=== PATIENT | male | born 1955 | race American Indian/Alaskan Native ===

== ENCOUNTER 2017-11-25 09:20 | Outpatient (CLI) | payer OTHER ==
[2017-11-25 10:16] LABS: Blood Urea Nitrogen 15 mg/dL (9-20)
--- NOTE | 2017-11-25 11:39 | Cat Scan Report ---
CT HEAD WITH AND WITHOUT CONTRAST: HISTORY: Headache, possible mass. COMPARISON: None at this facility. Serial contiguous axial images were obtained through the cranium, both before and after the administration of intravenous contrast material. Left frontotemporal craniotomy changes are identified. There is a moderate sized area of cortical encephalomalacia in the posterior left frontal lobe which appears to represent a previous surgical site. There is no evidence for abnormal enhancement following IV contrast. No mass is identified. The remaining brain parenchyma demonstrates normal attenuation. No evidence for hemorrhage or extra-axial fluid collections. No chronic infarct. Ventricular size is within normal limits. The mastoid air cells and visualized portions of the sinuses are normal. IMPRESSION: Postsurgical changes in the left posterolateral frontal lobe as described. No acute process or mass is identified.
== END 2017-11-25 09:21 | disposition home or self-care (01) ==
LOC: CT 09:20
PROVIDERS: ATTEND Nurse Practitioner
DX: Z98.890 Other specified postprocedural states (principal)
CPT/HCPCS: 36415; 70470; 82565; 84520; Q9967

== ENCOUNTER 2019-07-17 10:20 | Inpatient (IN) | payer MEDICAID ==
[2019-07-17] MEDS ORDERED: LORazepam 2 MG/ML VIAL ONE ×2 (10:38→14:45)
[2019-07-17] MEDS ORDERED: SODIUM CHLORIDE 0.9% 1000 ML 1,000 ML IV ONE (10:40)
[2019-07-17] MEDS ORDERED: LORazepam 2 MG/ML VIAL IV ONE ×3 (10:41→13:04)
--- NOTE | 2019-07-17 11:09 | XRay Report ---
CHEST 1 VIEW 10:39 AM INDICATION / CLINICAL INFORMATION: Altered mental status and weakness.. COMPARISON: 06/19/19. FINDINGS: SUPPORT DEVICES: None. HEART / MEDIASTINUM: The heart size and pulmonary vasculature are normal. The aorta is normal in beto minnie. LUNGS / PLEURA: No significant pulmonary or pleural abnormality. No pneumothorax. ADDITIONAL FINDINGS: No significant additional findings. IMPRESSION: No acute abnormality or significant change. Signer Name: Papi Messer MD Signed: 07/17/2019 11:04 AM Workstation Name: [id number]
[2019-07-17 11:23] LABS: Basophils # (Auto) 0.1 K/mm3 (0.0-0.1); Basophils % (Auto) 1.1 % (0.0-1.8); Eosinophils # (Auto) 0.1 K/mm3 (0.0-0.4); Eosinophils % (Auto) 1.3 % (0.0-4.3); Hematocrit 40.1 % (35.5-45.6); Hemoglobin 14.1 gm/dl (11.8-15.2); Lymphocytes # (Auto) 1.4 K/mm3 (1.2-5.4); Lymphocytes % (Auto) 19.3 % (13.4-35.0); Mean Corpuscular HGB Conc 35 % (32-34); Mean Corpuscular Volume 96 fl (84-94); Monocytes # (Auto) 0.4 K/mm3 (0.0-0.8); Monocytes % (Auto) 6.3 % (0.0-7.3); Platelet Count 212 K/mm3 (140-440); Red Blood Count 4.17 M/mm3 (3.65-5.03); Red Cell Distribution Width 13.5 % (13.2-15.2)
[2019-07-17 11:25] LABS: ABG Base Excess -0.4 mmol/L (-2.0-3.0); ABG HCO3 24.2 mmol/L (20.0-26.0); ABG Methemoglobin 0.5 % (0.0-1.5); ABG Oxygen Saturation 97.3 % (95.0-99.0); ABG PCO2 39.7 mm Hg; ABG PH 7.404 pH Units (7.350-7.450); ABG PO2 91.1 mm Hg (80.0-90.0)
[2019-07-17 11:46] LABS: Alanine Aminotransferase 31 units/L (7-56); Albumin 3.2 g/dL (3.9-5); BUN/Creatinine Ratio 15; Blood Urea Nitrogen 18 mg/dL (9-20); Hemolysis Index 48
[2019-07-17] MEDS ORDERED: chlordiazePOXIDE 25 MG CAP PO PRN ×2 (11:52)
[2019-07-17] MEDS ORDERED: HALOPERIDOL LACTATE 5 MG/1 ML INJ IV PRN (11:52)
[2019-07-17] MEDS ORDERED: LORazepam 2 MG/ML VIAL IV PRN ×3 (11:52)
--- NOTE | 2019-07-17 12:36 | Cat Scan Report ---
NONENHANCED CT SCAN OF THE HEAD: INDICATION / CLINICAL INFORMATION: 63 years Male; ams. TECHNIQUE: Routine CT head without contrast. All CT scans at this location are performed using CT dos e reduction for ALARA by means of automated exposure control. COMPARISON: CT scan of the head from 06/19/2019 and 11/25/2017. FINDINGS: BRAIN / INTRACRANIAL CONTENTS: CT findings remain unchanged. Bony remodeling is seen in the left parietal bone. Encephalomalacia is seen in the lateral left front al lobe, lateral anterior parietal lobe. These findings remain unchanged. No acute hemorrhage, mass effect, midline shift, hydrocephalus, or acute, large territorial infarct. Confluent periventricular low attenuation areas are seen in the lateral ventricles probably due to m ild vascular disease. CRANIOCERVICAL JUNCTION: No significant abnormality. ORBITS: Bony remodeling is seen along the medial wall of right orbit. Old healed fracture of the righ t orbital floor seen. Ocular globes and retrobulbar are spaces are normal. SINUSES / MASTOIDS: No significant abnormality of the visualized paranasal sinuses or mastoid air gagandeep ls. ADDITIONAL FINDINGS: None. IMPRESSION: CT findings remain unchanged No acute parenchymal lesion Encephalomalacia in the left lateral frontal and parietal lobes Signer Name: Jean Paul Lu MD Signed: 07/17/2019 12:32 PM Workstation Name: [id number]
[2019-07-17 12:46] LABS: INR 0.92 (0.87-1.13); Partial Thromboplastin Time 26.2 Sec. (24.2-36.6)
[2019-07-17 12:54] LABS: Bilirubin,Urine NEG (Negative); Blood,Urine SM (Negative); Color,Urine Straw (Yellow); Urobilinogen,Urine < 2.0 mg/dL (<2.0); WBC,Urine < 1.0 /HPF (0.0-6.0)
[2019-07-17 12:56] LABS: Amphetamine Screen,Urine PRESUMPTIVE NEGATIVE; Benzodiazepines Screen,Urine PRESUMPTIVE NEGATIVE; Cannabinoid Screen,Urine PRESUMPTIVE NEGATIVE; Methadone Screen,Urine PRESUMPTIVE NEGATIVE; Opiate Screen,Urine PRESUMPTIVE NEGATIVE
--- NOTE | 2019-07-17 13:04 | Emergency Department Report ---
ED General Adult HPI - General Chief complaint: Hyperglycemia Stated complaint: HYPERGLYCEMIA Time Seen by Provider: 07/17/19 10:37 Source: EMS Mode of arrival: Stretcher Limitations: No Limitations - History of Present Illness Initial comments: The patient presents to the emergency department via EMS with a chief complaint initially of right upper extremity numbness that started 3 days ago. Upon the patient's arrival to emergency department he began to have seizure-like activity. Patient does not have a history of seizures. Upon the patient being treated for the seizure he became responsive and informed us that he drinks alcohol daily and his last drink was yesterday. Patient also had elevated glucose on initial presentation. Patient denies chest pain, shortness breath, headache. -: Gradual Location: upper extremity Radiation: non-radiation Quality: other (numbness) Consistency: constant Improves with: none Worsens with: none Associated Symptoms: denies other symptoms Treatments Prior to Arrival: none - Related Data Previous Rx's Medication Instructions Recorded Last Taken Type FLUoxetine [PROzac] 20 mg PO QDAY #14 capsule 06/23/19 Unknown Rx Insulin NPH, Human [NovoLIN N] 20 unit SUB-Q BIDDIAB 30 Days #10 06/23/19 Unknown Rx ml traZODone [Desyrel] 50 mg PO QHS #10 tablet 06/23/19 Unknown Rx Folic Acid 1 mg PO DAILY #30 tablet 06/25/19 Unknown Rx Nicotine [Habitrol] 14 mg TD DAILY #30 patch 06/25/19 Unknown Rx Thiamine [Vitamin B-1] 100 mg PO QDAY #30 tablet 06/25/19 Unknown Rx Allergies Allergy/AdvReac Type Severity Reaction Status Date / Time No Known Allergies Allergy Verified 06/19/19 17:53 ED Review of Systems ROS: Stated complaint: HYPERGLYCEMIA Other details as noted in HPI Comment: All other systems reviewed and negative Constitutional: denies: chills, fever Eyes: denies: eye pain, eye discharge, vision change ENT: denies: ear pain, throat pain Respiratory: denies: cough, shortness of breath, wheezing Cardiovascular: denies: chest pain, palpitations Endocrine: no symptoms reported Gastrointestinal: denies: abdominal pain, nausea, diarrhea Genitourinary: denies: urgency, dysuria Musculoskeletal: denies: back pain, joint swelling, arthralgia Skin: denies: rash, lesions Neurological: denies: headache, weakness, paresthesias Psychiatric: denies: anxiety, depression Hematological/Lymphatic: denies: easy bleeding, easy bruising ED Past Medical Hx - Past Medical History Hx Hypertension: Yes Hx Diabetes: Yes Hx Psychiatric Treatment: Yes (Paranoid Schizophrenia) - Social History Smoking Status: Current Every Day Smoker Substance Use Type: Alcohol, Cocaine - Medications Home Medications: Home Medications Medication Instructions Recorded Confirmed Last Taken Type FLUoxetine [PROzac] 20 mg PO QDAY #14 capsule 06/23/19 Unknown Rx Insulin NPH, Human [NovoLIN N] 20 unit SUB-Q BIDDIAB 30 Days #10 06/23/19 Unknown Rx ml traZODone [Desyrel] 50 mg PO QHS #10 tablet 06/23/19 Unknown Rx Folic Acid 1 mg PO DAILY #30 tablet 06/25/19 Unknown Rx Nicotine [Habitrol] 14 mg TD DAILY #30 patch 06/25/19 Unknown Rx Thiamine [Vitamin B-1] 100 mg PO QDAY #30 tablet 06/25/19 Unknown Rx ED Physical Exam - General Limitations: No Limitations General appearance: alert, in no apparent distress - Head Head exam: Present: atraumatic, normocephalic - Eye Eye exam: Present: normal appearance, PERRL, EOMI - ENT ENT exam: Present: mucous membranes moist - Neck Neck exam: Present: normal inspection - Respiratory Respiratory exam: Present: normal lung sounds bilaterally. Absent: respiratory distress - Cardiovascular Cardiovascular Exam: Present: regular rate, normal rhythm. Absent: systolic murmur, diastolic murmur, rubs, gallop - GI/Abdominal GI/Abdominal exam: Present: soft, normal bowel sounds. Absent: distended, tenderness - Rectal Rectal exam: Present: deferred - Extremities Exam Extremities exam: Present: normal inspection - Back Exam Back exam: Present: normal inspection - Neurological Exam Neurological exam: Present: alert, oriented X3, CN II-XII intact. Absent: motor sensory deficit - Psychiatric Psychiatric exam: Present: normal affect, normal mood - Skin Skin exam: Present: warm, dry, intact, normal color. Absent: rash ED Course Vital Signs 07/17/19 07/17/19 07/17/19 10:32 10:42 10:45 Temperature 98 F Pulse Rate 97 H 96 H 97 H Respiratory 11 L 11 L 11 L Rate Blood Pressure 190/112 190/112 O2 Sat by Pulse 97 98 Oximetry 07/17/19 07/17/19 07/17/19 11:00 11:14 11:34 Temperature Pulse Rate 93 H 94 H Respiratory 15 11 L Rate Blood Pressure 204/130 O2 Sat by Pulse 96 94 Oximetry 07/17/19 07/17/19 07/17/19 11:45 12:00 12:15 Temperature Pulse Rate 96 H 95 H 94 H Respiratory 13 13 12 Rate Blood Pressure 195/124 204/129 190/106 O2 Sat by Pulse 100 Oximetry ED Medical Decision Making - Lab Data Result diagrams: 07/17/19 10:59 07/17/19 10:59 Lab Results 07/17/19 07/17/19 07/17/19 Range/Units 10:59 10:59 11:00 WBC 7.1 (4.5-11.0) K/mm3 RBC 4.17 (3.65-5.03) M/mm3 Hgb 14.1 (11.8-15.2) gm/dl Hct 40.1 (35.5-45.6) % MCV 96 H (84-94) fl MCH 34 H (28-32) pg MCHC 35 H (32-34) % RDW 13.5 (13.2-15.2) % Plt Count 212 (140-440) K/mm3 Lymph % (Auto) 19.3 (13.4-35.0) % [place] % (Auto) 6.3 (0.0-7.3) % Eos % (Auto) 1.3 (0.0-4.3) % Baso % (Auto) 1.1 (0.0-1.8) % Lymph # 1.4 (1.2-5.4) K/mm3 [place] # 0.4 (0.0-0.8) K/mm3 Eos # 0.1 (0.0-0.4) K/mm3 Baso # 0.1 (0.0-0.1) K/mm3 Seg Neutrophils % 72.0 H (40.0-70.0) % Seg Neutrophils # 5.1 (1.8-7.7) K/mm3 PT (12.2-14.9) Sec. INR (0.87-1.13) APTT (24.2-36.6) Sec. ABG pH 7.404 (7.350-7.450) pH Units ABG pCO2 39.7 mm Hg ABG pO2 91.1 H (80.0-90.0) mm Hg ABG HCO3 24.2 (20.0-26.0) mmol/L ABG O2 Saturation 97.3 (95.0-99.0) % ABG O2 Content 17.5 (0.0-44) ABG Base Excess -0.4 (-2.0-3.0) mmol/L ABG Hemoglobin 13.2 L (14.0-18.0) gm/dl ABG Carboxyhemoglobin 3.4 (0.0-5.0) % ABG Methemoglobin 0.5 (0.0-1.5) % Oxyhemoglobin 93.5 L (95.0-99.0) % FiO2 32 % Sodium 136 L (137-145) mmol/L Potassium 4.1 (3.6-5.0) mmol/L Chloride 97.9 L (98-107) mmol/L Carbon Dioxide 21 L (22-30) mmol/L Anion Gap 21 mmol/L BUN 18 (9-20) mg/dL Creatinine 1.2 (0.8-1.5) mg/dL Estimated GFR > 60 ml/min BUN/Creatinine Ratio 15 % Glucose 465 H (75-100) mg/dL POC Glucose (70-105) Lactic Acid (0.7-2.0) mmol/L Calcium 9.0 (8.4-10.2) mg/dL Phosphorus 2.90 (2.5-4.5) mg/dL Magnesium 1.90 (1.7-2.3) mg/dL Total Bilirubin 0.50 (0.1-1.2) mg/dL AST 51 H (5-40) units/L ALT 31 (7-56) units/L Alkaline Phosphatase 183 H (35-129) units/L Troponin T 0.012 (0.00-0.029) ng/mL NT-Pro-B Natriuret Pep 1105 H (0-900) pg/mL Total Protein 6.3 (6.3-8.2) g/dL Albumin 3.2 L (3.9-5) g/dL Albumin/Globulin Ratio 1.0 % Urine Color (Yellow) Urine Turbidity (Clear) Urine pH (5.0-7.0) Ur Specific [place] (1.003-1.030) Urine Protein (Negative) mg/dL Urine Glucose (UA) (Negative) mg/dL Urine Ketones (Negative) mg/dL Urine Blood (Negative) Urine Nitrite (Negative) Urine Bilirubin (Negative) Urine Urobilinogen (<2.0) mg/dL Ur Leukocyte Esterase (Negative) Urine WBC (Auto) (0.0-6.0) /HPF Urine RBC (Auto) (0.0-6.0) /HPF U Epithel Cells (Auto) (0-13.0) /HPF Urine Opiates Screen Urine Methadone Screen Ur Barbiturates Screen Ur Phencyclidine Scrn Ur Amphetamines Screen U Benzodiazepines Scrn U Marijuana (THC) Screen Drugs of Abuse Note Plasma/Serum Alcohol (0-0.07) % 07/17/19 07/17/19 07/17/19 Range/Units 11:16 11:53 11:53 WBC (4.5-11.0) K/mm3 RBC (3.65-5.03) M/mm3 Hgb (11.8-15.2) gm/dl Hct (35.5-45.6) % MCV (84-94) fl MCH (28-32) pg MCHC (32-34) % RDW (13.2-15.2) % Plt Count (140-440) K/mm3 Lymph % (Auto) (13.4-35.0) % [place] % (Auto) (0.0-7.3) % Eos % (Auto) (0.0-4.3) % Baso % (Auto) (0.0-1.8) % Lymph # (1.2-5.4) K/mm3 [place] # (0.0-0.8) K/mm3 Eos # (0.0-0.4) K/mm3 Baso # (0.0-0.1) K/mm3 Seg Neutrophils % (40.0-70.0) % Seg Neutrophils # (1.8-7.7) K/mm3 PT 12.5 (12.2-14.9) Sec. INR 0.92 (0.87-1.13) APTT 26.2 (24.2-36.6) Sec. ABG pH (7.350-7.450) pH Units ABG pCO2 mm Hg ABG pO2 (80.0-90.0) mm Hg ABG HCO3 (20.0-26.0) mmol/L ABG O2 Saturation (95.0-99.0) % ABG O2 Content (0.0-44) ABG Base Excess (-2.0-3.0) mmol/L ABG Hemoglobin (14.0-18.0) gm/dl ABG Carboxyhemoglobin (0.0-5.0) % ABG Methemoglobin (0.0-1.5) % Oxyhemoglobin (95.0-99.0) % FiO2 % Sodium (137-145) mmol/L Potassium (3.6-5.0) mmol/L Chloride (98-107) mmol/L Carbon Dioxide (22-30) mmol/L Anion Gap mmol/L BUN (9-20) mg/dL Creatinine (0.8-1.5) mg/dL Estimated GFR ml/min BUN/Creatinine Ratio % Glucose (75-100) mg/dL POC Glucose 434 H (70-105) Lactic Acid (0.7-2.0) mmol/L Calcium (8.4-10.2) mg/dL Phosphorus (2.5-4.5) mg/dL Magnesium (1.7-2.3) mg/dL Total Bilirubin (0.1-1.2) mg/dL AST (5-40) units/L ALT (7-56) units/L Alkaline Phosphatase (35-129) units/L Troponin T < 0.010 (0.00-0.029) ng/mL NT-Pro-B Natriuret Pep (0-900) pg/mL Total Protein (6.3-8.2) g/dL Albumin (3.9-5) g/dL Albumin/Globulin Ratio % Urine Color (Yellow) Urine Turbidity (Clear) Urine pH (5.0-7.0) Ur Specific [place] (1.003-1.030) Urine Protein (Negative) mg/dL Urine Glucose (UA) (Negative) mg/dL Urine Ketones (Negative) mg/dL Urine Blood (Negative) Urine Nitrite (Negative) Urine Bilirubin (Negative) Urine Urobilinogen (<2.0) mg/dL Ur Leukocyte Esterase (Negative) Urine WBC (Auto) (0.0-6.0) /HPF Urine RBC (Auto) (0.0-6.0) /HPF U Epithel Cells (Auto) (0-13.0) /HPF Urine Opiates Screen Urine Methadone Screen Ur Barbiturates Screen Ur Phencyclidine Scrn Ur Amphetamines Screen U Benzodiazepines Scrn U Marijuana (THC) Screen Drugs of Abuse Note Plasma/Serum Alcohol (0-0.07) % 07/17/19 07/17/19 07/17/19 Range/Units 11:53 11:53 12:14 WBC (4.5-11.0) K/mm3 RBC (3.65-5.03) M/mm3 Hgb (11.8-15.2) gm/dl Hct (35.5-45.6) % MCV (84-94) fl MCH (28-32) pg MCHC (32-34) % RDW (13.2-15.2) % Plt Count (140-440) K/mm3 Lymph % (Auto) (13.4-35.0) % [place] % (Auto) (0.0-7.3) % Eos % (Auto) (0.0-4.3) % Baso % (Auto) (0.0-1.8) % Lymph # (1.2-5.4) K/mm3 [place] # (0.0-0.8) K/mm3 Eos # (0.0-0.4) K/mm3 Baso # (0.0-0.1) K/mm3 Seg Neutrophils % (40.0-70.0) % Seg Neutrophils # (1.8-7.7) K/mm3 PT (12.2-14.9) Sec. INR (0.87-1.13) APTT (24.2-36.6) Sec. ABG pH (7.350-7.450) pH Units ABG pCO2 mm Hg ABG pO2 (80.0-90.0) mm Hg ABG HCO3 (20.0-26.0) mmol/L ABG O2 Saturation (95.0-99.0) % ABG O2 Content (0.0-44) ABG Base Excess (-2.0-3.0) mmol/L ABG Hemoglobin (14.0-18.0) gm/dl ABG Carboxyhemoglobin (0.0-5.0) % ABG Methemoglobin (0.0-1.5) % Oxyhemoglobin (95.0-99.0) % FiO2 % Sodium (137-145) mmol/L Potassium (3.6-5.0) mmol/L Chloride (98-107) mmol/L Carbon Dioxide (22-30) mmol/L Anion Gap mmol/L BUN (9-20) mg/dL Creatinine (0.8-1.5) mg/dL Estimated GFR ml/min BUN/Creatinine Ratio % Glucose (75-100) mg/dL POC Glucose (70-105) Lactic Acid 1.70 (0.7-2.0) mmol/L Calcium (8.4-10.2) mg/dL Phosphorus (2.5-4.5) mg/dL Magnesium (1.7-2.3) mg/dL Total Bilirubin (0.1-1.2) mg/dL AST (5-40) units/L ALT (7-56) units/L Alkaline Phosphatase (35-129) units/L Troponin T (0.00-0.029) ng/mL NT-Pro-B Natriuret Pep (0-900) pg/mL Total Protein (6.3-8.2) g/dL Albumin (3.9-5) g/dL Albumin/Globulin Ratio % Urine Color Straw (Yellow) Urine Turbidity Clear (Clear) Urine pH 7.0 (5.0-7.0) Ur Specific [place] 1.017 (1.003-1.030) Urine Protein 100 mg/dl (Negative) mg/dL Urine Glucose (UA) >=500 (Negative) mg/dL Urine Ketones Tr (Negative) mg/dL Urine Blood Sm (Negative) Urine Nitrite Neg (Negative) Urine Bilirubin Neg (Negative) Urine Urobilinogen < 2.0 (<2.0) mg/dL Ur Leukocyte Esterase Neg (Negative) Urine WBC (Auto) < 1.0 (0.0-6.0) /HPF Urine RBC (Auto) 1.0 (0.0-6.0) /HPF U Epithel Cells (Auto) < 1.0 (0-13.0) /HPF Urine Opiates Screen Urine Methadone Screen Ur Barbiturates Screen Ur Phencyclidine Scrn Ur Amphetamines Screen U Benzodiazepines Scrn U Marijuana (THC) Screen Drugs of Abuse Note Plasma/Serum Alcohol < 0.01 (0-0.07) % 07/17/19 Range/Units 12:14 WBC (4.5-11.0) K/mm3 RBC (3.65-5.03) M/mm3 Hgb (11.8-15.2) gm/dl Hct (35.5-45.6) % MCV (84-94) fl MCH (28-32) pg MCHC (32-34) % RDW (13.2-15.2) % Plt Count (140-440) K/mm3 Lymph % (Auto) (13.4-35.0) % [place] % (Auto) (0.0-7.3) % Eos % (Auto) (0.0-4.3) % Baso % (Auto) (0.0-1.8) % Lymph # (1.2-5.4) K/mm3 [place] # (0.0-0.8) K/mm3 Eos # (0.0-0.4) K/mm3 Baso # (0.0-0.1) K/mm3 Seg Neutrophils % (40.0-70.0) % Seg Neutrophils # (1.8-7.7) K/mm3 PT (12.2-14.9) Sec. INR (0.87-1.13) APTT (24.2-36.6) Sec. ABG pH (7.350-7.450) pH Units ABG pCO2 mm Hg ABG pO2 (80.0-90.0) mm Hg ABG HCO3 (20.0-26.0) mmol/L ABG O2 Saturation (95.0-99.0) % ABG O2 Content (0.0-44) ABG Base Excess (-2.0-3.0) mmol/L ABG Hemoglobin (14.0-18.0) gm/dl ABG Carboxyhemoglobin (0.0-5.0) % ABG Methemoglobin (0.0-1.5) % Oxyhemoglobin (95.0-99.0) % FiO2 % Sodium (137-145) mmol/L Potassium (3.6-5.0) mmol/L Chloride (98-107) mmol/L Carbon Dioxide (22-30) mmol/L Anion Gap mmol/L BUN (9-20) mg/dL Creatinine (0.8-1.5) mg/dL Estimated GFR ml/min BUN/Creatinine Ratio % Glucose (75-100) mg/dL POC Glucose (70-105) Lactic Acid (0.7-2.0) mmol/L Calcium (8.4-10.2) mg/dL Phosphorus (2.5-4.5) mg/dL Magnesium (1.7-2.3) mg/dL Total Bilirubin (0.1-1.2) mg/dL AST (5-40) units/L ALT (7-56) units/L Alkaline Phosphatase (35-129) units/L Troponin T (0.00-0.029) ng/mL NT-Pro-B Natriuret Pep (0-900) pg/mL Total Protein (6.3-8.2) g/dL Albumin (3.9-5) g/dL Albumin/Globulin Ratio % Urine Color (Yellow) Urine Turbidity (Clear) Urine pH (5.0-7.0) Ur Specific [place] (1.003-1.030) Urine Protein (Negative) mg/dL Urine Glucose (UA) (Negative) mg/dL Urine Ketones (Negative) mg/dL Urine Blood (Negative) Urine Nitrite (Negative) Urine Bilirubin (Negative) Urine Urobilinogen (<2.0) mg/dL Ur Leukocyte Esterase (Negative) Urine WBC (Auto) (0.0-6.0) /HPF Urine RBC (Auto) (0.0-6.0) /HPF U Epithel Cells (Auto) (0-13.0) /HPF Urine Opiates Screen Presumptive negative Urine Methadone Screen Presumptive negative Ur Barbiturates Screen Presumptive negative Ur Phencyclidine Scrn Presumptive negative Ur Amphetamines Screen Presumptive negative U Benzodiazepines Scrn Presumptive negative U Marijuana (THC) Screen Presumptive negative Drugs of Abuse Note Disclamer Plasma/Serum Alcohol (0-0.07) % - Radiology Data Radiology results: report reviewed - Medical Decision Making Patient had a witnessed seizure x2 in the emergency department will loss control of bladder Patient given 2 doses of Ativan IV for the seizure activity. Patient placed on CIWA protocol as it was discovered that he drinks daily with the last drink being yesterday Critical care attestation.: If time is entered above; I have spent that time in minutes in the direct care of this critically ill patient, excluding procedure time. ED Disposition Clinical Impression: Numbness, Observed seizure-like activity Disposition: OP ADMIT IP TO THIS HOSP Is pt being admited?: Yes Does the pt Need Aspirin: Yes Condition: Fair
[2019-07-17 13:12] LABS: Cocaine Screen,Urine PRESUMPTIVE POSITIVE
[2019-07-17] MEDS ORDERED: ASPIRIN 81 MG TAB CHEW PO ONE (13:30)
--- NOTE | 2019-07-17 13:38 | History and Physical Report ---
History of Present Illness Chief complaint: I feel weak on my, right side History of present illness: 63 YO Male with ETOH Dependence, Cocaine Dependence, HTN, DM, Nicotine Dependence.Paranoid Schhizophrenia presents to ED for evaluation. Patient states that he was in his usual state of health approximately 3 days ago. Patient states that around that time he experienced a sudden onset of weakness in his right upper extremity, slurred speech and right-sided weakness. Patient states that he thought he was having a seizure. Patient also reports persistent symptoms over the same timeframe. EMS notified and upon arrival the patient was found to be in distress and subsequently transported to [facility] for further osman luation and care. Patient seen and evaluated in the emergency department. Lab and imaging studies reviewed. Patient found to have neurologic deficit over the past 3 days. But the patient is deemed outside the therapeutic window for TPA. Patient also found to have blood pressure of 204/130, as well as symptoms consistent with alcohol withdrawal seizures, Cocaine dependence. Patient denies fever, chills, chest pain, palpitations, nausea, and vomiting, diarrhea, trauma, skin rash, or recent ill contacts. Prior admission on 06/19/2019 reviewed. All listed medication reconciled at time of admission. UPon reevaluation after a reported fall in the ED, the patient is more confused/lethargic and unable to provide detailed history. Pt found to have Encephalopathy. Patient admitted to [facility] and initiated on CVA protocol as well as alcohol withdrawal protocol. Advanced care planning conducted in ED. Past History Past Medical History: diabetes, hypertension Past Surgical History: No surgical history, Other (Reviewed) Social history: , smoking, alcohol abuse Family history: diabetes, hypertension Medications and Allergies Allergies Allergy/AdvReac Type Severity Reaction Status Date / Time No Known Allergies Allergy Verified 06/19/19 17:53 Home Medications Medication Instructions Recorded Confirmed Last Taken Type FLUoxetine [PROzac] 20 mg PO QDAY #14 capsule 06/23/19 Unknown Rx Insulin NPH, Human [NovoLIN N] 20 unit SUB-Q BIDDIAB 30 Days #10 06/23/19 Unknown Rx ml traZODone [Desyrel] 50 mg PO QHS #10 tablet 06/23/19 Unknown Rx Folic Acid 1 mg PO DAILY #30 tablet 06/25/19 Unknown Rx Nicotine [Habitrol] 14 mg TD DAILY #30 patch 06/25/19 Unknown Rx Thiamine [Vitamin B-1] 100 mg PO QDAY #30 tablet 06/25/19 Unknown Rx Active Meds: Active Medications Chlordiazepoxide HCl (Librium) 50 mg PO Q1H PRN PRN Reason: CIWA-Ar 8-15 Chlordiazepoxide HCl (Librium) 100 mg PO Q1H PRN PRN Reason: CI-Ar 16-25 Haloperidol Lactate (Haldol) 5 mg IV Q1H PRN PRN Reason: Unrespon. to mult. doses BZD's Lorazepam (Ativan) 2 mg IV Q1H PRN PRN Reason: CI-Ar 8-15 Lorazepam (Ativan) 4 mg IV Q1H PRN PRN Reason: CI-Ar 16-25 Lorazepam (Ativan) 4 mg IV Q15MIN PRN PRN Reason: CIWA-Ar >25 Review of Systems Constitutional: no weight loss, no weight gain, no fever, no chills Ears, nose, mouth and throat: no ear pain, no ear discharge, no tinnitis, no decreased hearing, no nose pain, no nasal congestion Cardiovascular: no chest pain, no orthopnea, no palpitations, no rapid/irregular heart beat, no syncope Respiratory: no cough, no cough with sputum Gastrointestinal: nausea, no constipation, no hematemesis, no coffee ground emesis Genitourinary Male: no hematuria, no flank pain, no urinary frequency, no nocturia Rectal: no pain, no incontinence, no bleeding Musculoskeletal: no neck stiffness, no neck pain, no shooting arm pain, no arm numbness/tingling, no low back pain, no leg numbness/tingling Integumentary: no rash, no pruritis, no sores Neurological: weakness, seizures, change in speech, gait dysfunction, motor dist urbance, no numbness, no tingling, no headaches Psychiatric: no anxiety, no memory loss, no change in sleep habits, no sleep disturbances, no insomnia (Frustrated), no hypersomnia Endocrine: no cold intolerance, no heat intolerance, no polyphagia, no excessive thirst, no polydipsia Hematologic/Lymphatic: no easy bruising, no easy bleeding, no lymphadenopathy, no lymphedema, no other (Admission orders) Allergic/Immunologic: no urticaria, no persistent infections, no anaphylaxis, no gluten intolerance Exam - Constitutional Vitals: Temp Pulse Resp BP Pulse Ox 98 F 94 H 12 190/106 100 07/17/19 10:32 07/17/19 12:15 07/17/19 12:15 07/17/19 12:15 07/17/19 12:15 General appearance: Present: mild distress - EENT Eyes: Present: PERRL ENT: hearing intact, clear oral mucosa - Neck Neck: Present: supple, normal ROM - Respiratory Respiratory effort: normal Respiratory: bilateral: CTA - Cardiovascular Heart Sounds: Present: S1 & S2. Absent: rub, click - Extremities Extremities: pulses symmetrical, No edema Peripheral Pulses: within normal limits - Abdominal General gastrointestinal: Present: soft, non-tender, non-distended, normal bowel sounds Male genitourinary: Present: normal - Integumentary Integumentary: Present: clear, warm, dry - Musculoskeletal Musculoskeletal: gait normal, strength equal bilaterally - Psychiatric Psychiatric: appropriate mood/affect, intact judgment & insight - Neurologic Neurologic: CNII-XII intact, moves all extremities Results - Labs CBC & Chem 7: 07/17/19 10:59 07/17/19 10:59 Labs: Abnormal lab results 07/17/19 07/17/19 07/17/19 Range/Units 10:59 10:59 11:00 MCV 96 H (84-94) fl MCH 34 H (28-32) pg MCHC 35 H (32-34) % Seg Neutrophils % 72.0 H (40.0-70.0) % ABG pO2 91.1 H (80.0-90.0) mm Hg ABG Hemoglobin 13.2 L (14.0-18.0) gm/dl Oxyhemoglobin 93.5 L (95.0-99.0) % Sodium 136 L (137-145) mmol/L Chloride 97.9 L (98-107) mmol/L Carbon Dioxide 21 L (22-30) mmol/L Glucose 465 H (75-100) mg/dL POC Glucose (70-105) AST 51 H (5-40) units/L Alkaline Phosphatase 183 H (35-129) units/L NT-Pro-B Natriuret Pep 1105 H (0-900) pg/mL Albumin 3.2 L (3.9-5) g/dL 07/17/19 07/17/19 Range/Units 11:16 13:08 MCV (84-94) fl MCH (28-32) pg MCHC (32-34) % Seg Neutrophils % (40.0-70.0) % ABG pO2 (80.0-90.0) mm Hg ABG Hemoglobin (14.0-18.0) gm/dl Oxyhemoglobin (95.0-99.0) % Sodium (137-145) mmol/L Chloride (98-107) mmol/L Carbon Dioxide (22-30) mmol/L Glucose (75-100) mg/dL POC Glucose 434 H 427 H (70-105) AST (5-40) units/L Alkaline Phosphatase (35-129) units/L NT-Pro-B Natriuret Pep (0-900) pg/mL Albumin (3.9-5) g/dL Assessment and Plan - Patient Problems (1) CVA (cerebral vascular accident) Current Visit: Yes Status: Acute Qualifiers: Precerebral and cerebral artery: middle cerebral artery Laterality of affected vessel: left Plan to address problem: CVA protocol: Admit to IMCU, CT head, neuro check, aspiration precaution, seizure precaution, echocardiogram, carotid Doppler, antiplatelet therapy, physical therapy, Occupational Therapy, speech therapy, lipid therapy, statin therapy. (2) Nicotine dependence Current Visit: Yes Status: Acute Qualifiers: Nicotine product type: cigarettes Substance use status: in withdrawal Qualified Code(s): F17.213 - Nicotine dependence, cigarettes, with withdrawal Plan to address problem: Supportive care, smoking cessation counseling, +15 minutes. (3) Alcohol withdrawal seizure Current Visit: Yes Status: Acute Qualifiers: Complication of substance-induced condition: with perceptual disturbance Qualified Code(s): F10.232 - Alcohol dependence with withdrawal with perceptual disturbance Plan to address problem: CIWA protocol, thiamine, folic acid, multivitamin, neuro check, seizure precautions, supportive care., Blood alcohol level. (4) Cardiomyopathy Current Visit: Yes Status: Acute Plan to address problem: Echo, supportive care, thyroid panel, magnesium level, BNP, submental oxygen, pulse oximetry, chest x-ray. (5) Diabetes Current Visit: Yes Status: Acute Plan to address problem: Sliding scale insulin, Accu-Chek, consistent carbohydrate diet when alert and awake only, hypoglycemia protocol. (6) Cocaine abuse Current Visit: No Status: Acute Plan to address problem: Supportive care, outpatient drug abuse counseling, +15 minutes. (7) Hypertension Current Visit: No Status: Acute Qualifiers: Hypertension type: essential hypertension Qualified Code(s): I10 - Essential (primary) hypertension Plan to address problem: Permissive hypertension overnight, monitor blood pressure every shift, supportive care. Goal systolic blood pressure between 165 and 185 overnight., IV hydralazine every 6 hours as needed for systolic greater than 185. (8) DVT prophylaxis Current Visit: Yes Status: Acute Plan to address problem: SCD to bilateral lower extremities while in bed, prophylactic heparin. (9) Advance care planning Current Visit: Yes Status: Acute Plan to address problem: Patient is full code, disease education conducted in the emergency department, patient knowledges understanding and agreement with current care plan, +30 minutes.
[2019-07-17] MEDS ORDERED: DEXTROSE 50% IN WATER (25GM) 50 ML SYRINGE IV PRN (13:40)
[2019-07-17] MEDS ORDERED: ACETAMINOPHEN 325 MG TAB PO PRN (13:42)
[2019-07-17] MEDS ORDERED: MAGNESIUM HYDROXIDE (MOM) ORAL LIQD UDC PO PRN (13:42)
[2019-07-17] MEDS ORDERED: METOCLOPRAMIDE 10 MG TAB PO PRN (13:42)
[2019-07-17] MEDS ORDERED: PROMETHAZINE 25 MG RECT SUPP PR PRN (13:42)
[2019-07-17] MEDS ORDERED: ONDANSETRON 4 MG/2 ML INJ IV PRN (13:42)
[2019-07-17] MEDS: INSULIN LISPRO 100 UNIT/ML SUB-Q SCH ×2 (14:00→18:03)
[2019-07-17] MEDS ORDERED: THIAMINE 100 MG, FOLIC ACID 1 MG, MULTIPLE VITAMIN INJ, ADULT 10 ML in SODIUM CHLORIDE ... IV ONE (15:00)
[2019-07-17 16:55] LABS: Free T4 (Free Thyroxine) 1.16 ng/dL (0.76-1.46)
[2019-07-17] MEDS: NICOTINE 14 MG/24 HR PATCH TD SCH (17:00)
[2019-07-17] MEDS: levETIRAcetam 500 MG in DEXTROSE 5% IN WATER 100 ML IV SCH (18:02)
[2019-07-18] MEDS ORDERED: SODIUM CHLORIDE 0.9% 1000 ML 1,000 ML IV ONE (02:10)
[2019-07-18] MEDS: INSULIN LISPRO 100 UNIT/ML SUB-Q SCH ×4 (02:35→18:04)
[2019-07-18] MEDS: traZODone 50 MG TAB PO SCH ×2 (02:36→22:04)
[2019-07-18 06:01] LABS: Chol/HDL Ratio 3.41 %
--- NOTE | 2019-07-18 08:45 | Progress Note ---
Subjective Date of service: 07/18/19 Interval history: consult note went over the CT of the head and there is rather large ischemic stroke left MCA erritory extensive with edema of the deep white matter and some re=flow cortical hyperperfision notes suspect stroke is 3-4 days or older b/c of the rather distinct subacute findings will go over the chart for confirmation and leave another note thanks Objective - Vital Sign Vital Signs - 12hr 07/17/19 07/17/19 07/17/19 20:50 21:00 21:10 Temperature Pulse Rate 89 88 88 Pulse Rate [ From Monitor] Respiratory 26 H 11 L 11 L Rate Blood Pressure 158/89 151/92 151/92 O2 Sat by Pulse 100 100 100 Oximetry 07/17/19 07/17/19 07/17/19 21:20 21:30 21:40 Temperature Pulse Rate 87 87 87 Pulse Rate [ From Monitor] Respiratory 11 L 10 L 11 L Rate Blood Pressure 156/89 146/94 146/94 O2 Sat by Pulse 100 100 100 Oximetry 07/17/19 07/17/19 07/17/19 21:50 22:00 22:10 Temperature Pulse Rate 87 88 89 Pulse Rate [ From Monitor] Respiratory 11 L 11 L 9 L Rate Blood Pressure 151/91 152/87 152/87 O2 Sat by Pulse 100 100 100 Oximetry 07/17/19 07/17/19 07/17/19 22:16 22:20 22:30 Temperature Pulse Rate 87 87 86 Pulse Rate [ From Monitor] Respiratory 12 11 L 11 L Rate Blood Pressure 156/94 156/94 149/92 O2 Sat by Pulse 100 100 100 Oximetry 07/17/19 07/17/19 07/17/19 22:40 22:50 23:00 Temperature Pulse Rate 87 86 87 Pulse Rate [ From Monitor] Respiratory 11 L 11 L 10 L Rate Blood Pressure 149/92 147/91 150/90 O2 Sat by Pulse 100 100 Oximetry 07/17/19 07/17/19 07/17/19 23:10 23:20 23:30 Temperature Pulse Rate 86 86 87 Pulse Rate [ From Monitor] Respiratory 11 L 11 L 11 L Rate Blood Pressure 150/90 144/87 138/87 O2 Sat by Pulse 100 100 100 Oximetry 07/17/19 07/17/19 07/18/19 23:40 23:50 00:00 Temperature 97.3 F L Pulse Rate 86 85 87 Pulse Rate [ 84 From Monitor] Respiratory 11 L 10 L 12 Rate Blood Pressure 138/87 151/90 140/88 O2 Sat by Pulse 100 100 100 Oximetry 07/18/19 07/18/19 07/18/19 00:06 00:10 00:20 Temperature 97.3 F L Pulse Rate 88 87 Pulse Rate [ From Monitor] Respiratory 11 L 11 L Rate Blood Pressure 140/88 136/84 O2 Sat by Pulse 100 100 Oximetry 07/18/19 07/18/19 07/18/19 00:30 00:40 00:50 Temperature Pulse Rate 88 89 88 Pulse Rate [ From Monitor] Respiratory 10 L 11 L 10 L Rate Blood Pressure 157/93 157/93 157/93 O2 Sat by Pulse 100 100 100 Oximetry 07/18/19 07/18/19 07/18/19 01:00 01:10 01:20 Temperature Pulse Rate 87 88 87 Pulse Rate [ From Monitor] Respiratory 10 L 11 L 10 L Rate Blood Pressure 153/89 153/89 147/88 O2 Sat by Pulse 100 100 100 Oximetry 07/18/19 07/18/19 07/18/19 01:30 01:40 01:50 Temperature Pulse Rate 87 86 89 Pulse Rate [ From Monitor] Respiratory 10 L 11 L 11 L Rate Blood Pressure 145/85 153/89 154/85 O2 Sat by Pulse 100 100 100 Oximetry 07/18/19 07/18/19 07/18/19 02:00 02:10 02:20 Temperature Pulse Rate 86 90 90 Pulse Rate [ From Monitor] Respiratory 14 12 11 L Rate Blood Pressure 158/92 158/92 164/96 O2 Sat by Pulse 100 100 100 Oximetry 07/18/19 07/18/19 07/18/19 02:30 02:40 02:50 Temperature Pulse Rate 97 H 90 91 H Pulse Rate [ From Monitor] Respiratory 13 16 11 L Rate Blood Pressure 175/103 175/103 167/96 O2 Sat by Pulse 100 100 100 Oximetry 07/18/19 07/18/19 07/18/19 03:00 03:10 03:20 Temperature Pulse Rate 91 H 94 H 92 H Pulse Rate [ From Monitor] Respiratory 12 10 L 15 Rate Blood Pressure 153/98 153/98 160/94 O2 Sat by Pulse 100 100 100 Oximetry 07/18/19 07/18/19 07/18/19 03:30 03:40 03:50 Temperature Pulse Rate 93 H 92 H 89 Pulse Rate [ From Monitor] Respiratory 19 14 16 Rate Blood Pressure 159/104 159/104 156/99 O2 Sat by Pulse 100 100 100 Oximetry 07/18/19 07/18/19 07/18/19 04:00 04:10 04:20 Temperature 97.4 F L Pulse Rate 91 H 90 92 H Pulse Rate [ 91 H From Monitor] Respiratory 12 25 H 13 Rate Blood Pressure 153/90 153/90 148/92 O2 Sat by Pulse 100 100 100 Oximetry 07/18/19 07/18/19 07/18/19 04:30 04:40 04:50 Temperature Pulse Rate 89 92 H 93 H Pulse Rate [ From Monitor] Respiratory 15 11 L 12 Rate Blood Pressure 162/84 162/84 169/86 O2 Sat by Pulse 100 100 100 Oximetry 07/18/19 07/18/19 07/18/19 05:00 05:10 05:20 Temperature Pulse Rate 92 H 93 H 90 Pulse Rate [ From Monitor] Respiratory 13 12 14 Rate Blood Pressure 162/95 162/95 159/96 O2 Sat by Pulse 100 100 100 Oximetry 07/18/19 07/18/19 07/18/19 05:30 05:40 05:50 Temperature Pulse Rate 91 H 91 H 91 H Pulse Rate [ From Monitor] Respiratory 16 31 H 38 H Rate Blood Pressure 157/99 157/99 156/94 O2 Sat by Pulse 100 100 100 Oximetry 07/18/19 07/18/19 07/18/19 06:00 06:10 06:20 Temperature Pulse Rate 90 89 90 Pulse Rate [ From Monitor] Respiratory 37 H 11 L 12 Rate Blood Pressure 145/90 145/90 148/92 O2 Sat by Pulse 100 100 100 Oximetry 07/18/19 07/18/19 07/18/19 06:30 06:40 06:50 Temperature Pulse Rate 91 H 90 97 H Pulse Rate [ From Monitor] Respiratory 9 L 14 11 L Rate Blood Pressure 162/99 162/99 162/100 O2 Sat by Pulse 100 100 Oximetry 07/18/19 07/18/19 07/18/19 07:00 07:10 07:20 Temperature Pulse Rate 94 H 92 H 92 H Pulse Rate [ From Monitor] Respiratory 10 L 10 L 8 L Rate Blood Pressure 164/101 164/101 168/97 O2 Sat by Pulse 100 100 100 Oximetry 07/18/19 07/18/19 07:54 08:00 Temperature 97.4 F L Pulse Rate Pulse Rate [ From Monitor] Respiratory Rate Blood Pressure O2 Sat by Pulse 100 Oximetry - Laboratory Findings CBC and BMP: 07/17/19 10:59 07/17/19 10:59 Abnormal Lab Findings: Abnormal Labs 07/17/19 07/17/19 07/17/19 10:59 10:59 11:00 MCV 96 H MCH 34 H MCHC 35 H Seg Neutrophils % 72.0 H ABG pO2 91.1 H ABG Hemoglobin 13.2 L Oxyhemoglobin 93.5 L Sodium 136 L Chloride 97.9 L Carbon Dioxide 21 L Glucose 465 H POC Glucose AST 51 H Alkaline Phosphatase 183 H NT-Pro-B Natriuret Pep 1105 H Albumin 3.2 L 07/17/19 07/17/19 07/17/19 11:16 13:08 14:20 MCV MCH MCHC Seg Neutrophils % ABG pO2 ABG Hemoglobin Oxyhemoglobin Sodium Chloride Carbon Dioxide Glucose POC Glucose 434 H 427 H 337 H AST Alkaline Phosphatase NT-Pro-B Natriuret Pep Albumin 07/17/19 07/18/19 07/18/19 18:09 00:02 05:40 MCV MCH MCHC Seg Neutrophils % ABG pO2 ABG Hemoglobin Oxyhemoglobin Sodium Chloride Carbon Dioxide Glucose POC Glucose 310 H 122 H 146 H AST Alkaline Phosphatase NT-Pro-B Natriuret Pep Albumin
[2019-07-18] MEDS: FLUoxetine 20 MG CAP PO SCH (10:19)
[2019-07-18] MEDS: NICOTINE 14 MG/24 HR PATCH TD SCH (10:19)
[2019-07-18] MEDS: ASPIRIN 325 MG TAB PO SCH (10:19)
[2019-07-18] MEDS: levETIRAcetam 500 MG in DEXTROSE 5% IN WATER 100 ML IV SCH ×2 (10:19→18:04)
[2019-07-18] MEDS: THIAMINE 100 MG TAB PO SCH (10:19)
[2019-07-18] MEDS: FOLIC ACID 1 MG TAB PO SCH (10:19)
[2019-07-18] MEDS: hydrALAZINE 20 MG/1 ML INJ IV PRN ×2 (11:05→19:24)
--- NOTE | 2019-07-18 14:53 | Progress Note ---
Assessment and Plan Assessment and plan: 63 YO Male with ETOH Dependence, Cocaine Dependence, HTN, DM, Nicotine Dependence.Paranoid Schhizophrenia presents to ED for evaluation. Patient states that he was in his usual state of health approximately 3 days ago. Patient states that around that time he experienced a sudden onset of weakness in his right upper extremity, slurred speech and right-sided weakness. Patient states that he thought he was having a seizure. Patient also reports persistent symptoms over the same timeframe. EMS notified and upon arrival the patient was found to be in distress and subsequently transported to [facility] for further evaluation and care. Patient seen and evaluated in the emergency department. Lab and imaging studies reviewed. Patient found to have neurologic deficit over the past 3 days. But the patient is deemed outside the therapeutic window for TPA. Patient also found to have blood pressure of 204/130, as well as symptoms consistent with alcohol withdrawal seizures, Cocaine dependence. Patient denies fever, chills, chest pain, palpitations, nausea, and vomiting, diarrhea, trauma, skin rash, or recent ill contacts. Prior admission on 06/19/2019 reviewed. All listed medication reconciled at time of admission. UPon reevaluation after a reported fall in the ED, the patient is more confused /lethargic and unable to provide detailed history. Pt found to have Encephalopathy. Patient admitted to IMCU and initiated on CVA protocol as well as alcohol withdrawal protocol. Advanced care planning conducted in ED. restriants off. (1) CVA (cerebral vascular accident) Current Visit: Yes Status: Acute Qualifiers: Precerebral and cerebral artery: middle cerebral artery Laterality of affected vessel: left Plan to address problem: CVA protocol: CT head, neuro check, aspiration precaution, seizure precaution, echocardiogram, carotid Doppler, antiplatelet therapy, physical therapy, Occupational Therapy, speech therapy, lipid therapy, statin therapy. MRI shows chronic infarct in the past. (2) Nicotine dependence Current Visit: Yes Status: Acute Qualifiers: Nicotine product type: cigarettes Substance use status: in withdrawal Qualified Code(s): F17.213 - Nicotine dependence, cigarettes, with withdrawal Plan to address problem: Supportive care, smoking cessation counseling, +15 minutes. (3) Alcohol withdrawal seizure Current Visit: Yes Status: Acute Qualifiers: Complication of substance-induced condition: with perceptual disturbance Qualified Code(s): F10.232 - Alcohol dependence with withdrawal with perceptual disturbance Plan to address problem: CIWA protocol, thiamine, folic acid, multivitamin, neuro check, seizure precautions, supportive care., Blood alcohol level. Unable to truly determine last alcohol use. We will continue on Keppra EEG is pending (4) Cardiomyopathy Current Visit: Yes Status: Acute Plan to address problem: Echo, supportive care, thyroid panel, magnesium level, BNP, submental oxygen, pulse oximetry, chest x-ray. (5) Diabetes Current Visit: Yes Status: Acute Plan to address problem: Sliding scale insulin, Accu-Chek, consistent carbohydrate diet when alert and awake only, hypoglycemia protocol. (6) Cocaine abuse Current Visit: No Status: Acute Plan to address problem: Supportive care, outpatient drug abuse counseling, +15 minutes. (7) Hypertension urgency Current Visit: No Status: Acute Qualifiers: Hypertension type: essential hypertension Qualified Code(s): I10 - Essential (primary) hypertension Plan to address problem: Permissive hypertension overnight was done the first night will now begin appropriate control, monitor blood pressure every shift, supportive care. Goal systolic blood pressure between 165 and 185 overnight., IV hydralazine every 6 hours as needed for systolic greater than 185. Has been weaned off Cardizem drip Start on clonidine patch due to recurrent seizures IV hydralazine as needed Diovan when able to take p.o. (8) DVT prophylaxis Current Visit: Yes Status: Acute Plan to address problem: SCD to bilateral lower extremities while in bed, prophylactic heparin. (9) Advance care planning Current Visit: Yes Status: Acute Plan to address problem: Patient is full code, disease education conducted in the emergency department, patient knowledges understanding and agreement with current care plan, +30 minutes. History Interval history: Patient seen and examined was unrestrained this morning successfully removed no acute distress no further seizures noted. Hospitalist Physical - Physical exam Narrative exam: VITAL SIGNS: Reviewed. GENERAL: The patient appears normally developed, Vital signs as documented. HEAD: No signs of head trauma. EYES: Pupils are equal. Extraocular motions intact. EARS: Hearing grossly intact. MOUTH: Oropharynx is normal. NECK: No adenopathy, no JVD. CHEST: Chest with clear breath sounds bilaterally. No wheezes, rales, or rhonchi. CARDIAC: Regular rate and rhythm. S1 and S2, without murmurs, gallops, or rubs. VASCULAR: No Edema. Peripheral pulses normal and equal in all extremities. ABDOMEN: Soft, non tender, distended. No rebound or guarding, and no masses palpated. Bowel Sounds normal. MUSCULOSKELETAL: Good range of motion of all major joints. Extremities without clubbing, cyanosis or edema. NEUROLOGIC EXAM: Alert and oriented x 3 No focal sensory or strength deficits. Speech normal. Follows commands. PSYCHIATRIC: Mood normal. SKIN: detial exam as documented in skin assessment - Constitutional Vitals: Temp Pulse Resp BP Pulse Ox 97.4 F L 92 H 8 L 168/97 100 07/18/19 08:00 07/18/19 07:20 07/18/19 07:20 07/18/19 07:20 07/18/19 07:54 General appearance: Present: mild distress Results - Labs CBC & Chem 7: 07/17/19 10:59 07/17/19 10:59 Labs: Laboratory Last Values WBC 7.1 K/mm3 (4.5-11.0) 07/17/19 10:59 RBC 4.17 M/mm3 (3.65-5.03) 07/17/19 10:59 Hgb 14.1 gm/dl (11.8-15.2) 07/17/19 10:59 Hct 40.1 % (35.5-45.6) 07/17/19 10:59 MCV 96 fl (84-94) H 07/17/19 10:59 MCH 34 pg (28-32) H 07/17/19 10:59 MCHC 35 % (32-34) H 07/17/19 10:59 RDW 13.5 % (13.2-15.2) 07/17/19 10:59 Plt Count 212 K/mm3 (140-440) 07/17/19 10:59 Lymph % (Auto) 19.3 % (13.4-35.0) 07/17/19 10:59 [place] % (Auto) 6.3 % (0.0-7.3) 07/17/19 10:59 Eos % (Auto) 1.3 % (0.0-4.3) 07/17/19 10:59 Baso % (Auto) 1.1 % (0.0-1.8) 07/17/19 10:59 Lymph # 1.4 K/mm3 (1.2-5.4) 07/17/19 10:59 [place] # 0.4 K/mm3 (0.0-0.8) 07/17/19 10:59 Eos # 0.1 K/mm3 (0.0-0.4) 07/17/19 10:59 Baso # 0.1 K/mm3 (0.0-0.1) 07/17/19 10:59 Seg Neutrophils % 72.0 % (40.0-70.0) H 07/17/19 10:59 Seg Neutrophils # 5.1 K/mm3 (1.8-7.7) 07/17/19 10:59 PT 12.5 Sec. (12.2-14.9) 07/17/19 11:53 INR 0.92 (0.87-1.13) 07/17/19 11:53 APTT 26.2 Sec. (24.2-36.6) 07/17/19 11:53 ABG pH 7.404 pH Units (7.350-7.450) 07/17/19 11:00 ABG pCO2 39.7 mm Hg 07/17/19 11:00 ABG pO2 91.1 mm Hg (80.0-90.0) H 07/17/19 11:00 ABG HCO3 24.2 mmol/L (20.0-26.0) 07/17/19 11:00 ABG O2 Saturation 97.3 % (95.0-99.0) 07/17/19 11:00 ABG O2 Content 17.5 (0.0-44) 07/17/19 11:00 ABG Base Excess -0.4 mmol/L (-2.0-3.0) 07/17/19 11:00 ABG Hemoglobin 13.2 gm/dl (14.0-18.0) L 07/17/19 11:00 ABG Carboxyhemoglobin 3.4 % (0.0-5.0) 07/17/19 11:00 ABG Methemoglobin 0.5 % (0.0-1.5) 07/17/19 11:00 Oxyhemoglobin 93.5 % (95.0-99.0) L 07/17/19 11:00 FiO2 32 % 07/17/19 11:00 Sodium 136 mmol/L (137-145) L 07/17/19 10:59 Potassium 4.1 mmol/L (3.6-5.0) 07/17/19 10:59 Chloride 97.9 mmol/L (98-107) L 07/17/19 10:59 Carbon Dioxide 21 mmol/L (22-30) L 07/17/19 10:59 Anion Gap 21 mmol/L 07/17/19 10:59 BUN 18 mg/dL (9-20) 07/17/19 10:59 Creatinine 1.2 mg/dL (0.8-1.5) 07/17/19 10:59 Estimated GFR > 60 ml/min 07/17/19 10:59 BUN/Creatinine Ratio 15 % 07/17/19 10:59 Glucose 465 mg/dL (75-100) H 07/17/19 10:59 POC Glucose 146 (70-105) H 07/18/19 05:40 Lactic Acid 1.70 mmol/L (0.7-2.0) 07/17/19 11:53 Calcium 9.0 mg/dL (8.4-10.2) 07/17/19 10:59 Phosphorus 2.90 mg/dL (2.5-4.5) 07/17/19 10:59 Magnesium 1.90 mg/dL (1.7-2.3) 07/17/19 16:08 Total Bilirubin 0.50 mg/dL (0.1-1.2) 07/17/19 10:59 AST 51 units/L (5-40) H 07/17/19 10:59 ALT 31 units/L (7-56) 07/17/19 10:59 Alkaline Phosphatase 183 units/L (35-129) H 07/17/19 10:59 Troponin T < 0.010 ng/mL (0.00-0.029) 07/17/19 11:53 NT-Pro-B Natriuret Pep 1105 pg/mL (0-900) H 07/17/19 10:59 Total Protein 6.3 g/dL (6.3-8.2) 07/17/19 10:59 Albumin 3.2 g/dL (3.9-5) L 07/17/19 10:59 Albumin/Globulin Ratio 1.0 % 07/17/19 10:59 Triglycerides 123 mg/dL (2-149) 07/18/19 05:32 Cholesterol 174 mg/dL (50-199) 07/18/19 05:32 LDL Cholesterol Direct 110 mg/dL (50-130) 07/18/19 05:32 HDL Cholesterol 51 mg/dL (40-59) 07/18/19 05:32 Cholesterol/HDL Ratio 3.41 % 07/18/19 05:32 TSH 0.327 mlU/mL (0.270-4.200) 07/17/19 16:08 Free T4 1.16 ng/dL (0.76-1.46) 07/17/19 16:08 Urine Color Straw (Yellow) 07/17/19 12:14 Urine Turbidity Clear (Clear) 07/17/19 12:14 Urine pH 7.0 (5.0-7.0) 07/17/19 12:14 Ur Specific [place] 1.017 (1.003-1.030) 07/17/19 12:14 Urine Protein 100 mg/dl mg/dL (Negative) 07/17/19 12:14 Urine Glucose (UA) >=500 mg/dL (Negative) 07/17/19 12:14 Urine Ketones Tr mg/dL (Negative) 07/17/19 12:14 Urine Blood Sm (Negative) 07/17/19 12:14 Urine Nitrite Neg (Negative) 07/17/19 12:14 Urine Bilirubin Neg (Negative) 07/17/19 12:14 Urine Urobilinogen < 2.0 mg/dL (<2.0) 07/17/19 12:14 Ur Leukocyte Esterase Neg (Negative) 07/17/19 12:14 Urine WBC (Auto) < 1.0 /HPF (0.0-6.0) 07/17/19 12:14 Urine RBC (Auto) 1.0 /HPF (0.0-6.0) 07/17/19 12:14 U Epithel Cells (Auto) < 1.0 /HPF (0-13.0) 07/17/19 12:14 Urine Opiates Screen Presumptive negative 07/17/19 12:14 Urine Methadone Screen Presumptive negative 07/17/19 12:14 Ur Barbiturates Screen Presumptive negative 07/17/19 12:14 Ur Phencyclidine Scrn Presumptive negative 07/17/19 12:14 Ur Amphetamines Screen Presumptive negative 07/17/19 12:14 U Benzodiazepines Scrn Presumptive negative 07/17/19 12:14 Urine Cocaine Screen Presumptive positive 07/17/19 12:14 U Marijuana (THC) Screen Presumptive negative 07/17/19 12:14 Drugs of Abuse Note Disclamer 07/17/19 12:14 Plasma/Serum Alcohol < 0.01 % (0-0.07) 07/17/19 11:53 Active Medications - Current Medications Current Medications: Generic Name Dose Route Start Last Admin Trade Name Freq PRN Reason Stop Dose Admin Acetaminophen 650 mg 07/17/19 13:42 Tylenol PO Q4H PRN Pain, Mild (1-3) Aspirin 325 mg 07/18/19 10:00 07/18/19 10:19 Aspirin PO 325 mg QDAY JODIE Administration Atorvastatin Calcium 40 mg 07/17/19 22:00 07/18/19 02:35 Lipitor PO Not Given QHS JODIE Bisacodyl 10 mg 07/17/19 13:42 Dulcolax MD QDAY PRN Constipation Chlordiazepoxide HCl 50 mg 07/17/19 11:52 Librium PO Q1H PRN CIWA-Ar 8-15 Chlordiazepoxide HCl 100 mg 07/17/19 11:52 Librium PO Q1H PRN CIWA-Ar 16-25 Dextrose 50 ml 07/17/19 13:40 D50w (25gm) Syringe IV Q30MIN PRN Hypoglycemia Protocol Fluoxetine HCl 20 mg 07/18/19 10:00 07/18/19 10:19 Prozac PO 20 mg QDAY JODIE Administration Folic Acid 1 mg 07/18/19 10:00 07/18/19 10:19 Folvite PO 1 mg DAILY JODIE Administration Haloperidol Lactate 5 mg 07/17/19 11:52 Haldol IV Q1H PRN Unrespon. to mult. doses BZD's Hydralazine HCl 10 mg 07/17/19 21:52 07/18/19 11:05 Apresoline IV 10 mg Q4H PRN Administration Hypertension Levetiracetam 500 mg/ Dextrose 105 mls @ 400 mls/hr 07/17/19 18:00 07/18/19 10:19 IV 400 mls/hr Q12H JODIE Administration Insulin Human Lispro 0 unit 07/17/19 14:00 07/18/19 13:07 Humalog SUB-Q Not Given Q6HR JODIE Protocol Lorazepam 2 mg 07/17/19 11:52 Ativan IV Q1H PRN CIWA-Ar 8-15 Lorazepam 4 mg 07/17/19 11:52 Ativan IV Q1H PRN CIWA-Ar 16-25 Lorazepam 4 mg 07/17/19 11:52 Ativan IV Q15MIN PRN CIWA-Ar >25 Magnesium Hydroxide 30 ml 07/17/19 13:42 Milk Of Magnesia PO Q4H PRN Constipation Metoclopramide HCl 10 mg 07/17/19 13:42 Reglan PO Q6H PRN Nausea And Vomiting Nicotine 14 mg 07/17/19 15:00 07/18/19 10:19 Habitrol TD 14 mg DAILY JODIE Administration Ondansetron HCl 4 mg 07/17/19 13:42 Zofran IV Q8H PRN Nausea And Vomiting Promethazine HCl 25 mg 07/17/19 13:42 Phenergan MD Q6H PRN Nausea And Vomiting Sodium Chloride 10 ml 07/17/19 13:42 Sodium Chloride Flush Syringe 10 Ml IV PRN PRN LINE FLUSH Thiamine HCl 100 mg 07/18/19 10:00 07/18/19 10:19 Vitamin B-1 PO 100 mg QDAY JODIE Administration Trazodone HCl 50 mg 07/17/19 22:00 07/18/19 02:36 Desyrel PO Not Given QHS [facility]
--- NOTE | 2019-07-18 16:26 | Magnetic Resonance Report ---
MRI BRAIN WITHOUT CONTRAST INDICATION / CLINICAL INFORMATION: MAIN: cva, right side weakness. TECHNIQUE: Multisequence, multiplanar images were obtained. COMPARISON: CT head 07/17/2019 FINDINGS: CEREBRAL and CEREBELLAR HEMISPHERES: Chronic infarct in the left frontoparietal region measures up to 4.5 x 2.5 cm in axial plane. Mild to moderate chronic microangiopathy is identified in the white mat ter. No evidence of mass or mass effect. No midline shift. No acute hemorrhage. No diffusion restr iction to suggest acute infarct. No extra-axial fluid collection. VENTRICLES: Normal in size and configuration for age. VISUALIZED ORBITS: No significant abnormality. VISUALIZED PARANASAL SINUSES: No significant abnormality. ADDITIONAL FINDINGS: None. IMPRESSION: Chronic infarct in the left MCA distribution as described. No acute intracranial process is identifie d. 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 Signer Name: Sloan Rodríguez Jr, MD Signed: 07/18/2019 4:22 PM Workstation Name: [id number]
[2019-07-18] MEDS ORDERED: hydrALAZINE 20 MG/1 ML INJ IV PRN (18:41)
[2019-07-18] MEDS: levETIRAcetam 1,000 MG in DEXTROSE 5% IN WATER 100 ML IV SCH (22:04)
[2019-07-18] MEDS: VALSARTAN 160MG TAB PO SCH (22:04)
[2019-07-18] MEDS: cloNIDine TTS 0.1 MG/24 HR PATCH TD SCH (22:04)
[2019-07-19] MEDS: INSULIN LISPRO 100 UNIT/ML SUB-Q SCH ×5 (01:13→23:44)
[2019-07-19] MEDS: FLUoxetine 20 MG CAP PO SCH (10:09)
[2019-07-19] MEDS: ASPIRIN 325 MG TAB PO SCH (10:09)
[2019-07-19] MEDS: THIAMINE 100 MG TAB PO SCH (10:10)
[2019-07-19] MEDS: VALSARTAN 160MG TAB PO SCH (10:10)
[2019-07-19] MEDS: levETIRAcetam 1,000 MG in DEXTROSE 5% IN WATER 100 ML IV SCH ×2 (10:10→22:54)
[2019-07-19] MEDS: NICOTINE 14 MG/24 HR PATCH TD SCH (10:10)
[2019-07-19] MEDS: FOLIC ACID 1 MG TAB PO SCH (10:10)
--- NOTE | 2019-07-19 15:56 | Progress Note ---
Assessment and Plan Assessment and plan: Patient is a 63 yo AA man with a history of ETOH Dependence, Cocaine Dependence, HTN, DM type 2, Nicotine Dependence and Paranoid Schhizophrenia who presented to [facility] ED with initial right upper extremity numbness that started 3 days ago. Upon the patient's arrival to emergency department he began to have seizure-like activity. He was confused. He was found to have blood pressure of 204/130, as well as symptoms consistent with alcohol withdrawal seizures, Cocaine positive in Urine drug screen. During my exam, I noticed his right hand is swollen, when I examined he mentions being bite by a dog. * CT head without contrast IMPRESSION: CT findings remain unchanged No acute parenchymal lesion Encephalomalacia in the left lateral frontal and parietal lobes * pCXR IMPRESSION: No acute abnormality or significant change. 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 No acute intracranial process is identified. 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 Right hand numbness, due to Dog bite with Right hand cellulitis: consulted ID and Ortho, notified both, start IV antibodits, consulted Wound care also, get XRAY Toxic encephalopathy, poa: drug counselor on stopping Cocaine, his niece Lisa at bedside also re-interated cessation from drug and alcohol Ruled out Acute CVA Seizure episodes thought to be ETOH WD sz: treat with CIWA protocol, thiamine and folic acid Tobacco dependency: drug counselor on stopping Alcohol withdrawal seizure: treat with IV ativan prn Cocaine abuse: drug counselor on stopping Cardiomyopathy, TTE Conclusions: trace MR, trace TR, mild LV hypertrophy, estimated EF 45-50%, mild global hypokinesis of Left ventricle Type 2 DM: Sliding scale insulin, Accu-Chek, consistent carbohydrate diet when alert and awake only, hypoglycemia protocol. Hypertension urgency: IV hydralazine every 6 hours as needed for systolic greater than 185. Has been weaned off Cardizem drip DVT prophylaxis: SCD to bilateral lower extremities while in bed, prophylactic sq heparin. History Interval history: Patient was seen and examined. Follow-up on current diagnosis of Seizure. Overnight uneventful as no events directly reported to me. Patient denies any chest pain, shortness breath, nausea/vomiting or severe headaches. Imaging, nursing note, chart, labs and old chart reviewed. Discussed with patient. Hospitalist Physical - Physical exam Narrative exam: Gen: unkempt, WDWN, NAD, Awake, Alert, Orientated x 2 HEENT: NCAT, EOMI, PERRL, OP Clear Neck: supple, no adenopathy, no thyromegaly, no JVD CVS/Heart: RRR, normal S1S2, pulses present bilaterally Chest/Lungs: CTA B, Symmetrical chest expansion, good air entry bilaterally GI/Abdomen: soft, NTND, good bowel sounds, no guarding or rebound /Bladder: no suprapubic tenderness, no CVA or paraspinal tenderness Extermity/Skin: swollen right hand with purulent drainage from cut at the base of the right pinky palm MCP MSK: FROM x 4 Neuro: CN 2-12 grossly intact, no new focal deficits Psych: calm - Constitutional Vitals: Temp Pulse Resp BP Pulse Ox 98.6 F 92 H 16 138/79 99 07/19/19 11:56 07/19/19 11:56 07/19/19 11:56 07/19/19 11:56 07/19/19 11:56 General appearance: Present: no acute distress. Absent: mild distress Results - Labs CBC & Chem 7: 07/17/19 10:59 07/17/19 10:59 Labs: Laboratory Last Values WBC 7.1 K/mm3 (4.5-11.0) 07/17/19 10:59 RBC 4.17 M/mm3 (3.65-5.03) 07/17/19 10:59 Hgb 14.1 gm/dl (11.8-15.2) 07/17/19 10:59 Hct 40.1 % (35.5-45.6) 07/17/19 10:59 MCV 96 fl (84-94) H 07/17/19 10:59 MCH 34 pg (28-32) H 07/17/19 10:59 MCHC 35 % (32-34) H 07/17/19 10:59 RDW 13.5 % (13.2-15.2) 07/17/19 10:59 Plt Count 212 K/mm3 (140-440) 07/17/19 10:59 Lymph % (Auto) 19.3 % (13.4-35.0) 07/17/19 10:59 [place] % (Auto) 6.3 % (0.0-7.3) 07/17/19 10:59 Eos % (Auto) 1.3 % (0.0-4.3) 07/17/19 10:59 Baso % (Auto) 1.1 % (0.0-1.8) 07/17/19 10:59 Lymph # 1.4 K/mm3 (1.2-5.4) 07/17/19 10:59 [place] # 0.4 K/mm3 (0.0-0.8) 07/17/19 10:59 Eos # 0.1 K/mm3 (0.0-0.4) 07/17/19 10:59 Baso # 0.1 K/mm3 (0.0-0.1) 07/17/19 10:59 Seg Neutrophils % 72.0 % (40.0-70.0) H 07/17/19 10:59 Seg Neutrophils # 5.1 K/mm3 (1.8-7.7) 07/17/19 10:59 PT 12.5 Sec. (12.2-14.9) 07/17/19 11:53 INR 0.92 (0.87-1.13) 07/17/19 11:53 APTT 26.2 Sec. (24.2-36.6) 07/17/19 11:53 ABG pH 7.404 pH Units (7.350-7.450) 07/17/19 11:00 ABG pCO2 39.7 mm Hg 07/17/19 11:00 ABG pO2 91.1 mm Hg (80.0-90.0) H 07/17/19 11:00 ABG HCO3 24.2 mmol/L (20.0-26.0) 07/17/19 11:00 ABG O2 Saturation 97.3 % (95.0-99.0) 07/17/19 11:00 ABG O2 Content 17.5 (0.0-44) 07/17/19 11:00 ABG Base Excess -0.4 mmol/L (-2.0-3.0) 07/17/19 11:00 ABG Hemoglobin 13.2 gm/dl (14.0-18.0) L 07/17/19 11:00 ABG Carboxyhemoglobin 3.4 % (0.0-5.0) 07/17/19 11:00 ABG Methemoglobin 0.5 % (0.0-1.5) 07/17/19 11:00 Oxyhemoglobin 93.5 % (95.0-99.0) L 07/17/19 11:00 FiO2 32 % 07/17/19 11:00 Sodium 136 mmol/L (137-145) L 07/17/19 10:59 Potassium 4.1 mmol/L (3.6-5.0) 07/17/19 10:59 Chloride 97.9 mmol/L (98-107) L 07/17/19 10:59 Carbon Dioxide 21 mmol/L (22-30) L 07/17/19 10:59 Anion Gap 21 mmol/L 07/17/19 10:59 BUN 18 mg/dL (9-20) 07/17/19 10:59 Creatinine 1.2 mg/dL (0.8-1.5) 07/17/19 10:59 Estimated GFR > 60 ml/min 07/17/19 10:59 BUN/Creatinine Ratio 15 % 07/17/19 10:59 Glucose 465 mg/dL (75-100) H 07/17/19 10:59 POC Glucose 475 (70-105) H 07/19/19 11:34 Lactic Acid 1.70 mmol/L (0.7-2.0) 07/17/19 11:53 Calcium 9.0 mg/dL (8.4-10.2) 07/17/19 10:59 Phosphorus 2.90 mg/dL (2.5-4.5) 07/17/19 10:59 Magnesium 1.90 mg/dL (1.7-2.3) 07/17/19 16:08 Total Bilirubin 0.50 mg/dL (0.1-1.2) 07/17/19 10:59 AST 51 units/L (5-40) H 07/17/19 10:59 ALT 31 units/L (7-56) 07/17/19 10:59 Alkaline Phosphatase 183 units/L (35-129) H 07/17/19 10:59 Troponin T < 0.010 ng/mL (0.00-0.029) 07/17/19 11:53 NT-Pro-B Natriuret Pep 1105 pg/mL (0-900) H 07/17/19 10:59 Total Protein 6.3 g/dL (6.3-8.2) 07/17/19 10:59 Albumin 3.2 g/dL (3.9-5) L 07/17/19 10:59 Albumin/Globulin Ratio 1.0 % 07/17/19 10:59 Triglycerides 123 mg/dL (2-149) 07/18/19 05:32 Cholesterol 174 mg/dL (50-199) 07/18/19 05:32 LDL Cholesterol Direct 110 mg/dL (50-130) 07/18/19 05:32 HDL Cholesterol 51 mg/dL (40-59) 07/18/19 05:32 Cholesterol/HDL Ratio 3.41 % 07/18/19 05:32 TSH 0.327 mlU/mL (0.270-4.200) 07/17/19 16:08 Free T4 1.16 ng/dL (0.76-1.46) 07/17/19 16:08 Urine Color Straw (Yellow) 07/17/19 12:14 Urine Turbidity Clear (Clear) 07/17/19 12:14 Urine pH 7.0 (5.0-7.0) 07/17/19 12:14 Ur Specific [place] 1.017 (1.003-1.030) 07/17/19 12:14 Urine Protein 100 mg/dl mg/dL (Negative) 07/17/19 12:14 Urine Glucose (UA) >=500 mg/dL (Negative) 07/17/19 12:14 Urine Ketones Tr mg/dL (Negative) 07/17/19 12:14 Urine Blood Sm (Negative) 07/17/19 12:14 Urine Nitrite Neg (Negative) 07/17/19 12:14 Urine Bilirubin Neg (Negative) 07/17/19 12:14 Urine Urobilinogen < 2.0 mg/dL (<2.0) 07/17/19 12:14 Ur Leukocyte Esterase Neg (Negative) 07/17/19 12:14 Urine WBC (Auto) < 1.0 /HPF (0.0-6.0) 07/17/19 12:14 Urine RBC (Auto) 1.0 /HPF (0.0-6.0) 07/17/19 12:14 U Epithel Cells (Auto) < 1.0 /HPF (0-13.0) 07/17/19 12:14 Urine Opiates Screen Presumptive negative 07/17/19 12:14 Urine Methadone Screen Presumptive negative 07/17/19 12:14 Ur Barbiturates Screen Presumptive negative 07/17/19 12:14 Ur Phencyclidine Scrn Presumptive negative 07/17/19 12:14 Ur Amphetamines Screen Presumptive negative 07/17/19 12:14 U Benzodiazepines Scrn Presumptive negative 07/17/19 12:14 Urine Cocaine Screen Presumptive positive 07/17/19 12:14 U Marijuana (THC) Screen Presumptive negative 07/17/19 12:14 Drugs of Abuse Note Disclamer 07/17/19 12:14 Plasma/Serum Alcohol < 0.01 % (0-0.07) 07/17/19 11:53 Active Medications - Current Medications Current Medications: Generic Name Dose Route Start Last Admin Trade Name Freq PRN Reason Stop Dose Admin Acetaminophen 650 mg 07/17/19 13:42 Tylenol PO Q4H PRN Pain, Mild (1-3) Aspirin 325 mg 07/18/19 10:00 07/19/19 10:09 Aspirin PO 325 mg QDAY JODIE Administration Atorvastatin Calcium 40 mg 07/17/19 22:00 07/18/19 22:10 Lipitor PO 40 mg QHS JODIE Administration Bisacodyl 10 mg 07/17/19 13:42 Dulcolax ID QDAY PRN Constipation Chlordiazepoxide HCl 50 mg 07/17/19 11:52 Librium PO Q1H PRN CIWA-Ar 8-15 Chlordiazepoxide HCl 100 mg 07/17/19 11:52 Librium PO Q1H PRN CIWA-Ar 16-25 Clonidine HCl 0.1 mg 07/18/19 18:43 07/18/19 22:04 Catapres-Tts Patch TD 0.1 mg Mo JODIE Administration Dextrose 50 ml 07/17/19 13:40 D50w (25gm) Syringe IV Q30MIN PRN Hypoglycemia Protocol Fluoxetine HCl 20 mg 07/18/19 10:00 07/19/19 10:09 Prozac PO 20 mg QDAY JODIE Administration Folic Acid 1 mg 07/18/19 10:00 07/19/19 10:10 Folvite PO 1 mg DAILY JODIE Administration Haloperidol Lactate 5 mg 07/17/19 11:52 Haldol IV Q1H PRN Unrespon. to mult. doses BZD's Hydralazine HCl 10 mg 07/17/19 21:52 07/18/19 19:24 Apresoline IV 10 mg Q4H PRN Administration Hypertension Hydralazine HCl 10 mg 07/18/19 18:41 Apresoline IV Q4HR PRN HTN SPB>160 OR DPB>105 Levetiracetam 1,000 mg/ 110 mls @ 400 mls/hr 07/18/19 22:00 07/19/19 10:10 Dextrose IV 400 mls/hr Q12HR JODIE Administration Insulin Human Lispro 0 unit 07/17/19 14:00 07/19/19 11:49 Humalog SUB-Q 10 unit Q6HR JODIE Administration Protocol Lorazepam 2 mg 07/17/19 11:52 Ativan IV Q1H PRN CIWA-Ar 8-15 Lorazepam 4 mg 07/17/19 11:52 Ativan IV Q1H PRN CIWA-Ar 16-25 Lorazepam 4 mg 07/17/19 11:52 Ativan IV Q15MIN PRN CIWA-Ar >25 Magnesium Hydroxide 30 ml 07/17/19 13:42 Milk Of Magnesia PO Q4H PRN Constipation Metoclopramide HCl 10 mg 07/17/19 13:42 Reglan PO Q6H PRN Nausea And Vomiting Nicotine 14 mg 07/17/19 15:00 07/19/19 10:10 Habitrol TD 14 mg DAILY JODIE Administration Ondansetron HCl 4 mg 07/17/19 13:42 Zofran IV Q8H PRN Nausea And Vomiting Promethazine HCl 25 mg 07/17/19 13:42 Phenergan ID Q6H PRN Nausea And Vomiting Sodium Chloride 10 ml 07/17/19 13:42 07/18/19 22:12 Sodium Chloride Flush Syringe 10 Ml IV 10 ml PRN PRN Administration LINE FLUSH Thiamine HCl 100 mg 07/18/19 10:00 07/19/19 10:10 Vitamin B-1 PO 100 mg QDAY JODIE Administration Trazodone HCl 50 mg 07/17/19 22:00 07/18/19 22:04 Desyrel PO 50 mg QHS JODIE Administration Valsartan 160 mg 07/18/19 19:00 07/19/19 10:10 Diovan PO 160 mg DAILY JODIE Administration
--- NOTE | 2019-07-19 16:38 | Consultation ---
History of Present Illness - Reason for Consult Consult date: 07/19/19 Dog bite Requesting physician: JENNY SELBY - History of Present Illness The patient is a 63-year-old male with alcohol dependence, substance abuse, diabetes, hypertension, schizophrenia, tobacco abuse, h/o incarceration was brought in by EMS on 07/17/2019 with right upper extremity numbness for 2 to 3 days prior to admission. While in the ER, patient started having seizures. 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 Infectious diseases was consulted today due to right hand swelling which the patient attributes to being bitten by a dog about 1 week prior to admission. Patient complains of pain in his right hand. The dog belongs to his cousin. Patient does not have his cousin's phone number or address. Patient thinks his phone got stolen at his house. Dog's vaccination status is unknown. Review of Systems: General: no fevers,chills or rigors HEENT: no new visual disturbance Respiratory: No cough, sputum, hemoptysis or shortness of breath Cardiovascular: No chest pain, syncope Gastrointestinal: No nausea, vomiting or diarrhea Genitourinary: No dysuria or hematuria Musculoskeletal: No new or worsening neck pain or back pain Neurologic: No headaches, seizures Hematologic: No easy bruising or bleeding Endocrine: No night sweats or acute weight loss Skin: negative for rash, jaundice Psychiatric: No suicidal or homicidal ideation Past History Past Medical History: diabetes, hypertension Past Surgical History: No surgical history, Other (Reviewed) Social history: , smoking, alcohol abuse Family history: diabetes, hypertension Medications and Allergies Allergies Allergy/AdvReac Type Severity Reaction Status Date / Time No Known Allergies Allergy Verified 06/19/19 17:53 Home Medications Medication Instructions Recorded Confirmed Last Taken Type FLUoxetine [PROzac] 20 mg PO QDAY #14 capsule 06/23/19 07/19/19 Unknown Rx Insulin NPH, Human [NovoLIN N] 20 unit SUB-Q BIDDIAB 30 Days #10 06/23/19 07/19/19 Unknown Rx ml traZODone [Desyrel] 50 mg PO QHS #10 tablet 06/23/19 07/19/19 Unknown Rx Folic Acid 1 mg PO DAILY #30 tablet 06/25/19 07/19/19 Unknown Rx Nicotine [Habitrol] 14 mg TD DAILY #30 patch 06/25/19 07/19/19 Unknown Rx Thiamine [Vitamin B-1] 100 mg PO QDAY #30 tablet 06/25/19 07/19/19 Unknown Rx Active Meds: Active Medications Acetaminophen (Tylenol) 650 mg PO Q4H PRN PRN Reason: Pain, Mild (1-3) Aspirin (Aspirin) 325 mg PO QDAY [facility] Last Admin: 07/19/19 10:09 Dose: 325 mg Documented by: Atorvastatin Calcium (Lipitor) 40 mg PO QHS [facility] Last Admin: 07/18/19 22:10 Dose: 40 mg Documented by: Bisacodyl (Dulcolax) 10 mg [place] QDAY PRN PRN Reason: Constipation Chlordiazepoxide HCl (Librium) 50 mg PO Q1H PRN PRN Reason: CIWA-Ar 8-15 Chlordiazepoxide HCl (Librium) 100 mg PO Q1H PRN PRN Reason: CIWA-Ar 16-25 Clonidine HCl (Catapres-Tts Patch) 0.1 mg TD Mo [facility] Last Admin: 07/18/19 22:04 Dose: 0.1 mg Documented by: Dextrose (D50w (25gm) Syringe) 50 ml IV Q30MIN PRN; Protocol PRN Reason: Hypoglycemia Fluoxetine HCl (Prozac) 20 mg PO QDAY [facility] Last Admin: 07/19/19 10:09 Dose: 20 mg Documented by: Folic Acid (Folvite) 1 mg PO DAILY [facility] Last Admin: 07/19/19 10:10 Dose: 1 mg Documented by: Haloperidol Lactate (Haldol) 5 mg IV Q1H PRN PRN Reason: Unrespon. to mult. doses BZD's Heparin Sodium (Porcine) (Heparin) 5,000 unit SUB-Q Q12HR [facility] Hydralazine HCl (Apresoline) 10 mg IV Q4H PRN PRN Reason: Hypertension Last Admin: 07/18/19 19:24 Dose: 10 mg Documented by: Hydralazine HCl (Apresoline) 10 mg IV Q4HR PRN PRN Reason: HTN SPB>160 OR DPB>105 Levetiracetam 1,000 mg/ (Dextrose) 110 mls @ 400 mls/hr IV Q12HR [facility] Last Admin: 07/19/19 10:10 Dose: 400 mls/hr Documented by: Ampicillin Sodium/Sulbactam Sodium (Unasyn/Ns 3 Gm/100 Ml) 3 gm in 100 mls @ 200 mls/hr IV Q6HR [facility]; Protocol Vancomycin HCl 1,750 mg/ (Sodium Chloride) 535 mls @ 333 mls/hr IV ONCE ONE; Protocol Stop: 07/19/19 18:06 Insulin Human Lispro (Humalog) 0 unit SUB-Q Q6HR JODIE; Protocol Last Admin: 07/19/19 11:49 Dose: 10 unit Documented by: Lorazepam (Ativan) 2 mg IV Q1H PRN PRN Reason: CIWA-Ar 8-15 Lorazepam (Ativan) 4 mg IV Q1H PRN PRN Reason: CIWA-Ar 16-25 Lorazepam (Ativan) 4 mg IV Q15MIN PRN PRN Reason: CIWA-Ar >25 Magnesium Hydroxide (Milk Of Magnesia) 30 ml PO Q4H PRN PRN Reason: Constipation Metoclopramide HCl (Reglan) 10 mg PO Q6H PRN PRN Reason: Nausea And Vomiting Nicotine (Habitrol) 14 mg TD DAILY [facility] Last Admin: 07/19/19 10:10 Dose: 14 mg Documented by: Ondansetron HCl (Zofran) 4 mg IV Q8H PRN PRN Reason: Nausea And Vomiting Promethazine HCl (Phenergan) 25 mg NJ Q6H PRN PRN Reason: Nausea And Vomiting Sodium Chloride (Sodium Chloride Flush Syringe 10 Ml) 10 ml IV PRN PRN PRN Reason: LINE FLUSH Last Admin: 07/18/19 22:12 Dose: 10 ml Documented by: Thiamine HCl (Vitamin B-1) 100 mg PO QDAY [facility] Last Admin: 07/19/19 10:10 Dose: 100 mg Documented by: Trazodone HCl (Desyrel) 50 mg PO QHS [facility] Last Admin: 07/18/19 22:04 Dose: 50 mg Documented by: Valsartan (Diovan) 160 mg PO DAILY [facility] Last Admin: 07/19/19 10:10 Dose: 160 mg Documented by: Physical Examination - Physical Exam Narrative exam: Physical Exam: Constitutional: Alert, cooperative. No acute distress Head, Ears, Nose: Normocephalic, atraumatic. External ears, nose normal Eyes: Conjunctivae/corneas clear. No icterus. No ptosis. Neck: Supple, no meningeal signs Oral: no thrush Cardiovascular: S1, S2 normal. Respiratory: Good air entry, clear to auscultation bilaterally GI: Soft, non-tender; bowel sounds normal. No peritoneal signs Musculoskeletal: No pedal edema, no cyanosis. R hand webbing of 4th and 5th finger with wound with purulence, R hand swelling and tenderness Skin: No rash or abscess Hem/Lymphatic: No palpable cervical or supraclavicular nodes. No lymphangitis Psych: Mood ok. Affect flat Neurological: Awake, alert, oriented. No gross abnormality - Constitutional Vitals: Vital Signs Temp Pulse Resp BP Pulse Ox 98.6 F 92 H 16 138/79 99 07/19/19 11:56 07/19/19 11:56 07/19/19 11:56 07/19/19 11:56 07/19/19 11:56 Temperature -Last 24 Hours Temperature 98.6 F Temperature 97.3 F Temperature 97.6 F Results - Labs CBC & Chem 7: 07/17/19 10:59 07/17/19 10:59 Labs: Abnormal lab results 07/18/19 07/19/19 07/19/19 Range/Units 21:15 01:14 06:12 POC Glucose 421 H 405 H 174 H (70-105) 07/19/19 07/19/19 Range/Units 07:35 11:34 POC Glucose 249 H 475 H (70-105) - Imaging and Cardiology Chest x-ray: report reviewed, image reviewed (no pneumonia seen) Assessment and Plan Cultures: 07/17/2019 blood culture: No growth A/P: 63-year-old male with alcohol dependence, substance abuse, diabetes, hypertension, schizophrenia, tobacco abuse, h/o incarceration was brought in by EMS on 07/17/2019 with seizures: #R hand cellulitis, dog bite, possible abscess: The dog belongs to his cousin. Patient does not have his cousin's phone number but name is Valentina Boo lives on [address] in [place]. Patient thinks his phone got stolen at his house. Dog's vaccination status is unknown. I spoke to the [facility]. This was not deemed an unprovoked attack. They did not recommend postexposure prophylaxis with HRIG at this time. Since this happened at least a week ago, recommendation from them is to observe the dog. They advised me to contact animal control in [place], who was notified who will be in touch with me. #Seizure disorder #Polysubstance abuse: Utox positive for cocaine on admission. #Uncontrolled DM Recs: Wound culture ordered STAT MRI of the right hand ordered IV Unasyn and Vancomycin ordered Patient may need a hand surgeon eval Follow up [place] animal control updates, if unable to locate the dog, will need PEP with HRIG and rabies vaccinations d/w Dr. Selby. Ashley Montanez MD, FACP [facility] C: [phone] O: [phone] F: [phone]
--- NOTE | 2019-07-19 16:43 | XRay Report ---
RIGHT HAND 4 VIEWS INDICATION: MAIN: right hand infection; DOG BITE TO HAND X 1 WEEK; SWOLLEN AND LIMP; BEST IMAGES POSSIBLE, PAT. U NABLE TO KEEP ARM STEADY; TAPED DOWN BEST POSSIBLE IN POSITIONS. COMPARISON: No relevant prior imaging study available. FINDINGS: There is no acute skeletal abnormality. Osteoarthrosis changes are noted. There is mild soft tissue s welling somewhat diffusely about the hand. IMPRESSION: 1. Diffuse soft tissue swelling. No underlying acute skeletal abnormality. Signer Name: Felix Santos MD Signed: 07/19/2019 4:38 PM Workstation Name: [id number]
[2019-07-19] MEDS ORDERED: VANCOMYCIN PHARMACY TO DOSE IV SCH (17:00)
[2019-07-19] MEDS ORDERED: VANCOMYCIN 1,750 MG in SODIUM CHLORIDE 0.9% 500 ML 500 ML IV ONE (17:00)
--- NOTE | 2019-07-19 17:29 | Consultation ---
History of Present Illness - [facility] Consult date: 07/19/19 Consult reason: joint pain History of present illness: 63-year-old male who comes in complaining of right hand pain and swelling for the past week or so patient states he was bitten by his cousin dog since that ti me patient has noted pain and swelling he was admitted for alcoholic withdrawals there is also a history of cocaine dependency Past History Past Medical History: diabetes, hypertension Past Surgical History: No surgical history, Other (Reviewed) Social history: , smoking, alcohol abuse Family history: diabetes, hypertension Medications and Allergies Allergies Allergy/AdvReac Type Severity Reaction Status Date / Time No Known Allergies Allergy Verified 06/19/19 17:53 Home Medications Medication Instructions Recorded Confirmed Last Taken Type FLUoxetine [PROzac] 20 mg PO QDAY #14 capsule 06/23/19 07/19/19 Unknown Rx Insulin NPH, Human [NovoLIN N] 20 unit SUB-Q BIDDIAB 30 Days #10 06/23/19 07/19/19 Unknown Rx ml traZODone [Desyrel] 50 mg PO QHS #10 tablet 06/23/19 07/19/19 Unknown Rx Folic Acid 1 mg PO DAILY #30 tablet 06/25/19 07/19/19 Unknown Rx Nicotine [Habitrol] 14 mg TD DAILY #30 patch 06/25/19 07/19/19 Unknown Rx Thiamine [Vitamin B-1] 100 mg PO QDAY #30 tablet 06/25/19 07/19/19 Unknown Rx Active Meds: Active Medications Acetaminophen (Tylenol) 650 mg PO Q4H PRN PRN Reason: Pain, Mild (1-3) Aspirin (Aspirin) 325 mg PO QDAY [facility] Last Admin: 07/19/19 10:09 Dose: 325 mg Documented by: Atorvastatin Calcium (Lipitor) 40 mg PO QHS [facility] Last Admin: 07/18/19 22:10 Dose: 40 mg Documented by: Bisacodyl (Dulcolax) 10 mg [place] QDAY PRN PRN Reason: Constipation Chlordiazepoxide HCl (Librium) 50 mg PO Q1H PRN PRN Reason: CIWA-Ar 8-15 Chlordiazepoxide HCl (Librium) 100 mg PO Q1H PRN PRN Reason: CIWA-Ar 16-25 Clonidine HCl (Catapres-Tts Patch) 0.1 mg TD Mo [facility] Last Admin: 07/18/19 22:04 Dose: 0.1 mg Documented by: Dextrose (D50w (25gm) Syringe) 50 ml IV Q30MIN PRN; Protocol PRN Reason: Hypoglycemia Fluoxetine HCl (Prozac) 20 mg PO QDAY [facility] Last Admin: 07/19/19 10:09 Dose: 20 mg Documented by: Folic Acid (Folvite) 1 mg PO DAILY [facility] Last Admin: 07/19/19 10:10 Dose: 1 mg Documented by: Haloperidol Lactate (Haldol) 5 mg IV Q1H PRN PRN Reason: Unrespon. to mult. doses BZD's Heparin Sodium (Porcine) (Heparin) 5,000 unit SUB-Q Q12HR [facility] Hydralazine HCl (Apresoline) 10 mg IV Q4H PRN PRN Reason: Hypertension Last Admin: 07/18/19 19:24 Dose: 10 mg Documented by: Hydralazine HCl (Apresoline) 10 mg IV Q4HR PRN PRN Reason: HTN SPB>160 OR DPB>105 Levetiracetam 1,000 mg/ (Dextrose) 110 mls @ 400 mls/hr IV Q12HR [facility] Last Admin: 07/19/19 10:10 Dose: 400 mls/hr Documented by: Ampicillin Sodium/Sulbactam Sodium (Unasyn/Ns 3 Gm/100 Ml) 3 gm in 100 mls @ 200 mls/hr IV Q6HR [facility]; Protocol Vancomycin HCl 1,750 mg/ (Sodium Chloride) 535 mls @ 333 mls/hr IV ONCE ONE; Protocol Stop: 07/19/19 18:36 Last Admin: 07/19/19 17:00 Dose: 333 mls/hr Documented by: Vancomycin HCl 1,250 mg/ (Sodium Chloride) 275 mls @ 166.667 mls/hr IV Q12H [facility] Insulin Human Lispro (Humalog) 0 unit SUB-Q Q6HR [facility]; Protocol Last Admin: 07/19/19 11:49 Dose: 10 unit Documented by: Lorazepam (Ativan) 2 mg IV Q1H PRN PRN Reason: CIWA-Ar 8-15 Lorazepam (Ativan) 4 mg IV Q1H PRN PRN Reason: CIWA-Ar 16-25 Lorazepam (Ativan) 4 mg IV Q15MIN PRN PRN Reason: CIWA-Ar >25 Magnesium Hydroxide (Milk Of Magnesia) 30 ml PO Q4H PRN PRN Reason: Constipation Metoclopramide HCl (Reglan) 10 mg PO Q6H PRN PRN Reason: Nausea And Vomiting Nicotine (Habitrol) 14 mg TD DAILY [facility] Last Admin: 07/19/19 10:10 Dose: 14 mg Documented by: Ondansetron HCl (Zofran) 4 mg IV Q8H PRN PRN Reason: Nausea And Vomiting Promethazine HCl (Phenergan) 25 mg HI Q6H PRN PRN Reason: Nausea And Vomiting Sodium Chloride (Sodium Chloride Flush Syringe 10 Ml) 10 ml IV PRN PRN PRN Reason: LINE FLUSH Last Admin: 07/18/19 22:12 Dose: 10 ml Documented by: Thiamine HCl (Vitamin B-1) 100 mg PO QDAY [facility] Last Admin: 07/19/19 10:10 Dose: 100 mg Documented by: Trazodone HCl (Desyrel) 50 mg PO QHS [facility] Last Admin: 07/18/19 22:04 Dose: 50 mg Documented by: Valsartan (Diovan) 160 mg PO DAILY [facility] Last Admin: 07/19/19 10:10 Dose: 160 mg Documented by: Physical Examination - Physical exam Narrative exam: On physical examination significant musculoskeletal findings relates to the right upper extremity here patient is noted to have an open wound at the palmar surface of the fifth metacarpal phalangeal joint no tendon or bone is exposed still slight foul odor present there is no redness or erythema at this point in time patient has good active and passive range of motion at the fifth digit Assessment and Plan Dog bite injury right hand Recommend IV antibiotics as well as dressing changes and wound clinic referral patient may benefit from whirlpool therapy
[2019-07-19] MEDS: AMPICILLIN/SULBACTA 3GM/100ML 3 GM/100 ML BAG IV SCH ×2 (18:20→23:29)
[2019-07-19] MEDS: traZODone 50 MG TAB PO SCH (22:54)
[2019-07-20] MEDS: AMPICILLIN/SULBACTA 3GM/100ML 3 GM/100 ML BAG IV SCH ×3 (06:28→19:31)
[2019-07-20] MEDS: INSULIN LISPRO 100 UNIT/ML SUB-Q SCH ×3 (06:45→17:37)
[2019-07-20 07:29] LABS: Hematocrit 33.3 % (35.5-45.6); Hemoglobin 11.5 gm/dl (11.8-15.2); Mean Corpuscular HGB Conc 35 % (32-34); Mean Corpuscular Volume 96 fl (84-94); Platelet Count 227 K/mm3 (140-440); Red Blood Count 3.47 M/mm3 (3.65-5.03); Red Cell Distribution Width 13.3 % (13.2-15.2)
[2019-07-20 07:54] LABS: BUN/Creatinine Ratio 13; Blood Urea Nitrogen 13 mg/dL (9-20); Calcium 7.9 mg/dL (8.4-10.2); Hemolysis Index 19
[2019-07-20] MEDS: ASPIRIN 325 MG TAB PO SCH (11:08)
[2019-07-20] MEDS: FOLIC ACID 1 MG TAB PO SCH (11:08)
[2019-07-20] MEDS: THIAMINE 100 MG TAB PO SCH (11:08)
[2019-07-20] MEDS: VANCOMYCIN 1,250 MG in SODIUM CHLORIDE 0.9% 250ML 250 ML IV SCH (11:08)
[2019-07-20] MEDS: NICOTINE 14 MG/24 HR PATCH TD SCH (11:09)
[2019-07-20] MEDS: FLUoxetine 20 MG CAP PO SCH (11:09)
--- NOTE | 2019-07-20 11:23 | Magnetic Resonance Report ---
MRI right hand with and without contrast HISTORY: R hand with abscess, osteomyelitis, dog bite. TECHNIQUE: 18 mL of MultiHance was given intravenously. COMPARISON: Right hand radiograph from yesterday FINDINGS: There is generalized dorsal soft tissue swelling centered over the ring finger MTP joint a nd extending over the little finger MTP joint and to a lesser extent into the interspace between the fourth and fifth metacarpals. There is also generalized enhancement within this region but no appreci able or drainable abscess identified. No fracture or malalignment. There are degenerative changes thr oughout the hands and the little finger is in flexion at the PIP joint with no discrete tendon tear i dentified. Flexor and extensor tendons are intact. The exam is not optimized for evaluation of the wr ist ligamentous structures. IMPRESSION: Soft tissue injuries as outlined above which may suggest moderate cellulitis given the c linical scenario. No organized drainable abscess identified, although there is considerable soft tiss ue swelling dorsally over the fourth and fifth MTP joints at present. Signer Name: Margarito Birch MD Signed: 07/20/2019 11:18 AM Workstation Name: [id number]
[2019-07-20] MEDS: VALSARTAN 160MG TAB PO SCH (13:27)
--- NOTE | 2019-07-20 14:16 | Consultation ---
History of Present Illness Consult date: 07/20/19 Reason for Consult: Seizure Chief complaint: Seizure History of present illness: Patient is a 63-year-old man with a history of alcohol abuse, hypertension, diabetes, schizophrenia, cocaine abuse. He presented 3 days ago with symptoms of weakness and numbness of the right hand. In the emergency room, patient was noted to have 2 seizures, associated with loss of bowel control. Patient was then given some medication for seizures, after which they resolved. Patient states he has never had a seizure prior to that. He states that around 8 years ago, he had trauma to the left side of the head, which caused brain injury in that region. He drinks alcohol daily, and his last drink was approximately 3 to 4 days ago. He states that around 4 to 5 days ago, a dog bit his right hand, after which he began to notice swelling in that area and mild local weakness. He states that the weakness is somewhat improved, however has not completely resolved. Past History Past Medical History: diabetes, hypertension, other (Traumatic brain injury, history of alcohol abuse, hypertension, diabetes, schizophrenia, cocaine abuse) Past Surgical History: No surgical history, Other (Reviewed) Social history: , smoking, alcohol abuse, other (Cocaine abuse) Family history: diabetes, hypertension Medications and Allergies Allergies Allergy/AdvReac Type Severity Reaction Status Date / Time No Known Allergies Allergy Verified 06/19/19 17:53 Home Medications Medication Instructions Recorded Confirmed Last Taken Type FLUoxetine [PROzac] 20 mg PO QDAY #14 capsule 06/23/19 07/19/19 Unknown Rx Insulin NPH, Human [NovoLIN N] 20 unit SUB-Q BIDDIAB 30 Days #10 06/23/19 07/19/19 Unknown Rx ml traZODone [Desyrel] 50 mg PO QHS #10 tablet 06/23/19 07/19/19 Unknown Rx Folic Acid 1 mg PO DAILY #30 tablet 06/25/19 07/19/19 Unknown Rx Nicotine [Habitrol] 14 mg TD DAILY #30 patch 06/25/19 07/19/19 Unknown Rx Thiamine [Vitamin B-1] 100 mg PO QDAY #30 tablet 06/25/19 07/19/19 Unknown Rx Active Meds: Active Medications Acetaminophen (Tylenol) 650 mg PO Q4H PRN PRN Reason: Pain, Mild (1-3) Aspirin (Aspirin) 325 mg PO QDAY JODIE Last Admin: 07/20/19 11:08 Dose: 325 mg Documented by: Atorvastatin Calcium (Lipitor) 40 mg PO QHS ON LICENSE OF [facility] Last Admin: 07/19/19 22:54 Dose: 40 mg Documented by: Bisacodyl (Dulcolax) 10 mg [place] QDAY PRN PRN Reason: Constipation Chlordiazepoxide HCl (Librium) 50 mg PO Q1H PRN PRN Reason: CIWA-Ar 8-15 Chlordiazepoxide HCl (Librium) 100 mg PO Q1H PRN PRN Reason: CIWA-Ar 16-25 Clonidine HCl (Catapres-Tts Patch) 0.1 mg TD Mo ON LICENSE OF [facility] Last Admin: 07/18/19 22:04 Dose: 0.1 mg Documented by: Dextrose (D50w (25gm) Syringe) 50 ml IV Q30MIN PRN; Protocol PRN Reason: Hypoglycemia Fluoxetine HCl (Prozac) 20 mg PO QDAY ON LICENSE OF [facility] Last Admin: 07/20/19 11:09 Dose: 20 mg Documented by: Folic Acid (Folvite) 1 mg PO DAILY ON LICENSE OF [facility] Last Admin: 07/20/19 11:08 Dose: 1 mg Documented by: Haloperidol Lactate (Haldol) 5 mg IV Q1H PRN PRN Reason: Unrespon. to mult. doses BZD's Heparin Sodium (Porcine) (Heparin) 5,000 unit SUB-Q Q12HR ON LICENSE OF [facility] Hydralazine HCl (Apresoline) 10 mg IV Q4H PRN PRN Reason: Hypertension Last Admin: 07/18/19 19:24 Dose: 10 mg Documented by: Hydralazine HCl (Apresoline) 10 mg IV Q4HR PRN PRN Reason: HTN SPB>160 OR DPB>105 Levetiracetam 1,000 mg/ (Dextrose) 110 mls @ 400 mls/hr IV Q12HR ON LICENSE OF [facility] Stop: 07/20/19 23:59 Last Infusion: 07/19/19 23:21 Dose: Infused Documented by: Ampicillin Sodium/Sulbactam Sodium (Unasyn/Ns 3 Gm/100 Ml) 3 gm in 100 mls @ 200 mls/hr IV Q6HR ON LICENSE OF [facility]; Protocol Last Admin: 07/20/19 06:28 Dose: 100 mls/hr Documented by: Vancomycin HCl 1,250 mg/ (Sodium Chloride) 275 mls @ 166.667 mls/hr IV Q12H ON LICENSE OF [facility] Last Admin: 07/20/19 11:08 Dose: 166.667 mls/hr Documented by: Insulin Human Lispro (Humalog) 0 unit SUB-Q Q6HR ON LICENSE OF [facility]; Protocol Last Admin: 07/20/19 13:27 Dose: 4 unit Documented by: Levetiracetam (Keppra) 1,000 mg PO BID ON LICENSE OF [facility] Lorazepam (Ativan) 2 mg IV Q1H PRN PRN Reason: CIWA-Ar 8-15 Lorazepam (Ativan) 4 mg IV Q1H PRN PRN Reason: CIWA-Ar 16-25 Lorazepam (Ativan) 4 mg IV Q15MIN PRN PRN Reason: CIWA-Ar >25 Magnesium Hydroxide (Milk Of Magnesia) 30 ml PO Q4H PRN PRN Reason: Constipation Metoclopramide HCl (Reglan) 10 mg PO Q6H PRN PRN Reason: Nausea And Vomiting Nicotine (Habitrol) 14 mg TD DAILY ON LICENSE OF [facility] Last Admin: 07/20/19 11:09 Dose: 14 mg Documented by: Ondansetron HCl (Zofran) 4 mg IV Q8H PRN PRN Reason: Nausea And Vomiting Promethazine HCl (Phenergan) 25 mg [place] Q6H PRN PRN Reason: Nausea And Vomiting Sodium Chloride (Sodium Chloride Flush Syringe 10 Ml) 10 ml IV PRN PRN PRN Reason: LINE FLUSH Last Admin: 07/20/19 11:09 Dose: 10 ml Documented by: Thiamine HCl (Vitamin B-1) 100 mg PO QDAY ON LICENSE OF [facility] Last Admin: 07/20/19 11:08 Dose: 100 mg Documented by: Trazodone HCl (Desyrel) 50 mg PO QHS ON LICENSE OF [facility] Last Admin: 07/19/19 22:54 Dose: 50 mg Documented by: Valsartan (Diovan) 160 mg PO DAILY ON LICENSE OF [facility] Last Admin: 07/20/19 13:27 Dose: 160 mg Documented by: Review of Systems All systems: negative Neurological: weakness, seizures Physical Examination - Vital Signs Vital Signs: Vital Signs Temp Pulse Resp BP Pulse Ox 98 F 97 H 11 L 190/112 97 07/17/19 10:32 07/17/19 10:32 07/17/19 10:32 07/17/19 10:32 07/17/19 10:32 - Physical Exam Narrative exam: Patient is alert, awake, oriented x4, follows complex commands. No dysarthria or aphasia noted. PERRL, EOMI, VFF, tongue midline, bilaterally intact to LT, no facial weakness noted. 5/5 strength in left upper extremity/left lower extremity/right lower extremity, 5/5 in proximal right upper extremity, 3/5 in distal right upper extremity. Bilaterally intact light touch. Bilaterally intact to FTN and HTS. 2+ reflexes throughout. - Constitutional General appearance: comfortable - EENT EENT: Present: ATNC, PERRL, mucous membranes moist, hearing intact, vision intact - Respiratory Respiratory: Present: lungs clear, normal breath sounds - Cardiovascular Cardiovascular: Present: regular rate, normal S1, normal S2 Extremities: Present: no clubbing, cyanosis, other (Noted to have injury to right hand with dressing) - Gastrointestinal Gastrointestinal: Present: normoactive bowel sounds, soft - Musculoskeletal Musculoskeletal: Present: other (Soft tissue swelling and pain noted in right hand region.) - Psychiatric Psychiatric: Present: mood/affect appropriate Results - Laboratory Findings CBC and BMP: 07/20/19 06:48 07/20/19 06:48 Abnormal Lab Findings: Abnormal Labs 07/17/19 07/17/19 07/17/19 10:59 10:59 11:00 RBC Hgb Hct MCV 96 H MCH 34 H MCHC 35 H Seg Neutrophils % 72.0 H ABG pO2 91.1 H ABG Hemoglobin 13.2 L Oxyhemoglobin 93.5 L Sodium 136 L Potassium Chloride 97.9 L Carbon Dioxide 21 L Glucose 465 H POC Glucose Calcium AST 51 H Alkaline Phosphatase 183 H NT-Pro-B Natriuret Pep 1105 H Albumin 3.2 L 07/17/19 07/17/19 07/17/19 11:16 13:08 14:20 RBC Hgb Hct MCV MCH MCHC Seg Neutrophils % ABG pO2 ABG Hemoglobin Oxyhemoglobin Sodium Potassium Chloride Carbon Dioxide Glucose POC Glucose 434 H 427 H 337 H Calcium AST Alkaline Phosphatase NT-Pro-B Natriuret Pep Albumin 07/17/19 07/18/19 07/18/19 18:09 00:02 05:40 RBC Hgb Hct MCV MCH MCHC Seg Neutrophils % ABG pO2 ABG Hemoglobin Oxyhemoglobin Sodium Potassium Chloride Carbon Dioxide Glucose POC Glucose 310 H 122 H 146 H Calcium AST Alkaline Phosphatase NT-Pro-B Natriuret Pep Albumin 07/18/19 07/19/19 07/19/19 21:15 01:14 06:12 RBC Hgb Hct MCV MCH MCHC Seg Neutrophils % ABG pO2 ABG Hemoglobin Oxyhemoglobin Sodium Potassium Chloride Carbon Dioxide Glucose POC Glucose 421 H 405 H 174 H Calcium AST Alkaline Phosphatase NT-Pro-B Natriuret Pep Albumin 07/19/19 07/19/19 07/19/19 07:35 11:34 17:08 RBC Hgb Hct MCV MCH MCHC Seg Neutrophils % ABG pO2 ABG Hemoglobin Oxyhemoglobin Sodium Potassium Chloride Carbon Dioxide Glucose POC Glucose 249 H 475 H 281 H Calcium AST Alkaline Phosphatase NT-Pro-B Natriuret Pep Albumin 07/19/19 07/20/19 07/20/19 21:42 06:48 06:48 RBC 3.47 L Hgb 11.5 L Hct 33.3 L D MCV 96 H MCH 33 H MCHC 35 H Seg Neutrophils % ABG pO2 ABG Hemoglobin Oxyhemoglobin Sodium Potassium 3.3 L Chloride Carbon Dioxide 21 L Glucose 323 H POC Glucose 212 H Calcium 7.9 L AST Alkaline Phosphatase NT-Pro-B Natriuret Pep Albumin 07/20/19 07/20/19 06:49 11:33 RBC Hgb Hct MCV MCH MCHC Seg Neutrophils % ABG pO2 ABG Hemoglobin Oxyhemoglobin Sodium Potassium Chloride Carbon Dioxide Glucose POC Glucose 322 H 326 H Calcium AST Alkaline Phosphatase NT-Pro-B Natriuret Pep Albumin Assessment and Plan Patient is a 63-year-old man with a history of alcohol abuse, hypertension, diabetes, schizophrenia, cocaine abuse, who presents with seizures. 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 Patient is also noted to have distal weakness in the right hand, which is likely due to localized swelling after dog bite which occurred approximately 1 to 2 days prior to admission. Plan: 1. Seizures: MRI brain: Encephalomalacia noted in left frontoparietal region. No acute abnormality. CT head: Left frontoparietal encephalomalacia noted. No acute abnormality. -Check EEG Seizures likely due to underlying traumatic brain injury from head injury that occurred approximately 8 years ago, and also with recent alcohol abuse and c ocaine abuse. Start patient on Keppra 750 mg twice daily. Discussed risks and benefits of this medication and patient agreed to taking this. No driving until cleared by DMV/DPS. Patient understood and accepted this. Further discussed seizure precautions. If patient is noted to have a seizure, please give Ativan 1 mg IV stat. If seizure does not resolve within 2 minutes, can repeat x1. Please call primary team and neurology if patient is noted to have a seizure. 2. Right hand weakness: Likely due to localized soft tissue swelling. Swelling is likely due to recent dog bite on the right hand. No evidence of acute infarct on MRI. Further management of soft tissue swelling per primary and surgery teams. Patient states that weakness is improving. However, if weakness persists, w kirt recommend for outpatient EMG/NCS. -Would recommend work-up for possible rabies per primary team. -We will continue to follow patient. Thank you for allowing me to take part in the care of this patient. William Bradford MD Neurology
--- NOTE | 2019-07-20 14:46 | Progress Note ---
Assessment and Plan Assessment and plan: Patient is a 63 yo AA man with a history of ETOH Dependence, Cocaine Dependence, HTN, DM type 2, Nicotine Dependence and Paranoid Schhizophrenia who presented to [facility] ED with initial right upper extremity numbness that started 3 days ago. Upon the patient's arrival to emergency department he began to have seizure-like activity. He was confused. He was found to have blood pressure of 204/130, as well as symptoms consistent with alcohol withdrawal seizures, Cocaine positive in Urine drug screen. During my exam, I noticed his right hand is swollen, when I examined he mentions being bite by a dog. * CT head without contrast IMPRESSION: CT findings remain unchanged No acute parenchymal lesion Encephalomalacia in the left lateral frontal and parietal lobes * pCXR IMPRESSION: No acute abnormality or significant change. 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 No acute intracranial process is identified. 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 Right hand numbness, due to Dog bite with Right hand cellulitis: consulted ID and Ortho, notified both, start IV antibodits, consulted Wound care also, get XRAY Toxic encephalopathy, poa: sales counselor on stopping Cocaine, his niece Lisa at bedside also re-interated cessation from drug and alcohol Ruled out Acute CVA Seizure episodes thought to be ETOH WD sz: treat with CIWA protocol, thiamine and folic acid Tobacco dependency: sales counselor on stopping Alcohol withdrawal seizure: treat with IV ativan prn Cocaine abuse: sales counselor on stopping Cardiomyopathy, TTE Conclusions: trace MR, trace TR, mild LV hypertrophy, estimated EF 45-50%, mild global hypokinesis of Left ventricle Type 2 DM: Sliding scale insulin, Accu-Chek, consistent carbohydrate diet when alert and awake only, hypoglycemia protocol. Hypertension urgency: IV hydralazine every 6 hours as needed for systolic greater than 185. Has been weaned off Cardizem drip DVT prophylaxis: SCD to bilateral lower extremities while in bed, prophylactic sq heparin. 07/20/2019: yesterday patient had syncopal seizures which spontaneously resolved, continue Keppra EEG today. MRI hand shows cellulitis, appreciate Ortho and ID recommendation, will follow and continue abx. History Interval history: Patient was seen and examined. Follow-up on current diagnosis of Seizure. Overnight uneventful as no events directly reported to me. Patient denies any chest pain, shortness breath, nausea/vomiting or severe headaches. Imaging, nursing note, chart, labs and old chart reviewed. Discussed with patient. Hospitalist Physical - Physical exam Narrative exam: Gen: unkempt, WDWN, NAD, Awake, Alert, Orientated x 2 HEENT: NCAT, EOMI, PERRL, OP Clear Neck: supple, no adenopathy, no thyromegaly, no JVD CVS/Heart: RRR, normal S1S2, pulses present bilaterally Chest/Lungs: CTA B, Symmetrical chest expansion, good air entry bilaterally GI/Abdomen: soft, NTND, good bowel sounds, no guarding or rebound /Bladder: no suprapubic tenderness, no CVA or paraspinal tenderness Extermity/Skin: swollen right hand with purulent drainage from cut at the base of the right pinky palm MCP MSK: FROM x 4 Neuro: CN 2-12 grossly intact, no new focal deficits Psych: calm - Constitutional Vitals: Temp Pulse Resp BP Pulse Ox 98.3 F 78 18 123/75 99 07/20/19 11:27 07/20/19 13:27 07/20/19 11:27 07/20/19 13:27 07/20/19 11:27 General appearance: Present: no acute distress. Absent: mild distress Results - Labs CBC & Chem 7: 07/20/19 06:48 07/20/19 06:48 Labs: Laboratory Last Values WBC 5.6 K/mm3 (4.5-11.0) 07/20/19 06:48 RBC 3.47 M/mm3 (3.65-5.03) L 07/20/19 06:48 Hgb 11.5 gm/dl (11.8-15.2) L 07/20/19 06:48 Hct 33.3 % (35.5-45.6) L D 07/20/19 06:48 MCV 96 fl (84-94) H 07/20/19 06:48 MCH 33 pg (28-32) H 07/20/19 06:48 MCHC 35 % (32-34) H 07/20/19 06:48 RDW 13.3 % (13.2-15.2) 07/20/19 06:48 Plt Count 227 K/mm3 (140-440) 07/20/19 06:48 Lymph % (Auto) 19.3 % (13.4-35.0) 07/17/19 10:59 Barber % (Auto) 6.3 % (0.0-7.3) 07/17/19 10:59 Eos % (Auto) 1.3 % (0.0-4.3) 07/17/19 10:59 Baso % (Auto) 1.1 % (0.0-1.8) 07/17/19 10:59 Lymph # 1.4 K/mm3 (1.2-5.4) 07/17/19 10:59 Barber # 0.4 K/mm3 (0.0-0.8) 07/17/19 10:59 Eos # 0.1 K/mm3 (0.0-0.4) 07/17/19 10:59 Baso # 0.1 K/mm3 (0.0-0.1) 07/17/19 10:59 Seg Neutrophils % 72.0 % (40.0-70.0) H 07/17/19 10:59 Seg Neutrophils # 5.1 K/mm3 (1.8-7.7) 07/17/19 10:59 PT 12.5 Sec. (12.2-14.9) 07/17/19 11:53 INR 0.92 (0.87-1.13) 07/17/19 11:53 APTT 26.2 Sec. (24.2-36.6) 07/17/19 11:53 ABG pH 7.404 pH Units (7.350-7.450) 07/17/19 11:00 ABG pCO2 39.7 mm Hg 07/17/19 11:00 ABG pO2 91.1 mm Hg (80.0-90.0) H 07/17/19 11:00 ABG HCO3 24.2 mmol/L (20.0-26.0) 07/17/19 11:00 ABG O2 Saturation 97.3 % (95.0-99.0) 07/17/19 11:00 ABG O2 Content 17.5 (0.0-44) 07/17/19 11:00 ABG Base Excess -0.4 mmol/L (-2.0-3.0) 07/17/19 11:00 ABG Hemoglobin 13.2 gm/dl (14.0-18.0) L 07/17/19 11:00 ABG Carboxyhemoglobin 3.4 % (0.0-5.0) 07/17/19 11:00 ABG Methemoglobin 0.5 % (0.0-1.5) 07/17/19 11:00 Oxyhemoglobin 93.5 % (95.0-99.0) L 07/17/19 11:00 FiO2 32 % 07/17/19 11:00 Sodium 137 mmol/L (137-145) 07/20/19 06:48 Potassium 3.3 mmol/L (3.6-5.0) L 07/20/19 06:48 Chloride 102.8 mmol/L (98-107) 07/20/19 06:48 Carbon Dioxide 21 mmol/L (22-30) L 07/20/19 06:48 Anion Gap 17 mmol/L 07/20/19 06:48 BUN 13 mg/dL (9-20) 07/20/19 06:48 Creatinine 1.0 mg/dL (0.8-1.5) 07/20/19 06:48 Estimated GFR > 60 ml/min 07/20/19 06:48 BUN/Creatinine Ratio 13 % 07/20/19 06:48 Glucose 323 mg/dL (75-100) H 07/20/19 06:48 POC Glucose 326 (70-105) H 07/20/19 11:33 Lactic Acid 1.70 mmol/L (0.7-2.0) 07/17/19 11:53 Calcium 7.9 mg/dL (8.4-10.2) L 07/20/19 06:48 Phosphorus 2.90 mg/dL (2.5-4.5) 07/17/19 10:59 Magnesium 1.90 mg/dL (1.7-2.3) 07/17/19 16:08 Total Bilirubin 0.50 mg/dL (0.1-1.2) 07/17/19 10:59 AST 51 units/L (5-40) H 07/17/19 10:59 ALT 31 units/L (7-56) 07/17/19 10:59 Alkaline Phosphatase 183 units/L (35-129) H 07/17/19 10:59 Troponin T < 0.010 ng/mL (0.00-0.029) 07/17/19 11:53 NT-Pro-B Natriuret Pep 1105 pg/mL (0-900) H 07/17/19 10:59 Total Protein 6.3 g/dL (6.3-8.2) 07/17/19 10:59 Albumin 3.2 g/dL (3.9-5) L 07/17/19 10:59 Albumin/Globulin Ratio 1.0 % 07/17/19 10:59 Triglycerides 123 mg/dL (2-149) 07/18/19 05:32 Cholesterol 174 mg/dL (50-199) 07/18/19 05:32 LDL Cholesterol Direct 110 mg/dL (50-130) 07/18/19 05:32 HDL Cholesterol 51 mg/dL (40-59) 07/18/19 05:32 Cholesterol/HDL Ratio 3.41 % 07/18/19 05:32 TSH 0.327 mlU/mL (0.270-4.200) 07/17/19 16:08 Free T4 1.16 ng/dL (0.76-1.46) 07/17/19 16:08 Urine Color Straw (Yellow) 07/17/19 12:14 Urine Turbidity Clear (Clear) 07/17/19 12:14 Urine pH 7.0 (5.0-7.0) 07/17/19 12:14 Ur Specific [place] 1.017 (1.003-1.030) 07/17/19 12:14 Urine Protein 100 mg/dl mg/dL (Negative) 07/17/19 12:14 Urine Glucose (UA) >=500 mg/dL (Negative) 07/17/19 12:14 Urine Ketones Tr mg/dL (Negative) 07/17/19 12:14 Urine Blood Sm (Negative) 07/17/19 12:14 Urine Nitrite Neg (Negative) 07/17/19 12:14 Urine Bilirubin Neg (Negative) 07/17/19 12:14 Urine Urobilinogen < 2.0 mg/dL (<2.0) 07/17/19 12:14 Ur Leukocyte Esterase Neg (Negative) 07/17/19 12:14 Urine WBC (Auto) < 1.0 /HPF (0.0-6.0) 07/17/19 12:14 Urine RBC (Auto) 1.0 /HPF (0.0-6.0) 07/17/19 12:14 U Epithel Cells (Auto) < 1.0 /HPF (0-13.0) 07/17/19 12:14 Urine Opiates Screen Presumptive negative 07/17/19 12:14 Urine Methadone Screen Presumptive negative 07/17/19 12:14 Ur Barbiturates Screen Presumptive negative 07/17/19 12:14 Ur Phencyclidine Scrn Presumptive negative 07/17/19 12:14 Ur Amphetamines Screen Presumptive negative 07/17/19 12:14 U Benzodiazepines Scrn Presumptive negative 07/17/19 12:14 Urine Cocaine Screen Presumptive positive 07/17/19 12:14 U Marijuana (THC) Screen Presumptive negative 07/17/19 12:14 Drugs of Abuse Note Disclamer 07/17/19 12:14 Plasma/Serum Alcohol < 0.01 % (0-0.07) 07/17/19 11:53 Active Medications - Current Medications Current Medications: Generic Name Dose Route Start Last Admin Trade Name Freq PRN Reason Stop Dose Admin Acetaminophen 650 mg 07/17/19 13:42 Tylenol PO Q4H PRN Pain, Mild (1-3) Aspirin 325 mg 07/18/19 10:00 07/20/19 11:08 Aspirin PO 325 mg QDAY JODIE Administration Atorvastatin Calcium 40 mg 07/17/19 22:00 07/19/19 22:54 Lipitor PO 40 mg QHS JODIE Administration Bisacodyl 10 mg 07/17/19 13:42 Dulcolax [place] QDAY PRN Constipation Chlordiazepoxide HCl 50 mg 07/17/19 11:52 Librium PO Q1H PRN CIWA-Ar 8-15 Chlordiazepoxide HCl 100 mg 07/17/19 11:52 Librium PO Q1H PRN CIWA-Ar 16-25 Clonidine HCl 0.1 mg 07/18/19 18:43 07/18/19 22:04 Catapres-Tts Patch TD 0.1 mg Mo JODIE Administration Dextrose 50 ml 07/17/19 13:40 D50w (25gm) Syringe IV Q30MIN PRN Hypoglycemia Protocol Fluoxetine HCl 20 mg 07/18/19 10:00 07/20/19 11:09 Prozac PO 20 mg QDAY JODIE Administration Folic Acid 1 mg 07/18/19 10:00 07/20/19 11:08 Folvite PO 1 mg DAILY JODIE Administration Haloperidol Lactate 5 mg 07/17/19 11:52 Haldol IV Q1H PRN Unrespon. to mult. doses BZD's Heparin Sodium (Porcine) 5,000 unit 07/20/19 22:00 Heparin SUB-Q Q12HR JODIE Hydralazine HCl 10 mg 07/17/19 21:52 07/18/19 19:24 Apresoline IV 10 mg Q4H PRN Administration Hypertension Hydralazine HCl 10 mg 07/18/19 18:41 Apresoline IV Q4HR PRN HTN SPB>160 OR DPB>105 Ampicillin Sodium/Sulbactam Sodium 3 gm in 100 mls @ 200 mls/hr 07/19/19 18:00 07/20/19 06:28 Unasyn/Ns 3 Gm/100 Ml IV 100 mls/hr Q6HR JODIE Administration Protocol Vancomycin HCl 1,250 mg/ 275 mls @ 166.667 mls/hr 07/20/19 08:00 07/20/19 11:08 Sodium Chloride IV 166.667 mls/hr Q12H JODIE Administration Insulin Human Lispro 0 unit 07/17/19 14:00 07/20/19 13:27 Humalog SUB-Q 4 unit Q6HR JODIE Administration Protocol Levetiracetam 750 mg 07/20/19 22:00 Keppra PO BID JODIE Lorazepam 2 mg 07/17/19 11:52 Ativan IV Q1H PRN CIWA-Ar 8-15 Lorazepam 4 mg 07/17/19 11:52 Ativan IV Q1H PRN CIWA-Ar 16-25 Lorazepam 4 mg 07/17/19 11:52 Ativan IV Q15MIN PRN CIWA-Ar >25 Magnesium Hydroxide 30 ml 07/17/19 13:42 Milk Of Magnesia PO Q4H PRN Constipation Metoclopramide HCl 10 mg 07/17/19 13:42 Reglan PO Q6H PRN Nausea And Vomiting Nicotine 14 mg 07/17/19 15:00 07/20/19 11:09 Habitrol TD 14 mg DAILY JODIE Administration Ondansetron HCl 4 mg 07/17/19 13:42 Zofran IV Q8H PRN Nausea And Vomiting Promethazine HCl 25 mg 07/17/19 13:42 Phenergan [place] Q6H PRN Nausea And Vomiting Sodium Chloride 10 ml 07/17/19 13:42 07/20/19 11:09 Sodium Chloride Flush Syringe 10 Ml IV 10 ml PRN PRN Administration LINE FLUSH Thiamine HCl 100 mg 07/18/19 10:00 07/20/19 11:08 Vitamin B-1 PO 100 mg QDAY JODIE Administration Trazodone HCl 50 mg 07/17/19 22:00 07/19/19 22:54 Desyrel PO 50 mg QHS JODIE Administration Valsartan 160 mg 07/18/19 19:00 07/20/19 13:27 Diovan PO 160 mg DAILY JODIE Administration
--- NOTE | 2019-07-20 15:02 | Progress Note ---
Assessment and Plan Cultures: 07/17/2019 blood culture: No growth A/P: 63-year-old male with alcohol dependence, substance abuse, diabetes, hypertension, schizophrenia, tobacco abuse, h/o incarceration was brought in by EMS on 07/17/2019 with seizures: #R hand cellulitis, dog bite, possible abscess: The dog belongs to his cousin. Patient does not have his cousin's phone number but name is Valentina Boo lives on [address] in [place]. Patient thinks his phone got stolen at his house. Dog's vaccination status is unknown. Per my discussion with [place] animal control (07/20/2019) they will not be able to track down the dog, so best would be to proceed with PEP with HRIG and rabies vaccinations. #Seizure disorder #Polysubstance abuse: Utox positive for cocaine on admission. #Uncontrolled DM Recs: f/u wound culture Continue IV Unasyn and Vancomycin Per my discussion with [place] animal control they will not be able to track down the dog, so best would be to proceed with PEP with HRIG and rabies vaccinations. Discussed with RN d/w Dr. Selby. Ashley Montanez MD, FACP [facility] ([facility] C: [phone] O: [phone] F: [phone] Subjective Date of service: 07/20/19 Interval history: Denies any fever. Had MRI done, no abscess or osteomyelitis. Objective - Exam Narrative Exam: Physical Exam: Constitutional: Alert, cooperative. No acute distress Head, Ears, Nose: Normocephalic, atraumatic. External ears, nose normal Eyes: Conjunctivae/corneas clear. No icterus. No ptosis. Neck: Supple, no meningeal signs Oral: no thrush Cardiovascular: S1, S2 normal. Respiratory: Good air entry, clear to auscultation bilaterally GI: Soft, non-tender; bowel sounds normal. No peritoneal signs Musculoskeletal: No pedal edema, no cyanosis. R hand webbing of 4th and 5th finger with wound with purulence, R hand swelling and tenderness Skin: No rash or abscess Hem/Lymphatic: No palpable cervical or supraclavicular nodes. No lymphangitis Psych: Mood ok. Affect flat Neurological: Awake, alert, oriented. No gross abnormality - Constitutional Vitals: Vital Signs Temp Pulse Resp BP Pulse Ox 98.3 F 78 18 123/75 99 07/20/19 11:27 07/20/19 13:27 07/20/19 11:27 07/20/19 13:27 07/20/19 11:27 Temperature -Last 24 Hours Temperature 98.3 F Temperature 98.9 F Temperature 98.9 F Temperature 98.8 F Temperature 98.7 F - Labs CBC & Chem 7: 07/20/19 06:48 07/20/19 06:48 Labs: Abnormal lab results 07/19/19 07/19/19 07/20/19 Range/Units 17:08 21:42 06:48 RBC 3.47 L (3.65-5.03) M/mm3 Hgb 11.5 L (11.8-15.2) gm/dl Hct 33.3 L D (35.5-45.6) % MCV 96 H (84-94) fl MCH 33 H (28-32) pg MCHC 35 H (32-34) % Potassium (3.6-5.0) mmol/L Carbon Dioxide (22-30) mmol/L Glucose (75-100) mg/dL POC Glucose 281 H 212 H (70-105) Calcium (8.4-10.2) mg/dL 07/20/19 07/20/19 07/20/19 Range/Units 06:48 06:49 11:33 RBC (3.65-5.03) M/mm3 Hgb (11.8-15.2) gm/dl Hct (35.5-45.6) % MCV (84-94) fl MCH (28-32) pg MCHC (32-34) % Potassium 3.3 L (3.6-5.0) mmol/L Carbon Dioxide 21 L (22-30) mmol/L Glucose 323 H (75-100) mg/dL POC Glucose 322 H 326 H (70-105) Calcium 7.9 L (8.4-10.2) mg/dL
--- NOTE | 2019-07-20 15:06 | Electroencephalogram Report ---
Electroencephalogram EEG Date of exam: 07/20/19 History: Patient is a 63-year-old man with a history of alcohol abuse, hypertension, diabetes, schizophrenia, cocaine abuse, who presents with seizures. Description: DESCRIPTION OF THE PROCEDURE: Electrodes were applied using Paste technique in positions dictated by International 10-20 system of placement. In addition to EEG data EKG and eye movements were recorded. DESCRIPTION OF ACTIVITIY: At the onset of this recording, the patient is lying supine. In the background we note a 8-9 Hz alpha posterior dominant rhythm that has an amplitude ranging 15-30uV. Additional low voltage beta activity occurs symmetrically at the anterior head regions bilaterally. There are no asymmetries in amplitude or frequency between hemispheres. During drowsiness and sleep, there is attenuation of alpha rhythm and low voltage theta activity occurs bilaterally. Intermittent photic stimulation was not performed. Hyperventilation was not performed. EKG lead showed a normal sinus rhythm. Significant motion and lead artifact noted. EEG Impression: 1) Normal awake and sleep activity. 2) No epileptiform activity or seizures were noted CLINICAL INTERPRETATION: This routine video EEG, performed during wakefulness and drowsiness is normal. [Note that a normal routine EEG does not rule out of the diagnosis of epilepsy. Should there be continued suspicion of seizures, a repeat study of longer duration can be considered.]
[2019-07-20] MEDS ORDERED: RABIES IMMUNE GLOBULIN P/F 300 UNIT/ML INJ 5 ML IM ONE (16:35)
[2019-07-20] MEDS ORDERED: RABIES VACCINE, HUMAN DIPLOID/PF 2.5 UNIT/ML VIAL IM ONE (16:36)
[2019-07-20] MEDS: levETIRAcetam 1,000 MG in DEXTROSE 5% IN WATER 100 ML IV SCH (16:47)
[2019-07-20] MEDS: levETIRAcetam 500 MG/5 ML ORAL LIQD PO SCH (21:32)
[2019-07-20] MEDS: HEPARIN 5,000 UNIT/1 ML VIAL SUB-Q SCH (21:32)
[2019-07-20] MEDS: traZODone 50 MG TAB PO SCH (21:33)
[2019-07-20] MEDS ORDERED: levETIRAcetam 500 MG TAB PO SCH (22:00)
[2019-07-21] MEDS: VANCOMYCIN 1,250 MG in SODIUM CHLORIDE 0.9% 250ML 250 ML IV SCH ×4 (00:02→21:59)
[2019-07-21] MEDS: AMPICILLIN/SULBACTA 3GM/100ML 3 GM/100 ML BAG IV SCH ×4 (00:03→17:36)
[2019-07-21] MEDS: INSULIN LISPRO 100 UNIT/ML SUB-Q SCH ×4 (00:15→17:37)
[2019-07-21 05:58] LABS: Hematocrit 36.7 % (35.5-45.6); Hemoglobin 12.5 gm/dl (11.8-15.2); Mean Corpuscular HGB Conc 34 % (32-34); Mean Corpuscular Volume 97 fl (84-94); Platelet Count 204 K/mm3 (140-440); Red Blood Count 3.77 M/mm3 (3.65-5.03); Red Cell Distribution Width 13.5 % (13.2-15.2)
[2019-07-21 06:14] LABS: BUN/Creatinine Ratio 15; Blood Urea Nitrogen 16 mg/dL (9-20); Hemolysis Index 23
[2019-07-21] MEDS: levETIRAcetam 500 MG/5 ML ORAL LIQD PO SCH ×2 (09:49→21:59)
[2019-07-21] MEDS: VALSARTAN 160MG TAB PO SCH (09:50)
[2019-07-21] MEDS: FOLIC ACID 1 MG TAB PO SCH (09:50)
[2019-07-21] MEDS: THIAMINE 100 MG TAB PO SCH (09:50)
[2019-07-21] MEDS: NICOTINE 14 MG/24 HR PATCH TD SCH (09:50)
[2019-07-21] MEDS: ASPIRIN 325 MG TAB PO SCH (09:50)
[2019-07-21] MEDS: FLUoxetine 20 MG CAP PO SCH (09:50)
[2019-07-21] MEDS: HEPARIN 5,000 UNIT/1 ML VIAL SUB-Q SCH ×2 (09:53→21:59)
[2019-07-21] MEDS ORDERED: levETIRAcetam 500 MG TAB PO SCH (10:00)
--- NOTE | 2019-07-21 12:21 | Progress Note ---
Assessment and Plan Patient is a 63-year-old man with a history of alcohol abuse, hypertension, diabetes, schizophrenia, cocaine abuse, who presents with seizures. 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 Patient is also noted to have distal weakness in the right hand, which is likely due to localized swelling after dog bite which occurred approximately 1 to 2 days prior to admission. Plan: 1. Seizures: MRI brain: Encephalomalacia noted in left frontoparietal region. No acute abnormality. CT head: Left frontoparietal encephalomalacia noted. No acute abnormality. -EEG: No seizures or epileptiform activity. Seizures likely due to underlying traumatic brain injury from head injury that occurred approximately 8 years ago, and also with recent alcohol abuse and cocaine abuse. Continue patient on Keppra 750 mg twice daily. Discussed risks and benefits of this medication and patient agreed to taking this. No driving until cleared by DMV/DPS. Patient understood and accepted this. Further discussed seizure precautions. If patient is noted to have a seizure, please give Ativan 1 mg IV stat. If seizure does not resolve within 2 minutes, can repeat x1. Please call primary team and neurology if patient is noted to have a seizure. -Recommend for patient to follow-up with neurology in 3 to 4 weeks after discharge. 2. Right hand weakness: Likely due to localized soft tissue swelling. Swelling is likely due to recent dog bite on the right hand. No evidence of acute infarct on MRI. Further management of soft tissue swelling per primary and surgery teams. Patient states that weakness is improving. However, if weakness persists, would recommend for outpatient EMG/NCS. -Would recommend work-up for possible rabies per primary team. -We will sign off. Please call with any questions. Thank you for allowing me to take part in the care of this patient. William Bradford MD Neurology Subjective Date of service: 07/21/19 Principal diagnosis: Seizure Interval history: No acute events overnight. Objective - Exam Narrative Exam: Patient is alert, awake, oriented x4, follows complex commands. No dysarthria or aphasia noted. PERRL, EOMI, VFF, tongue midline, bilaterally intact to LT, no facial weakness noted. 5/5 strength in left upper extremity/left lower extremi ty/right lower extremity, 5/5 in proximal right upper extremity, 3/5 in distal right upper extremity. Bilaterally intact light touch. Bilaterally intact to FTN and HTS. 2+ reflexes throughout. - Vital Sign Vital Signs - 12hr 07/21/19 07/21/19 07/21/19 04:49 09:31 09:50 Temperature 98.4 F Pulse Rate 78 80 Respiratory 18 Rate Blood Pressure 153/91 123/83 O2 Sat by Pulse 100 98 Oximetry - General Apperance Constitutional: comfortable - EENT EENT: ATNC, PERRL, mucous membranes moist, hearing intact, vision intact - Respiratory Respiratory: lungs clear, normal breath sounds - Cardiovascular Cardiovascular: regular rate, normal S1, normal S2 Extremities: no clubbing, cyanosis, other (Swelling in region of right hand) - Gastrointestinal Gastrointestinal: normoactive bowel sounds, soft, non-tender - Musculoskeletal Musculoskeletal: pain in joint (Right hand) - Psychiatric Psychiatric: mood/affect appropriate - Laboratory Findings CBC and BMP: 07/21/19 05:15 07/21/19 05:15 Abnormal Lab Findings: Abnormal Labs 07/17/19 07/17/19 07/17/19 10:59 10:59 11:00 RBC Hgb Hct MCV 96 H MCH 34 H MCHC 35 H Seg Neutrophils % 72.0 H ABG pO2 91.1 H ABG Hemoglobin 13.2 L Oxyhemoglobin 93.5 L Sodium 136 L Potassium Chloride 97.9 L Carbon Dioxide 21 L Glucose 465 H POC Glucose Calcium AST 51 H Alkaline Phosphatase 183 H NT-Pro-B Natriuret Pep 1105 H Albumin 3.2 L 07/17/19 07/17/19 07/17/19 11:16 13:08 14:20 RBC Hgb Hct MCV MCH MCHC Seg Neutrophils % ABG pO2 ABG Hemoglobin Oxyhemoglobin Sodium Potassium Chloride Carbon Dioxide Glucose POC Glucose 434 H 427 H 337 H Calcium AST Alkaline Phosphatase NT-Pro-B Natriuret Pep Albumin 07/17/19 07/18/19 07/18/19 18:09 00:02 05:40 RBC Hgb Hct MCV MCH MCHC Seg Neutrophils % ABG pO2 ABG Hemoglobin Oxyhemoglobin Sodium Potassium Chloride Carbon Dioxide Glucose POC Glucose 310 H 122 H 146 H Calcium AST Alkaline Phosphatase NT-Pro-B Natriuret Pep Albumin 07/18/19 07/19/19 07/19/19 21:15 01:14 06:12 RBC Hgb Hct MCV MCH MCHC Seg Neutrophils % ABG pO2 ABG Hemoglobin Oxyhemoglobin Sodium Potassium Chloride Carbon Dioxide Glucose POC Glucose 421 H 405 H 174 H Calcium AST Alkaline Phosphatase NT-Pro-B Natriuret Pep Albumin 07/19/19 07/19/19 07/19/19 07:35 11:34 17:08 RBC Hgb Hct MCV MCH MCHC Seg Neutrophils % ABG pO2 ABG Hemoglobin Oxyhemoglobin Sodium Potassium Chloride Carbon Dioxide Glucose POC Glucose 249 H 475 H 281 H Calcium AST Alkaline Phosphatase NT-Pro-B Natriuret Pep Albumin 07/19/19 07/20/19 07/20/19 21:42 06:48 06:48 RBC 3.47 L Hgb 11.5 L Hct 33.3 L D MCV 96 H MCH 33 H MCHC 35 H Seg Neutrophils % ABG pO2 ABG Hemoglobin Oxyhemoglobin Sodium Potassium 3.3 L Chloride Carbon Dioxide 21 L Glucose 323 H POC Glucose 212 H Calcium 7.9 L AST Alkaline Phosphatase NT-Pro-B Natriuret Pep Albumin 07/20/19 07/20/19 07/20/19 06:49 11:33 17:03 RBC Hgb Hct MCV MCH MCHC Seg Neutrophils % ABG pO2 ABG Hemoglobin Oxyhemoglobin Sodium Potassium Chloride Carbon Dioxide Glucose POC Glucose 322 H 326 H 364 H Calcium AST Alkaline Phosphatase NT-Pro-B Natriuret Pep Albumin 07/20/19 07/21/19 07/21/19 21:26 05:15 05:15 RBC Hgb Hct MCV 97 H MCH 33 H MCHC Seg Neutrophils % ABG pO2 ABG Hemoglobin Oxyhemoglobin Sodium 135 L Potassium Chloride Carbon Dioxide Glucose 399 H POC Glucose 205 H Calcium 8.0 L AST Alkaline Phosphatase NT-Pro-B Natriuret Pep Albumin 07/21/19 07/21/19 06:10 12:07 RBC Hgb Hct MCV MCH MCHC Seg Neutrophils % ABG pO2 ABG Hemoglobin Oxyhemoglobin Sodium Potassium Chloride Carbon Dioxide Glucose POC Glucose 471 H 451 H Calcium AST Alkaline Phosphatase NT-Pro-B Natriuret Pep Albumin
[2019-07-21] MEDS ORDERED: INSULIN LISPRO 100 UNIT/ML SUB-Q ONE (12:31)
--- NOTE | 2019-07-21 13:34 | Progress Note ---
Assessment and Plan Assessment and plan: Patient is a 63 yo AA man with a history of ETOH Dependence, Cocaine Dependence, HTN, DM type 2, Nicotine Dependence and Paranoid Schhizophrenia who presented to [facility] ED with initial right upper extremity numbness that started 3 days ago. Upon the patient's arrival to emergency department he began to have seizure-like activity. He was confused. He was found to have blood pressure of 204/130, as well as symptoms consistent with alcohol withdrawal seizures, Cocaine positive in Urine drug screen. During my exam, I noticed his right hand is swollen, when I examined he mentions being bite by a dog. * CT head without contrast IMPRESSION: CT findings remain unchanged No acute parenchymal lesion Encephalomalacia in the left lateral frontal and parietal lobes * pCXR IMPRESSION: No acute abnormality or significant change. 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 No acute intracranial process is identified. 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 Right hand numbness, due to Dog bite with Right hand cellulitis: consulted ID and Ortho, notified both, start IV antibodies, consulted Wound care also, get XRAY Toxic encephalopathy, poa: branch credit counselor on stopping Cocaine, his niece Lisa at bedside also re-interated cessation from drug and alcohol Ruled out Acute CVA Seizure episodes thought to be ETOH WD sz: treat with CIWA protocol, thiamine and folic acid Tobacco dependency: branch credit counselor on stopping Alcohol withdrawal seizure: treat with IV ativan prn Cocaine abuse: branch credit counselor on stopping Cardiomyopathy, TTE Conclusions: trace MR, trace TR, mild LV hypertrophy, estimated EF 45-50%, mild global hypokinesis of Left ventricle Type 2 DM: Sliding scale insulin, Accu-Chek, consistent carbohydrate diet when alert and awake only, hypoglycemia protocol. Hypertension urgency: IV hydralazine every 6 hours as needed for systolic greater than 185. Has been weaned off Cardizem drip DVT prophylaxis: SCD to bilateral lower extremities while in bed, prophylactic sq heparin. 07/20/2019: yesterday patient had syncopal seizures which spontaneously resolved, continue Keppra EEG today. MRI hand shows cellulitis, appreciate Ortho and ID recommendation, will follow and continue abx. 07/21/2019: No more seizure on iv keppra, switch oral keppra, treat for Rabies per ID History Interval history: Patient was seen and examined. Follow-up on current diagnosis of Seizure. Overnight uneventful as no events directly reported to me. Patient denies any chest pain, shortness breath, nausea/vomiting or severe headaches. Imaging, nursing note, chart, labs and old chart reviewed. Discussed with patient. Hospitalist Physical - Physical exam Narrative exam: Gen: unkempt, WDWN, NAD, Awake, Alert, Orientated x 2 HEENT: NCAT, EOMI, PERRL, OP Clear Neck: supple, no adenopathy, no thyromegaly, no JVD CVS/Heart: RRR, normal S1S2, pulses present bilaterally Chest/Lungs: CTA B, Symmetrical chest expansion, good air entry bilaterally GI/Abdomen: soft, NTND, good bowel sounds, no guarding or rebound /Bladder: no suprapubic tenderness, no CVA or paraspinal tenderness Extermity/Skin: swollen right hand with purulent drainage from cut at the base of the right pinky palm MCP MSK: FROM x 4 Neuro: CN 2-12 grossly intact, no new focal deficits Psych: calm - Constitutional Vitals: Temp Pulse Resp BP Pulse Ox 98.5 F 82 20 131/70 98 07/21/19 11:56 07/21/19 11:56 07/21/19 11:56 07/21/19 11:56 07/21/19 11:56 General appearance: Present: no acute distress. Absent: mild distress Results - Labs CBC & Chem 7: 07/21/19 05:15 07/21/19 05:15 Labs: Laboratory Last Values WBC 5.3 K/mm3 (4.5-11.0) 07/21/19 05:15 RBC 3.77 M/mm3 (3.65-5.03) 07/21/19 05:15 Hgb 12.5 gm/dl (11.8-15.2) 07/21/19 05:15 Hct 36.7 % (35.5-45.6) 07/21/19 05:15 MCV 97 fl (84-94) H 07/21/19 05:15 MCH 33 pg (28-32) H 07/21/19 05:15 MCHC 34 % (32-34) 07/21/19 05:15 RDW 13.5 % (13.2-15.2) 07/21/19 05:15 Plt Count 204 K/mm3 (140-440) 07/21/19 05:15 Lymph % (Auto) 19.3 % (13.4-35.0) 07/17/19 10:59 [place] % (Auto) 6.3 % (0.0-7.3) 07/17/19 10:59 Eos % (Auto) 1.3 % (0.0-4.3) 07/17/19 10:59 Baso % (Auto) 1.1 % (0.0-1.8) 07/17/19 10:59 Lymph # 1.4 K/mm3 (1.2-5.4) 07/17/19 10:59 [place] # 0.4 K/mm3 (0.0-0.8) 07/17/19 10:59 Eos # 0.1 K/mm3 (0.0-0.4) 07/17/19 10:59 Baso # 0.1 K/mm3 (0.0-0.1) 07/17/19 10:59 Seg Neutrophils % 72.0 % (40.0-70.0) H 07/17/19 10:59 Seg Neutrophils # 5.1 K/mm3 (1.8-7.7) 07/17/19 10:59 PT 12.5 Sec. (12.2-14.9) 07/17/19 11:53 INR 0.92 (0.87-1.13) 07/17/19 11:53 APTT 26.2 Sec. (24.2-36.6) 07/17/19 11:53 ABG pH 7.404 pH Units (7.350-7.450) 07/17/19 11:00 ABG pCO2 39.7 mm Hg 07/17/19 11:00 ABG pO2 91.1 mm Hg (80.0-90.0) H 07/17/19 11:00 ABG HCO3 24.2 mmol/L (20.0-26.0) 07/17/19 11:00 ABG O2 Saturation 97.3 % (95.0-99.0) 07/17/19 11:00 ABG O2 Content 17.5 (0.0-44) 07/17/19 11:00 ABG Base Excess -0.4 mmol/L (-2.0-3.0) 07/17/19 11:00 ABG Hemoglobin 13.2 gm/dl (14.0-18.0) L 07/17/19 11:00 ABG Carboxyhemoglobin 3.4 % (0.0-5.0) 07/17/19 11:00 ABG Methemoglobin 0.5 % (0.0-1.5) 07/17/19 11:00 Oxyhemoglobin 93.5 % (95.0-99.0) L 07/17/19 11:00 FiO2 32 % 07/17/19 11:00 Sodium 135 mmol/L (137-145) L 07/21/19 05:15 Potassium 4.0 mmol/L (3.6-5.0) D 07/21/19 05:15 Chloride 99.9 mmol/L (98-107) 07/21/19 05:15 Carbon Dioxide 23 mmol/L (22-30) 07/21/19 05:15 Anion Gap 16 mmol/L 07/21/19 05:15 BUN 16 mg/dL (9-20) 07/21/19 05:15 Creatinine 1.1 mg/dL (0.8-1.5) 07/21/19 05:15 Estimated GFR > 60 ml/min 07/21/19 05:15 BUN/Creatinine Ratio 15 % 07/21/19 05:15 Glucose 399 mg/dL (75-100) H 07/21/19 05:15 POC Glucose 451 (70-105) H 07/21/19 12:07 Lactic Acid 1.70 mmol/L (0.7-2.0) 07/17/19 11:53 Calcium 8.0 mg/dL (8.4-10.2) L 07/21/19 05:15 Phosphorus 2.90 mg/dL (2.5-4.5) 07/17/19 10:59 Magnesium 1.90 mg/dL (1.7-2.3) 07/17/19 16:08 Total Bilirubin 0.50 mg/dL (0.1-1.2) 07/17/19 10:59 AST 51 units/L (5-40) H 07/17/19 10:59 ALT 31 units/L (7-56) 07/17/19 10:59 Alkaline Phosphatase 183 units/L (35-129) H 07/17/19 10:59 Troponin T < 0.010 ng/mL (0.00-0.029) 07/17/19 11:53 NT-Pro-B Natriuret Pep 1105 pg/mL (0-900) H 07/17/19 10:59 Total Protein 6.3 g/dL (6.3-8.2) 07/17/19 10:59 Albumin 3.2 g/dL (3.9-5) L 07/17/19 10:59 Albumin/Globulin Ratio 1.0 % 07/17/19 10:59 Triglycerides 123 mg/dL (2-149) 07/18/19 05:32 Cholesterol 174 mg/dL (50-199) 07/18/19 05:32 LDL Cholesterol Direct 110 mg/dL (50-130) 07/18/19 05:32 HDL Cholesterol 51 mg/dL (40-59) 07/18/19 05:32 Cholesterol/HDL Ratio 3.41 % 07/18/19 05:32 TSH 0.327 mlU/mL (0.270-4.200) 07/17/19 16:08 Free T4 1.16 ng/dL (0.76-1.46) 07/17/19 16:08 Urine Color Straw (Yellow) 07/17/19 12:14 Urine Turbidity Clear (Clear) 07/17/19 12:14 Urine pH 7.0 (5.0-7.0) 07/17/19 12:14 Ur Specific [place] 1.017 (1.003-1.030) 07/17/19 12:14 Urine Protein 100 mg/dl mg/dL (Negative) 07/17/19 12:14 Urine Glucose (UA) >=500 mg/dL (Negative) 07/17/19 12:14 Urine Ketones Tr mg/dL (Negative) 07/17/19 12:14 Urine Blood Sm (Negative) 07/17/19 12:14 Urine Nitrite Neg (Negative) 07/17/19 12:14 Urine Bilirubin Neg (Negative) 07/17/19 12:14 Urine Urobilinogen < 2.0 mg/dL (<2.0) 07/17/19 12:14 Ur Leukocyte Esterase Neg (Negative) 07/17/19 12:14 Urine WBC (Auto) < 1.0 /HPF (0.0-6.0) 07/17/19 12:14 Urine RBC (Auto) 1.0 /HPF (0.0-6.0) 07/17/19 12:14 U Epithel Cells (Auto) < 1.0 /HPF (0-13.0) 07/17/19 12:14 Urine Opiates Screen Presumptive negative 07/17/19 12:14 Urine Methadone Screen Presumptive negative 07/17/19 12:14 Ur Barbiturates Screen Presumptive negative 07/17/19 12:14 Ur Phencyclidine Scrn Presumptive negative 07/17/19 12:14 Ur Amphetamines Screen Presumptive negative 07/17/19 12:14 U Benzodiazepines Scrn Presumptive negative 07/17/19 12:14 Urine Cocaine Screen Presumptive positive 07/17/19 12:14 U Marijuana (THC) Screen Presumptive negative 07/17/19 12:14 Drugs of Abuse Note Disclamer 07/17/19 12:14 Plasma/Serum Alcohol < 0.01 % (0-0.07) 07/17/19 11:53 Ayala/IV: Voiding Method Condom Catheter IV Catheter Type [Left Forearm INT / Saline Lock ] IV Catheter Type [Left INT / Saline Lock Antecubital] Active Medications - Current Medications Current Medications: Generic Name Dose Route Start Last Admin Trade Name Freq PRN Reason Stop Dose Admin Acetaminophen 650 mg 07/17/19 13:42 Tylenol PO Q4H PRN Pain, Mild (1-3) Aspirin 325 mg 07/18/19 10:00 07/21/19 09:50 Aspirin PO 325 mg QDAY JODIE Administration Atorvastatin Calcium 40 mg 07/17/19 22:00 07/20/19 21:34 Lipitor PO 40 mg QHS JODIE Administration Bisacodyl 10 mg 07/17/19 13:42 Dulcolax AL QDAY PRN Constipation Chlordiazepoxide HCl 50 mg 07/17/19 11:52 Librium PO Q1H PRN CIWA-Ar 8-15 Chlordiazepoxide HCl 100 mg 07/17/19 11:52 Librium PO Q1H PRN CIWA-Ar 16-25 Clonidine HCl 0.1 mg 07/18/19 18:43 07/18/19 22:04 Catapres-Tts Patch TD 0.1 mg Mo JODIE Administration Dextrose 50 ml 07/17/19 13:40 D50w (25gm) Syringe IV Q30MIN PRN Hypoglycemia Protocol Fluoxetine HCl 20 mg 07/18/19 10:00 07/21/19 09:50 Prozac PO 20 mg QDAY JODIE Administration Folic Acid 1 mg 07/18/19 10:00 07/21/19 09:50 Folvite PO 1 mg DAILY JODIE Administration Haloperidol Lactate 5 mg 07/17/19 11:52 Haldol IV Q1H PRN Unrespon. to mult. doses BZD's Heparin Sodium (Porcine) 5,000 unit 07/20/19 22:00 07/21/19 09:53 Heparin SUB-Q 5,000 unit Q12HR JODIE Administration Hydralazine HCl 10 mg 07/18/19 18:41 Apresoline IV Q4HR PRN HTN SPB>160 OR DPB>105 Ampicillin Sodium/Sulbactam Sodium 3 gm in 100 mls @ 200 mls/hr 07/19/19 18:00 07/21/19 13:10 Unasyn/Ns 3 Gm/100 Ml IV 100 mls/hr Q6HR JODIE Administration Protocol Vancomycin HCl 1,250 mg/ 275 mls @ 166.667 mls/hr 07/20/19 08:00 07/21/19 09:49 Sodium Chloride IV 166.667 mls/hr Q12H JODIE Administration Insulin Human Lispro 0 unit 07/17/19 14:00 07/21/19 13:10 Humalog SUB-Q 10 unit Q6HR JODIE Administration Protocol Insulin Human NPH 20 unit 07/21/19 17:00 Humulin N SUB-Q BIDDIAB JODIE Levetiracetam 750 mg 07/20/19 22:00 07/21/19 09:49 Keppra PO 750 mg BID JODIE Administration Lorazepam 2 mg 07/17/19 11:52 Ativan IV Q1H PRN CIWA-Ar 8-15 Lorazepam 4 mg 07/17/19 11:52 Ativan IV Q1H PRN CIWA-Ar 16-25 Lorazepam 4 mg 07/17/19 11:52 Ativan IV Q15MIN PRN CIWA-Ar >25 Magnesium Hydroxide 30 ml 07/17/19 13:42 Milk Of Magnesia PO Q4H PRN Constipation Metoclopramide HCl 10 mg 07/17/19 13:42 Reglan PO Q6H PRN Nausea And Vomiting Nicotine 14 mg 07/17/19 15:00 07/21/19 09:50 Habitrol TD 14 mg DAILY JODIE Administration Ondansetron HCl 4 mg 07/17/19 13:42 Zofran IV Q8H PRN Nausea And Vomiting Promethazine HCl 25 mg 07/17/19 13:42 Phenergan AL Q6H PRN Nausea And Vomiting Sodium Chloride 10 ml 07/17/19 13:42 07/21/19 09:50 Sodium Chloride Flush Syringe 10 Ml IV 10 ml PRN PRN Administration LINE FLUSH Thiamine HCl 100 mg 07/18/19 10:00 07/21/19 09:50 Vitamin B-1 PO 100 mg QDAY JODIE Administration Trazodone HCl 50 mg 07/17/19 22:00 07/20/19 21:33 Desyrel PO 50 mg QHS JODIE Administration Valsartan 160 mg 07/18/19 19:00 07/21/19 09:50 Diovan PO 160 mg DAILY JODIE Administration
--- NOTE | 2019-07-21 15:30 | Progress Note ---
Assessment and Plan Cultures: 07/17/2019 blood culture: No growth R hand wound culture: Staph aureus A/P: 63-year-old male with alcohol dependence, substance abuse, diabetes, hypertension, schizophrenia, tobacco abuse, h/o incarceration was brought in by EMS on 07/17/2019 with seizures: #R hand cellulitis, dog bite, possible abscess: The dog belongs to his cousin. Patient does not have his cousin's phone number but name is Valentina Boo lives on [address] in [place]. Patient thinks his phone got stolen at his house. Dog's vaccination status is unknown. Per my discussion with [place] animal control (07/20/2019) they will not be able to track down the dog, so best would be to proceed with PEP with HRIG and rabies vaccinations. Update from animal control (07/21/2019), they were able to track down the dog, dog is well and the bite happened on 07/09/2019, so rabies is not a concern anymore. #Seizure disorder #Polysubstance abuse: Utox positive for cocaine on admission. Not a candidate for IV abx on discharge. #Uncontrolled DM Recs: f/u final wound culture continue wound care Continue IV Unasyn and Vancomycin Additional rabies vaccinations are not needed d/w Dr. Selby. Ashley Montanez MD, FACP [facility] ([facility] C: [phone] O: [phone] F: [phone] Subjective Date of service: 07/21/19 Principal diagnosis: Seizure Interval history: Denies any fever. Swelling in R arm. Pain + but controlled. Objective - Exam Narrative Exam: Physical Exam: Constitutional: Alert, cooperative. No acute distress Head, Ears, Nose: Normocephalic, atraumatic. External ears, nose normal Eyes: Conjunctivae/corneas clear. No icterus. No ptosis. Neck: Supple, no meningeal signs Oral: no thrush Cardiovascular: S1, S2 normal. Respiratory: Good air entry, clear to auscultation bilaterally GI: Soft, non-tender; bowel sounds normal. No peritoneal signs Musculoskeletal: No pedal edema, no cyanosis. R hand webbing of 4th and 5th finger with wound with purulence, R hand swelling and tenderness Skin: No rash or abscess Hem/Lymphatic: No palpable cervical or supraclavicular nodes. No lymphangitis Psych: Mood ok. Affect flat Neurological: Awake, alert, oriented. No gross abnormality - Constitutional Vitals: Vital Signs Temp Pulse Resp BP Pulse Ox 98.5 F 79 20 95/48 98 07/21/19 11:56 07/21/19 15:09 07/21/19 11:56 07/21/19 15:09 07/21/19 11:56 Temperature -Last 24 Hours Temperature 98.5 F Temperature 98.4 F Temperature 98.2 F Temperature 98.4 F - Labs CBC & Chem 7: 07/21/19 05:15 07/21/19 05:15 Labs: Abnormal lab results 07/20/19 07/20/19 07/21/19 Range/Units 17:03 21:26 05:15 MCV 97 H (84-94) fl MCH 33 H (28-32) pg Sodium (137-145) mmol/L Glucose (75-100) mg/dL POC Glucose 364 H 205 H (70-105) Calcium (8.4-10.2) mg/dL 07/21/19 07/21/19 07/21/19 Range/Units 05:15 06:10 12:07 MCV (84-94) fl MCH (28-32) pg Sodium 135 L (137-145) mmol/L Glucose 399 H (75-100) mg/dL POC Glucose 471 H 451 H (70-105) Calcium 8.0 L (8.4-10.2) mg/dL
[2019-07-21] MEDS: INSULIN NPH, HUMAN 100 UNIT/1 ML SUB-Q SCH (17:37)
[2019-07-21] MEDS: traZODone 50 MG TAB PO SCH (21:59)
[2019-07-22] MEDS: INSULIN LISPRO 100 UNIT/ML SUB-Q SCH ×5 (00:12→23:52)
[2019-07-22] MEDS: AMPICILLIN/SULBACTA 3GM/100ML 3 GM/100 ML BAG IV SCH ×3 (00:46→18:22)
[2019-07-22] MEDS: INSULIN NPH, HUMAN 100 UNIT/1 ML SUB-Q SCH ×2 (08:12→17:47)
--- NOTE | 2019-07-22 09:02 | Progress Note ---
Assessment and Plan Assessment and plan: Patient is a 63 yo AA man with a history of ETOH Dependence, Cocaine Dependence, HTN, DM type 2, Nicotine Dependence and Paranoid Schhizophrenia who presented to [facility] ED with initial right upper extremity numbness that started 3 days ago. Upon the patient's arrival to emergency department he began to have seizure-like activity. He was confused. He was found to have blood pressure of 204/130, as well as symptoms consistent with alcohol withdrawal seizures, Cocaine positive in Urine drug screen. During my exam, I noticed his right hand is swollen, when I examined he mentions being bite by a dog. * CT head without contrast IMPRESSION: CT findings remain unchanged No acute parenchymal lesion Encephalomalacia in the left lateral frontal and parietal lobes * pCXR IMPRESSION: No acute abnormality or significant change. 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 No acute intracranial process is identified. 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 Right hand numbness, due to Dog bite with Right hand cellulitis: consulted ID and Ortho, notified both, start IV antibodies, consulted Wound care also, get XRAY Toxic encephalopathy, poa: group home counselor on stopping Cocaine, his niece Lisa at bedside also re-interated cessation from drug and alcohol Ruled out Acute CVA Seizure episodes thought to be ETOH WD sz: treat with CIWA protocol, thiamine and folic acid Tobacco dependency: group home counselor on stopping Alcohol withdrawal seizure: treat with IV ativan prn Cocaine abuse: group home counselor on stopping Cardiomyopathy, TTE Conclusions: trace MR, trace TR, mild LV hypertrophy, estimated EF 45-50%, mild global hypokinesis of Left ventricle Type 2 DM: Sliding scale insulin, Accu-Chek, consistent carbohydrate diet when alert and awake only, hypoglycemia protocol. Hypertension urgency: IV hydralazine every 6 hours as needed for systolic greater than 185. Has been weaned off Cardizem drip DVT prophylaxis: SCD to bilateral lower extremities while in bed, prophylactic sq heparin. 07/20/2019: yesterday patient had syncopal seizures which spontaneously resolved, continue Keppra EEG today. MRI hand shows cellulitis, appreciate Ortho and ID recommendation, will follow and continue abx. 07/21/2019: No more seizure on iv keppra, switch oral keppra, treated for Rabies per ID 07/22/2019: Doing well, no more seizures, close to being discharge, wound culture growing staph aureus, await to see if this is MRSA, added contact isolation. The right hand is much better, swelling down 80%, almost FROM now, History Interval history: Patient was seen and examined. Follow-up on current diagnosis of Seizure. Overnight uneventful as no events directly reported to me. Patient denies any chest pain, shortness breath, nausea/vomiting or severe headaches. Imaging, nurs ing note, chart, labs and old chart reviewed. Discussed with patient. Hospitalist Physical - Physical exam Narrative exam: Gen: unkempt, WDWN, NAD, Awake, Alert, Orientated x 2 HEENT: NCAT, EOMI, PERRL, OP Clear Neck: supple, no adenopathy, no thyromegaly, no JVD CVS/Heart: RRR, normal S1S2, pulses present bilaterally Chest/Lungs: CTA B, Symmetrical chest expansion, good air entry bilaterally GI/Abdomen: soft, NTND, good bowel sounds, no guarding or rebound /Bladder: no suprapubic tenderness, no CVA or paraspinal tenderness Extermity/Skin: swollen right hand with purulent drainage from cut at the base of the right pinky palm MCP MSK: FROM x 4 Neuro: CN 2-12 grossly intact, no new focal deficits Psych: calm - Constitutional Vitals: Temp Pulse Resp BP Pulse Ox 98.1 F 81 18 127/80 97 07/22/19 05:33 07/22/19 05:33 07/22/19 05:33 07/22/19 05:33 07/22/19 05:33 General appearance: Present: no acute distress. Absent: mild distress Results - Labs CBC & Chem 7: 07/21/19 05:15 07/21/19 05:15 Labs: Laboratory Last Values WBC 5.3 K/mm3 (4.5-11.0) 07/21/19 05:15 RBC 3.77 M/mm3 (3.65-5.03) 07/21/19 05:15 Hgb 12.5 gm/dl (11.8-15.2) 07/21/19 05:15 Hct 36.7 % (35.5-45.6) 07/21/19 05:15 MCV 97 fl (84-94) H 07/21/19 05:15 MCH 33 pg (28-32) H 07/21/19 05:15 MCHC 34 % (32-34) 07/21/19 05:15 RDW 13.5 % (13.2-15.2) 07/21/19 05:15 Plt Count 204 K/mm3 (140-440) 07/21/19 05:15 Lymph % (Auto) 19.3 % (13.4-35.0) 07/17/19 10:59 Quay % (Auto) 6.3 % (0.0-7.3) 07/17/19 10:59 Eos % (Auto) 1.3 % (0.0-4.3) 07/17/19 10:59 Baso % (Auto) 1.1 % (0.0-1.8) 07/17/19 10:59 Lymph # 1.4 K/mm3 (1.2-5.4) 07/17/19 10:59 Quay # 0.4 K/mm3 (0.0-0.8) 07/17/19 10:59 Eos # 0.1 K/mm3 (0.0-0.4) 07/17/19 10:59 Baso # 0.1 K/mm3 (0.0-0.1) 07/17/19 10:59 Seg Neutrophils % 72.0 % (40.0-70.0) H 07/17/19 10:59 Seg Neutrophils # 5.1 K/mm3 (1.8-7.7) 07/17/19 10:59 PT 12.5 Sec. (12.2-14.9) 07/17/19 11:53 INR 0.92 (0.87-1.13) 07/17/19 11:53 APTT 26.2 Sec. (24.2-36.6) 07/17/19 11:53 ABG pH 7.404 pH Units (7.350-7.450) 07/17/19 11:00 ABG pCO2 39.7 mm Hg 07/17/19 11:00 ABG pO2 91.1 mm Hg (80.0-90.0) H 07/17/19 11:00 ABG HCO3 24.2 mmol/L (20.0-26.0) 07/17/19 11:00 ABG O2 Saturation 97.3 % (95.0-99.0) 07/17/19 11:00 ABG O2 Content 17.5 (0.0-44) 07/17/19 11:00 ABG Base Excess -0.4 mmol/L (-2.0-3.0) 07/17/19 11:00 ABG Hemoglobin 13.2 gm/dl (14.0-18.0) L 07/17/19 11:00 ABG Carboxyhemoglobin 3.4 % (0.0-5.0) 07/17/19 11:00 ABG Methemoglobin 0.5 % (0.0-1.5) 07/17/19 11:00 Oxyhemoglobin 93.5 % (95.0-99.0) L 07/17/19 11:00 FiO2 32 % 07/17/19 11:00 Sodium 135 mmol/L (137-145) L 07/21/19 05:15 Potassium 4.0 mmol/L (3.6-5.0) D 07/21/19 05:15 Chloride 99.9 mmol/L (98-107) 07/21/19 05:15 Carbon Dioxide 23 mmol/L (22-30) 07/21/19 05:15 Anion Gap 16 mmol/L 07/21/19 05:15 BUN 16 mg/dL (9-20) 07/21/19 05:15 Creatinine 1.1 mg/dL (0.8-1.5) 07/21/19 05:15 Estimated GFR > 60 ml/min 07/21/19 05:15 BUN/Creatinine Ratio 15 % 07/21/19 05:15 Glucose 399 mg/dL (75-100) H 07/21/19 05:15 POC Glucose 84 (70-105) 07/22/19 06:33 Lactic Acid 1.70 mmol/L (0.7-2.0) 07/17/19 11:53 Calcium 8.0 mg/dL (8.4-10.2) L 07/21/19 05:15 Phosphorus 2.90 mg/dL (2.5-4.5) 07/17/19 10:59 Magnesium 1.90 mg/dL (1.7-2.3) 07/17/19 16:08 Total Bilirubin 0.50 mg/dL (0.1-1.2) 07/17/19 10:59 AST 51 units/L (5-40) H 07/17/19 10:59 ALT 31 units/L (7-56) 07/17/19 10:59 Alkaline Phosphatase 183 units/L (35-129) H 07/17/19 10:59 Troponin T < 0.010 ng/mL (0.00-0.029) 07/17/19 11:53 NT-Pro-B Natriuret Pep 1105 pg/mL (0-900) H 07/17/19 10:59 Total Protein 6.3 g/dL (6.3-8.2) 07/17/19 10:59 Albumin 3.2 g/dL (3.9-5) L 07/17/19 10:59 Albumin/Globulin Ratio 1.0 % 07/17/19 10:59 Triglycerides 123 mg/dL (2-149) 07/18/19 05:32 Cholesterol 174 mg/dL (50-199) 07/18/19 05:32 LDL Cholesterol Direct 110 mg/dL (50-130) 07/18/19 05:32 HDL Cholesterol 51 mg/dL (40-59) 07/18/19 05:32 Cholesterol/HDL Ratio 3.41 % 07/18/19 05:32 TSH 0.327 mlU/mL (0.270-4.200) 07/17/19 16:08 Free T4 1.16 ng/dL (0.76-1.46) 07/17/19 16:08 Urine Color Straw (Yellow) 07/17/19 12:14 Urine Turbidity Clear (Clear) 07/17/19 12:14 Urine pH 7.0 (5.0-7.0) 07/17/19 12:14 Ur Specific [place] 1.017 (1.003-1.030) 07/17/19 12:14 Urine Protein 100 mg/dl mg/dL (Negative) 07/17/19 12:14 Urine Glucose (UA) >=500 mg/dL (Negative) 07/17/19 12:14 Urine Ketones Tr mg/dL (Negative) 07/17/19 12:14 Urine Blood Sm (Negative) 07/17/19 12:14 Urine Nitrite Neg (Negative) 07/17/19 12:14 Urine Bilirubin Neg (Negative) 07/17/19 12:14 Urine Urobilinogen < 2.0 mg/dL (<2.0) 07/17/19 12:14 Ur Leukocyte Esterase Neg (Negative) 07/17/19 12:14 Urine WBC (Auto) < 1.0 /HPF (0.0-6.0) 07/17/19 12:14 Urine RBC (Auto) 1.0 /HPF (0.0-6.0) 07/17/19 12:14 U Epithel Cells (Auto) < 1.0 /HPF (0-13.0) 07/17/19 12:14 Urine Opiates Screen Presumptive negative 07/17/19 12:14 Urine Methadone Screen Presumptive negative 07/17/19 12:14 Ur Barbiturates Screen Presumptive negative 07/17/19 12:14 Ur Phencyclidine Scrn Presumptive negative 07/17/19 12:14 Ur Amphetamines Screen Presumptive negative 07/17/19 12:14 U Benzodiazepines Scrn Presumptive negative 07/17/19 12:14 Urine Cocaine Screen Presumptive positive 07/17/19 12:14 U Marijuana (THC) Screen Presumptive negative 07/17/19 12:14 Drugs of Abuse Note Disclamer 07/17/19 12:14 Plasma/Serum Alcohol < 0.01 % (0-0.07) 07/17/19 11:53 Ayala/IV: Voiding Method Urinal IV Catheter Type [Left Forearm INT / Saline Lock ] IV Catheter Type [Left INT / Saline Lock Antecubital] Active Medications - Current Medications Current Medications: Generic Name Dose Route Start Last Admin Trade Name Freq PRN Reason Stop Dose Admin Acetaminophen 650 mg 07/17/19 13:42 Tylenol PO Q4H PRN Pain, Mild (1-3) Aspirin 325 mg 07/18/19 10:00 07/21/19 09:50 Aspirin PO 325 mg QDAY JODIE Administration Atorvastatin Calcium 40 mg 07/17/19 22:00 07/21/19 21:59 Lipitor PO 40 mg QHS JODIE Administration Bisacodyl 10 mg 07/17/19 13:42 Dulcolax AR QDAY PRN Constipation Chlordiazepoxide HCl 50 mg 07/17/19 11:52 Librium PO Q1H PRN CIWA-Ar 8-15 Chlordiazepoxide HCl 100 mg 07/17/19 11:52 Librium PO Q1H PRN CIWA-Ar 16-25 Clonidine HCl 0.1 mg 07/18/19 18:43 07/18/19 22:04 Catapres-Tts Patch TD 0.1 mg Mo JODIE Administration Dextrose 50 ml 07/17/19 13:40 D50w (25gm) Syringe IV Q30MIN PRN Hypoglycemia Protocol Fluoxetine HCl 20 mg 07/18/19 10:00 07/21/19 09:50 Prozac PO 20 mg QDAY JODIE Administration Folic Acid 1 mg 07/18/19 10:00 07/21/19 09:50 Folvite PO 1 mg DAILY JODIE Administration Haloperidol Lactate 5 mg 07/17/19 11:52 Haldol IV Q1H PRN Unrespon. to mult. doses BZD's Heparin Sodium (Porcine) 5,000 unit 07/20/19 22:00 07/21/19 21:59 Heparin SUB-Q 5,000 unit Q12HR JODIE Administration Hydralazine HCl 10 mg 07/18/19 18:41 Apresoline IV Q4HR PRN HTN SPB>160 OR DPB>105 Ampicillin Sodium/Sulbactam Sodium 3 gm in 100 mls @ 200 mls/hr 07/19/19 18:00 07/22/19 05:34 Unasyn/Ns 3 Gm/100 Ml IV 100 mls/hr Q6HR JODIE Administration Protocol Vancomycin HCl 1,250 mg/ 275 mls @ 166.667 mls/hr 07/20/19 08:00 07/21/19 2 1:59 Sodium Chloride IV 166.667 mls/hr Q12H JODIE Administration Insulin Human Lispro 0 unit 07/17/19 14:00 07/22/19 06:26 Humalog SUB-Q Not Given Q6HR JODIE Protocol Insulin Human NPH 20 unit 07/21/19 17:00 07/22/19 08:12 Humulin N SUB-Q Not Given BIDDIAB JODIE Levetiracetam 750 mg 07/20/19 22:00 07/21/19 21:59 Keppra PO 750 mg BID JODIE Administration Lorazepam 2 mg 07/17/19 11:52 Ativan IV Q1H PRN CIWA-Ar 8-15 Lorazepam 4 mg 07/17/19 11:52 Ativan IV Q1H PRN CIWA-Ar 16-25 Lorazepam 4 mg 07/17/19 11:52 Ativan IV Q15MIN PRN CIWA-Ar >25 Magnesium Hydroxide 30 ml 07/17/19 13:42 Milk Of Magnesia PO Q4H PRN Constipation Metoclopramide HCl 10 mg 07/17/19 13:42 Reglan PO Q6H PRN Nausea And Vomiting Nicotine 14 mg 07/17/19 15:00 07/21/19 09:50 Habitrol TD 14 mg DAILY JODIE Administration Ondansetron HCl 4 mg 07/17/19 13:42 Zofran IV Q8H PRN Nausea And Vomiting Promethazine HCl 25 mg 07/17/19 13:42 Phenergan AR Q6H PRN Nausea And Vomiting Sodium Chloride 10 ml 07/17/19 13:42 07/21/19 22:06 Sodium Chloride Flush Syringe 10 Ml IV 10 ml PRN PRN Administration LINE FLUSH Thiamine HCl 100 mg 07/18/19 10:00 07/21/19 09:50 Vitamin B-1 PO 100 mg QDAY JODIE Administration Trazodone HCl 50 mg 07/17/19 22:00 07/21/19 21:59 Desyrel PO 50 mg QHS JODIE Administration Valsartan 160 mg 07/18/19 19:00 07/21/19 09:50 Diovan PO 160 mg DAILY JODIE Administration
[2019-07-22] MEDS: VANCOMYCIN 1,250 MG in SODIUM CHLORIDE 0.9% 250ML 250 ML IV SCH ×2 (10:35→21:17)
[2019-07-22] MEDS: ASPIRIN 325 MG TAB PO SCH (10:36)
[2019-07-22] MEDS: HEPARIN 5,000 UNIT/1 ML VIAL SUB-Q SCH ×2 (10:36→21:16)
[2019-07-22] MEDS: NICOTINE 14 MG/24 HR PATCH TD SCH (10:36)
[2019-07-22] MEDS: levETIRAcetam 500 MG/5 ML ORAL LIQD PO SCH ×2 (10:36→21:17)
[2019-07-22] MEDS: FOLIC ACID 1 MG TAB PO SCH (10:36)
[2019-07-22] MEDS: FLUoxetine 20 MG CAP PO SCH (10:37)
--- NOTE | 2019-07-22 15:31 | Progress Note ---
Assessment and Plan Cultures: 07/17/2019 blood culture: No growth R hand wound culture: Staph aureus A/P: 63-year-old male with alcohol dependence, substance abuse, diabetes, hypertension, schizophrenia, tobacco abuse, h/o incarceration was brought in by EMS on 07/17/2019 with seizures: #R hand cellulitis, dog bite, possible abscess: The dog belongs to his cousin. Patient does not have his cousin's phone number but name is Valentina Boo lives on [address] [facility] in [place]. Patient thinks his phone got stolen at his house. Dog's vaccination status is unknown. Per my discussion with [place] animal control (07/20/2019) they will not be able to track down the dog, so best would be to proceed with PEP with HRIG and rabies vaccinations. Update from animal control (07/21/2019), they were able to track down the dog, dog is well and the bite happened on 07/09/2019, so rabies is not a concern anymore. #Seizure disorder #Polysubstance abuse: Utox positive for cocaine on admission. Not a candidate for IV abx on discharge. #Uncontrolled DM Recs: continue IV Vancomycin Unasyn discontinued Follow up Staph aureus susceptibilities. Alternatively, if CM can help arrange PO Linezolid 600 mg BID x 10 days, patient can be discharged. CM orders placed Additional rabies vaccinations are not needed Ashley Montanez MD, FACP [facility] C: [phone] O: [phone] F: [phone] Subjective Date of service: 07/22/19 Principal diagnosis: Seizure Interval history: Denies any fever. Wound in right hand is much improved. No fever. Objective - Exam Narrative Exam: Physical Exam: Constitutional: Alert, cooperative. No acute distress Head, Ears, Nose: Normocephalic, atraumatic. External ears, nose normal Eyes: Conjunctivae/corneas clear. No icterus. No ptosis. Neck: Supple, no meningeal signs Oral: no thrush Cardiovascular: S1, S2 normal. Respiratory: Good air entry, clear to auscultation bilaterally GI: Soft, non-tender; bowel sounds normal. No peritoneal signs Musculoskeletal: No pedal edema, no cyanosis. R hand webbing of 4th and 5th finger with wound improving Skin: No rash or abscess Hem/Lymphatic: No palpable cervical or supraclavicular nodes. No lymphangitis Psych: Mood ok. Affect flat Neurological: Awake, alert, oriented. No gross abnormality - Constitutional Vitals: Vital Signs Temp Pulse Resp BP Pulse Ox 98.1 F 81 18 127/80 97 07/22/19 05:33 07/22/19 05:33 07/22/19 05:33 07/22/19 05:33 07/22/19 05:33 Temperature -Last 24 Hours Temperature 98.1 F Temperature 98.2 F Temperature 98.4 F - Labs CBC & Chem 7: 07/21/19 05:15 07/21/19 05:15 Labs: Abnormal lab results 07/21/19 07/21/19 07/22/19 Range/Units 16:46 22:03 12:05 POC Glucose 251 H 147 H 210 H (70-105)
[2019-07-22] MEDS: VALSARTAN 160MG TAB PO SCH (16:38)
[2019-07-22] MEDS: THIAMINE 100 MG TAB PO SCH (16:38)
[2019-07-22] MEDS: traZODone 50 MG TAB PO SCH (21:17)
[2019-07-23] MEDS: INSULIN LISPRO 100 UNIT/ML SUB-Q SCH ×4 (06:05→22:17)
[2019-07-23] MEDS: VANCOMYCIN 1,250 MG in SODIUM CHLORIDE 0.9% 250ML 250 ML IV SCH ×2 (08:57→20:13)
[2019-07-23] MEDS: INSULIN NPH, HUMAN 100 UNIT/1 ML SUB-Q SCH ×2 (08:58→17:37)
[2019-07-23] MEDS: levETIRAcetam 500 MG/5 ML ORAL LIQD PO SCH ×2 (09:04→22:08)
[2019-07-23] MEDS: NICOTINE 14 MG/24 HR PATCH TD SCH (09:04)
[2019-07-23] MEDS: FLUoxetine 20 MG CAP PO SCH (09:05)
[2019-07-23] MEDS: HEPARIN 5,000 UNIT/1 ML VIAL SUB-Q SCH ×2 (09:05→22:12)
[2019-07-23] MEDS: THIAMINE 100 MG TAB PO SCH (09:05)
[2019-07-23] MEDS: ASPIRIN 325 MG TAB PO SCH (09:05)
[2019-07-23] MEDS: VALSARTAN 160MG TAB PO SCH (09:06)
[2019-07-23] MEDS: FOLIC ACID 1 MG TAB PO SCH (09:17)
--- NOTE | 2019-07-23 10:06 | Progress Note ---
Assessment and Plan Assessment and plan: Patient is a 63 yo AA man with a history of ETOH Dependence, Cocaine Dependence, HTN, DM type 2, Nicotine Dependence and Paranoid Schhizophrenia who presented to [facility] ED with initial right upper extremity numbness that started 3 days ago. Upon the patient's arrival to emergency department he began to have seizure-like activity. He was confused. He was found to have blood pressure of 204/130, as well as symptoms consistent with alcohol withdrawal seizures, Cocaine positive in Urine drug screen. During my exam, I noticed his right hand is swollen, when I examined he mentions being bite by a dog. * CT head without contrast IMPRESSION: CT findings remain unchanged No acute parenchymal lesion Encephalomalacia in the left lateral frontal and parietal lobes * pCXR IMPRESSION: No acute abnormality or significant change. 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 No acute intracranial process is identified. 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 Right hand numbness, due to Dog bite with Right hand cellulitis: consulted ID and Ortho, notified both, start IV antibodies, consulted Wound care also, get XRAY Toxic encephalopathy, poa: personnel counselor on stopping Cocaine, his niece Lisa at bedside also re-interated cessation from drug and alcohol Ruled out Acute CVA Seizure episodes thought to be ETOH WD sz: treat with CIWA protocol, thiamine and folic acid Tobacco dependency: personnel counselor on stopping Alcohol withdrawal seizure: treat with IV ativan prn Cocaine abuse: personnel counselor on stopping Cardiomyopathy, TTE Conclusions: trace MR, trace TR, mild LV hypertrophy, estimated EF 45-50%, mild global hypokinesis of Left ventricle Type 2 DM: Sliding scale insulin, Accu-Chek, consistent carbohydrate diet when alert and awake only, hypoglycemia protocol. Hypertension urgency: IV hydralazine every 6 hours as needed for systolic greater than 185. Has been weaned off Cardizem drip DVT prophylaxis: SCD to bilateral lower extremities while in bed, prophylactic sq heparin. 07/20/2019: yesterday patient had syncopal seizures which spontaneously resolved, continue Keppra EEG today. MRI hand shows cellulitis, appreciate Ortho and ID recommendation, will follow and continue abx. 07/21/2019: No more seizure on iv keppra, switch oral keppra, treated for Rabies per ID 07/22/2019: Doing well, no more seizures, close to being discharge, wound culture growing staph aureus, await to see if this is MRSA, added contact isolation. The right hand is much better, swelling down 80%, almost FROM now, 07/23/2019 No more seizures. Wound culture MSSA History Interval history: No more seizures No fever Hospitalist Physical - Physical exam Narrative exam: Gen: NAD, Awake, Alert, Orientated x 2 HEENT: NCAT, EOMI, PERRL, OP Clear Neck: supple, no adenopathy, no thyromegaly, no JVD CVS/Heart: RRR, normal S1S2, pulses present bilaterally Chest/Lungs: CTA B, Symmetrical chest expansion, good air entry bilaterally GI/Abdomen: soft, NTND, good bowel sounds, no guarding or rebound /Bladder: no suprapubic tenderness, no CVA or paraspinal tenderness Extermity/Skin: swollen right hand with purulent drainage from cut at the base of the right pinky palm MCP MSK: FROM x 4 Neuro: CN 2-12 grossly intact, no new focal deficits Psych: calm - Constitutional Vitals: Temp Pulse Resp BP Pulse Ox 98.7 F 77 16 117/79 99 07/23/19 05:40 07/23/19 05:40 07/23/19 05:40 07/23/19 09:06 07/23/19 05:40 General appearance: Present: no acute distress Results - Labs CBC & Chem 7: 07/21/19 05:15 07/21/19 05:15 Labs: Laboratory Last Values WBC 5.3 K/mm3 (4.5-11.0) 07/21/19 05:15 RBC 3.77 M/mm3 (3.65-5.03) 07/21/19 05:15 Hgb 12.5 gm/dl (11.8-15.2) 07/21/19 05:15 Hct 36.7 % (35.5-45.6) 07/21/19 05:15 MCV 97 fl (84-94) H 07/21/19 05:15 MCH 33 pg (28-32) H 07/21/19 05:15 MCHC 34 % (32-34) 07/21/19 05:15 RDW 13.5 % (13.2-15.2) 07/21/19 05:15 Plt Count 204 K/mm3 (140-440) 07/21/19 05:15 Lymph % (Auto) 19.3 % (13.4-35.0) 07/17/19 10:59 [place] % (Auto) 6.3 % (0.0-7.3) 07/17/19 10:59 Eos % (Auto) 1.3 % (0.0-4.3) 07/17/19 10:59 Baso % (Auto) 1.1 % (0.0-1.8) 07/17/19 10:59 Lymph # 1.4 K/mm3 (1.2-5.4) 07/17/19 10:59 [place] # 0.4 K/mm3 (0.0-0.8) 07/17/19 10:59 Eos # 0.1 K/mm3 (0.0-0.4) 07/17/19 10:59 Baso # 0.1 K/mm3 (0.0-0.1) 07/17/19 10:59 Seg Neutrophils % 72.0 % (40.0-70.0) H 07/17/19 10:59 Seg Neutrophils # 5.1 K/mm3 (1.8-7.7) 07/17/19 10:59 PT 12.5 Sec. (12.2-14.9) 07/17/19 11:53 INR 0.92 (0.87-1.13) 07/17/19 11:53 APTT 26.2 Sec. (24.2-36.6) 07/17/19 11:53 ABG pH 7.404 pH Units (7.350-7.450) 07/17/19 11:00 ABG pCO2 39.7 mm Hg 07/17/19 11:00 ABG pO2 91.1 mm Hg (80.0-90.0) H 07/17/19 11:00 ABG HCO3 24.2 mmol/L (20.0-26.0) 07/17/19 11:00 ABG O2 Saturation 97.3 % (95.0-99.0) 07/17/19 11:00 ABG O2 Content 17.5 (0.0-44) 07/17/19 11:00 ABG Base Excess -0.4 mmol/L (-2.0-3.0) 07/17/19 11:00 ABG Hemoglobin 13.2 gm/dl (14.0-18.0) L 07/17/19 11:00 ABG Carboxyhemoglobin 3.4 % (0.0-5.0) 07/17/19 11:00 ABG Methemoglobin 0.5 % (0.0-1.5) 07/17/19 11:00 Oxyhemoglobin 93.5 % (95.0-99.0) L 07/17/19 11:00 FiO2 32 % 07/17/19 11:00 Sodium 135 mmol/L (137-145) L 07/21/19 05:15 Potassium 4.0 mmol/L (3.6-5.0) D 07/21/19 05:15 Chloride 99.9 mmol/L (98-107) 07/21/19 05:15 Carbon Dioxide 23 mmol/L (22-30) 07/21/19 05:15 Anion Gap 16 mmol/L 07/21/19 05:15 BUN 16 mg/dL (9-20) 07/21/19 05:15 Creatinine 1.1 mg/dL (0.8-1.5) 07/21/19 05:15 Estimated GFR > 60 ml/min 07/21/19 05:15 BUN/Creatinine Ratio 15 % 07/21/19 05:15 Glucose 399 mg/dL (75-100) H 07/21/19 05:15 POC Glucose 173 (70-105) H 07/23/19 08:08 Lactic Acid 1.70 mmol/L (0.7-2.0) 07/17/19 11:53 Calcium 8.0 mg/dL (8.4-10.2) L 07/21/19 05:15 Phosphorus 2.90 mg/dL (2.5-4.5) 07/17/19 10:59 Magnesium 1.90 mg/dL (1.7-2.3) 07/17/19 16:08 Total Bilirubin 0.50 mg/dL (0.1-1.2) 07/17/19 10:59 AST 51 units/L (5-40) H 07/17/19 10:59 ALT 31 units/L (7-56) 07/17/19 10:59 Alkaline Phosphatase 183 units/L (35-129) H 07/17/19 10:59 Troponin T < 0.010 ng/mL (0.00-0.029) 07/17/19 11:53 NT-Pro-B Natriuret Pep 1105 pg/mL (0-900) H 07/17/19 10:59 Total Protein 6.3 g/dL (6.3-8.2) 07/17/19 10:59 Albumin 3.2 g/dL (3.9-5) L 07/17/19 10:59 Albumin/Globulin Ratio 1.0 % 07/17/19 10:59 Triglycerides 123 mg/dL (2-149) 07/18/19 05:32 Cholesterol 174 mg/dL (50-199) 07/18/19 05:32 LDL Cholesterol Direct 110 mg/dL (50-130) 07/18/19 05:32 HDL Cholesterol 51 mg/dL (40-59) 07/18/19 05:32 Cholesterol/HDL Ratio 3.41 % 07/18/19 05:32 TSH 0.327 mlU/mL (0.270-4.200) 07/17/19 16:08 Free T4 1.16 ng/dL (0.76-1.46) 07/17/19 16:08 Urine Color Straw (Yellow) 07/17/19 12:14 Urine Turbidity Clear (Clear) 07/17/19 12:14 Urine pH 7.0 (5.0-7.0) 07/17/19 12:14 Ur Specific [place] 1.017 (1.003-1.030) 07/17/19 12:14 Urine Protein 100 mg/dl mg/dL (Negative) 07/17/19 12:14 Urine Glucose (UA) >=500 mg/dL (Negative) 07/17/19 12:14 Urine Ketones Tr mg/dL (Negative) 07/17/19 12:14 Urine Blood Sm (Negative) 07/17/19 12:14 Urine Nitrite Neg (Negative) 07/17/19 12:14 Urine Bilirubin Neg (Negative) 07/17/19 12:14 Urine Urobilinogen < 2.0 mg/dL (<2.0) 07/17/19 12:14 Ur Leukocyte Esterase Neg (Negative) 07/17/19 12:14 Urine WBC (Auto) < 1.0 /HPF (0.0-6.0) 07/17/19 12:14 Urine RBC (Auto) 1.0 /HPF (0.0-6.0) 07/17/19 12:14 U Epithel Cells (Auto) < 1.0 /HPF (0-13.0) 07/17/19 12:14 Vancomycin Trough 15.0 ug/mL (5.0-20.0) 07/22/19 07:56 Urine Opiates Screen Presumptive negative 07/17/19 12:14 Urine Methadone Screen Presumptive negative 07/17/19 12:14 Ur Barbiturates Screen Presumptive negative 07/17/19 12:14 Ur Phencyclidine Scrn Presumptive negative 07/17/19 12:14 Ur Amphetamines Screen Presumptive negative 07/17/19 12:14 U Benzodiazepines Scrn Presumptive negative 07/17/19 12:14 Urine Cocaine Screen Presumptive positive 07/17/19 12:14 U Marijuana (THC) Screen Presumptive negative 07/17/19 12:14 Drugs of Abuse Note Disclamer 07/17/19 12:14 Plasma/Serum Alcohol < 0.01 % (0-0.07) 07/17/19 11:53 Ayala/IV: Voiding Method Toilet IV Catheter Type [Left Forearm INT / Saline Lock ] IV Catheter Type [Left INT / Saline Lock Antecubital] Active Medications - Current Medications Current Medications: Generic Name Dose Route Start Last Admin Trade Name Freq PRN Reason Stop Dose Admin Acetaminophen 650 mg 07/17/19 13:42 Tylenol PO Q4H PRN Pain, Mild (1-3) Aspirin 325 mg 07/18/19 10:00 07/23/19 09:05 Aspirin PO 325 mg QDAY JODIE Administration Atorvastatin Calcium 40 mg 07/17/19 22:00 07/22/19 21:17 Lipitor PO 40 mg QHS JODIE Administration Bisacodyl 10 mg 07/17/19 13:42 Dulcolax PA QDAY PRN Constipation Chlordiazepoxide HCl 50 mg 07/17/19 11:52 Librium PO Q1H PRN CIWA-Ar 8-15 Chlordiazepoxide HCl 100 mg 07/17/19 11:52 Librium PO Q1H PRN CIWA-Ar 16-25 Clonidine HCl 0.1 mg 07/18/19 18:43 07/18/19 22:04 Catapres-Tts Patch TD 0.1 mg Mo JODIE Administration Dextrose 50 ml 07/17/19 13:40 D50w (25gm) Syringe IV Q30MIN PRN Hypoglycemia Protocol Fluoxetine HCl 20 mg 07/18/19 10:00 07/23/19 09:05 Prozac PO 20 mg QDAY JODIE Administration Folic Acid 1 mg 07/18/19 10:00 07/23/19 09:17 Folvite PO 1 mg DAILY JODIE Administration Haloperidol Lactate 5 mg 07/17/19 11:52 Haldol IV Q1H PRN Unrespon. to mult. doses BZD's Heparin Sodium (Porcine) 5,000 unit 07/20/19 22:00 07/23/19 09:05 Heparin SUB-Q 5,000 unit Q12HR JODIE Administration Hydralazine HCl 10 mg 07/18/19 18:41 Apresoline IV Q4HR PRN HTN SPB>160 OR DPB>105 Vancomycin HCl 1,250 mg/ 275 mls @ 166.667 mls/hr 07/20/19 08:00 07/23/19 08:57 Sodium Chloride IV 166.667 mls/hr Q12H JODIE Administration Insulin Human Lispro 0 unit 07/17/19 14:00 07/23/19 06:05 Humalog SUB-Q Not Given Q6HR JODIE Protocol Insulin Human NPH 20 unit 07/21/19 17:00 07/23/19 08:58 Humulin N SUB-Q 20 unit BIDDIAB JODIE Administration Levetiracetam 750 mg 07/20/19 22:00 07/23/19 09:04 Keppra PO 750 mg BID JODIE Administration Lorazepam 2 mg 07/17/19 11:52 Ativan IV Q1H PRN CIWA-Ar 8-15 Lorazepam 4 mg 07/17/19 11:52 Ativan IV Q1H PRN CIWA-Ar 16-25 Lorazepam 4 mg 07/17/19 11:52 Ativan IV Q15MIN PRN CIWA-Ar >25 Magnesium Hydroxide 30 ml 07/17/19 13:42 Milk Of Magnesia PO Q4H PRN Constipation Metoclopramide HCl 10 mg 07/17/19 13:42 Reglan PO Q6H PRN Nausea And Vomiting Nicotine 14 mg 07/17/19 15:00 07/23/19 09:04 Habitrol TD 14 mg DAILY JODIE Administration Ondansetron HCl 4 mg 07/17/19 13:42 Zofran IV Q8H PRN Nausea And Vomiting Promethazine HCl 25 mg 07/17/19 13:42 Phenergan PA Q6H PRN Nausea And Vomiting Sodium Chloride 10 ml 07/17/19 13:42 07/23/19 09:06 Sodium Chloride Flush Syringe 10 Ml IV 10 ml PRN PRN Administration LINE FLUSH Thiamine HCl 100 mg 07/18/19 10:00 07/23/19 09:05 Vitamin B-1 PO 100 mg QDAY JODIE Administration Trazodone HCl 50 mg 07/17/19 22:00 07/22/19 21:17 Desyrel PO 50 mg QHS JODIE Administration Valsartan 160 mg 07/18/19 19:00 07/23/19 09:06 Diovan PO 160 mg DAILY JODIE Administration
[2019-07-23] MEDS ORDERED: KETOROLAC 30 MG/1 ML INJ IV PRN (20:58)
[2019-07-23] MEDS: traZODone 50 MG TAB PO SCH (22:08)
[2019-07-24] MEDS: INSULIN LISPRO 100 UNIT/ML SUB-Q SCH ×4 (07:46→22:00)
[2019-07-24] MEDS: VANCOMYCIN 1,250 MG in SODIUM CHLORIDE 0.9% 250ML 250 ML IV SCH ×2 (08:34→20:19)
[2019-07-24] MEDS: INSULIN NPH, HUMAN 100 UNIT/1 ML SUB-Q SCH ×2 (09:06→17:40)
--- NOTE | 2019-07-24 10:33 | Progress Note ---
Assessment and Plan Assessment and plan: Patient is a 63 yo AA man with a history of ETOH Dependence, Cocaine Dependence, HTN, DM type 2, Nicotine Dependence and Paranoid Schhizophrenia who presented to [facility] ED with initial right upper extremity numbness that started 3 days ago. Upon the patient's arrival to emergency department he began to have seizure-like activity. He was confused. He was found to have blood pressure of 204/130, as well as symptoms consistent with alcohol withdrawal seizures, Cocaine positive in Urine drug screen. During my exam, I noticed his right hand is swollen, when I examined he mentions being bite by a dog. * CT head without contrast IMPRESSION: CT findings remain unchanged No acute parenchymal lesion Encephalomalacia in the left lateral frontal and parietal lobes * pCXR IMPRESSION: No acute abnormality or significant change. 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 No acute intracranial process is identified. 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 Right hand numbness, due to Dog bite with Right hand cellulitis: consulted ID and Ortho, notified both, start IV antibodies, consulted Wound care also, get XRAY Toxic encephalopathy, poa: bereavement counselor on stopping Cocaine, his niece Lisa at bedside also re-interated cessation from drug and alcohol Ruled out Acute CVA Seizure episodes thought to be ETOH WD sz: treat with CIWA protocol, thiamine and folic acid Tobacco dependency: bereavement counselor on stopping Alcohol withdrawal seizure: treat with IV ativan prn Cocaine abuse: bereavement counselor on stopping Cardiomyopathy, TTE Conclusions: trace MR, trace TR, mild LV hypertrophy, estimated EF 45-50%, mild global hypokinesis of Left ventricle Type 2 DM: Sliding scale insulin, Accu-Chek, consistent carbohydrate diet when alert and awake only, hypoglycemia protocol. Hypertension urgency: IV hydralazine every 6 hours as needed for systolic greater than 185. Has been weaned off Cardizem drip DVT prophylaxis: SCD to bilateral lower extremities while in bed, prophylactic sq heparin. 07/20/2019: yesterday patient had syncopal seizures which spontaneously resolved, continue Keppra EEG today. MRI hand shows cellulitis, appreciate Ortho and ID recommendation, will follow and continue abx. 07/21/2019: No more seizure on iv keppra, switch oral keppra, treated for Rabies per ID 07/22/2019: Doing well, no more seizures, close to being discharge, wound culture growing staph aureus, await to see if this is MRSA, added contact isolation. The right hand is much better, swelling down 80%, almost FROM now, 07/23/2019 No more seizures. Wound culture MSSA 07/24/2019 No more seizures. On Vancomycin History Interval history: No more seizures No fever Hospitalist Physical - Physical exam Narrative exam: Gen: NAD, Awake, Alert, Orientated x 2 HEENT: NCAT, EOMI, PERRL, OP Clear Neck: supple, no adenopathy, no thyromegaly, no JVD CVS/Heart: RRR, normal S1S2, pulses present bilaterally Chest/Lungs: CTA B, Symmetrical chest expansion, good air entry bilaterally GI/Abdomen: soft, NTND, good bowel sounds, no guarding or rebound /Bladder: no suprapubic tenderness, no CVA or paraspinal tenderness Extermity/Skin: swollen right hand with purulent drainage from cut at the base of the right pinky palm MCP MSK: FROM x 4 Neuro: CN 2-12 grossly intact, no new focal deficits Psych: calm - Constitutional Vitals: Temp Pulse Resp BP Pulse Ox 98.4 F 75 20 139/86 96 07/24/19 05:05 07/24/19 05:05 07/24/19 05:05 07/24/19 05:05 07/24/19 05:05 General appearance: Present: no acute distress Results - Labs CBC & Chem 7: 07/21/19 05:15 07/21/19 05:15 Labs: Laboratory Last Values WBC 5.3 K/mm3 (4.5-11.0) 07/21/19 05:15 RBC 3.77 M/mm3 (3.65-5.03) 07/21/19 05:15 Hgb 12.5 gm/dl (11.8-15.2) 07/21/19 05:15 Hct 36.7 % (35.5-45.6) 07/21/19 05:15 MCV 97 fl (84-94) H 07/21/19 05:15 MCH 33 pg (28-32) H 07/21/19 05:15 MCHC 34 % (32-34) 07/21/19 05:15 RDW 13.5 % (13.2-15.2) 07/21/19 05:15 Plt Count 204 K/mm3 (140-440) 07/21/19 05:15 Lymph % (Auto) 19.3 % (13.4-35.0) 07/17/19 10:59 [place] % (Auto) 6.3 % (0.0-7.3) 07/17/19 10:59 Eos % (Auto) 1.3 % (0.0-4.3) 07/17/19 10:59 Baso % (Auto) 1.1 % (0.0-1.8) 07/17/19 10:59 Lymph # 1.4 K/mm3 (1.2-5.4) 07/17/19 10:59 [place] # 0.4 K/mm3 (0.0-0.8) 07/17/19 10:59 Eos # 0.1 K/mm3 (0.0-0.4) 07/17/19 10:59 Baso # 0.1 K/mm3 (0.0-0.1) 07/17/19 10:59 Seg Neutrophils % 72.0 % (40.0-70.0) H 07/17/19 10:59 Seg Neutrophils # 5.1 K/mm3 (1.8-7.7) 07/17/19 10:59 PT 12.5 Sec. (12.2-14.9) 07/17/19 11:53 INR 0.92 (0.87-1.13) 07/17/19 11:53 APTT 26.2 Sec. (24.2-36.6) 07/17/19 11:53 ABG pH 7.404 pH Units (7.350-7.450) 07/17/19 11:00 ABG pCO2 39.7 mm Hg 07/17/19 11:00 ABG pO2 91.1 mm Hg (80.0-90.0) H 07/17/19 11:00 ABG HCO3 24.2 mmol/L (20.0-26.0) 07/17/19 11:00 ABG O2 Saturation 97.3 % (95.0-99.0) 07/17/19 11:00 ABG O2 Content 17.5 (0.0-44) 07/17/19 11:00 ABG Base Excess -0.4 mmol/L (-2.0-3.0) 07/17/19 11:00 ABG Hemoglobin 13.2 gm/dl (14.0-18.0) L 07/17/19 11:00 ABG Carboxyhemoglobin 3.4 % (0.0-5.0) 07/17/19 11:00 ABG Methemoglobin 0.5 % (0.0-1.5) 07/17/19 11:00 Oxyhemoglobin 93.5 % (95.0-99.0) L 07/17/19 11:00 FiO2 32 % 07/17/19 11:00 Sodium 135 mmol/L (137-145) L 07/21/19 05:15 Potassium 4.0 mmol/L (3.6-5.0) D 07/21/19 05:15 Chloride 99.9 mmol/L (98-107) 07/21/19 05:15 Carbon Dioxide 23 mmol/L (22-30) 07/21/19 05:15 Anion Gap 16 mmol/L 07/21/19 05:15 BUN 16 mg/dL (9-20) 07/21/19 05:15 Creatinine 1.1 mg/dL (0.8-1.5) 07/21/19 05:15 Estimated GFR > 60 ml/min 07/21/19 05:15 BUN/Creatinine Ratio 15 % 07/21/19 05:15 Glucose 399 mg/dL (75-100) H 07/21/19 05:15 POC Glucose 65 (70-105) L 07/24/19 07:57 Lactic Acid 1.70 mmol/L (0.7-2.0) 07/17/19 11:53 Calcium 8.0 mg/dL (8.4-10.2) L 07/21/19 05:15 Phosphorus 2.90 mg/dL (2.5-4.5) 07/17/19 10:59 Magnesium 1.90 mg/dL (1.7-2.3) 07/17/19 16:08 Total Bilirubin 0.50 mg/dL (0.1-1.2) 07/17/19 10:59 AST 51 units/L (5-40) H 07/17/19 10:59 ALT 31 units/L (7-56) 07/17/19 10:59 Alkaline Phosphatase 183 units/L (35-129) H 07/17/19 10:59 Troponin T < 0.010 ng/mL (0.00-0.029) 07/17/19 11:53 NT-Pro-B Natriuret Pep 1105 pg/mL (0-900) H 07/17/19 10:59 Total Protein 6.3 g/dL (6.3-8.2) 07/17/19 10:59 Albumin 3.2 g/dL (3.9-5) L 07/17/19 10:59 Albumin/Globulin Ratio 1.0 % 07/17/19 10:59 Triglycerides 123 mg/dL (2-149) 07/18/19 05:32 Cholesterol 174 mg/dL (50-199) 07/18/19 05:32 LDL Cholesterol Direct 110 mg/dL (50-130) 07/18/19 05:32 HDL Cholesterol 51 mg/dL (40-59) 07/18/19 05:32 Cholesterol/HDL Ratio 3.41 % 07/18/19 05:32 TSH 0.327 mlU/mL (0.270-4.200) 07/17/19 16:08 Free T4 1.16 ng/dL (0.76-1.46) 07/17/19 16:08 Urine Color Straw (Yellow) 07/17/19 12:14 Urine Turbidity Clear (Clear) 07/17/19 12:14 Urine pH 7.0 (5.0-7.0) 07/17/19 12:14 Ur Specific [place] 1.017 (1.003-1.030) 07/17/19 12:14 Urine Protein 100 mg/dl mg/dL (Negative) 07/17/19 12:14 Urine Glucose (UA) >=500 mg/dL (Negative) 07/17/19 12:14 Urine Ketones Tr mg/dL (Negative) 07/17/19 12:14 Urine Blood Sm (Negative) 07/17/19 12:14 Urine Nitrite Neg (Negative) 07/17/19 12:14 Urine Bilirubin Neg (Negative) 07/17/19 12:14 Urine Urobilinogen < 2.0 mg/dL (<2.0) 07/17/19 12:14 Ur Leukocyte Esterase Neg (Negative) 07/17/19 12:14 Urine WBC (Auto) < 1.0 /HPF (0.0-6.0) 07/17/19 12:14 Urine RBC (Auto) 1.0 /HPF (0.0-6.0) 07/17/19 12:14 U Epithel Cells (Auto) < 1.0 /HPF (0-13.0) 07/17/19 12:14 Vancomycin Trough 15.0 ug/mL (5.0-20.0) 07/22/19 07:56 Urine Opiates Screen Presumptive negative 07/17/19 12:14 Urine Methadone Screen Presumptive negative 07/17/19 12:14 Ur Barbiturates Screen Presumptive negative 07/17/19 12:14 Ur Phencyclidine Scrn Presumptive negative 07/17/19 12:14 Ur Amphetamines Screen Presumptive negative 07/17/19 12:14 U Benzodiazepines Scrn Presumptive negative 07/17/19 12:14 Urine Cocaine Screen Presumptive positive 07/17/19 12:14 U Marijuana (THC) Screen Presumptive negative 07/17/19 12:14 Drugs of Abuse Note Disclamer 07/17/19 12:14 Plasma/Serum Alcohol < 0.01 % (0-0.07) 07/17/19 11:53 Ayala/IV: Voiding Method Toilet IV Catheter Type [Left Forearm INT / Saline Lock ] IV Catheter Type [Left INT / Saline Lock Antecubital] Active Medications - Current Medications Current Medications: Generic Name Dose Route Start Last Admin Trade Name Freq PRN Reason Stop Dose Admin Acetaminophen 650 mg 07/17/19 13:42 Tylenol PO Q4H PRN Pain, Mild (1-3) Aspirin 325 mg 07/18/19 10:00 07/23/19 09:05 Aspirin PO 325 mg QDAY JODIE Administration Atorvastatin Calcium 40 mg 07/17/19 22:00 07/23/19 22:08 Lipitor PO 40 mg QHS JODIE Administration Bisacodyl 10 mg 07/17/19 13:42 Dulcolax ME QDAY PRN Constipation Chlordiazepoxide HCl 50 mg 07/17/19 11:52 Librium PO Q1H PRN CIWA-Ar 8-15 Chlordiazepoxide HCl 100 mg 07/17/19 11:52 Librium PO Q1H PRN CIWA-Ar 16-25 Clonidine HCl 0.1 mg 07/18/19 18:43 07/18/19 22:04 Catapres-Tts Patch TD 0.1 mg Mo JODIE Administration Dextrose 50 ml 07/17/19 13:40 D50w (25gm) Syringe IV Q30MIN PRN Hypoglycemia Protocol Fluoxetine HCl 20 mg 07/18/19 10:00 07/23/19 09:05 Prozac PO 20 mg QDAY JODIE Administration Folic Acid 1 mg 07/18/19 10:00 07/23/19 09:17 Folvite PO 1 mg DAILY JODIE Administration Haloperidol Lactate 5 mg 07/17/19 11:52 Haldol IV Q1H PRN Unrespon. to mult. doses BZD's Heparin Sodium (Porcine) 5,000 unit 07/20/19 22:00 07/23/19 22:12 Heparin SUB-Q Not Given Q12HR JODIE Hydralazine HCl 10 mg 07/18/19 18:41 Apresoline IV Q4HR PRN HTN SPB>160 OR DPB>105 Vancomycin HCl 1,250 mg/ 275 mls @ 166.667 mls/hr 07/20/19 08:00 07/24/19 08:34 Sodium Chloride IV 166.667 mls/hr Q12H JODIE Administration Insulin Human Lispro 0 unit 07/23/19 22:00 07/24/19 07:46 Humalog SUB-Q Not Given ACHS [facility] Protocol Insulin Human NPH 20 unit 07/21/19 17:00 07/24/19 09:06 Humulin N SUB-Q 20 unit BIDDIAB JODIE Administration Ketorolac Tromethamine 15 mg 07/23/19 20:58 Toradol IV 07/28/19 20:57 Q6H PRN Pain, Moderate (4-6) Levetiracetam 750 mg 07/20/19 22:00 07/23/19 22:08 Keppra PO 750 mg BID JODIE Administration Lorazepam 2 mg 07/17/19 11:52 Ativan IV Q1H PRN CIWA-Ar 8-15 Lorazepam 4 mg 07/17/19 11:52 Ativan IV Q1H PRN CIWA-Ar 16-25 Lorazepam 4 mg 07/17/19 11:52 Ativan IV Q15MIN PRN CIWA-Ar >25 Magnesium Hydroxide 30 ml 07/17/19 13:42 Milk Of Magnesia PO Q4H PRN Constipation Metoclopramide HCl 10 mg 07/17/19 13:42 Reglan PO Q6H PRN Nausea And Vomiting Nicotine 14 mg 07/17/19 15:00 07/23/19 09:04 Habitrol TD 14 mg DAILY JODIE Administration Ondansetron HCl 4 mg 07/17/19 13:42 Zofran IV Q8H PRN Nausea And Vomiting Promethazine HCl 25 mg 07/17/19 13:42 Phenergan ME Q6H PRN Nausea And Vomiting Sodium Chloride 10 ml 07/17/19 13:42 07/23/19 09:06 Sodium Chloride Flush Syringe 10 Ml IV 10 ml PRN PRN Administration LINE FLUSH Thiamine HCl 100 mg 07/18/19 10:00 07/23/19 09:05 Vitamin B-1 PO 100 mg QDAY JODIE Administration Trazodone HCl 50 mg 07/17/19 22:00 07/23/19 22:08 Desyrel PO 50 mg QHS JODIE Administration Valsartan 160 mg 07/18/19 19:00 07/23/19 09:06 Diovan PO 160 mg DAILY JODIE Administration
[2019-07-24] MEDS: VALSARTAN 160MG TAB PO SCH (11:40)
[2019-07-24] MEDS: FOLIC ACID 1 MG TAB PO SCH (11:41)
[2019-07-24] MEDS: ASPIRIN 325 MG TAB PO SCH (11:41)
[2019-07-24] MEDS: THIAMINE 100 MG TAB PO SCH (11:42)
[2019-07-24] MEDS: levETIRAcetam 500 MG/5 ML ORAL LIQD PO SCH ×2 (11:42→22:32)
[2019-07-24] MEDS: NICOTINE 14 MG/24 HR PATCH TD SCH (11:43)
[2019-07-24] MEDS: FLUoxetine 20 MG CAP PO SCH (11:43)
[2019-07-24] MEDS: HEPARIN 5,000 UNIT/1 ML VIAL SUB-Q SCH ×3 (11:44→22:35)
[2019-07-24] MEDS: traZODone 50 MG TAB PO SCH (22:33)
[2019-07-25] MEDS: INSULIN LISPRO 100 UNIT/ML SUB-Q SCH ×4 (09:00→22:11)
[2019-07-25] MEDS: INSULIN NPH, HUMAN 100 UNIT/1 ML SUB-Q SCH ×2 (09:01→17:20)
[2019-07-25] MEDS: VANCOMYCIN 1,250 MG in SODIUM CHLORIDE 0.9% 250ML 250 ML IV SCH (09:02)
[2019-07-25] MEDS: levETIRAcetam 500 MG/5 ML ORAL LIQD PO SCH ×2 (12:45→21:15)
[2019-07-25] MEDS: NICOTINE 14 MG/24 HR PATCH TD SCH (12:45)
[2019-07-25] MEDS: FOLIC ACID 1 MG TAB PO SCH (12:46)
[2019-07-25] MEDS: THIAMINE 100 MG TAB PO SCH (12:46)
[2019-07-25] MEDS: ASPIRIN 325 MG TAB PO SCH (12:46)
[2019-07-25] MEDS: HEPARIN 5,000 UNIT/1 ML VIAL SUB-Q SCH ×2 (12:47→21:16)
[2019-07-25] MEDS: FLUoxetine 20 MG CAP PO SCH (12:48)
[2019-07-25] MEDS: VALSARTAN 160MG TAB PO SCH (12:49)
--- NOTE | 2019-07-25 16:08 | Progress Note ---
Assessment and Plan Cultures: 07/17/2019 blood culture: No growth R hand wound culture: Staph aureus A/P: 63-year-old male with alcohol dependence, substance abuse, diabetes, hypertension, schizophrenia, tobacco abuse, h/o incarceration was brought in by EMS on 07/17/2019 with seizures: #R hand cellulitis, dog bite, possible abscess: The dog belongs to his cousin. Patient does not have his cousin's phone number but name is Valentina Boo lives on [address] in [place]. Patient thinks his phone got stolen at his house. Dog's vaccination status is unknown. Per my discussion with [place] animal control (07/20/2019) they will not be able to track down the dog, so best would be to proceed with PEP with HRIG and rabies vaccinations. Update from animal control (07/21/2019), they were able to track down the dog, dog is well and the bite happened on 07/09/2019, so rabies is not a concern anymore. #Seizure disorder #Polysubstance abuse: Utox positive for cocaine on admission. Not a candidate for IV abx on discharge. #Uncontrolled DM Recs: Stop vancomycin Started cefazolin 2 g every 8 hours Okay for discharge on Keflex 500 mg every 6 hours to complete 10 days of therapy until 07/30/2019 Infectious disease will sign off, please call with questions Marquise Sheth MD [facility] M: [phone] O: [phone] F: [phone] Subjective Date of service: 07/25/19 Principal diagnosis: Seizure Interval history: Afebrile normal white count. Wound culture with MSSA. No new complaints. Objective - Exam Narrative Exam: Constitutional: Alert, cooperative. No acute distress Head, Ears, Nose: Normocephalic, atraumatic. Eyes: Conjunctivae/corneas clear. No icterus. No ptosis. Neck: Supple, no meningeal signs Oral: no thrush Cardiovascular: S1, S2 normal. Respiratory: Good air entry, clear to auscultation bilaterally GI: Soft, non-tender; bowel sounds normal. No peritoneal signs Musculoskeletal: No pedal edema, no cyanosis. R hand webbing of 4th and 5th finger with wound improving Skin: No rash or abscess Hem/Lymphatic: No palpable cervical or supraclavicular nodes. No lymphangitis Psych: Mood ok. Affect flat Neurological: Awake, alert, oriented. No gross abnormality - Constitutional Vitals: Vital Signs Temp Pulse Resp BP Pulse Ox 98.6 F 74 18 113/73 99 07/25/19 11:55 07/25/19 12:49 07/25/19 11:55 07/25/19 12:49 07/25/19 11:55 Temperature -Last 24 Hours Temperature 98.6 F Temperature 98.7 F Temperature 98.9 F Temperature 98.4 F - Labs CBC & Chem 7: 07/21/19 05:15 07/21/19 05:15 Labs: Abnormal lab results 07/24/19 07/24/19 07/24/19 Range/Units 16:21 21:35 23:23 POC Glucose 106 H 66 L 161 H (70-105) 07/25/19 07/25/19 Range/Units 07:59 12:03 POC Glucose 167 H 232 H (70-105)
--- NOTE | 2019-07-25 18:37 | Progress Note ---
Assessment and Plan Assessment and plan: Patient is a 63 yo AA man with a history of ETOH Dependence, Cocaine Dependence, HTN, DM type 2, Nicotine Dependence and Paranoid Schhizophrenia who presented to [facility] ED with initial right upper extremity numbness that started 3 days ago. Upon the patient's arrival to emergency department he began to have seizure-like activity. He was confused. He was found to have blood pressure of 204/130, as well as symptoms consistent with alcohol withdrawal seizures, Cocaine positive in Urine drug screen. During my exam, I noticed his right hand is swollen, when I examined he mentions being bite by a dog. * CT head without contrast IMPRESSION: CT findings remain unchanged No acute parenchymal lesion Encephalomalacia in the left lateral frontal and parietal lobes * pCXR IMPRESSION: No acute abnormality or significant change. 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 No acute intracranial process is identified. 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 Right hand numbness, due to Dog bite with Right hand cellulitis: consulted ID and Ortho, notified both, start IV antibodies, consulted Wound care also, get XRAY Toxic encephalopathy, poa: travel counselor on stopping Cocaine, his niece Lisa at bedside also re-interated cessation from drug and alcohol Ruled out Acute CVA Seizure episodes thought to be ETOH WD sz: treat with CIWA protocol, thiamine and folic acid Tobacco dependency: travel counselor on stopping Alcohol withdrawal seizure: treat with IV ativan prn Cocaine abuse: travel counselor on stopping Cardiomyopathy, TTE Conclusions: trace MR, trace TR, mild LV hypertrophy, estimated EF 45-50%, mild global hypokinesis of Left ventricle Type 2 DM: Sliding scale insulin, Accu-Chek, consistent carbohydrate diet when alert and awake only, hypoglycemia protocol. Hypertension urgency: IV hydralazine every 6 hours as needed for systolic greater than 185. Has been weaned off Cardizem drip DVT prophylaxis: SCD to bilateral lower extremities while in bed, prophylactic sq heparin. 07/20/2019: yesterday patient had syncopal seizures which spontaneously resolved, continue Keppra EEG today. MRI hand shows cellulitis, appreciate Ortho and ID recommendation, will follow and continue abx. 07/21/2019: No more seizure on iv keppra, switch oral keppra, treated for Rabies per ID 07/22/2019: Doing well, no more seizures, close to being discharge, wound culture growing staph aureus, await to see if this is MRSA, added contact isolation. The right hand is much better, swelling down 80%, almost FROM now, 07/23/2019 No more seizures. Wound culture MSSA 07/24/2019 No more seizures. On Vancomycin 07/24 Doing well. No more seizures. ID o determine final ABX on dc, likely Zyvox to be arranged by assistant case manager. History Interval history: No more seizures No fever Hospitalist Physical - Physical exam Narrative exam: Gen: NAD, Awake, Alert, Orientated x 2 HEENT: NCAT, EOMI, PERRL, OP Clear Neck: supple, no adenopathy, no thyromegaly, no JVD CVS/Heart: RRR, normal S1S2, pulses present bilaterally Chest/Lungs: CTA B, Symmetrical chest expansion, good air entry bilaterally GI/Abdomen: soft, NTND, good bowel sounds, no guarding or rebound /Bladder: no suprapubic tenderness, no CVA or paraspinal tenderness Extermity/Skin: swollen right hand with purulent drainage from cut at the base of the right pinky palm MCP MSK: FROM x 4 Neuro: CN 2-12 grossly intact, no new focal deficits Psych: calm - Constitutional Vitals: Temp Pulse Resp BP Pulse Ox 98.1 F 75 18 120/80 94 07/25/19 16:59 07/25/19 16:59 07/25/19 16:59 07/25/19 16:59 07/25/19 16:59 General appearance: Present: no acute distress Results - Labs CBC & Chem 7: 07/21/19 05:15 07/21/19 05:15 Labs: Laboratory Last Values WBC 5.3 K/mm3 (4.5-11.0) 07/21/19 05:15 RBC 3.77 M/mm3 (3.65-5.03) 07/21/19 05:15 Hgb 12.5 gm/dl (11.8-15.2) 07/21/19 05:15 Hct 36.7 % (35.5-45.6) 07/21/19 05:15 MCV 97 fl (84-94) H 07/21/19 05:15 MCH 33 pg (28-32) H 07/21/19 05:15 MCHC 34 % (32-34) 07/21/19 05:15 RDW 13.5 % (13.2-15.2) 07/21/19 05:15 Plt Count 204 K/mm3 (140-440) 07/21/19 05:15 Lymph % (Auto) 19.3 % (13.4-35.0) 07/17/19 10:59 [place] % (Auto) 6.3 % (0.0-7.3) 07/17/19 10:59 Eos % (Auto) 1.3 % (0.0-4.3) 07/17/19 10:59 Baso % (Auto) 1.1 % (0.0-1.8) 07/17/19 10:59 Lymph # 1.4 K/mm3 (1.2-5.4) 07/17/19 10:59 [place] # 0.4 K/mm3 (0.0-0.8) 07/17/19 10:59 Eos # 0.1 K/mm3 (0.0-0.4) 07/17/19 10:59 Baso # 0.1 K/mm3 (0.0-0.1) 07/17/19 10:59 Seg Neutrophils % 72.0 % (40.0-70.0) H 07/17/19 10:59 Seg Neutrophils # 5.1 K/mm3 (1.8-7.7) 07/17/19 10:59 PT 12.5 Sec. (12.2-14.9) 07/17/19 11:53 INR 0.92 (0.87-1.13) 07/17/19 11:53 APTT 26.2 Sec. (24.2-36.6) 07/17/19 11:53 ABG pH 7.404 pH Units (7.350-7.450) 07/17/19 11:00 ABG pCO2 39.7 mm Hg 07/17/19 11:00 ABG pO2 91.1 mm Hg (80.0-90.0) H 07/17/19 11:00 ABG HCO3 24.2 mmol/L (20.0-26.0) 07/17/19 11:00 ABG O2 Saturation 97.3 % (95.0-99.0) 07/17/19 11:00 ABG O2 Content 17.5 (0.0-44) 07/17/19 11:00 ABG Base Excess -0.4 mmol/L (-2.0-3.0) 07/17/19 11:00 ABG Hemoglobin 13.2 gm/dl (14.0-18.0) L 07/17/19 11:00 ABG Carboxyhemoglobin 3.4 % (0.0-5.0) 07/17/19 11:00 ABG Methemoglobin 0.5 % (0.0-1.5) 07/17/19 11:00 Oxyhemoglobin 93.5 % (95.0-99.0) L 07/17/19 11:00 FiO2 32 % 07/17/19 11:00 Sodium 135 mmol/L (137-145) L 07/21/19 05:15 Potassium 4.0 mmol/L (3.6-5.0) D 07/21/19 05:15 Chloride 99.9 mmol/L (98-107) 07/21/19 05:15 Carbon Dioxide 23 mmol/L (22-30) 07/21/19 05:15 Anion Gap 16 mmol/L 07/21/19 05:15 BUN 16 mg/dL (9-20) 07/21/19 05:15 Creatinine 1.1 mg/dL (0.8-1.5) 07/21/19 05:15 Estimated GFR > 60 ml/min 07/21/19 05:15 BUN/Creatinine Ratio 15 % 07/21/19 05:15 Glucose 399 mg/dL (75-100) H 07/21/19 05:15 POC Glucose 177 (70-105) H 07/25/19 16:39 Lactic Acid 1.70 mmol/L (0.7-2.0) 07/17/19 11:53 Calcium 8.0 mg/dL (8.4-10.2) L 07/21/19 05:15 Phosphorus 2.90 mg/dL (2.5-4.5) 07/17/19 10:59 Magnesium 1.90 mg/dL (1.7-2.3) 07/17/19 16:08 Total Bilirubin 0.50 mg/dL (0.1-1.2) 07/17/19 10:59 AST 51 units/L (5-40) H 07/17/19 10:59 ALT 31 units/L (7-56) 07/17/19 10:59 Alkaline Phosphatase 183 units/L (35-129) H 07/17/19 10:59 Troponin T < 0.010 ng/mL (0.00-0.029) 07/17/19 11:53 NT-Pro-B Natriuret Pep 1105 pg/mL (0-900) H 07/17/19 10:59 Total Protein 6.3 g/dL (6.3-8.2) 07/17/19 10:59 Albumin 3.2 g/dL (3.9-5) L 07/17/19 10:59 Albumin/Globulin Ratio 1.0 % 07/17/19 10:59 Triglycerides 123 mg/dL (2-149) 07/18/19 05:32 Cholesterol 174 mg/dL (50-199) 07/18/19 05:32 LDL Cholesterol Direct 110 mg/dL (50-130) 07/18/19 05:32 HDL Cholesterol 51 mg/dL (40-59) 07/18/19 05:32 Cholesterol/HDL Ratio 3.41 % 07/18/19 05:32 TSH 0.327 mlU/mL (0.270-4.200) 07/17/19 16:08 Free T4 1.16 ng/dL (0.76-1.46) 07/17/19 16:08 Urine Color Straw (Yellow) 07/17/19 12:14 Urine Turbidity Clear (Clear) 07/17/19 12:14 Urine pH 7.0 (5.0-7.0) 07/17/19 12:14 Ur Specific [place] 1.017 (1.003-1.030) 07/17/19 12:14 Urine Protein 100 mg/dl mg/dL (Negative) 07/17/19 12:14 Urine Glucose (UA) >=500 mg/dL (Negative) 07/17/19 12:14 Urine Ketones Tr mg/dL (Negative) 07/17/19 12:14 Urine Blood Sm (Negative) 07/17/19 12:14 Urine Nitrite Neg (Negative) 07/17/19 12:14 Urine Bilirubin Neg (Negative) 07/17/19 12:14 Urine Urobilinogen < 2.0 mg/dL (<2.0) 07/17/19 12:14 Ur Leukocyte Esterase Neg (Negative) 07/17/19 12:14 Urine WBC (Auto) < 1.0 /HPF (0.0-6.0) 07/17/19 12:14 Urine RBC (Auto) 1.0 /HPF (0.0-6.0) 07/17/19 12:14 U Epithel Cells (Auto) < 1.0 /HPF (0-13.0) 07/17/19 12:14 Vancomycin Trough 15.0 ug/mL (5.0-20.0) 07/22/19 07:56 Urine Opiates Screen Presumptive negative 07/17/19 12:14 Urine Methadone Screen Presumptive negative 07/17/19 12:14 Ur Barbiturates Screen Presumptive negative 07/17/19 12:14 Ur Phencyclidine Scrn Presumptive negative 07/17/19 12:14 Ur Amphetamines Screen Presumptive negative 07/17/19 12:14 U Benzodiazepines Scrn Presumptive negative 07/17/19 12:14 Urine Cocaine Screen Presumptive positive 07/17/19 12:14 U Marijuana (THC) Screen Presumptive negative 07/17/19 12:14 Drugs of Abuse Note Disclamer 07/17/19 12:14 Plasma/Serum Alcohol < 0.01 % (0-0.07) 07/17/19 11:53 Ayala/IV: Voiding Method Toilet IV Catheter Type [Left Forearm INT / Saline Lock ] IV Catheter Type [Left INT / Saline Lock Antecubital] Active Medications - Current Medications Current Medications: Generic Name Dose Route Start Last Admin Trade Name Freq PRN Reason Stop Dose Admin Acetaminophen 650 mg 07/17/19 13:42 Tylenol PO Q4H PRN Pain, Mild (1-3) Aspirin 325 mg 07/18/19 10:00 07/25/19 12:46 Aspirin PO 325 mg QDAY JODIE Administration Atorvastatin Calcium 40 mg 07/17/19 22:00 07/24/19 22:33 Lipitor PO 40 mg QHS JODIE Administration Bisacodyl 10 mg 07/17/19 13:42 Dulcolax ND QDAY PRN Constipation Chlordiazepoxide HCl 50 mg 07/17/19 11:52 Librium PO Q1H PRN CIWA-Ar 8-15 Chlordiazepoxide HCl 100 mg 07/17/19 11:52 Librium PO Q1H PRN CIWA-Ar 16-25 Clonidine HCl 0.1 mg 07/18/19 18:43 07/18/19 22:04 Catapres-Tts Patch TD 0.1 mg Mo JODIE Administration Dextrose 50 ml 07/17/19 13:40 D50w (25gm) Syringe IV Q30MIN PRN Hypoglycemia Protocol Fluoxetine HCl 20 mg 07/18/19 10:00 07/25/19 12:48 Prozac PO 20 mg QDAY JODIE Administration Folic Acid 1 mg 07/18/19 10:00 07/25/19 12:46 Folvite PO 1 mg DAILY JODIE Administration Haloperidol Lactate 5 mg 07/17/19 11:52 Haldol IV Q1H PRN Unrespon. to mult. doses BZD's Heparin Sodium (Porcine) 5,000 unit 07/20/19 22:00 07/25/19 12:47 Heparin SUB-Q Not Given Q12HR [facility] Hydralazine HCl 10 mg 07/18/19 18:41 Apresoline IV Q4HR PRN HTN SPB>160 OR DPB>105 Cefazolin Sodium 2 gm/ Sodium 100 mls @ 200 mls/hr 07/25/19 18:00 Chloride IV Q8H [facility] Protocol Insulin Human Lispro 0 unit 07/23/19 22:00 07/25/19 17:22 Humalog SUB-Q 3 unit ACHS JODIE Administration Protocol Insulin Human NPH 20 unit 07/21/19 17:00 07/25/19 17:20 Humulin N SUB-Q 20 unit BIDDIAB JODIE Administration Ketorolac Tromethamine 15 mg 07/23/19 20:58 Toradol IV 07/28/19 20:57 Q6H PRN Pain, Moderate (4-6) Levetiracetam 750 mg 07/20/19 22:00 07/25/19 12:45 Keppra PO 750 mg BID JODIE Administration Lorazepam 2 mg 07/17/19 11:52 Ativan IV Q1H PRN CIWA-Ar 8-15 Lorazepam 4 mg 07/17/19 11:52 Ativan IV Q1H PRN CIWA-Ar 16-25 Lorazepam 4 mg 07/17/19 11:52 Ativan IV Q15MIN PRN CIWA-Ar >25 Magnesium Hydroxide 30 ml 07/17/19 13:42 Milk Of Magnesia PO Q4H PRN Constipation Metoclopramide HCl 10 mg 07/17/19 13:42 Reglan PO Q6H PRN Nausea And Vomiting Nicotine 14 mg 07/17/19 15:00 07/25/19 12:45 Habitrol TD 14 mg DAILY JODIE Administration Ondansetron HCl 4 mg 07/17/19 13:42 Zofran IV Q8H PRN Nausea And Vomiting Promethazine HCl 25 mg 07/17/19 13:42 Phenergan ND Q6H PRN Nausea And Vomiting Sodium Chloride 10 ml 07/17/19 13:42 07/23/19 09:06 Sodium Chloride Flush Syringe 10 Ml IV 10 ml PRN PRN Administration LINE FLUSH Thiamine HCl 100 mg 07/18/19 10:00 07/25/19 12:46 Vitamin B-1 PO 100 mg QDAY JODIE Administration Trazodone HCl 50 mg 07/17/19 22:00 07/24/19 22:33 Desyrel PO 50 mg QHS JODIE Administration Valsartan 160 mg 07/18/19 19:00 07/25/19 12:49 Diovan PO Not Given DAILY [facility] Nutrition/Malnutrition Assess - Dietary Evaluation Nutrition/Malnutrition Findings: Nutrition Notes Start: 07/25/19 16:23 Freq: Status: Active Protocol: Document 07/25/19 16:23 OH (Rec: 07/25/19 16:30 OH [id number]) Nutrition Notes Need for Assessment generated from: LOS Initial or Follow up Assessment Current Diagnosis Diabetes Other Pertinent Diagnosis CELLULITIS, ETOH ABUSE, COCAINE ABUSE, SEIZURES Current Diet Consistent CHO Labs/Tests ALB 3.2 Pertinent Medications REVIEWED Height 6 ft Weight 99.6 kg [place] Body Weight (kg) 80.90 BMI 29.7 Intake Prior to Admission Fair Weight Status Overweight Subjective/Other Information Pt. w/hx of mental issues. Pt. has cellulitis secondary to dog bite. Percent of energy/protein needs met: 50/50 Burn Absent Trauma Present Current % PO Fair (50-74%) Minimum of two criteria No physical signs of malnutrition Protein-Calorie Malnutrition Severe #2 Nutrition Diagnosis Inadequate oral intake Etiology substance abuse As Evidenced by Signs and Symptoms poor nutritional status #1 Nutrition Diagnosis Limited adherence to nutrition -related recommendations Etiology uncontrolled dm As Evidenced by Signs and Symptoms non compliance w/diabetes recommendations Is patient on ventilator? No Is Patient Ambulatory and/or Out of Bed Yes REE-([place]-ambulatory/OOB) [ [phone] NUTR.[id number]] Additional Notes PRO: 1-1.2 g/kg/ FLUID: 1 ml/kcal Nutrition Intervention Change Diet Order: Cont consistent CHO Add Supplement/Snack (indicate name/kcal glucerna q day /protein ) Goal #1 po intake to exceed 75% Goal #2 ONS tolerance Goal #3 Improved BG control Anticipated Discharge Needs: DM EDUCATION Follow-Up By: 07/26/19 Additional Comments PO INTAKE/ONS TOLERANCE
[2019-07-25] MEDS: cloNIDine TTS 0.1 MG/24 HR PATCH TD SCH (19:17)
[2019-07-25] MEDS: traZODone 50 MG TAB PO SCH (21:16)
[2019-07-26 06:11] VITALS: BP 139/86
[2019-07-26] MEDS: INSULIN NPH, HUMAN 100 UNIT/1 ML SUB-Q SCH (08:46)
[2019-07-26] MEDS: INSULIN LISPRO 100 UNIT/ML SUB-Q SCH ×2 (08:50→13:26)
[2019-07-26] MEDS: FOLIC ACID 1 MG TAB PO SCH (09:44)
[2019-07-26] MEDS: VALSARTAN 160MG TAB PO SCH (09:44)
[2019-07-26] MEDS: FLUoxetine 20 MG CAP PO SCH (09:44)
[2019-07-26] MEDS: HEPARIN 5,000 UNIT/1 ML VIAL SUB-Q SCH (09:44)
[2019-07-26] MEDS: ASPIRIN 325 MG TAB PO SCH (09:44)
[2019-07-26] MEDS: levETIRAcetam 500 MG/5 ML ORAL LIQD PO SCH (09:44)
[2019-07-26] MEDS: NICOTINE 14 MG/24 HR PATCH TD SCH (09:44)
[2019-07-26] MEDS: THIAMINE 100 MG TAB PO SCH (09:51)
--- NOTE | 2019-07-26 10:25 | Discharge Summary ---
Providers - Providers Date of Admission: 07/18/19 18:45 Date of discharge: 07/26/19 Attending physician: CATIE ACEVEDO 07/17/19 13:42 Occupational Therapy Evaluate and Treat [CONS] Routine Comment: Reason For Exam: Neuro deficits Physical Therapy Evaluation and Treat [CONS] Routine Comment: Reason For Exam: Neuro deficits Speech Therapy Evaluation and Treat [CONS] Routine Reason For Exam: swallow eval 07/18/19 08:07 Consult to Physician [CONS] Routine Comment: Consulting Provider: RADHA WOOTEN Physician Instructions: Reason For Exam: cva 07/19/19 15:40 Consult to Physician [CONS] Routine Comment: Consulting Provider: BRIGETTE BAUMAN Physician Instructions: I notified Reason For Exam: Dog bite to right hand 07/19/19 15:42 Consult to Physician [CONS] Routine Comment: Consulting Provider: JOSE REGAN Physician Instructions: Reason For Exam: Hand infection, does he need transfer, please eval Consult to Wound/ET Nurse [CONS] Routine Reason For Exam: wound eval 07/19/19 17:29 Physical Therapy For [place] Treatment [CONS] Routine Reason For Exam: Open wound right fifth finger 07/20/19 07:41 Consult to Physician [CONS] Routine Comment: Consulting Provider: ABBY LEBRON Physician Instructions: Reason For Exam: syncope 07/22/19 15:31 Consult to Case Management [CONS] Routine Services Needed at Discharge: Other Notified:: cm Comment:: Linezolid Additional Physician Instructions: Please help arrange PO Linezolid 600 mg BID x 10 days. May discharge patient after that. Thanks. [facility] Hospital[facility] Condition: Fair Hospital course: Patient is a 63 yo AA man with a history of ETOH Dependence, Cocaine Dependence, HTN, DM type 2, Nicotine Dependence and Paranoid Schhizophrenia who presented to [facility] ED with initial right upper extremity numbness that started 3 days ago. Upon the patient's arrival to emergency department he began to have seizure-like activity. He was confused. He was found to have blood pressure of 204/130, as well as symptoms consistent with alcohol withdrawal seizures, Cocaine positive in Urine drug screen. Patient also gave h/o dogbite to the right hand. He was treated with alcohol withdrawal protocol, placed on cardene drip, iv abx. ID wa s consulted. Wound Cx grew MSSA. His symptom improved clinically. He was then placed on Keflex 500 mg every 6 hours to complete 10 days of therapy until 07/30/2019. radiological data: CT head without contrast IMPRESSION: CT findings remain unchanged No acute parenchymal lesion Encephalomalacia in the left lateral frontal and parietal lobes pCXR IMPRESSION: No acute abnormality or significant change. MRI brain without contrast IMPRESSION: Chronic infarct in the left MCA distribution as described. No acute intracranial process is identified. 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 Discharge diagnosis: Right hand cellulitis due to dogbite: consulted ID and Ortho, treated with iv abx and discharged on Keflex 500 mg every 6 hours to complete 10 days of therapy until 07/30/2019 Toxic encephalopathy, poa: from cocaine/ETOH -family life counselor on stopping Cocaine, his niece iLsa at bedside also re-interated cessation from drug and alcohol - Ruled out Acute CVA Seizure episodes thought to be ETOH WD sz: - treated with CIWA protocol, thiamine and folic acid Tobacco dependency: counseled on stopping Alcohol withdrawal with seizure: treated with IV ativan prn Cocaine abuse: counseled on stopping Cardiomyopathy, TTE Conclusions: trace MR, trace TR, mild LV hypertrophy, estimated EF 45-50%, mild global hypokinesis of Left ventricle Type 2 DM: managed with Sliding scale insulin, Accu-Chek, consistent carbohydrate diet, hypoglycemia protocol. Hypertension urgency: IV hydralazine every 6 hours as needed for systolic greater than 185. s/p Cardizem drip DVT prophylaxis: SCD to bilateral lower extremities while in bed, prophylactic sq heparin. Disposition: TO HOME OR SELFCARE Time spent for discharge: 34 minutes Core Measure Documentation - Palliative Care Palliative Care/ Comfort Measures: Not Applicable - Core Measures Any of the following diagnoses?: none Exam - Physical Exam Narrative exam: Gen: NAD, Awake, Alert, Orientated x 2 HEENT: NCAT, EOMI, PERRL, OP Clear Neck: supple, no adenopathy, no thyromegaly, no JVD CVS/Heart: RRR, normal S1S2, pulses present bilaterally Chest/Lungs: CTA B, Symmetrical chest expansion, good air entry bilaterally GI/Abdomen: soft, NTND, good bowel sounds, no guarding or rebound /Bladder: no suprapubic tenderness, no CVA or paraspinal tenderness Extermity/Skin: dressing on right hand MSK: FROM x 4 Neuro: CN 2-12 grossly intact, no new focal deficits Psych: calm - Constitutional Vitals: Temp Pulse Resp BP Pulse Ox 97.7 F 80 16 139/86 97 07/26/19 05:09 07/26/19 05:09 07/26/19 05:09 07/26/19 05:09 07/26/19 05:09 Plan Activity: advance as tolerated Weight Bearing Status: Weight Bear as Tolerated Diet: low fat, low salt Special Instructions: smoking cessation [facility] [Primary Care Provider] - 3-5 Days CHANI ORBERTS MD [Staff Physician] - 7 Days Prescriptions: cloNIDine-TTS PATCH [Catapres-Tts 0.1MG Patch] 0.1 mg TD Mo #10 patch Valsartan [Diovan] 160 mg PO DAILY #30 tablet Aspirin EC [Halfprin EC] 81 mg PO QDAY #30 tablet. cephALEXin [Keflex] 500 mg PO Q6HR #20 capsule levETIRAcetam [Keppra TAB] 750 mg PO BID #60 tablet
== END 2019-07-26 14:30 | disposition home or self-care (01) | DRG 917 ==
LOC: ED 10:20 → 4A 13:42 → IMCU 14:57 → 3A 07-18 17:07 → OBSVTOIN 07-18 18:45
PROVIDERS: ADMIT Internal Medicine; ATTEND Internal Medicine
PROC: 3E0234Z Introduction of Serum, Toxoid and Vaccine into Muscle, Percutaneous Approach (ICD-10-PCS; principal; 2019-07-20)
DX: T40.5X1A Poisoning by cocaine, accidental (unintentional), initial encounter (principal); G92 Toxic encephalopathy; G40.909 Epilepsy, unspecified, not intractable, without status epilepticus; L03.113 Cellulitis of right upper limb; I42.9 Cardiomyopathy, unspecified; F10.239 Alcohol dependence with withdrawal, unspecified; F20.0 Paranoid schizophrenia; F14.10 Cocaine abuse, uncomplicated; I16.0 Hypertensive urgency; I10 Essential (primary) hypertension; E11.9 Type 2 diabetes mellitus without complications; F17.213 Nicotine dependence, cigarettes, with withdrawal; W54.0XXA Bitten by dog, initial encounter; Z71.6 Tobacco abuse counseling; Y93.89 Activity, other specified; Y92.89 Other specified places as the place of occurrence of the external cause; Y99.8 Other external cause status; Z71.51 Drug abuse counseling and surveillance of drug abuser; Z82.49 Family history of ischemic heart disease and other diseases of the circulatory system; Z83.3 Family history of diabetes mellitus; Z79.899 Other long term (current) drug therapy; Z23 Encounter for immunization
CPT/HCPCS: 36415; 70450; 70551; 71045; 80048; 80053; 80061; 80202; 80307; 80320; 81001; 82140; 82803; 82962; 83735; 83880; 84100; 84439; 84443; 84484; 85025; 85027; 85610; 85730; 87040; 87076; 87116; 87186; 90375; 90675; 93005; 93010; 93306; 94760; 95819; G0378; A9270-GY; A9577; G0480; J0295; J0360; J0690; J1644; J1815; J1953; J2060; J3370; J3411; J7030; J7040; J7050

== ENCOUNTER 2020-07-18 07:08 | Inpatient (IN) | payer MEDICAID ==
--- NOTE | 2020-07-18 08:03 | Emergency Department Report ---
ED General Adult HPI - General Chief complaint: Fall Stated complaint: MEI Time Seen by Provider: 07/18/20 07:48 Source: EMS Mode of arrival: Stretcher Limitations: Altered Mental Status - History of Present Illness Initial comments: This is a 64-year-old male who apparently fell this morning. He is somewhat aphasic, encephalopathic or otherwise dysarthric and not able to give a detailed history. He denies previous stroke. 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 He is able to tell me his name. He states he was discharged from the hospital last Thursday which does not appear to be accurate. He states he fell at home because he tripped. Apparently he has wound care of his left leg underway. He states he hurt his left leg when he fell but nothing else. It does appear his chief complaint is "swelling". He does appear to have anasarca. End of June 2020: INFECTIOUS DISEASE ASSESSMENT: Assessment and Plan Cultures: SARS CoV2 PCR: Negative 06/21/2020 blood culture: Staph aureus 06/22/2020 blood culture: MSSA 06/26/2020 blood culture: No growth 06/28/2020 surgical culture: Klebsiella oxytoca: Cefazolin resistant A/P: 64-year-old male with diabetes, seizure disorder, hypertension, depression, alcohol dependence, substance abuse was admitted to the hospital with altered mental status: #Sepsis: secondary to bacteremia. Resolved. #Abscess: Likely source of bacteremia, blood cultures with staph aureus. s/p excision and drainage of right leg abscess #Staph aureus bacteremia: source likely R leg wound with drainage/abscess. Urine tox screen positive for cocaine. #Bilateral pneumonia: Follow-up COVID-19 PCR. ?septic emboli. #RACQUEL: renally dose abx. #Substance abuse: Urinary tox screen positive for cocaine. #Leg wound: seen by wound care, set up with outpatient appointment. #Acute encephalopathy: probably from sepsis and substance abuse. Recs: Ancef 2g q8h Case management consulted for cefazolin 2g q8h until 07/24/2020 Ordered midline. Started Levaquin For K oxytoca. Complete 7 days NEPHROLOGY PROGRESS: Assessment and Plan - Patient Problems (1) Chronic kidney disease, stage 3a Current Visit: Yes Status: Acute Plan to address problem: s/p RACQUEL d/t prerenal azotemia in the setting of sepsis/hyperglycema, renal func tion is now stabilizing to pt's baseline. Pt has underlying CKD 3 2/2 presumed diabetic nephropathy. Na/K improved with glucose control. cont supportive care for CKD, avoid nephrotoxins, NSAIDS, IV contrast. urine Protein/Cr ratio > 2.6g/g likely secondary to underlying diabetic nephropathy. stable for discharge from renal stand point with outpatient CKD f/u in 2 weeks (2) Cellulitis of right lower extremity Current Visit: Yes Status: Acute Plan to address problem: cont IV ABXs as per ID recommendations. (3) Hyperkalemia Current Visit: No Status: Acute Plan to address problem: treat with Kayexalate 30g, cont 2g K renal diet (4) Hyponatremia Current Visit: Yes Status: Acute Plan to address problem: Na normalized with improved glucose control (5) Type 2 diabetes mellitus with diabetic nephropathy Current Visit: No Status: Acute Plan to address problem: DM management as per primary attending (6) Heroin abuse Current Visit: Yes Status: Acute (7) Pneumonia, unspecified organism Current Visit: Yes Status: Acute Plan to address problem: on IV ABXs with cefepime/vanco - Related Data Previous Rx's Medication Instructions Recorded Last Taken Type FLUoxetine [PROzac] 20 mg PO QDAY #14 capsule 06/23/19 Unknown Rx traZODone [Desyrel] 50 mg PO QHS #10 tablet 06/23/19 Unknown Rx Folic Acid 1 mg PO DAILY #30 tablet 06/25/19 Unknown Rx Nicotine [Habitrol] 14 mg TD DAILY #30 patch 06/25/19 Unknown Rx Thiamine [Vitamin B-1] 100 mg PO QDAY #30 tablet 06/25/19 Unknown Rx Aspirin EC [Halfprin EC] 81 mg PO QDAY #30 tablet. 07/26/19 Unknown Rx levETIRAcetam [Keppra TAB] 750 mg PO BID #60 tablet 07/26/19 Unknown Rx Furosemide [Lasix TAB] 40 mg PO QDAY #30 tablet 04/28/20 Unknown Rx Famotidine [Pepcid] 20 mg PO BID #60 tablet 07/05/20 Unknown Rx Insulin NPH, Human [NovoLIN N] 5 unit SUB-Q BIDDIAB 30 Days #10 ml 07/05/20 Unknown Rx amLODIPine 10 mg PO QDAY #30 tablet 07/05/20 Unknown Rx carvediloL [Coreg] 12.5 mg PO BID #60 tablet 07/05/20 Unknown Rx hydrALAZINE [Apresoline TAB] 50 mg PO Q8HR #30 tablet 07/06/20 Unknown Rx Allergies Allergy/AdvReac Type Severity Reaction Status Date / Time No Known Allergies Allergy Verified 06/19/19 17:53 ED Review of Systems ROS: Stated complaint: MEI Other details as noted in HPI ED Past Medical Hx - Past Medical History Hx Hypertension: Yes (EF 35-40%) Hx Congestive Heart Failure: Yes Hx Diabetes: Yes Hx Deep Vein Thrombosis: (unknown) Hx Liver Disease: No Hx Renal Disease: No Hx Seizures: Yes Hx Psychiatric Treatment: Yes (Paranoid Schizophrenia) Hx Asthma: No Hx COPD: No - Surgical History Hx Pacemaker: No Hx Internal Defibrillator: No - Social History Smoking Status: Unknown if ever smoked - Medications Home Medications: Home Medications Medication Instructions Recorded Confirmed Last Taken Type FLUoxetine [PROzac] 20 mg PO QDAY #14 capsule 06/23/19 06/21/20 Unknown Rx traZODone [Desyrel] 50 mg PO QHS #10 tablet 06/23/19 06/21/20 Unknown Rx Folic Acid 1 mg PO DAILY #30 tablet 06/25/19 06/21/20 Unknown Rx Nicotine [Habitrol] 14 mg TD DAILY #30 patch 06/25/19 06/21/20 Unknown Rx Thiamine [Vitamin B-1] 100 mg PO QDAY #30 tablet 06/25/19 06/21/20 Unknown Rx Aspirin EC [Halfprin EC] 81 mg PO QDAY #30 tablet. 07/26/19 06/21/20 Unknown Rx levETIRAcetam [Keppra TAB] 750 mg PO BID #60 tablet 07/26/19 06/21/20 Unknown Rx Furosemide [Lasix TAB] 40 mg PO QDAY #30 tablet 04/28/20 06/21/20 Unknown Rx Famotidine [Pepcid] 20 mg PO BID #60 tablet 07/05/20 Unknown Rx Insulin NPH, Human [NovoLIN N] 5 unit SUB-Q BIDDIAB 30 Days #10 ml 07/05/20 06/21/20 Unknown Rx amLODIPine 10 mg PO QDAY #30 tablet 07/05/20 Unknown Rx carvediloL [Coreg] 12.5 mg PO BID #60 tablet 07/05/20 Unknown Rx hydrALAZINE [Apresoline TAB] 50 mg PO Q8HR #30 tablet 07/06/20 Unknown Rx ED Physical Exam - General Limitations: Altered Mental Status ED Course Vital Signs 07/18/20 07/18/20 07/18/20 07:17 07:27 07:30 Temperature Pulse Rate 53 L 53 L 54 L Respiratory 13 14 13 Rate Blood Pressure 109/77 Blood Pressure 109/77 [Right] O2 Sat by Pulse 100 100 Oximetry 07/18/20 08:40 Temperature 89.1 F L Pulse Rate Respiratory Rate Blood Pressure Blood Pressure [Right] O2 Sat by Pulse Oximetry - Reevaluation(s) Reevaluation #1: Rewarming, empiric antibiotics, gentle hydration. Patient does have anasarca and proBNP of nearly 4800. He has acute on chronic renal failure. Consult to Dr. Hodge regarding this and fluid management. Discussed with Dr. Camargo. Also PUI, admit to stepdown 07/18/20 09:56 ED Medical Decision Making - Lab Data Result diagrams: 07/18/20 08:56 07/18/20 08:56 Laboratory Results - last 24 hr 07/18/20 08:56 WBC 3.5 L RBC 2.51 L Hgb 8.0 L Hct 24.5 L MCV 98 H MCH 32 MCHC 33 RDW 18.3 H Plt Count 58 L Lymph % (Auto) 33.7 [place] % (Auto) 11.1 H Eos % (Auto) 0.8 Baso % (Auto) 0.2 Lymph # (Auto) 1.2 [place] # (Auto) 0.4 Eos # (Auto) 0.0 Baso # (Auto) 0.0 Seg Neutrophils % 54.2 Seg Neutrophils # 1.9 Laboratory Results - last 24 hr 07/18/20 07/18/20 07/18/20 08:56 08:56 08:56 WBC 3.5 L RBC 2.51 L Hgb 8.0 L Hct 24.5 L MCV 98 H MCH 32 MCHC 33 RDW 18.3 H Plt Count 58 L Lymph % (Auto) 33.7 [place] % (Auto) 11.1 H Eos % (Auto) 0.8 Baso % (Auto) 0.2 Lymph # (Auto) 1.2 [place] # (Auto) 0.4 Eos # (Auto) 0.0 Baso # (Auto) 0.0 Seg Neutrophils % 54.2 Seg Neutrophils # 1.9 PT 14.8 INR 1.18 H APTT 36.4 Sodium 146 H Potassium 5.2 H Chloride 117.3 H Carbon Dioxide 21 L Anion Gap 13 BUN 52 H Creatinine 3.1 H Estimated GFR 25 BUN/Creatinine Ratio 17 Glucose 118 H Lactic Acid Calcium 8.1 L Phosphorus 4.40 Magnesium 2.10 Total Creatine Kinase 108 Troponin T 0.057 H NT-Pro-B Natriuret Pep Blood Type 07/18/20 07/18/20 07/18/20 08:56 08:56 08:56 WBC RBC Hgb Hct MCV MCH MCHC RDW Plt Count Lymph % (Auto) [place] % (Auto) Eos % (Auto) Baso % (Auto) Lymph # (Auto) [place] # (Auto) Eos # (Auto) Baso # (Auto) Seg Neutrophils % Seg Neutrophils # PT INR APTT Sodium Potassium Chloride Carbon Dioxide Anion Gap BUN Creatinine Estimated GFR BUN/Creatinine Ratio Glucose Lactic Acid 0.80 Calcium Phosphorus Magnesium Total Creatine Kinase Troponin T NT-Pro-B Natriuret Pep 4777 H Blood Type A POSITIVE - EKG Data -: EKG Interpreted by Co EKG shows normal: sinus rhythm, axis, intervals, QRS complexes, ST-T waves Rate: bradycardia - EKG Data Interpretation: nonspecific ST-T wave melchro, other - Radiology Data Radiology results: report reviewed, image reviewed IMPRESSION: 1. Stable bibasilar pleuroparenchymal opacities. Signer Name: Felix Santos MD Signed: 07/18/2020 9:11 AM Workstation Name: Your Image by [id number] tib/fib SOFT TISSUE DEFECT NO BONY ABN. Critical Care Time: Yes (Low voltage) Critical care time in (mins) excluding proc time.: 90 Critical care attestation.: If time is entered above; I have spent that time in minutes in the direct care of this critically ill patient, excluding procedure time. ED Disposition Clinical Impression: Acute metabolic encephalopathy, Thrombocytopenia, Anasarca, Person under investigation for COVID-19, Hyperkalemia Sepsis Qualifiers: Sepsis type: sepsis due to unspecified organism Sepsis acute organ dysfunction status: with acute organ dysfunction Severe sepsis acute organ dysfunction type: acute renal failure Acute renal failure type: unspecified Severe sepsis shock status: without septic shock Qualified Code(s): A41.9 - Sepsis, unspecified organism; R65.20 - Severe sepsis without septic shock; N17.9 - Acute kidney failure, unspecified Acute on chronic renal failure Qualifiers: Acute renal failure type: unspecified Chronic kidney disease stage: stage 3 (moderate) Chronic kidney disease stage 3 subtype: stage 3a (GFR 45-59) Qualified Code(s): N17.9 - Acute kidney failure, unspecified; N18.31 - Chronic kidney disease, stage 3a Hypothermia Qualifiers: Encounter type: initial encounter Qualified Code(s): T68.XXXA - Hypothermia, initial encounter Cardiomyopathy Qualifiers: Cardiomyopathy type: unspecified Qualified Code(s): I42.9 - Cardiomyopathy, unspecified Anemia Qualifiers: Anemia type: unspecified type Qualified Code(s): D64.9 - Anemia, unspecified Disposition: DC-09 OP ADMIT IP TO THIS HOSP Is pt being admited?: Yes Does the pt Need Aspirin: No (Contraindicated secondary to thrombocytopenia) Condition: Stable Referrals: PRIMARY CARE, [Referring] - 3-5 Days
[2020-07-18 09:15] LABS: Basophils % (Auto) 0.2 % (0.0-1.8); Eosinophils % (Auto) 0.8 % (0.0-4.3); Hematocrit 24.5 % (35.5-45.6); Lymphocytes # (Auto) 1.2 K/mm3 (1.2-5.4); Lymphocytes % (Auto) 33.7 % (13.4-35.0); Mean Corpuscular HGB Conc 33 % (32-34); Mean Corpuscular Volume 98 fl (84-94); Monocytes # (Auto) 0.4 K/mm3 (0.0-0.8); Monocytes % (Auto) 11.1 % (0.0-7.3); Red Blood Count 2.51 M/mm3 (3.65-5.03); Red Cell Distribution Width 18.3 % (13.2-15.2)
--- NOTE | 2020-07-18 09:15 | XRay Report ---
RIGHT TIBIA AND FIBULA, AP AND LATERAL VIEWS INDICATION: Weakness, fall. COMPARISON: No relevant prior imaging study available. FINDINGS: There is a soft tissue defect along the posterior aspect of the calf consistent with penetrating trau ma/laceration injury. No acute, displaced fracture or dislocation is seen. Moderate degenerative changes are noted at the r ight knee and right ankle. IMPRESSION: 1. Soft tissue defect posterior calf. No fracture identified. CHEST 1 VIEW INDICATION: Weakness, fall. COMPARISON: 07/01/2020 FINDINGS: Support devices: Left PICC is unchanged. Heart: Normal. Lungs/Pleura: Bibasilar pleuroparenchymal opacities are again noted. No pneumothorax. IMPRESSION: 1. Stable bibasilar pleuroparenchymal opacities. Signer Name: Felix Santos MD Signed: 07/18/2020 9:11 AM Workstation Name: [id number]
[2020-07-18 09:16] LABS: Platelet Count 58 K/mm3 (140-440)
[2020-07-18] MEDS ORDERED: CEFEPIME/NS 1 GM/100 ML 1 GM/100 ML BAG IV ONE (09:27)
[2020-07-18 09:29] LABS: INR 1.18 (0.87-1.13)
[2020-07-18] MEDS ORDERED: SODIUM CHLORIDE 0.9% 1000 ML 1,000 ML IV ONE (09:29)
[2020-07-18 09:30] LABS: Partial Thromboplastin Time 36.4 Sec. (24.2-36.6)
[2020-07-18 09:37] LABS: Calcium 8.1 mg/dL (8.4-10.2)
[2020-07-18 09:49] LABS: Free T4 (Free Thyroxine) 0.84 ng/dL (0.76-1.46)
--- NOTE | 2020-07-18 09:57 | History and Physical Report ---
History of Present Illness Date of examination: 07/18/20 Date of admission: 07/18 Chief complaint: Altered level of consciousness History of present illness: 64-year-old male with significant past medical history of diabetes mellitus, chronic kidney disease, history of CVA with residual weakness,apparently fell this morning. He is somewhat aphasic, encephalopathic or otherwise dysarthric and not able to give a detailed history. He denies previous stroke. 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 He is able to tell me his name. He states he was discharged from the hospital last Thursday which does not appear to be accurate. He states he fell at home because he tripped. Apparently he has wound care of his left leg underway. He states he hurt his left leg when he fell but nothing else. Patient was recently admitted for MSSA bacteremia and was discharged 2 weeks ago on long-term antibiotic Unasyn Patient is confused, altered no other additional history is available Initial work-up is consistent with pancytopenia[anemia, mild leukopenia, thrombocytopenia Chest x-ray chronic stable infiltrates. X-ray tibia-fibula no acute fracture soft tissue injury noted Patient was hypothermic and septic Received a dose of cefepime and vancomycin in the ER Past History Past Medical History: diabetes, hypertension, renal failure, stroke, other (Depression, recent MSSA bacteremia) Past Surgical History: No surgical history Social history: alcohol abuse, other (Substance abuse) Family history: no significant family history Medications and Allergies Allergies Allergy/AdvReac Type Severity Reaction Status Date / Time No Known Allergies Allergy Verified 06/19/19 17:53 Home Medications Medication Instructions Recorded Confirmed Last Taken Type RX: FLUoxetine [PROzac] 20 mg PO QDAY #14 capsule 06/23/19 06/21/20 Unknown Rx RX: traZODone [Desyrel] 50 mg PO QHS #10 tablet 06/23/19 06/21/20 Unknown Rx RX: Folic Acid 1 mg PO DAILY #30 tablet 06/25/19 06/21/20 Unknown Rx RX: Nicotine [Habitrol] 14 mg TD DAILY #30 patch 06/25/19 06/21/20 Unknown Rx RX: Thiamine [Vitamin B-1] 100 mg PO QDAY #30 tablet 06/25/19 06/21/20 Unknown Rx RX: Aspirin EC [Halfprin EC] 81 mg PO QDAY #30 tablet. 07/26/19 06/21/20 Unknown Rx RX: levETIRAcetam [Keppra TAB] 750 mg PO BID #60 tablet 07/26/19 06/21/20 Unk nown Rx RX: Furosemide [Lasix TAB] 40 mg PO QDAY #30 tablet 04/28/20 06/21/20 Unknown Rx RX: Famotidine [Pepcid] 20 mg PO BID #60 tablet 07/05/20 Unknown Rx RX: Insulin NPH, Human [NovoLIN N] 5 unit SUB-Q BIDDIAB 30 Days #10 ml 07/05/20 06/21/20 Unknown Rx RX: amLODIPine 10 mg PO QDAY #30 tablet 07/05/20 Unknown Rx RX: carvediloL [Coreg] 12.5 mg PO BID #60 tablet 07/05/20 Unknown Rx RX: hydrALAZINE [Apresoline TAB] 50 mg PO Q8HR #30 tablet 07/06/20 Unknown Rx Active Meds: Active Medications Sodium Chloride (Nacl 0.9% 1000 Ml) 1,000 mls @ 125 mls/hr IV ONCE ONE Stop: 07/18/20 17:28 Review of Systems ROS unobtainable: due to mental status Exam - Constitutional Vitals: Temp Pulse Resp BP Pulse Ox 89.1 F L 54 L 13 109/77 100 07/18/20 08:40 07/18/20 07:30 07/18/20 07:30 07/18/20 07:30 07/18/20 07:30 General appearance: Present: mild distress, well-nourished, obese - EENT Eyes: Present: PERRL, EOM intact - Neck Neck: Present: supple, normal ROM - Respiratory Respiratory effort: normal Respiratory: bilateral: diminished, negative: rales, rhonchi, wheezing - Cardiovascular Rhythm: regular Heart Sounds: Present: S1 & S2 - Extremities Extremities: no ischemia, No edema - Abdominal General gastrointestinal: Present: soft, non-tender, non-distended, normal bowel sounds - Integumentary Integumentary: Present: clear, warm - Musculoskeletal Musculoskeletal: generalized weakness - Psychiatric Psychiatric: other - Neurologic Neurologic: moves all extremities (Confused) HEART Score - HEART Score Troponin: Troponin T 0.057 ng/mL (0.00-0.029) H 07/18/20 08:56 Results - Labs CBC & Chem 7: 07/19/20 06:00 07/19/20 06:00 Labs: Abnormal lab results 07/18/20 07/18/20 07/18/20 Range/Units 08:56 08:56 08:56 WBC 3.5 L (4.5-11.0) K/mm3 RBC 2.51 L (3.65-5.03) M/mm3 Hgb 8.0 L (11.8-15.2) gm/dl Hct 24.5 L (35.5-45.6) % MCV 98 H (84-94) fl RDW 18.3 H (13.2-15.2) % Plt Count 58 L (140-440) K/mm3 [place] % (Auto) 11.1 H (0.0-7.3) % INR 1.18 H (0.87-1.13) Sodium 146 H (137-145) mmol/L Potassium 5.2 H (3.6-5.0) mmol/L Chloride 117.3 H (98-107) mmol/L Carbon Dioxide 21 L (22-30) mmol/L BUN 52 H (9-20) mg/dL Creatinine 3.1 H (0.8-1.3) mg/dL Glucose 118 H (75-100) mg/dL Calcium 8.1 L (8.4-10.2) mg/dL Troponin T 0.057 H (0.00-0.029) ng/mL NT-Pro-B Natriuret Pep (0-900) pg/mL TSH (0.270-4.200) mlU/mL 07/18/20 07/18/20 Range/Units 08:56 08:56 WBC (4.5-11.0) K/mm3 RBC (3.65-5.03) M/mm3 Hgb (11.8-15.2) gm/dl Hct (35.5-45.6) % MCV (84-94) fl RDW (13.2-15.2) % Plt Count (140-440) K/mm3 [place] % (Auto) (0.0-7.3) % INR (0.87-1.13) Sodium (137-145) mmol/L Potassium (3.6-5.0) mmol/L Chloride (98-107) mmol/L Carbon Dioxide (22-30) mmol/L BUN (9-20) mg/dL Creatinine (0.8-1.3) mg/dL Glucose (75-100) mg/dL Calcium (8.4-10.2) mg/dL Troponin T (0.00-0.029) ng/mL NT-Pro-B Natriuret Pep 4777 H (0-900) pg/mL TSH 5.520 H (0.270-4.200) mlU/mL Assessment and Plan --Acute toxic metabolic encephalopathy; Multifactorial, treat the underlying cause Supportive care --Sepsis/SIRS/hypothermia; Warm blankets, treat the underlying sepsis IV antibiotics, follow cultures ID consult if needed --h/o MSSA bacteremia on treatment We will continue Unasyn 2 g every 8 hourly ID recommended total 6 weeks 07/24/2020 --PUI/high suspicion for COVID-19; Isolation precautions, dailey PCR test Inflammatory markers, oxygen titrate O2 sats to more than 90% Home oxygen evaluation discharge --Type 2 diabetes mellitus; Accu-Chek sliding scale coverage ADA diet Long-acting insulin, check HbA1c --Acute on chronic kidney disease3; Gentle hydration, monitor renal function Avoid nephrotoxins, nephrology consulted --Congestive heart failure; Continue antifailure medications Input output monitoring, diuretics Cardiology consult if needed --History of seizure disorder; Seizure precautions, continue Keppra --History of CVA; with residual weakness Fall precautions, PT OT as needed --DVT prophylaxis; Heparin renal dose --Full CODE STATUS --Physical therapy occupational therapy Critical care time 55 minutes Closely monitor the patient and adjust the management as needed The high probability of a clinically significant, sudden or life threatening deterioration of the [multi] system(s) required my full and direct attention, intervention and personal management. The aggregate critical care time was [55] minutes. This time is in addition to time spent performing reported procedures but includes the following: [x] Data Review and interpretation [x] Patient assessment and monitoring of vital signs [x] Documentation [x] Medication orders and management
[2020-07-18] MEDS ORDERED: VANCOMYCIN PHARMACY TO DOSE IV SCH (10:00)
[2020-07-18] MEDS ORDERED: VANCOMYCIN 2,000 MG in SODIUM CHLORIDE 0.9% 500 ML 500 ML IV ONE (10:30)
[2020-07-18 10:59] LABS: Chol/HDL Ratio 2.34 %
--- NOTE | 2020-07-18 11:04 | Consultation ---
History of Present Illness - Reason for Consult acute renal failure, chronic renal failure - History of Present Illness Pleasant 64-year-old -[place] male with a past medical history significant for hypertension, diabetes, cardiomyopathy, hepatitis C, who has a right lower extremity chronic wound, presented to the emergency room department secondary to progressively worsening weakness and fatigue. He is significantly started on examination this morning. Nursing staff was unable to place Ayala secondary to the amount of swelling noted in his penile region. Nephrology is being consulted for acute on chronic kidney injury. Patient was seen on previous hospitalizations by our group secondary to similar presentation of acute on chronic kidney injury the setting of sepsis secondary to previous pneumonia as well as the aforementioned right lower extremity wound. On his last set of labs from his previous hospitalization it was shown that he had staph aureus bacteremia. He was treated with IV antibiotics as appropriate during his previous hospitalization. He has a PICC line in place which may have been from his previous hospitalization. To note during his previous hospitalization he did have an incision and drainage of a right lower extremity abscess. Past History Past Medical History: diabetes, hypertension, hyperlipidemia Past Surgical History: Other (Left leg surgery) Social history: IV drug use Medications and Allergies Allergies Allergy/AdvReac Type Severity Reaction Status Date / Time No Known Allergies Allergy Verified 06/19/19 17:53 Home Medications Medication Instructions Recorded Confirmed Last Taken Type FLUoxetine [PROzac] 20 mg PO QDAY #14 capsule 06/23/19 06/21/20 Unknown Rx traZODone [Desyrel] 50 mg PO QHS #10 tablet 06/23/19 06/21/20 Unknown Rx Folic Acid 1 mg PO DAILY #30 tablet 06/25/19 06/21/20 Unknown Rx Nicotine [Habitrol] 14 mg TD DAILY #30 patch 06/25/19 06/21/20 Unknown Rx Thiamine [Vitamin B-1] 100 mg PO QDAY #30 tablet 06/25/19 06/21/20 Unknown Rx Aspirin EC [Halfprin EC] 81 mg PO QDAY #30 tablet. 07/26/19 06/21/20 Unknown Rx levETIRAcetam [Keppra TAB] 750 mg PO BID #60 tablet 07/26/19 06/21/20 Unknown Rx Furosemide [Lasix TAB] 40 mg PO QDAY #30 tablet 04/28/20 06/21/20 Unknown Rx Famotidine [Pepcid] 20 mg PO BID #60 tablet 07/05/20 Unknown Rx Insulin NPH, Human [NovoLIN N] 5 unit SUB-Q BIDDIAB 30 Days #10 ml 07/05/20 06/21/20 Unknown Rx amLODIPine 10 mg PO QDAY #30 tablet 07/05/20 Unknown Rx carvediloL [Coreg] 12.5 mg PO BID #60 tablet 07/05/20 Unknown Rx hydrALAZINE [Apresoline TAB] 50 mg PO Q8HR #30 tablet 07/06/20 Unknown Rx Active Meds: Active Medications Sodium Chloride (Nacl 0.9% 1000 Ml) 1,000 mls @ 125 mls/hr IV ONCE ONE Stop: 07/18/20 17:28 Last Admin: 07/18/20 10:17 Dose: 125 mls/hr Documented by: Vancomycin HCl 2,000 mg/ (Sodium Chloride) 540 mls @ 250 mls/hr IV ONCE ONE Stop: 07/18/20 12:39 Review of Systems ROS unobtainable: due to mental status Exam - Vital Signs Vital signs: Vital Signs Pulse Resp 53 L 13 07/18/20 07:17 07/18/20 07:17 - General Appearance General appearance: obese, chronically ill EENT: ATNC, PERRL Neck: Present: neck supple Respiratory: Decreased Breath Sounds Heart: regular Gastrointestinal: Present: normal Integumentary: ulcer Neurologic: confused, disoriented Musculoskeletal: Present: other (3+ pitting edema) Results - Lab Results 07/18/20 08:56 07/18/20 08:56 Most recent lab results Calcium 8.1 mg/dL (8.4-10.2) L 07/18/20 08:56 Phosphorus 4.40 mg/dL (2.5-4.5) 07/18/20 08:56 Magnesium 2.10 mg/dL (1.7-2.3) 07/18/20 08:56 Assessment and Plan - Patient Problems (1) Acute on chronic renal failure Current Visit: Yes Status: Acute Qualifiers: Acute renal failure type: unspecified Chronic kidney disease stage: stage 3 (moderate) Chronic kidney disease stage 3 subtype: stage 3a (GFR 45-59) Qualified Code(s): N17.9 - Acute kidney failure, unspecified; N18.31 - Chronic kidney disease, stage 3a Plan to address problem: Patient has likely underlying chronic kidney disease stage IIIb in the setting of hypertension and diabetes. His previous UPC noted on past hospitalization was greater than 2 g. He is significantly lethargic and this may also be secondary to his progressively worsening renal injury. His acute injury at this time is noted in the setting of significant anasarca and volume overload. Is also question of possible underlying sepsis given his right lower extremity wound. He does have a previous history of staph bacteremia noted on his most recent hospitalization. He has been started on IV antibiotics which we need to ensure is dosed appropriate for his renal function. I would avoid standing IV fluids in this patient given his already significant level of anasarca and edema. He needs to have a Ayala catheter placed and if it is difficult for staff to do I would recommend getting a urology consult for Ayala catheter placement. We need to be able to monitor his intake and output and be able to appropriately diurese this patient who is significantly edematous at this time. (2) Anasarca Current Visit: Yes Status: Acute Plan to address problem: Unclear etiology of significant anasarca and edema noted on physical examination. His previous UPC to indicate greater than 2 g of protein with his history of diabetes likely indicating presence of diabetic nephropathy. Would recommend aggressive diuretic therapy at this time to help remove fluid. Will start patient on IV Lasix 60 mg IV twice daily. We will need to have Ayala catheter placed to ensure adequate fluid removal and urine output. (3) Anemia Current Visit: Yes Status: Chronic Qualifiers: Anemia type: unspecified type Qualified Code(s): D64.9 - Anemia, unspecified Plan to address problem: Transfuse to maintain hemoglobin above 7. (4) Hyperkalemia Current Visit: Yes Status: Acute Plan to address problem: With adequate diuresis we should be able to facilitate increase potassium s ecretion. (5) Sepsis Current Visit: Yes Status: Acute Qualifiers: Sepsis type: sepsis due to unspecified organism Sepsis acute organ dysfunction status: with acute organ dysfunction Severe sepsis acute organ dysfunction type: acute renal failure Acute renal failure type: unspecified Severe sepsis shock status: without septic shock Qualified Code(s): A41.9 - Sepsis, unspecified organism; R65.20 - Severe sepsis without septic shock; N17.9 - Acute kidney failure, unspecified Plan to address problem: Blood cultures are pending at this time. Patient has been placed on broad- spectrum antibiotics. Please ensure that antibiotics are dosed appropriate for his decreased renal function. I would avoid standing IV fluids and if needed fo r hemodynamic support would only do pressors. He is being transferred to the IM at present time (6) Hypertensive chronic kidney disease with stage 1 through stage 4 chronic kidney disease, or unspecified chronic kidney disease Current Visit: No Status: Acute Plan to address problem: We will hold off on all blood pressure medication at this time giving his current hemodynamic status. (7) Type 2 diabetes mellitus with diabetic nephropathy Current Visit: No Status: Acute Plan to address problem: Diabetes managed per primary attending.
[2020-07-18 11:12] LABS: C-Reactive Protein 2.1 mg/dL (0.00-1.30)
--- NOTE | 2020-07-18 15:04 | Vascular Lab Report ---
DUPLEX DOPPLER LOWER EXTREMITY VEINS, BILATERAL INDICATION / CLINICAL INFORMATION: Elevated D-dimers/evaluate for DVT. TECHNIQUE: Duplex doppler imaging was performed through the veins of both lower extremities using venous steven rolando and other maneuvers. COMPARISON: None available. FINDINGS: RIGHT COMMON FEMORAL VEIN: Negative. RIGHT FEMORAL VEIN: Negative. RIGHT POPLITEAL VEIN: Negative. RIGHT CALF VEINS: Negative. LEFT COMMON FEMORAL VEIN: Negative. LEFT FEMORAL VEIN: Negative. LEFT POPLITEAL VEIN: Negative. LEFT CALF VEINS: Negative. ADDITIONAL FINDINGS: None. IMPRESSION: 1. No sonographic evidence for DVT in either lower extremity. Signer Name: Felix Santos MD Signed: 07/18/2020 2:59 PM Workstation Name: [id number]
[2020-07-18] MEDS: hydrALAZINE 25 MG TAB PO SCH ×2 (17:06→23:38)
[2020-07-18] MEDS: FUROSEMIDE 20 MG/2 ML INJ IV SCH (17:08)
[2020-07-18] MEDS: INSULIN NPH, HUMAN 100 UNIT/1 ML SUB-Q SCH (17:09)
[2020-07-18] MEDS: FAMOTIDINE 20 MG TAB PO SCH (23:36)
[2020-07-18] MEDS: traZODone 50 MG TAB PO SCH (23:36)
[2020-07-18] MEDS: levETIRAcetam 500 MG/5 ML ORAL LIQD PO SCH (23:36)
[2020-07-18] MEDS: carvediloL 12.5 MG TAB PO SCH (23:37)
[2020-07-19] MEDS ORDERED: VANCOMYCIN PHARMACY TO DOSE IV SCH (05:00)
[2020-07-19] MEDS: FUROSEMIDE 20 MG/2 ML INJ IV SCH (05:03)
[2020-07-19] MEDS: hydrALAZINE 25 MG TAB PO SCH ×3 (05:04→21:57)
[2020-07-19 06:34] LABS: Basophils % (Auto) 0.6 % (0.0-1.8); Eosinophils % (Auto) 0.9 % (0.0-4.3); Hematocrit 23.1 % (35.5-45.6); Hemoglobin 7.5 gm/dl (11.8-15.2); Lymphocytes % (Auto) 25.1 % (13.4-35.0); Mean Corpuscular HGB Conc 32 % (32-34); Mean Corpuscular Volume 99 fl (84-94); Monocytes # (Auto) 0.4 K/mm3 (0.0-0.8); Monocytes % (Auto) 9.4 % (0.0-7.3); Red Blood Count 2.34 M/mm3 (3.65-5.03); Red Cell Distribution Width 18.6 % (13.2-15.2)
[2020-07-19 06:35] LABS: Platelet Count 52 K/mm3 (140-440)
[2020-07-19 06:56] LABS: Albumin 2.2 g/dL (3.9-5); BUN/Creatinine Ratio 15; Bilirubin,Direct 0.2 mg/dL (0-0.2); Blood Urea Nitrogen 52 mg/dL (9-20); Calcium 7.7 mg/dL (8.4-10.2); Hemolysis Index 0
[2020-07-19 07:03] LABS: Alanine Aminotransferase < 5 units/L (7-56)
--- NOTE | 2020-07-19 09:24 | Progress Note ---
Assessment and Plan Assessment and plan: --Acute toxic metabolic encephalopathy; Multifactorial, treat the underlying cause Supportive care --Sepsis/SIRS/hypothermia; Warm blankets, treat the underlying sepsis IV antibiotics, follow cultures ID consult if needed --h/o MSSA bacteremia on treatment We will continue Unasyn 2 g every 8 hourly ID recommended total 6 weeks 07/24/2020 --h/o right calf abscess: s/p surgical procedure/wide excision 06/2020 On long-term antibiotics --PUI/high suspicion for COVID-19; Isolation precautions, dailey PCR test Inflammatory markers, oxygen titrate O2 sats to more than 90% Home oxygen evaluation discharge --Type 2 diabetes mellitus; Accu-Chek sliding scale coverage ADA diet Long-acting insulin, check HbA1c --Acute plan chronic kidney disease3; Gentle hydration, monitor renal function Avoid nephrotoxins, nephrology consulted --Congestive heart failure; Continue antifailure medications Input output monitoring, diuretics Cardiology consult if needed --History of seizure disorder; Seizure precautions, continue Keppra --History of CVA; with residual weakness Fall precautions, PT OT as needed --DVT prophylaxis; Heparin renal dose --Full CODE STATUS --Physical therapy occupational therapy Closely monitor the patient and adjust the management as needed Plan of care reviewed with the patient and his nurse History Interval history: I have seen and examined the patient in IMCU this morning Patient's chart and medications reviewed Patient feels slightly better No new overnight events reported by the nursing Vital signs noted Hospitalist Physical - Constitutional Vitals: Temp Pulse Resp BP Pulse Ox 98.0 F 52 L 13 153/50 99 07/19/20 03:54 07/19/20 06:01 07/19/20 06:01 07/19/20 06:01 07/19/20 06:01 General appearance: Present: no acute distress, well-nourished, obese - EENT Eyes: Present: PERRL, EOM intact - Neck Neck: Present: supple, normal ROM - Respiratory Respiratory effort: normal Respiratory: bilateral: diminished, negative: rales, rhonchi, wheezing - Cardiovascular Rhythm: regular Heart Sounds: Present: S1 & S2 - Extremities Extremities: no ischemia, No edema - Abdominal General gastrointestinal: soft, non-tender, non-distended, normal bowel sounds - Integumentary Integumentary: Present: clear, warm - Psychiatric Psychiatric: appropriate mood/affect, cooperative - Neurologic Neurologic: moves all extremities HEART Score - HEART Score Troponin: Troponin T 0.057 ng/mL (0.00-0.029) H 07/18/20 08:56 Results - Labs CBC & Chem 7: 07/19/20 06:00 07/19/20 06:00 Labs: Laboratory Last Values WBC 3.9 K/mm3 (4.5-11.0) L 07/19/20 06:00 RBC 2.34 M/mm3 (3.65-5.03) L 07/19/20 06:00 Hgb 7.5 gm/dl (11.8-15.2) L 07/19/20 06:00 Hct 23.1 % (35.5-45.6) L 07/19/20 06:00 MCV 99 fl (84-94) H 07/19/20 06:00 MCH 32 pg (28-32) 07/19/20 06:00 MCHC 32 % (32-34) 07/19/20 06:00 RDW 18.6 % (13.2-15.2) H 07/19/20 06:00 Plt Count 52 K/mm3 (140-440) L 07/19/20 06:00 Lymph % (Auto) 25.1 % (13.4-35.0) 07/19/20 06:00 Iron % (Auto) 9.4 % (0.0-7.3) H 07/19/20 06:00 Eos % (Auto) 0.9 % (0.0-4.3) 07/19/20 06:00 Baso % (Auto) 0.6 % (0.0-1.8) 07/19/20 06:00 Lymph # (Auto) 1.0 K/mm3 (1.2-5.4) L 07/19/20 06:00 Iron # (Auto) 0.4 K/mm3 (0.0-0.8) 07/19/20 06:00 Eos # (Auto) 0.0 K/mm3 (0.0-0.4) 07/19/20 06:00 Baso # (Auto) 0.0 K/mm3 (0.0-0.1) 07/19/20 06:00 Seg Neutrophils % 64.0 % (40.0-70.0) 07/19/20 06:00 Seg Neutrophils # 2.5 K/mm3 (1.8-7.7) 07/19/20 06:00 PT 14.8 Sec. (12.2-14.9) 07/18/20 08:56 INR 1.18 (0.87-1.13) H 07/18/20 08:56 APTT 36.4 Sec. (24.2-36.6) 07/18/20 08:56 D-Dimer 1036.46 ng/mlDDU (0-234) H 07/18/20 08:56 Sodium 144 mmol/L (137-145) 07/19/20 06:00 Potassium 5.3 mmol/L (3.6-5.0) H 07/19/20 06:00 Chloride 115.8 mmol/L (98-107) H 07/19/20 06:00 Carbon Dioxide 22 mmol/L (22-30) 07/19/20 06:00 Anion Gap 12 mmol/L 07/19/20 06:00 BUN 52 mg/dL (9-20) H 07/19/20 06:00 Creatinine 3.4 mg/dL (0.8-1.3) H 07/19/20 06:00 Estimated GFR 22 ml/min 07/19/20 06:00 BUN/Creatinine Ratio 15 % 07/19/20 06:00 Glucose 114 mg/dL (75-100) H 07/19/20 06:00 POC Glucose 99 mg/dL (70-105) 07/19/20 07:32 Lactic Acid 0.80 mmol/L (0.7-2.0) 07/18/20 08:56 Calcium 7.7 mg/dL (8.4-10.2) L 07/19/20 06:00 Phosphorus 4.40 mg/dL (2.5-4.5) 07/18/20 08:56 Magnesium 2.10 mg/dL (1.7-2.3) 07/19/20 06:00 Ferritin 198.6 ng/mL (30.0-300.0) 07/18/20 10:36 Total Bilirubin 0.40 mg/dL (0.1-1.2) 07/19/20 06:00 Direct Bilirubin 0.2 mg/dL (0-0.2) 07/19/20 06:00 Indirect Bilirubin 0.2 mg/dL 07/19/20 06:00 AST 77 units/L (5-40) H 07/19/20 06:00 ALT < 5 units/L (7-56) L 07/19/20 06:00 Alkaline Phosphatase 678 units/L (35-129) H 07/19/20 06:00 Ammonia 41.0 umol/L (25-60) 07/18/20 08:56 Lactate Dehydrogenase 212 units/L (91-180) H 07/18/20 10:36 Total Creatine Kinase 108 units/L (55-170) 07/18/20 08:56 Troponin T 0.057 ng/mL (0.00-0.029) H 07/18/20 08:56 C-Reactive Protein 2.10 mg/dL (0.00-1.30) H 07/18/20 10:36 NT-Pro-B Natriuret Pep 4777 pg/mL (0-900) H 07/18/20 08:56 Total Protein 6.6 g/dL (6.3-8.2) 07/19/20 06:00 Albumin 2.2 g/dL (3.9-5) L 07/19/20 06:00 Albumin/Globulin Ratio 0.5 % 07/19/20 06:00 Triglycerides 65 mg/dL (2-149) 07/18/20 08:56 Cholesterol 157 mg/dL (50-199) 07/18/20 08:56 LDL Cholesterol Direct 95 mg/dL (50-130) 07/18/20 08:56 HDL Cholesterol 67 mg/dL (40-59) H 07/18/20 08:56 Cholesterol/HDL Ratio 2.34 % 07/18/20 08:56 Procalcitonin 0.10 ng/mL (<0.15) 07/18/20 10:36 TSH 5.520 mlU/mL (0.270-4.200) H 07/18/20 08:56 Free T4 0.84 ng/dL (0.76-1.46) 07/18/20 08:56 Blood Type A POSITIVE 07/18/20 08:56 Antibody Screen Negative 07/18/20 08:56 Microbiology: Microbiology 07/18/20 09:00 Peripheral/Venous Blood Culture - Preliminary NO GROWTH AFTER 24 HOURS 07/18/20 09:00 Peripheral/Venous Blood Culture - Preliminary Ayala/IV: Voiding Method Condom Catheter Active Medications - Current Medications Current Medications: Generic Name Dose Route Start Last Admin Trade Name Deshawnq PRN Reason Stop Dose Admin Aspirin 81 mg 07/19/20 10:00 Aspirin Ec 81 Mg Tab PO QDAY [facility] Carvedilol 12.5 mg 07/18/20 22:00 07/18/20 23:37 Carvedilol 12.5 Mg Tab PO 12.5 mg BID JODIE Administration Famotidine 20 mg 07/18/20 22:00 07/18/20 23:36 Famotidine 20 Mg Tab PO 20 mg DAILY JODIE Administration Fluoxetine HCl 20 mg 07/19/20 10:00 Fluoxetine 20 Mg Cap PO QDAY [facility] Folic Acid 1 mg 07/19/20 10:00 Folic Acid 1 Mg Tab PO DAILY [facility] Furosemide 60 mg 07/18/20 18:00 07/19/20 05:03 Furosemide 20 Mg/2 Ml Inj IV 60 mg 0600,1800 JODIE Administration Hydralazine HCl 50 mg 07/18/20 14:00 07/19/20 05:04 Hydralazine 25 Mg Tab PO 50 mg Q8HR JODIE Administration Cefazolin Sodium 2 gm/ Sodium 100 mls @ 200 mls/hr 07/18/20 17:00 07/19/20 05:02 Chloride IV 07/24/20 17:29 200 mls/hr Q12H JODIE Administration Protocol Insulin Human NPH 5 unit 07/18/20 17:00 07/18/20 17:09 Insulin Nph, Human 100 Unit/1 Ml SUB-Q Not Given BIDDIAB [facility] Levetiracetam 750 mg 07/18/20 22:00 07/18/20 23:36 Levetiracetam 500 Mg/5 Ml Oral Liqd PO 750 mg BID JODIE Administration Thiamine HCl 100 mg 07/19/20 10:00 Thiamine 100 Mg Tab PO QDAY [facility] Trazodone HCl 50 mg 07/18/20 22:00 07/18/20 23:36 Trazodone 50 Mg Tab PO 50 mg QHS JODIE Administration
[2020-07-19] MEDS ORDERED: CEFEPIME/NS 2 GM/100 ML 2 GM/100 ML BAG IV SCH (10:00)
[2020-07-19] MEDS: levETIRAcetam 500 MG/5 ML ORAL LIQD PO SCH ×2 (11:37→21:59)
[2020-07-19] MEDS: FLUoxetine 20 MG CAP PO SCH (11:38)
[2020-07-19] MEDS: carvediloL 12.5 MG TAB PO SCH ×2 (11:38→21:58)
[2020-07-19] MEDS: ASPIRIN EC 81 MG TAB PO SCH (11:38)
[2020-07-19] MEDS: FOLIC ACID 1 MG TAB PO SCH (11:38)
[2020-07-19] MEDS: FAMOTIDINE 20 MG TAB PO SCH (11:39)
[2020-07-19] MEDS: THIAMINE 100 MG TAB PO SCH (11:39)
[2020-07-19] MEDS: INSULIN NPH, HUMAN 100 UNIT/1 ML SUB-Q SCH ×2 (11:40→16:19)
--- NOTE | 2020-07-19 14:15 | Progress Note ---
Assessment and Plan - Patient Problems (1) Acute on chronic renal failure Current Visit: Yes Status: Acute Qualifiers: Acute renal failure type: unspecified Chronic kidney disease stage: stage 3 (moderate) Chronic kidney disease stage 3 subtype: stage 3a (GFR 45-59) Qualified Code(s): N17.9 - Acute kidney failure, unspecified; N18.31 - Chronic kidney disease, stage 3a Plan to address problem: Patient has likely underlying chronic kidney disease stage IIIb in the setting of hypertension and diabetes. His previous UPC noted on past hospitalization was greater than 2 g. He is significantly lethargic and this may also be secondary to his progressively worsening renal injury. His acute injury at this time is noted in the setting of significant anasarca and volume overload. Is also question of possible underlying sepsis given his right lower extremity wound. He does have a previous history of staph bacteremia noted on his most recent hospitalization. He has been started on IV antibiotics which we need to ensure is dosed appropriate for his renal function. I would avoid standing IV fluids in this patient given his already significant level of anasarca and edema. He needs to have a Jones catheter placed and if it is difficult for staff to do I would recommend getting a urology consult for Jones catheter placement. Will place consult to urology at this kathryn. We need to be able to monitor his intake and output and be able to appropriately diurese this patient who is significantly edematous at this time. (2) Anasarca Current Visit: Yes Status: Acute Plan to address problem: Unclear etiology of significant anasarca and edema noted on physical examination. His previous UPC to indicate greater than 2 g of protein with his history of diabetes likely indicating presence of diabetic nephropathy. Would recommend aggressive diuretic therapy at this time to help remove fluid. We have started patient on IV Lasix 60 mg IV twice daily. We will need to have Jones catheter placed to ensure adequate fluid removal and urine output. (3) Anemia Current Visit: Yes Status: Chronic Qualifiers: Anemia type: unspecified type Qualified Code(s): D64.9 - Anemia, unspecified Plan to address problem: Transfuse to maintain hemoglobin above 7. (4) Hyperkalemia Current Visit: Yes Status: Acute Plan to address problem: With adequate diuresis we should be able to facilitate increase potassium secretion. (5) Sepsis Current Visit: Yes Status: Acute Qualifiers: Sepsis type: sepsis due to unspecified organism Sepsis acute organ dysfunction status: with acute organ dysfunction Severe sepsis acute organ dysfunction type: acute renal failure Acute renal failure type: unspecified Severe sepsis shock status: without septic shock Qualified Code(s): A41.9 - Sepsis, unspecified organism; R65.20 - Severe sepsis without septic shock; N17.9 - Acute kidney failure, unspecified Plan to address problem: Blood cultures are pending at this time. Patient has been placed on broad- spectrum antibiotics. Please ensure that antibiotics are dosed appropriate for his decreased renal function. I would avoid standing IV fluids and if needed for hemodynamic support would only do pressors. (6) Hypertensive chronic kidney disease with stage 1 through stage 4 chronic kidney disease, or unspecified chronic kidney disease Current Visit: No Status: Acute Plan to address problem: We will hold off on all blood pressure medication at this time giving his current hemodynamic status. (7) Type 2 diabetes mellitus with diabetic nephropathy Current Visit: No Status: Acute Plan to address problem: Diabetes managed per primary attending. Subjective Date of service: 07/19/20 Interval history: No acute changes. still with difficulty in placing jones catheter given level of penile/scrotal edema. Objective - Exam Narrative Exam: Not directly examined in order to preserve PPE. - Vital Signs Vital signs: Vital Signs - 12hr 07/19/20 07/19/20 07/19/20 03:01 03:54 04:01 Temperature 98.0 F Pulse Rate 55 L 56 L Respiratory 9 L 14 Rate Blood Pressure 135/68 143/52 O2 Sat by Pulse 96 98 Oximetry 07/19/20 07/19/20 07/19/20 04:47 04:49 05:01 Temperature Pulse Rate 53 L 53 L Respiratory 13 Rate Blood Pressure 137/65 O2 Sat by Pulse 99 98 Oximetry 07/19/20 07/19/20 07/19/20 05:04 06:01 08:00 Temperature 97.4 F L Pulse Rate 54 L 52 L Respiratory 13 Rate Blood Pressure 137/65 153/50 O2 Sat by Pulse 99 Oximetry - Lab 07/19/20 06:00 07/19/20 06:00 Most recent lab results Calcium 7.7 mg/dL (8.4-10.2) L 07/19/20 06:00 Phosphorus 4.40 mg/dL (2.5-4.5) 07/18/20 08:56 Magnesium 2.10 mg/dL (1.7-2.3) 07/19/20 06:00 Medications & Allergies - Medications Allergies/Adverse Reactions: Allergies No Known Allergies Allergy (Verified 06/19/19 17:53) Home Medications: Home Medications Medication Instructions Recorded Confirmed Last Taken Type FLUoxetine [PROzac] 20 mg PO QDAY #14 capsule 06/23/19 06/21/20 Unknown Rx traZODone [Desyrel] 50 mg PO QHS #10 tablet 06/23/19 06/21/20 Unknown Rx Folic Acid 1 mg PO DAILY #30 tablet 06/25/19 06/21/20 Unknown Rx Nicotine [Habitrol] 14 mg TD DAILY #30 patch 06/25/19 06/21/20 Unknown Rx Thiamine [Vitamin B-1] 100 mg PO QDAY #30 tablet 06/25/19 06/21/20 Unknown Rx Aspirin EC [Halfprin EC] 81 mg PO QDAY #30 tablet. 07/26/19 06/21/20 Unknown Rx levETIRAcetam [Keppra TAB] 750 mg PO BID #60 tablet 07/26/19 06/21/20 Unknown Rx Furosemide [Lasix TAB] 40 mg PO QDAY #30 tablet 04/28/20 06/21/20 Unknown Rx Famotidine [Pepcid] 20 mg PO BID #60 tablet 07/05/20 Unknown Rx Insulin NPH, Human [NovoLIN N] 5 unit SUB-Q BIDDIAB 30 Days #10 ml 07/05/20 06/21/20 Unknown Rx amLODIPine 10 mg PO QDAY #30 tablet 07/05/20 Unknown Rx carvediloL [Coreg] 12.5 mg PO BID #60 tablet 07/05/20 Unknown Rx hydrALAZINE [Apresoline TAB] 50 mg PO Q8HR #30 tablet 07/06/20 Unknown Rx Active Medications: Generic Name Dose Route Start Last Admin Trade Name Deshawnq PRN Reason Stop Dose Admin Aspirin 81 mg 07/19/20 10:00 07/19/20 11:38 Aspirin Ec 81 Mg Tab PO 81 mg QDAY JODIE Administration Carvedilol 12.5 mg 07/18/20 22:00 07/19/20 11:38 Carvedilol 12.5 Mg Tab PO 12.5 mg BID JODIE Administration Famotidine 20 mg 07/18/20 22:00 07/19/20 11:39 Famotidine 20 Mg Tab PO 20 mg DAILY JODIE Administration Fluoxetine HCl 20 mg 07/19/20 10:00 07/19/20 11:38 Fluoxetine 20 Mg Cap PO 20 mg QDAY JODIE Administration Folic Acid 1 mg 07/19/20 10:00 07/19/20 11:38 Folic Acid 1 Mg Tab PO 1 mg DAILY JODIE Administration Furosemide 60 mg 07/18/20 18:00 07/19/20 05:03 Furosemide 20 Mg/2 Ml Inj IV 60 mg 0600,1800 JODIE Administration Hydralazine HCl 50 mg 07/18/20 14:00 07/19/20 05:04 Hydralazine 25 Mg Tab PO 50 mg Q8HR JODIE Administration Cefazolin Sodium 2 gm/ Sodium 100 mls @ 200 mls/hr 07/18/20 17:00 07/19/20 05:02 Chloride IV 07/24/20 17:29 200 mls/hr Q12H JODIE Administration Protocol Insulin Human NPH 5 unit 07/18/20 17:00 07/19/20 11:40 Insulin Nph, Human 100 Unit/1 Ml SUB-Q Not Given BIDDIAB JODIE Levetiracetam 750 mg 07/18/20 22:00 07/19/20 11:37 Levetiracetam 500 Mg/5 Ml Oral Liqd PO 750 mg BID JODIE Administration Thiamine HCl 100 mg 07/19/20 10:00 07/19/20 11:39 Thiamine 100 Mg Tab PO 100 mg QDAY JODIE Administration Trazodone HCl 50 mg 07/18/20 22:00 07/18/20 23:36 Trazodone 50 Mg Tab PO 50 mg QHS JODIE Administration
[2020-07-19] MEDS: traZODone 50 MG TAB PO SCH (22:00)
[2020-07-20] MEDS: FUROSEMIDE 20 MG/2 ML INJ IV SCH ×3 (05:57→18:00)
[2020-07-20] MEDS: hydrALAZINE 25 MG TAB PO SCH ×3 (08:18→22:09)
[2020-07-20 08:36] LABS: Basophils % (Auto) 0.1 % (0.0-1.8); Eosinophils % (Auto) 0.7 % (0.0-4.3); Hematocrit 24.6 % (35.5-45.6); Lymphocytes # (Auto) 0.9 K/mm3 (1.2-5.4); Lymphocytes % (Auto) 25.4 % (13.4-35.0); Mean Corpuscular HGB Conc 33 % (32-34); Mean Corpuscular Volume 97 fl (84-94); Monocytes # (Auto) 0.3 K/mm3 (0.0-0.8); Monocytes % (Auto) 9.8 % (0.0-7.3); Red Blood Count 2.54 M/mm3 (3.65-5.03)
--- NOTE | 2020-07-20 08:44 | Progress Note ---
Assessment and Plan Assessment and plan: --Acute toxic metabolic encephalopathy; Multifactorial, treat the underlying cause Supportive care --Sepsis/SIRS/hypothermia; Warm blankets, treat the underlying sepsis IV antibiotics, follow cultures ID consult if needed --h/o MSSA bacteremia on treatment We will continue Unasyn 2 g every 8 hourly ID recommended total 6 weeks 07/24/2020 --h/o right calf abscess: s/p surgical procedure/wide excision 06/2020 On long-term antibiotics --PUI/high suspicion for COVID-19; Isolation precautions, dailey PCR test Inflammatory markers, oxygen titrate O2 sats to more than 90% Home oxygen evaluation discharge --Type 2 diabetes mellitus; Accu-Chek sliding scale coverage ADA diet Long-acting insulin, check HbA1c --Acute plan chronic kidney disease3; Gentle hydration, monitor renal function Avoid nephrotoxins, nephrology consulted --Congestive heart failure; Continue antifailure medications Input output monitoring, diuretics Cardiology consult if needed --History of seizure disorder; Seizure precautions, continue Keppra --History of CVA; with residual weakness Fall precautions, PT OT as needed --DVT prophylaxis; Heparin renal dose --Full CODE STATUS --Physical therapy occupational therapy Closely monitor the patient and adjust the management as needed Plan of care reviewed with the patient and his nurse 07/19/2020; unable to pass Ayala catheter, Consulted urology, continue supportive care, COVID-19 test negative 07/20/2020; urology evaluation recommendation noted and appreciated Ayala catheter was inserted by urology, draining well MSSA bacteremia on long-term antibiotics History Interval history: I have seen and examined the patient at the bedside Patient's chart and medications reviewed Urology evaluation noted and appreciated Patient had Ayala catheter placed No new complaints Vital signs noted Hospitalist Physical - Constitutional Vitals: Temp Pulse Resp BP Pulse Ox 97.1 F L 56 L 17 103/55 100 07/19/20 16:00 07/20/20 08:18 07/20/20 08:00 07/20/20 08:18 07/20/20 06:00 General appearance: Present: mild distress, well-nourished, obese - EENT Eyes: Present: PERRL, EOM intact - Neck Neck: Present: supple, normal ROM - Respiratory Respiratory effort: normal Respiratory: bilateral: diminished, negative: rales, rhonchi, wheezing - Cardiovascular Rhythm: regular Heart Sounds: Present: S1 & S2 - Extremities Extremities: no ischemia, No edema - Abdominal General gastrointestinal: soft, non-tender, non-distended, normal bowel sounds - Integumentary Integumentary: Present: clear, warm - Psychiatric Psychiatric: appropriate mood/affect, cooperative - Neurologic Neurologic: CNII-XII intact, moves all extremities HEART Score - HEART Score Troponin: Troponin T 0.057 ng/mL (0.00-0.029) H 07/18/20 08:56 Results - Labs CBC & Chem 7: 07/20/20 08:25 07/20/20 08:25 Labs: Laboratory Last Values WBC 3.9 K/mm3 (4.5-11.0) L 07/19/20 06:00 RBC 2.34 M/mm3 (3.65-5.03) L 07/19/20 06:00 Hgb 7.5 gm/dl (11.8-15.2) L 07/19/20 06:00 Hct 23.1 % (35.5-45.6) L 07/19/20 06:00 MCV 99 fl (84-94) H 07/19/20 06:00 MCH 32 pg (28-32) 07/19/20 06:00 MCHC 32 % (32-34) 07/19/20 06:00 RDW 18.6 % (13.2-15.2) H 07/19/20 06:00 Plt Count 52 K/mm3 (140-440) L 07/19/20 06:00 Lymph % (Auto) 25.1 % (13.4-35.0) 07/19/20 06:00 [place] % (Auto) 9.8 % (0.0-7.3) H 07/20/20 08:25 Eos % (Auto) 0.7 % (0.0-4.3) 07/20/20 08:25 Baso % (Auto) 0.6 % (0.0-1.8) 07/19/20 06:00 Lymph # (Auto) 1.0 K/mm3 (1.2-5.4) L 07/19/20 06:00 [place] # (Auto) 0.3 K/mm3 (0.0-0.8) 07/20/20 08:25 Eos # (Auto) 0.0 K/mm3 (0.0-0.4) 07/20/20 08:25 Baso # (Auto) 0.0 K/mm3 (0.0-0.1) 07/20/20 08:25 Seg Neutrophils % 64.0 % (40.0-70.0) 07/20/20 08:25 Seg Neutrophils # 2.3 K/mm3 (1.8-7.7) 07/20/20 08:25 PT 14.8 Sec. (12.2-14.9) 07/18/20 08:56 INR 1.18 (0.87-1.13) H 07/18/20 08:56 APTT 36.4 Sec. (24.2-36.6) 07/18/20 08:56 D-Dimer 1036.46 ng/mlDDU (0-234) H 07/18/20 08:56 Sodium 144 mmol/L (137-145) 07/19/20 06:00 Potassium 5.3 mmol/L (3.6-5.0) H 07/19/20 06:00 Chloride 115.8 mmol/L (98-107) H 07/19/20 06:00 Carbon Dioxide 22 mmol/L (22-30) 07/19/20 06:00 Anion Gap 12 mmol/L 07/19/20 06:00 BUN 52 mg/dL (9-20) H 07/19/20 06:00 Creatinine 3.4 mg/dL (0.8-1.3) H 07/19/20 06:00 Estimated GFR 22 ml/min 07/19/20 06:00 BUN/Creatinine Ratio 15 % 07/19/20 06:00 Glucose 114 mg/dL (75-100) H 07/19/20 06:00 POC Glucose 142 mg/dL (70-105) H 07/19/20 21:20 Lactic Acid 0.80 mmol/L (0.7-2.0) 07/18/20 08:56 Calcium 7.7 mg/dL (8.4-10.2) L 07/19/20 06:00 Phosphorus 4.40 mg/dL (2.5-4.5) 07/18/20 08:56 Magnesium 2.10 mg/dL (1.7-2.3) 07/19/20 06:00 Ferritin 198.6 ng/mL (30.0-300.0) 07/18/20 10:36 Total Bilirubin 0.40 mg/dL (0.1-1.2) 07/19/20 06:00 Direct Bilirubin 0.2 mg/dL (0-0.2) 07/19/20 06:00 Indirect Bilirubin 0.2 mg/dL 07/19/20 06:00 AST 77 units/L (5-40) H 07/19/20 06:00 ALT < 5 units/L (7-56) L 07/19/20 06:00 Alkaline Phosphatase 678 units/L (35-129) H 07/19/20 06:00 Ammonia 41.0 umol/L (25-60) 07/18/20 08:56 Lactate Dehydrogenase 212 units/L (91-180) H 07/18/20 10:36 Total Creatine Kinase 108 units/L (55-170) 07/18/20 08:56 Troponin T 0.057 ng/mL (0.00-0.029) H 07/18/20 08:56 C-Reactive Protein 2.10 mg/dL (0.00-1.30) H 07/18/20 10:36 NT-Pro-B Natriuret Pep 4777 pg/mL (0-900) H 07/18/20 08:56 Total Protein 6.6 g/dL (6.3-8.2) 07/19/20 06:00 Albumin 2.2 g/dL (3.9-5) L 07/19/20 06:00 Albumin/Globulin Ratio 0.5 % 07/19/20 06:00 Triglycerides 65 mg/dL (2-149) 07/18/20 08:56 Cholesterol 157 mg/dL (50-199) 07/18/20 08:56 LDL Cholesterol Direct 95 mg/dL (50-130) 07/18/20 08:56 HDL Cholesterol 67 mg/dL (40-59) H 07/18/20 08:56 Cholesterol/HDL Ratio 2.34 % 07/18/20 08:56 Procalcitonin 0.10 ng/mL (<0.15) 07/18/20 10:36 TSH 5.520 mlU/mL (0.270-4.200) H 07/18/20 08:56 Free T4 0.84 ng/dL (0.76-1.46) 07/18/20 08:56 Blood Type A POSITIVE 07/18/20 08:56 Antibody Screen Negative 07/18/20 08:56 Microbiology: Microbiology 07/18/20 09:00 Peripheral/Venous Blood Culture - Preliminary NO GROWTH AFTER 24 HOURS Ayala/IV: Voiding Method Urinal Active Medications - Current Medications Current Medications: Generic Name Dose Route Start Last Admin Trade Name Victorina PRN Reason Stop Dose Admin Aspirin 81 mg 07/19/20 10:00 07/19/20 11:38 Aspirin Ec 81 Mg Tab PO 81 mg QDAY JODIE Administration Carvedilol 12.5 mg 07/18/20 22:00 07/19/20 21:58 Carvedilol 12.5 Mg Tab PO Not Given BID JODIE Famotidine 20 mg 07/18/20 22:00 07/19/20 11:39 Famotidine 20 Mg Tab PO 20 mg DAILY JODIE Administration Fluoxetine HCl 20 mg 07/19/20 10:00 07/19/20 11:38 Fluoxetine 20 Mg Cap PO 20 mg QDAY JODIE Administration Folic Acid 1 mg 07/19/20 10:00 07/19/20 11:38 Folic Acid 1 Mg Tab PO 1 mg DAILY JODIE Administration Furosemide 60 mg 07/18/20 18:00 07/20/20 05:57 Furosemide 20 Mg/2 Ml Inj IV Not Given 0600,1800 [facility] Hydralazine HCl 50 mg 07/18/20 14:00 07/20/20 08:18 Hydralazine 25 Mg Tab PO Not Given Q8HR [facility] Cefazolin Sodium 2 gm/ Sodium 100 mls @ 200 mls/hr 07/18/20 17:00 07/20/20 05:15 Chloride IV 07/24/20 17:29 200 mls/hr Q12H JODIE Administration Protocol Insulin Human NPH 5 unit 07/18/20 17:00 07/19/20 16:19 Insulin Nph, Human 100 Unit/1 Ml SUB-Q Not Given BIDDIAB JODIE Levetiracetam 750 mg 07/18/20 22:00 07/19/20 21:59 Levetiracetam 500 Mg/5 Ml Oral Liqd PO 750 mg BID JODIE Administration Thiamine HCl 100 mg 07/19/20 10:00 07/19/20 11:39 Thiamine 100 Mg Tab PO 100 mg QDAY JODIE Administration Trazodone HCl 50 mg 07/18/20 22:00 07/19/20 22:00 Trazodone 50 Mg Tab PO 50 mg QHS JODIE Administration Nutrition/Malnutrition Assess - Dietary Evaluation Nutrition/Malnutrition Findings: Nutrition Notes Start: 07/19/20 09:53 Freq: Status: Active Protocol: Document 07/19/20 10:52 AL (Rec: 07/19/20 11:02 AL [id number]) Co-Sign 07/19/20 10:52 LP Nutrition Notes 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 Pt Byron score is 16. Unable to enter pt room d/t COVID PUI status. Pt did not answer phone when called x2. Per RN, pt intake depends on his mood. Pt needs feeding assistance and ate 0% of breakfast this morning. Pt diet needs to be changed to Renal/Consistent Carb d/t CKD and high renal labs Percent of energy/protein needs met: 0%/0% Burn Absent Trauma Absent Current % PO Poor (25-49%) Minimum of two criteria No physical signs of malnutrition Fluid Accumulation N/A #1 Nutrition Diagnosis Inadequate energy intake Etiology AMS stroke As Evidenced by Signs and Symptoms Pt ate 0% of breakfast and pt eats depending on mood. Is patient on ventilator? No Is Patient Ambulatory and/or Out of Bed No REE-([facility]-confined to bed) 2330.148 Kcal/Kg value to use for calculation 17 Approximate Energy Requirements Using 1950 kcal/Kg Calculation Used for Recommendations Kcal/kg Additional Notes Protein: 74-84 g (.8-.9 g/kg AdBW-93 kg) Fluid: 6139-8088 ml Nutrition Intervention Change Diet Order: Change diet to Renal/ Consistent Carb. Add Supplement/Snack (indicate name/kcal Nepro daily /protein ) Provides kCal: 425 Provides Protein (gm) 19 Goal #1 Meet 75% of energy and protein needs PO Goal #2 ONS tolerance Anticipated Discharge Needs: Renal/ Consistent Carb Diet Follow-Up By: 07/23/20 Additional Comments F/U for diet change, intakes, renal labs, and ONS tolerance
--- NOTE | 2020-07-20 08:53 | Consultation ---
History of Present Illness - Reason for Consult Consult date: 07/20/20 - History of Present Illness new to our service covid status pending Pleasant 64-year-old -[place] male with a past medical history significant for hypertension, diabetes, cardiomyopathy, hepatitis C, who has a right lower extremity chronic wound, presented to the emergency room department secondary to progressively worsening weakness and fatigue. He is significantly started on examination this morning. Nursing staff was unable to place Jones secondary to the amount of swelling noted in his penile region + penoscrotal edema wire 16F jones a/P penoscrotal edema renal insuff continue jones as needed Past History Past Medical History: diabetes, hypertension, renal failure, stroke, other (Depression, recent MSSA bacteremia) Past Surgical History: No surgical history Social history: alcohol abuse, other (Substance abuse) Family history: no significant family history Medications and Allergies Allergies Allergy/AdvReac Type Severity Reaction Status Date / Time No Known Allergies Allergy Verified 06/19/19 17:53 Home Medications Medication Instructions Recorded Confirmed Last Taken Type FLUoxetine [PROzac] 20 mg PO QDAY #14 capsule 06/23/19 06/21/20 Unknown Rx traZODone [Desyrel] 50 mg PO QHS #10 tablet 06/23/19 06/21/20 Unknown Rx Folic Acid 1 mg PO DAILY #30 tablet 06/25/19 06/21/20 Unknown Rx Nicotine [Habitrol] 14 mg TD DAILY #30 patch 06/25/19 06/21/20 Unknown Rx Thiamine [Vitamin B-1] 100 mg PO QDAY #30 tablet 06/25/19 06/21/20 Unknown Rx Aspirin EC [Halfprin EC] 81 mg PO QDAY #30 tablet. 07/26/19 06/21/20 Unknown Rx levETIRAcetam [Keppra TAB] 750 mg PO BID #60 tablet 07/26/19 06/21/20 Unknown Rx Furosemide [Lasix TAB] 40 mg PO QDAY #30 tablet 04/28/20 06/21/20 Unknown Rx Famotidine [Pepcid] 20 mg PO BID #60 tablet 07/05/20 Unknown Rx Insulin NPH, Human [NovoLIN N] 5 unit SUB-Q BIDDIAB 30 Days #10 ml 07/05/20 06/21/20 Unknown Rx amLODIPine 10 mg PO QDAY #30 tablet 07/05/20 Unknown Rx carvediloL [Coreg] 12.5 mg PO BID #60 tablet 07/05/20 Unknown Rx hydrALAZINE [Apresoline TAB] 50 mg PO Q8HR #30 tablet 07/06/20 Unknown Rx Active Meds: Active Medications Aspirin (Aspirin Ec 81 Mg Tab) 81 mg PO QDAY [facility] Last Admin: 07/19/20 11:38 Dose: 81 mg Documented by: Carvedilol (Carvedilol 12.5 Mg Tab) 12.5 mg PO BID [facility] Last Admin: 07/19/20 21:58 Dose: Not Given Documented by: Famotidine (Famotidine 20 Mg Tab) 20 mg PO DAILY [facility] Last Admin: 07/19/20 11:39 Dose: 20 mg Documented by: Fluoxetine HCl (Fluoxetine 20 Mg Cap) 20 mg PO QDAY [facility] Last Admin: 07/19/20 11:38 Dose: 20 mg Documented by: Folic Acid (Folic Acid 1 Mg Tab) 1 mg PO DAILY [facility] Last Admin: 07/19/20 11:38 Dose: 1 mg Documented by: Furosemide (Furosemide 20 Mg/2 Ml Inj) 60 mg IV 0600,1800 [facility] Last Admin: 07/20/20 05:57 Dose: Not Given Documented by: Hydralazine HCl (Hydralazine 25 Mg Tab) 50 mg PO Q8HR [facility] Last Admin: 07/20/20 08:18 Dose: Not Given Documented by: Cefazolin Sodium 2 gm/ Sodium (Chloride) 100 mls @ 200 mls/hr IV Q12H [facility]; Protocol Stop: 07/24/20 17:29 Last Admin: 07/20/20 05:15 Dose: 200 mls/hr Documented by: Insulin Human NPH (Insulin Nph, Human 100 Unit/1 Ml) 5 unit SUB-Q BIDDIAB [facility] Last Admin: 07/19/20 16:19 Dose: Not Given Documented by: Levetiracetam (Levetiracetam 500 Mg/5 Ml Oral Liqd) 750 mg PO BID [facility] Last Admin: 07/19/20 21:59 Dose: 750 mg Documented by: Thiamine HCl (Thiamine 100 Mg Tab) 100 mg PO QDAY [facility] Last Admin: 07/19/20 11:39 Dose: 100 mg Documented by: Trazodone HCl (Trazodone 50 Mg Tab) 50 mg PO QHS [facility] Last Admin: 07/19/20 22:00 Dose: 50 mg Documented by: Exam - Constitutional Vitals: Temp Pulse Resp BP Pulse Ox 97.1 F L 56 L 17 103/55 100 07/19/20 16:00 07/20/20 08:18 07/20/20 08:00 07/20/20 08:18 07/20/20 06:00 Results - Labs CBC & Chem 7: 07/19/20 06:00 07/19/20 06:00 Labs: Abnormal lab results 07/19/20 07/19/20 07/20/20 Range/Units 16:26 21:20 08:25 Alexander % (Auto) 9.8 H (0.0-7.3) % POC Glucose 123 H 142 H (70-105) mg/dL
[2020-07-20 09:11] LABS: Platelet Count 47 K/mm3 (140-440)
[2020-07-20 09:17] LABS: Calcium 7.9 mg/dL (8.4-10.2)
[2020-07-20] MEDS: carvediloL 12.5 MG TAB PO SCH ×2 (10:00→22:10)
[2020-07-20] MEDS: INSULIN NPH, HUMAN 100 UNIT/1 ML SUB-Q SCH ×2 (10:55→16:45)
[2020-07-20] MEDS: FOLIC ACID 1 MG TAB PO SCH (10:56)
[2020-07-20] MEDS: THIAMINE 100 MG TAB PO SCH (10:57)
[2020-07-20] MEDS: levETIRAcetam 500 MG/5 ML ORAL LIQD PO SCH ×2 (10:57→22:11)
[2020-07-20] MEDS: ASPIRIN EC 81 MG TAB PO SCH (10:57)
[2020-07-20] MEDS: FAMOTIDINE 20 MG TAB PO SCH (10:57)
[2020-07-20] MEDS: FLUoxetine 20 MG CAP PO SCH (10:57)
[2020-07-20] MEDS ORDERED: LIDOCAINE 2% UROJECT 10 ML JELLY ONE (13:00)
--- NOTE | 2020-07-20 13:43 | Progress Note ---
Assessment and Plan - Patient Problems (1) Acute on chronic renal failure Current Visit: Yes Status: Acute Qualifiers: Acute renal failure type: unspecified Chronic kidney disease stage: stage 3 (moderate) Chronic kidney disease stage 3 subtype: stage 3a (GFR 45-59) Qualified Code(s): N17.9 - Acute kidney failure, unspecified; N18.31 - Chronic kidney disease, stage 3a Plan to address problem: Patient has likely underlying chronic kidney disease stage IIIb in the setting of hypertension and diabetes. His previous UPC noted on past hospitalization was greater than 2 g. He is significantly lethargic and this may also be secondary to his progressively worsening renal injury. His acute injury at this time is noted in the setting of significant anasarca and volume overload. Is also question of possible underlying sepsis given his right lower extremity wound. He does have a previous history of staph bacteremia noted on his most recent hospitalization. He has been started on IV antibiotics which we need to ensure is dosed appropriate for his renal function. I would avoid standing IV fluids in this patient given his already significant level of anasarca and edema. He needs to have a Jones catheter placed and if it is difficult for staff to do I would recommend getting a urology consult for Jones catheter placement. Will place consult to urology at this kathryn. We need to be able to monitor his intake and output and be able to appropriately diurese this patient who is significantly edematous at this time. Patient had jones catheter placed and we will monitor urine output post jones placement. (2) Anasarca Current Visit: Yes Status: Acute Plan to address problem: Unclear etiology of significant anasarca and edema noted on physical examination. His previous UPC to indicate greater than 2 g of protein with his history of diabetes likely indicating presence of diabetic nephropathy. Would recommend aggressive diuretic therapy at this time to help remove fluid. We have started patient on IV Lasix 60 mg IV twice daily. We had Jones catheter placed this am by urology to ensure adequate fluid removal and urine output. (3) Anemia Current Visit: Yes Status: Chronic Qualifiers: Anemia type: unspecified type Qualified Code(s): D64.9 - Anemia, unspecified Plan to address problem: Transfuse to maintain hemoglobin above 7. (4) Hyperkalemia Current Visit: Yes Status: Acute Plan to address problem: With adequate diuresis we should be able to facilitate increase potassium secretion. (5) Sepsis Current Visit: Yes Status: Acute Qualifiers: Sepsis type: sepsis due to unspecified organism Sepsis acute organ dysfunction status: with acute organ dysfunction Severe sepsis acute organ dysfunction type: acute renal failure Acute renal failure type: unspecified Severe sepsis shock status: without septic shock Qualified Code(s): A41.9 - Sepsis, unspecified organism; R65.20 - Severe sepsis without septic shock; N17.9 - Acute kidney failure, unspecified Plan to address problem: Blood cultures are pending at this time. Patient has been placed on broad- spectrum antibiotics. Please ensure that antibiotics are dosed appropriate for his decreased renal function. I would avoid standing IV fluids and if needed for hemodynamic support would only do pressors. (6) Hypertensive chronic kidney disease with stage 1 through stage 4 chronic kidney disease, or unspecified chronic kidney disease Current Visit: No Status: Acute Plan to address problem: We will hold off on all blood pressure medication at this time giving his current hemodynamic status. (7) Type 2 diabetes mellitus with diabetic nephropathy Current Visit: No Status: Acute Plan to address problem: Diabetes managed per primary attending. Subjective Date of service: 07/20/20 Interval history: had jones placed this am by urology. Renal function labs noted. Objective - Vital Signs Vital signs: Vital Signs - 12hr 07/20/20 07/20/20 07/20/20 02:02 03:00 04:00 Temperature Pulse Rate 54 L 54 L 56 L Pulse Rate [ 55 L From Monitor] Respiratory 12 18 14 Rate Blood Pressure 103/65 105/64 105/64 O2 Sat by Pulse 80 L Oximetry 07/20/20 07/20/20 07/20/20 05:00 06:00 07:00 Temperature Pulse Rate 55 L 53 L Pulse Rate [ From Monitor] Respiratory 19 13 Rate Blood Pressure 101/74 120/72 113/63 O2 Sat by Pulse 99 100 Oximetry 07/20/20 07/20/20 07/20/20 08:00 08:18 12:00 Temperature 97.5 F L 97.1 F L Pulse Rate 54 L 56 L Pulse Rate [ From Monitor] Respiratory 17 Rate Blood Pressure 113/63 103/55 O2 Sat by Pulse Oximetry - General Appearance General appearance: obese, chronically ill EENT: ATNC Neck: no JVD Respiratory: Present: Clear to Ascultation Cardiology: regular Gastrointestinal: normal Integumentary: rash Neurologic: disoriented Musculoskeletal: deferred - Lab 07/20/20 08:25 07/20/20 08:25 Most recent lab results Calcium 7.9 mg/dL (8.4-10.2) L 07/20/20 08:25 Phosphorus 4.40 mg/dL (2.5-4.5) 07/18/20 08:56 Magnesium 2.20 mg/dL (1.7-2.3) 07/20/20 08:25 - Allied health notes Allied health notes reviewed: nursing Medications & Allergies - Medications Allergies/Adverse Reactions: Allergies No Known Allergies Allergy (Verified 06/19/19 17:53) Home Medications: Home Medications Medication Instructions Recorded Confirmed Last Taken Type FLUoxetine [PROzac] 20 mg PO QDAY #14 capsule 06/23/19 06/21/20 Unknown Rx traZODone [Desyrel] 50 mg PO QHS #10 tablet 06/23/19 06/21/20 Unknown Rx Folic Acid 1 mg PO DAILY #30 tablet 06/25/19 06/21/20 Unknown Rx Nicotine [Habitrol] 14 mg TD DAILY #30 patch 06/25/19 06/21/20 Unknown Rx Thiamine [Vitamin B-1] 100 mg PO QDAY #30 tablet 06/25/19 06/21/20 Unknown Rx Aspirin EC [Halfprin EC] 81 mg PO QDAY #30 tablet. 07/26/19 06/21/20 Unknown Rx levETIRAcetam [Keppra TAB] 750 mg PO BID #60 tablet 07/26/19 06/21/20 Unknown Rx Furosemide [Lasix TAB] 40 mg PO QDAY #30 tablet 04/28/20 06/21/20 Unknown Rx Famotidine [Pepcid] 20 mg PO BID #60 tablet 07/05/20 Unknown Rx Insulin NPH, Human [NovoLIN N] 5 unit SUB-Q BIDDIAB 30 Days #10 ml 07/05/20 06/21/20 Unknown Rx amLODIPine 10 mg PO QDAY #30 tablet 07/05/20 Unknown Rx carvediloL [Coreg] 12.5 mg PO BID #60 tablet 07/05/20 Unknown Rx hydrALAZINE [Apresoline TAB] 50 mg PO Q8HR #30 tablet 07/06/20 Unknown Rx Active Medications: Generic Name Dose Route Start Last Admin Trade Name Victorina PRN Reason Stop Dose Admin Aspirin 81 mg 07/19/20 10:00 07/20/20 10:57 Aspirin Ec 81 Mg Tab PO 81 mg QDAY JODIE Administration Carvedilol 12.5 mg 07/18/20 22:00 07/20/20 10:00 Carvedilol 12.5 Mg Tab PO 12.5 mg BID JODIE Administration Famotidine 20 mg 07/18/20 22:00 07/20/20 10:57 Famotidine 20 Mg Tab PO 20 mg DAILY JODIE Administration Fluoxetine HCl 20 mg 07/19/20 10:00 07/20/20 10:57 Fluoxetine 20 Mg Cap PO 20 mg QDAY JODIE Administration Folic Acid 1 mg 07/19/20 10:00 07/20/20 10:56 Folic Acid 1 Mg Tab PO 1 mg DAILY JODIE Administration Furosemide 60 mg 07/18/20 18:00 07/20/20 05:57 Furosemide 20 Mg/2 Ml Inj IV Not Given 0600,1800 [facility] Hydralazine HCl 50 mg 07/18/20 14:00 07/20/20 08:18 Hydralazine 25 Mg Tab PO Not Given Q8HR JODIE Cefazolin Sodium 2 gm/ Sodium 100 mls @ 200 mls/hr 07/18/20 17:00 07/20/20 05:15 Chloride IV 07/24/20 17:29 200 mls/hr Q12H JODIE Administration Protocol Vancomycin HCl 1,750 mg/ 535 mls @ 333.333 mls/hr 07/21/20 14:00 Sodium Chloride IV 07/21/20 15:36 ONCE ONE Insulin Human NPH 5 unit 07/18/20 17:00 07/20/20 10:55 Insulin Nph, Human 100 Unit/1 Ml SUB-Q Not Given BIDDIAB JODIE Levetiracetam 750 mg 07/18/20 22:00 07/20/20 10:57 Levetiracetam 500 Mg/5 Ml Oral Liqd PO 750 mg BID JODIE Administration Thiamine HCl 100 mg 07/19/20 10:00 07/20/20 10:57 Thiamine 100 Mg Tab PO 100 mg QDAY JODIE Administration Trazodone HCl 50 mg 07/18/20 22:00 07/19/20 22:00 Trazodone 50 Mg Tab PO 50 mg QHS JODIE Administration
[2020-07-20] MEDS: traZODone 50 MG TAB PO SCH (22:11)
[2020-07-21] MEDS: hydrALAZINE 25 MG TAB PO SCH ×3 (05:15→21:50)
[2020-07-21] MEDS: FUROSEMIDE 20 MG/2 ML INJ IV SCH (05:16)
--- NOTE | 2020-07-21 07:50 | Progress Note ---
Assessment and Plan - Patient Problems (1) Acute on chronic renal failure Current Visit: Yes Status: Acute Qualifiers: Acute renal failure type: unspecified Chronic kidney disease stage: stage 3 (moderate) Chronic kidney disease stage 3 subtype: stage 3a (GFR 45-59) Qualified Code(s): N17.9 - Acute kidney failure, unspecified; N18.31 - Chronic kidney disease, stage 3a Plan to address problem: Patient has likely underlying chronic kidney disease stage IIIb in the setting of hypertension and diabetes. His previous Urine Pr/Cr ratio was greater than 2 g. His acute injury at this time is noted in the setting of significant anasarca and volume overload. Is also question of possible underlying sepsis given his right lower extremity wound. He does have a previous history of staph bacteremia noted on his most recent hospitalization. He has been started on IV antibiotics which we need to ensure is dosed appropriate for his renal function. I would avoid standing IV fluids in this patient given his already significant level of anasarca and edema. s/p jones placement for strict intake and output Cont IV diuresis with IV lasix, will add diuril to achieve net negative fluid balance (2) Anasarca Current Visit: Yes Status: Acute Plan to address problem: Unclear etiology of significant anasarca and edema noted on physical examina tion. His previous UPC to indicate greater than 2 g of protein with his history of diabetes likely indicating presence of diabetic nephropathy. Would recommend aggressive diuretic therapy at this time to help remove fluid. We have started patient on IV Lasix 60 mg IV twice daily, added diuril (3) Anemia Current Visit: Yes Status: Chronic Qualifiers: Anemia type: unspecified type Qualified Code(s): D64.9 - Anemia, unspecified Plan to address problem: Transfuse to maintain hemoglobin above 7. (4) Hyperkalemia Current Visit: Yes Status: Acute Plan to address problem: With adequate diuresis we should be able to facilitate increase kaliuresis (5) Hypertensive chronic kidney disease with stage 1 through stage 4 chronic kidney disease, or unspecified chronic kidney disease Current Visit: No Status: Acute Plan to address problem: We will hold off on blood pressure medication at this time, except diuretics, giving his current hemodynamic status. (6) Sepsis Current Visit: Yes Status: Acute Qualifiers: Sepsis type: sepsis due to unspecified organism Sepsis acute organ dysfunction status: with acute organ dysfunction Severe sepsis acute organ dysfunction type: acute renal failure Acute renal failure type: unspecified Severe sepsis shock status: without septic shock Qualified Code(s): A41.9 - Sepsis, unspecified organism; R65.20 - Severe sepsis without septic shock; N17.9 - Acute kidney failure, unspecified Plan to address problem: Blood cultures are pending at this time. Patient has been placed on broad- spectrum antibiotics. Please ensure that antibiotics are dosed appropriate for his decreased renal function. Recommend to avoid standing IV fluids and if nee ded for hemodynamic support would only do pressors. (7) Type 2 diabetes mellitus with diabetic nephropathy Current Visit: No Status: Acute Plan to address problem: : Diabetes managed per primary attending. Subjective Date of service: 07/21/20 Principal diagnosis: RACQUEL Interval history: Pt awake, agitated on 2 points restraints. Objective - Vital Signs Vital signs: Vital Signs - 12hr 07/20/20 07/20/20 07/20/20 20:00 21:00 22:00 Pulse Rate 49 L 50 L Pulse Rate [ 48 L From Monitor] Respiratory 14 Rate Blood Pressure 116/78 116/74 116/74 O2 Sat by Pulse 100 89 Oximetry 07/20/20 07/20/20 07/20/20 22:09 22:10 23:00 Pulse Rate 50 L 51 L 48 L Pulse Rate [ From Monitor] Respiratory 14 Rate Blood Pressure 118/69 118/69 118/69 O2 Sat by Pulse 97 Oximetry 07/21/20 07/21/20 07/21/20 00:00 01:00 02:00 Pulse Rate 48 L Pulse Rate [ 47 L From Monitor] Respiratory 14 Rate Blood Pressure 118/69 127/71 127/70 O2 Sat by Pulse 96 98 100 Oximetry 07/21/20 07/21/20 07/21/20 03:00 04:00 05:00 Pulse Rate 63 46 L 44 L Pulse Rate [ 45 L From Monitor] Respiratory 19 5 L 7 L Rate Blood Pressure 119/68 121/74 109/52 O2 Sat by Pulse 100 98 99 Oximetry 07/21/20 07/21/20 07/21/20 05:15 06:00 07:05 Pulse Rate 45 L 46 L Pulse Rate [ From Monitor] Respiratory Rate Blood Pressure 100/62 100/62 100/62 O2 Sat by Pulse 60 L Oximetry - General Appearance General appearance: well-developed, well-nourished, appears stated age EENT: ATNC, PERRL, mucous membranes moist Neck: no JVD Respiratory: Present: Clear to Ascultation Cardiology: regular, S1S2 Gastrointestinal: normoactive bowel sounds Integumentary: hyperpigmentation, chronic venous stasis, hyperkeratosis, other (+ edema b/l LE ) Neurologic: no focal deficit, strength 5/5 - Lab 07/20/20 08:25 07/20/20 08:25 Most recent lab results Calcium 7.9 mg/dL (8.4-10.2) L 07/20/20 08:25 Phosphorus 4.40 mg/dL (2.5-4.5) 07/18/20 08:56 Magnesium 2.20 mg/dL (1.7-2.3) 07/20/20 08:25 Medications & Allergies - Medications Allergies/Adverse Reactions: Allergies No Known Allergies Allergy (Verified 06/19/19 17:53) Home Medications: Home Medications Medication Instructions Recorded Confirmed Last Taken Type FLUoxetine [PROzac] 20 mg PO QDAY #14 capsule 06/23/19 06/21/20 Unknown Rx traZODone [Desyrel] 50 mg PO QHS #10 tablet 06/23/19 06/21/20 Unknown Rx Folic Acid 1 mg PO DAILY #30 tablet 06/25/19 06/21/20 Unknown Rx Nicotine [Habitrol] 14 mg TD DAILY #30 patch 06/25/19 06/21/20 Unknown Rx Thiamine [Vitamin B-1] 100 mg PO QDAY #30 tablet 06/25/19 06/21/20 Unknown Rx Aspirin EC [Halfprin EC] 81 mg PO QDAY #30 tablet. 07/26/19 06/21/20 Unknown Rx levETIRAcetam [Keppra TAB] 750 mg PO BID #60 tablet 07/26/19 06/21/20 Unknown Rx Furosemide [Lasix TAB] 40 mg PO QDAY #30 tablet 04/28/20 06/21/20 Unknown Rx Famotidine [Pepcid] 20 mg PO BID #60 tablet 07/05/20 Unknown Rx Insulin NPH, Human [NovoLIN N] 5 unit SUB-Q BIDDIAB 30 Days #10 ml 07/05/20 06/21/20 Unknown Rx amLODIPine 10 mg PO QDAY #30 tablet 07/05/20 Unknown Rx carvediloL [Coreg] 12.5 mg PO BID #60 tablet 07/05/20 Unknown Rx hydrALAZINE [Apresoline TAB] 50 mg PO Q8HR #30 tablet 07/06/20 Unknown Rx Active Medications: Generic Name Dose Route Start Last Admin Trade Name Victorina PRN Reason Stop Dose Admin Aspirin 81 mg 07/19/20 10:00 07/20/20 10:57 Aspirin Ec 81 Mg Tab PO 81 mg QDAY JODIE Administration Carvedilol 12.5 mg 07/18/20 22:00 07/20/20 22:10 Carvedilol 12.5 Mg Tab PO 12.5 mg BID JODIE Administration Famotidine 20 mg 07/18/20 22:00 07/20/20 10:57 Famotidine 20 Mg Tab PO 20 mg DAILY JODIE Administration Fluoxetine HCl 20 mg 07/19/20 10:00 07/20/20 10:57 Fluoxetine 20 Mg Cap PO 20 mg QDAY JODIE Administration Folic Acid 1 mg 07/19/20 10:00 07/20/20 10:56 Folic Acid 1 Mg Tab PO 1 mg DAILY JODIE Administration Furosemide 60 mg 07/18/20 18:00 07/21/20 05:16 Furosemide 20 Mg/2 Ml Inj IV 60 mg 0600,1800 JODIE Administration Hydralazine HCl 50 mg 07/18/20 14:00 07/21/20 05:15 Hydralazine 25 Mg Tab PO Not Given Q8HR JODIE Cefazolin Sodium 2 gm/ Sodium 100 mls @ 200 mls/hr 07/18/20 17:00 07/21/20 04:45 Chloride IV 07/24/20 17:29 200 mls/hr Q12H JODIE Administration Protocol Vancomycin HCl 1,750 mg/ 535 mls @ 333.333 mls/hr 07/21/20 14:00 Sodium Chloride IV 07/21/20 15:36 ONCE ONE Levetiracetam 750 mg 07/18/20 22:00 07/20/20 22:11 Levetiracetam 500 Mg/5 Ml Oral Liqd PO 750 mg BID JODIE Administration Thiamine HCl 100 mg 07/19/20 10:00 07/20/20 10:57 Thiamine 100 Mg Tab PO 100 mg QDAY JODIE Administration Trazodone HCl 50 mg 07/18/20 22:00 07/20/20 22:11 Trazodone 50 Mg Tab PO 50 mg QHS JODIE Administration
[2020-07-21] MEDS: carvediloL 12.5 MG TAB PO SCH ×2 (09:49→21:50)
[2020-07-21] MEDS: FLUoxetine 20 MG CAP PO SCH (09:57)
[2020-07-21] MEDS: levETIRAcetam 500 MG/5 ML ORAL LIQD PO SCH ×2 (09:59→21:32)
[2020-07-21] MEDS: FOLIC ACID 1 MG TAB PO SCH (09:59)
[2020-07-21] MEDS: THIAMINE 100 MG TAB PO SCH (10:00)
[2020-07-21] MEDS: FAMOTIDINE 20 MG TAB PO SCH (10:00)
[2020-07-21] MEDS ORDERED: CHLOROTHIAZIDE 500 MG VIAL IV SCH (10:00)
[2020-07-21] MEDS: ASPIRIN EC 81 MG TAB PO SCH (10:03)
[2020-07-21] MEDS ORDERED: WATER FOR INJ Sterile (PF) 10 ML ONE (10:10)
--- NOTE | 2020-07-21 10:26 | Progress Note ---
Assessment and Plan Assessment and plan: --Acute toxic metabolic encephalopathy; Multifactorial, treat the underlying cause Patient is more lethargic today Check CT head without contrast --Sepsis/SIRS/hypothermia; Warm blankets, treat the underlying sepsis IV antibiotics, follow cultures ID consult if needed --Persistent bradycardia Heart rate in 40s to 50s --h/o MSSA bacteremia on treatment We will continue Unasyn 2 g every 8 hourly ID recommended total 6 weeks 07/24/2020 --h/o right calf abscess: s/p surgical procedure/wide excision 06/2020 On long-term antibiotics --PUI/COVID-19 test negative Supportive care --Type 2 diabetes mellitus; Accu-Chek sliding scale coverage ADA diet Long-acting insulin, check HbA1c --Acute plan chronic kidney disease3; Gentle hydration, monitor renal function Avoid nephrotoxins, nephrology consulted --Congestive heart failure; Continue antifailure medications Input output monitoring, diuretics Cardiology consult if needed --History of seizure disorder; Seizure precautions, continue Keppra --History of CVA; with residual weakness Fall precautions, PT OT as needed --DVT prophylaxis; Heparin renal dose --Full CODE STATUS --Physical therapy occupational therapy Closely monitor the patient and adjust the management as needed Plan of care reviewed with the patient and his nurse Patient is severely lethargic, CT scan negative We will closely monitor, has severe sepsis, hypothermia, bradycardia, altered level of consciousness If patient is unable to protect his airway, patient may need intubation. We will inform patient's family of patient's critical condition and poor prognosis Tried to call contact Amee Corcoran #[phone] to speak with patient's niece who is next of kin per records Unable to reach, voicemail is of the patient Jd Albert. 07/19/2020; unable to pass Ayala catheter, Consulted urology, continue supportive care, COVID-19 test negative 07/20/2020; urology evaluation recommendation noted and appreciated Ayala catheter was inserted by urology, draining well MSSA bacteremia on long-term antibiotics 07/21/2020; patient is severely lethargic CT head without contrast, no acute abnormality Patient is afebrile History Interval history: I have seen and examined the patient at the bedside Patient is more lethargic today responding only to very deep stimuli Mild bradycardia patient has been having chronic bradycardia heart rate in 40s to 50s Afebrile, hypothermia ,blood pressures in the lower range Worsening renal function Vital signs noted Hospitalist Physical - Constitutional Vitals: Temp Pulse Resp BP Pulse Ox 97.1 F L 43 L 7 L 100/62 60 L 07/20/20 12:00 07/21/20 09:49 07/21/20 05:00 07/21/20 07:05 07/21/20 07:05 General appearance: Present: mild distress, well-nourished, obese, other (Leth argic) - EENT Eyes: Present: PERRL, EOM intact - Neck Neck: Present: supple, normal ROM - Respiratory Respiratory effort: normal Respiratory: bilateral: diminished, rhonchi, negative: rales, wheezing - Cardiovascular Rhythm: regular Heart Sounds: Present: S1 & S2 (Bradycardia) - Extremities Extremities: no ischemia, abnormal (Multiple decubitus ulcers) Extremity abnormal: edema - Abdominal General gastrointestinal: soft, non-tender, non-distended, normal bowel sounds - Integumentary Integumentary: Present: clear, warm - Psychiatric Psychiatric: appropriate mood/affect, cooperative - Neurologic Neurologic: CNII-XII intact, moves all extremities HEART Score - HEART Score Troponin: Troponin T 0.057 ng/mL (0.00-0.029) H 07/18/20 08:56 Results - Labs CBC & Chem 7: 07/20/20 08:25 07/21/20 10:31 Labs: Laboratory Last Values WBC 3.6 K/mm3 (4.5-11.0) L 07/20/20 08:25 RBC 2.54 M/mm3 (3.65-5.03) L 07/20/20 08:25 Hgb 8.0 gm/dl (11.8-15.2) L 07/20/20 08:25 Hct 24.6 % (35.5-45.6) L 07/20/20 08:25 MCV 97 fl (84-94) H 07/20/20 08:25 MCH 32 pg (28-32) 07/20/20 08:25 MCHC 33 % (32-34) 07/20/20 08:25 RDW 18.0 % (13.2-15.2) H 07/20/20 08:25 Plt Count 47 K/mm3 (140-440) L 07/20/20 08:25 Lymph % (Auto) 25.4 % (13.4-35.0) 07/20/20 08:25 [place] % (Auto) 9.8 % (0.0-7.3) H 07/20/20 08:25 Eos % (Auto) 0.7 % (0.0-4.3) 07/20/20 08:25 Baso % (Auto) 0.1 % (0.0-1.8) 07/20/20 08:25 Lymph # (Auto) 0.9 K/mm3 (1.2-5.4) L 07/20/20 08:25 [place] # (Auto) 0.3 K/mm3 (0.0-0.8) 07/20/20 08:25 Eos # (Auto) 0.0 K/mm3 (0.0-0.4) 07/20/20 08:25 Baso # (Auto) 0.0 K/mm3 (0.0-0.1) 07/20/20 08:25 Seg Neutrophils % 64.0 % (40.0-70.0) 07/20/20 08:25 Seg Neutrophils # 2.3 K/mm3 (1.8-7.7) 07/20/20 08:25 PT 14.8 Sec. (12.2-14.9) 07/18/20 08:56 INR 1.18 (0.87-1.13) H 07/18/20 08:56 APTT 36.4 Sec. (24.2-36.6) 07/18/20 08:56 D-Dimer 1036.46 ng/mlDDU (0-234) H 07/18/20 08:56 Sodium 145 mmol/L (137-145) 07/20/20 08:25 Potassium 5.4 mmol/L (3.6-5.0) H 07/20/20 08:25 Chloride 115.8 mmol/L (98-107) H 07/20/20 08:25 Carbon Dioxide 24 mmol/L (22-30) 07/20/20 08:25 Anion Gap 11 mmol/L 07/20/20 08:25 BUN 56 mg/dL (9-20) H 07/20/20 08:25 Creatinine 3.8 mg/dL (0.8-1.3) H 07/20/20 08:25 Estimated GFR 20 ml/min 07/20/20 08:25 BUN/Creatinine Ratio 15 % 07/20/20 08:25 Glucose 110 mg/dL (75-100) H 07/20/20 08:25 POC Glucose 175 mg/dL (70-105) H 07/20/20 21:27 Lactic Acid 0.80 mmol/L (0.7-2.0) 07/18/20 08:56 Calcium 7.9 mg/dL (8.4-10.2) L 07/20/20 08:25 Phosphorus 4.40 mg/dL (2.5-4.5) 07/18/20 08:56 Magnesium 2.20 mg/dL (1.7-2.3) 07/20/20 08:25 Ferritin 198.6 ng/mL (30.0-300.0) 07/18/20 10:36 Total Bilirubin 0.40 mg/dL (0.1-1.2) 07/19/20 06:00 Direct Bilirubin 0.2 mg/dL (0-0.2) 07/19/20 06:00 Indirect Bilirubin 0.2 mg/dL 07/19/20 06:00 AST 77 units/L (5-40) H 07/19/20 06:00 ALT < 5 units/L (7-56) L 07/19/20 06:00 Alkaline Phosphatase 678 units/L (35-129) H 07/19/20 06:00 Ammonia 41.0 umol/L (25-60) 07/18/20 08:56 Lactate Dehydrogenase 212 units/L (91-180) H 07/18/20 10:36 Total Creatine Kinase 108 units/L (55-170) 07/18/20 08:56 Troponin T 0.057 ng/mL (0.00-0.029) H 07/18/20 08:56 C-Reactive Protein 2.10 mg/dL (0.00-1.30) H 07/18/20 10:36 NT-Pro-B Natriuret Pep 4777 pg/mL (0-900) H 07/18/20 08:56 Total Protein 6.6 g/dL (6.3-8.2) 07/19/20 06:00 Albumin 2.2 g/dL (3.9-5) L 07/19/20 06:00 Albumin/Globulin Ratio 0.5 % 07/19/20 06:00 Triglycerides 65 mg/dL (2-149) 07/18/20 08:56 Cholesterol 157 mg/dL (50-199) 07/18/20 08:56 LDL Cholesterol Direct 95 mg/dL (50-130) 07/18/20 08:56 HDL Cholesterol 67 mg/dL (40-59) H 07/18/20 08:56 Cholesterol/HDL Ratio 2.34 % 07/18/20 08:56 Procalcitonin 0.10 ng/mL (<0.15) 07/18/20 10:36 TSH 5.520 mlU/mL (0.270-4.200) H 07/18/20 08:56 Free T4 0.84 ng/dL (0.76-1.46) 07/18/20 08:56 Random Vancomycin 16.1 ug/mL (0-40.0) 07/20/20 08:25 Coronavirus (PCR) Negative (Negative) 07/18/20 12:07 Blood Type A POSITIVE 07/18/20 08:56 Antibody Screen Negative 07/18/20 08:56 Microbiology: Microbiology 07/18/20 09:00 Peripheral/Venous Blood Culture - Preliminary NO GROWTH AFTER 72 HOURS 07/18/20 09:00 Peripheral/Venous Blood Culture - Preliminary Ayala/IV: Voiding Method Indwelling Catheter Active Medications - Current Medications Current Medications: Generic Name Dose Route Start Last Admin Trade Name Freq PRN Reason Stop Dose Admin Aspirin 81 mg 07/19/20 10:00 07/21/20 10:03 Aspirin Ec 81 Mg Tab PO 81 mg QDAY JODIE Administration Carvedilol 12.5 mg 07/18/20 22:00 07/21/20 09:49 Carvedilol 12.5 Mg Tab PO Not Given BID JODIE Chlorothiazide Sodium 500 mg 07/21/20 10:00 07/21/20 09:59 Chlorothiazide 500 Mg Vial IV 500 mg QDAY JODIE Administration Famotidine 20 mg 07/18/20 22:00 07/21/20 10:00 Famotidine 20 Mg Tab PO 20 mg DAILY JODIE Administration Fluoxetine HCl 20 mg 07/19/20 10:00 07/21/20 09:57 Fluoxetine 20 Mg Cap PO Not Given QDAY JODIE Folic Acid 1 mg 07/19/20 10:00 07/21/20 09:59 Folic Acid 1 Mg Tab PO 1 mg DAILY JODIE Administration Furosemide 60 mg 07/18/20 18:00 07/21/20 05:16 Furosemide 20 Mg/2 Ml Inj IV 60 mg 0600,1800 JODIE Administration Hydralazine HCl 50 mg 07/18/20 14:00 07/21/20 05:15 Hydralazine 25 Mg Tab PO Not Given Q8HR JODIE Cefazolin Sodium 2 gm/ Sodium 100 mls @ 200 mls/hr 07/18/20 17:00 07/21/20 04:45 Chloride IV 07/24/20 17:29 200 mls/hr Q12H JODIE Administration Protocol Vancomycin HCl 1,750 mg/ 535 mls @ 333.333 mls/hr 07/21/20 14:00 Sodium Chloride IV 07/21/20 15:36 ONCE ONE Levetiracetam 750 mg 07/18/20 22:00 07/21/20 09:59 Levetiracetam 500 Mg/5 Ml Oral Liqd PO 750 mg BID JODIE Administration Thiamine HCl 100 mg 07/19/20 10:00 07/21/20 10:00 Thiamine 100 Mg Tab PO 100 mg QDAY JODIE Administration Trazodone HCl 50 mg 07/18/20 22:00 07/20/20 22:11 Trazodone 50 Mg Tab PO 50 mg QHS JODIE Administration Nutrition/Malnutrition Assess - Dietary Evaluation Nutrition/Malnutrition Findings: Nutrition Notes Start: 07/19/20 09:53 Freq: Status: Active Protocol: Document 07/19/20 10:52 AL (Rec: 07/19/20 11:02 AL [id number]) Co-Sign 07/19/20 10:52 LP Nutrition Notes Need for Assessment generated from: tip inserter Initial or Follow up Assessment Current Diagnosis CKD(stage I-IV),Diabetes,Heart Failure,Stroke Other Pertinent Diagnosis COVID PUI, AMS Current Diet Consistent Carbohydrate Labs/Tests K 5.3 BUN 52 Cr 3.4 Pertinent Medications Lasix Height 5 ft 9 in Weight 114.76 kg [place] Body Weight (kg) 72.72 BMI 37.3 Weight Status Obese Subjective/Other Information RN screen for Skin risk. Pt [place] score is 16. Unable to enter pt room d/t COVID PUI status. Pt did not answer phone when called x2. Per RN, pt intake depends on his mood. Pt needs feeding assistance and ate 0% of breakfast this morning. Pt diet needs to be changed to Renal/Consistent Carb d/t CKD and high renal labs Percent of energy/protein needs met: 0%/0% Burn Absent Trauma Absent Current % PO Poor (25-49%) Minimum of two criteria No physical signs of malnutrition Fluid Accumulation N/A #1 Nutrition Diagnosis Inadequate energy intake Etiology AMS stroke As Evidenced by Signs and Symptoms Pt ate 0% of breakfast and pt eats depending on mood. Is patient on ventilator? No Is Patient Ambulatory and/or Out of Bed No REE-([facility]-confined to bed) 2330.148 Kcal/Kg value to use for calculation 17 Approximate Energy Requirements Using 1 kcal/Kg Calculation Used for Recommendations Kcal/kg Additional Notes Protein: 74-84 g (.8-.9 g/kg AdBW-93 kg) Fluid: 0126-6541 ml Nutrition Intervention Change Diet Order: Change diet to Renal/ Consistent Carb. Add Supplement/Snack (indicate name/kcal Nepro daily /protein ) Provides kCal: 425 Provides Protein (gm) 19 Goal #1 Meet 75% of energy and protein needs PO Goal #2 ONS tolerance Anticipated Discharge Needs: Renal/ Consistent Carb Diet Follow-Up By: 07/23/20 Additional Comments F/U for diet change, intakes, renal labs, and ONS tolerance
[2020-07-21 11:08] LABS: Calcium 7.6 mg/dL (8.4-10.2)
--- NOTE | 2020-07-21 12:11 | Cat Scan Report ---
CT HEAD WITHOUT CONTRAST INDICATION / CLINICAL INFORMATION: AMS. TECHNIQUE: All CT scans at this location are performed using CT dose reduction for ALARA by means of automated exposure control. COMPARISON: 07/17/2019 FINDINGS: Examination is limited due to motion artifact. BRAIN PARENCHYMA: Encephalomalacia of the lateral left frontal lobe and lateral anterior parietal lob e are unchanged. No evidence of recent infarct or acute intracranial hemorrhage. Chronic small vessel ischemic disease is similar. VENTRICULAR SYSTEM/EXTRA-AXIAL SPACES: Ventricles are normal for age. No extra-axial fluid collection . ORBITS: Normal as visualized. SKELETAL SYSTEM/SOFT TISSUES: Stable remodeling of the left parietal bone. No acute process. PARANASAL SINUSES/MASTOID AIR CELLS: No significant abnormality. ADDITIONAL FINDINGS: None. IMPRESSION: No acute intracranial abnormality. No interval change. Signer Name: Bashir Olivera MD Signed: 07/21/2020 12:07 PM Workstation Name: [id number]
[2020-07-21] MEDS ORDERED: VANCOMYCIN 1,750 MG in SODIUM CHLORIDE 0.9% 500 ML 500 ML IV ONE (14:00)
[2020-07-21] MEDS: BUMETANIDE 10 MG in SODIUM CHLORIDE 0.9% 60 ML IV SCH (15:32)
--- NOTE | 2020-07-21 16:28 | Event Note ---
Date: 07/21/20 Tried to contact patient's niece Ms. Amee Corcoran #[phone] to discuss about patient's critical condition and poor prognosis however Unable to reach, voicemail is of the patient Jd Albert.
--- NOTE | 2020-07-21 17:02 | XRay Report ---
CHEST 1 VIEW 07/21/2020 2:31 PM INDICATION / CLINICAL INFORMATION: sepsis. COMPARISON: 07/18/2020 FINDINGS: SUPPORT DEVICES: Stable, satisfactory device positioning. HEART / MEDIASTINUM: No significant abnormality. LUNGS / PLEURA: Bibasilar pleural-parenchymal opacities are unchanged when compared to 07/18/2020. No pneumothorax. ADDITIONAL FINDINGS: No significant additional findings. IMPRESSION: 1. No significant change. Signer Name: Papi Cutler MD Signed: 07/21/2020 4:57 PM Workstation Name: [id number]
[2020-07-21] MEDS ORDERED: WATER FOR INJ Sterile (PF) 20 ML ONE (21:07)
[2020-07-21] MEDS: CHLOROTHIAZIDE 500 MG VIAL IV SCH ×2 (21:27)
[2020-07-21] MEDS: SODIUM BICARBONATE 650 MG TAB PO SCH ×2 (21:31→22:50)
[2020-07-21] MEDS: traZODone 50 MG TAB PO SCH (21:32)
[2020-07-22] MEDS: BUMETANIDE 10 MG in SODIUM CHLORIDE 0.9% 60 ML IV SCH ×3 (01:48→21:09)
[2020-07-22] MEDS: hydrALAZINE 25 MG TAB PO SCH ×3 (06:03→22:22)
[2020-07-22 07:52] LABS: Calcium 7.6 mg/dL (8.4-10.2)
[2020-07-22] MEDS ORDERED: SODIUM POLYSTYRENE 15 GM/60 ML ORAL LIQD PO ONE ×2 (09:11→12:00)
--- NOTE | 2020-07-22 09:19 | Progress Note ---
Assessment and Plan - Patient Problems (1) Acute on chronic renal failure Current Visit: Yes Status: Acute Qualifiers: Acute renal failure type: unspecified Chronic kidney disease stage: stage 3 (moderate) Chronic kidney disease stage 3 subtype: stage 3a (GFR 45-59) Qualified Code(s): N17.9 - Acute kidney failure, unspecified; N18.31 - Chronic kidney disease, stage 3a Plan to address problem: Patient has likely underlying chronic kidney disease stage IIIb in the setting of hypertension and diabetes. His previous Urine Pr/Cr ratio was greater than 2 g. His acute injury at this time is noted in the setting of significant anasarca and volume overload. Is also question of possible underlying sepsis given his right lower extremity wound. He does have a previous history of staph bacteremia noted on his most recent hospitalization. He has been started on IV antibiotics which we need to ensure is dosed appropriate for his renal function. I would avoid standing IV fluids in this patient given his already significant level of anasarca and edema. s/p jones placement for strict intake. Patient remained oliguric and bumex gtt was started at 2mg/hr along with diuril with little response. Will add albumin support. obtain renal/bladder US. If patient remains oligoanuric and renal failure progresses despite above measures will n eed to initiate renal replacement therapy. Not able to discuss HD with patient due to his mental status/psychotic events. No family available to discuss further renal care plan. Recommend psychiatry consultation in AM, may need 2 physician consent for temporary HD. (2) Anasarca Current Visit: Yes Status: Acute Plan to address problem: Unclear etiology of significant anasarca and edema noted on physical examination. His previous UPC to indicate greater than 2 g of protein with his history of diabetes likely indicating presence of diabetic nephropathy. Would recommend aggressive diuretic therapy at this time to help remove fluid. We have started patient on IV Lasix 60 mg IV twice daily, added diuril (3) Anemia Current Visit: Yes Status: Chronic Qualifiers: Anemia type: unspecified type Qualified Code(s): D64.9 - Anemia, unspecified Plan to address problem: Transfuse to maintain hemoglobin above 7. (4) Hyperkalemia Current Visit: Yes Status: Acute Plan to address problem: Treat with kayexalate. If no response to above diuretic regimen seen and hyperkalemia remains refractory, we'll need renal replacement therapy (5) Hypertensive chronic kidney disease with stage 1 through stage 4 chronic kidney disease, or unspecified chronic kidney disease Current Visit: No Status: Acute Plan to address problem: We will hold off on blood pressure medication at this time, except diuretics, giving his current hemodynamic status. (6) Sepsis Current Visit: Yes Status: Acute Qualifiers: Sepsis type: sepsis due to unspecified organism Sepsis acute organ dysfunction status: with acute organ dysfunction Severe sepsis acute organ dysfunction type: acute renal failure Acute renal failure type: unspecified Severe sepsis shock status: without septic shock Qualified Code(s): A41.9 - Sepsis, unspecified organism; R65.20 - Severe sepsis without septic shock; N17.9 - Acute kidney failure, unspecified Plan to address problem: Blood cultures are pending at this time. Patient has been placed on broad- spectrum antibiotics. Please ensure that antibiotics are dosed appropriate for his decreased renal function. Recommend to avoid standing IV fluids and if needed for hemodynamic support would only do pressors. (7) Type 2 diabetes mellitus with diabetic nephropathy Current Visit: No Status: Acute Plan to address problem: : Diabetes managed per primary attending. Subjective Date of service: 07/22/20 Principal diagnosis: RACQUEL Interval history: Pt awake, agitated on 2 points restraints, remains oliguric despite starting bumex gtt. Objective - Vital Signs Vital signs: Vital Signs - 12hr 07/21/20 07/21/20 07/21/20 20:15 20:31 20:45 Temperature Pulse Rate 42 L 43 L Pulse Rate [ From Monitor] Respiratory 13 10 L Rate Respiratory Rate [Bilateral Leg] Blood Pressure 128/66 139/75 128/66 O2 Sat by Pulse 98 97 99 Oximetry 07/21/20 07/21/20 07/21/20 21:01 21:50 22:00 Temperature Pulse Rate 45 L Pulse Rate [ From Monitor] Respiratory Rate Respiratory 16 Rate [Bilateral Leg] Blood Pressure 123/60 O2 Sat by Pulse Oximetry 07/21/20 07/21/20 07/21/20 23:27 23:31 23:43 Temperature Pulse Rate 43 L 43 L Pulse Rate [ From Monitor] Respiratory 15 15 Rate Respiratory Rate [Bilateral Leg] Blood Pressure 123/60 117/72 117/72 O2 Sat by Pulse 97 97 Oximetry 07/22/20 07/22/20 07/22/20 00:00 01:00 03:01 Temperature Pulse Rate 44 L 43 L Pulse Rate [ 43 L From Monitor] Respiratory 16 16 15 Rate Respiratory Rate [Bilateral Leg] Blood Pressure 117/74 100/67 100/64 O2 Sat by Pulse 95 97 97 Oximetry 07/22/20 07/22/20 07/22/20 04:00 04:24 04:43 Temperature 87.5 F L Pulse Rate 46 L Pulse Rate [ 45 L From Monitor] Respiratory 14 Rate Respiratory Rate [Bilateral Leg] Blood Pressure 100/67 O2 Sat by Pulse 99 81 L Oximetry 07/22/20 07/22/20 07/22/20 05:01 06:00 06:03 Temperature Pulse Rate 45 L 45 L 45 L Pulse Rate [ From Monitor] Respiratory 16 14 Rate Respiratory Rate [Bilateral Leg] Blood Pressure 115/76 110/72 110/72 O2 Sat by Pulse 100 96 Oximetry 07/22/20 07/22/20 07:00 08:00 Temperature Pulse Rate 44 L 45 L Pulse Rate [ From Monitor] Respiratory 16 17 Rate Respiratory Rate [Bilateral Leg] Blood Pressure 117/73 114/75 O2 Sat by Pulse 98 94 Oximetry - General Appearance General appearance: well-developed, appears stated age, other (agitated ) EENT: ATNC, PERRL, mucous membranes moist Neck: no JVD Respiratory: Present: Decreased Breath Sounds Cardiology: regular, S1S2 Gastrointestinal: normoactive bowel sounds Integumentary: no rash, other (+ 2 edema b/l LE ) Neurologic: no focal deficit, disoriented, CN 3-12 intact, other (agitated ) - Lab 07/20/20 08:25 07/22/20 07:25 Most recent lab results Calcium 7.6 mg/dL (8.4-10.2) L 07/22/20 07:25 Phosphorus 4.40 mg/dL (2.5-4.5) 07/18/20 08:56 Magnesium 2.20 mg/dL (1.7-2.3) 07/20/20 08:25 Medications & Allergies - Medications Allergies/Adverse Reactions: Allergies No Known Allergies Allergy (Verified 06/19/19 17:53) Home Medications: Home Medications Medication Instructions Recorded Confirmed Last Taken Type FLUoxetine [PROzac] 20 mg PO QDAY #14 capsule 06/23/19 06/21/20 Unknown Rx traZODone [Desyrel] 50 mg PO QHS #10 tablet 06/23/19 06/21/20 Unknown Rx Folic Acid 1 mg PO DAILY #30 tablet 06/25/19 06/21/20 Unknown Rx Nicotine [Habitrol] 14 mg TD DAILY #30 patch 06/25/19 06/21/20 Unknown Rx Thiamine [Vitamin B-1] 100 mg PO QDAY #30 tablet 06/25/19 06/21/20 Unknown Rx Aspirin EC [Halfprin EC] 81 mg PO QDAY #30 tablet. 07/26/19 06/21/20 Unknown Rx levETIRAcetam [Keppra TAB] 750 mg PO BID #60 tablet 07/26/19 06/21/20 Unknown Rx Furosemide [Lasix TAB] 40 mg PO QDAY #30 tablet 04/28/20 06/21/20 Unknown Rx Famotidine [Pepcid] 20 mg PO BID #60 tablet 07/05/20 Unknown Rx Insulin NPH, Human [NovoLIN N] 5 unit SUB-Q BIDDIAB 30 Days #10 ml 07/05/20 06/21/20 Unknown Rx amLODIPine 10 mg PO QDAY #30 tablet 07/05/20 Unknown Rx carvediloL [Coreg] 12.5 mg PO BID #60 tablet 07/05/20 Unknown Rx hydrALAZINE [Apresoline TAB] 50 mg PO Q8HR #30 tablet 07/06/20 Unknown Rx Active Medications: Generic Name Dose Route Start Last Admin Trade Name Freq PRN Reason Stop Dose Admin Albumin Human 12.5 gm 07/22/20 10:00 Albumin Human 25% (12.5 Gm/50 Ml) Inj IV 07/24/20 09:59 Q12HR JODIE Aspirin 81 mg 07/19/20 10:00 07/21/20 10:03 Aspirin Ec 81 Mg Tab PO 81 mg QDAY JODIE Administration Carvedilol 12.5 mg 07/18/20 22:00 07/21/20 21:50 Carvedilol 12.5 Mg Tab PO Not Given BID JODIE Chlorothiazide Sodium 500 mg 07/21/20 20:00 07/21/20 21:27 Chlorothiazide 500 Mg Vial IV 500 mg BID JODIE Administration Famotidine 20 mg 07/18/20 22:00 07/21/20 10:00 Famotidine 20 Mg Tab PO 20 mg DAILY JODIE Administration Fluoxetine HCl 20 mg 07/19/20 10:00 07/21/20 09:57 Fluoxetine 20 Mg Cap PO Not Given QDAY JODIE Folic Acid 1 mg 07/19/20 10:00 07/21/20 09:59 Folic Acid 1 Mg Tab PO 1 mg DAILY JODIE Administration Hydralazine HCl 50 mg 07/18/20 14:00 07/22/20 06:03 Hydralazine 25 Mg Tab PO Not Given Q8HR JODIE Cefazolin Sodium 2 gm/ Sodium 100 mls @ 200 mls/hr 07/18/20 17:00 07/22/20 05:57 Chloride IV 07/24/20 17:29 200 mls/hr Q12H JODIE Administration Protocol Bumetanide 10 mg/ Sodium 100 mls @ 20 mls/hr 07/21/20 15:00 07/22/20 01:48 Chloride IV 20 mls/hr Q10H JODIE Administration Levetiracetam 750 mg 07/18/20 22:00 07/21/20 21:32 Levetiracetam 500 Mg/5 Ml Oral Liqd PO 750 mg BID JODIE Administration Sodium Bicarbonate 1,300 mg 07/21/20 20:00 07/21/20 22:50 Sodium Bicarbonate 650 Mg Tab PO Not Given BID JODIE Sodium Polystyrene Sulfonate 30 gm 07/22/20 09:11 Sodium Polystyrene 15 Gm/60 Ml Oral Liqd PO 07/22/20 09:12 ONCE ONE Thiamine HCl 100 mg 07/19/20 10:00 07/21/20 10:00 Thiamine 100 Mg Tab PO 100 mg QDAY JODIE Administration Trazodone HCl 50 mg 07/18/20 22:00 07/21/20 21:32 Trazodone 50 Mg Tab PO 50 mg QHS JODIE Administration
[2020-07-22] MEDS ORDERED: NORepinephrine/NS 4 MG-250 ML 4 MG/250 ML BAG IV ONE (09:55)
[2020-07-22] MEDS: fentaNYL DRIP Premix 2,000 MCG/100 ML BAG IV SCH ×3 (10:00→22:02)
[2020-07-22] MEDS ORDERED: MINERAL OIL/PETROLATUM, WHITE OPHTH OINT 3.5 GM OU PRN (10:02)
[2020-07-22] MEDS ORDERED: LIP THERAPY VASELINE TP PRN (10:02)
[2020-07-22] MEDS ORDERED: fentaNYL 100 MCG/2 ML INJ IV PRN (10:02)
--- NOTE | 2020-07-22 10:24 | Progress Note ---
Assessment and Plan Assessment and plan: --Acute respiratory failure: Requiring intubation and mechanical ventilation Continue ventilatory support, nebulizers Pulmonary critical consult --Acute toxic metabolic encephalopathy; Check CT head without contrast --Sepsis/SIRS/hypothermia; Warm blankets, treat the underlying sepsis IV antibiotics, follow cultures ID consult if needed --Persistent bradycardia Heart rate in 40s to 50s Patient is not on any beta-blockers Will consult cardiology --h/o MSSA bacteremia on treatment We will continue Unasyn 2 g every 8 hourly ID recommended total 6 weeks 07/24/2020 --h/o right calf abscess: s/p surgical procedure/wide excision 06/2020 On long-term antibiotics --PUI/COVID-19 test negative Supportive care --Type 2 diabetes mellitus; Accu-Chek sliding scale coverage ADA diet Long-acting insulin, check HbA1c --Acute plan chronic kidney disease3; Gentle hydration, monitor renal function Avoid nephrotoxins, nephrology consulted --Congestive heart failure; Continue antifailure medications Input output monitoring, diuretics Cardiology consult if needed --History of seizure disorder; Seizure precautions, continue Keppra --History of CVA; with residual weakness Fall precautions, PT OT as needed --DVT prophylaxis; Heparin renal dose --Full CODE STATUS --Restraint for safety I called patient's niece Amee Corcoran #[phone] as well as patient's aunt Viridiana Ambrosio [phone] And discussed in detail patient's critical condition respiratory failure requiring intubation change of status, and transfer to ICU Verbalized understanding The high probability of a clinically significant, sudden or life threatening deterioration of the [multi] system(s) required my full and direct attention, intervention and personal management. The aggregate critical care time was [50] minutes. This time is in addition to time spent performing reported procedures but includes the following: [x] Data Review and interpretation [x] Patient assessment and monitoring of vital signs [x] Documentation [x] Medication orders and management Hospital course; 07/19/2020; unable to pass Ayala catheter, Consulted urology, continue supportive care, COVID-19 test negative 07/20/2020; urology evaluation recommendation noted and appreciated Ayala catheter was inserted by urology, draining well MSSA bacteremia on long-term antibiotics 07/21/2020; patient is lethargic CT head without contrast, no acute abnormality Patient is afebrile 07/22/2020; patient had acute respiratory failure this morning JEFFERY IBARRA was called, patient was intubated on ventilatory support Pulmonary critical consulted, family patients aunt informed History Interval history: Patient in acute distress Intubated on ventilatory support Small amount of blood from the nostrils Patient is sedated Vital signs noted Hospitalist Physical - Constitutional Vitals: Temp Pulse Resp BP Pulse Ox 87.5 F L 45 L 17 114/75 94 07/22/20 04:00 07/22/20 08:00 07/22/20 08:00 07/22/20 08:00 07/22/20 08:00 General appearance: Present: mild distress, well-nourished, obese, other (Lethargic) - EENT Eyes: Present: PERRL, EOM intact - Neck Neck: Present: supple, normal ROM - Respiratory Respiratory effort: labored Respiratory: bilateral: diminished, rhonchi, negative: rales, wheezing - Cardiovascular Rhythm: regular Heart Sounds: Present: S1 & S2 - Extremities Extremities: no ischemia Extremity abnormal: edema - Abdominal General gastrointestinal: soft, non-tender, non-distended, normal bowel sounds, other (Edema abdominal wall) - Integumentary Integumentary: Present: clear, warm - Psychiatric Psychiatric: other (Intubated and sedated) - Neurologic Neurologic: other (Intubated and sedated) HEART Score - HEART Score Troponin: Troponin T 0.057 ng/mL (0.00-0.029) H 07/18/20 08:56 Results - Labs CBC & Chem 7: 07/22/20 10:30 07/22/20 10:30 Labs: Laboratory Last Values WBC 3.6 K/mm3 (4.5-11.0) L 07/20/20 08:25 RBC 2.54 M/mm3 (3.65-5.03) L 07/20/20 08:25 Hgb 8.0 gm/dl (11.8-15.2) L 07/20/20 08:25 Hct 24.6 % (35.5-45.6) L 07/20/20 08:25 MCV 97 fl (84-94) H 07/20/20 08:25 MCH 32 pg (28-32) 07/20/20 08:25 MCHC 33 % (32-34) 07/20/20 08:25 RDW 18.0 % (13.2-15.2) H 07/20/20 08:25 Plt Count 47 K/mm3 (140-440) L 07/20/20 08:25 Lymph % (Auto) 25.4 % (13.4-35.0) 07/20/20 08:25 Kimball % (Auto) 9.8 % (0.0-7.3) H 07/20/20 08:25 Eos % (Auto) 0.7 % (0.0-4.3) 07/20/20 08:25 Baso % (Auto) 0.1 % (0.0-1.8) 07/20/20 08:25 Lymph # (Auto) 0.9 K/mm3 (1.2-5.4) L 07/20/20 08:25 Kimball # (Auto) 0.3 K/mm3 (0.0-0.8) 07/20/20 08:25 Eos # (Auto) 0.0 K/mm3 (0.0-0.4) 07/20/20 08:25 Baso # (Auto) 0.0 K/mm3 (0.0-0.1) 07/20/20 08:25 Seg Neutrophils % 64.0 % (40.0-70.0) 07/20/20 08:25 Seg Neutrophils # 2.3 K/mm3 (1.8-7.7) 07/20/20 08:25 PT 14.8 Sec. (12.2-14.9) 07/18/20 08:56 INR 1.18 (0.87-1.13) H 07/18/20 08:56 APTT 36.4 Sec. (24.2-36.6) 07/18/20 08:56 D-Dimer 1036.46 ng/mlDDU (0-234) H 07/18/20 08:56 Sodium 144 mmol/L (137-145) 07/22/20 07:25 Potassium 5.6 mmol/L (3.6-5.0) H 07/22/20 07:25 Chloride 115.1 mmol/L (98-107) H 07/22/20 07:25 Carbon Dioxide 22 mmol/L (22-30) 07/22/20 07:25 Anion Gap 13 mmol/L 07/22/20 07:25 BUN 61 mg/dL (9-20) H 07/22/20 07:25 Creatinine 4.6 mg/dL (0.8-1.3) H 07/22/20 07:25 Estimated GFR 16 ml/min 07/22/20 07:25 BUN/Creatinine Ratio 13 % 07/22/20 07:25 Glucose 109 mg/dL (75-100) H 07/22/20 07:25 POC Glucose 101 mg/dL (70-105) 07/22/20 09:58 Lactic Acid 0.80 mmol/L (0.7-2.0) 07/18/20 08:56 Calcium 7.6 mg/dL (8.4-10.2) L 07/22/20 07:25 Phosphorus 4.40 mg/dL (2.5-4.5) 07/18/20 08:56 Magnesium 2.20 mg/dL (1.7-2.3) 07/20/20 08:25 Ferritin 198.6 ng/mL (30.0-300.0) 07/18/20 10:36 Total Bilirubin 0.40 mg/dL (0.1-1.2) 07/19/20 06:00 Direct Bilirubin 0.2 mg/dL (0-0.2) 07/19/20 06:00 Indirect Bilirubin 0.2 mg/dL 07/19/20 06:00 AST 77 units/L (5-40) H 07/19/20 06:00 ALT < 5 units/L (7-56) L 07/19/20 06:00 Alkaline Phosphatase 678 units/L (35-129) H 07/19/20 06:00 Ammonia 41.0 umol/L (25-60) 07/18/20 08:56 Lactate Dehydrogenase 212 units/L (91-180) H 07/18/20 10:36 Total Creatine Kinase 108 units/L (55-170) 07/18/20 08:56 Troponin T 0.057 ng/mL (0.00-0.029) H 07/18/20 08:56 C-Reactive Protein 2.10 mg/dL (0.00-1.30) H 07/18/20 10:36 NT-Pro-B Natriuret Pep 4777 pg/mL (0-900) H 07/18/20 08:56 Total Protein 6.6 g/dL (6.3-8.2) 07/19/20 06:00 Albumin 2.2 g/dL (3.9-5) L 07/19/20 06:00 Albumin/Globulin Ratio 0.5 % 07/19/20 06:00 Triglycerides 65 mg/dL (2-149) 07/18/20 08:56 Cholesterol 157 mg/dL (50-199) 07/18/20 08:56 LDL Cholesterol Direct 95 mg/dL (50-130) 07/18/20 08:56 HDL Cholesterol 67 mg/dL (40-59) H 07/18/20 08:56 Cholesterol/HDL Ratio 2.34 % 07/18/20 08:56 Procalcitonin 0.10 ng/mL (<0.15) 07/18/20 10:36 TSH 5.520 mlU/mL (0.270-4.200) H 07/18/20 08:56 Free T4 0.84 ng/dL (0.76-1.46) 07/18/20 08:56 Random Vancomycin 16.1 ug/mL (0-40.0) 07/20/20 08:25 Coronavirus (PCR) Negative (Negative) 07/18/20 12:07 Blood Type A POSITIVE 07/18/20 08:56 Antibody Screen Negative 07/18/20 08:56 Microbiology: Microbiology 07/18/20 09:00 Peripheral/Venous Blood Culture - Preliminary NO GROWTH AFTER 4 DAYS 07/18/20 10:30 Urine,Catheterized - Straight Catheter Urine Culture - Preliminary NO GROWTH AFTER 24 HOURS Ayala/IV: Voiding Method Indwelling Catheter Active Medications - Current Medications Current Medications: Generic Name Dose Route Start Last Admin Trade Name Freq PRN Reason Stop Dose Admin Albumin Human 12.5 gm 07/22/20 10:00 Albumin Human 25% (12.5 Gm/50 Ml) Inj IV 07/24/20 09:59 Q12HR JODIE Aspirin 81 mg 07/19/20 10:00 07/21/20 10:03 Aspirin Ec 81 Mg Tab PO 81 mg QDAY JODIE Administration Carvedilol 12.5 mg 07/18/20 22:00 07/21/20 21:50 Carvedilol 12.5 Mg Tab PO Not Given BID JODIE Chlorothiazide Sodium 500 mg 07/21/20 20:00 07/21/20 21:27 Chlorothiazide 500 Mg Vial IV 500 mg BID JODIE Administration Famotidine 20 mg 07/18/20 22:00 07/21/20 10:00 Famotidine 20 Mg Tab PO 20 mg DAILY JODIE Administration Fentanyl 50 mcg 07/22/20 10:02 Fentanyl 100 Mcg/2 Ml Inj IV Q10MIN PRN ANALGESIA Fluoxetine HCl 20 mg 07/19/20 10:00 07/21/20 09:57 Fluoxetine 20 Mg Cap PO Not Given QDAY JODIE Folic Acid 1 mg 07/19/20 10:00 07/21/20 09:59 Folic Acid 1 Mg Tab PO 1 mg DAILY JODIE Administration Hydralazine HCl 50 mg 07/18/20 14:00 07/22/20 06:03 Hydralazine 25 Mg Tab PO Not Given Q8HR JODIE Hydrophilic Ointment 1 applic 07/22/20 10:02 Lip Therapy Vaseline TP Q2HR PRN Dry Lips Bumetanide 10 mg/ Sodium 100 mls @ 20 mls/hr 07/21/20 15:00 07/22/20 01:48 Chloride IV 20 mls/hr Q10H JODIE Administration Cefazolin Sodium 1 gm in 50 mls @ 100 mls/hr 07/22/20 18:00 Ancef/Ns 1 Gm/50 Ml IV 07/24/20 19:59 Q12H JODIE Fentanyl Citrate 2,000 mcg in 100 mls @ 5.738 mls/hr 07/22/20 11:00 Fentanyl Drip Premix IV TITR JODIE Protocol 1 MCG/KG/HR Levetiracetam 750 mg 07/18/20 22:00 07/21/20 21:32 Levetiracetam 500 Mg/5 Ml Oral Liqd PO 750 mg BID JODIE Administration Multi-Ingred Cream/Lotion/Oil/Oint 1 applic 07/22/20 10:02 Mineral Oil/Petrolatum, White Ophth Oint 3.5 Gm OU Q4HR PRN Dry Eye(s) Sodium Bicarbonate 1,300 mg 07/21/20 20:00 07/21/20 22:50 Sodium Bicarbonate 650 Mg Tab PO Not Given BID JODIE Thiamine HCl 100 mg 07/19/20 10:00 07/21/20 10:00 Thiamine 100 Mg Tab PO 100 mg QDAY JODIE Administration Trazodone HCl 50 mg 07/18/20 22:00 07/21/20 21:32 Trazodone 50 Mg Tab PO 50 mg QHS JODIE Administration Nutrition/Malnutrition Assess - Dietary Evaluation Nutrition/Malnutrition Findings: Nutrition Notes Start: 07/19/20 09:53 Freq: Status: Active Protocol: Document 07/19/20 10:52 AL (Rec: 07/19/20 11:02 AL [id number]) Co-Sign 07/19/20 10:52 LP Nutrition Notes Need for Assessment generated from: slip cover cutter Initial or Follow up Assessment Current Diagnosis CKD(stage I-IV),Diabetes,Heart Failure,Stroke Other Pertinent Diagnosis COVID PUI, AMS Current Diet Consistent Carbohydrate Labs/Tests K 5.3 BUN 52 Cr 3.4 Pertinent Medications Lasix Height 5 ft 9 in Weight 114.76 kg [place] Body Weight (kg) 72.72 BMI 37.3 Weight Status Obese Subjective/Other Information RN screen for Skin risk. Pt Byron score is 16. Unable to enter pt room d/t COVID PUI status. Pt did not answer phone when called x2. Per RN, pt intake depends on his mood. Pt needs feeding assistance and ate 0% of breakfast this morning. Pt diet needs to be changed to Renal/Consistent Carb d/t CKD and high renal labs Percent of energy/protein needs met: 0%/0% Burn Absent Trauma Absent Current % PO Poor (25-49%) Minimum of two criteria No physical signs of malnutrition Fluid Accumulation N/A #1 Nutrition Diagnosis Inadequate energy intake Etiology AMS stroke As Evidenced by Signs and Symptoms Pt ate 0% of breakfast and pt eats depending on mood. Is patient on ventilator? No Is Patient Ambulatory and/or Out of Bed No REE-([facility]-confined to bed) 2330.148 Kcal/Kg value to use for calculation 17 Approximate Energy Requirements Using 1951 kcal/Kg Calculation Used for Recommendations Kcal/kg Additional Notes Protein: 74-84 g (.8-.9 g/kg AdBW-93 kg) Fluid: 7428-3151 ml Nutrition Intervention Change Diet Order: Change diet to Renal/ Consistent Carb. Add Supplement/Snack (indicate name/kcal Nepro daily /protein ) Provides kCal: 425 Provides Protein (gm) 19 Goal #1 Meet 75% of energy and protein needs PO Goal #2 ONS tolerance Anticipated Discharge Needs: Renal/ Consistent Carb Diet Follow-Up By: 07/23/20 Additional Comments F/U for diet change, intakes, renal labs, and ONS tolerance
[2020-07-22] MEDS ORDERED: MIDAZOLAM 2 MG/2 ML INJ IV ONE (10:30)
[2020-07-22] MEDS ORDERED: MIDAZOLAM 5 MG/5 ML INJ MDV IV ONE (10:50)
[2020-07-22 11:01] LABS: INR 1.27 (0.87-1.13)
[2020-07-22 11:02] LABS: Partial Thromboplastin Time 38.3 Sec. (24.2-36.6)
[2020-07-22 11:06] LABS: Albumin 2.1 g/dL (3.9-5); Blood Urea Nitrogen 61 mg/dL (9-20); Calcium 7.5 mg/dL (8.4-10.2); Hemolysis Index 0
[2020-07-22] MEDS: FLUoxetine 20 MG CAP PO SCH (11:07)
[2020-07-22] MEDS: carvediloL 12.5 MG TAB PO SCH ×2 (11:08→22:11)
[2020-07-22 11:21] LABS: Alanine Aminotransferase < 5 units/L (7-56); BUN/Creatinine Ratio 13
--- NOTE | 2020-07-22 11:25 | XRay Report ---
CHEST / ABDOMEN 1 VIEW INDICATION / CLINICAL INFORMATION: intubated. COMPARISON: 07/21/2020 chest radiograph FINDINGS: SUPPORT DEVICES: Interval placement of endotracheal tube with position just below the level of the cl avicles, satisfactory appearance. HEART / MEDIASTINUM: Stable. LUNGS / PLEURA: Bilateral lower lung pleural parenchymal disease is worse when compared to 07/21/2020, now moderate. No pneumothorax. TUBES / LINES: Gastric tube projects over the proximal/mid stomach. Radiolucent marker extends beyond the gastroesophageal junction. BOWEL GAS PATTERN: Diffuse moderate distention of small bowel which can be seen in the setting of ile us or developing small bowel obstruction. FREE AIR / EXTRALUMINAL GAS: None seen. ADDITIONAL FINDINGS: No significant additional findings. IMPRESSION: 1. Satisfactory appearance of the endotracheal tube and gastric tube. 2. Bilateral lower lung pleural-parenchymal disease, worse when compared to the prior radiograph. 3. Moderate distention of small bowel loops which can be seen in the setting of ileus or developing s mall bowel obstruction. Signer Name: Papi Cutler MD Signed: 07/22/2020 11:20 AM Workstation Name: [id number]
--- NOTE | 2020-07-22 11:37 | Event Note ---
Date: 07/22/20 I responded to JEFFERY IBARRA, code team is already at the bedside Patient was noted to have agonal breathing noticed by patient's nurse noted to be in acute respiratory failure Patient did not lose pulse, blood pressures stable, patient was intubated and placed on ventilatory support During intubation, patient had some bleeding from the nose ,probably traumatic, but significantly improved. Try to contact family unable to reach, pulmonary critical consulted
[2020-07-22 11:44] LABS: Hematocrit 24.7 % (35.5-45.6); Hemoglobin 7.9 gm/dl (11.8-15.2); Mean Corpuscular HGB Conc 32 % (32-34); Mean Corpuscular Volume 98 fl (84-94); Red Blood Count 2.53 M/mm3 (3.65-5.03); Red Cell Distribution Width 18.7 % (13.2-15.2)
[2020-07-22 11:45] LABS: Creatine Kinase MB 10.9 ng/mL (0.0-4.0)
[2020-07-22 11:50] LABS: Platelet Count 35 K/mm3 (140-440)
[2020-07-22] MEDS: ALBUMIN HUMAN 25% (12.5 GM/50 ML) INJ IV SCH ×2 (13:51→22:21)
[2020-07-22] MEDS: FOLIC ACID 1 MG TAB PO SCH (13:52)
[2020-07-22] MEDS: CHLOROTHIAZIDE 500 MG VIAL IV SCH ×2 (13:52→22:22)
[2020-07-22] MEDS: levETIRAcetam 500 MG/5 ML ORAL LIQD PO SCH ×2 (13:53→22:20)
[2020-07-22] MEDS: ASPIRIN EC 81 MG TAB PO SCH (13:53)
[2020-07-22] MEDS: SODIUM BICARBONATE 650 MG TAB PO SCH ×2 (13:53→22:21)
[2020-07-22] MEDS: THIAMINE 100 MG TAB PO SCH (13:53)
[2020-07-22] MEDS: FAMOTIDINE 20 MG TAB PO SCH (13:53)
[2020-07-22] MEDS ORDERED: hydrALAZINE 20 MG/1 ML INJ IV PRN (14:02)
--- NOTE | 2020-07-22 14:10 | Consultation ---
History of Present Illness Consult date: 07/22/20 Requesting physician: MURTAZA CABRERA Reason for consult: hypoxemia History of present illness: 64 y/o male transferred to ICU secondary to agonal respirations and was electively intubated. Was reported that he never lost pulse. He had been in the hospital several days prior and had been refusing HD. Remainder is benji btainable. Past History Past Medical History: diabetes, hypertension, renal failure, stroke, other (Depression, recent MSSA bacteremia) Past Surgical History: No surgical history Social history: alcohol abuse, other (Substance abuse) Family history: no significant family history Medications and Allergies Allergies Allergy/AdvReac Type Severity Reaction Status Date / Time No Known Allergies Allergy Verified 06/19/19 17:53 Home Medications Medication Instructions Recorded Confirmed Last Taken Type FLUoxetine [PROzac] 20 mg PO QDAY #14 capsule 06/23/19 06/21/20 Unknown Rx traZODone [Desyrel] 50 mg PO QHS #10 tablet 06/23/19 06/21/20 Unknown Rx Folic Acid 1 mg PO DAILY #30 tablet 06/25/19 06/21/20 Unknown Rx Nicotine [Habitrol] 14 mg TD DAILY #30 patch 06/25/19 06/21/20 Unknown Rx Thiamine [Vitamin B-1] 100 mg PO QDAY #30 tablet 06/25/19 06/21/20 Unknown Rx Aspirin EC [Halfprin EC] 81 mg PO QDAY #30 tablet. 07/26/19 06/21/20 Unknown Rx levETIRAcetam [Keppra TAB] 750 mg PO BID #60 tablet 07/26/19 06/21/20 Unknown Rx Furosemide [Lasix TAB] 40 mg PO QDAY #30 tablet 04/28/20 06/21/20 Unknown Rx Famotidine [Pepcid] 20 mg PO BID #60 tablet 07/05/20 Unknown Rx Insulin NPH, Human [NovoLIN N] 5 unit SUB-Q BIDDIAB 30 Days #10 ml 07/05/20 06/21/20 Unknown Rx amLODIPine 10 mg PO QDAY #30 tablet 07/05/20 Unknown Rx carvediloL [Coreg] 12.5 mg PO BID #60 tablet 07/05/20 Unknown Rx hydrALAZINE [Apresoline TAB] 50 mg PO Q8HR #30 tablet 07/06/20 Unknown Rx Active Meds: Active Medications Albumin Human (Albumin Human 25% (12.5 Gm/50 Ml) Inj) 12.5 gm IV Q12HR [facility] Stop: 07/24/20 09:59 Last Admin: 07/22/20 13:51 Dose: 12.5 gm Documented by: Aspirin (Aspirin Ec 81 Mg Tab) 81 mg PO QDAY [facility] Last Admin: 07/22/20 13:53 Dose: 81 mg Documented by: Carvedilol (Carvedilol 12.5 Mg Tab) 12.5 mg PO BID [facility] Last Admin: 07/22/20 11:08 Dose: Not Given Documented by: Chlorothiazide Sodium (Chlorothiazide 500 Mg Vial) 500 mg IV BID [facility] Last Admin: 07/22/20 13:52 Dose: 500 mg Documented by: Famotidine (Famotidine 20 Mg Tab) 20 mg PO DAILY [facility] Last Admin: 07/22/20 13:53 Dose: 20 mg Documented by: Fentanyl (Fentanyl 100 Mcg/2 Ml Inj) 50 mcg IV Q10MIN PRN PRN Reason: ANALGESIA Fluoxetine HCl (Fluoxetine 20 Mg Cap) 20 mg PO QDAY [facility] Last Admin: 07/22/20 11:07 Dose: Not Given Documented by: Folic Acid (Folic Acid 1 Mg Tab) 1 mg PO DAILY [facility] Last Admin: 07/22/20 13:52 Dose: 1 mg Documented by: Hydralazine HCl (Hydralazine 25 Mg Tab) 50 mg PO Q8HR [facility] Last Admin: 07/22/20 13:55 Dose: 50 mg Documented by: Hydralazine HCl (Hydralazine 20 Mg/1 Ml Inj) 20 mg IV Q4HR PRN PRN Reason: Blood Pressure Hydrophilic Ointment (Lip Therapy Vaseline) 1 applic TP Q2HR PRN PRN Reason: Dry Lips Bumetanide 10 mg/ Sodium (Chloride) 100 mls @ 20 mls/hr IV Q10H [facility] Last Admin: 07/22/20 13:54 Dose: 20 mls/hr Documented by: Cefazolin Sodium (Ancef/Ns 1 Gm/50 Ml) 1 gm in 50 mls @ 100 mls/hr IV Q12H [facility] Stop: 07/24/20 19:59 Fentanyl Citrate (Fentanyl Drip Premix) 2,000 mcg in 100 mls @ 5.738 mls/hr IV TITR [facility]; Protocol Last Admin: 07/22/20 13:54 Dose: 4 mcg/kg/hr, 22.952 mls/hr Documented by: Propofol (Diprivan 10 Mg/Ml) 1,000 mg in 100 mls @ 3.443 mls/hr IV TITR [facility]; Protocol Levetiracetam (Levetiracetam 500 Mg/5 Ml Oral Liqd) 750 mg PO BID [facility] Last Admin: 07/22/20 13:53 Dose: 750 mg Documented by: Multi-Ingred Cream/Lotion/Oil/Oint (Mineral Oil/Petrolatum, White Ophth Oint 3.5 Gm) 1 applic OU Q4HR PRN PRN Reason: Dry Eye(s) Sodium Bicarbonate (Sodium Bicarbonate 650 Mg Tab) 1,300 mg PO BID [facility] Last Admin: 07/22/20 13:53 Dose: 1,300 mg Documented by: Thiamine HCl (Thiamine 100 Mg Tab) 100 mg PO QDAY [facility] Last Admin: 07/22/20 13:53 Dose: 100 mg Documented by: Trazodone HCl (Trazodone 50 Mg Tab) 50 mg PO QHS [facility] Last Admin: 07/21/20 21:32 Dose: 50 mg Documented by: Review of Systems ROS unobtainable: due to endotracheal tube, due to mental status Physical Examination Vital signs: Vital Signs Pulse Resp 53 L 13 07/18/20 07:17 07/18/20 07:17 General appearance: appears uncomfortable ENT: epistaxis Neck: other (large in circumference) Effort: mildly labored Ascultation: Bilateral: diminished breath sounds Results - Laboratory Findings CBC and BMP: 07/25/20 04:00 07/25/20 04:00 PT/INR, D-dimer PT 15.9 Sec. (12.2-14.9) H 07/22/20 10:30 INR 1.27 (0.87-1.13) H 07/22/20 10:30 D-Dimer 1036.46 ng/mlDDU (0-234) H 07/18/20 08:56 Abnormal lab findings: Abnormal Labs 07/18/20 07/18/20 07/18/20 08:56 08:56 08:56 WBC 3.5 L RBC 2.51 L Hgb 8.0 L Hct 24.5 L MCV 98 H RDW 18.3 H Plt Count 58 L [place]ett % (Auto) 11.1 H Lymph # (Auto) PT INR 1.18 H APTT D-Dimer Sodium 146 H Potassium 5.2 H Chloride 117.3 H Carbon Dioxide 21 L BUN 52 H Creatinine 3.1 H Glucose 118 H POC Glucose Calcium 8.1 L Phosphorus AST ALT Alkaline Phosphatase Lactate Dehydrogenase CK-MB (CK-2) CK-MB (CK-2) Rel Index Troponin T 0.057 H C-Reactive Protein NT-Pro-B Natriuret Pep Albumin HDL Cholesterol 67 H TSH 07/18/20 07/18/20 07/18/20 08:56 08:56 08:56 WBC RBC Hgb Hct MCV RDW Plt Count [place]ett % (Auto) Lymph # (Auto) PT INR APTT D-Dimer 1036.46 H Sodium Potassium Chloride Carbon Dioxide BUN Creatinine Glucose POC Glucose Calcium Phosphorus AST ALT Alkaline Phosphatase Lactate Dehydrogenase CK-MB (CK-2) CK-MB (CK-2) Rel Index Troponin T C-Reactive Protein NT-Pro-B Natriuret Pep 4777 H Albumin HDL Cholesterol TSH 5.520 H 07/18/20 07/18/20 07/18/20 10:36 18:56 19:00 WBC RBC Hgb Hct MCV RDW Plt Count [place] % (Auto) Lymph # (Auto) PT INR APTT D-Dimer Sodium Potassium Chloride Carbon Dioxide BUN Creatinine Glucose 101 H POC Glucose 66 L 63 L Calcium Phosphorus AST ALT Alkaline Phosphatase Lactate Dehydrogenase 212 H CK-MB (CK-2) CK-MB (CK-2) Rel Index Troponin T C-Reactive Protein 2.10 H NT-Pro-B Natriuret Pep Albumin HDL Cholesterol TSH 07/19/20 07/19/20 07/19/20 06:00 06:00 16:26 WBC 3.9 L RBC 2.34 L Hgb 7.5 L Hct 23.1 L MCV 99 H RDW 18.6 H Plt Count 52 L [place]ett % (Auto) 9.4 H Lymph # (Auto) 1.0 L PT INR APTT D-Dimer Sodium Potassium 5.3 H Chloride 115.8 H Carbon Dioxide BUN 52 H Creatinine 3.4 H Glucose 114 H POC Glucose 123 H Calcium 7.7 L Phosphorus AST 77 H ALT < 5 L Alkaline Phosphatase 678 H Lactate Dehydrogenase CK-MB (CK-2) CK-MB (CK-2) Rel Index Troponin T C-Reactive Protein NT-Pro-B Natriuret Pep Albumin 2.2 L HDL Cholesterol TSH 07/19/20 07/20/20 07/20/20 21:20 08:25 08:25 WBC 3.6 L RBC 2.54 L Hgb 8.0 L Hct 24.6 L MCV 97 H RDW 18.0 H Plt Count 47 L [place]ett % (Auto) 9.8 H Lymph # (Auto) 0.9 L PT INR APTT D-Dimer Sodium Potassium 5.4 H Chloride 115.8 H Carbon Dioxide BUN 56 H Creatinine 3.8 H Glucose 110 H POC Glucose 142 H Calcium 7.9 L Phosphorus AST ALT Alkaline Phosphatase Lactate Dehydrogenase CK-MB (CK-2) CK-MB (CK-2) Rel Index Troponin T C-Reactive Protein NT-Pro-B Natriuret Pep Albumin HDL Cholesterol TSH 07/20/20 07/20/20 07/20/20 11:27 16:34 21:27 WBC RBC Hgb Hct MCV RDW Plt Count [place] % (Auto) Lymph # (Auto) PT INR APTT D-Dimer Sodium Potassium Chloride Carbon Dioxide BUN Creatinine Glucose POC Glucose 136 H 186 H 175 H Calcium Phosphorus AST ALT Alkaline Phosphatase Lactate Dehydrogenase CK-MB (CK-2) CK-MB (CK-2) Rel Index Troponin T C-Reactive Protein NT-Pro-B Natriuret Pep Albumin HDL Cholesterol TSH 07/21/20 07/22/20 07/22/20 10:31 07:25 10:30 WBC 3.8 L RBC 2.53 L Hgb 7.9 L Hct 24.7 L MCV 98 H RDW 18.7 H Plt Count 35 L [place]ett % (Auto) Lymph # (Auto) PT INR APTT D-Dimer Sodium Potassium 5.3 H 5.6 H Chloride 115.0 H 115.1 H Carbon Dioxide 18 L BUN 59 H 61 H Creatinine 4.3 H 4.6 H Glucose 109 H POC Glucose Calcium 7.6 L 7.6 L Phosphorus AST ALT Alkaline Phosphatase Lactate Dehydrogenase CK-MB (CK-2) CK-MB (CK-2) Rel Index Troponin T C-Reactive Protein NT-Pro-B Natriuret Pep Albumin HDL Cholesterol TSH 07/22/20 07/22/20 07/22/20 10:30 10:30 10:30 WBC RBC Hgb Hct MCV RDW Plt Count [place] % (Auto) Lymph # (Auto) PT 15.9 H INR 1.27 H APTT 38.3 H D-Dimer Sodium 146 H Potassium 5.4 H Chloride 116.4 H Carbon Dioxide BUN 61 H Creatinine 4.6 H Glucose 115 H POC Glucose Calcium 7.5 L Phosphorus 5.80 H AST 66 H ALT < 5 L Alkaline Phosphatase 604 H Lactate Dehydrogenase CK-MB (CK-2) 10.9 H CK-MB (CK-2) Rel Index 16.2 H Troponin T 0.047 H C-Reactive Protein NT-Pro-B Natriuret Pep Albumin 2.1 L HDL Cholesterol TSH - Diagnostic Findings Chest x-ray: image reviewed Assessment and Plan 8 y/o male with acute respiratory failure secondary to worsening renal failure, volume overload and altered mental state 1. Needs HD 2. Wean FiO2 and PEEP as tolerated 3. Guarded prognosis CCT 31 minutes.
[2020-07-22 15:25] LABS: Total Cells Counted 100
[2020-07-22 15:27] LABS: Platelet Estimate Consistent w Auto
--- NOTE | 2020-07-22 16:18 | Consultation ---
History of Present Illness Consult date: 07/22/20 Consult reason: cardiac arrest History of present illness: This 70-year-old patient known to have diabetes mellitus, hypertension, alcohol abuse has cardiomyopathy with ejection fraction of 35 to 40% was noted to have a brief episode of unresponsiveness for which code was called. Patient did not lose his pulse or blood pressure. Patient was intubated nasotracheally and transferred to coronary care unit. Patient has a history of alcohol abuse and chronic kidney disease. He has been admitted several [address] He was seen by [facility] in 2019. The EKG has shown low QRS voltage complexes in the past with sinus bradycardia. Patient's echocardiogram was read by in June of this year. Patient has anasarca and has been given IV Lasix by scientist engineer. He has troponin elevation of 0.057. Past History Past Medical History: diabetes, hypertension, renal failure, stroke, other (Depression, recent MSSA bacteremia) Past Surgical History: No surgical history Social history: alcohol abuse, other (Substance abuse) Family history: no significant family history Medications and Allergies Allergies Allergy/AdvReac Type Severity Reaction Status Date / Time No Known Allergies Allergy Verified 06/19/19 17:53 Home Medications Medication Instructions Recorded Confirmed Last Taken Type FLUoxetine [PROzac] 20 mg PO QDAY #14 capsule 06/23/19 06/21/20 Unknown Rx traZODone [Desyrel] 50 mg PO QHS #10 tablet 06/23/19 06/21/20 Unknown Rx Folic Acid 1 mg PO DAILY #30 tablet 06/25/19 06/21/20 Unknown Rx Nicotine [Habitrol] 14 mg TD DAILY #30 patch 06/25/19 06/21/20 Unknown Rx Thiamine [Vitamin B-1] 100 mg PO QDAY #30 tablet 06/25/19 06/21/20 Unknown Rx Aspirin EC [Halfprin EC] 81 mg PO QDAY #30 tablet. 07/26/19 06/21/20 Unknown Rx levETIRAcetam [Keppra TAB] 750 mg PO BID #60 tablet 07/26/19 06/21/20 Unknown Rx Furosemide [Lasix TAB] 40 mg PO QDAY #30 tablet 04/28/20 06/21/20 Unknown Rx Famotidine [Pepcid] 20 mg PO BID #60 tablet 07/05/20 Unknown Rx Insulin NPH, Human [NovoLIN N] 5 unit SUB-Q BIDDIAB 30 Days #10 ml 07/05/20 06/21/20 Unknown Rx amLODIPine 10 mg PO QDAY #30 tablet 07/05/20 Unknown Rx carvediloL [Coreg] 12.5 mg PO BID #60 tablet 07/05/20 Unknown Rx hydrALAZINE [Apresoline TAB] 50 mg PO Q8HR #30 tablet 07/06/20 Unknown Rx Active Meds: Active Medications Albumin Human (Albumin Human 25% (12.5 Gm/50 Ml) Inj) 12.5 gm IV Q12HR [facility] Stop: 07/24/20 09:59 Last Admin: 07/22/20 13:51 Dose: 12.5 gm Documented by: Aspirin (Aspirin Ec 81 Mg Tab) 81 mg PO QDAY [facility] Last Admin: 07/22/20 13:53 Dose: 81 mg Documented by: Carvedilol (Carvedilol 12.5 Mg Tab) 12.5 mg PO BID [facility] Last Admin: 07/22/20 11:08 Dose: Not Given Documented by: Chlorothiazide Sodium (Chlorothiazide 500 Mg Vial) 500 mg IV BID [facility] Last Admin: 07/22/20 13:52 Dose: 500 mg Documented by: Famotidine (Famotidine 20 Mg Tab) 20 mg PO DAILY [facility] Last Admin: 07/22/20 13:53 Dose: 20 mg Documented by: Fentanyl (Fentanyl 100 Mcg/2 Ml Inj) 50 mcg IV Q10MIN PRN PRN Reason: ANALGESIA Fluoxetine HCl (Fluoxetine 20 Mg Cap) 20 mg PO QDAY [facility] Last Admin: 07/22/20 11:07 Dose: Not Given Documented by: Folic Acid (Folic Acid 1 Mg Tab) 1 mg PO DAILY [facility] Last Admin: 07/22/20 13:52 Dose: 1 mg Documented by: Hydralazine HCl (Hydralazine 25 Mg Tab) 50 mg PO Q8HR [facility] Last Admin: 07/22/20 13:55 Dose: 50 mg Documented by: Hydralazine HCl (Hydralazine 20 Mg/1 Ml Inj) 20 mg IV Q4HR PRN PRN Reason: Blood Pressure Hydrophilic Ointment (Lip Therapy Vaseline) 1 applic TP Q2HR PRN PRN Reason: Dry Lips Bumetanide 10 mg/ Sodium (Chloride) 100 mls @ 20 mls/hr IV Q10H [facility] Last Admin: 07/22/20 13:54 Dose: 20 mls/hr Documented by: Cefazolin Sodium (Ancef/Ns 1 Gm/50 Ml) 1 gm in 50 mls @ 100 mls/hr IV Q12H [facility] Stop: 07/24/20 19:59 Fentanyl Citrate (Fentanyl Drip Premix) 2,000 mcg in 100 mls @ 5.738 mls/hr IV TITR [facility]; Protocol Last Admin: 07/22/20 13:54 Dose: 4 mcg/kg/hr, 22.952 mls/hr Documented by: Propofol (Diprivan 10 Mg/Ml) 1,000 mg in 100 mls @ 3.443 mls/hr IV TITR [facility]; Protocol Levetiracetam (Levetiracetam 500 Mg/5 Ml Oral Liqd) 750 mg PO BID [facility] Last Admin: 07/22/20 13:53 Dose: 750 mg Documented by: Multi-Ingred Cream/Lotion/Oil/Oint (Mineral Oil/Petrolatum, White Ophth Oint 3.5 Gm) 1 applic OU Q4HR PRN PRN Reason: Dry Eye(s) Sodium Bicarbonate (Sodium Bicarbonate 650 Mg Tab) 1,300 mg PO BID [facility] Last Admin: 07/22/20 13:53 Dose: 1,300 mg Documented by: Thiamine HCl (Thiamine 100 Mg Tab) 100 mg PO QDAY [facility] Last Admin: 07/22/20 13:53 Dose: 100 mg Documented by: Trazodone HCl (Trazodone 50 Mg Tab) 50 mg PO QHS [facility] Last Admin: 07/21/20 21:32 Dose: 50 mg Documented by: Physical Examination Vital Signs Pulse Resp 53 L 13 07/18/20 07:17 07/18/20 07:17 General appearance: other (Intubated) Lungs: Positive: Decreased Breath Sounds Results 07/22/20 10:30 07/22/20 10:30 Cardiac Enzymes 07/22/20 07/22/20 Range/Units 10:30 10:30 AST 66 H (5-40) units/L CK-MB (CK-2) 10.9 H (0.0-4.0) ng/mL Coagulation 07/22/20 Range/Units 10:30 PT 15.9 H (12.2-14.9) Sec. INR 1.27 H (0.87-1.13) APTT 38.3 H (24.2-36.6) Sec. CBC 07/22/20 Range/Units 10:30 WBC 3.8 L (4.5-11.0) K/mm3 RBC 2.53 L (3.65-5.03) M/mm3 Hgb 7.9 L (11.8-15.2) gm/dl Hct 24.7 L (35.5-45.6) % Plt Count 35 L (140-440) K/mm3 Comprehensive Metabolic Panel 07/22/20 07/22/20 Range/Units 07:25 10:30 Sodium 144 146 H (137-145) mmol/L Potassium 5.6 H 5.4 H (3.6-5.0) mmol/L Chloride 115.1 H 116.4 H (98-107) mmol/L Carbon Dioxide 22 22 (22-30) mmol/L BUN 61 H 61 H (9-20) mg/dL Creatinine 4.6 H 4.6 H (0.8-1.3) mg/dL Glucose 109 H 115 H (75-100) mg/dL Calcium 7.6 L 7.5 L (8.4-10.2) mg/dL AST 66 H (5-40) units/L ALT < 5 L (7-56) units/L Alkaline Phosphatase 604 H (35-129) units/L Total Protein 6.4 (6.3-8.2) g/dL Albumin 2.1 L (3.9-5) g/dL EKG interpretations - Telemetry EKG Rhythm: Sinus Bradycardia (Low QRS voltage) Assessment and Plan - Patient Problems (1) Acute metabolic encephalopathy Current Visit: Yes Status: Acute (2) Acute on chronic renal failure Current Visit: Yes Status: Acute Qualifiers: Acute renal failure type: unspecified Chronic kidney disease stage: stage 3 (moderate) Chronic kidney disease stage 3 subtype: stage 3a (GFR 45-59) Qualified Code(s): N17.9 - Acute kidney failure, unspecified; N18.31 - Chronic kidney disease, stage 3a (3) Anasarca Current Visit: Yes Status: Acute (4) Cardiomyopathy Current Visit: Yes Status: Acute Qualifiers: Cardiomyopathy type: unspecified Qualified Code(s): I42.9 - Cardiomyopathy, unspecified Plan to address problem: Etiology of her cardiomyopathy is not clear. It could be related to diabetes, alcohol abuse and drug abuse . Patient has low QRS voltage complexes and amyloid is in DD . (5) Hyperkalemia Current Visit: Yes Status: Acute (6) Hypothermia Current Visit: Yes Status: Acute Qualifiers: Encounter type: initial encounter Qualified Code(s): T68.XXXA - Hypothermia, initial encounter (7) Sepsis Current Visit: Yes Status: Acute Qualifiers: Sepsis type: sepsis due to unspecified organism Sepsis acute organ dysfunction status: with acute organ dysfunction Severe sepsis acute organ dysfunction type: acute renal failure Acute renal failure type: unspecified Severe sepsis shock status: without septic shock Qualified Code(s): A41.9 - Sepsis, unspecified organism; R65.20 - Severe sepsis without septic shock; N17.9 - Acute kidney failure, unspecified (8) Thrombocytopenia Current Visit: Yes Status: Acute (9) Elevated troponin Current Visit: Yes Status: Acute Plan to address problem: This is probably due to renal insufficiency and sepsis. After patient is extubated we will schedule for ischemic work-up.
--- NOTE | 2020-07-22 16:39 | Event Note ---
I called patient's niece Amee Corcoran #[phone] as well as patient's aunt Viridiana Ambrosio [phone] and discussed with them in detail patient's critical condition respiratory failure requiring intubation change of status, and transfer to ICU, poor prognosis, CODE STATUS Both of them verbalized understanding, as tolerated questions, and encouraged him to call back if they have any new concerns
[2020-07-22] MEDS: ceFAZolin/NS 1 GM/50 ML 1 GM/50 ML BAG IV SCH (18:00)
[2020-07-22] MEDS: traZODone 50 MG TAB PO SCH (22:21)
[2020-07-23] MEDS ORDERED: DEXTROSE 50% IN WATER (25GM) 50 ML SYRINGE IV PRN (03:28)
[2020-07-23] MEDS ORDERED: DEXTROSE 50% IN WATER (25GM) 50 ML SYRINGE IV ONE (03:48)
[2020-07-23] MEDS: fentaNYL DRIP Premix 2,000 MCG/100 ML BAG IV SCH (05:00)
[2020-07-23] MEDS ORDERED: ATROPINE 0.1% (1 MG/10 ML) CARDIAC SYRINGE ONE ×2 (05:53→19:59)
[2020-07-23] MEDS: ceFAZolin/NS 1 GM/50 ML 1 GM/50 ML BAG IV SCH (06:07)
[2020-07-23] MEDS ORDERED: ATROPINE 0.1% (1 MG/10 ML) CARDIAC SYRINGE IV ONE (06:09)
[2020-07-23 06:27] LABS: Hematocrit 22.7 % (35.5-45.6); Hemoglobin 7.5 gm/dl (11.8-15.2); Mean Corpuscular HGB Conc 33 % (32-34); Mean Corpuscular Volume 96 fl (84-94); Red Blood Count 2.36 M/mm3 (3.65-5.03); Red Cell Distribution Width 18.9 % (13.2-15.2)
[2020-07-23] MEDS: hydrALAZINE 25 MG TAB PO SCH ×3 (06:42→22:11)
[2020-07-23 06:43] LABS: Platelet Count 42 K/mm3 (140-440)
[2020-07-23] MEDS: BUMETANIDE 10 MG in SODIUM CHLORIDE 0.9% 60 ML IV SCH (07:10)
[2020-07-23] MEDS ORDERED: DOPamine/D5W 800 MG/250 ML 800 MG/250 ML BAG IV SCH (08:00)
[2020-07-23 08:30] LABS: Calcium 7.3 mg/dL (8.4-10.2)
[2020-07-23] MEDS ORDERED: ATROPINE 0.1% (1 MG/10 ML) CARDIAC SYRINGE IV PRN (09:03)
--- NOTE | 2020-07-23 09:05 | Progress Note ---
Assessment and Plan Assessment and plan: --Acute hypoxic respiratory failure: Requiring intubation and mechanical ventilation Continue ventilatory support, nebulizers Pulmonary critical following --Non-STEMI-2 : probably secondary to respiratory failure, chronic kidney disease Patient has risk factors, cardiology following, --Bradycardia; Management per cardiology Hold beta-blockers,Atropine as needed --Chronic kidney disease; nephrology Recommend hemodialysis --Hyperkalemia; IV calcium gluconate, Kayexalate Monitor electrolytes, nephrology following --hyponatremia; fluid overload secondary to chronic kidney disease, --Acute toxic metabolic encephalopathy; Check CT head without contrast --Severe protein calorie malnutrition/hypoalbuminemia, nutrition supplements, Nutrition consult --Thrombocytopenia; check HIT antibodies --Sepsis/SIRS/hypothermia; Warm blankets, treat the underlying sepsis IV antibiotics, follow cultures ID consult if needed --h/o MSSA bacteremia on treatment We will continue Unasyn 2 g every 8 hourly ID recommended total 6 weeks 07/24/2020 --h/o right calf abscess: s/p surgical procedure/wide excision 06/2020 On long-term antibiotics --PUI/COVID-19 test negative Supportive care --Type 2 diabetes mellitus; Accu-Chek sliding scale coverage ADA diet Long-acting insulin, check HbA1c --Acute plan chronic kidney disease3; Gentle hydration, monitor renal function Avoid nephrotoxins, nephrology consulted --Congestive heart failure; Continue antifailure medications Input output monitoring, diuretics Cardiology consult if needed --History of seizure disorder; Seizure precautions, continue Keppra --History of CVA; with residual weakness Fall precautions, PT OT as needed --DVT prophylaxis;thrombocytopenia, no anticoagulation Continue SCDs --Full CODE STATUS --Restraint for safety I called patient's niece Amee Corcoran #[phone] as well as patient's aunt Viridiana Ambrosio [phone] On 07/22/2020 and discussed in detail patient's critical condition respiratory failure requiring intubation change of status, Verbalized understanding The high probability of a clinically significant, sudden or life threatening deterioration of the [multi] system(s) required my full and direct attention, intervention and personal management. The aggregate critical care time was [40] minutes. This time is in addition to time spent performing reported procedures but includes the following: [x] Data Review and interpretation [x] Patient assessment and monitoring of vital signs [x] Documentation [x] Medication orders and management Hospital course; 07/19/2020; unable to pass Ayala catheter, Consulted urology, continue supportive care, COVID-19 test negative 07/20/2020; urology evaluation recommendation noted and appreciated Ayala catheter was inserted by urology, draining well MSSA bacteremia on long-term antibiotics 07/21/2020; patient is lethargic CT head without contrast, no acute abnormality Patient is afebrile 07/22/2020; patient had acute respiratory failure this morning JEFFERY IBARRA was called, patient was intubated on ventilatory support Pulmonary critical consulted, family patients aunt informed 07/23/2020; patient has severe bradycardia this morning, received atropine Cardiology following. Beta-blockers held, electrolytes corrected Patient's heart rate improved to 50s and 60s Cardiology following Nephrology planning hemodialysis trying to get consent from family History Interval history: I have seen and examined the patient at the bedside Patient's chart and medications reviewed Nurse reports that patient had an episode of severe bradycardia this morning Received atropine with mild improvement, Cardiology following Patient remains intubated on ventilatory support Vital signs noted Hospitalist Physical - Constitutional Vitals: Temp Pulse Resp BP Pulse Ox 95.9 F L 79 10 L 202/94 100 07/23/20 04:00 07/23/20 08:00 07/23/20 06:30 07/23/20 08:00 07/23/20 08:00 General appearance: Present: mild distress, well-nourished, obese, other (Lethargic) - EENT Eyes: Present: PERRL, EOM intact - Neck Neck: Present: supple, normal ROM, other (ET tube and Dobbhoff in place) - Respiratory Respiratory effort: normal, labored - Extremities Extremities: no ischemia Extremity abnormal: edema - Abdominal General gastrointestinal: soft, non-tender, non-distended, normal bowel sounds, other (Severe abdominal edema) - Integumentary Integumentary: Present: clear, warm - Psychiatric Psychiatric: other (Intubated on vent) - Neurologic Neurologic: other (Intubated on vent) HEART Score - HEART Score Troponin: Troponin T 0.047 ng/mL (0.00-0.029) H 07/22/20 10:30 Results - Labs CBC & Chem 7: 07/23/20 06:05 07/23/20 06:05 Labs: Laboratory Last Values WBC 5.6 K/mm3 (4.5-11.0) 07/23/20 06:05 RBC 2.36 M/mm3 (3.65-5.03) L 07/23/20 06:05 Hgb 7.5 gm/dl (11.8-15.2) L 07/23/20 06:05 Hct 22.7 % (35.5-45.6) L 07/23/20 06:05 MCV 96 fl (84-94) H 07/23/20 06:05 MCH 32 pg (28-32) 07/23/20 06:05 MCHC 33 % (32-34) 07/23/20 06:05 RDW 18.9 % (13.2-15.2) H 07/23/20 06:05 Plt Count 42 K/mm3 (140-440) L 07/23/20 06:05 Lymph % (Auto) 25.4 % (13.4-35.0) 07/20/20 08:25 [place] % (Auto) 9.8 % (0.0-7.3) H 07/20/20 08:25 Eos % (Auto) 0.7 % (0.0-4.3) 07/20/20 08:25 Baso % (Auto) 0.1 % (0.0-1.8) 07/20/20 08:25 Lymph # (Auto) 0.9 K/mm3 (1.2-5.4) L 07/20/20 08:25 [place] # (Auto) 0.3 K/mm3 (0.0-0.8) 07/20/20 08:25 Eos # (Auto) 0.0 K/mm3 (0.0-0.4) 07/20/20 08:25 Baso # (Auto) 0.0 K/mm3 (0.0-0.1) 07/20/20 08:25 Add Manual Diff Complete 07/22/20 10:30 Total Counted 100 07/22/20 10:30 Seg Neutrophils % 64.0 % (40.0-70.0) 07/20/20 08:25 Seg Neuts % (Manual) 92.0 % (40.0-70.0) H 07/22/20 10:30 Lymphocytes % (Manual) 6.0 % (13.4-35.0) L 07/22/20 10:30 Monocytes % (Manual) 2.0 % (0.0-7.3) 07/22/20 10:30 Nucleated RBC % 13.0 % (0.0-0.9) H 07/22/20 10:30 Seg Neutrophils # 2.3 K/mm3 (1.8-7.7) 07/20/20 08:25 Seg Neutrophils # Man 3.5 K/mm3 (1.8-7.7) 07/22/20 10:30 Band Neutrophils # 0.0 K/mm3 07/22/20 10:30 Lymphocytes # (Manual) 0.2 K/mm3 (1.2-5.4) L 07/22/20 10:30 Abs React Lymphs (Man) 0.0 K/mm3 07/22/20 10:30 Monocytes # (Manual) 0.1 K/mm3 (0.0-0.8) 07/22/20 10:30 Eosinophils # (Manual) 0.0 K/mm3 (0.0-0.4) 07/22/20 10:30 Basophils # (Manual) 0.0 K/mm3 (0.0-0.1) 07/22/20 10:30 Metamyelocytes # 0.0 K/mm3 07/22/20 10:30 Myelocytes # 0.0 K/mm3 07/22/20 10:30 Promyelocytes # 0.0 K/mm3 07/22/20 10:30 Blast Cells # 0.0 K/mm3 07/22/20 10:30 WBC Morphology Not Reportable 07/22/20 10:30 Hypersegmented Neuts Not Reportable 07/22/20 10:30 Hyposegmented Neuts Not Reportable 07/22/20 10:30 Hypogranular Neuts Not Reportable 07/22/20 10:30 Smudge Cells Not Reportable 07/22/20 10:30 Toxic Granulation Not Reportable 07/22/20 10:30 Toxic Vacuolation Not Reportable 07/22/20 10:30 Dohle Bodies Not Reportable 07/22/20 10:30 Pelger-Huet Anomaly Not Reportable 07/22/20 10:30 Clint Rods Not Reportable 07/22/20 10:30 Platelet Estimate Consistent w auto 07/22/20 10:30 Clumped Platelets Not Reportable 07/22/20 10:30 Plt Clumps, EDTA Not Reportable 07/22/20 10:30 Large Platelets Not Reportable 07/22/20 10:30 Giant Platelets Not Reportable 07/22/20 10:30 Platelet Satelliting Not Reportable 07/22/20 10:30 Plt Morphology Comment Not Reportable 07/22/20 10:30 RBC Morphology Not Reportable 07/22/20 10:30 Dimorphic RBCs Not Reportable 07/22/20 10:30 Polychromasia Not Reportable 07/22/20 10:30 Hypochromasia Not Reportable 07/22/20 10:30 Poikilocytosis Not Reportable 07/22/20 10:30 Anisocytosis Not Reportable 07/22/20 10:30 Microcytosis Rare 07/22/20 10:30 Macrocytosis Not Reportable 07/22/20 10:30 Spherocytes Not Reportable 07/22/20 10:30 Pappenheimer Bodies Not Reportable 07/22/20 10:30 Sickle Cells Not Reportable 07/22/20 10:30 Target Cells Not Reportable 07/22/20 10:30 Tear Drop Cells Not Reportable 07/22/20 10:30 Ovalocytes Not Reportable 07/22/20 10:30 Helmet Cells Not Reportable 07/22/20 10:30 [place] Bodies Not Reportable 07/22/20 10:30 [place] Rings Not Reportable 07/22/20 10:30 [place] Cells Not Reportable 07/22/20 10:30 Bite Cells Not Reportable 07/22/20 10:30 Crenated Cell Not Reportable 07/22/20 10:30 Elliptocytes Not Reportable 07/22/20 10:30 Acanthocytes (Spur) Not Reportable 07/22/20 10:30 Rouleaux Not Reportable 07/22/20 10:30 Hemoglobin C Crystals Not Reportable 07/22/20 10:30 Schistocytes Not Reportable 07/22/20 10:30 Malaria parasites Not Reportable 07/22/20 10:30 Carl Bodies Not Reportable 07/22/20 10:30 Hem Pathologist Commnt No 07/22/20 10:30 PT 15.9 Sec. (12.2-14.9) H 07/22/20 10:30 INR 1.27 (0.87-1.13) H 07/22/20 10:30 APTT 38.3 Sec. (24.2-36.6) H 07/22/20 10:30 D-Dimer 1036.46 ng/mlDDU (0-234) H 07/18/20 08:56 ABG pH 7.367 (7.320-7.450) 07/23/20 03:38 POC ABG pCO2 29.7 mmHg (32.0-48.0) L 07/23/20 03:38 POC ABG pO2 267.3 mmHg (83-108) H 07/23/20 03:38 POC ABG HCO3 16.7 07/23/20 03:38 ABG O2 Saturation 99.7 (0-100) 07/23/20 03:38 POC ABG Base Excess -7.8 07/23/20 03:38 ABG Hemoglobin 8.2 (12.0-17.5) L 07/23/20 03:38 ABG Oxyhemoglobin 98.2 (94-98) H 07/23/20 03:38 ABG Methemoglobin 0.1 (0.0-1.5) 07/23/20 03:38 ABG Sodium 143.5 mmol/L (136.0-145.0) 07/23/20 03:38 ABG Potassium 5.4 mmol/L (3.40-4.50) H 07/23/20 03:38 ABG Chloride 122.0 mmol/L (98-107) H 07/23/20 03:38 ABG Glucose 101 mg/dL (65-95) H 07/23/20 03:38 Carboxyhemoglobin 1.4 (0.5-1.5) 07/23/20 03:38 FiO2 % 100 07/23/20 03:38 Sodium 142 mmol/L (137-145) 07/23/20 06:05 Potassium 5.6 mmol/L (3.6-5.0) H 07/23/20 06:05 Chloride 114.1 mmol/L (98-107) H 07/23/20 06:05 Carbon Dioxide 17 mmol/L (22-30) L 07/23/20 06:05 Anion Gap 17 mmol/L 07/23/20 06:05 BUN 62 mg/dL (9-20) H 07/23/20 06:05 Creatinine 4.6 mg/dL (0.8-1.3) H 07/22/20 10:30 Estimated GFR 16 ml/min 07/22/20 10:30 BUN/Creatinine Ratio 13 % 07/22/20 10:30 Glucose 215 mg/dL (75-100) H 07/23/20 06:05 POC Glucose 65 mg/dL (70-105) L 07/23/20 03:47 Lactic Acid 0.80 mmol/L (0.7-2.0) 07/18/20 08:56 Calcium 7.3 mg/dL (8.4-10.2) L 07/23/20 06:05 Phosphorus 5.80 mg/dL (2.5-4.5) H 07/22/20 10:30 Magnesium 2.10 mg/dL (1.7-2.3) 07/22/20 10:30 Ferritin 198.6 ng/mL (30.0-300.0) 07/18/20 10:36 Total Bilirubin 0.30 mg/dL (0.1-1.2) 07/22/20 10:30 Direct Bilirubin 0.2 mg/dL (0-0.2) 07/19/20 06:00 Indirect Bilirubin 0.2 mg/dL 07/19/20 06:00 AST 66 units/L (5-40) H 07/22/20 10:30 ALT < 5 units/L (7-56) L 07/22/20 10:30 Alkaline Phosphatase 604 units/L (35-129) H 07/22/20 10:30 Ammonia 41.0 umol/L (25-60) 07/18/20 08:56 Lactate Dehydrogenase 212 units/L (91-180) H 07/18/20 10:36 Total Creatine Kinase 67 units/L (55-170) 07/22/20 10:30 CK-MB (CK-2) 10.9 ng/mL (0.0-4.0) H 07/22/20 10:30 CK-MB (CK-2) Rel Index 16.2 (0-4) H 07/22/20 10:30 Troponin T 0.047 ng/mL (0.00-0.029) H 07/22/20 10:30 C-Reactive Protein 2.10 mg/dL (0.00-1.30) H 07/18/20 10:36 NT-Pro-B Natriuret Pep 4777 pg/mL (0-900) H 07/18/20 08:56 Total Protein 6.4 g/dL (6.3-8.2) 07/22/20 10:30 Albumin 2.1 g/dL (3.9-5) L 07/22/20 10:30 Albumin/Globulin Ratio 0.5 % 07/22/20 10:30 Triglycerides 65 mg/dL (2-149) 07/18/20 08:56 Cholesterol 157 mg/dL (50-199) 07/18/20 08:56 LDL Cholesterol Direct 95 mg/dL (50-130) 07/18/20 08:56 HDL Cholesterol 67 mg/dL (40-59) H 07/18/20 08:56 Cholesterol/HDL Ratio 2.34 % 07/18/20 08:56 Procalcitonin 0.10 ng/mL (<0.15) 07/18/20 10:36 TSH 5.520 mlU/mL (0.270-4.200) H 07/18/20 08:56 Free T4 0.84 ng/dL (0.76-1.46) 07/18/20 08:56 Arterial Blood Glucose 101 mg/dL (65-95) H 07/23/20 03:38 Arterial Blood Ionized Calcium 4.4 mg/dL (4.6-5.3) L 07/23/20 03:38 Random Vancomycin 16.1 ug/mL (0-40.0) 07/20/20 08:25 Coronavirus (PCR) Negative (Negative) 07/18/20 12:07 Blood Type A POSITIVE 07/18/20 08:56 Antibody Screen Negative 07/18/20 08:56 Microbiology: Microbiology 07/22/20 10:28 Tracheal Aspirate Sputum Culture - Preliminary 07/18/20 10:30 Urine,Catheterized - Straight Catheter Urine Culture - Final NO GROWTH AFTER 48 HOURS 07/18/20 09:00 Peripheral/Venous Blood Culture - Preliminary NO GROWTH AFTER 4 DAYS Ayala/IV: Voiding Method Indwelling Catheter Active Medications - Current Medications Current Medications: Generic Name Dose Route Start Last Admin Trade Name Freq PRN Reason Stop Dose Admin Albumin Human 12.5 gm 07/22/20 10:00 07/22/20 22:21 Albumin Human 25% (12.5 Gm/50 Ml) Inj IV 07/24/20 09:59 12.5 gm Q12HR JODIE Administration Aspirin 81 mg 07/19/20 10:00 07/22/20 13:53 Aspirin Ec 81 Mg Tab PO 81 mg QDAY JODIE Administration Carvedilol 12.5 mg 07/18/20 22:00 07/22/20 22:11 Carvedilol 12.5 Mg Tab PO Not Given BID JODIE Chlorothiazide Sodium 500 mg 07/21/20 20:00 07/22/20 22:22 Chlorothiazide 500 Mg Vial IV 500 mg BID JODIE Administration Dextrose 50 ml 07/23/20 03:28 07/23/20 06:00 Dextrose 50% In Water (25gm) 50 Ml Syringe IV 50 ml Q30MIN PRN Administration Hypoglycemia Protocol Famotidine 20 mg 07/18/20 22:00 07/22/20 13:53 Famotidine 20 Mg Tab PO 20 mg DAILY JODIE Administration Fentanyl 50 mcg 07/22/20 10:02 Fentanyl 100 Mcg/2 Ml Inj IV Q10MIN PRN ANALGESIA Fluoxetine HCl 20 mg 07/19/20 10:00 07/22/20 11:07 Fluoxetine 20 Mg Cap PO Not Given QDAY JODIE Folic Acid 1 mg 07/19/20 10:00 07/22/20 13:52 Folic Acid 1 Mg Tab PO 1 mg DAILY JODIE Administration Hydralazine HCl 50 mg 07/18/20 14:00 07/23/20 06:42 Hydralazine 25 Mg Tab PO Not Given Q8HR JODIE Hydralazine HCl 20 mg 07/22/20 14:02 Hydralazine 20 Mg/1 Ml Inj IV Q4HR PRN Blood Pressure Hydrophilic Ointment 1 applic 07/22/20 10:02 Lip Therapy Vaseline TP Q2HR PRN Dry Lips Bumetanide 10 mg/ Sodium 100 mls @ 20 mls/hr 07/21/20 15:00 07/23/20 07:10 Chloride IV 20 mls/hr Q10H JODIE Administration Cefazolin Sodium 1 gm in 50 mls @ 100 mls/hr 07/22/20 18:00 07/23/20 07:08 Ancef/Ns 1 Gm/50 Ml IV 07/24/20 19:59 Infused Q12H JODIE Infusion Fentanyl Citrate 2,000 mcg in 100 mls @ 5.738 mls/hr 07/22/20 11:00 07/23/20 05:30 Fentanyl Drip Premix IV 0 mcg/kg/hr TITR JODIE 0 mls/hr Titration Protocol 1 MCG/KG/HR Propofol 1,000 mg in 100 mls @ 3.443 mls/hr 07/22/20 12:00 Diprivan 10 Mg/Ml IV TITR JODIE Protocol 5 MCG/KG/MIN Dopamine HCl/Dextrose 800 mg in 250 mls @ 4.304 mls/hr 07/23/20 08:00 07/23/20 08:45 Intropin Drip 800 Mg/D5w 250 Ml IV 0 mcg/kg/min TITR JODIE 0 mls/hr Titration Protocol 2 MCG/KG/MIN Levetiracetam 750 mg 07/18/20 22:00 07/22/20 22:20 Levetiracetam 500 Mg/5 Ml Oral Liqd PO 750 mg BID JODIE Administration Multi-Ingred Cream/Lotion/Oil/Oint 1 applic 07/22/20 10:02 Mineral Oil/Petrolatum, White Ophth Oint 3.5 Gm OU Q4HR PRN Dry Eye(s) Sodium Bicarbonate 1,300 mg 07/21/20 20:00 07/22/20 22:21 Sodium Bicarbonate 650 Mg Tab PO 1,300 mg BID JODIE Administration Thiamine HCl 100 mg 07/19/20 10:00 07/22/20 13:53 Thiamine 100 Mg Tab PO 100 mg QDAY JODIE Administration Trazodone HCl 50 mg 07/18/20 22:00 07/22/20 22:21 Trazodone 50 Mg Tab PO 50 mg QHS JODIE Administration Nutrition/Malnutrition Assess - Dietary Evaluation Nutrition/Malnutrition Findings: Nutrition Notes Start: 07/19/20 09:53 Freq: Status: Active Protocol: Document 07/22/20 12:42 JORDAN (Rec: 07/22/20 12:55 [facility] [id number]) Nutrition Notes Need for Assessment generated from: MD Order Initial or Follow up Reassessment Current Diagnosis CKD(stage I-IV),Diabetes, Sepsis,Heart Failure, Respiratory Failure,Stroke Other Pertinent Diagnosis Acute toxic metabolic encephalopathy, Bradycardia, ( R) LE wound, Anasarca Current Diet Renal + Nepro once daily Labs/Tests Na 146 K 5.4 BUN 61 Cr 4.6 Phos 5.8 Elevated cardiac enzymes Pertinent Medications 25% human Alb, Bumex gtt, Folic acid, Thiamine, Propofol at 3.443ml/hr (provides 91 kcal) Height 5 ft 9 in Weight 114.76 kg [place] Body Weight (kg) 72.72 BMI 37.3 Weight change and time frame Wt likely r/t volume overload Weight Status Obese Subjective/Other Information RD consulted to evaluate nutritional intake. He coded this am, was intubated then transferred to ICU. He tested (-) for COVID-19. Per nephrology, if pt remains oligoanuric and renal failure progresses, he will need renal replacement therapy. Burn Absent Trauma Absent Minimum of two criteria No #1 Nutrition Diagnosis Inadequate energy intake, Inadequate oral intake Comments: CHANGED Etiology mech ventilation As Evidenced by Signs and Symptoms pt NPO Diagnosis Progress(for reassessment Continues documentation) Is patient on ventilator? Yes Is Patient Ambulatory and/or Out of Bed No REE-([facility]-confined to bed) 2330.148 Kcal/Kg value to use for calculation 16 Approximate Energy Requirements Using 1836 kcal/Kg Calculation Used for Recommendations Kcal/kg Additional Notes Pro needs 0.8-0.9g/kg adjBW: 75-84g/day Fluid needs 1-1.5L/day Nutrition Intervention Change Diet Order: D/C current diet order Nutrition Support: If necessary, Nepro at 40ml/hr . Add Supplement/Snack (indicate name/kcal D/C /protein ) Goal #1 Start EN support to meet nutrient needs Follow-Up By: 07/23/20 Additional Comments F/U: TF consult, vent status, renal function, propofol
[2020-07-23] MEDS ORDERED: SODIUM POLYSTYRENE 15 GM/60 ML ORAL LIQD PO ONE (10:00)
[2020-07-23] MEDS ORDERED: CALCIUM GLUCONATE 1,000 MG in SODIUM CHLORIDE 0.9% 100 ML IV ONE (10:00)
[2020-07-23] MEDS: ALBUMIN HUMAN 25% (12.5 GM/50 ML) INJ IV SCH ×2 (10:06→22:12)
--- NOTE | 2020-07-23 11:02 | XRay Report ---
CHEST 1 VIEW INDICATION: f/u pulm infilt/intubated. COMPARISON: Yesterday FINDINGS: Support devices: Stable Heart: Within normal limits. Lungs/Pleura: There is better inspiration although small bilateral pleural effusions and bibasilar op acities appear grossly unchanged. No pneumothorax. Additional findings: None. IMPRESSION: No significant interval change. Signer Name: Sloan Rodríguez Jr, MD Signed: 07/23/2020 10:57 AM Workstation Name: [id number]
--- NOTE | 2020-07-23 11:06 | Progress Note ---
Assessment and Plan - Patient Problems (1) Acute on chronic renal failure Current Visit: Yes Status: Acute Qualifiers: Acute renal failure type: unspecified Chronic kidney disease stage: stage 3 (moderate) Chronic kidney disease stage 3 subtype: stage 3a (GFR 45-59) Qualified Code(s): N17.9 - Acute kidney failure, unspecified; N18.31 - Chronic kidney disease, stage 3a Plan to address problem: Acute on chronic kidney disease which is still worsening. Patient not responding to IV diuretics. Hyperkalemia metabolic acidosis persist. Need to start dialysis. I called patient's on Viridiana Ambrosio at [phone]. Discussed condition. She said I have to speak to the brother keep: Who is the one making decisions. I called Ge at [phone]. Discussed patient's condition and need for dialysis. He agrees to a trial of dialysis. They will make a decision about long-term dialysis if needed in the future. (2) Anasarca Current Visit: Yes Status: Acute Plan to address problem: Patient has not responded to aggressive IV diuretics. We will start dialysis. (3) Hyperkalemia Current Visit: Yes Status: Acute Plan to address problem: Hyperkalemia persist despite medical management. 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 Patient has not responded to intravenous diuretics. Needs dialysis for fluid removal. (5) Sepsis Current Visit: Yes Status: Suspected Qualifiers: Sepsis type: sepsis due to unspecified organism Sepsis acute organ dysfunc tion status: with acute organ dysfunction Severe sepsis acute organ dysfu nction type: acute renal failure Acute renal failure type: unspecified Severe sepsis shock status: without septic shock Qualified Code(s): A41.9 - Sepsis, unspecified organism; R65.20 - Severe sepsis without septic shock; N17.9 - Acute kidney failure, unspecified Plan to address problem: Continue empiric antibiotic. Follow-up cultures. (6) Hypertensive chronic kidney disease with stage 1 through stage 4 chronic kidney disease, or unspecified chronic kidney disease Current Visit: No Status: Acute Plan to address problem: Blood pressure is low. Follow-up (7) Type 2 diabetes mellitus with diabetic nephropathy Current Visit: No Status: Acute Plan to address problem: Blood sugar management by primary attending Subjective Date of service: 07/24/20 Principal diagnosis: RACQUEL Interval history: Patient seen lying in bed. Intubated on the ventilator. Not responding to Bumex drip. Renal indices worsening and potassium still high. Objective - Exam Narrative Exam: Middle-aged -Filipino male lying in bed intubated on ventilator HEENT: NCAT, endotracheal tube intact Neck: Supple, no venous distention CVS: S1S2 RRR with no murmur, rub or gallop Chest: Clear to auscultation Abdomen: Protuberant, soft, nontender, no organomegaly, bowel sounds are present Extremities: 2-3+ pitting edema in both legs with hyperpigmentation Genitourinary deferred Skin with hyperpigmentation especially in the legs and feet Neuro: Unresponsive - Vital Signs Vital signs: Vital Signs - 12hr 07/22/20 07/22/20 07/22/20 23:15 23:28 23:30 Temperature Pulse Rate 56 L 55 L 56 L Pulse Rate [ From Monitor] Respiratory 21 22 22 Rate Blood Pressure 122/75 122/75 122/75 O2 Sat by Pulse 100 100 98 Oximetry 07/22/20 07/22/20 07/22/20 23:39 23:44 23:46 Temperature Pulse Rate 55 L 55 L 55 L Pulse Rate [ From Monitor] Respiratory 22 23 Rate Blood Pressure 122/75 125/76 O2 Sat by Pulse 100 100 100 Oximetry 07/23/20 07/23/20 07/23/20 00:00 00:15 00:30 Temperature Pulse Rate 56 L 56 L 56 L Pulse Rate [ 56 L From Monitor] Respiratory 21 22 22 Rate Blood Pressure 115/85 124/72 115/71 O2 Sat by Pulse 98 100 100 Oximetry 07/23/20 07/23/20 07/23/20 00:46 01:00 01:15 Temperature Pulse Rate 56 L 56 L 57 L Pulse Rate [ From Monitor] Respiratory 22 22 22 Rate Blood Pressure 113/77 124/72 111/70 O2 Sat by Pulse 100 100 100 Oximetry 07/23/20 07/23/20 07/23/20 01:30 01:46 02:00 Temperature Pulse Rate 57 L 57 L 57 L Pulse Rate [ From Monitor] Respiratory 22 22 22 Rate Blood Pressure 104/70 130/81 130/81 O2 Sat by Pulse 98 100 Oximetry 07/23/20 07/23/20 07/23/20 02:15 02:30 02:45 Temperature Pulse Rate 51 L 57 L 46 L Pulse Rate [ From Monitor] Respiratory 21 20 16 Rate Blood Pressure 120/72 125/74 130/77 O2 Sat by Pulse 100 100 100 Oximetry 07/23/20 07/23/20 07/23/20 03:00 03:15 03:30 Temperature Pulse Rate 57 L 59 L 59 L Pulse Rate [ From Monitor] Respiratory 14 13 20 Rate Blood Pressure 125/77 108/76 108/76 O2 Sat by Pulse 100 100 100 Oximetry 07/23/20 07/23/20 07/23/20 03:46 03:54 04:00 Temperature 95.9 F L Pulse Rate 58 L 54 L 60 Pulse Rate [ 60 From Monitor] Respiratory 18 13 Rate Blood Pressure 110/76 125/77 112/78 O2 Sat by Pulse 98 100 100 Oximetry 07/23/20 07/23/20 07/23/20 04:15 04:30 04:45 Temperature Pulse Rate 59 L 59 L 58 L Pulse Rate [ From Monitor] Respiratory 18 12 16 Rate Blood Pressure 125/61 131/64 141/57 O2 Sat by Pulse 99 98 98 Oximetry 07/23/20 07/23/20 07/23/20 05:00 05:16 05:30 Temperature Pulse Rate 58 L 59 L 55 L Pulse Rate [ From Monitor] Respiratory 18 13 18 Rate Blood Pressure 113/62 119/72 119/72 O2 Sat by Pulse 98 100 Oximetry 07/23/20 07/23/20 07/23/20 05:46 06:00 06:16 Temperature Pulse Rate 57 L 60 63 Pulse Rate [ From Monitor] Respiratory 13 9 L 12 Rate Blood Pressure 132/68 139/49 156/42 O2 Sat by Pulse 97 96 100 Oximetry 07/23/20 07/23/20 07/23/20 06:30 06:42 06:45 Temperature Pulse Rate 63 60 63 Pulse Rate [ From Monitor] Respiratory 10 L 9 L Rate Blood Pressure 125/51 89/71 105/57 O2 Sat by Pulse 97 Oximetry 07/23/20 07/23/20 07/23/20 07:00 07:15 07:30 Temperature Pulse Rate 63 62 38 L Pulse Rate [ From Monitor] Respiratory 9 L 9 L 12 Rate Blood Pressure 99/51 103/54 130/52 O2 Sat by Pulse 95 98 100 Oximetry 07/23/20 07/23/20 07/23/20 07:45 08:00 08:15 Temperature Pulse Rate 45 L 77 85 Pulse Rate [ From Monitor] Respiratory 20 16 20 Rate Blood Pressure 157/64 129/68 205/92 O2 Sat by Pulse 98 100 100 Oximetry 07/23/20 07/23/20 07/23/20 08:30 08:45 09:00 Temperature Pulse Rate 76 66 62 Pulse Rate [ From Monitor] Respiratory 21 19 16 Rate Blood Pressure 190/94 148/64 152/59 O2 Sat by Pulse 97 97 99 Oximetry 07/23/20 07/23/20 07/23/20 09:15 09:30 09:46 Temperature Pulse Rate 61 60 59 L Pulse Rate [ From Monitor] Respiratory 13 15 18 Rate Blood Pressure 117/56 121/67 122/69 O2 Sat by Pulse 98 99 100 Oximetry 07/23/20 07/23/20 07/23/20 10:00 10:15 10:30 Temperature Pulse Rate 58 L 57 L 57 L Pulse Rate [ From Monitor] Respiratory 18 21 15 Rate Blood Pressure 106/63 118/67 118/76 O2 Sat by Pulse 100 100 98 Oximetry 07/23/20 07/23/20 10:45 11:00 Temperature Pulse Rate 57 L 57 L Pulse Rate [ From Monitor] Respiratory 23 19 Rate Blood Pressure 136/80 137/80 O2 Sat by Pulse 100 98 Oximetry - Lab 07/24/20 Unknown 07/24/20 04:00 Most recent lab results ABG pH 7.367 (7.320-7.450) 07/23/20 03:38 ABG O2 Saturation 99.7 (0-100) 07/23/20 03:38 Calcium 7.3 mg/dL (8.4-10.2) L 07/23/20 06:05 Phosphorus 5.80 mg/dL (2.5-4.5) H 07/22/20 10:30 Magnesium 2.10 mg/dL (1.7-2.3) 07/22/20 10:30 Medications & Allergies - Medications Allergies/Adverse Reactions: Allergies No Known Allergies Allergy (Verified 06/19/19 17:53) Home Medications: Home Medications Medication Instructions Recorded Confirmed Last Taken Type FLUoxetine [PROzac] 20 mg PO QDAY #14 capsule 06/23/19 06/21/20 Unknown Rx traZODone [Desyrel] 50 mg PO QHS #10 tablet 06/23/19 06/21/20 Unknown Rx Folic Acid 1 mg PO DAILY #30 tablet 06/25/19 06/21/20 Unknown Rx Nicotine [Habitrol] 14 mg TD DAILY #30 patch 06/25/19 06/21/20 Unknown Rx Thiamine [Vitamin B-1] 100 mg PO QDAY #30 tablet 06/25/19 06/21/20 Unknown Rx Aspirin EC [Halfprin EC] 81 mg PO QDAY #30 tablet. 07/26/19 06/21/20 Unknown Rx levETIRAcetam [Keppra TAB] 750 mg PO BID #60 tablet 07/26/19 06/21/20 Unknown Rx Furosemide [Lasix TAB] 40 mg PO QDAY #30 tablet 04/28/20 06/21/20 Unknown Rx Famotidine [Pepcid] 20 mg PO BID #60 tablet 07/05/20 Unknown Rx Insulin NPH, Human [NovoLIN N] 5 unit SUB-Q BIDDIAB 30 Days #10 ml 07/05/20 06/21/20 Unknown Rx amLODIPine 10 mg PO QDAY #30 tablet 07/05/20 Unknown Rx carvediloL [Coreg] 12.5 mg PO BID #60 tablet 07/05/20 Unknown Rx hydrALAZINE [Apresoline TAB] 50 mg PO Q8HR #30 tablet 07/06/20 Unknown Rx Active Medications: Generic Name Dose Route Start Last Admin Trade Name Freq PRN Reason Stop Dose Admin Albumin Human 12.5 gm 07/22/20 10:00 07/23/20 10:06 Albumin Human 25% (12.5 Gm/50 Ml) Inj IV 07/24/20 09:59 12.5 gm Q12HR JODIE Administration Aspirin 81 mg 07/19/20 10:00 07/22/20 13:53 Aspirin Ec 81 Mg Tab PO 81 mg QDAY JODIE Administration Atropine Sulfate 1 mg 07/23/20 09:03 Atropine 0.1% (1 Mg/10 Ml) Cardiac Syringe IV PRN PRN Bradycardia Carvedilol 12.5 mg 07/18/20 22:00 07/22/20 22:11 Carvedilol 12.5 Mg Tab PO Not Given BID JODIE Chlorothiazide Sodium 500 mg 07/21/20 20:00 07/22/20 22:22 Chlorothiazide 500 Mg Vial IV 500 mg BID JODIE Administration Dextrose 50 ml 07/23/20 03:28 07/23/20 06:00 Dextrose 50% In Water (25gm) 50 Ml Syringe IV 50 ml Q30MIN PRN Administration Hypoglycemia Protocol Famotidine 20 mg 07/18/20 22:00 07/22/20 13:53 Famotidine 20 Mg Tab PO 20 mg DAILY JODIE Administration Fentanyl 50 mcg 07/22/20 10:02 Fentanyl 100 Mcg/2 Ml Inj IV Q10MIN PRN ANALGESIA Fluoxetine HCl 20 mg 07/19/20 10:00 07/22/20 11:07 Fluoxetine 20 Mg Cap PO Not Given QDAY JODIE Folic Acid 1 mg 07/19/20 10:00 07/22/20 13:52 Folic Acid 1 Mg Tab PO 1 mg DAILY JODIE Administration Hydralazine HCl 50 mg 07/18/20 14:00 07/23/20 06:42 Hydralazine 25 Mg Tab PO Not Given Q8HR JODIE Hydralazine HCl 20 mg 07/22/20 14:02 Hydralazine 20 Mg/1 Ml Inj IV Q4HR PRN Blood Pressure Hydrophilic Ointment 1 applic 07/22/20 10:02 Lip Therapy Vaseline TP Q2HR PRN Dry Lips Bumetanide 10 mg/ Sodium 100 mls @ 20 mls/hr 07/21/20 15:00 07/23/20 07:10 Chloride IV 20 mls/hr Q10H JODIE Administration Cefazolin Sodium 1 gm in 50 mls @ 100 mls/hr 07/22/20 18:00 07/23/20 07:08 Ancef/Ns 1 Gm/50 Ml IV 07/24/20 19:59 Infused Q12H JODIE Infusion Fentanyl Citrate 2,000 mcg in 100 mls @ 5.738 mls/hr 07/22/20 11:00 07/23/20 05:30 Fentanyl Drip Premix IV 0 mcg/kg/hr TITR JODIE 0 mls/hr Titration Protocol 1 MCG/KG/HR Propofol 1,000 mg in 100 mls @ 3.443 mls/hr 07/22/20 12:00 Diprivan 10 Mg/Ml IV TITR JODIE Protocol 5 MCG/KG/MIN Dopamine HCl/Dextrose 800 mg in 250 mls @ 4.304 mls/hr 07/23/20 08:00 07/23/20 08:45 Intropin Drip 800 Mg/D5w 250 Ml IV 0 mcg/kg/min TITR JODIE 0 mls/hr Titration Protocol 2 MCG/KG/MIN Levetiracetam 750 mg 07/18/20 22:00 07/22/20 22:20 Levetiracetam 500 Mg/5 Ml Oral Liqd PO 750 mg BID JODIE Administration Multi-Ingred Cream/Lotion/Oil/Oint 1 applic 07/22/20 10:02 Mineral Oil/Petrolatum, White Ophth Oint 3.5 Gm OU Q4HR PRN Dry Eye(s) Sodium Bicarbonate 1,300 mg 07/21/20 20:00 07/22/20 22:21 Sodium Bicarbonate 650 Mg Tab PO 1,300 mg BID JODIE Administration Thiamine HCl 100 mg 07/19/20 10:00 07/22/20 13:53 Thiamine 100 Mg Tab PO 100 mg QDAY JODIE Administration Trazodone HCl 50 mg 07/18/20 22:00 07/22/20 22:21 Trazodone 50 Mg Tab PO 50 mg QHS JODIE Administration
[2020-07-23] MEDS ORDERED: EPOETIN ALFA-EPBX 20,000 UNIT/1 ML VIAL IV PRN (11:13)
[2020-07-23] MEDS ORDERED: SODIUM CHLORIDE 0.9% 100 ML IV PRN (11:13)
[2020-07-23] MEDS: levETIRAcetam 500 MG/5 ML ORAL LIQD PO SCH ×2 (11:18→22:10)
[2020-07-23] MEDS: SODIUM BICARBONATE 650 MG TAB PO SCH ×2 (11:18→22:10)
[2020-07-23] MEDS: FOLIC ACID 1 MG TAB PO SCH (11:19)
[2020-07-23] MEDS: FLUoxetine 20 MG CAP PO SCH (11:19)
[2020-07-23] MEDS: carvediloL 12.5 MG TAB PO SCH (11:19)
[2020-07-23] MEDS: ASPIRIN EC 81 MG TAB PO SCH (11:20)
[2020-07-23] MEDS: CHLOROTHIAZIDE 500 MG VIAL IV SCH ×2 (11:20→22:11)
[2020-07-23] MEDS: FAMOTIDINE 20 MG TAB PO SCH (11:21)
[2020-07-23] MEDS ORDERED: SODIUM CHLORIDE 0.9% 1000 ML IV SOLN ONE (13:55)
[2020-07-23] MEDS ORDERED: SIMPLE SYRUP 15 ML FEEDTUBE PRN ×2 (14:17)
[2020-07-23] MEDS ORDERED: SODIUM BICARBONATE 325 MG TAB FEEDTUBE PRN (14:17)
[2020-07-23] MEDS ORDERED: LIPASE 10,500/PROTEASE 25,000/AMYLASE 43,750 (UNITS) DR CAP FEEDTUBE PRN (14:17)
--- NOTE | 2020-07-23 14:22 | Progress Note ---
Assessment and Plan 07/23/20 Multiorgan failure on vent on pressors plan for dialysis Subjective Date of service: 07/23/20 Principal diagnosis: RACQUEL Interval history: 07/23/20 On vent weaning off Dopamine unresponsive no sedation Objective Vital Signs - 12hr 07/23/20 07/23/20 07/23/20 02:30 02:45 03:00 Temperature Pulse Rate 57 L 46 L 57 L Pulse Rate [ From Monitor] Respiratory 20 16 14 Rate Blood Pressure 125/74 130/77 125/77 O2 Sat by Pulse 100 100 100 Oximetry 07/23/20 07/23/20 07/23/20 03:15 03:30 03:46 Temperature Pulse Rate 59 L 59 L 58 L Pulse Rate [ From Monitor] Respiratory 13 20 18 Rate Blood Pressure 108/76 108/76 110/76 O2 Sat by Pulse 100 100 98 Oximetry 07/23/20 07/23/20 07/23/20 03:54 04:00 04:15 Temperature 95.9 F L Pulse Rate 54 L 60 59 L Pulse Rate [ 60 From Monitor] Respiratory 13 18 Rate Blood Pressure 125/77 112/78 125/61 O2 Sat by Pulse 100 100 99 Oximetry 07/23/20 07/23/20 07/23/20 04:30 04:45 05:00 Temperature Pulse Rate 59 L 58 L 58 L Pulse Rate [ From Monitor] Respiratory 12 16 18 Rate Blood Pressure 131/64 141/57 113/62 O2 Sat by Pulse 98 98 98 Oximetry 07/23/20 07/23/20 07/23/20 05:16 05:30 05:46 Temperature Pulse Rate 59 L 55 L 57 L Pulse Rate [ From Monitor] Respiratory 13 18 13 Rate Blood Pressure 119/72 119/72 132/68 O2 Sat by Pulse 100 97 Oximetry 07/23/20 07/23/20 07/23/20 06:00 06:16 06:30 Temperature Pulse Rate 60 63 63 Pulse Rate [ From Monitor] Respiratory 9 L 12 10 L Rate Blood Pressure 139/49 156/42 125/51 O2 Sat by Pulse 96 100 Oximetry 07/23/20 07/23/20 07/23/20 06:42 06:45 07:00 Temperature Pulse Rate 60 63 63 Pulse Rate [ From Monitor] Respiratory 9 L 9 L Rate Blood Pressure 89/71 105/57 99/51 O2 Sat by Pulse 97 95 Oximetry 07/23/20 07/23/20 07/23/20 07:15 07:30 07:45 Temperature Pulse Rate 62 38 L 45 L Pulse Rate [ From Monitor] Respiratory 9 L 12 20 Rate Blood Pressure 103/54 130/52 157/64 O2 Sat by Pulse 98 100 98 Oximetry 07/23/20 07/23/20 07/23/20 08:00 08:15 08:30 Temperature Pulse Rate 77 85 76 Pulse Rate [ From Monitor] Respiratory 16 20 21 Rate Blood Pressure 129/68 205/92 190/94 O2 Sat by Pulse 100 100 97 Oximetry 07/23/20 07/23/20 07/23/20 08:45 09:00 09:15 Temperature Pulse Rate 66 62 61 Pulse Rate [ From Monitor] Respiratory 19 16 13 Rate Blood Pressure 148/64 152/59 117/56 O2 Sat by Pulse 97 99 98 Oximetry 07/23/20 07/23/20 07/23/20 09:30 09:46 10:00 Temperature Pulse Rate 60 59 L 58 L Pulse Rate [ From Monitor] Respiratory 15 18 18 Rate Blood Pressure 121/67 122/69 106/63 O2 Sat by Pulse 99 100 100 Oximetry 07/23/20 07/23/20 07/23/20 10:15 10:30 10:45 Temperature Pulse Rate 57 L 57 L 57 L Pulse Rate [ From Monitor] Respiratory 21 15 23 Rate Blood Pressure 118/67 118/76 136/80 O2 Sat by Pulse 100 98 100 Oximetry 07/23/20 07/23/20 07/23/20 11:00 11:19 11:45 Temperature Pulse Rate 57 L 57 L 56 L Pulse Rate [ From Monitor] Respiratory 19 Rate Blood Pressure 137/80 122/75 127/66 O2 Sat by Pulse 98 100 Oximetry Constitutional: comatose ENT: other (intubated ) Ascultation: Bilateral: diminished breath sounds Neurologic: non-focal exam, unable to assess CBC and BMP: 07/23/20 06:05 07/23/20 06:05 ABG, PT/INR, D-dimer: ABG ABG pH 7.367 (7.320-7.450) 07/23/20 03:38 POC ABG pCO2 29.7 mmHg (32.0-48.0) L 07/23/20 03:38 POC ABG pO2 267.3 mmHg (83-108) H 07/23/20 03:38 POC ABG HCO3 16.7 07/23/20 03:38 ABG O2 Saturation 99.7 (0-100) 07/23/20 03:38 PT/INR, D-dimer PT 15.9 Sec. (12.2-14.9) H 07/22/20 10:30 INR 1.27 (0.87-1.13) H 07/22/20 10:30 D-Dimer 1036.46 ng/mlDDU (0-234) H 07/18/20 08:56 Abnormal lab findings: Abnormal Labs 07/18/20 07/18/20 07/18/20 08:56 08:56 08:56 WBC 3.5 L RBC 2.51 L Hgb 8.0 L Hct 24.5 L MCV 98 H RDW 18.3 H Plt Count 58 L [place] % (Auto) 11.1 H Lymph # (Auto) Seg Neuts % (Manual) Lymphocytes % (Manual) Nucleated RBC % Lymphocytes # (Manual) PT INR 1.18 H APTT D-Dimer ABG pH POC ABG pCO2 POC ABG pO2 ABG Hemoglobin ABG Oxyhemoglobin ABG Potassium ABG Chloride ABG Glucose Carboxyhemoglobin Sodium 146 H Potassium 5.2 H Chloride 117.3 H Carbon Dioxide 21 L BUN 52 H Creatinine 3.1 H Glucose 118 H POC Glucose Calcium 8.1 L Phosphorus AST ALT Alkaline Phosphatase Lactate Dehydrogenase CK-MB (CK-2) CK-MB (CK-2) Rel Index Troponin T 0.057 H C-Reactive Protein NT-Pro-B Natriuret Pep Albumin HDL Cholesterol 67 H TSH Arterial Blood Glucose Arterial Blood Ionized Calcium 07/18/20 07/18/20 07/18/20 08:56 08:56 08:56 WBC RBC Hgb Hct MCV RDW Plt Count [place] % (Auto) Lymph # (Auto) Seg Neuts % (Manual) Lymphocytes % (Manual) Nucleated RBC % Lymphocytes # (Manual) PT INR APTT D-Dimer 1036.46 H ABG pH POC ABG pCO2 POC ABG pO2 ABG Hemoglobin ABG Oxyhemoglobin ABG Potassium ABG Chloride ABG Glucose Carboxyhemoglobin Sodium Potassium Chloride Carbon Dioxide BUN Creatinine Glucose POC Glucose Calcium Phosphorus AST ALT Alkaline Phosphatase Lactate Dehydrogenase CK-MB (CK-2) CK-MB (CK-2) Rel Index Troponin T C-Reactive Protein NT-Pro-B Natriuret Pep 4777 H Albumin HDL Cholesterol TSH 5.520 H Arterial Blood Glucose Arterial Blood Ionized Calcium 07/18/20 07/18/20 07/18/20 10:36 18:56 19:00 WBC RBC Hgb Hct MCV RDW Plt Count [place] % (Auto) Lymph # (Auto) Seg Neuts % (Manual) Lymphocytes % (Manual) Nucleated RBC % Lymphocytes # (Manual) PT INR APTT D-Dimer ABG pH POC ABG pCO2 POC ABG pO2 ABG Hemoglobin ABG Oxyhemoglobin ABG Potassium ABG Chloride ABG Glucose Carboxyhemoglobin Sodium Potassium Chloride Carbon Dioxide BUN Creatinine Glucose 101 H POC Glucose 66 L 63 L Calcium Phosphorus AST ALT Alkaline Phosphatase Lactate Dehydrogenase 212 H CK-MB (CK-2) CK-MB (CK-2) Rel Index Troponin T C-Reactive Protein 2.10 H NT-Pro-B Natriuret Pep Albumin HDL Cholesterol TSH Arterial Blood Glucose Arterial Blood Ionized Calcium 07/19/20 07/19/20 07/19/20 06:00 06:00 16:26 WBC 3.9 L RBC 2.34 L Hgb 7.5 L Hct 23.1 L MCV 99 H RDW 18.6 H Plt Count 52 L [place] % (Auto) 9.4 H Lymph # (Auto) 1.0 L Seg Neuts % (Manual) Lymphocytes % (Manual) Nucleated RBC % Lymphocytes # (Manual) PT INR APTT D-Dimer ABG pH POC ABG pCO2 POC ABG pO2 ABG Hemoglobin ABG Oxyhemoglobin ABG Potassium ABG Chloride ABG Glucose Carboxyhemoglobin Sodium Potassium 5.3 H Chloride 115.8 H Carbon Dioxide BUN 52 H Creatinine 3.4 H Glucose 114 H POC Glucose 123 H Calcium 7.7 L Phosphorus AST 77 H ALT < 5 L Alkaline Phosphatase 678 H Lactate Dehydrogenase CK-MB (CK-2) CK-MB (CK-2) Rel Index Troponin T C-Reactive Protein NT-Pro-B Natriuret Pep Albumin 2.2 L HDL Cholesterol TSH Arterial Blood Glucose Arterial Blood Ionized Calcium 07/19/20 07/20/20 07/20/20 21:20 08:25 08:25 WBC 3.6 L RBC 2.54 L Hgb 8.0 L Hct 24.6 L MCV 97 H RDW 18.0 H Plt Count 47 L [place] % (Auto) 9.8 H Lymph # (Auto) 0.9 L Seg Neuts % (Manual) Lymphocytes % (Manual) Nucleated RBC % Lymphocytes # (Manual) PT INR APTT D-Dimer ABG pH POC ABG pCO2 POC ABG pO2 ABG Hemoglobin ABG Oxyhemoglobin ABG Potassium ABG Chloride ABG Glucose Carboxyhemoglobin Sodium Potassium 5.4 H Chloride 115.8 H Carbon Dioxide BUN 56 H Creatinine 3.8 H Glucose 110 H POC Glucose 142 H Calcium 7.9 L Phosphorus AST ALT Alkaline Phosphatase Lactate Dehydrogenase CK-MB (CK-2) CK-MB (CK-2) Rel Index Troponin T C-Reactive Protein NT-Pro-B Natriuret Pep Albumin HDL Cholesterol TSH Arterial Blood Glucose Arterial Blood Ionized Calcium 07/20/20 07/20/20 07/20/20 11:27 16:34 21:27 WBC RBC Hgb Hct MCV RDW Plt Count [place] % (Auto) Lymph # (Auto) Seg Neuts % (Manual) Lymphocytes % (Manual) Nucleated RBC % Lymphocytes # (Manual) PT INR APTT D-Dimer ABG pH POC ABG pCO2 POC ABG pO2 ABG Hemoglobin ABG Oxyhemoglobin ABG Potassium ABG Chloride ABG Glucose Carboxyhemoglobin Sodium Potassium Chloride Carbon Dioxide BUN Creatinine Glucose POC Glucose 136 H 186 H 175 H Calcium Phosphorus AST ALT Alkaline Phosphatase Lactate Dehydrogenase CK-MB (CK-2) CK-MB (CK-2) Rel Index Troponin T C-Reactive Protein NT-Pro-B Natriuret Pep Albumin HDL Cholesterol TSH Arterial Blood Glucose Arterial Blood Ionized Calcium 07/21/20 07/22/20 07/22/20 10:31 07:25 10:30 WBC 3.8 L RBC 2.53 L Hgb 7.9 L Hct 24.7 L MCV 98 H RDW 18.7 H Plt Count 35 L [place] % (Auto) Lymph # (Auto) Seg Neuts % (Manual) 92.0 H Lymphocytes % (Manual) 6.0 L Nucleated RBC % 13.0 H Lymphocytes # (Manual) 0.2 L PT INR APTT D-Dimer ABG pH POC ABG pCO2 POC ABG pO2 ABG Hemoglobin ABG Oxyhemoglobin ABG Potassium ABG Chloride ABG Glucose Carboxyhemoglobin Sodium Potassium 5.3 H 5.6 H Chloride 115.0 H 115.1 H Carbon Dioxide 18 L BUN 59 H 61 H Creatinine 4.3 H 4.6 H Glucose 109 H POC Glucose Calcium 7.6 L 7.6 L Phosphorus AST ALT Alkaline Phosphatase Lactate Dehydrogenase CK-MB (CK-2) CK-MB (CK-2) Rel Index Troponin T C-Reactive Protein NT-Pro-B Natriuret Pep Albumin HDL Cholesterol TSH Arterial Blood Glucose Arterial Blood Ionized Calcium 07/22/20 07/22/20 07/22/20 10:30 10:30 10:30 WBC RBC Hgb Hct MCV RDW Plt Count [place] % (Auto) Lymph # (Auto) Seg Neuts % (Manual) Lymphocytes % (Manual) Nucleated RBC % Lymphocytes # (Manual) PT 15.9 H INR 1.27 H APTT 38.3 H D-Dimer ABG pH POC ABG pCO2 POC ABG pO2 ABG Hemoglobin ABG Oxyhemoglobin ABG Potassium ABG Chloride ABG Glucose Carboxyhemoglobin Sodium 146 H Potassium 5.4 H Chloride 116.4 H Carbon Dioxide BUN 61 H Creatinine 4.6 H Glucose 115 H POC Glucose Calcium 7.5 L Phosphorus 5.80 H AST 66 H ALT < 5 L Alkaline Phosphatase 604 H Lactate Dehydrogenase CK-MB (CK-2) 10.9 H CK-MB (CK-2) Rel Index 16.2 H Troponin T 0.047 H C-Reactive Protein NT-Pro-B Natriuret Pep Albumin 2.1 L HDL Cholesterol TSH Arterial Blood Glucose Arterial Blood Ionized Calcium 07/22/20 07/23/20 07/23/20 11:10 03:38 03:47 WBC RBC Hgb Hct MCV RDW Plt Count [place] % (Auto) Lymph # (Auto) Seg Neuts % (Manual) Lymphocytes % (Manual) Nucleated RBC % Lymphocytes # (Manual) PT INR APTT D-Dimer ABG pH 7.203 L POC ABG pCO2 48.7 H 29.7 L POC ABG pO2 80.6 L 267.3 H ABG Hemoglobin 8.6 L 8.2 L ABG Oxyhemoglobin 91.1 L 98.2 H ABG Potassium 5.4 H 5.4 H ABG Chloride 122.0 H 122.0 H ABG Glucose 105 H 101 H Carboxyhemoglobin 2.0 H Sodium Potassium Chloride Carbon Dioxide BUN Creatinine Glucose POC Glucose 65 L Calcium Phosphorus AST ALT Alkaline Phosphatase Lactate Dehydrogenase CK-MB (CK-2) CK-MB (CK-2) Rel Index Troponin T C-Reactive Protein NT-Pro-B Natriuret Pep Albumin HDL Cholesterol TSH Arterial Blood Glucose 105 H 101 H Arterial Blood Ionized Calcium 4.5 L 4.4 L 07/23/20 07/23/20 07/23/20 06:05 06:05 06:27 WBC RBC 2.36 L Hgb 7.5 L Hct 22.7 L MCV 96 H RDW 18.9 H Plt Count 42 L [place] % (Auto) Lymph # (Auto) Seg Neuts % (Manual) Lymphocytes % (Manual) Nucleated RBC % Lymphocytes # (Manual) PT INR APTT D-Dimer ABG pH POC ABG pCO2 POC ABG pO2 ABG Hemoglobin ABG Oxyhemoglobin ABG Potassium ABG Chloride ABG Glucose Carboxyhemoglobin Sodium Potassium 5.6 H Chloride 114.1 H Carbon Dioxide 17 L BUN 62 H Creatinine 5.1 H Glucose 215 H POC Glucose 114 H Calcium 7.3 L Phosphorus AST ALT Alkaline Phosphatase Lactate Dehydrogenase CK-MB (CK-2) CK-MB (CK-2) Rel Index Troponin T C-Reactive Protein NT-Pro-B Natriuret Pep Albumin HDL Cholesterol TSH Arterial Blood Glucose Arterial Blood Ionized Calcium 07/23/20 11:36 WBC RBC Hgb Hct MCV RDW Plt Count [place] % (Auto) Lymph # (Auto) Seg Neuts % (Manual) Lymphocytes % (Manual) Nucleated RBC % Lymphocytes # (Manual) PT INR APTT D-Dimer ABG pH POC ABG pCO2 POC ABG pO2 ABG Hemoglobin ABG Oxyhemoglobin ABG Potassium ABG Chloride ABG Glucose Carboxyhemoglobin Sodium Potassium Chloride Carbon Dioxide BUN Creatinine Glucose POC Glucose 66 L Calcium Phosphorus AST ALT Alkaline Phosphatase Lactate Dehydrogenase CK-MB (CK-2) CK-MB (CK-2) Rel Index Troponin T C-Reactive Protein NT-Pro-B Natriuret Pep Albumin HDL Cholesterol TSH Arterial Blood Glucose Arterial Blood Ionized Calcium Chest x-ray: image reviewed Allied health notes reviewed: nursing
--- NOTE | 2020-07-23 16:18 | Event Note ---
Date: 07/23/[address] Ventura. K 5.6 today, has been in the 5s this entire week. No acute changes. Obtained consent from family. As of now, will plan on placing dialysis catheter tomorrow.
--- NOTE | 2020-07-23 16:57 | Operative Report ---
Operative Report Operative Report: EXAM: 1. Ultrasound-guided puncture of the right internal jugular vein 2. Fluoroscopic-guided placement of a right internal jugular nontunneled noncuffed hemodialysis catheter. DATE: 07/23/2020 INDICATION: Acute renal failure requiring hemodialysis. MEDICATIONS: Please see nursing report for full details. DEVICES: 15 cm trialysis lumen hemodialysis catheter CUSTOMER RESPONSE REPRESENTATIVE: PEREZ FAY MD CONTRAST: None PROCEDURE: The risks, benefits, and alternatives were discussed and informed consent was obtained. The patient was transported to the angiography suite in satisfactory/stable condition and was transported onto the angiography table. The patient's right internal jugular vein was assessed with ultrasound and determined to be patent prior to procedure. The patient was prepped and draped in a sterile fashion. The puncture site was anesthetized. The right internal jugular vein was patent on ultrasound. Under sonographic guidance, the right internal jugular vein was punctured with a 21-gauge micropuncture needle and a 0.018 inch wire was advanced through the needle. Needle was exchanged for transitional dilator. The inner dilator and wire was removed and a 0.035 inch wire was advanced through the transitional dilator into the inferior vena cava. Over the 0.035 inch wire, serial dilatation was performed. The catheter was advanced over the wire and positioned centrally under fluoroscopic guidance. 2-0 silk suture was used to secure the catheter. The catheter was charged with heparin 1000 units/mL of space in the dialysis lumens. Saline was infused in the central PICC lumen. Sterile dressing and Biopatch applied. The patient was transferred from the angiography suite back to the floor in stable condition. FINDINGS: 1. Excellent flow was obtained through the dialysis catheter with 20 mL syringes. 2. The catheter tip is in the right atrium. IMPRESSION: 1. Successful sonographically and fluoroscopically guided placement of a right internal jugular nontunneled noncuffed hemodialysis catheter.
--- NOTE | 2020-07-23 16:57 | Post Operative Note ---
Date of procedure: 07/23/20 Pre-op diagnosis: ARF Post-op diagnosis: same Procedure: R IJ vascath placement, trialysis 15 cm Anesthesia: local Surgeon: PEREZ FAY Estimated blood loss: minimal Condition: stable Disposition: no change
--- NOTE | 2020-07-23 17:34 | Progress Note ---
Assessment and Plan This 70-year-old patient known to have diabetes mellitus, hypertension, alcohol abuse has cardiomyopathy with ejection fraction of 35 to 40% was noted to have a brief episode of unresponsiveness for which code was called. Patient did not lose his pulse or blood pressure. Patient was intubated nasotracheally and transferred to coronary care unit. Patient has a history of alcohol abuse and chronic kidney disease. Continue to avoid AV jack blocking agents. Echo (06/22/20) reviewed: EF 35-40%. Mild LVH. LVSF med decreased. RVSF mildly reduced. Mild Pulm HTN. Left Atrium Mildly DIlated. Right Atrium Moderately dilated. Mild MR. Moderate TR. Dialysis catheter placed for HD. Electrolyte management per nephrology. Continue supportive management. Will follow. This patient was seen in conjunction with Dr Martino who agrees with this assessment and plan of care. Assessment and Plan - Patient Problems (1) Acute metabolic encephalopathy Current Visit: Yes Status: Acute (2) Acute on chronic renal failure Current Visit: Yes Status: Acute Qualifiers: Acute renal failure type: unspecified Chronic kidney disease stage: stage 3 (moderate) Chronic kidney disease stage 3 subtype: stage 3a (GFR 45-59) Qualified Code(s): N17.9 - Acute kidney failure, unspecified; N18.31 - Chronic kidney disease, stage 3a (3) Anasarca Current Visit: Yes Status: Acute (4) Cardiomyopathy Current Visit: Yes Status: Acute Qualifiers: Cardiomyopathy type: unspecified Qualified Code(s): I42.9 - Cardiomyopathy, unspecified Plan to address problem: Etiology of her cardiomyopathy is not clear. It could be related to diabetes, alcohol abuse and drug abuse . Patient has low QRS voltage complexes and amyloid is in DD . (5) Hyperkalemia Current Visit: Yes Status: Acute (6) Hypothermia Current Visit: Yes Status: Acute Qualifiers: Encounter type: initial encounter Qualified Code(s): T68.XXXA - Hypothermia, initial encounter (7) Sepsis Current Visit: Yes Status: Acute Qualifiers: Sepsis type: sepsis due to unspecified organism Sepsis acute organ dysfunction status: with acute organ dysfunction Severe sepsis acute organ dysfunction type: acute renal failure Acute renal failure type: unspecified Severe sepsis shock status: without septic shock Qualified Code(s): A41.9 - Sepsis, unspecified organism; R65.20 - Severe sepsis without septic shock; N17.9 - Acute kidney failure, unspecified (8) Thrombocytopenia Current Visit: Yes Status: Acute (9) Elevated troponin Current Visit: Yes Status: Acute Plan to address problem: This is probably due to renal insufficiency and sepsis. After patient is extubated we will schedule for ischemic work-up. Subjective Date of service: 07/23/20 Principal diagnosis: RACQUEL Interval history: Patient is in bed, intubated and sedated. Tele reviewed: SR, HR 60. Overnight Low HR 25 sinus coby. Objective Last Vital Signs Temp 95.9 F L 07/23/20 04:00 Pulse 57 L 07/23/20 16:00 Resp 19 07/23/20 15:30 BP 107/62 07/23/20 16:00 Pulse Ox 100 07/23/20 16:00 - Physical Examination General: Other (Intubated, Sedated) HEENT: Positive: Other (Intubated, Sedated) Neck: Positive: neck supple Cardiac: Positive: Reg Rate and Rhythm, S1/S2 Lungs: Positive: Ventilated Respirations Neuro: Positive: Other (Intubated, Sedated) Abdomen: Positive: Unremarkable Skin: Negative: Rash Extremities: Present: upper extr. pulses, lower extr. pulses. Absent: edema - Labs and Meds CBC 07/23/20 Range/Units 06:05 WBC 5.6 (4.5-11.0) K/mm3 RBC 2.36 L (3.65-5.03) M/mm3 Hgb 7.5 L (11.8-15.2) gm/dl Hct 22.7 L (35.5-45.6) % Plt Count 42 L (140-440) K/mm3 Comprehensive Metabolic Panel 07/23/20 Range/Units 06:05 Sodium 142 (137-145) mmol/L Potassium 5.6 H (3.6-5.0) mmol/L Chloride 114.1 H (98-107) mmol/L Carbon Dioxide 17 L (22-30) mmol/L BUN 62 H (9-20) mg/dL Creatinine 5.1 H (0.8-1.3) mg/dL Glucose 215 H (75-100) mg/dL Calcium 7.3 L (8.4-10.2) mg/dL - Imaging and Cardiology EKG: report reviewed, image reviewed Echo: report reviewed ((06/22/20) EF 35-40%. Mild LVH. LVSF med decreased. RVSF mildly reduced. Mild Pulm HTN. Left Atrium Mildly DIlated. Right Atrium Moderately dilated. Mild MR. Moderate TR. ) - Telemetry EKG Rhythm: Sinus Rhythm - EKG Sinus rhythms and dysrhythmias: sinus rhythm - Allied health notes Allied health notes reviewed: nursing
--- NOTE | 2020-07-23 17:46 | XRay Report ---
CHEST 1 VIEW 07/23/2020 5:12 PM INDICATION / CLINICAL INFORMATION: post vas cath insertion. COMPARISON: Exam done earlier on 07/23/2020 FINDINGS: SUPPORT DEVICES: Right IJ central venous catheter has been placed with tip projected over the superio r cavoatrial junction. Other lines and tubes appear stable. HEART / MEDIASTINUM: Stable. LUNGS / PLEURA: Stable bilateral pleural effusions and bibasilar opacities. No pneumothorax. ADDITIONAL FINDINGS: No significant additional findings. IMPRESSION: 1. Right IJ central venous catheter tip projects over superior cavoatrial junction. Signer Name: Paulo Esteban MD Signed: 07/23/2020 5:41 PM Workstation Name: [id number]
[2020-07-23] MEDS: THIAMINE 100 MG TAB PO SCH (17:48)
[2020-07-23] MEDS ORDERED: DOPamine/D5W 800 MG/250 ML DRIP IV ONE (19:59)
[2020-07-23] MEDS ORDERED: EPINEPHrine 1 MG/10 ML SYRINGE ONE (19:59)
[2020-07-23 20:16] LABS: Hepatitis B Surface Antigen Non-Reactive (Negative); Hepatitis C Virus Antibody Reactive (NonReactive)
[2020-07-23] MEDS: traZODone 50 MG TAB PO SCH (22:10)
--- NOTE | 2020-07-23 22:49 | Ultrasound Report ---
US renal BILAT INDICATION / CLINICAL INFORMATION: RACQUEL. COMPARISON: None available. FINDINGS: RIGHT KIDNEY: Size = 10.1 cm. - Echogenicity: Increased echogenicity and decreased visualization of the renal pyramids. - Cortical thickness: Normal. - Hydronephrosis: None. - Cyst or mass: None. - Stones: None seen.. LEFT KIDNEY: Size = 11.4 cm. - Echogenicity: Increased echogenicity and decreased visualization of the renal pyramids. - Cortical thickness: Normal. - Hydronephrosis: None. - Cyst or mass: There are 2 adjacent small simple appearing renal cysts measuring up to 2.5 cm. - Stones: None seen.. URINARY BLADDER: Decompressed via Ayala catheter. FREE FLUID: Small volume ascites. ADDITIONAL FINDINGS: None. IMPRESSION 1. Findings of medical renal disease without other significant sonographic abnormality. Signer Name: Owen Bledsoe MD Signed: 07/23/2020 10:45 PM Workstation Name: [id number]
[2020-07-24] MEDS: hydrALAZINE 25 MG TAB PO SCH ×3 (05:09→21:44)
[2020-07-24 05:32] LABS: Hematocrit 22.5 % (35.5-45.6); Hemoglobin 7.5 gm/dl (11.8-15.2); Mean Corpuscular HGB Conc 34 % (32-34); Mean Corpuscular Volume 95 fl (84-94); Red Blood Count 2.36 M/mm3 (3.65-5.03); Red Cell Distribution Width 18.4 % (13.2-15.2)
[2020-07-24 05:41] LABS: Platelet Count 38 K/mm3 (140-440)
[2020-07-24 05:49] LABS: Calcium 7.3 mg/dL (8.4-10.2)
[2020-07-24] MEDS ORDERED: ceFAZolin/NS 1 GM/50 ML 1 GM/50 ML BAG IV SCH (06:00)
--- NOTE | 2020-07-24 08:47 | Progress Note ---
Assessment and Plan Assessment and plan: --PUI/COVID-19 test negative/07/18/2020 --Acute on chronic kidney disease stage III; Worsening renal function and clinical status Nephrology initiated hemodialysis yesterday Management per nephrology, HD per schedule --Acute hypoxic respiratory failure: Intubated 07/22/2020 On mechanical ventilation Pulmonary critical following --Non-STEMI-2 : probably secondary to respiratory failure, chronic kidney disease Patient has risk factors, cardiology following, --Bradycardia; improved Heart rate in 60s today Hold beta-blockers,Atropine as needed --Hyperkalemia; resolved after hemodialysis HD per schedule, monitor electrolytes Nephrology following --hyponatremia; resolved Closely monitor electrolytes --Acute toxic metabolic encephalopathy; CT head without contrast, no acute abnormality --Severe protein calorie malnutrition/hypoalbuminemia, nutrition supplements, tube feeding, nutrition consult --Thrombocytopenia; check HIT antibodies --Sepsis/SIRS/hypothermia; Warm blankets, treat the underlying sepsis IV antibiotics, follow cultures --h/o right calf abscess:h/o MSSA bacteremia on treatment We will continue Unasyn 2 g every 8 hourly As per ID recommendations completed 6 weeks of Unasyn 07/24/2020 --Type 2 diabetes mellitus; Blood sugars in the lower range, avoid hypoglycemia Accu-Chek sliding scale coverage ADA diet Long-acting insulin as needed, check HbA1c 8.3 last month --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; 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%[04/2020] Continue antifailure medications Input output monitoring, diuretics Cardiology following --History of seizure disorder; Seizure precautions, continue Keppra --History of CVA; with residual weakness Fall precautions, PT OT as needed --DVT prophylaxis;thrombocytopenia, no anticoagulation Continue SCDs --Full CODE STATUS --Restraint for safety I called patient's niece Amee Corcoran #[phone] as well as patient's aunt Viridiana Ambrosio [phone] On 07/22/2020 and discussed in detail patient's critical condition respiratory failure requiring intubation change of status, Renal failure needing dialysis ,verbalized understanding The high probability of a clinically significant, sudden or life threatening deterioration of the [multi] system(s) required my full and direct attention, intervention and personal management. The aggregate critical care time was [35] minutes. This time is in addition to time spent performing reported procedures but includes the following: [x] Data Review and interpretation [x] Patient assessment and monitoring of vital signs [x] Documentation [x] Medication orders and management Hospital course; 07/19/2020; unable to pass Ayala catheter, Consulted urology, continue supportive care, COVID-19 test negative 07/20/2020; urology evaluation recommendation noted and appreciated Ayala catheter was inserted by urology, draining well MSSA bacteremia on long-term antibiotics 07/21/2020; patient is lethargic CT head without contrast, no acute abnormality Patient is afebrile 07/22/2020; patient had acute respiratory failure this morning CODE BLUE was called, patient was intubated on ventilatory support Pulmonary critical consulted, family patients aunt informed 07/23/2020; patient has severe bradycardia this morning, received atropine Cardiology following. Beta-blockers held, electrolytes corrected Patient's heart rate improved to 50s and 60s Cardiology following Nephrology planning hemodialysis trying to get consent from family 07/24/2020; patient received hemodialysis yesterday Remains intubated on ventilatory support Bradycardia significantly improved heart rate in 60s Completed 6 weeks of Unasyn for MSSA sepsis today History Interval history: I have seen and examined the patient at the bedside this morning in ICU Patient's chart, medications, tests and reports reviewed Patient is hypotensive this morning, Scheduled for hemodialysis Orally intubated on ventilatory support Vital signs noted Hospitalist Physical - Constitutional Vitals: Temp Pulse Resp BP Pulse Ox 95.9 F L 66 21 95/50 100 07/23/20 04:00 07/24/20 08:09 07/24/20 06:00 07/24/20 08:09 07/24/20 08:09 General appearance: Present: mild distress, well-nourished, obese, other (Intubated on vent) - EENT Eyes: Present: PERRL, EOM intact ENT: other (ET tube and Dobbhoff in place) - Neck Neck: Present: supple, normal ROM - Respiratory Respiratory effort: normal Respiratory: bilateral: diminished, negative: rales, rhonchi, wheezing - Cardiovascular Rhythm: regular Heart Sounds: Present: S1 & S2 - Extremities Extremities: no ischemia, No edema - Abdominal General gastrointestinal: soft, non-tender, non-distended, normal bowel sounds - Integumentary Integumentary: Present: clear, warm - Psychiatric Psychiatric: other (Intubated on vent) - Neurologic Neurologic: other (Intubated on vent) HEART Score - HEART Score Troponin: Troponin T 0.047 ng/mL (0.00-0.029) H 07/22/20 10:30 Results - Labs CBC & Chem 7: 07/24/20 Unknown 07/24/20 04:00 Labs: Laboratory Last Values WBC 7.8 K/mm3 (4.5-11.0) 07/24/20 Unknown RBC 2.36 M/mm3 (3.65-5.03) L 07/24/20 Unknown Hgb 7.5 gm/dl (11.8-15.2) L 07/24/20 Unknown Hct 22.5 % (35.5-45.6) L 07/24/20 Unknown MCV 95 fl (84-94) H 07/24/20 Unknown MCH 32 pg (28-32) 07/24/20 Unknown MCHC 34 % (32-34) 07/24/20 Unknown RDW 18.4 % (13.2-15.2) H 07/24/20 Unknown Plt Count 38 K/mm3 (140-440) L 07/24/20 Unknown Lymph % (Auto) 25.4 % (13.4-35.0) 07/20/20 08:25 [place] % (Auto) 9.8 % (0.0-7.3) H 07/20/20 08:25 Eos % (Auto) 0.7 % (0.0-4.3) 07/20/20 08:25 Baso % (Auto) 0.1 % (0.0-1.8) 07/20/20 08:25 Lymph # (Auto) 0.9 K/mm3 (1.2-5.4) L 07/20/20 08:25 [place] # (Auto) 0.3 K/mm3 (0.0-0.8) 07/20/20 08:25 Eos # (Auto) 0.0 K/mm3 (0.0-0.4) 07/20/20 08:25 Baso # (Auto) 0.0 K/mm3 (0.0-0.1) 07/20/20 08:25 Add Manual Diff Complete 07/22/20 10:30 Total Counted 100 07/22/20 10:30 Seg Neutrophils % 64.0 % (40.0-70.0) 07/20/20 08:25 Seg Neuts % (Manual) 92.0 % (40.0-70.0) H 07/22/20 10:30 Lymphocytes % (Manual) 6.0 % (13.4-35.0) L 07/22/20 10:30 Monocytes % (Manual) 2.0 % (0.0-7.3) 07/22/20 10:30 Nucleated RBC % 13.0 % (0.0-0.9) H 07/22/20 10:30 Seg Neutrophils # 2.3 K/mm3 (1.8-7.7) 07/20/20 08:25 Seg Neutrophils # Man 3.5 K/mm3 (1.8-7.7) 07/22/20 10:30 Band Neutrophils # 0.0 K/mm3 07/22/20 10:30 Lymphocytes # (Manual) 0.2 K/mm3 (1.2-5.4) L 07/22/20 10:30 Abs React Lymphs (Man) 0.0 K/mm3 07/22/20 10:30 Monocytes # (Manual) 0.1 K/mm3 (0.0-0.8) 07/22/20 10:30 Eosinophils # (Manual) 0.0 K/mm3 (0.0-0.4) 07/22/20 10:30 Basophils # (Manual) 0.0 K/mm3 (0.0-0.1) 07/22/20 10:30 Metamyelocytes # 0.0 K/mm3 07/22/20 10:30 Myelocytes # 0.0 K/mm3 07/22/20 10:30 Promyelocytes # 0.0 K/mm3 07/22/20 10:30 Blast Cells # 0.0 K/mm3 07/22/20 10:30 WBC Morphology Not Reportable 07/22/20 10:30 Hypersegmented Neuts Not Reportable 07/22/20 10:30 Hyposegmented Neuts Not Reportable 07/22/20 10:30 Hypogranular Neuts Not Reportable 07/22/20 10:30 Smudge Cells Not Reportable 07/22/20 10:30 Toxic Granulation Not Reportable 07/22/20 10:30 Toxic Vacuolation Not Reportable 07/22/20 10:30 Dohle Bodies Not Reportable 07/22/20 10:30 Pelger-Huet Anomaly Not Reportable 07/22/20 10:30 Clint Rods Not Reportable 07/22/20 10:30 Platelet Estimate Consistent w auto 07/22/20 10:30 Clumped Platelets Not Reportable 07/22/20 10:30 Plt Clumps, EDTA Not Reportable 07/22/20 10:30 Large Platelets Not Reportable 07/22/20 10:30 Giant Platelets Not Reportable 07/22/20 10:30 Platelet Satelliting Not Reportable 07/22/20 10:30 Plt Morphology Comment Not Reportable 07/22/20 10:30 RBC Morphology Not Reportable 07/22/20 10:30 Dimorphic RBCs Not Reportable 07/22/20 10:30 Polychromasia Not Reportable 07/22/20 10:30 Hypochromasia Not Reportable 07/22/20 10:30 Poikilocytosis Not Reportable 07/22/20 10:30 Anisocytosis Not Reportable 07/22/20 10:30 Microcytosis Rare 07/22/20 10:30 Macrocytosis Not Reportable 07/22/20 10:30 Spherocytes Not Reportable 07/22/20 10:30 Pappenheimer Bodies Not Reportable 07/22/20 10:30 Sickle Cells Not Reportable 07/22/20 10:30 Target Cells Not Reportable 07/22/20 10:30 Tear Drop Cells Not Reportable 07/22/20 10:30 Ovalocytes Not Reportable 07/22/20 10:30 Helmet Cells Not Reportable 07/22/20 10:30 [place] Bodies Not Reportable 07/22/20 10:30 Paulina Rings Not Reportable 07/22/20 10:30 Sae Cells Not Reportable 07/22/20 10:30 Bite Cells Not Reportable 07/22/20 10:30 Crenated Cell Not Reportable 07/22/20 10:30 Elliptocytes Not Reportable 07/22/20 10:30 Acanthocytes (Spur) Not Reportable 07/22/20 10:30 Rouleaux Not Reportable 07/22/20 10:30 Hemoglobin C Crystals Not Reportable 07/22/20 10:30 Schistocytes Not Reportable 07/22/20 10:30 Malaria parasites Not Reportable 07/22/20 10:30 Carl Bodies Not Reportable 07/22/20 10:30 Hem Pathologist Commnt No 07/22/20 10:30 PT 15.9 Sec. (12.2-14.9) H 07/22/20 10:30 INR 1.27 (0.87-1.13) H 07/22/20 10:30 APTT 38.3 Sec. (24.2-36.6) H 07/22/20 10:30 D-Dimer 1036.46 ng/mlDDU (0-234) H 07/18/20 08:56 ABG pH 7.427 (7.320-7.450) 07/24/20 04:25 POC ABG pCO2 34.1 mmHg (32.0-48.0) 07/24/20 04:25 POC ABG pO2 64.8 mmHg (83-108) L 07/24/20 04:25 POC ABG HCO3 22 07/24/20 04:25 ABG O2 Saturation 91.4 (0-100) 07/24/20 04:25 POC ABG Base Excess -2.1 07/24/20 04:25 ABG Hemoglobin 7.9 (12.0-17.5) L 07/24/20 04:25 ABG Oxyhemoglobin 98.2 (94-98) H 07/23/20 03:38 ABG Methemoglobin 0.1 (0.0-1.5) 07/23/20 03:38 ABG Sodium 139.8 mmol/L (136.0-145.0) 07/24/20 04:25 ABG Potassium 4.4 mmol/L (3.40-4.50) 07/24/20 04:25 ABG Chloride 114.0 mmol/L (98-107) H 07/24/20 04:25 ABG Glucose 95 mg/dL (65-95) 07/24/20 04:25 Carboxyhemoglobin 1.4 (0.5-1.5) 07/23/20 03:38 FiO2 % 40 07/24/20 04:25 Sodium 144 mmol/L (137-145) 07/24/20 04:00 Potassium 4.6 mmol/L (3.6-5.0) 07/24/20 04:00 Chloride 110.8 mmol/L (98-107) H 07/24/20 04:00 Carbon Dioxide 23 mmol/L (22-30) 07/24/20 04:00 Anion Gap 15 mmol/L 07/24/20 04:00 BUN 47 mg/dL (9-20) H 07/24/20 04:00 Creatinine 4.4 mg/dL (0.8-1.3) H 07/24/20 04:00 Estimated GFR 17 ml/min 07/24/20 04:00 BUN/Creatinine Ratio 11 % 07/24/20 04:00 Glucose 94 mg/dL (75-100) 07/24/20 04:00 POC Glucose 102 mg/dL (70-105) 07/23/20 22:22 Lactic Acid 0.80 mmol/L (0.7-2.0) 07/18/20 08:56 Calcium 7.3 mg/dL (8.4-10.2) L 07/24/20 04:00 Phosphorus 5.80 mg/dL (2.5-4.5) H 07/22/20 10:30 Magnesium 2.10 mg/dL (1.7-2.3) 07/22/20 10:30 Ferritin 198.6 ng/mL (30.0-300.0) 07/18/20 10:36 Total Bilirubin 0.30 mg/dL (0.1-1.2) 07/22/20 10:30 Direct Bilirubin 0.2 mg/dL (0-0.2) 07/19/20 06:00 Indirect Bilirubin 0.2 mg/dL 07/19/20 06:00 AST 66 units/L (5-40) H 07/22/20 10:30 ALT < 5 units/L (7-56) L 07/22/20 10:30 Alkaline Phosphatase 604 units/L (35-129) H 07/22/20 10:30 Ammonia 41.0 umol/L (25-60) 07/18/20 08:56 Lactate Dehydrogenase 212 units/L (91-180) H 07/18/20 10:36 Total Creatine Kinase 67 units/L (55-170) 07/22/20 10:30 CK-MB (CK-2) 10.9 ng/mL (0.0-4.0) H 07/22/20 10:30 CK-MB (CK-2) Rel Index 16.2 (0-4) H 07/22/20 10:30 Troponin T 0.047 ng/mL (0.00-0.029) H 07/22/20 10:30 C-Reactive Protein 2.10 mg/dL (0.00-1.30) H 07/18/20 10:36 NT-Pro-B Natriuret Pep 4777 pg/mL (0-900) H 07/18/20 08:56 Total Protein 6.4 g/dL (6.3-8.2) 07/22/20 10:30 Albumin 2.1 g/dL (3.9-5) L 07/22/20 10:30 Albumin/Globulin Ratio 0.5 % 07/22/20 10:30 Triglycerides 65 mg/dL (2-149) 07/18/20 08:56 Cholesterol 157 mg/dL (50-199) 07/18/20 08:56 LDL Cholesterol Direct 95 mg/dL (50-130) 07/18/20 08:56 HDL Cholesterol 67 mg/dL (40-59) H 07/18/20 08:56 Cholesterol/HDL Ratio 2.34 % 07/18/20 08:56 Procalcitonin 0.10 ng/mL (<0.15) 07/18/20 10:36 TSH 5.520 mlU/mL (0.270-4.200) H 07/18/20 08:56 Free T4 0.84 ng/dL (0.76-1.46) 07/18/20 08:56 Arterial Blood Glucose 95 mg/dL (65-95) 07/24/20 04:25 Arterial Blood Ionized Calcium 4.2 mg/dL (4.6-5.3) L 07/24/20 04:25 Random Vancomycin 16.1 ug/mL (0-40.0) 07/20/20 08:25 Coronavirus (PCR) Negative (Negative) 07/18/20 12:07 Hepatitis A IgM Ab Non-reactive (NonReactive) 07/23/20 19:20 Hep Bs Antigen Non-reactive (Negative) 07/23/20 19:20 Hep B Core IgM Ab Non-reactive (NonReactive) 07/23/20 19:20 Hepatitis C Antibody Reactive (NonReactive) A 07/23/20 19:20 Blood Type A POSITIVE 07/18/20 08:56 Antibody Screen Negative 07/18/20 08:56 Microbiology: Microbiology 07/22/20 10:28 Tracheal Aspirate Sputum Culture - Preliminary 07/18/20 09:00 Peripheral/Venous Blood Culture - Final NO GROWTH AFTER 5 DAYS Ayala/IV: Voiding Method Indwelling Catheter Active Medications - Current Medications Current Medications: Generic Name Dose Route Start Last Admin Trade Name Freq PRN Reason Stop Dose Admin Albumin Human 12.5 gm 07/22/20 10:00 07/23/20 22:12 Albumin Human 25% (12.5 Gm/50 Ml) Inj IV 07/24/20 09:59 12.5 gm Q12HR JODIE Administration Lipase/Protease/Amylase 1 each 07/23/20 14:17 Lipase 10,500/Protease 25,000/Amylase 43,750 (Units) Dr Shell FEEDTUBE PRN PRN For Clogged Feeding Tube Aspirin 81 mg 07/19/20 10:00 07/23/20 11:20 Aspirin Ec 81 Mg Tab PO Not Given QDAY JODIE Atropine Sulfate 1 mg 07/23/20 09:03 07/23/20 22:15 Atropine 0.1% (1 Mg/10 Ml) Cardiac Syringe IV 1 mg PRN PRN Administration Bradycardia Chlorothiazide Sodium 500 mg 07/21/20 20:00 07/23/20 22:11 Chlorothiazide 500 Mg Vial IV 500 mg BID JODIE Administration Dextrose 50 ml 07/23/20 03:28 07/23/20 06:00 Dextrose 50% In Water (25gm) 50 Ml Syringe IV 50 ml Q30MIN PRN Administration Hypoglycemia Protocol Famotidine 20 mg 07/18/20 22:00 07/23/20 11:21 Famotidine 20 Mg Tab PO 20 mg DAILY JODIE Administration Fentanyl 50 mcg 07/22/20 10:02 Fentanyl 100 Mcg/2 Ml Inj IV Q10MIN PRN ANALGESIA Fluoxetine HCl 20 mg 07/19/20 10:00 07/23/20 11:19 Fluoxetine 20 Mg Cap PO 20 mg QDAY JODIE Administration Folic Acid 1 mg 07/19/20 10:00 07/23/20 11:19 Folic Acid 1 Mg Tab PO 1 mg DAILY JODIE Administration Hydralazine HCl 50 mg 07/18/20 14:00 07/24/20 05:09 Hydralazine 25 Mg Tab PO Not Given Q8HR JODIE Hydralazine HCl 20 mg 07/22/20 14:02 Hydralazine 20 Mg/1 Ml Inj IV Q4HR PRN Blood Pressure Hydrophilic Ointment 1 applic 07/22/20 10:02 Lip Therapy Vaseline TP Q2HR PRN Dry Lips Fentanyl Citrate 2,000 mcg in 100 mls @ 5.738 mls/hr 07/22/20 11:00 07/23/20 05:30 Fentanyl Drip Premix IV 0 mcg/kg/hr TITR JODIE 0 mls/hr Titration Protocol 1 MCG/KG/HR Propofol 1,000 mg in 100 mls @ 3.443 mls/hr 07/22/20 12:00 Diprivan 10 Mg/Ml IV TITR JODIE Protocol 5 MCG/KG/MIN Sodium Chloride 100 mls @ 999 mls/hr 07/23/20 11:13 Nacl 0.9% IV FRANCISCO PRN Hypotension Levetiracetam 750 mg 07/18/20 22:00 07/23/20 22:10 Levetiracetam 500 Mg/5 Ml Oral Liqd PO 750 mg BID JODIE Administration Multi-Ingred Cream/Lotion/Oil/Oint 1 applic 07/22/20 10:02 Mineral Oil/Petrolatum, White Ophth Oint 3.5 Gm OU Q4HR PRN Dry Eye(s) Simple Syrup 15 ml 07/23/20 14:17 Simple Syrup 15 Ml FEEDTUBE PRN PRN Hypoglycemia Simple Syrup 30 ml 07/23/20 14:17 Simple Syrup 15 Ml FEEDTUBE PRN PRN Hypoglycemia Sodium Bicarbonate 1,300 mg 07/21/20 20:00 07/23/20 22:10 Sodium Bicarbonate 650 Mg Tab PO 1,300 mg BID JODIE Administration Sodium Bicarbonate 325 mg 07/23/20 14:17 Sodium Bicarbonate 325 Mg Tab FEEDTUBE PRN PRN For Clogged Feeding Tube Thiamine HCl 100 mg 07/19/20 10:00 07/23/20 17:48 Thiamine 100 Mg Tab PO Not Given QDAY JODIE Trazodone HCl 50 mg 07/18/20 22:00 07/23/20 22:10 Trazodone 50 Mg Tab PO 50 mg QHS JODIE Administration Nutrition/Malnutrition Assess - Dietary Evaluation Nutrition/Malnutrition Findings: Nutrition Notes Start: 07/19/20 09:53 Freq: Status: Active Protocol: Document 07/23/20 09:37 CW (Rec: 07/23/20 09:46 CW [id number]) Nutrition Notes Need for Assessment generated from: MD Order Initial or Follow up Reassessment Current Diagnosis CKD(stage I-IV),Diabetes, Sepsis,Heart Failure, Respiratory Failure,Stroke Other Pertinent Diagnosis Acute toxic metabolic encephalopathy, Bradycardia, ( R) LE wound, Anasarca Current Diet No current Diet Order Labs/Tests K 5.6 BUN 62 Cr 5.1 BG 215 Pertinent Medications Dopamine Drip Bumetanide D50w 50 ml Height 5 ft 9 in Weight 114.76 kg [place] Body Weight (kg) 72.72 BMI 37.3 Weight change and time frame weight stable Weight Status Obese Subjective/Other Information F/U for TF consult, vent status, renal functioning and propofol usage. MD consult placed. Propofol no longer being given. Recommend start Nepro d/t poor kidney functioning. TF providing protein less than needs d/t poor kidney functioning. Pt previously refused HD. Awaiting amily contact for POC . Percent of energy/protein needs met: 0%/0% Burn Absent Trauma Absent Difficulty In Swallowing Skin Integrity/Comment Diabetic ulcers to BLE Current % PO Negligible Minimum of two criteria No Fluid Accumulation Moderate to Severe (severe) #1 Nutrition Diagnosis Inadequate oral intake Etiology respiratory failure As Evidenced by Signs and Symptoms pt on mechanical vent and unable to feed PO Diagnosis Progress(for reassessment Continues documentation) Is patient on ventilator? Yes Is Patient Ambulatory and/or Out of Bed No REE-([facility]-confined to bed) 2330.148 Kcal/Kg value to use for calculation 16 Approximate Energy Requirements Using 1836 kcal/Kg Calculation Used for Recommendations Kcal/kg Additional Notes Protein needs: >144g (>1.9g/ kgIBW) Fluid needs 1000 - 1500 ml/day Nutrition Intervention Change Diet Order: Initiate TF regimen of Nepro Nutrition Support: Nepro at 42 ml/h with a free water flush of 125 ml q4h. Kcal 1,814 Protein (gm) 82 Fluid (mL) 733 Goal #1 Start EN support to meet nutrient needs Anticipated Discharge Needs: Unable to determine at this time Follow-Up By: 07/25/20 Additional Comments F/U TF initiation and tolerance, Vent status POC
[2020-07-24] MEDS ORDERED: NORepinephrine/NS 4 MG-250 ML 4 MG/250 ML BAG IV SCH (10:00)
[2020-07-24] MEDS: levETIRAcetam 500 MG/5 ML ORAL LIQD PO SCH ×2 (10:03→21:45)
[2020-07-24] MEDS: FLUoxetine 20 MG CAP PO SCH (10:04)
[2020-07-24] MEDS: THIAMINE 100 MG TAB PO SCH (10:04)
[2020-07-24] MEDS: ASPIRIN EC 81 MG TAB PO SCH (10:05)
[2020-07-24] MEDS: FOLIC ACID 1 MG TAB PO SCH (10:05)
[2020-07-24] MEDS: FAMOTIDINE 20 MG TAB PO SCH (10:05)
[2020-07-24] MEDS: SODIUM BICARBONATE 650 MG TAB PO SCH ×2 (10:06→21:45)
--- NOTE | 2020-07-24 10:10 | Progress Note ---
Assessment and Plan tte 06/22/2020 reviewed - EF 35-40%, LA mildly dilated, RA mod dilated, mild to mod MR, mod TR, mild LVH, pseudonormalization, RV systolic function mildly reduced, mild pulm HTN with RVSP 46mmHg. tele reviewed - in SR with SB HR 32bpm noted yesterday evening around 2200, no bradycardia noted since then. HD access was obtained and HD initiated yesterday. Cont present supportive management. Cont volume and electrolyte management per nephrology/HD. No BB at this time in setting of intermittent bradycardia and hypotension requiring vasopressor support. No ACEI/ARB at this time in setting of renal insufficiency and hypotension. Can consider ischemic evaluation for further investigation of CMP etiology once medically stabilized. The patient has been seen in conjunction with Dr. Martino who agrees with the assessment and plan of care. - Patient Problems (1) Acute on chronic renal failure Current Visit: Yes Status: Acute Qualifiers: Acute renal failure type: unspecified Chronic kidney disease stage: stage 3 (moderate) Chronic kidney disease stage 3 subtype: stage 3a (GFR 45-59) Qualified Code(s): N17.9 - Acute kidney failure, unspecified; N18.31 - Chronic kidney disease, stage 3a (2) Anasarca Current Visit: Yes Status: Acute (3) Acute respiratory failure Current Visit: Yes Status: Acute (4) Altered mental status Current Visit: Yes Status: Acute (5) Hyperkalemia Current Visit: Yes Status: Acute (6) Sepsis Current Visit: Yes Status: Suspected Qualifiers: Sepsis type: sepsis due to unspecified organism Sepsis acute organ dysfunction status: with acute organ dysfunction Severe sepsis acute organ dysfunction type: acute renal failure Acute renal failure type: unspecified Severe sepsis shock status: without septic shock Qualified Code(s): A41.9 - Sepsis, unspecified organism; R65.20 - Severe sepsis without septic shock; N17.9 - Acute kidney failure, unspecified (7) Sinus bradycardia Current Visit: Yes Status: Acute (8) Hypotension Current Visit: Yes Status: Acute (9) Acute HFrEF (heart failure with reduced ejection fraction) Current Visit: Yes Status: Acute (10) Cardiomyopathy Current Visit: Yes Status: Chronic Qualifiers: Cardiomyopathy type: unspecified Qualified Code(s): I42.9 - Cardiomyopathy, unspecified (11) History of ETOH abuse Current Visit: Yes Status: Chronic (12) History of cocaine use Current Visit: Yes Status: Chronic (13) Cellulitis of right lower extremity Current Visit: Yes Status: Acute (14) Diabetes Current Visit: Yes Status: Chronic (15) History of CVA (cerebrovascular accident) Current Visit: Yes Status: Acute (16) Anemia Current Visit: Yes Status: Chronic Qualifiers: Anemia type: unspecified type Qualified Code(s): D64.9 - Anemia, unspecified (17) Thrombocytopenia Current Visit: Yes Status: Acute (18) Hepatitis C Current Visit: Yes Status: Chronic (19) Elevated troponin Current Visit: Yes Status: Acute Subjective Date of service: 07/24/20 Principal diagnosis: ARF Interval history: pt remains intubated, sedated. s/p HD yesterday evening and currently receiving HD today. tele reviewed - in SR with SB HR 32bpm noted yesterday evening around 2200, no bradycardia noted since then. Objective Last Vital Signs Temp 97.9 F 07/24/20 09:00 Pulse 73 07/24/20 10:00 Resp 19 07/24/20 09:00 BP 103/55 07/24/20 10:00 Pulse Ox 100 07/24/20 09:00 - Physical Examination General: Other (Intubated, Sedated) HEENT: Positive: Other (Intubated, Sedated) Neck: Positive: neck supple Cardiac: Positive: Reg Rate and Rhythm, S1/S2 Lungs: Positive: Decreased Breath Sounds, Oxygen, Ventilated Respirations Neuro: Positive: Other (Intubated, Sedated) Abdomen: Positive: Unremarkable Skin: Negative: Rash Extremities: Present: upper extr. pulses, lower extr. pulses. Absent: edema - Labs and Meds CBC 07/24/20 Range/Units Unknown WBC 7.8 (4.5-11.0) K/mm3 RBC 2.36 L (3.65-5.03) M/mm3 Hgb 7.5 L (11.8-15.2) gm/dl Hct 22.5 L (35.5-45.6) % Plt Count 38 L (140-440) K/mm3 Comprehensive Metabolic Panel 07/24/20 Range/Units 04:00 Sodium 144 (137-145) mmol/L Potassium 4.6 (3.6-5.0) mmol/L Chloride 110.8 H (98-107) mmol/L Carbon Dioxide 23 (22-30) mmol/L BUN 47 H (9-20) mg/dL Creatinine 4.4 H (0.8-1.3) mg/dL Glucose 94 (75-100) mg/dL Calcium 7.3 L (8.4-10.2) mg/dL - Imaging and Cardiology EKG: report reviewed, image reviewed Echo: report reviewed ((06/22/20) EF 35-40%. Mild LVH. LVSF med decreased. RVSF mildly reduced. Mild Pulm HTN. Left Atrium Mildly DIlated. Right Atrium Moderately dilated. Mild MR. Moderate TR. ) - Telemetry EKG Rhythm: Sinus Rhythm - EKG Sinus rhythms and dysrhythmias: sinus rhythm - Allied health notes Allied health notes reviewed: nursing
--- NOTE | 2020-07-24 11:12 | Progress Note ---
Assessment and Plan - Patient Problems (1) Acute on chronic renal failure Current Visit: Yes Status: Acute Qualifiers: Acute renal failure type: unspecified Chronic kidney disease stage: stage 3 (moderate) Chronic kidney disease stage 3 subtype: stage 3a (GFR 45-59) Qualified Code(s): N17.9 - Acute kidney failure, unspecified; N18.31 - Chronic kidney disease, stage 3a Plan to address problem: Acute on chronic kidney disease which was still worsening. Patient did not respond to IV diuretics. Hyperkalemia and metabolic acidosis were persisting. Dialysis was started 07/23/20. Continue Dialysis and monitor response (2) Anasarca Current Visit: Yes Status: Acute Plan to address problem: Patient has not responded to aggressive IV diuretics. Dialysis was started. (3) Hyperkalemia Current Visit: Yes Status: Acute Plan to address problem: Hyperkalemia persist despite medical management. 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 Patient has not responded to intravenous diuretics. Dialysis was started for fluid removal. (5) Sepsis Current Visit: Yes Status: Suspected Qualifiers: Sepsis type: sepsis due to unspecified organism Sepsis acute organ dysfunction status: with acute organ dysfunction Severe sepsis acute organ dysfunction type: acute renal failure Acute renal failure type: unspecified Severe sepsis shock status: without septic shock Qualified Code(s): A41.9 - Sepsis, unspecified organism; R65.20 - Severe sepsis without septic shock; N17.9 - Acute kidney failure, unspecified Plan to address problem: Continue empiric antibiotic. Follow-up cultures. (6) Hypertensive chronic kidney disease with stage 1 through stage 4 chronic kidney disease, or unspecified chronic kidney disease Current Visit: No Status: Acute Plan to address problem: Blood pressure is low. Follow-up (7) Type 2 diabetes mellitus with diabetic nephropathy Current Visit: No Status: Acute Plan to address problem: Blood sugar management by primary attending Subjective Date of service: 07/24/20 Principal diagnosis: RACQUEL Interval history: Patient seen lying in bed. Intubated on the ventilator. Tolerating dialysis with no complications. Q300/600. Ultrafiltration 2.5 L. Objective - Exam Narrative Exam: Middle-aged -[place] male lying in bed intubated on ventilator HEENT: NCAT, endotracheal tube intact Neck: Supple, no venous distention CVS: S1S2 RRR with no murmur, rub or gallop Chest: Clear to auscultation Abdomen: Protuberant, soft, nontender, no organomegaly, bowel sounds are present Extremities: 2-3+ pitting edema in both legs with hyperpigmentation Genitourinary deferred Skin with hyperpigmentation especially in the legs and feet Neuro: Unresponsive - Vital Signs Vital signs: Vital Signs - 12hr 07/23/20 07/23/20 07/24/20 23:30 23:31 00:00 Temperature Pulse Rate 57 L 57 L 58 L Pulse Rate [ 58 L From Monitor] Respiratory 20 18 Rate Blood Pressure 131/72 131/72 141/77 O2 Sat by Pulse 100 100 98 Oximetry O2 Sat by Pulse Oximetry [ Anterior Bilateral Throughout] 07/24/20 07/24/20 07/24/20 00:31 01:00 01:30 Temperature Pulse Rate 58 L 59 L 59 L Pulse Rate [ From Monitor] Respiratory 20 20 6 L Rate Blood Pressure 127/72 146/80 128/69 O2 Sat by Pulse 100 99 100 Oximetry O2 Sat by Pulse Oximetry [ Anterior Bilateral Throughout] 07/24/20 07/24/20 07/24/20 02:01 02:30 03:00 Temperature Pulse Rate 59 L 59 L 61 Pulse Rate [ From Monitor] Respiratory 9 L 20 20 Rate Blood Pressure 135/77 101/62 105/62 O2 Sat by Pulse 100 98 Oximetry O2 Sat by Pulse Oximetry [ Anterior Bilateral Throughout] 07/24/20 07/24/20 07/24/20 03:30 04:00 04:30 Temperature Pulse Rate 62 62 62 Pulse Rate [ 62 From Monitor] Respiratory 21 21 20 Rate Blood Pressure 108/62 99/60 93/54 O2 Sat by Pulse 100 40 L 96 Oximetry O2 Sat by Pulse Oximetry [ Anterior Bilateral Throughout] 07/24/20 07/24/20 07/24/20 05:00 05:07 05:09 Temperature Pulse Rate 63 63 63 Pulse Rate [ From Monitor] Respiratory 20 Rate Blood Pressure 97/55 97/55 97/55 O2 Sat by Pulse 96 100 Oximetry O2 Sat by Pulse Oximetry [ Anterior Bilateral Throughout] 07/24/20 07/24/20 07/24/20 05:30 06:00 06:30 Temperature Pulse Rate 64 64 64 Pulse Rate [ From Monitor] Respiratory 20 21 20 Rate Blood Pressure 95/51 93/51 97/53 O2 Sat by Pulse 97 99 100 Oximetry O2 Sat by Pulse Oximetry [ Anterior Bilateral Throughout] 07/24/20 07/24/20 07/24/20 06:45 07:00 07:15 Temperature Pulse Rate 64 65 65 Pulse Rate [ From Monitor] Respiratory 20 19 20 Rate Blood Pressure 92/52 97/51 98/51 O2 Sat by Pulse 98 100 99 Oximetry O2 Sat by Pulse Oximetry [ Anterior Bilateral Throughout] 07/24/20 07/24/20 07/24/20 07:30 07:45 08:00 Temperature 97.9 F Pulse Rate 66 66 65 Pulse Rate [ From Monitor] Respiratory 18 20 20 Rate Blood Pressure 89/56 95/51 95/50 O2 Sat by Pulse 100 100 100 Oximetry O2 Sat by Pulse Oximetry [ Anterior Bilateral Throughout] 07/24/20 07/24/20 07/24/20 08:09 08:15 08:30 Temperature Pulse Rate 66 67 67 Pulse Rate [ From Monitor] Respiratory 19 20 Rate Blood Pressure 95/50 100/69 94/54 O2 Sat by Pulse 100 100 100 Oximetry O2 Sat by Pulse Oximetry [ Anterior Bilateral Throughout] 07/24/20 07/24/20 07/24/20 08:45 09:00 09:15 Temperature 97.9 F Pulse Rate 67 67 68 Pulse Rate [ From Monitor] Respiratory 21 20 20 Rate Blood Pressure 92/51 96/52 102/55 O2 Sat by Pulse 100 100 99 Oximetry O2 Sat by Pulse 100 Oximetry [ Anterior Bilateral Throughout] 07/24/20 07/24/20 07/24/20 09:30 09:45 10:00 Temperature Pulse Rate 68 71 73 Pulse Rate [ From Monitor] Respiratory 14 15 17 Rate Blood Pressure 93/53 96/56 103/55 O2 Sat by Pulse 100 100 98 Oximetry O2 Sat by Pulse Oximetry [ Anterior Bilateral Throughout] 07/24/20 07/24/20 07/24/20 10:15 10:30 10:45 Temperature Pulse Rate 74 75 75 Pulse Rate [ From Monitor] Respiratory 16 Rate Blood Pressure 99/55 103/60 111/61 O2 Sat by Pulse Oximetry O2 Sat by Pulse Oximetry [ Anterior Bilateral Throughout] - Lab 07/25/20 04:00 07/25/20 04:00 Most recent lab results ABG pH 7.427 (7.320-7.450) 07/24/20 04:25 ABG O2 Saturation 91.4 (0-100) 07/24/20 04:25 Calcium 7.3 mg/dL (8.4-10.2) L 07/24/20 04:00 Phosphorus 5.80 mg/dL (2.5-4.5) H 07/22/20 10:30 Magnesium 2.10 mg/dL (1.7-2.3) 07/22/20 10:30 Medications & Allergies - Medications Allergies/Adverse Reactions: Allergies No Known Allergies Allergy (Verified 06/19/19 17:53) Home Medications: Home Medications Medication Instructions Recorded Confirmed Last Taken Type FLUoxetine [PROzac] 20 mg PO QDAY #14 capsule 06/23/19 06/21/20 Unknown Rx traZODone [Desyrel] 50 mg PO QHS #10 tablet 06/23/19 06/21/20 Unknown Rx Folic Acid 1 mg PO DAILY #30 tablet 06/25/19 06/21/20 Unknown Rx Nicotine [Habitrol] 14 mg TD DAILY #30 patch 06/25/19 06/21/20 Unknown Rx Thiamine [Vitamin B-1] 100 mg PO QDAY #30 tablet 06/25/19 06/21/20 Unknown Rx Aspirin EC [Halfprin EC] 81 mg PO QDAY #30 tablet. 07/26/19 06/21/20 Unknown Rx levETIRAcetam [Keppra TAB] 750 mg PO BID #60 tablet 07/26/19 06/21/20 Unknown Rx Furosemide [Lasix TAB] 40 mg PO QDAY #30 tablet 04/28/20 06/21/20 Unknown Rx Famotidine [Pepcid] 20 mg PO BID #60 tablet 07/05/20 Unknown Rx Insulin NPH, Human [NovoLIN N] 5 unit SUB-Q BIDDIAB 30 Days #10 ml 07/05/20 06/21/20 Unknown Rx amLODIPine 10 mg PO QDAY #30 tablet 07/05/20 Unknown Rx carvediloL [Coreg] 12.5 mg PO BID #60 tablet 07/05/20 Unknown Rx hydrALAZINE [Apresoline TAB] 50 mg PO Q8HR #30 tablet 07/06/20 Unknown Rx Active Medications: Generic Name Dose Route Start Last Admin Trade Name Freq PRN Reason Stop Dose Admin Lipase/Protease/Amylase 1 each 07/23/20 14:17 Lipase 10,500/Protease 25,000/Amylase 43,750 (Units) Dr Shell FEEDTUBE PRN PRN For Clogged Feeding Tube Aspirin 81 mg 07/19/20 10:00 07/24/20 10:05 Aspirin Ec 81 Mg Tab PO 81 mg QDAY JODIE Administration Atropine Sulfate 1 mg 07/23/20 09:03 07/23/20 22:15 Atropine 0.1% (1 Mg/10 Ml) Cardiac Syringe IV 1 mg PRN PRN Administration Bradycardia Dextrose 50 ml 07/23/20 03:28 07/23/20 06:00 Dextrose 50% In Water (25gm) 50 Ml Syringe IV 50 ml Q30MIN PRN Administration Hypoglycemia Protocol Famotidine 20 mg 07/18/20 22:00 07/24/20 10:05 Famotidine 20 Mg Tab PO 20 mg DAILY JODIE Administration Fluoxetine HCl 20 mg 07/19/20 10:00 07/24/20 10:04 Fluoxetine 20 Mg Cap PO 20 mg QDAY JODIE Administration Folic Acid 1 mg 07/19/20 10:00 07/24/20 10:05 Folic Acid 1 Mg Tab PO 1 mg DAILY JODIE Administration Hydralazine HCl 50 mg 07/18/20 14:00 07/24/20 05:09 Hydralazine 25 Mg Tab PO Not Given Q8HR JODIE Hydralazine HCl 20 mg 07/22/20 14:02 Hydralazine 20 Mg/1 Ml Inj IV Q4HR PRN Blood Pressure Hydrophilic Ointment 1 applic 07/22/20 10:02 Lip Therapy Vaseline TP Q2HR PRN Dry Lips Sodium Chloride 100 mls @ 999 mls/hr 07/23/20 11:13 Nacl 0.9% IV FRANCISCO PRN Hypotension Norepinephrine 4 mg in 250 mls @ 7.5 mls/hr 07/24/20 10:00 07/24/20 10:03 Levophed Drip 4 Mg/Ns 250 Ml IV 2 mcg/min TITR JODIE 7.5 mls/hr Administration Protocol 2 MCG/MIN Levetiracetam 750 mg 07/18/20 22:00 07/24/20 10:03 Levetiracetam 500 Mg/5 Ml Oral Liqd PO 750 mg BID JODIE Administration Midodrine 10 mg 07/24/20 14:00 Midodrine 5 Mg Tab PO TID JODIE Multi-Ingred Cream/Lotion/Oil/Oint 1 applic 07/22/20 10:02 Mineral Oil/Petrolatum, White Ophth Oint 3.5 Gm OU Q4HR PRN Dry Eye(s) Simple Syrup 15 ml 07/23/20 14:17 Simple Syrup 15 Ml FEEDTUBE PRN PRN Hypoglycemia Simple Syrup 30 ml 07/23/20 14:17 Simple Syrup 15 Ml FEEDTUBE PRN PRN Hypoglycemia Sodium Bicarbonate 1,300 mg 07/21/20 20:00 07/24/20 10:06 Sodium Bicarbonate 650 Mg Tab PO 1,300 mg BID JODIE Administration Sodium Bicarbonate 325 mg 07/23/20 14:17 Sodium Bicarbonate 325 Mg Tab FEEDTUBE PRN PRN For Clogged Feeding Tube Thiamine HCl 100 mg 07/19/20 10:00 07/24/20 10:04 Thiamine 100 Mg Tab PO 100 mg QDAY JODIE Administration Trazodone HCl 50 mg 07/18/20 22:00 07/23/20 22:10 Trazodone 50 Mg Tab PO 50 mg QHS JODIE Administration
--- NOTE | 2020-07-24 11:46 | Progress Note ---
Subjective Date of service: 07/24/20 Principal diagnosis: RACQUEL Interval history: Continue supportive measures HD per renal Type and screen for possible transfusion in the am No sedation Guarded prognosis CCT 31 minutes. Objective Vital Signs - 12hr 07/24/20 07/24/20 07/24/20 00:00 00:31 01:00 Temperature Pulse Rate 58 L 58 L 59 L Pulse Rate [ 58 L From Monitor] Respiratory 18 20 20 Rate Blood Pressure 141/77 127/72 146/80 O2 Sat by Pulse 98 100 99 Oximetry O2 Sat by Pulse Oximetry [ Anterior Bilateral Throughout] 07/24/20 07/24/20 07/24/20 01:30 02:01 02:30 Temperature Pulse Rate 59 L 59 L 59 L Pulse Rate [ From Monitor] Respiratory 6 L 9 L 20 Rate Blood Pressure 128/69 135/77 101/62 O2 Sat by Pulse 100 100 98 Oximetry O2 Sat by Pulse Oximetry [ Anterior Bilateral Throughout] 07/24/20 07/24/20 07/24/20 03:00 03:30 04:00 Temperature Pulse Rate 61 62 62 Pulse Rate [ 62 From Monitor] Respiratory 20 21 21 Rate Blood Pressure 105/62 108/62 99/60 O2 Sat by Pulse 100 40 L Oximetry O2 Sat by Pulse Oximetry [ Anterior Bilateral Throughout] 07/24/20 07/24/20 07/24/20 04:30 05:00 05:07 Temperature Pulse Rate 62 63 63 Pulse Rate [ From Monitor] Respiratory 20 20 Rate Blood Pressure 93/54 97/55 97/55 O2 Sat by Pulse 96 96 100 Oximetry O2 Sat by Pulse Oximetry [ Anterior Bilateral Throughout] 07/24/20 07/24/20 07/24/20 05:09 05:30 06:00 Temperature Pulse Rate 63 64 64 Pulse Rate [ From Monitor] Respiratory 20 21 Rate Blood Pressure 97/55 95/51 93/51 O2 Sat by Pulse 97 99 Oximetry O2 Sat by Pulse Oximetry [ Anterior Bilateral Throughout] 07/24/20 07/24/20 07/24/20 06:30 06:45 07:00 Temperature Pulse Rate 64 64 65 Pulse Rate [ From Monitor] Respiratory 20 20 19 Rate Blood Pressure 97/53 92/52 97/51 O2 Sat by Pulse 100 98 100 Oximetry O2 Sat by Pulse Oximetry [ Anterior Bilateral Throughout] 07/24/20 07/24/20 07/24/20 07:15 07:30 07:45 Temperature Pulse Rate 65 66 66 Pulse Rate [ From Monitor] Respiratory 20 18 20 Rate Blood Pressure 98/51 89/56 95/51 O2 Sat by Pulse 99 100 100 Oximetry O2 Sat by Pulse Oximetry [ Anterior Bilateral Throughout] 07/24/20 07/24/20 07/24/20 08:00 08:09 08:15 Temperature 97.9 F Pulse Rate 65 66 67 Pulse Rate [ From Monitor] Respiratory 20 19 Rate Blood Pressure 95/50 95/50 100/69 O2 Sat by Pulse 100 100 100 Oximetry O2 Sat by Pulse Oximetry [ Anterior Bilateral Throughout] 07/24/20 07/24/20 07/24/20 08:30 08:45 09:00 Temperature 97.9 F Pulse Rate 67 67 67 Pulse Rate [ From Monitor] Respiratory 20 21 20 Rate Blood Pressure 94/54 92/51 96/52 O2 Sat by Pulse 100 100 100 Oximetry O2 Sat by Pulse 100 Oximetry [ Anterior Bilateral Throughout] 07/24/20 07/24/20 07/24/20 09:15 09:30 09:45 Temperature Pulse Rate 68 68 71 Pulse Rate [ From Monitor] Respiratory 20 14 15 Rate Blood Pressure 102/55 93/53 96/56 O2 Sat by Pulse 99 100 100 Oximetry O2 Sat by Pulse Oximetry [ Anterior Bilateral Throughout] 07/24/20 07/24/20 07/24/20 10:00 10:15 10:30 Temperature Pulse Rate 73 74 75 Pulse Rate [ From Monitor] Respiratory 17 16 Rate Blood Pressure 103/55 99/55 103/60 O2 Sat by Pulse 98 Oximetry O2 Sat by Pulse Oximetry [ Anterior Bilateral Throughout] 07/24/20 07/24/20 07/24/20 10:45 11:00 11:14 Temperature Pulse Rate 75 76 77 Pulse Rate [ From Monitor] Respiratory Rate Blood Pressure 111/61 110/62 111/62 O2 Sat by Pulse Oximetry O2 Sat by Pulse Oximetry [ Anterior Bilateral Throughout] 07/24/20 07/24/20 11:15 11:30 Temperature Pulse Rate 77 77 Pulse Rate [ From Monitor] Respiratory Rate Blood Pressure 111/62 114/63 O2 Sat by Pulse Oximetry O2 Sat by Pulse Oximetry [ Anterior Bilateral Throughout] Constitutional: comatose ENT: other (intubated ) Ascultation: Bilateral: diminished breath sounds Neurologic: non-focal exam, unable to assess CBC and BMP: 03/16/21 Unknown 07/24/20 04:00 ABG, PT/INR, D-dimer: ABG ABG pH 7.427 (7.320-7.450) 07/24/20 04:25 POC ABG pCO2 34.1 mmHg (32.0-48.0) 07/24/20 04:25 POC ABG pO2 64.8 mmHg (83-108) L 07/24/20 04:25 POC ABG HCO3 22 07/24/20 04:25 ABG O2 Saturation 91.4 (0-100) 07/24/20 04:25 PT/INR, D-dimer PT 15.9 Sec. (12.2-14.9) H 07/22/20 10:30 INR 1.27 (0.87-1.13) H 07/22/20 10:30 D-Dimer 1036.46 ng/mlDDU (0-234) H 07/18/20 08:56 Abnormal lab findings: Abnormal Labs 07/18/20 07/18/20 07/18/20 08:56 08:56 08:56 WBC 3.5 L RBC 2.51 L Hgb 8.0 L Hct 24.5 L MCV 98 H RDW 18.3 H Plt Count 58 L [place] % (Auto) 11.1 H Lymph # (Auto) Seg Neuts % (Manual) Lymphocytes % (Manual) Nucleated RBC % Lymphocytes # (Manual) PT INR 1.18 H APTT D-Dimer ABG pH POC ABG pCO2 POC ABG pO2 ABG Hemoglobin ABG Oxyhemoglobin ABG Potassium ABG Chloride ABG Glucose Carboxyhemoglobin Sodium 146 H Potassium 5.2 H Chloride 117.3 H Carbon Dioxide 21 L BUN 52 H Creatinine 3.1 H Glucose 118 H POC Glucose Calcium 8.1 L Phosphorus AST ALT Alkaline Phosphatase Lactate Dehydrogenase CK-MB (CK-2) CK-MB (CK-2) Rel Index Troponin T 0.057 H C-Reactive Protein NT-Pro-B Natriuret Pep Albumin HDL Cholesterol 67 H TSH Arterial Blood Glucose Arterial Blood Ionized Calcium Hepatitis C Antibody 07/18/20 07/18/20 07/18/20 08:56 08:56 08:56 WBC RBC Hgb Hct MCV RDW Plt Count [place] % (Auto) Lymph # (Auto) Seg Neuts % (Manual) Lymphocytes % (Manual) Nucleated RBC % Lymphocytes # (Manual) PT INR APTT D-Dimer 1036.46 H ABG pH POC ABG pCO2 POC ABG pO2 ABG Hemoglobin ABG Oxyhemoglobin ABG Potassium ABG Chloride ABG Glucose Carboxyhemoglobin Sodium Potassium Chloride Carbon Dioxide BUN Creatinine Glucose POC Glucose Calcium Phosphorus AST ALT Alkaline Phosphatase Lactate Dehydrogenase CK-MB (CK-2) CK-MB (CK-2) Rel Index Troponin T C-Reactive Protein NT-Pro-B Natriuret Pep 4777 H Albumin HDL Cholesterol TSH 5.520 H Arterial Blood Glucose Arterial Blood Ionized Calcium Hepatitis C Antibody 07/18/20 07/18/20 07/18/20 10:36 18:56 19:00 WBC RBC Hgb Hct MCV RDW Plt Count [place] % (Auto) Lymph # (Auto) Seg Neuts % (Manual) Lymphocytes % (Manual) Nucleated RBC % Lymphocytes # (Manual) PT INR APTT D-Dimer ABG pH POC ABG pCO2 POC ABG pO2 ABG Hemoglobin ABG Oxyhemoglobin ABG Potassium ABG Chloride ABG Glucose Carboxyhemoglobin Sodium Potassium Chloride Carbon Dioxide BUN Creatinine Glucose 101 H POC Glucose 66 L 63 L Calcium Phosphorus AST ALT Alkaline Phosphatase Lactate Dehydrogenase 212 H CK-MB (CK-2) CK-MB (CK-2) Rel Index Troponin T C-Reactive Protein 2.10 H NT-Pro-B Natriuret Pep Albumin HDL Cholesterol TSH Arterial Blood Glucose Arterial Blood Ionized Calcium Hepatitis C Antibody 07/19/20 07/19/20 07/19/20 06:00 06:00 16:26 WBC 3.9 L RBC 2.34 L Hgb 7.5 L Hct 23.1 L MCV 99 H RDW 18.6 H Plt Count 52 L [place] % (Auto) 9.4 H Lymph # (Auto) 1.0 L Seg Neuts % (Manual) Lymphocytes % (Manual) Nucleated RBC % Lymphocytes # (Manual) PT INR APTT D-Dimer ABG pH POC ABG pCO2 POC ABG pO2 ABG Hemoglobin ABG Oxyhemoglobin ABG Potassium ABG Chloride ABG Glucose Carboxyhemoglobin Sodium Potassium 5.3 H Chloride 115.8 H Carbon Dioxide BUN 52 H Creatinine 3.4 H Glucose 114 H POC Glucose 123 H Calcium 7.7 L Phosphorus AST 77 H ALT < 5 L Alkaline Phosphatase 678 H Lactate Dehydrogenase CK-MB (CK-2) CK-MB (CK-2) Rel Index Troponin T C-Reactive Protein NT-Pro-B Natriuret Pep Albumin 2.2 L HDL Cholesterol TSH Arterial Blood Glucose Arterial Blood Ionized Calcium Hepatitis C Antibody 07/19/20 07/20/20 07/20/20 21:20 08:25 08:25 WBC 3.6 L RBC 2.54 L Hgb 8.0 L Hct 24.6 L MCV 97 H RDW 18.0 H Plt Count 47 L [place] % (Auto) 9.8 H Lymph # (Auto) 0.9 L Seg Neuts % (Manual) Lymphocytes % (Manual) Nucleated RBC % Lymphocytes # (Manual) PT INR APTT D-Dimer ABG pH POC ABG pCO2 POC ABG pO2 ABG Hemoglobin ABG Oxyhemoglobin ABG Potassium ABG Chloride ABG Glucose Carboxyhemoglobin Sodium Potassium 5.4 H Chloride 115.8 H Carbon Dioxide BUN 56 H Creatinine 3.8 H Glucose 110 H POC Glucose 142 H Calcium 7.9 L Phosphorus AST ALT Alkaline Phosphatase Lactate Dehydrogenase CK-MB (CK-2) CK-MB (CK-2) Rel Index Troponin T C-Reactive Protein NT-Pro-B Natriuret Pep Albumin HDL Cholesterol TSH Arterial Blood Glucose Arterial Blood Ionized Calcium Hepatitis C Antibody 07/20/20 07/20/20 07/20/20 11:27 16:34 21:27 WBC RBC Hgb Hct MCV RDW Plt Count [place] % (Auto) Lymph # (Auto) Seg Neuts % (Manual) Lymphocytes % (Manual) Nucleated RBC % Lymphocytes # (Manual) PT INR APTT D-Dimer ABG pH POC ABG pCO2 POC ABG pO2 ABG Hemoglobin ABG Oxyhemoglobin ABG Potassium ABG Chloride ABG Glucose Carboxyhemoglobin Sodium Potassium Chloride Carbon Dioxide BUN Creatinine Glucose POC Glucose 136 H 186 H 175 H Calcium Phosphorus AST ALT Alkaline Phosphatase Lactate Dehydrogenase CK-MB (CK-2) CK-MB (CK-2) Rel Index Troponin T C-Reactive Protein NT-Pro-B Natriuret Pep Albumin HDL Cholesterol TSH Arterial Blood Glucose Arterial Blood Ionized Calcium Hepatitis C Antibody 07/21/20 07/22/20 07/22/20 10:31 07:25 10:30 WBC 3.8 L RBC 2.53 L Hgb 7.9 L Hct 24.7 L MCV 98 H RDW 18.7 H Plt Count 35 L [place] % (Auto) Lymph # (Auto) Seg Neuts % (Manual) 92.0 H Lymphocytes % (Manual) 6.0 L Nucleated RBC % 13.0 H Lymphocytes # (Manual) 0.2 L PT INR APTT D-Dimer ABG pH POC ABG pCO2 POC ABG pO2 ABG Hemoglobin ABG Oxyhemoglobin ABG Potassium ABG Chloride ABG Glucose Carboxyhemoglobin Sodium Potassium 5.3 H 5.6 H Chloride 115.0 H 115.1 H Carbon Dioxide 18 L BUN 59 H 61 H Creatinine 4.3 H 4.6 H Glucose 109 H POC Glucose Calcium 7.6 L 7.6 L Phosphorus AST ALT Alkaline Phosphatase Lactate Dehydrogenase CK-MB (CK-2) CK-MB (CK-2) Rel Index Troponin T C-Reactive Protein NT-Pro-B Natriuret Pep Albumin HDL Cholesterol TSH Arterial Blood Glucose Arterial Blood Ionized Calcium Hepatitis C Antibody 07/22/20 07/22/20 07/22/20 10:30 10:30 10:30 WBC RBC Hgb Hct MCV RDW Plt Count [place] % (Auto) Lymph # (Auto) Seg Neuts % (Manual) Lymphocytes % (Manual) Nucleated RBC % Lymphocytes # (Manual) PT 15.9 H INR 1.27 H APTT 38.3 H D-Dimer ABG pH POC ABG pCO2 POC ABG pO2 ABG Hemoglobin ABG Oxyhemoglobin ABG Potassium ABG Chloride ABG Glucose Carboxyhemoglobin Sodium 146 H Potassium 5.4 H Chloride 116.4 H Carbon Dioxide BUN 61 H Creatinine 4.6 H Glucose 115 H POC Glucose Calcium 7.5 L Phosphorus 5.80 H AST 66 H ALT < 5 L Alkaline Phosphatase 604 H Lactate Dehydrogenase CK-MB (CK-2) 10.9 H CK-MB (CK-2) Rel Index 16.2 H Troponin T 0.047 H C-Reactive Protein NT-Pro-B Natriuret Pep Albumin 2.1 L HDL Cholesterol TSH Arterial Blood Glucose Arterial Blood Ionized Calcium Hepatitis C Antibody 07/22/20 07/23/20 07/23/20 11:10 03:38 03:47 WBC RBC Hgb Hct MCV RDW Plt Count [place] % (Auto) Lymph # (Auto) Seg Neuts % (Manual) Lymphocytes % (Manual) Nucleated RBC % Lymphocytes # (Manual) PT INR APTT D-Dimer ABG pH 7.203 L POC ABG pCO2 48.7 H 29.7 L POC ABG pO2 80.6 L 267.3 H ABG Hemoglobin 8.6 L 8.2 L ABG Oxyhemoglobin 91.1 L 98.2 H ABG Potassium 5.4 H 5.4 H ABG Chloride 122.0 H 122.0 H ABG Glucose 105 H 101 H Carboxyhemoglobin 2.0 H Sodium Potassium Chloride Carbon Dioxide BUN Creatinine Glucose POC Glucose 65 L Calcium Phosphorus AST ALT Alkaline Phosphatase Lactate Dehydrogenase CK-MB (CK-2) CK-MB (CK-2) Rel Index Troponin T C-Reactive Protein NT-Pro-B Natriuret Pep Albumin HDL Cholesterol TSH Arterial Blood Glucose 105 H 101 H Arterial Blood Ionized Calcium 4.5 L 4.4 L Hepatitis C Antibody 07/23/20 07/23/20 07/23/20 06:05 06:05 06:27 WBC RBC 2.36 L Hgb 7.5 L Hct 22.7 L MCV 96 H RDW 18.9 H Plt Count 42 L [place] % (Auto) Lymph # (Auto) Seg Neuts % (Manual) Lymphocytes % (Manual) Nucleated RBC % Lymphocytes # (Manual) PT INR APTT D-Dimer ABG pH POC ABG pCO2 POC ABG pO2 ABG Hemoglobin ABG Oxyhemoglobin ABG Potassium ABG Chloride ABG Glucose Carboxyhemoglobin Sodium Potassium 5.6 H Chloride 114.1 H Carbon Dioxide 17 L BUN 62 H Creatinine 5.1 H Glucose 215 H POC Glucose 114 H Calcium 7.3 L Phosphorus AST ALT Alkaline Phosphatase Lactate Dehydrogenase CK-MB (CK-2) CK-MB (CK-2) Rel Index Troponin T C-Reactive Protein NT-Pro-B Natriuret Pep Albumin HDL Cholesterol TSH Arterial Blood Glucose Arterial Blood Ionized Calcium Hepatitis C Antibody 07/23/20 07/23/20 07/24/20 11:36 19:20 04:00 WBC RBC Hgb Hct MCV RDW Plt Count [place] % (Auto) Lymph # (Auto) Seg Neuts % (Manual) Lymphocytes % (Manual) Nucleated RBC % Lymphocytes # (Manual) PT INR APTT D-Dimer ABG pH POC ABG pCO2 POC ABG pO2 ABG Hemoglobin ABG Oxyhemoglobin ABG Potassium ABG Chloride ABG Glucose Carboxyhemoglobin Sodium Potassium Chloride 110.8 H Carbon Dioxide BUN 47 H Creatinine 4.4 H Glucose POC Glucose 66 L Calcium 7.3 L Phosphorus AST ALT Alkaline Phosphatase Lactate Dehydrogenase CK-MB (CK-2) CK-MB (CK-2) Rel Index Troponin T C-Reactive Protein NT-Pro-B Natriuret Pep Albumin HDL Cholesterol TSH Arterial Blood Glucose Arterial Blood Ionized Calcium Hepatitis C Antibody Reactive A 07/24/20 07/24/20 04:25 Unknown WBC RBC 2.36 L Hgb 7.5 L Hct 22.5 L MCV 95 H RDW 18.4 H Plt Count 38 L [place] % (Auto) Lymph # (Auto) Seg Neuts % (Manual) Lymphocytes % (Manual) Nucleated RBC % Lymphocytes # (Manual) PT INR APTT D-Dimer ABG pH POC ABG pCO2 POC ABG pO2 64.8 L ABG Hemoglobin 7.9 L ABG Oxyhemoglobin ABG Potassium ABG Chloride 114.0 H ABG Glucose Carboxyhemoglobin Sodium Potassium Chloride Carbon Dioxide BUN Creatinine Glucose POC Glucose Calcium Phosphorus AST ALT Alkaline Phosphatase Lactate Dehydrogenase CK-MB (CK-2) CK-MB (CK-2) Rel Index Troponin T C-Reactive Protein NT-Pro-B Natriuret Pep Albumin HDL Cholesterol TSH Arterial Blood Glucose Arterial Blood Ionized Calcium 4.2 L Hepatitis C Antibody Allied health notes reviewed: nursing
[2020-07-24] MEDS: MIDODRINE 5 MG TAB PO SCH ×2 (16:45→20:43)
[2020-07-24] MEDS ORDERED: HEPARIN 10,000 UNIT/1 ML VIAL ONE (17:06)
[2020-07-24] MEDS: traZODone 50 MG TAB PO SCH (21:52)
[2020-07-25 05:42] LABS: Basophils % (Auto) 0.2 % (0.0-1.8); Eosinophils % (Auto) 0.1 % (0.0-4.3); Hematocrit 23.2 % (35.5-45.6); Hemoglobin 7.7 gm/dl (11.8-15.2); Lymphocytes # (Auto) 1.3 K/mm3 (1.2-5.4); Lymphocytes % (Auto) 14.5 % (13.4-35.0); Mean Corpuscular HGB Conc 33 % (32-34); Mean Corpuscular Volume 94 fl (84-94); Monocytes # (Auto) 0.8 K/mm3 (0.0-0.8); Monocytes % (Auto) 8.5 % (0.0-7.3); Red Blood Count 2.48 M/mm3 (3.65-5.03); Red Cell Distribution Width 18.4 % (13.2-15.2)
[2020-07-25 05:43] LABS: Platelet Count 44 K/mm3 (140-440)
[2020-07-25 05:53] LABS: Calcium 7.9 mg/dL (8.4-10.2)
[2020-07-25] MEDS: hydrALAZINE 25 MG TAB PO SCH ×3 (06:30→21:49)
--- NOTE | 2020-07-25 07:48 | Progress Note ---
Assessment and Plan Assessment and plan: --PUI/COVID-19 test negative/07/18/2020 --Acute on chronic kidney disease stage III; Worsening renal function and clinical status Nephrology initiated hemodialysis yesterday Management per nephrology, HD per schedule --Acute hypoxic respiratory failure: Intubated 07/22/2020 On mechanical ventilation Pulmonary critical following --Non-STEMI-2 : probably secondary to respiratory failure, chronic kidney disease Patient has risk factors, cardiology following, --Bradycardia; improved Heart rate in 60s today Hold beta-blockers,Atropine as needed --Hyperkalemia; resolved after hemodialysis HD per schedule, monitor electrolytes Nephrology following --hyponatremia; resolved Closely monitor electrolytes --Acute toxic metabolic encephalopathy; CT head without contrast, no acute abnormality --Severe protein calorie malnutrition/hypoalbuminemia, nutrition supplements, tube feeding, nutrition consult --Thrombocytopenia; check HIT antibodies --Sepsis hypothermia; Warm blankets, treat the underlying sepsis IV antibiotics, follow cultures --h/o right calf abscess:h/o MSSA sepsis on treatment We will continue Unasyn 2 g every 8 hourly As per ID recommendations completed 6 weeks of Unasyn 07/24/2020 --Type 2 diabetes mellitus; Blood sugars in the lower range, avoid hypoglycemia Accu-Chek sliding scale coverage ADA diet Long-acting insulin as needed, check HbA1c 8.3 last month --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; EF 35 to 40%[04/2020] Continue antifailure medications Input output monitoring, diuretics Cardiology following --History of seizure disorder; Seizure precautions, continue Keppra --History of CVA; with residual weakness Fall precautions, PT OT as needed --DVT prophylaxis;thrombocytopenia, no anticoagulation Continue SCDs --Full CODE STATUS --Restraint for safety I called patient's niece Amee Corcoran #[phone] as well as patient's aunt Viridiana Ambrosio [phone] On 07/22/2020 and discussed in detail patient's critical condition respiratory failure requiring intubation change of status, Renal failure needing dialysis ,verbalized understanding The high probability of a clinically significant, sudden or life threatening deterioration of the [multi] system(s) required my full and direct attention, intervention and personal management. The aggregate critical care time was [32] minutes. This time is in addition to time spent performing reported procedures but includes the following: [x] Data Review and interpretation [x] Patient assessment and monitoring of vital signs [x] Documentation [x] Medication orders and management Hospital course; 07/19/2020; unable to pass Ayala catheter, Consulted urology, continue supportive care, COVID-19 test negative 07/20/2020; urology evaluation recommendation noted and appreciated Ayala catheter was inserted by urology, draining well MSSA bacteremia on long-term antibiotics 07/21/2020; patient is lethargic CT head without contrast, no acute abnormality Patient is afebrile 07/22/2020; patient had acute respiratory failure this morning CODE BLUE was called, patient was intubated on ventilatory support Pulmonary critical consulted, family patients aunt informed 07/23/2020; patient has severe bradycardia this morning, received atropine Cardiology following. Beta-blockers held, electrolytes corrected Patient's heart rate improved to 50s and 60s Cardiology following Nephrology planning hemodialysis trying to get consent from family 07/24/2020; patient received hemodialysis yesterday Remains intubated on ventilatory support Bradycardia significantly improved heart rate in 60s Completed 6 weeks of Unasyn for MSSA sepsis today 07/25/2020; patient remains on ventilatory support Receiving HD per schedule dual Wean as tolerated and extubate History Interval history: I have seen and examined the patient at the bedside Patient's chart and medications reviewed, patient is intubated on ventilatory support Unresponsive, noncommunicative Vital signs noted Hospitalist Physical - Constitutional Vitals: Temp Pulse Resp BP Pulse Ox 97.3 F L 72 16 175/87 100 07/25/20 03:40 07/25/20 07:12 07/25/20 07:00 07/25/20 07:12 07/25/20 07:12 General appearance: Present: mild distress, well-nourished, obese, other (Intubated on vent) - EENT Eyes: Present: PERRL, EOM intact - Neck Neck: Present: supple, normal ROM - Respiratory Respiratory effort: normal Respiratory: bilateral: diminished, rales, negative: rhonchi, wheezing - Cardiovascular Rhythm: regular Heart Sounds: Present: S1 & S2 - Extremities Extremities: no ischemia Extremity abnormal: edema - Abdominal General gastrointestinal: soft, non-tender, non-distended, normal bowel sounds, other (Abdominal wall edema) - Integumentary Integumentary: Present: clear, clammy - Psychiatric Psychiatric: other (Intubated on vent) - Neurologic Neurologic: other (Intubated on vent) HEART Score - HEART Score Troponin: Troponin T 0.047 ng/mL (0.00-0.029) H 07/22/20 10:30 Results - Labs CBC & Chem 7: 07/25/20 04:00 07/25/20 04:00 Labs: Laboratory Last Values WBC 9.1 K/mm3 (4.5-11.0) 07/25/20 04:00 RBC 2.48 M/mm3 (3.65-5.03) L 07/25/20 04:00 Hgb 7.7 gm/dl (11.8-15.2) L 07/25/20 04:00 Hct 23.2 % (35.5-45.6) L 07/25/20 04:00 MCV 94 fl (84-94) 07/25/20 04:00 MCH 31 pg (28-32) 07/25/20 04:00 MCHC 33 % (32-34) 07/25/20 04:00 RDW 18.4 % (13.2-15.2) H 07/25/20 04:00 Plt Count 44 K/mm3 (140-440) L 07/25/20 04:00 Lymph % (Auto) 14.5 % (13.4-35.0) 07/25/20 04:00 Atkinson % (Auto) 8.5 % (0.0-7.3) H 07/25/20 04:00 Eos % (Auto) 0.1 % (0.0-4.3) 07/25/20 04:00 Baso % (Auto) 0.2 % (0.0-1.8) 07/25/20 04:00 Lymph # (Auto) 1.3 K/mm3 (1.2-5.4) 07/25/20 04:00 Atkinson # (Auto) 0.8 K/mm3 (0.0-0.8) 07/25/20 04:00 Eos # (Auto) 0.0 K/mm3 (0.0-0.4) 07/25/20 04:00 Baso # (Auto) 0.0 K/mm3 (0.0-0.1) 07/25/20 04:00 Add Manual Diff Complete 07/22/20 10:30 Total Counted 100 07/22/20 10:30 Seg Neutrophils % 76.7 % (40.0-70.0) H 07/25/20 04:00 Seg Neuts % (Manual) 92.0 % (40.0-70.0) H 07/22/20 10:30 Lymphocytes % (Manual) 6.0 % (13.4-35.0) L 07/22/20 10:30 Monocytes % (Manual) 2.0 % (0.0-7.3) 07/22/20 10:30 Nucleated RBC % 13.0 % (0.0-0.9) H 07/22/20 10:30 Seg Neutrophils # 7.0 K/mm3 (1.8-7.7) 07/25/20 04:00 Seg Neutrophils # Man 3.5 K/mm3 (1.8-7.7) 07/22/20 10:30 Band Neutrophils # 0.0 K/mm3 07/22/20 10:30 Lymphocytes # (Manual) 0.2 K/mm3 (1.2-5.4) L 07/22/20 10:30 Abs React Lymphs (Man) 0.0 K/mm3 07/22/20 10:30 Monocytes # (Manual) 0.1 K/mm3 (0.0-0.8) 07/22/20 10:30 Eosinophils # (Manual) 0.0 K/mm3 (0.0-0.4) 07/22/20 10:30 Basophils # (Manual) 0.0 K/mm3 (0.0-0.1) 07/22/20 10:30 Metamyelocytes # 0.0 K/mm3 07/22/20 10:30 Myelocytes # 0.0 K/mm3 07/22/20 10:30 Promyelocytes # 0.0 K/mm3 07/22/20 10:30 Blast Cells # 0.0 K/mm3 07/22/20 10:30 WBC Morphology Not Reportable 07/22/20 10:30 Hypersegmented Neuts Not Reportable 07/22/20 10:30 Hyposegmented Neuts Not Reportable 07/22/20 10:30 Hypogranular Neuts Not Reportable 07/22/20 10:30 Smudge Cells Not Reportable 07/22/20 10:30 Toxic Granulation Not Reportable 07/22/20 10:30 Toxic Vacuolation Not Reportable 07/22/20 10:30 Dohle Bodies Not Reportable 07/22/20 10:30 Pelger-Huet Anomaly Not Reportable 07/22/20 10:30 Clint Rods Not Reportable 07/22/20 10:30 Platelet Estimate Consistent w auto 07/22/20 10:30 Clumped Platelets Not Reportable 07/22/20 10:30 Plt Clumps, EDTA Not Reportable 07/22/20 10:30 Large Platelets Not Reportable 07/22/20 10:30 Giant Platelets Not Reportable 07/22/20 10:30 Platelet Satelliting Not Reportable 07/22/20 10:30 Plt Morphology Comment Not Reportable 07/22/20 10:30 RBC Morphology Not Reportable 07/22/20 10:30 Dimorphic RBCs Not Reportable 07/22/20 10:30 Polychromasia Not Reportable 07/22/20 10:30 Hypochromasia Not Reportable 07/22/20 10:30 Poikilocytosis Not Reportable 07/22/20 10:30 Anisocytosis Not Reportable 07/22/20 10:30 Microcytosis Rare 07/22/20 10:30 Macrocytosis Not Reportable 07/22/20 10:30 Spherocytes Not Reportable 07/22/20 10:30 Pappenheimer Bodies Not Reportable 07/22/20 10:30 Sickle Cells Not Reportable 07/22/20 10:30 Target Cells Not Reportable 07/22/20 10:30 Tear Drop Cells Not Reportable 07/22/20 10:30 Ovalocytes Not Reportable 07/22/20 10:30 Helmet Cells Not Reportable 07/22/20 10:30 [place] Bodies Not Reportable 07/22/20 10:30 [place] Rings Not Reportable 07/22/20 10:30 Sae Cells Not Reportable 07/22/20 10:30 Bite Cells Not Reportable 07/22/20 10:30 Crenated Cell Not Reportable 07/22/20 10:30 Elliptocytes Not Reportable 07/22/20 10:30 Acanthocytes (Spur) Not Reportable 07/22/20 10:30 Rouleaux Not Reportable 07/22/20 10:30 Hemoglobin C Crystals Not Reportable 07/22/20 10:30 Schistocytes Not Reportable 07/22/20 10:30 Malaria parasites Not Reportable 07/22/20 10:30 Carl Bodies Not Reportable 07/22/20 10:30 Hem Pathologist Commnt No 07/22/20 10:30 PT 15.9 Sec. (12.2-14.9) H 07/22/20 10:30 INR 1.27 (0.87-1.13) H 07/22/20 10:30 APTT 38.3 Sec. (24.2-36.6) H 07/22/20 10:30 D-Dimer 1036.46 ng/mlDDU (0-234) H 07/18/20 08:56 ABG pH 7.497 (7.320-7.450) H 07/25/20 03:57 POC ABG pCO2 32.7 mmHg (32.0-48.0) 07/25/20 03:57 POC ABG pO2 62.7 mmHg (83-108) L 07/25/20 03:57 POC ABG HCO3 24.8 07/25/20 03:57 ABG O2 Saturation 91.4 (0-100) 07/25/20 03:57 POC ABG Base Excess 1.7 07/25/20 03:57 ABG Hemoglobin 8.5 (12.0-17.5) L 07/25/20 03:57 ABG Oxyhemoglobin 90.1 (94-98) L 07/25/20 03:57 ABG Methemoglobin 0.3 (0.0-1.5) 07/25/20 03:57 ABG Sodium 138.7 mmol/L (136.0-145.0) 07/25/20 03:57 ABG Potassium 4.0 mmol/L (3.40-4.50) 07/25/20 03:57 ABG Chloride 110.0 mmol/L (98-107) H 07/25/20 03:57 ABG Glucose 157 mg/dL (65-95) H 07/25/20 03:57 Carboxyhemoglobin 1.1 (0.5-1.5) 07/25/20 03:57 FiO2 % 40 07/25/20 03:57 Sodium 141 mmol/L (137-145) 07/25/20 04:00 Potassium 4.1 mmol/L (3.6-5.0) 07/25/20 04:00 Chloride 105.5 mmol/L (98-107) 07/25/20 04:00 Carbon Dioxide 26 mmol/L (22-30) 07/25/20 04:00 Anion Gap 14 mmol/L 07/25/20 04:00 BUN 38 mg/dL (9-20) H 07/25/20 04:00 Creatinine 4.1 mg/dL (0.8-1.3) H 07/25/20 04:00 Estimated GFR 18 ml/min 07/25/20 04:00 BUN/Creatinine Ratio 9 % 07/25/20 04:00 Glucose 160 mg/dL (75-100) H 07/25/20 04:00 POC Glucose 140 mg/dL (70-105) H 07/25/20 00:12 Lactic Acid 0.80 mmol/L (0.7-2.0) 07/18/20 08:56 Calcium 7.9 mg/dL (8.4-10.2) L 07/25/20 04:00 Phosphorus 5.80 mg/dL (2.5-4.5) H 07/22/20 10:30 Magnesium 2.10 mg/dL (1.7-2.3) 07/22/20 10:30 Ferritin 198.6 ng/mL (30.0-300.0) 07/18/20 10:36 Total Bilirubin 0.30 mg/dL (0.1-1.2) 07/22/20 10:30 Direct Bilirubin 0.2 mg/dL (0-0.2) 07/19/20 06:00 Indirect Bilirubin 0.2 mg/dL 07/19/20 06:00 AST 66 units/L (5-40) H 07/22/20 10:30 ALT < 5 units/L (7-56) L 07/22/20 10:30 Alkaline Phosphatase 604 units/L (35-129) H 07/22/20 10:30 Ammonia 41.0 umol/L (25-60) 07/18/20 08:56 Lactate Dehydrogenase 212 units/L (91-180) H 07/18/20 10:36 Total Creatine Kinase 67 units/L (55-170) 07/22/20 10:30 CK-MB (CK-2) 10.9 ng/mL (0.0-4.0) H 07/22/20 10:30 CK-MB (CK-2) Rel Index 16.2 (0-4) H 07/22/20 10:30 Troponin T 0.047 ng/mL (0.00-0.029) H 07/22/20 10:30 C-Reactive Protein 2.10 mg/dL (0.00-1.30) H 07/18/20 10:36 NT-Pro-B Natriuret Pep 4777 pg/mL (0-900) H 07/18/20 08:56 Total Protein 6.4 g/dL (6.3-8.2) 07/22/20 10:30 Albumin 2.1 g/dL (3.9-5) L 07/22/20 10:30 Albumin/Globulin Ratio 0.5 % 07/22/20 10:30 Triglycerides 65 mg/dL (2-149) 07/18/20 08:56 Cholesterol 157 mg/dL (50-199) 07/18/20 08:56 LDL Cholesterol Direct 95 mg/dL (50-130) 07/18/20 08:56 HDL Cholesterol 67 mg/dL (40-59) H 07/18/20 08:56 Cholesterol/HDL Ratio 2.34 % 07/18/20 08:56 Procalcitonin 0.10 ng/mL (<0.15) 07/18/20 10:36 TSH 5.520 mlU/mL (0.270-4.200) H 07/18/20 08:56 Free T4 0.84 ng/dL (0.76-1.46) 07/18/20 08:56 Arterial Blood Glucose 157 mg/dL (65-95) H 07/25/20 03:57 Arterial Blood Ionized Calcium 4.3 mg/dL (4.6-5.3) L 07/25/20 03:57 Random Vancomycin 18.6 ug/mL (0-40.0) 07/25/20 05:00 Coronavirus (PCR) Negative (Negative) 07/18/20 12:07 Hepatitis A IgM Ab Non-reactive (NonReactive) 07/23/20 19:20 Hep Bs Antigen Non-reactive (Negative) 07/23/20 19:20 Hep B Core IgM Ab Non-reactive (NonReactive) 07/23/20 19:20 Hepatitis C Antibody Reactive (NonReactive) A 07/23/20 19:20 Blood Type A POSITIVE 07/18/20 08:56 Antibody Screen Negative 07/18/20 08:56 Ayala/IV: Voiding Method Indwelling Catheter Active Medications - Current Medications Current Medications: Generic Name Dose Route Start Last Admin Trade Name Freq PRN Reason Stop Dose Admin Lipase/Protease/Amylase 1 each 07/23/20 14:17 Lipase 10,500/Protease 25,000/Amylase 43,750 (Units) Dr Shell FEEDTUBE PRN PRN For Clogged Feeding Tube Aspirin 81 mg 07/19/20 10:00 07/24/20 10:05 Aspirin Ec 81 Mg Tab PO 81 mg QDAY JODIE Administration Atropine Sulfate 1 mg 07/23/20 09:03 07/23/20 22:15 Atropine 0.1% (1 Mg/10 Ml) Cardiac Syringe IV 1 mg PRN PRN Administration Bradycardia Dextrose 50 ml 07/23/20 03:28 07/23/20 06:00 Dextrose 50% In Water (25gm) 50 Ml Syringe IV 50 ml Q30MIN PRN Administration Hypoglycemia Protocol Famotidine 20 mg 07/18/20 22:00 07/24/20 10:05 Famotidine 20 Mg Tab PO 20 mg DAILY JODIE Administration Fluoxetine HCl 20 mg 07/19/20 10:00 07/24/20 10:04 Fluoxetine 20 Mg Cap PO 20 mg QDAY JODIE Administration Folic Acid 1 mg 07/19/20 10:00 07/24/20 10:05 Folic Acid 1 Mg Tab PO 1 mg DAILY JODIE Administration Hydralazine HCl 50 mg 07/18/20 14:00 07/25/20 06:30 Hydralazine 25 Mg Tab PO 50 mg Q8HR JODIE Administration Hydralazine HCl 20 mg 07/22/20 14:02 Hydralazine 20 Mg/1 Ml Inj IV Q4HR PRN Blood Pressure Hydrophilic Ointment 1 applic 07/22/20 10:02 Lip Therapy Vaseline TP Q2HR PRN Dry Lips Sodium Chloride 100 mls @ 999 mls/hr 07/23/20 11:13 Nacl 0.9% IV FRANCISCO PRN Hypotension Norepinephrine 4 mg in 250 mls @ 7.5 mls/hr 07/24/20 10:00 07/24/20 15:35 Levophed Drip 4 Mg/Ns 250 Ml IV 0 mcg/min TITR JODIE 0 mls/hr Titration Protocol 2 MCG/MIN Levetiracetam 750 mg 07/18/20 22:00 07/24/20 21:45 Levetiracetam 500 Mg/5 Ml Oral Liqd PO 750 mg BID JODIE Administration Midodrine 10 mg 07/24/20 14:00 07/24/20 20:43 Midodrine 5 Mg Tab PO 10 mg TID JODIE Administration Multi-Ingred Cream/Lotion/Oil/Oint 1 applic 07/22/20 10:02 Mineral Oil/Petrolatum, White Ophth Oint 3.5 Gm OU Q4HR PRN Dry Eye(s) Simple Syrup 15 ml 07/23/20 14:17 Simple Syrup 15 Ml FEEDTUBE PRN PRN Hypoglycemia Simple Syrup 30 ml 07/23/20 14:17 Simple Syrup 15 Ml FEEDTUBE PRN PRN Hypoglycemia Sodium Bicarbonate 1,300 mg 07/21/20 20:00 07/24/20 21:45 Sodium Bicarbonate 650 Mg Tab PO 1,300 mg BID JODIE Administration Sodium Bicarbonate 325 mg 07/23/20 14:17 Sodium Bicarbonate 325 Mg Tab FEEDTUBE PRN PRN For Clogged Feeding Tube Thiamine HCl 100 mg 07/19/20 10:00 07/24/20 10:04 Thiamine 100 Mg Tab PO 100 mg QDAY JODIE Administration Trazodone HCl 50 mg 07/18/20 22:00 07/24/20 21:52 Trazodone 50 Mg Tab PO 50 mg QHS JODIE Administration Nutrition/Malnutrition Assess - Dietary Evaluation Nutrition/Malnutrition Findings: Nutrition Notes Start: 07/19/20 09:53 Freq: Status: Active Protocol: Document 07/23/20 09:37 CW (Rec: 07/23/20 09:46 CW [id number]) Nutrition Notes Need for Assessment generated from: MD Order Initial or Follow up Reassessment Current Diagnosis CKD(stage I-IV),Diabetes, Sepsis,Heart Failure, Respiratory Failure,Stroke Other Pertinent Diagnosis Acute toxic metabolic encephalopathy, Bradycardia, ( R) LE wound, Anasarca Current Diet No current Diet Order Labs/Tests K 5.6 BUN 62 Cr 5.1 BG 215 Pertinent Medications Dopamine Drip Bumetanide D50w 50 ml Height 5 ft 9 in Weight 114.76 kg [place] Body Weight (kg) 72.72 BMI 37.3 Weight change and time frame weight stable Weight Status Obese Subjective/Other Information F/U for TF consult, vent status, renal functioning and propofol usage. MD consult placed. Propofol no longer being given. Recommend start Nepro d/t poor kidney functioning. TF providing protein less than needs d/t poor kidney functioning. Pt previously refused HD. Awaiting amily contact for POC . Percent of energy/protein needs met: 0%/0% Burn Absent Trauma Absent Difficulty In Swallowing Skin Integrity/Comment Diabetic ulcers to BLE Current % PO Negligible Minimum of two criteria No Fluid Accumulation Moderate to Severe (severe) #1 Nutrition Diagnosis Inadequate oral intake Etiology respiratory failure As Evidenced by Signs and Symptoms pt on mechanical vent and unable to feed PO Diagnosis Progress(for reassessment Continues documentation) Is patient on ventilator? Yes Is Patient Ambulatory and/or Out of Bed No REE-([facility]-confined to bed) 2330.148 Kcal/Kg value to use for calculation 16 Approximate Energy Requirements Using 1836 kcal/Kg Calculation Used for Recommendations Kcal/kg Additional Notes Protein needs: >144g (>1.9g/ kgIBW) Fluid needs 1000 - 1500 ml/day Nutrition Intervention Change Diet Order: Initiate TF regimen of Nepro Nutrition Support: Nepro at 42 ml/h with a free water flush of 125 ml q4h. Kcal 1,814 Protein (gm) 82 Fluid (mL) 733 Goal #1 Start EN support to meet nutrient needs Anticipated Discharge Needs: Unable to determine at this time Follow-Up By: 07/25/20 Additional Comments F/U TF initiation and tolerance, Vent status POC
[2020-07-25] MEDS: MIDODRINE 5 MG TAB PO SCH (08:14)
--- NOTE | 2020-07-25 11:00 | Progress Note ---
Assessment and Plan Cont present supportive management. Cont volume and electrolyte management per nephrology/HD. No BB at this time in setting of hypotension requiring vasopressor support. No ACEI/ARB at this time in setting of renal insufficiency and hypotension. Can consider ischemic evaluation for further investigation of CMP etiology once medically stabilized. Persistent anemia and thrombocytopenia noted - for type and screen and possible transfusion in the am per critical care team. Per primary team, check HIT antibodies. The patient has been seen in conjunction with Dr. Martino who agrees with the assessment and plan of care. - Patient Problems (1) Acute on chronic renal failure Current Visit: Yes Status: Acute Qualifiers: Acute renal failure type: unspecified Chronic kidney disease stage: stage 3 (moderate) Chronic kidney disease stage 3 subtype: stage 3a (GFR 45-59) Qualified Code(s): N17.9 - Acute kidney failure, unspecified; N18.31 - Chronic kidney disease, stage 3a (2) Anasarca Current Visit: Yes Status: Acute (3) Acute respiratory failure Current Visit: Yes Status: Acute (4) Altered mental status Current Visit: Yes Status: Acute (5) Hyperkalemia Current Visit: Yes Status: Acute (6) Sepsis Current Visit: Yes Status: Suspected Qualifiers: Sepsis type: sepsis due to unspecified organism Sepsis acute organ dysfunction status: with acute organ dysfunction Severe sepsis acute organ dysfunction type: acute renal failure Acute renal failure type: unspecified Severe sepsis shock status: without septic shock Qualified Code(s): A41.9 - Sepsis, unspecified organism; R65.20 - Severe sepsis without septic shock; N17.9 - Acute kidney failure, unspecified (7) Sinus bradycardia Current Visit: Yes Status: Acute (8) Hypotension Current Visit: Yes Status: Acute (9) Acute HFrEF (heart failure with reduced ejection fraction) Current Visit: Yes Status: Acute (10) Cardiomyopathy Current Visit: Yes Status: Chronic Qualifiers: Cardiomyopathy type: unspecified Qualified Code(s): I42.9 - Cardiomyopathy, unspecified (11) History of ETOH abuse Current Visit: Yes Status: Chronic (12) History of cocaine use Current Visit: Yes Status: Chronic (13) Cellulitis of right lower extremity Current Visit: Yes Status: Acute (14) Diabetes Current Visit: Yes Status: Chronic (15) History of CVA (cerebrovascular accident) Current Visit: Yes Status: Acute (16) Anemia Current Visit: Yes Status: Chronic Qualifiers: Anemia type: unspecified type Qualified Code(s): D64.9 - Anemia, unspecified (17) Thrombocytopenia Current Visit: Yes Status: Acute (18) Hepatitis C Current Visit: Yes Status: Chronic (19) Elevated troponin Current Visit: Yes Status: Acute Subjective Date of service: 07/25/20 Principal diagnosis: RACQUEL Interval history: pt remains intubated, unresponsive. currently weaned off vasopressors. tele reviewed - in SR with HR 70s, no events noted overnight. Objective Last Vital Signs Temp 97.4 F L 07/25/20 08:00 Pulse 70 07/25/20 09:30 Resp 20 07/25/20 09:30 BP 146/78 07/25/20 09:30 Pulse Ox 95 07/25/20 09:30 - Physical Examination General: Other (Intubated, unresponsive) HEENT: Positive: Other (Intubated, Sedated) Neck: Positive: neck supple Cardiac: Positive: Reg Rate and Rhythm, S1/S2 Lungs: Positive: Decreased Breath Sounds, Oxygen, Ventilated Respirations Neuro: Positive: Other (Intubated, unresponsive) Abdomen: Positive: Unremarkable Skin: Negative: Rash Extremities: Present: upper extr. pulses, lower extr. pulses. Absent: edema - Labs and Meds CBC 07/25/20 Range/Units 04:00 WBC 9.1 (4.5-11.0) K/mm3 RBC 2.48 L (3.65-5.03) M/mm3 Hgb 7.7 L (11.8-15.2) gm/dl Hct 23.2 L (35.5-45.6) % Plt Count 44 L (140-440) K/mm3 Lymph # (Auto) 1.3 (1.2-5.4) K/mm3 [place] # (Auto) 0.8 (0.0-0.8) K/mm3 Eos # (Auto) 0.0 (0.0-0.4) K/mm3 Baso # (Auto) 0.0 (0.0-0.1) K/mm3 Comprehensive Metabolic Panel 07/25/20 Range/Units 04:00 Sodium 141 (137-145) mmol/L Potassium 4.1 (3.6-5.0) mmol/L Chloride 105.5 (98-107) mmol/L Carbon Dioxide 26 (22-30) mmol/L BUN 38 H (9-20) mg/dL Creatinine 4.1 H (0.8-1.3) mg/dL Glucose 160 H (75-100) mg/dL Calcium 7.9 L (8.4-10.2) mg/dL - Imaging and Cardiology EKG: report reviewed, image reviewed Echo: report reviewed ((06/22/20) EF 35-40%. Mild LVH. LVSF med decreased. RVSF mildly reduced. Mild Pulm HTN. Left Atrium Mildly DIlated. Right Atrium Moderately dilated. Mild MR. Moderate TR. ) - Telemetry EKG Rhythm: Sinus Rhythm - EKG Sinus rhythms and dysrhythmias: sinus rhythm - Allied health notes Allied health notes reviewed: nursing
[2020-07-25] MEDS: SODIUM BICARBONATE 650 MG TAB PO SCH (11:30)
[2020-07-25] MEDS: levETIRAcetam 500 MG/5 ML ORAL LIQD PO SCH ×2 (11:31→21:50)
[2020-07-25] MEDS: FLUoxetine 20 MG CAP PO SCH (11:31)
[2020-07-25] MEDS: FAMOTIDINE 20 MG TAB PO SCH (11:31)
[2020-07-25] MEDS: ASPIRIN EC 81 MG TAB PO SCH (11:31)
[2020-07-25] MEDS: THIAMINE 100 MG TAB PO SCH (11:32)
[2020-07-25] MEDS: FOLIC ACID 1 MG TAB PO SCH (11:32)
[2020-07-25 15:10] LABS: Heparin-Induced Platelet Antib Negative (Negative); Unfractionated Heparin Negative (Negative)
--- NOTE | 2020-07-25 18:50 | Progress Note ---
Assessment and Plan - Patient Problems (1) Acute on chronic renal failure Current Visit: Yes Status: Acute Qualifiers: Qualified Code(s): N17.9 - Acute kidney failure, unspecified; N18.31 - Chronic kidney disease, stage 3a Plan to address problem: Acute on chronic kidney disease which was still worsening. Patient did not respond to IV diuretics. Hyperkalemia and metabolic acidosis were persisting. Dialysis was started 07/23/20. Continue Dialysis and monitor response (2) Anasarca Current Visit: Yes Status: Acute Plan to address problem: Patient has not responded to aggressive IV diuretics. Dialysis was started and volume status is improving slowly (3) Hyperkalemia Current Visit: Yes Status: Acute Plan to address problem: Hyperkalemia persisted despite medical management consult patient was started on dialysis for solute control. 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 Patient has not responded to intravenous diuretics. Dialysis was started for fluid removal. (5) Sepsis Current Visit: Yes Status: Suspected Qualifiers: Qualified Code(s): A41.9 - Sepsis, unspecified organism; R65.20 - Severe sepsis without septic shock; N17.9 - Acute kidney failure, unspecified Plan to address problem: Continue empiric antibiotic. Follow-up cultures. (6) Hypertensive chronic kidney disease with stage 1 through stage 4 chronic kidney disease, or unspecified chronic kidney disease Current Visit: No Status: Acute Plan to address problem: Blood pressure is improving. Follow-up (7) Type 2 diabetes mellitus with diabetic nephropathy Current Visit: No Status: Acute Plan to address problem: Blood sugar management by primary attending Subjective Date of service: 07/25/20 Principal diagnosis: RACQUEL Interval history: Patient seen lying in bed. Intubated on the ventilator. Not interacting Objective - Exam Narrative Exam: Middle-aged -[place] male lying in bed intubated on ventilator HEENT: NCAT, endotracheal tube intact Neck: Supple, no venous distention CVS: S1S2 RRR with no murmur, rub or gallop Chest: Coarse breath sounds with faint rhonchi Abdomen: Protuberant, soft, nontender, no organomegaly, bowel sounds are present Extremities: 2-3+ pitting edema in both legs with hyperpigmentation Genitourinary deferred Skin with hyperpigmentation especially in the legs and feet, dressing right leg Neuro: Unresponsive - Vital Signs Vital signs: Vital Signs - 12hr 07/25/20 07/25/20 07/25/20 07:00 07:12 07:30 Temperature Pulse Rate 75 72 72 Respiratory 16 14 Rate Blood Pressure 165/86 175/87 167/83 O2 Sat by Pulse 97 100 98 Oximetry O2 Sat by Pulse Oximetry [ Anterior Bilateral Throughout] 07/25/20 07/25/20 07/25/20 08:00 08:15 08:30 Temperature 97.4 F L Pulse Rate 70 71 Respiratory 14 16 Rate Blood Pressure 180/86 156/83 O2 Sat by Pulse 98 40 L 95 Oximetry O2 Sat by Pulse Oximetry [ Anterior Bilateral Throughout] 07/25/20 07/25/20 07/25/20 09:00 09:30 10:00 Temperature Pulse Rate 69 70 70 Respiratory 23 20 22 Rate Blood Pressure 152/79 146/78 144/80 O2 Sat by Pulse 95 95 93 Oximetry O2 Sat by Pulse Oximetry [ Anterior Bilateral Throughout] 07/25/20 07/25/20 07/25/20 10:30 11:00 11:30 Temperature Pulse Rate 70 71 72 Respiratory 20 23 13 Rate Blood Pressure 136/71 142/78 150/81 O2 Sat by Pulse 92 93 94 Oximetry O2 Sat by Pulse Oximetry [ Anterior Bilateral Throughout] 07/25/20 07/25/20 07/25/20 11:59 12:00 12:05 Temperature 97.4 F L Pulse Rate 70 72 Respiratory 16 Rate Blood Pressure 137/78 137/78 O2 Sat by Pulse 95 92 40 L Oximetry O2 Sat by Pulse Oximetry [ Anterior Bilateral Throughout] 07/25/20 07/25/20 07/25/20 12:30 13:00 13:30 Temperature Pulse Rate 70 68 68 Respiratory 21 19 18 Rate Blood Pressure 141/73 137/77 139/78 O2 Sat by Pulse 92 93 92 Oximetry O2 Sat by Pulse Oximetry [ Anterior Bilateral Throughout] 07/25/20 07/25/20 07/25/20 14:00 14:30 15:00 Temperature Pulse Rate 69 73 65 Respiratory 23 13 20 Rate Blood Pressure 134/77 130/77 126/71 O2 Sat by Pulse 100 94 95 Oximetry O2 Sat by Pulse Oximetry [ Anterior Bilateral Throughout] 07/25/20 07/25/20 07/25/20 15:30 16:00 16:27 Temperature Pulse Rate 66 67 Respiratory 22 24 Rate Blood Pressure 136/75 151/85 149/81 O2 Sat by Pulse 95 94 Oximetry O2 Sat by Pulse Oximetry [ Anterior Bilateral Throughout] 07/25/20 07/25/20 07/25/20 16:30 17:00 17:30 Temperature Pulse Rate 66 67 70 Respiratory 14 17 15 Rate Blood Pressure 154/87 143/80 144/75 O2 Sat by Pulse 93 94 94 Oximetry O2 Sat by Pulse Oximetry [ Anterior Bilateral Throughout] 07/25/20 07/25/20 07/25/20 18:00 18:08 18:12 Temperature 96.5 F L Pulse Rate 70 67 68 Respiratory 16 16 Rate Blood Pressure 139/76 134/74 137/75 O2 Sat by Pulse 97 Oximetry O2 Sat by Pulse 100 Oximetry [ Anterior Bilateral Throughout] 07/25/20 18:30 Temperature Pulse Rate 70 Respiratory Rate Blood Pressure 142/76 O2 Sat by Pulse Oximetry O2 Sat by Pulse Oximetry [ Anterior Bilateral Throughout] - Lab 07/25/20 04:00 07/25/20 04:00 Most recent lab results ABG pH 7.497 (7.320-7.450) H 07/25/20 03:57 ABG O2 Saturation 91.4 (0-100) 07/25/20 03:57 Calcium 7.9 mg/dL (8.4-10.2) L 07/25/20 04:00 Phosphorus 5.80 mg/dL (2.5-4.5) H 07/22/20 10:30 Magnesium 2.10 mg/dL (1.7-2.3) 07/22/20 10:30 Medications & Allergies - Medications Allergies/Adverse Reactions: Allergies No Known Allergies Allergy (Verified 06/19/19 17:53) Home Medications: Home Medications Medication Instructions Recorded Confirmed Last Taken Type FLUoxetine [PROzac] 20 mg PO QDAY #14 capsule 06/23/19 06/21/20 Unknown Rx traZODone [Desyrel] 50 mg PO QHS #10 tablet 06/23/19 06/21/20 Unknown Rx Folic Acid 1 mg PO DAILY #30 tablet 06/25/19 06/21/20 Unknown Rx Nicotine [Habitrol] 14 mg TD DAILY #30 patch 06/25/19 06/21/20 Unknown Rx Thiamine [Vitamin B-1] 100 mg PO QDAY #30 tablet 06/25/19 06/21/20 Unknown Rx Aspirin EC [Halfprin EC] 81 mg PO QDAY #30 tablet. 07/26/19 06/21/20 Unknown Rx levETIRAcetam [Keppra TAB] 750 mg PO BID #60 tablet 07/26/19 06/21/20 Unknown Rx Furosemide [Lasix TAB] 40 mg PO QDAY #30 tablet 04/28/20 06/21/20 Unknown Rx Famotidine [Pepcid] 20 mg PO BID #60 tablet 07/05/20 Unknown Rx Insulin NPH, Human [NovoLIN N] 5 unit SUB-Q BIDDIAB 30 Days #10 ml 07/05/2006/11 Unknown Rx amLODIPine 10 mg PO QDAY #30 tablet 07/05/20 Unknown Rx carvediloL [Coreg] 12.5 mg PO BID #60 tablet 07/05/20 Unknown Rx hydrALAZINE [Apresoline TAB] 50 mg PO Q8HR #30 tablet 07/06/20 Unknown Rx Active Medications: Generic Name Dose Route Start Last Admin Trade Name Freq PRN Reason Stop Dose Admin Lipase/Protease/Amylase 1 each 07/23/20 14:17 Lipase 10,500/Protease 25,000/Amylase 43,750 (Units) Dr Shell FEEDTUBE PRN PRN For Clogged Feeding Tube Aspirin 81 mg 07/19/20 10:00 07/25/20 11:31 Aspirin Ec 81 Mg Tab PO 81 mg QDAY JODIE Administration Atropine Sulfate 1 mg 07/23/20 09:03 07/23/20 22:15 Atropine 0.1% (1 Mg/10 Ml) Cardiac Syringe IV 1 mg PRN PRN Administration Bradycardia Dextrose 50 ml 07/23/20 03:28 07/23/20 06:00 Dextrose 50% In Water (25gm) 50 Ml Syringe IV 50 ml Q30MIN PRN Administration Hypoglycemia Protocol Famotidine 20 mg 07/18/20 22:00 07/25/20 11:31 Famotidine 20 Mg Tab PO 20 mg DAILY JODIE Administration Fluoxetine HCl 20 mg 07/19/20 10:00 07/25/20 11:31 Fluoxetine 20 Mg Cap PO 20 mg QDAY JODIE Administration Folic Acid 1 mg 07/19/20 10:00 07/25/20 11:32 Folic Acid 1 Mg Tab PO 1 mg DAILY JODIE Administration Hydralazine HCl 50 mg 07/18/20 14:00 07/25/20 16:27 Hydralazine 25 Mg Tab PO 50 mg Q8HR JODIE Administration Hydralazine HCl 20 mg 07/22/20 14:02 Hydralazine 20 Mg/1 Ml Inj IV Q4HR PRN Blood Pressure Hydrophilic Ointment 1 applic 07/22/20 10:02 Lip Therapy Vaseline TP Q2HR PRN Dry Lips Sodium Chloride 100 mls @ 999 mls/hr 07/23/20 11:13 Nacl 0.9% IV FRANCISCO PRN Hypotension Norepinephrine 4 mg in 250 mls @ 7.5 mls/hr 07/24/20 10:00 07/24/20 15:35 Levophed Drip 4 Mg/Ns 250 Ml IV 0 mcg/min TITR JODIE 0 mls/hr Titration Protocol 2 MCG/MIN Levetiracetam 750 mg 07/18/20 22:00 07/25/20 11:31 Levetiracetam 500 Mg/5 Ml Oral Liqd PO 750 mg BID JODIE Administration Multi-Ingred Cream/Lotion/Oil/Oint 1 applic 07/22/20 10:02 Mineral Oil/Petrolatum, White Ophth Oint 3.5 Gm OU Q4HR PRN Dry Eye(s) Simple Syrup 15 ml 07/23/20 14:17 Simple Syrup 15 Ml FEEDTUBE PRN PRN Hypoglycemia Simple Syrup 30 ml 07/23/20 14:17 Simple Syrup 15 Ml FEEDTUBE PRN PRN Hypoglycemia Sodium Bicarbonate 1,300 mg 07/21/20 20:00 07/25/20 11:30 Sodium Bicarbonate 650 Mg Tab PO 07/25/20 19:59 1,300 mg BID JODIE Administration Sodium Bicarbonate 325 mg 07/23/20 14:17 Sodium Bicarbonate 325 Mg Tab FEEDTUBE PRN PRN For Clogged Feeding Tube Thiamine HCl 100 mg 07/19/20 10:00 07/25/20 11:32 Thiamine 100 Mg Tab PO 100 mg QDAY JODIE Administration Trazodone HCl 50 mg 07/18/20 22:00 07/24/20 21:52 Trazodone 50 Mg Tab PO 50 mg QHS JODIE Administration
[2020-07-25] MEDS: traZODone 50 MG TAB PO SCH (21:50)
[2020-07-26 04:26] LABS: ABG Base Excess 3.6 mmol/L (-2.0-3.0); ABG HCO3 27.1 mmol/L (20.0-26.0); ABG Methemoglobin 0.4 % (0.0-1.5); ABG Oxygen Saturation 98.6 % (95.0-99.0); ABG PCO2 34.6 mm Hg; ABG PH 7.512 pH Units (7.350-7.450); ABG PO2 121.2 mm Hg (80.0-90.0)
[2020-07-26] MEDS: hydrALAZINE 25 MG TAB PO SCH ×3 (06:44→21:48)
[2020-07-26 06:58] LABS: Basophils % (Auto) 0.2 % (0.0-1.8); Eosinophils % (Auto) 0.2 % (0.0-4.3); Hematocrit 21.6 % (35.5-45.6); Hemoglobin 7.4 gm/dl (11.8-15.2); Lymphocytes # (Auto) 1.2 K/mm3 (1.2-5.4); Mean Corpuscular HGB Conc 34 % (32-34); Mean Corpuscular Volume 93 fl (84-94); Monocytes # (Auto) 0.7 K/mm3 (0.0-0.8); Monocytes % (Auto) 6.8 % (0.0-7.3); Red Blood Count 2.33 M/mm3 (3.65-5.03)
[2020-07-26 07:00] LABS: Platelet Count 50 K/mm3 (140-440)
--- NOTE | 2020-07-26 08:39 | Progress Note ---
Assessment and Plan Assessment and plan: --PUI/COVID-19 test negative/07/18/2020 --Acute on chronic kidney disease stage III; Vasomotor nephropathy, Nephrology initiated hemodialysis Management per nephrology, HD per schedule --Acute hypoxic respiratory failure: Intubated 07/22/2020 On mechanical ventilation Pulmonary critical following --Non-STEMI-2 : probably secondary to respiratory failure, chronic kidney disease Patient has risk factors, cardiology following, --Bradycardia; improved Heart rate in 60s today Hold beta-blockers,Atropine as needed --Hyperkalemia; resolved after hemodialysis HD per schedule, monitor electrolytes Nephrology following --hyponatremia; resolved Closely monitor electrolytes --Acute toxic metabolic encephalopathy; CT head without contrast, no acute abnormality --Severe protein calorie malnutrition/hypoalbuminemia, nutrition supplements, tube feeding, nutrition consult --Thrombocytopenia; HIT antibodies negative --Sepsis hypothermia; Warm blankets, treat the underlying sepsis IV antibiotics, follow cultures --h/o right calf abscess: --h/o MSSA sepsis: On Unasyn completed antibiotics on 07/24/2020 --Type 2 diabetes mellitus; Blood sugars in the lower range, avoid hypoglycemia Accu-Chek sliding scale coverage ADA diet Long-acting insulin as needed, check HbA1c 8.3 last month --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 systolic CHF; EF 35 to 40%[04/2020] Continue antifailure medications Input output monitoring, diuretics Cardiology following --History of seizure disorder; Seizure precautions, continue Keppra --History of CVA; with residual weakness Fall precautions, PT OT as needed --DVT prophylaxis;thrombocytopenia, no anticoagulation Continue SCDs --Full CODE STATUS --Restraint for safety I called patient's niece Amee Corcoran #[phone] as well as patient's aunt Viridiana Ambrosio [phone] On 07/22/2020 and discussed in detail patient's critical condition respiratory failure requiring intubation change of status, Renal failure needing dialysis ,verbalized understanding The high probability of a clinically significant, sudden or life threatening deterioration of the [multi] system(s) required my full and direct attention, intervention and personal management. The aggregate critical care time was [32] minutes. This time is in addition to time spent performing reported procedures but includes the following: [x] Data Review and interpretation [x] Patient assessment and monitoring of vital signs [x] Documentation [x] Medication orders and management Brief history; 64-year-old male patient with significant past medical history of diabetes mellitus chronic kidney disease CVA with residual weakness was admitted through emergency room with altered level of consciousness and unresponsiveness Patient was initially evaluated and noted to be in sepsis secondary to MSSA bacteremia on long-term antibiotics Patient's renal function progressively deteriorated, initially patient refused the options of dialysis which mobile application engineer has discussed with him, and then suddenly patient went into respiratory arrest requiring intubation and mechanical ventilation, patient was transferred to ICU, family members were contacted, nephrology got consent from the family and hemodialysis was initiated, patient remains intubated on ventilatory support. Wean as tolerated and extubate. Hospital course; 07/19/2020; unable to pass Ayala catheter, Consulted urology, continue supportive care, COVID-19 test negative 07/20/2020; urology evaluation recommendation noted and appreciated Ayala catheter was inserted by urology, draining well MSSA bacteremia on long-term antibiotics 07/21/2020; patient is lethargic CT head without contrast, no acute abnormality Patient is afebrile 07/22/2020; patient had acute respiratory failure this morning CODE BLUE was called, patient was intubated on ventilatory support Pulmonary critical consulted, family patients aunt informed 07/23/2020; patient has severe bradycardia this morning, received atropine Cardiology following. Beta-blockers held, electrolytes corrected Patient's heart rate improved to 50s and 60s Cardiology following Nephrology planning hemodialysis trying to get consent from family 07/24/2020; patient received hemodialysis yesterday Remains intubated on ventilatory support Bradycardia significantly improved heart rate in 60s Completed 6 weeks of Unasyn for MSSA sepsis today 07/25/2020; patient remains on ventilatory support Receiving HD per schedule dual Wean as tolerated and extubate 07/26/2020; patient remains on ventilatory support, wean as tolerated and extubate Initiated hemodialysis, HD per schedule, new set of blood culture sent History Interval history: I have seen and examined the patient at the bedside in ICU this morning Patient's chart and medications reviewed No new events reported by the nursing staff Patient remains orally intubated on ventilatory support Response to deep stimuli Vital signs noted Hospitalist Physical - Constitutional Vitals: Temp Pulse Resp BP Pulse Ox 98.3 F 70 18 127/70 99 07/26/20 04:00 07/26/20 07:51 07/26/20 06:00 07/26/20 07:51 07/26/20 07:51 General appearance: Present: no acute distress, well-nourished, obese, other (Intubated on vent) - EENT Eyes: Present: PERRL. Absent: scleral icterus - Neck Neck: Present: supple, other (ET tube and Dobbhoff in place) - Respiratory Respiratory: bilateral: diminished, rhonchi, negative: rales, wheezing - Cardiovascular Rhythm: regular Heart Sounds: Present: S1 & S2 - Extremities Extremities: no ischemia Extremity abnormal: edema - Abdominal General gastrointestinal: soft, non-tender, non-distended, normal bowel sounds, other (Edema) - Integumentary Integumentary: Present: clear, warm - Psychiatric Psychiatric: other (Intubated on vent) - Neurologic Neurologic: other (Intubated on vent) HEART Score - HEART Score Troponin: Troponin T 0.047 ng/mL (0.00-0.029) H 07/22/20 10:30 Results - Labs CBC & Chem 7: 07/26/20 07:00 07/25/20 04:00 Labs: Laboratory Last Values WBC 9.5 K/mm3 (4.5-11.0) 07/26/20 07:00 RBC 2.33 M/mm3 (3.65-5.03) L 07/26/20 07:00 Hgb 7.4 gm/dl (11.8-15.2) L 07/26/20 07:00 Hct 21.6 % (35.5-45.6) L 07/26/20 07:00 MCV 93 fl (84-94) 07/26/20 07:00 MCH 32 pg (28-32) 07/26/20 07:00 MCHC 34 % (32-34) 07/26/20 07:00 RDW 18.0 % (13.2-15.2) H 07/26/20 07:00 Plt Count 50 K/mm3 (140-440) L 07/26/20 07:00 Lymph % (Auto) 13.0 % (13.4-35.0) L 07/26/20 07:00 Becker % (Auto) 6.8 % (0.0-7.3) 07/26/20 07:00 Eos % (Auto) 0.2 % (0.0-4.3) 07/26/20 07:00 Baso % (Auto) 0.2 % (0.0-1.8) 07/26/20 07:00 Lymph # (Auto) 1.2 K/mm3 (1.2-5.4) 07/26/20 07:00 Becker # (Auto) 0.7 K/mm3 (0.0-0.8) 07/26/20 07:00 Eos # (Auto) 0.0 K/mm3 (0.0-0.4) 07/26/20 07:00 Baso # (Auto) 0.0 K/mm3 (0.0-0.1) 07/26/20 07:00 Add Manual Diff Complete 07/22/20 10:30 Total Counted 100 07/22/20 10:30 Seg Neutrophils % 79.8 % (40.0-70.0) H 07/26/20 07:00 Seg Neuts % (Manual) 92.0 % (40.0-70.0) H 07/22/20 10:30 Lymphocytes % (Manual) 6.0 % (13.4-35.0) L 07/22/20 10:30 Monocytes % (Manual) 2.0 % (0.0-7.3) 07/22/20 10:30 Nucleated RBC % 13.0 % (0.0-0.9) H 07/22/20 10:30 Seg Neutrophils # 7.6 K/mm3 (1.8-7.7) 07/26/20 07:00 Seg Neutrophils # Man 3.5 K/mm3 (1.8-7.7) 07/22/20 10:30 Band Neutrophils # 0.0 K/mm3 07/22/20 10:30 Lymphocytes # (Manual) 0.2 K/mm3 (1.2-5.4) L 07/22/20 10:30 Abs React Lymphs (Man) 0.0 K/mm3 07/22/20 10:30 Monocytes # (Manual) 0.1 K/mm3 (0.0-0.8) 07/22/20 10:30 Eosinophils # (Manual) 0.0 K/mm3 (0.0-0.4) 07/22/20 10:30 Basophils # (Manual) 0.0 K/mm3 (0.0-0.1) 07/22/20 10:30 Metamyelocytes # 0.0 K/mm3 07/22/20 10:30 Myelocytes # 0.0 K/mm3 07/22/20 10:30 Promyelocytes # 0.0 K/mm3 07/22/20 10:30 Blast Cells # 0.0 K/mm3 07/22/20 10:30 WBC Morphology Not Reportable 07/22/20 10:30 Hypersegmented Neuts Not Reportable 07/22/20 10:30 Hyposegmented Neuts Not Reportable 07/22/20 10:30 Hypogranular Neuts Not Reportable 07/22/20 10:30 Smudge Cells Not Reportable 07/22/20 10:30 Toxic Granulation Not Reportable 07/22/20 10:30 Toxic Vacuolation Not Reportable 07/22/20 10:30 Dohle Bodies Not Reportable 07/22/20 10:30 Pelger-Huet Anomaly Not Reportable 07/22/20 10:30 Clint Rods Not Reportable 07/22/20 10:30 Platelet Estimate Consistent w auto 07/22/20 10:30 Clumped Platelets Not Reportable 07/22/20 10:30 Plt Clumps, EDTA Not Reportable 07/22/20 10:30 Large Platelets Not Reportable 07/22/20 10:30 Giant Platelets Not Reportable 07/22/20 10:30 Platelet Satelliting Not Reportable 07/22/20 10:30 Plt Morphology Comment Not Reportable 07/22/20 10:30 RBC Morphology Not Reportable 07/22/20 10:30 Dimorphic RBCs Not Reportable 07/22/20 10:30 Polychromasia Not Reportable 07/22/20 10:30 Hypochromasia Not Reportable 07/22/20 10:30 Poikilocytosis Not Reportable 07/22/20 10:30 Anisocytosis Not Reportable 07/22/20 10:30 Microcytosis Rare 07/22/20 10:30 Macrocytosis Not Reportable 07/22/20 10:30 Spherocytes Not Reportable 07/22/20 10:30 Pappenheimer Bodies Not Reportable 07/22/20 10:30 Sickle Cells Not Reportable 07/22/20 10:30 Target Cells Not Reportable 07/22/20 10:30 Tear Drop Cells Not Reportable 07/22/20 10:30 Ovalocytes Not Reportable 07/22/20 10:30 Helmet Cells Not Reportable 07/22/20 10:30 [place] Bodies Not Reportable 07/22/20 10:30 [place] Rings Not Reportable 07/22/20 10:30 [place] Cells Not Reportable 07/22/20 10:30 Bite Cells Not Reportable 07/22/20 10:30 Crenated Cell Not Reportable 07/22/20 10:30 Elliptocytes Not Reportable 07/22/20 10:30 Acanthocytes (Spur) Not Reportable 07/22/20 10:30 Rouleaux Not Reportable 07/22/20 10:30 Hemoglobin C Crystals Not Reportable 07/22/20 10:30 Schistocytes Not Reportable 07/22/20 10:30 Malaria parasites Not Reportable 07/22/20 10:30 Carl Bodies Not Reportable 07/22/20 10:30 Hem Pathologist Commnt No 07/22/20 10:30 PT 15.9 Sec. (12.2-14.9) H 07/22/20 10:30 INR 1.27 (0.87-1.13) H 07/22/20 10:30 APTT 38.3 Sec. (24.2-36.6) H 07/22/20 10:30 D-Dimer 1036.46 ng/mlDDU (0-234) H 07/18/20 08:56 Heparin Anti-Xa, Unfract Negative (Negative) 07/23/20 08:54 ABG pH 7.512 pH Units (7.350-7.450) H 07/26/20 03:54 POC ABG pCO2 32.7 mmHg (32.0-48.0) 07/25/20 03:57 ABG pCO2 34.6 mm Hg 07/26/20 03:54 POC ABG pO2 62.7 mmHg (83-108) L 07/25/20 03:57 ABG pO2 121.2 mm Hg (80.0-90.0) H 07/26/20 03:54 POC ABG HCO3 24.8 07/25/20 03:57 ABG HCO3 27.1 mmol/L (20.0-26.0) H 07/26/20 03:54 ABG O2 Saturation 98.6 % (95.0-99.0) 07/26/20 03:54 ABG O2 Content 5.7 (0.0-44) 07/26/20 03:54 POC ABG Base Excess 1.7 07/25/20 03:57 ABG Base Excess 3.6 mmol/L (-2.0-3.0) H 07/26/20 03:54 ABG Hemoglobin < 5.1 gm/dl (14.0-18.0) L 07/26/20 03:54 ABG Oxyhemoglobin 90.1 (94-98) L 07/25/20 03:57 ABG Carboxyhemoglobin 2.0 % (0.0-5.0) 07/26/20 03:54 ABG Methemoglobin 0.4 % (0.0-1.5) 07/26/20 03:54 ABG Sodium 138.7 mmol/L (136.0-145.0) 07/25/20 03:57 ABG Potassium 4.0 mmol/L (3.40-4.50) 07/25/20 03:57 ABG Chloride 110.0 mmol/L (98-107) H 07/25/20 03:57 ABG Glucose 157 mg/dL (65-95) H 07/25/20 03:57 Oxyhemoglobin 96.1 % (95.0-99.0) 07/26/20 03:54 Carboxyhemoglobin 1.1 (0.5-1.5) 07/25/20 03:57 FiO2 40 % 07/26/20 03:54 FiO2 % 40 07/25/20 03:57 Sodium 141 mmol/L (137-145) 07/25/20 04:00 Potassium 4.1 mmol/L (3.6-5.0) 07/25/20 04:00 Chloride 105.5 mmol/L (98-107) 07/25/20 04:00 Carbon Dioxide 26 mmol/L (22-30) 07/25/20 04:00 Anion Gap 14 mmol/L 07/25/20 04:00 BUN 38 mg/dL (9-20) H 07/25/20 04:00 Creatinine 4.1 mg/dL (0.8-1.3) H 07/25/20 04:00 Estimated GFR 18 ml/min 07/25/20 04:00 BUN/Creatinine Ratio 9 % 07/25/20 04:00 Glucose 160 mg/dL (75-100) H 07/25/20 04:00 POC Glucose 198 mg/dL (70-105) H 07/26/20 00:18 Lactic Acid 0.80 mmol/L (0.7-2.0) 07/18/20 08:56 Calcium 7.9 mg/dL (8.4-10.2) L 07/25/20 04:00 Phosphorus 5.80 mg/dL (2.5-4.5) H 07/22/20 10:30 Magnesium 2.10 mg/dL (1.7-2.3) 07/22/20 10:30 Ferritin 198.6 ng/mL (30.0-300.0) 07/18/20 10:36 Total Bilirubin 0.30 mg/dL (0.1-1.2) 07/22/20 10:30 Direct Bilirubin 0.2 mg/dL (0-0.2) 07/19/20 06:00 Indirect Bilirubin 0.2 mg/dL 07/19/20 06:00 AST 66 units/L (5-40) H 07/22/20 10:30 ALT < 5 units/L (7-56) L 07/22/20 10:30 Alkaline Phosphatase 604 units/L (35-129) H 07/22/20 10:30 Ammonia 41.0 umol/L (25-60) 07/18/20 08:56 Lactate Dehydrogenase 212 units/L (91-180) H 07/18/20 10:36 Total Creatine Kinase 67 units/L (55-170) 07/22/20 10:30 CK-MB (CK-2) 10.9 ng/mL (0.0-4.0) H 07/22/20 10:30 CK-MB (CK-2) Rel Index 16.2 (0-4) H 07/22/20 10:30 Troponin T 0.047 ng/mL (0.00-0.029) H 07/22/20 10:30 C-Reactive Protein 2.10 mg/dL (0.00-1.30) H 07/18/20 10:36 NT-Pro-B Natriuret Pep 4777 pg/mL (0-900) H 07/18/20 08:56 Total Protein 6.4 g/dL (6.3-8.2) 07/22/20 10:30 Albumin 2.1 g/dL (3.9-5) L 07/22/20 10:30 Albumin/Globulin Ratio 0.5 % 07/22/20 10:30 Triglycerides 65 mg/dL (2-149) 07/18/20 08:56 Cholesterol 157 mg/dL (50-199) 07/18/20 08:56 LDL Cholesterol Direct 95 mg/dL (50-130) 07/18/20 08:56 HDL Cholesterol 67 mg/dL (40-59) H 07/18/20 08:56 Cholesterol/HDL Ratio 2.34 % 07/18/20 08:56 Procalcitonin 0.10 ng/mL (<0.15) 07/18/20 10:36 TSH 5.520 mlU/mL (0.270-4.200) H 07/18/20 08:56 Free T4 0.84 ng/dL (0.76-1.46) 07/18/20 08:56 Arterial Blood Glucose 157 mg/dL (65-95) H 07/25/20 03:57 Arterial Blood Ionized Calcium 4.3 mg/dL (4.6-5.3) L 07/25/20 03:57 Random Vancomycin 18.6 ug/mL (0-40.0) 07/25/20 05:00 Heparin-induced Plt Ab Negative (Negative) 07/23/20 08:54 UF Heparin High Dose 0 % Release 07/23/20 08:54 MAGEN UFH Low Dose 0.1 0 % Release 07/23/20 08:54 MAGEN UFH Low Dose 0.5 0 % Release 07/23/20 08:54 Coronavirus (PCR) Negative (Negative) 07/18/20 12:07 Hepatitis A IgM Ab Non-reactive (NonReactive) 07/23/20 19:20 Hep Bs Antigen Non-reactive (Negative) 07/23/20 19:20 Hep B Core IgM Ab Non-reactive (NonReactive) 07/23/20 19:20 Hepatitis C Antibody Reactive (NonReactive) A 07/23/20 19:20 Blood Type A POSITIVE 07/18/20 08:56 Antibody Screen Negative 07/18/20 08:56 Microbiology: Microbiology 07/22/20 10:28 Tracheal Aspirate Sputum Culture - Final Ayala/IV: Voiding Method Indwelling Catheter Active Medications - Current Medications Current Medications: Generic Name Dose Route Start Last Admin Trade Name Freq PRN Reason Stop Dose Admin Lipase/Protease/Amylase 1 each 07/23/20 14:17 Lipase 10,500/Protease 25,000/Amylase 43,750 (Units) Dr Cap FEEDTUBE PRN PRN For Clogged Feeding Tube Aspirin 81 mg 07/19/20 10:00 07/25/20 11:31 Aspirin Ec 81 Mg Tab PO 81 mg QDAY JODIE Administration Atropine Sulfate 1 mg 07/23/20 09:03 07/23/20 22:15 Atropine 0.1% (1 Mg/10 Ml) Cardiac Syringe IV 1 mg PRN PRN Administration Bradycardia Dextrose 50 ml 07/23/20 03:28 07/23/20 06:00 Dextrose 50% In Water (25gm) 50 Ml Syringe IV 50 ml Q30MIN PRN Administration Hypoglycemia Protocol Famotidine 20 mg 07/18/20 22:00 07/25/20 11:31 Famotidine 20 Mg Tab PO 20 mg DAILY JODIE Administration Fluoxetine HCl 20 mg 07/19/20 10:00 07/25/20 11:31 Fluoxetine 20 Mg Cap PO 20 mg QDAY JODIE Administration Folic Acid 1 mg 07/19/20 10:00 07/25/20 11:32 Folic Acid 1 Mg Tab PO 1 mg DAILY JODIE Administration Hydralazine HCl 50 mg 07/18/20 14:00 07/26/20 06:44 Hydralazine 25 Mg Tab PO 50 mg Q8HR JODIE Administration Hydralazine HCl 20 mg 07/22/20 14:02 Hydralazine 20 Mg/1 Ml Inj IV Q4HR PRN Blood Pressure Hydrophilic Ointment 1 applic 07/22/20 10:02 Lip Therapy Vaseline TP Q2HR PRN Dry Lips Sodium Chloride 100 mls @ 999 mls/hr 07/23/20 11:13 Nacl 0.9% IV FRANCISCO PRN Hypotension Norepinephrine 4 mg in 250 mls @ 7.5 mls/hr 07/24/20 10:00 07/24/20 15:35 Levophed Drip 4 Mg/Ns 250 Ml IV 0 mcg/min TITR JODIE 0 mls/hr Titration Protocol 2 MCG/MIN Levetiracetam 750 mg 07/18/20 22:00 07/25/20 21:50 Levetiracetam 500 Mg/5 Ml Oral Liqd PO 750 mg BID JODIE Administration Multi-Ingred Cream/Lotion/Oil/Oint 1 applic 07/22/20 10:02 Mineral Oil/Petrolatum, White Ophth Oint 3.5 Gm OU Q4HR PRN Dry Eye(s) Simple Syrup 15 ml 07/23/20 14:17 Simple Syrup 15 Ml FEEDTUBE PRN PRN Hypoglycemia Simple Syrup 30 ml 07/23/20 14:17 Simple Syrup 15 Ml FEEDTUBE PRN PRN Hypoglycemia Sodium Bicarbonate 325 mg 07/23/20 14:17 Sodium Bicarbonate 325 Mg Tab FEEDTUBE PRN PRN For Clogged Feeding Tube Thiamine HCl 100 mg 07/19/20 10:00 07/25/20 11:32 Thiamine 100 Mg Tab PO 100 mg QDAY JODIE Administration Trazodone HCl 50 mg 07/18/20 22:00 07/25/20 21:50 Trazodone 50 Mg Tab PO 50 mg QHS JODIE Administration Nutrition/Malnutrition Assess - Dietary Evaluation Nutrition/Malnutrition Findings: Nutrition Notes Start: 07/19/20 09:53 Freq: Status: Active Protocol: Document 07/25/20 10:41 AL (Rec: 07/25/20 10:47 AL [id number]) Co-Sign 07/25/20 10:41 LP Nutrition Notes Initial or Follow up Reassessment Current Diagnosis CKD(stage I-IV),Diabetes, Sepsis,Heart Failure, Respiratory Failure,Stroke Other Pertinent Diagnosis Acute toxic metabolic encephalopathy, Bradycardia, ( R) LE wound, on HD Current Diet Nepro 1.8 at 42 ml/hr Labs/Tests BUN 38 Cr 4.1 POC BG 160 Pertinent Medications Reviewed Height 5 ft 9 in Weight 114.76 kg [place] Body Weight (kg) 72.72 BMI 37.3 Weight Status Obese Subjective/Other Information F/U for TF tolerance and vent satus. Pt is tolerating Nepro at 42 ml/hr (goal rate) and is still intubated. Percent of energy/protein needs met: 99%/57% Burn Absent Trauma Absent Difficulty In Swallowing Skin Integrity/Comment Diabetic ulcers to BLE Current % PO Negligible Minimum of two criteria No Fluid Accumulation Moderate to Severe (severe) #1 Nutrition Diagnosis Inadequate oral intake Diagnosis Progress(for reassessment Continues documentation) Is patient on ventilator? Yes Is Patient Ambulatory and/or Out of Bed No REE-([place]-St. Jeor-confined to bed) 2330.148 Kcal/Kg value to use for calculation 16 Approximate Energy Requirements Using 1836 kcal/Kg Calculation Used for Recommendations Kcal/kg Additional Notes Protein needs: >144g (>2.0 g/ kgIBW) Fluid needs 1000 - 1500 ml/day Nutrition Intervention Change Diet Order: TF Nutrition Support: Nepro at 42 ml/h with a free water flush of 125 ml q4h. Kcal 1,814 Protein (gm) 82 Fluid (mL) 733 Goal #1 TF tolerane Goal #2 Meet at estimated energy and protein needs as best as possible. Anticipated Discharge Needs: Unable to determine at this time Follow-Up By: 08/01/20 Additional Comments F/U for stable TF tolerance
[2020-07-26] MEDS: FAMOTIDINE 20 MG TAB PO SCH (10:04)
[2020-07-26] MEDS: ASPIRIN EC 81 MG TAB PO SCH (10:04)
[2020-07-26] MEDS: levETIRAcetam 500 MG/5 ML ORAL LIQD PO SCH ×2 (10:04→21:48)
[2020-07-26] MEDS: THIAMINE 100 MG TAB PO SCH (10:05)
[2020-07-26] MEDS: FOLIC ACID 1 MG TAB PO SCH (10:05)
[2020-07-26] MEDS: FLUoxetine 20 MG CAP PO SCH (10:05)
[2020-07-26] MEDS: INSULIN LISPRO 100 UNIT/ML SUB-Q SCH ×3 (10:07→17:59)
--- NOTE | 2020-07-26 11:06 | Progress Note ---
Assessment and Plan Cont present cardiac managemnt. Consider addition of BB in setting of CMP if HR and BPs permit. No ACEI/ARB at this time in setting of renal insufficiency requiring HD. Can consider ischemic evaluation for further investigation of CMP etiology once medically stabilized. Cont volume and electrolyte management per nephrology/HD. Persistent anemia and thrombocytopenia noted - further eval/management per primary and critical care teams. The patient has been seen in conjunction with Dr. Martino who agrees with the assessment and plan of care. - Patient Problems (1) Acute on chronic renal failure Current Visit: Yes Status: Acute Qualifiers: Acute renal failure type: unspecified Chronic kidney disease stage: stage 3 (moderate) Chronic kidney disease stage 3 subtype: stage 3a (GFR 45-59) Qualified Code(s): N17.9 - Acute kidney failure, unspecified; N18.31 - Chronic kidney disease, stage 3a (2) Anasarca Current Visit: Yes Status: Acute (3) Acute respiratory failure Current Visit: Yes Status: Acute (4) Altered mental status Current Visit: Yes Status: Acute (5) Hyperkalemia Current Visit: Yes Status: Acute (6) Sepsis Current Visit: Yes Status: Suspected Qualifiers: Sepsis type: sepsis due to unspecified organism Sepsis acute organ dysfunction status: with acute organ dysfunction Severe sepsis acute organ dysfunction type: acute renal failure Acute renal failure type: unspecified Severe sepsis shock status: without septic shock Qualified Code(s): A41.9 - Sepsis, unspecified organism; R65.20 - Severe sepsis without septic shock; N17.9 - Acute kidney failure, unspecified (7) Sinus bradycardia Current Visit: Yes Status: Acute (8) Hypotension Current Visit: Yes Status: Acute (9) Acute HFrEF (heart failure with reduced ejection fraction) Current Visit: Yes Status: Acute (10) Cardiomyopathy Current Visit: Yes Status: Chronic Qualifiers: Cardiomyopathy type: unspecified Qualified Code(s): I42.9 - Cardiomyopathy, unspecified (11) History of ETOH abuse Current Visit: Yes Status: Chronic (12) History of cocaine use Current Visit: Yes Status: Chronic (13) Cellulitis of right lower extremity Current Visit: Yes Status: Acute (14) Diabetes Current Visit: Yes Status: Chronic (15) History of CVA (cerebrovascular accident) Current Visit: Yes Status: Acute (16) Anemia Current Visit: Yes Status: Chronic Qualifiers: Anemia type: unspecified type Qualified Code(s): D64.9 - Anemia, unspecified (17) Thrombocytopenia Current Visit: Yes Status: Acute (18) Hepatitis C Current Visit: Yes Status: Chronic (19) Elevated troponin Current Visit: Yes Status: Acute Subjective Date of service: 07/26/20 Principal diagnosis: RACQUEL Interval history: pt remains intubated, unresponsive. currently weaned off vasopressors. tele reviewed - in SR with HR 70s, no events noted overnight. Objective Last Vital Signs Temp 97.4 F L 07/26/20 08:00 Pulse 71 07/26/20 08:30 Resp 19 07/26/20 08:30 BP 120/62 07/26/20 08:30 Pulse Ox 96 07/26/20 08:30 - Physical Examination General: Other (Intubated, unresponsive) HEENT: Positive: Other (Intubated, Sedated) Neck: Positive: neck supple Cardiac: Positive: Reg Rate and Rhythm, S1/S2 Lungs: Positive: Decreased Breath Sounds, Oxygen, Ventilated Respirations Neuro: Positive: Other (Intubated, unresponsive) Abdomen: Positive: Unremarkable Skin: Negative: Rash Extremities: Present: upper extr. pulses, lower extr. pulses. Absent: edema - Labs and Meds CBC 07/26/20 Range/Units 07:00 WBC 9.5 (4.5-11.0) K/mm3 RBC 2.33 L (3.65-5.03) M/mm3 Hgb 7.4 L (11.8-15.2) gm/dl Hct 21.6 L (35.5-45.6) % Plt Count 50 L (140-440) K/mm3 Lymph # (Auto) 1.2 (1.2-5.4) K/mm3 [place] # (Auto) 0.7 (0.0-0.8) K/mm3 Eos # (Auto) 0.0 (0.0-0.4) K/mm3 Baso # (Auto) 0.0 (0.0-0.1) K/mm3 - Imaging and Cardiology EKG: report reviewed, image reviewed Echo: report reviewed ((06/22/20) EF 35-40%. Mild LVH. LVSF med decreased. RVSF mildly reduced. Mild Pulm HTN. Left Atrium Mildly DIlated. Right Atrium Moderately dilated. Mild MR. Moderate TR. ) - Telemetry EKG Rhythm: Sinus Rhythm - EKG Sinus rhythms and dysrhythmias: sinus rhythm - Allied health notes Allied health notes reviewed: nursing
--- NOTE | 2020-07-26 11:54 | Progress Note ---
Assessment and Plan 8 y/o male with acute respiratory failure secondary to worsening renal failure, volume overload and altered mental state 07/26/20: Drop PEEP down to 6. Once more awake PSV trials. HD per renal. Appears to be helping, maybe they will dialyze again today. Prognosis still remains guarded. 1. Needs HD 2. Wean FiO2 and PEEP as tolerated 3. Guarded prognosis CCT 31 minutes. Subjective Date of service: 07/26/20 Principal diagnosis: RACQUEL Interval history: Still unresponsive. Off pressors. But per nurse will move/respond to painful stimuli. HD per renal and had it done on yesterday. Remainder is negative. Objective Vital Signs - 12hr 07/26/20 07/26/20 07/26/20 00:00 00:03 00:28 Temperature Pulse Rate 69 69 69 Pulse Rate [ 69 From Monitor] Respiratory 15 19 Rate Respiratory Rate [Bilateral Leg] Blood Pressure 125/68 125/68 127/67 O2 Sat by Pulse 95 100 100 Oximetry 07/26/20 07/26/20 07/26/20 00:30 01:00 01:30 Temperature Pulse Rate 70 68 71 Pulse Rate [ From Monitor] Respiratory 15 22 17 Rate Respiratory Rate [Bilateral Leg] Blood Pressure 126/68 119/63 120/67 O2 Sat by Pulse 97 99 99 Oximetry 07/26/20 07/26/20 07/26/20 02:00 02:30 03:00 Temperature Pulse Rate 72 72 73 Pulse Rate [ From Monitor] Respiratory 21 19 18 Rate Respiratory Rate [Bilateral Leg] Blood Pressure 120/62 110/55 117/59 O2 Sat by Pulse 98 99 100 Oximetry 07/26/20 07/26/20 07/26/20 03:30 04:00 04:01 Temperature 98.3 F Pulse Rate 76 74 74 Pulse Rate [ 72 From Monitor] Respiratory 12 18 7 L Rate Respiratory Rate [Bilateral Leg] Blood Pressure 127/63 118/61 O2 Sat by Pulse 97 100 100 Oximetry 07/26/20 07/26/20 07/26/20 04:31 04:34 05:00 Temperature Pulse Rate 75 73 72 Pulse Rate [ From Monitor] Respiratory 16 18 Rate Respiratory Rate [Bilateral Leg] Blood Pressure 118/61 108/55 O2 Sat by Pulse 100 99 96 Oximetry 07/26/20 07/26/20 07/26/20 05:30 06:00 06:31 Temperature Pulse Rate 71 71 71 Pulse Rate [ From Monitor] Respiratory 19 18 15 Rate Respiratory Rate [Bilateral Leg] Blood Pressure 107/57 125/65 135/67 O2 Sat by Pulse 99 95 98 Oximetry 07/26/20 07/26/20 07/26/20 06:44 07:00 07:30 Temperature Pulse Rate 68 68 67 Pulse Rate [ From Monitor] Respiratory 17 16 Rate Respiratory Rate [Bilateral Leg] Blood Pressure 135/67 116/65 113/62 O2 Sat by Pulse 97 97 Oximetry 07/26/20 07/26/20 07/26/20 07:51 08:00 08:30 Temperature 97.4 F L Pulse Rate 70 69 71 Pulse Rate [ From Monitor] Respiratory 17 19 Rate Respiratory Rate [Bilateral Leg] Blood Pressure 127/70 113/58 120/62 O2 Sat by Pulse 99 96 96 Oximetry 07/26/20 07/26/20 07/26/20 09:00 09:30 10:00 Temperature Pulse Rate 70 71 67 Pulse Rate [ From Monitor] Respiratory 9 L 11 L 20 Rate Respiratory 16 Rate [Bilateral Leg] Blood Pressure 129/67 136/74 129/69 O2 Sat by Pulse 97 98 Oximetry 07/26/20 07/26/20 07/26/20 10:30 11:00 11:21 Temperature Pulse Rate 66 67 66 Pulse Rate [ From Monitor] Respiratory 17 18 Rate Respiratory Rate [Bilateral Leg] Blood Pressure 106/55 110/58 107/59 O2 Sat by Pulse 97 97 99 Oximetry Constitutional: appears uncomfortable ENT: epistaxis Neck: other (large in circumference) Effort: mildly labored Ascultation: Bilateral: diminished breath sounds Neurologic: non-focal exam, unable to assess CBC and BMP: 07/26/20 07:00 07/25/20 04:00 ABG, PT/INR, D-dimer: ABG ABG pH 7.512 pH Units (7.350-7.450) H 07/26/20 03:54 POC ABG pCO2 32.7 mmHg (32.0-48.0) 07/25/20 03:57 ABG pCO2 34.6 mm Hg 07/26/20 03:54 POC ABG pO2 62.7 mmHg (83-108) L 07/25/20 03:57 ABG pO2 121.2 mm Hg (80.0-90.0) H 07/26/20 03:54 POC ABG HCO3 24.8 07/25/20 03:57 ABG O2 Saturation 98.6 % (95.0-99.0) 07/26/20 03:54 PT/INR, D-dimer PT 15.9 Sec. (12.2-14.9) H 07/22/20 10:30 INR 1.27 (0.87-1.13) H 07/22/20 10:30 D-Dimer 1036.46 ng/mlDDU (0-234) H 07/18/20 08:56 Abnormal lab findings: Abnormal Labs 07/18/20 07/18/20 07/18/20 08:56 08:56 08:56 WBC 3.5 L RBC 2.51 L Hgb 8.0 L Hct 24.5 L MCV 98 H RDW 18.3 H Plt Count 58 L Lymph % (Auto) [facility] % (Auto) 11.1 H Lymph # (Auto) Seg Neutrophils % Seg Neuts % (Manual) Lymphocytes % (Manual) Nucleated RBC % Lymphocytes # (Manual) PT INR 1.18 H APTT D-Dimer ABG pH POC ABG pCO2 POC ABG pO2 ABG pO2 ABG HCO3 ABG Base Excess ABG Hemoglobin ABG Oxyhemoglobin ABG Potassium ABG Chloride ABG Glucose Carboxyhemoglobin Sodium 146 H Potassium 5.2 H Chloride 117.3 H Carbon Dioxide 21 L BUN 52 H Creatinine 3.1 H Glucose 118 H POC Glucose Calcium 8.1 L Phosphorus AST ALT Alkaline Phosphatase Lactate Dehydrogenase CK-MB (CK-2) CK-MB (CK-2) Rel Index Troponin T 0.057 H C-Reactive Protein NT-Pro-B Natriuret Pep Albumin HDL Cholesterol 67 H TSH Arterial Blood Glucose Arterial Blood Ionized Calcium Hepatitis C Antibody 07/18/20 07/18/20 07/18/20 08:56 08:56 08:56 WBC RBC Hgb Hct MCV RDW Plt Count Lymph % (Auto) [facility] % (Auto) Lymph # (Auto) Seg Neutrophils % Seg Neuts % (Manual) Lymphocytes % (Manual) Nucleated RBC % Lymphocytes # (Manual) PT INR APTT D-Dimer 1036.46 H ABG pH POC ABG pCO2 POC ABG pO2 ABG pO2 ABG HCO3 ABG Base Excess ABG Hemoglobin ABG Oxyhemoglobin ABG Potassium ABG Chloride ABG Glucose Carboxyhemoglobin Sodium Potassium Chloride Carbon Dioxide BUN Creatinine Glucose POC Glucose Calcium Phosphorus AST ALT Alkaline Phosphatase Lactate Dehydrogenase CK-MB (CK-2) CK-MB (CK-2) Rel Index Troponin T C-Reactive Protein NT-Pro-B Natriuret Pep 4777 H Albumin HDL Cholesterol TSH 5.520 H Arterial Blood Glucose Arterial Blood Ionized Calcium Hepatitis C Antibody 07/18/20 07/18/20 07/18/20 10:36 18:56 19:00 WBC RBC Hgb Hct MCV RDW Plt Count Lymph % (Auto) [facility] % (Auto) Lymph # (Auto) Seg Neutrophils % Seg Neuts % (Manual) Lymphocytes % (Manual) Nucleated RBC % Lymphocytes # (Manual) PT INR APTT D-Dimer ABG pH POC ABG pCO2 POC ABG pO2 ABG pO2 ABG HCO3 ABG Base Excess ABG Hemoglobin ABG Oxyhemoglobin ABG Potassium ABG Chloride ABG Glucose Carboxyhemoglobin Sodium Potassium Chloride Carbon Dioxide BUN Creatinine Glucose 101 H POC Glucose 66 L 63 L Calcium Phosphorus AST ALT Alkaline Phosphatase Lactate Dehydrogenase 212 H CK-MB (CK-2) CK-MB (CK-2) Rel Index Troponin T C-Reactive Protein 2.10 H NT-Pro-B Natriuret Pep Albumin HDL Cholesterol TSH Arterial Blood Glucose Arterial Blood Ionized Calcium Hepatitis C Antibody 07/19/20 07/19/20 07/19/20 06:00 06:00 16:26 WBC 3.9 L RBC 2.34 L Hgb 7.5 L Hct 23.1 L MCV 99 H RDW 18.6 H Plt Count 52 L Lymph % (Auto) [facility] % (Auto) 9.4 H Lymph # (Auto) 1.0 L Seg Neutrophils % Seg Neuts % (Manual) Lymphocytes % (Manual) Nucleated RBC % Lymphocytes # (Manual) PT INR APTT D-Dimer ABG pH POC ABG pCO2 POC ABG pO2 ABG pO2 ABG HCO3 ABG Base Excess ABG Hemoglobin ABG Oxyhemoglobin ABG Potassium ABG Chloride ABG Glucose Carboxyhemoglobin Sodium Potassium 5.3 H Chloride 115.8 H Carbon Dioxide BUN 52 H Creatinine 3.4 H Glucose 114 H POC Glucose 123 H Calcium 7.7 L Phosphorus AST 77 H ALT < 5 L Alkaline Phosphatase 678 H Lactate Dehydrogenase CK-MB (CK-2) CK-MB (CK-2) Rel Index Troponin T C-Reactive Protein NT-Pro-B Natriuret Pep Albumin 2.2 L HDL Cholesterol TSH Arterial Blood Glucose Arterial Blood Ionized Calcium Hepatitis C Antibody 07/19/20 07/20/20 07/20/20 21:20 08:25 08:25 WBC 3.6 L RBC 2.54 L Hgb 8.0 L Hct 24.6 L MCV 97 H RDW 18.0 H Plt Count 47 L Lymph % (Auto) [facility] % (Auto) 9.8 H Lymph # (Auto) 0.9 L Seg Neutrophils % Seg Neuts % (Manual) Lymphocytes % (Manual) Nucleated RBC % Lymphocytes # (Manual) PT INR APTT D-Dimer ABG pH POC ABG pCO2 POC ABG pO2 ABG pO2 ABG HCO3 ABG Base Excess ABG Hemoglobin ABG Oxyhemoglobin ABG Potassium ABG Chloride ABG Glucose Carboxyhemoglobin Sodium Potassium 5.4 H Chloride 115.8 H Carbon Dioxide BUN 56 H Creatinine 3.8 H Glucose 110 H POC Glucose 142 H Calcium 7.9 L Phosphorus AST ALT Alkaline Phosphatase Lactate Dehydrogenase CK-MB (CK-2) CK-MB (CK-2) Rel Index Troponin T C-Reactive Protein NT-Pro-B Natriuret Pep Albumin HDL Cholesterol TSH Arterial Blood Glucose Arterial Blood Ionized Calcium Hepatitis C Antibody 07/20/20 07/20/20 07/20/20 11:27 16:34 21:27 WBC RBC Hgb Hct MCV RDW Plt Count Lymph % (Auto) [facility] % (Auto) Lymph # (Auto) Seg Neutrophils % Seg Neuts % (Manual) Lymphocytes % (Manual) Nucleated RBC % Lymphocytes # (Manual) PT INR APTT D-Dimer ABG pH POC ABG pCO2 POC ABG pO2 ABG pO2 ABG HCO3 ABG Base Excess ABG Hemoglobin ABG Oxyhemoglobin ABG Potassium ABG Chloride ABG Glucose Carboxyhemoglobin Sodium Potassium Chloride Carbon Dioxide BUN Creatinine Glucose POC Glucose 136 H 186 H 175 H Calcium Phosphorus AST ALT Alkaline Phosphatase Lactate Dehydrogenase CK-MB (CK-2) CK-MB (CK-2) Rel Index Troponin T C-Reactive Protein NT-Pro-B Natriuret Pep Albumin HDL Cholesterol TSH Arterial Blood Glucose Arterial Blood Ionized Calcium Hepatitis C Antibody 07/21/20 07/22/20 07/22/20 10:31 07:25 10:30 WBC 3.8 L RBC 2.53 L Hgb 7.9 L Hct 24.7 L MCV 98 H RDW 18.7 H Plt Count 35 L Lymph % (Auto) [facility] % (Auto) Lymph # (Auto) Seg Neutrophils % Seg Neuts % (Manual) 92.0 H Lymphocytes % (Manual) 6.0 L Nucleated RBC % 13.0 H Lymphocytes # (Manual) 0.2 L PT INR APTT D-Dimer ABG pH POC ABG pCO2 POC ABG pO2 ABG pO2 ABG HCO3 ABG Base Excess ABG Hemoglobin ABG Oxyhemoglobin ABG Potassium ABG Chloride ABG Glucose Carboxyhemoglobin Sodium Potassium 5.3 H 5.6 H Chloride 115.0 H 115.1 H Carbon Dioxide 18 L BUN 59 H 61 H Creatinine 4.3 H 4.6 H Glucose 109 H POC Glucose Calcium 7.6 L 7.6 L Phosphorus AST ALT Alkaline Phosphatase Lactate Dehydrogenase CK-MB (CK-2) CK-MB (CK-2) Rel Index Troponin T C-Reactive Protein NT-Pro-B Natriuret Pep Albumin HDL Cholesterol TSH Arterial Blood Glucose Arterial Blood Ionized Calcium Hepatitis C Antibody 07/22/20 07/22/20 07/22/20 10:30 10:30 10:30 WBC RBC Hgb Hct MCV RDW Plt Count Lymph % (Auto) [facility] % (Auto) Lymph # (Auto) Seg Neutrophils % Seg Neuts % (Manual) Lymphocytes % (Manual) Nucleated RBC % Lymphocytes # (Manual) PT 15.9 H INR 1.27 H APTT 38.3 H D-Dimer ABG pH POC ABG pCO2 POC ABG pO2 ABG pO2 ABG HCO3 ABG Base Excess ABG Hemoglobin ABG Oxyhemoglobin ABG Potassium ABG Chloride ABG Glucose Carboxyhemoglobin Sodium 146 H Potassium 5.4 H Chloride 116.4 H Carbon Dioxide BUN 61 H Creatinine 4.6 H Glucose 115 H POC Glucose Calcium 7.5 L Phosphorus 5.80 H AST 66 H ALT < 5 L Alkaline Phosphatase 604 H Lactate Dehydrogenase CK-MB (CK-2) 10.9 H CK-MB (CK-2) Rel Index 16.2 H Troponin T 0.047 H C-Reactive Protein NT-Pro-B Natriuret Pep Albumin 2.1 L HDL Cholesterol TSH Arterial Blood Glucose Arterial Blood Ionized Calcium Hepatitis C Antibody 07/22/20 07/23/20 07/23/20 11:10 03:38 03:47 WBC RBC Hgb Hct MCV RDW Plt Count Lymph % (Auto) [facility] % (Auto) Lymph # (Auto) Seg Neutrophils % Seg Neuts % (Manual) Lymphocytes % (Manual) Nucleated RBC % Lymphocytes # (Manual) PT INR APTT D-Dimer ABG pH 7.203 L POC ABG pCO2 48.7 H 29.7 L POC ABG pO2 80.6 L 267.3 H ABG pO2 ABG HCO3 ABG Base Excess ABG Hemoglobin 8.6 L 8.2 L ABG Oxyhemoglobin 91.1 L 98.2 H ABG Potassium 5.4 H 5.4 H ABG Chloride 122.0 H 122.0 H ABG Glucose 105 H 101 H Carboxyhemoglobin 2.0 H Sodium Potassium Chloride Carbon Dioxide BUN Creatinine Glucose POC Glucose 65 L Calcium Phosphorus AST ALT Alkaline Phosphatase Lactate Dehydrogenase CK-MB (CK-2) CK-MB (CK-2) Rel Index Troponin T C-Reactive Protein NT-Pro-B Natriuret Pep Albumin HDL Cholesterol TSH Arterial Blood Glucose 105 H 101 H Arterial Blood Ionized Calcium 4.5 L 4.4 L Hepatitis C Antibody 07/23/20 07/23/20 07/23/20 06:05 06:05 06:27 WBC RBC 2.36 L Hgb 7.5 L Hct 22.7 L MCV 96 H RDW 18.9 H Plt Count 42 L Lymph % (Auto) [facility] % (Auto) Lymph # (Auto) Seg Neutrophils % Seg Neuts % (Manual) Lymphocytes % (Manual) Nucleated RBC % Lymphocytes # (Manual) PT INR APTT D-Dimer ABG pH POC ABG pCO2 POC ABG pO2 ABG pO2 ABG HCO3 ABG Base Excess ABG Hemoglobin ABG Oxyhemoglobin ABG Potassium ABG Chloride ABG Glucose Carboxyhemoglobin Sodium Potassium 5.6 H Chloride 114.1 H Carbon Dioxide 17 L BUN 62 H Creatinine 5.1 H Glucose 215 H POC Glucose 114 H Calcium 7.3 L Phosphorus AST ALT Alkaline Phosphatase Lactate Dehydrogenase CK-MB (CK-2) CK-MB (CK-2) Rel Index Troponin T C-Reactive Protein NT-Pro-B Natriuret Pep Albumin HDL Cholesterol TSH Arterial Blood Glucose Arterial Blood Ionized Calcium Hepatitis C Antibody 07/23/20 07/23/20 07/24/20 11:36 19:20 04:00 WBC RBC Hgb Hct MCV RDW Plt Count Lymph % (Auto) [facility] % (Auto) Lymph # (Auto) Seg Neutrophils % Seg Neuts % (Manual) Lymphocytes % (Manual) Nucleated RBC % Lymphocytes # (Manual) PT INR APTT D-Dimer ABG pH POC ABG pCO2 POC ABG pO2 ABG pO2 ABG HCO3 ABG Base Excess ABG Hemoglobin ABG Oxyhemoglobin ABG Potassium ABG Chloride ABG Glucose Carboxyhemoglobin Sodium Potassium Chloride 110.8 H Carbon Dioxide BUN 47 H Creatinine 4.4 H Glucose POC Glucose 66 L Calcium 7.3 L Phosphorus AST ALT Alkaline Phosphatase Lactate Dehydrogenase CK-MB (CK-2) CK-MB (CK-2) Rel Index Troponin T C-Reactive Protein NT-Pro-B Natriuret Pep Albumin HDL Cholesterol TSH Arterial Blood Glucose Arterial Blood Ionized Calcium Hepatitis C Antibody Reactive A 07/24/20 07/24/20 07/24/20 04:25 11:37 Unknown WBC RBC 2.36 L Hgb 7.5 L Hct 22.5 L MCV 95 H RDW 18.4 H Plt Count 38 L Lymph % (Auto) [facility] % (Auto) Lymph # (Auto) Seg Neutrophils % Seg Neuts % (Manual) Lymphocytes % (Manual) Nucleated RBC % Lymphocytes # (Manual) PT INR APTT D-Dimer ABG pH POC ABG pCO2 POC ABG pO2 64.8 L ABG pO2 ABG HCO3 ABG Base Excess ABG Hemoglobin 7.9 L ABG Oxyhemoglobin ABG Potassium ABG Chloride 114.0 H ABG Glucose Carboxyhemoglobin Sodium Potassium Chloride Carbon Dioxide BUN Creatinine Glucose POC Glucose 109 H Calcium Phosphorus AST ALT Alkaline Phosphatase Lactate Dehydrogenase CK-MB (CK-2) CK-MB (CK-2) Rel Index Troponin T C-Reactive Protein NT-Pro-B Natriuret Pep Albumin HDL Cholesterol TSH Arterial Blood Glucose Arterial Blood Ionized Calcium 4.2 L Hepatitis C Antibody 07/25/20 07/25/20 07/25/20 00:12 03:57 04:00 WBC RBC Hgb Hct MCV RDW Plt Count Lymph % (Auto) [facility] % (Auto) Lymph # (Auto) Seg Neutrophils % Seg Neuts % (Manual) Lymphocytes % (Manual) Nucleated RBC % Lymphocytes # (Manual) PT INR APTT D-Dimer ABG pH 7.497 H POC ABG pCO2 POC ABG pO2 62.7 L ABG pO2 ABG HCO3 ABG Base Excess ABG Hemoglobin 8.5 L ABG Oxyhemoglobin 90.1 L ABG Potassium ABG Chloride 110.0 H ABG Glucose 157 H Carboxyhemoglobin Sodium Potassium Chloride Carbon Dioxide BUN 38 H Creatinine 4.1 H Glucose 160 H POC Glucose 140 H Calcium 7.9 L Phosphorus AST ALT Alkaline Phosphatase Lactate Dehydrogenase CK-MB (CK-2) CK-MB (CK-2) Rel Index Troponin T C-Reactive Protein NT-Pro-B Natriuret Pep Albumin HDL Cholesterol TSH Arterial Blood Glucose 157 H Arterial Blood Ionized Calcium 4.3 L Hepatitis C Antibody 07/25/20 07/25/20 07/25/20 04:00 06:24 12:11 WBC RBC 2.48 L Hgb 7.7 L Hct 23.2 L MCV RDW 18.4 H Plt Count 44 L Lymph % (Auto) [facility] % (Auto) 8.5 H Lymph # (Auto) Seg Neutrophils % 76.7 H Seg Neuts % (Manual) Lymphocytes % (Manual) Nucleated RBC % Lymphocytes # (Manual) PT INR APTT D-Dimer ABG pH POC ABG pCO2 POC ABG pO2 ABG pO2 ABG HCO3 ABG Base Excess ABG Hemoglobin ABG Oxyhemoglobin ABG Potassium ABG Chloride ABG Glucose Carboxyhemoglobin Sodium Potassium Chloride Carbon Dioxide BUN Creatinine Glucose POC Glucose 155 H 205 H Calcium Phosphorus AST ALT Alkaline Phosphatase Lactate Dehydrogenase CK-MB (CK-2) CK-MB (CK-2) Rel Index Troponin T C-Reactive Protein NT-Pro-B Natriuret Pep Albumin HDL Cholesterol TSH Arterial Blood Glucose Arterial Blood Ionized Calcium Hepatitis C Antibody 07/25/20 07/26/20 07/26/20 17:41 00:18 03:54 WBC RBC Hgb Hct MCV RDW Plt Count Lymph % (Auto) [facility] % (Auto) Lymph # (Auto) Seg Neutrophils % Seg Neuts % (Manual) Lymphocytes % (Manual) Nucleated RBC % Lymphocytes # (Manual) PT INR APTT D-Dimer ABG pH 7.512 H POC ABG pCO2 POC ABG pO2 ABG pO2 121.2 H ABG HCO3 27.1 H ABG Base Excess 3.6 H ABG Hemoglobin < 5.1 L ABG Oxyhemoglobin ABG Potassium ABG Chloride ABG Glucose Carboxyhemoglobin Sodium Potassium Chloride Carbon Dioxide BUN Creatinine Glucose POC Glucose 227 H 198 H Calcium Phosphorus AST ALT Alkaline Phosphatase Lactate Dehydrogenase CK-MB (CK-2) CK-MB (CK-2) Rel Index Troponin T C-Reactive Protein NT-Pro-B Natriuret Pep Albumin HDL Cholesterol TSH Arterial Blood Glucose Arterial Blood Ionized Calcium Hepatitis C Antibody 07/26/20 07/26/20 06:31 07:00 WBC RBC 2.33 L Hgb 7.4 L Hct 21.6 L MCV RDW 18.0 H Plt Count 50 L Lymph % (Auto) 13.0 L [facility] % (Auto) Lymph # (Auto) Seg Neutrophils % 79.8 H Seg Neuts % (Manual) Lymphocytes % (Manual) Nucleated RBC % Lymphocytes # (Manual) PT INR APTT D-Dimer ABG pH POC ABG pCO2 POC ABG pO2 ABG pO2 ABG HCO3 ABG Base Excess ABG Hemoglobin ABG Oxyhemoglobin ABG Potassium ABG Chloride ABG Glucose Carboxyhemoglobin Sodium Potassium Chloride Carbon Dioxide BUN Creatinine Glucose POC Glucose 223 H Calcium Phosphorus AST ALT Alkaline Phosphatase Lactate Dehydrogenase CK-MB (CK-2) CK-MB (CK-2) Rel Index Troponin T C-Reactive Protein NT-Pro-B Natriuret Pep Albumin HDL Cholesterol TSH Arterial Blood Glucose Arterial Blood Ionized Calcium Hepatitis C Antibody Allied health notes reviewed: nursing
--- NOTE | 2020-07-26 13:12 | Progress Note ---
Assessment and Plan - Patient Problems (1) Acute on chronic renal failure Current Visit: Yes Status: Acute Qualifiers: Acute renal failure type: unspecified Chronic kidney disease stage: stage 3 (moderate) Chronic kidney disease stage 3 subtype: stage 3a (GFR 45-59) Qualified Code(s): N17.9 - Acute kidney failure, unspecified; N18.31 - Chronic kidney disease, stage 3a Plan to address problem: Acute on chronic kidney disease which was still worsening. Patient did not respond to IV diuretics. Hyperkalemia and metabolic acidosis were persisting. Dialysis was started 07/23/20. Continue Dialysis on TTS schedule and monitor response (2) Anasarca Current Visit: Yes Status: Acute Plan to address problem: Patient has not responded to aggressive IV diuretics. Dialysis was started and volume status is improving slowly (3) Anemia Current Visit: Yes Status: Chronic Qualifiers: Anemia type: unspecified type Qualified Code(s): D64.9 - Anemia, unspecified Plan to address problem: Transfuse to maintain hemoglobin above 7. (4) Hyperkalemia Current Visit: Yes Status: Acute Plan to address problem: improved on HD (5) Hypertensive chronic kidney disease with stage 1 through stage 4 chronic kidney disease, or unspecified chronic kidney disease Current Visit: No Status: Acute Plan to address problem: Blood pressure is improving. Follow-up . (6) Sepsis Current Visit: Yes Status: Suspected Qualifiers: Sepsis type: sepsis due to unspecified organism Sepsis acute organ dys function status: with acute organ dysfunction Severe sepsis acute organ d ysfunction type: acute renal failure Acute renal failure type: unspecified Severe sepsis shock status: without septic shock Qualified Code(s): A41.9 - Sepsis, unspecified organism; R65.20 - Severe sepsis without septic shock; N17.9 - Acute kidney failure, unspecified Plan to address problem: Continue empiric antibiotic. Follow-up cultures. (7) Type 2 diabetes mellitus with diabetic nephropathy Current Visit: No Status: Acute Plan to address problem: Diabetes managed per primary attending. 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 Patient has not responded to intravenous diuretics. Dialysis was started for fluid removal. Subjective Date of service: 07/26/20 Principal diagnosis: RACQUEL Interval history: Pt remains intubated, sedated Objective - Vital Signs Vital signs: Vital Signs - 12hr 07/26/20 07/26/20 07/26/20 01:30 02:00 02:30 Temperature Pulse Rate 71 72 72 Pulse Rate [ From Monitor] Respiratory 17 21 19 Rate Respiratory Rate [Bilateral Leg] Blood Pressure 120/67 120/62 110/55 O2 Sat by Pulse 99 98 99 Oximetry 07/26/20 07/26/20 07/26/20 03:00 03:30 04:00 Temperature 98.3 F Pulse Rate 73 76 74 Pulse Rate [ 72 From Monitor] Respiratory 18 12 18 Rate Respiratory Rate [Bilateral Leg] Blood Pressure 117/59 127/63 O2 Sat by Pulse 100 97 100 Oximetry 07/26/20 07/26/20 07/26/20 04:01 04:31 04:34 Temperature Pulse Rate 74 75 73 Pulse Rate [ From Monitor] Respiratory 7 L 16 Rate Respiratory Rate [Bilateral Leg] Blood Pressure 118/61 118/61 O2 Sat by Pulse 100 100 99 Oximetry 07/26/20 07/26/20 07/26/20 05:00 05:30 06:00 Temperature Pulse Rate 72 71 71 Pulse Rate [ From Monitor] Respiratory 18 19 18 Rate Respiratory Rate [Bilateral Leg] Blood Pressure 108/55 107/57 125/65 O2 Sat by Pulse 96 99 95 Oximetry 07/26/20 07/26/20 07/26/20 06:31 06:44 07:00 Temperature Pulse Rate 71 68 68 Pulse Rate [ From Monitor] Respiratory 15 17 Rate Respiratory Rate [Bilateral Leg] Blood Pressure 135/67 135/67 116/65 O2 Sat by Pulse 98 97 Oximetry 07/26/20 07/26/20 07/26/20 07:30 07:51 08:00 Temperature 97.4 F L Pulse Rate 67 70 69 Pulse Rate [ From Monitor] Respiratory 16 17 Rate Respiratory Rate [Bilateral Leg] Blood Pressure 113/62 127/70 113/58 O2 Sat by Pulse 97 99 96 Oximetry 07/26/20 07/26/20 07/26/20 08:30 09:00 09:30 Temperature Pulse Rate 71 70 71 Pulse Rate [ From Monitor] Respiratory 19 9 L 11 L Rate Respiratory Rate [Bilateral Leg] Blood Pressure 120/62 129/67 136/74 O2 Sat by Pulse 96 97 98 Oximetry 07/26/20 07/26/20 07/26/20 10:00 10:30 11:00 Temperature Pulse Rate 67 66 67 Pulse Rate [ From Monitor] Respiratory 20 17 18 Rate Respiratory 16 Rate [Bilateral Leg] Blood Pressure 129/69 106/55 110/58 O2 Sat by Pulse 97 97 Oximetry 07/26/20 07/26/20 07/26/20 11:21 11:30 12:00 Temperature 97.1 F L Pulse Rate 66 67 67 Pulse Rate [ From Monitor] Respiratory 18 11 L Rate Respiratory Rate [Bilateral Leg] Blood Pressure 107/59 116/65 127/69 O2 Sat by Pulse 99 97 98 Oximetry 07/26/20 12:30 Temperature Pulse Rate 70 Pulse Rate [ From Monitor] Respiratory 23 Rate Respiratory Rate [Bilateral Leg] Blood Pressure 124/73 O2 Sat by Pulse 96 Oximetry - General Appearance General appearance: well-developed, appears stated age, sedated on ventilator, intubated EENT: ATNC, PERRL, mucous membranes moist Neck: no JVD Respiratory: Present: Decreased Breath Sounds Cardiology: regular, S1S2 Gastrointestinal: normoactive bowel sounds Integumentary: hyperpigmentation, chronic venous stasis, hyperkeratosis, other (++ edema b/l LE ) - Lab 07/26/20 07:00 07/25/20 04:00 Most recent lab results ABG pH 7.512 pH Units (7.350-7.450) H 07/26/20 03:54 ABG pCO2 34.6 mm Hg 07/26/20 03:54 ABG pO2 121.2 mm Hg (80.0-90.0) H 07/26/20 03:54 ABG HCO3 27.1 mmol/L (20.0-26.0) H 07/26/20 03:54 ABG O2 Saturation 98.6 % (95.0-99.0) 07/26/20 03:54 Calcium 7.9 mg/dL (8.4-10.2) L 07/25/20 04:00 Phosphorus 5.80 mg/dL (2.5-4.5) H 07/22/20 10:30 Magnesium 2.10 mg/dL (1.7-2.3) 07/22/20 10:30 Medications & Allergies - Medications Allergies/Adverse Reactions: Allergies No Known Allergies Allergy (Verified 06/19/19 17:53) Home Medications: Home Medications Medication Instructions Recorded Confirmed Last Taken Type FLUoxetine [PROzac] 20 mg PO QDAY #14 capsule 06/23/19 06/21/20 Unknown Rx traZODone [Desyrel] 50 mg PO QHS #10 tablet 06/23/19 06/21/20 Unknown Rx Folic Acid 1 mg PO DAILY #30 tablet 06/25/19 06/21/20 Unknown Rx Nicotine [Habitrol] 14 mg TD DAILY #30 patch 06/25/19 06/21/20 Unknown Rx Thiamine [Vitamin B-1] 100 mg PO QDAY #30 tablet 06/25/19 06/21/20 Unknown Rx Aspirin EC [Halfprin EC] 81 mg PO QDAY #30 tablet. 07/26/19 06/21/20 Unknown Rx levETIRAcetam [Keppra TAB] 750 mg PO BID #60 tablet 07/26/19 06/21/20 Unknown Rx Furosemide [Lasix TAB] 40 mg PO QDAY #30 tablet 04/28/20 06/21/20 Unknown Rx Famotidine [Pepcid] 20 mg PO BID #60 tablet 07/05/20 Unknown Rx Insulin NPH, Human [NovoLIN N] 5 unit SUB-Q BIDDIAB 30 Days #10 ml 07/05/20 06/21/20 Unknown Rx amLODIPine 10 mg PO QDAY #30 tablet 07/05/20 Unknown Rx carvediloL [Coreg] 12.5 mg PO BID #60 tablet 07/05/20 Unknown Rx hydrALAZINE [Apresoline TAB] 50 mg PO Q8HR #30 tablet 07/06/20 Unknown Rx Active Medications: Generic Name Dose Route Start Last Admin Trade Name Freq PRN Reason Stop Dose Admin Lipase/Protease/Amylase 1 each 07/23/20 14:17 Lipase 10,500/Protease 25,000/Amylase 43,750 (Units) Dr Shell FEEDTUBE PRN PRN For Clogged Feeding Tube Aspirin 81 mg 07/19/20 10:00 07/26/20 10:04 Aspirin Ec 81 Mg Tab PO 81 mg QDAY JODIE Administration Atropine Sulfate 1 mg 07/23/20 09:03 07/23/20 22:15 Atropine 0.1% (1 Mg/10 Ml) Cardiac Syringe IV 1 mg PRN PRN Administration Bradycardia Dextrose 50 ml 07/23/20 03:28 07/23/20 06:00 Dextrose 50% In Water (25gm) 50 Ml Syringe IV 50 ml Q30MIN PRN Administration Hypoglycemia Protocol Famotidine 20 mg 07/18/20 22:00 07/26/20 10:04 Famotidine 20 Mg Tab PO 20 mg DAILY JODIE Administration Fluoxetine HCl 20 mg 07/19/20 10:00 07/26/20 10:05 Fluoxetine 20 Mg Cap PO 20 mg QDAY JODIE Administration Folic Acid 1 mg 07/19/20 10:00 07/26/20 10:05 Folic Acid 1 Mg Tab PO 1 mg DAILY JODIE Administration Hydralazine HCl 50 mg 07/18/20 14:00 07/26/20 06:44 Hydralazine 25 Mg Tab PO 50 mg Q8HR JODIE Administration Hydralazine HCl 20 mg 07/22/20 14:02 Hydralazine 20 Mg/1 Ml Inj IV Q4HR PRN Blood Pressure Hydrophilic Ointment 1 applic 07/22/20 10:02 Lip Therapy Vaseline TP Q2HR PRN Dry Lips Sodium Chloride 100 mls @ 999 mls/hr 07/23/20 11:13 Nacl 0.9% IV FRANCISCO PRN Hypotension Norepinephrine 4 mg in 250 mls @ 7.5 mls/hr 07/24/20 10:00 07/24/20 15:35 Levophed Drip 4 Mg/Ns 250 Ml IV 0 mcg/min TITR JODIE 0 mls/hr Titration Protocol 2 MCG/MIN Insulin Human Lispro 0 unit 07/26/20 10:00 07/26/20 10:07 Insulin Lispro 100 Unit/Ml SUB-Q 3 unit Q6HR JODIE Administration Protocol Levetiracetam 750 mg 07/18/20 22:00 07/26/20 10:04 Levetiracetam 500 Mg/5 Ml Oral Liqd PO 750 mg BID JODIE Administration Multi-Ingred Cream/Lotion/Oil/Oint 1 applic 07/22/20 10:02 Mineral Oil/Petrolatum, White Ophth Oint 3.5 Gm OU Q4HR PRN Dry Eye(s) Simple Syrup 15 ml 07/23/20 14:17 Simple Syrup 15 Ml FEEDTUBE PRN PRN Hypoglycemia Simple Syrup 30 ml 07/23/20 14:17 Simple Syrup 15 Ml FEEDTUBE PRN PRN Hypoglycemia Sodium Bicarbonate 325 mg 07/23/20 14:17 Sodium Bicarbonate 325 Mg Tab FEEDTUBE PRN PRN For Clogged Feeding Tube Thiamine HCl 100 mg 07/19/20 10:00 07/26/20 10:05 Thiamine 100 Mg Tab PO 100 mg QDAY JODIE Administration Trazodone HCl 50 mg 07/18/20 22:00 07/25/20 21:50 Trazodone 50 Mg Tab PO 50 mg QHS JODIE Administration
[2020-07-26] MEDS: traZODone 50 MG TAB PO SCH (21:48)
[2020-07-27] MEDS: INSULIN LISPRO 100 UNIT/ML SUB-Q SCH ×5 (00:08→23:52)
[2020-07-27 05:34] LABS: ABG Base Excess 3.7 mmol/L (-2.0-3.0); ABG HCO3 26.8 mmol/L (20.0-26.0); ABG Methemoglobin 0.5 % (0.0-1.5); ABG Oxygen Saturation 95.8 % (95.0-99.0); ABG PCO2 33.5 mm Hg; ABG PH 7.52 pH Units (7.350-7.450); ABG PO2 64.2 mm Hg (80.0-90.0)
[2020-07-27] MEDS: hydrALAZINE 25 MG TAB PO SCH ×3 (05:57→22:15)
[2020-07-27 06:48] LABS: Hematocrit 20.7 % (35.5-45.6); Mean Corpuscular HGB Conc 34 % (32-34); Mean Corpuscular Volume 93 fl (84-94); Red Blood Count 2.23 M/mm3 (3.65-5.03); Red Cell Distribution Width 18.4 % (13.2-15.2)
[2020-07-27 06:56] LABS: Calcium 8.2 mg/dL (8.4-10.2)
[2020-07-27 07:03] LABS: Platelet Count 56 K/mm3 (140-440)
[2020-07-27] MEDS: levETIRAcetam 500 MG/5 ML ORAL LIQD PO SCH ×2 (09:16→22:14)
[2020-07-27] MEDS: FOLIC ACID 1 MG TAB PO SCH (09:17)
[2020-07-27] MEDS: FAMOTIDINE 20 MG TAB PO SCH (09:17)
[2020-07-27] MEDS: ASPIRIN EC 81 MG TAB PO SCH (09:17)
[2020-07-27] MEDS: THIAMINE 100 MG TAB PO SCH (09:17)
[2020-07-27] MEDS: FLUoxetine 20 MG CAP PO SCH (09:18)
--- NOTE | 2020-07-27 09:45 | Progress Note ---
Assessment and Plan 8 y/o male with acute respiratory failure secondary to worsening renal failure, volume overload and altered mental state 07/27/20: Mental state continues to prevent conventional extubation. Currently stable on minimal vent settings. HD per renal, does not appear he was dialyzed yesterday so may get it today. If not more awake by tomorrow, suggest repeat head CT. Continue all other supportive measures. 07/26/20: Drop PEEP down to 6. Once more awake PSV trials. HD per renal. Appears to be helping, maybe they will dialyze again today. Prognosis still remains guarded. 1. Needs HD 2. Wean FiO2 and PEEP as tolerated 3. Guarded prognosis CCT 31 minutes. Subjective Date of service: 07/27/20 Principal diagnosis: RACQUEL Interval history: Remains unresponsive. RT at bedside and attempting PSV. Objective Vital Signs - 12hr 07/26/20 07/26/20 07/26/20 21:48 22:00 22:05 Temperature Pulse Rate 63 63 61 Pulse Rate [ From Monitor] Respiratory 25 H 17 Rate Blood Pressure 115/70 129/68 129/68 O2 Sat by Pulse 99 99 Oximetry 07/26/20 07/26/20 07/26/20 22:30 23:00 23:30 Temperature Pulse Rate 63 61 65 Pulse Rate [ From Monitor] Respiratory 21 18 19 Rate Blood Pressure 114/59 103/53 111/60 O2 Sat by Pulse 97 96 99 Oximetry 07/27/20 07/27/20 07/27/20 00:00 00:30 00:45 Temperature 96.1 F L Pulse Rate 70 66 67 Pulse Rate [ 68 From Monitor] Respiratory 23 19 Rate Blood Pressure 127/66 115/58 114/59 O2 Sat by Pulse 99 97 99 Oximetry 07/27/20 07/27/20 07/27/20 01:00 01:30 02:00 Temperature Pulse Rate 75 71 74 Pulse Rate [ From Monitor] Respiratory 19 18 18 Rate Blood Pressure 115/61 115/59 115/59 O2 Sat by Pulse 97 99 96 Oximetry 07/27/20 07/27/20 07/27/20 02:30 03:00 03:30 Temperature Pulse Rate 79 78 81 Pulse Rate [ From Monitor] Respiratory 19 19 20 Rate Blood Pressure 126/61 120/61 123/61 O2 Sat by Pulse 93 94 95 Oximetry 07/27/20 07/27/20 07/27/20 03:32 04:00 04:30 Temperature 98.3 F Pulse Rate 81 84 Pulse Rate [ From Monitor] Respiratory 20 19 Rate Blood Pressure 120/60 126/61 O2 Sat by Pulse 95 93 Oximetry 07/27/20 07/27/20 07/27/20 05:00 05:07 05:30 Temperature Pulse Rate 85 85 88 Pulse Rate [ From Monitor] Respiratory 19 20 Rate Blood Pressure 123/62 123/62 128/64 O2 Sat by Pulse 94 95 94 Oximetry 07/27/20 07/27/20 07/27/20 05:57 06:00 06:30 Temperature Pulse Rate 88 89 94 H Pulse Rate [ From Monitor] Respiratory 19 21 Rate Blood Pressure 124/62 124/62 131/68 O2 Sat by Pulse 97 94 Oximetry 07/27/20 07/27/20 07/27/20 07:00 07:30 08:00 Temperature 100.7 F H Pulse Rate 93 H 93 H 92 H Pulse Rate [ From Monitor] Respiratory 20 20 20 Rate Blood Pressure 123/62 121/56 121/60 O2 Sat by Pulse 95 96 98 Oximetry Constitutional: appears uncomfortable ENT: epistaxis Neck: other (large in circumference) Effort: mildly labored Ascultation: Bilateral: diminished breath sounds Neurologic: non-focal exam, unable to assess CBC and BMP: 07/27/20 06:36 07/27/20 06:36 ABG, PT/INR, D-dimer: ABG ABG pH 7.520 pH Units (7.350-7.450) H 07/27/20 05:20 POC ABG pCO2 32.7 mmHg (32.0-48.0) 07/25/20 03:57 ABG pCO2 33.5 mm Hg 07/27/20 05:20 POC ABG pO2 62.7 mmHg (83-108) L 07/25/20 03:57 ABG pO2 64.2 mm Hg (80.0-90.0) L 07/27/20 05:20 POC ABG HCO3 24.8 07/25/20 03:57 ABG O2 Saturation 95.8 % (95.0-99.0) 07/27/20 05:20 PT/INR, D-dimer PT 15.9 Sec. (12.2-14.9) H 07/22/20 10:30 INR 1.27 (0.87-1.13) H 07/22/20 10:30 D-Dimer 1036.46 ng/mlDDU (0-234) H 07/18/20 08:56 Abnormal lab findings: Abnormal Labs 07/18/20 07/18/20 07/18/20 08:56 08:56 08:56 WBC 3.5 L RBC 2.51 L Hgb 8.0 L Hct 24.5 L MCV 98 H RDW 18.3 H Plt Count 58 L Lymph % (Auto) [place] % (Auto) 11.1 H Lymph # (Auto) Seg Neutrophils % Seg Neuts % (Manual) Lymphocytes % (Manual) Nucleated RBC % Lymphocytes # (Manual) PT INR 1.18 H APTT D-Dimer ABG pH POC ABG pCO2 POC ABG pO2 ABG pO2 ABG HCO3 ABG Base Excess ABG Hemoglobin ABG Oxyhemoglobin ABG Potassium ABG Chloride ABG Glucose Oxyhemoglobin Carboxyhemoglobin Sodium 146 H Potassium 5.2 H Chloride 117.3 H Carbon Dioxide 21 L BUN 52 H Creatinine 3.1 H Glucose 118 H POC Glucose Calcium 8.1 L Phosphorus AST ALT Alkaline Phosphatase Lactate Dehydrogenase CK-MB (CK-2) CK-MB (CK-2) Rel Index Troponin T 0.057 H C-Reactive Protein NT-Pro-B Natriuret Pep Albumin HDL Cholesterol 67 H TSH Arterial Blood Glucose Arterial Blood Ionized Calcium Hepatitis C Antibody 07/18/20 07/18/20 07/18/20 08:56 08:56 08:56 WBC RBC Hgb Hct MCV RDW Plt Count Lymph % (Auto) [place] % (Auto) Lymph # (Auto) Seg Neutrophils % Seg Neuts % (Manual) Lymphocytes % (Manual) Nucleated RBC % Lymphocytes # (Manual) PT INR APTT D-Dimer 1036.46 H ABG pH POC ABG pCO2 POC ABG pO2 ABG pO2 ABG HCO3 ABG Base Excess ABG Hemoglobin ABG Oxyhemoglobin ABG Potassium ABG Chloride ABG Glucose Oxyhemoglobin Carboxyhemoglobin Sodium Potassium Chloride Carbon Dioxide BUN Creatinine Glucose POC Glucose Calcium Phosphorus AST ALT Alkaline Phosphatase Lactate Dehydrogenase CK-MB (CK-2) CK-MB (CK-2) Rel Index Troponin T C-Reactive Protein NT-Pro-B Natriuret Pep 4777 H Albumin HDL Cholesterol TSH 5.520 H Arterial Blood Glucose Arterial Blood Ionized Calcium Hepatitis C Antibody 07/18/20 07/18/20 07/18/20 10:36 18:56 19:00 WBC RBC Hgb Hct MCV RDW Plt Count Lymph % (Auto) [place] % (Auto) Lymph # (Auto) Seg Neutrophils % Seg Neuts % (Manual) Lymphocytes % (Manual) Nucleated RBC % Lymphocytes # (Manual) PT INR APTT D-Dimer ABG pH POC ABG pCO2 POC ABG pO2 ABG pO2 ABG HCO3 ABG Base Excess ABG Hemoglobin ABG Oxyhemoglobin ABG Potassium ABG Chloride ABG Glucose Oxyhemoglobin Carboxyhemoglobin Sodium Potassium Chloride Carbon Dioxide BUN Creatinine Glucose 101 H POC Glucose 66 L 63 L Calcium Phosphorus AST ALT Alkaline Phosphatase Lactate Dehydrogenase 212 H CK-MB (CK-2) CK-MB (CK-2) Rel Index Troponin T C-Reactive Protein 2.10 H NT-Pro-B Natriuret Pep Albumin HDL Cholesterol TSH Arterial Blood Glucose Arterial Blood Ionized Calcium Hepatitis C Antibody 07/19/20 07/19/20 07/19/20 06:00 06:00 16:26 WBC 3.9 L RBC 2.34 L Hgb 7.5 L Hct 23.1 L MCV 99 H RDW 18.6 H Plt Count 52 L Lymph % (Auto) [place] % (Auto) 9.4 H Lymph # (Auto) 1.0 L Seg Neutrophils % Seg Neuts % (Manual) Lymphocytes % (Manual) Nucleated RBC % Lymphocytes # (Manual) PT INR APTT D-Dimer ABG pH POC ABG pCO2 POC ABG pO2 ABG pO2 ABG HCO3 ABG Base Excess ABG Hemoglobin ABG Oxyhemoglobin ABG Potassium ABG Chloride ABG Glucose Oxyhemoglobin Carboxyhemoglobin Sodium Potassium 5.3 H Chloride 115.8 H Carbon Dioxide BUN 52 H Creatinine 3.4 H Glucose 114 H POC Glucose 123 H Calcium 7.7 L Phosphorus AST 77 H ALT < 5 L Alkaline Phosphatase 678 H Lactate Dehydrogenase CK-MB (CK-2) CK-MB (CK-2) Rel Index Troponin T C-Reactive Protein NT-Pro-B Natriuret Pep Albumin 2.2 L HDL Cholesterol TSH Arterial Blood Glucose Arterial Blood Ionized Calcium Hepatitis C Antibody 07/19/20 07/20/20 07/20/20 21:20 08:25 08:25 WBC 3.6 L RBC 2.54 L Hgb 8.0 L Hct 24.6 L MCV 97 H RDW 18.0 H Plt Count 47 L Lymph % (Auto) [place] % (Auto) 9.8 H Lymph # (Auto) 0.9 L Seg Neutrophils % Seg Neuts % (Manual) Lymphocytes % (Manual) Nucleated RBC % Lymphocytes # (Manual) PT INR APTT D-Dimer ABG pH POC ABG pCO2 POC ABG pO2 ABG pO2 ABG HCO3 ABG Base Excess ABG Hemoglobin ABG Oxyhemoglobin ABG Potassium ABG Chloride ABG Glucose Oxyhemoglobin Carboxyhemoglobin Sodium Potassium 5.4 H Chloride 115.8 H Carbon Dioxide BUN 56 H Creatinine 3.8 H Glucose 110 H POC Glucose 142 H Calcium 7.9 L Phosphorus AST ALT Alkaline Phosphatase Lactate Dehydrogenase CK-MB (CK-2) CK-MB (CK-2) Rel Index Troponin T C-Reactive Protein NT-Pro-B Natriuret Pep Albumin HDL Cholesterol TSH Arterial Blood Glucose Arterial Blood Ionized Calcium Hepatitis C Antibody 07/20/20 07/20/20 07/20/20 11:27 16:34 21:27 WBC RBC Hgb Hct MCV RDW Plt Count Lymph % (Auto) [place] % (Auto) Lymph # (Auto) Seg Neutrophils % Seg Neuts % (Manual) Lymphocytes % (Manual) Nucleated RBC % Lymphocytes # (Manual) PT INR APTT D-Dimer ABG pH POC ABG pCO2 POC ABG pO2 ABG pO2 ABG HCO3 ABG Base Excess ABG Hemoglobin ABG Oxyhemoglobin ABG Potassium ABG Chloride ABG Glucose Oxyhemoglobin Carboxyhemoglobin Sodium Potassium Chloride Carbon Dioxide BUN Creatinine Glucose POC Glucose 136 H 186 H 175 H Calcium Phosphorus AST ALT Alkaline Phosphatase Lactate Dehydrogenase CK-MB (CK-2) CK-MB (CK-2) Rel Index Troponin T C-Reactive Protein NT-Pro-B Natriuret Pep Albumin HDL Cholesterol TSH Arterial Blood Glucose Arterial Blood Ionized Calcium Hepatitis C Antibody 07/21/20 07/22/20 07/22/20 10:31 07:25 10:30 WBC 3.8 L RBC 2.53 L Hgb 7.9 L Hct 24.7 L MCV 98 H RDW 18.7 H Plt Count 35 L Lymph % (Auto) [place] % (Auto) Lymph # (Auto) Seg Neutrophils % Seg Neuts % (Manual) 92.0 H Lymphocytes % (Manual) 6.0 L Nucleated RBC % 13.0 H Lymphocytes # (Manual) 0.2 L PT INR APTT D-Dimer ABG pH POC ABG pCO2 POC ABG pO2 ABG pO2 ABG HCO3 ABG Base Excess ABG Hemoglobin ABG Oxyhemoglobin ABG Potassium ABG Chloride ABG Glucose Oxyhemoglobin Carboxyhemoglobin Sodium Potassium 5.3 H 5.6 H Chloride 115.0 H 115.1 H Carbon Dioxide 18 L BUN 59 H 61 H Creatinine 4.3 H 4.6 H Glucose 109 H POC Glucose Calcium 7.6 L 7.6 L Phosphorus AST ALT Alkaline Phosphatase Lactate Dehydrogenase CK-MB (CK-2) CK-MB (CK-2) Rel Index Troponin T C-Reactive Protein NT-Pro-B Natriuret Pep Albumin HDL Cholesterol TSH Arterial Blood Glucose Arterial Blood Ionized Calcium Hepatitis C Antibody 07/22/20 07/22/20 07/22/20 10:30 10:30 10:30 WBC RBC Hgb Hct MCV RDW Plt Count Lymph % (Auto) [place] % (Auto) Lymph # (Auto) Seg Neutrophils % Seg Neuts % (Manual) Lymphocytes % (Manual) Nucleated RBC % Lymphocytes # (Manual) PT 15.9 H INR 1.27 H APTT 38.3 H D-Dimer ABG pH POC ABG pCO2 POC ABG pO2 ABG pO2 ABG HCO3 ABG Base Excess ABG Hemoglobin ABG Oxyhemoglobin ABG Potassium ABG Chloride ABG Glucose Oxyhemoglobin Carboxyhemoglobin Sodium 146 H Potassium 5.4 H Chloride 116.4 H Carbon Dioxide BUN 61 H Creatinine 4.6 H Glucose 115 H POC Glucose Calcium 7.5 L Phosphorus 5.80 H AST 66 H ALT < 5 L Alkaline Phosphatase 604 H Lactate Dehydrogenase CK-MB (CK-2) 10.9 H CK-MB (CK-2) Rel Index 16.2 H Troponin T 0.047 H C-Reactive Protein NT-Pro-B Natriuret Pep Albumin 2.1 L HDL Cholesterol TSH Arterial Blood Glucose Arterial Blood Ionized Calcium Hepatitis C Antibody 07/22/20 07/23/20 07/23/20 11:10 03:38 03:47 WBC RBC Hgb Hct MCV RDW Plt Count Lymph % (Auto) [place] % (Auto) Lymph # (Auto) Seg Neutrophils % Seg Neuts % (Manual) Lymphocytes % (Manual) Nucleated RBC % Lymphocytes # (Manual) PT INR APTT D-Dimer ABG pH 7.203 L POC ABG pCO2 48.7 H 29.7 L POC ABG pO2 80.6 L 267.3 H ABG pO2 ABG HCO3 ABG Base Excess ABG Hemoglobin 8.6 L 8.2 L ABG Oxyhemoglobin 91.1 L 98.2 H ABG Potassium 5.4 H 5.4 H ABG Chloride 122.0 H 122.0 H ABG Glucose 105 H 101 H Oxyhemoglobin Carboxyhemoglobin 2.0 H Sodium Potassium Chloride Carbon Dioxide BUN Creatinine Glucose POC Glucose 65 L Calcium Phosphorus AST ALT Alkaline Phosphatase Lactate Dehydrogenase CK-MB (CK-2) CK-MB (CK-2) Rel Index Troponin T C-Reactive Protein NT-Pro-B Natriuret Pep Albumin HDL Cholesterol TSH Arterial Blood Glucose 105 H 101 H Arterial Blood Ionized Calcium 4.5 L 4.4 L Hepatitis C Antibody 07/23/20 07/23/20 07/23/20 06:05 06:05 06:27 WBC RBC 2.36 L Hgb 7.5 L Hct 22.7 L MCV 96 H RDW 18.9 H Plt Count 42 L Lymph % (Auto) [place] % (Auto) Lymph # (Auto) Seg Neutrophils % Seg Neuts % (Manual) Lymphocytes % (Manual) Nucleated RBC % Lymphocytes # (Manual) PT INR APTT D-Dimer ABG pH POC ABG pCO2 POC ABG pO2 ABG pO2 ABG HCO3 ABG Base Excess ABG Hemoglobin ABG Oxyhemoglobin ABG Potassium ABG Chloride ABG Glucose Oxyhemoglobin Carboxyhemoglobin Sodium Potassium 5.6 H Chloride 114.1 H Carbon Dioxide 17 L BUN 62 H Creatinine 5.1 H Glucose 215 H POC Glucose 114 H Calcium 7.3 L Phosphorus AST ALT Alkaline Phosphatase Lactate Dehydrogenase CK-MB (CK-2) CK-MB (CK-2) Rel Index Troponin T C-Reactive Protein NT-Pro-B Natriuret Pep Albumin HDL Cholesterol TSH Arterial Blood Glucose Arterial Blood Ionized Calcium Hepatitis C Antibody 07/23/20 07/23/20 07/24/20 11:36 19:20 04:00 WBC RBC Hgb Hct MCV RDW Plt Count Lymph % (Auto) [place] % (Auto) Lymph # (Auto) Seg Neutrophils % Seg Neuts % (Manual) Lymphocytes % (Manual) Nucleated RBC % Lymphocytes # (Manual) PT INR APTT D-Dimer ABG pH POC ABG pCO2 POC ABG pO2 ABG pO2 ABG HCO3 ABG Base Excess ABG Hemoglobin ABG Oxyhemoglobin ABG Potassium ABG Chloride ABG Glucose Oxyhemoglobin Carboxyhemoglobin Sodium Potassium Chloride 110.8 H Carbon Dioxide BUN 47 H Creatinine 4.4 H Glucose POC Glucose 66 L Calcium 7.3 L Phosphorus AST ALT Alkaline Phosphatase Lactate Dehydrogenase CK-MB (CK-2) CK-MB (CK-2) Rel Index Troponin T C-Reactive Protein NT-Pro-B Natriuret Pep Albumin HDL Cholesterol TSH Arterial Blood Glucose Arterial Blood Ionized Calcium Hepatitis C Antibody Reactive A 07/24/20 07/24/20 07/24/20 04:25 11:37 Unknown WBC RBC 2.36 L Hgb 7.5 L Hct 22.5 L MCV 95 H RDW 18.4 H Plt Count 38 L Lymph % (Auto) [place] % (Auto) Lymph # (Auto) Seg Neutrophils % Seg Neuts % (Manual) Lymphocytes % (Manual) Nucleated RBC % Lymphocytes # (Manual) PT INR APTT D-Dimer ABG pH POC ABG pCO2 POC ABG pO2 64.8 L ABG pO2 ABG HCO3 ABG Base Excess ABG Hemoglobin 7.9 L ABG Oxyhemoglobin ABG Potassium ABG Chloride 114.0 H ABG Glucose Oxyhemoglobin Carboxyhemoglobin Sodium Potassium Chloride Carbon Dioxide BUN Creatinine Glucose POC Glucose 109 H Calcium Phosphorus AST ALT Alkaline Phosphatase Lactate Dehydrogenase CK-MB (CK-2) CK-MB (CK-2) Rel Index Troponin T C-Reactive Protein NT-Pro-B Natriuret Pep Albumin HDL Cholesterol TSH Arterial Blood Glucose Arterial Blood Ionized Calcium 4.2 L Hepatitis C Antibody 07/25/20 07/25/20 07/25/20 00:12 03:57 04:00 WBC RBC Hgb Hct MCV RDW Plt Count Lymph % (Auto) [place] % (Auto) Lymph # (Auto) Seg Neutrophils % Seg Neuts % (Manual) Lymphocytes % (Manual) Nucleated RBC % Lymphocytes # (Manual) PT INR APTT D-Dimer ABG pH 7.497 H POC ABG pCO2 POC ABG pO2 62.7 L ABG pO2 ABG HCO3 ABG Base Excess ABG Hemoglobin 8.5 L ABG Oxyhemoglobin 90.1 L ABG Potassium ABG Chloride 110.0 H ABG Glucose 157 H Oxyhemoglobin Carboxyhemoglobin Sodium Potassium Chloride Carbon Dioxide BUN 38 H Creatinine 4.1 H Glucose 160 H POC Glucose 140 H Calcium 7.9 L Phosphorus AST ALT Alkaline Phosphatase Lactate Dehydrogenase CK-MB (CK-2) CK-MB (CK-2) Rel Index Troponin T C-Reactive Protein NT-Pro-B Natriuret Pep Albumin HDL Cholesterol TSH Arterial Blood Glucose 157 H Arterial Blood Ionized Calcium 4.3 L Hepatitis C Antibody 07/25/20 07/25/20 07/25/20 04:00 06:24 12:11 WBC RBC 2.48 L Hgb 7.7 L Hct 23.2 L MCV RDW 18.4 H Plt Count 44 L Lymph % (Auto) [place] % (Auto) 8.5 H Lymph # (Auto) Seg Neutrophils % 76.7 H Seg Neuts % (Manual) Lymphocytes % (Manual) Nucleated RBC % Lymphocytes # (Manual) PT INR APTT D-Dimer ABG pH POC ABG pCO2 POC ABG pO2 ABG pO2 ABG HCO3 ABG Base Excess ABG Hemoglobin ABG Oxyhemoglobin ABG Potassium ABG Chloride ABG Glucose Oxyhemoglobin Carboxyhemoglobin Sodium Potassium Chloride Carbon Dioxide BUN Creatinine Glucose POC Glucose 155 H 205 H Calcium Phosphorus AST ALT Alkaline Phosphatase Lactate Dehydrogenase CK-MB (CK-2) CK-MB (CK-2) Rel Index Troponin T C-Reactive Protein NT-Pro-B Natriuret Pep Albumin HDL Cholesterol TSH Arterial Blood Glucose Arterial Blood Ionized Calcium Hepatitis C Antibody 07/25/20 07/26/20 07/26/20 17:41 00:18 03:54 WBC RBC Hgb Hct MCV RDW Plt Count Lymph % (Auto) [place] % (Auto) Lymph # (Auto) Seg Neutrophils % Seg Neuts % (Manual) Lymphocytes % (Manual) Nucleated RBC % Lymphocytes # (Manual) PT INR APTT D-Dimer ABG pH 7.512 H POC ABG pCO2 POC ABG pO2 ABG pO2 121.2 H ABG HCO3 27.1 H ABG Base Excess 3.6 H ABG Hemoglobin < 5.1 L ABG Oxyhemoglobin ABG Potassium ABG Chloride ABG Glucose Oxyhemoglobin Carboxyhemoglobin Sodium Potassium Chloride Carbon Dioxide BUN Creatinine Glucose POC Glucose 227 H 198 H Calcium Phosphorus AST ALT Alkaline Phosphatase Lactate Dehydrogenase CK-MB (CK-2) CK-MB (CK-2) Rel Index Troponin T C-Reactive Protein NT-Pro-B Natriuret Pep Albumin HDL Cholesterol TSH Arterial Blood Glucose Arterial Blood Ionized Calcium Hepatitis C Antibody 0307/26/20 07/26/20 06:31 07:00 12:09 WBC RBC 2.33 L Hgb 7.4 L Hct 21.6 L MCV RDW 18.0 H Plt Count 50 L Lymph % (Auto) 13.0 L [place] % (Auto) Lymph # (Auto) Seg Neutrophils % 79.8 H Seg Neuts % (Manual) Lymphocytes % (Manual) Nucleated RBC % Lymphocytes # (Manual) PT INR APTT D-Dimer ABG pH POC ABG pCO2 POC ABG pO2 ABG pO2 ABG HCO3 ABG Base Excess ABG Hemoglobin ABG Oxyhemoglobin ABG Potassium ABG Chloride ABG Glucose Oxyhemoglobin Carboxyhemoglobin Sodium Potassium Chloride Carbon Dioxide BUN Creatinine Glucose POC Glucose 223 H 250 H Calcium Phosphorus AST ALT Alkaline Phosphatase Lactate Dehydrogenase CK-MB (CK-2) CK-MB (CK-2) Rel Index Troponin T C-Reactive Protein NT-Pro-B Natriuret Pep Albumin HDL Cholesterol TSH Arterial Blood Glucose Arterial Blood Ionized Calcium Hepatitis C Antibody 07/26/20 07/26/20 07/27/20 17:40 23:26 05:20 WBC RBC Hgb Hct MCV RDW Plt Count Lymph % (Auto) [place] % (Auto) Lymph # (Auto) Seg Neutrophils % Seg Neuts % (Manual) Lymphocytes % (Manual) Nucleated RBC % Lymphocytes # (Manual) PT INR APTT D-Dimer ABG pH 7.520 H POC ABG pCO2 POC ABG pO2 ABG pO2 64.2 L ABG HCO3 26.8 H ABG Base Excess 3.7 H ABG Hemoglobin 7.2 L ABG Oxyhemoglobin ABG Potassium ABG Chloride ABG Glucose Oxyhemoglobin 93.2 L Carboxyhemoglobin Sodium Potassium Chloride Carbon Dioxide BUN Creatinine Glucose POC Glucose 226 H 176 H Calcium Phosphorus AST ALT Alkaline Phosphatase Lactate Dehydrogenase CK-MB (CK-2) CK-MB (CK-2) Rel Index Troponin T C-Reactive Protein NT-Pro-B Natriuret Pep Albumin HDL Cholesterol TSH Arterial Blood Glucose Arterial Blood Ionized Calcium Hepatitis C Antibody 07/27/20 07/27/20 06:36 06:36 WBC RBC 2.23 L Hgb 7.0 L Hct 20.7 L MCV RDW 18.4 H Plt Count 56 L Lymph % (Auto) [place] % (Auto) Lymph # (Auto) Seg Neutrophils % Seg Neuts % (Manual) Lymphocytes % (Manual) Nucleated RBC % Lymphocytes # (Manual) PT INR APTT D-Dimer ABG pH POC ABG pCO2 POC ABG pO2 ABG pO2 ABG HCO3 ABG Base Excess ABG Hemoglobin ABG Oxyhemoglobin ABG Potassium ABG Chloride ABG Glucose Oxyhemoglobin Carboxyhemoglobin Sodium Potassium Chloride Carbon Dioxide BUN 43 H Creatinine 4.4 H Glucose 162 H POC Glucose Calcium 8.2 L Phosphorus AST ALT Alkaline Phosphatase Lactate Dehydrogenase CK-MB (CK-2) CK-MB (CK-2) Rel Index Troponin T C-Reactive Protein NT-Pro-B Natriuret Pep Albumin HDL Cholesterol TSH Arterial Blood Glucose Arterial Blood Ionized Calcium Hepatitis C Antibody Allied health notes reviewed: nursing
[2020-07-27 09:48] LABS: Total Cells Counted 100
[2020-07-27 09:55] LABS: Anisocytosis Few; Platelet Estimate Consistent w Auto
[2020-07-27 09:56] LABS: Schistocytes Rare
--- NOTE | 2020-07-27 10:51 | Progress Note ---
Assessment and Plan Cont present cardiac managemnt. Consider addition of BB in setting of CMP if HR and BPs permit. No ACEI/ARB at this time in setting of renal insufficiency requiring HD. Can consider ischemic evaluation for further investigation of CMP etiology once medically stabilized. Cont volume and electrolyte management per nephrology/HD. Persistent anemia and thrombocytopenia noted - further eval/management per primary and critical care teams. Will follow on as needed basis over the weekend. The patient has been seen in conjunction with Dr. Martino who agrees with the assessment and plan of care. - Patient Problems (1) Acute on chronic renal failure Current Visit: Yes Status: Acute Qualifiers: Acute renal failure type: unspecified Chronic kidney disease stage: stage 3 (moderate) Chronic kidney disease stage 3 subtype: stage 3a (GFR 45-59) Qualified Code(s): N17.9 - Acute kidney failure, unspecified; N18.31 - Chronic kidney disease, stage 3a (2) Anasarca Current Visit: Yes Status: Acute (3) Acute respiratory failure Current Visit: Yes Status: Acute (4) Altered mental status Current Visit: Yes Status: Acute (5) Hyperkalemia Current Visit: Yes Status: Acute (6) Sepsis Current Visit: Yes Status: Suspected Qualifiers: Sepsis type: sepsis due to unspecified organism Sepsis acute organ dysfunction status: with acute organ dysfunction Severe sepsis acute organ dysfunction type: acute renal failure Acute renal failure type: unspecified Severe sepsis shock status: without septic shock Qualified Code(s): A41.9 - Sepsis, unspecified organism; R65.20 - Severe sepsis without septic shock; N17.9 - Acute kidney failure, unspecified (7) Sinus bradycardia Current Visit: Yes Status: Acute (8) Hypotension Current Visit: Yes Status: Acute (9) Acute HFrEF (heart failure with reduced ejection fraction) Current Visit: Yes Status: Acute (10) Cardiomyopathy Current Visit: Yes Status: Chronic Qualifiers: Cardiomyopathy type: unspecified Qualified Code(s): I42.9 - Cardiomyopathy, unspecified (11) History of ETOH abuse Current Visit: Yes Status: Chronic (12) History of cocaine use Current Visit: Yes Status: Chronic (13) Cellulitis of right lower extremity Current Visit: Yes Status: Acute (14) Diabetes Current Visit: Yes Status: Chronic (15) History of CVA (cerebrovascular accident) Current Visit: Yes Status: Acute (16) Anemia Current Visit: Yes Status: Chronic Qualifiers: Anemia type: unspecified type Qualified Code(s): D64.9 - Anemia, unspecified (17) Thrombocytopenia Current Visit: Yes Status: Acute (18) Hepatitis C Current Visit: Yes Status: Chronic (19) Elevated troponin Current Visit: Yes Status: Acute Subjective Date of service: 07/27/20 Principal diagnosis: RACQUEL Interval history: pt remains intubated, unresponsive. currently weaned off vasopressors. tele reviewed - in SR with HR 70s, no events noted overnight. Objective Last Vital Signs Temp 100.7 F H 07/27/20 08:00 Pulse 90 07/27/20 10:00 Resp 20 07/27/20 10:00 BP 122/59 07/27/20 10:00 Pulse Ox 98 07/27/20 10:00 - Physical Examination General: Other (Intubated, unresponsive) HEENT: Positive: Other (Intubated, Sedated) Neck: Positive: neck supple Cardiac: Positive: Reg Rate and Rhythm, S1/S2 Lungs: Positive: Decreased Breath Sounds, Oxygen, Ventilated Respirations Neuro: Positive: Other (Intubated, unresponsive) Abdomen: Positive: Unremarkable Skin: Negative: Rash Extremities: Present: upper extr. pulses, lower extr. pulses. Absent: edema - Labs and Meds CBC 07/27/20 Range/Units 06:36 WBC 10.1 (4.5-11.0) K/mm3 RBC 2.23 L (3.65-5.03) M/mm3 Hgb 7.0 L (11.8-15.2) gm/dl Hct 20.7 L (35.5-45.6) % Plt Count 56 L (140-440) K/mm3 Comprehensive Metabolic Panel 07/27/20 Range/Units 06:36 Sodium 139 (137-145) mmol/L Potassium 3.8 (3.6-5.0) mmol/L Chloride 102.2 (98-107) mmol/L Carbon Dioxide 28 (22-30) mmol/L BUN 43 H (9-20) mg/dL Creatinine 4.4 H (0.8-1.3) mg/dL Glucose 162 H (75-100) mg/dL Calcium 8.2 L (8.4-10.2) mg/dL - Imaging and Cardiology EKG: report reviewed, image reviewed Echo: report reviewed ((06/22/20) EF 35-40%. Mild LVH. LVSF med decreased. RVSF mildly reduced. Mild Pulm HTN. Left Atrium Mildly DIlated. Right Atrium Moderately dilated. Mild MR. Moderate TR. ) - Telemetry EKG Rhythm: Sinus Rhythm - EKG Sinus rhythms and dysrhythmias: sinus rhythm - Allied health notes Allied health notes reviewed: nursing
--- NOTE | 2020-07-27 14:58 | Progress Note ---
Assessment and Plan - Patient Problems (1) Acute on chronic renal failure Current Visit: Yes Status: Acute Qualifiers: Acute renal failure type: unspecified Chronic kidney disease stage: stage 3 (moderate) Chronic kidney disease stage 3 subtype: stage 3a (GFR 45-59) Qualified Code(s): N17.9 - Acute kidney failure, unspecified; N18.31 - Chronic kidney disease, stage 3a Plan to address problem: Acute on chronic kidney disease which was still worsening. Patient did not respond to IV diuretics. Hyperkalemia and metabolic acidosis were persisting. Dialysis was started 07/23/20. Continue Dialysis on TTS schedule and monitor response (2) Anasarca Current Visit: Yes Status: Acute Plan to address problem: Patient has not responded to aggressive IV diuretics. Dialysis was started and volume status is improving slowly (3) Anemia Current Visit: Yes Status: Chronic Qualifiers: Anemia type: unspecified type Qualified Code(s): D64.9 - Anemia, unspecified Plan to address problem: Transfuse to maintain hemoglobin above 7. (4) Hyperkalemia Current Visit: Yes Status: Acute Plan to address problem: improved on HD (5) Hypertensive chronic kidney disease with stage 1 through stage 4 chronic kidney disease, or unspecified chronic kidney disease Current Visit: No Status: Acute Plan to address problem: Blood pressure is improving. Follow-up . (6) Sepsis Current Visit: Yes Status: Suspected Qualifiers: Sepsis type: sepsis due to unspecified organism Sepsis acute organ dys function status: with acute organ dysfunction Severe sepsis acute organ d ysfunction type: acute renal failure Acute renal failure type: unspecified Severe sepsis shock status: without septic shock Qualified Code(s): A41.9 - Sepsis, unspecified organism; R65.20 - Severe sepsis without septic shock; N17.9 - Acute kidney failure, unspecified Plan to address problem: Continue empiric antibiotic. Follow-up cultures. (7) Type 2 diabetes mellitus with diabetic nephropathy Current Visit: No Status: Acute Plan to address problem: Diabetes managed per primary attending. 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 Patient has not responded to intravenous diuretics. Dialysis was started for fluid removal. Subjective Date of service: 07/27/20 Principal diagnosis: RACQUEL Interval history: Pt remains intubated, sedated Objective - Vital Signs Vital signs: Vital Signs - 12hr 07/27/20 07/27/20 07/27/20 03:00 03:30 03:32 Temperature 98.3 F Pulse Rate 78 81 Respiratory 19 20 Rate Blood Pressure 120/61 123/61 O2 Sat by Pulse 94 95 Oximetry O2 Sat by Pulse Oximetry [ Anterior Bilateral Throughout] 07/27/20 07/27/20 07/27/20 04:00 04:30 05:00 Temperature Pulse Rate 81 84 85 Respiratory 20 19 19 Rate Blood Pressure 120/60 126/61 123/62 O2 Sat by Pulse 95 93 94 Oximetry O2 Sat by Pulse Oximetry [ Anterior Bilateral Throughout] 07/27/20 07/27/20 07/27/20 05:07 05:30 05:57 Temperature Pulse Rate 85 88 88 Respiratory 20 Rate Blood Pressure 123/62 128/64 124/62 O2 Sat by Pulse 95 94 Oximetry O2 Sat by Pulse Oximetry [ Anterior Bilateral Throughout] 07/27/20 07/27/20 07/27/20 06:00 06:30 07:00 Temperature Pulse Rate 89 94 H 93 H Respiratory 19 21 20 Rate Blood Pressure 124/62 131/68 123/62 O2 Sat by Pulse 97 94 95 Oximetry O2 Sat by Pulse Oximetry [ Anterior Bilateral Throughout] 07/27/20 07/27/20 07/27/20 07:30 08:00 08:30 Temperature 100.7 F H Pulse Rate 93 H 93 H 93 H Respiratory 20 20 19 Rate Blood Pressure 121/56 121/60 127/61 O2 Sat by Pulse 96 98 97 Oximetry O2 Sat by Pulse Oximetry [ Anterior Bilateral Throughout] 07/27/20 07/27/20 07/27/20 08:50 09:00 09:30 Temperature Pulse Rate 93 H 94 H 94 H Respiratory 20 20 Rate Blood Pressure 125/59 124/59 121/60 O2 Sat by Pulse 98 98 96 Oximetry O2 Sat by Pulse Oximetry [ Anterior Bilateral Throughout] 07/27/20 07/27/20 07/27/20 10:00 10:30 11:00 Temperature Pulse Rate 90 90 91 H Respiratory 20 21 20 Rate Blood Pressure 122/59 124/62 124/59 O2 Sat by Pulse 98 98 97 Oximetry O2 Sat by Pulse Oximetry [ Anterior Bilateral Throughout] 07/27/20 07/27/20 07/27/20 11:04 11:30 12:00 Temperature 99.8 F H Pulse Rate 90 90 90 Respiratory 22 20 19 Rate Blood Pressure 124/59 124/59 122/62 O2 Sat by Pulse 100 98 96 Oximetry O2 Sat by Pulse 99 Oximetry [ Anterior Bilateral Throughout] 07/27/20 07/27/20 07/27/20 12:10 12:15 12:30 Temperature Pulse Rate 90 89 90 Respiratory 19 Rate Blood Pressure 122/62 126/62 131/64 O2 Sat by Pulse 96 Oximetry O2 Sat by Pulse Oximetry [ Anterior Bilateral Throughout] 07/27/20 07/27/20 07/27/20 12:45 13:00 13:15 Temperature Pulse Rate 91 H 90 88 Respiratory 18 19 18 Rate Blood Pressure 132/66 137/67 138/70 O2 Sat by Pulse 96 96 96 Oximetry O2 Sat by Pulse Oximetry [ Anterior Bilateral Throughout] 07/27/20 07/27/20 07/27/20 13:30 13:31 13:45 Temperature Pulse Rate 87 88 87 Respiratory 18 19 Rate Blood Pressure 141/68 141/68 142/70 O2 Sat by Pulse 99 96 Oximetry O2 Sat by Pulse Oximetry [ Anterior Bilateral Throughout] 07/27/20 07/27/20 07/27/20 14:00 14:15 14:30 Temperature Pulse Rate 85 87 86 Respiratory Rate Blood Pressure 142/73 138/71 134/70 O2 Sat by Pulse Oximetry O2 Sat by Pulse Oximetry [ Anterior Bilateral Throughout] 07/27/20 14:45 Temperature Pulse Rate 81 Respiratory Rate Blood Pressure 131/64 O2 Sat by Pulse Oximetry O2 Sat by Pulse Oximetry [ Anterior Bilateral Throughout] - General Appearance General appearance: well-developed, sedated on ventilator, intubated EENT: ATNC, PERRL, mucous membranes moist Neck: no JVD Respiratory: Present: Decreased Breath Sounds Cardiology: regular, S1S2 Gastrointestinal: normoactive bowel sounds Integumentary: no rash Neurologic: other (intubated, sedated ) - Lab 07/27/20 06:36 07/27/20 06:36 Most recent lab results ABG pH 7.520 pH Units (7.350-7.450) H 07/27/20 05:20 ABG pCO2 33.5 mm Hg 07/27/20 05:20 ABG pO2 64.2 mm Hg (80.0-90.0) L 07/27/20 05:20 ABG HCO3 26.8 mmol/L (20.0-26.0) H 07/27/20 05:20 ABG O2 Saturation 95.8 % (95.0-99.0) 07/27/20 05:20 Calcium 8.2 mg/dL (8.4-10.2) L 07/27/20 06:36 Phosphorus 5.80 mg/dL (2.5-4.5) H 07/22/20 10:30 Magnesium 2.10 mg/dL (1.7-2.3) 07/22/20 10:30 Medications & Allergies - Medications Allergies/Adverse Reactions: Allergies No Known Allergies Allergy (Verified 06/19/19 17:53) Home Medications: Home Medications Medication Instructions Recorded Confirmed Last Taken Type FLUoxetine [PROzac] 20 mg PO QDAY #14 capsule 06/23/19 06/21/20 Unknown Rx traZODone [Desyrel] 50 mg PO QHS #10 tablet 06/23/19 06/21/20 Unknown Rx Folic Acid 1 mg PO DAILY #30 tablet 06/25/19 06/21/20 Unknown Rx Nicotine [Habitrol] 14 mg TD DAILY #30 patch 06/25/19 06/21/20 Unknown Rx Thiamine [Vitamin B-1] 100 mg PO QDAY #30 tablet 06/25/19 06/21/20 Unknown Rx Aspirin EC [Halfprin EC] 81 mg PO QDAY #30 tablet. 07/26/19 06/21/20 Unknown Rx levETIRAcetam [Keppra TAB] 750 mg PO BID #60 tablet 07/26/19 06/21/20 Unknown Rx Furosemide [Lasix TAB] 40 mg PO QDAY #30 tablet 04/28/20 06/21/20 Unknown Rx Famotidine [Pepcid] 20 mg PO BID #60 tablet 07/05/20 Unknown Rx Insulin NPH, Human [NovoLIN N] 5 unit SUB-Q BIDDIAB 30 Days #10 ml 07/05/2003/31 Unknown Rx amLODIPine 10 mg PO QDAY #30 tablet 07/05/20 Unknown Rx carvediloL [Coreg] 12.5 mg PO BID #60 tablet 07/05/20 Unknown Rx hydrALAZINE [Apresoline TAB] 50 mg PO Q8HR #30 tablet 07/06/20 Unknown Rx Active Medications: Generic Name Dose Route Start Last Admin Trade Name Freq PRN Reason Stop Dose Admin Lipase/Protease/Amylase 1 each 07/23/20 14:17 Lipase 10,500/Protease 25,000/Amylase 43,750 (Units) Dr Shell FEEDTUBE PRN PRN For Clogged Feeding Tube Aspirin 81 mg 07/19/20 10:00 07/27/20 09:17 Aspirin Ec 81 Mg Tab PO 81 mg QDAY JODIE Administration Atropine Sulfate 1 mg 07/23/20 09:03 07/23/20 22:15 Atropine 0.1% (1 Mg/10 Ml) Cardiac Syringe IV 1 mg PRN PRN Administration Bradycardia Dextrose 50 ml 07/23/20 03:28 07/23/20 06:00 Dextrose 50% In Water (25gm) 50 Ml Syringe IV 50 ml Q30MIN PRN Administration Hypoglycemia Protocol Famotidine 20 mg 07/18/20 22:00 07/27/20 09:17 Famotidine 20 Mg Tab PO 20 mg DAILY JODIE Administration Fluoxetine HCl 20 mg 07/19/20 10:00 07/27/20 09:18 Fluoxetine 20 Mg Cap PO 20 mg QDAY JODIE Administration Folic Acid 1 mg 07/19/20 10:00 07/27/20 09:17 Folic Acid 1 Mg Tab PO 1 mg DAILY JODIE Administration Hydralazine HCl 50 mg 07/18/20 14:00 07/27/20 05:57 Hydralazine 25 Mg Tab PO 50 mg Q8HR JODIE Administration Hydralazine HCl 20 mg 07/22/20 14:02 Hydralazine 20 Mg/1 Ml Inj IV Q4HR PRN Blood Pressure Hydrophilic Ointment 1 applic 07/22/20 10:02 Lip Therapy Vaseline TP Q2HR PRN Dry Lips Sodium Chloride 100 mls @ 999 mls/hr 07/23/20 11:13 Nacl 0.9% IV FRANCISCO PRN Hypotension Norepinephrine 4 mg in 250 mls @ 7.5 mls/hr 07/24/20 10:00 07/24/20 15:35 Levophed Drip 4 Mg/Ns 250 Ml IV 0 mcg/min TITR JODIE 0 mls/hr Titration Protocol 2 MCG/MIN Insulin Human Lispro 0 unit 07/26/20 10:00 07/27/20 12:18 Insulin Lispro 100 Unit/Ml SUB-Q Not Given Q6HR JODIE Protocol Levetiracetam 750 mg 07/18/20 22:00 07/27/20 09:16 Levetiracetam 500 Mg/5 Ml Oral Liqd PO 750 mg BID JODIE Administration Multi-Ingred Cream/Lotion/Oil/Oint 1 applic 07/22/20 10:02 Mineral Oil/Petrolatum, White Ophth Oint 3.5 Gm OU Q4HR PRN Dry Eye(s) Simple Syrup 15 ml 07/23/20 14:17 Simple Syrup 15 Ml FEEDTUBE PRN PRN Hypoglycemia Simple Syrup 30 ml 07/23/20 14:17 Simple Syrup 15 Ml FEEDTUBE PRN PRN Hypoglycemia Sodium Bicarbonate 325 mg 07/23/20 14:17 Sodium Bicarbonate 325 Mg Tab FEEDTUBE PRN PRN For Clogged Feeding Tube Thiamine HCl 100 mg 07/19/20 10:00 07/27/20 09:17 Thiamine 100 Mg Tab PO 100 mg QDAY JODIE Administration Trazodone HCl 50 mg 07/18/20 22:00 07/26/20 21:48 Trazodone 50 Mg Tab PO 50 mg QHS JODIE Administration
--- NOTE | 2020-07-27 17:10 | Progress Note ---
Assessment and Plan The high probability of a clinically significant, sudden or life threatening deterioration of the [multi] system(s) required my full and direct attention, intervention and personal management. The aggregate critical care time was [32] minutes. This time is in addition to time spent performing reported procedures but includes the following: [x] Data Review and interpretation [x] Patient assessment and monitoring of vital signs [x] Documentation [x] Medication orders and management Assessment and Plan --PUI/COVID-19 test negative/07/18/2020 --Acute on chronic kidney disease stage III; Vasomotor nephropathy, Nephrology initiated hemodialysis Management per nephrology, HD per schedule --Acute hypoxic respiratory failure: Intubated 07/22/2020 On mechanical ventilation Pulmonary critical following --Non-STEMI-2 : probably secondary to respiratory failure, chronic kidney disease Patient has risk factors, cardiology following, --Bradycardia; improved Heart rate in 60s today Hold beta-blockers,Atropine as needed --Hyperkalemia; resolved after hemodialysis HD per schedule, monitor electrolytes Nephrology following --hyponatremia; resolved Closely monitor electrolytes --Acute toxic metabolic encephalopathy; CT head without contrast, no acute abnormality --Severe protein calorie malnutrition/hypoalbuminemia, nutrition supplements, tube feeding, nutrition consult --Thrombocytopenia; HIT antibodies negative --Sepsis hypothermia; Warm blankets, treat the underlying sepsis IV antibiotics, follow cultures --h/o right calf abscess: --h/o MSSA sepsis: On Unasyn completed antibiotics on 07/24/2020 --Type 2 diabetes mellitus; Blood sugars in the lower range, avoid hypoglycemia Accu-Chek sliding scale coverage ADA diet Long-acting insulin as needed, check HbA1c 8.3 last month --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; 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%[04/2020] Continue antifailure medications Input output monitoring, diuretics Cardiology following --History of seizure disorder; Seizure precautions, continue Keppra --History of CVA; with residual weakness Fall precautions, PT OT as needed --DVT prophylaxis;thrombocytopenia, no anticoagulation Continue SCDs --Full CODE STATUS --Restraint for safety patient's niece Amee Corcoran #[phone] as well as patient's aunt Viridiana Ambrosio [phone] Camargo On 07/22/2020 and discussed in detail patient's critical condition respiratory failure requiring intubation change of status, Renal failure needing dialysis ,verbalized understanding Subjective Date of service: 07/27/20 Principal diagnosis: RACQUEL Interval history: Brief history; 64-year-old male patient with significant past medical history of diabetes mellitus chronic kidney disease CVA with residual weakness was admitted through emergency room with altered level of consciousness and unresponsiveness Patient was initially evaluated and noted to be in sepsis secondary to MSSA bacteremia on long-term antibiotics Patient's renal function progressively deteriorated, initially patient refused the options of dialysis which jeweler apprentice has discussed with him, and then suddenly patient went into respiratory arrest requiring intubation and mechanical ventilation, patient was transferred to ICU, family members were contacted, nephrology got consent from the family and hemodialysis was initiated, patient remains intubated on ventilatory support. Wean as tolerated and extubate. Hospital course; 07/19/2020; unable to pass Ayala catheter, Consulted urology, continue supportive care, COVID-19 test negative 07/20/2020; urology evaluation recommendation noted and appreciated Ayala catheter was inserted by urology, draining well MSSA bacteremia on long-term antibiotics 07/21/2020; patient is lethargic CT head without contrast, no acute abnormality Patient is afebrile 07/22/2020; patient had acute respiratory failure this morning CODE BLUE was called, patient was intubated on ventilatory support Pulmonary critical consulted, family patients aunt informed 07/23/2020; patient has severe bradycardia this morning, received atropine Cardiology following. Beta-blockers held, electrolytes corrected Patient's heart rate improved to 50s and 60s Cardiology following Nephrology planning hemodialysis trying to get consent from family 07/24/2020; patient received hemodialysis yesterday Remains intubated on ventilatory support Bradycardia significantly improved heart rate in 60s Completed 6 weeks of Unasyn for MSSA sepsis today 07/25/2020; patient remains on ventilatory support Receiving HD per schedule dual Wean as tolerated and extubate 07/26/2020; patient remains on ventilatory support, wean as tolerated and extubate Initiated hemodialysis, HD per schedule, new set of blood culture sent 07/27/20 On vent support Weaning in progress Objective - Exam Narrative Exam: Intubated - Constitutional Vitals: Vital Signs - 12hr 07/27/20 07/27/20 07/27/20 05:30 05:57 06:00 Temperature Pulse Rate 88 88 89 Respiratory 20 19 Rate Blood Pressure 128/64 124/62 124/62 O2 Sat by Pulse 94 97 Oximetry O2 Sat by Pulse Oximetry [ Anterior Bilateral Throughout] 07/27/20 07/27/20 07/27/20 06:30 07:00 07:30 Temperature Pulse Rate 94 H 93 H 93 H Respiratory 21 20 20 Rate Blood Pressure 131/68 123/62 121/56 O2 Sat by Pulse 94 95 96 Oximetry O2 Sat by Pulse Oximetry [ Anterior Bilateral Throughout] 07/27/20 07/27/20 07/27/20 08:00 08:30 08:50 Temperature 100.7 F H Pulse Rate 93 H 93 H 93 H Respiratory 20 19 Rate Blood Pressure 121/60 127/61 125/59 O2 Sat by Pulse 98 97 98 Oximetry O2 Sat by Pulse Oximetry [ Anterior Bilateral Throughout] 07/27/20 07/27/20 07/27/20 09:00 09:30 10:00 Temperature Pulse Rate 94 H 94 H 90 Respiratory 20 20 20 Rate Blood Pressure 124/59 121/60 122/59 O2 Sat by Pulse 98 96 98 Oximetry O2 Sat by Pulse Oximetry [ Anterior Bilateral Throughout] 07/27/20 07/27/20 07/27/20 10:30 11:00 11:04 Temperature Pulse Rate 90 91 H 90 Respiratory 21 20 22 Rate Blood Pressure 124/62 124/59 124/59 O2 Sat by Pulse 98 97 100 Oximetry O2 Sat by Pulse Oximetry [ Anterior Bilateral Throughout] 07/27/20 07/27/20 07/27/20 11:30 12:00 12:10 Temperature 99.8 F H Pulse Rate 90 90 90 Respiratory 20 19 Rate Blood Pressure 124/59 122/62 122/62 O2 Sat by Pulse 98 96 Oximetry O2 Sat by Pulse 99 Oximetry [ Anterior Bilateral Throughout] 07/27/20 07/27/20 07/27/20 12:15 12:30 12:45 Temperature Pulse Rate 89 90 91 H Respiratory 19 18 Rate Blood Pressure 126/62 131/64 132/66 O2 Sat by Pulse 96 96 Oximetry O2 Sat by Pulse Oximetry [ Anterior Bilateral Throughout] 07/27/20 07/27/20 07/27/20 13:00 13:15 13:30 Temperature Pulse Rate 90 88 87 Respiratory 19 18 18 Rate Blood Pressure 137/67 138/70 141/68 O2 Sat by Pulse 96 96 99 Oximetry O2 Sat by Pulse Oximetry [ Anterior Bilateral Throughout] 07/27/20 07/27/20 07/27/20 13:31 13:45 14:00 Temperature Pulse Rate 88 87 87 Respiratory 19 21 Rate Blood Pressure 141/68 142/70 142/73 O2 Sat by Pulse 96 95 Oximetry O2 Sat by Pulse Oximetry [ Anterior Bilateral Throughout] 07/27/20 07/27/20 07/27/20 14:15 14:30 14:45 Temperature Pulse Rate 85 87 80 Respiratory 18 17 17 Rate Blood Pressure 138/71 134/70 131/64 O2 Sat by Pulse 97 92 95 Oximetry O2 Sat by Pulse Oximetry [ Anterior Bilateral Throughout] 07/27/20 07/27/20 07/27/20 15:00 15:15 15:30 Temperature Pulse Rate 79 81 84 Respiratory 17 17 19 Rate Blood Pressure 124/62 127/65 144/72 O2 Sat by Pulse 96 96 93 Oximetry O2 Sat by Pulse Oximetry [ Anterior Bilateral Throughout] 07/27/20 07/27/20 07/27/20 15:45 15:46 15:48 Temperature 99.8 F H Pulse Rate 84 83 83 Respiratory 17 17 Rate Blood Pressure 127/64 127/64 127/64 O2 Sat by Pulse 92 Oximetry O2 Sat by Pulse 99 Oximetry [ Anterior Bilateral Throughout] 07/27/20 07/27/20 16:00 16:15 Temperature Pulse Rate 84 84 Respiratory 17 17 Rate Blood Pressure 138/69 135/68 O2 Sat by Pulse 100 97 Oximetry O2 Sat by Pulse Oximetry [ Anterior Bilateral Throughout] General appearance: Present: mild distress, well-nourished - EENT Eyes: PERRL, EOM intact ENT: hearing intact, clear oral mucosa Ears: bilateral: normal - Neck Neck: supple, normal ROM - Respiratory Respiratory effort: normal Respiratory: bilateral: CTA, wheezing - Breasts Breasts: normal - Cardiovascular Heart rate: 88 Rhythm: regular Heart Sounds: Present: S1 & S2. Absent: gallop, rub Extremities: pulses intact, No edema, normal color, Full ROM - Gastrointestinal General gastrointestinal: Present: soft, non-tender, non-distended, normal bowel sounds - Genitourinary Male genitourinary: normal - Integumentary Integumentary: clear, warm, dry - Musculoskeletal Musculoskeletal: 1, strength equal bilaterally - Neurologic Neurologic: moves all extremities - Psychiatric Psychiatric: memory intact, appropriate mood/affect, intact judgment & insight - Labs CBC & Chem 7: 07/30/20 09:05 07/30/20 09:05 Labs: Abnormal lab results 07/26/20 07/26/20 07/26/20 Range/Units 12:09 17:40 23:26 RBC (3.65-5.03) M/mm3 Hgb (11.8-15.2) gm/dl Hct (35.5-45.6) % RDW (13.2-15.2) % Plt Count (140-440) K/mm3 Seg Neuts % (Manual) (40.0-70.0) % Lymphocytes % (Manual) (13.4-35.0) % Nucleated RBC % (0.0-0.9) % Seg Neutrophils # Man (1.8-7.7) K/mm3 Lymphocytes # (Manual) (1.2-5.4) K/mm3 ABG pH (7.350-7.450) pH Units ABG pO2 (80.0-90.0) mm Hg ABG HCO3 (20.0-26.0) mmol/L ABG Base Excess (-2.0-3.0) mmol/L ABG Hemoglobin (14.0-18.0) gm/dl Oxyhemoglobin (95.0-99.0) % BUN (9-20) mg/dL Creatinine (0.8-1.3) mg/dL Glucose (75-100) mg/dL POC Glucose 250 H 226 H 176 H (70-105) mg/dL Calcium (8.4-10.2) mg/dL 07/27/20 07/27/20 07/27/20 Range/Units 05:20 05:42 06:36 RBC 2.23 L (3.65-5.03) M/mm3 Hgb 7.0 L (11.8-15.2) gm/dl Hct 20.7 L (35.5-45.6) % RDW 18.4 H (13.2-15.2) % Plt Count 56 L (140-440) K/mm3 Seg Neuts % (Manual) 88.0 H (40.0-70.0) % Lymphocytes % (Manual) 11.0 L (13.4-35.0) % Nucleated RBC % 2.0 H (0.0-0.9) % Seg Neutrophils # Man 8.9 H (1.8-7.7) K/mm3 Lymphocytes # (Manual) 1.1 L (1.2-5.4) K/mm3 ABG pH 7.520 H (7.350-7.450) pH Units ABG pO2 64.2 L (80.0-90.0) mm Hg ABG HCO3 26.8 H (20.0-26.0) mmol/L ABG Base Excess 3.7 H (-2.0-3.0) mmol/L ABG Hemoglobin 7.2 L (14.0-18.0) gm/dl Oxyhemoglobin 93.2 L (95.0-99.0) % BUN (9-20) mg/dL Creatinine (0.8-1.3) mg/dL Glucose (75-100) mg/dL POC Glucose 142 H (70-105) mg/dL Calcium (8.4-10.2) mg/dL 07/27/20 07/27/20 Range/Units 06:36 11:42 RBC (3.65-5.03) M/mm3 Hgb (11.8-15.2) gm/dl Hct (35.5-45.6) % RDW (13.2-15.2) % Plt Count (140-440) K/mm3 Seg Neuts % (Manual) (40.0-70.0) % Lymphocytes % (Manual) (13.4-35.0) % Nucleated RBC % (0.0-0.9) % Seg Neutrophils # Man (1.8-7.7) K/mm3 Lymphocytes # (Manual) (1.2-5.4) K/mm3 ABG pH (7.350-7.450) pH Units ABG pO2 (80.0-90.0) mm Hg ABG HCO3 (20.0-26.0) mmol/L ABG Base Excess (-2.0-3.0) mmol/L ABG Hemoglobin (14.0-18.0) gm/dl Oxyhemoglobin (95.0-99.0) % BUN 43 H (9-20) mg/dL Creatinine 4.4 H (0.8-1.3) mg/dL Glucose 162 H (75-100) mg/dL POC Glucose 134 H (70-105) mg/dL Calcium 8.2 L (8.4-10.2) mg/dL HEART Score - HEART Score Troponin: Troponin T 0.047 ng/mL (0.00-0.029) H 07/22/20 10:30
[2020-07-27] MEDS: traZODone 50 MG TAB PO SCH (22:15)
[2020-07-28] MEDS: INSULIN LISPRO 100 UNIT/ML SUB-Q SCH ×3 (05:59→17:57)
[2020-07-28] MEDS: hydrALAZINE 25 MG TAB PO SCH ×3 (06:00→22:35)
[2020-07-28 06:40] LABS: Basophils % (Auto) 0.3 % (0.0-1.8); Eosinophils % (Auto) 0.4 % (0.0-4.3); Hemoglobin 6.8 gm/dl (11.8-15.2); Lymphocytes # (Auto) 1.6 K/mm3 (1.2-5.4); Lymphocytes % (Auto) 15.7 % (13.4-35.0); Mean Corpuscular HGB Conc 34 % (32-34); Mean Corpuscular Volume 93 fl (84-94); Monocytes # (Auto) 0.9 K/mm3 (0.0-0.8); Monocytes % (Auto) 9.1 % (0.0-7.3); Red Blood Count 2.13 M/mm3 (3.65-5.03); Red Cell Distribution Width 18.4 % (13.2-15.2)
[2020-07-28 06:42] LABS: Hematocrit 19.9 % (35.5-45.6); Platelet Count 55 K/mm3 (140-440)
--- NOTE | 2020-07-28 08:37 | Progress Note ---
Assessment and Plan The high probability of a clinically significant, sudden or life threatening deterioration of the [multi] system(s) required my full and direct attention, intervention and personal management. The aggregate critical care time was [32] minutes. This time is in addition to time spent performing reported procedures but includes the following: [x] Data Review and interpretation [x] Patient assessment and monitoring of vital signs [x] Documentation [x] Medication orders and management Assessment and Plan --PUI/COVID-19 test negative/07/18/2020 --Acute on chronic kidney disease stage III; Vasomotor nephropathy, Nephrology initiated hemodialysis Management per nephrology, HD per schedule --Acute hypoxic respiratory failure: Intubated 07/22/2020 On mechanical ventilation Pulmonary critical following --Non-STEMI-2 : probably secondary to respiratory failure, chronic kidney disease Patient has risk factors, cardiology following, --Bradycardia; improved Heart rate in 60s today Hold beta-blockers,Atropine as needed --Hyperkalemia; resolved after hemodialysis HD per schedule, monitor electrolytes Nephrology following --hyponatremia; resolved Closely monitor electrolytes --Acute toxic metabolic encephalopathy; CT head without contrast, no acute abnormality --Severe protein calorie malnutrition/hypoalbuminemia, nutrition supplements, tube feeding, nutrition consult --Thrombocytopenia; HIT antibodies negative --Sepsis hypothermia; Warm blankets, treat the underlying sepsis IV antibiotics, follow cultures --h/o right calf abscess: --h/o MSSA sepsis: On Unasyn completed antibiotics on 07/24/2020 --Type 2 diabetes mellitus; Blood sugars in the lower range, avoid hypoglycemia Accu-Chek sliding scale coverage ADA diet Long-acting insulin as needed, check HbA1c 8.3 last month --Ac on lunchroom aide systolic CHF; EF 35 to 40%[04/2020] Continue antifailure medications Input output monitoring, diuretics Cardiology following --History of seizure disorder; Seizure precautions, continue Keppra --History of CVA; with residual weakness Fall precautions, PT OT as needed --DVT prophylaxis;thrombocytopenia, no anticoagulation Continue SCDs --Full CODE STATUS --Restraint for safety patient's niece Amee Corcoran #[phone] as well as patient's aunt Viridiana Ambrosio [phone] called [address] Dr Camargo On 07/22/2020 and discussed in detail patient's critical condition respiratory failure requiring intubation change of status, Renal failure needing dialysis ,verbalized understanding Subjective Date of service: 07/28/20 Principal diagnosis: RACQUEL Interval history: Brief history; 64-year-old male patient with significant past medical history of diabetes mellitus chronic kidney disease CVA with residual weakness was admitted through emergency room with altered level of consciousness and unresponsiveness Patient was initially evaluated and noted to be in sepsis secondary to MSSA bacteremia on long-term antibiotics Patient's renal function progressively deteriorated, initially patient refused the options of dialysis which sales compensation analyst has discussed with him, and then suddenly patient went into respiratory arrest requiring intubation and mechanical ventilation, patient was transferred to ICU, family members were contacted, nephrology got consent from the family and hemodialysis was initiated, patient remains intubated on ventilatory support. Wean as tolerated and extubate. Hospital course; 07/19/2020; unable to pass Ayala catheter, Consulted urology, continue supportive care, COVID-19 test negative 07/20/2020; urology evaluation recommendation noted and appreciated Ayala catheter was inserted by urology, draining well MSSA bacteremia on long-term antibiotics 07/21/2020; patient is lethargic CT head without contrast, no acute abnormality Patient is afebrile 07/22/2020; patient had acute respiratory failure this morning CODE BLUE was called, patient was intubated on ventilatory support Pulmonary critical consulted, family patients aunt informed 07/23/2020; patient has severe bradycardia this morning, received atropine Cardiology following. Beta-blockers held, electrolytes corrected Patient's heart rate improved to 50s and 60s Cardiology following Nephrology planning hemodialysis trying to get consent from family 07/24/2020; patient received hemodialysis yesterday Remains intubated on ventilatory support Bradycardia significantly improved heart rate in 60s Completed 6 weeks of Unasyn for MSSA sepsis today 07/25/2020; patient remains on ventilatory support Receiving HD per schedule dual Wean as tolerated and extubate 07/26/2020; patient remains on ventilatory support, wean as tolerated and extubate Initiated hemodialysis, HD per schedule, new set of blood culture sent 07/27/20 On vent support Weaning in progress 07/27 Weaning in progress 07/28/20 Weaning in progress Objective - Exam Narrative Exam: Intubated - Constitutional Vitals: Vital Signs - 12hr 07/27/20 07/27/20 07/27/20 21:00 21:30 21:42 Temperature Pulse Rate 86 85 81 Respiratory 20 20 Rate Blood Pressure 128/66 126/64 126/64 O2 Sat by Pulse 93 97 100 Oximetry 07/27/20 07/27/20 07/27/20 22:00 22:15 22:30 Temperature Pulse Rate 83 82 79 Respiratory 21 18 Rate Blood Pressure 104/53 104/53 130/70 O2 Sat by Pulse 100 Oximetry 07/27/20 07/27/20 07/27/20 23:00 23:03 23:31 Temperature Pulse Rate 80 82 81 Respiratory 19 20 19 Rate Blood Pressure 119/77 119/77 152/82 O2 Sat by Pulse 100 100 95 Oximetry 07/28/20 07/28/20 07/28/20 00:00 00:18 00:30 Temperature 99.0 F Pulse Rate 81 80 80 Respiratory 20 15 Rate Blood Pressure 137/71 132/71 133/64 O2 Sat by Pulse 95 97 95 Oximetry 07/28/20 07/28/20 07/28/20 01:00 01:30 02:00 Temperature Pulse Rate 80 81 81 Respiratory 18 19 20 Rate Blood Pressure 141/73 157/85 130/69 O2 Sat by Pulse 97 97 93 Oximetry 07/28/20 07/28/20 07/28/20 02:30 03:00 03:30 Temperature Pulse Rate 80 77 83 Respiratory 18 19 22 Rate Blood Pressure 123/59 129/69 129/69 O2 Sat by Pulse 92 99 Oximetry 07/28/20 07/28/20 07/28/20 04:00 04:15 04:30 Temperature 98.0 F Pulse Rate 80 77 Respiratory 19 Rate Blood Pressure 129/79 132/71 O2 Sat by Pulse 95 100 95 Oximetry 07/28/20 07/28/20 07/28/20 05:00 05:23 05:30 Temperature Pulse Rate 85 73 77 Respiratory 23 21 Rate Blood Pressure 165/95 151/78 151/78 O2 Sat by Pulse 100 98 97 Oximetry 07/28/20 07/28/20 07/28/20 06:00 06:30 08:00 Temperature 97.8 F Pulse Rate 71 74 Respiratory 20 14 Rate Blood Pressure 137/76 126/66 O2 Sat by Pulse 96 96 Oximetry 07/28/20 08:33 Temperature Pulse Rate 71 Respiratory Rate Blood Pressure 147/75 O2 Sat by Pulse 100 Oximetry General appearance: Present: mild distress, well-nourished - EENT Eyes: PERRL, EOM intact ENT: hearing intact, clear oral mucosa Ears: bilateral: normal - Neck Neck: supple, normal ROM - Respiratory Respiratory effort: normal Respiratory: bilateral: CTA, rhonchi - Breasts Breasts: normal - Cardiovascular Heart rate: 86 Rhythm: regular Heart Sounds: Present: S1 & S2. Absent: gallop, rub Extremities: pulses intact, No edema, normal color, Full ROM - Gastrointestinal General gastrointestinal: Present: soft, non-tender, non-distended, normal bowel sounds - Genitourinary Male genitourinary: normal - Integumentary Integumentary: clear, warm, dry - Musculoskeletal Musculoskeletal: generalized weakness - Neurologic Neurologic: moves all extremities - Psychiatric Psychiatric: other (Intubated) - Allied health notes Allied health notes reviewed: nursing, case management - Labs CBC & Chem 7: 07/30/20 09:05 07/30/20 09:05 Labs: Abnormal lab results 07/27/20 07/27/20 07/27/20 Range/Units 05:42 06:36 11:42 RBC (3.65-5.03) M/mm3 Hgb (11.8-15.2) gm/dl Hct (35.5-45.6) % RDW (13.2-15.2) % Plt Count (140-440) K/mm3 Mccone % (Auto) (0.0-7.3) % Mccone # (Auto) (0.0-0.8) K/mm3 Seg Neutrophils % (40.0-70.0) % Seg Neuts % (Manual) 88.0 H (40.0-70.0) % Lymphocytes % (Manual) 11.0 L (13.4-35.0) % Nucleated RBC % 2.0 H (0.0-0.9) % Seg Neutrophils # Man 8.9 H (1.8-7.7) K/mm3 Lymphocytes # (Manual) 1.1 L (1.2-5.4) K/mm3 POC Glucose 142 H 134 H (70-105) mg/dL 07/27/20 07/27/20 07/28/20 Range/Units 17:37 23:15 04:00 RBC 2.13 L (3.65-5.03) M/mm3 Hgb 6.8 L (11.8-15.2) gm/dl Hct 19.9 L* (35.5-45.6) % RDW 18.4 H (13.2-15.2) % Plt Count 55 L (140-440) K/mm3 Mccone % (Auto) 9.1 H (0.0-7.3) % Mccone # (Auto) 0.9 H (0.0-0.8) K/mm3 Seg Neutrophils % 74.5 H (40.0-70.0) % Seg Neuts % (Manual) (40.0-70.0) % Lymphocytes % (Manual) (13.4-35.0) % Nucleated RBC % (0.0-0.9) % Seg Neutrophils # Man (1.8-7.7) K/mm3 Lymphocytes # (Manual) (1.2-5.4) K/mm3 POC Glucose 169 H 173 H (70-105) mg/dL 07/28/20 Range/Units 05:14 RBC (3.65-5.03) M/mm3 Hgb (11.8-15.2) gm/dl Hct (35.5-45.6) % RDW (13.2-15.2) % Plt Count (140-440) K/mm3 Mccone % (Auto) (0.0-7.3) % Mccone # (Auto) (0.0-0.8) K/mm3 Seg Neutrophils % (40.0-70.0) % Seg Neuts % (Manual) (40.0-70.0) % Lymphocytes % (Manual) (13.4-35.0) % Nucleated RBC % (0.0-0.9) % Seg Neutrophils # Man (1.8-7.7) K/mm3 Lymphocytes # (Manual) (1.2-5.4) K/mm3 POC Glucose 169 H (70-105) mg/dL HEART Score - HEART Score Troponin: Troponin T 0.047 ng/mL (0.00-0.029) H 07/22/20 10:30
[2020-07-28] MEDS ORDERED: VANCOMYCIN/NS 1 GM/250 ML 1 GM/250 ML BAG IV ONE (09:00)
[2020-07-28] MEDS: levETIRAcetam 500 MG/5 ML ORAL LIQD PO SCH ×2 (09:43→22:35)
--- NOTE | 2020-07-28 10:25 | Progress Note ---
Assessment and Plan - Patient Problems (1) ESRD on hemodialysis Current Visit: Yes Status: Acute (2) Acute HFrEF (heart failure with reduced ejection fraction) Current Visit: Yes Status: Acute (3) Acute metabolic encephalopathy Current Visit: Yes Status: Acute (4) Acute on chronic renal failure Current Visit: Yes Status: Acute Qualifiers: Acute renal failure type: unspecified Chronic kidney disease stage: stage 3 (moderate) Chronic kidney disease stage 3 subtype: stage 3a (GFR 45-59) Qualified Code(s): N17.9 - Acute kidney failure, unspecified; N18.31 - Chronic kidney disease, stage 3a (5) Acute respiratory failure Current Visit: Yes Status: Acute (6) Anasarca Current Visit: Yes Status: Acute (7) Cellulitis of right lower extremity Current Visit: Yes Status: Acute (8) Diabetes Current Visit: Yes Status: Chronic (9) Hepatitis C Current Visit: Yes Status: Chronic (10) History of ETOH abuse Current Visit: Yes Status: Chronic (11) History of cocaine use Current Visit: Yes Status: Chronic (12) CVA (cerebral vascular accident) Current Visit: No Status: Acute Qualifiers: Precerebral and cerebral artery: middle cerebral artery Laterality of affected vessel: left (13) Cellulitis of right leg Current Visit: No Status: Acute Subjective Principal diagnosis: RACQUEL Interval history: on hd on cpap Objective Vital Signs - 12hr 07/27/20 07/27/20 07/27/20 22:30 23:00 23:03 Temperature Pulse Rate 79 80 82 Respiratory 18 19 20 Rate Blood Pressure 130/70 119/77 119/77 O2 Sat by Pulse 100 100 100 Oximetry 07/27/20 07/28/20 07/28/20 23:31 00:00 00:18 Temperature 99.0 F Pulse Rate 81 81 80 Respiratory 19 20 Rate Blood Pressure 152/82 137/71 132/71 O2 Sat by Pulse 95 95 97 Oximetry 07/28/20 07/28/20 07/28/20 00:30 01:00 01:30 Temperature Pulse Rate 80 80 81 Respiratory 15 18 19 Rate Blood Pressure 133/64 141/73 157/85 O2 Sat by Pulse 95 97 97 Oximetry 07/28/20 07/28/20 07/28/20 02:00 02:30 03:00 Temperature Pulse Rate 81 80 77 Respiratory 20 18 19 Rate Blood Pressure 130/69 123/59 129/69 O2 Sat by Pulse 93 92 99 Oximetry 07/28/20 07/28/20 07/28/20 03:30 04:00 04:15 Temperature 98.0 F Pulse Rate 83 80 Respiratory 22 Rate Blood Pressure 129/69 129/79 O2 Sat by Pulse 95 100 Oximetry 07/28/20 07/28/20 07/28/20 04:30 05:00 05:23 Temperature Pulse Rate 77 85 73 Respiratory 19 23 Rate Blood Pressure 132/71 165/95 151/78 O2 Sat by Pulse 95 100 98 Oximetry 07/28/20 07/28/20 07/28/20 05:30 06:00 06:30 Temperature Pulse Rate 77 71 74 Respiratory 21 20 14 Rate Blood Pressure 151/78 137/76 126/66 O2 Sat by Pulse 97 96 96 Oximetry 07/28/20 07/28/20 07/28/20 08:00 08:33 08:47 Temperature 97.8 F Pulse Rate 71 71 Respiratory 21 Rate Blood Pressure 147/75 147/75 O2 Sat by Pulse 100 98 Oximetry Constitutional: appears uncomfortable (cpap, orally intubated), other Eyes: non-icteric Neck: other (large in circumference) Effort: mildly labored Ascultation: Bilateral: diminished breath sounds Neurologic: non-focal exam, unable to assess CBC and BMP: 07/28/20 04:00 07/27/20 06:36 ABG, PT/INR, D-dimer: ABG ABG pH 7.520 pH Units (7.350-7.450) H 07/27/20 05:20 POC ABG pCO2 32.7 mmHg (32.0-48.0) 07/25/20 03:57 ABG pCO2 33.5 mm Hg 07/27/20 05:20 POC ABG pO2 62.7 mmHg (83-108) L 07/25/20 03:57 ABG pO2 64.2 mm Hg (80.0-90.0) L 07/27/20 05:20 POC ABG HCO3 24.8 07/25/20 03:57 ABG O2 Saturation 95.8 % (95.0-99.0) 07/27/20 05:20 PT/INR, D-dimer PT 15.9 Sec. (12.2-14.9) H 07/22/20 10:30 INR 1.27 (0.87-1.13) H 07/22/20 10:30 D-Dimer 1036.46 ng/mlDDU (0-234) H 07/18/20 08:56 Abnormal lab findings: Abnormal Labs 07/18/20 07/18/20 07/18/20 08:56 08:56 08:56 WBC 3.5 L RBC 2.51 L Hgb 8.0 L Hct 24.5 L MCV 98 H RDW 18.3 H Plt Count 58 L Lymph % (Auto) [place] % (Auto) 11.1 H Lymph # (Auto) [place] # (Auto) Seg Neutrophils % Seg Neuts % (Manual) Lymphocytes % (Manual) Nucleated RBC % Seg Neutrophils # Man Lymphocytes # (Manual) PT INR 1.18 H APTT D-Dimer ABG pH POC ABG pCO2 POC ABG pO2 ABG pO2 ABG HCO3 ABG Base Excess ABG Hemoglobin ABG Oxyhemoglobin ABG Potassium ABG Chloride ABG Glucose Oxyhemoglobin Carboxyhemoglobin Sodium 146 H Potassium 5.2 H Chloride 117.3 H Carbon Dioxide 21 L BUN 52 H Creatinine 3.1 H Glucose 118 H POC Glucose Calcium 8.1 L Phosphorus AST ALT Alkaline Phosphatase Lactate Dehydrogenase CK-MB (CK-2) CK-MB (CK-2) Rel Index Troponin T 0.057 H C-Reactive Protein NT-Pro-B Natriuret Pep Albumin HDL Cholesterol 67 H TSH Arterial Blood Glucose Arterial Blood Ionized Calcium Hepatitis C Antibody 07/18/20 07/18/20 07/18/20 08:56 08:56 08:56 WBC RBC Hgb Hct MCV RDW Plt Count Lymph % (Auto) [place] % (Auto) Lymph # (Auto) [place] # (Auto) Seg Neutrophils % Seg Neuts % (Manual) Lymphocytes % (Manual) Nucleated RBC % Seg Neutrophils # Man Lymphocytes # (Manual) PT INR APTT D-Dimer 1036.46 H ABG pH POC ABG pCO2 POC ABG pO2 ABG pO2 ABG HCO3 ABG Base Excess ABG Hemoglobin ABG Oxyhemoglobin ABG Potassium ABG Chloride ABG Glucose Oxyhemoglobin Carboxyhemoglobin Sodium Potassium Chloride Carbon Dioxide BUN Creatinine Glucose POC Glucose Calcium Phosphorus AST ALT Alkaline Phosphatase Lactate Dehydrogenase CK-MB (CK-2) CK-MB (CK-2) Rel Index Troponin T C-Reactive Protein NT-Pro-B Natriuret Pep 4777 H Albumin HDL Cholesterol TSH 5.520 H Arterial Blood Glucose Arterial Blood Ionized Calcium Hepatitis C Antibody 07/18/20 07/18/20 07/18/20 10:36 18:56 19:00 WBC RBC Hgb Hct MCV RDW Plt Count Lymph % (Auto) [place] % (Auto) Lymph # (Auto) [place] # (Auto) Seg Neutrophils % Seg Neuts % (Manual) Lymphocytes % (Manual) Nucleated RBC % Seg Neutrophils # Man Lymphocytes # (Manual) PT INR APTT D-Dimer ABG pH POC ABG pCO2 POC ABG pO2 ABG pO2 ABG HCO3 ABG Base Excess ABG Hemoglobin ABG Oxyhemoglobin ABG Potassium ABG Chloride ABG Glucose Oxyhemoglobin Carboxyhemoglobin Sodium Potassium Chloride Carbon Dioxide BUN Creatinine Glucose 101 H POC Glucose 66 L 63 L Calcium Phosphorus AST ALT Alkaline Phosphatase Lactate Dehydrogenase 212 H CK-MB (CK-2) CK-MB (CK-2) Rel Index Troponin T C-Reactive Protein 2.10 H NT-Pro-B Natriuret Pep Albumin HDL Cholesterol TSH Arterial Blood Glucose Arterial Blood Ionized Calcium Hepatitis C Antibody 07/19/20 07/19/20 07/19/20 06:00 06:00 16:26 WBC 3.9 L RBC 2.34 L Hgb 7.5 L Hct 23.1 L MCV 99 H RDW 18.6 H Plt Count 52 L Lymph % (Auto) [place] % (Auto) 9.4 H Lymph # (Auto) 1.0 L [place] # (Auto) Seg Neutrophils % Seg Neuts % (Manual) Lymphocytes % (Manual) Nucleated RBC % Seg Neutrophils # Man Lymphocytes # (Manual) PT INR APTT D-Dimer ABG pH POC ABG pCO2 POC ABG pO2 ABG pO2 ABG HCO3 ABG Base Excess ABG Hemoglobin ABG Oxyhemoglobin ABG Potassium ABG Chloride ABG Glucose Oxyhemoglobin Carboxyhemoglobin Sodium Potassium 5.3 H Chloride 115.8 H Carbon Dioxide BUN 52 H Creatinine 3.4 H Glucose 114 H POC Glucose 123 H Calcium 7.7 L Phosphorus AST 77 H ALT < 5 L Alkaline Phosphatase 678 H Lactate Dehydrogenase CK-MB (CK-2) CK-MB (CK-2) Rel Index Troponin T C-Reactive Protein NT-Pro-B Natriuret Pep Albumin 2.2 L HDL Cholesterol TSH Arterial Blood Glucose Arterial Blood Ionized Calcium Hepatitis C Antibody 07/19/20 07/20/20 07/20/20 21:20 08:25 08:25 WBC 3.6 L RBC 2.54 L Hgb 8.0 L Hct 24.6 L MCV 97 H RDW 18.0 H Plt Count 47 L Lymph % (Auto) [place] % (Auto) 9.8 H Lymph # (Auto) 0.9 L [place] # (Auto) Seg Neutrophils % Seg Neuts % (Manual) Lymphocytes % (Manual) Nucleated RBC % Seg Neutrophils # Man Lymphocytes # (Manual) PT INR APTT D-Dimer ABG pH POC ABG pCO2 POC ABG pO2 ABG pO2 ABG HCO3 ABG Base Excess ABG Hemoglobin ABG Oxyhemoglobin ABG Potassium ABG Chloride ABG Glucose Oxyhemoglobin Carboxyhemoglobin Sodium Potassium 5.4 H Chloride 115.8 H Carbon Dioxide BUN 56 H Creatinine 3.8 H Glucose 110 H POC Glucose 142 H Calcium 7.9 L Phosphorus AST ALT Alkaline Phosphatase Lactate Dehydrogenase CK-MB (CK-2) CK-MB (CK-2) Rel Index Troponin T C-Reactive Protein NT-Pro-B Natriuret Pep Albumin HDL Cholesterol TSH Arterial Blood Glucose Arterial Blood Ionized Calcium Hepatitis C Antibody 07/20/20 07/20/20 07/20/20 11:27 16:34 21:27 WBC RBC Hgb Hct MCV RDW Plt Count Lymph % (Auto) [place] % (Auto) Lymph # (Auto) [place] # (Auto) Seg Neutrophils % Seg Neuts % (Manual) Lymphocytes % (Manual) Nucleated RBC % Seg Neutrophils # Man Lymphocytes # (Manual) PT INR APTT D-Dimer ABG pH POC ABG pCO2 POC ABG pO2 ABG pO2 ABG HCO3 ABG Base Excess ABG Hemoglobin ABG Oxyhemoglobin ABG Potassium ABG Chloride ABG Glucose Oxyhemoglobin Carboxyhemoglobin Sodium Potassium Chloride Carbon Dioxide BUN Creatinine Glucose POC Glucose 136 H 186 H 175 H Calcium Phosphorus AST ALT Alkaline Phosphatase Lactate Dehydrogenase CK-MB (CK-2) CK-MB (CK-2) Rel Index Troponin T C-Reactive Protein NT-Pro-B Natriuret Pep Albumin HDL Cholesterol TSH Arterial Blood Glucose Arterial Blood Ionized Calcium Hepatitis C Antibody 07/21/20 07/22/20 07/22/20 10:31 07:25 10:30 WBC 3.8 L RBC 2.53 L Hgb 7.9 L Hct 24.7 L MCV 98 H RDW 18.7 H Plt Count 35 L Lymph % (Auto) [place] % (Auto) Lymph # (Auto) [place] # (Auto) Seg Neutrophils % Seg Neuts % (Manual) 92.0 H Lymphocytes % (Manual) 6.0 L Nucleated RBC % 13.0 H Seg Neutrophils # Man Lymphocytes # (Manual) 0.2 L PT INR APTT D-Dimer ABG pH POC ABG pCO2 POC ABG pO2 ABG pO2 ABG HCO3 ABG Base Excess ABG Hemoglobin ABG Oxyhemoglobin ABG Potassium ABG Chloride ABG Glucose Oxyhemoglobin Carboxyhemoglobin Sodium Potassium 5.3 H 5.6 H Chloride 115.0 H 115.1 H Carbon Dioxide 18 L BUN 59 H 61 H Creatinine 4.3 H 4.6 H Glucose 109 H POC Glucose Calcium 7.6 L 7.6 L Phosphorus AST ALT Alkaline Phosphatase Lactate Dehydrogenase CK-MB (CK-2) CK-MB (CK-2) Rel Index Troponin T C-Reactive Protein NT-Pro-B Natriuret Pep Albumin HDL Cholesterol TSH Arterial Blood Glucose Arterial Blood Ionized Calcium Hepatitis C Antibody 07/22/20 07/22/20 07/22/20 10:30 10:30 10:30 WBC RBC Hgb Hct MCV RDW Plt Count Lymph % (Auto) [place] % (Auto) Lymph # (Auto) [place] # (Auto) Seg Neutrophils % Seg Neuts % (Manual) Lymphocytes % (Manual) Nucleated RBC % Seg Neutrophils # Man Lymphocytes # (Manual) PT 15.9 H INR 1.27 H APTT 38.3 H D-Dimer ABG pH POC ABG pCO2 POC ABG pO2 ABG pO2 ABG HCO3 ABG Base Excess ABG Hemoglobin ABG Oxyhemoglobin ABG Potassium ABG Chloride ABG Glucose Oxyhemoglobin Carboxyhemoglobin Sodium 146 H Potassium 5.4 H Chloride 116.4 H Carbon Dioxide BUN 61 H Creatinine 4.6 H Glucose 115 H POC Glucose Calcium 7.5 L Phosphorus 5.80 H AST 66 H ALT < 5 L Alkaline Phosphatase 604 H Lactate Dehydrogenase CK-MB (CK-2) 10.9 H CK-MB (CK-2) Rel Index 16.2 H Troponin T 0.047 H C-Reactive Protein NT-Pro-B Natriuret Pep Albumin 2.1 L HDL Cholesterol TSH Arterial Blood Glucose Arterial Blood Ionized Calcium Hepatitis C Antibody 07/22/20 07/23/20 07/23/20 11:10 03:38 03:47 WBC RBC Hgb Hct MCV RDW Plt Count Lymph % (Auto) [place] % (Auto) Lymph # (Auto) [place] # (Auto) Seg Neutrophils % Seg Neuts % (Manual) Lymphocytes % (Manual) Nucleated RBC % Seg Neutrophils # Man Lymphocytes # (Manual) PT INR APTT D-Dimer ABG pH 7.203 L POC ABG pCO2 48.7 H 29.7 L POC ABG pO2 80.6 L 267.3 H ABG pO2 ABG HCO3 ABG Base Excess ABG Hemoglobin 8.6 L 8.2 L ABG Oxyhemoglobin 91.1 L 98.2 H ABG Potassium 5.4 H 5.4 H ABG Chloride 122.0 H 122.0 H ABG Glucose 105 H 101 H Oxyhemoglobin Carboxyhemoglobin 2.0 H Sodium Potassium Chloride Carbon Dioxide BUN Creatinine Glucose POC Glucose 65 L Calcium Phosphorus AST ALT Alkaline Phosphatase Lactate Dehydrogenase CK-MB (CK-2) CK-MB (CK-2) Rel Index Troponin T C-Reactive Protein NT-Pro-B Natriuret Pep Albumin HDL Cholesterol TSH Arterial Blood Glucose 105 H 101 H Arterial Blood Ionized Calcium 4.5 L 4.4 L Hepatitis C Antibody 07/23/20 07/23/20 07/23/20 06:05 06:05 06:27 WBC RBC 2.36 L Hgb 7.5 L Hct 22.7 L MCV 96 H RDW 18.9 H Plt Count 42 L Lymph % (Auto) [place] % (Auto) Lymph # (Auto) [place] # (Auto) Seg Neutrophils % Seg Neuts % (Manual) Lymphocytes % (Manual) Nucleated RBC % Seg Neutrophils # Man Lymphocytes # (Manual) PT INR APTT D-Dimer ABG pH POC ABG pCO2 POC ABG pO2 ABG pO2 ABG HCO3 ABG Base Excess ABG Hemoglobin ABG Oxyhemoglobin ABG Potassium ABG Chloride ABG Glucose Oxyhemoglobin Carboxyhemoglobin Sodium Potassium 5.6 H Chloride 114.1 H Carbon Dioxide 17 L BUN 62 H Creatinine 5.1 H Glucose 215 H POC Glucose 114 H Calcium 7.3 L Phosphorus AST ALT Alkaline Phosphatase Lactate Dehydrogenase CK-MB (CK-2) CK-MB (CK-2) Rel Index Troponin T C-Reactive Protein NT-Pro-B Natriuret Pep Albumin HDL Cholesterol TSH Arterial Blood Glucose Arterial Blood Ionized Calcium Hepatitis C Antibody 07/23/20 07/23/20 07/24/20 11:36 19:20 04:00 WBC RBC Hgb Hct MCV RDW Plt Count Lymph % (Auto) [place] % (Auto) Lymph # (Auto) [place] # (Auto) Seg Neutrophils % Seg Neuts % (Manual) Lymphocytes % (Manual) Nucleated RBC % Seg Neutrophils # Man Lymphocytes # (Manual) PT INR APTT D-Dimer ABG pH POC ABG pCO2 POC ABG pO2 ABG pO2 ABG HCO3 ABG Base Excess ABG Hemoglobin ABG Oxyhemoglobin ABG Potassium ABG Chloride ABG Glucose Oxyhemoglobin Carboxyhemoglobin Sodium Potassium Chloride 110.8 H Carbon Dioxide BUN 47 H Creatinine 4.4 H Glucose POC Glucose 66 L Calcium 7.3 L Phosphorus AST ALT Alkaline Phosphatase Lactate Dehydrogenase CK-MB (CK-2) CK-MB (CK-2) Rel Index Troponin T C-Reactive Protein NT-Pro-B Natriuret Pep Albumin HDL Cholesterol TSH Arterial Blood Glucose Arterial Blood Ionized Calcium Hepatitis C Antibody Reactive A 07/24/20 07/24/20 07/24/20 04:25 11:37 Unknown WBC RBC 2.36 L Hgb 7.5 L Hct 22.5 L MCV 95 H RDW 18.4 H Plt Count 38 L Lymph % (Auto) [place] % (Auto) Lymph # (Auto) [place] # (Auto) Seg Neutrophils % Seg Neuts % (Manual) Lymphocytes % (Manual) Nucleated RBC % Seg Neutrophils # Man Lymphocytes # (Manual) PT INR APTT D-Dimer ABG pH POC ABG pCO2 POC ABG pO2 64.8 L ABG pO2 ABG HCO3 ABG Base Excess ABG Hemoglobin 7.9 L ABG Oxyhemoglobin ABG Potassium ABG Chloride 114.0 H ABG Glucose Oxyhemoglobin Carboxyhemoglobin Sodium Potassium Chloride Carbon Dioxide BUN Creatinine Glucose POC Glucose 109 H Calcium Phosphorus AST ALT Alkaline Phosphatase Lactate Dehydrogenase CK-MB (CK-2) CK-MB (CK-2) Rel Index Troponin T C-Reactive Protein NT-Pro-B Natriuret Pep Albumin HDL Cholesterol TSH Arterial Blood Glucose Arterial Blood Ionized Calcium 4.2 L Hepatitis C Antibody 07/25/20 07/25/20 07/25/20 00:12 03:57 04:00 WBC RBC Hgb Hct MCV RDW Plt Count Lymph % (Auto) [place] % (Auto) Lymph # (Auto) [place] # (Auto) Seg Neutrophils % Seg Neuts % (Manual) Lymphocytes % (Manual) Nucleated RBC % Seg Neutrophils # Man Lymphocytes # (Manual) PT INR APTT D-Dimer ABG pH 7.497 H POC ABG pCO2 POC ABG pO2 62.7 L ABG pO2 ABG HCO3 ABG Base Excess ABG Hemoglobin 8.5 L ABG Oxyhemoglobin 90.1 L ABG Potassium ABG Chloride 110.0 H ABG Glucose 157 H Oxyhemoglobin Carboxyhemoglobin Sodium Potassium Chloride Carbon Dioxide BUN 38 H Creatinine 4.1 H Glucose 160 H POC Glucose 140 H Calcium 7.9 L Phosphorus AST ALT Alkaline Phosphatase Lactate Dehydrogenase CK-MB (CK-2) CK-MB (CK-2) Rel Index Troponin T C-Reactive Protein NT-Pro-B Natriuret Pep Albumin HDL Cholesterol TSH Arterial Blood Glucose 157 H Arterial Blood Ionized Calcium 4.3 L Hepatitis C Antibody 07/25/20 07/25/20 07/25/20 04:00 06:24 12:11 WBC RBC 2.48 L Hgb 7.7 L Hct 23.2 L MCV RDW 18.4 H Plt Count 44 L Lymph % (Auto) [place] % (Auto) 8.5 H Lymph # (Auto) [place] # (Auto) Seg Neutrophils % 76.7 H Seg Neuts % (Manual) Lymphocytes % (Manual) Nucleated RBC % Seg Neutrophils # Man Lymphocytes # (Manual) PT INR APTT D-Dimer ABG pH POC ABG pCO2 POC ABG pO2 ABG pO2 ABG HCO3 ABG Base Excess ABG Hemoglobin ABG Oxyhemoglobin ABG Potassium ABG Chloride ABG Glucose Oxyhemoglobin Carboxyhemoglobin Sodium Potassium Chloride Carbon Dioxide BUN Creatinine Glucose POC Glucose 155 H 205 H Calcium Phosphorus AST ALT Alkaline Phosphatase Lactate Dehydrogenase CK-MB (CK-2) CK-MB (CK-2) Rel Index Troponin T C-Reactive Protein NT-Pro-B Natriuret Pep Albumin HDL Cholesterol TSH Arterial Blood Glucose Arterial Blood Ionized Calcium Hepatitis C Antibody 07/25/20 07/26/20 07/26/20 17:41 00:18 03:54 WBC RBC Hgb Hct MCV RDW Plt Count Lymph % (Auto) [place] % (Auto) Lymph # (Auto) [place] # (Auto) Seg Neutrophils % Seg Neuts % (Manual) Lymphocytes % (Manual) Nucleated RBC % Seg Neutrophils # Man Lymphocytes # (Manual) PT INR APTT D-Dimer ABG pH 7.512 H POC ABG pCO2 POC ABG pO2 ABG pO2 121.2 H ABG HCO3 27.1 H ABG Base Excess 3.6 H ABG Hemoglobin < 5.1 L ABG Oxyhemoglobin ABG Potassium ABG Chloride ABG Glucose Oxyhemoglobin Carboxyhemoglobin Sodium Potassium Chloride Carbon Dioxide BUN Creatinine Glucose POC Glucose 227 H 198 H Calcium Phosphorus AST ALT Alkaline Phosphatase Lactate Dehydrogenase CK-MB (CK-2) CK-MB (CK-2) Rel Index Troponin T C-Reactive Protein NT-Pro-B Natriuret Pep Albumin HDL Cholesterol TSH Arterial Blood Glucose Arterial Blood Ionized Calcium Hepatitis C Antibody 07/26/20 07/26/20 07/26/20 06:31 07:00 12:09 WBC RBC 2.33 L Hgb 7.4 L Hct 21.6 L MCV RDW 18.0 H Plt Count 50 L Lymph % (Auto) 13.0 L [place] % (Auto) Lymph # (Auto) [place] # (Auto) Seg Neutrophils % 79.8 H Seg Neuts % (Manual) Lymphocytes % (Manual) Nucleated RBC % Seg Neutrophils # Man Lymphocytes # (Manual) PT INR APTT D-Dimer ABG pH POC ABG pCO2 POC ABG pO2 ABG pO2 ABG HCO3 ABG Base Excess ABG Hemoglobin ABG Oxyhemoglobin ABG Potassium ABG Chloride ABG Glucose Oxyhemoglobin Carboxyhemoglobin Sodium Potassium Chloride Carbon Dioxide BUN Creatinine Glucose POC Glucose 223 H 250 H Calcium Phosphorus AST ALT Alkaline Phosphatase Lactate Dehydrogenase CK-MB (CK-2) CK-MB (CK-2) Rel Index Troponin T C-Reactive Protein NT-Pro-B Natriuret Pep Albumin HDL Cholesterol TSH Arterial Blood Glucose Arterial Blood Ionized Calcium Hepatitis C Antibody 07/26/20 07/26/20 07/27/20 17:40 23:26 05:20 WBC RBC Hgb Hct MCV RDW Plt Count Lymph % (Auto) [place] % (Auto) Lymph # (Auto) [place] # (Auto) Seg Neutrophils % Seg Neuts % (Manual) Lymphocytes % (Manual) Nucleated RBC % Seg Neutrophils # Man Lymphocytes # (Manual) PT INR APTT D-Dimer ABG pH 7.520 H POC ABG pCO2 POC ABG pO2 ABG pO2 64.2 L ABG HCO3 26.8 H ABG Base Excess 3.7 H ABG Hemoglobin 7.2 L ABG Oxyhemoglobin ABG Potassium ABG Chloride ABG Glucose Oxyhemoglobin 93.2 L Carboxyhemoglobin Sodium Potassium Chloride Carbon Dioxide BUN Creatinine Glucose POC Glucose 226 H 176 H Calcium Phosphorus AST ALT Alkaline Phosphatase Lactate Dehydrogenase CK-MB (CK-2) CK-MB (CK-2) Rel Index Troponin T C-Reactive Protein NT-Pro-B Natriuret Pep Albumin HDL Cholesterol TSH Arterial Blood Glucose Arterial Blood Ionized Calcium Hepatitis C Antibody 07/27/20 07/27/20 07/27/20 05:42 06:36 06:36 WBC RBC 2.23 L Hgb 7.0 L Hct 20.7 L MCV RDW 18.4 H Plt Count 56 L Lymph % (Auto) [place] % (Auto) Lymph # (Auto) [place] # (Auto) Seg Neutrophils % Seg Neuts % (Manual) 88.0 H Lymphocytes % (Manual) 11.0 L Nucleated RBC % 2.0 H Seg Neutrophils # Man 8.9 H Lymphocytes # (Manual) 1.1 L PT INR APTT D-Dimer ABG pH POC ABG pCO2 POC ABG pO2 ABG pO2 ABG HCO3 ABG Base Excess ABG Hemoglobin ABG Oxyhemoglobin ABG Potassium ABG Chloride ABG Glucose Oxyhemoglobin Carboxyhemoglobin Sodium Potassium Chloride Carbon Dioxide BUN 43 H Creatinine 4.4 H Glucose 162 H POC Glucose 142 H Calcium 8.2 L Phosphorus AST ALT Alkaline Phosphatase Lactate Dehydrogenase CK-MB (CK-2) CK-MB (CK-2) Rel Index Troponin T C-Reactive Protein NT-Pro-B Natriuret Pep Albumin HDL Cholesterol TSH Arterial Blood Glucose Arterial Blood Ionized Calcium Hepatitis C Antibody 07/27/20 07/27/20 07/27/20 11:42 17:37 23:15 WBC RBC Hgb Hct MCV RDW Plt Count Lymph % (Auto) [place] % (Auto) Lymph # (Auto) [place] # (Auto) Seg Neutrophils % Seg Neuts % (Manual) Lymphocytes % (Manual) Nucleated RBC % Seg Neutrophils # Man Lymphocytes # (Manual) PT INR APTT D-Dimer ABG pH POC ABG pCO2 POC ABG pO2 ABG pO2 ABG HCO3 ABG Base Excess ABG Hemoglobin ABG Oxyhemoglobin ABG Potassium ABG Chloride ABG Glucose Oxyhemoglobin Carboxyhemoglobin Sodium Potassium Chloride Carbon Dioxide BUN Creatinine Glucose POC Glucose 134 H 169 H 173 H Calcium Phosphorus AST ALT Alkaline Phosphatase Lactate Dehydrogenase CK-MB (CK-2) CK-MB (CK-2) Rel Index Troponin T C-Reactive Protein NT-Pro-B Natriuret Pep Albumin HDL Cholesterol TSH Arterial Blood Glucose Arterial Blood Ionized Calcium Hepatitis C Antibody 07/28/20 07/28/20 04:00 05:14 WBC RBC 2.13 L Hgb 6.8 L Hct 19.9 L* MCV RDW 18.4 H Plt Count 55 L Lymph % (Auto) [place] % (Auto) 9.1 H Lymph # (Auto) [place] # (Auto) 0.9 H Seg Neutrophils % 74.5 H Seg Neuts % (Manual) Lymphocytes % (Manual) Nucleated RBC % Seg Neutrophils # Man Lymphocytes # (Manual) PT INR APTT D-Dimer ABG pH POC ABG pCO2 POC ABG pO2 ABG pO2 ABG HCO3 ABG Base Excess ABG Hemoglobin ABG Oxyhemoglobin ABG Potassium ABG Chloride ABG Glucose Oxyhemoglobin Carboxyhemoglobin Sodium Potassium Chloride Carbon Dioxide BUN Creatinine Glucose POC Glucose 169 H Calcium Phosphorus AST ALT Alkaline Phosphatase Lactate Dehydrogenase CK-MB (CK-2) CK-MB (CK-2) Rel Index Troponin T C-Reactive Protein NT-Pro-B Natriuret Pep Albumin HDL Cholesterol TSH Arterial Blood Glucose Arterial Blood Ionized Calcium Hepatitis C Antibody Allied health notes reviewed: nursing
--- NOTE | 2020-07-28 11:21 | Progress Note ---
Assessment and Plan - Patient Problems (1) Acute on chronic renal failure Current Visit: Yes Status: Acute Qualifiers: Acute renal failure type: unspecified Chronic kidney disease stage: stage 3 (moderate) Chronic kidney disease stage 3 subtype: stage 3a (GFR 45-59) Qualified Code(s): N17.9 - Acute kidney failure, unspecified; N18.31 - Chronic kidney disease, stage 3a Plan to address problem: Patient has likely underlying chronic kidney disease stage IIIb in the setting of hypertension and diabetes. With worsening renal failure and unresponsiveness to optimal IV diuretic regimen patient was started on hemodialysis therapy. We will adjust his schedule to Thursday with sequential ultrafiltration treatments for Thursday in order to optimize his volume status. We will continue to monitor for signs of renal function and recovery. (2) Anasarca Current Visit: Yes Status: Acute Plan to address problem: Patient unfortunately did not respond well to optimal IV diuretic regimen. Secondary to persistent edema and worsening renal failure he was started on hemodialysis therapy. (3) Anemia Current Visit: Yes Status: Chronic Qualifiers: Anemia type: unspecified type Qualified Code(s): D64.9 - Anemia, unspecified Plan to address problem: Transfuse to maintain hemoglobin above 7. (4) Hyperkalemia Current Visit: Yes Status: Acute Plan to address problem: Correct with hemodialysis. (5) Sepsis Current Visit: Yes Status: Suspected Qualifiers: Sepsis type: sepsis due to unspecified organism Sepsis acute organ dysfunction status: with acute organ dysfunction Severe sepsis acute organ dysfunction type: acute renal failure Acute renal failure type: unspecified Severe sepsis shock status: without septic shock Qualified Code(s): A41.9 - Sepsis, unspecified organism; R65.20 - Severe sepsis without septic shock; N17.9 - Acute kidney failure, unspecified Plan to address problem: Please ensure that antibiotics are dosed appropriate for his decreased renal function. Off pressor support at this time. 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 Unresponsive to optimal diuretic regimen and therefore was transitioned to hemodialysis. (7) Hypertensive chronic kidney disease with stage 1 through stage 4 chronic kidney disease, or unspecified chronic kidney disease Current Visit: No Status: Acute Plan to address problem: We will hold off on all blood pressure medication at this time giving his current hemodynamic status. (8) Type 2 diabetes mellitus with diabetic nephropathy Current Visit: No Status: Acute Plan to address problem: Diabetes managed per primary attending. Subjective Date of service: 07/28/20 Principal diagnosis: RACQUEL Interval history: Patient now has been initiated on hemodialysis. This tolerating treatment well. Goal for hemodialysis today is 3 L of ultrafiltration. He did tolerate 3 L of ultrafiltration yesterday. He has a Vas-Cath in place at this time. Off pressor support. Objective - Vital Signs Vital signs: Vital Signs - 12hr 07/27/20 07/28/20 07/28/20 23:31 00:00 00:18 Temperature 99.0 F Pulse Rate 81 81 80 Respiratory 19 20 Rate Blood Pressure 152/82 137/71 132/71 O2 Sat by Pulse 95 95 97 Oximetry O2 Sat by Pulse Oximetry [ Anterior Bilateral Throughout] O2 Sat by Pulse Oximetry [ Anterior Left] O2 Sat by Pulse Oximetry [ Anterior Right] 07/28/20 07/28/20 07/28/20 00:30 01:00 01:30 Temperature Pulse Rate 80 80 81 Respiratory 15 18 19 Rate Blood Pressure 133/64 141/73 157/85 O2 Sat by Pulse 95 97 97 Oximetry O2 Sat by Pulse Oximetry [ Anterior Bilateral Throughout] O2 Sat by Pulse Oximetry [ Anterior Left] O2 Sat by Pulse Oximetry [ Anterior Right] 07/28/20 07/28/20 07/28/20 02:00 02:30 03:00 Temperature Pulse Rate 81 80 77 Respiratory 20 18 19 Rate Blood Pressure 130/69 123/59 129/69 O2 Sat by Pulse 93 92 99 Oximetry O2 Sat by Pulse Oximetry [ Anterior Bilateral Throughout] O2 Sat by Pulse Oximetry [ Anterior Left] O2 Sat by Pulse Oximetry [ Anterior Right] 07/28/20 07/28/20 07/28/20 03:30 04:00 04:15 Temperature 98.0 F Pulse Rate 83 80 Respiratory 22 Rate Blood Pressure 129/69 129/79 O2 Sat by Pulse 95 100 Oximetry O2 Sat by Pulse Oximetry [ Anterior Bilateral Throughout] O2 Sat by Pulse Oximetry [ Anterior Left] O2 Sat by Pulse Oximetry [ Anterior Right] 07/28/20 07/28/20 07/28/20 04:30 05:00 05:23 Temperature Pulse Rate 77 85 73 Respiratory 19 23 Rate Blood Pressure 132/71 165/95 151/78 O2 Sat by Pulse 95 100 98 Oximetry O2 Sat by Pulse Oximetry [ Anterior Bilateral Throughout] O2 Sat by Pulse Oximetry [ Anterior Left] O2 Sat by Pulse Oximetry [ Anterior Right] 07/28/20 07/28/20 07/28/20 05:30 06:00 06:30 Temperature Pulse Rate 77 71 74 Respiratory 21 20 14 Rate Blood Pressure 151/78 137/76 126/66 O2 Sat by Pulse 97 96 96 Oximetry O2 Sat by Pulse Oximetry [ Anterior Bilateral Throughout] O2 Sat by Pulse Oximetry [ Anterior Left] O2 Sat by Pulse Oximetry [ Anterior Right] 07/28/20 07/28/20 07/28/20 06:46 07:00 07:16 Temperature Pulse Rate 76 77 73 Respiratory 19 19 18 Rate Blood Pressure 126/66 127/73 127/73 O2 Sat by Pulse 98 99 98 Oximetry O2 Sat by Pulse Oximetry [ Anterior Bilateral Throughout] O2 Sat by Pulse Oximetry [ Anterior Left] O2 Sat by Pulse Oximetry [ Anterior Right] 07/28/20 07/28/20 07/28/20 07:30 07:46 08:00 Temperature 97.8 F Pulse Rate 75 77 74 Respiratory 18 20 18 Rate Blood Pressure 146/74 146/74 145/74 O2 Sat by Pulse 96 98 96 Oximetry O2 Sat by Pulse Oximetry [ Anterior Bilateral Throughout] O2 Sat by Pulse Oximetry [ Anterior Left] O2 Sat by Pulse Oximetry [ Anterior Right] 07/28/20 07/28/20 07/28/20 08:16 08:30 08:33 Temperature Pulse Rate 77 74 71 Respiratory 19 20 Rate Blood Pressure 145/74 147/75 147/75 O2 Sat by Pulse 97 96 100 Oximetry O2 Sat by Pulse Oximetry [ Anterior Bilateral Throughout] O2 Sat by Pulse Oximetry [ Anterior Left] O2 Sat by Pulse Oximetry [ Anterior Right] 07/28/20 07/28/20 07/28/20 08:46 08:47 09:00 Temperature Pulse Rate 72 71 71 Respiratory 21 21 19 Rate Blood Pressure 147/75 147/75 148/75 O2 Sat by Pulse 98 98 95 Oximetry O2 Sat by Pulse Oximetry [ Anterior Bilateral Throughout] O2 Sat by Pulse Oximetry [ Anterior Left] O2 Sat by Pulse Oximetry [ Anterior Right] 07/28/20 07/28/20 07/28/20 09:16 09:30 09:45 Temperature Pulse Rate 73 73 75 Respiratory 19 19 20 Rate Blood Pressure 148/75 145/77 142/75 O2 Sat by Pulse 97 97 95 Oximetry O2 Sat by Pulse Oximetry [ Anterior Bilateral Throughout] O2 Sat by Pulse Oximetry [ Anterior Left] O2 Sat by Pulse Oximetry [ Anterior Right] 07/28/20 07/28/20 07/28/20 10:00 10:15 10:30 Temperature 97.8 F Pulse Rate 74 72 73 Respiratory 18 Rate Blood Pressure 142/75 149/73 150/76 O2 Sat by Pulse 96 Oximetry O2 Sat by Pulse 98 Oximetry [ Anterior Bilateral Throughout] O2 Sat by Pulse 98 Oximetry [ Anterior Left] O2 Sat by Pulse 98 Oximetry [ Anterior Right] 07/28/20 07/28/20 10:45 11:00 Temperature Pulse Rate 73 72 Respiratory Rate Blood Pressure 151/72 159/77 O2 Sat by Pulse Oximetry O2 Sat by Pulse Oximetry [ Anterior Bilateral Throughout] O2 Sat by Pulse Oximetry [ Anterior Left] O2 Sat by Pulse Oximetry [ Anterior Right] - General Appearance General appearance: sedated on ventilator, intubated EENT: ATNC Neck: no JVD Respiratory: Present: Decreased Breath Sounds Cardiology: regular, other (3+ pitting edema/anasarca) Gastrointestinal: normal Integumentary: ulcer Neurologic: other (Sedated and on ventilator) - Lab 07/28/20 04:00 07/27/20 06:36 Most recent lab results ABG pH 7.520 pH Units (7.350-7.450) H 07/27/20 05:20 ABG pCO2 33.5 mm Hg 07/27/20 05:20 ABG pO2 64.2 mm Hg (80.0-90.0) L 07/27/20 05:20 ABG HCO3 26.8 mmol/L (20.0-26.0) H 07/27/20 05:20 ABG O2 Saturation 95.8 % (95.0-99.0) 07/27/20 05:20 Calcium 8.2 mg/dL (8.4-10.2) L 07/27/20 06:36 Phosphorus 5.80 mg/dL (2.5-4.5) H 07/22/20 10:30 Magnesium 2.10 mg/dL (1.7-2.3) 07/22/20 10:30 - Allied health notes Allied health notes reviewed: nursing Medications & Allergies - Medications Allergies/Adverse Reactions: Allergies No Known Allergies Allergy (Verified 06/19/19 17:53) Home Medications: Home Medications Medication Instructions Recorded Confirmed Last Taken Type FLUoxetine [PROzac] 20 mg PO QDAY #14 capsule 06/23/19 06/21/20 Unknown Rx traZODone [Desyrel] 50 mg PO QHS #10 tablet 06/23/19 06/21/20 Unknown Rx Folic Acid 1 mg PO DAILY #30 tablet 06/25/19 06/21/20 Unknown Rx Nicotine [Habitrol] 14 mg TD DAILY #30 patch 06/25/19 06/21/20 Unknown Rx Thiamine [Vitamin B-1] 100 mg PO QDAY #30 tablet 06/25/19 06/21/20 Unknown Rx Aspirin EC [Halfprin EC] 81 mg PO QDAY #30 tablet. 07/26/19 06/21/20 Unknown Rx levETIRAcetam [Keppra TAB] 750 mg PO BID #60 tablet 07/26/19 06/21/20 Unknown Rx Furosemide [Lasix TAB] 40 mg PO QDAY #30 tablet 04/28/20 06/21/20 Unknown Rx Famotidine [Pepcid] 20 mg PO BID #60 tablet 07/05/20 Unknown Rx Insulin NPH, Human [NovoLIN N] 5 unit SUB-Q BIDDIAB 30 Days #10 ml 07/05/20 06/21/20 Unknown Rx amLODIPine 10 mg PO QDAY #30 tablet 07/05/20 Unknown Rx carvediloL [Coreg] 12.5 mg PO BID #60 tablet 07/05/20 Unknown Rx hydrALAZINE [Apresoline TAB] 50 mg PO Q8HR #30 tablet 07/06/20 Unknown Rx Active Medications: Generic Name Dose Route Start Last Admin Trade Name Freq PRN Reason Stop Dose Admin Lipase/Protease/Amylase 1 each 07/23/20 14:17 Lipase 10,500/Protease 25,000/Amylase 43,750 (Units) Dr Shell FEEDTUBE PRN PRN For Clogged Feeding Tube Aspirin 81 mg 07/19/20 10:00 07/27/20 09:17 Aspirin Ec 81 Mg Tab PO 81 mg QDAY JODIE Administration Atropine Sulfate 1 mg 07/23/20 09:03 07/23/20 22:15 Atropine 0.1% (1 Mg/10 Ml) Cardiac Syringe IV 1 mg PRN PRN Administration Bradycardia Dextrose 50 ml 07/23/20 03:28 07/23/20 06:00 Dextrose 50% In Water (25gm) 50 Ml Syringe IV 50 ml Q30MIN PRN Administration Hypoglycemia Protocol Famotidine 20 mg 07/18/20 22:00 07/27/20 09:17 Famotidine 20 Mg Tab PO 20 mg DAILY JODIE Administration Fluoxetine HCl 20 mg 07/19/20 10:00 07/27/20 09:18 Fluoxetine 20 Mg Cap PO 20 mg QDAY JODIE Administration Folic Acid 1 mg 07/19/20 10:00 07/27/20 09:17 Folic Acid 1 Mg Tab PO 1 mg DAILY JODIE Administration Hydralazine HCl 50 mg 07/18/20 14:00 07/28/20 06:00 Hydralazine 25 Mg Tab PO 50 mg Q8HR JODIE Administration Hydralazine HCl 20 mg 07/22/20 14:02 Hydralazine 20 Mg/1 Ml Inj IV Q4HR PRN Blood Pressure Hydrophilic Ointment 1 applic 07/22/20 10:02 Lip Therapy Vaseline TP Q2HR PRN Dry Lips Sodium Chloride 100 mls @ 999 mls/hr 07/23/20 11:13 Nacl 0.9% IV FRANCISCO PRN Hypotension Norepinephrine 4 mg in 250 mls @ 7.5 mls/hr 07/24/20 10:00 07/24/20 15:35 Levophed Drip 4 Mg/Ns 250 Ml IV 0 mcg/min TITR JODIE 0 mls/hr Titration Protocol 2 MCG/MIN Insulin Human Lispro 0 unit 07/26/20 10:00 07/28/20 05:59 Insulin Lispro 100 Unit/Ml SUB-Q 2 unit Q6HR JODIE Administration Protocol Levetiracetam 750 mg 07/18/20 22:00 07/28/20 09:43 Levetiracetam 500 Mg/5 Ml Oral Liqd PO 750 mg BID JODIE Administration Multi-Ingred Cream/Lotion/Oil/Oint 1 applic 07/22/20 10:02 Mineral Oil/Petrolatum, White Ophth Oint 3.5 Gm OU Q4HR PRN Dry Eye(s) Simple Syrup 15 ml 07/23/20 14:17 Simple Syrup 15 Ml FEEDTUBE PRN PRN Hypoglycemia Simple Syrup 30 ml 07/23/20 14:17 Simple Syrup 15 Ml FEEDTUBE PRN PRN Hypoglycemia Sodium Bicarbonate 325 mg 07/23/20 14:17 Sodium Bicarbonate 325 Mg Tab FEEDTUBE PRN PRN For Clogged Feeding Tube Thiamine HCl 100 mg 07/19/20 10:00 07/27/20 09:17 Thiamine 100 Mg Tab PO 100 mg QDAY JODIE Administration Trazodone HCl 50 mg 07/18/20 22:00 07/27/20 22:15 Trazodone 50 Mg Tab PO 50 mg QHS JODIE Administration
[2020-07-28] MEDS: THIAMINE 100 MG TAB PO SCH (14:43)
[2020-07-28] MEDS: FOLIC ACID 1 MG TAB PO SCH (14:43)
[2020-07-28] MEDS: FAMOTIDINE 20 MG TAB PO SCH (14:43)
[2020-07-28] MEDS: ASPIRIN EC 81 MG TAB PO SCH (14:44)
[2020-07-28] MEDS: FLUoxetine 20 MG CAP PO SCH (14:44)
[2020-07-28] MEDS ORDERED: SODIUM CHLORIDE 0.9% 500 ML 500 ML IV SCH (20:56)
[2020-07-28] MEDS: traZODone 50 MG TAB PO SCH (22:35)
--- NOTE | 2020-07-29 00:49 | Progress Note ---
Assessment and Plan Assessment and Plan Assessment and plan: --PUI/COVID-19 test negative/07/18/2020 --Acute on chronic kidney disease stage III; Vasomotor nephropathy, Nephrology initiated hemodialysis Management per nephrology, HD per schedule --Acute hypoxic respiratory failure: Intubated 07/22/2020 On mechanical ventilation Pulmonary critical following --Non-STEMI-2 : probably secondary to respiratory failure, chronic kidney disease Patient has risk factors, cardiology following, --Bradycardia; improved Heart rate in 60s today Hold beta-blockers,Atropine as needed --Hyperkalemia; resolved after hemodialysis HD per schedule, monitor electrolytes Nephrology following --hyponatremia; resolved Closely monitor electrolytes --Acute toxic metabolic encephalopathy; CT head without contrast, no acute abnormality --Severe protein calorie malnutrition/hypoalbuminemia, nutrition supplements, tube feeding, nutrition consult --Thrombocytopenia; HIT antibodies negative --Sepsis hypothermia; Warm blankets, treat the underlying sepsis IV antibiotics, follow cultures --h/o right calf abscess: --h/o MSSA sepsis: On Unasyn completed antibiotics on 07/24/2020 --Type 2 diabetes mellitus; Blood sugars in the lower range, avoid hypoglycemia Accu-Chek sliding scale coverage ADA diet Long-acting insulin as needed, check HbA1c 8.3 last month --Ac on institute director systolic CHF; EF 35 to 40%[04/2020] Continue antifailure medications Input output monitoring, diuretics Cardiology following --History of seizure disorder; Seizure precautions, continue Keppra --History of CVA; with residual weakness Fall precautions, PT OT as needed --DVT prophylaxis;thrombocytopenia, no anticoagulation Continue SCDs --Full CODE STATUS --Restraint for safety I called patient's niece Amee Corcoran #[phone] as well as patient's aunt Viridiana Ambrosio [phone] On 07/22/2020 and discussed in detail patient's critical condition respiratory failure requiring intubation change of status, Renal failure needing dialysis ,verbalized understanding The high probability of a clinically significant, sudden or life threatening deterioration of the [multi] system(s) required my full and direct attention, intervention and pers onal management. The aggregate critical care time was [32] minutes. This time is in addition to time spent performing reported procedures but includes the following: [x] Data Review and interpretation [x] Patient assessment and monitoring of vital signs [x] Documentation [x] Medication orders and management Subjective Date of service: 07/28/20 Principal diagnosis: RACQUEL Interval history: Brief history; 64-year-old male patient with significant past medical history of diabetes mellitus chronic kidney disease CVA with residual weakness was admitted through emergency room with altered level of consciousness and unresponsiveness Patient was initially evaluated and noted to be in sepsis secondary to MSSA bacteremia on long-term antibiotics Patient's renal function progressively deteriorated, initially patient refused the options of dialysis which air pollution inspector has discussed with him, and then suddenly patient went into respiratory arrest requiring intubation and mechanical ventilation, patient was transferred to ICU, family members were contacted, nephrology got consent from the family and hemodialysis was initiated, patient remains intubated on ventilatory support. Wean as tolerated and extubate. Hospital course; 07/19/2020; unable to pass Ayala catheter, Consulted urology, continue supportive care, COVID-19 test negative 07/20/2020; urology evaluation recommendation noted and appreciated Ayala catheter was inserted by urology, draining well MSSA bacteremia on long-term antibiotics 07/21/2020; patient is lethargic CT head without contrast, no acute abnormality Patient is afebrile 07/22/2020; patient had acute respiratory failure this morning CODE BLUE was called, patient was intubated on ventilatory support Pulmonary critical consulted, family patients aunt informed 07/23/2020; patient has severe bradycardia this morning, received atropine Cardiology following. Beta-blockers held, electrolytes corrected Patient's heart rate improved to 50s and 60s Cardiology following Nephrology planning hemodialysis trying to get consent from family 07/24/2020; patient received hemodialysis yesterday Remains intubated on ventilatory support Bradycardia significantly improved heart rate in 60s Completed 6 weeks of Unasyn for MSSA sepsis today 07/25/2020; patient remains on ventilatory support Receiving HD per schedule dual Wean as tolerated and extubate 07/26/2020; patient remains on ventilatory support, wean as tolerated and extubate Initiated hemodialysis, HD per schedule, new set of blood culture sent Objective - Constitutional Vitals: Vital Signs - 12hr 07/28/20 07/28/20 07/28/20 13:00 13:15 13:30 Temperature Pulse Rate 73 74 74 Respiratory 17 18 18 Rate Blood Pressure 156/80 164/81 157/77 O2 Sat by Pulse 95 94 96 Oximetry O2 Sat by Pulse Oximetry [ Anterior Right] 07/28/20 07/28/20 07/28/20 13:45 14:00 14:15 Temperature 97.8 F Pulse Rate 75 74 74 Respiratory 17 17 16 Rate Blood Pressure 154/78 158/75 156/78 O2 Sat by Pulse 94 95 95 Oximetry O2 Sat by Pulse 99 Oximetry [ Anterior Right] 07/28/20 07/28/20 07/28/20 14:30 14:43 14:46 Temperature Pulse Rate 77 73 72 Respiratory 18 19 Rate Blood Pressure 148/71 148/71 120/56 O2 Sat by Pulse 95 97 Oximetry O2 Sat by Pulse Oximetry [ Anterior Right] 07/28/20 07/28/20 07/28/20 15:00 15:15 15:30 Temperature Pulse Rate 70 72 69 Respiratory 20 19 19 Rate Blood Pressure 117/53 127/60 125/58 O2 Sat by Pulse 96 98 97 Oximetry O2 Sat by Pulse Oximetry [ Anterior Right] 07/28/20 07/28/20 07/28/20 15:45 16:00 16:15 Temperature 97.6 F Pulse Rate 68 69 68 Respiratory 19 20 19 Rate Blood Pressure 129/62 131/65 133/65 O2 Sat by Pulse 98 98 97 Oximetry O2 Sat by Pulse Oximetry [ Anterior Right] 07/28/20 07/28/20 07/28/20 16:30 16:45 16:58 Temperature Pulse Rate 69 68 Respiratory 19 Rate Blood Pressure 138/69 118/64 118/64 O2 Sat by Pulse 98 96 100 Oximetry O2 Sat by Pulse Oximetry [ Anterior Right] 07/28/20 07/28/20 07/28/20 17:00 19:35 20:00 Temperature 97.3 F L Pulse Rate 68 70 Respiratory 17 Rate Blood Pressure 122/66 129/74 O2 Sat by Pulse 96 100 Oximetry O2 Sat by Pulse Oximetry [ Anterior Right] 07/28/20 07/28/20 22:35 22:56 Temperature Pulse Rate 68 68 Respiratory Rate Blood Pressure 134/76 134/76 O2 Sat by Pulse 100 Oximetry O2 Sat by Pulse Oximetry [ Anterior Right] General appearance: Present: no acute distress, well-nourished - EENT Eyes: PERRL, EOM intact ENT: hearing intact, clear oral mucosa Ears: bilateral: normal - Neck Neck: supple, normal ROM - Respiratory Respiratory effort: normal Respiratory: bilateral: CTA - Breasts Breasts: normal - Cardiovascular Rhythm: regular Heart Sounds: Present: S1 & S2. Absent: gallop, rub Extremities: pulses intact, No edema, normal color, Full ROM - Gastrointestinal General gastrointestinal: Present: soft, non-tender, non-distended, normal bowel sounds - Genitourinary Male genitourinary: normal - Integumentary Integumentary: clear, warm, dry - Musculoskeletal Musculoskeletal: 1, strength equal bilaterally - Neurologic Neurologic: moves all extremities - Psychiatric Psychiatric: memory intact, appropriate mood/affect, intact judgment & insight - Labs CBC & Chem 7: 07/28/20 04:00 07/27/20 06:36 Labs: Abnormal lab results 07/28/20 07/28/20 07/28/20 Range/Units 04:00 05:14 10:15 RBC 2.13 L (3.65-5.03) M/mm3 Hgb 6.8 L (11.8-15.2) gm/dl Hct 19.9 L* (35.5-45.6) % RDW 18.4 H (13.2-15.2) % Plt Count 55 L (140-440) K/mm3 [place] % (Auto) 9.1 H (0.0-7.3) % [place] # (Auto) 0.9 H (0.0-0.8) K/mm3 Seg Neutrophils % 74.5 H (40.0-70.0) % POC Glucose 169 H (70-105) mg/dL Crossmatch See Detail 07/28/20 07/28/20 07/28/20 Range/Units 11:32 17:28 23:58 RBC (3.65-5.03) M/mm3 Hgb (11.8-15.2) gm/dl Hct (35.5-45.6) % RDW (13.2-15.2) % Plt Count (140-440) K/mm3 [place] % (Auto) (0.0-7.3) % [place] # (Auto) (0.0-0.8) K/mm3 Seg Neutrophils % (40.0-70.0) % POC Glucose 185 H 208 H 227 H (70-105) mg/dL Crossmatch HEART Score - HEART Score Troponin: Troponin T 0.047 ng/mL (0.00-0.029) H 07/22/20 10:30
[2020-07-29] MEDS: INSULIN LISPRO 100 UNIT/ML SUB-Q SCH ×4 (01:13→18:07)
[2020-07-29] MEDS: hydrALAZINE 25 MG TAB PO SCH ×3 (06:18→22:56)
[2020-07-29] MEDS: FAMOTIDINE 20 MG TAB PO SCH (09:09)
[2020-07-29] MEDS: ASPIRIN EC 81 MG TAB PO SCH (09:09)
[2020-07-29] MEDS: levETIRAcetam 500 MG/5 ML ORAL LIQD PO SCH ×2 (09:09→22:54)
[2020-07-29] MEDS: FOLIC ACID 1 MG TAB PO SCH (09:10)
[2020-07-29] MEDS: THIAMINE 100 MG TAB PO SCH (09:10)
[2020-07-29] MEDS: FLUoxetine 20 MG CAP PO SCH (09:10)
--- NOTE | 2020-07-29 09:39 | Progress Note ---
Assessment and Plan - Patient Problems (1) ESRD on hemodialysis Current Visit: Yes Status: Acute (2) Acute HFrEF (heart failure with reduced ejection fraction) Current Visit: Yes Status: Acute (3) Acute metabolic encephalopathy Current Visit: Yes Status: Acute (4) Acute on chronic renal failure Current Visit: Yes Status: Acute Qualifiers: Acute renal failure type: unspecified Chronic kidney disease stage: stage 3 (moderate) Chronic kidney disease stage 3 subtype: stage 3a (GFR 45-59) Qualified Code(s): N17.9 - Acute kidney failure, unspecified; N18.31 - Chronic kidney disease, stage 3a (5) Acute respiratory failure Current Visit: Yes Status: Acute Qualifiers: Respiratory failure complication: hypoxia Qualified Code(s): J96.01 - Acute respiratory failure with hypoxia (6) Anasarca Current Visit: Yes Status: Acute (7) Cellulitis of right lower extremity Current Visit: Yes Status: Acute (8) Diabetes Current Visit: Yes Status: Chronic (9) Hepatitis C Current Visit: Yes Status: Chronic (10) History of ETOH abuse Current Visit: Yes Status: Chronic (11) History of cocaine use Current Visit: Yes Status: Chronic (12) CVA (cerebral vascular accident) Current Visit: No Status: Acute Qualifiers: Precerebral and cerebral artery: middle cerebral artery Laterality of affected vessel: left (13) Cellulitis of right leg Current Visit: No Status: Acute Subjective Principal diagnosis: RACQUEL Interval history: sp hd yesterday neuro status unchanged on cmv 25%, f12, p6 tv450 mv 9.1 Objective Vital Signs - 12hr 07/28/20 07/28/20 07/28/20 21:46 22:00 22:16 Temperature Pulse Rate 73 68 71 Respiratory 20 19 20 Rate Blood Pressure 130/80 129/73 129/73 O2 Sat by Pulse 100 99 100 Oximetry 07/28/20 07/28/20 07/28/20 22:30 22:35 22:46 Temperature Pulse Rate 68 68 69 Respiratory 19 22 Rate Blood Pressure 134/76 134/76 134/76 O2 Sat by Pulse 98 100 Oximetry 07/28/20 07/28/20 07/28/20 22:56 23:00 23:16 Temperature Pulse Rate 68 67 67 Respiratory 17 17 Rate Blood Pressure 134/76 110/64 110/64 O2 Sat by Pulse 100 97 100 Oximetry 0307/28/20 07/29/20 23:30 23:46 00:00 Temperature 97.2 F L Pulse Rate 69 67 68 Respiratory 18 18 19 Rate Blood Pressure 110/64 120/69 128/73 O2 Sat by Pulse 100 99 97 Oximetry 07/29/20 07/29/20 07/29/20 00:16 00:30 00:46 Temperature Pulse Rate 68 68 67 Respiratory 18 17 18 Rate Blood Pressure 128/73 127/71 127/71 O2 Sat by Pulse 99 96 100 Oximetry 07/29/20 07/29/20 07/29/20 01:00 01:13 01:16 Temperature 97.4 F L Pulse Rate 67 67 67 Respiratory 18 17 17 Rate Blood Pressure 128/71 126/73 126/73 O2 Sat by Pulse 96 99 100 Oximetry 07/29/20 07/29/20 07/29/20 01:30 01:46 02:00 Temperature 97.5 F L 97.5 F L Pulse Rate 68 68 66 Respiratory 18 17 17 Rate Blood Pressure 128/72 128/72 130/71 O2 Sat by Pulse 98 100 97 Oximetry 07/29/20 07/29/20 07/29/20 02:16 02:30 02:37 Temperature 97.3 F L 97.4 F L Pulse Rate 67 67 66 Respiratory 17 18 18 Rate Blood Pressure 130/71 132/74 128/76 O2 Sat by Pulse 99 97 100 Oximetry 07/29/20 07/29/20 07/29/20 02:46 03:00 03:16 Temperature 97.4 F L Pulse Rate 67 66 66 Respiratory 16 18 17 Rate Blood Pressure 132/74 128/76 128/76 O2 Sat by Pulse 99 97 99 Oximetry 07/29/20 07/29/20 07/29/20 03:30 03:46 04:00 Temperature 97.3 F L 97.2 F L Pulse Rate 66 69 67 Respiratory 17 19 14 Rate Blood Pressure 131/74 131/74 138/78 O2 Sat by Pulse 97 100 96 Oximetry 07/29/20 07/29/20 07/29/20 04:15 04:16 04:30 Temperature 973 F H Pulse Rate 67 67 Respiratory 18 18 19 Rate Blood Pressure 138/78 126/73 O2 Sat by Pulse 100 99 96 Oximetry 07/29/20 07/29/20 07/29/20 04:46 05:00 05:16 Temperature Pulse Rate 68 68 66 Respiratory 18 18 17 Rate Blood Pressure 126/73 134/77 134/77 O2 Sat by Pulse 99 96 99 Oximetry 07/29/20 07/29/20 07/29/20 05:30 05:46 06:00 Temperature Pulse Rate 67 66 66 Respiratory 18 18 18 Rate Blood Pressure 132/74 132/74 131/76 O2 Sat by Pulse 96 100 96 Oximetry 07/29/20 07/29/20 07/29/20 06:16 06:18 06:30 Temperature Pulse Rate 66 65 66 Respiratory 19 19 Rate Blood Pressure 132/74 131/76 133/78 O2 Sat by Pulse 100 94 Oximetry 07/29/20 07/29/20 07/29/20 06:46 07:00 07:16 Temperature Pulse Rate 66 68 67 Respiratory 17 18 18 Rate Blood Pressure 131/76 127/72 127/72 O2 Sat by Pulse 98 93 98 Oximetry 07/29/20 07/29/20 07/29/20 07:30 07:46 08:00 Temperature 97.2 F L Pulse Rate 68 67 68 Respiratory 19 17 18 Rate Blood Pressure 125/74 125/74 122/72 O2 Sat by Pulse 94 98 95 Oximetry 07/29/20 07/29/20 07/29/20 08:16 08:30 08:46 Temperature Pulse Rate 68 68 67 Respiratory 18 18 17 Rate Blood Pressure 122/72 125/73 125/73 O2 Sat by Pulse 97 94 97 Oximetry 07/29/20 09:00 Temperature Pulse Rate 69 Respiratory 18 Rate Blood Pressure 127/72 O2 Sat by Pulse 93 Oximetry Constitutional: appears uncomfortable (cpap, orally intubated), other (on vent orally intubated) Eyes: non-icteric ENT: epistaxis Neck: other (large in circumference) Effort: mildly labored Ascultation: Bilateral: diminished breath sounds Neurologic: non-focal exam, unable to assess CBC and BMP: 07/28/20 04:00 07/27/20 06:36 ABG, PT/INR, D-dimer: ABG ABG pH 7.520 pH Units (7.350-7.450) H 07/27/20 05:20 POC ABG pCO2 32.7 mmHg (32.0-48.0) 07/25/20 03:57 ABG pCO2 33.5 mm Hg 07/27/20 05:20 POC ABG pO2 62.7 mmHg (83-108) L 07/25/20 03:57 ABG pO2 64.2 mm Hg (80.0-90.0) L 07/27/20 05:20 POC ABG HCO3 24.8 07/25/20 03:57 ABG O2 Saturation 95.8 % (95.0-99.0) 07/27/20 05:20 PT/INR, D-dimer PT 15.9 Sec. (12.2-14.9) H 07/22/20 10:30 INR 1.27 (0.87-1.13) H 07/22/20 10:30 D-Dimer 1036.46 ng/mlDDU (0-234) H 07/18/20 08:56 Abnormal lab findings: Abnormal Labs 07/18/20 07/18/20 07/18/20 08:56 08:56 08:56 WBC 3.5 L RBC 2.51 L Hgb 8.0 L Hct 24.5 L MCV 98 H RDW 18.3 H Plt Count 58 L Lymph % (Auto) [place] % (Auto) 11.1 H Lymph # (Auto) [place] # (Auto) Seg Neutrophils % Seg Neuts % (Manual) Lymphocytes % (Manual) Nucleated RBC % Seg Neutrophils # Man Lymphocytes # (Manual) PT INR 1.18 H APTT D-Dimer ABG pH POC ABG pCO2 POC ABG pO2 ABG pO2 ABG HCO3 ABG Base Excess ABG Hemoglobin ABG Oxyhemoglobin ABG Potassium ABG Chloride ABG Glucose Oxyhemoglobin Carboxyhemoglobin Sodium 146 H Potassium 5.2 H Chloride 117.3 H Carbon Dioxide 21 L BUN 52 H Creatinine 3.1 H Glucose 118 H POC Glucose Calcium 8.1 L Phosphorus AST ALT Alkaline Phosphatase Lactate Dehydrogenase CK-MB (CK-2) CK-MB (CK-2) Rel Index Troponin T 0.057 H C-Reactive Protein NT-Pro-B Natriuret Pep Albumin HDL Cholesterol 67 H TSH Arterial Blood Glucose Arterial Blood Ionized Calcium Hepatitis C Antibody Crossmatch 07/18/20 07/18/20 07/18/20 08:56 08:56 08:56 WBC RBC Hgb Hct MCV RDW Plt Count Lymph % (Auto) [place] % (Auto) Lymph # (Auto) [place] # (Auto) Seg Neutrophils % Seg Neuts % (Manual) Lymphocytes % (Manual) Nucleated RBC % Seg Neutrophils # Man Lymphocytes # (Manual) PT INR APTT D-Dimer 1036.46 H ABG pH POC ABG pCO2 POC ABG pO2 ABG pO2 ABG HCO3 ABG Base Excess ABG Hemoglobin ABG Oxyhemoglobin ABG Potassium ABG Chloride ABG Glucose Oxyhemoglobin Carboxyhemoglobin Sodium Potassium Chloride Carbon Dioxide BUN Creatinine Glucose POC Glucose Calcium Phosphorus AST ALT Alkaline Phosphatase Lactate Dehydrogenase CK-MB (CK-2) CK-MB (CK-2) Rel Index Troponin T C-Reactive Protein NT-Pro-B Natriuret Pep 4777 H Albumin HDL Cholesterol TSH 5.520 H Arterial Blood Glucose Arterial Blood Ionized Calcium Hepatitis C Antibody Crossmatch 07/18/20 07/18/20 07/18/20 10:36 18:56 19:00 WBC RBC Hgb Hct MCV RDW Plt Count Lymph % (Auto) [place] % (Auto) Lymph # (Auto) [place] # (Auto) Seg Neutrophils % Seg Neuts % (Manual) Lymphocytes % (Manual) Nucleated RBC % Seg Neutrophils # Man Lymphocytes # (Manual) PT INR APTT D-Dimer ABG pH POC ABG pCO2 POC ABG pO2 ABG pO2 ABG HCO3 ABG Base Excess ABG Hemoglobin ABG Oxyhemoglobin ABG Potassium ABG Chloride ABG Glucose Oxyhemoglobin Carboxyhemoglobin Sodium Potassium Chloride Carbon Dioxide BUN Creatinine Glucose 101 H POC Glucose 66 L 63 L Calcium Phosphorus AST ALT Alkaline Phosphatase Lactate Dehydrogenase 212 H CK-MB (CK-2) CK-MB (CK-2) Rel Index Troponin T C-Reactive Protein 2.10 H NT-Pro-B Natriuret Pep Albumin HDL Cholesterol TSH Arterial Blood Glucose Arterial Blood Ionized Calcium Hepatitis C Antibody Crossmatch 07/19/20 07/19/20 07/19/20 06:00 06:00 16:26 WBC 3.9 L RBC 2.34 L Hgb 7.5 L Hct 23.1 L MCV 99 H RDW 18.6 H Plt Count 52 L Lymph % (Auto) [place] % (Auto) 9.4 H Lymph # (Auto) 1.0 L [place] # (Auto) Seg Neutrophils % Seg Neuts % (Manual) Lymphocytes % (Manual) Nucleated RBC % Seg Neutrophils # Man Lymphocytes # (Manual) PT INR APTT D-Dimer ABG pH POC ABG pCO2 POC ABG pO2 ABG pO2 ABG HCO3 ABG Base Excess ABG Hemoglobin ABG Oxyhemoglobin ABG Potassium ABG Chloride ABG Glucose Oxyhemoglobin Carboxyhemoglobin Sodium Potassium 5.3 H Chloride 115.8 H Carbon Dioxide BUN 52 H Creatinine 3.4 H Glucose 114 H POC Glucose 123 H Calcium 7.7 L Phosphorus AST 77 H ALT < 5 L Alkaline Phosphatase 678 H Lactate Dehydrogenase CK-MB (CK-2) CK-MB (CK-2) Rel Index Troponin T C-Reactive Protein NT-Pro-B Natriuret Pep Albumin 2.2 L HDL Cholesterol TSH Arterial Blood Glucose Arterial Blood Ionized Calcium Hepatitis C Antibody Crossmatch 07/19/20 07/20/20 07/20/20 21:20 08:25 08:25 WBC 3.6 L RBC 2.54 L Hgb 8.0 L Hct 24.6 L MCV 97 H RDW 18.0 H Plt Count 47 L Lymph % (Auto) [place] % (Auto) 9.8 H Lymph # (Auto) 0.9 L [place] # (Auto) Seg Neutrophils % Seg Neuts % (Manual) Lymphocytes % (Manual) Nucleated RBC % Seg Neutrophils # Man Lymphocytes # (Manual) PT INR APTT D-Dimer ABG pH POC ABG pCO2 POC ABG pO2 ABG pO2 ABG HCO3 ABG Base Excess ABG Hemoglobin ABG Oxyhemoglobin ABG Potassium ABG Chloride ABG Glucose Oxyhemoglobin Carboxyhemoglobin Sodium Potassium 5.4 H Chloride 115.8 H Carbon Dioxide BUN 56 H Creatinine 3.8 H Glucose 110 H POC Glucose 142 H Calcium 7.9 L Phosphorus AST ALT Alkaline Phosphatase Lactate Dehydrogenase CK-MB (CK-2) CK-MB (CK-2) Rel Index Troponin T C-Reactive Protein NT-Pro-B Natriuret Pep Albumin HDL Cholesterol TSH Arterial Blood Glucose Arterial Blood Ionized Calcium Hepatitis C Antibody Crossmatch 07/20/20 07/20/20 07/20/20 11:27 16:34 21:27 WBC RBC Hgb Hct MCV RDW Plt Count Lymph % (Auto) [place] % (Auto) Lymph # (Auto) [place] # (Auto) Seg Neutrophils % Seg Neuts % (Manual) Lymphocytes % (Manual) Nucleated RBC % Seg Neutrophils # Man Lymphocytes # (Manual) PT INR APTT D-Dimer ABG pH POC ABG pCO2 POC ABG pO2 ABG pO2 ABG HCO3 ABG Base Excess ABG Hemoglobin ABG Oxyhemoglobin ABG Potassium ABG Chloride ABG Glucose Oxyhemoglobin Carboxyhemoglobin Sodium Potassium Chloride Carbon Dioxide BUN Creatinine Glucose POC Glucose 136 H 186 H 175 H Calcium Phosphorus AST ALT Alkaline Phosphatase Lactate Dehydrogenase CK-MB (CK-2) CK-MB (CK-2) Rel Index Troponin T C-Reactive Protein NT-Pro-B Natriuret Pep Albumin HDL Cholesterol TSH Arterial Blood Glucose Arterial Blood Ionized Calcium Hepatitis C Antibody Crossmatch 07/21/20 07/22/20 07/22/20 10:31 07:25 10:30 WBC 3.8 L RBC 2.53 L Hgb 7.9 L Hct 24.7 L MCV 98 H RDW 18.7 H Plt Count 35 L Lymph % (Auto) [place] % (Auto) Lymph # (Auto) [place] # (Auto) Seg Neutrophils % Seg Neuts % (Manual) 92.0 H Lymphocytes % (Manual) 6.0 L Nucleated RBC % 13.0 H Seg Neutrophils # Man Lymphocytes # (Manual) 0.2 L PT INR APTT D-Dimer ABG pH POC ABG pCO2 POC ABG pO2 ABG pO2 ABG HCO3 ABG Base Excess ABG Hemoglobin ABG Oxyhemoglobin ABG Potassium ABG Chloride ABG Glucose Oxyhemoglobin Carboxyhemoglobin Sodium Potassium 5.3 H 5.6 H Chloride 115.0 H 115.1 H Carbon Dioxide 18 L BUN 59 H 61 H Creatinine 4.3 H 4.6 H Glucose 109 H POC Glucose Calcium 7.6 L 7.6 L Phosphorus AST ALT Alkaline Phosphatase Lactate Dehydrogenase CK-MB (CK-2) CK-MB (CK-2) Rel Index Troponin T C-Reactive Protein NT-Pro-B Natriuret Pep Albumin HDL Cholesterol TSH Arterial Blood Glucose Arterial Blood Ionized Calcium Hepatitis C Antibody Crossmatch 07/22/20 07/22/20 07/22/20 10:30 10:30 10:30 WBC RBC Hgb Hct MCV RDW Plt Count Lymph % (Auto) [place] % (Auto) Lymph # (Auto) [place] # (Auto) Seg Neutrophils % Seg Neuts % (Manual) Lymphocytes % (Manual) Nucleated RBC % Seg Neutrophils # Man Lymphocytes # (Manual) PT 15.9 H INR 1.27 H APTT 38.3 H D-Dimer ABG pH POC ABG pCO2 POC ABG pO2 ABG pO2 ABG HCO3 ABG Base Excess ABG Hemoglobin ABG Oxyhemoglobin ABG Potassium ABG Chloride ABG Glucose Oxyhemoglobin Carboxyhemoglobin Sodium 146 H Potassium 5.4 H Chloride 116.4 H Carbon Dioxide BUN 61 H Creatinine 4.6 H Glucose 115 H POC Glucose Calcium 7.5 L Phosphorus 5.80 H AST 66 H ALT < 5 L Alkaline Phosphatase 604 H Lactate Dehydrogenase CK-MB (CK-2) 10.9 H CK-MB (CK-2) Rel Index 16.2 H Troponin T 0.047 H C-Reactive Protein NT-Pro-B Natriuret Pep Albumin 2.1 L HDL Cholesterol TSH Arterial Blood Glucose Arterial Blood Ionized Calcium Hepatitis C Antibody Crossmatch 07/22/20 07/23/20 07/23/20 11:10 03:38 03:47 WBC RBC Hgb Hct MCV RDW Plt Count Lymph % (Auto) [place] % (Auto) Lymph # (Auto) [place] # (Auto) Seg Neutrophils % Seg Neuts % (Manual) Lymphocytes % (Manual) Nucleated RBC % Seg Neutrophils # Man Lymphocytes # (Manual) PT INR APTT D-Dimer ABG pH 7.203 L POC ABG pCO2 48.7 H 29.7 L POC ABG pO2 80.6 L 267.3 H ABG pO2 ABG HCO3 ABG Base Excess ABG Hemoglobin 8.6 L 8.2 L ABG Oxyhemoglobin 91.1 L 98.2 H ABG Potassium 5.4 H 5.4 H ABG Chloride 122.0 H 122.0 H ABG Glucose 105 H 101 H Oxyhemoglobin Carboxyhemoglobin 2.0 H Sodium Potassium Chloride Carbon Dioxide BUN Creatinine Glucose POC Glucose 65 L Calcium Phosphorus AST ALT Alkaline Phosphatase Lactate Dehydrogenase CK-MB (CK-2) CK-MB (CK-2) Rel Index Troponin T C-Reactive Protein NT-Pro-B Natriuret Pep Albumin HDL Cholesterol TSH Arterial Blood Glucose 105 H 101 H Arterial Blood Ionized Calcium 4.5 L 4.4 L Hepatitis C Antibody Crossmatch 07/23/20 07/23/20 07/23/20 06:05 06:05 06:27 WBC RBC 2.36 L Hgb 7.5 L Hct 22.7 L MCV 96 H RDW 18.9 H Plt Count 42 L Lymph % (Auto) [place] % (Auto) Lymph # (Auto) [place] # (Auto) Seg Neutrophils % Seg Neuts % (Manual) Lymphocytes % (Manual) Nucleated RBC % Seg Neutrophils # Man Lymphocytes # (Manual) PT INR APTT D-Dimer ABG pH POC ABG pCO2 POC ABG pO2 ABG pO2 ABG HCO3 ABG Base Excess ABG Hemoglobin ABG Oxyhemoglobin ABG Potassium ABG Chloride ABG Glucose Oxyhemoglobin Carboxyhemoglobin Sodium Potassium 5.6 H Chloride 114.1 H Carbon Dioxide 17 L BUN 62 H Creatinine 5.1 H Glucose 215 H POC Glucose 114 H Calcium 7.3 L Phosphorus AST ALT Alkaline Phosphatase Lactate Dehydrogenase CK-MB (CK-2) CK-MB (CK-2) Rel Index Troponin T C-Reactive Protein NT-Pro-B Natriuret Pep Albumin HDL Cholesterol TSH Arterial Blood Glucose Arterial Blood Ionized Calcium Hepatitis C Antibody Crossmatch 07/23/20 07/23/20 07/24/20 11:36 19:20 04:00 WBC RBC Hgb Hct MCV RDW Plt Count Lymph % (Auto) [place] % (Auto) Lymph # (Auto) [place] # (Auto) Seg Neutrophils % Seg Neuts % (Manual) Lymphocytes % (Manual) Nucleated RBC % Seg Neutrophils # Man Lymphocytes # (Manual) PT INR APTT D-Dimer ABG pH POC ABG pCO2 POC ABG pO2 ABG pO2 ABG HCO3 ABG Base Excess ABG Hemoglobin ABG Oxyhemoglobin ABG Potassium ABG Chloride ABG Glucose Oxyhemoglobin Carboxyhemoglobin Sodium Potassium Chloride 110.8 H Carbon Dioxide BUN 47 H Creatinine 4.4 H Glucose POC Glucose 66 L Calcium 7.3 L Phosphorus AST ALT Alkaline Phosphatase Lactate Dehydrogenase CK-MB (CK-2) CK-MB (CK-2) Rel Index Troponin T C-Reactive Protein NT-Pro-B Natriuret Pep Albumin HDL Cholesterol TSH Arterial Blood Glucose Arterial Blood Ionized Calcium Hepatitis C Antibody Reactive A Crossmatch 07/24/20 07/24/20 07/24/20 04:25 11:37 Unknown WBC RBC 2.36 L Hgb 7.5 L Hct 22.5 L MCV 95 H RDW 18.4 H Plt Count 38 L Lymph % (Auto) [place] % (Auto) Lymph # (Auto) [place] # (Auto) Seg Neutrophils % Seg Neuts % (Manual) Lymphocytes % (Manual) Nucleated RBC % Seg Neutrophils # Man Lymphocytes # (Manual) PT INR APTT D-Dimer ABG pH POC ABG pCO2 POC ABG pO2 64.8 L ABG pO2 ABG HCO3 ABG Base Excess ABG Hemoglobin 7.9 L ABG Oxyhemoglobin ABG Potassium ABG Chloride 114.0 H ABG Glucose Oxyhemoglobin Carboxyhemoglobin Sodium Potassium Chloride Carbon Dioxide BUN Creatinine Glucose POC Glucose 109 H Calcium Phosphorus AST ALT Alkaline Phosphatase Lactate Dehydrogenase CK-MB (CK-2) CK-MB (CK-2) Rel Index Troponin T C-Reactive Protein NT-Pro-B Natriuret Pep Albumin HDL Cholesterol TSH Arterial Blood Glucose Arterial Blood Ionized Calcium 4.2 L Hepatitis C Antibody Crossmatch 07/25/20 07/25/20 07/25/20 00:12 03:57 04:00 WBC RBC Hgb Hct MCV RDW Plt Count Lymph % (Auto) [place] % (Auto) Lymph # (Auto) [place] # (Auto) Seg Neutrophils % Seg Neuts % (Manual) Lymphocytes % (Manual) Nucleated RBC % Seg Neutrophils # Man Lymphocytes # (Manual) PT INR APTT D-Dimer ABG pH 7.497 H POC ABG pCO2 POC ABG pO2 62.7 L ABG pO2 ABG HCO3 ABG Base Excess ABG Hemoglobin 8.5 L ABG Oxyhemoglobin 90.1 L ABG Potassium ABG Chloride 110.0 H ABG Glucose 157 H Oxyhemoglobin Carboxyhemoglobin Sodium Potassium Chloride Carbon Dioxide BUN 38 H Creatinine 4.1 H Glucose 160 H POC Glucose 140 H Calcium 7.9 L Phosphorus AST ALT Alkaline Phosphatase Lactate Dehydrogenase CK-MB (CK-2) CK-MB (CK-2) Rel Index Troponin T C-Reactive Protein NT-Pro-B Natriuret Pep Albumin HDL Cholesterol TSH Arterial Blood Glucose 157 H Arterial Blood Ionized Calcium 4.3 L Hepatitis C Antibody Crossmatch 07/25/20 07/25/20 07/25/20 04:00 06:24 12:11 WBC RBC 2.48 L Hgb 7.7 L Hct 23.2 L MCV RDW 18.4 H Plt Count 44 L Lymph % (Auto) [place] % (Auto) 8.5 H Lymph # (Auto) [place] # (Auto) Seg Neutrophils % 76.7 H Seg Neuts % (Manual) Lymphocytes % (Manual) Nucleated RBC % Seg Neutrophils # Man Lymphocytes # (Manual) PT INR APTT D-Dimer ABG pH POC ABG pCO2 POC ABG pO2 ABG pO2 ABG HCO3 ABG Base Excess ABG Hemoglobin ABG Oxyhemoglobin ABG Potassium ABG Chloride ABG Glucose Oxyhemoglobin Carboxyhemoglobin Sodium Potassium Chloride Carbon Dioxide BUN Creatinine Glucose POC Glucose 155 H 205 H Calcium Phosphorus AST ALT Alkaline Phosphatase Lactate Dehydrogenase CK-MB (CK-2) CK-MB (CK-2) Rel Index Troponin T C-Reactive Protein NT-Pro-B Natriuret Pep Albumin HDL Cholesterol TSH Arterial Blood Glucose Arterial Blood Ionized Calcium Hepatitis C Antibody Crossmatch 07/25/20 07/26/20 07/26/20 17:41 00:18 03:54 WBC RBC Hgb Hct MCV RDW Plt Count Lymph % (Auto) [place] % (Auto) Lymph # (Auto) [place] # (Auto) Seg Neutrophils % Seg Neuts % (Manual) Lymphocytes % (Manual) Nucleated RBC % Seg Neutrophils # Man Lymphocytes # (Manual) PT INR APTT D-Dimer ABG pH 7.512 H POC ABG pCO2 POC ABG pO2 ABG pO2 121.2 H ABG HCO3 27.1 H ABG Base Excess 3.6 H ABG Hemoglobin < 5.1 L ABG Oxyhemoglobin ABG Potassium ABG Chloride ABG Glucose Oxyhemoglobin Carboxyhemoglobin Sodium Potassium Chloride Carbon Dioxide BUN Creatinine Glucose POC Glucose 227 H 198 H Calcium Phosphorus AST ALT Alkaline Phosphatase Lactate Dehydrogenase CK-MB (CK-2) CK-MB (CK-2) Rel Index Troponin T C-Reactive Protein NT-Pro-B Natriuret Pep Albumin HDL Cholesterol TSH Arterial Blood Glucose Arterial Blood Ionized Calcium Hepatitis C Antibody Crossmatch 07/26/20 07/26/20 07/26/20 06:31 07:00 12:09 WBC RBC 2.33 L Hgb 7.4 L Hct 21.6 L MCV RDW 18.0 H Plt Count 50 L Lymph % (Auto) 13.0 L [place] % (Auto) Lymph # (Auto) [place] # (Auto) Seg Neutrophils % 79.8 H Seg Neuts % (Manual) Lymphocytes % (Manual) Nucleated RBC % Seg Neutrophils # Man Lymphocytes # (Manual) PT INR APTT D-Dimer ABG pH POC ABG pCO2 POC ABG pO2 ABG pO2 ABG HCO3 ABG Base Excess ABG Hemoglobin ABG Oxyhemoglobin ABG Potassium ABG Chloride ABG Glucose Oxyhemoglobin Carboxyhemoglobin Sodium Potassium Chloride Carbon Dioxide BUN Creatinine Glucose POC Glucose 223 H 250 H Calcium Phosphorus AST ALT Alkaline Phosphatase Lactate Dehydrogenase CK-MB (CK-2) CK-MB (CK-2) Rel Index Troponin T C-Reactive Protein NT-Pro-B Natriuret Pep Albumin HDL Cholesterol TSH Arterial Blood Glucose Arterial Blood Ionized Calcium Hepatitis C Antibody Crossmatch 07/26/20 07/26/20 07/27/20 17:40 23:26 05:20 WBC RBC Hgb Hct MCV RDW Plt Count Lymph % (Auto) [place] % (Auto) Lymph # (Auto) [place] # (Auto) Seg Neutrophils % Seg Neuts % (Manual) Lymphocytes % (Manual) Nucleated RBC % Seg Neutrophils # Man Lymphocytes # (Manual) PT INR APTT D-Dimer ABG pH 7.520 H POC ABG pCO2 POC ABG pO2 ABG pO2 64.2 L ABG HCO3 26.8 H ABG Base Excess 3.7 H ABG Hemoglobin 7.2 L ABG Oxyhemoglobin ABG Potassium ABG Chloride ABG Glucose Oxyhemoglobin 93.2 L Carboxyhemoglobin Sodium Potassium Chloride Carbon Dioxide BUN Creatinine Glucose POC Glucose 226 H 176 H Calcium Phosphorus AST ALT Alkaline Phosphatase Lactate Dehydrogenase CK-MB (CK-2) CK-MB (CK-2) Rel Index Troponin T C-Reactive Protein NT-Pro-B Natriuret Pep Albumin HDL Cholesterol TSH Arterial Blood Glucose Arterial Blood Ionized Calcium Hepatitis C Antibody Crossmatch 07/27/20 07/27/20 07/27/20 05:42 06:36 06:36 WBC RBC 2.23 L Hgb 7.0 L Hct 20.7 L MCV RDW 18.4 H Plt Count 56 L Lymph % (Auto) [place] % (Auto) Lymph # (Auto) [place] # (Auto) Seg Neutrophils % Seg Neuts % (Manual) 88.0 H Lymphocytes % (Manual) 11.0 L Nucleated RBC % 2.0 H Seg Neutrophils # Man 8.9 H Lymphocytes # (Manual) 1.1 L PT INR APTT D-Dimer ABG pH POC ABG pCO2 POC ABG pO2 ABG pO2 ABG HCO3 ABG Base Excess ABG Hemoglobin ABG Oxyhemoglobin ABG Potassium ABG Chloride ABG Glucose Oxyhemoglobin Carboxyhemoglobin Sodium Potassium Chloride Carbon Dioxide BUN 43 H Creatinine 4.4 H Glucose 162 H POC Glucose 142 H Calcium 8.2 L Phosphorus AST ALT Alkaline Phosphatase Lactate Dehydrogenase CK-MB (CK-2) CK-MB (CK-2) Rel Index Troponin T C-Reactive Protein NT-Pro-B Natriuret Pep Albumin HDL Cholesterol TSH Arterial Blood Glucose Arterial Blood Ionized Calcium Hepatitis C Antibody Crossmatch 07/27/20 07/27/20 07/27/20 11:42 17:37 23:15 WBC RBC Hgb Hct MCV RDW Plt Count Lymph % (Auto) [place] % (Auto) Lymph # (Auto) [place] # (Auto) Seg Neutrophils % Seg Neuts % (Manual) Lymphocytes % (Manual) Nucleated RBC % Seg Neutrophils # Man Lymphocytes # (Manual) PT INR APTT D-Dimer ABG pH POC ABG pCO2 POC ABG pO2 ABG pO2 ABG HCO3 ABG Base Excess ABG Hemoglobin ABG Oxyhemoglobin ABG Potassium ABG Chloride ABG Glucose Oxyhemoglobin Carboxyhemoglobin Sodium Potassium Chloride Carbon Dioxide BUN Creatinine Glucose POC Glucose 134 H 169 H 173 H Calcium Phosphorus AST ALT Alkaline Phosphatase Lactate Dehydrogenase CK-MB (CK-2) CK-MB (CK-2) Rel Index Troponin T C-Reactive Protein NT-Pro-B Natriuret Pep Albumin HDL Cholesterol TSH Arterial Blood Glucose Arterial Blood Ionized Calcium Hepatitis C Antibody Crossmatch 07/28/20 07/28/20 07/28/20 04:00 05:14 10:15 WBC RBC 2.13 L Hgb 6.8 L Hct 19.9 L* MCV RDW 18.4 H Plt Count 55 L Lymph % (Auto) [place] % (Auto) 9.1 H Lymph # (Auto) [place] # (Auto) 0.9 H Seg Neutrophils % 74.5 H Seg Neuts % (Manual) Lymphocytes % (Manual) Nucleated RBC % Seg Neutrophils # Man Lymphocytes # (Manual) PT INR APTT D-Dimer ABG pH POC ABG pCO2 POC ABG pO2 ABG pO2 ABG HCO3 ABG Base Excess ABG Hemoglobin ABG Oxyhemoglobin ABG Potassium ABG Chloride ABG Glucose Oxyhemoglobin Carboxyhemoglobin Sodium Potassium Chloride Carbon Dioxide BUN Creatinine Glucose POC Glucose 169 H Calcium Phosphorus AST ALT Alkaline Phosphatase Lactate Dehydrogenase CK-MB (CK-2) CK-MB (CK-2) Rel Index Troponin T C-Reactive Protein NT-Pro-B Natriuret Pep Albumin HDL Cholesterol TSH Arterial Blood Glucose Arterial Blood Ionized Calcium Hepatitis C Antibody Crossmatch See Detail 07/28/20 07/28/20 07/28/20 11:32 17:28 23:58 WBC RBC Hgb Hct MCV RDW Plt Count Lymph % (Auto) [place] % (Auto) Lymph # (Auto) [place] # (Auto) Seg Neutrophils % Seg Neuts % (Manual) Lymphocytes % (Manual) Nucleated RBC % Seg Neutrophils # Man Lymphocytes # (Manual) PT INR APTT D-Dimer ABG pH POC ABG pCO2 POC ABG pO2 ABG pO2 ABG HCO3 ABG Base Excess ABG Hemoglobin ABG Oxyhemoglobin ABG Potassium ABG Chloride ABG Glucose Oxyhemoglobin Carboxyhemoglobin Sodium Potassium Chloride Carbon Dioxide BUN Creatinine Glucose POC Glucose 185 H 208 H 227 H Calcium Phosphorus AST ALT Alkaline Phosphatase Lactate Dehydrogenase CK-MB (CK-2) CK-MB (CK-2) Rel Index Troponin T C-Reactive Protein NT-Pro-B Natriuret Pep Albumin HDL Cholesterol TSH Arterial Blood Glucose Arterial Blood Ionized Calcium Hepatitis C Antibody Crossmatch 07/29/20 05:37 WBC RBC Hgb Hct MCV RDW Plt Count Lymph % (Auto) [place] % (Auto) Lymph # (Auto) [place] # (Auto) Seg Neutrophils % Seg Neuts % (Manual) Lymphocytes % (Manual) Nucleated RBC % Seg Neutrophils # Man Lymphocytes # (Manual) PT INR APTT D-Dimer ABG pH POC ABG pCO2 POC ABG pO2 ABG pO2 ABG HCO3 ABG Base Excess ABG Hemoglobin ABG Oxyhemoglobin ABG Potassium ABG Chloride ABG Glucose Oxyhemoglobin Carboxyhemoglobin Sodium Potassium Chloride Carbon Dioxide BUN Creatinine Glucose POC Glucose 225 H Calcium Phosphorus AST ALT Alkaline Phosphatase Lactate Dehydrogenase CK-MB (CK-2) CK-MB (CK-2) Rel Index Troponin T C-Reactive Protein NT-Pro-B Natriuret Pep Albumin HDL Cholesterol TSH Arterial Blood Glucose Arterial Blood Ionized Calcium Hepatitis C Antibody Crossmatch Allied health notes reviewed: nursing
--- NOTE | 2020-07-29 12:25 | Progress Note ---
Assessment and Plan - Patient Problems (1) Acute on chronic renal failure Current Visit: Yes Status: Acute Qualifiers: Acute renal failure type: unspecified Chronic kidney disease stage: stage 3 (moderate) Chronic kidney disease stage 3 subtype: stage 3a (GFR 45-59) Qualified Code(s): N17.9 - Acute kidney failure, unspecified; N18.31 - Chronic kidney disease, stage 3a Plan to address problem: Patient has likely underlying chronic kidney disease stage IIIb in the setting of hypertension and diabetes. With worsening renal failure and unresponsiveness to optimal IV diuretic regimen patient was started on hemodialysis therapy. We will adjust his schedule to Thursday with sequential ultrafiltration treatments for Thursday in order to optimize his volume status. We will continue to monitor for signs of renal function and recovery. (2) Anasarca Current Visit: Yes Status: Acute Plan to address problem: Patient unfortunately did not respond well to optimal IV diuretic regimen. Secondary to persistent edema and worsening renal failure he was started on hemodialysis therapy. (3) Anemia Current Visit: Yes Status: Chronic Qualifiers: Anemia type: unspecified type Qualified Code(s): D64.9 - Anemia, unspecified Plan to address problem: Transfuse to maintain hemoglobin above 7. (4) Hyperkalemia Current Visit: Yes Status: Acute Plan to address problem: Correct with hemodialysis. (5) Sepsis Current Visit: Yes Status: Suspected Qualifiers: Sepsis type: sepsis due to unspecified organism Sepsis acute organ dysfunction status: with acute organ dysfunction Severe sepsis acute organ dysfunction type: acute renal failure Acute renal failure type: unspecified Severe sepsis shock status: without septic shock Qualified Code(s): A41.9 - Sepsis, unspecified organism; R65.20 - Severe sepsis without septic shock; N17.9 - Acute kidney failure, unspecified Plan to address problem: Please ensure that antibiotics are dosed appropriate for his decreased renal function. Off pressor support at this time. 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 Unresponsive to optimal diuretic regimen and therefore was transitioned to hemodialysis. (7) Hypertensive chronic kidney disease with stage 1 through stage 4 chronic kidney disease, or unspecified chronic kidney disease Current Visit: No Status: Acute Plan to address problem: We will hold off on all blood pressure medication at this time giving his current hemodynamic status. (8) Type 2 diabetes mellitus with diabetic nephropathy Current Visit: No Status: Acute Plan to address problem: Diabetes managed per primary attending. Subjective Date of service: 07/29/20 Principal diagnosis: RACQUEL Interval history: Remains intubated at this time. Had hemodialysis yesterday with goal ultrafiltration 3 L. No acute indication for renal placement therapy today. We will switch his hemodialysis therapy to Thursday and we will also add sequential ultrafiltration treatments as needed on Saturdays for further volume optimization. Objective - Vital Signs Vital signs: Vital Signs - 12hr 07/29/20 07/29/20 07/29/20 00:30 00:46 01:00 Temperature Pulse Rate 68 67 67 Respiratory 17 18 18 Rate Blood Pressure 127/71 127/71 128/71 O2 Sat by Pulse 96 100 96 Oximetry 07/29/20 07/29/20 07/29/20 01:13 01:16 01:30 Temperature 97.4 F L 97.5 F L Pulse Rate 67 67 68 Respiratory 17 17 18 Rate Blood Pressure 126/73 126/73 128/72 O2 Sat by Pulse 99 100 98 Oximetry 07/29/20 07/29/20 07/29/20 01:46 02:00 02:16 Temperature 97.5 F L Pulse Rate 68 66 67 Respiratory 17 17 17 Rate Blood Pressure 128/72 130/71 130/71 O2 Sat by Pulse 100 97 99 Oximetry 07/29/20 07/29/20 07/29/20 02:30 02:37 02:46 Temperature 97.3 F L 97.4 F L Pulse Rate 67 66 67 Respiratory 18 18 16 Rate Blood Pressure 132/74 128/76 132/74 O2 Sat by Pulse 97 100 99 Oximetry 07/29/20 07/29/20 07/29/20 03:00 03:16 03:30 Temperature 97.4 F L 97.3 F L Pulse Rate 66 66 66 Respiratory 18 17 17 Rate Blood Pressure 128/76 128/76 131/74 O2 Sat by Pulse 97 99 97 Oximetry 07/29/20 07/29/20 07/29/20 03:46 04:00 04:15 Temperature 97.2 F L 973 F H Pulse Rate 69 67 Respiratory 19 14 18 Rate Blood Pressure 131/74 138/78 O2 Sat by Pulse 100 96 100 Oximetry 07/29/20 07/29/20 07/29/20 04:16 04:30 04:46 Temperature Pulse Rate 67 67 68 Respiratory 18 19 18 Rate Blood Pressure 138/78 126/73 126/73 O2 Sat by Pulse 99 96 99 Oximetry 07/29/20 07/29/20 07/29/20 05:00 05:16 05:30 Temperature Pulse Rate 68 66 67 Respiratory 18 17 18 Rate Blood Pressure 134/77 134/77 132/74 O2 Sat by Pulse 96 99 96 Oximetry 07/29/20 07/29/20 07/29/20 05:46 06:00 06:16 Temperature Pulse Rate 66 66 66 Respiratory 18 18 19 Rate Blood Pressure 132/74 131/76 132/74 O2 Sat by Pulse 100 96 100 Oximetry 07/29/20 07/29/20 07/29/20 06:18 06:30 06:46 Temperature Pulse Rate 65 66 66 Respiratory 19 17 Rate Blood Pressure 131/76 133/78 131/76 O2 Sat by Pulse 94 98 Oximetry 07/29/20 07/29/20 07/29/20 07:00 07:16 07:30 Temperature Pulse Rate 68 67 68 Respiratory 18 18 19 Rate Blood Pressure 127/72 127/72 125/74 O2 Sat by Pulse 93 98 94 Oximetry 07/29/20 07/29/20 07/29/20 07:46 08:00 08:16 Temperature 97.2 F L Pulse Rate 67 68 68 Respiratory 17 18 18 Rate Blood Pressure 125/74 122/72 122/72 O2 Sat by Pulse 98 95 97 Oximetry 07/29/20 07/29/20 07/29/20 08:30 08:46 09:00 Temperature Pulse Rate 68 67 69 Respiratory 18 17 18 Rate Blood Pressure 125/73 125/73 127/72 O2 Sat by Pulse 94 97 93 Oximetry 07/29/20 07/29/20 07/29/20 09:16 09:30 09:46 Temperature Pulse Rate 67 75 70 Respiratory 18 15 19 Rate Blood Pressure 127/72 131/80 131/80 O2 Sat by Pulse 97 92 98 Oximetry 07/29/20 07/29/20 07/29/20 10:00 10:14 10:16 Temperature Pulse Rate 69 68 68 Respiratory 19 6 L 18 Rate Blood Pressure 128/74 128/74 128/74 O2 Sat by Pulse 93 100 98 Oximetry 07/29/20 07/29/20 07/29/20 10:30 10:46 11:00 Temperature Pulse Rate 78 66 66 Respiratory 24 18 18 Rate Blood Pressure 128/74 123/84 123/84 O2 Sat by Pulse 98 98 97 Oximetry 07/29/20 07/29/20 07/29/20 11:16 11:30 11:46 Temperature Pulse Rate 69 69 69 Respiratory 19 19 18 Rate Blood Pressure 119/72 127/75 127/75 O2 Sat by Pulse 99 96 98 Oximetry 07/29/20 07/29/20 12:00 12:16 Temperature Pulse Rate 68 69 Respiratory 17 18 Rate Blood Pressure 127/74 127/74 O2 Sat by Pulse 95 98 Oximetry - General Appearance General appearance: intubated, frail EENT: ATNC Neck: no JVD Respiratory: Present: Decreased Breath Sounds Cardiology: regular Gastrointestinal: normal Integumentary: rash, ulcer Neurologic: other (Intubated , sedated) Musculoskeletal: other (3+ pitting edema) - Lab 07/28/20 04:00 07/27/20 06:36 Most recent lab results ABG pH 7.520 pH Units (7.350-7.450) H 07/27/20 05:20 ABG pCO2 33.5 mm Hg 07/27/20 05:20 ABG pO2 64.2 mm Hg (80.0-90.0) L 07/27/20 05:20 ABG HCO3 26.8 mmol/L (20.0-26.0) H 07/27/20 05:20 ABG O2 Saturation 95.8 % (95.0-99.0) 07/27/20 05:20 Calcium 8.2 mg/dL (8.4-10.2) L 07/27/20 06:36 Phosphorus 5.80 mg/dL (2.5-4.5) H 07/22/20 10:30 Magnesium 2.10 mg/dL (1.7-2.3) 07/22/20 10:30 - Allied health notes Allied health notes reviewed: nursing Medications & Allergies - Medications Allergies/Adverse Reactions: Allergies No Known Allergies Allergy (Verified 06/19/19 17:53) Home Medications: Home Medications Medication Instructions Recorded Confirmed Last Taken Type FLUoxetine [PROzac] 20 mg PO QDAY #14 capsule 06/23/19 06/21/20 Unknown Rx traZODone [Desyrel] 50 mg PO QHS #10 tablet 06/23/19 06/21/20 Unknown Rx Folic Acid 1 mg PO DAILY #30 tablet 06/25/19 06/21/20 Unknown Rx Nicotine [Habitrol] 14 mg TD DAILY #30 patch 06/25/19 06/21/20 Unknown Rx Thiamine [Vitamin B-1] 100 mg PO QDAY #30 tablet 06/25/19 06/21/20 Unknown Rx Aspirin EC [Halfprin EC] 81 mg PO QDAY #30 tablet. 07/26/19 06/21/20 Unknown Rx levETIRAcetam [Keppra TAB] 750 mg PO BID #60 tablet 07/26/19 06/21/20 Unknown Rx Furosemide [Lasix TAB] 40 mg PO QDAY #30 tablet 04/28/20 06/21/20 Unknown Rx Famotidine [Pepcid] 20 mg PO BID #60 tablet 07/05/20 Unknown Rx Insulin NPH, Human [NovoLIN N] 5 unit SUB-Q BIDDIAB 30 Days #10 ml 07/05/20 06/21/20 Unknown Rx amLODIPine 10 mg PO QDAY #30 tablet 07/05/20 Unknown Rx carvediloL [Coreg] 12.5 mg PO BID #60 tablet 07/05/20 Unknown Rx hydrALAZINE [Apresoline TAB] 50 mg PO Q8HR #30 tablet 07/06/20 Unknown Rx Active Medications: Generic Name Dose Route Start Last Admin Trade Name Freq PRN Reason Stop Dose Admin Lipase/Protease/Amylase 1 each 07/23/20 14:17 Lipase 10,500/Protease 25,000/Amylase 43,750 (Units) Dr Shell FEEDTUBE PRN PRN For Clogged Feeding Tube Aspirin 81 mg 07/19/20 10:00 07/29/20 09:09 Aspirin Ec 81 Mg Tab PO 81 mg QDAY JODIE Administration Atropine Sulfate 1 mg 07/23/20 09:03 07/23/20 22:15 Atropine 0.1% (1 Mg/10 Ml) Cardiac Syringe IV 1 mg PRN PRN Administration Bradycardia Dextrose 50 ml 07/23/20 03:28 07/23/20 06:00 Dextrose 50% In Water (25gm) 50 Ml Syringe IV 50 ml Q30MIN PRN Administration Hypoglycemia Protocol Famotidine 20 mg 07/18/20 22:00 07/29/20 09:09 Famotidine 20 Mg Tab PO 20 mg DAILY JODIE Administration Fluoxetine HCl 20 mg 07/19/20 10:00 07/29/20 09:10 Fluoxetine 20 Mg Cap PO 20 mg QDAY JODIE Administration Folic Acid 1 mg 07/19/20 10:00 07/29/20 09:10 Folic Acid 1 Mg Tab PO 1 mg DAILY JODIE Administration Hydralazine HCl 50 mg 07/18/20 14:00 07/29/20 06:18 Hydralazine 25 Mg Tab PO 50 mg Q8HR JODIE Administration Hydralazine HCl 20 mg 07/22/20 14:02 Hydralazine 20 Mg/1 Ml Inj IV Q4HR PRN Blood Pressure Hydrophilic Ointment 1 applic 07/22/20 10:02 Lip Therapy Vaseline TP Q2HR PRN Dry Lips Sodium Chloride 100 mls @ 999 mls/hr 07/23/20 11:13 Nacl 0.9% IV FRANCISCO PRN Hypotension Norepinephrine 4 mg in 250 mls @ 7.5 mls/hr 07/24/20 10:00 07/24/20 15:35 Levophed Drip 4 Mg/Ns 250 Ml IV 0 mcg/min TITR JODIE 0 mls/hr Titration Protocol 2 MCG/MIN Sodium Chloride 500 mls @ 0 mls/hr 07/28/20 20:56 Nacl 0.9% 500 Ml IV 07/29/20 20:55 ONCE JODIE As Directed Insulin Human Lispro 0 unit 07/26/20 10:00 07/29/20 06:17 Insulin Lispro 100 Unit/Ml SUB-Q 3 unit Q6HR JODIE Administration Protocol Levetiracetam 750 mg 07/18/20 22:00 07/29/20 09:09 Levetiracetam 500 Mg/5 Ml Oral Liqd PO 750 mg BID JODIE Administration Multi-Ingred Cream/Lotion/Oil/Oint 1 applic 07/22/20 10:02 Mineral Oil/Petrolatum, White Ophth Oint 3.5 Gm OU Q4HR PRN Dry Eye(s) Simple Syrup 15 ml 07/23/20 14:17 Simple Syrup 15 Ml FEEDTUBE PRN PRN Hypoglycemia Simple Syrup 30 ml 07/23/20 14:17 Simple Syrup 15 Ml FEEDTUBE PRN PRN Hypoglycemia Sodium Bicarbonate 325 mg 07/23/20 14:17 Sodium Bicarbonate 325 Mg Tab FEEDTUBE PRN PRN For Clogged Feeding Tube Thiamine HCl 100 mg 07/19/20 10:00 07/29/20 09:10 Thiamine 100 Mg Tab PO 100 mg QDAY JODIE Administration Trazodone HCl 50 mg 07/18/20 22:00 07/28/20 22:35 Trazodone 50 Mg Tab PO 50 mg QHS JODIE Administration
[2020-07-29] MEDS: traZODone 50 MG TAB PO SCH (22:55)
[2020-07-30] MEDS: INSULIN LISPRO 100 UNIT/ML SUB-Q SCH ×5 (00:14→23:52)
--- NOTE | 2020-07-30 00:19 | Progress Note ---
Assessment and Plan The high probability of a clinically significant, sudden or life threatening deterioration of the [multi] system(s) required my full and direct attention, intervention and personal management. The aggregate critical care time was [32] minutes. This time is in addition to time spent performing reported procedures but includes the following: [x] Data Review and interpretation [x] Patient assessment and monitoring of vital signs [x] Documentation [x] Medication orders and management Assessment and Plan --PUI/COVID-19 test negative/07/18/2020 --Acute on chronic kidney disease stage III; Vasomotor nephropathy, Nephrology initiated hemodialysis Management per nephrology, HD per schedule --Acute hypoxic respiratory failure: Intubated 07/22/2020 On mechanical ventilation Pulmonary critical following --Non-STEMI-2 : probably secondary to respiratory failure, chronic kidney disease Patient has risk factors, cardiology following, --Bradycardia; improved Heart rate in 60s today Hold beta-blockers,Atropine as needed --Hyperkalemia; resolved after hemodialysis HD per schedule, monitor electrolytes Nephrology following --hyponatremia; resolved Closely monitor electrolytes --Acute toxic metabolic encephalopathy; CT head without contrast, no acute abnormality --Severe protein calorie malnutrition/hypoalbuminemia, nutrition supplements, tube feeding, nutrition consult --Thrombocytopenia; HIT antibodies negative --Sepsis hypothermia; Warm blankets, treat the underlying sepsis IV antibiotics, follow cultures --h/o right calf abscess: --h/o MSSA sepsis: On Unasyn completed antibiotics on 07/24/2020 --Type 2 diabetes mellitus; Blood sugars in the lower range, avoid hypoglycemia Accu-Chek sliding scale coverage ADA diet Long-acting insulin as needed, check HbA1c 8.3 last month --Ac on community services manager systolic CHF; EF 35 to 40%[04/2020] Continue antifailure medications Input output monitoring, diuretics Cardiology following --History of seizure disorder; Seizure precautions, continue Keppra --History of CVA; with residual weakness Fall precautions, PT OT as needed --DVT prophylaxis;thrombocytopenia, no anticoagulation Continue SCDs --Full CODE STATUS --Restraint for safety Subjective Date of service: 07/29/20 Principal diagnosis: RACQUEL Interval history: Brief history; 64-year-old male patient with significant past medical history of diabetes mellitus chronic kidney disease CVA with residual weakness was admitted through emergency room with altered level of consciousness and unresponsiveness Patient was initially evaluated and noted to be in sepsis secondary to MSSA bacteremia on long-term antibiotics Patient's renal function progressively deteriorated, initially patient refused the options of dialysis which concrete pourer has discussed with him, and then suddenly patient went into respiratory arrest requiring intubation and mechanical ventilation, patient was transferred to ICU, family members were contacted, nephrology got consent from the family and h emodialysis was initiated, patient remains intubated on ventilatory support. Wean as tolerated and extubate. Hospital course; 07/19/2020; unable to pass Ayala catheter, Consulted urology, continue supportive care, COVID-19 test negative 07/20/2020; urology evaluation recommendation noted and appreciated Ayala catheter was inserted by urology, draining well MSSA bacteremia on long-term antibiotics 07/21/2020; patient is lethargic CT head without contrast, no acute abnormality Patient is afebrile 07/22/2020; patient had acute respiratory failure this morning CODE BLUE was called, patient was intubated on ventilatory support Pulmonary critical consulted, family patients aunt informed 07/23/2020; patient has severe bradycardia this morning, received atropine Cardiology following. Beta-blockers held, electrolytes corrected Patient's heart rate improved to 50s and 60s Cardiology following Nephrology planning hemodialysis trying to get consent from family 07/24/2020; patient received hemodialysis yesterday Remains intubated on ventilatory support Bradycardia significantly improved heart rate in 60s Completed 6 weeks of Unasyn for MSSA sepsis today 07/25/2020; patient remains on ventilatory support Receiving HD per schedule dual Wean as tolerated and extubate 07/26/2020; patient remains on ventilatory support, wean as tolerated and extubate Initiated hemodialysis, HD per schedule, new set of blood culture sent 07/27/20 Weaning in progress 07/28/20 Weaning in progress 07/29/20 Same condition Objective - Exam Narrative Exam: Intubated - Constitutional Vitals: Vital Signs - 12hr 07/29/20 07/29/20 07/29/20 12:30 12:46 13:00 Temperature Pulse Rate 68 68 66 Respiratory 17 18 18 Rate Blood Pressure 129/74 129/74 124/76 O2 Sat by Pulse 95 98 98 Oximetry 07/29/20 07/29/20 07/29/20 13:16 13:23 13:30 Temperature Pulse Rate 75 70 Respiratory 11 L 17 Rate Blood Pressure 124/76 129/74 124/76 O2 Sat by Pulse 99 99 100 Oximetry 07/29/20 07/29/20 07/29/20 13:44 13:46 14:00 Temperature Pulse Rate 67 67 66 Respiratory 18 18 Rate Blood Pressure 131/73 131/73 133/76 O2 Sat by Pulse 100 95 Oximetry 07/29/20 07/29/20 07/29/20 14:16 14:30 14:46 Temperature Pulse Rate 66 64 64 Respiratory 19 18 17 Rate Blood Pressure 133/76 129/72 129/72 O2 Sat by Pulse 99 95 99 Oximetry 07/29/20 07/29/20 07/29/20 15:00 15:16 15:30 Temperature Pulse Rate 64 64 65 Respiratory 17 16 14 Rate Blood Pressure 129/72 128/70 128/70 O2 Sat by Pulse 99 99 99 Oximetry 07/29/20 07/29/20 07/29/20 15:46 16:00 16:16 Temperature 97.1 F L Pulse Rate 64 70 64 Respiratory 17 19 15 Rate Blood Pressure 132/73 132/73 132/71 O2 Sat by Pulse 99 99 99 Oximetry 07/29/20 07/29/20 07/29/20 16:30 16:46 16:55 Temperature Pulse Rate 64 63 64 Respiratory 11 L 17 17 Rate Blood Pressure 134/72 134/72 134/72 O2 Sat by Pulse 96 99 99 Oximetry 07/29/20 07/29/20 07/29/20 17:00 17:16 17:30 Temperature Pulse Rate 63 63 65 Respiratory 17 18 16 Rate Blood Pressure 136/72 136/72 136/73 O2 Sat by Pulse 95 99 94 Oximetry 07/29/20 07/29/20 07/29/20 17:46 18:09 18:16 Temperature Pulse Rate 64 62 63 Respiratory 18 16 17 Rate Blood Pressure 136/73 O2 Sat by Pulse 99 99 99 Oximetry 07/29/20 07/29/20 07/29/20 19:00 19:30 20:00 Temperature 98.6 F Pulse Rate 66 63 63 Respiratory 17 17 17 Rate Blood Pressure 126/70 137/77 131/73 O2 Sat by Pulse 95 95 95 Oximetry 07/29/20 07/29/20 07/29/20 20:30 21:00 21:04 Temperature Pulse Rate 65 64 68 Respiratory 17 17 Rate Blood Pressure 131/73 132/76 132/76 O2 Sat by Pulse 100 98 99 Oximetry 07/29/20 07/29/20 07/29/20 21:30 22:00 22:30 Temperature Pulse Rate 68 67 67 Respiratory 18 17 18 Rate Blood Pressure 132/76 137/79 137/77 O2 Sat by Pulse 99 96 94 Oximetry 07/29/20 07/29/20 07/29/20 22:56 23:00 23:19 Temperature Pulse Rate 66 67 63 Respiratory 18 Rate Blood Pressure 137/77 137/77 O2 Sat by Pulse 100 Oximetry General appearance: Present: no acute distress, mild distress, well-nourished - EENT Eyes: PERRL, EOM intact ENT: hearing intact, clear oral mucosa Ears: bilateral: normal - Neck Neck: supple, normal ROM - Respiratory Respiratory effort: normal Respiratory: bilateral: CTA, rhonchi - Breasts Breasts: normal - Cardiovascular Heart rate: 78 Rhythm: regular Heart Sounds: Present: S1 & S2. Absent: gallop, rub Extremities: pulses intact, No edema, normal color, Full ROM - Gastrointestinal General gastrointestinal: Present: soft, non-tender, non-distended, normal bowel sounds - Genitourinary Male genitourinary: normal - Integumentary Integumentary: clear, warm, dry - Musculoskeletal Musculoskeletal: generalized weakness - Neurologic Neurologic: moves all extremities - Psychiatric Psychiatric: other (Intubated) - Labs CBC & Chem 7: 07/30/20 09:05 07/30/20 09:05 Labs: Abnormal lab results 07/28/20 07/29/20 07/29/20 Range/Units 10:15 05:37 12:04 POC Glucose 225 H 201 H (70-105) mg/dL Crossmatch See Detail 07/29/20 Range/Units 17:11 POC Glucose 185 H (70-105) mg/dL Crossmatch HEART Score - HEART Score Troponin: Troponin T 0.047 ng/mL (0.00-0.029) H 07/22/20 10:30
[2020-07-30] MEDS: hydrALAZINE 25 MG TAB PO SCH ×3 (06:26→21:59)
[2020-07-30] MEDS: FLUoxetine 20 MG CAP PO SCH (09:01)
[2020-07-30] MEDS: ASPIRIN EC 81 MG TAB PO SCH (09:01)
[2020-07-30] MEDS: THIAMINE 100 MG TAB PO SCH (09:01)
[2020-07-30] MEDS: levETIRAcetam 500 MG/5 ML ORAL LIQD PO SCH ×2 (09:04→22:00)
[2020-07-30] MEDS: FAMOTIDINE 20 MG TAB PO SCH (09:04)
[2020-07-30] MEDS: FOLIC ACID 1 MG TAB PO SCH (09:04)
--- NOTE | 2020-07-30 09:35 | Progress Note ---
Assessment and Plan - Patient Problems (1) Acute on chronic renal failure Current Visit: Yes Status: Acute Qualifiers: Acute renal failure type: unspecified Chronic kidney disease stage: stage 3 (moderate) Chronic kidney disease stage 3 subtype: stage 3a (GFR 45-59) Qualified Code(s): N17.9 - Acute kidney failure, unspecified; N18.31 - Chronic kidney disease, stage 3a Plan to address problem: Patient has likely underlying chronic kidney disease stage IIIb in the setting of hypertension and diabetes. With worsening renal failure and unresponsiveness to optimal IV diuretic regimen patient was started on hemodialysis therapy. We will adjust his schedule to Thursday with sequential ultrafiltration treatments for Thursday in order to optimize his volume status. We will continue to monitor for signs of renal function and recovery. (2) Anasarca Current Visit: Yes Status: Acute Plan to address problem: Patient unfortunately did not respond well to optimal IV diuretic regimen. Secondary to persistent edema and worsening renal failure he was started on hemodialysis therapy. (3) Anemia Current Visit: Yes Status: Chronic Qualifiers: Anemia type: unspecified type Qualified Code(s): D64.9 - Anemia, unspecified Plan to address problem: Transfuse to maintain hemoglobin above 7. (4) Hyperkalemia Current Visit: Yes Status: Acute Plan to address problem: Correct with hemodialysis. (5) Sepsis Current Visit: Yes Status: Suspected Qualifiers: Sepsis type: sepsis due to unspecified organism Sepsis acute organ dysfunction status: with acute organ dysfunction Severe sepsis acute organ dysfunction type: acute renal failure Acute renal failure type: unspecified Severe sepsis shock status: without septic shock Qualified Code(s): A41.9 - Sepsis, unspecified organism; R65.20 - Severe sepsis without septic shock; N17.9 - Acute kidney failure, unspecified Plan to address problem: Please ensure that antibiotics are dosed appropriate for his decreased renal function. Off pressor support at this time. 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 Unresponsive to optimal diuretic regimen and therefore was transitioned to hemodialysis. (7) Hypertensive chronic kidney disease with stage 1 through stage 4 chronic kidney disease, or unspecified chronic kidney disease Current Visit: No Status: Acute Plan to address problem: We will hold off on all blood pressure medication at this time giving his current hemodynamic status. (8) Type 2 diabetes mellitus with diabetic nephropathy Current Visit: No Status: Acute Plan to address problem: Diabetes managed per primary attending. Subjective Date of service: 07/30/20 Principal diagnosis: RACQUEL Interval history: Remains intubated at this time. Plan for HD today. Objective - Vital Signs Vital signs: Vital Signs - 12hr 07/29/20 07/29/20 07/29/20 22:00 22:30 22:56 Temperature Pulse Rate 67 67 66 Respiratory 17 18 Rate Blood Pressure 137/79 137/77 137/77 O2 Sat by Pulse 96 94 Oximetry 07/29/20 07/29/20 07/29/20 23:00 23:08 23:19 Temperature Pulse Rate 67 69 63 Respiratory 18 18 Rate Blood Pressure 137/77 147/79 O2 Sat by Pulse 100 100 Oximetry 07/29/20 07/30/20 07/30/20 23:30 00:00 00:30 Temperature 97.6 F Pulse Rate 65 64 65 Respiratory 17 16 17 Rate Blood Pressure 132/70 120/65 135/73 O2 Sat by Pulse 95 99 97 Oximetry 07/30/20 07/30/20 07/30/20 01:00 01:26 01:30 Temperature Pulse Rate 68 66 65 Respiratory 17 17 Rate Blood Pressure 120/65 138/75 142/75 O2 Sat by Pulse 100 100 97 Oximetry 07/30/20 07/30/20 07/30/20 02:00 02:30 03:00 Temperature Pulse Rate 65 63 65 Respiratory 19 17 17 Rate Blood Pressure 142/75 134/75 135/78 O2 Sat by Pulse 100 98 97 Oximetry 07/30/20 07/30/20 07/30/20 03:30 04:00 04:30 Temperature 97.6 F Pulse Rate 63 63 63 Respiratory 17 16 16 Rate Blood Pressure 143/78 143/78 143/78 O2 Sat by Pulse 96 96 100 Oximetry 07/30/20 07/30/20 07/30/20 05:00 05:30 06:00 Temperature Pulse Rate 64 63 63 Respiratory 16 19 16 Rate Blood Pressure 145/79 144/80 146/79 O2 Sat by Pulse 100 100 100 Oximetry 07/30/20 07/30/20 07/30/20 06:26 06:30 07:40 Temperature Pulse Rate 62 63 65 Respiratory Rate Blood Pressure 147/82 138/77 128/72 O2 Sat by Pulse 100 100 Oximetry 07/30/20 08:07 Temperature Pulse Rate 61 Respiratory 17 Rate Blood Pressure 142/75 O2 Sat by Pulse 100 Oximetry - General Appearance General appearance: chronically ill, sedated on ventilator, intubated EENT: ATNC Neck: no JVD Respiratory: Present: Decreased Breath Sounds Cardiology: regular Gastrointestinal: normal Integumentary: rash, ulcer Neurologic: other (sedated on ventilator) Psychiatric: cooperative - Lab 07/28/20 04:00 07/27/20 06:36 Most recent lab results ABG pH 7.520 pH Units (7.350-7.450) H 07/27/20 05:20 ABG pCO2 33.5 mm Hg 07/27/20 05:20 ABG pO2 64.2 mm Hg (80.0-90.0) L 07/27/20 05:20 ABG HCO3 26.8 mmol/L (20.0-26.0) H 07/27/20 05:20 ABG O2 Saturation 95.8 % (95.0-99.0) 07/27/20 05:20 Calcium 8.2 mg/dL (8.4-10.2) L 07/27/20 06:36 Phosphorus 5.80 mg/dL (2.5-4.5) H 07/22/20 10:30 Magnesium 2.10 mg/dL (1.7-2.3) 07/22/20 10:30 - Allied health notes Allied health notes reviewed: nursing Medications & Allergies - Medications Allergies/Adverse Reactions: Allergies No Known Allergies Allergy (Verified 06/19/19 17:53) Home Medications: Home Medications Medication Instructions Recorded Confirmed Last Taken Type FLUoxetine [PROzac] 20 mg PO QDAY #14 capsule 06/23/19 06/21/20 Unknown Rx traZODone [Desyrel] 50 mg PO QHS #10 tablet 06/23/19 06/21/20 Unknown Rx Folic Acid 1 mg PO DAILY #30 tablet 06/25/19 06/21/20 Unknown Rx Nicotine [Habitrol] 14 mg TD DAILY #30 patch 06/25/19 06/21/20 Unknown Rx Thiamine [Vitamin B-1] 100 mg PO QDAY #30 tablet 06/25/19 06/21/20 Unknown Rx Aspirin EC [Halfprin EC] 81 mg PO QDAY #30 tablet. 07/26/19 06/21/20 Unknown Rx levETIRAcetam [Keppra TAB] 750 mg PO BID #60 tablet 07/26/19 06/21/20 Unknown Rx Furosemide [Lasix TAB] 40 mg PO QDAY #30 tablet 04/28/20 06/21/20 Unknown Rx Famotidine [Pepcid] 20 mg PO BID #60 tablet 07/05/20 Unknown Rx Insulin NPH, Human [NovoLIN N] 5 unit SUB-Q BIDDIAB 30 Days #10 ml 07/05/20 06/21/20 Unknown Rx amLODIPine 10 mg PO QDAY #30 tablet 07/05/20 Unknown Rx carvediloL [Coreg] 12.5 mg PO BID #60 tablet 07/05/20 Unknown Rx hydrALAZINE [Apresoline TAB] 50 mg PO Q8HR #30 tablet 07/06/20 Unknown Rx Active Medications: Generic Name Dose Route Start Last Admin Trade Name Freq PRN Reason Stop Dose Admin Lipase/Protease/Amylase 1 each 07/23/20 14:17 Lipase 10,500/Protease 25,000/Amylase 43,750 (Units) Dr Shell FEEDTUBE PRN PRN For Clogged Feeding Tube Aspirin 81 mg 07/19/20 10:00 07/30/20 09:01 Aspirin Ec 81 Mg Tab PO 81 mg QDAY JODIE Administration Atropine Sulfate 1 mg 07/23/20 09:03 07/23/20 22:15 Atropine 0.1% (1 Mg/10 Ml) Cardiac Syringe IV 1 mg PRN PRN Administration Bradycardia Dextrose 50 ml 07/23/20 03:28 07/23/20 06:00 Dextrose 50% In Water (25gm) 50 Ml Syringe IV 50 ml Q30MIN PRN Administration Hypoglycemia Protocol Famotidine 20 mg 07/18/20 22:00 07/30/20 09:04 Famotidine 20 Mg Tab PO 20 mg DAILY JODIE Administration Fluoxetine HCl 20 mg 07/19/20 10:00 07/30/20 09:01 Fluoxetine 20 Mg Cap PO 20 mg QDAY JODIE Administration Folic Acid 1 mg 07/19/20 10:00 07/30/20 09:04 Folic Acid 1 Mg Tab PO 1 mg DAILY JODIE Administration Hydralazine HCl 50 mg 07/18/20 14:00 07/30/20 06:26 Hydralazine 25 Mg Tab PO 50 mg Q8HR JODIE Administration Hydralazine HCl 20 mg 07/22/20 14:02 Hydralazine 20 Mg/1 Ml Inj IV Q4HR PRN Blood Pressure Hydrophilic Ointment 1 applic 07/22/20 10:02 Lip Therapy Vaseline TP Q2HR PRN Dry Lips Sodium Chloride 100 mls @ 999 mls/hr 07/23/20 11:13 Nacl 0.9% IV FRANCISCO PRN Hypotension Norepinephrine 4 mg in 250 mls @ 7.5 mls/hr 07/24/20 10:00 07/24/20 15:35 Levophed Drip 4 Mg/Ns 250 Ml IV 0 mcg/min TITR JODIE 0 mls/hr Titration Protocol 2 MCG/MIN Insulin Human Lispro 0 unit 07/26/20 10:00 07/30/20 06:25 Insulin Lispro 100 Unit/Ml SUB-Q 3 unit Q6HR JODIE Administration Protocol Levetiracetam 750 mg 07/18/20 22:00 07/30/20 09:04 Levetiracetam 500 Mg/5 Ml Oral Liqd PO 750 mg BID JODIE Administration Multi-Ingred Cream/Lotion/Oil/Oint 1 applic 07/22/20 10:02 Mineral Oil/Petrolatum, White Ophth Oint 3.5 Gm OU Q4HR PRN Dry Eye(s) Simple Syrup 15 ml 07/23/20 14:17 Simple Syrup 15 Ml FEEDTUBE PRN PRN Hypoglycemia Simple Syrup 30 ml 07/23/20 14:17 Simple Syrup 15 Ml FEEDTUBE PRN PRN Hypoglycemia Sodium Bicarbonate 325 mg 07/23/20 14:17 Sodium Bicarbonate 325 Mg Tab FEEDTUBE PRN PRN For Clogged Feeding Tube Thiamine HCl 100 mg 07/19/20 10:00 07/30/20 09:01 Thiamine 100 Mg Tab PO 100 mg QDAY JODIE Administration Trazodone HCl 50 mg 07/18/20 22:00 07/29/20 22:55 Trazodone 50 Mg Tab PO 50 mg QHS JODIE Administration
[2020-07-30 10:17] LABS: Hematocrit 23.1 % (35.5-45.6); Hemoglobin 7.7 gm/dl (11.8-15.2); Mean Corpuscular HGB Conc 33 % (32-34); Mean Corpuscular Volume 93 fl (84-94); Red Blood Count 2.49 M/mm3 (3.65-5.03)
--- NOTE | 2020-07-30 10:20 | Progress Note ---
Assessment and Plan 8 y/o male with acute respiratory failure secondary to worsening renal failure, volume overload and altered mental state 07/30/20: Mental state continues to prevent conventional extubation. HD per renal. Need to repeat Head CT to check for other damage. 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 Very very guarded prognosis. If repeat head CT is negative, will need neuro eval and EEG 07/27/20: Mental state continues to prevent conventional extubation. Currently stable on minimal vent settings. HD per renal, does not appear he was dialyzed yesterday so may get it today. If not more awake by tomorrow, suggest repeat head CT. Continue all other supportive measures. 07/26/20: Drop PEEP down to 6. Once more awake PSV trials. HD per renal. Appears to be helping, maybe they will dialyze again today. Prognosis still remains guarded. 1. Needs HD 2. Wean FiO2 and PEEP as tolerated 3. Guarded prognosis CCT 31 minutes. 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 Has been hypothermic this am. Repeat cultures from 07/26 are negative. Remains unresponsive on vent. Tolerating PSV trials right now. Objective Vital Signs - 12hr 07/29/20 07/29/20 07/29/20 22:30 22:56 23:00 Temperature Pulse Rate 67 66 67 Pulse Rate [ From Monitor] Respiratory 18 18 Rate Blood Pressure 137/77 137/77 137/77 O2 Sat by Pulse 94 100 Oximetry 07/29/20 07/29/20 07/29/20 23:08 23:19 23:30 Temperature Pulse Rate 69 63 65 Pulse Rate [ From Monitor] Respiratory 18 17 Rate Blood Pressure 147/79 132/70 O2 Sat by Pulse 100 95 Oximetry 07/30/20 07/30/20 07/30/20 00:00 00:30 01:00 Temperature 97.6 F Pulse Rate 64 65 68 Pulse Rate [ From Monitor] Respiratory 16 17 17 Rate Blood Pressure 120/65 135/73 120/65 O2 Sat by Pulse 99 97 100 Oximetry 07/30/20 07/30/20 07/30/20 01:26 01:30 02:00 Temperature Pulse Rate 66 65 65 Pulse Rate [ From Monitor] Respiratory 17 19 Rate Blood Pressure 138/75 142/75 142/75 O2 Sat by Pulse 100 97 100 Oximetry 07/30/20 07/30/20 07/30/20 02:30 03:00 03:30 Temperature Pulse Rate 63 65 63 Pulse Rate [ From Monitor] Respiratory 17 17 17 Rate Blood Pressure 134/75 135/78 143/78 O2 Sat by Pulse 98 97 96 Oximetry 07/30/20 07/30/20 07/30/20 04:00 04:30 05:00 Temperature 97.6 F Pulse Rate 63 63 64 Pulse Rate [ From Monitor] Respiratory 16 16 16 Rate Blood Pressure 143/78 143/78 145/79 O2 Sat by Pulse 96 100 100 Oximetry 07/30/20 07/30/20 07/30/20 05:30 06:00 06:26 Temperature Pulse Rate 63 63 62 Pulse Rate [ From Monitor] Respiratory 19 16 Rate Blood Pressure 144/80 146/79 147/82 O2 Sat by Pulse 100 100 Oximetry 07/30/20 07/30/20 07/30/20 06:30 07:00 07:30 Temperature Pulse Rate 62 63 63 Pulse Rate [ From Monitor] Respiratory 17 18 17 Rate Blood Pressure 137/77 137/77 128/72 O2 Sat by Pulse 96 100 94 Oximetry 07/30/20 07/30/20 07/30/20 07:40 08:00 08:07 Temperature Pulse Rate 65 63 61 Pulse Rate [ 62 From Monitor] Respiratory 17 17 Rate Blood Pressure 128/72 136/74 142/75 O2 Sat by Pulse 100 100 100 Oximetry 07/30/20 07/30/20 07/30/20 08:30 09:00 09:30 Temperature Pulse Rate 62 62 66 Pulse Rate [ From Monitor] Respiratory 12 13 15 Rate Blood Pressure 120/64 118/64 126/72 O2 Sat by Pulse 95 95 95 Oximetry Constitutional: appears uncomfortable (cpap, orally intubated), other (on vent orally intubated) Eyes: non-icteric ENT: epistaxis Neck: other (large in circumference) Effort: mildly labored Ascultation: Bilateral: diminished breath sounds Neurologic: non-focal exam, unable to assess CBC and BMP: 07/28/20 04:00 07/27/20 06:36 ABG, PT/INR, D-dimer: ABG ABG pH 7.520 pH Units (7.350-7.450) H 07/27/20 05:20 POC ABG pCO2 32.7 mmHg (32.0-48.0) 07/25/20 03:57 ABG pCO2 33.5 mm Hg 07/27/20 05:20 POC ABG pO2 62.7 mmHg (83-108) L 07/25/20 03:57 ABG pO2 64.2 mm Hg (80.0-90.0) L 07/27/20 05:20 POC ABG HCO3 24.8 07/25/20 03:57 ABG O2 Saturation 95.8 % (95.0-99.0) 07/27/20 05:20 PT/INR, D-dimer PT 15.9 Sec. (12.2-14.9) H 07/22/20 10:30 INR 1.27 (0.87-1.13) H 07/22/20 10:30 D-Dimer 1036.46 ng/mlDDU (0-234) H 07/18/20 08:56 Abnormal lab findings: Abnormal Labs 07/18/20 07/18/20 07/18/20 08:56 08:56 08:56 WBC 3.5 L RBC 2.51 L Hgb 8.0 L Hct 24.5 L MCV 98 H RDW 18.3 H Plt Count 58 L Lymph % (Auto) Mitchell % (Auto) 11.1 H Lymph # (Auto) Mitchell # (Auto) Seg Neutrophils % Seg Neuts % (Manual) Lymphocytes % (Manual) Nucleated RBC % Seg Neutrophils # Man Lymphocytes # (Manual) PT INR 1.18 H APTT D-Dimer ABG pH POC ABG pCO2 POC ABG pO2 ABG pO2 ABG HCO3 ABG Base Excess ABG Hemoglobin ABG Oxyhemoglobin ABG Potassium ABG Chloride ABG Glucose Oxyhemoglobin Carboxyhemoglobin Sodium 146 H Potassium 5.2 H Chloride 117.3 H Carbon Dioxide 21 L BUN 52 H Creatinine 3.1 H Glucose 118 H POC Glucose Calcium 8.1 L Phosphorus AST ALT Alkaline Phosphatase Lactate Dehydrogenase CK-MB (CK-2) CK-MB (CK-2) Rel Index Troponin T 0.057 H C-Reactive Protein NT-Pro-B Natriuret Pep Albumin HDL Cholesterol 67 H TSH Arterial Blood Glucose Arterial Blood Ionized Calcium Hepatitis C Antibody Crossmatch 07/18/20 07/18/20 07/18/20 08:56 08:56 08:56 WBC RBC Hgb Hct MCV RDW Plt Count Lymph % (Auto) Mitchell % (Auto) Lymph # (Auto) [place] # (Auto) Seg Neutrophils % Seg Neuts % (Manual) Lymphocytes % (Manual) Nucleated RBC % Seg Neutrophils # Man Lymphocytes # (Manual) PT INR APTT D-Dimer 1036.46 H ABG pH POC ABG pCO2 POC ABG pO2 ABG pO2 ABG HCO3 ABG Base Excess ABG Hemoglobin ABG Oxyhemoglobin ABG Potassium ABG Chloride ABG Glucose Oxyhemoglobin Carboxyhemoglobin Sodium Potassium Chloride Carbon Dioxide BUN Creatinine Glucose POC Glucose Calcium Phosphorus AST ALT Alkaline Phosphatase Lactate Dehydrogenase CK-MB (CK-2) CK-MB (CK-2) Rel Index Troponin T C-Reactive Protein NT-Pro-B Natriuret Pep 4777 H Albumin HDL Cholesterol TSH 5.520 H Arterial Blood Glucose Arterial Blood Ionized Calcium Hepatitis C Antibody Crossmatch 07/18/20 07/18/20 07/18/20 10:36 18:56 19:00 WBC RBC Hgb Hct MCV RDW Plt Count Lymph % (Auto) [place] % (Auto) Lymph # (Auto) [place] # (Auto) Seg Neutrophils % Seg Neuts % (Manual) Lymphocytes % (Manual) Nucleated RBC % Seg Neutrophils # Man Lymphocytes # (Manual) PT INR APTT D-Dimer ABG pH POC ABG pCO2 POC ABG pO2 ABG pO2 ABG HCO3 ABG Base Excess ABG Hemoglobin ABG Oxyhemoglobin ABG Potassium ABG Chloride ABG Glucose Oxyhemoglobin Carboxyhemoglobin Sodium Potassium Chloride Carbon Dioxide BUN Creatinine Glucose 101 H POC Glucose 66 L 63 L Calcium Phosphorus AST ALT Alkaline Phosphatase Lactate Dehydrogenase 212 H CK-MB (CK-2) CK-MB (CK-2) Rel Index Troponin T C-Reactive Protein 2.10 H NT-Pro-B Natriuret Pep Albumin HDL Cholesterol TSH Arterial Blood Glucose Arterial Blood Ionized Calcium Hepatitis C Antibody Crossmatch 07/19/20 07/19/20 07/19/20 06:00 06:00 16:26 WBC 3.9 L RBC 2.34 L Hgb 7.5 L Hct 23.1 L MCV 99 H RDW 18.6 H Plt Count 52 L Lymph % (Auto) Mitchell % (Auto) 9.4 H Lymph # (Auto) 1.0 L [place] # (Auto) Seg Neutrophils % Seg Neuts % (Manual) Lymphocytes % (Manual) Nucleated RBC % Seg Neutrophils # Man Lymphocytes # (Manual) PT INR APTT D-Dimer ABG pH POC ABG pCO2 POC ABG pO2 ABG pO2 ABG HCO3 ABG Base Excess ABG Hemoglobin ABG Oxyhemoglobin ABG Potassium ABG Chloride ABG Glucose Oxyhemoglobin Carboxyhemoglobin Sodium Potassium 5.3 H Chloride 115.8 H Carbon Dioxide BUN 52 H Creatinine 3.4 H Glucose 114 H POC Glucose 123 H Calcium 7.7 L Phosphorus AST 77 H ALT < 5 L Alkaline Phosphatase 678 H Lactate Dehydrogenase CK-MB (CK-2) CK-MB (CK-2) Rel Index Troponin T C-Reactive Protein NT-Pro-B Natriuret Pep Albumin 2.2 L HDL Cholesterol TSH Arterial Blood Glucose Arterial Blood Ionized Calcium Hepatitis C Antibody Crossmatch 07/19/20 07/20/20 07/20/20 21:20 08:25 08:25 WBC 3.6 L RBC 2.54 L Hgb 8.0 L Hct 24.6 L MCV 97 H RDW 18.0 H Plt Count 47 L Lymph % (Auto) Mitchell % (Auto) 9.8 H Lymph # (Auto) 0.9 L Mitchell # (Auto) Seg Neutrophils % Seg Neuts % (Manual) Lymphocytes % (Manual) Nucleated RBC % Seg Neutrophils # Man Lymphocytes # (Manual) PT INR APTT D-Dimer ABG pH POC ABG pCO2 POC ABG pO2 ABG pO2 ABG HCO3 ABG Base Excess ABG Hemoglobin ABG Oxyhemoglobin ABG Potassium ABG Chloride ABG Glucose Oxyhemoglobin Carboxyhemoglobin Sodium Potassium 5.4 H Chloride 115.8 H Carbon Dioxide BUN 56 H Creatinine 3.8 H Glucose 110 H POC Glucose 142 H Calcium 7.9 L Phosphorus AST ALT Alkaline Phosphatase Lactate Dehydrogenase CK-MB (CK-2) CK-MB (CK-2) Rel Index Troponin T C-Reactive Protein NT-Pro-B Natriuret Pep Albumin HDL Cholesterol TSH Arterial Blood Glucose Arterial Blood Ionized Calcium Hepatitis C Antibody Crossmatch 07/20/20 07/20/20 07/20/20 11:27 16:34 21:27 WBC RBC Hgb Hct MCV RDW Plt Count Lymph % (Auto) [place] % (Auto) Lymph # (Auto) [place] # (Auto) Seg Neutrophils % Seg Neuts % (Manual) Lymphocytes % (Manual) Nucleated RBC % Seg Neutrophils # Man Lymphocytes # (Manual) PT INR APTT D-Dimer ABG pH POC ABG pCO2 POC ABG pO2 ABG pO2 ABG HCO3 ABG Base Excess ABG Hemoglobin ABG Oxyhemoglobin ABG Potassium ABG Chloride ABG Glucose Oxyhemoglobin Carboxyhemoglobin Sodium Potassium Chloride Carbon Dioxide BUN Creatinine Glucose POC Glucose 136 H 186 H 175 H Calcium Phosphorus AST ALT Alkaline Phosphatase Lactate Dehydrogenase CK-MB (CK-2) CK-MB (CK-2) Rel Index Troponin T C-Reactive Protein NT-Pro-B Natriuret Pep Albumin HDL Cholesterol TSH Arterial Blood Glucose Arterial Blood Ionized Calcium Hepatitis C Antibody Crossmatch 07/21/20 07/22/20 07/22/20 10:31 07:25 10:30 WBC 3.8 L RBC 2.53 L Hgb 7.9 L Hct 24.7 L MCV 98 H RDW 18.7 H Plt Count 35 L Lymph % (Auto) [place] % (Auto) Lymph # (Auto) [place] # (Auto) Seg Neutrophils % Seg Neuts % (Manual) 92.0 H Lymphocytes % (Manual) 6.0 L Nucleated RBC % 13.0 H Seg Neutrophils # Man Lymphocytes # (Manual) 0.2 L PT INR APTT D-Dimer ABG pH POC ABG pCO2 POC ABG pO2 ABG pO2 ABG HCO3 ABG Base Excess ABG Hemoglobin ABG Oxyhemoglobin ABG Potassium ABG Chloride ABG Glucose Oxyhemoglobin Carboxyhemoglobin Sodium Potassium 5.3 H 5.6 H Chloride 115.0 H 115.1 H Carbon Dioxide 18 L BUN 59 H 61 H Creatinine 4.3 H 4.6 H Glucose 109 H POC Glucose Calcium 7.6 L 7.6 L Phosphorus AST ALT Alkaline Phosphatase Lactate Dehydrogenase CK-MB (CK-2) CK-MB (CK-2) Rel Index Troponin T C-Reactive Protein NT-Pro-B Natriuret Pep Albumin HDL Cholesterol TSH Arterial Blood Glucose Arterial Blood Ionized Calcium Hepatitis C Antibody Crossmatch 07/22/20 07/22/20 07/22/20 10:30 10:30 10:30 WBC RBC Hgb Hct MCV RDW Plt Count Lymph % (Auto) [place] % (Auto) Lymph # (Auto) [place] # (Auto) Seg Neutrophils % Seg Neuts % (Manual) Lymphocytes % (Manual) Nucleated RBC % Seg Neutrophils # Man Lymphocytes # (Manual) PT 15.9 H INR 1.27 H APTT 38.3 H D-Dimer ABG pH POC ABG pCO2 POC ABG pO2 ABG pO2 ABG HCO3 ABG Base Excess ABG Hemoglobin ABG Oxyhemoglobin ABG Potassium ABG Chloride ABG Glucose Oxyhemoglobin Carboxyhemoglobin Sodium 146 H Potassium 5.4 H Chloride 116.4 H Carbon Dioxide BUN 61 H Creatinine 4.6 H Glucose 115 H POC Glucose Calcium 7.5 L Phosphorus 5.80 H AST 66 H ALT < 5 L Alkaline Phosphatase 604 H Lactate Dehydrogenase CK-MB (CK-2) 10.9 H CK-MB (CK-2) Rel Index 16.2 H Troponin T 0.047 H C-Reactive Protein NT-Pro-B Natriuret Pep Albumin 2.1 L HDL Cholesterol TSH Arterial Blood Glucose Arterial Blood Ionized Calcium Hepatitis C Antibody Crossmatch 07/22/20 07/23/20 07/23/20 11:10 03:38 03:47 WBC RBC Hgb Hct MCV RDW Plt Count Lymph % (Auto) [place] % (Auto) Lymph # (Auto) [place] # (Auto) Seg Neutrophils % Seg Neuts % (Manual) Lymphocytes % (Manual) Nucleated RBC % Seg Neutrophils # Man Lymphocytes # (Manual) PT INR APTT D-Dimer ABG pH 7.203 L POC ABG pCO2 48.7 H 29.7 L POC ABG pO2 80.6 L 267.3 H ABG pO2 ABG HCO3 ABG Base Excess ABG Hemoglobin 8.6 L 8.2 L ABG Oxyhemoglobin 91.1 L 98.2 H ABG Potassium 5.4 H 5.4 H ABG Chloride 122.0 H 122.0 H ABG Glucose 105 H 101 H Oxyhemoglobin Carboxyhemoglobin 2.0 H Sodium Potassium Chloride Carbon Dioxide BUN Creatinine Glucose POC Glucose 65 L Calcium Phosphorus AST ALT Alkaline Phosphatase Lactate Dehydrogenase CK-MB (CK-2) CK-MB (CK-2) Rel Index Troponin T C-Reactive Protein NT-Pro-B Natriuret Pep Albumin HDL Cholesterol TSH Arterial Blood Glucose 105 H 101 H Arterial Blood Ionized Calcium 4.5 L 4.4 L Hepatitis C Antibody Crossmatch 07/23/20 07/23/20 07/23/20 06:05 06:05 06:27 WBC RBC 2.36 L Hgb 7.5 L Hct 22.7 L MCV 96 H RDW 18.9 H Plt Count 42 L Lymph % (Auto) Mitchell % (Auto) Lymph # (Auto) [place] # (Auto) Seg Neutrophils % Seg Neuts % (Manual) Lymphocytes % (Manual) Nucleated RBC % Seg Neutrophils # Man Lymphocytes # (Manual) PT INR APTT D-Dimer ABG pH POC ABG pCO2 POC ABG pO2 ABG pO2 ABG HCO3 ABG Base Excess ABG Hemoglobin ABG Oxyhemoglobin ABG Potassium ABG Chloride ABG Glucose Oxyhemoglobin Carboxyhemoglobin Sodium Potassium 5.6 H Chloride 114.1 H Carbon Dioxide 17 L BUN 62 H Creatinine 5.1 H Glucose 215 H POC Glucose 114 H Calcium 7.3 L Phosphorus AST ALT Alkaline Phosphatase Lactate Dehydrogenase CK-MB (CK-2) CK-MB (CK-2) Rel Index Troponin T C-Reactive Protein NT-Pro-B Natriuret Pep Albumin HDL Cholesterol TSH Arterial Blood Glucose Arterial Blood Ionized Calcium Hepatitis C Antibody Crossmatch 07/23/20 07/23/20 07/24/20 11:36 19:20 04:00 WBC RBC Hgb Hct MCV RDW Plt Count Lymph % (Auto) Mitchell % (Auto) Lymph # (Auto) [place] # (Auto) Seg Neutrophils % Seg Neuts % (Manual) Lymphocytes % (Manual) Nucleated RBC % Seg Neutrophils # Man Lymphocytes # (Manual) PT INR APTT D-Dimer ABG pH POC ABG pCO2 POC ABG pO2 ABG pO2 ABG HCO3 ABG Base Excess ABG Hemoglobin ABG Oxyhemoglobin ABG Potassium ABG Chloride ABG Glucose Oxyhemoglobin Carboxyhemoglobin Sodium Potassium Chloride 110.8 H Carbon Dioxide BUN 47 H Creatinine 4.4 H Glucose POC Glucose 66 L Calcium 7.3 L Phosphorus AST ALT Alkaline Phosphatase Lactate Dehydrogenase CK-MB (CK-2) CK-MB (CK-2) Rel Index Troponin T C-Reactive Protein NT-Pro-B Natriuret Pep Albumin HDL Cholesterol TSH Arterial Blood Glucose Arterial Blood Ionized Calcium Hepatitis C Antibody Reactive A Crossmatch 07/24/20 07/24/20 07/24/20 04:25 11:37 Unknown WBC RBC 2.36 L Hgb 7.5 L Hct 22.5 L MCV 95 H RDW 18.4 H Plt Count 38 L Lymph % (Auto) [place] % (Auto) Lymph # (Auto) [place] # (Auto) Seg Neutrophils % Seg Neuts % (Manual) Lymphocytes % (Manual) Nucleated RBC % Seg Neutrophils # Man Lymphocytes # (Manual) PT INR APTT D-Dimer ABG pH POC ABG pCO2 POC ABG pO2 64.8 L ABG pO2 ABG HCO3 ABG Base Excess ABG Hemoglobin 7.9 L ABG Oxyhemoglobin ABG Potassium ABG Chloride 114.0 H ABG Glucose Oxyhemoglobin Carboxyhemoglobin Sodium Potassium Chloride Carbon Dioxide BUN Creatinine Glucose POC Glucose 109 H Calcium Phosphorus AST ALT Alkaline Phosphatase Lactate Dehydrogenase CK-MB (CK-2) CK-MB (CK-2) Rel Index Troponin T C-Reactive Protein NT-Pro-B Natriuret Pep Albumin HDL Cholesterol TSH Arterial Blood Glucose Arterial Blood Ionized Calcium 4.2 L Hepatitis C Antibody Crossmatch 07/25/20 07/25/20 07/25/20 00:12 03:57 04:00 WBC RBC Hgb Hct MCV RDW Plt Count Lymph % (Auto) [place] % (Auto) Lymph # (Auto) [place] # (Auto) Seg Neutrophils % Seg Neuts % (Manual) Lymphocytes % (Manual) Nucleated RBC % Seg Neutrophils # Man Lymphocytes # (Manual) PT INR APTT D-Dimer ABG pH 7.497 H POC ABG pCO2 POC ABG pO2 62.7 L ABG pO2 ABG HCO3 ABG Base Excess ABG Hemoglobin 8.5 L ABG Oxyhemoglobin 90.1 L ABG Potassium ABG Chloride 110.0 H ABG Glucose 157 H Oxyhemoglobin Carboxyhemoglobin Sodium Potassium Chloride Carbon Dioxide BUN 38 H Creatinine 4.1 H Glucose 160 H POC Glucose 140 H Calcium 7.9 L Phosphorus AST ALT Alkaline Phosphatase Lactate Dehydrogenase CK-MB (CK-2) CK-MB (CK-2) Rel Index Troponin T C-Reactive Protein NT-Pro-B Natriuret Pep Albumin HDL Cholesterol TSH Arterial Blood Glucose 157 H Arterial Blood Ionized Calcium 4.3 L Hepatitis C Antibody Crossmatch 07/25/20 07/25/20 07/25/20 04:00 06:24 12:11 WBC RBC 2.48 L Hgb 7.7 L Hct 23.2 L MCV RDW 18.4 H Plt Count 44 L Lymph % (Auto) Mitchell % (Auto) 8.5 H Lymph # (Auto) [place] # (Auto) Seg Neutrophils % 76.7 H Seg Neuts % (Manual) Lymphocytes % (Manual) Nucleated RBC % Seg Neutrophils # Man Lymphocytes # (Manual) PT INR APTT D-Dimer ABG pH POC ABG pCO2 POC ABG pO2 ABG pO2 ABG HCO3 ABG Base Excess ABG Hemoglobin ABG Oxyhemoglobin ABG Potassium ABG Chloride ABG Glucose Oxyhemoglobin Carboxyhemoglobin Sodium Potassium Chloride Carbon Dioxide BUN Creatinine Glucose POC Glucose 155 H 205 H Calcium Phosphorus AST ALT Alkaline Phosphatase Lactate Dehydrogenase CK-MB (CK-2) CK-MB (CK-2) Rel Index Troponin T C-Reactive Protein NT-Pro-B Natriuret Pep Albumin HDL Cholesterol TSH Arterial Blood Glucose Arterial Blood Ionized Calcium Hepatitis C Antibody Crossmatch 07/25/20 07/26/20 07/26/20 17:41 00:18 03:54 WBC RBC Hgb Hct MCV RDW Plt Count Lymph % (Auto) [place] % (Auto) Lymph # (Auto) [place] # (Auto) Seg Neutrophils % Seg Neuts % (Manual) Lymphocytes % (Manual) Nucleated RBC % Seg Neutrophils # Man Lymphocytes # (Manual) PT INR APTT D-Dimer ABG pH 7.512 H POC ABG pCO2 POC ABG pO2 ABG pO2 121.2 H ABG HCO3 27.1 H ABG Base Excess 3.6 H ABG Hemoglobin < 5.1 L ABG Oxyhemoglobin ABG Potassium ABG Chloride ABG Glucose Oxyhemoglobin Carboxyhemoglobin Sodium Potassium Chloride Carbon Dioxide BUN Creatinine Glucose POC Glucose 227 H 198 H Calcium Phosphorus AST ALT Alkaline Phosphatase Lactate Dehydrogenase CK-MB (CK-2) CK-MB (CK-2) Rel Index Troponin T C-Reactive Protein NT-Pro-B Natriuret Pep Albumin HDL Cholesterol TSH Arterial Blood Glucose Arterial Blood Ionized Calcium Hepatitis C Antibody Crossmatch 07/26/20 07/26/20 07/26/20 06:31 07:00 12:09 WBC RBC 2.33 L Hgb 7.4 L Hct 21.6 L MCV RDW 18.0 H Plt Count 50 L Lymph % (Auto) 13.0 L [place] % (Auto) Lymph # (Auto) Mitchell # (Auto) Seg Neutrophils % 79.8 H Seg Neuts % (Manual) Lymphocytes % (Manual) Nucleated RBC % Seg Neutrophils # Man Lymphocytes # (Manual) PT INR APTT D-Dimer ABG pH POC ABG pCO2 POC ABG pO2 ABG pO2 ABG HCO3 ABG Base Excess ABG Hemoglobin ABG Oxyhemoglobin ABG Potassium ABG Chloride ABG Glucose Oxyhemoglobin Carboxyhemoglobin Sodium Potassium Chloride Carbon Dioxide BUN Creatinine Glucose POC Glucose 223 H 250 H Calcium Phosphorus AST ALT Alkaline Phosphatase Lactate Dehydrogenase CK-MB (CK-2) CK-MB (CK-2) Rel Index Troponin T C-Reactive Protein NT-Pro-B Natriuret Pep Albumin HDL Cholesterol TSH Arterial Blood Glucose Arterial Blood Ionized Calcium Hepatitis C Antibody Crossmatch 07/26/20 07/26/20 07/27/20 17:40 23:26 05:20 WBC RBC Hgb Hct MCV RDW Plt Count Lymph % (Auto) [place] % (Auto) Lymph # (Auto) [place] # (Auto) Seg Neutrophils % Seg Neuts % (Manual) Lymphocytes % (Manual) Nucleated RBC % Seg Neutrophils # Man Lymphocytes # (Manual) PT INR APTT D-Dimer ABG pH 7.520 H POC ABG pCO2 POC ABG pO2 ABG pO2 64.2 L ABG HCO3 26.8 H ABG Base Excess 3.7 H ABG Hemoglobin 7.2 L ABG Oxyhemoglobin ABG Potassium ABG Chloride ABG Glucose Oxyhemoglobin 93.2 L Carboxyhemoglobin Sodium Potassium Chloride Carbon Dioxide BUN Creatinine Glucose POC Glucose 226 H 176 H Calcium Phosphorus AST ALT Alkaline Phosphatase Lactate Dehydrogenase CK-MB (CK-2) CK-MB (CK-2) Rel Index Troponin T C-Reactive Protein NT-Pro-B Natriuret Pep Albumin HDL Cholesterol TSH Arterial Blood Glucose Arterial Blood Ionized Calcium Hepatitis C Antibody Crossmatch 07/27/20 07/27/20 07/27/20 05:42 06:36 06:36 WBC RBC 2.23 L Hgb 7.0 L Hct 20.7 L MCV RDW 18.4 H Plt Count 56 L Lymph % (Auto) [place] % (Auto) Lymph # (Auto) [place] # (Auto) Seg Neutrophils % Seg Neuts % (Manual) 88.0 H Lymphocytes % (Manual) 11.0 L Nucleated RBC % 2.0 H Seg Neutrophils # Man 8.9 H Lymphocytes # (Manual) 1.1 L PT INR APTT D-Dimer ABG pH POC ABG pCO2 POC ABG pO2 ABG pO2 ABG HCO3 ABG Base Excess ABG Hemoglobin ABG Oxyhemoglobin ABG Potassium ABG Chloride ABG Glucose Oxyhemoglobin Carboxyhemoglobin Sodium Potassium Chloride Carbon Dioxide BUN 43 H Creatinine 4.4 H Glucose 162 H POC Glucose 142 H Calcium 8.2 L Phosphorus AST ALT Alkaline Phosphatase Lactate Dehydrogenase CK-MB (CK-2) CK-MB (CK-2) Rel Index Troponin T C-Reactive Protein NT-Pro-B Natriuret Pep Albumin HDL Cholesterol TSH Arterial Blood Glucose Arterial Blood Ionized Calcium Hepatitis C Antibody Crossmatch 07/27/20 07/27/20 07/27/20 11:42 17:37 23:15 WBC RBC Hgb Hct MCV RDW Plt Count Lymph % (Auto) [place] % (Auto) Lymph # (Auto) [place] # (Auto) Seg Neutrophils % Seg Neuts % (Manual) Lymphocytes % (Manual) Nucleated RBC % Seg Neutrophils # Man Lymphocytes # (Manual) PT INR APTT D-Dimer ABG pH POC ABG pCO2 POC ABG pO2 ABG pO2 ABG HCO3 ABG Base Excess ABG Hemoglobin ABG Oxyhemoglobin ABG Potassium ABG Chloride ABG Glucose Oxyhemoglobin Carboxyhemoglobin Sodium Potassium Chloride Carbon Dioxide BUN Creatinine Glucose POC Glucose 134 H 169 H 173 H Calcium Phosphorus AST ALT Alkaline Phosphatase Lactate Dehydrogenase CK-MB (CK-2) CK-MB (CK-2) Rel Index Troponin T C-Reactive Protein NT-Pro-B Natriuret Pep Albumin HDL Cholesterol TSH Arterial Blood Glucose Arterial Blood Ionized Calcium Hepatitis C Antibody Crossmatch 07/28/20 07/28/20 07/28/20 04:00 05:14 10:15 WBC RBC 2.13 L Hgb 6.8 L Hct 19.9 L* MCV RDW 18.4 H Plt Count 55 L Lymph % (Auto) [place] % (Auto) 9.1 H Lymph # (Auto) [place] # (Auto) 0.9 H Seg Neutrophils % 74.5 H Seg Neuts % (Manual) Lymphocytes % (Manual) Nucleated RBC % Seg Neutrophils # Man Lymphocytes # (Manual) PT INR APTT D-Dimer ABG pH POC ABG pCO2 POC ABG pO2 ABG pO2 ABG HCO3 ABG Base Excess ABG Hemoglobin ABG Oxyhemoglobin ABG Potassium ABG Chloride ABG Glucose Oxyhemoglobin Carboxyhemoglobin Sodium Potassium Chloride Carbon Dioxide BUN Creatinine Glucose POC Glucose 169 H Calcium Phosphorus AST ALT Alkaline Phosphatase Lactate Dehydrogenase CK-MB (CK-2) CK-MB (CK-2) Rel Index Troponin T C-Reactive Protein NT-Pro-B Natriuret Pep Albumin HDL Cholesterol TSH Arterial Blood Glucose Arterial Blood Ionized Calcium Hepatitis C Antibody Crossmatch See Detail 07/28/20 07/28/2007/28/21 11:32 17:28 23:58 WBC RBC Hgb Hct MCV RDW Plt Count Lymph % (Auto) [place] % (Auto) Lymph # (Auto) [place] # (Auto) Seg Neutrophils % Seg Neuts % (Manual) Lymphocytes % (Manual) Nucleated RBC % Seg Neutrophils # Man Lymphocytes # (Manual) PT INR APTT D-Dimer ABG pH POC ABG pCO2 POC ABG pO2 ABG pO2 ABG HCO3 ABG Base Excess ABG Hemoglobin ABG Oxyhemoglobin ABG Potassium ABG Chloride ABG Glucose Oxyhemoglobin Carboxyhemoglobin Sodium Potassium Chloride Carbon Dioxide BUN Creatinine Glucose POC Glucose 185 H 208 H 227 H Calcium Phosphorus AST ALT Alkaline Phosphatase Lactate Dehydrogenase CK-MB (CK-2) CK-MB (CK-2) Rel Index Troponin T C-Reactive Protein NT-Pro-B Natriuret Pep Albumin HDL Cholesterol TSH Arterial Blood Glucose Arterial Blood Ionized Calcium Hepatitis C Antibody Crossmatch 07/29/20 07/29/20 07/29/20 05:37 12:04 17:11 WBC RBC Hgb Hct MCV RDW Plt Count Lymph % (Auto) [place] % (Auto) Lymph # (Auto) [place] # (Auto) Seg Neutrophils % Seg Neuts % (Manual) Lymphocytes % (Manual) Nucleated RBC % Seg Neutrophils # Man Lymphocytes # (Manual) PT INR APTT D-Dimer ABG pH POC ABG pCO2 POC ABG pO2 ABG pO2 ABG HCO3 ABG Base Excess ABG Hemoglobin ABG Oxyhemoglobin ABG Potassium ABG Chloride ABG Glucose Oxyhemoglobin Carboxyhemoglobin Sodium Potassium Chloride Carbon Dioxide BUN Creatinine Glucose POC Glucose 225 H 201 H 185 H Calcium Phosphorus AST ALT Alkaline Phosphatase Lactate Dehydrogenase CK-MB (CK-2) CK-MB (CK-2) Rel Index Troponin T C-Reactive Protein NT-Pro-B Natriuret Pep Albumin HDL Cholesterol TSH Arterial Blood Glucose Arterial Blood Ionized Calcium Hepatitis C Antibody Crossmatch 07/29/20 07/30/20 23:48 05:38 WBC RBC Hgb Hct MCV RDW Plt Count Lymph % (Auto) Mitchell % (Auto) Lymph # (Auto) Mitchell # (Auto) Seg Neutrophils % Seg Neuts % (Manual) Lymphocytes % (Manual) Nucleated RBC % Seg Neutrophils # Man Lymphocytes # (Manual) PT INR APTT D-Dimer ABG pH POC ABG pCO2 POC ABG pO2 ABG pO2 ABG HCO3 ABG Base Excess ABG Hemoglobin ABG Oxyhemoglobin ABG Potassium ABG Chloride ABG Glucose Oxyhemoglobin Carboxyhemoglobin Sodium Potassium Chloride Carbon Dioxide BUN Creatinine Glucose POC Glucose 209 H 205 H Calcium Phosphorus AST ALT Alkaline Phosphatase Lactate Dehydrogenase CK-MB (CK-2) CK-MB (CK-2) Rel Index Troponin T C-Reactive Protein NT-Pro-B Natriuret Pep Albumin HDL Cholesterol TSH Arterial Blood Glucose Arterial Blood Ionized Calcium Hepatitis C Antibody Crossmatch Allied health notes reviewed: nursing
[2020-07-30 10:25] LABS: Platelet Count 54 K/mm3 (140-440); Red Cell Distribution Width 20.5 % (13.2-15.2)
[2020-07-30 10:41] LABS: Calcium 8.4 mg/dL (8.4-10.2)
--- NOTE | 2020-07-30 13:48 | Progress Note ---
Assessment and Plan Cont present cardiac management. Consider addition of BB in setting of CMP if HR and BPs permit. No ACEI/ARB at this time in setting of renal insufficiency requiring HD. Can consider ischemic evaluation for further investigation of CMP etiology once medically stabilized. Cont volume and electrolyte management per nephrology/HD. Persistent anemia and thrombocytopenia noted - further eval/management per primary and critical care teams. The patient has been seen in conjunction with Dr. Thomason who agrees with the assessment and plan of care. - Patient Problems (1) Acute on chronic renal failure Current Visit: Yes Status: Acute Qualifiers: Acute renal failure type: unspecified Chronic kidney disease stage: stage 3 (moderate) Chronic kidney disease stage 3 subtype: stage 3a (GFR 45-59) Qualified Code(s): N17.9 - Acute kidney failure, unspecified; N18.31 - Chronic kidney disease, stage 3a (2) Anasarca Current Visit: Yes Status: Acute (3) Acute respiratory failure Current Visit: Yes Status: Acute Qualifiers: Respiratory failure complication: hypoxia Qualified Code(s): J96.01 - Acute respiratory failure with hypoxia (4) Altered mental status Current Visit: Yes Status: Acute (5) Hyperkalemia Current Visit: Yes Status: Acute (6) Sepsis Current Visit: Yes Status: Suspected Qualifiers: Sepsis type: sepsis due to unspecified organism Sepsis acute organ dysfunction status: with acute organ dysfunction Severe sepsis acute organ dysfunction type: acute renal failure Acute renal failure type: unspecified Severe sepsis shock status: without septic shock Qualified Code(s): A41.9 - Sepsis, unspecified organism; R65.20 - Severe sepsis without septic shock; N17.9 - Acute kidney failure, unspecified (7) Sinus bradycardia Current Visit: Yes Status: Acute (8) Hypotension Current Visit: Yes Status: Acute (9) Acute HFrEF (heart failure with reduced ejection fraction) Current Visit: Yes Status: Acute (10) Cardiomyopathy Current Visit: Yes Status: Chronic Qualifiers: Cardiomyopathy type: unspecified Qualified Code(s): I42.9 - Cardiomyopathy, unspecified (11) History of ETOH abuse Current Visit: Yes Status: Chronic (12) History of cocaine use Current Visit: Yes Status: Chronic (13) Cellulitis of right lower extremity Current Visit: Yes Status: Acute (14) Diabetes Current Visit: Yes Status: Chronic (15) History of CVA (cerebrovascular accident) Current Visit: Yes Status: Acute (16) Anemia Current Visit: Yes Status: Chronic Qualifiers: Anemia type: unspecified type Qualified Code(s): D64.9 - Anemia, unspecified (17) Thrombocytopenia Current Visit: Yes Status: Acute (18) Hepatitis C Current Visit: Yes Status: Chronic (19) Elevated troponin Current Visit: Yes Status: Acute Subjective Date of service: 07/30/20 Principal diagnosis: RACQUEL Interval history: pt remains intubated, unresponsive. currently weaned off vasopressors. tele reviewed - in SR with HR 60s, no events noted overnight. Objective Last Vital Signs Temp 97.6 F 07/30/20 04:00 Pulse 62 07/30/20 13:28 Resp 15 07/30/20 12:00 BP 110/52 07/30/20 13:28 Pulse Ox 95 07/30/20 12:00 - Physical Examination General: Other (Intubated, unresponsive) HEENT: Positive: Other (Intubated, Sedated) Neck: Positive: neck supple Cardiac: Positive: Reg Rate and Rhythm, S1/S2 Lungs: Positive: Decreased Breath Sounds, Oxygen, Ventilated Respirations Neuro: Positive: Other (Intubated, unresponsive) Abdomen: Positive: Unremarkable Skin: Negative: Rash Extremities: Present: upper extr. pulses, lower extr. pulses. Absent: edema - Labs and Meds CBC 07/30/20 Range/Units 09:05 WBC 10.1 (4.5-11.0) K/mm3 RBC 2.49 L (3.65-5.03) M/mm3 Hgb 7.7 L (11.8-15.2) gm/dl Hct 23.1 L (35.5-45.6) % Plt Count 54 L (140-440) K/mm3 Comprehensive Metabolic Panel 07/30/20 Range/Units 09:05 Sodium 135 L (137-145) mmol/L Potassium 4.1 (3.6-5.0) mmol/L Chloride 100.0 (98-107) mmol/L Carbon Dioxide 29 (22-30) mmol/L BUN 52 H (9-20) mg/dL Creatinine 4.1 H (0.8-1.3) mg/dL Glucose 236 H (75-100) mg/dL Calcium 8.4 (8.4-10.2) mg/dL - Imaging and Cardiology EKG: report reviewed, image reviewed Echo: report reviewed ((06/22/20) EF 35-40%. Mild LVH. LVSF med decreased. RVSF mildly reduced. Mild Pulm HTN. Left Atrium Mildly DIlated. Right Atrium Moderately dilated. Mild MR. Moderate TR. ) - EKG Sinus rhythms and dysrhythmias: sinus rhythm - Allied health notes Allied health notes reviewed: nursing
--- NOTE | 2020-07-30 16:24 | Cat Scan Report ---
CT head/brain wo con INDICATION: Unresponsive on vent.. TECHNIQUE: Routine CT head without contrast. All CT scans at this location are performed using CT dos e reduction for ALARA by means of automated exposure control. COMPARISON: Previous head CT on 07/21/2020 FINDINGS: BRAIN / INTRACRANIAL CONTENTS: There has been development of extensive hypoattenuation in the daiely radiata, bilateral globus palatine, and corpus callosum. There is also suspected hypoattenuation in t he bilateral dentate nuclei. There is no hemorrhage or hydrocephalus. There is stable chronic and cep halization the left frontoparietal region. ORBITS: No significant abnormality of visualized orbits. SINUSES / MASTOIDS: No significant abnormality of visualized sinuses and mastoid air cells. ADDITIONAL FINDINGS: None. IMPRESSION: 1. Interval development of extensive hypoattenuation in the cerebral white matter, corpus callosum, g lobus thalami, and probable dentate nuclei. Finding likely suggest global hypoxic ischemic injury. 2. No acute hemorrhage or adverse mass effect. Signer Name: Paulo Esteban MD Signed: 07/30/2020 4:19 PM Workstation Name: [id number]
--- NOTE | 2020-07-30 17:30 | Progress Note ---
Assessment and Plan Assessment and plan: -Acute on chronic kidney disease stage III; Vasomotor nephropathy, Nephrology initiated hemodialysis Management per nephrology, HD per schedule -Acute hypoxic respiratory failure Intubated 07/22/2020 CCM consulted, patient recommendations VAP bundle, wean as tolerated -Non-STEMI type II Likely secondary to respiratory failure, CKD Cardiology consulted, appreciate recommendations -Bradycardia, resolved Hold beta-blockers,Atropine as needed -Hyponatremia Electrolyte correction with HD -Acute toxic metabolic encephalopathy; CT head without contrast, no acute abnormality -Severe protein calorie malnutrition/hypoalbuminemia, nutrition supplements, tube feeding, nutrition consult -Thrombocytopenia HIT antibodies negative Trend CBC -Hypothermia Symptomatic treatment s/p antibiotics -h/o right calf abscess -h/o MSSA sepsis s/p Unasyn, completed 07/24 -Type 2 diabetes mellitus Blood sugars in the lower range, avoid hypoglycemia Accu-Chek sliding scale coverage ADA diet Long-acting insulin as needed, check HbA1c 8.3 last month -Acute on chronic systolic CHF EF 35 to 40% [04/2020] Continue antifailure medications Input output monitoring, diuretics Cardiology following -History of seizure disorder Seizure precautions, continue Keppra -History of CVA; with residual weakness Fall precautions, PT OT as needed -DVT prophylaxis: thrombocytopenia, no anticoagulation. Continue SCDs -GI prophylaxis: PPI The high probability of a clinically significant, sudden or life threatening deterioration of the [multi] system(s) required my full and direct attention, intervention and personal management. The aggregate critical care time was [32] minutes. This time is in addition to time spent performing reported procedures but includes the following: [x] Data Review and interpretation [x] Patient assessment and monitoring of vital signs [x] Documentation [x] Medication orders and management History Interval history: This is 65-year-old male with diabetes mellitus, chronic kidney disease, CVA with residual weakness admitted to the hospitalist service with altered level consciousness and unresponsiveness. Patient started to be in sepsis secondary to MSSA bacteremia long-term antibiotics and his renal function progressively deteriorated. Patient initially refused outpatient dialysis then went into respiratory arrest requiring intubation and mechanical ventilation and was transferred to ICU. Patient family gave consent for hemodialysis and the patient remains intubated in the ICU. [facility], nephrology, cardiology and vascular surgery were consulted for care. Sepsis Acute on chronic kidney disease stage III Acute hypoxic respiratory failure NSTEMI type II Bradycardia Hyponatremia Acute toxic metabolic encephalopathy Severe protein calorie malnutrition/hypoalbuminemia Thrombocytopenia MSSA sepsis Type 2 diabetes mellitus Acute on chronic systolic congestive heart failure, EF 30 to 45% Seizure disorder CVA 07/19/2020; unable to pass Ayala catheter, consulted urology, continue supportive care, COVID-19 test negative 07/20/2020; urology evaluation recommendation noted and appreciated. Ayala catheter was inserted by urology, draining well, MSSA bacteremia on long-term antibiotics 07/21/2020; patient is lethargic, CT head without contrast, no acute abnormality, Patient is afebrile 07/22/2020; patient had acute respiratory failure this morning. JEFFERY IBARRA was called, patient was intubated on ventilatory support, pulmonary critical consulted, family patients aunt informed 07/23/2020; patient has severe bradycardia this morning, received atropine, Cardiology following. Beta-blockers held, electrolytes corrected. Patient's heart rate improved to 50s and 60s Cardiology following. Nephrology planning hemodialysis trying to get consent from family 07/24/2020; patient received hemodialysis yesterday. Remains intubated on ventilatory support. Bradycardia significantly improved heart rate in 60s. Completed 6 weeks of Unasyn for MSSA sepsis today 07/25/2020; patient remains on ventilatory support. Receiving HD per schedule dual. Wean as tolerated and extubate 07/26/2020; patient remains on ventilatory support, wean as tolerated and extubate. Initiated hemodialysis, HD per schedule, new set of blood culture sent 07/30: No acute events reported overnight. Patient remains unresponsive without sedation in the CT head was obtained which showed interval development of extensive hypoattenuation in the cerebral white matter, corpus callosum, globus thalami and probable indented nuclei finding likely test of global hypoxic ischemic injury with no acute hemorrhage or mass-effect. We consulted neurology and ordered an EEG for further work-up. no acute events reported overnight. He remains on MV. Hospitalist Physical - Constitutional Vitals: Temp Pulse Resp BP Pulse Ox 97.6 F 73 15 154/83 100 07/30/20 04:00 07/30/20 16:00 07/30/20 16:00 07/30/20 16:00 07/30/20 16:00 General appearance: Present: no acute distress, well-nourished - EENT Eyes: Present: PERRL - Neck Neck: Absent: masses or JVD, cervical LAD - Respiratory Respiratory effort: normal Respiratory: bilateral: rales - Cardiovascular Rhythm: regular Heart Sounds: Present: S1 & S2. Absent: systolic murmur, diastolic murmur - Extremities Extremities: no ischemia, pulses intact, pulses symmetrical, No edema, normal temperature, normal color Peripheral Pulses: within normal limits - Abdominal General gastrointestinal: soft, non-tender, non-distended, normal bowel sounds - Integumentary Integumentary: Present: warm, dry - Psychiatric Psychiatric: other (minimally responsive to painful stimuli) - Neurologic Neurologic: other (Minimally responsive to painful stimuli) HEART Score - HEART Score Troponin: Troponin T 0.047 ng/mL (0.00-0.029) H 07/22/20 10:30 Results - Labs CBC & Chem 7: 07/30/20 09:05 07/30/20 09:05 Labs: Laboratory Last Values WBC 10.1 K/mm3 (4.5-11.0) 07/30/20 09:05 RBC 2.49 M/mm3 (3.65-5.03) L 07/30/20 09:05 Hgb 7.7 gm/dl (11.8-15.2) L 07/30/20 09:05 Hct 23.1 % (35.5-45.6) L 07/30/20 09:05 MCV 93 fl (84-94) 07/30/20 09:05 MCH 31 pg (28-32) 07/30/20 09:05 MCHC 33 % (32-34) 07/30/20 09:05 RDW 20.5 % (13.2-15.2) H 07/30/20 09:05 Plt Count 54 K/mm3 (140-440) L 07/30/20 09:05 Lymph % (Auto) 15.7 % (13.4-35.0) 07/28/20 04:00 [place] % (Auto) 9.1 % (0.0-7.3) H 07/28/20 04:00 Eos % (Auto) 0.4 % (0.0-4.3) 07/28/20 04:00 Baso % (Auto) 0.3 % (0.0-1.8) 07/28/20 04:00 Lymph # (Auto) 1.6 K/mm3 (1.2-5.4) 07/28/20 04:00 [place] # (Auto) 0.9 K/mm3 (0.0-0.8) H 07/28/20 04:00 Eos # (Auto) 0.0 K/mm3 (0.0-0.4) 07/28/20 04:00 Baso # (Auto) 0.0 K/mm3 (0.0-0.1) 07/28/20 04:00 Add Manual Diff Complete 07/27/20 06:36 Total Counted 100 07/27/20 06:36 Seg Neutrophils % 74.5 % (40.0-70.0) H 07/28/20 04:00 Seg Neuts % (Manual) 88.0 % (40.0-70.0) H 07/27/20 06:36 Lymphocytes % (Manual) 11.0 % (13.4-35.0) L 07/27/20 06:36 Monocytes % (Manual) 1.0 % (0.0-7.3) 07/27/20 06:36 Nucleated RBC % 2.0 % (0.0-0.9) H 07/27/20 06:36 Seg Neutrophils # 7.7 K/mm3 (1.8-7.7) 07/28/20 04:00 Seg Neutrophils # Man 8.9 K/mm3 (1.8-7.7) H 07/27/20 06:36 Band Neutrophils # 0.0 K/mm3 07/27/20 06:36 Lymphocytes # (Manual) 1.1 K/mm3 (1.2-5.4) L 07/27/20 06:36 Abs React Lymphs (Man) 0.0 K/mm3 07/27/20 06:36 Monocytes # (Manual) 0.1 K/mm3 (0.0-0.8) 07/27/20 06:36 Eosinophils # (Manual) 0.0 K/mm3 (0.0-0.4) 07/27/20 06:36 Basophils # (Manual) 0.0 K/mm3 (0.0-0.1) 07/27/20 06:36 Metamyelocytes # 0.0 K/mm3 07/27/20 06:36 Myelocytes # 0.0 K/mm3 07/27/20 06:36 Promyelocytes # 0.0 K/mm3 07/27/20 06:36 Blast Cells # 0.0 K/mm3 07/27/20 06:36 WBC Morphology Not Reportable 07/27/20 06:36 Hypersegmented Neuts Not Reportable 07/27/20 06:36 Hyposegmented Neuts Not Reportable 07/27/20 06:36 Hypogranular Neuts Not Reportable 07/27/20 06:36 Smudge Cells Not Reportable 07/27/20 06:36 Toxic Granulation Not Reportable 07/27/20 06:36 Toxic Vacuolation Not Reportable 07/27/20 06:36 Dohle Bodies Not Reportable 07/27/20 06:36 Pelger-Huet Anomaly Not Reportable 07/27/20 06:36 Clint Rods Not Reportable 07/27/20 06:36 Platelet Estimate Consistent w auto 07/27/20 06:36 Clumped Platelets Not Reportable 07/27/20 06:36 Plt Clumps, EDTA Not Reportable 07/27/20 06:36 Large Platelets Not Reportable 07/27/20 06:36 Giant Platelets Not Reportable 07/27/20 06:36 Platelet Satelliting Not Reportable 07/27/20 06:36 Plt Morphology Comment Not Reportable 07/27/20 06:36 RBC Morphology Not Reportable 07/27/20 06:36 Dimorphic RBCs Not Reportable 07/27/20 06:36 Polychromasia Not Reportable 07/27/20 06:36 Hypochromasia Not Reportable 07/27/20 06:36 Poikilocytosis Not Reportable 07/27/20 06:36 Anisocytosis Few 07/27/20 06:36 Microcytosis Not Reportable 07/27/20 06:36 Macrocytosis Not Reportable 07/27/20 06:36 Spherocytes Not Reportable 07/27/20 06:36 Pappenheimer Bodies Not Reportable 07/27/20 06:36 Sickle Cells Not Reportable 07/27/20 06:36 Target Cells Not Reportable 07/27/20 06:36 Tear Drop Cells Not Reportable 07/27/20 06:36 Ovalocytes Not Reportable 07/27/20 06:36 Helmet Cells Not Reportable 07/27/20 06:36 [place] Bodies Not Reportable 07/27/20 06:36 [place] Rings Not Reportable 07/27/20 06:36 [place] Cells Not Reportable 07/27/20 06:36 Bite Cells Not Reportable 07/27/20 06:36 Crenated Cell Not Reportable 07/27/20 06:36 Elliptocytes Not Reportable 07/27/20 06:36 Acanthocytes (Spur) Not Reportable 07/27/20 06:36 Rouleaux Not Reportable 07/27/20 06:36 Hemoglobin C Crystals Not Reportable 07/27/20 06:36 Schistocytes Rare 07/27/20 06:36 Malaria parasites Not Reportable 07/27/20 06:36 Carl Bodies Not Reportable 07/27/20 06:36 Hem Pathologist Commnt No 07/27/20 06:36 PT 15.9 Sec. (12.2-14.9) H 07/22/20 10:30 INR 1.27 (0.87-1.13) H 07/22/20 10:30 APTT 38.3 Sec. (24.2-36.6) H 07/22/20 10:30 D-Dimer 1036.46 ng/mlDDU (0-234) H 07/18/20 08:56 Heparin Anti-Xa, Unfract Negative (Negative) 07/23/20 08:54 ABG pH 7.520 pH Units (7.350-7.450) H 07/27/20 05:20 POC ABG pCO2 32.7 mmHg (32.0-48.0) 07/25/20 03:57 ABG pCO2 33.5 mm Hg 07/27/20 05:20 POC ABG pO2 62.7 mmHg (83-108) L 07/25/20 03:57 ABG pO2 64.2 mm Hg (80.0-90.0) L 07/27/20 05:20 POC ABG HCO3 24.8 07/25/20 03:57 ABG HCO3 26.8 mmol/L (20.0-26.0) H 07/27/20 05:20 ABG O2 Saturation 95.8 % (95.0-99.0) 07/27/20 05:20 ABG O2 Content 9.5 (0.0-44) 07/27/20 05:20 POC ABG Base Excess 1.7 07/25/20 03:57 ABG Base Excess 3.7 mmol/L (-2.0-3.0) H 07/27/20 05:20 ABG Hemoglobin 7.2 gm/dl (14.0-18.0) L 07/27/20 05:20 ABG Oxyhemoglobin 90.1 (94-98) L 07/25/20 03:57 ABG Carboxyhemoglobin 2.3 % (0.0-5.0) 07/27/20 05:20 ABG Methemoglobin 0.5 % (0.0-1.5) 07/27/20 05:20 ABG Sodium 138.7 mmol/L (136.0-145.0) 07/25/20 03:57 ABG Potassium 4.0 mmol/L (3.40-4.50) 07/25/20 03:57 ABG Chloride 110.0 mmol/L (98-107) H 07/25/20 03:57 ABG Glucose 157 mg/dL (65-95) H 07/25/20 03:57 Oxyhemoglobin 93.2 % (95.0-99.0) L 07/27/20 05:20 Carboxyhemoglobin 1.1 (0.5-1.5) 07/25/20 03:57 FiO2 25 % 07/27/20 05:20 FiO2 % 40 07/25/20 03:57 Sodium 135 mmol/L (137-145) L 07/30/20 09:05 Potassium 4.1 mmol/L (3.6-5.0) 07/30/20 09:05 Chloride 100.0 mmol/L (98-107) 07/30/20 09:05 Carbon Dioxide 29 mmol/L (22-30) 07/30/20 09:05 Anion Gap 10 mmol/L 07/30/20 09:05 BUN 52 mg/dL (9-20) H 07/30/20 09:05 Creatinine 4.1 mg/dL (0.8-1.3) H 07/30/20 09:05 Estimated GFR 18 ml/min 07/30/20 09:05 BUN/Creatinine Ratio 13 % 07/30/20 09:05 Glucose 236 mg/dL (75-100) H 07/30/20 09:05 POC Glucose 224 mg/dL (70-105) H 07/30/20 11:42 Lactic Acid 0.80 mmol/L (0.7-2.0) 07/18/20 08:56 Calcium 8.4 mg/dL (8.4-10.2) 07/30/20 09:05 Phosphorus 5.80 mg/dL (2.5-4.5) H 07/22/20 10:30 Magnesium 2.10 mg/dL (1.7-2.3) 07/22/20 10:30 Ferritin 198.6 ng/mL (30.0-300.0) 07/18/20 10:36 Total Bilirubin 0.30 mg/dL (0.1-1.2) 07/22/20 10:30 Direct Bilirubin 0.2 mg/dL (0-0.2) 07/19/20 06:00 Indirect Bilirubin 0.2 mg/dL 07/19/20 06:00 AST 66 units/L (5-40) H 07/22/20 10:30 ALT < 5 units/L (7-56) L 07/22/20 10:30 Alkaline Phosphatase 604 units/L (35-129) H 07/22/20 10:30 Ammonia 41.0 umol/L (25-60) 07/18/20 08:56 Lactate Dehydrogenase 212 units/L (91-180) H 07/18/20 10:36 Total Creatine Kinase 67 units/L (55-170) 07/22/20 10:30 CK-MB (CK-2) 10.9 ng/mL (0.0-4.0) H 07/22/20 10:30 CK-MB (CK-2) Rel Index 16.2 (0-4) H 07/22/20 10:30 Troponin T 0.047 ng/mL (0.00-0.029) H 07/22/20 10:30 C-Reactive Protein 2.10 mg/dL (0.00-1.30) H 07/18/20 10:36 NT-Pro-B Natriuret Pep 4777 pg/mL (0-900) H 07/18/20 08:56 Total Protein 6.4 g/dL (6.3-8.2) 07/22/20 10:30 Albumin 2.1 g/dL (3.9-5) L 07/22/20 10:30 Albumin/Globulin Ratio 0.5 % 07/22/20 10:30 Triglycerides 65 mg/dL (2-149) 07/18/20 08:56 Cholesterol 157 mg/dL (50-199) 07/18/20 08:56 LDL Cholesterol Direct 95 mg/dL (50-130) 07/18/20 08:56 HDL Cholesterol 67 mg/dL (40-59) H 07/18/20 08:56 Cholesterol/HDL Ratio 2.34 % 07/18/20 08:56 Procalcitonin 0.10 ng/mL (<0.15) 07/18/20 10:36 TSH 5.520 mlU/mL (0.270-4.200) H 07/18/20 08:56 Free T4 0.84 ng/dL (0.76-1.46) 07/18/20 08:56 Arterial Blood Glucose 157 mg/dL (65-95) H 07/25/20 03:57 Arterial Blood Ionized Calcium 4.3 mg/dL (4.6-5.3) L 07/25/20 03:57 Random Vancomycin 11.5 ug/mL (0-40.0) 07/28/20 05:00 Heparin-induced Plt Ab Negative (Negative) 07/23/20 08:54 UF Heparin High Dose 0 % Release 07/23/20 08:54 MAGEN UFH Low Dose 0.1 0 % Release 07/23/20 08:54 MAGEN UFH Low Dose 0.5 0 % Release 07/23/20 08:54 Coronavirus (PCR) Negative (Negative) 07/18/20 12:07 Hepatitis A IgM Ab Non-reactive (NonReactive) 07/23/20 19:20 Hep Bs Antigen Non-reactive (Negative) 07/23/20 19:20 Hep B Core IgM Ab Non-reactive (NonReactive) 07/23/20 19:20 Hepatitis C Antibody Reactive (NonReactive) A 07/23/20 19:20 Blood Type A POSITIVE 07/28/20 10:15 Antibody Screen Negative 07/28/20 10:15 Crossmatch See Detail 07/28/20 10:15 Microbiology: Microbiology 07/26/20 14:43 Peripheral/Venous Blood Culture - Preliminary NO GROWTH AFTER 4 DAYS 07/26/20 14:31 Peripheral/Venous Blood Culture - Preliminary NO GROWTH AFTER 4 DAYS 07/18/20 09:00 Peripheral/Venous Blood Culture - Preliminary Enterococcus Faecium Ayala/IV: Voiding Method Incontinent Active Medications - Current Medications Current Medications: Generic Name Dose Route Start Last Admin Trade Name Freq PRN Reason Stop Dose Admin Lipase/Protease/Amylase 1 each 07/23/20 14:17 Lipase 10,500/Protease 25,000/Amylase 43,750 (Units) Dr Cap FEEDTUBE PRN PRN For Clogged Feeding Tube Aspirin 81 mg 07/19/20 10:00 07/30/20 09:01 Aspirin Ec 81 Mg Tab PO 81 mg QDAY JODIE Administration Atropine Sulfate 1 mg 07/23/20 09:03 07/23/20 22:15 Atropine 0.1% (1 Mg/10 Ml) Cardiac Syringe IV 1 mg PRN PRN Administration Bradycardia Dextrose 50 ml 07/23/20 03:28 07/23/20 06:00 Dextrose 50% In Water (25gm) 50 Ml Syringe IV 50 ml Q30MIN PRN Administration Hypoglycemia Protocol Famotidine 20 mg 07/18/20 22:00 07/30/20 09:04 Famotidine 20 Mg Tab PO 20 mg DAILY JODIE Administration Fluoxetine HCl 20 mg 07/19/20 10:00 07/30/20 09:01 Fluoxetine 20 Mg Cap PO 20 mg QDAY JODIE Administration Folic Acid 1 mg 07/19/20 10:00 07/30/20 09:04 Folic Acid 1 Mg Tab PO 1 mg DAILY JODIE Administration Hydralazine HCl 50 mg 07/18/20 14:00 07/30/20 13:28 Hydralazine 25 Mg Tab PO Not Given Q8HR JODIE Hydralazine HCl 20 mg 07/22/20 14:02 Hydralazine 20 Mg/1 Ml Inj IV Q4HR PRN Blood Pressure Hydrophilic Ointment 1 applic 07/22/20 10:02 Lip Therapy Vaseline TP Q2HR PRN Dry Lips Sodium Chloride 100 mls @ 999 mls/hr 07/23/20 11:13 Nacl 0.9% IV FRANCISCO PRN Hypotension Norepinephrine 4 mg in 250 mls @ 7.5 mls/hr 07/24/20 10:00 07/24/20 15:35 Levophed Drip 4 Mg/Ns 250 Ml IV 0 mcg/min TITR JODIE 0 mls/hr Titration Protocol 2 MCG/MIN Insulin Glargine 10 units 07/30/20 22:00 Insulin Glargine 100 Units/Ml SUB-Q QHS [facility] Insulin Human Lispro 0 unit 07/26/20 10:00 07/30/20 12:21 Insulin Lispro 100 Unit/Ml SUB-Q 3 unit Q6HR JODIE Administration Protocol Levetiracetam 750 mg 07/18/20 22:00 07/30/20 09:04 Levetiracetam 500 Mg/5 Ml Oral Liqd PO 750 mg BID JODIE Administration Multi-Ingred Cream/Lotion/Oil/Oint 1 applic 07/22/20 10:02 Mineral Oil/Petrolatum, White Ophth Oint 3.5 Gm OU Q4HR PRN Dry Eye(s) Simple Syrup 15 ml 07/23/20 14:17 Simple Syrup 15 Ml FEEDTUBE PRN PRN Hypoglycemia Simple Syrup 30 ml 07/23/20 14:17 Simple Syrup 15 Ml FEEDTUBE PRN PRN Hypoglycemia Sodium Bicarbonate 325 mg 07/23/20 14:17 Sodium Bicarbonate 325 Mg Tab FEEDTUBE PRN PRN For Clogged Feeding Tube Thiamine HCl 100 mg 07/19/20 10:00 07/30/20 09:01 Thiamine 100 Mg Tab PO 100 mg QDAY JODIE Administration Trazodone HCl 50 mg 07/18/20 22:00 07/29/20 22:55 Trazodone 50 Mg Tab PO 50 mg QHS JODIE Administration Nutrition/Malnutrition Assess - Dietary Evaluation Nutrition/Malnutrition Findings: Nutrition Notes Start: 07/19/20 09: 53 Freq: Status: Active Protocol: Document 07/25/20 10:41 AL (Rec: 07/25/20 10:47 AL [id number]) Co-Sign 07/25/20 10:41 LP Nutrition Notes Initial or Follow up Reassessment Current Diagnosis CKD(stage I-IV),Diabetes, Sepsis,Heart Failure, Respiratory Failure,Stroke Other Pertinent Diagnosis Acute toxic metabolic encephalopathy, Bradycardia, ( R) LE wound, on HD Current Diet Nepro 1.8 at 42 ml/hr Labs/Tests BUN 38 Cr 4.1 POC BG 160 Pertinent Medications Reviewed Height 5 ft 9 in Weight 114.76 kg [place] Body Weight (kg) 72.72 BMI 37.3 Weight Status Obese Subjective/Other Information F/U for TF tolerance and vent satus. Pt is tolerating Nepro at 42 ml/hr (goal rate) and is still intubated. Percent of energy/protein needs met: 99%/57% Burn Absent Trauma Absent Difficulty In Swallowing Skin Integrity/Comment Diabetic ulcers to BLE Current % PO Negligible Minimum of two criteria No Fluid Accumulation Moderate to Severe (severe) #1 Nutrition Diagnosis Inadequate oral intake Diagnosis Progress(for reassessment Continues documentation) Is patient on ventilator? Yes Is Patient Ambulatory and/or Out of Bed No REE-([facility]-confined to bed) 2330.148 Kcal/Kg value to use for calculation 16 Approximate Energy Requirements Using 1836 kcal/Kg Calculation Used for Recommendations Kcal/kg Additional Notes Protein needs: >144g (>2.0 g/ kgIBW) Fluid needs 1000 - 1500 ml/day Nutrition Intervention Change Diet Order: TF Nutrition Support: Nepro at 42 ml/h with a free water flush of 125 ml q4h. Kcal 1,814 Protein (gm) 82 Fluid (mL) 733 Goal #1 TF tolerane Goal #2 Meet at estimated energy and protein needs as best as possible. Anticipated Discharge Needs: Unable to determine at this time Follow-Up By: 08/01/20 Additional Comments F/U for stable TF tolerance
[2020-07-30] MEDS: traZODone 50 MG TAB PO SCH (22:00)
[2020-07-30] MEDS: INSULIN GLARGINE 100 UNITS/ML SUB-Q SCH (22:25)
[2020-07-31 05:40] LABS: Hematocrit 22.6 % (35.5-45.6); Hemoglobin 7.6 gm/dl (11.8-15.2); Mean Corpuscular HGB Conc 34 % (32-34); Mean Corpuscular Volume 92 fl (84-94); Red Blood Count 2.46 M/mm3 (3.65-5.03); Red Cell Distribution Width 19.4 % (13.2-15.2)
[2020-07-31 05:41] LABS: Platelet Count 77 K/mm3 (140-440)
[2020-07-31] MEDS: hydrALAZINE 25 MG TAB PO SCH ×3 (05:53→21:05)
[2020-07-31] MEDS: INSULIN LISPRO 100 UNIT/ML SUB-Q SCH ×3 (05:59→17:28)
--- NOTE | 2020-07-31 08:17 | Progress Note ---
Assessment and Plan - Patient Problems (1) Acute on chronic renal failure Current Visit: Yes Status: Acute Qualifiers: Acute renal failure type: unspecified Chronic kidney disease stage: stage 3 (moderate) Chronic kidney disease stage 3 subtype: stage 3a (GFR 45-59) Qualified Code(s): N17.9 - Acute kidney failure, unspecified; N18.31 - Chronic kidney disease, stage 3a Plan to address problem: Patient has likely underlying chronic kidney disease stage IIIb in the setting of hypertension and diabetes. With worsening renal failure and unresponsiveness to optimal IV diuretic regimen patient was started on hemodialysis therapy. We will adjust his schedule to Thursday with sequential ultrafiltration treatments for Thursday in order to optimize his volume status. We will continue to monitor for signs of renal function and recovery. (2) Anasarca Current Visit: Yes Status: Acute Plan to address problem: Patient unfortunately did not respond well to optimal IV diuretic regimen. Secondary to persistent edema and worsening renal failure he was started on hemodialysis therapy. (3) Anemia Current Visit: Yes Status: Chronic Qualifiers: Anemia type: unspecified type Qualified Code(s): D64.9 - Anemia, unspecified Plan to address problem: Transfuse to maintain hemoglobin above 7. (4) Hyperkalemia Current Visit: Yes Status: Acute Plan to address problem: Correct with hemodialysis. (5) Sepsis Current Visit: Yes Status: Suspected Qualifiers: Sepsis type: sepsis due to unspecified organism Sepsis acute organ dysfunction status: with acute organ dysfunction Severe sepsis acute organ dysfunction type: acute renal failure Acute renal failure type: unspecified Severe sepsis shock status: without septic shock Qualified Code(s): A41.9 - Sepsis, unspecified organism; R65.20 - Severe sepsis without septic shock; N17.9 - Acute kidney failure, unspecified Plan to address problem: Please ensure that antibiotics are dosed appropriate for his decreased renal function. Off pressor support at this time. 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 Unresponsive to optimal diuretic regimen and therefore was transitioned to hemodialysis. (7) Hypertensive chronic kidney disease with stage 1 through stage 4 chronic kidney disease, or unspecified chronic kidney disease Current Visit: No Status: Acute Plan to address problem: We will hold off on all blood pressure medication at this time giving his current hemodynamic status. (8) Type 2 diabetes mellitus with diabetic nephropathy Current Visit: No Status: Acute Plan to address problem: Diabetes managed per primary attending. Subjective Date of service: 07/31/20 Principal diagnosis: RACQUEL Interval history: Patient was dialyzed yesterday with removal of 3 L ultrafiltration. Tolerated procedure well. Remains off her support at this time. Remains intubated with FiO2 of 25%. Objective - Vital Signs Vital signs: Vital Signs - 12hr 07/30/20 07/30/20 07/30/20 20:15 20:30 20:45 Temperature Pulse Rate 75 77 79 Pulse Rate [ From Monitor] Respiratory 16 Rate Respiratory Rate [Bilateral Leg] Blood Pressure 156/86 153/87 178/88 O2 Sat by Pulse 100 Oximetry O2 Sat by Pulse Oximetry [ Anterior Bilateral Throughout] 07/30/20 07/30/20 07/30/20 21:00 21:12 21:30 Temperature 97.9 F Pulse Rate 77 81 77 Pulse Rate [ From Monitor] Respiratory 16 16 16 Rate Respiratory Rate [Bilateral Leg] Blood Pressure 172/82 167/87 163/82 O2 Sat by Pulse 100 100 Oximetry O2 Sat by Pulse 94 Oximetry [ Anterior Bilateral Throughout] 07/30/20 07/30/20 07/30/20 21:50 21:59 22:00 Temperature Pulse Rate 76 79 79 Pulse Rate [ 69 From Monitor] Respiratory 15 20 Rate Respiratory 22 Rate [Bilateral Leg] Blood Pressure 158/80 138/67 O2 Sat by Pulse 100 100 Oximetry O2 Sat by Pulse Oximetry [ Anterior Bilateral Throughout] 07/30/20 07/30/20 07/30/20 22:30 23:00 23:30 Temperature Pulse Rate 76 74 74 Pulse Rate [ From Monitor] Respiratory 19 16 17 Rate Respiratory Rate [Bilateral Leg] Blood Pressure 128/71 125/62 126/66 O2 Sat by Pulse 100 100 100 Oximetry O2 Sat by Pulse Oximetry [ Anterior Bilateral Throughout] 07/30/20 07/30/20 07/31/20 23:33 23:40 00:00 Temperature 97.2 F L Pulse Rate 75 72 79 Pulse Rate [ From Monitor] Respiratory 17 17 Rate Respiratory Rate [Bilateral Leg] Blood Pressure 126/66 126/66 139/71 O2 Sat by Pulse 100 100 100 Oximetry O2 Sat by Pulse Oximetry [ Anterior Bilateral Throughout] 07/31/20 07/31/20 07/31/20 00:30 01:00 01:30 Temperature Pulse Rate 73 71 71 Pulse Rate [ 69 From Monitor] Respiratory 19 18 18 Rate Respiratory Rate [Bilateral Leg] Blood Pressure 127/67 127/62 123/61 O2 Sat by Pulse 100 98 100 Oximetry O2 Sat by Pulse Oximetry [ Anterior Bilateral Throughout] 07/31/20 07/31/20 07/31/20 02:00 02:30 03:00 Temperature Pulse Rate 68 68 67 Pulse Rate [ From Monitor] Respiratory 17 17 17 Rate Respiratory Rate [Bilateral Leg] Blood Pressure 119/63 115/63 117/67 O2 Sat by Pulse 99 100 100 Oximetry O2 Sat by Pulse Oximetry [ Anterior Bilateral Throughout] 07/31/20 07/31/20 07/31/20 03:10 03:30 04:00 Temperature 97.3 F L Pulse Rate 67 69 73 Pulse Rate [ 69 From Monitor] Respiratory 15 17 20 Rate Respiratory Rate [Bilateral Leg] Blood Pressure 114/65 112/76 O2 Sat by Pulse 100 93 99 Oximetry O2 Sat by Pulse Oximetry [ Anterior Bilateral Throughout] 07/31/20 07/31/20 07/31/20 04:30 05:00 05:30 Temperature Pulse Rate 65 66 66 Pulse Rate [ From Monitor] Respiratory 17 16 17 Rate Respiratory Rate [Bilateral Leg] Blood Pressure 124/68 116/65 111/63 O2 Sat by Pulse 100 99 99 Oximetry O2 Sat by Pulse Oximetry [ Anterior Bilateral Throughout] 07/31/20 07/31/20 07/31/20 05:49 05:53 06:00 Temperature Pulse Rate 66 65 Pulse Rate [ From Monitor] Respiratory 17 Rate Respiratory Rate [Bilateral Leg] Blood Pressure 111/63 117/63 O2 Sat by Pulse 100 100 Oximetry O2 Sat by Pulse Oximetry [ Anterior Bilateral Throughout] - General Appearance General appearance: appears stated age, chronically ill, sedated on ventilator, intubated EENT: ATNC Neck: no JVD Respiratory: Present: Decreased Breath Sounds Cardiology: regular, S1S2 Gastrointestinal: normal Integumentary: ulcer Neurologic: other (Sedated and intubated) Musculoskeletal: other (3+ pitting Edema ,anasarca) - Lab 07/31/20 05:10 07/30/20 09:05 Most recent lab results ABG pH 7.520 pH Units (7.350-7.450) H 07/27/20 05:20 ABG pCO2 33.5 mm Hg 07/27/20 05:20 ABG pO2 64.2 mm Hg (80.0-90.0) L 07/27/20 05:20 ABG HCO3 26.8 mmol/L (20.0-26.0) H 07/27/20 05:20 ABG O2 Saturation 95.8 % (95.0-99.0) 07/27/20 05:20 Calcium 8.4 mg/dL (8.4-10.2) 07/30/20 09:05 Phosphorus 5.80 mg/dL (2.5-4.5) H 07/22/20 10:30 Magnesium 2.10 mg/dL (1.7-2.3) 07/22/20 10:30 - Allied health notes Allied health notes reviewed: nursing Medications & Allergies - Medications Allergies/Adverse Reactions: Allergies No Known Allergies Allergy (Verified 06/19/19 17:53) Home Medications: Home Medications Medication Instructions Recorded Confirmed Last Taken Type FLUoxetine [PROzac] 20 mg PO QDAY #14 capsule 06/23/19 06/21/20 Unknown Rx traZODone [Desyrel] 50 mg PO QHS #10 tablet 06/23/19 06/21/20 Unknown Rx Folic Acid 1 mg PO DAILY #30 tablet 06/25/19 06/21/20 Unknown Rx Nicotine [Habitrol] 14 mg TD DAILY #30 patch 06/25/19 06/21/20 Unknown Rx Thiamine [Vitamin B-1] 100 mg PO QDAY #30 tablet 06/25/19 06/21/20 Unknown Rx Aspirin EC [Halfprin EC] 81 mg PO QDAY #30 tablet. 07/26/19 06/21/20 Unknown Rx levETIRAcetam [Keppra TAB] 750 mg PO BID #60 tablet 07/26/19 06/21/20 Unknown Rx Furosemide [Lasix TAB] 40 mg PO QDAY #30 tablet 04/28/20 06/21/20 Unknown Rx Famotidine [Pepcid] 20 mg PO BID #60 tablet 07/05/20 Unknown Rx Insulin NPH, Human [NovoLIN N] 5 unit SUB-Q BIDDIAB 30 Days #10 ml 07/05/20 06/21/20 Unknown Rx amLODIPine 10 mg PO QDAY #30 tablet 07/05/20 Unknown Rx carvediloL [Coreg] 12.5 mg PO BID #60 tablet 07/05/20 Unknown Rx hydrALAZINE [Apresoline TAB] 50 mg PO Q8HR #30 tablet 07/06/20 Unknown Rx Active Medications: Generic Name Dose Route Start Last Admin Trade Name Freq PRN Reason Stop Dose Admin Lipase/Protease/Amylase 1 each 07/23/20 14:17 Lipase 10,500/Protease 25,000/Amylase 43,750 (Units) Dr Shell FEEDTUBE PRN PRN For Clogged Feeding Tube Aspirin 81 mg 07/19/20 10:00 07/30/20 09:01 Aspirin Ec 81 Mg Tab PO 81 mg QDAY JODIE Administration Atropine Sulfate 1 mg 07/23/20 09:03 07/23/20 22:15 Atropine 0.1% (1 Mg/10 Ml) Cardiac Syringe IV 1 mg PRN PRN Administration Bradycardia Dextrose 50 ml 07/23/20 03:28 07/23/20 06:00 Dextrose 50% In Water (25gm) 50 Ml Syringe IV 50 ml Q30MIN PRN Administration Hypoglycemia Protocol Famotidine 20 mg 07/18/20 22:00 07/30/20 09:04 Famotidine 20 Mg Tab PO 20 mg DAILY JODIE Administration Fluoxetine HCl 20 mg 07/19/20 10:00 07/30/20 09:01 Fluoxetine 20 Mg Cap PO 20 mg QDAY JODIE Administration Folic Acid 1 mg 07/19/20 10:00 07/30/20 09:04 Folic Acid 1 Mg Tab PO 1 mg DAILY JODIE Administration Hydralazine HCl 50 mg 07/18/20 14:00 07/31/20 05:53 Hydralazine 25 Mg Tab PO Not Given Q8HR JODIE Hydralazine HCl 20 mg 07/22/20 14:02 Hydralazine 20 Mg/1 Ml Inj IV Q4HR PRN Blood Pressure Hydrophilic Ointment 1 applic 07/22/20 10:02 Lip Therapy Vaseline TP Q2HR PRN Dry Lips Sodium Chloride 100 mls @ 999 mls/hr 07/23/20 11:13 Nacl 0.9% IV FRANCISCO PRN Hypotension Norepinephrine 4 mg in 250 mls @ 7.5 mls/hr 07/24/20 10:00 07/24/20 15:35 Levophed Drip 4 Mg/Ns 250 Ml IV 0 mcg/min TITR JODIE 0 mls/hr Titration Protocol 2 MCG/MIN Insulin Glargine 10 units 07/30/20 22:00 07/30/20 22:25 Insulin Glargine 100 Units/Ml SUB-Q 10 units QHS JODIE Administration Insulin Human Lispro 0 unit 07/26/20 10:00 07/31/20 05:59 Insulin Lispro 100 Unit/Ml SUB-Q 2 unit Q6HR JODIE Administration Protocol Levetiracetam 750 mg 07/18/20 22:00 07/30/20 22:00 Levetiracetam 500 Mg/5 Ml Oral Liqd PO 750 mg BID JODIE Administration Multi-Ingred Cream/Lotion/Oil/Oint 1 applic 07/22/20 10:02 Mineral Oil/Petrolatum, White Ophth Oint 3.5 Gm OU Q4HR PRN Dry Eye(s) Simple Syrup 15 ml 07/23/20 14:17 Simple Syrup 15 Ml FEEDTUBE PRN PRN Hypoglycemia Simple Syrup 30 ml 07/23/20 14:17 Simple Syrup 15 Ml FEEDTUBE PRN PRN Hypoglycemia Sodium Bicarbonate 325 mg 07/23/20 14:17 Sodium Bicarbonate 325 Mg Tab FEEDTUBE PRN PRN For Clogged Feeding Tube Thiamine HCl 100 mg 07/19/20 10:00 07/30/20 09:01 Thiamine 100 Mg Tab PO 100 mg QDAY JODIE Administration Trazodone HCl 50 mg 07/18/20 22:00 07/30/20 22:00 Trazodone 50 Mg Tab PO 50 mg QHS JODIE Administration
[2020-07-31] MEDS ORDERED: SODIUM CHLORIDE 0.9% 100 ML IV PRN (08:21)
[2020-07-31] MEDS: levETIRAcetam 500 MG/5 ML ORAL LIQD PO SCH ×2 (09:27→21:04)
[2020-07-31] MEDS: THIAMINE 100 MG TAB PO SCH (09:28)
[2020-07-31] MEDS: FAMOTIDINE 20 MG TAB PO SCH (09:28)
[2020-07-31] MEDS: ASPIRIN EC 81 MG TAB PO SCH (09:28)
[2020-07-31] MEDS: FOLIC ACID 1 MG TAB PO SCH (09:28)
[2020-07-31] MEDS: FLUoxetine 20 MG CAP PO SCH (09:28)
--- NOTE | 2020-07-31 10:13 | Progress Note ---
Assessment and Plan 8 y/o male with acute respiratory failure secondary to worsening renal failure, volume overload and altered mental state 07/31/20: Will obtain, EEG and neuro consult. They will likely ask for MRI so will speak with family about obtaining screening form info. Continue PSV trials. HD per renal. Guarded to poor prognosis. 07/30/20: Mental state continues to prevent conventional extubation. HD per renal. Need to repeat Head CT to check for other damage. 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 Very very guarded prognosis. If repeat head CT is negative, will need neuro eval and EEG 07/27/20: Mental state continues to prevent conventional extubation. Currently stable on minimal vent settings. HD per renal, does not appear he was dialyzed yesterday so may get it today. If not more awake by tomorrow, suggest repeat head CT. Continue all other supportive measures. 07/26/20: Drop PEEP down to 6. Once more awake PSV trials. HD per renal. Appears to be helping, maybe they will dialyze again today. Prognosis still remains guarded. 1. Needs HD 2. Wean FiO2 and PEEP as tolerated 3. Guarded prognosis CCT 31 minutes. Subjective Date of service: 07/31/20 Principal diagnosis: RACQUEL Interval history: No acute events. REmains unresponsive. Head CT on yesterday was remarkable. Concerning for diffuse anoxic injury. Objective Vital Signs - 12hr 07/30/20 07/30/20 07/30/20 22:30 23:00 23:30 Temperature Pulse Rate 76 74 74 Pulse Rate [ From Monitor] Respiratory 19 16 17 Rate Blood Pressure 128/71 125/62 126/66 O2 Sat by Pulse 100 100 100 Oximetry 07/30/20 07/30/20 07/31/20 23:33 23:40 00:00 Temperature 97.2 F L Pulse Rate 75 72 79 Pulse Rate [ From Monitor] Respiratory 17 17 Rate Blood Pressure 126/66 126/66 139/71 O2 Sat by Pulse 100 100 100 Oximetry 07/31/20 07/31/20 07/31/20 00:30 01:00 01:30 Temperature Pulse Rate 73 71 71 Pulse Rate [ 69 From Monitor] Respiratory 19 18 18 Rate Blood Pressure 127/67 127/62 123/61 O2 Sat by Pulse 100 98 100 Oximetry 07/31/20 07/31/20 07/31/20 02:00 02:30 03:00 Temperature Pulse Rate 68 68 67 Pulse Rate [ From Monitor] Respiratory 17 17 17 Rate Blood Pressure 119/63 115/63 117/67 O2 Sat by Pulse 99 100 100 Oximetry 07/31/20 07/31/20 07/31/20 03:10 03:30 04:00 Temperature 97.3 F L Pulse Rate 67 69 73 Pulse Rate [ 69 From Monitor] Respiratory 15 17 20 Rate Blood Pressure 114/65 112/76 O2 Sat by Pulse 100 93 99 Oximetry 07/31/20 07/31/20 07/31/20 04:30 05:00 05:30 Temperature Pulse Rate 65 66 66 Pulse Rate [ From Monitor] Respiratory 17 16 17 Rate Blood Pressure 124/68 116/65 111/63 O2 Sat by Pulse 100 99 99 Oximetry 07/31/20 07/31/20 07/31/20 05:49 05:53 06:00 Temperature Pulse Rate 66 65 Pulse Rate [ From Monitor] Respiratory 17 Rate Blood Pressure 111/63 117/63 O2 Sat by Pulse 100 100 Oximetry 07/31/20 09:13 Temperature Pulse Rate 69 Pulse Rate [ From Monitor] Respiratory Rate Blood Pressure 133/78 O2 Sat by Pulse 100 Oximetry Constitutional: appears uncomfortable (cpap, orally intubated), other (on vent orally intubated) Eyes: non-icteric ENT: epistaxis Neck: other (large in circumference) Effort: mildly labored Ascultation: Bilateral: diminished breath sounds Neurologic: non-focal exam, unable to assess CBC and BMP: 07/31/20 05:10 07/30/20 09:05 ABG, PT/INR, D-dimer: ABG ABG pH 7.520 pH Units (7.350-7.450) H 07/27/20 05:20 POC ABG pCO2 32.7 mmHg (32.0-48.0) 07/25/20 03:57 ABG pCO2 33.5 mm Hg 07/27/20 05:20 POC ABG pO2 62.7 mmHg (83-108) L 07/25/20 03:57 ABG pO2 64.2 mm Hg (80.0-90.0) L 07/27/20 05:20 POC ABG HCO3 24.8 07/25/20 03:57 ABG O2 Saturation 95.8 % (95.0-99.0) 07/27/20 05:20 PT/INR, D-dimer PT 15.9 Sec. (12.2-14.9) H 07/22/20 10:30 INR 1.27 (0.87-1.13) H 07/22/20 10:30 D-Dimer 1036.46 ng/mlDDU (0-234) H 07/18/20 08:56 Abnormal lab findings: Abnormal Labs 07/18/20 07/18/20 07/18/20 08:56 08:56 08:56 WBC 3.5 L RBC 2.51 L Hgb 8.0 L Hct 24.5 L MCV 98 H RDW 18.3 H Plt Count 58 L Lymph % (Auto) [place] % (Auto) 11.1 H Lymph # (Auto) [place] # (Auto) Seg Neutrophils % Seg Neuts % (Manual) Lymphocytes % (Manual) Nucleated RBC % Seg Neutrophils # Man Lymphocytes # (Manual) PT INR 1.18 H APTT D-Dimer ABG pH POC ABG pCO2 POC ABG pO2 ABG pO2 ABG HCO3 ABG Base Excess ABG Hemoglobin ABG Oxyhemoglobin ABG Potassium ABG Chloride ABG Glucose Oxyhemoglobin Carboxyhemoglobin Sodium 146 H Potassium 5.2 H Chloride 117.3 H Carbon Dioxide 21 L BUN 52 H Creatinine 3.1 H Glucose 118 H POC Glucose Calcium 8.1 L Phosphorus AST ALT Alkaline Phosphatase Lactate Dehydrogenase CK-MB (CK-2) CK-MB (CK-2) Rel Index Troponin T 0.057 H C-Reactive Protein NT-Pro-B Natriuret Pep Albumin HDL Cholesterol 67 H TSH Arterial Blood Glucose Arterial Blood Ionized Calcium Hepatitis C Antibody Crossmatch 07/18/20 07/18/20 07/18/20 08:56 08:56 08:56 WBC RBC Hgb Hct MCV RDW Plt Count Lymph % (Auto) [place] % (Auto) Lymph # (Auto) [place] # (Auto) Seg Neutrophils % Seg Neuts % (Manual) Lymphocytes % (Manual) Nucleated RBC % Seg Neutrophils # Man Lymphocytes # (Manual) PT INR APTT D-Dimer 1036.46 H ABG pH POC ABG pCO2 POC ABG pO2 ABG pO2 ABG HCO3 ABG Base Excess ABG Hemoglobin ABG Oxyhemoglobin ABG Potassium ABG Chloride ABG Glucose Oxyhemoglobin Carboxyhemoglobin Sodium Potassium Chloride Carbon Dioxide BUN Creatinine Glucose POC Glucose Calcium Phosphorus AST ALT Alkaline Phosphatase Lactate Dehydrogenase CK-MB (CK-2) CK-MB (CK-2) Rel Index Troponin T C-Reactive Protein NT-Pro-B Natriuret Pep 4777 H Albumin HDL Cholesterol TSH 5.520 H Arterial Blood Glucose Arterial Blood Ionized Calcium Hepatitis C Antibody Crossmatch 07/18/20 07/18/20 07/18/20 10:36 18:56 19:00 WBC RBC Hgb Hct MCV RDW Plt Count Lymph % (Auto) [place] % (Auto) Lymph # (Auto) [place] # (Auto) Seg Neutrophils % Seg Neuts % (Manual) Lymphocytes % (Manual) Nucleated RBC % Seg Neutrophils # Man Lymphocytes # (Manual) PT INR APTT D-Dimer ABG pH POC ABG pCO2 POC ABG pO2 ABG pO2 ABG HCO3 ABG Base Excess ABG Hemoglobin ABG Oxyhemoglobin ABG Potassium ABG Chloride ABG Glucose Oxyhemoglobin Carboxyhemoglobin Sodium Potassium Chloride Carbon Dioxide BUN Creatinine Glucose 101 H POC Glucose 66 L 63 L Calcium Phosphorus AST ALT Alkaline Phosphatase Lactate Dehydrogenase 212 H CK-MB (CK-2) CK-MB (CK-2) Rel Index Troponin T C-Reactive Protein 2.10 H NT-Pro-B Natriuret Pep Albumin HDL Cholesterol TSH Arterial Blood Glucose Arterial Blood Ionized Calcium Hepatitis C Antibody Crossmatch 07/19/20 07/19/20 07/19/20 06:00 06:00 16:26 WBC 3.9 L RBC 2.34 L Hgb 7.5 L Hct 23.1 L MCV 99 H RDW 18.6 H Plt Count 52 L Lymph % (Auto) [place] % (Auto) 9.4 H Lymph # (Auto) 1.0 L [place] # (Auto) Seg Neutrophils % Seg Neuts % (Manual) Lymphocytes % (Manual) Nucleated RBC % Seg Neutrophils # Man Lymphocytes # (Manual) PT INR APTT D-Dimer ABG pH POC ABG pCO2 POC ABG pO2 ABG pO2 ABG HCO3 ABG Base Excess ABG Hemoglobin ABG Oxyhemoglobin ABG Potassium ABG Chloride ABG Glucose Oxyhemoglobin Carboxyhemoglobin Sodium Potassium 5.3 H Chloride 115.8 H Carbon Dioxide BUN 52 H Creatinine 3.4 H Glucose 114 H POC Glucose 123 H Calcium 7.7 L Phosphorus AST 77 H ALT < 5 L Alkaline Phosphatase 678 H Lactate Dehydrogenase CK-MB (CK-2) CK-MB (CK-2) Rel Index Troponin T C-Reactive Protein NT-Pro-B Natriuret Pep Albumin 2.2 L HDL Cholesterol TSH Arterial Blood Glucose Arterial Blood Ionized Calcium Hepatitis C Antibody Crossmatch 07/19/20 07/20/20 07/20/20 21:20 08:25 08:25 WBC 3.6 L RBC 2.54 L Hgb 8.0 L Hct 24.6 L MCV 97 H RDW 18.0 H Plt Count 47 L Lymph % (Auto) [place] % (Auto) 9.8 H Lymph # (Auto) 0.9 L [place] # (Auto) Seg Neutrophils % Seg Neuts % (Manual) Lymphocytes % (Manual) Nucleated RBC % Seg Neutrophils # Man Lymphocytes # (Manual) PT INR APTT D-Dimer ABG pH POC ABG pCO2 POC ABG pO2 ABG pO2 ABG HCO3 ABG Base Excess ABG Hemoglobin ABG Oxyhemoglobin ABG Potassium ABG Chloride ABG Glucose Oxyhemoglobin Carboxyhemoglobin Sodium Potassium 5.4 H Chloride 115.8 H Carbon Dioxide BUN 56 H Creatinine 3.8 H Glucose 110 H POC Glucose 142 H Calcium 7.9 L Phosphorus AST ALT Alkaline Phosphatase Lactate Dehydrogenase CK-MB (CK-2) CK-MB (CK-2) Rel Index Troponin T C-Reactive Protein NT-Pro-B Natriuret Pep Albumin HDL Cholesterol TSH Arterial Blood Glucose Arterial Blood Ionized Calcium Hepatitis C Antibody Crossmatch 07/20/20 07/20/20 07/20/20 11:27 16:34 21:27 WBC RBC Hgb Hct MCV RDW Plt Count Lymph % (Auto) [place] % (Auto) Lymph # (Auto) [place] # (Auto) Seg Neutrophils % Seg Neuts % (Manual) Lymphocytes % (Manual) Nucleated RBC % Seg Neutrophils # Man Lymphocytes # (Manual) PT INR APTT D-Dimer ABG pH POC ABG pCO2 POC ABG pO2 ABG pO2 ABG HCO3 ABG Base Excess ABG Hemoglobin ABG Oxyhemoglobin ABG Potassium ABG Chloride ABG Glucose Oxyhemoglobin Carboxyhemoglobin Sodium Potassium Chloride Carbon Dioxide BUN Creatinine Glucose POC Glucose 136 H 186 H 175 H Calcium Phosphorus AST ALT Alkaline Phosphatase Lactate Dehydrogenase CK-MB (CK-2) CK-MB (CK-2) Rel Index Troponin T C-Reactive Protein NT-Pro-B Natriuret Pep Albumin HDL Cholesterol TSH Arterial Blood Glucose Arterial Blood Ionized Calcium Hepatitis C Antibody Crossmatch 07/21/20 07/22/20 07/22/20 10:31 07:25 10:30 WBC 3.8 L RBC 2.53 L Hgb 7.9 L Hct 24.7 L MCV 98 H RDW 18.7 H Plt Count 35 L Lymph % (Auto) [place] % (Auto) Lymph # (Auto) [place] # (Auto) Seg Neutrophils % Seg Neuts % (Manual) 92.0 H Lymphocytes % (Manual) 6.0 L Nucleated RBC % 13.0 H Seg Neutrophils # Man Lymphocytes # (Manual) 0.2 L PT INR APTT D-Dimer ABG pH POC ABG pCO2 POC ABG pO2 ABG pO2 ABG HCO3 ABG Base Excess ABG Hemoglobin ABG Oxyhemoglobin ABG Potassium ABG Chloride ABG Glucose Oxyhemoglobin Carboxyhemoglobin Sodium Potassium 5.3 H 5.6 H Chloride 115.0 H 115.1 H Carbon Dioxide 18 L BUN 59 H 61 H Creatinine 4.3 H 4.6 H Glucose 109 H POC Glucose Calcium 7.6 L 7.6 L Phosphorus AST ALT Alkaline Phosphatase Lactate Dehydrogenase CK-MB (CK-2) CK-MB (CK-2) Rel Index Troponin T C-Reactive Protein NT-Pro-B Natriuret Pep Albumin HDL Cholesterol TSH Arterial Blood Glucose Arterial Blood Ionized Calcium Hepatitis C Antibody Crossmatch 07/22/20 07/22/20 07/22/20 10:30 10:30 10:30 WBC RBC Hgb Hct MCV RDW Plt Count Lymph % (Auto) [place] % (Auto) Lymph # (Auto) [place] # (Auto) Seg Neutrophils % Seg Neuts % (Manual) Lymphocytes % (Manual) Nucleated RBC % Seg Neutrophils # Man Lymphocytes # (Manual) PT 15.9 H INR 1.27 H APTT 38.3 H D-Dimer ABG pH POC ABG pCO2 POC ABG pO2 ABG pO2 ABG HCO3 ABG Base Excess ABG Hemoglobin ABG Oxyhemoglobin ABG Potassium ABG Chloride ABG Glucose Oxyhemoglobin Carboxyhemoglobin Sodium 146 H Potassium 5.4 H Chloride 116.4 H Carbon Dioxide BUN 61 H Creatinine 4.6 H Glucose 115 H POC Glucose Calcium 7.5 L Phosphorus 5.80 H AST 66 H ALT < 5 L Alkaline Phosphatase 604 H Lactate Dehydrogenase CK-MB (CK-2) 10.9 H CK-MB (CK-2) Rel Index 16.2 H Troponin T 0.047 H C-Reactive Protein NT-Pro-B Natriuret Pep Albumin 2.1 L HDL Cholesterol TSH Arterial Blood Glucose Arterial Blood Ionized Calcium Hepatitis C Antibody Crossmatch 07/22/20 07/23/20 07/23/20 11:10 03:38 03:47 WBC RBC Hgb Hct MCV RDW Plt Count Lymph % (Auto) [place] % (Auto) Lymph # (Auto) [place] # (Auto) Seg Neutrophils % Seg Neuts % (Manual) Lymphocytes % (Manual) Nucleated RBC % Seg Neutrophils # Man Lymphocytes # (Manual) PT INR APTT D-Dimer ABG pH 7.203 L POC ABG pCO2 48.7 H 29.7 L POC ABG pO2 80.6 L 267.3 H ABG pO2 ABG HCO3 ABG Base Excess ABG Hemoglobin 8.6 L 8.2 L ABG Oxyhemoglobin 91.1 L 98.2 H ABG Potassium 5.4 H 5.4 H ABG Chloride 122.0 H 122.0 H ABG Glucose 105 H 101 H Oxyhemoglobin Carboxyhemoglobin 2.0 H Sodium Potassium Chloride Carbon Dioxide BUN Creatinine Glucose POC Glucose 65 L Calcium Phosphorus AST ALT Alkaline Phosphatase Lactate Dehydrogenase CK-MB (CK-2) CK-MB (CK-2) Rel Index Troponin T C-Reactive Protein NT-Pro-B Natriuret Pep Albumin HDL Cholesterol TSH Arterial Blood Glucose 105 H 101 H Arterial Blood Ionized Calcium 4.5 L 4.4 L Hepatitis C Antibody Crossmatch 07/23/20 07/23/20 07/23/20 06:05 06:05 06:27 WBC RBC 2.36 L Hgb 7.5 L Hct 22.7 L MCV 96 H RDW 18.9 H Plt Count 42 L Lymph % (Auto) [place] % (Auto) Lymph # (Auto) [place] # (Auto) Seg Neutrophils % Seg Neuts % (Manual) Lymphocytes % (Manual) Nucleated RBC % Seg Neutrophils # Man Lymphocytes # (Manual) PT INR APTT D-Dimer ABG pH POC ABG pCO2 POC ABG pO2 ABG pO2 ABG HCO3 ABG Base Excess ABG Hemoglobin ABG Oxyhemoglobin ABG Potassium ABG Chloride ABG Glucose Oxyhemoglobin Carboxyhemoglobin Sodium Potassium 5.6 H Chloride 114.1 H Carbon Dioxide 17 L BUN 62 H Creatinine 5.1 H Glucose 215 H POC Glucose 114 H Calcium 7.3 L Phosphorus AST ALT Alkaline Phosphatase Lactate Dehydrogenase CK-MB (CK-2) CK-MB (CK-2) Rel Index Troponin T C-Reactive Protein NT-Pro-B Natriuret Pep Albumin HDL Cholesterol TSH Arterial Blood Glucose Arterial Blood Ionized Calcium Hepatitis C Antibody Crossmatch 07/23/20 07/23/20 07/24/20 11:36 19:20 04:00 WBC RBC Hgb Hct MCV RDW Plt Count Lymph % (Auto) [place] % (Auto) Lymph # (Auto) [place] # (Auto) Seg Neutrophils % Seg Neuts % (Manual) Lymphocytes % (Manual) Nucleated RBC % Seg Neutrophils # Man Lymphocytes # (Manual) PT INR APTT D-Dimer ABG pH POC ABG pCO2 POC ABG pO2 ABG pO2 ABG HCO3 ABG Base Excess ABG Hemoglobin ABG Oxyhemoglobin ABG Potassium ABG Chloride ABG Glucose Oxyhemoglobin Carboxyhemoglobin Sodium Potassium Chloride 110.8 H Carbon Dioxide BUN 47 H Creatinine 4.4 H Glucose POC Glucose 66 L Calcium 7.3 L Phosphorus AST ALT Alkaline Phosphatase Lactate Dehydrogenase CK-MB (CK-2) CK-MB (CK-2) Rel Index Troponin T C-Reactive Protein NT-Pro-B Natriuret Pep Albumin HDL Cholesterol TSH Arterial Blood Glucose Arterial Blood Ionized Calcium Hepatitis C Antibody Reactive A Crossmatch 07/24/20 07/24/20 07/24/20 04:25 11:37 Unknown WBC RBC 2.36 L Hgb 7.5 L Hct 22.5 L MCV 95 H RDW 18.4 H Plt Count 38 L Lymph % (Auto) [place] % (Auto) Lymph # (Auto) [place] # (Auto) Seg Neutrophils % Seg Neuts % (Manual) Lymphocytes % (Manual) Nucleated RBC % Seg Neutrophils # Man Lymphocytes # (Manual) PT INR APTT D-Dimer ABG pH POC ABG pCO2 POC ABG pO2 64.8 L ABG pO2 ABG HCO3 ABG Base Excess ABG Hemoglobin 7.9 L ABG Oxyhemoglobin ABG Potassium ABG Chloride 114.0 H ABG Glucose Oxyhemoglobin Carboxyhemoglobin Sodium Potassium Chloride Carbon Dioxide BUN Creatinine Glucose POC Glucose 109 H Calcium Phosphorus AST ALT Alkaline Phosphatase Lactate Dehydrogenase CK-MB (CK-2) CK-MB (CK-2) Rel Index Troponin T C-Reactive Protein NT-Pro-B Natriuret Pep Albumin HDL Cholesterol TSH Arterial Blood Glucose Arterial Blood Ionized Calcium 4.2 L Hepatitis C Antibody Crossmatch 07/25/20 07/25/20 07/25/20 00:12 03:57 04:00 WBC RBC Hgb Hct MCV RDW Plt Count Lymph % (Auto) [place] % (Auto) Lymph # (Auto) [place] # (Auto) Seg Neutrophils % Seg Neuts % (Manual) Lymphocytes % (Manual) Nucleated RBC % Seg Neutrophils # Man Lymphocytes # (Manual) PT INR APTT D-Dimer ABG pH 7.497 H POC ABG pCO2 POC ABG pO2 62.7 L ABG pO2 ABG HCO3 ABG Base Excess ABG Hemoglobin 8.5 L ABG Oxyhemoglobin 90.1 L ABG Potassium ABG Chloride 110.0 H ABG Glucose 157 H Oxyhemoglobin Carboxyhemoglobin Sodium Potassium Chloride Carbon Dioxide BUN 38 H Creatinine 4.1 H Glucose 160 H POC Glucose 140 H Calcium 7.9 L Phosphorus AST ALT Alkaline Phosphatase Lactate Dehydrogenase CK-MB (CK-2) CK-MB (CK-2) Rel Index Troponin T C-Reactive Protein NT-Pro-B Natriuret Pep Albumin HDL Cholesterol TSH Arterial Blood Glucose 157 H Arterial Blood Ionized Calcium 4.3 L Hepatitis C Antibody Crossmatch 07/25/20 07/25/20 07/25/20 04:00 06:24 12:11 WBC RBC 2.48 L Hgb 7.7 L Hct 23.2 L MCV RDW 18.4 H Plt Count 44 L Lymph % (Auto) [place] % (Auto) 8.5 H Lymph # (Auto) [place] # (Auto) Seg Neutrophils % 76.7 H Seg Neuts % (Manual) Lymphocytes % (Manual) Nucleated RBC % Seg Neutrophils # Man Lymphocytes # (Manual) PT INR APTT D-Dimer ABG pH POC ABG pCO2 POC ABG pO2 ABG pO2 ABG HCO3 ABG Base Excess ABG Hemoglobin ABG Oxyhemoglobin ABG Potassium ABG Chloride ABG Glucose Oxyhemoglobin Carboxyhemoglobin Sodium Potassium Chloride Carbon Dioxide BUN Creatinine Glucose POC Glucose 155 H 205 H Calcium Phosphorus AST ALT Alkaline Phosphatase Lactate Dehydrogenase CK-MB (CK-2) CK-MB (CK-2) Rel Index Troponin T C-Reactive Protein NT-Pro-B Natriuret Pep Albumin HDL Cholesterol TSH Arterial Blood Glucose Arterial Blood Ionized Calcium Hepatitis C Antibody Crossmatch 07/25/20 07/26/20 07/26/20 17:41 00:18 03:54 WBC RBC Hgb Hct MCV RDW Plt Count Lymph % (Auto) [place] % (Auto) Lymph # (Auto) [place] # (Auto) Seg Neutrophils % Seg Neuts % (Manual) Lymphocytes % (Manual) Nucleated RBC % Seg Neutrophils # Man Lymphocytes # (Manual) PT INR APTT D-Dimer ABG pH 7.512 H POC ABG pCO2 POC ABG pO2 ABG pO2 121.2 H ABG HCO3 27.1 H ABG Base Excess 3.6 H ABG Hemoglobin < 5.1 L ABG Oxyhemoglobin ABG Potassium ABG Chloride ABG Glucose Oxyhemoglobin Carboxyhemoglobin Sodium Potassium Chloride Carbon Dioxide BUN Creatinine Glucose POC Glucose 227 H 198 H Calcium Phosphorus AST ALT Alkaline Phosphatase Lactate Dehydrogenase CK-MB (CK-2) CK-MB (CK-2) Rel Index Troponin T C-Reactive Protein NT-Pro-B Natriuret Pep Albumin HDL Cholesterol TSH Arterial Blood Glucose Arterial Blood Ionized Calcium Hepatitis C Antibody Crossmatch 07/26/20 07/26/20 07/26/20 06:31 07:00 12:09 WBC RBC 2.33 L Hgb 7.4 L Hct 21.6 L MCV RDW 18.0 H Plt Count 50 L Lymph % (Auto) 13.0 L [place] % (Auto) Lymph # (Auto) [place] # (Auto) Seg Neutrophils % 79.8 H Seg Neuts % (Manual) Lymphocytes % (Manual) Nucleated RBC % Seg Neutrophils # Man Lymphocytes # (Manual) PT INR APTT D-Dimer ABG pH POC ABG pCO2 POC ABG pO2 ABG pO2 ABG HCO3 ABG Base Excess ABG Hemoglobin ABG Oxyhemoglobin ABG Potassium ABG Chloride ABG Glucose Oxyhemoglobin Carboxyhemoglobin Sodium Potassium Chloride Carbon Dioxide BUN Creatinine Glucose POC Glucose 223 H 250 H Calcium Phosphorus AST ALT Alkaline Phosphatase Lactate Dehydrogenase CK-MB (CK-2) CK-MB (CK-2) Rel Index Troponin T C-Reactive Protein NT-Pro-B Natriuret Pep Albumin HDL Cholesterol TSH Arterial Blood Glucose Arterial Blood Ionized Calcium Hepatitis C Antibody Crossmatch 07/26/20 07/26/20 07/27/20 17:40 23:26 05:20 WBC RBC Hgb Hct MCV RDW Plt Count Lymph % (Auto) [place] % (Auto) Lymph # (Auto) [place] # (Auto) Seg Neutrophils % Seg Neuts % (Manual) Lymphocytes % (Manual) Nucleated RBC % Seg Neutrophils # Man Lymphocytes # (Manual) PT INR APTT D-Dimer ABG pH 7.520 H POC ABG pCO2 POC ABG pO2 ABG pO2 64.2 L ABG HCO3 26.8 H ABG Base Excess 3.7 H ABG Hemoglobin 7.2 L ABG Oxyhemoglobin ABG Potassium ABG Chloride ABG Glucose Oxyhemoglobin 93.2 L Carboxyhemoglobin Sodium Potassium Chloride Carbon Dioxide BUN Creatinine Glucose POC Glucose 226 H 176 H Calcium Phosphorus AST ALT Alkaline Phosphatase Lactate Dehydrogenase CK-MB (CK-2) CK-MB (CK-2) Rel Index Troponin T C-Reactive Protein NT-Pro-B Natriuret Pep Albumin HDL Cholesterol TSH Arterial Blood Glucose Arterial Blood Ionized Calcium Hepatitis C Antibody Crossmatch 07/27/20 07/27/20 07/27/20 05:42 06:36 06:36 WBC RBC 2.23 L Hgb 7.0 L Hct 20.7 L MCV RDW 18.4 H Plt Count 56 L Lymph % (Auto) [place] % (Auto) Lymph # (Auto) [place] # (Auto) Seg Neutrophils % Seg Neuts % (Manual) 88.0 H Lymphocytes % (Manual) 11.0 L Nucleated RBC % 2.0 H Seg Neutrophils # Man 8.9 H Lymphocytes # (Manual) 1.1 L PT INR APTT D-Dimer ABG pH POC ABG pCO2 POC ABG pO2 ABG pO2 ABG HCO3 ABG Base Excess ABG Hemoglobin ABG Oxyhemoglobin ABG Potassium ABG Chloride ABG Glucose Oxyhemoglobin Carboxyhemoglobin Sodium Potassium Chloride Carbon Dioxide BUN 43 H Creatinine 4.4 H Glucose 162 H POC Glucose 142 H Calcium 8.2 L Phosphorus AST ALT Alkaline Phosphatase Lactate Dehydrogenase CK-MB (CK-2) CK-MB (CK-2) Rel Index Troponin T C-Reactive Protein NT-Pro-B Natriuret Pep Albumin HDL Cholesterol TSH Arterial Blood Glucose Arterial Blood Ionized Calcium Hepatitis C Antibody Crossmatch 07/27/20 07/27/20 07/27/20 11:42 17:37 23:15 WBC RBC Hgb Hct MCV RDW Plt Count Lymph % (Auto) [place] % (Auto) Lymph # (Auto) [place] # (Auto) Seg Neutrophils % Seg Neuts % (Manual) Lymphocytes % (Manual) Nucleated RBC % Seg Neutrophils # Man Lymphocytes # (Manual) PT INR APTT D-Dimer ABG pH POC ABG pCO2 POC ABG pO2 ABG pO2 ABG HCO3 ABG Base Excess ABG Hemoglobin ABG Oxyhemoglobin ABG Potassium ABG Chloride ABG Glucose Oxyhemoglobin Carboxyhemoglobin Sodium Potassium Chloride Carbon Dioxide BUN Creatinine Glucose POC Glucose 134 H 169 H 173 H Calcium Phosphorus AST ALT Alkaline Phosphatase Lactate Dehydrogenase CK-MB (CK-2) CK-MB (CK-2) Rel Index Troponin T C-Reactive Protein NT-Pro-B Natriuret Pep Albumin HDL Cholesterol TSH Arterial Blood Glucose Arterial Blood Ionized Calcium Hepatitis C Antibody Crossmatch 07/28/20 07/28/20 07/28/20 04:00 05:14 10:15 WBC RBC 2.13 L Hgb 6.8 L Hct 19.9 L* MCV RDW 18.4 H Plt Count 55 L Lymph % (Auto) [place] % (Auto) 9.1 H Lymph # (Auto) [place] # (Auto) 0.9 H Seg Neutrophils % 74.5 H Seg Neuts % (Manual) Lymphocytes % (Manual) Nucleated RBC % Seg Neutrophils # Man Lymphocytes # (Manual) PT INR APTT D-Dimer ABG pH POC ABG pCO2 POC ABG pO2 ABG pO2 ABG HCO3 ABG Base Excess ABG Hemoglobin ABG Oxyhemoglobin ABG Potassium ABG Chloride ABG Glucose Oxyhemoglobin Carboxyhemoglobin Sodium Potassium Chloride Carbon Dioxide BUN Creatinine Glucose POC Glucose 169 H Calcium Phosphorus AST ALT Alkaline Phosphatase Lactate Dehydrogenase CK-MB (CK-2) CK-MB (CK-2) Rel Index Troponin T C-Reactive Protein NT-Pro-B Natriuret Pep Albumin HDL Cholesterol TSH Arterial Blood Glucose Arterial Blood Ionized Calcium Hepatitis C Antibody Crossmatch See Detail 07/28/20 07/28/20 07/28/20 11:32 17:28 23:58 WBC RBC Hgb Hct MCV RDW Plt Count Lymph % (Auto) [place] % (Auto) Lymph # (Auto) [place] # (Auto) Seg Neutrophils % Seg Neuts % (Manual) Lymphocytes % (Manual) Nucleated RBC % Seg Neutrophils # Man Lymphocytes # (Manual) PT INR APTT D-Dimer ABG pH POC ABG pCO2 POC ABG pO2 ABG pO2 ABG HCO3 ABG Base Excess ABG Hemoglobin ABG Oxyhemoglobin ABG Potassium ABG Chloride ABG Glucose Oxyhemoglobin Carboxyhemoglobin Sodium Potassium Chloride Carbon Dioxide BUN Creatinine Glucose POC Glucose 185 H 208 H 227 H Calcium Phosphorus AST ALT Alkaline Phosphatase Lactate Dehydrogenase CK-MB (CK-2) CK-MB (CK-2) Rel Index Troponin T C-Reactive Protein NT-Pro-B Natriuret Pep Albumin HDL Cholesterol TSH Arterial Blood Glucose Arterial Blood Ionized Calcium Hepatitis C Antibody Crossmatch 07/29/20 07/29/20 07/29/20 05:37 12:04 17:11 WBC RBC Hgb Hct MCV RDW Plt Count Lymph % (Auto) [place] % (Auto) Lymph # (Auto) [place] # (Auto) Seg Neutrophils % Seg Neuts % (Manual) Lymphocytes % (Manual) Nucleated RBC % Seg Neutrophils # Man Lymphocytes # (Manual) PT INR APTT D-Dimer ABG pH POC ABG pCO2 POC ABG pO2 ABG pO2 ABG HCO3 ABG Base Excess ABG Hemoglobin ABG Oxyhemoglobin ABG Potassium ABG Chloride ABG Glucose Oxyhemoglobin Carboxyhemoglobin Sodium Potassium Chloride Carbon Dioxide BUN Creatinine Glucose POC Glucose 225 H 201 H 185 H Calcium Phosphorus AST ALT Alkaline Phosphatase Lactate Dehydrogenase CK-MB (CK-2) CK-MB (CK-2) Rel Index Troponin T C-Reactive Protein NT-Pro-B Natriuret Pep Albumin HDL Cholesterol TSH Arterial Blood Glucose Arterial Blood Ionized Calcium Hepatitis C Antibody Crossmatch 07/29/20 07/30/20 07/30/20 23:48 05:38 09:05 WBC RBC 2.49 L Hgb 7.7 L Hct 23.1 L MCV RDW 20.5 H Plt Count 54 L Lymph % (Auto) [place] % (Auto) Lymph # (Auto) [place] # (Auto) Seg Neutrophils % Seg Neuts % (Manual) Lymphocytes % (Manual) Nucleated RBC % Seg Neutrophils # Man Lymphocytes # (Manual) PT INR APTT D-Dimer ABG pH POC ABG pCO2 POC ABG pO2 ABG pO2 ABG HCO3 ABG Base Excess ABG Hemoglobin ABG Oxyhemoglobin ABG Potassium ABG Chloride ABG Glucose Oxyhemoglobin Carboxyhemoglobin Sodium Potassium Chloride Carbon Dioxide BUN Creatinine Glucose POC Glucose 209 H 205 H Calcium Phosphorus AST ALT Alkaline Phosphatase Lactate Dehydrogenase CK-MB (CK-2) CK-MB (CK-2) Rel Index Troponin T C-Reactive Protein NT-Pro-B Natriuret Pep Albumin HDL Cholesterol TSH Arterial Blood Glucose Arterial Blood Ionized Calcium Hepatitis C Antibody Crossmatch 07/30/20 07/30/20 07/30/20 09:05 11:42 17:46 WBC RBC Hgb Hct MCV RDW Plt Count Lymph % (Auto) [place] % (Auto) Lymph # (Auto) [place] # (Auto) Seg Neutrophils % Seg Neuts % (Manual) Lymphocytes % (Manual) Nucleated RBC % Seg Neutrophils # Man Lymphocytes # (Manual) PT INR APTT D-Dimer ABG pH POC ABG pCO2 POC ABG pO2 ABG pO2 ABG HCO3 ABG Base Excess ABG Hemoglobin ABG Oxyhemoglobin ABG Potassium ABG Chloride ABG Glucose Oxyhemoglobin Carboxyhemoglobin Sodium 135 L Potassium Chloride Carbon Dioxide BUN 52 H Creatinine 4.1 H Glucose 236 H POC Glucose 224 H 195 H Calcium Phosphorus AST ALT Alkaline Phosphatase Lactate Dehydrogenase CK-MB (CK-2) CK-MB (CK-2) Rel Index Troponin T C-Reactive Protein NT-Pro-B Natriuret Pep Albumin HDL Cholesterol TSH Arterial Blood Glucose Arterial Blood Ionized Calcium Hepatitis C Antibody Crossmatch 07/30/20 07/30/20 07/31/20 21:09 23:45 05:10 WBC RBC 2.46 L Hgb 7.6 L Hct 22.6 L MCV RDW 19.4 H Plt Count 77 L Lymph % (Auto) [place] % (Auto) Lymph # (Auto) [place] # (Auto) Seg Neutrophils % Seg Neuts % (Manual) Lymphocytes % (Manual) Nucleated RBC % Seg Neutrophils # Man Lymphocytes # (Manual) PT INR APTT D-Dimer ABG pH POC ABG pCO2 POC ABG pO2 ABG pO2 ABG HCO3 ABG Base Excess ABG Hemoglobin ABG Oxyhemoglobin ABG Potassium ABG Chloride ABG Glucose Oxyhemoglobin Carboxyhemoglobin Sodium Potassium Chloride Carbon Dioxide BUN Creatinine Glucose POC Glucose 153 H 185 H Calcium Phosphorus AST ALT Alkaline Phosphatase Lactate Dehydrogenase CK-MB (CK-2) CK-MB (CK-2) Rel Index Troponin T C-Reactive Protein NT-Pro-B Natriuret Pep Albumin HDL Cholesterol TSH Arterial Blood Glucose Arterial Blood Ionized Calcium Hepatitis C Antibody Crossmatch 07/31/20 05:17 WBC RBC Hgb Hct MCV RDW Plt Count Lymph % (Auto) [place] % (Auto) Lymph # (Auto) [place] # (Auto) Seg Neutrophils % Seg Neuts % (Manual) Lymphocytes % (Manual) Nucleated RBC % Seg Neutrophils # Man Lymphocytes # (Manual) PT INR APTT D-Dimer ABG pH POC ABG pCO2 POC ABG pO2 ABG pO2 ABG HCO3 ABG Base Excess ABG Hemoglobin ABG Oxyhemoglobin ABG Potassium ABG Chloride ABG Glucose Oxyhemoglobin Carboxyhemoglobin Sodium Potassium Chloride Carbon Dioxide BUN Creatinine Glucose POC Glucose 163 H Calcium Phosphorus AST ALT Alkaline Phosphatase Lactate Dehydrogenase CK-MB (CK-2) CK-MB (CK-2) Rel Index Troponin T C-Reactive Protein NT-Pro-B Natriuret Pep Albumin HDL Cholesterol TSH Arterial Blood Glucose Arterial Blood Ionized Calcium Hepatitis C Antibody Crossmatch Allied health notes reviewed: nursing
[2020-07-31] MEDS: SCOPOLAMINE TRANSDERMAL PATCH 72 HR TD SCH (11:00)
--- NOTE | 2020-07-31 12:38 | Progress Note ---
Assessment and Plan Cont present cardiac management. Consider addition of BB in setting of CMP if HR and BPs permit. No ACEI/ARB at this time in setting of renal insufficiency requiring HD. Can consider ischemic evaluation for further investigation of CMP etiology once medically stabilized. Cont volume and electrolyte management per nephrology/HD. Persistent anemia and thrombocytopenia noted - further eval/management per primary and critical care teams. The patient has been seen in conjunction with Dr. Thomason who agrees with the assessment and plan of care. - Patient Problems (1) Acute on chronic renal failure Current Visit: Yes Status: Acute Qualifiers: Acute renal failure type: unspecified Chronic kidney disease stage: stage 3 (moderate) Chronic kidney disease stage 3 subtype: stage 3a (GFR 45-59) Qualified Code(s): N17.9 - Acute kidney failure, unspecified; N18.31 - Chronic kidney disease, stage 3a (2) Anasarca Current Visit: Yes Status: Acute (3) Acute respiratory failure Current Visit: Yes Status: Acute Qualifiers: Respiratory failure complication: hypoxia Qualified Code(s): J96.01 - Acute respiratory failure with hypoxia (4) Altered mental status Current Visit: Yes Status: Acute (5) Hyperkalemia Current Visit: Yes Status: Acute (6) Sepsis Current Visit: Yes Status: Suspected Qualifiers: Sepsis type: sepsis due to unspecified organism Sepsis acute organ dysfunction status: with acute organ dysfunction Severe sepsis acute organ dysfunction type: acute renal failure Acute renal failure type: unspecified Severe sepsis shock status: without septic shock Qualified Code(s): A41.9 - Sepsis, unspecified organism; R65.20 - Severe sepsis without septic shock; N17.9 - Acute kidney failure, unspecified (7) Sinus bradycardia Current Visit: Yes Status: Acute (8) Hypotension Current Visit: Yes Status: Acute (9) Acute HFrEF (heart failure with reduced ejection fraction) Current Visit: Yes Status: Acute (10) Cardiomyopathy Current Visit: Yes Status: Chronic Qualifiers: Cardiomyopathy type: unspecified Qualified Code(s): I42.9 - Cardiomyopathy, unspecified (11) History of ETOH abuse Current Visit: Yes Status: Chronic (12) History of cocaine use Current Visit: Yes Status: Chronic (13) Cellulitis of right lower extremity Current Visit: Yes Status: Acute (14) Diabetes Current Visit: Yes Status: Chronic (15) History of CVA (cerebrovascular accident) Current Visit: Yes Status: Acute (16) Anemia Current Visit: Yes Status: Chronic Qualifiers: Anemia type: unspecified type Qualified Code(s): D64.9 - Anemia, unspecified (17) Thrombocytopenia Current Visit: Yes Status: Acute (18) Hepatitis C Current Visit: Yes Status: Chronic (19) Elevated troponin Current Visit: Yes Status: Acute Subjective Date of service: 07/31/20 Principal diagnosis: RACQUEL Interval history: pt remains intubated, unresponsive. currently weaned off vasopressors. tele reviewed - in SR with HR 60s, no events noted overnight. Objective Last Vital Signs Temp 94.1 F L 07/31/20 11:26 Pulse 16 L 07/31/20 12:11 Resp 16 07/31/20 11:00 BP 137/76 07/31/20 12:11 Pulse Ox 100 07/31/20 12:11 - Physical Examination General: Other (Intubated, unresponsive) HEENT: Positive: Other (Intubated, Sedated) Neck: Positive: neck supple Cardiac: Positive: Reg Rate and Rhythm, S1/S2 Lungs: Positive: Decreased Breath Sounds Neuro: Positive: Other (Intubated, unresponsive) Abdomen: Positive: Unremarkable Skin: Negative: Rash Extremities: Present: upper extr. pulses, lower extr. pulses. Absent: edema - Labs and Meds CBC 07/31/20 Range/Units 05:10 WBC 10.2 (4.5-11.0) K/mm3 RBC 2.46 L (3.65-5.03) M/mm3 Hgb 7.6 L (11.8-15.2) gm/dl Hct 22.6 L (35.5-45.6) % Plt Count 77 L (140-440) K/mm3 - Imaging and Cardiology EKG: report reviewed, image reviewed Echo: report reviewed ((06/22/20) EF 35-40%. Mild LVH. LVSF med decreased. RVSF mildly reduced. Mild Pulm HTN. Left Atrium Mildly DIlated. Right Atrium Moderately dilated. Mild MR. Moderate TR. ) - EKG Sinus rhythms and dysrhythmias: sinus rhythm - Allied health notes Allied health notes reviewed: nursing
--- NOTE | 2020-07-31 16:01 | Progress Note ---
Assessment and Plan Assessment and plan: -Acute on chronic kidney disease stage III; Nephrology consulted, appreciate recommendations Vasomotor nephropathy, Nephrology initiated hemodialysis Management per nephrology, HD per schedule -Acute hypoxic respiratory failure Intubated 07/22/2020 CCM consulted, appreciate recommendations VAP bundle, wean as tolerated -Non-STEMI type II Likely secondary to respiratory failure, CKD Cardiology consulted, appreciate recommendations -Bradycardia, resolved Hold beta-blockers,Atropine as needed -Hyponatremia Electrolyte correction with HD -Acute toxic metabolic encephalopathy; CT head without contrast, no acute abnormality Neurology consulted, appreciate recommendations EEG pending -Severe protein calorie malnutrition/hypoalbuminemia, nutrition supplements, tube feeding, nutrition consult -Thrombocytopenia HIT antibodies negative Trend CBC -Hypothermia Symptomatic treatment s/p antibiotics -h/o right calf abscess -h/o MSSA sepsis Infectious disease consulted, appreciate recommendations s/p Unasyn, completed 07/24 -Type 2 diabetes mellitus Blood sugars in the lower range, avoid hypoglycemia Accu-Chek sliding scale coverage ADA diet Long-acting insulin as needed, check HbA1c 8.3 last month -Acute on chronic systolic CHF EF 35 to 40% [04/2020] Continue antifailure medications Input output monitoring, diuretics Cardiology consulted, appreciate recommendations -History of seizure disorder Seizure precautions, continue Keppra -History of CVA; with residual weakness Fall precautions, PT OT as needed -DVT prophylaxis: thrombocytopenia, no anticoagulation. Continue SCDs -GI prophylaxis: PPI The high probability of a clinically significant, sudden or life threatening deterioration of the [multi] system(s) required my full and direct attention, intervention and personal management. The aggregate critical care time was [35] minutes. This time is in addition to time spent performing reported procedures but includes the following: [x] Data Review and interpretation [x] Patient assessment and monitoring of vital signs [x] Documentation [x] Medication orders and management History Interval history: This is 65-year-old male with diabetes mellitus, chronic kidney disease, CVA with residual weakness admitted to the hospitalist service with altered level consciousness and unresponsiveness. Patient started to be in sepsis secondary to MSSA bacteremia long-term antibiotics and his renal function progressively deteriorated. Patient initially refused outpatient dialysis then went into respiratory arrest requiring intubation and mechanical ventilation and was transferred to ICU. Patient family gave consent for hemodialysis and the patient remains intubated in the ICU. [facility], nephrology, cardiology and vascular surgery were consulted for care. Sepsis Acute on chronic kidney disease stage III Acute hypoxic respiratory failure NSTEMI type II Bradycardia Hyponatremia Acute toxic metabolic encephalopathy Severe protein calorie malnutrition/hypoalbuminemia Thrombocytopenia MSSA sepsis Type 2 diabetes mellitus Acute on chronic systolic congestive heart failure, EF 30 to 45% Seizure disorder CVA 07/19/2020; unable to pass Ayala catheter, consulted urology, continue supportive care, COVID-19 test negative 07/20/2020; urology evaluation recommendation noted and appreciated. Ayala catheter was inserted by urology, draining well, MSSA bacteremia on long-term antibiotics 07/21/2020; patient is lethargic, CT head without contrast, no acute abnormality, Patient is afebrile 07/22/2020; patient had acute respiratory failure this morning. JEFFERY IBARRA was called, patient was intubated on ventilatory support, pulmonary critical consulted, family patients aunt informed 07/23/2020; patient has severe bradycardia this morning, received atropine, Cardiology following. Beta-blockers held, electrolytes corrected. Patient's heart rate improved to 50s and 60s Cardiology following. Nephrology planning hemodialysis trying to get consent from family 07/24/2020; patient received hemodialysis yesterday. Remains intubated on ventilatory support. Bradycardia significantly improved heart rate in 60s. Completed 6 weeks of Unasyn for MSSA sepsis today 07/25/2020; patient remains on ventilatory support. Receiving HD per schedule dual. Wean as tolerated and extubate 07/26/2020; patient remains on ventilatory support, wean as tolerated and extubate. Initiated hemodialysis, HD per schedule, new set of blood culture sent 07/30: No acute events reported overnight. Patient remains unresponsive without sedation in the CT head was obtained which showed interval development of extensive hypoattenuation in the cerebral white matter, corpus callosum, globus thalami and probable indented nuclei finding likely test of global hypoxic ischemic injury with no acute hemorrhage or mass-effect. We consulted neurology and ordered an EEG for further work-up. no acute events reported overnight. He remains on MV. 07/31: PSV trials, HD per renal, bear hugger in place is unable to obtain temperature. Neurology consult and EEG pending. No acute events reported overnight. No acute events reported overnight. Hospitalist Physical - Constitutional Vitals: Temp Pulse Resp BP Pulse Ox 94.1 F L 77 15 138/73 100 07/31/20 11:26 07/31/20 15:33 07/31/20 12:30 07/31/20 15:33 07/31/20 15:33 General appearance: Present: no acute distress, mild distress, well-nourished - Neck Neck: Present: normal ROM - Respiratory Respiratory effort: normal Respiratory: bilateral: diminished - Cardiovascular Rhythm: regular Heart Sounds: Present: S1 & S2. Absent: systolic murmur, diastolic murmur - Extremities Extremities: no ischemia, pulses intact, pulses symmetrical Peripheral Pulses: within normal limits - Abdominal General gastrointestinal: soft, non-tender, non-distended, normal bowel sounds - Integumentary Integumentary: Present: warm, dry - Psychiatric Psychiatric: other (minimal response to stimuli) - Neurologic Neurologic: other (minimal response to painful stimuli) HEART Score - HEART Score Troponin: Troponin T 0.047 ng/mL (0.00-0.029) H 07/22/20 10:30 Results - Labs CBC & Chem 7: 07/31/20 05:10 07/30/20 09:05 Labs: Laboratory Last Values WBC 10.2 K/mm3 (4.5-11.0) 07/31/20 05:10 RBC 2.46 M/mm3 (3.65-5.03) L 07/31/20 05:10 Hgb 7.6 gm/dl (11.8-15.2) L 07/31/20 05:10 Hct 22.6 % (35.5-45.6) L 07/31/20 05:10 MCV 92 fl (84-94) 07/31/20 05:10 MCH 31 pg (28-32) 07/31/20 05:10 MCHC 34 % (32-34) 07/31/20 05:10 RDW 19.4 % (13.2-15.2) H 07/31/20 05:10 Plt Count 77 K/mm3 (140-440) L 07/31/20 05:10 Lymph % (Auto) 15.7 % (13.4-35.0) 07/28/20 04:00 Rains % (Auto) 9.1 % (0.0-7.3) H 07/28/20 04:00 Eos % (Auto) 0.4 % (0.0-4.3) 07/28/20 04:00 Baso % (Auto) 0.3 % (0.0-1.8) 07/28/20 04:00 Lymph # (Auto) 1.6 K/mm3 (1.2-5.4) 07/28/20 04:00 Rains # (Auto) 0.9 K/mm3 (0.0-0.8) H 07/28/20 04:00 Eos # (Auto) 0.0 K/mm3 (0.0-0.4) 07/28/20 04:00 Baso # (Auto) 0.0 K/mm3 (0.0-0.1) 07/28/20 04:00 Add Manual Diff Complete 07/27/20 06:36 Total Counted 100 07/27/20 06:36 Seg Neutrophils % 74.5 % (40.0-70.0) H 07/28/20 04:00 Seg Neuts % (Manual) 88.0 % (40.0-70.0) H 07/27/20 06:36 Lymphocytes % (Manual) 11.0 % (13.4-35.0) L 07/27/20 06:36 Monocytes % (Manual) 1.0 % (0.0-7.3) 07/27/20 06:36 Nucleated RBC % 2.0 % (0.0-0.9) H 07/27/20 06:36 Seg Neutrophils # 7.7 K/mm3 (1.8-7.7) 07/28/20 04:00 Seg Neutrophils # Man 8.9 K/mm3 (1.8-7.7) H 07/27/20 06:36 Band Neutrophils # 0.0 K/mm3 07/27/20 06:36 Lymphocytes # (Manual) 1.1 K/mm3 (1.2-5.4) L 07/27/20 06:36 Abs React Lymphs (Man) 0.0 K/mm3 07/27/20 06:36 Monocytes # (Manual) 0.1 K/mm3 (0.0-0.8) 07/27/20 06:36 Eosinophils # (Manual) 0.0 K/mm3 (0.0-0.4) 07/27/20 06:36 Basophils # (Manual) 0.0 K/mm3 (0.0-0.1) 07/27/20 06:36 Metamyelocytes # 0.0 K/mm3 07/27/20 06:36 Myelocytes # 0.0 K/mm3 07/27/20 06:36 Promyelocytes # 0.0 K/mm3 07/27/20 06:36 Blast Cells # 0.0 K/mm3 07/27/20 06:36 WBC Morphology Not Reportable 07/27/20 06:36 Hypersegmented Neuts Not Reportable 07/27/20 06:36 Hyposegmented Neuts Not Reportable 07/27/20 06:36 Hypogranular Neuts Not Reportable 07/27/20 06:36 Smudge Cells Not Reportable 07/27/20 06:36 Toxic Granulation Not Reportable 07/27/20 06:36 Toxic Vacuolation Not Reportable 07/27/20 06:36 Dohle Bodies Not Reportable 07/27/20 06:36 Pelger-Huet Anomaly Not Reportable 07/27/20 06:36 Clint Rods Not Reportable 07/27/20 06:36 Platelet Estimate Consistent w auto 07/27/20 06:36 Clumped Platelets Not Reportable 07/27/20 06:36 Plt Clumps, EDTA Not Reportable 07/27/20 06:36 Large Platelets Not Reportable 07/27/20 06:36 Giant Platelets Not Reportable 07/27/20 06:36 Platelet Satelliting Not Reportable 07/27/20 06:36 Plt Morphology Comment Not Reportable 07/27/20 06:36 RBC Morphology Not Reportable 07/27/20 06:36 Dimorphic RBCs Not Reportable 07/27/20 06:36 Polychromasia Not Reportable 07/27/20 06:36 Hypochromasia Not Reportable 07/27/20 06:36 Poikilocytosis Not Reportable 07/27/20 06:36 Anisocytosis Few 07/27/20 06:36 Microcytosis Not Reportable 07/27/20 06:36 Macrocytosis Not Reportable 07/27/20 06:36 Spherocytes Not Reportable 07/27/20 06:36 Pappenheimer Bodies Not Reportable 07/27/20 06:36 Sickle Cells Not Reportable 07/27/20 06:36 Target Cells Not Reportable 07/27/20 06:36 Tear Drop Cells Not Reportable 07/27/20 06:36 Ovalocytes Not Reportable 07/27/20 06:36 Helmet Cells Not Reportable 07/27/20 06:36 [place] Bodies Not Reportable 07/27/20 06:36 [place] Rings Not Reportable 07/27/20 06:36 [place] Cells Not Reportable 07/27/20 06:36 Bite Cells Not Reportable 07/27/20 06:36 Crenated Cell Not Reportable 07/27/20 06:36 Elliptocytes Not Reportable 07/27/20 06:36 Acanthocytes (Spur) Not Reportable 07/27/20 06:36 Rouleaux Not Reportable 07/27/20 06:36 Hemoglobin C Crystals Not Reportable 07/27/20 06:36 Schistocytes Rare 07/27/20 06:36 Malaria parasites Not Reportable 07/27/20 06:36 Carl Bodies Not Reportable 07/27/20 06:36 Hem Pathologist Commnt No 07/27/20 06:36 PT 15.9 Sec. (12.2-14.9) H 07/22/20 10:30 INR 1.27 (0.87-1.13) H 07/22/20 10:30 APTT 38.3 Sec. (24.2-36.6) H 07/22/20 10:30 D-Dimer 1036.46 ng/mlDDU (0-234) H 07/18/20 08:56 Heparin Anti-Xa, Unfract Negative (Negative) 07/23/20 08:54 ABG pH 7.520 pH Units (7.350-7.450) H 07/27/20 05:20 POC ABG pCO2 32.7 mmHg (32.0-48.0) 07/25/20 03:57 ABG pCO2 33.5 mm Hg 07/27/20 05:20 POC ABG pO2 62.7 mmHg (83-108) L 07/25/20 03:57 ABG pO2 64.2 mm Hg (80.0-90.0) L 07/27/20 05:20 POC ABG HCO3 24.8 07/25/20 03:57 ABG HCO3 26.8 mmol/L (20.0-26.0) H 07/27/20 05:20 ABG O2 Saturation 95.8 % (95.0-99.0) 07/27/20 05:20 ABG O2 Content 9.5 (0.0-44) 07/27/20 05:20 POC ABG Base Excess 1.7 07/25/20 03:57 ABG Base Excess 3.7 mmol/L (-2.0-3.0) H 07/27/20 05:20 ABG Hemoglobin 7.2 gm/dl (14.0-18.0) L 07/27/20 05:20 ABG Oxyhemoglobin 90.1 (94-98) L 07/25/20 03:57 ABG Carboxyhemoglobin 2.3 % (0.0-5.0) 07/27/20 05:20 ABG Methemoglobin 0.5 % (0.0-1.5) 07/27/20 05:20 ABG Sodium 138.7 mmol/L (136.0-145.0) 07/25/20 03:57 ABG Potassium 4.0 mmol/L (3.40-4.50) 07/25/20 03:57 ABG Chloride 110.0 mmol/L (98-107) H 07/25/20 03:57 ABG Glucose 157 mg/dL (65-95) H 07/25/20 03:57 Oxyhemoglobin 93.2 % (95.0-99.0) L 07/27/20 05:20 Carboxyhemoglobin 1.1 (0.5-1.5) 07/25/20 03:57 FiO2 25 % 07/27/20 05:20 FiO2 % 40 07/25/20 03:57 Sodium 135 mmol/L (137-145) L 07/30/20 09:05 Potassium 4.1 mmol/L (3.6-5.0) 07/30/20 09:05 Chloride 100.0 mmol/L (98-107) 07/30/20 09:05 Carbon Dioxide 29 mmol/L (22-30) 07/30/20 09:05 Anion Gap 10 mmol/L 07/30/20 09:05 BUN 52 mg/dL (9-20) H 07/30/20 09:05 Creatinine 4.1 mg/dL (0.8-1.3) H 07/30/20 09:05 Estimated GFR 18 ml/min 07/30/20 09:05 BUN/Creatinine Ratio 13 % 07/30/20 09:05 Glucose 236 mg/dL (75-100) H 07/30/20 09:05 POC Glucose 144 mg/dL (70-105) H 07/31/20 11:48 Lactic Acid 0.80 mmol/L (0.7-2.0) 07/18/20 08:56 Calcium 8.4 mg/dL (8.4-10.2) 07/30/20 09:05 Phosphorus 5.80 mg/dL (2.5-4.5) H 07/22/20 10:30 Magnesium 2.10 mg/dL (1.7-2.3) 07/22/20 10:30 Ferritin 198.6 ng/mL (30.0-300.0) 07/18/20 10:36 Total Bilirubin 0.30 mg/dL (0.1-1.2) 07/22/20 10:30 Direct Bilirubin 0.2 mg/dL (0-0.2) 07/19/20 06:00 Indirect Bilirubin 0.2 mg/dL 07/19/20 06:00 AST 66 units/L (5-40) H 07/22/20 10:30 ALT < 5 units/L (7-56) L 07/22/20 10:30 Alkaline Phosphatase 604 units/L (35-129) H 07/22/20 10:30 Ammonia 41.0 umol/L (25-60) 07/18/20 08:56 Lactate Dehydrogenase 212 units/L (91-180) H 07/18/20 10:36 Total Creatine Kinase 67 units/L (55-170) 07/22/20 10:30 CK-MB (CK-2) 10.9 ng/mL (0.0-4.0) H 07/22/20 10:30 CK-MB (CK-2) Rel Index 16.2 (0-4) H 07/22/20 10:30 Troponin T 0.047 ng/mL (0.00-0.029) H 07/22/20 10:30 C-Reactive Protein 2.10 mg/dL (0.00-1.30) H 07/18/20 10:36 NT-Pro-B Natriuret Pep 4777 pg/mL (0-900) H 07/18/20 08:56 Total Protein 6.4 g/dL (6.3-8.2) 07/22/20 10:30 Albumin 2.1 g/dL (3.9-5) L 07/22/20 10:30 Albumin/Globulin Ratio 0.5 % 07/22/20 10:30 Triglycerides 65 mg/dL (2-149) 07/18/20 08:56 Cholesterol 157 mg/dL (50-199) 07/18/20 08:56 LDL Cholesterol Direct 95 mg/dL (50-130) 07/18/20 08:56 HDL Cholesterol 67 mg/dL (40-59) H 07/18/20 08:56 Cholesterol/HDL Ratio 2.34 % 07/18/20 08:56 Procalcitonin 0.10 ng/mL (<0.15) 07/18/20 10:36 TSH 5.520 mlU/mL (0.270-4.200) H 07/18/20 08:56 Free T4 0.84 ng/dL (0.76-1.46) 07/18/20 08:56 Arterial Blood Glucose 157 mg/dL (65-95) H 07/25/20 03:57 Arterial Blood Ionized Calcium 4.3 mg/dL (4.6-5.3) L 07/25/20 03:57 Random Vancomycin 11.5 ug/mL (0-40.0) 07/28/20 05:00 Heparin-induced Plt Ab Negative (Negative) 07/23/20 08:54 UF Heparin High Dose 0 % Release 07/23/20 08:54 MAGEN UFH Low Dose 0.1 0 % Release 07/23/20 08:54 MAGEN UFH Low Dose 0.5 0 % Release 07/23/20 08:54 Coronavirus (PCR) Negative (Negative) 07/18/20 12:07 Hepatitis A IgM Ab Non-reactive (NonReactive) 07/23/20 19:20 Hep Bs Antigen Non-reactive (Negative) 07/23/20 19:20 Hep B Core IgM Ab Non-reactive (NonReactive) 07/23/20 19:20 Hepatitis C Antibody Reactive (NonReactive) A 07/23/20 19:20 Blood Type A POSITIVE 07/28/20 10:15 Antibody Screen Negative 07/28/20 10:15 Crossmatch See Detail 07/28/20 10:15 Microbiology: Microbiology 07/26/20 14:43 Peripheral/Venous Blood Culture - Final NO GROWTH AFTER 5 DAYS 07/26/20 14:31 Peripheral/Venous Blood Culture - Final NO GROWTH AFTER 5 DAYS Ayala/IV: Voiding Method Incontinent Active Medications - Current Medications Current Medications: Generic Name Dose Route Start Last Admin Trade Name Freq PRN Reason Stop Dose Admin Lipase/Protease/Amylase 1 each 07/23/20 14:17 Lipase 10,500/Protease 25,000/Amylase 43,750 (Units) Dr Cap FEEDTUBE PRN PRN For Clogged Feeding Tube Aspirin 81 mg 07/19/20 10:00 07/31/20 09:28 Aspirin Ec 81 Mg Tab PO 81 mg QDAY JODIE Administration Atropine Sulfate 1 mg 07/23/20 09:03 07/23/20 22:15 Atropine 0.1% (1 Mg/10 Ml) Cardiac Syringe IV 1 mg PRN PRN Administration Bradycardia Dextrose 50 ml 07/23/20 03:28 07/23/20 06:00 Dextrose 50% In Water (25gm) 50 Ml Syringe IV 50 ml Q30MIN PRN Administration Hypoglycemia Protocol Famotidine 20 mg 07/18/20 22:00 07/31/20 09:28 Famotidine 20 Mg Tab PO 20 mg DAILY JODIE Administration Fluoxetine HCl 20 mg 07/19/20 10:00 07/31/20 09:28 Fluoxetine 20 Mg Cap PO 20 mg QDAY JODIE Administration Folic Acid 1 mg 07/19/20 10:00 07/31/20 09:28 Folic Acid 1 Mg Tab PO 1 mg DAILY JODIE Administration Hydralazine HCl 50 mg 07/18/20 14:00 07/31/20 05:53 Hydralazine 25 Mg Tab PO Not Given Q8HR JODIE Hydralazine HCl 20 mg 07/22/20 14:02 Hydralazine 20 Mg/1 Ml Inj IV Q4HR PRN Blood Pressure Hydrophilic Ointment 1 applic 07/22/20 10:02 Lip Therapy Vaseline TP Q2HR PRN Dry Lips Norepinephrine 4 mg in 250 mls @ 7.5 mls/hr 07/24/20 10:00 07/24/20 15:35 Levophed Drip 4 Mg/Ns 250 Ml IV 0 mcg/min TITR JODIE 0 mls/hr Titration Protocol 2 MCG/MIN Sodium Chloride 100 mls @ 999 mls/hr 07/31/20 08:21 Nacl 0.9% IV FRANCISCO PRN Hypotension Insulin Glargine 10 units 07/30/20 22:00 07/30/20 22:25 Insulin Glargine 100 Units/Ml SUB-Q 10 units QHS JODIE Administration Insulin Human Lispro 0 unit 07/26/20 10:00 07/31/20 05:59 Insulin Lispro 100 Unit/Ml SUB-Q 2 unit Q6HR JODIE Administration Protocol Levetiracetam 750 mg 07/18/20 22:00 07/31/20 09:27 Levetiracetam 500 Mg/5 Ml Oral Liqd PO 750 mg BID JODIE Administration Multi-Ingred Cream/Lotion/Oil/Oint 1 applic 07/22/20 10:02 Mineral Oil/Petrolatum, White Ophth Oint 3.5 Gm OU Q4HR PRN Dry Eye(s) Scopolamine 1 each 07/31/20 10:00 07/31/20 11:00 Scopolamine Transdermal Patch 72 Hr TD 1 each Q3D JODIE Administration Simple Syrup 15 ml 07/23/20 14:17 Simple Syrup 15 Ml FEEDTUBE PRN PRN Hypoglycemia Simple Syrup 30 ml 07/23/20 14:17 Simple Syrup 15 Ml FEEDTUBE PRN PRN Hypoglycemia Sodium Bicarbonate 325 mg 07/23/20 14:17 Sodium Bicarbonate 325 Mg Tab FEEDTUBE PRN PRN For Clogged Feeding Tube Thiamine HCl 100 mg 07/19/20 10:00 07/31/20 09:28 Thiamine 100 Mg Tab PO 100 mg QDAY JODIE Administration Trazodone HCl 50 mg 07/18/20 22:00 07/30/20 22:00 Trazodone 50 Mg Tab PO 50 mg QHS JODIE Administration Nutrition/Malnutrition Assess - Dietary Evaluation Nutrition/Malnutrition Findings: Nutrition Notes Start: 07/19/20 09:53 Freq: Status: Active Protocol: Document 07/25/20 10:41 AL (Rec: 07/25/20 10:47 AL [id number]) Co-Sign 07/25/20 10:41 LP Nutrition Notes Initial or Follow up Reassessment Current Diagnosis CKD(stage I-IV),Diabetes, Sepsis,Heart Failure, Respiratory Failure,Stroke Other Pertinent Diagnosis Acute toxic metabolic encephalopathy, Bradycardia, ( R) LE wound, on HD Current Diet Nepro 1.8 at 42 ml/hr Labs/Tests BUN 38 Cr 4.1 POC BG 160 Pertinent Medications Reviewed Height 5 ft 9 in Weight 114.76 kg [place] Body Weight (kg) 72.72 BMI 37.3 Weight Status Obese Subjective/Other Information F/U for TF tolerance and vent satus. Pt is tolerating Nepro at 42 ml/hr (goal rate) and is still intubated. Percent of energy/protein needs met: 99%/57% Burn Absent Trauma Absent Difficulty In Swallowing Skin Integrity/Comment Diabetic ulcers to BLE Current % PO Negligible Minimum of two criteria No Fluid Accumulation Moderate to Severe (severe) #1 Nutrition Diagnosis Inadequate oral intake Diagnosis Progress(for reassessment Continues documentation) Is patient on ventilator? Yes Is Patient Ambulatory and/or Out of Bed No REE-([place]-confined to bed) 2330.148 Kcal/Kg value to use for calculation 16 Approximate Energy Requirements Using 1836 kcal/Kg Calculation Used for Recommendations Kcal/kg Additional Notes Protein needs: >144g (>2.0 g/ kgIBW) Fluid needs 1000 - 1500 ml/day Nutrition Intervention Change Diet Order: TF Nutrition Support: Nepro at 42 ml/h with a free water flush of 125 ml q4h. Kcal 1,814 Protein (gm) 82 Fluid (mL) 733 Goal #1 TF tolerane Goal #2 Meet at estimated energy and protein needs as best as possible. Anticipated Discharge Needs: Unable to determine at this time Follow-Up By: 08/01/20 Additional Comments F/U for stable TF tolerance
[2020-07-31] MEDS: INSULIN GLARGINE 100 UNITS/ML SUB-Q SCH (21:05)
[2020-07-31] MEDS: traZODone 50 MG TAB PO SCH (21:05)
--- NOTE | 2020-07-31 21:56 | Consultation ---
History of Present Illness Consult date: 07/31/20 Reason for Consult: Encephalopathy Chief complaint: Interval history: This is 65-year-old male with diabetes mellitus, chronic kidney disease, CVA with residual weakness admitted to the hospitalist service with altered level consciousness and unresponsiveness. Patient started to be in sepsis secondary to MSSA bacteremia long-term antibiotics and his renal function progressively deteriorated. Patient initially refused outpatient dialysis then went into respiratory arrest requiring intubation and mechanical ventilation and was transferred to ICU. Patient family gave consent for hemodialysis and the patient remains intubated in the ICU. Neurology Consult for called for prognostication Past History Past Medical History: diabetes, hypertension, renal failure, stroke, other (Depression, recent MSSA bacteremia) Past Surgical History: No surgical history Social history: alcohol abuse, other (Substance abuse) Family history: no significant family history Medications and Allergies Allergies Allergy/AdvReac Type Severity Reaction Status Date / Time No Known Allergies Allergy Verified 06/19/19 17:53 Home Medications Medication Instructions Recorded Confirmed Last Taken Type FLUoxetine [PROzac] 20 mg PO QDAY #14 capsule 06/23/19 06/21/20 Unknown Rx traZODone [Desyrel] 50 mg PO QHS #10 tablet 06/23/19 06/21/20 Unknown Rx Folic Acid 1 mg PO DAILY #30 tablet 06/25/19 06/21/20 Unknown Rx Nicotine [Habitrol] 14 mg TD DAILY #30 patch 06/25/19 06/21/20 Unknown Rx Thiamine [Vitamin B-1] 100 mg PO QDAY #30 tablet 06/25/19 06/21/20 Unknown Rx Aspirin EC [Halfprin EC] 81 mg PO QDAY #30 tablet. 07/26/19 06/21/20 Unknown Rx levETIRAcetam [Keppra TAB] 750 mg PO BID #60 tablet 07/26/19 06/21/20 Unknown Rx Furosemide [Lasix TAB] 40 mg PO QDAY #30 tablet 04/28/20 06/21/20 Unknown Rx Famotidine [Pepcid] 20 mg PO BID #60 tablet 07/05/20 Unknown Rx Insulin NPH, Human [NovoLIN N] 5 unit SUB-Q BIDDIAB 30 Days #10 ml 07/05/20 06/21/20 Unknown Rx amLODIPine 10 mg PO QDAY #30 tablet 07/05/20 Unknown Rx carvediloL [Coreg] 12.5 mg PO BID #60 tablet 07/05/20 Unknown Rx hydrALAZINE [Apresoline TAB] 50 mg PO Q8HR #30 tablet 07/06/20 Unknown Rx Active Meds: Active Medications Lipase/Protease/Amylase (Lipase 10,500/Protease 25,000/Amylase 43,750 (Units) Dr Cap) 1 each FEEDTUBE PRN PRN PRN Reason: For Clogged Feeding Tube Aspirin (Aspirin Ec 81 Mg Tab) 81 mg PO QDAY FORMERLY [facility], [facility]1983 Last Admin: 07/31/20 09:28 Dose: 81 mg Documented by: Atropine Sulfate (Atropine 0.1% (1 Mg/10 Ml) Cardiac Syringe) 1 mg IV PRN PRN PRN Reason: Bradycardia Last Admin: 07/23/20 22:15 Dose: 1 mg Documented by: Dextrose (Dextrose 50% In Water (25gm) 50 Ml Syringe) 50 ml IV Q30MIN PRN; Protocol PRN Reason: Hypoglycemia Last Admin: 07/23/20 06:00 Dose: 50 ml Documented by: Famotidine (Famotidine 20 Mg Tab) 20 mg PO DAILY [facility], [facility]–1983 Last Admin: 07/31/20 09:28 Dose: 20 mg Documented by: Fluoxetine HCl (Fluoxetine 20 Mg Cap) 20 mg PO QDAY [facility], [facility]1983 Last Admin: 07/31/20 09:28 Dose: 20 mg Documented by: Folic Acid (Folic Acid 1 Mg Tab) 1 mg PO DAILY [facility], [facility]1983 Last Admin: 07/31/20 09:28 Dose: 1 mg Documented by: Hydralazine HCl (Hydralazine 25 Mg Tab) 50 mg PO Q8HR [facility], [facility]1983 Last Admin: 07/31/20 21:05 Dose: Not Given Documented by: Hydralazine HCl (Hydralazine 20 Mg/1 Ml Inj) 20 mg IV Q4HR PRN PRN Reason: Blood Pressure Hydrophilic Ointment (Lip Therapy Vaseline) 1 applic TP Q2HR PRN PRN Reason: Dry Lips Norepinephrine (Levophed Drip 4 Mg/Ns 250 Ml) 4 mg in 250 mls @ 7.5 mls/hr IV TITR [facility], [facility]; Protocol Last Titration: 07/24/20 15:35 Dose: 0 mcg/min, 0 mls/hr Documented by: Sodium Chloride (Nacl 0.9%) 100 mls @ 999 mls/hr IV FRANCISCO PRN PRN Reason: Hypotension Insulin Glargine (Insulin Glargine 100 Units/Ml) 10 units SUB-Q QHS [facility], [facility] Last Admin: 07/31/20 21:05 Dose: 10 units Documented by: Insulin Human Lispro (Insulin Lispro 100 Unit/Ml) 0 unit SUB-Q Q6HR [facility], [facility]; Protocol Last Admin: 07/31/20 17:28 Dose: Not Given Documented by: Levetiracetam (Levetiracetam 500 Mg/5 Ml Oral Liqd) 750 mg PO BID [facility], [facility] Last Admin: 07/31/20 21:04 Dose: 750 mg Documented by: Multi-Ingred Cream/Lotion/Oil/Oint (Mineral Oil/Petrolatum, White Ophth Oint 3.5 Gm) 1 applic OU Q4HR PRN PRN Reason: Dry Eye(s) Scopolamine (Scopolamine Transdermal Patch 72 Hr) 1 each TD Q3D [facility], [facility] Last Admin: 07/31/20 11:00 Dose: 1 each Documented by: Simple Syrup (Simple Syrup 15 Ml) 15 ml FEEDTUBE PRN PRN PRN Reason: Hypoglycemia Simple Syrup (Simple Syrup 15 Ml) 30 ml FEEDTUBE PRN PRN PRN Reason: Hypoglycemia Sodium Bicarbonate (Sodium Bicarbonate 325 Mg Tab) 325 mg FEEDTUBE PRN PRN PRN Reason: For Clogged Feeding Tube Thiamine HCl (Thiamine 100 Mg Tab) 100 mg PO QDAY [facility], [facility] Last Admin: 07/31/20 09:28 Dose: 100 mg Documented by: Trazodone HCl (Trazodone 50 Mg Tab) 50 mg PO QHS [facility], [facility] Last Admin: 07/31/20 21:05 Dose: 50 mg Documented by: Physical Examination - Vital Signs Vital Signs: Vital Signs Pulse Resp 53 L 13 07/18/20 07:17 07/18/20 07:17 Results - Laboratory Findings CBC and BMP: 07/31/20 05:10 07/30/20 09:05 Abnormal Lab Findings: Abnormal Labs 07/18/20 07/18/20 07/18/20 08:56 08:56 08:56 WBC 3.5 L RBC 2.51 L Hgb 8.0 L Hct 24.5 L MCV 98 H RDW 18.3 H Plt Count 58 L Lymph % (Auto) [place] % (Auto) 11.1 H Lymph # (Auto) [place] # (Auto) Seg Neutrophils % Seg Neuts % (Manual) Lymphocytes % (Manual) Nucleated RBC % Seg Neutrophils # Man Lymphocytes # (Manual) PT INR 1.18 H APTT D-Dimer ABG pH POC ABG pCO2 POC ABG pO2 ABG pO2 ABG HCO3 ABG Base Excess ABG Hemoglobin ABG Oxyhemoglobin ABG Potassium ABG Chloride ABG Glucose Oxyhemoglobin Carboxyhemoglobin Sodium 146 H Potassium 5.2 H Chloride 117.3 H Carbon Dioxide 21 L BUN 52 H Creatinine 3.1 H Glucose 118 H POC Glucose Calcium 8.1 L Phosphorus AST ALT Alkaline Phosphatase Lactate Dehydrogenase CK-MB (CK-2) CK-MB (CK-2) Rel Index Troponin T 0.057 H C-Reactive Protein NT-Pro-B Natriuret Pep Albumin HDL Cholesterol 67 H TSH Arterial Blood Glucose Arterial Blood Ionized Calcium Hepatitis C Antibody Crossmatch 07/18/20 07/18/20 07/18/20 08:56 08:56 08:56 WBC RBC Hgb Hct MCV RDW Plt Count Lymph % (Auto) [place] % (Auto) Lymph # (Auto) [place] # (Auto) Seg Neutrophils % Seg Neuts % (Manual) Lymphocytes % (Manual) Nucleated RBC % Seg Neutrophils # Man Lymphocytes # (Manual) PT INR APTT D-Dimer 1036.46 H ABG pH POC ABG pCO2 POC ABG pO2 ABG pO2 ABG HCO3 ABG Base Excess ABG Hemoglobin ABG Oxyhemoglobin ABG Potassium ABG Chloride ABG Glucose Oxyhemoglobin Carboxyhemoglobin Sodium Potassium Chloride Carbon Dioxide BUN Creatinine Glucose POC Glucose Calcium Phosphorus AST ALT Alkaline Phosphatase Lactate Dehydrogenase CK-MB (CK-2) CK-MB (CK-2) Rel Index Troponin T C-Reactive Protein NT-Pro-B Natriuret Pep 4777 H Albumin HDL Cholesterol TSH 5.520 H Arterial Blood Glucose Arterial Blood Ionized Calcium Hepatitis C Antibody Crossmatch 07/18/20 07/18/20 07/18/20 10:36 18:56 19:00 WBC RBC Hgb Hct MCV RDW Plt Count Lymph % (Auto) [place] % (Auto) Lymph # (Auto) [place] # (Auto) Seg Neutrophils % Seg Neuts % (Manual) Lymphocytes % (Manual) Nucleated RBC % Seg Neutrophils # Man Lymphocytes # (Manual) PT INR APTT D-Dimer ABG pH POC ABG pCO2 POC ABG pO2 ABG pO2 ABG HCO3 ABG Base Excess ABG Hemoglobin ABG Oxyhemoglobin ABG Potassium ABG Chloride ABG Glucose Oxyhemoglobin Carboxyhemoglobin Sodium Potassium Chloride Carbon Dioxide BUN Creatinine Glucose 101 H POC Glucose 66 L 63 L Calcium Phosphorus AST ALT Alkaline Phosphatase Lactate Dehydrogenase 212 H CK-MB (CK-2) CK-MB (CK-2) Rel Index Troponin T C-Reactive Protein 2.10 H NT-Pro-B Natriuret Pep Albumin HDL Cholesterol TSH Arterial Blood Glucose Arterial Blood Ionized Calcium Hepatitis C Antibody Crossmatch 07/19/20 07/19/20 07/19/20 06:00 06:00 16:26 WBC 3.9 L RBC 2.34 L Hgb 7.5 L Hct 23.1 L MCV 99 H RDW 18.6 H Plt Count 52 L Lymph % (Auto) [place] % (Auto) 9.4 H Lymph # (Auto) 1.0 L [place] # (Auto) Seg Neutrophils % Seg Neuts % (Manual) Lymphocytes % (Manual) Nucleated RBC % Seg Neutrophils # Man Lymphocytes # (Manual) PT INR APTT D-Dimer ABG pH POC ABG pCO2 POC ABG pO2 ABG pO2 ABG HCO3 ABG Base Excess ABG Hemoglobin ABG Oxyhemoglobin ABG Potassium ABG Chloride ABG Glucose Oxyhemoglobin Carboxyhemoglobin Sodium Potassium 5.3 H Chloride 115.8 H Carbon Dioxide BUN 52 H Creatinine 3.4 H Glucose 114 H POC Glucose 123 H Calcium 7.7 L Phosphorus AST 77 H ALT < 5 L Alkaline Phosphatase 678 H Lactate Dehydrogenase CK-MB (CK-2) CK-MB (CK-2) Rel Index Troponin T C-Reactive Protein NT-Pro-B Natriuret Pep Albumin 2.2 L HDL Cholesterol TSH Arterial Blood Glucose Arterial Blood Ionized Calcium Hepatitis C Antibody Crossmatch 07/19/20 07/20/20 07/20/20 21:20 08:25 08:25 WBC 3.6 L RBC 2.54 L Hgb 8.0 L Hct 24.6 L MCV 97 H RDW 18.0 H Plt Count 47 L Lymph % (Auto) [place] % (Auto) 9.8 H Lymph # (Auto) 0.9 L [place] # (Auto) Seg Neutrophils % Seg Neuts % (Manual) Lymphocytes % (Manual) Nucleated RBC % Seg Neutrophils # Man Lymphocytes # (Manual) PT INR APTT D-Dimer ABG pH POC ABG pCO2 POC ABG pO2 ABG pO2 ABG HCO3 ABG Base Excess ABG Hemoglobin ABG Oxyhemoglobin ABG Potassium ABG Chloride ABG Glucose Oxyhemoglobin Carboxyhemoglobin Sodium Potassium 5.4 H Chloride 115.8 H Carbon Dioxide BUN 56 H Creatinine 3.8 H Glucose 110 H POC Glucose 142 H Calcium 7.9 L Phosphorus AST ALT Alkaline Phosphatase Lactate Dehydrogenase CK-MB (CK-2) CK-MB (CK-2) Rel Index Troponin T C-Reactive Protein NT-Pro-B Natriuret Pep Albumin HDL Cholesterol TSH Arterial Blood Glucose Arterial Blood Ionized Calcium Hepatitis C Antibody Crossmatch 07/20/20 07/20/20 07/20/20 11:27 16:34 21:27 WBC RBC Hgb Hct MCV RDW Plt Count Lymph % (Auto) [place] % (Auto) Lymph # (Auto) [place] # (Auto) Seg Neutrophils % Seg Neuts % (Manual) Lymphocytes % (Manual) Nucleated RBC % Seg Neutrophils # Man Lymphocytes # (Manual) PT INR APTT D-Dimer ABG pH POC ABG pCO2 POC ABG pO2 ABG pO2 ABG HCO3 ABG Base Excess ABG Hemoglobin ABG Oxyhemoglobin ABG Potassium ABG Chloride ABG Glucose Oxyhemoglobin Carboxyhemoglobin Sodium Potassium Chloride Carbon Dioxide BUN Creatinine Glucose POC Glucose 136 H 186 H 175 H Calcium Phosphorus AST ALT Alkaline Phosphatase Lactate Dehydrogenase CK-MB (CK-2) CK-MB (CK-2) Rel Index Troponin T C-Reactive Protein NT-Pro-B Natriuret Pep Albumin HDL Cholesterol TSH Arterial Blood Glucose Arterial Blood Ionized Calcium Hepatitis C Antibody Crossmatch 07/21/20 07/22/20 07/22/20 10:31 07:25 10:30 WBC 3.8 L RBC 2.53 L Hgb 7.9 L Hct 24.7 L MCV 98 H RDW 18.7 H Plt Count 35 L Lymph % (Auto) [place] % (Auto) Lymph # (Auto) [place] # (Auto) Seg Neutrophils % Seg Neuts % (Manual) 92.0 H Lymphocytes % (Manual) 6.0 L Nucleated RBC % 13.0 H Seg Neutrophils # Man Lymphocytes # (Manual) 0.2 L PT INR APTT D-Dimer ABG pH POC ABG pCO2 POC ABG pO2 ABG pO2 ABG HCO3 ABG Base Excess ABG Hemoglobin ABG Oxyhemoglobin ABG Potassium ABG Chloride ABG Glucose Oxyhemoglobin Carboxyhemoglobin Sodium Potassium 5.3 H 5.6 H Chloride 115.0 H 115.1 H Carbon Dioxide 18 L BUN 59 H 61 H Creatinine 4.3 H 4.6 H Glucose 109 H POC Glucose Calcium 7.6 L 7.6 L Phosphorus AST ALT Alkaline Phosphatase Lactate Dehydrogenase CK-MB (CK-2) CK-MB (CK-2) Rel Index Troponin T C-Reactive Protein NT-Pro-B Natriuret Pep Albumin HDL Cholesterol TSH Arterial Blood Glucose Arterial Blood Ionized Calcium Hepatitis C Antibody Crossmatch 07/22/20 07/22/20 07/22/20 10:30 10:30 10:30 WBC RBC Hgb Hct MCV RDW Plt Count Lymph % (Auto) [place] % (Auto) Lymph # (Auto) [place] # (Auto) Seg Neutrophils % Seg Neuts % (Manual) Lymphocytes % (Manual) Nucleated RBC % Seg Neutrophils # Man Lymphocytes # (Manual) PT 15.9 H INR 1.27 H APTT 38.3 H D-Dimer ABG pH POC ABG pCO2 POC ABG pO2 ABG pO2 ABG HCO3 ABG Base Excess ABG Hemoglobin ABG Oxyhemoglobin ABG Potassium ABG Chloride ABG Glucose Oxyhemoglobin Carboxyhemoglobin Sodium 146 H Potassium 5.4 H Chloride 116.4 H Carbon Dioxide BUN 61 H Creatinine 4.6 H Glucose 115 H POC Glucose Calcium 7.5 L Phosphorus 5.80 H AST 66 H ALT < 5 L Alkaline Phosphatase 604 H Lactate Dehydrogenase CK-MB (CK-2) 10.9 H CK-MB (CK-2) Rel Index 16.2 H Troponin T 0.047 H C-Reactive Protein NT-Pro-B Natriuret Pep Albumin 2.1 L HDL Cholesterol TSH Arterial Blood Glucose Arterial Blood Ionized Calcium Hepatitis C Antibody Crossmatch 07/22/20 07/23/20 07/23/20 11:10 03:38 03:47 WBC RBC Hgb Hct MCV RDW Plt Count Lymph % (Auto) [place] % (Auto) Lymph # (Auto) [place] # (Auto) Seg Neutrophils % Seg Neuts % (Manual) Lymphocytes % (Manual) Nucleated RBC % Seg Neutrophils # Man Lymphocytes # (Manual) PT INR APTT D-Dimer ABG pH 7.203 L POC ABG pCO2 48.7 H 29.7 L POC ABG pO2 80.6 L 267.3 H ABG pO2 ABG HCO3 ABG Base Excess ABG Hemoglobin 8.6 L 8.2 L ABG Oxyhemoglobin 91.1 L 98.2 H ABG Potassium 5.4 H 5.4 H ABG Chloride 122.0 H 122.0 H ABG Glucose 105 H 101 H Oxyhemoglobin Carboxyhemoglobin 2.0 H Sodium Potassium Chloride Carbon Dioxide BUN Creatinine Glucose POC Glucose 65 L Calcium Phosphorus AST ALT Alkaline Phosphatase Lactate Dehydrogenase CK-MB (CK-2) CK-MB (CK-2) Rel Index Troponin T C-Reactive Protein NT-Pro-B Natriuret Pep Albumin HDL Cholesterol TSH Arterial Blood Glucose 105 H 101 H Arterial Blood Ionized Calcium 4.5 L 4.4 L Hepatitis C Antibody Crossmatch 07/23/20 07/23/20 07/23/20 06:05 06:05 06:27 WBC RBC 2.36 L Hgb 7.5 L Hct 22.7 L MCV 96 H RDW 18.9 H Plt Count 42 L Lymph % (Auto) [place] % (Auto) Lymph # (Auto) [place] # (Auto) Seg Neutrophils % Seg Neuts % (Manual) Lymphocytes % (Manual) Nucleated RBC % Seg Neutrophils # Man Lymphocytes # (Manual) PT INR APTT D-Dimer ABG pH POC ABG pCO2 POC ABG pO2 ABG pO2 ABG HCO3 ABG Base Excess ABG Hemoglobin ABG Oxyhemoglobin ABG Potassium ABG Chloride ABG Glucose Oxyhemoglobin Carboxyhemoglobin Sodium Potassium 5.6 H Chloride 114.1 H Carbon Dioxide 17 L BUN 62 H Creatinine 5.1 H Glucose 215 H POC Glucose 114 H Calcium 7.3 L Phosphorus AST ALT Alkaline Phosphatase Lactate Dehydrogenase CK-MB (CK-2) CK-MB (CK-2) Rel Index Troponin T C-Reactive Protein NT-Pro-B Natriuret Pep Albumin HDL Cholesterol TSH Arterial Blood Glucose Arterial Blood Ionized Calcium Hepatitis C Antibody Crossmatch 07/23/20 07/23/20 07/24/20 11:36 19:20 04:00 WBC RBC Hgb Hct MCV RDW Plt Count Lymph % (Auto) [place] % (Auto) Lymph # (Auto) [place] # (Auto) Seg Neutrophils % Seg Neuts % (Manual) Lymphocytes % (Manual) Nucleated RBC % Seg Neutrophils # Man Lymphocytes # (Manual) PT INR APTT D-Dimer ABG pH POC ABG pCO2 POC ABG pO2 ABG pO2 ABG HCO3 ABG Base Excess ABG Hemoglobin ABG Oxyhemoglobin ABG Potassium ABG Chloride ABG Glucose Oxyhemoglobin Carboxyhemoglobin Sodium Potassium Chloride 110.8 H Carbon Dioxide BUN 47 H Creatinine 4.4 H Glucose POC Glucose 66 L Calcium 7.3 L Phosphorus AST ALT Alkaline Phosphatase Lactate Dehydrogenase CK-MB (CK-2) CK-MB (CK-2) Rel Index Troponin T C-Reactive Protein NT-Pro-B Natriuret Pep Albumin HDL Cholesterol TSH Arterial Blood Glucose Arterial Blood Ionized Calcium Hepatitis C Antibody Reactive A Crossmatch 07/24/20 07/24/20 07/24/20 04:25 11:37 Unknown WBC RBC 2.36 L Hgb 7.5 L Hct 22.5 L MCV 95 H RDW 18.4 H Plt Count 38 L Lymph % (Auto) [place] % (Auto) Lymph # (Auto) [place] # (Auto) Seg Neutrophils % Seg Neuts % (Manual) Lymphocytes % (Manual) Nucleated RBC % Seg Neutrophils # Man Lymphocytes # (Manual) PT INR APTT D-Dimer ABG pH POC ABG pCO2 POC ABG pO2 64.8 L ABG pO2 ABG HCO3 ABG Base Excess ABG Hemoglobin 7.9 L ABG Oxyhemoglobin ABG Potassium ABG Chloride 114.0 H ABG Glucose Oxyhemoglobin Carboxyhemoglobin Sodium Potassium Chloride Carbon Dioxide BUN Creatinine Glucose POC Glucose 109 H Calcium Phosphorus AST ALT Alkaline Phosphatase Lactate Dehydrogenase CK-MB (CK-2) CK-MB (CK-2) Rel Index Troponin T C-Reactive Protein NT-Pro-B Natriuret Pep Albumin HDL Cholesterol TSH Arterial Blood Glucose Arterial Blood Ionized Calcium 4.2 L Hepatitis C Antibody Crossmatch 07/25/20 07/25/20 07/25/20 00:12 03:57 04:00 WBC RBC Hgb Hct MCV RDW Plt Count Lymph % (Auto) [place] % (Auto) Lymph # (Auto) [place] # (Auto) Seg Neutrophils % Seg Neuts % (Manual) Lymphocytes % (Manual) Nucleated RBC % Seg Neutrophils # Man Lymphocytes # (Manual) PT INR APTT D-Dimer ABG pH 7.497 H POC ABG pCO2 POC ABG pO2 62.7 L ABG pO2 ABG HCO3 ABG Base Excess ABG Hemoglobin 8.5 L ABG Oxyhemoglobin 90.1 L ABG Potassium ABG Chloride 110.0 H ABG Glucose 157 H Oxyhemoglobin Carboxyhemoglobin Sodium Potassium Chloride Carbon Dioxide BUN 38 H Creatinine 4.1 H Glucose 160 H POC Glucose 140 H Calcium 7.9 L Phosphorus AST ALT Alkaline Phosphatase Lactate Dehydrogenase CK-MB (CK-2) CK-MB (CK-2) Rel Index Troponin T C-Reactive Protein NT-Pro-B Natriuret Pep Albumin HDL Cholesterol TSH Arterial Blood Glucose 157 H Arterial Blood Ionized Calcium 4.3 L Hepatitis C Antibody Crossmatch 07/25/20 07/25/20 07/25/20 04:00 06:24 12:11 WBC RBC 2.48 L Hgb 7.7 L Hct 23.2 L MCV RDW 18.4 H Plt Count 44 L Lymph % (Auto) [place] % (Auto) 8.5 H Lymph # (Auto) [place] # (Auto) Seg Neutrophils % 76.7 H Seg Neuts % (Manual) Lymphocytes % (Manual) Nucleated RBC % Seg Neutrophils # Man Lymphocytes # (Manual) PT INR APTT D-Dimer ABG pH POC ABG pCO2 POC ABG pO2 ABG pO2 ABG HCO3 ABG Base Excess ABG Hemoglobin ABG Oxyhemoglobin ABG Potassium ABG Chloride ABG Glucose Oxyhemoglobin Carboxyhemoglobin Sodium Potassium Chloride Carbon Dioxide BUN Creatinine Glucose POC Glucose 155 H 205 H Calcium Phosphorus AST ALT Alkaline Phosphatase Lactate Dehydrogenase CK-MB (CK-2) CK-MB (CK-2) Rel Index Troponin T C-Reactive Protein NT-Pro-B Natriuret Pep Albumin HDL Cholesterol TSH Arterial Blood Glucose Arterial Blood Ionized Calcium Hepatitis C Antibody Crossmatch 07/25/20 07/26/20 07/26/20 17:41 00:18 03:54 WBC RBC Hgb Hct MCV RDW Plt Count Lymph % (Auto) [place] % (Auto) Lymph # (Auto) [place] # (Auto) Seg Neutrophils % Seg Neuts % (Manual) Lymphocytes % (Manual) Nucleated RBC % Seg Neutrophils # Man Lymphocytes # (Manual) PT INR APTT D-Dimer ABG pH 7.512 H POC ABG pCO2 POC ABG pO2 ABG pO2 121.2 H ABG HCO3 27.1 H ABG Base Excess 3.6 H ABG Hemoglobin < 5.1 L ABG Oxyhemoglobin ABG Potassium ABG Chloride ABG Glucose Oxyhemoglobin Carboxyhemoglobin Sodium Potassium Chloride Carbon Dioxide BUN Creatinine Glucose POC Glucose 227 H 198 H Calcium Phosphorus AST ALT Alkaline Phosphatase Lactate Dehydrogenase CK-MB (CK-2) CK-MB (CK-2) Rel Index Troponin T C-Reactive Protein NT-Pro-B Natriuret Pep Albumin HDL Cholesterol TSH Arterial Blood Glucose Arterial Blood Ionized Calcium Hepatitis C Antibody Crossmatch 07/26/20 07/26/20 07/26/20 06:31 07:00 12:09 WBC RBC 2.33 L Hgb 7.4 L Hct 21.6 L MCV RDW 18.0 H Plt Count 50 L Lymph % (Auto) 13.0 L [place] % (Auto) Lymph # (Auto) [place] # (Auto) Seg Neutrophils % 79.8 H Seg Neuts % (Manual) Lymphocytes % (Manual) Nucleated RBC % Seg Neutrophils # Man Lymphocytes # (Manual) PT INR APTT D-Dimer ABG pH POC ABG pCO2 POC ABG pO2 ABG pO2 ABG HCO3 ABG Base Excess ABG Hemoglobin ABG Oxyhemoglobin ABG Potassium ABG Chloride ABG Glucose Oxyhemoglobin Carboxyhemoglobin Sodium Potassium Chloride Carbon Dioxide BUN Creatinine Glucose POC Glucose 223 H 250 H Calcium Phosphorus AST ALT Alkaline Phosphatase Lactate Dehydrogenase CK-MB (CK-2) CK-MB (CK-2) Rel Index Troponin T C-Reactive Protein NT-Pro-B Natriuret Pep Albumin HDL Cholesterol TSH Arterial Blood Glucose Arterial Blood Ionized Calcium Hepatitis C Antibody Crossmatch 07/26/20 07/26/20 07/27/20 17:40 23:26 05:20 WBC RBC Hgb Hct MCV RDW Plt Count Lymph % (Auto) [place] % (Auto) Lymph # (Auto) [place] # (Auto) Seg Neutrophils % Seg Neuts % (Manual) Lymphocytes % (Manual) Nucleated RBC % Seg Neutrophils # Man Lymphocytes # (Manual) PT INR APTT D-Dimer ABG pH 7.520 H POC ABG pCO2 POC ABG pO2 ABG pO2 64.2 L ABG HCO3 26.8 H ABG Base Excess 3.7 H ABG Hemoglobin 7.2 L ABG Oxyhemoglobin ABG Potassium ABG Chloride ABG Glucose Oxyhemoglobin 93.2 L Carboxyhemoglobin Sodium Potassium Chloride Carbon Dioxide BUN Creatinine Glucose POC Glucose 226 H 176 H Calcium Phosphorus AST ALT Alkaline Phosphatase Lactate Dehydrogenase CK-MB (CK-2) CK-MB (CK-2) Rel Index Troponin T C-Reactive Protein NT-Pro-B Natriuret Pep Albumin HDL Cholesterol TSH Arterial Blood Glucose Arterial Blood Ionized Calcium Hepatitis C Antibody Crossmatch 07/27/20 07/27/20 07/27/20 05:42 06:36 06:36 WBC RBC 2.23 L Hgb 7.0 L Hct 20.7 L MCV RDW 18.4 H Plt Count 56 L Lymph % (Auto) [place] % (Auto) Lymph # (Auto) [place] # (Auto) Seg Neutrophils % Seg Neuts % (Manual) 88.0 H Lymphocytes % (Manual) 11.0 L Nucleated RBC % 2.0 H Seg Neutrophils # Man 8.9 H Lymphocytes # (Manual) 1.1 L PT INR APTT D-Dimer ABG pH POC ABG pCO2 POC ABG pO2 ABG pO2 ABG HCO3 ABG Base Excess ABG Hemoglobin ABG Oxyhemoglobin ABG Potassium ABG Chloride ABG Glucose Oxyhemoglobin Carboxyhemoglobin Sodium Potassium Chloride Carbon Dioxide BUN 43 H Creatinine 4.4 H Glucose 162 H POC Glucose 142 H Calcium 8.2 L Phosphorus AST ALT Alkaline Phosphatase Lactate Dehydrogenase CK-MB (CK-2) CK-MB (CK-2) Rel Index Troponin T C-Reactive Protein NT-Pro-B Natriuret Pep Albumin HDL Cholesterol TSH Arterial Blood Glucose Arterial Blood Ionized Calcium Hepatitis C Antibody Crossmatch 07/27/20 07/27/20 07/27/20 11:42 17:37 23:15 WBC RBC Hgb Hct MCV RDW Plt Count Lymph % (Auto) [place] % (Auto) Lymph # (Auto) [place] # (Auto) Seg Neutrophils % Seg Neuts % (Manual) Lymphocytes % (Manual) Nucleated RBC % Seg Neutrophils # Man Lymphocytes # (Manual) PT INR APTT D-Dimer ABG pH POC ABG pCO2 POC ABG pO2 ABG pO2 ABG HCO3 ABG Base Excess ABG Hemoglobin ABG Oxyhemoglobin ABG Potassium ABG Chloride ABG Glucose Oxyhemoglobin Carboxyhemoglobin Sodium Potassium Chloride Carbon Dioxide BUN Creatinine Glucose POC Glucose 134 H 169 H 173 H Calcium Phosphorus AST ALT Alkaline Phosphatase Lactate Dehydrogenase CK-MB (CK-2) CK-MB (CK-2) Rel Index Troponin T C-Reactive Protein NT-Pro-B Natriuret Pep Albumin HDL Cholesterol TSH Arterial Blood Glucose Arterial Blood Ionized Calcium Hepatitis C Antibody Crossmatch 07/28/20 07/28/20 07/28/20 04:00 05:14 10:15 WBC RBC 2.13 L Hgb 6.8 L Hct 19.9 L* MCV RDW 18.4 H Plt Count 55 L Lymph % (Auto) [place] % (Auto) 9.1 H Lymph # (Auto) [place] # (Auto) 0.9 H Seg Neutrophils % 74.5 H Seg Neuts % (Manual) Lymphocytes % (Manual) Nucleated RBC % Seg Neutrophils # Man Lymphocytes # (Manual) PT INR APTT D-Dimer ABG pH POC ABG pCO2 POC ABG pO2 ABG pO2 ABG HCO3 ABG Base Excess ABG Hemoglobin ABG Oxyhemoglobin ABG Potassium ABG Chloride ABG Glucose Oxyhemoglobin Carboxyhemoglobin Sodium Potassium Chloride Carbon Dioxide BUN Creatinine Glucose POC Glucose 169 H Calcium Phosphorus AST ALT Alkaline Phosphatase Lactate Dehydrogenase CK-MB (CK-2) CK-MB (CK-2) Rel Index Troponin T C-Reactive Protein NT-Pro-B Natriuret Pep Albumin HDL Cholesterol TSH Arterial Blood Glucose Arterial Blood Ionized Calcium Hepatitis C Antibody Crossmatch See Detail 07/28/20 07/28/20 07/28/20 11:32 17:28 23:58 WBC RBC Hgb Hct MCV RDW Plt Count Lymph % (Auto) [place] % (Auto) Lymph # (Auto) [place] # (Auto) Seg Neutrophils % Seg Neuts % (Manual) Lymphocytes % (Manual) Nucleated RBC % Seg Neutrophils # Man Lymphocytes # (Manual) PT INR APTT D-Dimer ABG pH POC ABG pCO2 POC ABG pO2 ABG pO2 ABG HCO3 ABG Base Excess ABG Hemoglobin ABG Oxyhemoglobin ABG Potassium ABG Chloride ABG Glucose Oxyhemoglobin Carboxyhemoglobin Sodium Potassium Chloride Carbon Dioxide BUN Creatinine Glucose POC Glucose 185 H 208 H 227 H Calcium Phosphorus AST ALT Alkaline Phosphatase Lactate Dehydrogenase CK-MB (CK-2) CK-MB (CK-2) Rel Index Troponin T C-Reactive Protein NT-Pro-B Natriuret Pep Albumin HDL Cholesterol TSH Arterial Blood Glucose Arterial Blood Ionized Calcium Hepatitis C Antibody Crossmatch 07/29/20 07/29/20 07/29/20 05:37 12:04 17:11 WBC RBC Hgb Hct MCV RDW Plt Count Lymph % (Auto) [place] % (Auto) Lymph # (Auto) [place] # (Auto) Seg Neutrophils % Seg Neuts % (Manual) Lymphocytes % (Manual) Nucleated RBC % Seg Neutrophils # Man Lymphocytes # (Manual) PT INR APTT D-Dimer ABG pH POC ABG pCO2 POC ABG pO2 ABG pO2 ABG HCO3 ABG Base Excess ABG Hemoglobin ABG Oxyhemoglobin ABG Potassium ABG Chloride ABG Glucose Oxyhemoglobin Carboxyhemoglobin Sodium Potassium Chloride Carbon Dioxide BUN Creatinine Glucose POC Glucose 225 H 201 H 185 H Calcium Phosphorus AST ALT Alkaline Phosphatase Lactate Dehydrogenase CK-MB (CK-2) CK-MB (CK-2) Rel Index Troponin T C-Reactive Protein NT-Pro-B Natriuret Pep Albumin HDL Cholesterol TSH Arterial Blood Glucose Arterial Blood Ionized Calcium Hepatitis C Antibody Crossmatch 07/29/20 07/30/20 07/30/20 23:48 05:38 09:05 WBC RBC 2.49 L Hgb 7.7 L Hct 23.1 L MCV RDW 20.5 H Plt Count 54 L Lymph % (Auto) [place] % (Auto) Lymph # (Auto) [place] # (Auto) Seg Neutrophils % Seg Neuts % (Manual) Lymphocytes % (Manual) Nucleated RBC % Seg Neutrophils # Man Lymphocytes # (Manual) PT INR APTT D-Dimer ABG pH POC ABG pCO2 POC ABG pO2 ABG pO2 ABG HCO3 ABG Base Excess ABG Hemoglobin ABG Oxyhemoglobin ABG Potassium ABG Chloride ABG Glucose Oxyhemoglobin Carboxyhemoglobin Sodium Potassium Chloride Carbon Dioxide BUN Creatinine Glucose POC Glucose 209 H 205 H Calcium Phosphorus AST ALT Alkaline Phosphatase Lactate Dehydrogenase CK-MB (CK-2) CK-MB (CK-2) Rel Index Troponin T C-Reactive Protein NT-Pro-B Natriuret Pep Albumin HDL Cholesterol TSH Arterial Blood Glucose Arterial Blood Ionized Calcium Hepatitis C Antibody Crossmatch 07/30/20 07/30/20 07/30/20 09:05 11:42 17:46 WBC RBC Hgb Hct MCV RDW Plt Count Lymph % (Auto) [place] % (Auto) Lymph # (Auto) [place] # (Auto) Seg Neutrophils % Seg Neuts % (Manual) Lymphocytes % (Manual) Nucleated RBC % Seg Neutrophils # Man Lymphocytes # (Manual) PT INR APTT D-Dimer ABG pH POC ABG pCO2 POC ABG pO2 ABG pO2 ABG HCO3 ABG Base Excess ABG Hemoglobin ABG Oxyhemoglobin ABG Potassium ABG Chloride ABG Glucose Oxyhemoglobin Carboxyhemoglobin Sodium 135 L Potassium Chloride Carbon Dioxide BUN 52 H Creatinine 4.1 H Glucose 236 H POC Glucose 224 H 195 H Calcium Phosphorus AST ALT Alkaline Phosphatase Lactate Dehydrogenase CK-MB (CK-2) CK-MB (CK-2) Rel Index Troponin T C-Reactive Protein NT-Pro-B Natriuret Pep Albumin HDL Cholesterol TSH Arterial Blood Glucose Arterial Blood Ionized Calcium Hepatitis C Antibody Crossmatch 07/30/20 07/30/20 07/31/20 21:09 23:45 05:10 WBC RBC 2.46 L Hgb 7.6 L Hct 22.6 L MCV RDW 19.4 H Plt Count 77 L Lymph % (Auto) [place] % (Auto) Lymph # (Auto) [place] # (Auto) Seg Neutrophils % Seg Neuts % (Manual) Lymphocytes % (Manual) Nucleated RBC % Seg Neutrophils # Man Lymphocytes # (Manual) PT INR APTT D-Dimer ABG pH POC ABG pCO2 POC ABG pO2 ABG pO2 ABG HCO3 ABG Base Excess ABG Hemoglobin ABG Oxyhemoglobin ABG Potassium ABG Chloride ABG Glucose Oxyhemoglobin Carboxyhemoglobin Sodium Potassium Chloride Carbon Dioxide BUN Creatinine Glucose POC Glucose 153 H 185 H Calcium Phosphorus AST ALT Alkaline Phosphatase Lactate Dehydrogenase CK-MB (CK-2) CK-MB (CK-2) Rel Index Troponin T C-Reactive Protein NT-Pro-B Natriuret Pep Albumin HDL Cholesterol TSH Arterial Blood Glucose Arterial Blood Ionized Calcium Hepatitis C Antibody Crossmatch 07/31/20 07/31/20 05:17 11:48 WBC RBC Hgb Hct MCV RDW Plt Count Lymph % (Auto) [place] % (Auto) Lymph # (Auto) [place] # (Auto) Seg Neutrophils % Seg Neuts % (Manual) Lymphocytes % (Manual) Nucleated RBC % Seg Neutrophils # Man Lymphocytes # (Manual) PT INR APTT D-Dimer ABG pH POC ABG pCO2 POC ABG pO2 ABG pO2 ABG HCO3 ABG Base Excess ABG Hemoglobin ABG Oxyhemoglobin ABG Potassium ABG Chloride ABG Glucose Oxyhemoglobin Carboxyhemoglobin Sodium Potassium Chloride Carbon Dioxide BUN Creatinine Glucose POC Glucose 163 H 144 H Calcium Phosphorus AST ALT Alkaline Phosphatase Lactate Dehydrogenase CK-MB (CK-2) CK-MB (CK-2) Rel Index Troponin T C-Reactive Protein NT-Pro-B Natriuret Pep Albumin HDL Cholesterol TSH Arterial Blood Glucose Arterial Blood Ionized Calcium Hepatitis C Antibody Crossmatch Assessment and Plan Impression and Plan : 1. Patient is intubated and Gag is present there is no movement in the upper and lower extremity on stimulations . 2. Abnormal CT Brain 3. Based upon the History and CT findings there seems to a significant Hypoxic / Ischemic Brain Insult an clinically the Neurolgical Prognosis is Guarded . 4. EEG is recommended for further Prognostication . DR. Zazueta
[2020-08-01 05:40] LABS: Mean Corpuscular HGB Conc 33 % (32-34); Mean Corpuscular Volume 93 fl (84-94); Red Blood Count 2.26 M/mm3 (3.65-5.03); Red Cell Distribution Width 19.6 % (13.2-15.2)
[2020-08-01 05:43] LABS: Platelet Count 85 K/mm3 (140-440)
[2020-08-01] MEDS: hydrALAZINE 25 MG TAB PO SCH ×3 (05:59→21:46)
[2020-08-01 06:01] LABS: Calcium 7.8 mg/dL (8.4-10.2)
[2020-08-01] MEDS: INSULIN LISPRO 100 UNIT/ML SUB-Q SCH ×4 (06:27→18:43)
[2020-08-01] MEDS: levETIRAcetam 500 MG/5 ML ORAL LIQD PO SCH ×2 (09:55→21:46)
[2020-08-01] MEDS: FOLIC ACID 1 MG TAB PO SCH (09:55)
[2020-08-01] MEDS: FAMOTIDINE 20 MG TAB PO SCH (09:55)
[2020-08-01] MEDS: FLUoxetine 20 MG CAP PO SCH (09:56)
[2020-08-01] MEDS: THIAMINE 100 MG TAB PO SCH (09:56)
--- NOTE | 2020-08-01 09:59 | Progress Note ---
Assessment and Plan - Patient Problems (1) Acute on chronic renal failure Current Visit: Yes Status: Acute Qualifiers: Acute renal failure type: unspecified Chronic kidney disease stage: stage 3 (moderate) Chronic kidney disease stage 3 subtype: stage 3a (GFR 45-59) Qualified Code(s): N17.9 - Acute kidney failure, unspecified; N18.31 - Chronic kidney disease, stage 3a Plan to address problem: Patient has likely underlying chronic kidney disease stage IIIb in the setting of hypertension and diabetes. With worsening renal failure and unresponsiveness to optimal IV diuretic regimen patient was started on hemodialysis therapy. We will adjust his schedule to Thursday with sequential ultrafiltration treatments for Thursday in order to optimize his volume status. We will continue to monitor for signs of renal function and recovery. Overall prognosis is guarded at this time and his neurologic status has not shown any improvement. CT of the head looks concerning for worsening hypoxic ischemic injury. Neurology evaluation reviewed and plan for EEG. (2) Anasarca Current Visit: Yes Status: Acute Plan to address problem: Patient unfortunately did not respond well to optimal IV diuretic regimen. Sec ondary to persistent edema and worsening renal failure he was started on hemodialysis therapy. (3) Anemia Current Visit: Yes Status: Chronic Qualifiers: Anemia type: unspecified type Qualified Code(s): D64.9 - Anemia, unspecified Plan to address problem: Transfuse to maintain hemoglobin above 7. (4) Hyperkalemia Current Visit: Yes Status: Acute Plan to address problem: Correct with hemodialysis. (5) Sepsis Current Visit: Yes Status: Suspected Qualifiers: Sepsis type: sepsis due to unspecified organism Sepsis acute organ dysfunction status: with acute organ dysfunction Severe sepsis acute organ dysfunction type: acute renal failure Acute renal failure type: unspecified Severe sepsis shock status: without septic shock Qualified Code(s): A41.9 - Sepsis, unspecified organism; R65.20 - Severe sepsis without septic shock; N17.9 - Acute kidney failure, unspecified Plan to address problem: Please ensure that antibiotics are dosed appropriate for his decreased renal function. Off pressor support at this time. 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 Unresponsive to optimal diuretic regimen and therefore was transitioned to hemodialysis. (7) Hypertensive chronic kidney disease with stage 1 through stage 4 chronic kidney disease, or unspecified chronic kidney disease Current Visit: No Status: Acute Plan to address problem: We will hold off on all blood pressure medication at this time giving his current hemodynamic status. (8) Type 2 diabetes mellitus with diabetic nephropathy Current Visit: No Status: Acute Plan to address problem: Diabetes managed per primary attending. Subjective Date of service: 08/01/20 Principal diagnosis: RACQUEL Interval history: Plan for hemodialysis today. No acute changes overnight. Neurology evaluation reviewed. Possible need for EEG for further evaluation. Most recent CT of the head does indicate concerns for worsening hypoxic ischemic injury. Objective - Vital Signs Vital signs: Vital Signs - 12hr 07/31/20 07/31/20 07/31/20 22:00 22:30 22:47 Temperature Pulse Rate 76 77 82 Pulse Rate [ From Monitor] Respiratory 18 18 17 Rate Blood Pressure 123/65 130/69 121/63 O2 Sat by Pulse 100 100 99 Oximetry 07/31/20 07/31/20 07/31/20 23:00 23:30 23:49 Temperature 98.0 F Pulse Rate 77 78 Pulse Rate [ From Monitor] Respiratory 19 19 Rate Blood Pressure 121/67 121/68 O2 Sat by Pulse 97 99 Oximetry 08/01/20 08/01/20 08/01/20 00:00 00:30 00:45 Temperature Pulse Rate 80 80 76 Pulse Rate [ 80 From Monitor] Respiratory 19 18 Rate Blood Pressure 123/68 130/71 123/68 O2 Sat by Pulse 100 100 100 Oximetry 08/01/20 08/01/20 08/01/20 01:00 01:30 02:00 Temperature Pulse Rate 78 85 83 Pulse Rate [ From Monitor] Respiratory 18 18 19 Rate Blood Pressure 124/66 120/66 127/69 O2 Sat by Pulse 100 100 99 Oximetry 08/01/20 08/01/20 08/01/20 02:30 03:00 03:30 Temperature Pulse Rate 81 83 82 Pulse Rate [ From Monitor] Respiratory 19 19 18 Rate Blood Pressure 128/68 125/65 126/71 O2 Sat by Pulse 97 95 97 Oximetry 08/01/20 08/01/20 08/01/20 03:40 04:00 04:30 Temperature 98.5 F Pulse Rate 82 82 Pulse Rate [ 82 From Monitor] Respiratory 18 19 Rate Blood Pressure 136/71 135/71 O2 Sat by Pulse 98 100 Oximetry 08/01/20 08/01/20 08/01/20 05:00 05:03 05:30 Temperature Pulse Rate 80 82 81 Pulse Rate [ From Monitor] Respiratory 18 Rate Blood Pressure 134/71 129/71 122/72 O2 Sat by Pulse 100 100 100 Oximetry 08/01/20 08/01/20 08/01/20 05:59 06:00 06:30 Temperature Pulse Rate 82 80 80 Pulse Rate [ From Monitor] Respiratory 18 17 Rate Blood Pressure 136/71 139/76 140/77 O2 Sat by Pulse 100 100 Oximetry 08/01/20 08/01/20 08/01/20 07:01 07:30 08:00 Temperature 97.8 F Pulse Rate 81 80 79 Pulse Rate [ 81 From Monitor] Respiratory 19 18 17 Rate Blood Pressure 162/82 142/75 142/73 O2 Sat by Pulse 100 100 100 Oximetry 08/01/20 08/01/20 08/01/20 08:30 09:00 09:41 Temperature Pulse Rate 84 85 85 Pulse Rate [ From Monitor] Respiratory 18 18 Rate Blood Pressure 140/72 144/74 141/74 O2 Sat by Pulse 100 100 100 Oximetry 08/01/20 09:48 Temperature Pulse Rate 88 Pulse Rate [ From Monitor] Respiratory 18 Rate Blood Pressure 147/82 O2 Sat by Pulse 100 Oximetry - General Appearance General appearance: chronically ill, intubated EENT: ATNC Neck: no JVD Respiratory: Present: Decreased Breath Sounds Cardiology: regular Gastrointestinal: normal Integumentary: ulcer Musculoskeletal: other (Anasarca, 3+ pitting edema) - Lab 08/01/20 05:22 08/01/20 05:22 Most recent lab results ABG pH 7.520 pH Units (7.350-7.450) H 07/27/20 05:20 ABG pCO2 33.5 mm Hg 07/27/20 05:20 ABG pO2 64.2 mm Hg (80.0-90.0) L 07/27/20 05:20 ABG HCO3 26.8 mmol/L (20.0-26.0) H 07/27/20 05:20 ABG O2 Saturation 95.8 % (95.0-99.0) 07/27/20 05:20 Calcium 7.8 mg/dL (8.4-10.2) L 08/01/20 05:22 Phosphorus 5.10 mg/dL (2.5-4.5) H 08/01/20 05:22 Magnesium 2.00 mg/dL (1.7-2.3) 08/01/20 05:22 - Allied health notes Allied health notes reviewed: nursing Medications & Allergies - Medications Allergies/Adverse Reactions: Allergies No Known Allergies Allergy (Verified 06/19/19 17:53) Home Medications: Home Medications Medication Instructions Recorded Confirmed Last Taken Type FLUoxetine [PROzac] 20 mg PO QDAY #14 capsule 06/23/19 06/21/20 Unknown Rx traZODone [Desyrel] 50 mg PO QHS #10 tablet 06/23/19 06/21/20 Unknown Rx Folic Acid 1 mg PO DAILY #30 tablet 06/25/19 06/21/20 Unknown Rx Nicotine [Habitrol] 14 mg TD DAILY #30 patch 06/25/19 06/21/20 Unknown Rx Thiamine [Vitamin B-1] 100 mg PO QDAY #30 tablet 06/25/19 06/21/20 Unknown Rx Aspirin EC [Halfprin EC] 81 mg PO QDAY #30 tablet. 07/26/19 06/21/20 Unknown Rx levETIRAcetam [Keppra TAB] 750 mg PO BID #60 tablet 07/26/19 06/21/20 Unknown Rx Furosemide [Lasix TAB] 40 mg PO QDAY #30 tablet 04/28/20 06/21/20 Unknown Rx Famotidine [Pepcid] 20 mg PO BID #60 tablet 07/05/20 Unknown Rx Insulin NPH, Human [NovoLIN N] 5 unit SUB-Q BIDDIAB 30 Days #10 ml 07/05/20 06/21/20 Unknown Rx amLODIPine 10 mg PO QDAY #30 tablet 07/05/20 Unknown Rx carvediloL [Coreg] 12.5 mg PO BID #60 tablet 07/05/20 Unknown Rx hydrALAZINE [Apresoline TAB] 50 mg PO Q8HR #30 tablet 07/06/20 Unknown Rx Active Medications: Generic Name Dose Route Start Last Admin Trade Name Freq PRN Reason Stop Dose Admin Lipase/Protease/Amylase 1 each 07/23/20 14:17 Lipase 10,500/Protease 25,000/Amylase 43,750 (Units) Dr Cap FEEDTUBE PRN PRN For Clogged Feeding Tube Aspirin 81 mg 08/01/20 10:00 Aspirin 81 Mg Tab Chew PO QDAY JODIE Atropine Sulfate 1 mg 07/23/20 09:03 07/23/20 22:15 Atropine 0.1% (1 Mg/10 Ml) Cardiac Syringe IV 1 mg PRN PRN Administration Bradycardia Dextrose 50 ml 07/23/20 03:28 07/23/20 06:00 Dextrose 50% In Water (25gm) 50 Ml Syringe IV 50 ml Q30MIN PRN Administration Hypoglycemia Protocol Famotidine 20 mg 07/18/20 22:00 07/31/20 09:28 Famotidine 20 Mg Tab PO 20 mg DAILY JODIE Administration Fluoxetine HCl 20 mg 07/19/20 10:00 07/31/20 09:28 Fluoxetine 20 Mg Cap PO 20 mg QDAY JODIE Administration Folic Acid 1 mg 07/19/20 10:00 07/31/20 09:28 Folic Acid 1 Mg Tab PO 1 mg DAILY JODIE Administration Hydralazine HCl 50 mg 07/18/20 14:00 08/01/20 05:59 Hydralazine 25 Mg Tab PO Not Given Q8HR [facility] Hydralazine HCl 20 mg 07/22/20 14:02 Hydralazine 20 Mg/1 Ml Inj IV Q4HR PRN Blood Pressure Hydrophilic Ointment 1 applic 07/22/20 10:02 Lip Therapy Vaseline TP Q2HR PRN Dry Lips Norepinephrine 4 mg in 250 mls @ 7.5 mls/hr 07/24/20 10:00 07/24/20 15:35 Levophed Drip 4 Mg/Ns 250 Ml IV 0 mcg/min TITR JODIE 0 mls/hr Titration Protocol 2 MCG/MIN Sodium Chloride 100 mls @ 999 mls/hr 07/31/20 08:21 Nacl 0.9% IV FRANCISCO PRN Hypotension Insulin Glargine 10 units 07/30/20 22:00 07/31/20 21:05 Insulin Glargine 100 Units/Ml SUB-Q 10 units QHS JODIE Administration Insulin Human Lispro 0 unit 07/26/20 10:00 08/01/20 06:27 Insulin Lispro 100 Unit/Ml SUB-Q 2 unit Q6HR JODIE Administration Protocol Levetiracetam 750 mg 07/18/20 22:00 07/31/20 21:04 Levetiracetam 500 Mg/5 Ml Oral Liqd PO 750 mg BID JODIE Administration Multi-Ingred Cream/Lotion/Oil/Oint 1 applic 07/22/20 10:02 Mineral Oil/Petrolatum, White Ophth Oint 3.5 Gm OU Q4HR PRN Dry Eye(s) Scopolamine 1 each 07/31/20 10:00 07/31/20 11:00 Scopolamine Transdermal Patch 72 Hr TD 1 each Q3D JODIE Administration Simple Syrup 15 ml 07/23/20 14:17 Simple Syrup 15 Ml FEEDTUBE PRN PRN Hypoglycemia Simple Syrup 30 ml 07/23/20 14:17 Simple Syrup 15 Ml FEEDTUBE PRN PRN Hypoglycemia Sodium Bicarbonate 325 mg 07/23/20 14:17 Sodium Bicarbonate 325 Mg Tab FEEDTUBE PRN PRN For Clogged Feeding Tube Thiamine HCl 100 mg 07/19/20 10:00 07/31/20 09:28 Thiamine 100 Mg Tab PO 100 mg QDAY JODIE Administration Trazodone HCl 50 mg 07/18/20 22:00 07/31/20 21:05 Trazodone 50 Mg Tab PO 50 mg QHS JODIE Administration
[2020-08-01] MEDS ORDERED: NALOXONE 0.4 MG/1 ML INJ IV ONE (11:00)
[2020-08-01] MEDS: ASPIRIN 81 MG TAB CHEW PO SCH (11:27)
--- NOTE | 2020-08-01 12:01 | Progress Note ---
Assessment and Plan Cont present cardiac management. Consider addition of BB in setting of CMP if HR and BPs permit. No ACEI/ARB at this time in setting of renal insufficiency requiring HD. Can consider ischemic evaluation for further investigation of CMP etiology once medically stabilized. Cont volume and electrolyte management per nephrology/HD. Persistent anemia and thrombocytopenia noted - further eval/management per primary and critical care teams. Will follow on as needed basis. The patient has been seen in conjunction with Dr. Thomason who agrees with the assessment and plan of care. - Patient Problems (1) Acute on chronic renal failure Current Visit: Yes Status: Acute Qualifiers: Acute renal failure type: unspecified Chronic kidney disease stage: stage 3 (moderate) Chronic kidney disease stage 3 subtype: stage 3a (GFR 45-59) Qualified Code(s): N17.9 - Acute kidney failure, unspecified; N18.31 - Chronic kidney disease, stage 3a (2) Anasarca Current Visit: Yes Status: Acute (3) Acute respiratory failure Current Visit: Yes Status: Acute Qualifiers: Respiratory failure complication: hypoxia Qualified Code(s): J96.01 - Acute respiratory failure with hypoxia (4) Altered mental status Current Visit: Yes Status: Acute (5) Hyperkalemia Current Visit: Yes Status: Acute (6) Sepsis Current Visit: Yes Status: Suspected Qualifiers: Sepsis type: sepsis due to unspecified organism Sepsis acute organ dysfunction status: with acute organ dysfunction Severe sepsis acute organ dysfunction type: acute renal failure Acute renal failure type: unspecified Severe sepsis shock status: without septic shock Qualified Code(s): A41.9 - Sepsis, unspecified organism; R65.20 - Severe sepsis without septic shock; N17.9 - Acute kidney failure, unspecified (7) Sinus bradycardia Current Visit: Yes Status: Acute (8) Hypotension Current Visit: Yes Status: Acute (9) Acute HFrEF (heart failure with reduced ejection fraction) Current Visit: Yes Status: Acute (10) Cardiomyopathy Current Visit: Yes Status: Chronic Qualifiers: Cardiomyopathy type: unspecified Qualified Code(s): I42.9 - Cardiomyopathy, unspecified (11) History of ETOH abuse Current Visit: Yes Status: Chronic (12) History of cocaine use Current Visit: Yes Status: Chronic (13) Cellulitis of right lower extremity Current Visit: Yes Status: Acute (14) Diabetes Current Visit: Yes Status: Chronic (15) History of CVA (cerebrovascular accident) Current Visit: Yes Status: Acute (16) Anemia Current Visit: Yes Status: Chronic Qualifiers: Anemia type: unspecified type Qualified Code(s): D64.9 - Anemia, unspecified (17) Thrombocytopenia Current Visit: Yes Status: Acute (18) Hepatitis C Current Visit: Yes Status: Chronic (19) Elevated troponin Current Visit: Yes Status: Acute Subjective Date of service: 08/01/20 Principal diagnosis: RACQUEL Interval history: pt remains intubated, unresponsive. currently weaned off vasopressors. tele reviewed - in SR with HR 80s, no events noted overnight. Objective Last Vital Signs Temp 97.9 F 08/01/20 08:00 Pulse 88 08/01/20 09:48 Resp 18 08/01/20 09:48 BP 147/82 08/01/20 09:48 Pulse Ox 100 08/01/20 09:48 - Physical Examination General: Other (Intubated, unresponsive) HEENT: Positive: Other (Intubated, Sedated) Neck: Positive: neck supple Cardiac: Positive: Reg Rate and Rhythm, S1/S2 Lungs: Positive: Decreased Breath Sounds, Oxygen, Ventilated Respirations Neuro: Positive: Other (Intubated, unresponsive) Abdomen: Positive: Unremarkable Skin: Negative: Rash Extremities: Present: upper extr. pulses, lower extr. pulses. Absent: edema - Labs and Meds CBC 08/01/20 Range/Units 05:22 WBC 8.9 (4.5-11.0) K/mm3 RBC 2.26 L (3.65-5.03) M/mm3 Hgb 7.0 L (11.8-15.2) gm/dl Hct 21.0 L (35.5-45.6) % Plt Count 85 L (140-440) K/mm3 Comprehensive Metabolic Panel 08/01/20 Range/Units 05:22 Sodium 133 L (137-145) mmol/L Potassium 4.0 (3.6-5.0) mmol/L Chloride 98.4 (98-107) mmol/L Carbon Dioxide 26 (22-30) mmol/L BUN 57 H (9-20) mg/dL Creatinine 4.4 H (0.8-1.3) mg/dL Glucose 166 H (75-100) mg/dL Calcium 7.8 L (8.4-10.2) mg/dL - Imaging and Cardiology EKG: report reviewed, image reviewed Echo: report reviewed ((06/22/20) EF 35-40%. Mild LVH. LVSF med decreased. RVSF mildly reduced. Mild Pulm HTN. Left Atrium Mildly DIlated. Right Atrium Moderately dilated. Mild MR. Moderate TR. ) - Telemetry EKG Rhythm: Sinus Rhythm - EKG Sinus rhythms and dysrhythmias: sinus rhythm - Allied health notes Allied health notes reviewed: nursing
--- NOTE | 2020-08-01 12:20 | Progress Note ---
Assessment and Plan 8 y/o male with acute respiratory failure secondary to worsening renal failure, volume overload and altered mental state 08/01/20: Will repeat EEG at request of neurology. No MRI requested. CT and EEG report not equivalent. Trial of narcan given but no improvement. Does have urine in the bladder but no jones and prior history of obstruction requiring urology to place jones. May need to consider asking them to re-evaluate. Prognosis remains guarded to poor. 07/31/20: Will obtain, EEG and neuro consult. They will likely ask for MRI so will speak with family about obtaining screening form info. Continue PSV trials. HD per renal. Guarded to poor prognosis. 07/30/20: Mental state continues to prevent conventional extubation. HD per renal. Need to repeat Head CT to check for other damage. 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 Very very guarded prognosis. If repeat head CT is negative, will need neuro eval and EEG 07/27/20: Mental state continues to prevent conventional extubation. Currently stable on minimal vent settings. HD per renal, does not appear he was dialyzed yesterday so may get it today. If not more awake by tomorrow, suggest repeat head CT. Continue all other supportive measures. 07/26/20: Drop PEEP down to 6. Once more awake PSV trials. HD per renal. Appears to be helping, maybe they will dialyze again today. Prognosis still remains guarded. 1. Needs HD 2. Wean FiO2 and PEEP as tolerated 3. Guarded prognosis CCT 31 minutes. Subjective Date of service: 08/01/20 Principal diagnosis: RACQUEL Interval history: EEG states that patient is asleep. Does not fit clinical picture. HD today. Neuro note reviewed however it appears that the EEG was not ready prior to them completing their note. Remainder is negative. Objective Vital Signs - 12hr 08/01/20 08/01/20 08/01/20 00:30 00:45 01:00 Temperature Pulse Rate 80 76 78 Pulse Rate [ From Monitor] Respiratory 18 18 Rate Blood Pressure 130/71 123/68 124/66 O2 Sat by Pulse 100 100 100 Oximetry 08/01/20 08/01/20 08/01/20 01:30 02:00 02:30 Temperature Pulse Rate 85 83 81 Pulse Rate [ From Monitor] Respiratory 18 19 19 Rate Blood Pressure 120/66 127/69 128/68 O2 Sat by Pulse 100 99 97 Oximetry 08/01/20 08/01/20 08/01/20 03:00 03:30 03:40 Temperature 98.5 F Pulse Rate 83 82 Pulse Rate [ From Monitor] Respiratory 19 18 Rate Blood Pressure 125/65 126/71 O2 Sat by Pulse 95 97 Oximetry 08/01/20 08/01/20 08/01/20 04:00 04:30 05:00 Temperature Pulse Rate 82 82 80 Pulse Rate [ 82 From Monitor] Respiratory 18 19 18 Rate Blood Pressure 136/71 135/71 134/71 O2 Sat by Pulse 98 100 100 Oximetry 08/01/20 08/01/20 08/01/20 05:03 05:30 05:59 Temperature Pulse Rate 82 81 82 Pulse Rate [ From Monitor] Respiratory Rate Blood Pressure 129/71 122/72 136/71 O2 Sat by Pulse 100 100 Oximetry 08/01/20 08/01/20 08/01/20 06:00 06:30 07:01 Temperature Pulse Rate 80 80 81 Pulse Rate [ From Monitor] Respiratory 18 17 19 Rate Blood Pressure 139/76 140/77 162/82 O2 Sat by Pulse 100 100 100 Oximetry 08/01/20 08/01/20 08/01/20 07:30 08:00 08:30 Temperature 97.9 F Pulse Rate 80 79 84 Pulse Rate [ 81 From Monitor] Respiratory 18 17 18 Rate Blood Pressure 142/75 142/73 140/72 O2 Sat by Pulse 100 100 100 Oximetry 08/01/20 08/01/20 08/01/20 09:00 09:41 09:48 Temperature Pulse Rate 85 85 88 Pulse Rate [ From Monitor] Respiratory 18 18 Rate Blood Pressure 144/74 141/74 147/82 O2 Sat by Pulse 100 100 100 Oximetry Constitutional: appears uncomfortable (cpap, orally intubated), other (on vent orally intubated) Eyes: non-icteric ENT: epistaxis Neck: other (large in circumference) Effort: mildly labored Ascultation: Bilateral: diminished breath sounds Neurologic: non-focal exam, unable to assess CBC and BMP: 08/01/20 05:22 08/01/20 05:22 ABG, PT/INR, D-dimer: ABG ABG pH 7.520 pH Units (7.350-7.450) H 07/27/20 05:20 POC ABG pCO2 32.7 mmHg (32.0-48.0) 07/25/20 03:57 ABG pCO2 33.5 mm Hg 07/27/20 05:20 POC ABG pO2 62.7 mmHg (83-108) L 07/25/20 03:57 ABG pO2 64.2 mm Hg (80.0-90.0) L 07/27/20 05:20 POC ABG HCO3 24.8 07/25/20 03:57 ABG O2 Saturation 95.8 % (95.0-99.0) 07/27/20 05:20 PT/INR, D-dimer PT 15.9 Sec. (12.2-14.9) H 07/22/20 10:30 INR 1.27 (0.87-1.13) H 07/22/20 10:30 D-Dimer 1036.46 ng/mlDDU (0-234) H 07/18/20 08:56 Abnormal lab findings: Abnormal Labs 07/18/20 07/18/20 07/18/20 08:56 08:56 08:56 WBC 3.5 L RBC 2.51 L Hgb 8.0 L Hct 24.5 L MCV 98 H RDW 18.3 H Plt Count 58 L Lymph % (Auto) [place] % (Auto) 11.1 H Lymph # (Auto) [place] # (Auto) Seg Neutrophils % Seg Neuts % (Manual) Lymphocytes % (Manual) Nucleated RBC % Seg Neutrophils # Man Lymphocytes # (Manual) PT INR 1.18 H APTT D-Dimer ABG pH POC ABG pCO2 POC ABG pO2 ABG pO2 ABG HCO3 ABG Base Excess ABG Hemoglobin ABG Oxyhemoglobin ABG Potassium ABG Chloride ABG Glucose Oxyhemoglobin Carboxyhemoglobin Sodium 146 H Potassium 5.2 H Chloride 117.3 H Carbon Dioxide 21 L BUN 52 H Creatinine 3.1 H Glucose 118 H POC Glucose Calcium 8.1 L Phosphorus AST ALT Alkaline Phosphatase Lactate Dehydrogenase CK-MB (CK-2) CK-MB (CK-2) Rel Index Troponin T 0.057 H C-Reactive Protein NT-Pro-B Natriuret Pep Albumin HDL Cholesterol 67 H TSH Arterial Blood Glucose Arterial Blood Ionized Calcium Hepatitis C Antibody Crossmatch 07/18/20 07/18/20 07/18/20 08:56 08:56 08:56 WBC RBC Hgb Hct MCV RDW Plt Count Lymph % (Auto) [place] % (Auto) Lymph # (Auto) [place] # (Auto) Seg Neutrophils % Seg Neuts % (Manual) Lymphocytes % (Manual) Nucleated RBC % Seg Neutrophils # Man Lymphocytes # (Manual) PT INR APTT D-Dimer 1036.46 H ABG pH POC ABG pCO2 POC ABG pO2 ABG pO2 ABG HCO3 ABG Base Excess ABG Hemoglobin ABG Oxyhemoglobin ABG Potassium ABG Chloride ABG Glucose Oxyhemoglobin Carboxyhemoglobin Sodium Potassium Chloride Carbon Dioxide BUN Creatinine Glucose POC Glucose Calcium Phosphorus AST ALT Alkaline Phosphatase Lactate Dehydrogenase CK-MB (CK-2) CK-MB (CK-2) Rel Index Troponin T C-Reactive Protein NT-Pro-B Natriuret Pep 4777 H Albumin HDL Cholesterol TSH 5.520 H Arterial Blood Glucose Arterial Blood Ionized Calcium Hepatitis C Antibody Crossmatch 07/18/20 07/18/20 07/18/20 10:36 18:56 19:00 WBC RBC Hgb Hct MCV RDW Plt Count Lymph % (Auto) [place] % (Auto) Lymph # (Auto) [place] # (Auto) Seg Neutrophils % Seg Neuts % (Manual) Lymphocytes % (Manual) Nucleated RBC % Seg Neutrophils # Man Lymphocytes # (Manual) PT INR APTT D-Dimer ABG pH POC ABG pCO2 POC ABG pO2 ABG pO2 ABG HCO3 ABG Base Excess ABG Hemoglobin ABG Oxyhemoglobin ABG Potassium ABG Chloride ABG Glucose Oxyhemoglobin Carboxyhemoglobin Sodium Potassium Chloride Carbon Dioxide BUN Creatinine Glucose 101 H POC Glucose 66 L 63 L Calcium Phosphorus AST ALT Alkaline Phosphatase Lactate Dehydrogenase 212 H CK-MB (CK-2) CK-MB (CK-2) Rel Index Troponin T C-Reactive Protein 2.10 H NT-Pro-B Natriuret Pep Albumin HDL Cholesterol TSH Arterial Blood Glucose Arterial Blood Ionized Calcium Hepatitis C Antibody Crossmatch 07/19/20 07/19/20 07/19/20 06:00 06:00 16:26 WBC 3.9 L RBC 2.34 L Hgb 7.5 L Hct 23.1 L MCV 99 H RDW 18.6 H Plt Count 52 L Lymph % (Auto) [place] % (Auto) 9.4 H Lymph # (Auto) 1.0 L [place] # (Auto) Seg Neutrophils % Seg Neuts % (Manual) Lymphocytes % (Manual) Nucleated RBC % Seg Neutrophils # Man Lymphocytes # (Manual) PT INR APTT D-Dimer ABG pH POC ABG pCO2 POC ABG pO2 ABG pO2 ABG HCO3 ABG Base Excess ABG Hemoglobin ABG Oxyhemoglobin ABG Potassium ABG Chloride ABG Glucose Oxyhemoglobin Carboxyhemoglobin Sodium Potassium 5.3 H Chloride 115.8 H Carbon Dioxide BUN 52 H Creatinine 3.4 H Glucose 114 H POC Glucose 123 H Calcium 7.7 L Phosphorus AST 77 H ALT < 5 L Alkaline Phosphatase 678 H Lactate Dehydrogenase CK-MB (CK-2) CK-MB (CK-2) Rel Index Troponin T C-Reactive Protein NT-Pro-B Natriuret Pep Albumin 2.2 L HDL Cholesterol TSH Arterial Blood Glucose Arterial Blood Ionized Calcium Hepatitis C Antibody Crossmatch 07/19/20 07/20/20 07/20/20 21:20 08:25 08:25 WBC 3.6 L RBC 2.54 L Hgb 8.0 L Hct 24.6 L MCV 97 H RDW 18.0 H Plt Count 47 L Lymph % (Auto) [place] % (Auto) 9.8 H Lymph # (Auto) 0.9 L [place] # (Auto) Seg Neutrophils % Seg Neuts % (Manual) Lymphocytes % (Manual) Nucleated RBC % Seg Neutrophils # Man Lymphocytes # (Manual) PT INR APTT D-Dimer ABG pH POC ABG pCO2 POC ABG pO2 ABG pO2 ABG HCO3 ABG Base Excess ABG Hemoglobin ABG Oxyhemoglobin ABG Potassium ABG Chloride ABG Glucose Oxyhemoglobin Carboxyhemoglobin Sodium Potassium 5.4 H Chloride 115.8 H Carbon Dioxide BUN 56 H Creatinine 3.8 H Glucose 110 H POC Glucose 142 H Calcium 7.9 L Phosphorus AST ALT Alkaline Phosphatase Lactate Dehydrogenase CK-MB (CK-2) CK-MB (CK-2) Rel Index Troponin T C-Reactive Protein NT-Pro-B Natriuret Pep Albumin HDL Cholesterol TSH Arterial Blood Glucose Arterial Blood Ionized Calcium Hepatitis C Antibody Crossmatch 07/20/20 07/20/20 07/20/20 11:27 16:34 21:27 WBC RBC Hgb Hct MCV RDW Plt Count Lymph % (Auto) [place] % (Auto) Lymph # (Auto) [place] # (Auto) Seg Neutrophils % Seg Neuts % (Manual) Lymphocytes % (Manual) Nucleated RBC % Seg Neutrophils # Man Lymphocytes # (Manual) PT INR APTT D-Dimer ABG pH POC ABG pCO2 POC ABG pO2 ABG pO2 ABG HCO3 ABG Base Excess ABG Hemoglobin ABG Oxyhemoglobin ABG Potassium ABG Chloride ABG Glucose Oxyhemoglobin Carboxyhemoglobin Sodium Potassium Chloride Carbon Dioxide BUN Creatinine Glucose POC Glucose 136 H 186 H 175 H Calcium Phosphorus AST ALT Alkaline Phosphatase Lactate Dehydrogenase CK-MB (CK-2) CK-MB (CK-2) Rel Index Troponin T C-Reactive Protein NT-Pro-B Natriuret Pep Albumin HDL Cholesterol TSH Arterial Blood Glucose Arterial Blood Ionized Calcium Hepatitis C Antibody Crossmatch 07/21/20 07/22/20 07/22/20 10:31 07:25 10:30 WBC 3.8 L RBC 2.53 L Hgb 7.9 L Hct 24.7 L MCV 98 H RDW 18.7 H Plt Count 35 L Lymph % (Auto) [place] % (Auto) Lymph # (Auto) [place] # (Auto) Seg Neutrophils % Seg Neuts % (Manual) 92.0 H Lymphocytes % (Manual) 6.0 L Nucleated RBC % 13.0 H Seg Neutrophils # Man Lymphocytes # (Manual) 0.2 L PT INR APTT D-Dimer ABG pH POC ABG pCO2 POC ABG pO2 ABG pO2 ABG HCO3 ABG Base Excess ABG Hemoglobin ABG Oxyhemoglobin ABG Potassium ABG Chloride ABG Glucose Oxyhemoglobin Carboxyhemoglobin Sodium Potassium 5.3 H 5.6 H Chloride 115.0 H 115.1 H Carbon Dioxide 18 L BUN 59 H 61 H Creatinine 4.3 H 4.6 H Glucose 109 H POC Glucose Calcium 7.6 L 7.6 L Phosphorus AST ALT Alkaline Phosphatase Lactate Dehydrogenase CK-MB (CK-2) CK-MB (CK-2) Rel Index Troponin T C-Reactive Protein NT-Pro-B Natriuret Pep Albumin HDL Cholesterol TSH Arterial Blood Glucose Arterial Blood Ionized Calcium Hepatitis C Antibody Crossmatch 07/22/20 07/22/20 07/22/20 10:30 10:30 10:30 WBC RBC Hgb Hct MCV RDW Plt Count Lymph % (Auto) [place] % (Auto) Lymph # (Auto) [place] # (Auto) Seg Neutrophils % Seg Neuts % (Manual) Lymphocytes % (Manual) Nucleated RBC % Seg Neutrophils # Man Lymphocytes # (Manual) PT 15.9 H INR 1.27 H APTT 38.3 H D-Dimer ABG pH POC ABG pCO2 POC ABG pO2 ABG pO2 ABG HCO3 ABG Base Excess ABG Hemoglobin ABG Oxyhemoglobin ABG Potassium ABG Chloride ABG Glucose Oxyhemoglobin Carboxyhemoglobin Sodium 146 H Potassium 5.4 H Chloride 116.4 H Carbon Dioxide BUN 61 H Creatinine 4.6 H Glucose 115 H POC Glucose Calcium 7.5 L Phosphorus 5.80 H AST 66 H ALT < 5 L Alkaline Phosphatase 604 H Lactate Dehydrogenase CK-MB (CK-2) 10.9 H CK-MB (CK-2) Rel Index 16.2 H Troponin T 0.047 H C-Reactive Protein NT-Pro-B Natriuret Pep Albumin 2.1 L HDL Cholesterol TSH Arterial Blood Glucose Arterial Blood Ionized Calcium Hepatitis C Antibody Crossmatch 07/22/20 07/23/20 07/23/20 11:10 03:38 03:47 WBC RBC Hgb Hct MCV RDW Plt Count Lymph % (Auto) [place] % (Auto) Lymph # (Auto) [place] # (Auto) Seg Neutrophils % Seg Neuts % (Manual) Lymphocytes % (Manual) Nucleated RBC % Seg Neutrophils # Man Lymphocytes # (Manual) PT INR APTT D-Dimer ABG pH 7.203 L POC ABG pCO2 48.7 H 29.7 L POC ABG pO2 80.6 L 267.3 H ABG pO2 ABG HCO3 ABG Base Excess ABG Hemoglobin 8.6 L 8.2 L ABG Oxyhemoglobin 91.1 L 98.2 H ABG Potassium 5.4 H 5.4 H ABG Chloride 122.0 H 122.0 H ABG Glucose 105 H 101 H Oxyhemoglobin Carboxyhemoglobin 2.0 H Sodium Potassium Chloride Carbon Dioxide BUN Creatinine Glucose POC Glucose 65 L Calcium Phosphorus AST ALT Alkaline Phosphatase Lactate Dehydrogenase CK-MB (CK-2) CK-MB (CK-2) Rel Index Troponin T C-Reactive Protein NT-Pro-B Natriuret Pep Albumin HDL Cholesterol TSH Arterial Blood Glucose 105 H 101 H Arterial Blood Ionized Calcium 4.5 L 4.4 L Hepatitis C Antibody Crossmatch 07/23/20 07/23/20 07/23/20 06:05 06:05 06:27 WBC RBC 2.36 L Hgb 7.5 L Hct 22.7 L MCV 96 H RDW 18.9 H Plt Count 42 L Lymph % (Auto) [place] % (Auto) Lymph # (Auto) [place] # (Auto) Seg Neutrophils % Seg Neuts % (Manual) Lymphocytes % (Manual) Nucleated RBC % Seg Neutrophils # Man Lymphocytes # (Manual) PT INR APTT D-Dimer ABG pH POC ABG pCO2 POC ABG pO2 ABG pO2 ABG HCO3 ABG Base Excess ABG Hemoglobin ABG Oxyhemoglobin ABG Potassium ABG Chloride ABG Glucose Oxyhemoglobin Carboxyhemoglobin Sodium Potassium 5.6 H Chloride 114.1 H Carbon Dioxide 17 L BUN 62 H Creatinine 5.1 H Glucose 215 H POC Glucose 114 H Calcium 7.3 L Phosphorus AST ALT Alkaline Phosphatase Lactate Dehydrogenase CK-MB (CK-2) CK-MB (CK-2) Rel Index Troponin T C-Reactive Protein NT-Pro-B Natriuret Pep Albumin HDL Cholesterol TSH Arterial Blood Glucose Arterial Blood Ionized Calcium Hepatitis C Antibody Crossmatch 07/23/20 07/23/20 07/24/20 11:36 19:20 04:00 WBC RBC Hgb Hct MCV RDW Plt Count Lymph % (Auto) [place] % (Auto) Lymph # (Auto) [place] # (Auto) Seg Neutrophils % Seg Neuts % (Manual) Lymphocytes % (Manual) Nucleated RBC % Seg Neutrophils # Man Lymphocytes # (Manual) PT INR APTT D-Dimer ABG pH POC ABG pCO2 POC ABG pO2 ABG pO2 ABG HCO3 ABG Base Excess ABG Hemoglobin ABG Oxyhemoglobin ABG Potassium ABG Chloride ABG Glucose Oxyhemoglobin Carboxyhemoglobin Sodium Potassium Chloride 110.8 H Carbon Dioxide BUN 47 H Creatinine 4.4 H Glucose POC Glucose 66 L Calcium 7.3 L Phosphorus AST ALT Alkaline Phosphatase Lactate Dehydrogenase CK-MB (CK-2) CK-MB (CK-2) Rel Index Troponin T C-Reactive Protein NT-Pro-B Natriuret Pep Albumin HDL Cholesterol TSH Arterial Blood Glucose Arterial Blood Ionized Calcium Hepatitis C Antibody Reactive A Crossmatch 07/24/20 07/24/20 07/24/20 04:25 11:37 Unknown WBC RBC 2.36 L Hgb 7.5 L Hct 22.5 L MCV 95 H RDW 18.4 H Plt Count 38 L Lymph % (Auto) [place] % (Auto) Lymph # (Auto) [place] # (Auto) Seg Neutrophils % Seg Neuts % (Manual) Lymphocytes % (Manual) Nucleated RBC % Seg Neutrophils # Man Lymphocytes # (Manual) PT INR APTT D-Dimer ABG pH POC ABG pCO2 POC ABG pO2 64.8 L ABG pO2 ABG HCO3 ABG Base Excess ABG Hemoglobin 7.9 L ABG Oxyhemoglobin ABG Potassium ABG Chloride 114.0 H ABG Glucose Oxyhemoglobin Carboxyhemoglobin Sodium Potassium Chloride Carbon Dioxide BUN Creatinine Glucose POC Glucose 109 H Calcium Phosphorus AST ALT Alkaline Phosphatase Lactate Dehydrogenase CK-MB (CK-2) CK-MB (CK-2) Rel Index Troponin T C-Reactive Protein NT-Pro-B Natriuret Pep Albumin HDL Cholesterol TSH Arterial Blood Glucose Arterial Blood Ionized Calcium 4.2 L Hepatitis C Antibody Crossmatch 07/25/20 07/25/20 07/25/20 00:12 03:57 04:00 WBC RBC Hgb Hct MCV RDW Plt Count Lymph % (Auto) [place] % (Auto) Lymph # (Auto) [place] # (Auto) Seg Neutrophils % Seg Neuts % (Manual) Lymphocytes % (Manual) Nucleated RBC % Seg Neutrophils # Man Lymphocytes # (Manual) PT INR APTT D-Dimer ABG pH 7.497 H POC ABG pCO2 POC ABG pO2 62.7 L ABG pO2 ABG HCO3 ABG Base Excess ABG Hemoglobin 8.5 L ABG Oxyhemoglobin 90.1 L ABG Potassium ABG Chloride 110.0 H ABG Glucose 157 H Oxyhemoglobin Carboxyhemoglobin Sodium Potassium Chloride Carbon Dioxide BUN 38 H Creatinine 4.1 H Glucose 160 H POC Glucose 140 H Calcium 7.9 L Phosphorus AST ALT Alkaline Phosphatase Lactate Dehydrogenase CK-MB (CK-2) CK-MB (CK-2) Rel Index Troponin T C-Reactive Protein NT-Pro-B Natriuret Pep Albumin HDL Cholesterol TSH Arterial Blood Glucose 157 H Arterial Blood Ionized Calcium 4.3 L Hepatitis C Antibody Crossmatch 07/25/20 07/25/20 07/25/20 04:00 06:24 12:11 WBC RBC 2.48 L Hgb 7.7 L Hct 23.2 L MCV RDW 18.4 H Plt Count 44 L Lymph % (Auto) [place] % (Auto) 8.5 H Lymph # (Auto) [place] # (Auto) Seg Neutrophils % 76.7 H Seg Neuts % (Manual) Lymphocytes % (Manual) Nucleated RBC % Seg Neutrophils # Man Lymphocytes # (Manual) PT INR APTT D-Dimer ABG pH POC ABG pCO2 POC ABG pO2 ABG pO2 ABG HCO3 ABG Base Excess ABG Hemoglobin ABG Oxyhemoglobin ABG Potassium ABG Chloride ABG Glucose Oxyhemoglobin Carboxyhemoglobin Sodium Potassium Chloride Carbon Dioxide BUN Creatinine Glucose POC Glucose 155 H 205 H Calcium Phosphorus AST ALT Alkaline Phosphatase Lactate Dehydrogenase CK-MB (CK-2) CK-MB (CK-2) Rel Index Troponin T C-Reactive Protein NT-Pro-B Natriuret Pep Albumin HDL Cholesterol TSH Arterial Blood Glucose Arterial Blood Ionized Calcium Hepatitis C Antibody Crossmatch 07/25/20 07/26/20 07/26/20 17:41 00:18 03:54 WBC RBC Hgb Hct MCV RDW Plt Count Lymph % (Auto) [place] % (Auto) Lymph # (Auto) [place] # (Auto) Seg Neutrophils % Seg Neuts % (Manual) Lymphocytes % (Manual) Nucleated RBC % Seg Neutrophils # Man Lymphocytes # (Manual) PT INR APTT D-Dimer ABG pH 7.512 H POC ABG pCO2 POC ABG pO2 ABG pO2 121.2 H ABG HCO3 27.1 H ABG Base Excess 3.6 H ABG Hemoglobin < 5.1 L ABG Oxyhemoglobin ABG Potassium ABG Chloride ABG Glucose Oxyhemoglobin Carboxyhemoglobin Sodium Potassium Chloride Carbon Dioxide BUN Creatinine Glucose POC Glucose 227 H 198 H Calcium Phosphorus AST ALT Alkaline Phosphatase Lactate Dehydrogenase CK-MB (CK-2) CK-MB (CK-2) Rel Index Troponin T C-Reactive Protein NT-Pro-B Natriuret Pep Albumin HDL Cholesterol TSH Arterial Blood Glucose Arterial Blood Ionized Calcium Hepatitis C Antibody Crossmatch 07/26/20 07/26/20 07/26/20 06:31 07:00 12:09 WBC RBC 2.33 L Hgb 7.4 L Hct 21.6 L MCV RDW 18.0 H Plt Count 50 L Lymph % (Auto) 13.0 L [place] % (Auto) Lymph # (Auto) [place] # (Auto) Seg Neutrophils % 79.8 H Seg Neuts % (Manual) Lymphocytes % (Manual) Nucleated RBC % Seg Neutrophils # Man Lymphocytes # (Manual) PT INR APTT D-Dimer ABG pH POC ABG pCO2 POC ABG pO2 ABG pO2 ABG HCO3 ABG Base Excess ABG Hemoglobin ABG Oxyhemoglobin ABG Potassium ABG Chloride ABG Glucose Oxyhemoglobin Carboxyhemoglobin Sodium Potassium Chloride Carbon Dioxide BUN Creatinine Glucose POC Glucose 223 H 250 H Calcium Phosphorus AST ALT Alkaline Phosphatase Lactate Dehydrogenase CK-MB (CK-2) CK-MB (CK-2) Rel Index Troponin T C-Reactive Protein NT-Pro-B Natriuret Pep Albumin HDL Cholesterol TSH Arterial Blood Glucose Arterial Blood Ionized Calcium Hepatitis C Antibody Crossmatch 07/26/20 07/26/20 07/27/20 17:40 23:26 05:20 WBC RBC Hgb Hct MCV RDW Plt Count Lymph % (Auto) [place] % (Auto) Lymph # (Auto) [place] # (Auto) Seg Neutrophils % Seg Neuts % (Manual) Lymphocytes % (Manual) Nucleated RBC % Seg Neutrophils # Man Lymphocytes # (Manual) PT INR APTT D-Dimer ABG pH 7.520 H POC ABG pCO2 POC ABG pO2 ABG pO2 64.2 L ABG HCO3 26.8 H ABG Base Excess 3.7 H ABG Hemoglobin 7.2 L ABG Oxyhemoglobin ABG Potassium ABG Chloride ABG Glucose Oxyhemoglobin 93.2 L Carboxyhemoglobin Sodium Potassium Chloride Carbon Dioxide BUN Creatinine Glucose POC Glucose 226 H 176 H Calcium Phosphorus AST ALT Alkaline Phosphatase Lactate Dehydrogenase CK-MB (CK-2) CK-MB (CK-2) Rel Index Troponin T C-Reactive Protein NT-Pro-B Natriuret Pep Albumin HDL Cholesterol TSH Arterial Blood Glucose Arterial Blood Ionized Calcium Hepatitis C Antibody Crossmatch 07/27/20 07/27/20 07/27/20 05:42 06:36 06:36 WBC RBC 2.23 L Hgb 7.0 L Hct 20.7 L MCV RDW 18.4 H Plt Count 56 L Lymph % (Auto) [place] % (Auto) Lymph # (Auto) [place] # (Auto) Seg Neutrophils % Seg Neuts % (Manual) 88.0 H Lymphocytes % (Manual) 11.0 L Nucleated RBC % 2.0 H Seg Neutrophils # Man 8.9 H Lymphocytes # (Manual) 1.1 L PT INR APTT D-Dimer ABG pH POC ABG pCO2 POC ABG pO2 ABG pO2 ABG HCO3 ABG Base Excess ABG Hemoglobin ABG Oxyhemoglobin ABG Potassium ABG Chloride ABG Glucose Oxyhemoglobin Carboxyhemoglobin Sodium Potassium Chloride Carbon Dioxide BUN 43 H Creatinine 4.4 H Glucose 162 H POC Glucose 142 H Calcium 8.2 L Phosphorus AST ALT Alkaline Phosphatase Lactate Dehydrogenase CK-MB (CK-2) CK-MB (CK-2) Rel Index Troponin T C-Reactive Protein NT-Pro-B Natriuret Pep Albumin HDL Cholesterol TSH Arterial Blood Glucose Arterial Blood Ionized Calcium Hepatitis C Antibody Crossmatch 07/27/20 07/27/20 07/27/20 11:42 17:37 23:15 WBC RBC Hgb Hct MCV RDW Plt Count Lymph % (Auto) [place] % (Auto) Lymph # (Auto) [place] # (Auto) Seg Neutrophils % Seg Neuts % (Manual) Lymphocytes % (Manual) Nucleated RBC % Seg Neutrophils # Man Lymphocytes # (Manual) PT INR APTT D-Dimer ABG pH POC ABG pCO2 POC ABG pO2 ABG pO2 ABG HCO3 ABG Base Excess ABG Hemoglobin ABG Oxyhemoglobin ABG Potassium ABG Chloride ABG Glucose Oxyhemoglobin Carboxyhemoglobin Sodium Potassium Chloride Carbon Dioxide BUN Creatinine Glucose POC Glucose 134 H 169 H 173 H Calcium Phosphorus AST ALT Alkaline Phosphatase Lactate Dehydrogenase CK-MB (CK-2) CK-MB (CK-2) Rel Index Troponin T C-Reactive Protein NT-Pro-B Natriuret Pep Albumin HDL Cholesterol TSH Arterial Blood Glucose Arterial Blood Ionized Calcium Hepatitis C Antibody Crossmatch 07/28/20 07/28/20 07/28/20 04:00 05:14 10:15 WBC RBC 2.13 L Hgb 6.8 L Hct 19.9 L* MCV RDW 18.4 H Plt Count 55 L Lymph % (Auto) [place] % (Auto) 9.1 H Lymph # (Auto) [place] # (Auto) 0.9 H Seg Neutrophils % 74.5 H Seg Neuts % (Manual) Lymphocytes % (Manual) Nucleated RBC % Seg Neutrophils # Man Lymphocytes # (Manual) PT INR APTT D-Dimer ABG pH POC ABG pCO2 POC ABG pO2 ABG pO2 ABG HCO3 ABG Base Excess ABG Hemoglobin ABG Oxyhemoglobin ABG Potassium ABG Chloride ABG Glucose Oxyhemoglobin Carboxyhemoglobin Sodium Potassium Chloride Carbon Dioxide BUN Creatinine Glucose POC Glucose 169 H Calcium Phosphorus AST ALT Alkaline Phosphatase Lactate Dehydrogenase CK-MB (CK-2) CK-MB (CK-2) Rel Index Troponin T C-Reactive Protein NT-Pro-B Natriuret Pep Albumin HDL Cholesterol TSH Arterial Blood Glucose Arterial Blood Ionized Calcium Hepatitis C Antibody Crossmatch See Detail 07/28/20 07/28/2007/28/21 11:32 17:28 23:58 WBC RBC Hgb Hct MCV RDW Plt Count Lymph % (Auto) [place] % (Auto) Lymph # (Auto) [place] # (Auto) Seg Neutrophils % Seg Neuts % (Manual) Lymphocytes % (Manual) Nucleated RBC % Seg Neutrophils # Man Lymphocytes # (Manual) PT INR APTT D-Dimer ABG pH POC ABG pCO2 POC ABG pO2 ABG pO2 ABG HCO3 ABG Base Excess ABG Hemoglobin ABG Oxyhemoglobin ABG Potassium ABG Chloride ABG Glucose Oxyhemoglobin Carboxyhemoglobin Sodium Potassium Chloride Carbon Dioxide BUN Creatinine Glucose POC Glucose 185 H 208 H 227 H Calcium Phosphorus AST ALT Alkaline Phosphatase Lactate Dehydrogenase CK-MB (CK-2) CK-MB (CK-2) Rel Index Troponin T C-Reactive Protein NT-Pro-B Natriuret Pep Albumin HDL Cholesterol TSH Arterial Blood Glucose Arterial Blood Ionized Calcium Hepatitis C Antibody Crossmatch 07/29/20 07/29/20 07/29/20 05:37 12:04 17:11 WBC RBC Hgb Hct MCV RDW Plt Count Lymph % (Auto) [place] % (Auto) Lymph # (Auto) [place] # (Auto) Seg Neutrophils % Seg Neuts % (Manual) Lymphocytes % (Manual) Nucleated RBC % Seg Neutrophils # Man Lymphocytes # (Manual) PT INR APTT D-Dimer ABG pH POC ABG pCO2 POC ABG pO2 ABG pO2 ABG HCO3 ABG Base Excess ABG Hemoglobin ABG Oxyhemoglobin ABG Potassium ABG Chloride ABG Glucose Oxyhemoglobin Carboxyhemoglobin Sodium Potassium Chloride Carbon Dioxide BUN Creatinine Glucose POC Glucose 225 H 201 H 185 H Calcium Phosphorus AST ALT Alkaline Phosphatase Lactate Dehydrogenase CK-MB (CK-2) CK-MB (CK-2) Rel Index Troponin T C-Reactive Protein NT-Pro-B Natriuret Pep Albumin HDL Cholesterol TSH Arterial Blood Glucose Arterial Blood Ionized Calcium Hepatitis C Antibody Crossmatch 07/29/20 07/30/20 07/30/20 23:48 05:38 09:05 WBC RBC 2.49 L Hgb 7.7 L Hct 23.1 L MCV RDW 20.5 H Plt Count 54 L Lymph % (Auto) [place] % (Auto) Lymph # (Auto) [place] # (Auto) Seg Neutrophils % Seg Neuts % (Manual) Lymphocytes % (Manual) Nucleated RBC % Seg Neutrophils # Man Lymphocytes # (Manual) PT INR APTT D-Dimer ABG pH POC ABG pCO2 POC ABG pO2 ABG pO2 ABG HCO3 ABG Base Excess ABG Hemoglobin ABG Oxyhemoglobin ABG Potassium ABG Chloride ABG Glucose Oxyhemoglobin Carboxyhemoglobin Sodium Potassium Chloride Carbon Dioxide BUN Creatinine Glucose POC Glucose 209 H 205 H Calcium Phosphorus AST ALT Alkaline Phosphatase Lactate Dehydrogenase CK-MB (CK-2) CK-MB (CK-2) Rel Index Troponin T C-Reactive Protein NT-Pro-B Natriuret Pep Albumin HDL Cholesterol TSH Arterial Blood Glucose Arterial Blood Ionized Calcium Hepatitis C Antibody Crossmatch 07/30/20 07/30/20 07/30/20 09:05 11:42 17:46 WBC RBC Hgb Hct MCV RDW Plt Count Lymph % (Auto) [place] % (Auto) Lymph # (Auto) [place] # (Auto) Seg Neutrophils % Seg Neuts % (Manual) Lymphocytes % (Manual) Nucleated RBC % Seg Neutrophils # Man Lymphocytes # (Manual) PT INR APTT D-Dimer ABG pH POC ABG pCO2 POC ABG pO2 ABG pO2 ABG HCO3 ABG Base Excess ABG Hemoglobin ABG Oxyhemoglobin ABG Potassium ABG Chloride ABG Glucose Oxyhemoglobin Carboxyhemoglobin Sodium 135 L Potassium Chloride Carbon Dioxide BUN 52 H Creatinine 4.1 H Glucose 236 H POC Glucose 224 H 195 H Calcium Phosphorus AST ALT Alkaline Phosphatase Lactate Dehydrogenase CK-MB (CK-2) CK-MB (CK-2) Rel Index Troponin T C-Reactive Protein NT-Pro-B Natriuret Pep Albumin HDL Cholesterol TSH Arterial Blood Glucose Arterial Blood Ionized Calcium Hepatitis C Antibody Crossmatch 07/30/20 07/30/20 07/31/20 21:09 23:45 05:10 WBC RBC 2.46 L Hgb 7.6 L Hct 22.6 L MCV RDW 19.4 H Plt Count 77 L Lymph % (Auto) [place] % (Auto) Lymph # (Auto) [place] # (Auto) Seg Neutrophils % Seg Neuts % (Manual) Lymphocytes % (Manual) Nucleated RBC % Seg Neutrophils # Man Lymphocytes # (Manual) PT INR APTT D-Dimer ABG pH POC ABG pCO2 POC ABG pO2 ABG pO2 ABG HCO3 ABG Base Excess ABG Hemoglobin ABG Oxyhemoglobin ABG Potassium ABG Chloride ABG Glucose Oxyhemoglobin Carboxyhemoglobin Sodium Potassium Chloride Carbon Dioxide BUN Creatinine Glucose POC Glucose 153 H 185 H Calcium Phosphorus AST ALT Alkaline Phosphatase Lactate Dehydrogenase CK-MB (CK-2) CK-MB (CK-2) Rel Index Troponin T C-Reactive Protein NT-Pro-B Natriuret Pep Albumin HDL Cholesterol TSH Arterial Blood Glucose Arterial Blood Ionized Calcium Hepatitis C Antibody Crossmatch 07/31/20 07/31/20 07/31/20 05:17 11:48 17:20 WBC RBC Hgb Hct MCV RDW Plt Count Lymph % (Auto) [place] % (Auto) Lymph # (Auto) [place] # (Auto) Seg Neutrophils % Seg Neuts % (Manual) Lymphocytes % (Manual) Nucleated RBC % Seg Neutrophils # Man Lymphocytes # (Manual) PT INR APTT D-Dimer ABG pH POC ABG pCO2 POC ABG pO2 ABG pO2 ABG HCO3 ABG Base Excess ABG Hemoglobin ABG Oxyhemoglobin ABG Potassium ABG Chloride ABG Glucose Oxyhemoglobin Carboxyhemoglobin Sodium Potassium Chloride Carbon Dioxide BUN Creatinine Glucose POC Glucose 163 H 144 H 133 H Calcium Phosphorus AST ALT Alkaline Phosphatase Lactate Dehydrogenase CK-MB (CK-2) CK-MB (CK-2) Rel Index Troponin T C-Reactive Protein NT-Pro-B Natriuret Pep Albumin HDL Cholesterol TSH Arterial Blood Glucose Arterial Blood Ionized Calcium Hepatitis C Antibody Crossmatch 07/31/20 08/01/20 08/01/20 23:04 05:22 05:22 WBC RBC 2.26 L Hgb 7.0 L Hct 21.0 L MCV RDW 19.6 H Plt Count 85 L Lymph % (Auto) [place] % (Auto) Lymph # (Auto) [place] # (Auto) Seg Neutrophils % Seg Neuts % (Manual) Lymphocytes % (Manual) Nucleated RBC % Seg Neutrophils # Man Lymphocytes # (Manual) PT INR APTT D-Dimer ABG pH POC ABG pCO2 POC ABG pO2 ABG pO2 ABG HCO3 ABG Base Excess ABG Hemoglobin ABG Oxyhemoglobin ABG Potassium ABG Chloride ABG Glucose Oxyhemoglobin Carboxyhemoglobin Sodium 133 L Potassium Chloride Carbon Dioxide BUN 57 H Creatinine 4.4 H Glucose 166 H POC Glucose 140 H Calcium 7.8 L Phosphorus 5.10 H AST ALT Alkaline Phosphatase Lactate Dehydrogenase CK-MB (CK-2) CK-MB (CK-2) Rel Index Troponin T C-Reactive Protein NT-Pro-B Natriuret Pep Albumin HDL Cholesterol TSH Arterial Blood Glucose Arterial Blood Ionized Calcium Hepatitis C Antibody Crossmatch 08/01/20 05:49 WBC RBC Hgb Hct MCV RDW Plt Count Lymph % (Auto) [place] % (Auto) Lymph # (Auto) [place] # (Auto) Seg Neutrophils % Seg Neuts % (Manual) Lymphocytes % (Manual) Nucleated RBC % Seg Neutrophils # Man Lymphocytes # (Manual) PT INR APTT D-Dimer ABG pH POC ABG pCO2 POC ABG pO2 ABG pO2 ABG HCO3 ABG Base Excess ABG Hemoglobin ABG Oxyhemoglobin ABG Potassium ABG Chloride ABG Glucose Oxyhemoglobin Carboxyhemoglobin Sodium Potassium Chloride Carbon Dioxide BUN Creatinine Glucose POC Glucose 154 H Calcium Phosphorus AST ALT Alkaline Phosphatase Lactate Dehydrogenase CK-MB (CK-2) CK-MB (CK-2) Rel Index Troponin T C-Reactive Protein NT-Pro-B Natriuret Pep Albumin HDL Cholesterol TSH Arterial Blood Glucose Arterial Blood Ionized Calcium Hepatitis C Antibody Crossmatch Allied health notes reviewed: nursing
--- NOTE | 2020-08-01 13:20 | Progress Note ---
Assessment and Plan Assessment and plan: -Acute on chronic kidney disease stage III; Nephrology consulted, appreciate recommendations Vasomotor nephropathy, Nephrology initiated hemodialysis Management per nephrology, HD per schedule -Acute hypoxic respiratory failure Intubated 07/22/2020 CCM consulted, appreciate recommendations VAP bundle, wean as tolerated -Non-STEMI type II Likely secondary to respiratory failure, CKD Cardiology consulted, appreciate recommendations -Hyponatremia Electrolyte correction with HD -Acute toxic metabolic encephalopathy; CT head without contrast, no acute abnormality Neurology consulted, appreciate recommendations EEG pending -Severe protein calorie malnutrition/hypoalbuminemia, nutrition supplements, tube feeding, nutrition consult -Thrombocytopenia HIT antibodies negative Trend CBC -Hypothermia Symptomatic treatment s/p antibiotics -h/o right calf abscess -h/o MSSA sepsis Infectious disease consulted, appreciate recommendations s/p Unasyn, completed 07/24 -Type 2 diabetes mellitus Blood sugars in the lower range, avoid hypoglycemia Accu-Chek sliding scale coverage ADA diet Long-acting insulin as needed, check HbA1c 8.3 last month -Acute on chronic systolic CHF EF 35 to 40% [04/2020] Continue antifailure medications Cardiology consulted, appreciate recommendations -History of seizure disorder Seizure precautions, continue Keppra -History of CVA; with residual weakness Fall precautions, PT OT as needed -DVT prophylaxis: thrombocytopenia, no anticoagulation. Continue SCDs -GI prophylaxis: PPI The high probability of a clinically significant, sudden or life threatening deterioration of the [multi] system(s) required my full and direct attention, intervention and personal management. The aggregate critical care time was [35] minutes. This time is in addition to time spent performing reported procedures but includes the following: [x] Data Review and interpretation [x] Patient assessment and monitoring of vital signs [x] Documentation [x] Medication orders and management History Interval history: This is 65-year-old male with diabetes mellitus, chronic kidney disease, CVA with residual weakness admitted to the hospitalist service with altered level consciousness and unresponsiveness. Patient started to be in sepsis secondary to MSSA bacteremia long-term antibiotics and his renal function progressively deteriorated. Patient initially refused outpatient dialysis then went into respiratory arrest requiring intubation and mechanical ventilation and was transferred to ICU. Patient family gave consent for hemodialysis and the patient remains intubated in the ICU. [facility], nephrology, cardiology and vascular surgery were consulted for care. Sepsis Acute on chronic kidney disease stage III Acute hypoxic respiratory failure NSTEMI type II Bradycardia Hyponatremia Acute toxic metabolic encephalopathy Severe protein calorie malnutrition/hypoalbuminemia Thrombocytopenia MSSA sepsis Type 2 diabetes mellitus Acute on chronic systolic congestive heart failure, EF 30 to 45% Seizure disorder CVA 07/19/2020; unable to pass Ayala catheter, consulted urology, continue supportive care, COVID-19 test negative 07/20/2020; urology evaluation recommendation noted and appreciated. Ayala catheter was inserted by urology, draining well, MSSA bacteremia on long-term antibiotics 07/21/2020; patient is lethargic, CT head without contrast, no acute abnormality, Patient is afebrile 07/22/2020; patient had acute respiratory failure this morning. JEFFERY IBARRA was called, patient was intubated on ventilatory support, pulmonary critical consulted, family patients aunt informed 07/23/2020; patient has severe bradycardia this morning, received atropine, Cardiology following. Beta-blockers held, electrolytes corrected. Patient's heart rate improved to 50s and 60s Cardiology following. Nephrology planning hemodialysis trying to get consent from family 07/24/2020; patient received hemodialysis yesterday. Remains intubated on ventilatory support. Bradycardia significantly improved heart rate in 60s. Completed 6 weeks of Unasyn for MSSA sepsis today 07/25/2020; patient remains on ventilatory support. Receiving HD per schedule dual. Wean as tolerated and extubate 07/26/2020; patient remains on ventilatory support, wean as tolerated and extubate. Initiated hemodialysis, HD per schedule, new set of blood culture sent 07/30: No acute events reported overnight. Patient remains unresponsive without sedation in the CT head was obtained which showed interval development of extensive hypoattenuation in the cerebral white matter, corpus callosum, globus thalami and probable indented nuclei finding likely test of global hypoxic ischemic injury with no acute hemorrhage or mass-effect. We consulted neurology and ordered an EEG for further work-up. no acute events reported overnight. He remains on MV. 07/31: PSV trials, HD per renal, bear hugger in place is unable to obtain temperature. Neurology consult and EEG pending. No acute events reported overnight. No acute events reported overnight. 08/01: This morning patient still has his giuseppe hugger in place, remains hyponatremic and hypokalemic and hypophosphatemic. Patient's H/H is 11/28. Patient remains on CMV 450-12-6/0.25 at the time of examination. Patient's CT head showed hypoxia/ischemic brain injury however his EEG was interpreted as normal awake and sleep pattern. Patient was given a trial dose of Narcan for CCM without improvement. Will order repeat EEG per neurology. No acute events reported overnight. Hospitalist Physical - Constitutional Vitals: Temp Pulse Resp BP Pulse Ox 98.9 F 82 17 137/71 100 08/01/20 12:15 08/01/20 13:00 08/01/20 13:00 08/01/20 13:00 08/01/20 13:00 General appearance: Present: no acute distress, well-nourished - EENT Eyes: Present: PERRL - Neck Neck: Absent: masses or JVD, cervical LAD - Respiratory Respiratory effort: normal Respiratory: bilateral: diminished - Cardiovascular Rhythm: regular Heart Sounds: Present: S1 & S2. Absent: systolic murmur, diastolic murmur - Extremities Extremities: no ischemia, pulses intact, pulses symmetrical, No edema, normal temperature, normal color Peripheral Pulses: within normal limits - Abdominal General gastrointestinal: soft, non-tender, non-distended, normal bowel sounds - Integumentary Integumentary: Present: warm, dry - Psychiatric Psychiatric: other - Neurologic Neurologic: other - Allied Health Allied health notes reviewed: nursing HEART Score - HEART Score Troponin: Troponin T 0.047 ng/mL (0.00-0.029) H 07/22/20 10:30 Results - Labs CBC & Chem 7: 08/01/20 05:22 08/01/20 05:22 Labs: Laboratory Last Values WBC 8.9 K/mm3 (4.5-11.0) 08/01/20 05:22 RBC 2.26 M/mm3 (3.65-5.03) L 08/01/20 05:22 Hgb 7.0 gm/dl (11.8-15.2) L 08/01/20 05:22 Hct 21.0 % (35.5-45.6) L 08/01/20 05:22 MCV 93 fl (84-94) 08/01/20 05:22 MCH 31 pg (28-32) 08/01/20 05:22 MCHC 33 % (32-34) 08/01/20 05:22 RDW 19.6 % (13.2-15.2) H 08/01/20 05:22 Plt Count 85 K/mm3 (140-440) L 08/01/20 05:22 Lymph % (Auto) 15.7 % (13.4-35.0) 07/28/20 04:00 [place] % (Auto) 9.1 % (0.0-7.3) H 07/28/20 04:00 Eos % (Auto) 0.4 % (0.0-4.3) 07/28/20 04:00 Baso % (Auto) 0.3 % (0.0-1.8) 07/28/20 04:00 Lymph # (Auto) 1.6 K/mm3 (1.2-5.4) 07/28/20 04:00 [place] # (Auto) 0.9 K/mm3 (0.0-0.8) H 07/28/20 04:00 Eos # (Auto) 0.0 K/mm3 (0.0-0.4) 07/28/20 04:00 Baso # (Auto) 0.0 K/mm3 (0.0-0.1) 07/28/20 04:00 Add Manual Diff Complete 07/27/20 06:36 Total Counted 100 07/27/20 06:36 Seg Neutrophils % 74.5 % (40.0-70.0) H 07/28/20 04:00 Seg Neuts % (Manual) 88.0 % (40.0-70.0) H 07/27/20 06:36 Lymphocytes % (Manual) 11.0 % (13.4-35.0) L 07/27/20 06:36 Monocytes % (Manual) 1.0 % (0.0-7.3) 07/27/20 06:36 Nucleated RBC % 2.0 % (0.0-0.9) H 07/27/20 06:36 Seg Neutrophils # 7.7 K/mm3 (1.8-7.7) 07/28/20 04:00 Seg Neutrophils # Man 8.9 K/mm3 (1.8-7.7) H 07/27/20 06:36 Band Neutrophils # 0.0 K/mm3 07/27/20 06:36 Lymphocytes # (Manual) 1.1 K/mm3 (1.2-5.4) L 07/27/20 06:36 Abs React Lymphs (Man) 0.0 K/mm3 07/27/20 06:36 Monocytes # (Manual) 0.1 K/mm3 (0.0-0.8) 07/27/20 06:36 Eosinophils # (Manual) 0.0 K/mm3 (0.0-0.4) 07/27/20 06:36 Basophils # (Manual) 0.0 K/mm3 (0.0-0.1) 07/27/20 06:36 Metamyelocytes # 0.0 K/mm3 07/27/20 06:36 Myelocytes # 0.0 K/mm3 07/27/20 06:36 Promyelocytes # 0.0 K/mm3 07/27/20 06:36 Blast Cells # 0.0 K/mm3 07/27/20 06:36 WBC Morphology Not Reportable 07/27/20 06:36 Hypersegmented Neuts Not Reportable 07/27/20 06:36 Hyposegmented Neuts Not Reportable 07/27/20 06:36 Hypogranular Neuts Not Reportable 07/27/20 06:36 Smudge Cells Not Reportable 07/27/20 06:36 Toxic Granulation Not Reportable 07/27/20 06:36 Toxic Vacuolation Not Reportable 07/27/20 06:36 Dohle Bodies Not Reportable 07/27/20 06:36 Pelger-Huet Anomaly Not Reportable 07/27/20 06:36 Clint Rods Not Reportable 07/27/20 06:36 Platelet Estimate Consistent w auto 07/27/20 06:36 Clumped Platelets Not Reportable 07/27/20 06:36 Plt Clumps, EDTA Not Reportable 07/27/20 06:36 Large Platelets Not Reportable 07/27/20 06:36 Giant Platelets Not Reportable 07/27/20 06:36 Platelet Satelliting Not Reportable 07/27/20 06:36 Plt Morphology Comment Not Reportable 07/27/20 06:36 RBC Morphology Not Reportable 07/27/20 06:36 Dimorphic RBCs Not Reportable 07/27/20 06:36 Polychromasia Not Reportable 07/27/20 06:36 Hypochromasia Not Reportable 07/27/20 06:36 Poikilocytosis Not Reportable 07/27/20 06:36 Anisocytosis Few 07/27/20 06:36 Microcytosis Not Reportable 07/27/20 06:36 Macrocytosis Not Reportable 07/27/20 06:36 Spherocytes Not Reportable 07/27/20 06:36 Pappenheimer Bodies Not Reportable 07/27/20 06:36 Sickle Cells Not Reportable 07/27/20 06:36 Target Cells Not Reportable 07/27/20 06:36 Tear Drop Cells Not Reportable 07/27/20 06:36 Ovalocytes Not Reportable 07/27/20 06:36 Helmet Cells Not Reportable 07/27/20 06:36 [place] Bodies Not Reportable 07/27/20 06:36 [place] Rings Not Reportable 07/27/20 06:36 [place] Cells Not Reportable 07/27/20 06:36 Bite Cells Not Reportable 07/27/20 06:36 Crenated Cell Not Reportable 07/27/20 06:36 Elliptocytes Not Reportable 07/27/20 06:36 Acanthocytes (Spur) Not Reportable 07/27/20 06:36 Rouleaux Not Reportable 07/27/20 06:36 Hemoglobin C Crystals Not Reportable 07/27/20 06:36 Schistocytes Rare 07/27/20 06:36 Malaria parasites Not Reportable 07/27/20 06:36 Carl Bodies Not Reportable 07/27/20 06:36 Hem Pathologist Commnt No 07/27/20 06:36 PT 15.9 Sec. (12.2-14.9) H 07/22/20 10:30 INR 1.27 (0.87-1.13) H 07/22/20 10:30 APTT 38.3 Sec. (24.2-36.6) H 07/22/20 10:30 D-Dimer 1036.46 ng/mlDDU (0-234) H 07/18/20 08:56 Heparin Anti-Xa, Unfract Negative (Negative) 07/23/20 08:54 ABG pH 7.520 pH Units (7.350-7.450) H 07/27/20 05:20 POC ABG pCO2 32.7 mmHg (32.0-48.0) 07/25/20 03:57 ABG pCO2 33.5 mm Hg 07/27/20 05:20 POC ABG pO2 62.7 mmHg (83-108) L 07/25/20 03:57 ABG pO2 64.2 mm Hg (80.0-90.0) L 07/27/20 05:20 POC ABG HCO3 24.8 07/25/20 03:57 ABG HCO3 26.8 mmol/L (20.0-26.0) H 07/27/20 05:20 ABG O2 Saturation 95.8 % (95.0-99.0) 07/27/20 05:20 ABG O2 Content 9.5 (0.0-44) 07/27/20 05:20 POC ABG Base Excess 1.7 07/25/20 03:57 ABG Base Excess 3.7 mmol/L (-2.0-3.0) H 07/27/20 05:20 ABG Hemoglobin 7.2 gm/dl (14.0-18.0) L 07/27/20 05:20 ABG Oxyhemoglobin 90.1 (94-98) L 07/25/20 03:57 ABG Carboxyhemoglobin 2.3 % (0.0-5.0) 07/27/20 05:20 ABG Methemoglobin 0.5 % (0.0-1.5) 07/27/20 05:20 ABG Sodium 138.7 mmol/L (136.0-145.0) 07/25/20 03:57 ABG Potassium 4.0 mmol/L (3.40-4.50) 07/25/20 03:57 ABG Chloride 110.0 mmol/L (98-107) H 07/25/20 03:57 ABG Glucose 157 mg/dL (65-95) H 07/25/20 03:57 Oxyhemoglobin 93.2 % (95.0-99.0) L 07/27/20 05:20 Carboxyhemoglobin 1.1 (0.5-1.5) 07/25/20 03:57 FiO2 25 % 07/27/20 05:20 FiO2 % 40 07/25/20 03:57 Sodium 133 mmol/L (137-145) L 08/01/20 05:22 Potassium 4.0 mmol/L (3.6-5.0) 08/01/20 05:22 Chloride 98.4 mmol/L (98-107) 08/01/20 05:22 Carbon Dioxide 26 mmol/L (22-30) 08/01/20 05:22 Anion Gap 13 mmol/L 08/01/20 05:22 BUN 57 mg/dL (9-20) H 08/01/20 05:22 Creatinine 4.4 mg/dL (0.8-1.3) H 08/01/20 05:22 Estimated GFR 17 ml/min 08/01/20 05:22 BUN/Creatinine Ratio 13 % 08/01/20 05:22 Glucose 166 mg/dL (75-100) H 08/01/20 05:22 POC Glucose 128 mg/dL (70-105) H 08/01/20 11:18 Lactic Acid 0.80 mmol/L (0.7-2.0) 07/18/20 08:56 Calcium 7.8 mg/dL (8.4-10.2) L 08/01/20 05:22 Phosphorus 5.10 mg/dL (2.5-4.5) H 08/01/20 05:22 Magnesium 2.00 mg/dL (1.7-2.3) 08/01/20 05:22 Ferritin 198.6 ng/mL (30.0-300.0) 07/18/20 10:36 Total Bilirubin 0.30 mg/dL (0.1-1.2) 07/22/20 10:30 Direct Bilirubin 0.2 mg/dL (0-0.2) 07/19/20 06:00 Indirect Bilirubin 0.2 mg/dL 07/19/20 06:00 AST 66 units/L (5-40) H 07/22/20 10:30 ALT < 5 units/L (7-56) L 07/22/20 10:30 Alkaline Phosphatase 604 units/L (35-129) H 07/22/20 10:30 Ammonia 41.0 umol/L (25-60) 07/18/20 08:56 Lactate Dehydrogenase 212 units/L (91-180) H 07/18/20 10:36 Total Creatine Kinase 67 units/L (55-170) 07/22/20 10:30 CK-MB (CK-2) 10.9 ng/mL (0.0-4.0) H 07/22/20 10:30 CK-MB (CK-2) Rel Index 16.2 (0-4) H 07/22/20 10:30 Troponin T 0.047 ng/mL (0.00-0.029) H 07/22/20 10:30 C-Reactive Protein 2.10 mg/dL (0.00-1.30) H 07/18/20 10:36 NT-Pro-B Natriuret Pep 4777 pg/mL (0-900) H 07/18/20 08:56 Total Protein 6.4 g/dL (6.3-8.2) 07/22/20 10:30 Albumin 2.1 g/dL (3.9-5) L 07/22/20 10:30 Albumin/Globulin Ratio 0.5 % 07/22/20 10:30 Triglycerides 65 mg/dL (2-149) 07/18/20 08:56 Cholesterol 157 mg/dL (50-199) 07/18/20 08:56 LDL Cholesterol Direct 95 mg/dL (50-130) 07/18/20 08:56 HDL Cholesterol 67 mg/dL (40-59) H 07/18/20 08:56 Cholesterol/HDL Ratio 2.34 % 07/18/20 08:56 Procalcitonin 0.10 ng/mL (<0.15) 07/18/20 10:36 TSH 5.520 mlU/mL (0.270-4.200) H 07/18/20 08:56 Free T4 0.84 ng/dL (0.76-1.46) 07/18/20 08:56 Arterial Blood Glucose 157 mg/dL (65-95) H 07/25/20 03:57 Arterial Blood Ionized Calcium 4.3 mg/dL (4.6-5.3) L 07/25/20 03:57 Random Vancomycin 11.5 ug/mL (0-40.0) 07/28/20 05:00 Heparin-induced Plt Ab Negative (Negative) 07/23/20 08:54 UF Heparin High Dose 0 % Release 07/23/20 08:54 MAGEN UFH Low Dose 0.1 0 % Release 07/23/20 08:54 MAGEN UFH Low Dose 0.5 0 % Release 07/23/20 08:54 Coronavirus (PCR) Negative (Negative) 07/18/20 12:07 Hepatitis A IgM Ab Non-reactive (NonReactive) 07/23/20 19:20 Hep Bs Antigen Non-reactive (Negative) 07/23/20 19:20 Hep B Core IgM Ab Non-reactive (NonReactive) 07/23/20 19:20 Hepatitis C Antibody Reactive (NonReactive) A 07/23/20 19:20 Blood Type A POSITIVE 07/28/20 10:15 Antibody Screen Negative 07/28/20 10:15 Crossmatch See Detail 07/28/20 10:15 Microbiology: Microbiology 07/26/20 14:43 Peripheral/Venous Blood Culture - Final NO GROWTH AFTER 5 DAYS 07/26/20 14:31 Peripheral/Venous Blood Culture - Final NO GROWTH AFTER 5 DAYS Ayala/IV: Voiding Method Incontinent Active Medications - Current Medications Current Medications: Generic Name Dose Route Start Last Admin Trade Name Freq PRN Reason Stop Dose Admin Lipase/Protease/Amylase 1 each 07/23/20 14:17 Lipase 10,500/Protease 25,000/Amylase 43,750 (Units) Dr Shell FEEDTUBE PRN PRN For Clogged Feeding Tube Aspirin 81 mg 08/01/20 10:00 08/01/20 11:27 Aspirin 81 Mg Tab Chew PO 81 mg QDAY JODIE Administration Atropine Sulfate 1 mg 07/23/20 09:03 07/23/20 22:15 Atropine 0.1% (1 Mg/10 Ml) Cardiac Syringe IV 1 mg PRN PRN Administration Bradycardia Dextrose 50 ml 07/23/20 03:28 07/23/20 06:00 Dextrose 50% In Water (25gm) 50 Ml Syringe IV 50 ml Q30MIN PRN Administration Hypoglycemia Protocol Famotidine 20 mg 07/18/20 22:00 08/01/20 09:55 Famotidine 20 Mg Tab PO 20 mg DAILY JODIE Administration Folic Acid 1 mg 07/19/20 10:00 08/01/20 09:55 Folic Acid 1 Mg Tab PO 1 mg DAILY JODIE Administration Hydralazine HCl 50 mg 07/18/20 14:00 08/01/20 05:59 Hydralazine 25 Mg Tab PO Not Given Q8HR JODIE Hydralazine HCl 20 mg 07/22/20 14:02 Hydralazine 20 Mg/1 Ml Inj IV Q4HR PRN Blood Pressure Hydrophilic Ointment 1 applic 07/22/20 10:02 Lip Therapy Vaseline TP Q2HR PRN Dry Lips Norepinephrine 4 mg in 250 mls @ 7.5 mls/hr 07/24/20 10:00 07/24/20 15:35 Levophed Drip 4 Mg/Ns 250 Ml IV 0 mcg/min TITR JODIE 0 mls/hr Titration Protocol 2 MCG/MIN Sodium Chloride 100 mls @ 999 mls/hr 07/31/20 08:21 Nacl 0.9% IV FRANCISCO PRN Hypotension Insulin Glargine 10 units 07/30/20 22:00 07/31/20 21:05 Insulin Glargine 100 Units/Ml SUB-Q 10 units QHS JODIE Administration Insulin Human Lispro 0 unit 07/26/20 10:00 08/01/20 06:27 Insulin Lispro 100 Unit/Ml SUB-Q 2 unit Q6HR JODIE Administration Protocol Levetiracetam 750 mg 07/18/20 22:00 08/01/20 09:55 Levetiracetam 500 Mg/5 Ml Oral Liqd PO 750 mg BID JODIE Administration Multi-Ingred Cream/Lotion/Oil/Oint 1 applic 07/22/20 10:02 Mineral Oil/Petrolatum, White Ophth Oint 3.5 Gm OU Q4HR PRN Dry Eye(s) Scopolamine 1 each 07/31/20 10:00 07/31/20 11:00 Scopolamine Transdermal Patch 72 Hr TD 1 each Q3D JODIE Administration Simple Syrup 15 ml 07/23/20 14:17 Simple Syrup 15 Ml FEEDTUBE PRN PRN Hypoglycemia Simple Syrup 30 ml 07/23/20 14:17 Simple Syrup 15 Ml FEEDTUBE PRN PRN Hypoglycemia Sodium Bicarbonate 325 mg 07/23/20 14:17 Sodium Bicarbonate 325 Mg Tab FEEDTUBE PRN PRN For Clogged Feeding Tube Thiamine HCl 100 mg 07/19/20 10:00 08/01/20 09:56 Thiamine 100 Mg Tab PO 100 mg QDAY JODIE Administration Nutrition/Malnutrition Assess - Dietary Evaluation Nutrition/Malnutrition Findings: Nutrition Notes Start: 07/19/20 09 :53 Freq: Status: Active Protocol: Document 08/01/20 12:07 LP (Rec: 08/01/20 12:13 LP [email or web address]) Nutrition Notes Initial or Follow up Reassessment Current Diagnosis CKD(stage I-IV),Diabetes, Sepsis,Heart Failure, Respiratory Failure,Stroke Other Pertinent Diagnosis On HD,Acute toxic metabolic encephalopathy, Bradycardia, ( R) LE wound, Current Diet Nepro 1.8 at 42 ml/hr Labs/Tests Na 133 BUN 57 Cr 4.4 BG 160 Phos 5.1 Pertinent Medications Reviewed Height 5 ft 9 in Weight 101.3 kg [place] Body Weight (kg) 72.72 BMI 33.0 Weight change and time frame Wt change noted on HD Weight Status Obese Subjective/Other Information Pt tolerating TF at goal. Observed TF with error message . Percent of energy/protein needs met: 99%/57% Burn Absent Trauma Absent Difficulty In Swallowing Skin Integrity/Comment Diabetic ulcers to BLE Current % PO Negligible Minimum of two criteria Yes Body Fat Depletion Mild depletion (non-severe) Muscle Mass Mild Depletion (non-severe) Fluid Accumulation Moderate to Severe (severe) #2 Nutrition Diagnosis Malnutrition Etiology Unknown As Evidenced by Signs and Symptoms Observed muscle and fat mass depletion, fluid accumulation #1 Nutrition Diagnosis Inadequate oral intake Diagnosis Progress(for reassessment Continues documentation) Is patient on ventilator? Yes Is Patient Ambulatory and/or Out of Bed No REE-([place]-confined to bed) 2168.784 Kcal/Kg value to use for calculation 18 Approximate Energy Requirements Using 1823 kcal/Kg Calculation Used for Recommendations Kcal/kg Additional Notes Protein needs: >144g (>2.0 g/ kgIBW) Fluid needs 1000 - 1500 ml/day Nutrition Intervention Change Diet Order: TF Nutrition Support: Increase Nepro at 50 ml/h with a free water flush of 125 ml q4h. Kcal 2,160 Protein (gm) 97 Fluid (mL) 872 Add Supplement/Snack (indicate name/kcal Pawel BID /protein ) Provides kCal: 190 Provides Protein (gm) 5 Goal #1 TF tolerance Goal #2 Meet at estimated energy and protein needs as best as possible. Anticipated Discharge Needs: Unable to determine at this time Follow-Up By: 08/03/20 Additional Comments Follow for TF increase and Pawel start
--- NOTE | 2020-08-01 14:13 | Event Note ---
I spoke ti the patient brother Ge Boo at [phone] about his current mental state and went over the CTH and EEG results. All questions answered.
--- NOTE | 2020-08-01 21:36 | XRay Report ---
ABDOMEN 1 VIEW INDICATION / CLINICAL INFORMATION: NEW NGT. COMPARISON: None available. FINDINGS: TUBES / LINES: Esophagogastric tube tip and sidehole project over the upper abdomen near the stomach. BOWEL GAS PATTERN: No significant abnormality. FREE AIR / EXTRALUMINAL GAS: None seen. ADDITIONAL FINDINGS: No significant additional findings. IMPRESSION: 1. Esophagogastric tube in expected position. Signer Name: Gwyn Davis MD Signed: 08/01/2020 9:32 PM Workstation Name: [id number]
[2020-08-01] MEDS: INSULIN GLARGINE 100 UNITS/ML SUB-Q SCH (21:47)
[2020-08-02 07:14] LABS: Hemoglobin 6.7 gm/dl (11.8-15.2); Mean Corpuscular HGB Conc 33 % (32-34); Mean Corpuscular Volume 93 fl (84-94); Platelet Count 104 K/mm3 (140-440); Red Blood Count 2.14 M/mm3 (3.65-5.03); Red Cell Distribution Width 19.4 % (13.2-15.2)
[2020-08-02] MEDS: FAMOTIDINE 20 MG TAB PO SCH (09:59)
[2020-08-02] MEDS: FOLIC ACID 1 MG TAB PO SCH (10:00)
[2020-08-02] MEDS: THIAMINE 100 MG TAB PO SCH (10:00)
[2020-08-02] MEDS: levETIRAcetam 500 MG/5 ML ORAL LIQD PO SCH ×2 (10:00→21:39)
--- NOTE | 2020-08-02 10:02 | Progress Note ---
Assessment and Plan 8 y/o male with acute respiratory failure secondary to worsening renal failure, volume overload and altered mental state 08/02/20: Will consider ordering repeat EEG today tomorrow. Neuro has not re- evaluated the patient since initial consult. Hold on transfusion today as bp is stable and HD is not until tomorrow. Overall prognosis is guarded to poor. May need to start looking into LTACH if not able to wean. Currently on minimal s ettings but mental state will not allow traditional extubation. 08/01/20: Will repeat EEG at request of neurology. No MRI requested. CT and EEG report not equivalent. Trial of narcan given but no improvement. Does have urine in the bladder but no jones and prior history of obstruction requiring urology to place jones. May need to consider asking them to re-evaluate. Prognosis remains guarded to poor. 07/31/20: Will obtain, EEG and neuro consult. They will likely ask for MRI so will speak with family about obtaining screening form info. Continue PSV trials. HD per renal. Guarded to poor prognosis. 07/30/20: Mental state continues to prevent conventional extubation. HD per renal. Need to repeat Head CT to check for other damage. 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 Very very guarded prognosis. If repeat head CT is negative, will need neuro eval and EEG 07/27/20: Mental state continues to prevent conventional extubation. Currently stable on minimal vent settings. HD per renal, does not appear he was dialyzed yesterday so may get it today. If not more awake by tomorrow, suggest repeat head CT. Continue all other supportive measures. 07/26/20: Drop PEEP down to 6. Once more awake PSV trials. HD per renal. Appears to be helping, maybe they will dialyze again today. Prognosis still remains guarded. 1. Needs HD 2. Wean FiO2 and PEEP as tolerated 3. Guarded prognosis CCT 31 minutes. Subjective Date of service: 08/02/20 Principal diagnosis: RACQUEL Interval history: No acute events. Remains unresponsive. Now with some dark blood oozing out of mouth. Hgb is 6.7. Had HD on yesterday. Remains hYpothermic but normotensive. REmainder is negative. Objective Vital Signs - 12hr 08/01/20 08/01/20 08/01/20 22:00 22:30 22:34 Temperature Pulse Rate 80 75 74 Pulse Rate [ From Monitor] Respiratory 16 14 15 Rate Blood Pressure 167/91 142/78 142/78 O2 Sat by Pulse 97 100 100 Oximetry 08/01/20 08/01/20 08/01/20 23:00 23:30 23:48 Temperature Pulse Rate 76 80 73 Pulse Rate [ From Monitor] Respiratory 14 15 Rate Blood Pressure 136/75 155/82 133/71 O2 Sat by Pulse 96 93 100 Oximetry 08/02/20 08/02/20 08/02/20 00:00 00:30 01:00 Temperature 97.5 F L Pulse Rate 73 76 82 Pulse Rate [ 80 From Monitor] Respiratory 14 13 17 Rate Blood Pressure 125/67 138/76 135/73 O2 Sat by Pulse 100 96 100 Oximetry 08/02/20 08/02/20 08/02/20 01:30 02:00 02:30 Temperature Pulse Rate 77 76 79 Pulse Rate [ From Monitor] Respiratory 14 17 16 Rate Blood Pressure 129/72 129/68 119/65 O2 Sat by Pulse 100 100 97 Oximetry 08/02/20 08/02/20 08/02/20 03:00 03:30 03:45 Temperature Pulse Rate 77 77 76 Pulse Rate [ From Monitor] Respiratory 18 16 Rate Blood Pressure 113/61 122/63 126/65 O2 Sat by Pulse 97 94 100 Oximetry 08/02/20 08/02/20 08/02/20 04:00 04:30 05:00 Temperature 97.5 F L Pulse Rate 80 78 79 Pulse Rate [ 80 From Monitor] Respiratory 17 17 17 Rate Blood Pressure 133/72 126/68 124/66 O2 Sat by Pulse 98 98 100 Oximetry 08/02/20 08/02/20 08/02/20 05:30 06:00 06:30 Temperature Pulse Rate 78 81 81 Pulse Rate [ From Monitor] Respiratory 17 20 19 Rate Blood Pressure 113/61 124/69 116/62 O2 Sat by Pulse 95 96 99 Oximetry 08/02/20 08/02/20 08/02/20 07:00 07:30 08:00 Temperature Pulse Rate 83 81 83 Pulse Rate [ 84 From Monitor] Respiratory 19 19 20 Rate Blood Pressure 114/60 116/63 116/63 O2 Sat by Pulse 100 100 99 Oximetry 08/02/20 08/02/20 08/02/20 08:30 08:39 09:00 Temperature Pulse Rate 82 82 87 Pulse Rate [ From Monitor] Respiratory 19 20 Rate Blood Pressure 113/60 113/60 135/72 O2 Sat by Pulse 99 100 97 Oximetry Constitutional: appears uncomfortable (cpap, orally intubated), other (on vent orally intubated) Eyes: non-icteric ENT: epistaxis Neck: other (large in circumference) Effort: mildly labored Ascultation: Bilateral: diminished breath sounds Neurologic: non-focal exam, unable to assess CBC and BMP: 08/02/20 05:25 08/01/20 05:22 ABG, PT/INR, D-dimer: ABG ABG pH 7.520 pH Units (7.350-7.450) H 07/27/20 05:20 POC ABG pCO2 32.7 mmHg (32.0-48.0) 07/25/20 03:57 ABG pCO2 33.5 mm Hg 07/27/20 05:20 POC ABG pO2 62.7 mmHg (83-108) L 07/25/20 03:57 ABG pO2 64.2 mm Hg (80.0-90.0) L 07/27/20 05:20 POC ABG HCO3 24.8 07/25/20 03:57 ABG O2 Saturation 95.8 % (95.0-99.0) 07/27/20 05:20 PT/INR, D-dimer PT 15.9 Sec. (12.2-14.9) H 07/22/20 10:30 INR 1.27 (0.87-1.13) H 07/22/20 10:30 D-Dimer 1036.46 ng/mlDDU (0-234) H 07/18/20 08:56 Abnormal lab findings: Abnormal Labs 07/18/20 07/18/20 07/18/20 08:56 08:56 08:56 WBC 3.5 L RBC 2.51 L Hgb 8.0 L Hct 24.5 L MCV 98 H RDW 18.3 H Plt Count 58 L Lymph % (Auto) [place] % (Auto) 11.1 H Lymph # (Auto) [place] # (Auto) Seg Neutrophils % Seg Neuts % (Manual) Lymphocytes % (Manual) Nucleated RBC % Seg Neutrophils # Man Lymphocytes # (Manual) PT INR 1.18 H APTT D-Dimer ABG pH POC ABG pCO2 POC ABG pO2 ABG pO2 ABG HCO3 ABG Base Excess ABG Hemoglobin ABG Oxyhemoglobin ABG Potassium ABG Chloride ABG Glucose Oxyhemoglobin Carboxyhemoglobin Sodium 146 H Potassium 5.2 H Chloride 117.3 H Carbon Dioxide 21 L BUN 52 H Creatinine 3.1 H Glucose 118 H POC Glucose Calcium 8.1 L Phosphorus AST ALT Alkaline Phosphatase Lactate Dehydrogenase CK-MB (CK-2) CK-MB (CK-2) Rel Index Troponin T 0.057 H C-Reactive Protein NT-Pro-B Natriuret Pep Albumin HDL Cholesterol 67 H TSH Arterial Blood Glucose Arterial Blood Ionized Calcium Hepatitis C Antibody Crossmatch 07/18/20 07/18/20 07/18/20 08:56 08:56 08:56 WBC RBC Hgb Hct MCV RDW Plt Count Lymph % (Auto) [place] % (Auto) Lymph # (Auto) [place] # (Auto) Seg Neutrophils % Seg Neuts % (Manual) Lymphocytes % (Manual) Nucleated RBC % Seg Neutrophils # Man Lymphocytes # (Manual) PT INR APTT D-Dimer 1036.46 H ABG pH POC ABG pCO2 POC ABG pO2 ABG pO2 ABG HCO3 ABG Base Excess ABG Hemoglobin ABG Oxyhemoglobin ABG Potassium ABG Chloride ABG Glucose Oxyhemoglobin Carboxyhemoglobin Sodium Potassium Chloride Carbon Dioxide BUN Creatinine Glucose POC Glucose Calcium Phosphorus AST ALT Alkaline Phosphatase Lactate Dehydrogenase CK-MB (CK-2) CK-MB (CK-2) Rel Index Troponin T C-Reactive Protein NT-Pro-B Natriuret Pep 4777 H Albumin HDL Cholesterol TSH 5.520 H Arterial Blood Glucose Arterial Blood Ionized Calcium Hepatitis C Antibody Crossmatch 07/18/20 07/18/20 07/18/20 10:36 18:56 19:00 WBC RBC Hgb Hct MCV RDW Plt Count Lymph % (Auto) [place] % (Auto) Lymph # (Auto) [place] # (Auto) Seg Neutrophils % Seg Neuts % (Manual) Lymphocytes % (Manual) Nucleated RBC % Seg Neutrophils # Man Lymphocytes # (Manual) PT INR APTT D-Dimer ABG pH POC ABG pCO2 POC ABG pO2 ABG pO2 ABG HCO3 ABG Base Excess ABG Hemoglobin ABG Oxyhemoglobin ABG Potassium ABG Chloride ABG Glucose Oxyhemoglobin Carboxyhemoglobin Sodium Potassium Chloride Carbon Dioxide BUN Creatinine Glucose 101 H POC Glucose 66 L 63 L Calcium Phosphorus AST ALT Alkaline Phosphatase Lactate Dehydrogenase 212 H CK-MB (CK-2) CK-MB (CK-2) Rel Index Troponin T C-Reactive Protein 2.10 H NT-Pro-B Natriuret Pep Albumin HDL Cholesterol TSH Arterial Blood Glucose Arterial Blood Ionized Calcium Hepatitis C Antibody Crossmatch 07/19/20 07/19/20 07/19/20 06:00 06:00 16:26 WBC 3.9 L RBC 2.34 L Hgb 7.5 L Hct 23.1 L MCV 99 H RDW 18.6 H Plt Count 52 L Lymph % (Auto) [place] % (Auto) 9.4 H Lymph # (Auto) 1.0 L [place] # (Auto) Seg Neutrophils % Seg Neuts % (Manual) Lymphocytes % (Manual) Nucleated RBC % Seg Neutrophils # Man Lymphocytes # (Manual) PT INR APTT D-Dimer ABG pH POC ABG pCO2 POC ABG pO2 ABG pO2 ABG HCO3 ABG Base Excess ABG Hemoglobin ABG Oxyhemoglobin ABG Potassium ABG Chloride ABG Glucose Oxyhemoglobin Carboxyhemoglobin Sodium Potassium 5.3 H Chloride 115.8 H Carbon Dioxide BUN 52 H Creatinine 3.4 H Glucose 114 H POC Glucose 123 H Calcium 7.7 L Phosphorus AST 77 H ALT < 5 L Alkaline Phosphatase 678 H Lactate Dehydrogenase CK-MB (CK-2) CK-MB (CK-2) Rel Index Troponin T C-Reactive Protein NT-Pro-B Natriuret Pep Albumin 2.2 L HDL Cholesterol TSH Arterial Blood Glucose Arterial Blood Ionized Calcium Hepatitis C Antibody Crossmatch 07/19/20 07/20/20 07/20/20 21:20 08:25 08:25 WBC 3.6 L RBC 2.54 L Hgb 8.0 L Hct 24.6 L MCV 97 H RDW 18.0 H Plt Count 47 L Lymph % (Auto) [place] % (Auto) 9.8 H Lymph # (Auto) 0.9 L [place] # (Auto) Seg Neutrophils % Seg Neuts % (Manual) Lymphocytes % (Manual) Nucleated RBC % Seg Neutrophils # Man Lymphocytes # (Manual) PT INR APTT D-Dimer ABG pH POC ABG pCO2 POC ABG pO2 ABG pO2 ABG HCO3 ABG Base Excess ABG Hemoglobin ABG Oxyhemoglobin ABG Potassium ABG Chloride ABG Glucose Oxyhemoglobin Carboxyhemoglobin Sodium Potassium 5.4 H Chloride 115.8 H Carbon Dioxide BUN 56 H Creatinine 3.8 H Glucose 110 H POC Glucose 142 H Calcium 7.9 L Phosphorus AST ALT Alkaline Phosphatase Lactate Dehydrogenase CK-MB (CK-2) CK-MB (CK-2) Rel Index Troponin T C-Reactive Protein NT-Pro-B Natriuret Pep Albumin HDL Cholesterol TSH Arterial Blood Glucose Arterial Blood Ionized Calcium Hepatitis C Antibody Crossmatch 07/20/20 07/20/20 07/20/20 11:27 16:34 21:27 WBC RBC Hgb Hct MCV RDW Plt Count Lymph % (Auto) [place] % (Auto) Lymph # (Auto) [place] # (Auto) Seg Neutrophils % Seg Neuts % (Manual) Lymphocytes % (Manual) Nucleated RBC % Seg Neutrophils # Man Lymphocytes # (Manual) PT INR APTT D-Dimer ABG pH POC ABG pCO2 POC ABG pO2 ABG pO2 ABG HCO3 ABG Base Excess ABG Hemoglobin ABG Oxyhemoglobin ABG Potassium ABG Chloride ABG Glucose Oxyhemoglobin Carboxyhemoglobin Sodium Potassium Chloride Carbon Dioxide BUN Creatinine Glucose POC Glucose 136 H 186 H 175 H Calcium Phosphorus AST ALT Alkaline Phosphatase Lactate Dehydrogenase CK-MB (CK-2) CK-MB (CK-2) Rel Index Troponin T C-Reactive Protein NT-Pro-B Natriuret Pep Albumin HDL Cholesterol TSH Arterial Blood Glucose Arterial Blood Ionized Calcium Hepatitis C Antibody Crossmatch 07/21/20 07/22/20 07/22/20 10:31 07:25 10:30 WBC 3.8 L RBC 2.53 L Hgb 7.9 L Hct 24.7 L MCV 98 H RDW 18.7 H Plt Count 35 L Lymph % (Auto) [place] % (Auto) Lymph # (Auto) [place] # (Auto) Seg Neutrophils % Seg Neuts % (Manual) 92.0 H Lymphocytes % (Manual) 6.0 L Nucleated RBC % 13.0 H Seg Neutrophils # Man Lymphocytes # (Manual) 0.2 L PT INR APTT D-Dimer ABG pH POC ABG pCO2 POC ABG pO2 ABG pO2 ABG HCO3 ABG Base Excess ABG Hemoglobin ABG Oxyhemoglobin ABG Potassium ABG Chloride ABG Glucose Oxyhemoglobin Carboxyhemoglobin Sodium Potassium 5.3 H 5.6 H Chloride 115.0 H 115.1 H Carbon Dioxide 18 L BUN 59 H 61 H Creatinine 4.3 H 4.6 H Glucose 109 H POC Glucose Calcium 7.6 L 7.6 L Phosphorus AST ALT Alkaline Phosphatase Lactate Dehydrogenase CK-MB (CK-2) CK-MB (CK-2) Rel Index Troponin T C-Reactive Protein NT-Pro-B Natriuret Pep Albumin HDL Cholesterol TSH Arterial Blood Glucose Arterial Blood Ionized Calcium Hepatitis C Antibody Crossmatch 07/22/20 07/22/20 07/22/20 10:30 10:30 10:30 WBC RBC Hgb Hct MCV RDW Plt Count Lymph % (Auto) [place] % (Auto) Lymph # (Auto) [place] # (Auto) Seg Neutrophils % Seg Neuts % (Manual) Lymphocytes % (Manual) Nucleated RBC % Seg Neutrophils # Man Lymphocytes # (Manual) PT 15.9 H INR 1.27 H APTT 38.3 H D-Dimer ABG pH POC ABG pCO2 POC ABG pO2 ABG pO2 ABG HCO3 ABG Base Excess ABG Hemoglobin ABG Oxyhemoglobin ABG Potassium ABG Chloride ABG Glucose Oxyhemoglobin Carboxyhemoglobin Sodium 146 H Potassium 5.4 H Chloride 116.4 H Carbon Dioxide BUN 61 H Creatinine 4.6 H Glucose 115 H POC Glucose Calcium 7.5 L Phosphorus 5.80 H AST 66 H ALT < 5 L Alkaline Phosphatase 604 H Lactate Dehydrogenase CK-MB (CK-2) 10.9 H CK-MB (CK-2) Rel Index 16.2 H Troponin T 0.047 H C-Reactive Protein NT-Pro-B Natriuret Pep Albumin 2.1 L HDL Cholesterol TSH Arterial Blood Glucose Arterial Blood Ionized Calcium Hepatitis C Antibody Crossmatch 07/22/20 07/23/20 07/23/20 11:10 03:38 03:47 WBC RBC Hgb Hct MCV RDW Plt Count Lymph % (Auto) [place] % (Auto) Lymph # (Auto) [place] # (Auto) Seg Neutrophils % Seg Neuts % (Manual) Lymphocytes % (Manual) Nucleated RBC % Seg Neutrophils # Man Lymphocytes # (Manual) PT INR APTT D-Dimer ABG pH 7.203 L POC ABG pCO2 48.7 H 29.7 L POC ABG pO2 80.6 L 267.3 H ABG pO2 ABG HCO3 ABG Base Excess ABG Hemoglobin 8.6 L 8.2 L ABG Oxyhemoglobin 91.1 L 98.2 H ABG Potassium 5.4 H 5.4 H ABG Chloride 122.0 H 122.0 H ABG Glucose 105 H 101 H Oxyhemoglobin Carboxyhemoglobin 2.0 H Sodium Potassium Chloride Carbon Dioxide BUN Creatinine Glucose POC Glucose 65 L Calcium Phosphorus AST ALT Alkaline Phosphatase Lactate Dehydrogenase CK-MB (CK-2) CK-MB (CK-2) Rel Index Troponin T C-Reactive Protein NT-Pro-B Natriuret Pep Albumin HDL Cholesterol TSH Arterial Blood Glucose 105 H 101 H Arterial Blood Ionized Calcium 4.5 L 4.4 L Hepatitis C Antibody Crossmatch 07/23/20 07/23/20 07/23/20 06:05 06:05 06:27 WBC RBC 2.36 L Hgb 7.5 L Hct 22.7 L MCV 96 H RDW 18.9 H Plt Count 42 L Lymph % (Auto) [place] % (Auto) Lymph # (Auto) [place] # (Auto) Seg Neutrophils % Seg Neuts % (Manual) Lymphocytes % (Manual) Nucleated RBC % Seg Neutrophils # Man Lymphocytes # (Manual) PT INR APTT D-Dimer ABG pH POC ABG pCO2 POC ABG pO2 ABG pO2 ABG HCO3 ABG Base Excess ABG Hemoglobin ABG Oxyhemoglobin ABG Potassium ABG Chloride ABG Glucose Oxyhemoglobin Carboxyhemoglobin Sodium Potassium 5.6 H Chloride 114.1 H Carbon Dioxide 17 L BUN 62 H Creatinine 5.1 H Glucose 215 H POC Glucose 114 H Calcium 7.3 L Phosphorus AST ALT Alkaline Phosphatase Lactate Dehydrogenase CK-MB (CK-2) CK-MB (CK-2) Rel Index Troponin T C-Reactive Protein NT-Pro-B Natriuret Pep Albumin HDL Cholesterol TSH Arterial Blood Glucose Arterial Blood Ionized Calcium Hepatitis C Antibody Crossmatch 07/23/20 07/23/20 07/24/20 11:36 19:20 04:00 WBC RBC Hgb Hct MCV RDW Plt Count Lymph % (Auto) [place] % (Auto) Lymph # (Auto) [place] # (Auto) Seg Neutrophils % Seg Neuts % (Manual) Lymphocytes % (Manual) Nucleated RBC % Seg Neutrophils # Man Lymphocytes # (Manual) PT INR APTT D-Dimer ABG pH POC ABG pCO2 POC ABG pO2 ABG pO2 ABG HCO3 ABG Base Excess ABG Hemoglobin ABG Oxyhemoglobin ABG Potassium ABG Chloride ABG Glucose Oxyhemoglobin Carboxyhemoglobin Sodium Potassium Chloride 110.8 H Carbon Dioxide BUN 47 H Creatinine 4.4 H Glucose POC Glucose 66 L Calcium 7.3 L Phosphorus AST ALT Alkaline Phosphatase Lactate Dehydrogenase CK-MB (CK-2) CK-MB (CK-2) Rel Index Troponin T C-Reactive Protein NT-Pro-B Natriuret Pep Albumin HDL Cholesterol TSH Arterial Blood Glucose Arterial Blood Ionized Calcium Hepatitis C Antibody Reactive A Crossmatch 07/24/20 07/24/20 07/24/20 04:25 11:37 Unknown WBC RBC 2.36 L Hgb 7.5 L Hct 22.5 L MCV 95 H RDW 18.4 H Plt Count 38 L Lymph % (Auto) [place] % (Auto) Lymph # (Auto) [place] # (Auto) Seg Neutrophils % Seg Neuts % (Manual) Lymphocytes % (Manual) Nucleated RBC % Seg Neutrophils # Man Lymphocytes # (Manual) PT INR APTT D-Dimer ABG pH POC ABG pCO2 POC ABG pO2 64.8 L ABG pO2 ABG HCO3 ABG Base Excess ABG Hemoglobin 7.9 L ABG Oxyhemoglobin ABG Potassium ABG Chloride 114.0 H ABG Glucose Oxyhemoglobin Carboxyhemoglobin Sodium Potassium Chloride Carbon Dioxide BUN Creatinine Glucose POC Glucose 109 H Calcium Phosphorus AST ALT Alkaline Phosphatase Lactate Dehydrogenase CK-MB (CK-2) CK-MB (CK-2) Rel Index Troponin T C-Reactive Protein NT-Pro-B Natriuret Pep Albumin HDL Cholesterol TSH Arterial Blood Glucose Arterial Blood Ionized Calcium 4.2 L Hepatitis C Antibody Crossmatch 07/25/20 07/25/20 07/25/20 00:12 03:57 04:00 WBC RBC Hgb Hct MCV RDW Plt Count Lymph % (Auto) [place] % (Auto) Lymph # (Auto) [place] # (Auto) Seg Neutrophils % Seg Neuts % (Manual) Lymphocytes % (Manual) Nucleated RBC % Seg Neutrophils # Man Lymphocytes # (Manual) PT INR APTT D-Dimer ABG pH 7.497 H POC ABG pCO2 POC ABG pO2 62.7 L ABG pO2 ABG HCO3 ABG Base Excess ABG Hemoglobin 8.5 L ABG Oxyhemoglobin 90.1 L ABG Potassium ABG Chloride 110.0 H ABG Glucose 157 H Oxyhemoglobin Carboxyhemoglobin Sodium Potassium Chloride Carbon Dioxide BUN 38 H Creatinine 4.1 H Glucose 160 H POC Glucose 140 H Calcium 7.9 L Phosphorus AST ALT Alkaline Phosphatase Lactate Dehydrogenase CK-MB (CK-2) CK-MB (CK-2) Rel Index Troponin T C-Reactive Protein NT-Pro-B Natriuret Pep Albumin HDL Cholesterol TSH Arterial Blood Glucose 157 H Arterial Blood Ionized Calcium 4.3 L Hepatitis C Antibody Crossmatch 07/25/20 07/25/20 07/25/20 04:00 06:24 12:11 WBC RBC 2.48 L Hgb 7.7 L Hct 23.2 L MCV RDW 18.4 H Plt Count 44 L Lymph % (Auto) [place] % (Auto) 8.5 H Lymph # (Auto) [place] # (Auto) Seg Neutrophils % 76.7 H Seg Neuts % (Manual) Lymphocytes % (Manual) Nucleated RBC % Seg Neutrophils # Man Lymphocytes # (Manual) PT INR APTT D-Dimer ABG pH POC ABG pCO2 POC ABG pO2 ABG pO2 ABG HCO3 ABG Base Excess ABG Hemoglobin ABG Oxyhemoglobin ABG Potassium ABG Chloride ABG Glucose Oxyhemoglobin Carboxyhemoglobin Sodium Potassium Chloride Carbon Dioxide BUN Creatinine Glucose POC Glucose 155 H 205 H Calcium Phosphorus AST ALT Alkaline Phosphatase Lactate Dehydrogenase CK-MB (CK-2) CK-MB (CK-2) Rel Index Troponin T C-Reactive Protein NT-Pro-B Natriuret Pep Albumin HDL Cholesterol TSH Arterial Blood Glucose Arterial Blood Ionized Calcium Hepatitis C Antibody Crossmatch 07/25/20 07/26/20 07/26/20 17:41 00:18 03:54 WBC RBC Hgb Hct MCV RDW Plt Count Lymph % (Auto) [place] % (Auto) Lymph # (Auto) [place] # (Auto) Seg Neutrophils % Seg Neuts % (Manual) Lymphocytes % (Manual) Nucleated RBC % Seg Neutrophils # Man Lymphocytes # (Manual) PT INR APTT D-Dimer ABG pH 7.512 H POC ABG pCO2 POC ABG pO2 ABG pO2 121.2 H ABG HCO3 27.1 H ABG Base Excess 3.6 H ABG Hemoglobin < 5.1 L ABG Oxyhemoglobin ABG Potassium ABG Chloride ABG Glucose Oxyhemoglobin Carboxyhemoglobin Sodium Potassium Chloride Carbon Dioxide BUN Creatinine Glucose POC Glucose 227 H 198 H Calcium Phosphorus AST ALT Alkaline Phosphatase Lactate Dehydrogenase CK-MB (CK-2) CK-MB (CK-2) Rel Index Troponin T C-Reactive Protein NT-Pro-B Natriuret Pep Albumin HDL Cholesterol TSH Arterial Blood Glucose Arterial Blood Ionized Calcium Hepatitis C Antibody Crossmatch 07/26/20 07/26/20 07/26/20 06:31 07:00 12:09 WBC RBC 2.33 L Hgb 7.4 L Hct 21.6 L MCV RDW 18.0 H Plt Count 50 L Lymph % (Auto) 13.0 L [place] % (Auto) Lymph # (Auto) [place] # (Auto) Seg Neutrophils % 79.8 H Seg Neuts % (Manual) Lymphocytes % (Manual) Nucleated RBC % Seg Neutrophils # Man Lymphocytes # (Manual) PT INR APTT D-Dimer ABG pH POC ABG pCO2 POC ABG pO2 ABG pO2 ABG HCO3 ABG Base Excess ABG Hemoglobin ABG Oxyhemoglobin ABG Potassium ABG Chloride ABG Glucose Oxyhemoglobin Carboxyhemoglobin Sodium Potassium Chloride Carbon Dioxide BUN Creatinine Glucose POC Glucose 223 H 250 H Calcium Phosphorus AST ALT Alkaline Phosphatase Lactate Dehydrogenase CK-MB (CK-2) CK-MB (CK-2) Rel Index Troponin T C-Reactive Protein NT-Pro-B Natriuret Pep Albumin HDL Cholesterol TSH Arterial Blood Glucose Arterial Blood Ionized Calcium Hepatitis C Antibody Crossmatch 07/26/20 07/26/20 07/27/20 17:40 23:26 05:20 WBC RBC Hgb Hct MCV RDW Plt Count Lymph % (Auto) [place] % (Auto) Lymph # (Auto) [place] # (Auto) Seg Neutrophils % Seg Neuts % (Manual) Lymphocytes % (Manual) Nucleated RBC % Seg Neutrophils # Man Lymphocytes # (Manual) PT INR APTT D-Dimer ABG pH 7.520 H POC ABG pCO2 POC ABG pO2 ABG pO2 64.2 L ABG HCO3 26.8 H ABG Base Excess 3.7 H ABG Hemoglobin 7.2 L ABG Oxyhemoglobin ABG Potassium ABG Chloride ABG Glucose Oxyhemoglobin 93.2 L Carboxyhemoglobin Sodium Potassium Chloride Carbon Dioxide BUN Creatinine Glucose POC Glucose 226 H 176 H Calcium Phosphorus AST ALT Alkaline Phosphatase Lactate Dehydrogenase CK-MB (CK-2) CK-MB (CK-2) Rel Index Troponin T C-Reactive Protein NT-Pro-B Natriuret Pep Albumin HDL Cholesterol TSH Arterial Blood Glucose Arterial Blood Ionized Calcium Hepatitis C Antibody Crossmatch 07/27/20 07/27/20 07/27/20 05:42 06:36 06:36 WBC RBC 2.23 L Hgb 7.0 L Hct 20.7 L MCV RDW 18.4 H Plt Count 56 L Lymph % (Auto) [place] % (Auto) Lymph # (Auto) [place] # (Auto) Seg Neutrophils % Seg Neuts % (Manual) 88.0 H Lymphocytes % (Manual) 11.0 L Nucleated RBC % 2.0 H Seg Neutrophils # Man 8.9 H Lymphocytes # (Manual) 1.1 L PT INR APTT D-Dimer ABG pH POC ABG pCO2 POC ABG pO2 ABG pO2 ABG HCO3 ABG Base Excess ABG Hemoglobin ABG Oxyhemoglobin ABG Potassium ABG Chloride ABG Glucose Oxyhemoglobin Carboxyhemoglobin Sodium Potassium Chloride Carbon Dioxide BUN 43 H Creatinine 4.4 H Glucose 162 H POC Glucose 142 H Calcium 8.2 L Phosphorus AST ALT Alkaline Phosphatase Lactate Dehydrogenase CK-MB (CK-2) CK-MB (CK-2) Rel Index Troponin T C-Reactive Protein NT-Pro-B Natriuret Pep Albumin HDL Cholesterol TSH Arterial Blood Glucose Arterial Blood Ionized Calcium Hepatitis C Antibody Crossmatch 07/27/20 07/27/20 07/27/20 11:42 17:37 23:15 WBC RBC Hgb Hct MCV RDW Plt Count Lymph % (Auto) [place] % (Auto) Lymph # (Auto) [place] # (Auto) Seg Neutrophils % Seg Neuts % (Manual) Lymphocytes % (Manual) Nucleated RBC % Seg Neutrophils # Man Lymphocytes # (Manual) PT INR APTT D-Dimer ABG pH POC ABG pCO2 POC ABG pO2 ABG pO2 ABG HCO3 ABG Base Excess ABG Hemoglobin ABG Oxyhemoglobin ABG Potassium ABG Chloride ABG Glucose Oxyhemoglobin Carboxyhemoglobin Sodium Potassium Chloride Carbon Dioxide BUN Creatinine Glucose POC Glucose 134 H 169 H 173 H Calcium Phosphorus AST ALT Alkaline Phosphatase Lactate Dehydrogenase CK-MB (CK-2) CK-MB (CK-2) Rel Index Troponin T C-Reactive Protein NT-Pro-B Natriuret Pep Albumin HDL Cholesterol TSH Arterial Blood Glucose Arterial Blood Ionized Calcium Hepatitis C Antibody Crossmatch 07/28/20 07/28/20 07/28/20 04:00 05:14 10:15 WBC RBC 2.13 L Hgb 6.8 L Hct 19.9 L* MCV RDW 18.4 H Plt Count 55 L Lymph % (Auto) [place] % (Auto) 9.1 H Lymph # (Auto) [place] # (Auto) 0.9 H Seg Neutrophils % 74.5 H Seg Neuts % (Manual) Lymphocytes % (Manual) Nucleated RBC % Seg Neutrophils # Man Lymphocytes # (Manual) PT INR APTT D-Dimer ABG pH POC ABG pCO2 POC ABG pO2 ABG pO2 ABG HCO3 ABG Base Excess ABG Hemoglobin ABG Oxyhemoglobin ABG Potassium ABG Chloride ABG Glucose Oxyhemoglobin Carboxyhemoglobin Sodium Potassium Chloride Carbon Dioxide BUN Creatinine Glucose POC Glucose 169 H Calcium Phosphorus AST ALT Alkaline Phosphatase Lactate Dehydrogenase CK-MB (CK-2) CK-MB (CK-2) Rel Index Troponin T C-Reactive Protein NT-Pro-B Natriuret Pep Albumin HDL Cholesterol TSH Arterial Blood Glucose Arterial Blood Ionized Calcium Hepatitis C Antibody Crossmatch See Detail 07/28/20 07/28/20 07/28/20 11:32 17:28 23:58 WBC RBC Hgb Hct MCV RDW Plt Count Lymph % (Auto) [place] % (Auto) Lymph # (Auto) [place] # (Auto) Seg Neutrophils % Seg Neuts % (Manual) Lymphocytes % (Manual) Nucleated RBC % Seg Neutrophils # Man Lymphocytes # (Manual) PT INR APTT D-Dimer ABG pH POC ABG pCO2 POC ABG pO2 ABG pO2 ABG HCO3 ABG Base Excess ABG Hemoglobin ABG Oxyhemoglobin ABG Potassium ABG Chloride ABG Glucose Oxyhemoglobin Carboxyhemoglobin Sodium Potassium Chloride Carbon Dioxide BUN Creatinine Glucose POC Glucose 185 H 208 H 227 H Calcium Phosphorus AST ALT Alkaline Phosphatase Lactate Dehydrogenase CK-MB (CK-2) CK-MB (CK-2) Rel Index Troponin T C-Reactive Protein NT-Pro-B Natriuret Pep Albumin HDL Cholesterol TSH Arterial Blood Glucose Arterial Blood Ionized Calcium Hepatitis C Antibody Crossmatch 07/29/20 07/29/20 07/29/20 05:37 12:04 17:11 WBC RBC Hgb Hct MCV RDW Plt Count Lymph % (Auto) [place] % (Auto) Lymph # (Auto) [place] # (Auto) Seg Neutrophils % Seg Neuts % (Manual) Lymphocytes % (Manual) Nucleated RBC % Seg Neutrophils # Man Lymphocytes # (Manual) PT INR APTT D-Dimer ABG pH POC ABG pCO2 POC ABG pO2 ABG pO2 ABG HCO3 ABG Base Excess ABG Hemoglobin ABG Oxyhemoglobin ABG Potassium ABG Chloride ABG Glucose Oxyhemoglobin Carboxyhemoglobin Sodium Potassium Chloride Carbon Dioxide BUN Creatinine Glucose POC Glucose 225 H 201 H 185 H Calcium Phosphorus AST ALT Alkaline Phosphatase Lactate Dehydrogenase CK-MB (CK-2) CK-MB (CK-2) Rel Index Troponin T C-Reactive Protein NT-Pro-B Natriuret Pep Albumin HDL Cholesterol TSH Arterial Blood Glucose Arterial Blood Ionized Calcium Hepatitis C Antibody Crossmatch 07/29/20 07/30/20 07/30/20 23:48 05:38 09:05 WBC RBC 2.49 L Hgb 7.7 L Hct 23.1 L MCV RDW 20.5 H Plt Count 54 L Lymph % (Auto) [place] % (Auto) Lymph # (Auto) [place] # (Auto) Seg Neutrophils % Seg Neuts % (Manual) Lymphocytes % (Manual) Nucleated RBC % Seg Neutrophils # Man Lymphocytes # (Manual) PT INR APTT D-Dimer ABG pH POC ABG pCO2 POC ABG pO2 ABG pO2 ABG HCO3 ABG Base Excess ABG Hemoglobin ABG Oxyhemoglobin ABG Potassium ABG Chloride ABG Glucose Oxyhemoglobin Carboxyhemoglobin Sodium Potassium Chloride Carbon Dioxide BUN Creatinine Glucose POC Glucose 209 H 205 H Calcium Phosphorus AST ALT Alkaline Phosphatase Lactate Dehydrogenase CK-MB (CK-2) CK-MB (CK-2) Rel Index Troponin T C-Reactive Protein NT-Pro-B Natriuret Pep Albumin HDL Cholesterol TSH Arterial Blood Glucose Arterial Blood Ionized Calcium Hepatitis C Antibody Crossmatch 07/30/20 07/30/20 07/30/20 09:05 11:42 17:46 WBC RBC Hgb Hct MCV RDW Plt Count Lymph % (Auto) [place] % (Auto) Lymph # (Auto) [place] # (Auto) Seg Neutrophils % Seg Neuts % (Manual) Lymphocytes % (Manual) Nucleated RBC % Seg Neutrophils # Man Lymphocytes # (Manual) PT INR APTT D-Dimer ABG pH POC ABG pCO2 POC ABG pO2 ABG pO2 ABG HCO3 ABG Base Excess ABG Hemoglobin ABG Oxyhemoglobin ABG Potassium ABG Chloride ABG Glucose Oxyhemoglobin Carboxyhemoglobin Sodium 135 L Potassium Chloride Carbon Dioxide BUN 52 H Creatinine 4.1 H Glucose 236 H POC Glucose 224 H 195 H Calcium Phosphorus AST ALT Alkaline Phosphatase Lactate Dehydrogenase CK-MB (CK-2) CK-MB (CK-2) Rel Index Troponin T C-Reactive Protein NT-Pro-B Natriuret Pep Albumin HDL Cholesterol TSH Arterial Blood Glucose Arterial Blood Ionized Calcium Hepatitis C Antibody Crossmatch 07/30/20 07/30/20 07/31/20 21:09 23:45 05:10 WBC RBC 2.46 L Hgb 7.6 L Hct 22.6 L MCV RDW 19.4 H Plt Count 77 L Lymph % (Auto) [place] % (Auto) Lymph # (Auto) [place] # (Auto) Seg Neutrophils % Seg Neuts % (Manual) Lymphocytes % (Manual) Nucleated RBC % Seg Neutrophils # Man Lymphocytes # (Manual) PT INR APTT D-Dimer ABG pH POC ABG pCO2 POC ABG pO2 ABG pO2 ABG HCO3 ABG Base Excess ABG Hemoglobin ABG Oxyhemoglobin ABG Potassium ABG Chloride ABG Glucose Oxyhemoglobin Carboxyhemoglobin Sodium Potassium Chloride Carbon Dioxide BUN Creatinine Glucose POC Glucose 153 H 185 H Calcium Phosphorus AST ALT Alkaline Phosphatase Lactate Dehydrogenase CK-MB (CK-2) CK-MB (CK-2) Rel Index Troponin T C-Reactive Protein NT-Pro-B Natriuret Pep Albumin HDL Cholesterol TSH Arterial Blood Glucose Arterial Blood Ionized Calcium Hepatitis C Antibody Crossmatch 07/31/20 07/31/20 07/31/20 05:17 11:48 17:20 WBC RBC Hgb Hct MCV RDW Plt Count Lymph % (Auto) [place] % (Auto) Lymph # (Auto) [place] # (Auto) Seg Neutrophils % Seg Neuts % (Manual) Lymphocytes % (Manual) Nucleated RBC % Seg Neutrophils # Man Lymphocytes # (Manual) PT INR APTT D-Dimer ABG pH POC ABG pCO2 POC ABG pO2 ABG pO2 ABG HCO3 ABG Base Excess ABG Hemoglobin ABG Oxyhemoglobin ABG Potassium ABG Chloride ABG Glucose Oxyhemoglobin Carboxyhemoglobin Sodium Potassium Chloride Carbon Dioxide BUN Creatinine Glucose POC Glucose 163 H 144 H 133 H Calcium Phosphorus AST ALT Alkaline Phosphatase Lactate Dehydrogenase CK-MB (CK-2) CK-MB (CK-2) Rel Index Troponin T C-Reactive Protein NT-Pro-B Natriuret Pep Albumin HDL Cholesterol TSH Arterial Blood Glucose Arterial Blood Ionized Calcium Hepatitis C Antibody Crossmatch 07/31/20 08/01/20 08/01/20 23:04 05:22 05:22 WBC RBC 2.26 L Hgb 7.0 L Hct 21.0 L MCV RDW 19.6 H Plt Count 85 L Lymph % (Auto) [place] % (Auto) Lymph # (Auto) [place] # (Auto) Seg Neutrophils % Seg Neuts % (Manual) Lymphocytes % (Manual) Nucleated RBC % Seg Neutrophils # Man Lymphocytes # (Manual) PT INR APTT D-Dimer ABG pH POC ABG pCO2 POC ABG pO2 ABG pO2 ABG HCO3 ABG Base Excess ABG Hemoglobin ABG Oxyhemoglobin ABG Potassium ABG Chloride ABG Glucose Oxyhemoglobin Carboxyhemoglobin Sodium 133 L Potassium Chloride Carbon Dioxide BUN 57 H Creatinine 4.4 H Glucose 166 H POC Glucose 140 H Calcium 7.8 L Phosphorus 5.10 H AST ALT Alkaline Phosphatase Lactate Dehydrogenase CK-MB (CK-2) CK-MB (CK-2) Rel Index Troponin T C-Reactive Protein NT-Pro-B Natriuret Pep Albumin HDL Cholesterol TSH Arterial Blood Glucose Arterial Blood Ionized Calcium Hepatitis C Antibody Crossmatch 08/01/20 08/01/20 08/01/20 05:49 11:18 17:33 WBC RBC Hgb Hct MCV RDW Plt Count Lymph % (Auto) [place] % (Auto) Lymph # (Auto) [place] # (Auto) Seg Neutrophils % Seg Neuts % (Manual) Lymphocytes % (Manual) Nucleated RBC % Seg Neutrophils # Man Lymphocytes # (Manual) PT INR APTT D-Dimer ABG pH POC ABG pCO2 POC ABG pO2 ABG pO2 ABG HCO3 ABG Base Excess ABG Hemoglobin ABG Oxyhemoglobin ABG Potassium ABG Chloride ABG Glucose Oxyhemoglobin Carboxyhemoglobin Sodium Potassium Chloride Carbon Dioxide BUN Creatinine Glucose POC Glucose 154 H 128 H 133 H Calcium Phosphorus AST ALT Alkaline Phosphatase Lactate Dehydrogenase CK-MB (CK-2) CK-MB (CK-2) Rel Index Troponin T C-Reactive Protein NT-Pro-B Natriuret Pep Albumin HDL Cholesterol TSH Arterial Blood Glucose Arterial Blood Ionized Calcium Hepatitis C Antibody Crossmatch 08/01/20 08/02/20 21:32 05:25 WBC RBC 2.14 L Hgb 6.7 L Hct 20.0 L MCV RDW 19.4 H Plt Count 104 L Lymph % (Auto) [place] % (Auto) Lymph # (Auto) [place] # (Auto) Seg Neutrophils % Seg Neuts % (Manual) Lymphocytes % (Manual) Nucleated RBC % Seg Neutrophils # Man Lymphocytes # (Manual) PT INR APTT D-Dimer ABG pH POC ABG pCO2 POC ABG pO2 ABG pO2 ABG HCO3 ABG Base Excess ABG Hemoglobin ABG Oxyhemoglobin ABG Potassium ABG Chloride ABG Glucose Oxyhemoglobin Carboxyhemoglobin Sodium Potassium Chloride Carbon Dioxide BUN Creatinine Glucose POC Glucose 139 H Calcium Phosphorus AST ALT Alkaline Phosphatase Lactate Dehydrogenase CK-MB (CK-2) CK-MB (CK-2) Rel Index Troponin T C-Reactive Protein NT-Pro-B Natriuret Pep Albumin HDL Cholesterol TSH Arterial Blood Glucose Arterial Blood Ionized Calcium Hepatitis C Antibody Crossmatch Allied health notes reviewed: nursing
[2020-08-02] MEDS ORDERED: LORazepam 2 MG/ML VIAL IV ONE ×2 (10:45→14:00)
[2020-08-02] MEDS: ASPIRIN 81 MG TAB CHEW PO SCH (10:45)
[2020-08-02] MEDS: INSULIN LISPRO 100 UNIT/ML SUB-Q SCH ×2 (12:59→18:10)
[2020-08-02] MEDS: hydrALAZINE 25 MG TAB PO SCH ×2 (14:00→22:27)
--- NOTE | 2020-08-02 15:30 | Progress Note ---
Assessment and Plan Assessment and plan: -Acute on chronic kidney disease stage III; Nephrology consulted, appreciate recommendations Vasomotor nephropathy, Nephrology initiated hemodialysis Management per nephrology, HD per schedule -Acute hypoxic respiratory failure Intubated 07/22/2020 s/p respiratory arrest CCM consulted, appreciate recommendations VAP bundle, wean as tolerated -Non-STEMI type II Likely secondary to respiratory failure, CKD Cardiology consulted, appreciate recommendations -Hyponatremia Electrolyte correction with HD -Acute toxic metabolic encephalopathy; CT head without contrast, no acute abnormality Neurology consulted, appreciate recommendations EEG findings compatible with sleep wake cycle 08/02 repeat EEG pending, MRI brain pending -Severe protein calorie malnutrition/hypoalbuminemia, nutrition supplements, tube feeding, nutrition consult -Thrombocytopenia HIT antibodies negative Trend CBC -Hypothermia Symptomatic treatment s/p antibiotics -h/o right calf abscess -h/o MSSA sepsis Infectious disease consulted, appreciate recommendations s/p Unasyn, completed 07/24 -Type 2 diabetes mellitus Blood sugars in the lower range, avoid hypoglycemia Accu-Chek sliding scale coverage ADA diet Long-acting insulin as needed, check HbA1c 8.3 last month -Acute on chronic systolic CHF EF 35 to 40% [04/2020] Continue antifailure medications Cardiology consulted, appreciate recommendations -History of seizure disorder Seizure precautions, continue Keppra -History of CVA; with residual weakness Fall precautions, PT OT as needed -DVT prophylaxis: thrombocytopenia, no anticoagulation. Continue SCDs -GI prophylaxis: PPI Dispo: ICU The high probability of a clinically significant, sudden or life threatening deterioration of the [multi] system(s) required my full and direct attention, intervention and personal management. The aggregate critical care time was [35] minutes. This time is in addition to time spent performing reported procedures but includes the following: [x] Data Review and interpretation [x] Patient assessment and monitoring of vital signs [x] Documentation [x] Medication orders and management History Interval history: This is 65-year-old male with diabetes mellitus, chronic kidney disease, CVA with residual weakness admitted to the hospitalist service with altered level consciousness and unresponsiveness. Patient started to be in sepsis secondary to MSSA bacteremia long-term antibiotics and his renal function progressively deteriorated. Patient initially refused outpatient dialysis then went into respiratory arrest requiring intubation and mechanical ventilation and was transferred to ICU. Patient family gave consent for hemodialysis and the patient remains intubated in the ICU. [facility], nephrology, cardiology and vascular surgery were consulted for care. Sepsis Acute on chronic kidney disease stage III Acute hypoxic respiratory failure NSTEMI type II Hyponatremia Acute toxic metabolic encephalopathy Severe protein calorie malnutrition/hypoalbuminemia Thrombocytopenia Anemia of chronic disease MSSA sepsis Type 2 diabetes mellitus Acute on chronic systolic congestive heart failure, EF 30 to 45% Seizure disorder CVA 07/19/2020; unable to pass Ayala catheter, consulted urology, continue supportive care, COVID-19 test negative 07/20/2020; urology evaluation recommendation noted and appreciated. Ayala catheter was inserted by urology, draining well, MSSA bacteremia on long-term antibiotics 07/21/2020; patient is lethargic, CT head without contrast, no acute abnormality, Patient is afebrile 07/22/2020; patient had acute respiratory failure this morning. JEFFERY IBARRA was called, patient was intubated on ventilatory support, pulmonary critical consulted, family patients aunt informed 07/23/2020; patient has severe bradycardia this morning, received atropine, Cardiology following. Beta-blockers held, electrolytes corrected. Patient's heart rate improved to 50s and 60s Cardiology following. Nephrology planning hemodialysis trying to get consent from family 07/24/2020; patient received hemodialysis yesterday. Remains intubated on ventilatory support. Bradycardia significantly improved heart rate in 60s. Completed 6 weeks of Unasyn for MSSA sepsis today 07/25/2020; patient remains on ventilatory support. Receiving HD per schedule dual. Wean as tolerated and extubate 07/26/2020; patient remains on ventilatory support, wean as tolerated and extubate. Initiated hemodialysis, HD per schedule, new set of blood culture sent 07/30: No acute events reported overnight. Patient remains unresponsive without sedation in the CT head was obtained which showed interval development of extensive hypoattenuation in the cerebral white matter, corpus callosum, globus thalami and probable indented nuclei finding likely test of global hypoxic ischemic injury with no acute hemorrhage or mass-effect. We consulted neurology and ordered an EEG for further work-up. no acute events reported overnight. He remains on MV. 07/31: PSV trials, HD per renal, bear hugger in place is unable to obtain temperature. Neurology consult and EEG pending. No acute events reported overnight. No acute events reported overnight. 08/01: This morning patient still has his giuseppe hugger in place, remains hyponatremic and hypokalemic and hypophosphatemic. Patient's H/H is 11/28. Patient remains on CMV 450-12-6/0.25 at the time of examination. Patient's CT head showed hypoxia/ischemic brain injury however his EEG was interpreted as normal awake and sleep pattern. Patient was given a trial dose of Narcan for CCM without improvement. Will order repeat EEG per neurology. No acute events reported overnight. 08/02: Patient had a repeat EEG which showed depressed activity and an MRI brain is pending. Patient's H/H is 6.7 and we will transfuse PRBC with HD to avoid volume overload. At the time of my examination patient was on CMV 450/12/6/0.25. Patient was given 1 mg Ativan for relaxation to better assess source of bloody secretions in mouth. Hospitalist Physical - Constitutional Vitals: Temp Pulse Resp BP Pulse Ox 98.8 F 91 H 22 132/69 100 08/02/20 14:30 08/02/20 15:21 08/02/20 14:30 08/02/20 15:21 08/02/20 15:21 General appearance: Present: no acute distress, well-nourished - EENT Eyes: Present: PERRL ENT: ulcerations - Neck Neck: Absent: masses or JVD, carotid bruits - Respiratory Respiratory effort: normal Respiratory: bilateral: diminished - Cardiovascular Rhythm: regular Heart Sounds: Present: S1 & S2. Absent: systolic murmur, diastolic murmur - Extremities Extremities: no ischemia, pulses intact, pulses symmetrical Extremity abnormal: edema Peripheral Pulses: within normal limits - Abdominal General gastrointestinal: soft, non-tender, non-distended, normal bowel sounds - Integumentary Integumentary: Present: warm, dry - Psychiatric Psychiatric: other (Minimally respond to painful stimuli) - Neurologic Neurologic: other (Minimally responsive to painful stimuli) - Allied Health Allied health notes reviewed: nursing, RT, social work HEART Score - HEART Score Troponin: Troponin T 0.047 ng/mL (0.00-0.029) H 07/22/20 10:30 Results - Labs CBC & Chem 7: 08/02/20 05:25 08/01/20 05:22 Labs: Laboratory Last Values WBC 9.9 K/mm3 (4.5-11.0) 08/02/20 05:25 RBC 2.14 M/mm3 (3.65-5.03) L 08/02/20 05:25 Hgb 6.7 gm/dl (11.8-15.2) L 08/02/20 05:25 Hct 20.0 % (35.5-45.6) L 08/02/20 05:25 MCV 93 fl (84-94) 08/02/20 05:25 MCH 31 pg (28-32) 08/02/20 05:25 MCHC 33 % (32-34) 08/02/20 05:25 RDW 19.4 % (13.2-15.2) H 08/02/20 05:25 Plt Count 104 K/mm3 (140-440) L 08/02/20 05:25 Lymph % (Auto) 15.7 % (13.4-35.0) 07/28/20 04:00 [place] % (Auto) 9.1 % (0.0-7.3) H 07/28/20 04:00 Eos % (Auto) 0.4 % (0.0-4.3) 07/28/20 04:00 Baso % (Auto) 0.3 % (0.0-1.8) 07/28/20 04:00 Lymph # (Auto) 1.6 K/mm3 (1.2-5.4) 07/28/20 04:00 [place] # (Auto) 0.9 K/mm3 (0.0-0.8) H 07/28/20 04:00 Eos # (Auto) 0.0 K/mm3 (0.0-0.4) 07/28/20 04:00 Baso # (Auto) 0.0 K/mm3 (0.0-0.1) 07/28/20 04:00 Add Manual Diff Complete 07/27/20 06:36 Total Counted 100 07/27/20 06:36 Seg Neutrophils % 74.5 % (40.0-70.0) H 07/28/20 04:00 Seg Neuts % (Manual) 88.0 % (40.0-70.0) H 07/27/20 06:36 Lymphocytes % (Manual) 11.0 % (13.4-35.0) L 07/27/20 06:36 Monocytes % (Manual) 1.0 % (0.0-7.3) 07/27/20 06:36 Nucleated RBC % 2.0 % (0.0-0.9) H 07/27/20 06:36 Seg Neutrophils # 7.7 K/mm3 (1.8-7.7) 07/28/20 04:00 Seg Neutrophils # Man 8.9 K/mm3 (1.8-7.7) H 07/27/20 06:36 Band Neutrophils # 0.0 K/mm3 07/27/20 06:36 Lymphocytes # (Manual) 1.1 K/mm3 (1.2-5.4) L 07/27/20 06:36 Abs React Lymphs (Man) 0.0 K/mm3 07/27/20 06:36 Monocytes # (Manual) 0.1 K/mm3 (0.0-0.8) 07/27/20 06:36 Eosinophils # (Manual) 0.0 K/mm3 (0.0-0.4) 07/27/20 06:36 Basophils # (Manual) 0.0 K/mm3 (0.0-0.1) 07/27/20 06:36 Metamyelocytes # 0.0 K/mm3 07/27/20 06:36 Myelocytes # 0.0 K/mm3 07/27/20 06:36 Promyelocytes # 0.0 K/mm3 07/27/20 06:36 Blast Cells # 0.0 K/mm3 07/27/20 06:36 WBC Morphology Not Reportable 07/27/20 06:36 Hypersegmented Neuts Not Reportable 07/27/20 06:36 Hyposegmented Neuts Not Reportable 07/27/20 06:36 Hypogranular Neuts Not Reportable 07/27/20 06:36 Smudge Cells Not Reportable 07/27/20 06:36 Toxic Granulation Not Reportable 07/27/20 06:36 Toxic Vacuolation Not Reportable 07/27/20 06:36 Dohle Bodies Not Reportable 07/27/20 06:36 Pelger-Huet Anomaly Not Reportable 07/27/20 06:36 Clint Rods Not Reportable 07/27/20 06:36 Platelet Estimate Consistent w auto 07/27/20 06:36 Clumped Platelets Not Reportable 07/27/20 06:36 Plt Clumps, EDTA Not Reportable 07/27/20 06:36 Large Platelets Not Reportable 07/27/20 06:36 Giant Platelets Not Reportable 07/27/20 06:36 Platelet Satelliting Not Reportable 07/27/20 06:36 Plt Morphology Comment Not Reportable 07/27/20 06:36 RBC Morphology Not Reportable 07/27/20 06:36 Dimorphic RBCs Not Reportable 07/27/20 06:36 Polychromasia Not Reportable 07/27/20 06:36 Hypochromasia Not Reportable 07/27/20 06:36 Poikilocytosis Not Reportable 07/27/20 06:36 Anisocytosis Few 07/27/20 06:36 Microcytosis Not Reportable 07/27/20 06:36 Macrocytosis Not Reportable 07/27/20 06:36 Spherocytes Not Reportable 07/27/20 06:36 Pappenheimer Bodies Not Reportable 07/27/20 06:36 Sickle Cells Not Reportable 07/27/20 06:36 Target Cells Not Reportable 07/27/20 06:36 Tear Drop Cells Not Reportable 07/27/20 06:36 Ovalocytes Not Reportable 07/27/20 06:36 Helmet Cells Not Reportable 07/27/20 06:36 Hannah-Kennan Bodies Not Reportable 07/27/20 06:36 [place] Rings Not Reportable 07/27/20 06:36 Bejou Cells Not Reportable 07/27/20 06:36 Bite Cells Not Reportable 07/27/20 06:36 Crenated Cell Not Reportable 07/27/20 06:36 Elliptocytes Not Reportable 07/27/20 06:36 Acanthocytes (Spur) Not Reportable 07/27/20 06:36 Rouleaux Not Reportable 07/27/20 06:36 Hemoglobin C Crystals Not Reportable 07/27/20 06:36 Schistocytes Rare 07/27/20 06:36 Malaria parasites Not Reportable 07/27/20 06:36 Carl Bodies Not Reportable 07/27/20 06:36 Hem Pathologist Commnt No 07/27/20 06:36 PT 15.9 Sec. (12.2-14.9) H 07/22/20 10:30 INR 1.27 (0.87-1.13) H 07/22/20 10:30 APTT 38.3 Sec. (24.2-36.6) H 07/22/20 10:30 D-Dimer 1036.46 ng/mlDDU (0-234) H 07/18/20 08:56 Heparin Anti-Xa, Unfract Negative (Negative) 07/23/20 08:54 ABG pH 7.520 pH Units (7.350-7.450) H 07/27/20 05:20 POC ABG pCO2 32.7 mmHg (32.0-48.0) 07/25/20 03:57 ABG pCO2 33.5 mm Hg 07/27/20 05:20 POC ABG pO2 62.7 mmHg (83-108) L 07/25/20 03:57 ABG pO2 64.2 mm Hg (80.0-90.0) L 07/27/20 05:20 POC ABG HCO3 24.8 07/25/20 03:57 ABG HCO3 26.8 mmol/L (20.0-26.0) H 07/27/20 05:20 ABG O2 Saturation 95.8 % (95.0-99.0) 07/27/20 05:20 ABG O2 Content 9.5 (0.0-44) 07/27/20 05:20 POC ABG Base Excess 1.7 07/25/20 03:57 ABG Base Excess 3.7 mmol/L (-2.0-3.0) H 07/27/20 05:20 ABG Hemoglobin 7.2 gm/dl (14.0-18.0) L 07/27/20 05:20 ABG Oxyhemoglobin 90.1 (94-98) L 07/25/20 03:57 ABG Carboxyhemoglobin 2.3 % (0.0-5.0) 07/27/20 05:20 ABG Methemoglobin 0.5 % (0.0-1.5) 07/27/20 05:20 ABG Sodium 138.7 mmol/L (136.0-145.0) 07/25/20 03:57 ABG Potassium 4.0 mmol/L (3.40-4.50) 07/25/20 03:57 ABG Chloride 110.0 mmol/L (98-107) H 07/25/20 03:57 ABG Glucose 157 mg/dL (65-95) H 07/25/20 03:57 Oxyhemoglobin 93.2 % (95.0-99.0) L 07/27/20 05:20 Carboxyhemoglobin 1.1 (0.5-1.5) 07/25/20 03:57 FiO2 25 % 07/27/20 05:20 FiO2 % 40 07/25/20 03:57 Sodium 133 mmol/L (137-145) L 08/01/20 05:22 Potassium 4.0 mmol/L (3.6-5.0) 08/01/20 05:22 Chloride 98.4 mmol/L (98-107) 08/01/20 05:22 Carbon Dioxide 26 mmol/L (22-30) 08/01/20 05:22 Anion Gap 13 mmol/L 08/01/20 05:22 BUN 57 mg/dL (9-20) H 08/01/20 05:22 Creatinine 4.4 mg/dL (0.8-1.3) H 08/01/20 05:22 Estimated GFR 17 ml/min 08/01/20 05:22 BUN/Creatinine Ratio 13 % 08/01/20 05:22 Glucose 166 mg/dL (75-100) H 08/01/20 05:22 POC Glucose 102 mg/dL (70-105) 08/02/20 11:36 Lactic Acid 0.80 mmol/L (0.7-2.0) 07/18/20 08:56 Calcium 7.8 mg/dL (8.4-10.2) L 08/01/20 05:22 Phosphorus 5.10 mg/dL (2.5-4.5) H 08/01/20 05:22 Magnesium 2.00 mg/dL (1.7-2.3) 08/01/20 05:22 Ferritin 198.6 ng/mL (30.0-300.0) 07/18/20 10:36 Total Bilirubin 0.30 mg/dL (0.1-1.2) 07/22/20 10:30 Direct Bilirubin 0.2 mg/dL (0-0.2) 07/19/20 06:00 Indirect Bilirubin 0.2 mg/dL 07/19/20 06:00 AST 66 units/L (5-40) H 07/22/20 10:30 ALT < 5 units/L (7-56) L 07/22/20 10:30 Alkaline Phosphatase 604 units/L (35-129) H 07/22/20 10:30 Ammonia 41.0 umol/L (25-60) 07/18/20 08:56 Lactate Dehydrogenase 212 units/L (91-180) H 07/18/20 10:36 Total Creatine Kinase 67 units/L (55-170) 07/22/20 10:30 CK-MB (CK-2) 10.9 ng/mL (0.0-4.0) H 07/22/20 10:30 CK-MB (CK-2) Rel Index 16.2 (0-4) H 07/22/20 10:30 Troponin T 0.047 ng/mL (0.00-0.029) H 07/22/20 10:30 C-Reactive Protein 2.10 mg/dL (0.00-1.30) H 07/18/20 10:36 NT-Pro-B Natriuret Pep 4777 pg/mL (0-900) H 07/18/20 08:56 Total Protein 6.4 g/dL (6.3-8.2) 07/22/20 10:30 Albumin 2.1 g/dL (3.9-5) L 07/22/20 10:30 Albumin/Globulin Ratio 0.5 % 07/22/20 10:30 Triglycerides 65 mg/dL (2-149) 07/18/20 08:56 Cholesterol 157 mg/dL (50-199) 07/18/20 08:56 LDL Cholesterol Direct 95 mg/dL (50-130) 07/18/20 08:56 HDL Cholesterol 67 mg/dL (40-59) H 07/18/20 08:56 Cholesterol/HDL Ratio 2.34 % 07/18/20 08:56 Procalcitonin 0.10 ng/mL (<0.15) 07/18/20 10:36 TSH 5.520 mlU/mL (0.270-4.200) H 07/18/20 08:56 Free T4 0.84 ng/dL (0.76-1.46) 07/18/20 08:56 Arterial Blood Glucose 157 mg/dL (65-95) H 07/25/20 03:57 Arterial Blood Ionized Calcium 4.3 mg/dL (4.6-5.3) L 07/25/20 03:57 Random Vancomycin 11.5 ug/mL (0-40.0) 07/28/20 05:00 Heparin-induced Plt Ab Negative (Negative) 07/23/20 08:54 UF Heparin High Dose 0 % Release 07/23/20 08:54 MAGEN UFH Low Dose 0.1 0 % Release 07/23/20 08:54 MAGEN UFH Low Dose 0.5 0 % Release 07/23/20 08:54 Coronavirus (PCR) Negative (Negative) 07/18/20 12:07 Hepatitis A IgM Ab Non-reactive (NonReactive) 07/23/20 19:20 Hep Bs Antigen Non-reactive (Negative) 07/23/20 19:20 Hep B Core IgM Ab Non-reactive (NonReactive) 07/23/20 19:20 Hepatitis C Antibody Reactive (NonReactive) A 07/23/20 19:20 Blood Type A POSITIVE 07/28/20 10:15 Antibody Screen Negative 07/28/20 10:15 Crossmatch See Detail 07/28/20 10:15 Microbiology: Microbiology 07/31/20 10:06 Sputum - Expectorated Sputum Sputum Culture - Final Ayala/IV: Voiding Method Incontinent Active Medications - Current Medications Current Medications: Generic Name Dose Route Start Last Admin Trade Name Freq PRN Reason Stop Dose Admin Lipase/Protease/Amylase 1 each 07/23/20 14:17 Lipase 10,500/Protease 25,000/Amylase 43,750 (Units) Dr Shell FEEDTUBE PRN PRN For Clogged Feeding Tube Aspirin 81 mg 08/01/20 10:00 08/01/20 11:27 Aspirin 81 Mg Tab Chew PO 81 mg QDAY JODIE Administration Atropine Sulfate 1 mg 07/23/20 09:03 07/23/20 22:15 Atropine 0.1% (1 Mg/10 Ml) Cardiac Syringe IV 1 mg PRN PRN Administration Bradycardia Dextrose 50 ml 07/23/20 03:28 07/23/20 06:00 Dextrose 50% In Water (25gm) 50 Ml Syringe IV 50 ml Q30MIN PRN Administration Hypoglycemia Protocol Famotidine 20 mg 07/18/20 22:00 08/02/20 09:59 Famotidine 20 Mg Tab PO 20 mg DAILY JODIE Administration Folic Acid 1 mg 07/19/20 10:00 08/02/20 10:00 Folic Acid 1 Mg Tab PO 1 mg DAILY JODIE Administration Hydralazine HCl 50 mg 07/18/20 14:00 08/01/20 21:46 Hydralazine 25 Mg Tab PO 50 mg Q8HR JODIE Administration Hydralazine HCl 20 mg 07/22/20 14:02 Hydralazine 20 Mg/1 Ml Inj IV Q4HR PRN Blood Pressure Hydrophilic Ointment 1 applic 07/22/20 10:02 Lip Therapy Vaseline TP Q2HR PRN Dry Lips Norepinephrine 4 mg in 250 mls @ 7.5 mls/hr 07/24/20 10:00 07/24/20 15:35 Levophed Drip 4 Mg/Ns 250 Ml IV 0 mcg/min TITR JODIE 0 mls/hr Titration Protocol 2 MCG/MIN Sodium Chloride 100 mls @ 999 mls/hr 07/31/20 08:21 Nacl 0.9% IV FRANCISCO PRN Hypotension Insulin Glargine 10 units 07/30/20 22:00 08/01/20 21:47 Insulin Glargine 100 Units/Ml SUB-Q 10 units QHS [facility] Administration Insulin Human Lispro 0 unit 07/26/20 10:00 08/02/20 12:59 Insulin Lispro 100 Unit/Ml SUB-Q Not Given Q6HR [facility] Protocol Levetiracetam 750 mg 07/18/20 22:00 08/02/20 10:00 Levetiracetam 500 Mg/5 Ml Oral Liqd PO 750 mg BID JODIE Administration Multi-Ingred Cream/Lotion/Oil/Oint 1 applic 07/22/20 10:02 Mineral Oil/Petrolatum, White Ophth Oint 3.5 Gm OU Q4HR PRN Dry Eye(s) Scopolamine 1 each 07/31/20 10:00 07/31/20 11:00 Scopolamine Transdermal Patch 72 Hr TD 1 each Q3D JODIE Administration Simple Syrup 15 ml 07/23/20 14:17 Simple Syrup 15 Ml FEEDTUBE PRN PRN Hypoglycemia Simple Syrup 30 ml 07/23/20 14:17 Simple Syrup 15 Ml FEEDTUBE PRN PRN Hypoglycemia Sodium Bicarbonate 325 mg 07/23/20 14:17 Sodium Bicarbonate 325 Mg Tab FEEDTUBE PRN PRN For Clogged Feeding Tube Thiamine HCl 100 mg 07/19/20 10:00 08/02/20 10:00 Thiamine 100 Mg Tab PO 100 mg QDAY JODIE Administration Nutrition/Malnutrition Assess - Dietary Evaluation Nutrition/Malnutrition Findings: Nutrition Notes Start: 07/19/20 09:53 Freq: Status: Active Protocol: Document 08/01/20 12:07 LP (Rec: 08/01/20 12:13 LP [id number]) Nutrition Notes Initial or Follow up Reassessment Current Diagnosis CKD(stage I-IV),Diabetes, Sepsis,Heart Failure, Respiratory Failure,Stroke Other Pertinent Diagnosis On HD,Acute toxic metabolic encephalopathy, Bradycardia, ( R) LE wound, Current Diet Nepro 1.8 at 42 ml/hr Labs/Tests Na 133 BUN 57 Cr 4.4 BG 160 Phos 5.1 Pertinent Medications Reviewed Height 5 ft 9 in Weight 101.3 kg [place] Body Weight (kg) 72.72 BMI 33.0 Weight change and time frame Wt change noted on HD Weight Status Obese Subjective/Other Information Pt tolerating TF at goal. Observed TF with error message . Percent of energy/protein needs met: 99%/57% Burn Absent Trauma Absent Difficulty In Swallowing Skin Integrity/Comment Diabetic ulcers to BLE Current % PO Negligible Minimum of two criteria Yes Body Fat Depletion Mild depletion (non-severe) Muscle Mass Mild Depletion (non-severe) Fluid Accumulation Moderate to Severe (severe) #2 Nutrition Diagnosis Malnutrition Etiology Unknown As Evidenced by Signs and Symptoms Observed muscle and fat mass depletion, fluid accumulation #1 Nutrition Diagnosis Inadequate oral intake Diagnosis Progress(for reassessment Continues documentation) Is patient on ventilator? Yes Is Patient Ambulatory and/or Out of Bed No REE-([facility]-confined to bed) 2168.784 Kcal/Kg value to use for calculation 18 Approximate Energy Requirements Using 1823 kcal/Kg Calculation Used for Recommendations Kcal/kg Additional Notes Protein needs: >144g (>2.0 g/ kgIBW) Fluid needs 1000 - 1500 ml/day Nutrition Intervention Change Diet Order: TF Nutrition Support: Increase Nepro at 50 ml/h with a free water flush of 125 ml q4h. Kcal 2,160 Protein (gm) 97 Fluid (mL) 872 Add Supplement/Snack (indicate name/kcal Pawel BID /protein ) Provides kCal: 190 Provides Protein (gm) 5 Goal #1 TF tolerance Goal #2 Meet at estimated energy and protein needs as best as possible. Anticipated Discharge Needs: Unable to determine at this time Follow-Up By: 08/03/20 Additional Comments Follow for TF increase and Pawel start
--- NOTE | 2020-08-02 16:41 | Progress Note ---
Assessment and Plan - Patient Problems (1) Acute on chronic renal failure Current Visit: Yes Status: Acute Qualifiers: Acute renal failure type: unspecified Chronic kidney disease stage: stage 3 (moderate) Chronic kidney disease stage 3 subtype: stage 3a (GFR 45-59) Qualified Code(s): N17.9 - Acute kidney failure, unspecified; N18.31 - Chronic kidney disease, stage 3a Plan to address problem: Patient has likely underlying chronic kidney disease stage IIIb in the setting of hypertension and diabetes. With worsening renal failure and unresponsiveness to optimal IV diuretic regimen patient was started on hemodialysis therapy. We will adjust his schedule to Thursday with sequential ultrafiltration treatments for Thursday in order to optimize his volume status. We will continue to monitor for signs of renal function and recovery. Overall prognosis is guarded at this time and his neurologic status has not shown any improvement. CT of the head looks concerning for worsening hypoxic ischemic injury. Neurology evaluation reviewed and plan for EEG. (2) Anasarca Current Visit: Yes Status: Acute Plan to address problem: Patient unfortunately did not respond well to optimal IV diuretic regimen. Sec ondary to persistent edema and worsening renal failure he was started on hemodialysis therapy. (3) Anemia Current Visit: Yes Status: Chronic Qualifiers: Anemia type: unspecified type Qualified Code(s): D64.9 - Anemia, unspecified Plan to address problem: Transfuse to maintain hemoglobin above 7. (4) Hyperkalemia Current Visit: Yes Status: Acute Plan to address problem: Correct with hemodialysis. (5) Sepsis Current Visit: Yes Status: Suspected Qualifiers: Sepsis type: sepsis due to unspecified organism Sepsis acute organ dysfunction status: with acute organ dysfunction Severe sepsis acute organ dysfunction type: acute renal failure Acute renal failure type: unspecified Severe sepsis shock status: without septic shock Qualified Code(s): A41.9 - Sepsis, unspecified organism; R65.20 - Severe sepsis without septic shock; N17.9 - Acute kidney failure, unspecified Plan to address problem: Please ensure that antibiotics are dosed appropriate for his decreased renal function. Off pressor support at this time. 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 Unresponsive to optimal diuretic regimen and therefore was transitioned to hemodialysis. (7) Hypertensive chronic kidney disease with stage 1 through stage 4 chronic kidney disease, or unspecified chronic kidney disease Current Visit: No Status: Acute Plan to address problem: We will hold off on all blood pressure medication at this time giving his current hemodynamic status. (8) Type 2 diabetes mellitus with diabetic nephropathy Current Visit: No Status: Acute Plan to address problem: Diabetes managed per primary attending. Subjective Date of service: 08/02/20 Principal diagnosis: RACQUEL Interval history: patient seen this morning. Plan for dialysis today. Tolerated 3 L of ultrafiltration yesterday with hemodialysis treatment. Patient receiving sequential ultrafiltration today. Objective - Vital Signs Vital signs: Vital Signs - 12hr 08/02/20 08/02/20 08/02/20 05:00 05:30 06:00 Temperature Pulse Rate 79 78 81 Pulse Rate [ From Monitor] Respiratory 17 17 20 Rate Blood Pressure 124/66 113/61 124/69 O2 Sat by Pulse 100 95 96 Oximetry O2 Sat by Pulse Oximetry [ Anterior Bilateral Throughout] O2 Sat by Pulse Oximetry [ Anterior Right] 08/02/20 08/02/20 08/02/20 06:30 07:00 07:30 Temperature Pulse Rate 81 83 81 Pulse Rate [ From Monitor] Respiratory 19 19 19 Rate Blood Pressure 116/62 114/60 116/63 O2 Sat by Pulse 99 100 100 Oximetry O2 Sat by Pulse Oximetry [ Anterior Bilateral Throughout] O2 Sat by Pulse Oximetry [ Anterior Right] 08/02/20 08/02/20 08/02/20 08:00 08:30 08:39 Temperature 98.0 F Pulse Rate 83 82 82 Pulse Rate [ 84 From Monitor] Respiratory 20 19 Rate Blood Pressure 116/63 113/60 113/60 O2 Sat by Pulse 99 99 100 Oximetry O2 Sat by Pulse Oximetry [ Anterior Bilateral Throughout] O2 Sat by Pulse Oximetry [ Anterior Right] 08/02/20 08/02/20 08/02/20 09:00 09:30 10:00 Temperature Pulse Rate 87 87 91 H Pulse Rate [ From Monitor] Respiratory 20 20 20 Rate Blood Pressure 135/72 129/67 147/74 O2 Sat by Pulse 97 95 97 Oximetry O2 Sat by Pulse Oximetry [ Anterior Bilateral Throughout] O2 Sat by Pulse Oximetry [ Anterior Right] 08/02/20 08/02/20 08/02/20 10:30 11:00 11:30 Temperature Pulse Rate 94 H 89 92 H Pulse Rate [ From Monitor] Respiratory 20 20 21 Rate Blood Pressure 139/73 119/62 127/68 O2 Sat by Pulse 94 93 96 Oximetry O2 Sat by Pulse Oximetry [ Anterior Bilateral Throughout] O2 Sat by Pulse Oximetry [ Anterior Right] 08/02/20 08/02/20 08/02/20 11:35 12:00 12:30 Temperature Pulse Rate 87 86 88 Pulse Rate [ 86 From Monitor] Respiratory 20 19 20 Rate Blood Pressure 127/68 121/61 113/58 O2 Sat by Pulse 96 96 92 Oximetry O2 Sat by Pulse Oximetry [ Anterior Bilateral Throughout] O2 Sat by Pulse Oximetry [ Anterior Right] 08/02/20 08/02/20 08/02/20 13:00 13:30 14:00 Temperature Pulse Rate 89 88 84 Pulse Rate [ From Monitor] Respiratory 22 22 23 Rate Blood Pressure 120/60 118/61 121/60 O2 Sat by Pulse 90 92 88 Oximetry O2 Sat by Pulse Oximetry [ Anterior Bilateral Throughout] O2 Sat by Pulse Oximetry [ Anterior Right] 08/02/20 08/02/20 08/02/20 14:30 14:45 15:00 Temperature 98.8 F Pulse Rate 86 86 87 Pulse Rate [ From Monitor] Respiratory 22 20 Rate Blood Pressure 128/66 128/66 135/69 O2 Sat by Pulse 100 99 Oximetry O2 Sat by Pulse 100 Oximetry [ Anterior Bilateral Throughout] O2 Sat by Pulse 100 Oximetry [ Anterior Right] 08/02/20 08/02/20 08/02/20 15:15 15:21 15:30 Temperature Pulse Rate 90 91 H 89 Pulse Rate [ From Monitor] Respiratory 21 Rate Blood Pressure 132/69 132/69 129/69 O2 Sat by Pulse 100 100 Oximetry O2 Sat by Pulse Oximetry [ Anterior Bilateral Throughout] O2 Sat by Pulse Oximetry [ Anterior Right] 08/02/20 08/02/20 08/02/20 15:45 16:00 16:15 Temperature Pulse Rate 87 89 87 Pulse Rate [ 87 From Monitor] Respiratory 19 Rate Blood Pressure 130/68 132/70 130/67 O2 Sat by Pulse 100 Oximetry O2 Sat by Pulse Oximetry [ Anterior Bilateral Throughout] O2 Sat by Pulse Oximetry [ Anterior Right] 08/02/20 16:30 Temperature Pulse Rate 87 Pulse Rate [ From Monitor] Respiratory Rate Blood Pressure 133/69 O2 Sat by Pulse Oximetry O2 Sat by Pulse Oximetry [ Anterior Bilateral Throughout] O2 Sat by Pulse Oximetry [ Anterior Right] - General Appearance General appearance: chronically ill EENT: ATNC Neck: no JVD Respiratory: Present: Decreased Breath Sounds Cardiology: regular Integumentary: ulcer Musculoskeletal: deferred - Lab 08/02/20 05:25 08/01/20 05:22 Most recent lab results ABG pH 7.520 pH Units (7.350-7.450) H 07/27/20 05:20 ABG pCO2 33.5 mm Hg 07/27/20 05:20 ABG pO2 64.2 mm Hg (80.0-90.0) L 07/27/20 05:20 ABG HCO3 26.8 mmol/L (20.0-26.0) H 07/27/20 05:20 ABG O2 Saturation 95.8 % (95.0-99.0) 07/27/20 05:20 Calcium 7.8 mg/dL (8.4-10.2) L 08/01/20 05:22 Phosphorus 5.10 mg/dL (2.5-4.5) H 08/01/20 05:22 Magnesium 2.00 mg/dL (1.7-2.3) 08/01/20 05:22 - Allied health notes Allied health notes reviewed: nursing Medications & Allergies - Medications Allergies/Adverse Reactions: Allergies No Known Allergies Allergy (Verified 06/19/19 17:53) Home Medications: Home Medications Medication Instructions Recorded Confirmed Last Taken Type FLUoxetine [PROzac] 20 mg PO QDAY #14 capsule 06/23/19 06/21/20 Unknown Rx traZODone [Desyrel] 50 mg PO QHS #10 tablet 06/23/19 06/21/20 Unknown Rx Folic Acid 1 mg PO DAILY #30 tablet 06/25/19 06/21/20 Unknown Rx Nicotine [Habitrol] 14 mg TD DAILY #30 patch 06/25/19 06/21/20 Unknown Rx Thiamine [Vitamin B-1] 100 mg PO QDAY #30 tablet 06/25/19 06/21/20 Unknown Rx Aspirin EC [Halfprin EC] 81 mg PO QDAY #30 tablet. 07/26/19 06/21/20 Unknown Rx levETIRAcetam [Keppra TAB] 750 mg PO BID #60 tablet 07/26/19 06/21/20 Unknown Rx Furosemide [Lasix TAB] 40 mg PO QDAY #30 tablet 04/28/20 06/21/20 Unknown Rx Famotidine [Pepcid] 20 mg PO BID #60 tablet 07/05/20 Unknown Rx Insulin NPH, Human [NovoLIN N] 5 unit SUB-Q BIDDIAB 30 Days #10 ml 07/05/20 06/21/20 Unknown Rx amLODIPine 10 mg PO QDAY #30 tablet 07/05/20 Unknown Rx carvediloL [Coreg] 12.5 mg PO BID #60 tablet 07/05/20 Unknown Rx hydrALAZINE [Apresoline TAB] 50 mg PO Q8HR #30 tablet 07/06/20 Unknown Rx Active Medications: Generic Name Dose Route Start Last Admin Trade Name Freq PRN Reason Stop Dose Admin Lipase/Protease/Amylase 1 each 07/23/20 14:17 Lipase 10,500/Protease 25,000/Amylase 43,750 (Units) Dr Shell FEEDTUBE PRN PRN For Clogged Feeding Tube Aspirin 81 mg 08/01/20 10:00 08/01/20 11:27 Aspirin 81 Mg Tab Chew PO 81 mg QDAY JODIE Administration Atropine Sulfate 1 mg 07/23/20 09:03 07/23/20 22:15 Atropine 0.1% (1 Mg/10 Ml) Cardiac Syringe IV 1 mg PRN PRN Administration Bradycardia Dextrose 50 ml 07/23/20 03:28 07/23/20 06:00 Dextrose 50% In Water (25gm) 50 Ml Syringe IV 50 ml Q30MIN PRN Administration Hypoglycemia Protocol Famotidine 20 mg 07/18/20 22:00 08/02/20 09:59 Famotidine 20 Mg Tab PO 20 mg DAILY JODIE Administration Folic Acid 1 mg 07/19/20 10:00 08/02/20 10:00 Folic Acid 1 Mg Tab PO 1 mg DAILY JODIE Administration Hydralazine HCl 50 mg 07/18/20 14:00 08/02/20 14:00 Hydralazine 25 Mg Tab PO Not Given Q8HR JODIE Hydralazine HCl 20 mg 07/22/20 14:02 Hydralazine 20 Mg/1 Ml Inj IV Q4HR PRN Blood Pressure Hydrophilic Ointment 1 applic 07/22/20 10:02 Lip Therapy Vaseline TP Q2HR PRN Dry Lips Norepinephrine 4 mg in 250 mls @ 7.5 mls/hr 07/24/20 10:00 07/24/20 15:35 Levophed Drip 4 Mg/Ns 250 Ml IV 0 mcg/min TITR JODIE 0 mls/hr Titration Protocol 2 MCG/MIN Sodium Chloride 100 mls @ 999 mls/hr 07/31/20 08:21 Nacl 0.9% IV FRANCISCO PRN Hypotension Insulin Glargine 10 units 07/30/20 22:00 08/01/20 21:47 Insulin Glargine 100 Units/Ml SUB-Q 10 units QHS JODIE Administration Insulin Human Lispro 0 unit 07/26/20 10:00 08/02/20 12:59 Insulin Lispro 100 Unit/Ml SUB-Q Not Given Q6HR JODIE Protocol Levetiracetam 750 mg 07/18/20 22:00 08/02/20 10:00 Levetiracetam 500 Mg/5 Ml Oral Liqd PO 750 mg BID JODIE Administration Multi-Ingred Cream/Lotion/Oil/Oint 1 applic 07/22/20 10:02 Mineral Oil/Petrolatum, White Ophth Oint 3.5 Gm OU Q4HR PRN Dry Eye(s) Scopolamine 1 each 07/31/20 10:00 07/31/20 11:00 Scopolamine Transdermal Patch 72 Hr TD 1 each Q3D JODIE Administration Simple Syrup 15 ml 07/23/20 14:17 Simple Syrup 15 Ml FEEDTUBE PRN PRN Hypoglycemia Simple Syrup 30 ml 07/23/20 14:17 Simple Syrup 15 Ml FEEDTUBE PRN PRN Hypoglycemia Sodium Bicarbonate 325 mg 07/23/20 14:17 Sodium Bicarbonate 325 Mg Tab FEEDTUBE PRN PRN For Clogged Feeding Tube Thiamine HCl 100 mg 07/19/20 10:00 08/02/20 10:00 Thiamine 100 Mg Tab PO 100 mg QDAY JODIE Administration
--- NOTE | 2020-08-02 19:34 | XRay Report ---
ABDOMEN 1 VIEW(S) INDICATION: NGT placement COMPARISON: None available. FINDINGS: Nasogastric tube has tip in stomach Bowel gas pattern: Within normal limits. No dilated loops of large or small bowel. Free air: None. Calcified gallstones: None seen. Calcified urinary tract calculi: None seen. Additional Findings: None. Skeletal structures: No acute abnormality. IMPRESSION: 1. No acute findings. Signer Name: Ciro Kessler MD Signed: 08/02/2020 7:30 PM Workstation Name: [id number]
[2020-08-02] MEDS: INSULIN GLARGINE 100 UNITS/ML SUB-Q SCH (21:38)
[2020-08-03] MEDS ORDERED: LORazepam 2 MG/ML VIAL IV ONE (04:53)
[2020-08-03 05:31] LABS: Hematocrit 20.4 % (35.5-45.6); Hemoglobin 6.7 gm/dl (11.8-15.2); Mean Platelet Volume 8.5 fl (6-12); Red Blood Count 2.2 M/mm3 (3.65-5.03); Red Cell Distribution Width 18.8 % (13.2-15.2)
--- NOTE | 2020-08-03 06:17 | Progress Note ---
Assessment and Plan - Patient Problems (1) Acute on chronic renal failure Current Visit: Yes Status: Acute Qualifiers: Acute renal failure type: unspecified Chronic kidney disease stage: stage 3 (moderate) Chronic kidney disease stage 3 subtype: stage 3a (GFR 45-59) Qualified Code(s): N17.9 - Acute kidney failure, unspecified; N18.31 - Chronic kidney disease, stage 3a Plan to address problem: Patient has likely underlying chronic kidney disease stage IIIb in the setting of hypertension and diabetes. With worsening renal failure and unresponsiveness to optimal IV diuretic regimen patient was started on hemodialysis therapy. We will adjust his schedule to Thursday with sequential ultrafiltration treatments for Thursday in order to optimize his volume status. We will continue to monitor for signs of renal function and recovery. Overall prognosis is guarded at this time and his neurologic status has not shown any improvement. CT of the head looks concerning for worsening hypoxic ischemic injury. Neurology evaluation reviewed, pending MRI brain this am per staff. (2) Anasarca Current Visit: Yes Status: Acute Plan to address problem: Patient unfortunately did not respond well to optimal IV diuretic regimen. Secondary to persistent edema and worsening renal failure he was started on hemodialysis therapy. (3) Anemia Current Visit: Yes Status: Chronic Qualifiers: Anemia type: unspecified type Qualified Code(s): D64.9 - Anemia, unspecified Plan to address problem: Transfuse to maintain hemoglobin above 7. (4) Hyperkalemia Current Visit: Yes Status: Acute Plan to address problem: Correct with hemodialysis. (5) Sepsis Current Visit: Yes Status: Suspected Qualifiers: Sepsis type: sepsis due to unspecified organism Sepsis acute organ dysfunction status: with acute organ dysfunction Severe sepsis acute organ dysfunction type: acute renal failure Acute renal failure type: unspecified Severe sepsis shock status: without septic shock Qualified Code(s): A41.9 - Sepsis, unspecified organism; R65.20 - Severe sepsis without septic shock; N17.9 - Acute kidney failure, unspecified Plan to address problem: Please ensure that antibiotics are dosed appropriate for his decreased renal function. Off pressor support at this time. 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 Unresponsive to optimal diuretic regimen and therefore was transitioned to hemodialysis. (7) Hypertensive chronic kidney disease with stage 1 through stage 4 chronic kidney disease, or unspecified chronic kidney disease Current Visit: No Status: Acute Plan to address problem: We will hold off on all blood pressure medication at this time giving his current hemodynamic status. (8) Type 2 diabetes mellitus with diabetic nephropathy Current Visit: No Status: Acute Plan to address problem: Diabetes managed per primary attending. Subjective Date of service: 08/03/20 Principal diagnosis: RACQUEL Interval history: patient seen this morning. Plan for dialysis today. Tolerated 3 L of ultrafiltration yesterday with sequential UF treatment. Objective - Vital Signs Vital signs: Vital Signs - 12hr 08/02/20 08/02/20 08/02/20 18:22 18:30 19:00 Temperature 98.7 F Pulse Rate 93 H 95 H 92 H Respiratory 14 18 20 Rate Blood Pressure 168/90 156/86 148/81 O2 Sat by Pulse 100 100 Oximetry O2 Sat by Pulse 100 Oximetry [ Anterior Bilateral Throughout] 08/02/20 08/02/20 08/02/20 19:30 19:47 20:00 Temperature 99.1 F Pulse Rate 101 H 85 Respiratory 18 16 Rate Blood Pressure 159/94 184/89 O2 Sat by Pulse 100 100 Oximetry O2 Sat by Pulse Oximetry [ Anterior Bilateral Throughout] 08/02/20 08/02/20 08/02/20 20:31 21:00 21:16 Temperature Pulse Rate 88 80 82 Respiratory 16 16 Rate Blood Pressure 132/76 126/72 126/72 O2 Sat by Pulse 100 100 100 Oximetry O2 Sat by Pulse Oximetry [ Anterior Bilateral Throughout] 08/02/20 08/02/20 08/02/20 21:30 22:00 22:27 Temperature Pulse Rate 79 75 78 Respiratory 16 15 Rate Blood Pressure 135/77 129/75 129/75 O2 Sat by Pulse 100 100 Oximetry O2 Sat by Pulse Oximetry [ Anterior Bilateral Throughout] 08/02/20 08/02/20 08/02/20 22:30 23:00 23:30 Temperature Pulse Rate 80 80 81 Respiratory 15 15 14 Rate Blood Pressure 139/79 115/64 117/67 O2 Sat by Pulse 100 100 100 Oximetry O2 Sat by Pulse Oximetry [ Anterior Bilateral Throughout] 08/02/20 08/03/20 08/03/20 23:32 00:00 00:01 Temperature Pulse Rate 80 77 85 Respiratory 15 15 15 Rate Blood Pressure 117/67 123/70 120/69 O2 Sat by Pulse 100 100 100 Oximetry O2 Sat by Pulse Oximetry [ Anterior Bilateral Throughout] 08/03/20 08/03/20 08/03/20 00:30 01:00 01:30 Temperature Pulse Rate 80 75 77 Respiratory 15 14 14 Rate Blood Pressure 121/69 123/70 125/73 O2 Sat by Pulse 100 100 100 Oximetry O2 Sat by Pulse Oximetry [ Anterior Bilateral Throughout] 08/03/20 08/03/20 08/03/20 02:00 02:30 03:01 Temperature Pulse Rate 77 74 73 Respiratory 15 13 12 Rate Blood Pressure 128/77 125/75 131/74 O2 Sat by Pulse 100 100 100 Oximetry O2 Sat by Pulse Oximetry [ Anterior Bilateral Throughout] 08/03/20 04:00 Temperature 97.4 F L Pulse Rate 83 Respiratory Rate Blood Pressure O2 Sat by Pulse 100 Oximetry O2 Sat by Pulse Oximetry [ Anterior Bilateral Throughout] - General Appearance General appearance: sedated on ventilator, intubated EENT: ATNC Neck: no JVD Respiratory: Present: Decreased Breath Sounds Cardiology: regular Gastrointestinal: normal Integumentary: ulcer Neurologic: other (sedated, intubated ) Musculoskeletal: other (2+edema ) - Lab 08/03/20 04:00 08/01/20 05:22 Most recent lab results ABG pH 7.520 pH Units (7.350-7.450) H 07/27/20 05:20 ABG pCO2 33.5 mm Hg 07/27/20 05:20 ABG pO2 64.2 mm Hg (80.0-90.0) L 07/27/20 05:20 ABG HCO3 26.8 mmol/L (20.0-26.0) H 07/27/20 05:20 ABG O2 Saturation 95.8 % (95.0-99.0) 07/27/20 05:20 Calcium 7.8 mg/dL (8.4-10.2) L 08/01/20 05:22 Phosphorus 5.10 mg/dL (2.5-4.5) H 08/01/20 05:22 Magnesium 2.00 mg/dL (1.7-2.3) 08/01/20 05:22 - Allied health notes Allied health notes reviewed: nursing Medications & Allergies - Medications Allergies/Adverse Reactions: Allergies No Known Allergies Allergy (Verified 06/19/19 17:53) Home Medications: Home Medications Medication Instructions Recorded Confirmed Last Taken Type FLUoxetine [PROzac] 20 mg PO QDAY #14 capsule 06/23/19 06/21/20 Unknown Rx traZODone [Desyrel] 50 mg PO QHS #10 tablet 06/23/19 06/21/20 Unknown Rx Folic Acid 1 mg PO DAILY #30 tablet 06/25/19 06/21/20 Unknown Rx Nicotine [Habitrol] 14 mg TD DAILY #30 patch 06/25/19 06/21/20 Unknown Rx Thiamine [Vitamin B-1] 100 mg PO QDAY #30 tablet 06/25/19 06/21/20 Unknown Rx Aspirin EC [Halfprin EC] 81 mg PO QDAY #30 tablet. 07/26/19 06/21/20 Unknown Rx levETIRAcetam [Keppra TAB] 750 mg PO BID #60 tablet 07/26/19 06/21/20 Unknown Rx Furosemide [Lasix TAB] 40 mg PO QDAY #30 tablet 04/28/20 06/21/20 Unknown Rx Famotidine [Pepcid] 20 mg PO BID #60 tablet 07/05/20 Unknown Rx Insulin NPH, Human [NovoLIN N] 5 unit SUB-Q BIDDIAB 30 Days #10 ml 07/05/20 06/21/20 Unknown Rx amLODIPine 10 mg PO QDAY #30 tablet 07/05/20 Unknown Rx carvediloL [Coreg] 12.5 mg PO BID #60 tablet 07/05/20 Unknown Rx hydrALAZINE [Apresoline TAB] 50 mg PO Q8HR #30 tablet 07/06/20 Unknown Rx Active Medications: Generic Name Dose Route Start Last Admin Trade Name Freq PRN Reason Stop Dose Admin Lipase/Protease/Amylase 1 each 07/23/20 14:17 Lipase 10,500/Protease 25,000/Amylase 43,750 (Units) Dr Shell FEEDTUBE PRN PRN For Clogged Feeding Tube Aspirin 81 mg 08/01/20 10:00 08/02/20 10:45 Aspirin 81 Mg Tab Chew PO 81 mg QDAY JODIE Administration Atropine Sulfate 1 mg 07/23/20 09:03 07/23/20 22:15 Atropine 0.1% (1 Mg/10 Ml) Cardiac Syringe IV 1 mg PRN PRN Administration Bradycardia Dextrose 50 ml 07/23/20 03:28 07/23/20 06:00 Dextrose 50% In Water (25gm) 50 Ml Syringe IV 50 ml Q30MIN PRN Administration Hypoglycemia Protocol Famotidine 20 mg 07/18/20 22:00 08/02/20 09:59 Famotidine 20 Mg Tab PO 20 mg DAILY JODIE Administration Folic Acid 1 mg 07/19/20 10:00 08/02/20 10:00 Folic Acid 1 Mg Tab PO 1 mg DAILY JODIE Administration Hydralazine HCl 50 mg 07/18/20 14:00 08/02/20 22:27 Hydralazine 25 Mg Tab PO 50 mg Q8HR JODIE Administration Hydralazine HCl 20 mg 07/22/20 14:02 Hydralazine 20 Mg/1 Ml Inj IV Q4HR PRN Blood Pressure Hydrophilic Ointment 1 applic 07/22/20 10:02 Lip Therapy Vaseline TP Q2HR PRN Dry Lips Norepinephrine 4 mg in 250 mls @ 7.5 mls/hr 07/24/20 10:00 07/24/20 15:35 Levophed Drip 4 Mg/Ns 250 Ml IV 0 mcg/min TITR JODIE 0 mls/hr Titration Protocol 2 MCG/MIN Sodium Chloride 100 mls @ 999 mls/hr 07/31/20 08:21 Nacl 0.9% IV FRANCISCO PRN Hypotension Insulin Glargine 10 units 07/30/20 22:00 08/02/20 21:38 Insulin Glargine 100 Units/Ml SUB-Q 10 units QHS JODIE Administration Insulin Human Lispro 0 unit 07/26/20 10:00 08/02/20 18:10 Insulin Lispro 100 Unit/Ml SUB-Q Not Given Q6HR [facility] Protocol Levetiracetam 750 mg 07/18/20 22:00 08/02/20 21:39 Levetiracetam 500 Mg/5 Ml Oral Liqd PO 750 mg BID JODIE Administration Multi-Ingred Cream/Lotion/Oil/Oint 1 applic 07/22/20 10:02 Mineral Oil/Petrolatum, White Ophth Oint 3.5 Gm OU Q4HR PRN Dry Eye(s) Scopolamine 1 each 07/31/20 10:00 07/31/20 11:00 Scopolamine Transdermal Patch 72 Hr TD 1 each Q3D JODIE Administration Simple Syrup 15 ml 07/23/20 14:17 Simple Syrup 15 Ml FEEDTUBE PRN PRN Hypoglycemia Simple Syrup 30 ml 07/23/20 14:17 Simple Syrup 15 Ml FEEDTUBE PRN PRN Hypoglycemia Sodium Bicarbonate 325 mg 07/23/20 14:17 Sodium Bicarbonate 325 Mg Tab FEEDTUBE PRN PRN For Clogged Feeding Tube Thiamine HCl 100 mg 07/19/20 10:00 08/02/20 10:00 Thiamine 100 Mg Tab PO 100 mg QDAY JODIE Administration
[2020-08-03] MEDS: hydrALAZINE 25 MG TAB PO SCH ×4 (06:20→21:30)
[2020-08-03] MEDS: INSULIN LISPRO 100 UNIT/ML SUB-Q SCH ×3 (08:24→12:34)
[2020-08-03] MEDS ORDERED: SODIUM CHLORIDE 0.9% 500 ML 500 ML IV NR (08:44)
[2020-08-03] MEDS: ASPIRIN 81 MG TAB CHEW PO SCH (09:19)
[2020-08-03] MEDS: SCOPOLAMINE TRANSDERMAL PATCH 72 HR TD SCH (09:19)
[2020-08-03] MEDS: FAMOTIDINE 20 MG TAB PO SCH (09:19)
[2020-08-03] MEDS: THIAMINE 100 MG TAB PO SCH (09:20)
[2020-08-03] MEDS: levETIRAcetam 500 MG/5 ML ORAL LIQD PO SCH ×2 (09:20→21:29)
[2020-08-03] MEDS: FOLIC ACID 1 MG TAB PO SCH (09:21)
[2020-08-03 10:02] LABS: Hemoglobin 6.6 gm/dl (11.8-15.2)
--- NOTE | 2020-08-03 10:02 | Progress Note ---
Assessment and Plan 8 y/o male with acute respiratory failure secondary to worsening renal failure, volume overload and altered mental state 08/03/20: Reviewed repeat EEG. Getting MRI today. Will ask Neuro to see patient again after MRI. Given current state and now reading on EEG, will need to have family discussion once MRI is done. Likely will need trach and peg placement. Transfuse today during HD. 08/02/20: Will consider ordering repeat EEG today tomorrow. Neuro has not re- evaluated the patient since initial consult. Hold on transfusion today as bp is stable and HD is not until tomorrow. Overall prognosis is guarded to poor. May need to start looking into LTACH if not able to wean. Currently on minimal settings but mental state will not allow traditional extubation. 08/01/20: Will repeat EEG at request of neurology. No MRI requested. CT and EEG report not equivalent. Trial of narcan given but no improvement. Does have urine in the bladder but no jones and prior history of obstruction requiring urology to place jones. May need to consider asking them to re-evaluate. Prognosis remains guarded to poor. 07/31/20: Will obtain, EEG and neuro consult. They will likely ask for MRI so will speak with family about obtaining screening form info. Continue PSV trials. HD per renal. Guarded to poor prognosis. 07/30/20: Mental state continues to prevent conventional extubation. HD per renal. Need to repeat Head CT to check for other damage. 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 Very very guarded prognosis. If repeat head CT is negative, will need neuro eval and EEG 07/27/20: Mental state continues to prevent conventional extubation. Currently stable on minimal vent settings. HD per renal, does not appear he was dialyzed yesterday so may get it today. If not more awake by tomorrow, suggest repeat head CT. Continue all other supportive measures. 07/26/20: Drop PEEP down to 6. Once more awake PSV trials. HD per renal. Appears to be helping, maybe they will dialyze again today. Prognosis still remains guarded. 1. Needs HD 2. Wean FiO2 and PEEP as tolerated 3. Guarded prognosis CCT 31 minutes. Subjective Date of service: 08/03/20 Principal diagnosis: RACQUEL Interval history: Remains unresponsive. Had repeat EEG yesterday that is now compatible with his clinical picture. Bleeding is now seen in suction catheter. HgB stable at 6.7 but will transfuse with HD today. Remainder is negative. Objective Vital Signs - 12hr 08/02/20 08/02/20 08/02/20 22:00 22:27 22:30 Temperature Pulse Rate 75 78 80 Pulse Rate [ From Monitor] Respiratory 15 15 Rate Blood Pressure 129/75 129/75 139/79 O2 Sat by Pulse 100 100 Oximetry 08/02/20 08/02/20 08/02/20 23:00 23:30 23:32 Temperature Pulse Rate 80 81 80 Pulse Rate [ From Monitor] Respiratory 15 14 15 Rate Blood Pressure 115/64 117/67 117/67 O2 Sat by Pulse 100 100 100 Oximetry 08/03/20 08/03/20 08/03/20 00:00 00:01 00:30 Temperature Pulse Rate 77 85 80 Pulse Rate [ From Monitor] Respiratory 16 15 15 Rate Blood Pressure 123/70 120/69 121/69 O2 Sat by Pulse 100 100 100 Oximetry 08/03/20 08/03/20 08/03/20 01:00 01:30 02:00 Temperature Pulse Rate 75 77 77 Pulse Rate [ From Monitor] Respiratory 14 14 15 Rate Blood Pressure 123/70 125/73 128/77 O2 Sat by Pulse 100 100 100 Oximetry 08/03/20 08/03/20 08/03/20 02:30 03:01 04:00 Temperature 97.4 F L Pulse Rate 74 73 74 Pulse Rate [ From Monitor] Respiratory 13 12 13 Rate Blood Pressure 125/75 131/74 134/79 O2 Sat by Pulse 100 100 100 Oximetry 08/03/20 08/03/20 08/03/20 05:01 06:01 06:20 Temperature Pulse Rate 89 76 76 Pulse Rate [ From Monitor] Respiratory 18 13 Rate Blood Pressure 137/87 154/85 154/85 O2 Sat by Pulse 100 100 Oximetry 08/03/20 08/03/20 08/03/20 07:00 07:45 08:00 Temperature 99.1 F Pulse Rate 73 74 Pulse Rate [ 72 From Monitor] Respiratory 17 15 Rate Blood Pressure 113/64 124/70 O2 Sat by Pulse 100 100 Oximetry 08/03/20 08:34 Temperature Pulse Rate 71 Pulse Rate [ From Monitor] Respiratory 14 Rate Blood Pressure 115/70 O2 Sat by Pulse 100 Oximetry Constitutional: appears uncomfortable (cpap, orally intubated), other (on vent orally intubated) Eyes: non-icteric ENT: epistaxis Neck: other (large in circumference) Effort: mildly labored Ascultation: Bilateral: diminished breath sounds Neurologic: non-focal exam, unable to assess CBC and BMP: 08/03/20 04:00 08/03/20 04:00 ABG, PT/INR, D-dimer: ABG ABG pH 7.520 pH Units (7.350-7.450) H 07/27/20 05:20 POC ABG pCO2 32.7 mmHg (32.0-48.0) 07/25/20 03:57 ABG pCO2 33.5 mm Hg 07/27/20 05:20 POC ABG pO2 62.7 mmHg (83-108) L 07/25/20 03:57 ABG pO2 64.2 mm Hg (80.0-90.0) L 07/27/20 05:20 POC ABG HCO3 24.8 07/25/20 03:57 ABG O2 Saturation 95.8 % (95.0-99.0) 07/27/20 05:20 PT/INR, D-dimer PT 15.9 Sec. (12.2-14.9) H 07/22/20 10:30 INR 1.27 (0.87-1.13) H 07/22/20 10:30 D-Dimer 1036.46 ng/mlDDU (0-234) H 07/18/20 08:56 Abnormal lab findings: Abnormal Labs 07/18/20 07/18/20 07/18/20 08:56 08:56 08:56 WBC 3.5 L RBC 2.51 L Hgb 8.0 L Hct 24.5 L MCV 98 H RDW 18.3 H Plt Count 58 L Lymph % (Auto) [place] % (Auto) 11.1 H Lymph # (Auto) [place] # (Auto) Seg Neutrophils % Seg Neuts % (Manual) Lymphocytes % (Manual) Nucleated RBC % Seg Neutrophils # Man Lymphocytes # (Manual) PT INR 1.18 H APTT D-Dimer ABG pH POC ABG pCO2 POC ABG pO2 ABG pO2 ABG HCO3 ABG Base Excess ABG Hemoglobin ABG Oxyhemoglobin ABG Potassium ABG Chloride ABG Glucose Oxyhemoglobin Carboxyhemoglobin Sodium 146 H Potassium 5.2 H Chloride 117.3 H Carbon Dioxide 21 L BUN 52 H Creatinine 3.1 H Glucose 118 H POC Glucose Calcium 8.1 L Phosphorus AST ALT Alkaline Phosphatase Lactate Dehydrogenase CK-MB (CK-2) CK-MB (CK-2) Rel Index Troponin T 0.057 H C-Reactive Protein NT-Pro-B Natriuret Pep Albumin HDL Cholesterol 67 H TSH Arterial Blood Glucose Arterial Blood Ionized Calcium Hepatitis C Antibody Crossmatch 07/18/20 07/18/20 07/18/20 08:56 08:56 08:56 WBC RBC Hgb Hct MCV RDW Plt Count Lymph % (Auto) [place] % (Auto) Lymph # (Auto) [place] # (Auto) Seg Neutrophils % Seg Neuts % (Manual) Lymphocytes % (Manual) Nucleated RBC % Seg Neutrophils # Man Lymphocytes # (Manual) PT INR APTT D-Dimer 1036.46 H ABG pH POC ABG pCO2 POC ABG pO2 ABG pO2 ABG HCO3 ABG Base Excess ABG Hemoglobin ABG Oxyhemoglobin ABG Potassium ABG Chloride ABG Glucose Oxyhemoglobin Carboxyhemoglobin Sodium Potassium Chloride Carbon Dioxide BUN Creatinine Glucose POC Glucose Calcium Phosphorus AST ALT Alkaline Phosphatase Lactate Dehydrogenase CK-MB (CK-2) CK-MB (CK-2) Rel Index Troponin T C-Reactive Protein NT-Pro-B Natriuret Pep 4777 H Albumin HDL Cholesterol TSH 5.520 H Arterial Blood Glucose Arterial Blood Ionized Calcium Hepatitis C Antibody Crossmatch 07/18/20 07/18/20 07/18/20 10:36 18:56 19:00 WBC RBC Hgb Hct MCV RDW Plt Count Lymph % (Auto) [place] % (Auto) Lymph # (Auto) [place] # (Auto) Seg Neutrophils % Seg Neuts % (Manual) Lymphocytes % (Manual) Nucleated RBC % Seg Neutrophils # Man Lymphocytes # (Manual) PT INR APTT D-Dimer ABG pH POC ABG pCO2 POC ABG pO2 ABG pO2 ABG HCO3 ABG Base Excess ABG Hemoglobin ABG Oxyhemoglobin ABG Potassium ABG Chloride ABG Glucose Oxyhemoglobin Carboxyhemoglobin Sodium Potassium Chloride Carbon Dioxide BUN Creatinine Glucose 101 H POC Glucose 66 L 63 L Calcium Phosphorus AST ALT Alkaline Phosphatase Lactate Dehydrogenase 212 H CK-MB (CK-2) CK-MB (CK-2) Rel Index Troponin T C-Reactive Protein 2.10 H NT-Pro-B Natriuret Pep Albumin HDL Cholesterol TSH Arterial Blood Glucose Arterial Blood Ionized Calcium Hepatitis C Antibody Crossmatch 07/19/20 07/19/20 07/19/20 06:00 06:00 16:26 WBC 3.9 L RBC 2.34 L Hgb 7.5 L Hct 23.1 L MCV 99 H RDW 18.6 H Plt Count 52 L Lymph % (Auto) [place] % (Auto) 9.4 H Lymph # (Auto) 1.0 L [place] # (Auto) Seg Neutrophils % Seg Neuts % (Manual) Lymphocytes % (Manual) Nucleated RBC % Seg Neutrophils # Man Lymphocytes # (Manual) PT INR APTT D-Dimer ABG pH POC ABG pCO2 POC ABG pO2 ABG pO2 ABG HCO3 ABG Base Excess ABG Hemoglobin ABG Oxyhemoglobin ABG Potassium ABG Chloride ABG Glucose Oxyhemoglobin Carboxyhemoglobin Sodium Potassium 5.3 H Chloride 115.8 H Carbon Dioxide BUN 52 H Creatinine 3.4 H Glucose 114 H POC Glucose 123 H Calcium 7.7 L Phosphorus AST 77 H ALT < 5 L Alkaline Phosphatase 678 H Lactate Dehydrogenase CK-MB (CK-2) CK-MB (CK-2) Rel Index Troponin T C-Reactive Protein NT-Pro-B Natriuret Pep Albumin 2.2 L HDL Cholesterol TSH Arterial Blood Glucose Arterial Blood Ionized Calcium Hepatitis C Antibody Crossmatch 07/19/20 07/20/20 07/20/20 21:20 08:25 08:25 WBC 3.6 L RBC 2.54 L Hgb 8.0 L Hct 24.6 L MCV 97 H RDW 18.0 H Plt Count 47 L Lymph % (Auto) [place] % (Auto) 9.8 H Lymph # (Auto) 0.9 L [place] # (Auto) Seg Neutrophils % Seg Neuts % (Manual) Lymphocytes % (Manual) Nucleated RBC % Seg Neutrophils # Man Lymphocytes # (Manual) PT INR APTT D-Dimer ABG pH POC ABG pCO2 POC ABG pO2 ABG pO2 ABG HCO3 ABG Base Excess ABG Hemoglobin ABG Oxyhemoglobin ABG Potassium ABG Chloride ABG Glucose Oxyhemoglobin Carboxyhemoglobin Sodium Potassium 5.4 H Chloride 115.8 H Carbon Dioxide BUN 56 H Creatinine 3.8 H Glucose 110 H POC Glucose 142 H Calcium 7.9 L Phosphorus AST ALT Alkaline Phosphatase Lactate Dehydrogenase CK-MB (CK-2) CK-MB (CK-2) Rel Index Troponin T C-Reactive Protein NT-Pro-B Natriuret Pep Albumin HDL Cholesterol TSH Arterial Blood Glucose Arterial Blood Ionized Calcium Hepatitis C Antibody Crossmatch 07/20/20 07/20/20 07/20/20 11:27 16:34 21:27 WBC RBC Hgb Hct MCV RDW Plt Count Lymph % (Auto) [place] % (Auto) Lymph # (Auto) [place] # (Auto) Seg Neutrophils % Seg Neuts % (Manual) Lymphocytes % (Manual) Nucleated RBC % Seg Neutrophils # Man Lymphocytes # (Manual) PT INR APTT D-Dimer ABG pH POC ABG pCO2 POC ABG pO2 ABG pO2 ABG HCO3 ABG Base Excess ABG Hemoglobin ABG Oxyhemoglobin ABG Potassium ABG Chloride ABG Glucose Oxyhemoglobin Carboxyhemoglobin Sodium Potassium Chloride Carbon Dioxide BUN Creatinine Glucose POC Glucose 136 H 186 H 175 H Calcium Phosphorus AST ALT Alkaline Phosphatase Lactate Dehydrogenase CK-MB (CK-2) CK-MB (CK-2) Rel Index Troponin T C-Reactive Protein NT-Pro-B Natriuret Pep Albumin HDL Cholesterol TSH Arterial Blood Glucose Arterial Blood Ionized Calcium Hepatitis C Antibody Crossmatch 07/21/20 07/22/20 07/22/20 10:31 07:25 10:30 WBC 3.8 L RBC 2.53 L Hgb 7.9 L Hct 24.7 L MCV 98 H RDW 18.7 H Plt Count 35 L Lymph % (Auto) [place] % (Auto) Lymph # (Auto) [place] # (Auto) Seg Neutrophils % Seg Neuts % (Manual) 92.0 H Lymphocytes % (Manual) 6.0 L Nucleated RBC % 13.0 H Seg Neutrophils # Man Lymphocytes # (Manual) 0.2 L PT INR APTT D-Dimer ABG pH POC ABG pCO2 POC ABG pO2 ABG pO2 ABG HCO3 ABG Base Excess ABG Hemoglobin ABG Oxyhemoglobin ABG Potassium ABG Chloride ABG Glucose Oxyhemoglobin Carboxyhemoglobin Sodium Potassium 5.3 H 5.6 H Chloride 115.0 H 115.1 H Carbon Dioxide 18 L BUN 59 H 61 H Creatinine 4.3 H 4.6 H Glucose 109 H POC Glucose Calcium 7.6 L 7.6 L Phosphorus AST ALT Alkaline Phosphatase Lactate Dehydrogenase CK-MB (CK-2) CK-MB (CK-2) Rel Index Troponin T C-Reactive Protein NT-Pro-B Natriuret Pep Albumin HDL Cholesterol TSH Arterial Blood Glucose Arterial Blood Ionized Calcium Hepatitis C Antibody Crossmatch 07/22/20 07/22/20 07/22/20 10:30 10:30 10:30 WBC RBC Hgb Hct MCV RDW Plt Count Lymph % (Auto) [place] % (Auto) Lymph # (Auto) [place] # (Auto) Seg Neutrophils % Seg Neuts % (Manual) Lymphocytes % (Manual) Nucleated RBC % Seg Neutrophils # Man Lymphocytes # (Manual) PT 15.9 H INR 1.27 H APTT 38.3 H D-Dimer ABG pH POC ABG pCO2 POC ABG pO2 ABG pO2 ABG HCO3 ABG Base Excess ABG Hemoglobin ABG Oxyhemoglobin ABG Potassium ABG Chloride ABG Glucose Oxyhemoglobin Carboxyhemoglobin Sodium 146 H Potassium 5.4 H Chloride 116.4 H Carbon Dioxide BUN 61 H Creatinine 4.6 H Glucose 115 H POC Glucose Calcium 7.5 L Phosphorus 5.80 H AST 66 H ALT < 5 L Alkaline Phosphatase 604 H Lactate Dehydrogenase CK-MB (CK-2) 10.9 H CK-MB (CK-2) Rel Index 16.2 H Troponin T 0.047 H C-Reactive Protein NT-Pro-B Natriuret Pep Albumin 2.1 L HDL Cholesterol TSH Arterial Blood Glucose Arterial Blood Ionized Calcium Hepatitis C Antibody Crossmatch 07/22/20 07/23/20 07/23/20 11:10 03:38 03:47 WBC RBC Hgb Hct MCV RDW Plt Count Lymph % (Auto) [place] % (Auto) Lymph # (Auto) [place] # (Auto) Seg Neutrophils % Seg Neuts % (Manual) Lymphocytes % (Manual) Nucleated RBC % Seg Neutrophils # Man Lymphocytes # (Manual) PT INR APTT D-Dimer ABG pH 7.203 L POC ABG pCO2 48.7 H 29.7 L POC ABG pO2 80.6 L 267.3 H ABG pO2 ABG HCO3 ABG Base Excess ABG Hemoglobin 8.6 L 8.2 L ABG Oxyhemoglobin 91.1 L 98.2 H ABG Potassium 5.4 H 5.4 H ABG Chloride 122.0 H 122.0 H ABG Glucose 105 H 101 H Oxyhemoglobin Carboxyhemoglobin 2.0 H Sodium Potassium Chloride Carbon Dioxide BUN Creatinine Glucose POC Glucose 65 L Calcium Phosphorus AST ALT Alkaline Phosphatase Lactate Dehydrogenase CK-MB (CK-2) CK-MB (CK-2) Rel Index Troponin T C-Reactive Protein NT-Pro-B Natriuret Pep Albumin HDL Cholesterol TSH Arterial Blood Glucose 105 H 101 H Arterial Blood Ionized Calcium 4.5 L 4.4 L Hepatitis C Antibody Crossmatch 07/23/20 07/23/20 07/23/20 06:05 06:05 06:27 WBC RBC 2.36 L Hgb 7.5 L Hct 22.7 L MCV 96 H RDW 18.9 H Plt Count 42 L Lymph % (Auto) [place] % (Auto) Lymph # (Auto) [place] # (Auto) Seg Neutrophils % Seg Neuts % (Manual) Lymphocytes % (Manual) Nucleated RBC % Seg Neutrophils # Man Lymphocytes # (Manual) PT INR APTT D-Dimer ABG pH POC ABG pCO2 POC ABG pO2 ABG pO2 ABG HCO3 ABG Base Excess ABG Hemoglobin ABG Oxyhemoglobin ABG Potassium ABG Chloride ABG Glucose Oxyhemoglobin Carboxyhemoglobin Sodium Potassium 5.6 H Chloride 114.1 H Carbon Dioxide 17 L BUN 62 H Creatinine 5.1 H Glucose 215 H POC Glucose 114 H Calcium 7.3 L Phosphorus AST ALT Alkaline Phosphatase Lactate Dehydrogenase CK-MB (CK-2) CK-MB (CK-2) Rel Index Troponin T C-Reactive Protein NT-Pro-B Natriuret Pep Albumin HDL Cholesterol TSH Arterial Blood Glucose Arterial Blood Ionized Calcium Hepatitis C Antibody Crossmatch 07/23/20 07/23/20 07/24/20 11:36 19:20 04:00 WBC RBC Hgb Hct MCV RDW Plt Count Lymph % (Auto) [place] % (Auto) Lymph # (Auto) [place] # (Auto) Seg Neutrophils % Seg Neuts % (Manual) Lymphocytes % (Manual) Nucleated RBC % Seg Neutrophils # Man Lymphocytes # (Manual) PT INR APTT D-Dimer ABG pH POC ABG pCO2 POC ABG pO2 ABG pO2 ABG HCO3 ABG Base Excess ABG Hemoglobin ABG Oxyhemoglobin ABG Potassium ABG Chloride ABG Glucose Oxyhemoglobin Carboxyhemoglobin Sodium Potassium Chloride 110.8 H Carbon Dioxide BUN 47 H Creatinine 4.4 H Glucose POC Glucose 66 L Calcium 7.3 L Phosphorus AST ALT Alkaline Phosphatase Lactate Dehydrogenase CK-MB (CK-2) CK-MB (CK-2) Rel Index Troponin T C-Reactive Protein NT-Pro-B Natriuret Pep Albumin HDL Cholesterol TSH Arterial Blood Glucose Arterial Blood Ionized Calcium Hepatitis C Antibody Reactive A Crossmatch 07/24/20 07/24/20 07/24/20 04:25 11:37 Unknown WBC RBC 2.36 L Hgb 7.5 L Hct 22.5 L MCV 95 H RDW 18.4 H Plt Count 38 L Lymph % (Auto) [place] % (Auto) Lymph # (Auto) [place] # (Auto) Seg Neutrophils % Seg Neuts % (Manual) Lymphocytes % (Manual) Nucleated RBC % Seg Neutrophils # Man Lymphocytes # (Manual) PT INR APTT D-Dimer ABG pH POC ABG pCO2 POC ABG pO2 64.8 L ABG pO2 ABG HCO3 ABG Base Excess ABG Hemoglobin 7.9 L ABG Oxyhemoglobin ABG Potassium ABG Chloride 114.0 H ABG Glucose Oxyhemoglobin Carboxyhemoglobin Sodium Potassium Chloride Carbon Dioxide BUN Creatinine Glucose POC Glucose 109 H Calcium Phosphorus AST ALT Alkaline Phosphatase Lactate Dehydrogenase CK-MB (CK-2) CK-MB (CK-2) Rel Index Troponin T C-Reactive Protein NT-Pro-B Natriuret Pep Albumin HDL Cholesterol TSH Arterial Blood Glucose Arterial Blood Ionized Calcium 4.2 L Hepatitis C Antibody Crossmatch 07/25/20 07/25/20 07/25/20 00:12 03:57 04:00 WBC RBC Hgb Hct MCV RDW Plt Count Lymph % (Auto) [place] % (Auto) Lymph # (Auto) [place] # (Auto) Seg Neutrophils % Seg Neuts % (Manual) Lymphocytes % (Manual) Nucleated RBC % Seg Neutrophils # Man Lymphocytes # (Manual) PT INR APTT D-Dimer ABG pH 7.497 H POC ABG pCO2 POC ABG pO2 62.7 L ABG pO2 ABG HCO3 ABG Base Excess ABG Hemoglobin 8.5 L ABG Oxyhemoglobin 90.1 L ABG Potassium ABG Chloride 110.0 H ABG Glucose 157 H Oxyhemoglobin Carboxyhemoglobin Sodium Potassium Chloride Carbon Dioxide BUN 38 H Creatinine 4.1 H Glucose 160 H POC Glucose 140 H Calcium 7.9 L Phosphorus AST ALT Alkaline Phosphatase Lactate Dehydrogenase CK-MB (CK-2) CK-MB (CK-2) Rel Index Troponin T C-Reactive Protein NT-Pro-B Natriuret Pep Albumin HDL Cholesterol TSH Arterial Blood Glucose 157 H Arterial Blood Ionized Calcium 4.3 L Hepatitis C Antibody Crossmatch 07/25/20 07/25/20 07/25/20 04:00 06:24 12:11 WBC RBC 2.48 L Hgb 7.7 L Hct 23.2 L MCV RDW 18.4 H Plt Count 44 L Lymph % (Auto) [place] % (Auto) 8.5 H Lymph # (Auto) [place] # (Auto) Seg Neutrophils % 76.7 H Seg Neuts % (Manual) Lymphocytes % (Manual) Nucleated RBC % Seg Neutrophils # Man Lymphocytes # (Manual) PT INR APTT D-Dimer ABG pH POC ABG pCO2 POC ABG pO2 ABG pO2 ABG HCO3 ABG Base Excess ABG Hemoglobin ABG Oxyhemoglobin ABG Potassium ABG Chloride ABG Glucose Oxyhemoglobin Carboxyhemoglobin Sodium Potassium Chloride Carbon Dioxide BUN Creatinine Glucose POC Glucose 155 H 205 H Calcium Phosphorus AST ALT Alkaline Phosphatase Lactate Dehydrogenase CK-MB (CK-2) CK-MB (CK-2) Rel Index Troponin T C-Reactive Protein NT-Pro-B Natriuret Pep Albumin HDL Cholesterol TSH Arterial Blood Glucose Arterial Blood Ionized Calcium Hepatitis C Antibody Crossmatch 07/25/20 07/26/20 07/26/20 17:41 00:18 03:54 WBC RBC Hgb Hct MCV RDW Plt Count Lymph % (Auto) [place] % (Auto) Lymph # (Auto) [place] # (Auto) Seg Neutrophils % Seg Neuts % (Manual) Lymphocytes % (Manual) Nucleated RBC % Seg Neutrophils # Man Lymphocytes # (Manual) PT INR APTT D-Dimer ABG pH 7.512 H POC ABG pCO2 POC ABG pO2 ABG pO2 121.2 H ABG HCO3 27.1 H ABG Base Excess 3.6 H ABG Hemoglobin < 5.1 L ABG Oxyhemoglobin ABG Potassium ABG Chloride ABG Glucose Oxyhemoglobin Carboxyhemoglobin Sodium Potassium Chloride Carbon Dioxide BUN Creatinine Glucose POC Glucose 227 H 198 H Calcium Phosphorus AST ALT Alkaline Phosphatase Lactate Dehydrogenase CK-MB (CK-2) CK-MB (CK-2) Rel Index Troponin T C-Reactive Protein NT-Pro-B Natriuret Pep Albumin HDL Cholesterol TSH Arterial Blood Glucose Arterial Blood Ionized Calcium Hepatitis C Antibody Crossmatch 07/26/20 07/26/20 07/26/20 06:31 07:00 12:09 WBC RBC 2.33 L Hgb 7.4 L Hct 21.6 L MCV RDW 18.0 H Plt Count 50 L Lymph % (Auto) 13.0 L [place] % (Auto) Lymph # (Auto) [place] # (Auto) Seg Neutrophils % 79.8 H Seg Neuts % (Manual) Lymphocytes % (Manual) Nucleated RBC % Seg Neutrophils # Man Lymphocytes # (Manual) PT INR APTT D-Dimer ABG pH POC ABG pCO2 POC ABG pO2 ABG pO2 ABG HCO3 ABG Base Excess ABG Hemoglobin ABG Oxyhemoglobin ABG Potassium ABG Chloride ABG Glucose Oxyhemoglobin Carboxyhemoglobin Sodium Potassium Chloride Carbon Dioxide BUN Creatinine Glucose POC Glucose 223 H 250 H Calcium Phosphorus AST ALT Alkaline Phosphatase Lactate Dehydrogenase CK-MB (CK-2) CK-MB (CK-2) Rel Index Troponin T C-Reactive Protein NT-Pro-B Natriuret Pep Albumin HDL Cholesterol TSH Arterial Blood Glucose Arterial Blood Ionized Calcium Hepatitis C Antibody Crossmatch 07/26/20 07/26/20 07/27/20 17:40 23:26 05:20 WBC RBC Hgb Hct MCV RDW Plt Count Lymph % (Auto) [place] % (Auto) Lymph # (Auto) [place] # (Auto) Seg Neutrophils % Seg Neuts % (Manual) Lymphocytes % (Manual) Nucleated RBC % Seg Neutrophils # Man Lymphocytes # (Manual) PT INR APTT D-Dimer ABG pH 7.520 H POC ABG pCO2 POC ABG pO2 ABG pO2 64.2 L ABG HCO3 26.8 H ABG Base Excess 3.7 H ABG Hemoglobin 7.2 L ABG Oxyhemoglobin ABG Potassium ABG Chloride ABG Glucose Oxyhemoglobin 93.2 L Carboxyhemoglobin Sodium Potassium Chloride Carbon Dioxide BUN Creatinine Glucose POC Glucose 226 H 176 H Calcium Phosphorus AST ALT Alkaline Phosphatase Lactate Dehydrogenase CK-MB (CK-2) CK-MB (CK-2) Rel Index Troponin T C-Reactive Protein NT-Pro-B Natriuret Pep Albumin HDL Cholesterol TSH Arterial Blood Glucose Arterial Blood Ionized Calcium Hepatitis C Antibody Crossmatch 07/27/20 07/27/20 07/27/20 05:42 06:36 06:36 WBC RBC 2.23 L Hgb 7.0 L Hct 20.7 L MCV RDW 18.4 H Plt Count 56 L Lymph % (Auto) [place] % (Auto) Lymph # (Auto) [place] # (Auto) Seg Neutrophils % Seg Neuts % (Manual) 88.0 H Lymphocytes % (Manual) 11.0 L Nucleated RBC % 2.0 H Seg Neutrophils # Man 8.9 H Lymphocytes # (Manual) 1.1 L PT INR APTT D-Dimer ABG pH POC ABG pCO2 POC ABG pO2 ABG pO2 ABG HCO3 ABG Base Excess ABG Hemoglobin ABG Oxyhemoglobin ABG Potassium ABG Chloride ABG Glucose Oxyhemoglobin Carboxyhemoglobin Sodium Potassium Chloride Carbon Dioxide BUN 43 H Creatinine 4.4 H Glucose 162 H POC Glucose 142 H Calcium 8.2 L Phosphorus AST ALT Alkaline Phosphatase Lactate Dehydrogenase CK-MB (CK-2) CK-MB (CK-2) Rel Index Troponin T C-Reactive Protein NT-Pro-B Natriuret Pep Albumin HDL Cholesterol TSH Arterial Blood Glucose Arterial Blood Ionized Calcium Hepatitis C Antibody Crossmatch 07/27/20 07/27/20 07/27/20 11:42 17:37 23:15 WBC RBC Hgb Hct MCV RDW Plt Count Lymph % (Auto) [place] % (Auto) Lymph # (Auto) [place] # (Auto) Seg Neutrophils % Seg Neuts % (Manual) Lymphocytes % (Manual) Nucleated RBC % Seg Neutrophils # Man Lymphocytes # (Manual) PT INR APTT D-Dimer ABG pH POC ABG pCO2 POC ABG pO2 ABG pO2 ABG HCO3 ABG Base Excess ABG Hemoglobin ABG Oxyhemoglobin ABG Potassium ABG Chloride ABG Glucose Oxyhemoglobin Carboxyhemoglobin Sodium Potassium Chloride Carbon Dioxide BUN Creatinine Glucose POC Glucose 134 H 169 H 173 H Calcium Phosphorus AST ALT Alkaline Phosphatase Lactate Dehydrogenase CK-MB (CK-2) CK-MB (CK-2) Rel Index Troponin T C-Reactive Protein NT-Pro-B Natriuret Pep Albumin HDL Cholesterol TSH Arterial Blood Glucose Arterial Blood Ionized Calcium Hepatitis C Antibody Crossmatch 07/28/20 07/28/20 07/28/20 04:00 05:14 10:15 WBC RBC 2.13 L Hgb 6.8 L Hct 19.9 L* MCV RDW 18.4 H Plt Count 55 L Lymph % (Auto) [place] % (Auto) 9.1 H Lymph # (Auto) [place] # (Auto) 0.9 H Seg Neutrophils % 74.5 H Seg Neuts % (Manual) Lymphocytes % (Manual) Nucleated RBC % Seg Neutrophils # Man Lymphocytes # (Manual) PT INR APTT D-Dimer ABG pH POC ABG pCO2 POC ABG pO2 ABG pO2 ABG HCO3 ABG Base Excess ABG Hemoglobin ABG Oxyhemoglobin ABG Potassium ABG Chloride ABG Glucose Oxyhemoglobin Carboxyhemoglobin Sodium Potassium Chloride Carbon Dioxide BUN Creatinine Glucose POC Glucose 169 H Calcium Phosphorus AST ALT Alkaline Phosphatase Lactate Dehydrogenase CK-MB (CK-2) CK-MB (CK-2) Rel Index Troponin T C-Reactive Protein NT-Pro-B Natriuret Pep Albumin HDL Cholesterol TSH Arterial Blood Glucose Arterial Blood Ionized Calcium Hepatitis C Antibody Crossmatch See Detail 07/28/20 07/28/20 07/28/20 11:32 17:28 23:58 WBC RBC Hgb Hct MCV RDW Plt Count Lymph % (Auto) [place] % (Auto) Lymph # (Auto) [place] # (Auto) Seg Neutrophils % Seg Neuts % (Manual) Lymphocytes % (Manual) Nucleated RBC % Seg Neutrophils # Man Lymphocytes # (Manual) PT INR APTT D-Dimer ABG pH POC ABG pCO2 POC ABG pO2 ABG pO2 ABG HCO3 ABG Base Excess ABG Hemoglobin ABG Oxyhemoglobin ABG Potassium ABG Chloride ABG Glucose Oxyhemoglobin Carboxyhemoglobin Sodium Potassium Chloride Carbon Dioxide BUN Creatinine Glucose POC Glucose 185 H 208 H 227 H Calcium Phosphorus AST ALT Alkaline Phosphatase Lactate Dehydrogenase CK-MB (CK-2) CK-MB (CK-2) Rel Index Troponin T C-Reactive Protein NT-Pro-B Natriuret Pep Albumin HDL Cholesterol TSH Arterial Blood Glucose Arterial Blood Ionized Calcium Hepatitis C Antibody Crossmatch 07/29/20 07/29/20 07/29/20 05:37 12:04 17:11 WBC RBC Hgb Hct MCV RDW Plt Count Lymph % (Auto) [place] % (Auto) Lymph # (Auto) [place] # (Auto) Seg Neutrophils % Seg Neuts % (Manual) Lymphocytes % (Manual) Nucleated RBC % Seg Neutrophils # Man Lymphocytes # (Manual) PT INR APTT D-Dimer ABG pH POC ABG pCO2 POC ABG pO2 ABG pO2 ABG HCO3 ABG Base Excess ABG Hemoglobin ABG Oxyhemoglobin ABG Potassium ABG Chloride ABG Glucose Oxyhemoglobin Carboxyhemoglobin Sodium Potassium Chloride Carbon Dioxide BUN Creatinine Glucose POC Glucose 225 H 201 H 185 H Calcium Phosphorus AST ALT Alkaline Phosphatase Lactate Dehydrogenase CK-MB (CK-2) CK-MB (CK-2) Rel Index Troponin T C-Reactive Protein NT-Pro-B Natriuret Pep Albumin HDL Cholesterol TSH Arterial Blood Glucose Arterial Blood Ionized Calcium Hepatitis C Antibody Crossmatch 07/29/20 07/30/20 07/30/20 23:48 05:38 09:05 WBC RBC 2.49 L Hgb 7.7 L Hct 23.1 L MCV RDW 20.5 H Plt Count 54 L Lymph % (Auto) [place] % (Auto) Lymph # (Auto) [place] # (Auto) Seg Neutrophils % Seg Neuts % (Manual) Lymphocytes % (Manual) Nucleated RBC % Seg Neutrophils # Man Lymphocytes # (Manual) PT INR APTT D-Dimer ABG pH POC ABG pCO2 POC ABG pO2 ABG pO2 ABG HCO3 ABG Base Excess ABG Hemoglobin ABG Oxyhemoglobin ABG Potassium ABG Chloride ABG Glucose Oxyhemoglobin Carboxyhemoglobin Sodium Potassium Chloride Carbon Dioxide BUN Creatinine Glucose POC Glucose 209 H 205 H Calcium Phosphorus AST ALT Alkaline Phosphatase Lactate Dehydrogenase CK-MB (CK-2) CK-MB (CK-2) Rel Index Troponin T C-Reactive Protein NT-Pro-B Natriuret Pep Albumin HDL Cholesterol TSH Arterial Blood Glucose Arterial Blood Ionized Calcium Hepatitis C Antibody Crossmatch 07/30/20 07/30/20 07/30/20 09:05 11:42 17:46 WBC RBC Hgb Hct MCV RDW Plt Count Lymph % (Auto) [place] % (Auto) Lymph # (Auto) [place] # (Auto) Seg Neutrophils % Seg Neuts % (Manual) Lymphocytes % (Manual) Nucleated RBC % Seg Neutrophils # Man Lymphocytes # (Manual) PT INR APTT D-Dimer ABG pH POC ABG pCO2 POC ABG pO2 ABG pO2 ABG HCO3 ABG Base Excess ABG Hemoglobin ABG Oxyhemoglobin ABG Potassium ABG Chloride ABG Glucose Oxyhemoglobin Carboxyhemoglobin Sodium 135 L Potassium Chloride Carbon Dioxide BUN 52 H Creatinine 4.1 H Glucose 236 H POC Glucose 224 H 195 H Calcium Phosphorus AST ALT Alkaline Phosphatase Lactate Dehydrogenase CK-MB (CK-2) CK-MB (CK-2) Rel Index Troponin T C-Reactive Protein NT-Pro-B Natriuret Pep Albumin HDL Cholesterol TSH Arterial Blood Glucose Arterial Blood Ionized Calcium Hepatitis C Antibody Crossmatch 07/30/20 07/30/20 07/31/20 21:09 23:45 05:10 WBC RBC 2.46 L Hgb 7.6 L Hct 22.6 L MCV RDW 19.4 H Plt Count 77 L Lymph % (Auto) [place] % (Auto) Lymph # (Auto) [place] # (Auto) Seg Neutrophils % Seg Neuts % (Manual) Lymphocytes % (Manual) Nucleated RBC % Seg Neutrophils # Man Lymphocytes # (Manual) PT INR APTT D-Dimer ABG pH POC ABG pCO2 POC ABG pO2 ABG pO2 ABG HCO3 ABG Base Excess ABG Hemoglobin ABG Oxyhemoglobin ABG Potassium ABG Chloride ABG Glucose Oxyhemoglobin Carboxyhemoglobin Sodium Potassium Chloride Carbon Dioxide BUN Creatinine Glucose POC Glucose 153 H 185 H Calcium Phosphorus AST ALT Alkaline Phosphatase Lactate Dehydrogenase CK-MB (CK-2) CK-MB (CK-2) Rel Index Troponin T C-Reactive Protein NT-Pro-B Natriuret Pep Albumin HDL Cholesterol TSH Arterial Blood Glucose Arterial Blood Ionized Calcium Hepatitis C Antibody Crossmatch 07/31/20 07/31/20 07/31/20 05:17 11:48 17:20 WBC RBC Hgb Hct MCV RDW Plt Count Lymph % (Auto) [place] % (Auto) Lymph # (Auto) [place] # (Auto) Seg Neutrophils % Seg Neuts % (Manual) Lymphocytes % (Manual) Nucleated RBC % Seg Neutrophils # Man Lymphocytes # (Manual) PT INR APTT D-Dimer ABG pH POC ABG pCO2 POC ABG pO2 ABG pO2 ABG HCO3 ABG Base Excess ABG Hemoglobin ABG Oxyhemoglobin ABG Potassium ABG Chloride ABG Glucose Oxyhemoglobin Carboxyhemoglobin Sodium Potassium Chloride Carbon Dioxide BUN Creatinine Glucose POC Glucose 163 H 144 H 133 H Calcium Phosphorus AST ALT Alkaline Phosphatase Lactate Dehydrogenase CK-MB (CK-2) CK-MB (CK-2) Rel Index Troponin T C-Reactive Protein NT-Pro-B Natriuret Pep Albumin HDL Cholesterol TSH Arterial Blood Glucose Arterial Blood Ionized Calcium Hepatitis C Antibody Crossmatch 07/31/20 08/01/20 08/01/20 23:04 05:22 05:22 WBC RBC 2.26 L Hgb 7.0 L Hct 21.0 L MCV RDW 19.6 H Plt Count 85 L Lymph % (Auto) [place] % (Auto) Lymph # (Auto) [place] # (Auto) Seg Neutrophils % Seg Neuts % (Manual) Lymphocytes % (Manual) Nucleated RBC % Seg Neutrophils # Man Lymphocytes # (Manual) PT INR APTT D-Dimer ABG pH POC ABG pCO2 POC ABG pO2 ABG pO2 ABG HCO3 ABG Base Excess ABG Hemoglobin ABG Oxyhemoglobin ABG Potassium ABG Chloride ABG Glucose Oxyhemoglobin Carboxyhemoglobin Sodium 133 L Potassium Chloride Carbon Dioxide BUN 57 H Creatinine 4.4 H Glucose 166 H POC Glucose 140 H Calcium 7.8 L Phosphorus 5.10 H AST ALT Alkaline Phosphatase Lactate Dehydrogenase CK-MB (CK-2) CK-MB (CK-2) Rel Index Troponin T C-Reactive Protein NT-Pro-B Natriuret Pep Albumin HDL Cholesterol TSH Arterial Blood Glucose Arterial Blood Ionized Calcium Hepatitis C Antibody Crossmatch 08/01/20 08/01/20 08/01/20 05:49 11:18 17:33 WBC RBC Hgb Hct MCV RDW Plt Count Lymph % (Auto) [place] % (Auto) Lymph # (Auto) [place] # (Auto) Seg Neutrophils % Seg Neuts % (Manual) Lymphocytes % (Manual) Nucleated RBC % Seg Neutrophils # Man Lymphocytes # (Manual) PT INR APTT D-Dimer ABG pH POC ABG pCO2 POC ABG pO2 ABG pO2 ABG HCO3 ABG Base Excess ABG Hemoglobin ABG Oxyhemoglobin ABG Potassium ABG Chloride ABG Glucose Oxyhemoglobin Carboxyhemoglobin Sodium Potassium Chloride Carbon Dioxide BUN Creatinine Glucose POC Glucose 154 H 128 H 133 H Calcium Phosphorus AST ALT Alkaline Phosphatase Lactate Dehydrogenase CK-MB (CK-2) CK-MB (CK-2) Rel Index Troponin T C-Reactive Protein NT-Pro-B Natriuret Pep Albumin HDL Cholesterol TSH Arterial Blood Glucose Arterial Blood Ionized Calcium Hepatitis C Antibody Crossmatch 08/01/20 08/02/20 08/02/20 21:32 05:25 05:29 WBC RBC 2.14 L Hgb 6.7 L Hct 20.0 L MCV RDW 19.4 H Plt Count 104 L Lymph % (Auto) [place] % (Auto) Lymph # (Auto) [place] # (Auto) Seg Neutrophils % Seg Neuts % (Manual) Lymphocytes % (Manual) Nucleated RBC % Seg Neutrophils # Man Lymphocytes # (Manual) PT INR APTT D-Dimer ABG pH POC ABG pCO2 POC ABG pO2 ABG pO2 ABG HCO3 ABG Base Excess ABG Hemoglobin ABG Oxyhemoglobin ABG Potassium ABG Chloride ABG Glucose Oxyhemoglobin Carboxyhemoglobin Sodium Potassium Chloride Carbon Dioxide BUN Creatinine Glucose POC Glucose 139 H 145 H Calcium Phosphorus AST ALT Alkaline Phosphatase Lactate Dehydrogenase CK-MB (CK-2) CK-MB (CK-2) Rel Index Troponin T C-Reactive Protein NT-Pro-B Natriuret Pep Albumin HDL Cholesterol TSH Arterial Blood Glucose Arterial Blood Ionized Calcium Hepatitis C Antibody Crossmatch 08/02/20 08/03/20 08/03/20 18:09 04:00 04:00 WBC 11.6 H RBC 2.20 L Hgb 6.7 L Hct 20.4 L MCV RDW 18.8 H Plt Count 127 L Lymph % (Auto) [place] % (Auto) Lymph # (Auto) [place] # (Auto) Seg Neutrophils % Seg Neuts % (Manual) Lymphocytes % (Manual) Nucleated RBC % Seg Neutrophils # Man Lymphocytes # (Manual) PT INR APTT D-Dimer ABG pH POC ABG pCO2 POC ABG pO2 ABG pO2 ABG HCO3 ABG Base Excess ABG Hemoglobin ABG Oxyhemoglobin ABG Potassium ABG Chloride ABG Glucose Oxyhemoglobin Carboxyhemoglobin Sodium Potassium Chloride Carbon Dioxide BUN Creatinine Glucose POC Glucose 141 H Calcium Phosphorus AST ALT Alkaline Phosphatase Lactate Dehydrogenase CK-MB (CK-2) CK-MB (CK-2) Rel Index Troponin T C-Reactive Protein NT-Pro-B Natriuret Pep Albumin HDL Cholesterol TSH Arterial Blood Glucose Arterial Blood Ionized Calcium Hepatitis C Antibody Crossmatch See Detail 08/03/20 04:00 WBC RBC Hgb Hct MCV RDW Plt Count Lymph % (Auto) [place] % (Auto) Lymph # (Auto) [place] # (Auto) Seg Neutrophils % Seg Neuts % (Manual) Lymphocytes % (Manual) Nucleated RBC % Seg Neutrophils # Man Lymphocytes # (Manual) PT INR APTT D-Dimer ABG pH POC ABG pCO2 POC ABG pO2 ABG pO2 ABG HCO3 ABG Base Excess ABG Hemoglobin ABG Oxyhemoglobin ABG Potassium ABG Chloride ABG Glucose Oxyhemoglobin Carboxyhemoglobin Sodium Potassium Chloride Carbon Dioxide BUN 33 H Creatinine 2.7 H Glucose 101 H POC Glucose Calcium 8.0 L Phosphorus AST ALT Alkaline Phosphatase Lactate Dehydrogenase CK-MB (CK-2) CK-MB (CK-2) Rel Index Troponin T C-Reactive Protein NT-Pro-B Natriuret Pep Albumin HDL Cholesterol TSH Arterial Blood Glucose Arterial Blood Ionized Calcium Hepatitis C Antibody Crossmatch Allied health notes reviewed: nursing
[2020-08-03 10:05] LABS: Hematocrit 19.6 % (35.5-45.6)
--- NOTE | 2020-08-03 14:17 | Progress Note ---
Assessment and Plan Assessment and plan: -Acute on chronic kidney disease stage III Nephrology consulted, appreciate recommendations Vasomotor nephropathy, Nephrology initiated hemodialysis Management per nephrology, HD per schedule -Acute hypoxic respiratory failure Intubated 07/22/2020 s/p respiratory arrest CCM consulted, appreciate recommendations VAP bundle, wean as tolerated -Non-STEMI type II Likely secondary to respiratory failure, CKD Cardiology consulted, appreciate recommendations -Hyponatremia Electrolyte correction with HD -Acute toxic metabolic encephalopathy; CT head without contrast, no acute abnormality Neurology consulted, appreciate recommendations EEG findings compatible with sleep wake cycle 08/02 repeat EEG overall depressed, MRI brain pending -Severe protein calorie malnutrition/hypoalbuminemia, nutrition supplements, tube feeding, nutrition consult -Thrombocytopenia HIT antibodies negative Trend CBC -Hypothermia Symptomatic treatment -h/o right calf abscess -h/o MSSA sepsis Infectious disease consulted, appreciate recommendations s/p Unasyn, completed 07/24 -Type 2 diabetes mellitus Blood sugars in the lower range, avoid hypoglycemia Accu-Chek sliding scale coverage ADA diet Long-acting insulin as needed, HbA1c 8.3 last month -Acute on chronic systolic CHF EF 35 to 40% [04/2020] Continue antifailure medications Cardiology consulted, appreciate recommendations -History of seizure disorder Seizure precautions, continue Keppra -History of CVA; with residual weakness Fall precautions, PT OT as needed -DVT prophylaxis: thrombocytopenia, no anticoagulation. Continue SCDs -GI prophylaxis: PPI Dispo: ICU The high probability of a clinically significant, sudden or life threatening deterioration of the [multi] system(s) required my full and direct attention, intervention and personal management. The aggregate critical care time was [35] minutes. This time is in addition to time spent performing reported procedures but includes the following: [x] Data Review and interpretation [x] Patient assessment and monitoring of vital signs [x] Documentation [x] Medication orders and management History Interval history: This is 65-year-old male with diabetes mellitus, chronic kidney disease, CVA with residual weakness admitted to the hospitalist service with altered level consciousness and unresponsiveness. Patient started to be in sepsis secondary to MSSA bacteremia long-term antibiotics and his renal function progressively deteriorated. Patient initially refused outpatient dialysis then went into respiratory arrest requiring intubation and mechanical ventilation and was transferred to ICU. Patient family gave consent for hemodialysis and the patient remains intubated in the ICU. [facility], nephrology, cardiology and vascular surgery were consulted for care. Sepsis Acute on chronic kidney disease stage III Acute hypoxic respiratory failure NSTEMI type II Hyponatremia Anemia of chronic disease Acute toxic metabolic encephalopathy Severe protein calorie malnutrition/hypoalbuminemia Thrombocytopenia MSSA sepsis Type 2 diabetes mellitus Acute on chronic systolic congestive heart failure, EF 30 to 45% Seizure disorder CVA 07/19/2020; unable to pass Ayala catheter, consulted urology, continue supportive care, COVID-19 test negative 07/20/2020; urology evaluation recommendation noted and appreciated. Ayala catheter was inserted by urology, draining well, MSSA bacteremia on long-term antibiotics 07/21/2020; patient is lethargic, CT head without contrast, no acute abnormality, Patient is afebrile 07/22/2020; patient had acute respiratory failure this morning. JEFFERY IBARRA was called, patient was intubated on ventilatory support, pulmonary critical consulted, family patients aunt informed 07/23/2020; patient has severe bradycardia this morning, received atropine, Cardiology following. Beta-blockers held, electrolytes corrected. Patient's heart rate improved to 50s and 60s Cardiology following. Nephrology planning hemodialysis trying to get consent from family 07/24/2020; patient received hemodialysis yesterday. Remains intubated on ventilatory support. Bradycardia significantly improved heart rate in 60s. Completed 6 weeks of Unasyn for MSSA sepsis today 07/25/2020; patient remains on ventilatory support. Receiving HD per schedule dual. Wean as tolerated and extubate 07/26/2020; patient remains on ventilatory support, wean as tolerated and extubate. Initiated hemodialysis, HD per schedule, new set of blood culture sent 07/30: No acute events reported overnight. Patient remains unresponsive without sedation in the CT head was obtained which showed interval development of extensive hypoattenuation in the cerebral white matter, corpus callosum, globus thalami and probable indented nuclei finding likely test of global hypoxic ischemic injury with no acute hemorrhage or mass-effect. We consulted neurology and ordered an EEG for further work-up. no acute events reported overnight. He remains on MV. 07/31: PSV trials, HD per renal, bear hugger in place is unable to obtain temperature. Neurology consult and EEG pending. No acute events reported overnight. No acute events reported overnight. 08/01: This morning patient still has his giuseppe hugger in place, remains hyponatremic and hypokalemic and hypophosphatemic. Patient's H/H is 11/28. Patient remains on CMV 450-12-6/0.25 at the time of examination. Patient's CT head showed hypoxia/ischemic brain injury however his EEG was interpreted as normal awake and sleep pattern. Patient was given a trial dose of Narcan for CCM without improvement. Will order repeat EEG per neurology. No acute events reported overnight. 08/02: Patient had a repeat EEG which showed depressed activity and an MRI brain is pending. Patient's H/H is 6.7/20 and we will transfuse PRBC with HD to avoid volume overload. At the time of my examination patient was on CMV 450/12/6/0.25. Patient was given 1 mg Ativan for relaxation to better assess source of bloody secretions in mouth. 08/03: MRI of brain pending, hemoglobin remained at 6.7 and patient will be transfused 1 unit PRBC today with hemodialysis we will obtain a posttransfusion H/H. At the time my examination patient remains on CMV 450/12/6/0.40 with no improvement to neuro status. Hospitalist Physical - Constitutional Vitals: Temp Pulse Resp BP Pulse Ox 99.1 F 63 12 111/67 100 08/03/20 07:45 08/03/20 12:38 08/03/20 12:38 08/03/20 10:00 08/03/20 12:38 General appearance: Present: no acute distress, well-nourished - EENT Eyes: Present: PERRL ENT: poor dentition - Neck Neck: Absent: masses or JVD, cervical LAD - Respiratory Respiratory effort: normal Respiratory: bilateral: diminished - Cardiovascular Rhythm: regular Heart Sounds: Present: S1 & S2. Absent: systolic murmur, diastolic murmur - Extremities Extremities: no ischemia, pulses intact, pulses symmetrical, normal temperature, normal color Peripheral Pulses: within normal limits - Abdominal General gastrointestinal: soft, non-tender, non-distended - Integumentary Integumentary: Present: warm, dry - Psychiatric Psychiatric: other (Minimal response with painful stimulation) - Neurologic Neurologic: other ( minimal response with stimulation minimal response with stimulation) HEART Score - HEART Score Troponin: Troponin T 0.047 ng/mL (0.00-0.029) H 07/22/20 10:30 Results - Labs CBC & Chem 7: 08/03/20 09:30 08/03/20 04:00 Labs: Laboratory Last Values WBC 11.6 K/mm3 (4.5-11.0) H 08/03/20 04:00 RBC 2.20 M/mm3 (3.65-5.03) L 08/03/20 04:00 Hgb 6.6 gm/dl (11.8-15.2) L 08/03/20 09:30 Hct 19.6 % (35.5-45.6) L* 08/03/20 09:30 MCV 93 fl (84-94) 08/03/20 04:00 MCH 30 pg (28-32) 08/03/20 04:00 MCHC 33 % (32-34) 08/03/20 04:00 RDW 18.8 % (13.2-15.2) H 08/03/20 04:00 Plt Count 127 K/mm3 (140-440) L 08/03/20 04:00 Lymph % (Auto) 15.7 % (13.4-35.0) 07/28/20 04:00 Webb % (Auto) 9.1 % (0.0-7.3) H 07/28/20 04:00 Eos % (Auto) 0.4 % (0.0-4.3) 07/28/20 04:00 Baso % (Auto) 0.3 % (0.0-1.8) 07/28/20 04:00 Lymph # (Auto) 1.6 K/mm3 (1.2-5.4) 07/28/20 04:00 Webb # (Auto) 0.9 K/mm3 (0.0-0.8) H 07/28/20 04:00 Eos # (Auto) 0.0 K/mm3 (0.0-0.4) 07/28/20 04:00 Baso # (Auto) 0.0 K/mm3 (0.0-0.1) 07/28/20 04:00 Add Manual Diff Complete 07/27/20 06:36 Total Counted 100 07/27/20 06:36 Seg Neutrophils % 74.5 % (40.0-70.0) H 07/28/20 04:00 Seg Neuts % (Manual) 88.0 % (40.0-70.0) H 07/27/20 06:36 Lymphocytes % (Manual) 11.0 % (13.4-35.0) L 07/27/20 06:36 Monocytes % (Manual) 1.0 % (0.0-7.3) 07/27/20 06:36 Nucleated RBC % 2.0 % (0.0-0.9) H 07/27/20 06:36 Seg Neutrophils # 7.7 K/mm3 (1.8-7.7) 07/28/20 04:00 Seg Neutrophils # Man 8.9 K/mm3 (1.8-7.7) H 07/27/20 06:36 Band Neutrophils # 0.0 K/mm3 07/27/20 06:36 Lymphocytes # (Manual) 1.1 K/mm3 (1.2-5.4) L 07/27/20 06:36 Abs React Lymphs (Man) 0.0 K/mm3 07/27/20 06:36 Monocytes # (Manual) 0.1 K/mm3 (0.0-0.8) 07/27/20 06:36 Eosinophils # (Manual) 0.0 K/mm3 (0.0-0.4) 07/27/20 06:36 Basophils # (Manual) 0.0 K/mm3 (0.0-0.1) 07/27/20 06:36 Metamyelocytes # 0.0 K/mm3 07/27/20 06:36 Myelocytes # 0.0 K/mm3 07/27/20 06:36 Promyelocytes # 0.0 K/mm3 07/27/20 06:36 Blast Cells # 0.0 K/mm3 07/27/20 06:36 WBC Morphology Not Reportable 07/27/20 06:36 Hypersegmented Neuts Not Reportable 07/27/20 06:36 Hyposegmented Neuts Not Reportable 07/27/20 06:36 Hypogranular Neuts Not Reportable 07/27/20 06:36 Smudge Cells Not Reportable 07/27/20 06:36 Toxic Granulation Not Reportable 07/27/20 06:36 Toxic Vacuolation Not Reportable 07/27/20 06:36 Dohle Bodies Not Reportable 07/27/20 06:36 Pelger-Huet Anomaly Not Reportable 07/27/20 06:36 Clint Rods Not Reportable 07/27/20 06:36 Platelet Estimate Consistent w auto 07/27/20 06:36 Clumped Platelets Not Reportable 07/27/20 06:36 Plt Clumps, EDTA Not Reportable 07/27/20 06:36 Large Platelets Not Reportable 07/27/20 06:36 Giant Platelets Not Reportable 07/27/20 06:36 Platelet Satelliting Not Reportable 07/27/20 06:36 Plt Morphology Comment Not Reportable 07/27/20 06:36 RBC Morphology Not Reportable 07/27/20 06:36 Dimorphic RBCs Not Reportable 07/27/20 06:36 Polychromasia Not Reportable 07/27/20 06:36 Hypochromasia Not Reportable 07/27/20 06:36 Poikilocytosis Not Reportable 07/27/20 06:36 Anisocytosis Few 07/27/20 06:36 Microcytosis Not Reportable 07/27/20 06:36 Macrocytosis Not Reportable 07/27/20 06:36 Spherocytes Not Reportable 07/27/20 06:36 Pappenheimer Bodies Not Reportable 07/27/20 06:36 Sickle Cells Not Reportable 07/27/20 06:36 Target Cells Not Reportable 07/27/20 06:36 Tear Drop Cells Not Reportable 07/27/20 06:36 Ovalocytes Not Reportable 07/27/20 06:36 Helmet Cells Not Reportable 07/27/20 06:36 [place] Bodies Not Reportable 07/27/20 06:36 [place] Rings Not Reportable 07/27/20 06:36 Sae Cells Not Reportable 07/27/20 06:36 Bite Cells Not Reportable 07/27/20 06:36 Crenated Cell Not Reportable 07/27/20 06:36 Elliptocytes Not Reportable 07/27/20 06:36 Acanthocytes (Spur) Not Reportable 07/27/20 06:36 Rouleaux Not Reportable 07/27/20 06:36 Hemoglobin C Crystals Not Reportable 07/27/20 06:36 Schistocytes Rare 07/27/20 06:36 Malaria parasites Not Reportable 07/27/20 06:36 Carl Bodies Not Reportable 07/27/20 06:36 Hem Pathologist Commnt No 07/27/20 06:36 PT 15.9 Sec. (12.2-14.9) H 07/22/20 10:30 INR 1.27 (0.87-1.13) H 07/22/20 10:30 APTT 38.3 Sec. (24.2-36.6) H 07/22/20 10:30 D-Dimer 1036.46 ng/mlDDU (0-234) H 07/18/20 08:56 Heparin Anti-Xa, Unfract Negative (Negative) 07/23/20 08:54 ABG pH 7.520 pH Units (7.350-7.450) H 07/27/20 05:20 POC ABG pCO2 32.7 mmHg (32.0-48.0) 07/25/20 03:57 ABG pCO2 33.5 mm Hg 07/27/20 05:20 POC ABG pO2 62.7 mmHg (83-108) L 07/25/20 03:57 ABG pO2 64.2 mm Hg (80.0-90.0) L 07/27/20 05:20 POC ABG HCO3 24.8 07/25/20 03:57 ABG HCO3 26.8 mmol/L (20.0-26.0) H 07/27/20 05:20 ABG O2 Saturation 95.8 % (95.0-99.0) 07/27/20 05:20 ABG O2 Content 9.5 (0.0-44) 07/27/20 05:20 POC ABG Base Excess 1.7 07/25/20 03:57 ABG Base Excess 3.7 mmol/L (-2.0-3.0) H 07/27/20 05:20 ABG Hemoglobin 7.2 gm/dl (14.0-18.0) L 07/27/20 05:20 ABG Oxyhemoglobin 90.1 (94-98) L 07/25/20 03:57 ABG Carboxyhemoglobin 2.3 % (0.0-5.0) 07/27/20 05:20 ABG Methemoglobin 0.5 % (0.0-1.5) 07/27/20 05:20 ABG Sodium 138.7 mmol/L (136.0-145.0) 07/25/20 03:57 ABG Potassium 4.0 mmol/L (3.40-4.50) 07/25/20 03:57 ABG Chloride 110.0 mmol/L (98-107) H 07/25/20 03:57 ABG Glucose 157 mg/dL (65-95) H 07/25/20 03:57 Oxyhemoglobin 93.2 % (95.0-99.0) L 07/27/20 05:20 Carboxyhemoglobin 1.1 (0.5-1.5) 07/25/20 03:57 FiO2 25 % 07/27/20 05:20 FiO2 % 40 07/25/20 03:57 Sodium 139 mmol/L (137-145) 08/03/20 04:00 Potassium 3.6 mmol/L (3.6-5.0) 08/03/20 04:00 Chloride 101.5 mmol/L (98-107) 08/03/20 04:00 Carbon Dioxide 30 mmol/L (22-30) 08/03/20 04:00 Anion Gap 11 mmol/L 08/03/20 04:00 BUN 33 mg/dL (9-20) H 08/03/20 04:00 Creatinine 2.7 mg/dL (0.8-1.3) H 08/03/20 04:00 Estimated GFR 29 ml/min 08/03/20 04:00 BUN/Creatinine Ratio 12 % 08/03/20 04:00 Glucose 101 mg/dL (75-100) H 08/03/20 04:00 POC Glucose 117 mg/dL (70-105) H 08/03/20 05:33 Lactic Acid 0.80 mmol/L (0.7-2.0) 07/18/20 08:56 Calcium 8.0 mg/dL (8.4-10.2) L 08/03/20 04:00 Phosphorus 3.40 mg/dL (2.5-4.5) 08/03/20 04:00 Magnesium 1.80 mg/dL (1.7-2.3) 08/03/20 04:00 Ferritin 198.6 ng/mL (30.0-300.0) 07/18/20 10:36 Total Bilirubin 0.30 mg/dL (0.1-1.2) 07/22/20 10:30 Direct Bilirubin 0.2 mg/dL (0-0.2) 07/19/20 06:00 Indirect Bilirubin 0.2 mg/dL 07/19/20 06:00 AST 66 units/L (5-40) H 07/22/20 10:30 ALT < 5 units/L (7-56) L 07/22/20 10:30 Alkaline Phosphatase 604 units/L (35-129) H 07/22/20 10:30 Ammonia 41.0 umol/L (25-60) 07/18/20 08:56 Lactate Dehydrogenase 212 units/L (91-180) H 07/18/20 10:36 Total Creatine Kinase 67 units/L (55-170) 07/22/20 10:30 CK-MB (CK-2) 10.9 ng/mL (0.0-4.0) H 07/22/20 10:30 CK-MB (CK-2) Rel Index 16.2 (0-4) H 07/22/20 10:30 Troponin T 0.047 ng/mL (0.00-0.029) H 07/22/20 10:30 C-Reactive Protein 2.10 mg/dL (0.00-1.30) H 07/18/20 10:36 NT-Pro-B Natriuret Pep 4777 pg/mL (0-900) H 07/18/20 08:56 Total Protein 6.4 g/dL (6.3-8.2) 07/22/20 10:30 Albumin 2.1 g/dL (3.9-5) L 07/22/20 10:30 Albumin/Globulin Ratio 0.5 % 07/22/20 10:30 Triglycerides 65 mg/dL (2-149) 07/18/20 08:56 Cholesterol 157 mg/dL (50-199) 07/18/20 08:56 LDL Cholesterol Direct 95 mg/dL (50-130) 07/18/20 08:56 HDL Cholesterol 67 mg/dL (40-59) H 07/18/20 08:56 Cholesterol/HDL Ratio 2.34 % 07/18/20 08:56 Procalcitonin 0.10 ng/mL (<0.15) 07/18/20 10:36 TSH 5.520 mlU/mL (0.270-4.200) H 07/18/20 08:56 Free T4 0.84 ng/dL (0.76-1.46) 07/18/20 08:56 Arterial Blood Glucose 157 mg/dL (65-95) H 07/25/20 03:57 Arterial Blood Ionized Calcium 4.3 mg/dL (4.6-5.3) L 07/25/20 03:57 Random Vancomycin 11.5 ug/mL (0-40.0) 07/28/20 05:00 Heparin-induced Plt Ab Negative (Negative) 07/23/20 08:54 UF Heparin High Dose 0 % Release 07/23/20 08:54 MAGEN UFH Low Dose 0.1 0 % Release 07/23/20 08:54 MAGEN UFH Low Dose 0.5 0 % Release 07/23/20 08:54 Coronavirus (PCR) Negative (Negative) 07/18/20 12:07 Hepatitis A IgM Ab Non-reactive (NonReactive) 07/23/20 19:20 Hep Bs Antigen Non-reactive (Negative) 07/23/20 19:20 Hep B Core IgM Ab Non-reactive (NonReactive) 07/23/20 19:20 Hepatitis C Antibody Reactive (NonReactive) A 07/23/20 19:20 Blood Type A POSITIVE 08/03/20 04:00 Antibody Screen Negative 08/03/20 04:00 Crossmatch See Detail 08/03/20 04:00 Microbiology: Microbiology 07/18/20 09:00 Peripheral/Venous Blood Culture - Final Enterococcus Faecium 07/31/20 10:06 Sputum - Expectorated Sputum Sputum Culture - Final Ayala/IV: Voiding Method Incontinent Active Medications - Current Medications Current Medications: Generic Name Dose Route Start Last Admin Trade Name Freq PRN Reason Stop Dose Admin Lipase/Protease/Amylase 1 each 07/23/20 14:17 Lipase 10,500/Protease 25,000/Amylase 43,750 (Units) Dr Shell FEEDTUBE PRN PRN For Clogged Feeding Tube Aspirin 81 mg 08/01/20 10:00 08/03/20 09:19 Aspirin 81 Mg Tab Chew PO 81 mg QDAY JODIE Administration Atropine Sulfate 1 mg 07/23/20 09:03 07/23/20 22:15 Atropine 0.1% (1 Mg/10 Ml) Cardiac Syringe IV 1 mg PRN PRN Administration Bradycardia Dextrose 50 ml 07/23/20 03:28 07/23/20 06:00 Dextrose 50% In Water (25gm) 50 Ml Syringe IV 50 ml Q30MIN PRN Administration Hypoglycemia Protocol Famotidine 20 mg 07/18/20 22:00 08/03/20 09:19 Famotidine 20 Mg Tab PO 20 mg DAILY JODIE Administration Folic Acid 1 mg 07/19/20 10:00 08/03/20 09:21 Folic Acid 1 Mg Tab PO 1 mg DAILY JODIE Administration Hydralazine HCl 50 mg 07/18/20 14:00 08/03/20 08:24 Hydralazine 25 Mg Tab PO Not Given Q8HR JODIE Hydralazine HCl 20 mg 07/22/20 14:02 Hydralazine 20 Mg/1 Ml Inj IV Q4HR PRN Blood Pressure Hydrophilic Ointment 1 applic 07/22/20 10:02 Lip Therapy Vaseline TP Q2HR PRN Dry Lips Norepinephrine 4 mg in 250 mls @ 7.5 mls/hr 07/24/20 10:00 07/24/20 15:35 Levophed Drip 4 Mg/Ns 250 Ml IV 0 mcg/min TITR JODIE 0 mls/hr Titration Protocol 2 MCG/MIN Sodium Chloride 100 mls @ 999 mls/hr 07/31/20 08:21 Nacl 0.9% IV FRANCISCO PRN Hypotension Sodium Chloride 500 mls @ 0 mls/hr 08/03/20 08:44 Nacl 0.9% 500 Ml IV 08/03/20 23:59 ONCE NR As Directed Insulin Glargine 5 units 08/03/20 22:00 Insulin Glargine 100 Units/Ml SUB-Q QHS [facility] Insulin Human Lispro 0 unit 07/26/20 10:00 08/03/20 08:25 Insulin Lispro 100 Unit/Ml SUB-Q Not Given Q6HR [facility] Protocol Levetiracetam 750 mg 07/18/20 22:00 08/03/20 09:20 Levetiracetam 500 Mg/5 Ml Oral Liqd PO 750 mg BID [facility] Administration Multi-Ingred Cream/Lotion/Oil/Oint 1 applic 07/22/20 10:02 Mineral Oil/Petrolatum, White Ophth Oint 3.5 Gm OU Q4HR PRN Dry Eye(s) Scopolamine 1 each 07/31/20 10:00 08/03/20 09:19 Scopolamine Transdermal Patch 72 Hr TD 1 each Q3D JODIE Administration Simple Syrup 15 ml 07/23/20 14:17 Simple Syrup 15 Ml FEEDTUBE PRN PRN Hypoglycemia Simple Syrup 30 ml 07/23/20 14:17 Simple Syrup 15 Ml FEEDTUBE PRN PRN Hypoglycemia Sodium Bicarbonate 325 mg 07/23/20 14:17 Sodium Bicarbonate 325 Mg Tab FEEDTUBE PRN PRN For Clogged Feeding Tube Thiamine HCl 100 mg 07/19/20 10:00 08/03/20 09:20 Thiamine 100 Mg Tab PO 100 mg QDAY JODIE Administration Nutrition/Malnutrition Assess - Dietary Evaluation Nutrition/Malnutrition Findings: Nutrition Notes Start: 07/19/20 09:53 Freq: Status: Active Protocol: Document 08/03/20 12:31 LP (Rec: 08/03/20 12:34 LP [id number]) Nutrition Notes Initial or Follow up Reassessment Current Diagnosis CKD(stage I-IV),Diabetes, Sepsis,Heart Failure, Respiratory Failure,Stroke Other Pertinent Diagnosis On HD,Acute toxic metabolic encephalopathy, Bradycardia, ( R) LE wound, Current Diet Nepro 1.8 at 50 ml/hr Labs/Tests Reviewed Pertinent Medications Reviewed Height 5 ft 9 in Weight 101.3 kg [place] Body Weight (kg) 72.72 BMI 33.0 Weight Status Obese Subjective/Other Information Pt tolerating TF at goal rate. Percent of energy/protein needs met: 100%/67% Burn Absent Trauma Absent Difficulty In Swallowing Skin Integrity/Comment Diabetic ulcers to BLE Current % PO Negligible Minimum of two criteria Yes Body Fat Depletion Mild depletion (non-severe) Muscle Mass Mild Depletion (non-severe) Fluid Accumulation Moderate to Severe (severe) #2 Nutrition Diagnosis Malnutrition Etiology Unknown As Evidenced by Signs and Symptoms Observed muscle and fat mass depletion, fluid accumulation #1 Nutrition Diagnosis Inadequate oral intake Diagnosis Progress(for reassessment Continues documentation) Is patient on ventilator? Yes Is Patient Ambulatory and/or Out of Bed No REE-([facility]-confined to bed) 2168.784 Kcal/Kg value to use for calculation 18 Approximate Energy Requirements Using 1823 kcal/Kg Calculation Used for Recommendations Kcal/kg Additional Notes Protein needs: >144g (>2.0 g/ kgIBW) Fluid needs 1000 - 1500 ml/day Nutrition Intervention Change Diet Order: TF Nutrition Support: Increase Nepro at 50 ml/h with a free water flush of 125 ml q4h. Kcal 2,160 Protein (gm) 97 Fluid (mL) 872 Add Supplement/Snack (indicate name/kcal Pawel BID /protein ) Provides kCal: 190 Provides Protein (gm) 5 Goal #1 TF tolerance Goal #2 Meet at estimated energy and protein needs as best as possible. Anticipated Discharge Needs: Unable to determine at this time Follow-Up By: 08/06/20 Additional Comments Follow for stable TF
--- NOTE | 2020-08-03 14:58 | XRay Report ---
CHEST 1 VIEW INDICATION: intubated COMPARISON: 2020 FINDINGS: SUPPORT DEVICES: Endotracheal tubes in good position. Nasogastric tube has tip in stomach. Central li ne has tip in superior vena cava. HEART / MEDIASTINUM: No significant abnormality. LUNGS / PLEURA: Airspace changes present left lower lobe with associated moderate size left pleural e ffusion. Small right pleural effusion is present. No pneumothorax. ADDITIONAL FINDINGS: IMPRESSION: 1. Bilateral pleural effusions Signer Name: Ciro Kessler MD Signed: 08/03/2020 2:54 PM Workstation Name: [id number]
[2020-08-03] MEDS ORDERED: SODIUM CHLORIDE 0.9% 100 ML IV PRN (15:05)
[2020-08-03] MEDS: INSULIN GLARGINE 100 UNITS/ML SUB-Q SCH (21:29)
[2020-08-04 05:54] LABS: Hematocrit 24.1 % (35.5-45.6); Mean Corpuscular HGB Conc 33 % (32-34); Mean Corpuscular Volume 93 fl (84-94); Platelet Count 188 K/mm3 (140-440); Red Blood Count 2.59 M/mm3 (3.65-5.03); Red Cell Distribution Width 17.4 % (13.2-15.2)
[2020-08-04] MEDS: INSULIN LISPRO 100 UNIT/ML SUB-Q SCH ×5 (06:51→18:34)
[2020-08-04] MEDS: hydrALAZINE 25 MG TAB PO SCH ×3 (06:53→23:20)
--- NOTE | 2020-08-04 10:14 | Progress Note ---
Assessment and Plan Assessment and plan: Acute on chronic kidney disease stage III Nephrology consulted, appreciate recommendations Vasomotor nephropathy, Nephrology initiated hemodialysis Management per nephrology, HD per schedule -Acute hypoxic respiratory failure Intubated 07/22/2020 s/p respiratory arrest CCM consulted, appreciate recommendations VAP bundle, wean as tolerated -Non-STEMI type II Likely secondary to respiratory failure, CKD Cardiology consulted, appreciate recommendations -Hyponatremia Electrolyte correction with HD -Acute toxic metabolic encephalopathy; CT head without contrast, no acute abnormality Neurology consulted, appreciate recommendations EEG findings compatible with sleep wake cycle 08/02 repeat EEG overall depressed, MRI brain pending -Severe protein calorie malnutrition/hypoalbuminemia, nutrition supplements, tube feeding, nutrition consult -Thrombocytopenia HIT antibodies negative Trend CBC -Hypothermia Symptomatic treatment -h/o right calf abscess -h/o MSSA sepsis Infectious disease consulted, appreciate recommendations s/p Unasyn, completed 07/24 -Type 2 diabetes mellitus Blood sugars in the lower range, avoid hypoglycemia Accu-Chek sliding scale coverage ADA diet Long-acting insulin as needed, HbA1c 8.3 last month -Acute on chronic systolic CHF EF 35 to 40% [04/2020] Continue antifailure medications Cardiology consulted, appreciate recommendations -History of seizure disorder Seizure precautions, continue Keppra -History of CVA; with residual weakness Fall precautions, PT OT as needed -DVT prophylaxis: thrombocytopenia, no anticoagulation. Continue SCDs -GI prophylaxis: PPI Dispo: ICU The high probability of a clinically significant, sudden or life threatening deterioration of the [multi] system(s) required my full and direct attention, intervention and personal management. The aggregate critical care time was [35] minutes. This time is in addition to time spent performing reported procedures but includes the following: [x] Data Review and interpretation [x] Patient assessment and monitoring of vital signs [x] Documentation [x] Medication orders and management History Interval history: This is 65-year-old male with diabetes mellitus, chronic kidney disease, CVA with residual weakness admitted to the hospitalist service with altered level consciousness and unresponsiveness. Patient started to be in sepsis secondary to MSSA bacteremia long-term antibiotics and his renal function progressively deteriorated. Patient initially refused outpatient dialysis then went into respiratory arrest requiring intubation and mechanical ventilation and was transferred to ICU. Patient family gave consent for hemodialysis and the patient remains intubated in the ICU. [facility], nephrology, cardiology and vascular surgery were consulted for care. Sepsis Acute on chronic kidney disease stage III Acute hypoxic respiratory failure NSTEMI type II Hyponatremia Anemia of chronic disease Acute toxic metabolic encephalopathy Severe protein calorie malnutrition/hypoalbuminemia Thrombocytopenia MSSA sepsis Type 2 diabetes mellitus Acute on chronic systolic congestive heart failure, EF 30 to 45% Seizure disorder CVA 07/19/2020; unable to pass Ayala catheter, consulted urology, continue supportive care, COVID-19 test negative 07/20/2020; urology evaluation recommendation noted and appreciated. Ayala catheter was inserted by urology, draining well, MSSA bacteremia on long-term antibiotics 07/21/2020; patient is lethargic, CT head without contrast, no acute abnormality, Patient is afebrile 07/22/2020; patient had acute respiratory failure this morning. JEFFERY IBARRA was called, patient was intubated on ventilatory support, pulmonary critical consulted, family patients aunt informed 07/23/2020; patient has severe bradycardia this morning, received atropine, Cardiology following. Beta-blockers held, electrolytes corrected. Patient's heart rate improved to 50s and 60s Cardiology following. Nephrology planning hemodialysis trying to get consent from family 07/24/2020; patient received hemodialysis yesterday. Remains intubated on ventilatory support. Bradycardia significantly improved heart rate in 60s. Completed 6 weeks of Unasyn for MSSA sepsis today 07/25/2020; patient remains on ventilatory support. Receiving HD per schedule dual. Wean as tolerated and extubate 07/26/2020; patient remains on ventilatory support, wean as tolerated and extubate. Initiated hemodialysis, HD per schedule, new set of blood culture sent 07/30: No acute events reported overnight. Patient remains unresponsive without sedation in the CT head was obtained which showed interval development of extensive hypoattenuation in the cerebral white matter, corpus callosum, globus thalami and probable indented nuclei finding likely test of global hypoxic ischemic injury with no acute hemorrhage or mass-effect. We consulted neurology and ordered an EEG for further work-up. no acute events reported overnight. He remains on MV. 07/31: PSV trials, HD per renal, bear hugger in place is unable to obtain temperature. Neurology consult and EEG pending. No acute events reported overnight. No acute events reported overnight. 08/01: This morning patient still has his giuseppe hugger in place, remains hyponatremic and hypokalemic and hypophosphatemic. Patient's H/H is 11/28. Patient remains on CMV 450-12-6/0.25 at the time of examination. Patient's CT head showed hypoxia/ischemic brain injury however his EEG was interpreted as normal awake and sleep pattern. Patient was given a trial dose of Narcan for CCM without improvement. Will order repeat EEG per neurology. No acute events reported overnight. 08/02: Patient had a repeat EEG which showed depressed activity and an MRI brain is pending. Patient's H/H is 6.7/20 and we will transfuse PRBC with HD to avoid volume overload. At the time of my examination patient was on CMV 450/12/6/0.25. Patient was given 1 mg Ativan for relaxation to better assess source of bloody secretions in mouth. 08/03: MRI of brain pending, hemoglobin remained at 6.7 and patient will be transfused 1 unit PRBC today with hemodialysis we will obtain a posttransfusion H/H. At the time my examination patient remains on CMV 450/12/6/0.40 with no improvement to neuro status. 08/04/2020; MRI of the brain was done but reading is pending. He was transfused a unit of blood and hemoglobin this morning was 8. Patient has low-grade fever. Neurology is following. Prognosis very poor History Interval history: Patient was seen and evaluated this morning Patient was intubated, nonresponsive Hospitalist Physical - Physical exam Narrative exam: Patient is on mechanical ventilation The patient appeared well nourished and normally developed. Vital signs as documented. Head exam is unremarkable. No scleral icterus . Neck is without jugular venous distension, thyromegaly, or carotid bruits. Lungs are clear to auscultation. Cardiac exam reveals regular rate and Rhythm. Abdominal exam reveals normal bowel sounds, nontender, no organomegaly. Extremities are nonedematous and both femoral and pedal pulses are normal. 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: Unresponsive - Constitutional Vitals: Temp Pulse Resp BP Pulse Ox 100.8 F H 95 H 18 111/58 100 08/04/20 08:00 08/04/20 10:00 08/04/20 10:00 08/04/20 10:00 08/04/20 10:00 General appearance: Present: no acute distress, well-nourished HEART Score - HEART Score Troponin: Troponin T 0.047 ng/mL (0.00-0.029) H 07/22/20 10:30 Results - Labs CBC & Chem 7: 08/04/20 05:24 08/03/20 04:00 Labs: Laboratory Last Values WBC 12.8 K/mm3 (4.5-11.0) H 08/04/20 05:24 RBC 2.59 M/mm3 (3.65-5.03) L 08/04/20 05:24 Hgb 8.0 gm/dl (11.8-15.2) L 08/04/20 05:24 Hct 24.1 % (35.5-45.6) L 08/04/20 05:24 MCV 93 fl (84-94) 08/04/20 05:24 MCH 31 pg (28-32) 08/04/20 05:24 MCHC 33 % (32-34) 08/04/20 05:24 RDW 17.4 % (13.2-15.2) H 08/04/20 05:24 Plt Count 188 K/mm3 (140-440) 08/04/20 05:24 Lymph % (Auto) 15.7 % (13.4-35.0) 07/28/20 04:00 Stevens % (Auto) 9.1 % (0.0-7.3) H 07/28/20 04:00 Eos % (Auto) 0.4 % (0.0-4.3) 07/28/20 04:00 Baso % (Auto) 0.3 % (0.0-1.8) 07/28/20 04:00 Lymph # (Auto) 1.6 K/mm3 (1.2-5.4) 07/28/20 04:00 Stevens # (Auto) 0.9 K/mm3 (0.0-0.8) H 07/28/20 04:00 Eos # (Auto) 0.0 K/mm3 (0.0-0.4) 07/28/20 04:00 Baso # (Auto) 0.0 K/mm3 (0.0-0.1) 07/28/20 04:00 Add Manual Diff Complete 07/27/20 06:36 Total Counted 100 07/27/20 06:36 Seg Neutrophils % 74.5 % (40.0-70.0) H 07/28/20 04:00 Seg Neuts % (Manual) 88.0 % (40.0-70.0) H 07/27/20 06:36 Lymphocytes % (Manual) 11.0 % (13.4-35.0) L 07/27/20 06:36 Monocytes % (Manual) 1.0 % (0.0-7.3) 07/27/20 06:36 Nucleated RBC % 2.0 % (0.0-0.9) H 07/27/20 06:36 Seg Neutrophils # 7.7 K/mm3 (1.8-7.7) 07/28/20 04:00 Seg Neutrophils # Man 8.9 K/mm3 (1.8-7.7) H 07/27/20 06:36 Band Neutrophils # 0.0 K/mm3 07/27/20 06:36 Lymphocytes # (Manual) 1.1 K/mm3 (1.2-5.4) L 07/27/20 06:36 Abs React Lymphs (Man) 0.0 K/mm3 07/27/20 06:36 Monocytes # (Manual) 0.1 K/mm3 (0.0-0.8) 07/27/20 06:36 Eosinophils # (Manual) 0.0 K/mm3 (0.0-0.4) 07/27/20 06:36 Basophils # (Manual) 0.0 K/mm3 (0.0-0.1) 07/27/20 06:36 Metamyelocytes # 0.0 K/mm3 07/27/20 06:36 Myelocytes # 0.0 K/mm3 07/27/20 06:36 Promyelocytes # 0.0 K/mm3 07/27/20 06:36 Blast Cells # 0.0 K/mm3 07/27/20 06:36 WBC Morphology Not Reportable 07/27/20 06:36 Hypersegmented Neuts Not Reportable 07/27/20 06:36 Hyposegmented Neuts Not Reportable 07/27/20 06:36 Hypogranular Neuts Not Reportable 07/27/20 06:36 Smudge Cells Not Reportable 07/27/20 06:36 Toxic Granulation Not Reportable 07/27/20 06:36 Toxic Vacuolation Not Reportable 07/27/20 06:36 Dohle Bodies Not Reportable 07/27/20 06:36 Pelger-Huet Anomaly Not Reportable 07/27/20 06:36 Clint Rods Not Reportable 07/27/20 06:36 Platelet Estimate Consistent w auto 07/27/20 06:36 Clumped Platelets Not Reportable 07/27/20 06:36 Plt Clumps, EDTA Not Reportable 07/27/20 06:36 Large Platelets Not Reportable 07/27/20 06:36 Giant Platelets Not Reportable 07/27/20 06:36 Platelet Satelliting Not Reportable 07/27/20 06:36 Plt Morphology Comment Not Reportable 07/27/20 06:36 RBC Morphology Not Reportable 07/27/20 06:36 Dimorphic RBCs Not Reportable 07/27/20 06:36 Polychromasia Not Reportable 07/27/20 06:36 Hypochromasia Not Reportable 07/27/20 06:36 Poikilocytosis Not Reportable 07/27/20 06:36 Anisocytosis Few 07/27/20 06:36 Microcytosis Not Reportable 07/27/20 06:36 Macrocytosis Not Reportable 07/27/20 06:36 Spherocytes Not Reportable 07/27/20 06:36 Pappenheimer Bodies Not Reportable 07/27/20 06:36 Sickle Cells Not Reportable 07/27/20 06:36 Target Cells Not Reportable 07/27/20 06:36 Tear Drop Cells Not Reportable 07/27/20 06:36 Ovalocytes Not Reportable 07/27/20 06:36 Helmet Cells Not Reportable 07/27/20 06:36 [place] Bodies Not Reportable 07/27/20 06:36 El[place] Rings Not Reportable 07/27/20 06:36 [place] Cells Not Reportable 07/27/20 06:36 Bite Cells Not Reportable 07/27/20 06:36 Crenated Cell Not Reportable 07/27/20 06:36 Elliptocytes Not Reportable 07/27/20 06:36 Acanthocytes (Spur) Not Reportable 07/27/20 06:36 Rouleaux Not Reportable 07/27/20 06:36 Hemoglobin C Crystals Not Reportable 07/27/20 06:36 Schistocytes Rare 07/27/20 06:36 Malaria parasites Not Reportable 07/27/20 06:36 Carl Bodies Not Reportable 07/27/20 06:36 Hem Pathologist Commnt No 07/27/20 06:36 PT 15.9 Sec. (12.2-14.9) H 07/22/20 10:30 INR 1.27 (0.87-1.13) H 07/22/20 10:30 APTT 38.3 Sec. (24.2-36.6) H 07/22/20 10:30 D-Dimer 1036.46 ng/mlDDU (0-234) H 07/18/20 08:56 Heparin Anti-Xa, Unfract Negative (Negative) 07/23/20 08:54 ABG pH 7.520 pH Units (7.350-7.450) H 07/27/20 05:20 POC ABG pCO2 32.7 mmHg (32.0-48.0) 07/25/20 03:57 ABG pCO2 33.5 mm Hg 07/27/20 05:20 POC ABG pO2 62.7 mmHg (83-108) L 07/25/20 03:57 ABG pO2 64.2 mm Hg (80.0-90.0) L 07/27/20 05:20 POC ABG HCO3 24.8 07/25/20 03:57 ABG HCO3 26.8 mmol/L (20.0-26.0) H 07/27/20 05:20 ABG O2 Saturation 95.8 % (95.0-99.0) 07/27/20 05:20 ABG O2 Content 9.5 (0.0-44) 07/27/20 05:20 POC ABG Base Excess 1.7 07/25/20 03:57 ABG Base Excess 3.7 mmol/L (-2.0-3.0) H 07/27/20 05:20 ABG Hemoglobin 7.2 gm/dl (14.0-18.0) L 07/27/20 05:20 ABG Oxyhemoglobin 90.1 (94-98) L 07/25/20 03:57 ABG Carboxyhemoglobin 2.3 % (0.0-5.0) 07/27/20 05:20 ABG Methemoglobin 0.5 % (0.0-1.5) 07/27/20 05:20 ABG Sodium 138.7 mmol/L (136.0-145.0) 07/25/20 03:57 ABG Potassium 4.0 mmol/L (3.40-4.50) 07/25/20 03:57 ABG Chloride 110.0 mmol/L (98-107) H 07/25/20 03:57 ABG Glucose 157 mg/dL (65-95) H 07/25/20 03:57 Oxyhemoglobin 93.2 % (95.0-99.0) L 07/27/20 05:20 Carboxyhemoglobin 1.1 (0.5-1.5) 07/25/20 03:57 FiO2 25 % 07/27/20 05:20 FiO2 % 40 07/25/20 03:57 Sodium 139 mmol/L (137-145) 08/03/20 04:00 Potassium 3.6 mmol/L (3.6-5.0) 08/03/20 04:00 Chloride 101.5 mmol/L (98-107) 08/03/20 04:00 Carbon Dioxide 30 mmol/L (22-30) 08/03/20 04:00 Anion Gap 11 mmol/L 08/03/20 04:00 BUN 33 mg/dL (9-20) H 08/03/20 04:00 Creatinine 2.7 mg/dL (0.8-1.3) H 08/03/20 04:00 Estimated GFR 29 ml/min 08/03/20 04:00 BUN/Creatinine Ratio 12 % 08/03/20 04:00 Glucose 101 mg/dL (75-100) H 08/03/20 04:00 POC Glucose 128 mg/dL (70-105) H 08/04/20 05:21 Lactic Acid 0.80 mmol/L (0.7-2.0) 07/18/20 08:56 Calcium 8.0 mg/dL (8.4-10.2) L 08/03/20 04:00 Phosphorus 3.40 mg/dL (2.5-4.5) 08/03/20 04:00 Magnesium 1.80 mg/dL (1.7-2.3) 08/03/20 04:00 Ferritin 198.6 ng/mL (30.0-300.0) 07/18/20 10:36 Total Bilirubin 0.30 mg/dL (0.1-1.2) 07/22/20 10:30 Direct Bilirubin 0.2 mg/dL (0-0.2) 07/19/20 06:00 Indirect Bilirubin 0.2 mg/dL 07/19/20 06:00 AST 66 units/L (5-40) H 07/22/20 10:30 ALT < 5 units/L (7-56) L 07/22/20 10:30 Alkaline Phosphatase 604 units/L (35-129) H 07/22/20 10:30 Ammonia 41.0 umol/L (25-60) 07/18/20 08:56 Lactate Dehydrogenase 212 units/L (91-180) H 07/18/20 10:36 Total Creatine Kinase 67 units/L (55-170) 07/22/20 10:30 CK-MB (CK-2) 10.9 ng/mL (0.0-4.0) H 07/22/20 10:30 CK-MB (CK-2) Rel Index 16.2 (0-4) H 07/22/20 10:30 Troponin T 0.047 ng/mL (0.00-0.029) H 07/22/20 10:30 C-Reactive Protein 2.10 mg/dL (0.00-1.30) H 07/18/20 10:36 NT-Pro-B Natriuret Pep 4777 pg/mL (0-900) H 07/18/20 08:56 Total Protein 6.4 g/dL (6.3-8.2) 07/22/20 10:30 Albumin 2.1 g/dL (3.9-5) L 07/22/20 10:30 Albumin/Globulin Ratio 0.5 % 07/22/20 10:30 Triglycerides 65 mg/dL (2-149) 07/18/20 08:56 Cholesterol 157 mg/dL (50-199) 07/18/20 08:56 LDL Cholesterol Direct 95 mg/dL (50-130) 07/18/20 08:56 HDL Cholesterol 67 mg/dL (40-59) H 07/18/20 08:56 Cholesterol/HDL Ratio 2.34 % 07/18/20 08:56 Procalcitonin 0.10 ng/mL (<0.15) 07/18/20 10:36 TSH 5.520 mlU/mL (0.270-4.200) H 07/18/20 08:56 Free T4 0.84 ng/dL (0.76-1.46) 07/18/20 08:56 Arterial Blood Glucose 157 mg/dL (65-95) H 07/25/20 03:57 Arterial Blood Ionized Calcium 4.3 mg/dL (4.6-5.3) L 07/25/20 03:57 Random Vancomycin 11.5 ug/mL (0-40.0) 07/28/20 05:00 Heparin-induced Plt Ab Negative (Negative) 07/23/20 08:54 UF Heparin High Dose 0 % Release 07/23/20 08:54 MAGEN UFH Low Dose 0.1 0 % Release 07/23/20 08:54 MAGEN UFH Low Dose 0.5 0 % Release 07/23/20 08:54 Coronavirus (PCR) Negative (Negative) 07/18/20 12:07 Hepatitis A IgM Ab Non-reactive (NonReactive) 07/23/20 19:20 Hep Bs Antigen Non-reactive (Negative) 07/23/20 19:20 Hep B Core IgM Ab Non-reactive (NonReactive) 07/23/20 19:20 Hepatitis C Antibody Reactive (NonReactive) A 07/23/20 19:20 Blood Type A POSITIVE 08/03/20 04:00 Antibody Screen Negative 08/03/20 04:00 Crossmatch See Detail 08/03/20 04:00 Microbiology: Microbiology 07/18/20 09:00 Peripheral/Venous Blood Culture - Final Enterococcus Faecium Ayala/IV: Voiding Method Incontinent Active Medications - Current Medications Current Medications: Generic Name Dose Route Start Last Admin Trade Name Freq PRN Reason Stop Dose Admin Lipase/Protease/Amylase 1 each 07/23/20 14:17 Lipase 10,500/Protease 25,000/Amylase 43,750 (Units) Dr Suleman TRUONG PRN PRN For Clogged Feeding Tube Aspirin 81 mg 08/01/20 10:00 08/03/20 09:19 Aspirin 81 Mg Tab Chew PO 81 mg QDAY JODIE Administration Atropine Sulfate 1 mg 07/23/20 09:03 07/23/20 22:15 Atropine 0.1% (1 Mg/10 Ml) Cardiac Syringe IV 1 mg PRN PRN Administration Bradycardia Dextrose 50 ml 07/23/20 03:28 07/23/20 06:00 Dextrose 50% In Water (25gm) 50 Ml Syringe IV 50 ml Q30MIN PRN Administration Hypoglycemia Protocol Famotidine 20 mg 07/18/20 22:00 08/03/20 09:19 Famotidine 20 Mg Tab PO 20 mg DAILY JODIE Administration Folic Acid 1 mg 07/19/20 10:00 08/03/20 09:21 Folic Acid 1 Mg Tab PO 1 mg DAILY JODIE Administration Hydralazine HCl 50 mg 07/18/20 14:00 08/04/20 06:53 Hydralazine 25 Mg Tab PO 50 mg Q8HR JODIE Administration Hydralazine HCl 20 mg 07/22/20 14:02 Hydralazine 20 Mg/1 Ml Inj IV Q4HR PRN Blood Pressure Hydrophilic Ointment 1 applic 07/22/20 10:02 Lip Therapy Vaseline TP Q2HR PRN Dry Lips Norepinephrine 4 mg in 250 mls @ 7.5 mls/hr 07/24/20 10:00 07/24/20 15:35 Levophed Drip 4 Mg/Ns 250 Ml IV 0 mcg/min TITR JODIE 0 mls/hr Titration Protocol 2 MCG/MIN Sodium Chloride 100 mls @ 999 mls/hr 08/03/20 15:05 Nacl 0.9% IV FRANCISCO PRN Hypotension Insulin Glargine 5 units 08/03/20 22:00 08/03/20 21:29 Insulin Glargine 100 Units/Ml SUB-Q 5 units QHS JODIE Administration Insulin Human Lispro 0 unit 07/26/20 10:00 08/04/20 09:42 Insulin Lispro 100 Unit/Ml SUB-Q Not Given Q6HR [facility] Protocol Levetiracetam 750 mg 07/18/20 22:00 08/03/20 21:29 Levetiracetam 500 Mg/5 Ml Oral Liqd PO 750 mg BID JODIE Administration Multi-Ingred Cream/Lotion/Oil/Oint 1 applic 07/22/20 10:02 Mineral Oil/Petrolatum, White Ophth Oint 3.5 Gm OU Q4HR PRN Dry Eye(s) Scopolamine 1 each 07/31/20 10:00 08/03/20 09:19 Scopolamine Transdermal Patch 72 Hr TD 1 each Q3D JODIE Administration Simple Syrup 15 ml 07/23/20 14:17 Simple Syrup 15 Ml FEEDTUBE PRN PRN Hypoglycemia Simple Syrup 30 ml 07/23/20 14:17 Simple Syrup 15 Ml FEEDTUBE PRN PRN Hypoglycemia Sodium Bicarbonate 325 mg 07/23/20 14:17 Sodium Bicarbonate 325 Mg Tab FEEDTUBE PRN PRN For Clogged Feeding Tube Thiamine HCl 100 mg 07/19/20 10:00 08/03/20 09:20 Thiamine 100 Mg Tab PO 100 mg QDAY JODIE Administration Nutrition/Malnutrition Assess - Dietary Evaluation Nutrition/Malnutrition Findings: Nutrition Notes Start: 07/19/20 09:53 Freq: Status: Active Protocol: Document 08/03/20 12:31 LP (Rec: 08/03/20 12:34 LP [id number]) Nutrition Notes Initial or Follow up Reassessment Current Diagnosis CKD(stage I-IV),Diabetes, Sepsis,Heart Failure, Respiratory Failure,Stroke Other Pertinent Diagnosis On HD,Acute toxic metabolic encephalopathy, Bradycardia, ( R) LE wound, Current Diet Nepro 1.8 at 50 ml/hr Labs/Tests Reviewed Pertinent Medications Reviewed Height 5 ft 9 in Weight 101.3 kg [place] Body Weight (kg) 72.72 BMI 33.0 Weight Status Obese Subjective/Other Information Pt tolerating TF at goal rate. Percent of energy/protein needs met: 100%/67% Burn Absent Trauma Absent Difficulty In Swallowing Skin Integrity/Comment Diabetic ulcers to BLE Current % PO Negligible Minimum of two criteria Yes Body Fat Depletion Mild depletion (non-severe) Muscle Mass Mild Depletion (non-severe) Fluid Accumulation Moderate to Severe (severe) #2 Nutrition Diagnosis Malnutrition Etiology Unknown As Evidenced by Signs and Symptoms Observed muscle and fat mass depletion, fluid accumulation #1 Nutrition Diagnosis Inadequate oral intake Diagnosis Progress(for reassessment Continues documentation) Is patient on ventilator? Yes Is Patient Ambulatory and/or Out of Bed No REE-([facility]-confined to bed) 2168.784 Kcal/Kg value to use for calculation 18 Approximate Energy Requirements Using 1823 kcal/Kg Calculation Used for Recommendations Kcal/kg Additional Notes Protein needs: >144g (>2.0 g/ kgIBW) Fluid needs 1000 - 1500 ml/day Nutrition Intervention Change Diet Order: TF Nutrition Support: Increase Nepro at 50 ml/h with a free water flush of 125 ml q4h. Kcal 2,160 Protein (gm) 97 Fluid (mL) 872 Add Supplement/Snack (indicate name/kcal Pawel BID /protein ) Provides kCal: 190 Provides Protein (gm) 5 Goal #1 TF tolerance Goal #2 Meet at estimated energy and protein needs as best as possible. Anticipated Discharge Needs: Unable to determine at this time Follow-Up By: 08/06/20 Additional Comments Follow for stable TF
[2020-08-04] MEDS: levETIRAcetam 500 MG/5 ML ORAL LIQD PO SCH ×2 (12:00→23:24)
--- NOTE | 2020-08-04 12:07 | Progress Note ---
Assessment and Plan 8 y/o male with acute respiratory failure secondary to worsening renal failure, volume overload and altered mental state 08/04/20: Long discussion with daughter over the phone. Explained overall poor prognosis. Per daughter, patient would not want to exist like this. She is going to come visit and at that time I will discuss with her about future plans (hospice, vs withdrawal of care and comfort measures). Continue all supportive therapy for now and await daughter visit and her speaking with family. 08/03/20: Reviewed repeat EEG. Getting MRI today. Will ask Neuro to see patient again after MRI. Given current state and now reading on EEG, will need to have family discussion once MRI is done. Likely will need trach and peg placement. Transfuse today during HD. 08/02/20: Will consider ordering repeat EEG today tomorrow. Neuro has not re- evaluated the patient since initial consult. Hold on transfusion today as bp is stable and HD is not until tomorrow. Overall prognosis is guarded to poor. May need to start looking into LTACH if not able to wean. Currently on minimal settings but mental state will not allow traditional extubation. 08/01/20: Will repeat EEG at request of neurology. No MRI requested. CT and EEG report not equivalent. Trial of narcan given but no improvement. Does have urine in the bladder but no jones and prior history of obstruction requiring urology to place jones. May need to consider asking them to re-evaluate. Prognosis remains guarded to poor. 07/31/20: Will obtain, EEG and neuro consult. They will likely ask for MRI so will speak with family about obtaining screening form info. Continue PSV trials. HD per renal. Guarded to poor prognosis. 07/30/20: Mental state continues to prevent conventional extubation. HD per renal. Need to repeat Head CT to check for other damage. 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 Very very guarded pr ognosis. If repeat head CT is negative, will need neuro eval and EEG 07/27/20: Mental state continues to prevent conventional extubation. Currently stable on minimal vent settings. HD per renal, does not appear he was dialyzed yesterday so may get it today. If not more awake by tomorrow, suggest repeat head CT. Continue all other supportive measures. 07/26/20: Drop PEEP down to 6. Once more awake PSV trials. HD per renal. Appears to be helping, maybe they will dialyze again today. Prognosis still remains guarded. 1. Needs HD 2. Wean FiO2 and PEEP as tolerated 3. Guarded prognosis CCT 31 minutes. Subjective Date of service: 08/04/20 Principal diagnosis: RACQUEL Interval history: No acute events. Remains unresponsive. Objective Vital Signs - 12hr 08/04/20 08/04/20 08/04/20 01:00 02:00 03:00 Temperature Pulse Rate 101 H 101 H 101 H Pulse Rate [ From Monitor] Respiratory 17 21 21 Rate Blood Pressure 114/49 119/56 118/56 O2 Sat by Pulse 93 93 92 Oximetry O2 Sat by Pulse Oximetry [ Anterior Bilateral Throughout] O2 Sat by Pulse Oximetry [ Anterior Right] 08/04/20 08/04/20 08/04/20 03:18 04:00 05:01 Temperature 100.6 F H Pulse Rate 100 H 126 H Pulse Rate [ 101 H From Monitor] Respiratory 22 11 L Rate Blood Pressure 121/57 109/61 O2 Sat by Pulse 91 89 Oximetry O2 Sat by Pulse Oximetry [ Anterior Bilateral Throughout] O2 Sat by Pulse Oximetry [ Anterior Right] 08/04/20 08/04/20 08/04/20 06:01 06:53 07:00 Temperature Pulse Rate 102 H 96 H 94 H Pulse Rate [ From Monitor] Respiratory 16 18 Rate Blood Pressure 126/64 120/66 117/65 O2 Sat by Pulse 100 Oximetry O2 Sat by Pulse Oximetry [ Anterior Bilateral Throughout] O2 Sat by Pulse Oximetry [ Anterior Right] 08/04/20 08/04/20 08/04/20 08:00 08:57 09:00 Temperature 100.8 F H Pulse Rate 95 H 103 H 100 H Pulse Rate [ From Monitor] Respiratory 15 18 18 Rate Blood Pressure 109/56 114/59 115/58 O2 Sat by Pulse 99 99 99 Oximetry O2 Sat by Pulse Oximetry [ Anterior Bilateral Throughout] O2 Sat by Pulse Oximetry [ Anterior Right] 08/04/20 08/04/20 08/04/20 10:00 10:10 10:15 Temperature 100.8 F H Pulse Rate 97 H 97 H 94 H Pulse Rate [ From Monitor] Respiratory 18 Rate Blood Pressure 111/58 111/55 113/59 O2 Sat by Pulse 100 Oximetry O2 Sat by Pulse 100 Oximetry [ Anterior Bilateral Throughout] O2 Sat by Pulse 100 Oximetry [ Anterior Right] 08/04/20 08/04/20 08/04/20 10:30 10:45 11:00 Temperature Pulse Rate 95 H 93 H 92 H Pulse Rate [ From Monitor] Respiratory Rate Blood Pressure 115/61 112/63 110/61 O2 Sat by Pulse Oximetry O2 Sat by Pulse Oximetry [ Anterior Bilateral Throughout] O2 Sat by Pulse Oximetry [ Anterior Right] 08/04/20 08/04/20 08/04/20 11:15 11:30 11:45 Temperature Pulse Rate 93 H 93 H 91 H Pulse Rate [ From Monitor] Respiratory Rate Blood Pressure 108/62 108/61 114/65 O2 Sat by Pulse Oximetry O2 Sat by Pulse Oximetry [ Anterior Bilateral Throughout] O2 Sat by Pulse Oximetry [ Anterior Right] 08/04/20 12:00 Temperature Pulse Rate 91 H Pulse Rate [ From Monitor] Respiratory Rate Blood Pressure 107/61 O2 Sat by Pulse Oximetry O2 Sat by Pulse Oximetry [ Anterior Bilateral Throughout] O2 Sat by Pulse Oximetry [ Anterior Right] Constitutional: appears uncomfortable (cpap, orally intubated), other (on vent orally intubated) Eyes: non-icteric ENT: epistaxis Neck: other (large in circumference) Effort: mildly labored Ascultation: Bilateral: diminished breath sounds Neurologic: non-focal exam, unable to assess CBC and BMP: 08/04/20 05:24 08/03/20 04:00 ABG, PT/INR, D-dimer: ABG ABG pH 7.520 pH Units (7.350-7.450) H 07/27/20 05:20 POC ABG pCO2 32.7 mmHg (32.0-48.0) 07/25/20 03:57 ABG pCO2 33.5 mm Hg 07/27/20 05:20 POC ABG pO2 62.7 mmHg (83-108) L 07/25/20 03:57 ABG pO2 64.2 mm Hg (80.0-90.0) L 07/27/20 05:20 POC ABG HCO3 24.8 07/25/20 03:57 ABG O2 Saturation 95.8 % (95.0-99.0) 07/27/20 05:20 PT/INR, D-dimer PT 15.9 Sec. (12.2-14.9) H 07/22/20 10:30 INR 1.27 (0.87-1.13) H 07/22/20 10:30 D-Dimer 1036.46 ng/mlDDU (0-234) H 07/18/20 08:56 Abnormal lab findings: Abnormal Labs 07/18/20 07/18/20 07/18/20 08:56 08:56 08:56 WBC 3.5 L RBC 2.51 L Hgb 8.0 L Hct 24.5 L MCV 98 H RDW 18.3 H Plt Count 58 L Lymph % (Auto) Mcdonald % (Auto) 11.1 H Lymph # (Auto) Mcdonald # (Auto) Seg Neutrophils % Seg Neuts % (Manual) Lymphocytes % (Manual) Nucleated RBC % Seg Neutrophils # Man Lymphocytes # (Manual) PT INR 1.18 H APTT D-Dimer ABG pH POC ABG pCO2 POC ABG pO2 ABG pO2 ABG HCO3 ABG Base Excess ABG Hemoglobin ABG Oxyhemoglobin ABG Potassium ABG Chloride ABG Glucose Oxyhemoglobin Carboxyhemoglobin Sodium 146 H Potassium 5.2 H Chloride 117.3 H Carbon Dioxide 21 L BUN 52 H Creatinine 3.1 H Glucose 118 H POC Glucose Calcium 8.1 L Phosphorus AST ALT Alkaline Phosphatase Lactate Dehydrogenase CK-MB (CK-2) CK-MB (CK-2) Rel Index Troponin T 0.057 H C-Reactive Protein NT-Pro-B Natriuret Pep Albumin HDL Cholesterol 67 H TSH Arterial Blood Glucose Arterial Blood Ionized Calcium Hepatitis C Antibody Crossmatch 07/18/20 07/18/20 07/18/20 08:56 08:56 08:56 WBC RBC Hgb Hct MCV RDW Plt Count Lymph % (Auto) Mcdonald % (Auto) Lymph # (Auto) Mcdonald # (Auto) Seg Neutrophils % Seg Neuts % (Manual) Lymphocytes % (Manual) Nucleated RBC % Seg Neutrophils # Man Lymphocytes # (Manual) PT INR APTT D-Dimer 1036.46 H ABG pH POC ABG pCO2 POC ABG pO2 ABG pO2 ABG HCO3 ABG Base Excess ABG Hemoglobin ABG Oxyhemoglobin ABG Potassium ABG Chloride ABG Glucose Oxyhemoglobin Carboxyhemoglobin Sodium Potassium Chloride Carbon Dioxide BUN Creatinine Glucose POC Glucose Calcium Phosphorus AST ALT Alkaline Phosphatase Lactate Dehydrogenase CK-MB (CK-2) CK-MB (CK-2) Rel Index Troponin T C-Reactive Protein NT-Pro-B Natriuret Pep 4777 H Albumin HDL Cholesterol TSH 5.520 H Arterial Blood Glucose Arterial Blood Ionized Calcium Hepatitis C Antibody Crossmatch 07/18/20 07/18/20 07/18/20 10:36 18:56 19:00 WBC RBC Hgb Hct MCV RDW Plt Count Lymph % (Auto) Mcdonald % (Auto) Lymph # (Auto) Mcdonald # (Auto) Seg Neutrophils % Seg Neuts % (Manual) Lymphocytes % (Manual) Nucleated RBC % Seg Neutrophils # Man Lymphocytes # (Manual) PT INR APTT D-Dimer ABG pH POC ABG pCO2 POC ABG pO2 ABG pO2 ABG HCO3 ABG Base Excess ABG Hemoglobin ABG Oxyhemoglobin ABG Potassium ABG Chloride ABG Glucose Oxyhemoglobin Carboxyhemoglobin Sodium Potassium Chloride Carbon Dioxide BUN Creatinine Glucose 101 H POC Glucose 66 L 63 L Calcium Phosphorus AST ALT Alkaline Phosphatase Lactate Dehydrogenase 212 H CK-MB (CK-2) CK-MB (CK-2) Rel Index Troponin T C-Reactive Protein 2.10 H NT-Pro-B Natriuret Pep Albumin HDL Cholesterol TSH Arterial Blood Glucose Arterial Blood Ionized Calcium Hepatitis C Antibody Crossmatch 07/19/20 07/19/20 07/19/20 06:00 06:00 16:26 WBC 3.9 L RBC 2.34 L Hgb 7.5 L Hct 23.1 L MCV 99 H RDW 18.6 H Plt Count 52 L Lymph % (Auto) Mcdonald % (Auto) 9.4 H Lymph # (Auto) 1.0 L Mcdonald # (Auto) Seg Neutrophils % Seg Neuts % (Manual) Lymphocytes % (Manual) Nucleated RBC % Seg Neutrophils # Man Lymphocytes # (Manual) PT INR APTT D-Dimer ABG pH POC ABG pCO2 POC ABG pO2 ABG pO2 ABG HCO3 ABG Base Excess ABG Hemoglobin ABG Oxyhemoglobin ABG Potassium ABG Chloride ABG Glucose Oxyhemoglobin Carboxyhemoglobin Sodium Potassium 5.3 H Chloride 115.8 H Carbon Dioxide BUN 52 H Creatinine 3.4 H Glucose 114 H POC Glucose 123 H Calcium 7.7 L Phosphorus AST 77 H ALT < 5 L Alkaline Phosphatase 678 H Lactate Dehydrogenase CK-MB (CK-2) CK-MB (CK-2) Rel Index Troponin T C-Reactive Protein NT-Pro-B Natriuret Pep Albumin 2.2 L HDL Cholesterol TSH Arterial Blood Glucose Arterial Blood Ionized Calcium Hepatitis C Antibody Crossmatch 07/19/20 07/20/20 07/20/20 21:20 08:25 08:25 WBC 3.6 L RBC 2.54 L Hgb 8.0 L Hct 24.6 L MCV 97 H RDW 18.0 H Plt Count 47 L Lymph % (Auto) Mcdonald % (Auto) 9.8 H Lymph # (Auto) 0.9 L Mcdonald # (Auto) Seg Neutrophils % Seg Neuts % (Manual) Lymphocytes % (Manual) Nucleated RBC % Seg Neutrophils # Man Lymphocytes # (Manual) PT INR APTT D-Dimer ABG pH POC ABG pCO2 POC ABG pO2 ABG pO2 ABG HCO3 ABG Base Excess ABG Hemoglobin ABG Oxyhemoglobin ABG Potassium ABG Chloride ABG Glucose Oxyhemoglobin Carboxyhemoglobin Sodium Potassium 5.4 H Chloride 115.8 H Carbon Dioxide BUN 56 H Creatinine 3.8 H Glucose 110 H POC Glucose 142 H Calcium 7.9 L Phosphorus AST ALT Alkaline Phosphatase Lactate Dehydrogenase CK-MB (CK-2) CK-MB (CK-2) Rel Index Troponin T C-Reactive Protein NT-Pro-B Natriuret Pep Albumin HDL Cholesterol TSH Arterial Blood Glucose Arterial Blood Ionized Calcium Hepatitis C Antibody Crossmatch 07/20/20 07/20/20 07/20/20 11:27 16:34 21:27 WBC RBC Hgb Hct MCV RDW Plt Count Lymph % (Auto) Mcdonald % (Auto) Lymph # (Auto) Mcdonald # (Auto) Seg Neutrophils % Seg Neuts % (Manual) Lymphocytes % (Manual) Nucleated RBC % Seg Neutrophils # Man Lymphocytes # (Manual) PT INR APTT D-Dimer ABG pH POC ABG pCO2 POC ABG pO2 ABG pO2 ABG HCO3 ABG Base Excess ABG Hemoglobin ABG Oxyhemoglobin ABG Potassium ABG Chloride ABG Glucose Oxyhemoglobin Carboxyhemoglobin Sodium Potassium Chloride Carbon Dioxide BUN Creatinine Glucose POC Glucose 136 H 186 H 175 H Calcium Phosphorus AST ALT Alkaline Phosphatase Lactate Dehydrogenase CK-MB (CK-2) CK-MB (CK-2) Rel Index Troponin T C-Reactive Protein NT-Pro-B Natriuret Pep Albumin HDL Cholesterol TSH Arterial Blood Glucose Arterial Blood Ionized Calcium Hepatitis C Antibody Crossmatch 07/21/20 07/22/20 07/22/20 10:31 07:25 10:30 WBC 3.8 L RBC 2.53 L Hgb 7.9 L Hct 24.7 L MCV 98 H RDW 18.7 H Plt Count 35 L Lymph % (Auto) Mcdonald % (Auto) Lymph # (Auto) Mcdonald # (Auto) Seg Neutrophils % Seg Neuts % (Manual) 92.0 H Lymphocytes % (Manual) 6.0 L Nucleated RBC % 13.0 H Seg Neutrophils # Man Lymphocytes # (Manual) 0.2 L PT INR APTT D-Dimer ABG pH POC ABG pCO2 POC ABG pO2 ABG pO2 ABG HCO3 ABG Base Excess ABG Hemoglobin ABG Oxyhemoglobin ABG Potassium ABG Chloride ABG Glucose Oxyhemoglobin Carboxyhemoglobin Sodium Potassium 5.3 H 5.6 H Chloride 115.0 H 115.1 H Carbon Dioxide 18 L BUN 59 H 61 H Creatinine 4.3 H 4.6 H Glucose 109 H POC Glucose Calcium 7.6 L 7.6 L Phosphorus AST ALT Alkaline Phosphatase Lactate Dehydrogenase CK-MB (CK-2) CK-MB (CK-2) Rel Index Troponin T C-Reactive Protein NT-Pro-B Natriuret Pep Albumin HDL Cholesterol TSH Arterial Blood Glucose Arterial Blood Ionized Calcium Hepatitis C Antibody Crossmatch 07/22/20 07/22/20 07/22/20 10:30 10:30 10:30 WBC RBC Hgb Hct MCV RDW Plt Count Lymph % (Auto) Mcdonald % (Auto) Lymph # (Auto) Mcdonald # (Auto) Seg Neutrophils % Seg Neuts % (Manual) Lymphocytes % (Manual) Nucleated RBC % Seg Neutrophils # Man Lymphocytes # (Manual) PT 15.9 H INR 1.27 H APTT 38.3 H D-Dimer ABG pH POC ABG pCO2 POC ABG pO2 ABG pO2 ABG HCO3 ABG Base Excess ABG Hemoglobin ABG Oxyhemoglobin ABG Potassium ABG Chloride ABG Glucose Oxyhemoglobin Carboxyhemoglobin Sodium 146 H Potassium 5.4 H Chloride 116.4 H Carbon Dioxide BUN 61 H Creatinine 4.6 H Glucose 115 H POC Glucose Calcium 7.5 L Phosphorus 5.80 H AST 66 H ALT < 5 L Alkaline Phosphatase 604 H Lactate Dehydrogenase CK-MB (CK-2) 10.9 H CK-MB (CK-2) Rel Index 16.2 H Troponin T 0.047 H C-Reactive Protein NT-Pro-B Natriuret Pep Albumin 2.1 L HDL Cholesterol TSH Arterial Blood Glucose Arterial Blood Ionized Calcium Hepatitis C Antibody Crossmatch 07/22/20 07/23/20 07/23/20 11:10 03:38 03:47 WBC RBC Hgb Hct MCV RDW Plt Count Lymph % (Auto) Mcdonald % (Auto) Lymph # (Auto) Mcdonald # (Auto) Seg Neutrophils % Seg Neuts % (Manual) Lymphocytes % (Manual) Nucleated RBC % Seg Neutrophils # Man Lymphocytes # (Manual) PT INR APTT D-Dimer ABG pH 7.203 L POC ABG pCO2 48.7 H 29.7 L POC ABG pO2 80.6 L 267.3 H ABG pO2 ABG HCO3 ABG Base Excess ABG Hemoglobin 8.6 L 8.2 L ABG Oxyhemoglobin 91.1 L 98.2 H ABG Potassium 5.4 H 5.4 H ABG Chloride 122.0 H 122.0 H ABG Glucose 105 H 101 H Oxyhemoglobin Carboxyhemoglobin 2.0 H Sodium Potassium Chloride Carbon Dioxide BUN Creatinine Glucose POC Glucose 65 L Calcium Phosphorus AST ALT Alkaline Phosphatase Lactate Dehydrogenase CK-MB (CK-2) CK-MB (CK-2) Rel Index Troponin T C-Reactive Protein NT-Pro-B Natriuret Pep Albumin HDL Cholesterol TSH Arterial Blood Glucose 105 H 101 H Arterial Blood Ionized Calcium 4.5 L 4.4 L Hepatitis C Antibody Crossmatch 07/23/20 07/23/20 07/23/20 06:05 06:05 06:27 WBC RBC 2.36 L Hgb 7.5 L Hct 22.7 L MCV 96 H RDW 18.9 H Plt Count 42 L Lymph % (Auto) Mcdonald % (Auto) Lymph # (Auto) Mcdonald # (Auto) Seg Neutrophils % Seg Neuts % (Manual) Lymphocytes % (Manual) Nucleated RBC % Seg Neutrophils # Man Lymphocytes # (Manual) PT INR APTT D-Dimer ABG pH POC ABG pCO2 POC ABG pO2 ABG pO2 ABG HCO3 ABG Base Excess ABG Hemoglobin ABG Oxyhemoglobin ABG Potassium ABG Chloride ABG Glucose Oxyhemoglobin Carboxyhemoglobin Sodium Potassium 5.6 H Chloride 114.1 H Carbon Dioxide 17 L BUN 62 H Creatinine 5.1 H Glucose 215 H POC Glucose 114 H Calcium 7.3 L Phosphorus AST ALT Alkaline Phosphatase Lactate Dehydrogenase CK-MB (CK-2) CK-MB (CK-2) Rel Index Troponin T C-Reactive Protein NT-Pro-B Natriuret Pep Albumin HDL Cholesterol TSH Arterial Blood Glucose Arterial Blood Ionized Calcium Hepatitis C Antibody Crossmatch 07/23/20 07/23/20 07/24/20 11:36 19:20 04:00 WBC RBC Hgb Hct MCV RDW Plt Count Lymph % (Auto) Mcdonald % (Auto) Lymph # (Auto) Mcdonald # (Auto) Seg Neutrophils % Seg Neuts % (Manual) Lymphocytes % (Manual) Nucleated RBC % Seg Neutrophils # Man Lymphocytes # (Manual) PT INR APTT D-Dimer ABG pH POC ABG pCO2 POC ABG pO2 ABG pO2 ABG HCO3 ABG Base Excess ABG Hemoglobin ABG Oxyhemoglobin ABG Potassium ABG Chloride ABG Glucose Oxyhemoglobin Carboxyhemoglobin Sodium Potassium Chloride 110.8 H Carbon Dioxide BUN 47 H Creatinine 4.4 H Glucose POC Glucose 66 L Calcium 7.3 L Phosphorus AST ALT Alkaline Phosphatase Lactate Dehydrogenase CK-MB (CK-2) CK-MB (CK-2) Rel Index Troponin T C-Reactive Protein NT-Pro-B Natriuret Pep Albumin HDL Cholesterol TSH Arterial Blood Glucose Arterial Blood Ionized Calcium Hepatitis C Antibody Reactive A Crossmatch 07/24/20 07/24/20 07/24/20 04:25 11:37 Unknown WBC RBC 2.36 L Hgb 7.5 L Hct 22.5 L MCV 95 H RDW 18.4 H Plt Count 38 L Lymph % (Auto) Mcdonald % (Auto) Lymph # (Auto) Mcdonald # (Auto) Seg Neutrophils % Seg Neuts % (Manual) Lymphocytes % (Manual) Nucleated RBC % Seg Neutrophils # Man Lymphocytes # (Manual) PT INR APTT D-Dimer ABG pH POC ABG pCO2 POC ABG pO2 64.8 L ABG pO2 ABG HCO3 ABG Base Excess ABG Hemoglobin 7.9 L ABG Oxyhemoglobin ABG Potassium ABG Chloride 114.0 H ABG Glucose Oxyhemoglobin Carboxyhemoglobin Sodium Potassium Chloride Carbon Dioxide BUN Creatinine Glucose POC Glucose 109 H Calcium Phosphorus AST ALT Alkaline Phosphatase Lactate Dehydrogenase CK-MB (CK-2) CK-MB (CK-2) Rel Index Troponin T C-Reactive Protein NT-Pro-B Natriuret Pep Albumin HDL Cholesterol TSH Arterial Blood Glucose Arterial Blood Ionized Calcium 4.2 L Hepatitis C Antibody Crossmatch 07/25/20 07/25/20 07/25/20 00:12 03:57 04:00 WBC RBC Hgb Hct MCV RDW Plt Count Lymph % (Auto) Mcdonald % (Auto) Lymph # (Auto) Mcdonald # (Auto) Seg Neutrophils % Seg Neuts % (Manual) Lymphocytes % (Manual) Nucleated RBC % Seg Neutrophils # Man Lymphocytes # (Manual) PT INR APTT D-Dimer ABG pH 7.497 H POC ABG pCO2 POC ABG pO2 62.7 L ABG pO2 ABG HCO3 ABG Base Excess ABG Hemoglobin 8.5 L ABG Oxyhemoglobin 90.1 L ABG Potassium ABG Chloride 110.0 H ABG Glucose 157 H Oxyhemoglobin Carboxyhemoglobin Sodium Potassium Chloride Carbon Dioxide BUN 38 H Creatinine 4.1 H Glucose 160 H POC Glucose 140 H Calcium 7.9 L Phosphorus AST ALT Alkaline Phosphatase Lactate Dehydrogenase CK-MB (CK-2) CK-MB (CK-2) Rel Index Troponin T C-Reactive Protein NT-Pro-B Natriuret Pep Albumin HDL Cholesterol TSH Arterial Blood Glucose 157 H Arterial Blood Ionized Calcium 4.3 L Hepatitis C Antibody Crossmatch 07/25/20 07/25/20 07/25/20 04:00 06:24 12:11 WBC RBC 2.48 L Hgb 7.7 L Hct 23.2 L MCV RDW 18.4 H Plt Count 44 L Lymph % (Auto) Mcdonald % (Auto) 8.5 H Lymph # (Auto) Mcdonald # (Auto) Seg Neutrophils % 76.7 H Seg Neuts % (Manual) Lymphocytes % (Manual) Nucleated RBC % Seg Neutrophils # Man Lymphocytes # (Manual) PT INR APTT D-Dimer ABG pH POC ABG pCO2 POC ABG pO2 ABG pO2 ABG HCO3 ABG Base Excess ABG Hemoglobin ABG Oxyhemoglobin ABG Potassium ABG Chloride ABG Glucose Oxyhemoglobin Carboxyhemoglobin Sodium Potassium Chloride Carbon Dioxide BUN Creatinine Glucose POC Glucose 155 H 205 H Calcium Phosphorus AST ALT Alkaline Phosphatase Lactate Dehydrogenase CK-MB (CK-2) CK-MB (CK-2) Rel Index Troponin T C-Reactive Protein NT-Pro-B Natriuret Pep Albumin HDL Cholesterol TSH Arterial Blood Glucose Arterial Blood Ionized Calcium Hepatitis C Antibody Crossmatch 07/25/20 07/26/20 07/26/20 17:41 00:18 03:54 WBC RBC Hgb Hct MCV RDW Plt Count Lymph % (Auto) Mcdonald % (Auto) Lymph # (Auto) Mcdonald # (Auto) Seg Neutrophils % Seg Neuts % (Manual) Lymphocytes % (Manual) Nucleated RBC % Seg Neutrophils # Man Lymphocytes # (Manual) PT INR APTT D-Dimer ABG pH 7.512 H POC ABG pCO2 POC ABG pO2 ABG pO2 121.2 H ABG HCO3 27.1 H ABG Base Excess 3.6 H ABG Hemoglobin < 5.1 L ABG Oxyhemoglobin ABG Potassium ABG Chloride ABG Glucose Oxyhemoglobin Carboxyhemoglobin Sodium Potassium Chloride Carbon Dioxide BUN Creatinine Glucose POC Glucose 227 H 198 H Calcium Phosphorus AST ALT Alkaline Phosphatase Lactate Dehydrogenase CK-MB (CK-2) CK-MB (CK-2) Rel Index Troponin T C-Reactive Protein NT-Pro-B Natriuret Pep Albumin HDL Cholesterol TSH Arterial Blood Glucose Arterial Blood Ionized Calcium Hepatitis C Antibody Crossmatch 07/26/20 07/26/20 07/26/20 06:31 07:00 12:09 WBC RBC 2.33 L Hgb 7.4 L Hct 21.6 L MCV RDW 18.0 H Plt Count 50 L Lymph % (Auto) 13.0 L Mcdonald % (Auto) Lymph # (Auto) Mcdonald # (Auto) Seg Neutrophils % 79.8 H Seg Neuts % (Manual) Lymphocytes % (Manual) Nucleated RBC % Seg Neutrophils # Man Lymphocytes # (Manual) PT INR APTT D-Dimer ABG pH POC ABG pCO2 POC ABG pO2 ABG pO2 ABG HCO3 ABG Base Excess ABG Hemoglobin ABG Oxyhemoglobin ABG Potassium ABG Chloride ABG Glucose Oxyhemoglobin Carboxyhemoglobin Sodium Potassium Chloride Carbon Dioxide BUN Creatinine Glucose POC Glucose 223 H 250 H Calcium Phosphorus AST ALT Alkaline Phosphatase Lactate Dehydrogenase CK-MB (CK-2) CK-MB (CK-2) Rel Index Troponin T C-Reactive Protein NT-Pro-B Natriuret Pep Albumin HDL Cholesterol TSH Arterial Blood Glucose Arterial Blood Ionized Calcium Hepatitis C Antibody Crossmatch 07/26/20 07/26/20 07/27/20 17:40 23:26 05:20 WBC RBC Hgb Hct MCV RDW Plt Count Lymph % (Auto) Mcdonald % (Auto) Lymph # (Auto) Mcdonald # (Auto) Seg Neutrophils % Seg Neuts % (Manual) Lymphocytes % (Manual) Nucleated RBC % Seg Neutrophils # Man Lymphocytes # (Manual) PT INR APTT D-Dimer ABG pH 7.520 H POC ABG pCO2 POC ABG pO2 ABG pO2 64.2 L ABG HCO3 26.8 H ABG Base Excess 3.7 H ABG Hemoglobin 7.2 L ABG Oxyhemoglobin ABG Potassium ABG Chloride ABG Glucose Oxyhemoglobin 93.2 L Carboxyhemoglobin Sodium Potassium Chloride Carbon Dioxide BUN Creatinine Glucose POC Glucose 226 H 176 H Calcium Phosphorus AST ALT Alkaline Phosphatase Lactate Dehydrogenase CK-MB (CK-2) CK-MB (CK-2) Rel Index Troponin T C-Reactive Protein NT-Pro-B Natriuret Pep Albumin HDL Cholesterol TSH Arterial Blood Glucose Arterial Blood Ionized Calcium Hepatitis C Antibody Crossmatch 07/27/20 07/27/20 07/27/20 05:42 06:36 06:36 WBC RBC 2.23 L Hgb 7.0 L Hct 20.7 L MCV RDW 18.4 H Plt Count 56 L Lymph % (Auto) Mcdonald % (Auto) Lymph # (Auto) Mcdonald # (Auto) Seg Neutrophils % Seg Neuts % (Manual) 88.0 H Lymphocytes % (Manual) 11.0 L Nucleated RBC % 2.0 H Seg Neutrophils # Man 8.9 H Lymphocytes # (Manual) 1.1 L PT INR APTT D-Dimer ABG pH POC ABG pCO2 POC ABG pO2 ABG pO2 ABG HCO3 ABG Base Excess ABG Hemoglobin ABG Oxyhemoglobin ABG Potassium ABG Chloride ABG Glucose Oxyhemoglobin Carboxyhemoglobin Sodium Potassium Chloride Carbon Dioxide BUN 43 H Creatinine 4.4 H Glucose 162 H POC Glucose 142 H Calcium 8.2 L Phosphorus AST ALT Alkaline Phosphatase Lactate Dehydrogenase CK-MB (CK-2) CK-MB (CK-2) Rel Index Troponin T C-Reactive Protein NT-Pro-B Natriuret Pep Albumin HDL Cholesterol TSH Arterial Blood Glucose Arterial Blood Ionized Calcium Hepatitis C Antibody Crossmatch 07/27/20 07/27/20 07/27/20 11:42 17:37 23:15 WBC RBC Hgb Hct MCV RDW Plt Count Lymph % (Auto) Mcdonald % (Auto) Lymph # (Auto) Mcdonald # (Auto) Seg Neutrophils % Seg Neuts % (Manual) Lymphocytes % (Manual) Nucleated RBC % Seg Neutrophils # Man Lymphocytes # (Manual) PT INR APTT D-Dimer ABG pH POC ABG pCO2 POC ABG pO2 ABG pO2 ABG HCO3 ABG Base Excess ABG Hemoglobin ABG Oxyhemoglobin ABG Potassium ABG Chloride ABG Glucose Oxyhemoglobin Carboxyhemoglobin Sodium Potassium Chloride Carbon Dioxide BUN Creatinine Glucose POC Glucose 134 H 169 H 173 H Calcium Phosphorus AST ALT Alkaline Phosphatase Lactate Dehydrogenase CK-MB (CK-2) CK-MB (CK-2) Rel Index Troponin T C-Reactive Protein NT-Pro-B Natriuret Pep Albumin HDL Cholesterol TSH Arterial Blood Glucose Arterial Blood Ionized Calcium Hepatitis C Antibody Crossmatch 07/28/20 07/28/20 07/28/20 04:00 05:14 10:15 WBC RBC 2.13 L Hgb 6.8 L Hct 19.9 L* MCV RDW 18.4 H Plt Count 55 L Lymph % (Auto) Mcdonald % (Auto) 9.1 H Lymph # (Auto) Mcdonald # (Auto) 0.9 H Seg Neutrophils % 74.5 H Seg Neuts % (Manual) Lymphocytes % (Manual) Nucleated RBC % Seg Neutrophils # Man Lymphocytes # (Manual) PT INR APTT D-Dimer ABG pH POC ABG pCO2 POC ABG pO2 ABG pO2 ABG HCO3 ABG Base Excess ABG Hemoglobin ABG Oxyhemoglobin ABG Potassium ABG Chloride ABG Glucose Oxyhemoglobin Carboxyhemoglobin Sodium Potassium Chloride Carbon Dioxide BUN Creatinine Glucose POC Glucose 169 H Calcium Phosphorus AST ALT Alkaline Phosphatase Lactate Dehydrogenase CK-MB (CK-2) CK-MB (CK-2) Rel Index Troponin T C-Reactive Protein NT-Pro-B Natriuret Pep Albumin HDL Cholesterol TSH Arterial Blood Glucose Arterial Blood Ionized Calcium Hepatitis C Antibody Crossmatch See Detail 07/28/20 07/28/20 07/28/20 11:32 17:28 23:58 WBC RBC Hgb Hct MCV RDW Plt Count Lymph % (Auto) Mcdonald % (Auto) Lymph # (Auto) Mcdonald # (Auto) Seg Neutrophils % Seg Neuts % (Manual) Lymphocytes % (Manual) Nucleated RBC % Seg Neutrophils # Man Lymphocytes # (Manual) PT INR APTT D-Dimer ABG pH POC ABG pCO2 POC ABG pO2 ABG pO2 ABG HCO3 ABG Base Excess ABG Hemoglobin ABG Oxyhemoglobin ABG Potassium ABG Chloride ABG Glucose Oxyhemoglobin Carboxyhemoglobin Sodium Potassium Chloride Carbon Dioxide BUN Creatinine Glucose POC Glucose 185 H 208 H 227 H Calcium Phosphorus AST ALT Alkaline Phosphatase Lactate Dehydrogenase CK-MB (CK-2) CK-MB (CK-2) Rel Index Troponin T C-Reactive Protein NT-Pro-B Natriuret Pep Albumin HDL Cholesterol TSH Arterial Blood Glucose Arterial Blood Ionized Calcium Hepatitis C Antibody Crossmatch 07/29/20 07/29/20 07/29/20 05:37 12:04 17:11 WBC RBC Hgb Hct MCV RDW Plt Count Lymph % (Auto) Mcdonald % (Auto) Lymph # (Auto) Mcdonald # (Auto) Seg Neutrophils % Seg Neuts % (Manual) Lymphocytes % (Manual) Nucleated RBC % Seg Neutrophils # Man Lymphocytes # (Manual) PT INR APTT D-Dimer ABG pH POC ABG pCO2 POC ABG pO2 ABG pO2 ABG HCO3 ABG Base Excess ABG Hemoglobin ABG Oxyhemoglobin ABG Potassium ABG Chloride ABG Glucose Oxyhemoglobin Carboxyhemoglobin Sodium Potassium Chloride Carbon Dioxide BUN Creatinine Glucose POC Glucose 225 H 201 H 185 H Calcium Phosphorus AST ALT Alkaline Phosphatase Lactate Dehydrogenase CK-MB (CK-2) CK-MB (CK-2) Rel Index Troponin T C-Reactive Protein NT-Pro-B Natriuret Pep Albumin HDL Cholesterol TSH Arterial Blood Glucose Arterial Blood Ionized Calcium Hepatitis C Antibody Crossmatch 07/29/20 07/30/20 07/30/20 23:48 05:38 09:05 WBC RBC 2.49 L Hgb 7.7 L Hct 23.1 L MCV RDW 20.5 H Plt Count 54 L Lymph % (Auto) Mcdonald % (Auto) Lymph # (Auto) Mcdonald # (Auto) Seg Neutrophils % Seg Neuts % (Manual) Lymphocytes % (Manual) Nucleated RBC % Seg Neutrophils # Man Lymphocytes # (Manual) PT INR APTT D-Dimer ABG pH POC ABG pCO2 POC ABG pO2 ABG pO2 ABG HCO3 ABG Base Excess ABG Hemoglobin ABG Oxyhemoglobin ABG Potassium ABG Chloride ABG Glucose Oxyhemoglobin Carboxyhemoglobin Sodium Potassium Chloride Carbon Dioxide BUN Creatinine Glucose POC Glucose 209 H 205 H Calcium Phosphorus AST ALT Alkaline Phosphatase Lactate Dehydrogenase CK-MB (CK-2) CK-MB (CK-2) Rel Index Troponin T C-Reactive Protein NT-Pro-B Natriuret Pep Albumin HDL Cholesterol TSH Arterial Blood Glucose Arterial Blood Ionized Calcium Hepatitis C Antibody Crossmatch 07/30/20 07/30/20 07/30/20 09:05 11:42 17:46 WBC RBC Hgb Hct MCV RDW Plt Count Lymph % (Auto) Mcdonald % (Auto) Lymph # (Auto) Mcdonald # (Auto) Seg Neutrophils % Seg Neuts % (Manual) Lymphocytes % (Manual) Nucleated RBC % Seg Neutrophils # Man Lymphocytes # (Manual) PT INR APTT D-Dimer ABG pH POC ABG pCO2 POC ABG pO2 ABG pO2 ABG HCO3 ABG Base Excess ABG Hemoglobin ABG Oxyhemoglobin ABG Potassium ABG Chloride ABG Glucose Oxyhemoglobin Carboxyhemoglobin Sodium 135 L Potassium Chloride Carbon Dioxide BUN 52 H Creatinine 4.1 H Glucose 236 H POC Glucose 224 H 195 H Calcium Phosphorus AST ALT Alkaline Phosphatase Lactate Dehydrogenase CK-MB (CK-2) CK-MB (CK-2) Rel Index Troponin T C-Reactive Protein NT-Pro-B Natriuret Pep Albumin HDL Cholesterol TSH Arterial Blood Glucose Arterial Blood Ionized Calcium Hepatitis C Antibody Crossmatch 07/30/20 07/30/20 07/31/20 21:09 23:45 05:10 WBC RBC 2.46 L Hgb 7.6 L Hct 22.6 L MCV RDW 19.4 H Plt Count 77 L Lymph % (Auto) Mcdonald % (Auto) Lymph # (Auto) Mcdonald # (Auto) Seg Neutrophils % Seg Neuts % (Manual) Lymphocytes % (Manual) Nucleated RBC % Seg Neutrophils # Man Lymphocytes # (Manual) PT INR APTT D-Dimer ABG pH POC ABG pCO2 POC ABG pO2 ABG pO2 ABG HCO3 ABG Base Excess ABG Hemoglobin ABG Oxyhemoglobin ABG Potassium ABG Chloride ABG Glucose Oxyhemoglobin Carboxyhemoglobin Sodium Potassium Chloride Carbon Dioxide BUN Creatinine Glucose POC Glucose 153 H 185 H Calcium Phosphorus AST ALT Alkaline Phosphatase Lactate Dehydrogenase CK-MB (CK-2) CK-MB (CK-2) Rel Index Troponin T C-Reactive Protein NT-Pro-B Natriuret Pep Albumin HDL Cholesterol TSH Arterial Blood Glucose Arterial Blood Ionized Calcium Hepatitis C Antibody Crossmatch 07/31/20 07/31/20 07/31/20 05:17 11:48 17:20 WBC RBC Hgb Hct MCV RDW Plt Count Lymph % (Auto) Mcdonald % (Auto) Lymph # (Auto) Mcdonald # (Auto) Seg Neutrophils % Seg Neuts % (Manual) Lymphocytes % (Manual) Nucleated RBC % Seg Neutrophils # Man Lymphocytes # (Manual) PT INR APTT D-Dimer ABG pH POC ABG pCO2 POC ABG pO2 ABG pO2 ABG HCO3 ABG Base Excess ABG Hemoglobin ABG Oxyhemoglobin ABG Potassium ABG Chloride ABG Glucose Oxyhemoglobin Carboxyhemoglobin Sodium Potassium Chloride Carbon Dioxide BUN Creatinine Glucose POC Glucose 163 H 144 H 133 H Calcium Phosphorus AST ALT Alkaline Phosphatase Lactate Dehydrogenase CK-MB (CK-2) CK-MB (CK-2) Rel Index Troponin T C-Reactive Protein NT-Pro-B Natriuret Pep Albumin HDL Cholesterol TSH Arterial Blood Glucose Arterial Blood Ionized Calcium Hepatitis C Antibody Crossmatch 07/31/20 08/01/20 08/01/20 23:04 05:22 05:22 WBC RBC 2.26 L Hgb 7.0 L Hct 21.0 L MCV RDW 19.6 H Plt Count 85 L Lymph % (Auto) Mcdonald % (Auto) Lymph # (Auto) Mcdonald # (Auto) Seg Neutrophils % Seg Neuts % (Manual) Lymphocytes % (Manual) Nucleated RBC % Seg Neutrophils # Man Lymphocytes # (Manual) PT INR APTT D-Dimer ABG pH POC ABG pCO2 POC ABG pO2 ABG pO2 ABG HCO3 ABG Base Excess ABG Hemoglobin ABG Oxyhemoglobin ABG Potassium ABG Chloride ABG Glucose Oxyhemoglobin Carboxyhemoglobin Sodium 133 L Potassium Chloride Carbon Dioxide BUN 57 H Creatinine 4.4 H Glucose 166 H POC Glucose 140 H Calcium 7.8 L Phosphorus 5.10 H AST ALT Alkaline Phosphatase Lactate Dehydrogenase CK-MB (CK-2) CK-MB (CK-2) Rel Index Troponin T C-Reactive Protein NT-Pro-B Natriuret Pep Albumin HDL Cholesterol TSH Arterial Blood Glucose Arterial Blood Ionized Calcium Hepatitis C Antibody Crossmatch 08/01/20 08/01/20 08/01/20 05:49 11:18 17:33 WBC RBC Hgb Hct MCV RDW Plt Count Lymph % (Auto) Mcdonald % (Auto) Lymph # (Auto) Mcdonald # (Auto) Seg Neutrophils % Seg Neuts % (Manual) Lymphocytes % (Manual) Nucleated RBC % Seg Neutrophils # Man Lymphocytes # (Manual) PT INR APTT D-Dimer ABG pH POC ABG pCO2 POC ABG pO2 ABG pO2 ABG HCO3 ABG Base Excess ABG Hemoglobin ABG Oxyhemoglobin ABG Potassium ABG Chloride ABG Glucose Oxyhemoglobin Carboxyhemoglobin Sodium Potassium Chloride Carbon Dioxide BUN Creatinine Glucose POC Glucose 154 H 128 H 133 H Calcium Phosphorus AST ALT Alkaline Phosphatase Lactate Dehydrogenase CK-MB (CK-2) CK-MB (CK-2) Rel Index Troponin T C-Reactive Protein NT-Pro-B Natriuret Pep Albumin HDL Cholesterol TSH Arterial Blood Glucose Arterial Blood Ionized Calcium Hepatitis C Antibody Crossmatch 08/01/20 08/02/20 08/02/20 21:32 05:25 05:29 WBC RBC 2.14 L Hgb 6.7 L Hct 20.0 L MCV RDW 19.4 H Plt Count 104 L Lymph % (Auto) Mcdonald % (Auto) Lymph # (Auto) Mcdonald # (Auto) Seg Neutrophils % Seg Neuts % (Manual) Lymphocytes % (Manual) Nucleated RBC % Seg Neutrophils # Man Lymphocytes # (Manual) PT INR APTT D-Dimer ABG pH POC ABG pCO2 POC ABG pO2 ABG pO2 ABG HCO3 ABG Base Excess ABG Hemoglobin ABG Oxyhemoglobin ABG Potassium ABG Chloride ABG Glucose Oxyhemoglobin Carboxyhemoglobin Sodium Potassium Chloride Carbon Dioxide BUN Creatinine Glucose POC Glucose 139 H 145 H Calcium Phosphorus AST ALT Alkaline Phosphatase Lactate Dehydrogenase CK-MB (CK-2) CK-MB (CK-2) Rel Index Troponin T C-Reactive Protein NT-Pro-B Natriuret Pep Albumin HDL Cholesterol TSH Arterial Blood Glucose Arterial Blood Ionized Calcium Hepatitis C Antibody Crossmatch 08/02/20 08/03/20 08/03/20 18:09 04:00 04:00 WBC 11.6 H RBC 2.20 L Hgb 6.7 L Hct 20.4 L MCV RDW 18.8 H Plt Count 127 L Lymph % (Auto) Mcdonald % (Auto) Lymph # (Auto) Mcdonald # (Auto) Seg Neutrophils % Seg Neuts % (Manual) Lymphocytes % (Manual) Nucleated RBC % Seg Neutrophils # Man Lymphocytes # (Manual) PT INR APTT D-Dimer ABG pH POC ABG pCO2 POC ABG pO2 ABG pO2 ABG HCO3 ABG Base Excess ABG Hemoglobin ABG Oxyhemoglobin ABG Potassium ABG Chloride ABG Glucose Oxyhemoglobin Carboxyhemoglobin Sodium Potassium Chloride Carbon Dioxide BUN Creatinine Glucose POC Glucose 141 H Calcium Phosphorus AST ALT Alkaline Phosphatase Lactate Dehydrogenase CK-MB (CK-2) CK-MB (CK-2) Rel Index Troponin T C-Reactive Protein NT-Pro-B Natriuret Pep Albumin HDL Cholesterol TSH Arterial Blood Glucose Arterial Blood Ionized Calcium Hepatitis C Antibody Crossmatch See Detail 08/03/20 08/03/20 08/03/20 04:00 05:33 09:30 WBC RBC Hgb 6.6 L Hct 19.6 L* MCV RDW Plt Count Lymph % (Auto) Mcdonald % (Auto) Lymph # (Auto) Mcdonald # (Auto) Seg Neutrophils % Seg Neuts % (Manual) Lymphocytes % (Manual) Nucleated RBC % Seg Neutrophils # Man Lymphocytes # (Manual) PT INR APTT D-Dimer ABG pH POC ABG pCO2 POC ABG pO2 ABG pO2 ABG HCO3 ABG Base Excess ABG Hemoglobin ABG Oxyhemoglobin ABG Potassium ABG Chloride ABG Glucose Oxyhemoglobin Carboxyhemoglobin Sodium Potassium Chloride Carbon Dioxide BUN 33 H Creatinine 2.7 H Glucose 101 H POC Glucose 117 H Calcium 8.0 L Phosphorus AST ALT Alkaline Phosphatase Lactate Dehydrogenase CK-MB (CK-2) CK-MB (CK-2) Rel Index Troponin T C-Reactive Protein NT-Pro-B Natriuret Pep Albumin HDL Cholesterol TSH Arterial Blood Glucose Arterial Blood Ionized Calcium Hepatitis C Antibody Crossmatch 08/03/20 08/03/20 08/03/20 13:07 17:10 21:18 WBC RBC Hgb Hct MCV RDW Plt Count Lymph % (Auto) Mcdonald % (Auto) Lymph # (Auto) Mcdonald # (Auto) Seg Neutrophils % Seg Neuts % (Manual) Lymphocytes % (Manual) Nucleated RBC % Seg Neutrophils # Man Lymphocytes # (Manual) PT INR APTT D-Dimer ABG pH POC ABG pCO2 POC ABG pO2 ABG pO2 ABG HCO3 ABG Base Excess ABG Hemoglobin ABG Oxyhemoglobin ABG Potassium ABG Chloride ABG Glucose Oxyhemoglobin Carboxyhemoglobin Sodium Potassium Chloride Carbon Dioxide BUN Creatinine Glucose POC Glucose 121 H 139 H 134 H Calcium Phosphorus AST ALT Alkaline Phosphatase Lactate Dehydrogenase CK-MB (CK-2) CK-MB (CK-2) Rel Index Troponin T C-Reactive Protein NT-Pro-B Natriuret Pep Albumin HDL Cholesterol TSH Arterial Blood Glucose Arterial Blood Ionized Calcium Hepatitis C Antibody Crossmatch 08/03/20 08/04/20 08/04/20 23:31 05:21 05:24 WBC 12.8 H RBC 2.59 L Hgb 8.0 L Hct 24.1 L MCV RDW 17.4 H Plt Count Lymph % (Auto) Mcdonald % (Auto) Lymph # (Auto) Mcdonald # (Auto) Seg Neutrophils % Seg Neuts % (Manual) Lymphocytes % (Manual) Nucleated RBC % Seg Neutrophils # Man Lymphocytes # (Manual) PT INR APTT D-Dimer ABG pH POC ABG pCO2 POC ABG pO2 ABG pO2 ABG HCO3 ABG Base Excess ABG Hemoglobin ABG Oxyhemoglobin ABG Potassium ABG Chloride ABG Glucose Oxyhemoglobin Carboxyhemoglobin Sodium Potassium Chloride Carbon Dioxide BUN Creatinine Glucose POC Glucose 124 H 128 H Calcium Phosphorus AST ALT Alkaline Phosphatase Lactate Dehydrogenase CK-MB (CK-2) CK-MB (CK-2) Rel Index Troponin T C-Reactive Protein NT-Pro-B Natriuret Pep Albumin HDL Cholesterol TSH Arterial Blood Glucose Arterial Blood Ionized Calcium Hepatitis C Antibody Crossmatch Allied health notes reviewed: nursing
[2020-08-04] MEDS: ASPIRIN 81 MG TAB CHEW PO SCH (13:30)
[2020-08-04] MEDS: FAMOTIDINE 20 MG TAB PO SCH (13:30)
[2020-08-04] MEDS: FOLIC ACID 1 MG TAB PO SCH (13:30)
[2020-08-04] MEDS: THIAMINE 100 MG TAB PO SCH (13:31)
--- NOTE | 2020-08-04 15:31 | Progress Note ---
Assessment and Plan - Patient Problems (1) Acute on chronic renal failure Current Visit: Yes Status: Acute Qualifiers: Acute renal failure type: unspecified Chronic kidney disease stage: stage 3 (moderate) Chronic kidney disease stage 3 subtype: stage 3a (GFR 45-59) Qualified Code(s): N17.9 - Acute kidney failure, unspecified; N18.31 - Chronic kidney disease, stage 3a Plan to address problem: Acute on chronic kidney disease which was still worsening. Patient did not respond to IV diuretics. Hyperkalemia and metabolic acidosis were persisting. Dialysis was started 07/23/20. Tolerating dialysis with no complications. Continue Dialysis and monitor response (2) Anasarca Current Visit: Yes Status: Acute Plan to address problem: Patient has not responded to aggressive IV diuretics. Volume status is improved. Continue dialysis 3 times a week and only do ultrafiltration as indicated (3) Hyperkalemia Current Visit: Yes Status: Acute Plan to address problem: Hyperkalemia persisted despite medical management consult patient was started on dialysis for solute control. 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 Patient has not responded to intravenous diuretics. Dialysis was started for fluid removal. (5) Sepsis Current Visit: Yes Status: Suspected Qualifiers: Sepsis type: sepsis due to unspecified organism Sepsis acute organ dysfunction status: with acute organ dysfunction Severe sepsis acute organ dysfunction type: acute renal failure Acute renal failure type: unspecified Severe sepsis shock status: without septic shock Qualified Code(s): A41.9 - Sepsis, unspecified organism; R65.20 - Severe sepsis without septic shock; N17.9 - Acute kidney failure, unspecified (6) Hypertensive chronic kidney disease with stage 1 through stage 4 chronic kidney disease, or unspecified chronic kidney disease Current Visit: No Status: Acute Plan to address problem: Blood pressure is improving. Follow-up (7) Type 2 diabetes mellitus with diabetic nephropathy Current Visit: No Status: Acute Plan to address problem: Blood sugar management by primary attending (8) Anoxic encephalopathy Current Visit: Yes Status: Acute Plan to address problem: No significant improvement. Subjective Date of service: 08/04/20 Principal diagnosis: RACQUEL Interval history: Patient seen lying in bed. Intubated on the ventilator. Not interacting. Extensor reflex on stimulating Objective - Exam Narrative Exam: Middle-aged -[place] male lying in bed intubated on ventilator HEENT: NCAT, endotracheal tube intact Neck: Supple, no venous distention CVS: S1S2 RRR with no murmur, rub or gallop Chest: Coarse breath sounds Abdomen: Protuberant, soft, nontender, no organomegaly, bowel sounds are present Extremities: mild edemathighs, wrinkled skin in both legs with hyperpigmentation Genitourinary deferred Skin with hyperpigmentation especially in the legs and feet, dressing right leg Neuro: Grimaces with extensor reflex on stimulation - Vital Signs Vital signs: Vital Signs - 12hr 08/04/20 08/04/20 08/04/20 04:00 05:01 06:01 Temperature Pulse Rate 100 H 126 H 102 H Pulse Rate [ 101 H From Monitor] Respiratory 22 11 L 16 Rate Blood Pressure 121/57 109/61 126/64 O2 Sat by Pulse 91 89 Oximetry O2 Sat by Pulse Oximetry [ Anterior Bilateral Throughout] O2 Sat by Pulse Oximetry [ Anterior Right] 08/04/20 08/04/20 08/04/20 06:53 07:00 08:00 Temperature 100.8 F H Pulse Rate 96 H 94 H 95 H Pulse Rate [ From Monitor] Respiratory 18 15 Rate Blood Pressure 120/66 117/65 109/56 O2 Sat by Pulse 100 99 Oximetry O2 Sat by Pulse Oximetry [ Anterior Bilateral Throughout] O2 Sat by Pulse Oximetry [ Anterior Right] 08/04/20 08/04/20 08/04/20 08:57 09:00 10:00 Temperature 100.8 F H Pulse Rate 103 H 100 H 97 H Pulse Rate [ From Monitor] Respiratory 18 18 18 Rate Blood Pressure 114/59 115/58 111/58 O2 Sat by Pulse 99 99 100 Oximetry O2 Sat by Pulse 100 Oximetry [ Anterior Bilateral Throughout] O2 Sat by Pulse 100 Oximetry [ Anterior Right] 08/04/20 08/04/20 08/04/20 10:10 10:15 10:30 Temperature Pulse Rate 97 H 94 H 95 H Pulse Rate [ From Monitor] Respiratory Rate Blood Pressure 111/55 113/59 115/61 O2 Sat by Pulse Oximetry O2 Sat by Pulse Oximetry [ Anterior Bilateral Throughout] O2 Sat by Pulse Oximetry [ Anterior Right] 08/04/20 08/04/20 08/04/20 10:45 11:00 11:15 Temperature Pulse Rate 93 H 93 H 93 H Pulse Rate [ From Monitor] Respiratory 16 Rate Blood Pressure 112/63 110/61 108/62 O2 Sat by Pulse 100 Oximetry O2 Sat by Pulse Oximetry [ Anterior Bilateral Throughout] O2 Sat by Pulse Oximetry [ Anterior Right] 08/04/20 08/04/20 08/04/20 11:30 11:45 12:00 Temperature Pulse Rate 93 H 91 H 90 Pulse Rate [ From Monitor] Respiratory 14 Rate Blood Pressure 108/61 114/65 107/61 O2 Sat by Pulse 100 Oximetry O2 Sat by Pulse Oximetry [ Anterior Bilateral Throughout] O2 Sat by Pulse Oximetry [ Anterior Right] 08/04/20 08/04/20 08/04/20 12:10 12:18 13:26 Temperature 100.8 F H Pulse Rate 91 H 90 92 H Pulse Rate [ From Monitor] Respiratory 14 15 Rate Blood Pressure 113/62 113/62 116/62 O2 Sat by Pulse Oximetry O2 Sat by Pulse 100 Oximetry [ Anterior Bilateral Throughout] O2 Sat by Pulse Oximetry [ Anterior Right] 08/04/20 08/04/20 13:30 15:18 Temperature Pulse Rate 89 94 H Pulse Rate [ From Monitor] Respiratory 14 Rate Blood Pressure 125/68 112/61 O2 Sat by Pulse 100 Oximetry O2 Sat by Pulse Oximetry [ Anterior Bilateral Throughout] O2 Sat by Pulse Oximetry [ Anterior Right] - Lab 08/04/20 05:24 08/03/20 04:00 Most recent lab results ABG pH 7.520 pH Units (7.350-7.450) H 07/27/20 05:20 ABG pCO2 33.5 mm Hg 07/27/20 05:20 ABG pO2 64.2 mm Hg (80.0-90.0) L 07/27/20 05:20 ABG HCO3 26.8 mmol/L (20.0-26.0) H 07/27/20 05:20 ABG O2 Saturation 95.8 % (95.0-99.0) 07/27/20 05:20 Calcium 8.0 mg/dL (8.4-10.2) L 08/03/20 04:00 Phosphorus 3.40 mg/dL (2.5-4.5) 08/03/20 04:00 Magnesium 1.80 mg/dL (1.7-2.3) 08/03/20 04:00 Medications & Allergies - Medications Allergies/Adverse Reactions: Allergies No Known Allergies Allergy (Verified 06/19/19 17:53) Home Medications: Home Medications Medication Instructions Recorded Confirmed Last Taken Type FLUoxetine [PROzac] 20 mg PO QDAY #14 capsule 06/23/19 06/21/20 Unknown Rx traZODone [Desyrel] 50 mg PO QHS #10 tablet 06/23/19 06/21/20 Unknown Rx Folic Acid 1 mg PO DAILY #30 tablet 06/25/19 06/21/20 Unknown Rx Nicotine [Habitrol] 14 mg TD DAILY #30 patch 06/25/19 06/21/20 Unknown Rx Thiamine [Vitamin B-1] 100 mg PO QDAY #30 tablet 06/25/19 06/21/20 Unknown Rx Aspirin EC [Halfprin EC] 81 mg PO QDAY #30 tablet. 07/26/19 06/21/20 Unknown Rx levETIRAcetam [Keppra TAB] 750 mg PO BID #60 tablet 07/26/19 06/21/20 Unknown Rx Furosemide [Lasix TAB] 40 mg PO QDAY #30 tablet 04/28/20 06/21/20 Unknown Rx Famotidine [Pepcid] 20 mg PO BID #60 tablet 07/05/20 Unknown Rx Insulin NPH, Human [NovoLIN N] 5 unit SUB-Q BIDDIAB 30 Days #10 ml 07/05/20 06/21/20 Unknown Rx amLODIPine 10 mg PO QDAY #30 tablet 07/05/20 Unknown Rx carvediloL [Coreg] 12.5 mg PO BID #60 tablet 07/05/20 Unknown Rx hydrALAZINE [Apresoline TAB] 50 mg PO Q8HR #30 tablet 07/06/20 Unknown Rx Active Medications: Generic Name Dose Route Start Last Admin Trade Name Freq PRN Reason Stop Dose Admin Lipase/Protease/Amylase 1 each 07/23/20 14:17 Lipase 10,500/Protease 25,000/Amylase 43,750 (Units) Dr Shell FEEDTUBE PRN PRN For Clogged Feeding Tube Aspirin 81 mg 08/01/20 10:00 08/04/20 13:30 Aspirin 81 Mg Tab Chew PO 81 mg QDAY JODIE Administration Atropine Sulfate 1 mg 07/23/20 09:03 07/23/20 22:15 Atropine 0.1% (1 Mg/10 Ml) Cardiac Syringe IV 1 mg PRN PRN Administration Bradycardia Dextrose 50 ml 07/23/20 03:28 07/23/20 06:00 Dextrose 50% In Water (25gm) 50 Ml Syringe IV 50 ml Q30MIN PRN Administration Hypoglycemia Protocol Famotidine 20 mg 07/18/20 22:00 08/04/20 13:30 Famotidine 20 Mg Tab PO 20 mg DAILY JODIE Administration Folic Acid 1 mg 07/19/20 10:00 08/04/20 13:30 Folic Acid 1 Mg Tab PO 1 mg DAILY JODIE Administration Hydralazine HCl 50 mg 07/18/20 14:00 08/04/20 13:30 Hydralazine 25 Mg Tab PO 50 mg Q8HR JODIE Administration Hydralazine HCl 20 mg 07/22/20 14:02 Hydralazine 20 Mg/1 Ml Inj IV Q4HR PRN Blood Pressure Hydrophilic Ointment 1 applic 07/22/20 10:02 Lip Therapy Vaseline TP Q2HR PRN Dry Lips Norepinephrine 4 mg in 250 mls @ 7.5 mls/hr 07/24/20 10:00 07/24/20 15:35 Levophed Drip 4 Mg/Ns 250 Ml IV 0 mcg/min TITR JODIE 0 mls/hr Titration Protocol 2 MCG/MIN Sodium Chloride 100 mls @ 999 mls/hr 08/03/20 15:05 Nacl 0.9% IV FRANCISCO PRN Hypotension Insulin Glargine 5 units 08/03/20 22:00 08/03/20 21:29 Insulin Glargine 100 Units/Ml SUB-Q 5 units QHS JODIE Administration Insulin Human Lispro 0 unit 07/26/20 10:00 08/04/20 13:32 Insulin Lispro 100 Unit/Ml SUB-Q 2 unit Q6HR JODIE Administration Protocol Levetiracetam 750 mg 07/18/20 22:00 08/04/20 12:00 Levetiracetam 500 Mg/5 Ml Oral Liqd PO 750 mg BID JODIE Administration Multi-Ingred Cream/Lotion/Oil/Oint 1 applic 07/22/20 10:02 Mineral Oil/Petrolatum, White Ophth Oint 3.5 Gm OU Q4HR PRN Dry Eye(s) Scopolamine 1 each 07/31/20 10:00 08/03/20 09:19 Scopolamine Transdermal Patch 72 Hr TD 1 each Q3D JODIE Administration Simple Syrup 15 ml 07/23/20 14:17 Simple Syrup 15 Ml FEEDTUBE PRN PRN Hypoglycemia Simple Syrup 30 ml 07/23/20 14:17 Simple Syrup 15 Ml FEEDTUBE PRN PRN Hypoglycemia Sodium Bicarbonate 325 mg 07/23/20 14:17 Sodium Bicarbonate 325 Mg Tab FEEDTUBE PRN PRN For Clogged Feeding Tube Thiamine HCl 100 mg 07/19/20 10:00 08/04/20 13:31 Thiamine 100 Mg Tab PO 100 mg QDAY JODIE Administration
[2020-08-04] MEDS ORDERED: MIDAZOLAM 2 MG/2 ML INJ IV ONE (17:00)
--- NOTE | 2020-08-04 17:32 | XRay Report ---
CHEST 1 VIEW 08/04/2020 5:15 PM INDICATION / CLINICAL INFORMATION: ETT PLACEMENT. COMPARISON: 08/03/2020. FINDINGS: SUPPORT DEVICES: The endotracheal tube tip projects approximately 4 cm superior to the julee. Remain ing support lines and tubes are unchanged. HEART / MEDIASTINUM: Stable. LUNGS / PLEURA: No significant change in cardiopulmonary appearances. No pneumothorax. ADDITIONAL FINDINGS: No significant additional findings. IMPRESSION: 1. Endotracheal tube in expected position. Signer Name: Gwyn Davis MD Signed: 08/04/2020 5:28 PM Workstation Name: [id number]
[2020-08-04] MEDS: INSULIN GLARGINE 100 UNITS/ML SUB-Q SCH (23:23)
[2020-08-05 05:53] LABS: Basophils # (Auto) 0.1 K/mm3 (0.0-0.1); Basophils % (Auto) 0.6 % (0.0-1.8); Eosinophils # (Auto) 0.1 K/mm3 (0.0-0.4); Eosinophils % (Auto) 0.9 % (0.0-4.3); Hematocrit 21.3 % (35.5-45.6); Hemoglobin 7.1 gm/dl (11.8-15.2); Lymphocytes # (Auto) 1.6 K/mm3 (1.2-5.4); Lymphocytes % (Auto) 16.1 % (13.4-35.0); Mean Corpuscular HGB Conc 34 % (32-34); Mean Corpuscular Volume 94 fl (84-94); Monocytes # (Auto) 0.6 K/mm3 (0.0-0.8); Monocytes % (Auto) 6.1 % (0.0-7.3); Platelet Count 150 K/mm3 (140-440); Red Blood Count 2.27 M/mm3 (3.65-5.03); Red Cell Distribution Width 17.1 % (13.2-15.2)
[2020-08-05] MEDS: hydrALAZINE 25 MG TAB PO SCH ×3 (06:55→21:25)
[2020-08-05] MEDS: INSULIN LISPRO 100 UNIT/ML SUB-Q SCH ×4 (06:56→17:49)
[2020-08-05 06:57] LABS: Calcium 7.9 mg/dL (8.4-10.2)
--- NOTE | 2020-08-05 09:20 | Progress Note ---
Assessment and Plan Assessment and plan: Acute on chronic kidney disease stage III Nephrology consulted, appreciate recommendations Vasomotor nephropathy, Nephrology initiated hemodialysis Management per nephrology, HD per schedule -Acute hypoxic respiratory failure Intubated 07/22/2020 s/p respiratory arrest CCM consulted, appreciate recommendations VAP bundle, wean as tolerated -Non-STEMI type II Likely secondary to respiratory failure, CKD Cardiology consulted, appreciate recommendations -Hyponatremia Electrolyte correction with HD -Acute toxic metabolic encephalopathy; CT head without contrast, no acute abnormality Neurology consulted, appreciate recommendations EEG findings compatible with sleep wake cycle 08/02 repeat EEG overall depressed, MRI brain pending -Severe protein calorie malnutrition/hypoalbuminemia, nutrition supplements, tube feeding, nutrition consult -Thrombocytopenia HIT antibodies negative Trend CBC -Hypothermia Symptomatic treatment -h/o right calf abscess -h/o MSSA sepsis Infectious disease consulted, appreciate recommendations s/p Unasyn, completed 07/24 -Type 2 diabetes mellitus Blood sugars in the lower range, avoid hypoglycemia Accu-Chek sliding scale coverage ADA diet Long-acting insulin as needed, HbA1c 8.3 last month -Acute on chronic systolic CHF EF 35 to 40% [04/2020] Continue antifailure medications Cardiology consulted, appreciate recommendations -History of seizure disorder Seizure precautions, continue Keppra -History of CVA; with residual weakness Fall precautions, PT OT as needed -DVT prophylaxis: thrombocytopenia, no anticoagulation. Continue SCDs -GI prophylaxis: PPI Dispo: ICU The high probability of a clinically significant, sudden or life threatening deterioration of the [multi] system(s) required my full and direct attention, intervention and personal management. The aggregate critical care time was [35] minutes. This time is in addition to time spent performing reported procedures but includes the following: [x] Data Review and interpretation [x] Patient assessment and monitoring of vital signs [x] Documentation [x] Medication orders and management History Interval history: This is 65-year-old male with diabetes mellitus, chronic kidney disease, CVA with residual weakness admitted to the hospitalist service with altered level consciousness and unresponsiveness. Patient started to be in sepsis secondary to MSSA bacteremia long-term antibiotics and his renal function progressively deteriorated. Patient initially refused outpatient dialysis then went into respiratory arrest requiring intubation and mechanical ventilation and was transferred to ICU. Patient family gave consent for hemodialysis and the patient remains intubated in the ICU. [facility], nephrology, cardiology and vascular surgery were consulted for care. Sepsis Acute on chronic kidney disease stage III Acute hypoxic respiratory failure NSTEMI type II Hyponatremia Anemia of chronic disease Acute toxic metabolic encephalopathy Severe protein calorie malnutrition/hypoalbuminemia Thrombocytopenia MSSA sepsis Type 2 diabetes mellitus Acute on chronic systolic congestive heart failure, EF 30 to 45% Seizure disorder CVA 07/19/2020; unable to pass Ayala catheter, consulted urology, continue supportive care, COVID-19 test negative 07/20/2020; urology evaluation recommendation noted and appreciated. Ayala catheter was inserted by urology, draining well, MSSA bacteremia on long-term antibiotics 07/21/2020; patient is lethargic, CT head without contrast, no acute abnormality, Patient is afebrile 07/22/2020; patient had acute respiratory failure this morning. JEFFERY IBARRA was called, patient was intubated on ventilatory support, pulmonary critical consulted, family patients aunt informed 07/23/2020; patient has severe bradycardia this morning, received atropine, Cardiology following. Beta-blockers held, electrolytes corrected. Patient's heart rate improved to 50s and 60s Cardiology following. Nephrology planning hemodialysis trying to get consent from family 07/24/2020; patient received hemodialysis yesterday. Remains intubated on ventilatory support. Bradycardia significantly improved heart rate in 60s. Completed 6 weeks of Unasyn for MSSA sepsis today 07/25/2020; patient remains on ventilatory support. Receiving HD per schedule dual. Wean as tolerated and extubate 07/26/2020; patient remains on ventilatory support, wean as tolerated and extubate. Initiated hemodialysis, HD per schedule, new set of blood culture sent 07/30: No acute events reported overnight. Patient remains unresponsive without sedation in the CT head was obtained which showed interval development of extensive hypoattenuation in the cerebral white matter, corpus callosum, globus thalami and probable indented nuclei finding likely test of global hypoxic ischemic injury with no acute hemorrhage or mass-effect. We consulted neurology and ordered an EEG for further work-up. no acute events reported overnight. He remains on MV. 07/31: PSV trials, HD per renal, bear hugger in place is unable to obtain temperature. Neurology consult and EEG pending. No acute events reported overnight. No acute events reported overnight. 08/01: This morning patient still has his giuseppe hugger in place, remains hyponatremic and hypokalemic and hypophosphatemic. Patient's H/H is 11/28. Patient remains on CMV 450-12-6/0.25 at the time of examination. Patient's CT head showed hypoxia/ischemic brain injury however his EEG was interpreted as normal awake and sleep pattern. Patient was given a trial dose of Narcan for CCM without improvement. Will order repeat EEG per neurology. No acute events reported overnight. 08/02: Patient had a repeat EEG which showed depressed activity and an MRI brain is pending. Patient's H/H is 6.7/20 and we will transfuse PRBC with HD to avoid volume overload. At the time of my examination patient was on CMV 450/12/6/0.25. Patient was given 1 mg Ativan for relaxation to better assess source of bloody secretions in mouth. 08/03: MRI of brain pending, hemoglobin remained at 6.7 and patient will be transfused 1 unit PRBC today with hemodialysis we will obtain a posttransfusion H/H. At the time my examination patient remains on CMV 450/12/6/0.40 with no improvement to neuro status. 08/04/2020; MRI of the brain was done but reading is pending. He was transfused a unit of blood and hemoglobin this morning was 8. Patient has low-grade fever. Neurology is following. Prognosis very poor 08/05/2020;MRI of the brain was done but reading is pending. He was transfused a unit of blood and hemoglobin this morning was 8. Patient has low-grade fever. Neurology is following. Prognosis very poor History Interval history: Patient was seen and evaluated this morning Patient was intubated, nonresponsive Hospitalist Physical - Physical exam Narrative exam: Patient is on mechanical ventilation The patient appeared well nourished and normally developed. Vital signs as documented. Head exam is unremarkable. No scleral icterus . Neck is without jugular venous distension, thyromegaly, or carotid bruits. Lungs are clear to auscultation. Cardiac exam reveals regular rate and Rhythm. Abdominal exam reveals normal bowel sounds, nontender, no organomegaly. Extremities are nonedematous and both femoral and pedal pulses are normal. CONTACT CLERK: Unresponsive - Constitutional Vitals: Temp Pulse Resp BP Pulse Ox 97.3 F L 79 18 99/58 100 08/05/20 08:00 08/05/20 08:00 08/05/20 08:00 08/05/20 08:00 08/05/20 08:00 General appearance: Present: no acute distress, well-nourished HEART Score - HEART Score Troponin: Troponin T 0.047 ng/mL (0.00-0.029) H 07/22/20 10:30 Results - Labs CBC & Chem 7: 08/05/20 05:35 08/05/20 05:35 Labs: Laboratory Last Values WBC 9.8 K/mm3 (4.5-11.0) 08/05/20 05:35 RBC 2.27 M/mm3 (3.65-5.03) L 08/05/20 05:35 Hgb 7.1 gm/dl (11.8-15.2) L 08/05/20 05:35 Hct 21.3 % (35.5-45.6) L 08/05/20 05:35 MCV 94 fl (84-94) 08/05/20 05:35 MCH 31 pg (28-32) 08/05/20 05:35 MCHC 34 % (32-34) 08/05/20 05:35 RDW 17.1 % (13.2-15.2) H 08/05/20 05:35 Plt Count 150 K/mm3 (140-440) 08/05/20 05:35 Lymph % (Auto) 16.1 % (13.4-35.0) 08/05/20 05:35 [place] % (Auto) 6.1 % (0.0-7.3) 08/05/20 05:35 Eos % (Auto) 0.9 % (0.0-4.3) 08/05/20 05:35 Baso % (Auto) 0.6 % (0.0-1.8) 08/05/20 05:35 Lymph # (Auto) 1.6 K/mm3 (1.2-5.4) 08/05/20 05:35 [place] # (Auto) 0.6 K/mm3 (0.0-0.8) 08/05/20 05:35 Eos # (Auto) 0.1 K/mm3 (0.0-0.4) 08/05/20 05:35 Baso # (Auto) 0.1 K/mm3 (0.0-0.1) 08/05/20 05:35 Add Manual Diff Complete 07/27/20 06:36 Total Counted 100 07/27/20 06:36 Seg Neutrophils % 76.3 % (40.0-70.0) H 08/05/20 05:35 Seg Neuts % (Manual) 88.0 % (40.0-70.0) H 07/27/20 06:36 Lymphocytes % (Manual) 11.0 % (13.4-35.0) L 07/27/20 06:36 Monocytes % (Manual) 1.0 % (0.0-7.3) 07/27/20 06:36 Nucleated RBC % 2.0 % (0.0-0.9) H 07/27/20 06:36 Seg Neutrophils # 7.5 K/mm3 (1.8-7.7) 08/05/20 05:35 Seg Neutrophils # Man 8.9 K/mm3 (1.8-7.7) H 07/27/20 06:36 Band Neutrophils # 0.0 K/mm3 07/27/20 06:36 Lymphocytes # (Manual) 1.1 K/mm3 (1.2-5.4) L 07/27/20 06:36 Abs React Lymphs (Man) 0.0 K/mm3 07/27/20 06:36 Monocytes # (Manual) 0.1 K/mm3 (0.0-0.8) 07/27/20 06:36 Eosinophils # (Manual) 0.0 K/mm3 (0.0-0.4) 07/27/20 06:36 Basophils # (Manual) 0.0 K/mm3 (0.0-0.1) 07/27/20 06:36 Metamyelocytes # 0.0 K/mm3 07/27/20 06:36 Myelocytes # 0.0 K/mm3 07/27/20 06:36 Promyelocytes # 0.0 K/mm3 07/27/20 06:36 Blast Cells # 0.0 K/mm3 07/27/20 06:36 WBC Morphology Not Reportable 07/27/20 06:36 Hypersegmented Neuts Not Reportable 07/27/20 06:36 Hyposegmented Neuts Not Reportable 07/27/20 06:36 Hypogranular Neuts Not Reportable 07/27/20 06:36 Smudge Cells Not Reportable 07/27/20 06:36 Toxic Granulation Not Reportable 07/27/20 06:36 Toxic Vacuolation Not Reportable 07/27/20 06:36 Dohle Bodies Not Reportable 07/27/20 06:36 Pelger-Huet Anomaly Not Reportable 07/27/20 06:36 Clint Rods Not Reportable 07/27/20 06:36 Platelet Estimate Consistent w auto 07/27/20 06:36 Clumped Platelets Not Reportable 07/27/20 06:36 Plt Clumps, EDTA Not Reportable 07/27/20 06:36 Large Platelets Not Reportable 07/27/20 06:36 Giant Platelets Not Reportable 07/27/20 06:36 Platelet Satelliting Not Reportable 07/27/20 06:36 Plt Morphology Comment Not Reportable 07/27/20 06:36 RBC Morphology Not Reportable 07/27/20 06:36 Dimorphic RBCs Not Reportable 07/27/20 06:36 Polychromasia Not Reportable 07/27/20 06:36 Hypochromasia Not Reportable 07/27/20 06:36 Poikilocytosis Not Reportable 07/27/20 06:36 Anisocytosis Few 07/27/20 06:36 Microcytosis Not Reportable 07/27/20 06:36 Macrocytosis Not Reportable 07/27/20 06:36 Spherocytes Not Reportable 07/27/20 06:36 Pappenheimer Bodies Not Reportable 07/27/20 06:36 Sickle Cells Not Reportable 07/27/20 06:36 Target Cells Not Reportable 07/27/20 06:36 Tear Drop Cells Not Reportable 07/27/20 06:36 Ovalocytes Not Reportable 07/27/20 06:36 Helmet Cells Not Reportable 07/27/20 06:36 [place] Bodies Not Reportable 07/27/20 06:36 [place] Rings Not Reportable 07/27/20 06:36 Sae Cells Not Reportable 07/27/20 06:36 Bite Cells Not Reportable 07/27/20 06:36 Crenated Cell Not Reportable 07/27/20 06:36 Elliptocytes Not Reportable 07/27/20 06:36 Acanthocytes (Spur) Not Reportable 07/27/20 06:36 Rouleaux Not Reportable 07/27/20 06:36 Hemoglobin C Crystals Not Reportable 07/27/20 06:36 Schistocytes Rare 07/27/20 06:36 Malaria parasites Not Reportable 07/27/20 06:36 Carl Bodies Not Reportable 07/27/20 06:36 Hem Pathologist Commnt No 07/27/20 06:36 PT 15.9 Sec. (12.2-14.9) H 07/22/20 10:30 INR 1.27 (0.87-1.13) H 07/22/20 10:30 APTT 38.3 Sec. (24.2-36.6) H 07/22/20 10:30 D-Dimer 1036.46 ng/mlDDU (0-234) H 07/18/20 08:56 Heparin Anti-Xa, Unfract Negative (Negative) 07/23/20 08:54 ABG pH 7.520 pH Units (7.350-7.450) H 07/27/20 05:20 POC ABG pCO2 32.7 mmHg (32.0-48.0) 07/25/20 03:57 ABG pCO2 33.5 mm Hg 07/27/20 05:20 POC ABG pO2 62.7 mmHg (83-108) L 07/25/20 03:57 ABG pO2 64.2 mm Hg (80.0-90.0) L 07/27/20 05:20 POC ABG HCO3 24.8 07/25/20 03:57 ABG HCO3 26.8 mmol/L (20.0-26.0) H 07/27/20 05:20 ABG O2 Saturation 95.8 % (95.0-99.0) 07/27/20 05:20 ABG O2 Content 9.5 (0.0-44) 07/27/20 05:20 POC ABG Base Excess 1.7 07/25/20 03:57 ABG Base Excess 3.7 mmol/L (-2.0-3.0) H 07/27/20 05:20 ABG Hemoglobin 7.2 gm/dl (14.0-18.0) L 07/27/20 05:20 ABG Oxyhemoglobin 90.1 (94-98) L 07/25/20 03:57 ABG Carboxyhemoglobin 2.3 % (0.0-5.0) 07/27/20 05:20 ABG Methemoglobin 0.5 % (0.0-1.5) 07/27/20 05:20 ABG Sodium 138.7 mmol/L (136.0-145.0) 07/25/20 03:57 ABG Potassium 4.0 mmol/L (3.40-4.50) 07/25/20 03:57 ABG Chloride 110.0 mmol/L (98-107) H 07/25/20 03:57 ABG Glucose 157 mg/dL (65-95) H 07/25/20 03:57 Oxyhemoglobin 93.2 % (95.0-99.0) L 07/27/20 05:20 Carboxyhemoglobin 1.1 (0.5-1.5) 07/25/20 03:57 FiO2 25 % 07/27/20 05:20 FiO2 % 40 07/25/20 03:57 Sodium 139 mmol/L (137-145) 08/05/20 05:35 Potassium 3.6 mmol/L (3.6-5.0) 08/05/20 05:35 Chloride 101.4 mmol/L (98-107) 08/05/20 05:35 Carbon Dioxide 31 mmol/L (22-30) H 08/05/20 05:35 Anion Gap 10 mmol/L 08/05/20 05:35 BUN 41 mg/dL (9-20) H 08/05/20 05:35 Creatinine 3.2 mg/dL (0.8-1.3) H 08/05/20 05:35 Estimated GFR 24 ml/min 08/05/20 05:35 BUN/Creatinine Ratio 13 % 08/05/20 05:35 Glucose 178 mg/dL (75-100) H 08/05/20 05:35 POC Glucose 166 mg/dL (70-105) H 08/05/20 06:06 Lactic Acid 0.80 mmol/L (0.7-2.0) 07/18/20 08:56 Calcium 7.9 mg/dL (8.4-10.2) L 08/05/20 05:35 Phosphorus 3.40 mg/dL (2.5-4.5) 08/03/20 04:00 Magnesium 1.80 mg/dL (1.7-2.3) 08/03/20 04:00 Ferritin 198.6 ng/mL (30.0-300.0) 07/18/20 10:36 Total Bilirubin 0.30 mg/dL (0.1-1.2) 07/22/20 10:30 Direct Bilirubin 0.2 mg/dL (0-0.2) 07/19/20 06:00 Indirect Bilirubin 0.2 mg/dL 07/19/20 06:00 AST 66 units/L (5-40) H 07/22/20 10:30 ALT < 5 units/L (7-56) L 07/22/20 10:30 Alkaline Phosphatase 604 units/L (35-129) H 07/22/20 10:30 Ammonia 41.0 umol/L (25-60) 07/18/20 08:56 Lactate Dehydrogenase 212 units/L (91-180) H 07/18/20 10:36 Total Creatine Kinase 67 units/L (55-170) 07/22/20 10:30 CK-MB (CK-2) 10.9 ng/mL (0.0-4.0) H 07/22/20 10:30 CK-MB (CK-2) Rel Index 16.2 (0-4) H 07/22/20 10:30 Troponin T 0.047 ng/mL (0.00-0.029) H 07/22/20 10:30 C-Reactive Protein 2.10 mg/dL (0.00-1.30) H 07/18/20 10:36 NT-Pro-B Natriuret Pep 4777 pg/mL (0-900) H 07/18/20 08:56 Total Protein 6.4 g/dL (6.3-8.2) 07/22/20 10:30 Albumin 2.1 g/dL (3.9-5) L 07/22/20 10:30 Albumin/Globulin Ratio 0.5 % 07/22/20 10:30 Triglycerides 65 mg/dL (2-149) 07/18/20 08:56 Cholesterol 157 mg/dL (50-199) 07/18/20 08:56 LDL Cholesterol Direct 95 mg/dL (50-130) 07/18/20 08:56 HDL Cholesterol 67 mg/dL (40-59) H 07/18/20 08:56 Cholesterol/HDL Ratio 2.34 % 07/18/20 08:56 Procalcitonin 0.10 ng/mL (<0.15) 07/18/20 10:36 TSH 5.520 mlU/mL (0.270-4.200) H 07/18/20 08:56 Free T4 0.84 ng/dL (0.76-1.46) 07/18/20 08:56 Arterial Blood Glucose 157 mg/dL (65-95) H 07/25/20 03:57 Arterial Blood Ionized Calcium 4.3 mg/dL (4.6-5.3) L 07/25/20 03:57 Random Vancomycin 11.5 ug/mL (0-40.0) 07/28/20 05:00 Heparin-induced Plt Ab Negative (Negative) 07/23/20 08:54 UF Heparin High Dose 0 % Release 07/23/20 08:54 MAGEN UFH Low Dose 0.1 0 % Release 07/23/20 08:54 MAGEN UFH Low Dose 0.5 0 % Release 07/23/20 08:54 Coronavirus (PCR) Negative (Negative) 07/18/20 12:07 Hepatitis A IgM Ab Non-reactive (NonReactive) 07/23/20 19:20 Hep Bs Antigen Non-reactive (Negative) 07/23/20 19:20 Hep B Core IgM Ab Non-reactive (NonReactive) 07/23/20 19:20 Hepatitis C Antibody Reactive (NonReactive) A 07/23/20 19:20 Blood Type A POSITIVE 08/03/20 04:00 Antibody Screen Negative 08/03/20 04:00 Crossmatch See Detail 08/03/20 04:00 Ayala/IV: Voiding Method Incontinent Active Medications - Current Medications Current Medications: Generic Name Dose Route Start Last Admin Trade Name Freq PRN Reason Stop Dose Admin Lipase/Protease/Amylase 1 each 07/23/20 14:17 Lipase 10,500/Protease 25,000/Amylase 43,750 (Units) Dr Shell FEEDTUBE PRN PRN For Clogged Feeding Tube Aspirin 81 mg 08/01/20 10:00 08/04/20 13:30 Aspirin 81 Mg Tab Chew PO 81 mg QDAY JODIE Administration Atropine Sulfate 1 mg 07/23/20 09:03 07/23/20 22:15 Atropine 0.1% (1 Mg/10 Ml) Cardiac Syringe IV 1 mg PRN PRN Administration Bradycardia Dextrose 50 ml 07/23/20 03:28 07/23/20 06:00 Dextrose 50% In Water (25gm) 50 Ml Syringe IV 50 ml Q30MIN PRN Administration Hypoglycemia Protocol Famotidine 20 mg 07/18/20 22:00 08/04/20 13:30 Famotidine 20 Mg Tab PO 20 mg DAILY JODIE Administration Folic Acid 1 mg 07/19/20 10:00 08/04/20 13:30 Folic Acid 1 Mg Tab PO 1 mg DAILY JODIE Administration Hydralazine HCl 50 mg 07/18/20 14:00 08/05/20 06:55 Hydralazine 25 Mg Tab PO 50 mg Q8HR JODIE Administration Hydralazine HCl 20 mg 07/22/20 14:02 Hydralazine 20 Mg/1 Ml Inj IV Q4HR PRN Blood Pressure Hydrophilic Ointment 1 applic 07/22/20 10:02 Lip Therapy Vaseline TP Q2HR PRN Dry Lips Norepinephrine 4 mg in 250 mls @ 7.5 mls/hr 07/24/20 10:00 07/24/20 15:35 Levophed Drip 4 Mg/Ns 250 Ml IV 0 mcg/min TITR JODIE 0 mls/hr Titration Protocol 2 MCG/MIN Sodium Chloride 100 mls @ 999 mls/hr 08/03/20 15:05 Nacl 0.9% IV FRANCISCO PRN Hypotension Insulin Glargine 5 units 08/03/20 22:00 08/04/20 23:23 Insulin Glargine 100 Units/Ml SUB-Q 5 units QHS JODIE Administration Insulin Human Lispro 0 unit 07/26/20 10:00 08/05/20 06:57 Insulin Lispro 100 Unit/Ml SUB-Q 2 unit Q6HR JODIE Administration Protocol Levetiracetam 750 mg 07/18/20 22:00 08/04/20 23:24 Levetiracetam 500 Mg/5 Ml Oral Liqd PO 750 mg BID JODIE Administration Multi-Ingred Cream/Lotion/Oil/Oint 1 applic 07/22/20 10:02 Mineral Oil/Petrolatum, White Ophth Oint 3.5 Gm OU Q4HR PRN Dry Eye(s) Scopolamine 1 each 07/31/20 10:00 08/03/20 09:19 Scopolamine Transdermal Patch 72 Hr TD 1 each Q3D JODIE Administration Simple Syrup 15 ml 07/23/20 14:17 Simple Syrup 15 Ml FEEDTUBE PRN PRN Hypoglycemia Simple Syrup 30 ml 07/23/20 14:17 Simple Syrup 15 Ml FEEDTUBE PRN PRN Hypoglycemia Sodium Bicarbonate 325 mg 07/23/20 14:17 Sodium Bicarbonate 325 Mg Tab FEEDTUBE PRN PRN For Clogged Feeding Tube Thiamine HCl 100 mg 07/19/20 10:00 08/04/20 13:31 Thiamine 100 Mg Tab PO 100 mg QDAY JODIE Administration Nutrition/Malnutrition Assess - Dietary Evaluation Nutrition/Malnutrition Findings: Nutrition Notes Start: 07/19/20 09:53 Freq: Status: Active Protocol: Document 08/03/20 12:31 LP (Rec: 08/03/20 12:34 LP [id number]) Nutrition Notes Initial or Follow up Reassessment Current Diagnosis CKD(stage I-IV),Diabetes, Sepsis,Heart Failure, Respiratory Failure,Stroke Other Pertinent Diagnosis On HD,Acute toxic metabolic encephalopathy, Bradycardia, ( R) LE wound, Current Diet Nepro 1.8 at 50 ml/hr Labs/Tests Reviewed Pertinent Medications Reviewed Height 5 ft 9 in Weight 101.3 kg [place] Body Weight (kg) 72.72 BMI 33.0 Weight Status Obese Subjective/Other Information Pt tolerating TF at goal rate. Percent of energy/protein needs met: 100%/67% Burn Absent Trauma Absent Difficulty In Swallowing Skin Integrity/Comment Diabetic ulcers to BLE Current % PO Negligible Minimum of two criteria Yes Body Fat Depletion Mild depletion (non-severe) Muscle Mass Mild Depletion (non-severe) Fluid Accumulation Moderate to Severe (severe) #2 Nutrition Diagnosis Malnutrition Etiology Unknown As Evidenced by Signs and Symptoms Observed muscle and fat mass depletion, fluid accumulation #1 Nutrition Diagnosis Inadequate oral intake Diagnosis Progress(for reassessment Continues documentation) Is patient on ventilator? Yes Is Patient Ambulatory and/or Out of Bed No REE-([facility]-confined to bed) 2168.784 Kcal/Kg value to use for calculation 18 Approximate Energy Requirements Using 1823 kcal/Kg Calculation Used for Recommendations Kcal/kg Additional Notes Protein needs: >144g (>2.0 g/ kgIBW) Fluid needs 1000 - 1500 ml/day Nutrition Intervention Change Diet Order: TF Nutrition Support: Increase Nepro at 50 ml/h with a free water flush of 125 ml q4h. Kcal 2,160 Protein (gm) 97 Fluid (mL) 872 Add Supplement/Snack (indicate name/kcal Pawel BID /protein ) Provides kCal: 190 Provides Protein (gm) 5 Goal #1 TF tolerance Goal #2 Meet at estimated energy and protein needs as best as possible. Anticipated Discharge Needs: Unable to determine at this time Follow-Up By: 08/06/20 Additional Comments Follow for stable TF
[2020-08-05] MEDS: ASPIRIN 81 MG TAB CHEW PO SCH (09:40)
[2020-08-05] MEDS: THIAMINE 100 MG TAB PO SCH (09:40)
[2020-08-05] MEDS: FOLIC ACID 1 MG TAB PO SCH (09:40)
[2020-08-05] MEDS: levETIRAcetam 500 MG/5 ML ORAL LIQD PO SCH ×2 (09:40→21:23)
[2020-08-05] MEDS: FAMOTIDINE 20 MG TAB PO SCH (09:40)
--- NOTE | 2020-08-05 12:09 | Progress Note ---
Assessment and Plan 8 y/o male with acute respiratory failure secondary to worsening renal failure, volume overload and altered mental state 08/05/20: Will call daughter back tomorrow to assess where we are as far as goals of care. It does not appear that she visited this weekend. Will continue supportive measures. Overall prognosis is appears poor. 08/04/20: Long discussion with daughter over the phone. Explained overall poor prognosis. Per daughter, patient would not want to exist like this. She is going to come visit and at that time I will discuss with her about future plans (hospice, vs withdrawal of care and comfort measures). Continue all supportive therapy for now and await daughter visit and her speaking with family. 08/03/20: Reviewed repeat EEG. Getting MRI today. Will ask Neuro to see patient again after MRI. Given current state and now reading on EEG, will need to have family discussion once MRI is done. Likely will need trach and peg placement. Transfuse today during HD. 08/02/20: Will consider ordering repeat EEG today tomorrow. Neuro has not re- evaluated the patient since initial consult. Hold on transfusion today as bp is stable and HD is not until tomorrow. Overall prognosis is guarded to poor. May need to start looking into LTACH if not able to wean. Currently on minimal settings but mental state will not allow traditional extubation. 08/01/20: Will repeat EEG at request of neurology. No MRI requested. CT and EEG report not equivalent. Trial of narcan given but no improvement. Does have urine in the bladder but no jones and prior history of obstruction requiring urology to place jones. May need to consider asking them to re-evaluate. Prognosis remains guarded to poor. 07/31/20: Will obtain, EEG and neuro consult. They will likely ask for MRI so will speak with family about obtaining screening form info. Continue PSV trials. HD per renal. Guarded to poor prognosis. 07/30/20: Mental state continues to prevent conventional extubation. HD per renal. Need to repeat Head CT to check for other damage. 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 Very very guarded prognosis. If repeat head CT is negative, will need neuro eval and EEG 07/27/20: Mental state continues to prevent conventional extubation. Currently stable on minimal vent settings. HD per renal, does not appear he was dialyzed yesterday so may get it today. If not more awake by tomorrow, suggest repeat head CT. Continue all other supportive measures. 07/26/20: Drop PEEP down to 6. Once more awake PSV trials. HD per renal. Appears to be helping, maybe they will dialyze again today. Prognosis still remains guarded. 1. Needs HD 2. Wean FiO2 and PEEP as tolerated 3. Guarded prognosis CCT 31 minutes. Subjective Date of service: 08/05/20 Principal diagnosis: RACQUEL Interval history: ET tube changed out yesterday secondary to blown cuff. Remains unresponsive. No documentation of family visit. Objective Vital Signs - 12hr 08/05/20 08/05/20 08/05/20 01:00 02:00 03:00 Temperature Pulse Rate 85 83 90 Pulse Rate [ From Monitor] Respiratory 14 15 17 Rate Blood Pressure 109/59 118/62 133/72 O2 Sat by Pulse 100 100 100 Oximetry 08/05/20 08/05/20 08/05/20 03:15 03:42 04:00 Temperature 98.0 F Pulse Rate 82 80 Pulse Rate [ 83 From Monitor] Respiratory 16 Rate Blood Pressure 119/63 117/64 O2 Sat by Pulse 100 100 Oximetry 08/05/20 08/05/20 08/05/20 05:00 06:00 06:55 Temperature Pulse Rate 81 80 80 Pulse Rate [ From Monitor] Respiratory 16 16 Rate Blood Pressure 118/69 118/71 123/72 O2 Sat by Pulse 100 100 Oximetry 08/05/20 08/05/20 08/05/20 07:00 07:51 08:00 Temperature 97.3 F L Pulse Rate 85 79 80 Pulse Rate [ 79 From Monitor] Respiratory 17 18 Rate Blood Pressure 121/70 112/63 99/58 O2 Sat by Pulse 100 99 99 Oximetry 08/05/20 08/05/20 08/05/20 09:00 10:00 11:00 Temperature Pulse Rate 78 78 78 Pulse Rate [ From Monitor] Respiratory 21 19 19 Rate Blood Pressure 95/55 98/57 101/57 O2 Sat by Pulse 99 100 100 Oximetry 08/05/20 11:30 Temperature Pulse Rate 79 Pulse Rate [ From Monitor] Respiratory Rate Blood Pressure 103/58 O2 Sat by Pulse 100 Oximetry Constitutional: appears uncomfortable (cpap, orally intubated), other (on vent orally intubated) Eyes: non-icteric ENT: epistaxis Neck: other (large in circumference) Effort: mildly labored Ascultation: Bilateral: diminished breath sounds Neurologic: non-focal exam, unable to assess CBC and BMP: 08/05/20 05:35 08/05/20 05:35 ABG, PT/INR, D-dimer: ABG ABG pH 7.520 pH Units (7.350-7.450) H 07/27/20 05:20 POC ABG pCO2 32.7 mmHg (32.0-48.0) 07/25/20 03:57 ABG pCO2 33.5 mm Hg 07/27/20 05:20 POC ABG pO2 62.7 mmHg (83-108) L 07/25/20 03:57 ABG pO2 64.2 mm Hg (80.0-90.0) L 07/27/20 05:20 POC ABG HCO3 24.8 07/25/20 03:57 ABG O2 Saturation 95.8 % (95.0-99.0) 07/27/20 05:20 PT/INR, D-dimer PT 15.9 Sec. (12.2-14.9) H 07/22/20 10:30 INR 1.27 (0.87-1.13) H 07/22/20 10:30 D-Dimer 1036.46 ng/mlDDU (0-234) H 07/18/20 08:56 Abnormal lab findings: Abnormal Labs 07/18/20 07/18/20 07/18/20 08:56 08:56 08:56 WBC 3.5 L RBC 2.51 L Hgb 8.0 L Hct 24.5 L MCV 98 H RDW 18.3 H Plt Count 58 L Lymph % (Auto) [place] % (Auto) 11.1 H Lymph # (Auto) [place] # (Auto) Seg Neutrophils % Seg Neuts % (Manual) Lymphocytes % (Manual) Nucleated RBC % Seg Neutrophils # Man Lymphocytes # (Manual) PT INR 1.18 H APTT D-Dimer ABG pH POC ABG pCO2 POC ABG pO2 ABG pO2 ABG HCO3 ABG Base Excess ABG Hemoglobin ABG Oxyhemoglobin ABG Potassium ABG Chloride ABG Glucose Oxyhemoglobin Carboxyhemoglobin Sodium 146 H Potassium 5.2 H Chloride 117.3 H Carbon Dioxide 21 L BUN 52 H Creatinine 3.1 H Glucose 118 H POC Glucose Calcium 8.1 L Phosphorus AST ALT Alkaline Phosphatase Lactate Dehydrogenase CK-MB (CK-2) CK-MB (CK-2) Rel Index Troponin T 0.057 H C-Reactive Protein NT-Pro-B Natriuret Pep Albumin HDL Cholesterol 67 H TSH Arterial Blood Glucose Arterial Blood Ionized Calcium Hepatitis C Antibody Crossmatch 07/18/20 07/18/20 07/18/20 08:56 08:56 08:56 WBC RBC Hgb Hct MCV RDW Plt Count Lymph % (Auto) [place] % (Auto) Lymph # (Auto) [place] # (Auto) Seg Neutrophils % Seg Neuts % (Manual) Lymphocytes % (Manual) Nucleated RBC % Seg Neutrophils # Man Lymphocytes # (Manual) PT INR APTT D-Dimer 1036.46 H ABG pH POC ABG pCO2 POC ABG pO2 ABG pO2 ABG HCO3 ABG Base Excess ABG Hemoglobin ABG Oxyhemoglobin ABG Potassium ABG Chloride ABG Glucose Oxyhemoglobin Carboxyhemoglobin Sodium Potassium Chloride Carbon Dioxide BUN Creatinine Glucose POC Glucose Calcium Phosphorus AST ALT Alkaline Phosphatase Lactate Dehydrogenase CK-MB (CK-2) CK-MB (CK-2) Rel Index Troponin T C-Reactive Protein NT-Pro-B Natriuret Pep 4777 H Albumin HDL Cholesterol TSH 5.520 H Arterial Blood Glucose Arterial Blood Ionized Calcium Hepatitis C Antibody Crossmatch 07/18/20 07/18/20 07/18/20 10:36 18:56 19:00 WBC RBC Hgb Hct MCV RDW Plt Count Lymph % (Auto) [place] % (Auto) Lymph # (Auto) [place] # (Auto) Seg Neutrophils % Seg Neuts % (Manual) Lymphocytes % (Manual) Nucleated RBC % Seg Neutrophils # Man Lymphocytes # (Manual) PT INR APTT D-Dimer ABG pH POC ABG pCO2 POC ABG pO2 ABG pO2 ABG HCO3 ABG Base Excess ABG Hemoglobin ABG Oxyhemoglobin ABG Potassium ABG Chloride ABG Glucose Oxyhemoglobin Carboxyhemoglobin Sodium Potassium Chloride Carbon Dioxide BUN Creatinine Glucose 101 H POC Glucose 66 L 63 L Calcium Phosphorus AST ALT Alkaline Phosphatase Lactate Dehydrogenase 212 H CK-MB (CK-2) CK-MB (CK-2) Rel Index Troponin T C-Reactive Protein 2.10 H NT-Pro-B Natriuret Pep Albumin HDL Cholesterol TSH Arterial Blood Glucose Arterial Blood Ionized Calcium Hepatitis C Antibody Crossmatch 07/19/20 07/19/20 07/19/20 06:00 06:00 16:26 WBC 3.9 L RBC 2.34 L Hgb 7.5 L Hct 23.1 L MCV 99 H RDW 18.6 H Plt Count 52 L Lymph % (Auto) [place] % (Auto) 9.4 H Lymph # (Auto) 1.0 L [place] # (Auto) Seg Neutrophils % Seg Neuts % (Manual) Lymphocytes % (Manual) Nucleated RBC % Seg Neutrophils # Man Lymphocytes # (Manual) PT INR APTT D-Dimer ABG pH POC ABG pCO2 POC ABG pO2 ABG pO2 ABG HCO3 ABG Base Excess ABG Hemoglobin ABG Oxyhemoglobin ABG Potassium ABG Chloride ABG Glucose Oxyhemoglobin Carboxyhemoglobin Sodium Potassium 5.3 H Chloride 115.8 H Carbon Dioxide BUN 52 H Creatinine 3.4 H Glucose 114 H POC Glucose 123 H Calcium 7.7 L Phosphorus AST 77 H ALT < 5 L Alkaline Phosphatase 678 H Lactate Dehydrogenase CK-MB (CK-2) CK-MB (CK-2) Rel Index Troponin T C-Reactive Protein NT-Pro-B Natriuret Pep Albumin 2.2 L HDL Cholesterol TSH Arterial Blood Glucose Arterial Blood Ionized Calcium Hepatitis C Antibody Crossmatch 07/19/20 07/20/20 07/20/20 21:20 08:25 08:25 WBC 3.6 L RBC 2.54 L Hgb 8.0 L Hct 24.6 L MCV 97 H RDW 18.0 H Plt Count 47 L Lymph % (Auto) [place] % (Auto) 9.8 H Lymph # (Auto) 0.9 L [place] # (Auto) Seg Neutrophils % Seg Neuts % (Manual) Lymphocytes % (Manual) Nucleated RBC % Seg Neutrophils # Man Lymphocytes # (Manual) PT INR APTT D-Dimer ABG pH POC ABG pCO2 POC ABG pO2 ABG pO2 ABG HCO3 ABG Base Excess ABG Hemoglobin ABG Oxyhemoglobin ABG Potassium ABG Chloride ABG Glucose Oxyhemoglobin Carboxyhemoglobin Sodium Potassium 5.4 H Chloride 115.8 H Carbon Dioxide BUN 56 H Creatinine 3.8 H Glucose 110 H POC Glucose 142 H Calcium 7.9 L Phosphorus AST ALT Alkaline Phosphatase Lactate Dehydrogenase CK-MB (CK-2) CK-MB (CK-2) Rel Index Troponin T C-Reactive Protein NT-Pro-B Natriuret Pep Albumin HDL Cholesterol TSH Arterial Blood Glucose Arterial Blood Ionized Calcium Hepatitis C Antibody Crossmatch 07/20/20 07/20/20 07/20/20 11:27 16:34 21:27 WBC RBC Hgb Hct MCV RDW Plt Count Lymph % (Auto) [place] % (Auto) Lymph # (Auto) [place] # (Auto) Seg Neutrophils % Seg Neuts % (Manual) Lymphocytes % (Manual) Nucleated RBC % Seg Neutrophils # Man Lymphocytes # (Manual) PT INR APTT D-Dimer ABG pH POC ABG pCO2 POC ABG pO2 ABG pO2 ABG HCO3 ABG Base Excess ABG Hemoglobin ABG Oxyhemoglobin ABG Potassium ABG Chloride ABG Glucose Oxyhemoglobin Carboxyhemoglobin Sodium Potassium Chloride Carbon Dioxide BUN Creatinine Glucose POC Glucose 136 H 186 H 175 H Calcium Phosphorus AST ALT Alkaline Phosphatase Lactate Dehydrogenase CK-MB (CK-2) CK-MB (CK-2) Rel Index Troponin T C-Reactive Protein NT-Pro-B Natriuret Pep Albumin HDL Cholesterol TSH Arterial Blood Glucose Arterial Blood Ionized Calcium Hepatitis C Antibody Crossmatch 07/21/20 07/22/20 07/22/20 10:31 07:25 10:30 WBC 3.8 L RBC 2.53 L Hgb 7.9 L Hct 24.7 L MCV 98 H RDW 18.7 H Plt Count 35 L Lymph % (Auto) [place] % (Auto) Lymph # (Auto) [place] # (Auto) Seg Neutrophils % Seg Neuts % (Manual) 92.0 H Lymphocytes % (Manual) 6.0 L Nucleated RBC % 13.0 H Seg Neutrophils # Man Lymphocytes # (Manual) 0.2 L PT INR APTT D-Dimer ABG pH POC ABG pCO2 POC ABG pO2 ABG pO2 ABG HCO3 ABG Base Excess ABG Hemoglobin ABG Oxyhemoglobin ABG Potassium ABG Chloride ABG Glucose Oxyhemoglobin Carboxyhemoglobin Sodium Potassium 5.3 H 5.6 H Chloride 115.0 H 115.1 H Carbon Dioxide 18 L BUN 59 H 61 H Creatinine 4.3 H 4.6 H Glucose 109 H POC Glucose Calcium 7.6 L 7.6 L Phosphorus AST ALT Alkaline Phosphatase Lactate Dehydrogenase CK-MB (CK-2) CK-MB (CK-2) Rel Index Troponin T C-Reactive Protein NT-Pro-B Natriuret Pep Albumin HDL Cholesterol TSH Arterial Blood Glucose Arterial Blood Ionized Calcium Hepatitis C Antibody Crossmatch 07/22/20 07/22/20 07/22/20 10:30 10:30 10:30 WBC RBC Hgb Hct MCV RDW Plt Count Lymph % (Auto) [place] % (Auto) Lymph # (Auto) [place] # (Auto) Seg Neutrophils % Seg Neuts % (Manual) Lymphocytes % (Manual) Nucleated RBC % Seg Neutrophils # Man Lymphocytes # (Manual) PT 15.9 H INR 1.27 H APTT 38.3 H D-Dimer ABG pH POC ABG pCO2 POC ABG pO2 ABG pO2 ABG HCO3 ABG Base Excess ABG Hemoglobin ABG Oxyhemoglobin ABG Potassium ABG Chloride ABG Glucose Oxyhemoglobin Carboxyhemoglobin Sodium 146 H Potassium 5.4 H Chloride 116.4 H Carbon Dioxide BUN 61 H Creatinine 4.6 H Glucose 115 H POC Glucose Calcium 7.5 L Phosphorus 5.80 H AST 66 H ALT < 5 L Alkaline Phosphatase 604 H Lactate Dehydrogenase CK-MB (CK-2) 10.9 H CK-MB (CK-2) Rel Index 16.2 H Troponin T 0.047 H C-Reactive Protein NT-Pro-B Natriuret Pep Albumin 2.1 L HDL Cholesterol TSH Arterial Blood Glucose Arterial Blood Ionized Calcium Hepatitis C Antibody Crossmatch 07/22/20 07/23/20 07/23/20 11:10 03:38 03:47 WBC RBC Hgb Hct MCV RDW Plt Count Lymph % (Auto) [place] % (Auto) Lymph # (Auto) [place] # (Auto) Seg Neutrophils % Seg Neuts % (Manual) Lymphocytes % (Manual) Nucleated RBC % Seg Neutrophils # Man Lymphocytes # (Manual) PT INR APTT D-Dimer ABG pH 7.203 L POC ABG pCO2 48.7 H 29.7 L POC ABG pO2 80.6 L 267.3 H ABG pO2 ABG HCO3 ABG Base Excess ABG Hemoglobin 8.6 L 8.2 L ABG Oxyhemoglobin 91.1 L 98.2 H ABG Potassium 5.4 H 5.4 H ABG Chloride 122.0 H 122.0 H ABG Glucose 105 H 101 H Oxyhemoglobin Carboxyhemoglobin 2.0 H Sodium Potassium Chloride Carbon Dioxide BUN Creatinine Glucose POC Glucose 65 L Calcium Phosphorus AST ALT Alkaline Phosphatase Lactate Dehydrogenase CK-MB (CK-2) CK-MB (CK-2) Rel Index Troponin T C-Reactive Protein NT-Pro-B Natriuret Pep Albumin HDL Cholesterol TSH Arterial Blood Glucose 105 H 101 H Arterial Blood Ionized Calcium 4.5 L 4.4 L Hepatitis C Antibody Crossmatch 07/23/20 07/23/20 07/23/20 06:05 06:05 06:27 WBC RBC 2.36 L Hgb 7.5 L Hct 22.7 L MCV 96 H RDW 18.9 H Plt Count 42 L Lymph % (Auto) [place] % (Auto) Lymph # (Auto) [place] # (Auto) Seg Neutrophils % Seg Neuts % (Manual) Lymphocytes % (Manual) Nucleated RBC % Seg Neutrophils # Man Lymphocytes # (Manual) PT INR APTT D-Dimer ABG pH POC ABG pCO2 POC ABG pO2 ABG pO2 ABG HCO3 ABG Base Excess ABG Hemoglobin ABG Oxyhemoglobin ABG Potassium ABG Chloride ABG Glucose Oxyhemoglobin Carboxyhemoglobin Sodium Potassium 5.6 H Chloride 114.1 H Carbon Dioxide 17 L BUN 62 H Creatinine 5.1 H Glucose 215 H POC Glucose 114 H Calcium 7.3 L Phosphorus AST ALT Alkaline Phosphatase Lactate Dehydrogenase CK-MB (CK-2) CK-MB (CK-2) Rel Index Troponin T C-Reactive Protein NT-Pro-B Natriuret Pep Albumin HDL Cholesterol TSH Arterial Blood Glucose Arterial Blood Ionized Calcium Hepatitis C Antibody Crossmatch 07/23/20 07/23/20 07/24/20 11:36 19:20 04:00 WBC RBC Hgb Hct MCV RDW Plt Count Lymph % (Auto) [place] % (Auto) Lymph # (Auto) [place] # (Auto) Seg Neutrophils % Seg Neuts % (Manual) Lymphocytes % (Manual) Nucleated RBC % Seg Neutrophils # Man Lymphocytes # (Manual) PT INR APTT D-Dimer ABG pH POC ABG pCO2 POC ABG pO2 ABG pO2 ABG HCO3 ABG Base Excess ABG Hemoglobin ABG Oxyhemoglobin ABG Potassium ABG Chloride ABG Glucose Oxyhemoglobin Carboxyhemoglobin Sodium Potassium Chloride 110.8 H Carbon Dioxide BUN 47 H Creatinine 4.4 H Glucose POC Glucose 66 L Calcium 7.3 L Phosphorus AST ALT Alkaline Phosphatase Lactate Dehydrogenase CK-MB (CK-2) CK-MB (CK-2) Rel Index Troponin T C-Reactive Protein NT-Pro-B Natriuret Pep Albumin HDL Cholesterol TSH Arterial Blood Glucose Arterial Blood Ionized Calcium Hepatitis C Antibody Reactive A Crossmatch 07/24/20 07/24/20 07/24/20 04:25 11:37 Unknown WBC RBC 2.36 L Hgb 7.5 L Hct 22.5 L MCV 95 H RDW 18.4 H Plt Count 38 L Lymph % (Auto) [place] % (Auto) Lymph # (Auto) [place] # (Auto) Seg Neutrophils % Seg Neuts % (Manual) Lymphocytes % (Manual) Nucleated RBC % Seg Neutrophils # Man Lymphocytes # (Manual) PT INR APTT D-Dimer ABG pH POC ABG pCO2 POC ABG pO2 64.8 L ABG pO2 ABG HCO3 ABG Base Excess ABG Hemoglobin 7.9 L ABG Oxyhemoglobin ABG Potassium ABG Chloride 114.0 H ABG Glucose Oxyhemoglobin Carboxyhemoglobin Sodium Potassium Chloride Carbon Dioxide BUN Creatinine Glucose POC Glucose 109 H Calcium Phosphorus AST ALT Alkaline Phosphatase Lactate Dehydrogenase CK-MB (CK-2) CK-MB (CK-2) Rel Index Troponin T C-Reactive Protein NT-Pro-B Natriuret Pep Albumin HDL Cholesterol TSH Arterial Blood Glucose Arterial Blood Ionized Calcium 4.2 L Hepatitis C Antibody Crossmatch 07/25/20 07/25/20 07/25/20 00:12 03:57 04:00 WBC RBC Hgb Hct MCV RDW Plt Count Lymph % (Auto) [place] % (Auto) Lymph # (Auto) [place] # (Auto) Seg Neutrophils % Seg Neuts % (Manual) Lymphocytes % (Manual) Nucleated RBC % Seg Neutrophils # Man Lymphocytes # (Manual) PT INR APTT D-Dimer ABG pH 7.497 H POC ABG pCO2 POC ABG pO2 62.7 L ABG pO2 ABG HCO3 ABG Base Excess ABG Hemoglobin 8.5 L ABG Oxyhemoglobin 90.1 L ABG Potassium ABG Chloride 110.0 H ABG Glucose 157 H Oxyhemoglobin Carboxyhemoglobin Sodium Potassium Chloride Carbon Dioxide BUN 38 H Creatinine 4.1 H Glucose 160 H POC Glucose 140 H Calcium 7.9 L Phosphorus AST ALT Alkaline Phosphatase Lactate Dehydrogenase CK-MB (CK-2) CK-MB (CK-2) Rel Index Troponin T C-Reactive Protein NT-Pro-B Natriuret Pep Albumin HDL Cholesterol TSH Arterial Blood Glucose 157 H Arterial Blood Ionized Calcium 4.3 L Hepatitis C Antibody Crossmatch 07/25/20 07/25/20 07/25/20 04:00 06:24 12:11 WBC RBC 2.48 L Hgb 7.7 L Hct 23.2 L MCV RDW 18.4 H Plt Count 44 L Lymph % (Auto) [place] % (Auto) 8.5 H Lymph # (Auto) [place] # (Auto) Seg Neutrophils % 76.7 H Seg Neuts % (Manual) Lymphocytes % (Manual) Nucleated RBC % Seg Neutrophils # Man Lymphocytes # (Manual) PT INR APTT D-Dimer ABG pH POC ABG pCO2 POC ABG pO2 ABG pO2 ABG HCO3 ABG Base Excess ABG Hemoglobin ABG Oxyhemoglobin ABG Potassium ABG Chloride ABG Glucose Oxyhemoglobin Carboxyhemoglobin Sodium Potassium Chloride Carbon Dioxide BUN Creatinine Glucose POC Glucose 155 H 205 H Calcium Phosphorus AST ALT Alkaline Phosphatase Lactate Dehydrogenase CK-MB (CK-2) CK-MB (CK-2) Rel Index Troponin T C-Reactive Protein NT-Pro-B Natriuret Pep Albumin HDL Cholesterol TSH Arterial Blood Glucose Arterial Blood Ionized Calcium Hepatitis C Antibody Crossmatch 07/25/20 07/26/20 07/26/20 17:41 00:18 03:54 WBC RBC Hgb Hct MCV RDW Plt Count Lymph % (Auto) [place] % (Auto) Lymph # (Auto) [place] # (Auto) Seg Neutrophils % Seg Neuts % (Manual) Lymphocytes % (Manual) Nucleated RBC % Seg Neutrophils # Man Lymphocytes # (Manual) PT INR APTT D-Dimer ABG pH 7.512 H POC ABG pCO2 POC ABG pO2 ABG pO2 121.2 H ABG HCO3 27.1 H ABG Base Excess 3.6 H ABG Hemoglobin < 5.1 L ABG Oxyhemoglobin ABG Potassium ABG Chloride ABG Glucose Oxyhemoglobin Carboxyhemoglobin Sodium Potassium Chloride Carbon Dioxide BUN Creatinine Glucose POC Glucose 227 H 198 H Calcium Phosphorus AST ALT Alkaline Phosphatase Lactate Dehydrogenase CK-MB (CK-2) CK-MB (CK-2) Rel Index Troponin T C-Reactive Protein NT-Pro-B Natriuret Pep Albumin HDL Cholesterol TSH Arterial Blood Glucose Arterial Blood Ionized Calcium Hepatitis C Antibody Crossmatch 07/26/20 07/26/20 07/26/20 06:31 07:00 12:09 WBC RBC 2.33 L Hgb 7.4 L Hct 21.6 L MCV RDW 18.0 H Plt Count 50 L Lymph % (Auto) 13.0 L [place] % (Auto) Lymph # (Auto) [place] # (Auto) Seg Neutrophils % 79.8 H Seg Neuts % (Manual) Lymphocytes % (Manual) Nucleated RBC % Seg Neutrophils # Man Lymphocytes # (Manual) PT INR APTT D-Dimer ABG pH POC ABG pCO2 POC ABG pO2 ABG pO2 ABG HCO3 ABG Base Excess ABG Hemoglobin ABG Oxyhemoglobin ABG Potassium ABG Chloride ABG Glucose Oxyhemoglobin Carboxyhemoglobin Sodium Potassium Chloride Carbon Dioxide BUN Creatinine Glucose POC Glucose 223 H 250 H Calcium Phosphorus AST ALT Alkaline Phosphatase Lactate Dehydrogenase CK-MB (CK-2) CK-MB (CK-2) Rel Index Troponin T C-Reactive Protein NT-Pro-B Natriuret Pep Albumin HDL Cholesterol TSH Arterial Blood Glucose Arterial Blood Ionized Calcium Hepatitis C Antibody Crossmatch 07/26/20 07/26/20 07/27/20 17:40 23:26 05:20 WBC RBC Hgb Hct MCV RDW Plt Count Lymph % (Auto) [place] % (Auto) Lymph # (Auto) [place] # (Auto) Seg Neutrophils % Seg Neuts % (Manual) Lymphocytes % (Manual) Nucleated RBC % Seg Neutrophils # Man Lymphocytes # (Manual) PT INR APTT D-Dimer ABG pH 7.520 H POC ABG pCO2 POC ABG pO2 ABG pO2 64.2 L ABG HCO3 26.8 H ABG Base Excess 3.7 H ABG Hemoglobin 7.2 L ABG Oxyhemoglobin ABG Potassium ABG Chloride ABG Glucose Oxyhemoglobin 93.2 L Carboxyhemoglobin Sodium Potassium Chloride Carbon Dioxide BUN Creatinine Glucose POC Glucose 226 H 176 H Calcium Phosphorus AST ALT Alkaline Phosphatase Lactate Dehydrogenase CK-MB (CK-2) CK-MB (CK-2) Rel Index Troponin T C-Reactive Protein NT-Pro-B Natriuret Pep Albumin HDL Cholesterol TSH Arterial Blood Glucose Arterial Blood Ionized Calcium Hepatitis C Antibody Crossmatch 07/27/20 07/27/20 07/27/20 05:42 06:36 06:36 WBC RBC 2.23 L Hgb 7.0 L Hct 20.7 L MCV RDW 18.4 H Plt Count 56 L Lymph % (Auto) [place] % (Auto) Lymph # (Auto) [place] # (Auto) Seg Neutrophils % Seg Neuts % (Manual) 88.0 H Lymphocytes % (Manual) 11.0 L Nucleated RBC % 2.0 H Seg Neutrophils # Man 8.9 H Lymphocytes # (Manual) 1.1 L PT INR APTT D-Dimer ABG pH POC ABG pCO2 POC ABG pO2 ABG pO2 ABG HCO3 ABG Base Excess ABG Hemoglobin ABG Oxyhemoglobin ABG Potassium ABG Chloride ABG Glucose Oxyhemoglobin Carboxyhemoglobin Sodium Potassium Chloride Carbon Dioxide BUN 43 H Creatinine 4.4 H Glucose 162 H POC Glucose 142 H Calcium 8.2 L Phosphorus AST ALT Alkaline Phosphatase Lactate Dehydrogenase CK-MB (CK-2) CK-MB (CK-2) Rel Index Troponin T C-Reactive Protein NT-Pro-B Natriuret Pep Albumin HDL Cholesterol TSH Arterial Blood Glucose Arterial Blood Ionized Calcium Hepatitis C Antibody Crossmatch 07/27/20 07/27/20 07/27/20 11:42 17:37 23:15 WBC RBC Hgb Hct MCV RDW Plt Count Lymph % (Auto) [place] % (Auto) Lymph # (Auto) [place] # (Auto) Seg Neutrophils % Seg Neuts % (Manual) Lymphocytes % (Manual) Nucleated RBC % Seg Neutrophils # Man Lymphocytes # (Manual) PT INR APTT D-Dimer ABG pH POC ABG pCO2 POC ABG pO2 ABG pO2 ABG HCO3 ABG Base Excess ABG Hemoglobin ABG Oxyhemoglobin ABG Potassium ABG Chloride ABG Glucose Oxyhemoglobin Carboxyhemoglobin Sodium Potassium Chloride Carbon Dioxide BUN Creatinine Glucose POC Glucose 134 H 169 H 173 H Calcium Phosphorus AST ALT Alkaline Phosphatase Lactate Dehydrogenase CK-MB (CK-2) CK-MB (CK-2) Rel Index Troponin T C-Reactive Protein NT-Pro-B Natriuret Pep Albumin HDL Cholesterol TSH Arterial Blood Glucose Arterial Blood Ionized Calcium Hepatitis C Antibody Crossmatch 07/28/20 07/28/20 07/28/20 04:00 05:14 10:15 WBC RBC 2.13 L Hgb 6.8 L Hct 19.9 L* MCV RDW 18.4 H Plt Count 55 L Lymph % (Auto) [place] % (Auto) 9.1 H Lymph # (Auto) [place] # (Auto) 0.9 H Seg Neutrophils % 74.5 H Seg Neuts % (Manual) Lymphocytes % (Manual) Nucleated RBC % Seg Neutrophils # Man Lymphocytes # (Manual) PT INR APTT D-Dimer ABG pH POC ABG pCO2 POC ABG pO2 ABG pO2 ABG HCO3 ABG Base Excess ABG Hemoglobin ABG Oxyhemoglobin ABG Potassium ABG Chloride ABG Glucose Oxyhemoglobin Carboxyhemoglobin Sodium Potassium Chloride Carbon Dioxide BUN Creatinine Glucose POC Glucose 169 H Calcium Phosphorus AST ALT Alkaline Phosphatase Lactate Dehydrogenase CK-MB (CK-2) CK-MB (CK-2) Rel Index Troponin T C-Reactive Protein NT-Pro-B Natriuret Pep Albumin HDL Cholesterol TSH Arterial Blood Glucose Arterial Blood Ionized Calcium Hepatitis C Antibody Crossmatch See Detail 07/28/20 07/28/20 07/28/20 11:32 17:28 23:58 WBC RBC Hgb Hct MCV RDW Plt Count Lymph % (Auto) [place] % (Auto) Lymph # (Auto) [place] # (Auto) Seg Neutrophils % Seg Neuts % (Manual) Lymphocytes % (Manual) Nucleated RBC % Seg Neutrophils # Man Lymphocytes # (Manual) PT INR APTT D-Dimer ABG pH POC ABG pCO2 POC ABG pO2 ABG pO2 ABG HCO3 ABG Base Excess ABG Hemoglobin ABG Oxyhemoglobin ABG Potassium ABG Chloride ABG Glucose Oxyhemoglobin Carboxyhemoglobin Sodium Potassium Chloride Carbon Dioxide BUN Creatinine Glucose POC Glucose 185 H 208 H 227 H Calcium Phosphorus AST ALT Alkaline Phosphatase Lactate Dehydrogenase CK-MB (CK-2) CK-MB (CK-2) Rel Index Troponin T C-Reactive Protein NT-Pro-B Natriuret Pep Albumin HDL Cholesterol TSH Arterial Blood Glucose Arterial Blood Ionized Calcium Hepatitis C Antibody Crossmatch 07/29/20 07/29/20 07/29/20 05:37 12:04 17:11 WBC RBC Hgb Hct MCV RDW Plt Count Lymph % (Auto) [place] % (Auto) Lymph # (Auto) [place] # (Auto) Seg Neutrophils % Seg Neuts % (Manual) Lymphocytes % (Manual) Nucleated RBC % Seg Neutrophils # Man Lymphocytes # (Manual) PT INR APTT D-Dimer ABG pH POC ABG pCO2 POC ABG pO2 ABG pO2 ABG HCO3 ABG Base Excess ABG Hemoglobin ABG Oxyhemoglobin ABG Potassium ABG Chloride ABG Glucose Oxyhemoglobin Carboxyhemoglobin Sodium Potassium Chloride Carbon Dioxide BUN Creatinine Glucose POC Glucose 225 H 201 H 185 H Calcium Phosphorus AST ALT Alkaline Phosphatase Lactate Dehydrogenase CK-MB (CK-2) CK-MB (CK-2) Rel Index Troponin T C-Reactive Protein NT-Pro-B Natriuret Pep Albumin HDL Cholesterol TSH Arterial Blood Glucose Arterial Blood Ionized Calcium Hepatitis C Antibody Crossmatch 07/29/20 07/30/20 07/30/20 23:48 05:38 09:05 WBC RBC 2.49 L Hgb 7.7 L Hct 23.1 L MCV RDW 20.5 H Plt Count 54 L Lymph % (Auto) [place] % (Auto) Lymph # (Auto) [place] # (Auto) Seg Neutrophils % Seg Neuts % (Manual) Lymphocytes % (Manual) Nucleated RBC % Seg Neutrophils # Man Lymphocytes # (Manual) PT INR APTT D-Dimer ABG pH POC ABG pCO2 POC ABG pO2 ABG pO2 ABG HCO3 ABG Base Excess ABG Hemoglobin ABG Oxyhemoglobin ABG Potassium ABG Chloride ABG Glucose Oxyhemoglobin Carboxyhemoglobin Sodium Potassium Chloride Carbon Dioxide BUN Creatinine Glucose POC Glucose 209 H 205 H Calcium Phosphorus AST ALT Alkaline Phosphatase Lactate Dehydrogenase CK-MB (CK-2) CK-MB (CK-2) Rel Index Troponin T C-Reactive Protein NT-Pro-B Natriuret Pep Albumin HDL Cholesterol TSH Arterial Blood Glucose Arterial Blood Ionized Calcium Hepatitis C Antibody Crossmatch 07/30/20 07/30/20 07/30/20 09:05 11:42 17:46 WBC RBC Hgb Hct MCV RDW Plt Count Lymph % (Auto) [place] % (Auto) Lymph # (Auto) [place] # (Auto) Seg Neutrophils % Seg Neuts % (Manual) Lymphocytes % (Manual) Nucleated RBC % Seg Neutrophils # Man Lymphocytes # (Manual) PT INR APTT D-Dimer ABG pH POC ABG pCO2 POC ABG pO2 ABG pO2 ABG HCO3 ABG Base Excess ABG Hemoglobin ABG Oxyhemoglobin ABG Potassium ABG Chloride ABG Glucose Oxyhemoglobin Carboxyhemoglobin Sodium 135 L Potassium Chloride Carbon Dioxide BUN 52 H Creatinine 4.1 H Glucose 236 H POC Glucose 224 H 195 H Calcium Phosphorus AST ALT Alkaline Phosphatase Lactate Dehydrogenase CK-MB (CK-2) CK-MB (CK-2) Rel Index Troponin T C-Reactive Protein NT-Pro-B Natriuret Pep Albumin HDL Cholesterol TSH Arterial Blood Glucose Arterial Blood Ionized Calcium Hepatitis C Antibody Crossmatch 07/30/20 07/30/20 07/31/20 21:09 23:45 05:10 WBC RBC 2.46 L Hgb 7.6 L Hct 22.6 L MCV RDW 19.4 H Plt Count 77 L Lymph % (Auto) [place] % (Auto) Lymph # (Auto) [place] # (Auto) Seg Neutrophils % Seg Neuts % (Manual) Lymphocytes % (Manual) Nucleated RBC % Seg Neutrophils # Man Lymphocytes # (Manual) PT INR APTT D-Dimer ABG pH POC ABG pCO2 POC ABG pO2 ABG pO2 ABG HCO3 ABG Base Excess ABG Hemoglobin ABG Oxyhemoglobin ABG Potassium ABG Chloride ABG Glucose Oxyhemoglobin Carboxyhemoglobin Sodium Potassium Chloride Carbon Dioxide BUN Creatinine Glucose POC Glucose 153 H 185 H Calcium Phosphorus AST ALT Alkaline Phosphatase Lactate Dehydrogenase CK-MB (CK-2) CK-MB (CK-2) Rel Index Troponin T C-Reactive Protein NT-Pro-B Natriuret Pep Albumin HDL Cholesterol TSH Arterial Blood Glucose Arterial Blood Ionized Calcium Hepatitis C Antibody Crossmatch 07/31/20 07/31/20 07/31/20 05:17 11:48 17:20 WBC RBC Hgb Hct MCV RDW Plt Count Lymph % (Auto) [place] % (Auto) Lymph # (Auto) [place] # (Auto) Seg Neutrophils % Seg Neuts % (Manual) Lymphocytes % (Manual) Nucleated RBC % Seg Neutrophils # Man Lymphocytes # (Manual) PT INR APTT D-Dimer ABG pH POC ABG pCO2 POC ABG pO2 ABG pO2 ABG HCO3 ABG Base Excess ABG Hemoglobin ABG Oxyhemoglobin ABG Potassium ABG Chloride ABG Glucose Oxyhemoglobin Carboxyhemoglobin Sodium Potassium Chloride Carbon Dioxide BUN Creatinine Glucose POC Glucose 163 H 144 H 133 H Calcium Phosphorus AST ALT Alkaline Phosphatase Lactate Dehydrogenase CK-MB (CK-2) CK-MB (CK-2) Rel Index Troponin T C-Reactive Protein NT-Pro-B Natriuret Pep Albumin HDL Cholesterol TSH Arterial Blood Glucose Arterial Blood Ionized Calcium Hepatitis C Antibody Crossmatch 07/31/20 08/01/20 08/01/20 23:04 05:22 05:22 WBC RBC 2.26 L Hgb 7.0 L Hct 21.0 L MCV RDW 19.6 H Plt Count 85 L Lymph % (Auto) [place] % (Auto) Lymph # (Auto) [place] # (Auto) Seg Neutrophils % Seg Neuts % (Manual) Lymphocytes % (Manual) Nucleated RBC % Seg Neutrophils # Man Lymphocytes # (Manual) PT INR APTT D-Dimer ABG pH POC ABG pCO2 POC ABG pO2 ABG pO2 ABG HCO3 ABG Base Excess ABG Hemoglobin ABG Oxyhemoglobin ABG Potassium ABG Chloride ABG Glucose Oxyhemoglobin Carboxyhemoglobin Sodium 133 L Potassium Chloride Carbon Dioxide BUN 57 H Creatinine 4.4 H Glucose 166 H POC Glucose 140 H Calcium 7.8 L Phosphorus 5.10 H AST ALT Alkaline Phosphatase Lactate Dehydrogenase CK-MB (CK-2) CK-MB (CK-2) Rel Index Troponin T C-Reactive Protein NT-Pro-B Natriuret Pep Albumin HDL Cholesterol TSH Arterial Blood Glucose Arterial Blood Ionized Calcium Hepatitis C Antibody Crossmatch 08/01/20 08/01/20 08/01/20 05:49 11:18 17:33 WBC RBC Hgb Hct MCV RDW Plt Count Lymph % (Auto) [place] % (Auto) Lymph # (Auto) [place] # (Auto) Seg Neutrophils % Seg Neuts % (Manual) Lymphocytes % (Manual) Nucleated RBC % Seg Neutrophils # Man Lymphocytes # (Manual) PT INR APTT D-Dimer ABG pH POC ABG pCO2 POC ABG pO2 ABG pO2 ABG HCO3 ABG Base Excess ABG Hemoglobin ABG Oxyhemoglobin ABG Potassium ABG Chloride ABG Glucose Oxyhemoglobin Carboxyhemoglobin Sodium Potassium Chloride Carbon Dioxide BUN Creatinine Glucose POC Glucose 154 H 128 H 133 H Calcium Phosphorus AST ALT Alkaline Phosphatase Lactate Dehydrogenase CK-MB (CK-2) CK-MB (CK-2) Rel Index Troponin T C-Reactive Protein NT-Pro-B Natriuret Pep Albumin HDL Cholesterol TSH Arterial Blood Glucose Arterial Blood Ionized Calcium Hepatitis C Antibody Crossmatch 08/01/20 08/02/20 08/02/20 21:32 05:25 05:29 WBC RBC 2.14 L Hgb 6.7 L Hct 20.0 L MCV RDW 19.4 H Plt Count 104 L Lymph % (Auto) [place] % (Auto) Lymph # (Auto) [place] # (Auto) Seg Neutrophils % Seg Neuts % (Manual) Lymphocytes % (Manual) Nucleated RBC % Seg Neutrophils # Man Lymphocytes # (Manual) PT INR APTT D-Dimer ABG pH POC ABG pCO2 POC ABG pO2 ABG pO2 ABG HCO3 ABG Base Excess ABG Hemoglobin ABG Oxyhemoglobin ABG Potassium ABG Chloride ABG Glucose Oxyhemoglobin Carboxyhemoglobin Sodium Potassium Chloride Carbon Dioxide BUN Creatinine Glucose POC Glucose 139 H 145 H Calcium Phosphorus AST ALT Alkaline Phosphatase Lactate Dehydrogenase CK-MB (CK-2) CK-MB (CK-2) Rel Index Troponin T C-Reactive Protein NT-Pro-B Natriuret Pep Albumin HDL Cholesterol TSH Arterial Blood Glucose Arterial Blood Ionized Calcium Hepatitis C Antibody Crossmatch 08/02/20 08/03/20 08/03/20 18:09 04:00 04:00 WBC 11.6 H RBC 2.20 L Hgb 6.7 L Hct 20.4 L MCV RDW 18.8 H Plt Count 127 L Lymph % (Auto) [place] % (Auto) Lymph # (Auto) [place] # (Auto) Seg Neutrophils % Seg Neuts % (Manual) Lymphocytes % (Manual) Nucleated RBC % Seg Neutrophils # Man Lymphocytes # (Manual) PT INR APTT D-Dimer ABG pH POC ABG pCO2 POC ABG pO2 ABG pO2 ABG HCO3 ABG Base Excess ABG Hemoglobin ABG Oxyhemoglobin ABG Potassium ABG Chloride ABG Glucose Oxyhemoglobin Carboxyhemoglobin Sodium Potassium Chloride Carbon Dioxide BUN Creatinine Glucose POC Glucose 141 H Calcium Phosphorus AST ALT Alkaline Phosphatase Lactate Dehydrogenase CK-MB (CK-2) CK-MB (CK-2) Rel Index Troponin T C-Reactive Protein NT-Pro-B Natriuret Pep Albumin HDL Cholesterol TSH Arterial Blood Glucose Arterial Blood Ionized Calcium Hepatitis C Antibody Crossmatch See Detail 08/03/20 08/03/20 08/03/20 04:00 05:33 09:30 WBC RBC Hgb 6.6 L Hct 19.6 L* MCV RDW Plt Count Lymph % (Auto) [place] % (Auto) Lymph # (Auto) [place] # (Auto) Seg Neutrophils % Seg Neuts % (Manual) Lymphocytes % (Manual) Nucleated RBC % Seg Neutrophils # Man Lymphocytes # (Manual) PT INR APTT D-Dimer ABG pH POC ABG pCO2 POC ABG pO2 ABG pO2 ABG HCO3 ABG Base Excess ABG Hemoglobin ABG Oxyhemoglobin ABG Potassium ABG Chloride ABG Glucose Oxyhemoglobin Carboxyhemoglobin Sodium Potassium Chloride Carbon Dioxide BUN 33 H Creatinine 2.7 H Glucose 101 H POC Glucose 117 H Calcium 8.0 L Phosphorus AST ALT Alkaline Phosphatase Lactate Dehydrogenase CK-MB (CK-2) CK-MB (CK-2) Rel Index Troponin T C-Reactive Protein NT-Pro-B Natriuret Pep Albumin HDL Cholesterol TSH Arterial Blood Glucose Arterial Blood Ionized Calcium Hepatitis C Antibody Crossmatch 08/03/20 08/03/20 08/03/20 13:07 17:10 21:18 WBC RBC Hgb Hct MCV RDW Plt Count Lymph % (Auto) [place] % (Auto) Lymph # (Auto) [place] # (Auto) Seg Neutrophils % Seg Neuts % (Manual) Lymphocytes % (Manual) Nucleated RBC % Seg Neutrophils # Man Lymphocytes # (Manual) PT INR APTT D-Dimer ABG pH POC ABG pCO2 POC ABG pO2 ABG pO2 ABG HCO3 ABG Base Excess ABG Hemoglobin ABG Oxyhemoglobin ABG Potassium ABG Chloride ABG Glucose Oxyhemoglobin Carboxyhemoglobin Sodium Potassium Chloride Carbon Dioxide BUN Creatinine Glucose POC Glucose 121 H 139 H 134 H Calcium Phosphorus AST ALT Alkaline Phosphatase Lactate Dehydrogenase CK-MB (CK-2) CK-MB (CK-2) Rel Index Troponin T C-Reactive Protein NT-Pro-B Natriuret Pep Albumin HDL Cholesterol TSH Arterial Blood Glucose Arterial Blood Ionized Calcium Hepatitis C Antibody Crossmatch 08/03/20 08/04/20 08/04/20 23:31 05:21 05:24 WBC 12.8 H RBC 2.59 L Hgb 8.0 L Hct 24.1 L MCV RDW 17.4 H Plt Count Lymph % (Auto) [place] % (Auto) Lymph # (Auto) [place] # (Auto) Seg Neutrophils % Seg Neuts % (Manual) Lymphocytes % (Manual) Nucleated RBC % Seg Neutrophils # Man Lymphocytes # (Manual) PT INR APTT D-Dimer ABG pH POC ABG pCO2 POC ABG pO2 ABG pO2 ABG HCO3 ABG Base Excess ABG Hemoglobin ABG Oxyhemoglobin ABG Potassium ABG Chloride ABG Glucose Oxyhemoglobin Carboxyhemoglobin Sodium Potassium Chloride Carbon Dioxide BUN Creatinine Glucose POC Glucose 124 H 128 H Calcium Phosphorus AST ALT Alkaline Phosphatase Lactate Dehydrogenase CK-MB (CK-2) CK-MB (CK-2) Rel Index Troponin T C-Reactive Protein NT-Pro-B Natriuret Pep Albumin HDL Cholesterol TSH Arterial Blood Glucose Arterial Blood Ionized Calcium Hepatitis C Antibody Crossmatch 08/04/20 08/04/20 08/05/20 12:31 23:22 05:35 WBC RBC 2.27 L Hgb 7.1 L Hct 21.3 L MCV RDW 17.1 H Plt Count Lymph % (Auto) [place] % (Auto) Lymph # (Auto) [place] # (Auto) Seg Neutrophils % 76.3 H Seg Neuts % (Manual) Lymphocytes % (Manual) Nucleated RBC % Seg Neutrophils # Man Lymphocytes # (Manual) PT INR APTT D-Dimer ABG pH POC ABG pCO2 POC ABG pO2 ABG pO2 ABG HCO3 ABG Base Excess ABG Hemoglobin ABG Oxyhemoglobin ABG Potassium ABG Chloride ABG Glucose Oxyhemoglobin Carboxyhemoglobin Sodium Potassium Chloride Carbon Dioxide BUN Creatinine Glucose POC Glucose 196 H 162 H Calcium Phosphorus AST ALT Alkaline Phosphatase Lactate Dehydrogenase CK-MB (CK-2) CK-MB (CK-2) Rel Index Troponin T C-Reactive Protein NT-Pro-B Natriuret Pep Albumin HDL Cholesterol TSH Arterial Blood Glucose Arterial Blood Ionized Calcium Hepatitis C Antibody Crossmatch 08/05/20 08/05/20 05:35 06:06 WBC RBC Hgb Hct MCV RDW Plt Count Lymph % (Auto) [place] % (Auto) Lymph # (Auto) [place] # (Auto) Seg Neutrophils % Seg Neuts % (Manual) Lymphocytes % (Manual) Nucleated RBC % Seg Neutrophils # Man Lymphocytes # (Manual) PT INR APTT D-Dimer ABG pH POC ABG pCO2 POC ABG pO2 ABG pO2 ABG HCO3 ABG Base Excess ABG Hemoglobin ABG Oxyhemoglobin ABG Potassium ABG Chloride ABG Glucose Oxyhemoglobin Carboxyhemoglobin Sodium Potassium Chloride Carbon Dioxide 31 H BUN 41 H Creatinine 3.2 H Glucose 178 H POC Glucose 166 H Calcium 7.9 L Phosphorus AST ALT Alkaline Phosphatase Lactate Dehydrogenase CK-MB (CK-2) CK-MB (CK-2) Rel Index Troponin T C-Reactive Protein NT-Pro-B Natriuret Pep Albumin HDL Cholesterol TSH Arterial Blood Glucose Arterial Blood Ionized Calcium Hepatitis C Antibody Crossmatch Allied health notes reviewed: nursing
--- NOTE | 2020-08-05 14:30 | Progress Note ---
Assessment and Plan - Patient Problems (1) Acute on chronic renal failure Current Visit: Yes Status: Acute Qualifiers: Acute renal failure type: unspecified Chronic kidney disease stage: stage 3 (moderate) Chronic kidney disease stage 3 subtype: stage 3a (GFR 45-59) Qualified Code(s): N17.9 - Acute kidney failure, unspecified; N18.31 - Chronic kidney disease, stage 3a Plan to address problem: Acute on chronic kidney disease which was still worsening. Patient did not respond to IV diuretics. Hyperkalemia and metabolic acidosis were persisting. Dialysis was started 07/23/20. Tolerating dialysis with no complications. Continue Dialysis and monitor response (2) Anasarca Current Visit: Yes Status: Acute Plan to address problem: Patient did not respond to aggressive IV diuretics. Volume status is improved with intensive dialysis/ultrafiltration. Continue dialysis 3 times a week and only do ultrafiltration as indicated (3) Hyperkalemia Current Visit: Yes Status: Acute Plan to address problem: Hyperkalemia persisted despite medical management consult patient was started on dialysis for solute control. 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 Patient did not respond to intravenous diuretics. Dialysis was started for fluid removal. (5) Sepsis Current Visit: Yes Status: Suspected Qualifiers: Sepsis type: sepsis due to unspecified organism Sepsis acute organ dysfunction status: with acute organ dysfunction Severe sepsis acute organ dysfunction type: acute renal failure Acute renal failure type: unspecified Severe sepsis shock status: without septic shock Qualified Code(s): A41.9 - Sepsis, unspecified organism; R65.20 - Severe sepsis without septic shock; N17.9 - Acute kidney failure, unspecified Plan to address problem: Continue empiric antibiotic. Follow-up cultures. (6) Hypertensive chronic kidney disease with stage 1 through stage 4 chronic kidney disease, or unspecified chronic kidney disease Current Visit: No Status: Acute Plan to address problem: Blood pressure is improving. Follow-up (7) Type 2 diabetes mellitus with diabetic nephropathy Current Visit: No Status: Acute Plan to address problem: Blood sugar management by primary attending (8) Anoxic encephalopathy Current Visit: Yes Status: Acute Plan to address problem: No significant improvement. Subjective Date of service: 08/05/20 Principal diagnosis: RACQUEL Interval history: Patient seen lying in bed. Intubated on the ventilator. Not interacting. Objective - Exam Narrative Exam: Middle-aged -[place] male lying in bed intubated on ventilator HEENT: NCAT, endotracheal tube intact Neck: Supple, no venous distention CVS: S1S2 RRR with no murmur, rub or gallop Chest: Coarse breath sounds Abdomen: Protuberant, soft, nontender, no organomegaly, bowel sounds are present Extremities: mild edemathighs, wrinkled skin in both legs with hyperpigmentation Genitourinary deferred Skin with hyperpigmentation especially in the legs and feet, dressing right leg Neuro: Unresponsive - Vital Signs Vital signs: Vital Signs - 12hr 08/05/20 08/05/20 08/05/20 03:00 03:15 03:42 Temperature 98.0 F Pulse Rate 90 82 Pulse Rate [ From Monitor] Respiratory 17 Rate Blood Pressure 133/72 119/63 O2 Sat by Pulse 100 100 Oximetry 08/05/20 08/05/20 08/05/20 04:00 05:00 06:00 Temperature Pulse Rate 80 81 80 Pulse Rate [ 83 From Monitor] Respiratory 16 16 16 Rate Blood Pressure 117/64 118/69 118/71 O2 Sat by Pulse 100 100 100 Oximetry 08/05/20 08/05/20 08/05/20 06:55 07:00 07:51 Temperature Pulse Rate 80 85 79 Pulse Rate [ From Monitor] Respiratory 17 Rate Blood Pressure 123/72 121/70 112/63 O2 Sat by Pulse 100 99 Oximetry 08/05/20 08/05/20 08/05/20 08:00 09:00 10:00 Temperature 97.3 F L Pulse Rate 80 78 78 Pulse Rate [ 79 From Monitor] Respiratory 18 21 19 Rate Blood Pressure 99/58 95/55 98/57 O2 Sat by Pulse 99 99 100 Oximetry 08/05/20 08/05/20 08/05/20 11:00 11:30 12:00 Temperature Pulse Rate 78 79 79 Pulse Rate [ 80 From Monitor] Respiratory 19 18 Rate Blood Pressure 101/57 103/58 106/59 O2 Sat by Pulse 100 100 100 Oximetry - Lab 08/05/20 05:35 08/05/20 05:35 Most recent lab results ABG pH 7.520 pH Units (7.350-7.450) H 07/27/20 05:20 ABG pCO2 33.5 mm Hg 07/27/20 05:20 ABG pO2 64.2 mm Hg (80.0-90.0) L 07/27/20 05:20 ABG HCO3 26.8 mmol/L (20.0-26.0) H 07/27/20 05:20 ABG O2 Saturation 95.8 % (95.0-99.0) 07/27/20 05:20 Calcium 7.9 mg/dL (8.4-10.2) L 08/05/20 05:35 Phosphorus 3.40 mg/dL (2.5-4.5) 08/03/20 04:00 Magnesium 1.80 mg/dL (1.7-2.3) 08/03/20 04:00 Medications & Allergies - Medications Allergies/Adverse Reactions: Allergies No Known Allergies Allergy (Verified 06/19/19 17:53) Home Medications: Home Medications Medication Instructions Recorded Confirmed Last Taken Type FLUoxetine [PROzac] 20 mg PO QDAY #14 capsule 06/23/19 06/21/20 Unknown Rx traZODone [Desyrel] 50 mg PO QHS #10 tablet 06/23/19 06/21/20 Unknown Rx Folic Acid 1 mg PO DAILY #30 tablet 06/25/19 06/21/20 Unknown Rx Nicotine [Habitrol] 14 mg TD DAILY #30 patch 06/25/19 06/21/20 Unknown Rx Thiamine [Vitamin B-1] 100 mg PO QDAY #30 tablet 06/25/19 06/21/20 Unknown Rx Aspirin EC [Halfprin EC] 81 mg PO QDAY #30 tablet. 07/26/19 06/21/20 Unknown Rx levETIRAcetam [Keppra TAB] 750 mg PO BID #60 tablet 07/26/19 06/21/20 Unknown Rx Furosemide [Lasix TAB] 40 mg PO QDAY #30 tablet 04/28/20 06/21/20 Unknown Rx Famotidine [Pepcid] 20 mg PO BID #60 tablet 07/05/20 Unknown Rx Insulin NPH, Human [NovoLIN N] 5 unit SUB-Q BIDDIAB 30 Days #10 ml 07/05/20 06/21/20 Unknown Rx amLODIPine 10 mg PO QDAY #30 tablet 07/05/20 Unknown Rx carvediloL [Coreg] 12.5 mg PO BID #60 tablet 07/05/20 Unknown Rx hydrALAZINE [Apresoline TAB] 50 mg PO Q8HR #30 tablet 07/06/20 Unknown Rx Active Medications: Generic Name Dose Route Start Last Admin Trade Name Freq PRN Reason Stop Dose Admin Lipase/Protease/Amylase 1 each 07/23/20 14:17 Lipase 10,500/Protease 25,000/Amylase 43,750 (Units) Dr Cap FEEDTUBE PRN PRN For Clogged Feeding Tube Aspirin 81 mg 08/01/20 10:00 08/05/20 09:40 Aspirin 81 Mg Tab Chew PO 81 mg QDAY JODIE Administration Atropine Sulfate 1 mg 07/23/20 09:03 07/23/20 22:15 Atropine 0.1% (1 Mg/10 Ml) Cardiac Syringe IV 1 mg PRN PRN Administration Bradycardia Dextrose 50 ml 07/23/20 03:28 07/23/20 06:00 Dextrose 50% In Water (25gm) 50 Ml Syringe IV 50 ml Q30MIN PRN Administration Hypoglycemia Protocol Famotidine 20 mg 07/18/20 22:00 08/05/20 09:40 Famotidine 20 Mg Tab PO 20 mg DAILY JODIE Administration Folic Acid 1 mg 07/19/20 10:00 08/05/20 09:40 Folic Acid 1 Mg Tab PO 1 mg DAILY JODIE Administration Hydralazine HCl 50 mg 07/18/20 14:00 08/05/20 06:55 Hydralazine 25 Mg Tab PO 50 mg Q8HR JODIE Administration Hydralazine HCl 20 mg 07/22/20 14:02 Hydralazine 20 Mg/1 Ml Inj IV Q4HR PRN Blood Pressure Hydrophilic Ointment 1 applic 07/22/20 10:02 Lip Therapy Vaseline TP Q2HR PRN Dry Lips Norepinephrine 4 mg in 250 mls @ 7.5 mls/hr 07/24/20 10:00 07/24/20 15:35 Levophed Drip 4 Mg/Ns 250 Ml IV 0 mcg/min TITR JODIE 0 mls/hr Titration Protocol 2 MCG/MIN Sodium Chloride 100 mls @ 999 mls/hr 08/03/20 15:05 Nacl 0.9% IV FRANCISCO PRN Hypotension Insulin Glargine 5 units 08/03/20 22:00 08/04/20 23:23 Insulin Glargine 100 Units/Ml SUB-Q 5 units QHS JODIE Administration Insulin Human Lispro 0 unit 07/26/20 10:00 08/05/20 12:06 Insulin Lispro 100 Unit/Ml SUB-Q 2 unit Q6HR JODIE Administration Protocol Levetiracetam 750 mg 07/18/20 22:00 08/05/20 09:40 Levetiracetam 500 Mg/5 Ml Oral Liqd PO 750 mg BID JODIE Administration Multi-Ingred Cream/Lotion/Oil/Oint 1 applic 07/22/20 10:02 Mineral Oil/Petrolatum, White Ophth Oint 3.5 Gm OU Q4HR PRN Dry Eye(s) Scopolamine 1 each 07/31/20 10:00 08/03/20 09:19 Scopolamine Transdermal Patch 72 Hr TD 1 each Q3D JODIE Administration Simple Syrup 15 ml 07/23/20 14:17 Simple Syrup 15 Ml FEEDTUBE PRN PRN Hypoglycemia Simple Syrup 30 ml 07/23/20 14:17 Simple Syrup 15 Ml FEEDTUBE PRN PRN Hypoglycemia Sodium Bicarbonate 325 mg 07/23/20 14:17 Sodium Bicarbonate 325 Mg Tab FEEDTUBE PRN PRN For Clogged Feeding Tube Thiamine HCl 100 mg 07/19/20 10:00 08/05/20 09:40 Thiamine 100 Mg Tab PO 100 mg QDAY JODIE Administration
[2020-08-05] MEDS: INSULIN GLARGINE 100 UNITS/ML SUB-Q SCH (21:24)
[2020-08-06] MEDS: INSULIN LISPRO 100 UNIT/ML SUB-Q SCH ×4 (00:03→18:22)
[2020-08-06 06:30] LABS: Basophils # (Auto) 0.1 K/mm3 (0.0-0.1); Basophils % (Auto) 0.7 % (0.0-1.8); Eosinophils # (Auto) 0.1 K/mm3 (0.0-0.4); Eosinophils % (Auto) 1.3 % (0.0-4.3); Hemoglobin 6.6 gm/dl (11.8-15.2); Lymphocytes # (Auto) 1.6 K/mm3 (1.2-5.4); Lymphocytes % (Auto) 17.8 % (13.4-35.0); Mean Corpuscular HGB Conc 34 % (32-34); Mean Corpuscular Volume 93 fl (84-94); Monocytes # (Auto) 0.7 K/mm3 (0.0-0.8); Monocytes % (Auto) 7.5 % (0.0-7.3); Platelet Count 172 K/mm3 (140-440)
[2020-08-06] MEDS: hydrALAZINE 25 MG TAB PO SCH ×3 (06:47→21:07)
[2020-08-06 06:51] LABS: Calcium 8.3 mg/dL (8.4-10.2)
[2020-08-06] MEDS ORDERED: SODIUM CHLORIDE 0.9% 500 ML 500 ML IV NR (08:14)
[2020-08-06] MEDS: levETIRAcetam 500 MG/5 ML ORAL LIQD PO SCH ×2 (09:26→21:07)
[2020-08-06] MEDS: FAMOTIDINE 20 MG TAB PO SCH (09:26)
[2020-08-06] MEDS: THIAMINE 100 MG TAB PO SCH (09:26)
[2020-08-06] MEDS: SCOPOLAMINE TRANSDERMAL PATCH 72 HR TD SCH (09:26)
[2020-08-06] MEDS: FOLIC ACID 1 MG TAB PO SCH (09:26)
[2020-08-06] MEDS: ASPIRIN 81 MG TAB CHEW PO SCH (09:26)
--- NOTE | 2020-08-06 09:40 | Progress Note ---
Assessment and Plan - Patient Problems (1) Acute on chronic renal failure Current Visit: Yes Status: Acute Qualifiers: Acute renal failure type: unspecified Chronic kidney disease stage: stage 3 (moderate) Chronic kidney disease stage 3 subtype: stage 3a (GFR 45-59) Qualified Code(s): N17.9 - Acute kidney failure, unspecified; N18.31 - Chronic kidney disease, stage 3a Plan to address problem: Acute on chronic kidney disease which was still worsening. Patient did not respond to IV diuretics. Hyperkalemia and metabolic acidosis were persisting. Dialysis was started 07/23/20. Tolerating dialysis with no complications. Continue Hemodialysis and monitor response (2) Anasarca Current Visit: Yes Status: Acute Plan to address problem: Patient did not respond to aggressive IV diuretics. Volume status is improved with intensive dialysis/ultrafiltration. Continue dialysis 3 times a week and only do ultrafiltration as indicated. We will do ultrafiltration 1 day this week probably on . Discussed with RN (3) Hyperkalemia Current Visit: Yes Status: Acute Plan to address problem: Hyperkalemia persisted despite medical management consult patient was started on dialysis for solute control. 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 Patient did not respond to intravenous diuretics. Dialysis was started for fluid removal. (5) Sepsis Current Visit: Yes Status: Suspected Qualifiers: Sepsis type: sepsis due to unspecified organism Sepsis acute organ dysfunction status: with acute organ dysfunction Severe sepsis acute organ dysfunction type: acute renal failure Acute renal failure type: unspecified Severe sepsis shock status: without septic shock Qualified Code(s): A41.9 - Sepsis, unspecified organism; R65.20 - Severe sepsis without septic shock; N17.9 - Acute kidney failure, unspecified Plan to address problem: Continue empiric antibiotic. Follow-up cultures. (6) Hypertensive chronic kidney disease with stage 1 through stage 4 chronic kidney disease, or unspecified chronic kidney disease Current Visit: No Status: Acute Plan to address problem: Blood pressure is improving. Follow-up (7) Type 2 diabetes mellitus with diabetic nephropathy Current Visit: No Status: Acute Plan to address problem: Blood sugar management by primary attending (8) Anoxic encephalopathy Current Visit: Yes Status: Acute Plan to address problem: No significant improvement. Subjective Date of service: 08/06/20 Principal diagnosis: RACQUEL Interval history: Patient seen lying in bed. Intubated on the ventilator. Not interacting. Dialysis is being started Objective - Exam Narrative Exam: Middle-aged -Italian male lying in bed intubated on ventilator HEENT: NCAT, endotracheal tube intact Neck: Supple, no venous distention CVS: S1S2 RRR with no murmur, rub or gallop Chest: Coarse breath sounds Abdomen: Protuberant, soft, nontender, no organomegaly, bowel sounds are present Extremities: mild edema thighs, wrinkled skin in both legs with hyperpigmentation Genitourinary deferred Skin with hyperpigmentation especially in the legs and feet, dressing right leg Neuro: Unresponsive - Vital Signs Vital signs: Vital Signs - 12hr 08/05/20 08/05/20 08/05/20 22:00 23:00 23:53 Temperature Pulse Rate 81 80 81 Pulse Rate [ From Monitor] Respiratory 20 20 Rate Blood Pressure 118/66 115/65 118/67 O2 Sat by Pulse 100 100 100 Oximetry 08/06/20 08/06/20 08/06/20 00:00 01:00 02:00 Temperature 98.6 F Pulse Rate 81 80 83 Pulse Rate [ 81 From Monitor] Respiratory 19 18 19 Rate Blood Pressure 122/65 112/62 122/67 O2 Sat by Pulse 100 100 100 Oximetry 08/06/20 08/06/20 08/06/20 03:00 04:00 05:00 Temperature 100.7 F H Pulse Rate 85 83 78 Pulse Rate [ 83 From Monitor] Respiratory 20 19 18 Rate Blood Pressure 123/65 117/63 119/66 O2 Sat by Pulse 100 100 100 Oximetry 08/06/20 08/06/20 08/06/20 06:00 06:47 07:00 Temperature Pulse Rate 85 100 H 82 Pulse Rate [ From Monitor] Respiratory 18 17 Rate Blood Pressure 136/77 117/63 137/79 O2 Sat by Pulse 100 Oximetry 08/06/20 08/06/20 08:00 09:30 Temperature Pulse Rate 76 76 Pulse Rate [ 78 From Monitor] Respiratory 16 Rate Blood Pressure 131/74 143/78 O2 Sat by Pulse 100 Oximetry - Lab 08/06/20 05:53 08/06/20 05:53 Most recent lab results ABG pH 7.520 pH Units (7.350-7.450) H 03/19/21 05:20 ABG pCO2 33.5 mm Hg 07/27/20 05:20 ABG pO2 64.2 mm Hg (80.0-90.0) L 07/27/20 05:20 ABG HCO3 26.8 mmol/L (20.0-26.0) H 07/27/20 05:20 ABG O2 Saturation 95.8 % (95.0-99.0) 07/27/20 05:20 Calcium 8.3 mg/dL (8.4-10.2) L 08/06/20 05:53 Phosphorus 3.40 mg/dL (2.5-4.5) 08/03/20 04:00 Magnesium 1.80 mg/dL (1.7-2.3) 08/03/20 04:00 Medications & Allergies - Medications Allergies/Adverse Reactions: Allergies No Known Allergies Allergy (Verified 06/19/19 17:53) Home Medications: Home Medications Medication Instructions Recorded Confirmed Last Taken Type FLUoxetine [PROzac] 20 mg PO QDAY #14 capsule 06/23/19 06/21/20 Unknown Rx traZODone [Desyrel] 50 mg PO QHS #10 tablet 06/23/19 06/21/20 Unknown Rx Folic Acid 1 mg PO DAILY #30 tablet 06/25/19 06/21/20 Unknown Rx Nicotine [Habitrol] 14 mg TD DAILY #30 patch 06/25/19 06/21/20 Unknown Rx Thiamine [Vitamin B-1] 100 mg PO QDAY #30 tablet 06/25/19 06/21/20 Unknown Rx Aspirin EC [Halfprin EC] 81 mg PO QDAY #30 tablet. 07/26/19 06/21/20 Unknown Rx levETIRAcetam [Keppra TAB] 750 mg PO BID #60 tablet 07/26/19 06/21/20 Unknown Rx Furosemide [Lasix TAB] 40 mg PO QDAY #30 tablet 04/28/20 06/21/20 Unknown Rx Famotidine [Pepcid] 20 mg PO BID #60 tablet 07/05/20 Unknown Rx Insulin NPH, Human [NovoLIN N] 5 unit SUB-Q BIDDIAB 30 Days #10 ml 07/05/20 06/21/20 Unknown Rx amLODIPine 10 mg PO QDAY #30 tablet 07/05/20 Unknown Rx carvediloL [Coreg] 12.5 mg PO BID #60 tablet 07/05/20 Unknown Rx hydrALAZINE [Apresoline TAB] 50 mg PO Q8HR #30 tablet 07/06/20 Unknown Rx Active Medications: Generic Name Dose Route Start Last Admin Trade Name Freq PRN Reason Stop Dose Admin Lipase/Protease/Amylase 1 each 07/23/20 14:17 Lipase 10,500/Protease 25,000/Amylase 43,750 (Units) Dr Cap FEEDTUBE PRN PRN For Clogged Feeding Tube Aspirin 81 mg 08/01/20 10:00 08/06/20 09:26 Aspirin 81 Mg Tab Chew PO 81 mg QDAY JODIE Administration Atropine Sulfate 1 mg 07/23/20 09:03 07/23/20 22:15 Atropine 0.1% (1 Mg/10 Ml) Cardiac Syringe IV 1 mg PRN PRN Administration Bradycardia Dextrose 50 ml 07/23/20 03:28 07/23/20 06:00 Dextrose 50% In Water (25gm) 50 Ml Syringe IV 50 ml Q30MIN PRN Administration Hypoglycemia Protocol Famotidine 20 mg 07/18/20 22:00 08/06/20 09:26 Famotidine 20 Mg Tab PO 20 mg DAILY JODIE Administration Folic Acid 1 mg 07/19/20 10:00 08/06/20 09:26 Folic Acid 1 Mg Tab PO 1 mg DAILY JODIE Administration Hydralazine HCl 50 mg 07/18/20 14:00 08/06/20 06:47 Hydralazine 25 Mg Tab PO Not Given Q8HR JODIE Hydralazine HCl 20 mg 07/22/20 14:02 Hydralazine 20 Mg/1 Ml Inj IV Q4HR PRN Blood Pressure Hydrophilic Ointment 1 applic 07/22/20 10:02 Lip Therapy Vaseline TP Q2HR PRN Dry Lips Norepinephrine 4 mg in 250 mls @ 7.5 mls/hr 07/24/20 10:00 07/24/20 15:35 Levophed Drip 4 Mg/Ns 250 Ml IV 0 mcg/min TITR JODIE 0 mls/hr Titration Protocol 2 MCG/MIN Sodium Chloride 100 mls @ 999 mls/hr 08/03/20 15:05 Nacl 0.9% IV FRANCISCO PRN Hypotension Sodium Chloride 500 mls @ 0 mls/hr 08/06/20 08:14 Nacl 0.9% 500 Ml IV 08/06/20 23:59 ONCE NR As Directed Insulin Glargine 5 units 08/03/20 22:00 08/05/20 21:24 Insulin Glargine 100 Units/Ml SUB-Q 5 units QHS JODIE Administration Insulin Human Lispro 0 unit 07/26/20 10:00 08/06/20 06:00 Insulin Lispro 100 Unit/Ml SUB-Q Not Given Q6HR [facility] Protocol Levetiracetam 750 mg 07/18/20 22:00 08/06/20 09:26 Levetiracetam 500 Mg/5 Ml Oral Liqd PO 750 mg BID JODIE Administration Multi-Ingred Cream/Lotion/Oil/Oint 1 applic 07/22/20 10:02 Mineral Oil/Petrolatum, White Ophth Oint 3.5 Gm OU Q4HR PRN Dry Eye(s) Scopolamine 1 each 07/31/20 10:00 08/06/20 09:26 Scopolamine Transdermal Patch 72 Hr TD 1 each Q3D JODIE Administration Simple Syrup 15 ml 07/23/20 14:17 Simple Syrup 15 Ml FEEDTUBE PRN PRN Hypoglycemia Simple Syrup 30 ml 07/23/20 14:17 Simple Syrup 15 Ml FEEDTUBE PRN PRN Hypoglycemia Sodium Bicarbonate 325 mg 07/23/20 14:17 Sodium Bicarbonate 325 Mg Tab FEEDTUBE PRN PRN For Clogged Feeding Tube Thiamine HCl 100 mg 07/19/20 10:00 08/06/20 09:26 Thiamine 100 Mg Tab PO 100 mg QDAY JODIE Administration
[2020-08-06] MEDS ORDERED: SODIUM CHLORIDE 0.9% 500 ML 500 ML IV SCH (10:00)
--- NOTE | 2020-08-06 11:47 | Progress Note ---
Assessment and Plan 8 y/o male with acute respiratory failure secondary to worsening renal failure, volume overload and altered mental state 08/06/20: CM to call daughter today. would like for her to visit her father so she can see his clinical state for herself. Continue supportive measures. Brain MRI has been done but not read yet. No neuro follow up since repeat EEG read. Goals of care to be discussed with family once all information has been assessed and interpreted. 08/05/20: Will call daughter back tomorrow to assess where we are as far as goals of care. It does not appear that she visited this weekend. Will continue supportive measures. Overall prognosis is appears poor. 08/04/20: Long discussion with daughter over the phone. Explained overall poor prognosis. Per daughter, patient would not want to exist like this. She is going to come visit and at that time I will discuss with her about future plans (hospice, vs withdrawal of care and comfort measures). Continue all supportive therapy for now and await daughter visit and her speaking with family. 08/03/20: Reviewed repeat EEG. Getting MRI today. Will ask Neuro to see patient again after MRI. Given current state and now reading on EEG, will need to have family discussion once MRI is done. Likely will need trach and peg placement. Transfuse today during HD. 08/02/20: Will consider ordering repeat EEG today tomorrow. Neuro has not re- evaluated the patient since initial consult. Hold on transfusion today as bp is stable and HD is not until tomorrow. Overall prognosis is guarded to poor. May need to start looking into LTACH if not able to wean. Currently on minimal settings but mental state will not allow traditional extubation. 08/01/20: Will repeat EEG at request of neurology. No MRI requested. CT and EEG report not equivalent. Trial of narcan given but no improvement. Does have urine in the bladder but no jones and prior history of obstruction requiring urology to place jones. May need to consider asking them to re-evaluate. Prognosis remains guarded to poor. 07/31/20: Will obtain, EEG and neuro consult. They will likely ask for MRI so will speak with family about obtaining screening form info. Continue PSV trials. HD per renal. Guarded to poor prognosis. 07/30/20: Mental state continues to prevent conventional extubation. HD per renal. Need to repeat Head CT to check for other damage. 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 Very very guarded prognosis. If repeat head CT is negative, will need neuro eval and EEG 07/27/20: Mental state continues to prevent conventional extubation. Currently stable on minimal vent settings. HD per renal, does not appear he was dialyzed yesterday so may get it today. If not more awake by tomorrow, suggest repeat head CT. Continue all other supportive measures. 07/26/20: Drop PEEP down to 6. Once more awake PSV trials. HD per renal. Appears to be helping, maybe they will dialyze again today. Prognosis still remains guarded. 1. Needs HD 2. Wean FiO2 and PEEP as tolerated 3. Guarded prognosis CCT 31 minutes. Subjective Date of service: 08/06/20 Principal diagnosis: RACQUEL Interval history: Daughter did try to come on Thursday but there was a misunderstanding at the desk. Mental status is unchanged. No improvement but not worse. Objective Vital Signs - 12hr 08/05/20 08/06/20 08/06/20 23:53 00:00 01:00 Temperature 98.6 F Pulse Rate 81 81 80 Pulse Rate [ 81 From Monitor] Respiratory 19 18 Rate Blood Pressure 118/67 122/65 112/62 O2 Sat by Pulse 100 100 100 Oximetry O2 Sat by Pulse Oximetry [ Anterior Right] 08/06/20 08/06/20 08/06/20 02:00 03:00 04:00 Temperature 100.7 F H Pulse Rate 83 85 83 Pulse Rate [ 83 From Monitor] Respiratory 19 20 19 Rate Blood Pressure 122/67 123/65 117/63 O2 Sat by Pulse 100 100 100 Oximetry O2 Sat by Pulse Oximetry [ Anterior Right] 08/06/20 08/06/20 08/06/20 05:00 06:00 06:47 Temperature Pulse Rate 78 85 100 H Pulse Rate [ From Monitor] Respiratory 18 18 Rate Blood Pressure 119/66 136/77 117/63 O2 Sat by Pulse 100 Oximetry O2 Sat by Pulse Oximetry [ Anterior Right] 08/06/20 08/06/20 08/06/20 07:00 08:00 09:22 Temperature 98.1 F Pulse Rate 82 76 78 Pulse Rate [ 78 From Monitor] Respiratory 17 16 17 Rate Blood Pressure 137/79 131/74 131/76 O2 Sat by Pulse 100 100 Oximetry O2 Sat by Pulse 100 Oximetry [ Anterior Right] 08/06/20 08/06/20 08/06/20 09:30 09:45 10:00 Temperature Pulse Rate 76 78 75 Pulse Rate [ From Monitor] Respiratory Rate Blood Pressure 143/78 135/79 115/66 O2 Sat by Pulse Oximetry O2 Sat by Pulse Oximetry [ Anterior Right] 08/06/20 08/06/20 08/06/20 10:15 10:30 10:45 Temperature Pulse Rate 82 83 81 Pulse Rate [ From Monitor] Respiratory Rate Blood Pressure 114/66 116/65 105/63 O2 Sat by Pulse Oximetry O2 Sat by Pulse Oximetry [ Anterior Right] 08/06/20 08/06/20 08/06/20 11:00 11:15 11:30 Temperature Pulse Rate 82 80 79 Pulse Rate [ From Monitor] Respiratory Rate Blood Pressure 108/62 106/61 112/63 O2 Sat by Pulse Oximetry O2 Sat by Pulse Oximetry [ Anterior Right] Constitutional: appears uncomfortable (cpap, orally intubated), other (on vent orally intubated) Eyes: non-icteric ENT: epistaxis Neck: other (large in circumference) Effort: mildly labored Ascultation: Bilateral: diminished breath sounds Neurologic: non-focal exam, unable to assess CBC and BMP: 08/06/20 05:53 08/06/20 05:53 ABG, PT/INR, D-dimer: ABG ABG pH 7.520 pH Units (7.350-7.450) H 07/27/20 05:20 POC ABG pCO2 32.7 mmHg (32.0-48.0) 07/25/20 03:57 ABG pCO2 33.5 mm Hg 07/27/20 05:20 POC ABG pO2 62.7 mmHg (83-108) L 07/25/20 03:57 ABG pO2 64.2 mm Hg (80.0-90.0) L 07/27/20 05:20 POC ABG HCO3 24.8 07/25/20 03:57 ABG O2 Saturation 95.8 % (95.0-99.0) 07/27/20 05:20 PT/INR, D-dimer PT 15.9 Sec. (12.2-14.9) H 07/22/20 10:30 INR 1.27 (0.87-1.13) H 07/22/20 10:30 D-Dimer 1036.46 ng/mlDDU (0-234) H 07/18/20 08:56 Abnormal lab findings: Abnormal Labs 07/18/20 07/18/20 07/18/20 08:56 08:56 08:56 WBC 3.5 L RBC 2.51 L Hgb 8.0 L Hct 24.5 L MCV 98 H RDW 18.3 H Plt Count 58 L Lymph % (Auto) [place] % (Auto) 11.1 H Lymph # (Auto) [place] # (Auto) Seg Neutrophils % Seg Neuts % (Manual) Lymphocytes % (Manual) Nucleated RBC % Seg Neutrophils # Man Lymphocytes # (Manual) PT INR 1.18 H APTT D-Dimer ABG pH POC ABG pCO2 POC ABG pO2 ABG pO2 ABG HCO3 ABG Base Excess ABG Hemoglobin ABG Oxyhemoglobin ABG Potassium ABG Chloride ABG Glucose Oxyhemoglobin Carboxyhemoglobin Sodium 146 H Potassium 5.2 H Chloride 117.3 H Carbon Dioxide 21 L BUN 52 H Creatinine 3.1 H Glucose 118 H POC Glucose Calcium 8.1 L Phosphorus AST ALT Alkaline Phosphatase Lactate Dehydrogenase CK-MB (CK-2) CK-MB (CK-2) Rel Index Troponin T 0.057 H C-Reactive Protein NT-Pro-B Natriuret Pep Albumin HDL Cholesterol 67 H TSH Arterial Blood Glucose Arterial Blood Ionized Calcium Hepatitis C Antibody Crossmatch 07/18/20 07/18/20 07/18/20 08:56 08:56 08:56 WBC RBC Hgb Hct MCV RDW Plt Count Lymph % (Auto) [place] % (Auto) Lymph # (Auto) [place] # (Auto) Seg Neutrophils % Seg Neuts % (Manual) Lymphocytes % (Manual) Nucleated RBC % Seg Neutrophils # Man Lymphocytes # (Manual) PT INR APTT D-Dimer 1036.46 H ABG pH POC ABG pCO2 POC ABG pO2 ABG pO2 ABG HCO3 ABG Base Excess ABG Hemoglobin ABG Oxyhemoglobin ABG Potassium ABG Chloride ABG Glucose Oxyhemoglobin Carboxyhemoglobin Sodium Potassium Chloride Carbon Dioxide BUN Creatinine Glucose POC Glucose Calcium Phosphorus AST ALT Alkaline Phosphatase Lactate Dehydrogenase CK-MB (CK-2) CK-MB (CK-2) Rel Index Troponin T C-Reactive Protein NT-Pro-B Natriuret Pep 4777 H Albumin HDL Cholesterol TSH 5.520 H Arterial Blood Glucose Arterial Blood Ionized Calcium Hepatitis C Antibody Crossmatch 07/18/20 07/18/20 07/18/20 10:36 18:56 19:00 WBC RBC Hgb Hct MCV RDW Plt Count Lymph % (Auto) [place] % (Auto) Lymph # (Auto) [place] # (Auto) Seg Neutrophils % Seg Neuts % (Manual) Lymphocytes % (Manual) Nucleated RBC % Seg Neutrophils # Man Lymphocytes # (Manual) PT INR APTT D-Dimer ABG pH POC ABG pCO2 POC ABG pO2 ABG pO2 ABG HCO3 ABG Base Excess ABG Hemoglobin ABG Oxyhemoglobin ABG Potassium ABG Chloride ABG Glucose Oxyhemoglobin Carboxyhemoglobin Sodium Potassium Chloride Carbon Dioxide BUN Creatinine Glucose 101 H POC Glucose 66 L 63 L Calcium Phosphorus AST ALT Alkaline Phosphatase Lactate Dehydrogenase 212 H CK-MB (CK-2) CK-MB (CK-2) Rel Index Troponin T C-Reactive Protein 2.10 H NT-Pro-B Natriuret Pep Albumin HDL Cholesterol TSH Arterial Blood Glucose Arterial Blood Ionized Calcium Hepatitis C Antibody Crossmatch 07/19/20 07/19/20 07/19/20 06:00 06:00 16:26 WBC 3.9 L RBC 2.34 L Hgb 7.5 L Hct 23.1 L MCV 99 H RDW 18.6 H Plt Count 52 L Lymph % (Auto) [place] % (Auto) 9.4 H Lymph # (Auto) 1.0 L [place] # (Auto) Seg Neutrophils % Seg Neuts % (Manual) Lymphocytes % (Manual) Nucleated RBC % Seg Neutrophils # Man Lymphocytes # (Manual) PT INR APTT D-Dimer ABG pH POC ABG pCO2 POC ABG pO2 ABG pO2 ABG HCO3 ABG Base Excess ABG Hemoglobin ABG Oxyhemoglobin ABG Potassium ABG Chloride ABG Glucose Oxyhemoglobin Carboxyhemoglobin Sodium Potassium 5.3 H Chloride 115.8 H Carbon Dioxide BUN 52 H Creatinine 3.4 H Glucose 114 H POC Glucose 123 H Calcium 7.7 L Phosphorus AST 77 H ALT < 5 L Alkaline Phosphatase 678 H Lactate Dehydrogenase CK-MB (CK-2) CK-MB (CK-2) Rel Index Troponin T C-Reactive Protein NT-Pro-B Natriuret Pep Albumin 2.2 L HDL Cholesterol TSH Arterial Blood Glucose Arterial Blood Ionized Calcium Hepatitis C Antibody Crossmatch 07/19/20 07/20/20 07/20/20 21:20 08:25 08:25 WBC 3.6 L RBC 2.54 L Hgb 8.0 L Hct 24.6 L MCV 97 H RDW 18.0 H Plt Count 47 L Lymph % (Auto) [place] % (Auto) 9.8 H Lymph # (Auto) 0.9 L [place] # (Auto) Seg Neutrophils % Seg Neuts % (Manual) Lymphocytes % (Manual) Nucleated RBC % Seg Neutrophils # Man Lymphocytes # (Manual) PT INR APTT D-Dimer ABG pH POC ABG pCO2 POC ABG pO2 ABG pO2 ABG HCO3 ABG Base Excess ABG Hemoglobin ABG Oxyhemoglobin ABG Potassium ABG Chloride ABG Glucose Oxyhemoglobin Carboxyhemoglobin Sodium Potassium 5.4 H Chloride 115.8 H Carbon Dioxide BUN 56 H Creatinine 3.8 H Glucose 110 H POC Glucose 142 H Calcium 7.9 L Phosphorus AST ALT Alkaline Phosphatase Lactate Dehydrogenase CK-MB (CK-2) CK-MB (CK-2) Rel Index Troponin T C-Reactive Protein NT-Pro-B Natriuret Pep Albumin HDL Cholesterol TSH Arterial Blood Glucose Arterial Blood Ionized Calcium Hepatitis C Antibody Crossmatch 07/20/20 07/20/20 07/20/20 11:27 16:34 21:27 WBC RBC Hgb Hct MCV RDW Plt Count Lymph % (Auto) [place] % (Auto) Lymph # (Auto) [place] # (Auto) Seg Neutrophils % Seg Neuts % (Manual) Lymphocytes % (Manual) Nucleated RBC % Seg Neutrophils # Man Lymphocytes # (Manual) PT INR APTT D-Dimer ABG pH POC ABG pCO2 POC ABG pO2 ABG pO2 ABG HCO3 ABG Base Excess ABG Hemoglobin ABG Oxyhemoglobin ABG Potassium ABG Chloride ABG Glucose Oxyhemoglobin Carboxyhemoglobin Sodium Potassium Chloride Carbon Dioxide BUN Creatinine Glucose POC Glucose 136 H 186 H 175 H Calcium Phosphorus AST ALT Alkaline Phosphatase Lactate Dehydrogenase CK-MB (CK-2) CK-MB (CK-2) Rel Index Troponin T C-Reactive Protein NT-Pro-B Natriuret Pep Albumin HDL Cholesterol TSH Arterial Blood Glucose Arterial Blood Ionized Calcium Hepatitis C Antibody Crossmatch 07/21/20 07/22/20 07/22/20 10:31 07:25 10:30 WBC 3.8 L RBC 2.53 L Hgb 7.9 L Hct 24.7 L MCV 98 H RDW 18.7 H Plt Count 35 L Lymph % (Auto) [place] % (Auto) Lymph # (Auto) [place] # (Auto) Seg Neutrophils % Seg Neuts % (Manual) 92.0 H Lymphocytes % (Manual) 6.0 L Nucleated RBC % 13.0 H Seg Neutrophils # Man Lymphocytes # (Manual) 0.2 L PT INR APTT D-Dimer ABG pH POC ABG pCO2 POC ABG pO2 ABG pO2 ABG HCO3 ABG Base Excess ABG Hemoglobin ABG Oxyhemoglobin ABG Potassium ABG Chloride ABG Glucose Oxyhemoglobin Carboxyhemoglobin Sodium Potassium 5.3 H 5.6 H Chloride 115.0 H 115.1 H Carbon Dioxide 18 L BUN 59 H 61 H Creatinine 4.3 H 4.6 H Glucose 109 H POC Glucose Calcium 7.6 L 7.6 L Phosphorus AST ALT Alkaline Phosphatase Lactate Dehydrogenase CK-MB (CK-2) CK-MB (CK-2) Rel Index Troponin T C-Reactive Protein NT-Pro-B Natriuret Pep Albumin HDL Cholesterol TSH Arterial Blood Glucose Arterial Blood Ionized Calcium Hepatitis C Antibody Crossmatch 07/22/20 07/22/20 07/22/20 10:30 10:30 10:30 WBC RBC Hgb Hct MCV RDW Plt Count Lymph % (Auto) [place] % (Auto) Lymph # (Auto) [place] # (Auto) Seg Neutrophils % Seg Neuts % (Manual) Lymphocytes % (Manual) Nucleated RBC % Seg Neutrophils # Man Lymphocytes # (Manual) PT 15.9 H INR 1.27 H APTT 38.3 H D-Dimer ABG pH POC ABG pCO2 POC ABG pO2 ABG pO2 ABG HCO3 ABG Base Excess ABG Hemoglobin ABG Oxyhemoglobin ABG Potassium ABG Chloride ABG Glucose Oxyhemoglobin Carboxyhemoglobin Sodium 146 H Potassium 5.4 H Chloride 116.4 H Carbon Dioxide BUN 61 H Creatinine 4.6 H Glucose 115 H POC Glucose Calcium 7.5 L Phosphorus 5.80 H AST 66 H ALT < 5 L Alkaline Phosphatase 604 H Lactate Dehydrogenase CK-MB (CK-2) 10.9 H CK-MB (CK-2) Rel Index 16.2 H Troponin T 0.047 H C-Reactive Protein NT-Pro-B Natriuret Pep Albumin 2.1 L HDL Cholesterol TSH Arterial Blood Glucose Arterial Blood Ionized Calcium Hepatitis C Antibody Crossmatch 07/22/20 07/23/20 07/23/20 11:10 03:38 03:47 WBC RBC Hgb Hct MCV RDW Plt Count Lymph % (Auto) [place] % (Auto) Lymph # (Auto) [place] # (Auto) Seg Neutrophils % Seg Neuts % (Manual) Lymphocytes % (Manual) Nucleated RBC % Seg Neutrophils # Man Lymphocytes # (Manual) PT INR APTT D-Dimer ABG pH 7.203 L POC ABG pCO2 48.7 H 29.7 L POC ABG pO2 80.6 L 267.3 H ABG pO2 ABG HCO3 ABG Base Excess ABG Hemoglobin 8.6 L 8.2 L ABG Oxyhemoglobin 91.1 L 98.2 H ABG Potassium 5.4 H 5.4 H ABG Chloride 122.0 H 122.0 H ABG Glucose 105 H 101 H Oxyhemoglobin Carboxyhemoglobin 2.0 H Sodium Potassium Chloride Carbon Dioxide BUN Creatinine Glucose POC Glucose 65 L Calcium Phosphorus AST ALT Alkaline Phosphatase Lactate Dehydrogenase CK-MB (CK-2) CK-MB (CK-2) Rel Index Troponin T C-Reactive Protein NT-Pro-B Natriuret Pep Albumin HDL Cholesterol TSH Arterial Blood Glucose 105 H 101 H Arterial Blood Ionized Calcium 4.5 L 4.4 L Hepatitis C Antibody Crossmatch 07/23/20 07/23/20 07/23/20 06:05 06:05 06:27 WBC RBC 2.36 L Hgb 7.5 L Hct 22.7 L MCV 96 H RDW 18.9 H Plt Count 42 L Lymph % (Auto) [place] % (Auto) Lymph # (Auto) [place] # (Auto) Seg Neutrophils % Seg Neuts % (Manual) Lymphocytes % (Manual) Nucleated RBC % Seg Neutrophils # Man Lymphocytes # (Manual) PT INR APTT D-Dimer ABG pH POC ABG pCO2 POC ABG pO2 ABG pO2 ABG HCO3 ABG Base Excess ABG Hemoglobin ABG Oxyhemoglobin ABG Potassium ABG Chloride ABG Glucose Oxyhemoglobin Carboxyhemoglobin Sodium Potassium 5.6 H Chloride 114.1 H Carbon Dioxide 17 L BUN 62 H Creatinine 5.1 H Glucose 215 H POC Glucose 114 H Calcium 7.3 L Phosphorus AST ALT Alkaline Phosphatase Lactate Dehydrogenase CK-MB (CK-2) CK-MB (CK-2) Rel Index Troponin T C-Reactive Protein NT-Pro-B Natriuret Pep Albumin HDL Cholesterol TSH Arterial Blood Glucose Arterial Blood Ionized Calcium Hepatitis C Antibody Crossmatch 07/23/20 07/23/20 07/24/20 11:36 19:20 04:00 WBC RBC Hgb Hct MCV RDW Plt Count Lymph % (Auto) [place] % (Auto) Lymph # (Auto) [place] # (Auto) Seg Neutrophils % Seg Neuts % (Manual) Lymphocytes % (Manual) Nucleated RBC % Seg Neutrophils # Man Lymphocytes # (Manual) PT INR APTT D-Dimer ABG pH POC ABG pCO2 POC ABG pO2 ABG pO2 ABG HCO3 ABG Base Excess ABG Hemoglobin ABG Oxyhemoglobin ABG Potassium ABG Chloride ABG Glucose Oxyhemoglobin Carboxyhemoglobin Sodium Potassium Chloride 110.8 H Carbon Dioxide BUN 47 H Creatinine 4.4 H Glucose POC Glucose 66 L Calcium 7.3 L Phosphorus AST ALT Alkaline Phosphatase Lactate Dehydrogenase CK-MB (CK-2) CK-MB (CK-2) Rel Index Troponin T C-Reactive Protein NT-Pro-B Natriuret Pep Albumin HDL Cholesterol TSH Arterial Blood Glucose Arterial Blood Ionized Calcium Hepatitis C Antibody Reactive A Crossmatch 07/24/20 07/24/20 07/24/20 04:25 11:37 Unknown WBC RBC 2.36 L Hgb 7.5 L Hct 22.5 L MCV 95 H RDW 18.4 H Plt Count 38 L Lymph % (Auto) [place] % (Auto) Lymph # (Auto) [place] # (Auto) Seg Neutrophils % Seg Neuts % (Manual) Lymphocytes % (Manual) Nucleated RBC % Seg Neutrophils # Man Lymphocytes # (Manual) PT INR APTT D-Dimer ABG pH POC ABG pCO2 POC ABG pO2 64.8 L ABG pO2 ABG HCO3 ABG Base Excess ABG Hemoglobin 7.9 L ABG Oxyhemoglobin ABG Potassium ABG Chloride 114.0 H ABG Glucose Oxyhemoglobin Carboxyhemoglobin Sodium Potassium Chloride Carbon Dioxide BUN Creatinine Glucose POC Glucose 109 H Calcium Phosphorus AST ALT Alkaline Phosphatase Lactate Dehydrogenase CK-MB (CK-2) CK-MB (CK-2) Rel Index Troponin T C-Reactive Protein NT-Pro-B Natriuret Pep Albumin HDL Cholesterol TSH Arterial Blood Glucose Arterial Blood Ionized Calcium 4.2 L Hepatitis C Antibody Crossmatch 07/25/20 07/25/20 07/25/20 00:12 03:57 04:00 WBC RBC Hgb Hct MCV RDW Plt Count Lymph % (Auto) [place] % (Auto) Lymph # (Auto) [place] # (Auto) Seg Neutrophils % Seg Neuts % (Manual) Lymphocytes % (Manual) Nucleated RBC % Seg Neutrophils # Man Lymphocytes # (Manual) PT INR APTT D-Dimer ABG pH 7.497 H POC ABG pCO2 POC ABG pO2 62.7 L ABG pO2 ABG HCO3 ABG Base Excess ABG Hemoglobin 8.5 L ABG Oxyhemoglobin 90.1 L ABG Potassium ABG Chloride 110.0 H ABG Glucose 157 H Oxyhemoglobin Carboxyhemoglobin Sodium Potassium Chloride Carbon Dioxide BUN 38 H Creatinine 4.1 H Glucose 160 H POC Glucose 140 H Calcium 7.9 L Phosphorus AST ALT Alkaline Phosphatase Lactate Dehydrogenase CK-MB (CK-2) CK-MB (CK-2) Rel Index Troponin T C-Reactive Protein NT-Pro-B Natriuret Pep Albumin HDL Cholesterol TSH Arterial Blood Glucose 157 H Arterial Blood Ionized Calcium 4.3 L Hepatitis C Antibody Crossmatch 07/25/20 07/25/20 07/25/20 04:00 06:24 12:11 WBC RBC 2.48 L Hgb 7.7 L Hct 23.2 L MCV RDW 18.4 H Plt Count 44 L Lymph % (Auto) [place] % (Auto) 8.5 H Lymph # (Auto) [place] # (Auto) Seg Neutrophils % 76.7 H Seg Neuts % (Manual) Lymphocytes % (Manual) Nucleated RBC % Seg Neutrophils # Man Lymphocytes # (Manual) PT INR APTT D-Dimer ABG pH POC ABG pCO2 POC ABG pO2 ABG pO2 ABG HCO3 ABG Base Excess ABG Hemoglobin ABG Oxyhemoglobin ABG Potassium ABG Chloride ABG Glucose Oxyhemoglobin Carboxyhemoglobin Sodium Potassium Chloride Carbon Dioxide BUN Creatinine Glucose POC Glucose 155 H 205 H Calcium Phosphorus AST ALT Alkaline Phosphatase Lactate Dehydrogenase CK-MB (CK-2) CK-MB (CK-2) Rel Index Troponin T C-Reactive Protein NT-Pro-B Natriuret Pep Albumin HDL Cholesterol TSH Arterial Blood Glucose Arterial Blood Ionized Calcium Hepatitis C Antibody Crossmatch 07/25/20 07/26/20 07/26/20 17:41 00:18 03:54 WBC RBC Hgb Hct MCV RDW Plt Count Lymph % (Auto) [place] % (Auto) Lymph # (Auto) [place] # (Auto) Seg Neutrophils % Seg Neuts % (Manual) Lymphocytes % (Manual) Nucleated RBC % Seg Neutrophils # Man Lymphocytes # (Manual) PT INR APTT D-Dimer ABG pH 7.512 H POC ABG pCO2 POC ABG pO2 ABG pO2 121.2 H ABG HCO3 27.1 H ABG Base Excess 3.6 H ABG Hemoglobin < 5.1 L ABG Oxyhemoglobin ABG Potassium ABG Chloride ABG Glucose Oxyhemoglobin Carboxyhemoglobin Sodium Potassium Chloride Carbon Dioxide BUN Creatinine Glucose POC Glucose 227 H 198 H Calcium Phosphorus AST ALT Alkaline Phosphatase Lactate Dehydrogenase CK-MB (CK-2) CK-MB (CK-2) Rel Index Troponin T C-Reactive Protein NT-Pro-B Natriuret Pep Albumin HDL Cholesterol TSH Arterial Blood Glucose Arterial Blood Ionized Calcium Hepatitis C Antibody Crossmatch 07/26/20 07/26/20 07/26/20 06:31 07:00 12:09 WBC RBC 2.33 L Hgb 7.4 L Hct 21.6 L MCV RDW 18.0 H Plt Count 50 L Lymph % (Auto) 13.0 L [place] % (Auto) Lymph # (Auto) [place] # (Auto) Seg Neutrophils % 79.8 H Seg Neuts % (Manual) Lymphocytes % (Manual) Nucleated RBC % Seg Neutrophils # Man Lymphocytes # (Manual) PT INR APTT D-Dimer ABG pH POC ABG pCO2 POC ABG pO2 ABG pO2 ABG HCO3 ABG Base Excess ABG Hemoglobin ABG Oxyhemoglobin ABG Potassium ABG Chloride ABG Glucose Oxyhemoglobin Carboxyhemoglobin Sodium Potassium Chloride Carbon Dioxide BUN Creatinine Glucose POC Glucose 223 H 250 H Calcium Phosphorus AST ALT Alkaline Phosphatase Lactate Dehydrogenase CK-MB (CK-2) CK-MB (CK-2) Rel Index Troponin T C-Reactive Protein NT-Pro-B Natriuret Pep Albumin HDL Cholesterol TSH Arterial Blood Glucose Arterial Blood Ionized Calcium Hepatitis C Antibody Crossmatch 07/26/20 07/26/20 07/27/20 17:40 23:26 05:20 WBC RBC Hgb Hct MCV RDW Plt Count Lymph % (Auto) [place] % (Auto) Lymph # (Auto) [place] # (Auto) Seg Neutrophils % Seg Neuts % (Manual) Lymphocytes % (Manual) Nucleated RBC % Seg Neutrophils # Man Lymphocytes # (Manual) PT INR APTT D-Dimer ABG pH 7.520 H POC ABG pCO2 POC ABG pO2 ABG pO2 64.2 L ABG HCO3 26.8 H ABG Base Excess 3.7 H ABG Hemoglobin 7.2 L ABG Oxyhemoglobin ABG Potassium ABG Chloride ABG Glucose Oxyhemoglobin 93.2 L Carboxyhemoglobin Sodium Potassium Chloride Carbon Dioxide BUN Creatinine Glucose POC Glucose 226 H 176 H Calcium Phosphorus AST ALT Alkaline Phosphatase Lactate Dehydrogenase CK-MB (CK-2) CK-MB (CK-2) Rel Index Troponin T C-Reactive Protein NT-Pro-B Natriuret Pep Albumin HDL Cholesterol TSH Arterial Blood Glucose Arterial Blood Ionized Calcium Hepatitis C Antibody Crossmatch 07/27/20 07/27/20 07/27/20 05:42 06:36 06:36 WBC RBC 2.23 L Hgb 7.0 L Hct 20.7 L MCV RDW 18.4 H Plt Count 56 L Lymph % (Auto) [place] % (Auto) Lymph # (Auto) [place] # (Auto) Seg Neutrophils % Seg Neuts % (Manual) 88.0 H Lymphocytes % (Manual) 11.0 L Nucleated RBC % 2.0 H Seg Neutrophils # Man 8.9 H Lymphocytes # (Manual) 1.1 L PT INR APTT D-Dimer ABG pH POC ABG pCO2 POC ABG pO2 ABG pO2 ABG HCO3 ABG Base Excess ABG Hemoglobin ABG Oxyhemoglobin ABG Potassium ABG Chloride ABG Glucose Oxyhemoglobin Carboxyhemoglobin Sodium Potassium Chloride Carbon Dioxide BUN 43 H Creatinine 4.4 H Glucose 162 H POC Glucose 142 H Calcium 8.2 L Phosphorus AST ALT Alkaline Phosphatase Lactate Dehydrogenase CK-MB (CK-2) CK-MB (CK-2) Rel Index Troponin T C-Reactive Protein NT-Pro-B Natriuret Pep Albumin HDL Cholesterol TSH Arterial Blood Glucose Arterial Blood Ionized Calcium Hepatitis C Antibody Crossmatch 07/27/20 07/27/20 07/27/20 11:42 17:37 23:15 WBC RBC Hgb Hct MCV RDW Plt Count Lymph % (Auto) [place] % (Auto) Lymph # (Auto) [place] # (Auto) Seg Neutrophils % Seg Neuts % (Manual) Lymphocytes % (Manual) Nucleated RBC % Seg Neutrophils # Man Lymphocytes # (Manual) PT INR APTT D-Dimer ABG pH POC ABG pCO2 POC ABG pO2 ABG pO2 ABG HCO3 ABG Base Excess ABG Hemoglobin ABG Oxyhemoglobin ABG Potassium ABG Chloride ABG Glucose Oxyhemoglobin Carboxyhemoglobin Sodium Potassium Chloride Carbon Dioxide BUN Creatinine Glucose POC Glucose 134 H 169 H 173 H Calcium Phosphorus AST ALT Alkaline Phosphatase Lactate Dehydrogenase CK-MB (CK-2) CK-MB (CK-2) Rel Index Troponin T C-Reactive Protein NT-Pro-B Natriuret Pep Albumin HDL Cholesterol TSH Arterial Blood Glucose Arterial Blood Ionized Calcium Hepatitis C Antibody Crossmatch 07/28/20 07/28/20 07/28/20 04:00 05:14 10:15 WBC RBC 2.13 L Hgb 6.8 L Hct 19.9 L* MCV RDW 18.4 H Plt Count 55 L Lymph % (Auto) [place] % (Auto) 9.1 H Lymph # (Auto) [place] # (Auto) 0.9 H Seg Neutrophils % 74.5 H Seg Neuts % (Manual) Lymphocytes % (Manual) Nucleated RBC % Seg Neutrophils # Man Lymphocytes # (Manual) PT INR APTT D-Dimer ABG pH POC ABG pCO2 POC ABG pO2 ABG pO2 ABG HCO3 ABG Base Excess ABG Hemoglobin ABG Oxyhemoglobin ABG Potassium ABG Chloride ABG Glucose Oxyhemoglobin Carboxyhemoglobin Sodium Potassium Chloride Carbon Dioxide BUN Creatinine Glucose POC Glucose 169 H Calcium Phosphorus AST ALT Alkaline Phosphatase Lactate Dehydrogenase CK-MB (CK-2) CK-MB (CK-2) Rel Index Troponin T C-Reactive Protein NT-Pro-B Natriuret Pep Albumin HDL Cholesterol TSH Arterial Blood Glucose Arterial Blood Ionized Calcium Hepatitis C Antibody Crossmatch See Detail 07/28/20 07/28/20 07/28/20 11:32 17:28 23:58 WBC RBC Hgb Hct MCV RDW Plt Count Lymph % (Auto) [place] % (Auto) Lymph # (Auto) [place] # (Auto) Seg Neutrophils % Seg Neuts % (Manual) Lymphocytes % (Manual) Nucleated RBC % Seg Neutrophils # Man Lymphocytes # (Manual) PT INR APTT D-Dimer ABG pH POC ABG pCO2 POC ABG pO2 ABG pO2 ABG HCO3 ABG Base Excess ABG Hemoglobin ABG Oxyhemoglobin ABG Potassium ABG Chloride ABG Glucose Oxyhemoglobin Carboxyhemoglobin Sodium Potassium Chloride Carbon Dioxide BUN Creatinine Glucose POC Glucose 185 H 208 H 227 H Calcium Phosphorus AST ALT Alkaline Phosphatase Lactate Dehydrogenase CK-MB (CK-2) CK-MB (CK-2) Rel Index Troponin T C-Reactive Protein NT-Pro-B Natriuret Pep Albumin HDL Cholesterol TSH Arterial Blood Glucose Arterial Blood Ionized Calcium Hepatitis C Antibody Crossmatch 07/29/20 07/29/20 07/29/20 05:37 12:04 17:11 WBC RBC Hgb Hct MCV RDW Plt Count Lymph % (Auto) [place] % (Auto) Lymph # (Auto) [place] # (Auto) Seg Neutrophils % Seg Neuts % (Manual) Lymphocytes % (Manual) Nucleated RBC % Seg Neutrophils # Man Lymphocytes # (Manual) PT INR APTT D-Dimer ABG pH POC ABG pCO2 POC ABG pO2 ABG pO2 ABG HCO3 ABG Base Excess ABG Hemoglobin ABG Oxyhemoglobin ABG Potassium ABG Chloride ABG Glucose Oxyhemoglobin Carboxyhemoglobin Sodium Potassium Chloride Carbon Dioxide BUN Creatinine Glucose POC Glucose 225 H 201 H 185 H Calcium Phosphorus AST ALT Alkaline Phosphatase Lactate Dehydrogenase CK-MB (CK-2) CK-MB (CK-2) Rel Index Troponin T C-Reactive Protein NT-Pro-B Natriuret Pep Albumin HDL Cholesterol TSH Arterial Blood Glucose Arterial Blood Ionized Calcium Hepatitis C Antibody Crossmatch 07/29/20 07/30/20 07/30/20 23:48 05:38 09:05 WBC RBC 2.49 L Hgb 7.7 L Hct 23.1 L MCV RDW 20.5 H Plt Count 54 L Lymph % (Auto) [place] % (Auto) Lymph # (Auto) [place] # (Auto) Seg Neutrophils % Seg Neuts % (Manual) Lymphocytes % (Manual) Nucleated RBC % Seg Neutrophils # Man Lymphocytes # (Manual) PT INR APTT D-Dimer ABG pH POC ABG pCO2 POC ABG pO2 ABG pO2 ABG HCO3 ABG Base Excess ABG Hemoglobin ABG Oxyhemoglobin ABG Potassium ABG Chloride ABG Glucose Oxyhemoglobin Carboxyhemoglobin Sodium Potassium Chloride Carbon Dioxide BUN Creatinine Glucose POC Glucose 209 H 205 H Calcium Phosphorus AST ALT Alkaline Phosphatase Lactate Dehydrogenase CK-MB (CK-2) CK-MB (CK-2) Rel Index Troponin T C-Reactive Protein NT-Pro-B Natriuret Pep Albumin HDL Cholesterol TSH Arterial Blood Glucose Arterial Blood Ionized Calcium Hepatitis C Antibody Crossmatch 07/30/20 07/30/20 07/30/20 09:05 11:42 17:46 WBC RBC Hgb Hct MCV RDW Plt Count Lymph % (Auto) [place] % (Auto) Lymph # (Auto) [place] # (Auto) Seg Neutrophils % Seg Neuts % (Manual) Lymphocytes % (Manual) Nucleated RBC % Seg Neutrophils # Man Lymphocytes # (Manual) PT INR APTT D-Dimer ABG pH POC ABG pCO2 POC ABG pO2 ABG pO2 ABG HCO3 ABG Base Excess ABG Hemoglobin ABG Oxyhemoglobin ABG Potassium ABG Chloride ABG Glucose Oxyhemoglobin Carboxyhemoglobin Sodium 135 L Potassium Chloride Carbon Dioxide BUN 52 H Creatinine 4.1 H Glucose 236 H POC Glucose 224 H 195 H Calcium Phosphorus AST ALT Alkaline Phosphatase Lactate Dehydrogenase CK-MB (CK-2) CK-MB (CK-2) Rel Index Troponin T C-Reactive Protein NT-Pro-B Natriuret Pep Albumin HDL Cholesterol TSH Arterial Blood Glucose Arterial Blood Ionized Calcium Hepatitis C Antibody Crossmatch 07/30/20 07/30/20 07/31/20 21:09 23:45 05:10 WBC RBC 2.46 L Hgb 7.6 L Hct 22.6 L MCV RDW 19.4 H Plt Count 77 L Lymph % (Auto) [place] % (Auto) Lymph # (Auto) [place] # (Auto) Seg Neutrophils % Seg Neuts % (Manual) Lymphocytes % (Manual) Nucleated RBC % Seg Neutrophils # Man Lymphocytes # (Manual) PT INR APTT D-Dimer ABG pH POC ABG pCO2 POC ABG pO2 ABG pO2 ABG HCO3 ABG Base Excess ABG Hemoglobin ABG Oxyhemoglobin ABG Potassium ABG Chloride ABG Glucose Oxyhemoglobin Carboxyhemoglobin Sodium Potassium Chloride Carbon Dioxide BUN Creatinine Glucose POC Glucose 153 H 185 H Calcium Phosphorus AST ALT Alkaline Phosphatase Lactate Dehydrogenase CK-MB (CK-2) CK-MB (CK-2) Rel Index Troponin T C-Reactive Protein NT-Pro-B Natriuret Pep Albumin HDL Cholesterol TSH Arterial Blood Glucose Arterial Blood Ionized Calcium Hepatitis C Antibody Crossmatch 07/31/20 07/31/20 07/31/20 05:17 11:48 17:20 WBC RBC Hgb Hct MCV RDW Plt Count Lymph % (Auto) [place] % (Auto) Lymph # (Auto) [place] # (Auto) Seg Neutrophils % Seg Neuts % (Manual) Lymphocytes % (Manual) Nucleated RBC % Seg Neutrophils # Man Lymphocytes # (Manual) PT INR APTT D-Dimer ABG pH POC ABG pCO2 POC ABG pO2 ABG pO2 ABG HCO3 ABG Base Excess ABG Hemoglobin ABG Oxyhemoglobin ABG Potassium ABG Chloride ABG Glucose Oxyhemoglobin Carboxyhemoglobin Sodium Potassium Chloride Carbon Dioxide BUN Creatinine Glucose POC Glucose 163 H 144 H 133 H Calcium Phosphorus AST ALT Alkaline Phosphatase Lactate Dehydrogenase CK-MB (CK-2) CK-MB (CK-2) Rel Index Troponin T C-Reactive Protein NT-Pro-B Natriuret Pep Albumin HDL Cholesterol TSH Arterial Blood Glucose Arterial Blood Ionized Calcium Hepatitis C Antibody Crossmatch 07/31/20 08/01/20 08/01/20 23:04 05:22 05:22 WBC RBC 2.26 L Hgb 7.0 L Hct 21.0 L MCV RDW 19.6 H Plt Count 85 L Lymph % (Auto) [place] % (Auto) Lymph # (Auto) [place] # (Auto) Seg Neutrophils % Seg Neuts % (Manual) Lymphocytes % (Manual) Nucleated RBC % Seg Neutrophils # Man Lymphocytes # (Manual) PT INR APTT D-Dimer ABG pH POC ABG pCO2 POC ABG pO2 ABG pO2 ABG HCO3 ABG Base Excess ABG Hemoglobin ABG Oxyhemoglobin ABG Potassium ABG Chloride ABG Glucose Oxyhemoglobin Carboxyhemoglobin Sodium 133 L Potassium Chloride Carbon Dioxide BUN 57 H Creatinine 4.4 H Glucose 166 H POC Glucose 140 H Calcium 7.8 L Phosphorus 5.10 H AST ALT Alkaline Phosphatase Lactate Dehydrogenase CK-MB (CK-2) CK-MB (CK-2) Rel Index Troponin T C-Reactive Protein NT-Pro-B Natriuret Pep Albumin HDL Cholesterol TSH Arterial Blood Glucose Arterial Blood Ionized Calcium Hepatitis C Antibody Crossmatch 08/01/20 08/01/20 08/01/20 05:49 11:18 17:33 WBC RBC Hgb Hct MCV RDW Plt Count Lymph % (Auto) [place] % (Auto) Lymph # (Auto) [place] # (Auto) Seg Neutrophils % Seg Neuts % (Manual) Lymphocytes % (Manual) Nucleated RBC % Seg Neutrophils # Man Lymphocytes # (Manual) PT INR APTT D-Dimer ABG pH POC ABG pCO2 POC ABG pO2 ABG pO2 ABG HCO3 ABG Base Excess ABG Hemoglobin ABG Oxyhemoglobin ABG Potassium ABG Chloride ABG Glucose Oxyhemoglobin Carboxyhemoglobin Sodium Potassium Chloride Carbon Dioxide BUN Creatinine Glucose POC Glucose 154 H 128 H 133 H Calcium Phosphorus AST ALT Alkaline Phosphatase Lactate Dehydrogenase CK-MB (CK-2) CK-MB (CK-2) Rel Index Troponin T C-Reactive Protein NT-Pro-B Natriuret Pep Albumin HDL Cholesterol TSH Arterial Blood Glucose Arterial Blood Ionized Calcium Hepatitis C Antibody Crossmatch 08/01/20 08/02/20 08/02/20 21:32 05:25 05:29 WBC RBC 2.14 L Hgb 6.7 L Hct 20.0 L MCV RDW 19.4 H Plt Count 104 L Lymph % (Auto) [place] % (Auto) Lymph # (Auto) [place] # (Auto) Seg Neutrophils % Seg Neuts % (Manual) Lymphocytes % (Manual) Nucleated RBC % Seg Neutrophils # Man Lymphocytes # (Manual) PT INR APTT D-Dimer ABG pH POC ABG pCO2 POC ABG pO2 ABG pO2 ABG HCO3 ABG Base Excess ABG Hemoglobin ABG Oxyhemoglobin ABG Potassium ABG Chloride ABG Glucose Oxyhemoglobin Carboxyhemoglobin Sodium Potassium Chloride Carbon Dioxide BUN Creatinine Glucose POC Glucose 139 H 145 H Calcium Phosphorus AST ALT Alkaline Phosphatase Lactate Dehydrogenase CK-MB (CK-2) CK-MB (CK-2) Rel Index Troponin T C-Reactive Protein NT-Pro-B Natriuret Pep Albumin HDL Cholesterol TSH Arterial Blood Glucose Arterial Blood Ionized Calcium Hepatitis C Antibody Crossmatch 08/02/20 08/03/20 08/03/20 18:09 04:00 04:00 WBC 11.6 H RBC 2.20 L Hgb 6.7 L Hct 20.4 L MCV RDW 18.8 H Plt Count 127 L Lymph % (Auto) [place] % (Auto) Lymph # (Auto) [place] # (Auto) Seg Neutrophils % Seg Neuts % (Manual) Lymphocytes % (Manual) Nucleated RBC % Seg Neutrophils # Man Lymphocytes # (Manual) PT INR APTT D-Dimer ABG pH POC ABG pCO2 POC ABG pO2 ABG pO2 ABG HCO3 ABG Base Excess ABG Hemoglobin ABG Oxyhemoglobin ABG Potassium ABG Chloride ABG Glucose Oxyhemoglobin Carboxyhemoglobin Sodium Potassium Chloride Carbon Dioxide BUN Creatinine Glucose POC Glucose 141 H Calcium Phosphorus AST ALT Alkaline Phosphatase Lactate Dehydrogenase CK-MB (CK-2) CK-MB (CK-2) Rel Index Troponin T C-Reactive Protein NT-Pro-B Natriuret Pep Albumin HDL Cholesterol TSH Arterial Blood Glucose Arterial Blood Ionized Calcium Hepatitis C Antibody Crossmatch See Detail 08/03/20 08/03/20 08/03/20 04:00 05:33 09:30 WBC RBC Hgb 6.6 L Hct 19.6 L* MCV RDW Plt Count Lymph % (Auto) [place] % (Auto) Lymph # (Auto) [place] # (Auto) Seg Neutrophils % Seg Neuts % (Manual) Lymphocytes % (Manual) Nucleated RBC % Seg Neutrophils # Man Lymphocytes # (Manual) PT INR APTT D-Dimer ABG pH POC ABG pCO2 POC ABG pO2 ABG pO2 ABG HCO3 ABG Base Excess ABG Hemoglobin ABG Oxyhemoglobin ABG Potassium ABG Chloride ABG Glucose Oxyhemoglobin Carboxyhemoglobin Sodium Potassium Chloride Carbon Dioxide BUN 33 H Creatinine 2.7 H Glucose 101 H POC Glucose 117 H Calcium 8.0 L Phosphorus AST ALT Alkaline Phosphatase Lactate Dehydrogenase CK-MB (CK-2) CK-MB (CK-2) Rel Index Troponin T C-Reactive Protein NT-Pro-B Natriuret Pep Albumin HDL Cholesterol TSH Arterial Blood Glucose Arterial Blood Ionized Calcium Hepatitis C Antibody Crossmatch 08/03/20 08/03/20 08/03/20 13:07 17:10 21:18 WBC RBC Hgb Hct MCV RDW Plt Count Lymph % (Auto) [place] % (Auto) Lymph # (Auto) [place] # (Auto) Seg Neutrophils % Seg Neuts % (Manual) Lymphocytes % (Manual) Nucleated RBC % Seg Neutrophils # Man Lymphocytes # (Manual) PT INR APTT D-Dimer ABG pH POC ABG pCO2 POC ABG pO2 ABG pO2 ABG HCO3 ABG Base Excess ABG Hemoglobin ABG Oxyhemoglobin ABG Potassium ABG Chloride ABG Glucose Oxyhemoglobin Carboxyhemoglobin Sodium Potassium Chloride Carbon Dioxide BUN Creatinine Glucose POC Glucose 121 H 139 H 134 H Calcium Phosphorus AST ALT Alkaline Phosphatase Lactate Dehydrogenase CK-MB (CK-2) CK-MB (CK-2) Rel Index Troponin T C-Reactive Protein NT-Pro-B Natriuret Pep Albumin HDL Cholesterol TSH Arterial Blood Glucose Arterial Blood Ionized Calcium Hepatitis C Antibody Crossmatch 08/03/20 08/04/20 08/04/20 23:31 05:21 05:24 WBC 12.8 H RBC 2.59 L Hgb 8.0 L Hct 24.1 L MCV RDW 17.4 H Plt Count Lymph % (Auto) [place] % (Auto) Lymph # (Auto) [place] # (Auto) Seg Neutrophils % Seg Neuts % (Manual) Lymphocytes % (Manual) Nucleated RBC % Seg Neutrophils # Man Lymphocytes # (Manual) PT INR APTT D-Dimer ABG pH POC ABG pCO2 POC ABG pO2 ABG pO2 ABG HCO3 ABG Base Excess ABG Hemoglobin ABG Oxyhemoglobin ABG Potassium ABG Chloride ABG Glucose Oxyhemoglobin Carboxyhemoglobin Sodium Potassium Chloride Carbon Dioxide BUN Creatinine Glucose POC Glucose 124 H 128 H Calcium Phosphorus AST ALT Alkaline Phosphatase Lactate Dehydrogenase CK-MB (CK-2) CK-MB (CK-2) Rel Index Troponin T C-Reactive Protein NT-Pro-B Natriuret Pep Albumin HDL Cholesterol TSH Arterial Blood Glucose Arterial Blood Ionized Calcium Hepatitis C Antibody Crossmatch 08/04/20 08/04/20 08/05/20 12:31 23:22 05:35 WBC RBC 2.27 L Hgb 7.1 L Hct 21.3 L MCV RDW 17.1 H Plt Count Lymph % (Auto) [place] % (Auto) Lymph # (Auto) [place] # (Auto) Seg Neutrophils % 76.3 H Seg Neuts % (Manual) Lymphocytes % (Manual) Nucleated RBC % Seg Neutrophils # Man Lymphocytes # (Manual) PT INR APTT D-Dimer ABG pH POC ABG pCO2 POC ABG pO2 ABG pO2 ABG HCO3 ABG Base Excess ABG Hemoglobin ABG Oxyhemoglobin ABG Potassium ABG Chloride ABG Glucose Oxyhemoglobin Carboxyhemoglobin Sodium Potassium Chloride Carbon Dioxide BUN Creatinine Glucose POC Glucose 196 H 162 H Calcium Phosphorus AST ALT Alkaline Phosphatase Lactate Dehydrogenase CK-MB (CK-2) CK-MB (CK-2) Rel Index Troponin T C-Reactive Protein NT-Pro-B Natriuret Pep Albumin HDL Cholesterol TSH Arterial Blood Glucose Arterial Blood Ionized Calcium Hepatitis C Antibody Crossmatch 08/05/20 08/05/20 08/05/20 05:35 06:06 12:04 WBC RBC Hgb Hct MCV RDW Plt Count Lymph % (Auto) [place] % (Auto) Lymph # (Auto) [place] # (Auto) Seg Neutrophils % Seg Neuts % (Manual) Lymphocytes % (Manual) Nucleated RBC % Seg Neutrophils # Man Lymphocytes # (Manual) PT INR APTT D-Dimer ABG pH POC ABG pCO2 POC ABG pO2 ABG pO2 ABG HCO3 ABG Base Excess ABG Hemoglobin ABG Oxyhemoglobin ABG Potassium ABG Chloride ABG Glucose Oxyhemoglobin Carboxyhemoglobin Sodium Potassium Chloride Carbon Dioxide 31 H BUN 41 H Creatinine 3.2 H Glucose 178 H POC Glucose 166 H 173 H Calcium 7.9 L Phosphorus AST ALT Alkaline Phosphatase Lactate Dehydrogenase CK-MB (CK-2) CK-MB (CK-2) Rel Index Troponin T C-Reactive Protein NT-Pro-B Natriuret Pep Albumin HDL Cholesterol TSH Arterial Blood Glucose Arterial Blood Ionized Calcium Hepatitis C Antibody Crossmatch 08/05/20 08/05/20 08/06/20 17:42 23:31 05:53 WBC RBC 2.10 L Hgb 6.6 L Hct 20.0 L MCV RDW 17.0 H Plt Count Lymph % (Auto) [place] % (Auto) 7.5 H Lymph # (Auto) [place] # (Auto) Seg Neutrophils % 72.7 H Seg Neuts % (Manual) Lymphocytes % (Manual) Nucleated RBC % Seg Neutrophils # Man Lymphocytes # (Manual) PT INR APTT D-Dimer ABG pH POC ABG pCO2 POC ABG pO2 ABG pO2 ABG HCO3 ABG Base Excess ABG Hemoglobin ABG Oxyhemoglobin ABG Potassium ABG Chloride ABG Glucose Oxyhemoglobin Carboxyhemoglobin Sodium Potassium Chloride Carbon Dioxide BUN Creatinine Glucose POC Glucose 189 H 173 H Calcium Phosphorus AST ALT Alkaline Phosphatase Lactate Dehydrogenase CK-MB (CK-2) CK-MB (CK-2) Rel Index Troponin T C-Reactive Protein NT-Pro-B Natriuret Pep Albumin HDL Cholesterol TSH Arterial Blood Glucose Arterial Blood Ionized Calcium Hepatitis C Antibody Crossmatch 08/06/20 08/06/20 08/06/20 05:53 05:54 09:00 WBC RBC Hgb Hct MCV RDW Plt Count Lymph % (Auto) [place] % (Auto) Lymph # (Auto) [place] # (Auto) Seg Neutrophils % Seg Neuts % (Manual) Lymphocytes % (Manual) Nucleated RBC % Seg Neutrophils # Man Lymphocytes # (Manual) PT INR APTT D-Dimer ABG pH POC ABG pCO2 POC ABG pO2 ABG pO2 ABG HCO3 ABG Base Excess ABG Hemoglobin ABG Oxyhemoglobin ABG Potassium ABG Chloride ABG Glucose Oxyhemoglobin Carboxyhemoglobin Sodium Potassium Chloride Carbon Dioxide 31 H BUN 63 H Creatinine 4.3 H Glucose 138 H POC Glucose 126 H Calcium 8.3 L Phosphorus AST ALT Alkaline Phosphatase Lactate Dehydrogenase CK-MB (CK-2) CK-MB (CK-2) Rel Index Troponin T C-Reactive Protein NT-Pro-B Natriuret Pep Albumin HDL Cholesterol TSH Arterial Blood Glucose Arterial Blood Ionized Calcium Hepatitis C Antibody Crossmatch See Detail Allied health notes reviewed: nursing
--- NOTE | 2020-08-06 11:56 | Magnetic Resonance Report ---
MRI BRAIN WITHOUT CONTRAST INDICATION / CLINICAL INFORMATION: Altered mental status, unresponsive. TECHNIQUE: Multiplanar, multisequence MR images of the brain were obtained. COMPARISON: Multiple prior head CTs, most recently on 07/30/2020 FINDINGS: BRAIN / INTRACRANIAL CONTENTS: There is extensive restricted diffusion involving the cerebral white m atter diffusely, medial temporal lobe cortices, bilateral dentate nuclei, the midbrain, and the corpu s callosum. There is associated T2 hyperintensity and T1 hypointensity consistent with subacute ische enedina injury. 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 There is no hemor rhage, hydrocephalus, or adverse mass effect. CRANIOCERVICAL JUNCTION: No significant abnormality. VASCULAR FLOW-VOIDS: No significant abnormality. ORBITS: No significant abnormality of visualized orbits. SINUSES / MASTOIDS: No significant abnormality of visualized sinuses and mastoid air cells. ADDITIONAL FINDINGS: None. IMPRESSION: 1. Extensive confluent restricted diffusion in the cerebral white matter, corpus callosum, brainstem, and cerebellar dentate nuclei in keeping with severe global hypoxic ischemic event/injury. 2. No hemorrhage or adverse mass effect. Signer Name: Paulo Esteban MD Signed: 08/06/2020 11:51 AM Workstation Name: [id number]
--- NOTE | 2020-08-06 18:06 | Progress Note ---
<JUVENTINO MOYATori - Last Filed: 08/06/20 18:06> Assessment and Plan Assessment and plan: -08/02 MRI brain shows extensive confluent restricted diffusion in the cerebral white matter, corpus callosum, brainstem and cerebellar dentate nuclei keeping with severe global hypoxic ischemic event/injury with no hemorrhage or adverse mass-effect. -CCM/nephrology/neurology/infectious disease consulted, appreciate recommendations -HD per nephrology -VAP bundle -Trend CBC and BMP -Tube feeding/nutrition supplements -SSI, long-acting insulin -Keppra DVT prophylaxis: thrombocytopenia, no anticoagulation. Continue SCDs GI prophylaxis: PPI Dispo: ICU The high probability of a clinically significant, sudden or life threatening deterioration of the [multi] system(s) required my full and direct attention, intervention and personal management. The aggregate critical care time was [35] minutes. This time is in addition to time spent performing reported procedures but includes the following: [x] Data Review and interpretation [x] Patient assessment and monitoring of vital signs [x] Documentation [x] Medication orders and management History Interval history: This is 65-year-old male with diabetes mellitus, chronic kidney disease, CVA with residual weakness admitted to the hospitalist service with altered level consciousness and unresponsiveness. Patient started to be in sepsis secondary to MSSA bacteremia long-term antibiotics and his renal function progressively deteriorated. Patient initially refused outpatient dialysis then went into respiratory arrest requiring intubation and mechanical ventilation and was transferred to ICU. Patient family gave consent for hemodialysis and the patient remains intubated in the ICU. CCM, nephrology, cardiology and vascular surgery were consulted for care. Sepsis Acute on chronic kidney disease stage III Acute hypoxic respiratory failure NSTEMI type II Hyponatremia Anemia of chronic disease Acute toxic metabolic encephalopathy Severe protein calorie malnutrition/hypoalbuminemia Thrombocytopenia MSSA sepsis Type 2 diabetes mellitus Acute on chronic systolic congestive heart failure, EF 30 to 45% Seizure disorder CVA 07/19/2020; unable to pass Ayala catheter, consulted urology, continue supportive care, COVID-19 test negative 07/20/2020; urology evaluation recommendation noted and appreciated. Ayala catheter was inserted by urology, draining well, MSSA bacteremia on long-term antibiotics 07/21/2020; patient is lethargic, CT head without contrast, no acute abnormality, Patient is afebrile 07/22/2020; patient had acute respiratory failure this morning. JEFFERY IBARRA was called, patient was intubated on ventilatory support, pulmonary critical consulted, family patients aunt informed 07/23/2020; patient has severe bradycardia this morning, received atropine, Cardiology following. Beta-blockers held, electrolytes corrected. Patient's heart rate improved to 50s and 60s Cardiology following. Nephrology planning hemodialysis trying to get consent from family 07/24/2020; patient received hemodialysis yesterday. Remains intubated on ventilatory support. Bradycardia significantly improved heart rate in 60s. Com pleted 6 weeks of Unasyn for MSSA sepsis today 07/25/2020; patient remains on ventilatory support. Receiving HD per schedule dual. Wean as tolerated and extubate 07/26/2020; patient remains on ventilatory support, wean as tolerated and extubate. Initiated hemodialysis, HD per schedule, new set of blood culture sent 07/30: No acute events reported overnight. Patient remains unresponsive without sedation in the CT head was obtained which showed interval development of extensive hypoattenuation in the cerebral white matter, corpus callosum, globus thalami and probable indented nuclei finding likely test of global hypoxic ischemic injury with no acute hemorrhage or mass-effect. We consulted neurology and ordered an EEG for further work-up. no acute events reported overnight. He remains on MV. 07/31: PSV trials, HD per renal, bear hugger in place is unable to obtain temperature. Neurology consult and EEG pending. No acute events reported overnight. No acute events reported overnight. 08/01: This morning patient still has his giuseppe hugger in place, remains hyponatremic and hypokalemic and hypophosphatemic. Patient's H/H is 7. Patient remains on CMV 450-12-6/0.25 at the time of examination. Patient's CT head showed hypoxia/ischemic brain injury however his EEG was interpreted as normal awake and sleep pattern. Patient was given a trial dose of Narcan for CCM without improvement. Will order repeat EEG per neurology. No acute events reported overnight. 08/02: Patient had a repeat EEG which showed depressed activity and an MRI brain is pending. Patient's H/H is 6.7/20 and we will transfuse PRBC with HD to avoid volume overload. At the time of my examination patient was on CMV 450/12/6/0.25. Patient was given 1 mg Ativan for relaxation to better assess source of bloody secretions in mouth. 08/03: MRI of brain pending, hemoglobin remained at 6.7 and patient will be tr ansfused 1 unit PRBC today with hemodialysis we will obtain a posttransfusion H/H. At the time my examination patient remains on CMV 450/12/6/0.40 with no improvement to neuro status. 08/04/2020; MRI of the brain was done but reading is pending. He was transfused a unit of blood and hemoglobin this morning was 8. Patient has low-grade fever. Neurology is following. Prognosis very poor 08/05/2020;MRI of the brain was done but reading is pending. He was transfused a unit of blood and hemoglobin this morning was 8. Patient has low-grade fever. Neurology is following. Prognosis very poor 08/06: Brain was read which is consistent with anoxic brain injury, CCM Conversation with the patient's family regarding goals of care. Patient remains on CMV 450/12/6/0.40 and received 1 unit of PRBC with HD today as H/H was 6.6/20. Hospitalist Physical - Constitutional Vitals: Temp Pulse Resp BP Pulse Ox 97.4 F L 86 16 108/59 100 08/06/20 13:00 08/06/20 16:00 08/06/20 16:00 08/06/20 16:00 08/06/20 16:00 General appearance: Present: no acute distress, well-nourished - EENT Eyes: Present: PERRL ENT: poor dentition - Neck Neck: Absent: masses or JVD - Respiratory Respiratory effort: normal Respiratory: bilateral: diminished - Cardiovascular Rhythm: regular Heart Sounds: Present: S1 & S2. Absent: systolic murmur, diastolic murmur - Extremities Extremities: no ischemia, pulses intact, pulses symmetrical, normal temperature, normal color Extremity abnormal: edema Peripheral Pulses: within normal limits - Abdominal General gastrointestinal: soft, non-tender, non-distended, normal bowel sounds - Integumentary Integumentary: Present: warm, dry - Psychiatric Psychiatric: other (Decorticate position with deep painful stimuli) - Neurologic Neurologic: other (Decorticate positioning with painful stimuli) HEART Score - HEART Score Troponin: Troponin T 0.047 ng/mL (0.00-0.029) H 07/22/20 10:30 Results - Labs CBC & Chem 7: 08/06/20 05:53 08/06/20 05:53 Labs: Laboratory Last Values WBC 9.2 K/mm3 (4.5-11.0) 08/06/20 05:53 RBC 2.10 M/mm3 (3.65-5.03) L 08/06/20 05:53 Hgb 6.6 gm/dl (11.8-15.2) L 08/06/20 05:53 Hct 20.0 % (35.5-45.6) L 08/06/20 05:53 MCV 93 fl (84-94) 08/06/20 05:53 MCH 32 pg (28-32) 08/06/20 05:53 MCHC 34 % (32-34) 08/06/20 05:53 RDW 17.0 % (13.2-15.2) H 08/06/20 05:53 Plt Count 172 K/mm3 (140-440) 08/06/20 05:53 Lymph % (Auto) 17.8 % (13.4-35.0) 08/06/20 05:53 Roberts % (Auto) 7.5 % (0.0-7.3) H 08/06/20 05:53 Eos % (Auto) 1.3 % (0.0-4.3) 08/06/20 05:53 Baso % (Auto) 0.7 % (0.0-1.8) 08/06/20 05:53 Lymph # (Auto) 1.6 K/mm3 (1.2-5.4) 08/06/20 05:53 Roberts # (Auto) 0.7 K/mm3 (0.0-0.8) 08/06/20 05:53 Eos # (Auto) 0.1 K/mm3 (0.0-0.4) 08/06/20 05:53 Baso # (Auto) 0.1 K/mm3 (0.0-0.1) 08/06/20 05:53 Add Manual Diff Complete 07/27/20 06:36 Total Counted 100 07/27/20 06:36 Seg Neutrophils % 72.7 % (40.0-70.0) H 08/06/20 05:53 Seg Neuts % (Manual) 88.0 % (40.0-70.0) H 07/27/20 06:36 Lymphocytes % (Manual) 11.0 % (13.4-35.0) L 07/27/20 06:36 Monocytes % (Manual) 1.0 % (0.0-7.3) 07/27/20 06:36 Nucleated RBC % 2.0 % (0.0-0.9) H 07/27/20 06:36 Seg Neutrophils # 6.7 K/mm3 (1.8-7.7) 08/06/20 05:53 Seg Neutrophils # Man 8.9 K/mm3 (1.8-7.7) H 07/27/20 06:36 Band Neutrophils # 0.0 K/mm3 07/27/20 06:36 Lymphocytes # (Manual) 1.1 K/mm3 (1.2-5.4) L 07/27/20 06:36 Abs React Lymphs (Man) 0.0 K/mm3 07/27/20 06:36 Monocytes # (Manual) 0.1 K/mm3 (0.0-0.8) 07/27/20 06:36 Eosinophils # (Manual) 0.0 K/mm3 (0.0-0.4) 07/27/20 06:36 Basophils # (Manual) 0.0 K/mm3 (0.0-0.1) 07/27/20 06:36 Metamyelocytes # 0.0 K/mm3 07/27/20 06:36 Myelocytes # 0.0 K/mm3 07/27/20 06:36 Promyelocytes # 0.0 K/mm3 07/27/20 06:36 Blast Cells # 0.0 K/mm3 07/27/20 06:36 WBC Morphology Not Reportable 07/27/20 06:36 Hypersegmented Neuts Not Reportable 07/27/20 06:36 Hyposegmented Neuts Not Reportable 07/27/20 06:36 Hypogranular Neuts Not Reportable 07/27/20 06:36 Smudge Cells Not Reportable 07/27/20 06:36 Toxic Granulation Not Reportable 07/27/20 06:36 Toxic Vacuolation Not Reportable 07/27/20 06:36 Dohle Bodies Not Reportable 07/27/20 06:36 Pelger-Huet Anomaly Not Reportable 07/27/20 06:36 Clint Rods Not Reportable 07/27/20 06:36 Platelet Estimate Consistent w auto 07/27/20 06:36 Clumped Platelets Not Reportable 07/27/20 06:36 Plt Clumps, EDTA Not Reportable 07/27/20 06:36 Large Platelets Not Reportable 07/27/20 06:36 Giant Platelets Not Reportable 07/27/20 06:36 Platelet Satelliting Not Reportable 07/27/20 06:36 Plt Morphology Comment Not Reportable 07/27/20 06:36 RBC Morphology Not Reportable 07/27/20 06:36 Dimorphic RBCs Not Reportable 07/27/20 06:36 Polychromasia Not Reportable 07/27/20 06:36 Hypochromasia Not Reportable 07/27/20 06:36 Poikilocytosis Not Reportable 07/27/20 06:36 Anisocytosis Few 07/27/20 06:36 Microcytosis Not Reportable 07/27/20 06:36 Macrocytosis Not Reportable 07/27/20 06:36 Spherocytes Not Reportable 07/27/20 06:36 Pappenheimer Bodies Not Reportable 07/27/20 06:36 Sickle Cells Not Reportable 07/27/20 06:36 Target Cells Not Reportable 07/27/20 06:36 Tear Drop Cells Not Reportable 07/27/20 06:36 Ovalocytes Not Reportable 07/27/20 06:36 Helmet Cells Not Reportable 07/27/20 06:36 [place] Bodies Not Reportable 07/27/20 06:36 [place] Rings Not Reportable 07/27/20 06:36 Sae Cells Not Reportable 07/27/20 06:36 Bite Cells Not Reportable 07/27/20 06:36 Crenated Cell Not Reportable 07/27/20 06:36 Elliptocytes Not Reportable 07/27/20 06:36 Acanthocytes (Spur) Not Reportable 07/27/20 06:36 Rouleaux Not Reportable 07/27/20 06:36 Hemoglobin C Crystals Not Reportable 07/27/20 06:36 Schistocytes Rare 07/27/20 06:36 Malaria parasites Not Reportable 07/27/20 06:36 Carl Bodies Not Reportable 07/27/20 06:36 Hem Pathologist Commnt No 07/27/20 06:36 PT 15.9 Sec. (12.2-14.9) H 07/22/20 10:30 INR 1.27 (0.87-1.13) H 07/22/20 10:30 APTT 38.3 Sec. (24.2-36.6) H 07/22/20 10:30 D-Dimer 1036.46 ng/mlDDU (0-234) H 07/18/20 08:56 Heparin Anti-Xa, Unfract Negative (Negative) 07/23/20 08:54 ABG pH 7.520 pH Units (7.350-7.450) H 07/27/20 05:20 POC ABG pCO2 32.7 mmHg (32.0-48.0) 07/25/20 03:57 ABG pCO2 33.5 mm Hg 07/27/20 05:20 POC ABG pO2 62.7 mmHg (83-108) L 07/25/20 03:57 ABG pO2 64.2 mm Hg (80.0-90.0) L 07/27/20 05:20 POC ABG HCO3 24.8 07/25/20 03:57 ABG HCO3 26.8 mmol/L (20.0-26.0) H 07/27/20 05:20 ABG O2 Saturation 95.8 % (95.0-99.0) 07/27/20 05:20 ABG O2 Content 9.5 (0.0-44) 07/27/20 05:20 POC ABG Base Excess 1.7 07/25/20 03:57 ABG Base Excess 3.7 mmol/L (-2.0-3.0) H 07/27/20 05:20 ABG Hemoglobin 7.2 gm/dl (14.0-18.0) L 07/27/20 05:20 ABG Oxyhemoglobin 90.1 (94-98) L 07/25/20 03:57 ABG Carboxyhemoglobin 2.3 % (0.0-5.0) 07/27/20 05:20 ABG Methemoglobin 0.5 % (0.0-1.5) 07/27/20 05:20 ABG Sodium 138.7 mmol/L (136.0-145.0) 07/25/20 03:57 ABG Potassium 4.0 mmol/L (3.40-4.50) 07/25/20 03:57 ABG Chloride 110.0 mmol/L (98-107) H 07/25/20 03:57 ABG Glucose 157 mg/dL (65-95) H 07/25/20 03:57 Oxyhemoglobin 93.2 % (95.0-99.0) L 07/27/20 05:20 Carboxyhemoglobin 1.1 (0.5-1.5) 07/25/20 03:57 FiO2 25 % 07/27/20 05:20 FiO2 % 40 07/25/20 03:57 Sodium 138 mmol/L (137-145) 08/06/20 05:53 Potassium 4.0 mmol/L (3.6-5.0) 08/06/20 05:53 Chloride 98.1 mmol/L (98-107) 08/06/20 05:53 Carbon Dioxide 31 mmol/L (22-30) H 08/06/20 05:53 Anion Gap 13 mmol/L 08/06/20 05:53 BUN 63 mg/dL (9-20) H 08/06/20 05:53 Creatinine 4.3 mg/dL (0.8-1.3) H 08/06/20 05:53 Estimated GFR 17 ml/min 08/06/20 05:53 BUN/Creatinine Ratio 15 % 08/06/20 05:53 Glucose 138 mg/dL (75-100) H 08/06/20 05:53 POC Glucose 177 mg/dL (70-105) H 08/06/20 11:52 Lactic Acid 0.80 mmol/L (0.7-2.0) 07/18/20 08:56 Calcium 8.3 mg/dL (8.4-10.2) L 08/06/20 05:53 Phosphorus 3.40 mg/dL (2.5-4.5) 08/03/20 04:00 Magnesium 1.80 mg/dL (1.7-2.3) 08/03/20 04:00 Ferritin 198.6 ng/mL (30.0-300.0) 07/18/20 10:36 Total Bilirubin 0.30 mg/dL (0.1-1.2) 07/22/20 10:30 Direct Bilirubin 0.2 mg/dL (0-0.2) 07/19/20 06:00 Indirect Bilirubin 0.2 mg/dL 07/19/20 06:00 AST 66 units/L (5-40) H 07/22/20 10:30 ALT < 5 units/L (7-56) L 07/22/20 10:30 Alkaline Phosphatase 604 units/L (35-129) H 07/22/20 10:30 Ammonia 41.0 umol/L (25-60) 07/18/20 08:56 Lactate Dehydrogenase 212 units/L (91-180) H 07/18/20 10:36 Total Creatine Kinase 67 units/L (55-170) 07/22/20 10:30 CK-MB (CK-2) 10.9 ng/mL (0.0-4.0) H 07/22/20 10:30 CK-MB (CK-2) Rel Index 16.2 (0-4) H 07/22/20 10:30 Troponin T 0.047 ng/mL (0.00-0.029) H 07/22/20 10:30 C-Reactive Protein 2.10 mg/dL (0.00-1.30) H 07/18/20 10:36 NT-Pro-B Natriuret Pep 4777 pg/mL (0-900) H 07/18/20 08:56 Total Protein 6.4 g/dL (6.3-8.2) 07/22/20 10:30 Albumin 2.1 g/dL (3.9-5) L 07/22/20 10:30 Albumin/Globulin Ratio 0.5 % 07/22/20 10:30 Triglycerides 65 mg/dL (2-149) 07/18/20 08:56 Cholesterol 157 mg/dL (50-199) 07/18/20 08:56 LDL Cholesterol Direct 95 mg/dL (50-130) 07/18/20 08:56 HDL Cholesterol 67 mg/dL (40-59) H 07/18/20 08:56 Cholesterol/HDL Ratio 2.34 % 07/18/20 08:56 Procalcitonin 0.10 ng/mL (<0.15) 07/18/20 10:36 TSH 5.520 mlU/mL (0.270-4.200) H 07/18/20 08:56 Free T4 0.84 ng/dL (0.76-1.46) 07/18/20 08:56 Arterial Blood Glucose 157 mg/dL (65-95) H 07/25/20 03:57 Arterial Blood Ionized Calcium 4.3 mg/dL (4.6-5.3) L 07/25/20 03:57 Random Vancomycin 11.5 ug/mL (0-40.0) 07/28/20 05:00 Heparin-induced Plt Ab Negative (Negative) 07/23/20 08:54 UF Heparin High Dose 0 % Release 07/23/20 08:54 MAGEN UFH Low Dose 0.1 0 % Release 07/23/20 08:54 MAGEN UFH Low Dose 0.5 0 % Release 07/23/20 08:54 Coronavirus (PCR) Negative (Negative) 08/06/20 Unknown Hepatitis A IgM Ab Non-reactive (NonReactive) 07/23/20 19:20 Hep Bs Antigen Non-reactive (Negative) 07/23/20 19:20 Hep B Core IgM Ab Non-reactive (NonReactive) 07/23/20 19:20 Hepatitis C Antibody Reactive (NonReactive) A 07/23/20 19:20 Blood Type A POSITIVE 08/06/20 09:00 Antibody Screen Negative 08/06/20 09:00 Crossmatch See Detail 08/06/20 09:00 Microbiology: Microbiology 08/06/20 09:00 Stool Stool Occult Blood (PREMA) - Final Ayala/IV: Voiding Method Incontinent Active Medications - Current Medications Current Medications: Generic Name Dose Route Start Last Admin Trade Name Freq PRN Reason Stop Dose Admin Lipase/Protease/Amylase 1 each 07/23/20 14:17 Lipase 10,500/Protease 25,000/Amylase 43,750 (Units) Dr Shell FEEDTUBE PRN PRN For Clogged Feeding Tube Aspirin 81 mg 08/01/20 10:00 08/06/20 09:26 Aspirin 81 Mg Tab Chew PO 81 mg QDAY JODIE Administration Atropine Sulfate 1 mg 07/23/20 09:03 07/23/20 22:15 Atropine 0.1% (1 Mg/10 Ml) Cardiac Syringe IV 1 mg PRN PRN Administration Bradycardia Dextrose 50 ml 07/23/20 03:28 07/23/20 06:00 Dextrose 50% In Water (25gm) 50 Ml Syringe IV 50 ml Q30MIN PRN Administration Hypoglycemia Protocol Famotidine 20 mg 07/18/20 22:00 08/06/20 09:26 Famotidine 20 Mg Tab PO 20 mg DAILY JODIE Administration Folic Acid 1 mg 07/19/20 10:00 08/06/20 09:26 Folic Acid 1 Mg Tab PO 1 mg DAILY JODIE Administration Hydralazine HCl 50 mg 07/18/20 14:00 08/06/20 14:36 Hydralazine 25 Mg Tab PO 50 mg Q8HR JODIE Administration Hydralazine HCl 20 mg 07/22/20 14:02 Hydralazine 20 Mg/1 Ml Inj IV Q4HR PRN Blood Pressure Hydrophilic Ointment 1 applic 07/22/20 10:02 Lip Therapy Vaseline TP Q2HR PRN Dry Lips Norepinephrine 4 mg in 250 mls @ 7.5 mls/hr 07/24/20 10:00 07/24/20 15:35 Levophed Drip 4 Mg/Ns 250 Ml IV 0 mcg/min TITR JODIE 0 mls/hr Titration Protocol 2 MCG/MIN Sodium Chloride 100 mls @ 999 mls/hr 08/03/20 15:05 Nacl 0.9% IV FRANCISCO PRN Hypotension Sodium Chloride 500 mls @ 0 mls/hr 08/06/20 08:14 Nacl 0.9% 500 Ml IV 08/06/20 23:59 ONCE NR As Directed Insulin Glargine 5 units 08/03/20 22:00 08/05/20 21:24 Insulin Glargine 100 Units/Ml SUB-Q 5 units QHS JODIE Administration Insulin Human Lispro 0 unit 07/26/20 10:00 08/06/20 12:19 Insulin Lispro 100 Unit/Ml SUB-Q 2 unit Q6HR JODIE Administration Protocol Levetiracetam 750 mg 07/18/20 22:00 08/06/20 09:26 Levetiracetam 500 Mg/5 Ml Oral Liqd PO 750 mg BID JODIE Administration Multi-Ingred Cream/Lotion/Oil/Oint 1 applic 07/22/20 10:02 Mineral Oil/Petrolatum, White Ophth Oint 3.5 Gm OU Q4HR PRN Dry Eye(s) Scopolamine 1 each 07/31/20 10:00 08/06/20 09:26 Scopolamine Transdermal Patch 72 Hr TD 1 each Q3D JODIE Administration Simple Syrup 15 ml 07/23/20 14:17 Simple Syrup 15 Ml FEEDTUBE PRN PRN Hypoglycemia Simple Syrup 30 ml 07/23/20 14:17 Simple Syrup 15 Ml FEEDTUBE PRN PRN Hypoglycemia Sodium Bicarbonate 325 mg 07/23/20 14:17 Sodium Bicarbonate 325 Mg Tab FEEDTUBE PRN PRN For Clogged Feeding Tube Thiamine HCl 100 mg 07/19/20 10:00 08/06/20 09:26 Thiamine 100 Mg Tab PO 100 mg QDAY JODIE Administration Nutrition/Malnutrition Assess - Dietary Evaluation Nutrition/Malnutrition Findings: Nutrition Notes Start: 07/19/20 09:53 Freq: Status: Active Protocol: Document 08/06/20 12:37 CW (Rec: 08/06/20 12:45 CW [id number]) Nutrition Notes Initial or Follow up Reassessment Current Diagnosis CKD(stage I-IV),Diabetes, Sepsis,Heart Failure, Respiratory Failure,Stroke Other Pertinent Diagnosis AMS, On HD,Acute toxic metabolic encephalopathy, Bradycardia, (R) LE wound, Current Diet Nepro 1.8 at 50 ml/hr Labs/Tests BUN 63 Cr 4.3 BG 138 Pertinent Medications Reviewed Height 5 ft 9 in Weight 91 kg [place] Body Weight (kg) 72.72 BMI 29.6 Weight change and time frame Wt change noted on HD Weight Status Overweight Subjective/Other Information Pt tolerating TF at goal rate. Percent of energy/protein needs met: 100%/67% Burn Absent Trauma Absent GI Symptoms Diarrhea Difficulty In Swallowing Skin Integrity/Comment Diabetic ulcers to BLE Current % PO Negligible Minimum of two criteria Yes Body Fat Depletion Mild depletion (non-severe) Muscle Mass Mild Depletion (non-severe) Fluid Accumulation Moderate to Severe (severe) #2 Nutrition Diagnosis Malnutrition Diagnosis Progress(for reassessment Continues documentation) #1 Nutrition Diagnosis Inadequate oral intake Diagnosis Progress(for reassessment Continues documentation) Is patient on ventilator? Yes Is Patient Ambulatory and/or Out of Bed No REE-([facility]-confined to bed) 2045.316 Kcal/Kg value to use for calculation 20 Approximate Energy Requirements Using 1820 kcal/Kg Calculation Used for Recommendations Kcal/kg Additional Notes Protein needs: >144g (>2.0 g/ kgIBW) Fluid needs 1000 - 1500 ml/day Nutrition Intervention Change Diet Order: TF Nutrition Support: Nepro at 50 ml/h with a free water flush of 125 ml q4h. Kcal 2,160 Protein (gm) 97 Fluid (mL) 872 Add Supplement/Snack (indicate name/kcal Pawel BID /protein ) Provides kCal: 190 Provides Protein (gm) 5 Goal #1 TF tolerance Goal #2 Meet at estimated energy and protein needs as best as possible. Anticipated Discharge Needs: Unable to determine at this time Follow-Up By: 08/09/20 Additional Comments Follow for stable TF, weight <SHE YUEN Brice - Last Filed: 08/07/20 07:00> Assessment and Plan Assessment and plan: I saw and evaluated the patient. I agree with the findings and the plan of care as documented in the Nurse Practitioner's~note, with the following corrections and additions. Hospitalist Physical - Constitutional Vitals: Temp Pulse Resp BP Pulse Ox 98.7 F 78 20 123/67 100 08/07/20 03:27 08/07/20 06:25 08/07/20 06:00 08/07/20 06:25 08/07/20 06:00 HEART Score - HEART Score Troponin: Troponin T 0.047 ng/mL (0.00-0.029) H 07/22/20 10:30 Results - Labs CBC & Chem 7: 08/07/20 05:15 08/06/20 05:53 Labs: Laboratory Last Values WBC 7.2 K/mm3 (4.5-11.0) 08/07/20 05:15 RBC 2.37 M/mm3 (3.65-5.03) L 08/07/20 05:15 Hgb 7.3 gm/dl (11.8-15.2) L 08/07/20 05:15 Hct 21.8 % (35.5-45.6) L 08/07/20 05:15 MCV 92 fl (84-94) 08/07/20 05:15 MCH 31 pg (28-32) 08/07/20 05:15 MCHC 34 % (32-34) 08/07/20 05:15 RDW 16.5 % (13.2-15.2) H 08/07/20 05:15 Plt Count 172 K/mm3 (140-440) 08/07/20 05:15 Lymph % (Auto) 17.8 % (13.4-35.0) 08/06/20 05:53 Roberts % (Auto) 7.5 % (0.0-7.3) H 08/06/20 05:53 Eos % (Auto) 1.3 % (0.0-4.3) 08/06/20 05:53 Baso % (Auto) 0.7 % (0.0-1.8) 08/06/20 05:53 Lymph # (Auto) 1.6 K/mm3 (1.2-5.4) 08/06/20 05:53 Roberts # (Auto) 0.7 K/mm3 (0.0-0.8) 08/06/20 05:53 Eos # (Auto) 0.1 K/mm3 (0.0-0.4) 08/06/20 05:53 Baso # (Auto) 0.1 K/mm3 (0.0-0.1) 08/06/20 05:53 Add Manual Diff Complete 07/27/20 06:36 Total Counted 100 07/27/20 06:36 Seg Neutrophils % 72.7 % (40.0-70.0) H 08/06/20 05:53 Seg Neuts % (Manual) 88.0 % (40.0-70.0) H 07/27/20 06:36 Lymphocytes % (Manual) 11.0 % (13.4-35.0) L 07/27/20 06:36 Monocytes % (Manual) 1.0 % (0.0-7.3) 07/27/20 06:36 Nucleated RBC % 2.0 % (0.0-0.9) H 07/27/20 06:36 Seg Neutrophils # 6.7 K/mm3 (1.8-7.7) 08/06/20 05:53 Seg Neutrophils # Man 8.9 K/mm3 (1.8-7.7) H 07/27/20 06:36 Band Neutrophils # 0.0 K/mm3 07/27/20 06:36 Lymphocytes # (Manual) 1.1 K/mm3 (1.2-5.4) L 07/27/20 06:36 Abs React Lymphs (Man) 0.0 K/mm3 07/27/20 06:36 Monocytes # (Manual) 0.1 K/mm3 (0.0-0.8) 07/27/20 06:36 Eosinophils # (Manual) 0.0 K/mm3 (0.0-0.4) 07/27/20 06:36 Basophils # (Manual) 0.0 K/mm3 (0.0-0.1) 07/27/20 06:36 Metamyelocytes # 0.0 K/mm3 07/27/20 06:36 Myelocytes # 0.0 K/mm3 07/27/20 06:36 Promyelocytes # 0.0 K/mm3 07/27/20 06:36 Blast Cells # 0.0 K/mm3 07/27/20 06:36 WBC Morphology Not Reportable 07/27/20 06:36 Hypersegmented Neuts Not Reportable 07/27/20 06:36 Hyposegmented Neuts Not Reportable 07/27/20 06:36 Hypogranular Neuts Not Reportable 07/27/20 06:36 Smudge Cells Not Reportable 07/27/20 06:36 Toxic Granulation Not Reportable 07/27/20 06:36 Toxic Vacuolation Not Reportable 07/27/20 06:36 Dohle Bodies Not Reportable 07/27/20 06:36 Pelger-Huet Anomaly Not Reportable 07/27/20 06:36 Clint Rods Not Reportable 07/27/20 06:36 Platelet Estimate Consistent w auto 07/27/20 06:36 Clumped Platelets Not Reportable 07/27/20 06:36 Plt Clumps, EDTA Not Reportable 07/27/20 06:36 Large Platelets Not Reportable 07/27/20 06:36 Giant Platelets Not Reportable 07/27/20 06:36 Platelet Satelliting Not Reportable 07/27/20 06:36 Plt Morphology Comment Not Reportable 07/27/20 06:36 RBC Morphology Not Reportable 07/27/20 06:36 Dimorphic RBCs Not Reportable 07/27/20 06:36 Polychromasia Not Reportable 07/27/20 06:36 Hypochromasia Not Reportable 07/27/20 06:36 Poikilocytosis Not Reportable 07/27/20 06:36 Anisocytosis Few 07/27/20 06:36 Microcytosis Not Reportable 07/27/20 06:36 Macrocytosis Not Reportable 07/27/20 06:36 Spherocytes Not Reportable 07/27/20 06:36 Pappenheimer Bodies Not Reportable 07/27/20 06:36 Sickle Cells Not Reportable 07/27/20 06:36 Target Cells Not Reportable 07/27/20 06:36 Tear Drop Cells Not Reportable 07/27/20 06:36 Ovalocytes Not Reportable 07/27/20 06:36 Helmet Cells Not Reportable 07/27/20 06:36 [place] Bodies Not Reportable 07/27/20 06:36 [place] Rings Not Reportable 07/27/20 06:36 [place] Cells Not Reportable 07/27/20 06:36 Bite Cells Not Reportable 07/27/20 06:36 Crenated Cell Not Reportable 07/27/20 06:36 Elliptocytes Not Reportable 07/27/20 06:36 Acanthocytes (Spur) Not Reportable 07/27/20 06:36 Rouleaux Not Reportable 07/27/20 06:36 Hemoglobin C Crystals Not Reportable 07/27/20 06:36 Schistocytes Rare 07/27/20 06:36 [place]aria parasites Not Reportable 07/27/20 06:36 Carl Bodies Not Reportable 07/27/20 06:36 Hem Pathologist Commnt No 07/27/20 06:36 PT 15.9 Sec. (12.2-14.9) H 07/22/20 10:30 INR 1.27 (0.87-1.13) H 07/22/20 10:30 APTT 38.3 Sec. (24.2-36.6) H 07/22/20 10:30 D-Dimer 1036.46 ng/mlDDU (0-234) H 07/18/20 08:56 Heparin Anti-Xa, Unfract Negative (Negative) 07/23/20 08:54 ABG pH 7.520 pH Units (7.350-7.450) H 07/27/20 05:20 POC ABG pCO2 32.7 mmHg (32.0-48.0) 07/25/20 03:57 ABG pCO2 33.5 mm Hg 07/27/20 05:20 POC ABG pO2 62.7 mmHg (83-108) L 07/25/20 03:57 ABG pO2 64.2 mm Hg (80.0-90.0) L 07/27/20 05:20 POC ABG HCO3 24.8 07/25/20 03:57 ABG HCO3 26.8 mmol/L (20.0-26.0) H 07/27/20 05:20 ABG O2 Saturation 95.8 % (95.0-99.0) 07/27/20 05:20 ABG O2 Content 9.5 (0.0-44) 07/27/20 05:20 POC ABG Base Excess 1.7 07/25/20 03:57 ABG Base Excess 3.7 mmol/L (-2.0-3.0) H 07/27/20 05:20 ABG Hemoglobin 7.2 gm/dl (14.0-18.0) L 07/27/20 05:20 ABG Oxyhemoglobin 90.1 (94-98) L 07/25/20 03:57 ABG Carboxyhemoglobin 2.3 % (0.0-5.0) 07/27/20 05:20 ABG Methemoglobin 0.5 % (0.0-1.5) 07/27/20 05:20 ABG Sodium 138.7 mmol/L (136.0-145.0) 07/25/20 03:57 ABG Potassium 4.0 mmol/L (3.40-4.50) 07/25/20 03:57 ABG Chloride 110.0 mmol/L (98-107) H 07/25/20 03:57 ABG Glucose 157 mg/dL (65-95) H 07/25/20 03:57 Oxyhemoglobin 93.2 % (95.0-99.0) L 07/27/20 05:20 Carboxyhemoglobin 1.1 (0.5-1.5) 07/25/20 03:57 FiO2 25 % 07/27/20 05:20 FiO2 % 40 07/25/20 03:57 Sodium 138 mmol/L (137-145) 08/06/20 05:53 Potassium 4.0 mmol/L (3.6-5.0) 08/06/20 05:53 Chloride 98.1 mmol/L (98-107) 08/06/20 05:53 Carbon Dioxide 31 mmol/L (22-30) H 08/06/20 05:53 Anion Gap 13 mmol/L 08/06/20 05:53 BUN 63 mg/dL (9-20) H 08/06/20 05:53 Creatinine 4.3 mg/dL (0.8-1.3) H 08/06/20 05:53 Estimated GFR 17 ml/min 08/06/20 05:53 BUN/Creatinine Ratio 15 % 08/06/20 05:53 Glucose 138 mg/dL (75-100) H 08/06/20 05:53 POC Glucose 184 mg/dL (70-105) H 08/06/20 23:17 Lactic Acid 0.80 mmol/L (0.7-2.0) 07/18/20 08:56 Calcium 8.3 mg/dL (8.4-10.2) L 08/06/20 05:53 Phosphorus 3.40 mg/dL (2.5-4.5) 08/03/20 04:00 Magnesium 1.80 mg/dL (1.7-2.3) 08/03/20 04:00 Ferritin 198.6 ng/mL (30.0-300.0) 07/18/20 10:36 Total Bilirubin 0.30 mg/dL (0.1-1.2) 07/22/20 10:30 Direct Bilirubin 0.2 mg/dL (0-0.2) 07/19/20 06:00 Indirect Bilirubin 0.2 mg/dL 07/19/20 06:00 AST 66 units/L (5-40) H 07/22/20 10:30 ALT < 5 units/L (7-56) L 07/22/20 10:30 Alkaline Phosphatase 604 units/L (35-129) H 07/22/20 10:30 Ammonia 41.0 umol/L (25-60) 07/18/20 08:56 Lactate Dehydrogenase 212 units/L (91-180) H 07/18/20 10:36 Total Creatine Kinase 67 units/L (55-170) 07/22/20 10:30 CK-MB (CK-2) 10.9 ng/mL (0.0-4.0) H 07/22/20 10:30 CK-MB (CK-2) Rel Index 16.2 (0-4) H 07/22/20 10:30 Troponin T 0.047 ng/mL (0.00-0.029) H 07/22/20 10:30 C-Reactive Protein 2.10 mg/dL (0.00-1.30) H 07/18/20 10:36 NT-Pro-B Natriuret Pep 4777 pg/mL (0-900) H 07/18/20 08:56 Total Protein 6.4 g/dL (6.3-8.2) 07/22/20 10:30 Albumin 2.1 g/dL (3.9-5) L 07/22/20 10:30 Albumin/Globulin Ratio 0.5 % 07/22/20 10:30 Triglycerides 65 mg/dL (2-149) 07/18/20 08:56 Cholesterol 157 mg/dL (50-199) 07/18/20 08:56 LDL Cholesterol Direct 95 mg/dL (50-130) 07/18/20 08:56 HDL Cholesterol 67 mg/dL (40-59) H 07/18/20 08:56 Cholesterol/HDL Ratio 2.34 % 07/18/20 08:56 Procalcitonin 0.10 ng/mL (<0.15) 07/18/20 10:36 TSH 5.520 mlU/mL (0.270-4.200) H 07/18/20 08:56 Free T4 0.84 ng/dL (0.76-1.46) 07/18/20 08:56 Arterial Blood Glucose 157 mg/dL (65-95) H 07/25/20 03:57 Arterial Blood Ionized Calcium 4.3 mg/dL (4.6-5.3) L 07/25/20 03:57 Random Vancomycin 11.5 ug/mL (0-40.0) 07/28/20 05:00 Heparin-induced Plt Ab Negative (Negative) 07/23/20 08:54 UF Heparin High Dose 0 % Release 07/23/20 08:54 MAGEN UFH Low Dose 0.1 0 % Release 07/23/20 08:54 MAGEN UFH Low Dose 0.5 0 % Release 07/23/20 08:54 Coronavirus (PCR) Negative (Negative) 08/06/20 Unknown Hepatitis A IgM Ab Non-reactive (NonReactive) 07/23/20 19:20 Hep Bs Antigen Non-reactive (Negative) 07/23/20 19:20 Hep B Core IgM Ab Non-reactive (NonReactive) 07/23/20 19:20 Hepatitis C Antibody Reactive (NonReactive) A 07/23/20 19:20 Blood Type A POSITIVE 08/06/20 09:00 Antibody Screen Negative 08/06/20 09:00 Crossmatch See Detail 08/06/20 09:00 Microbiology: Microbiology 08/06/20 09:00 Stool Stool Occult Blood (PREMA) - Final Ayala/IV: Voiding Method Incontinent Active Medications - Current Medications Current Medications: Generic Name Dose Route Start Last Admin Trade Name Freq PRN Reason Stop Dose Admin Lipase/Protease/Amylase 1 each 07/23/20 14:17 Lipase 10,500/Protease 25,000/Amylase 43,750 (Units) Dr Cap FEEDTUBE PRN PRN For Clogged Feeding Tube Aspirin 81 mg 08/01/20 10:00 08/06/20 09:26 Aspirin 81 Mg Tab Chew PO 81 mg QDAY JODIE Administration Atropine Sulfate 1 mg 07/23/20 09:03 07/23/20 22:15 Atropine 0.1% (1 Mg/10 Ml) Cardiac Syringe IV 1 mg PRN PRN Administration Bradycardia Dextrose 50 ml 07/23/20 03:28 07/23/20 06:00 Dextrose 50% In Water (25gm) 50 Ml Syringe IV 50 ml Q30MIN PRN Administration Hypoglycemia Protocol Famotidine 20 mg 07/18/20 22:00 08/06/20 09:26 Famotidine 20 Mg Tab PO 20 mg DAILY JODIE Administration Folic Acid 1 mg 07/19/20 10:00 08/06/20 09:26 Folic Acid 1 Mg Tab PO 1 mg DAILY JODIE Administration Hydralazine HCl 50 mg 07/18/20 14:00 08/07/20 06:25 Hydralazine 25 Mg Tab PO Not Given Q8HR JODIE Hydralazine HCl 20 mg 07/22/20 14:02 Hydralazine 20 Mg/1 Ml Inj IV Q4HR PRN Blood Pressure Hydrophilic Ointment 1 applic 07/22/20 10:02 Lip Therapy Vaseline TP Q2HR PRN Dry Lips Norepinephrine 4 mg in 250 mls @ 7.5 mls/hr 07/24/20 10:00 07/24/20 15:35 Levophed Drip 4 Mg/Ns 250 Ml IV 0 mcg/min TITR JODIE 0 mls/hr Titration Protocol 2 MCG/MIN Sodium Chloride 100 mls @ 999 mls/hr 08/03/20 15:05 Nacl 0.9% IV FRANCISCO PRN Hypotension Insulin Glargine 5 units 08/03/20 22:00 08/06/20 21:06 Insulin Glargine 100 Units/Ml SUB-Q 5 units QHS JODIE Administration Insulin Human Lispro 0 unit 07/26/20 10:00 08/07/20 06:29 Insulin Lispro 100 Unit/Ml SUB-Q 2 unit Q6HR JODIE Administration Protocol Levetiracetam 750 mg 07/18/20 22:00 08/06/20 21:07 Levetiracetam 500 Mg/5 Ml Oral Liqd PO 750 mg BID JODIE Administration Multi-Ingred Cream/Lotion/Oil/Oint 1 applic 07/22/20 10:02 Mineral Oil/Petrolatum, White Ophth Oint 3.5 Gm OU Q4HR PRN Dry Eye(s) Scopolamine 1 each 07/31/20 10:00 08/06/20 09:26 Scopolamine Transdermal Patch 72 Hr TD 1 each Q3D JODIE Administration Simple Syrup 15 ml 07/23/20 14:17 Simple Syrup 15 Ml FEEDTUBE PRN PRN Hypoglycemia Simple Syrup 30 ml 07/23/20 14:17 Simple Syrup 15 Ml FEEDTUBE PRN PRN Hypoglycemia Sodium Bicarbonate 325 mg 07/23/20 14:17 Sodium Bicarbonate 325 Mg Tab FEEDTUBE PRN PRN For Clogged Feeding Tube Thiamine HCl 100 mg 07/19/20 10:00 08/06/20 09:26 Thiamine 100 Mg Tab PO 100 mg QDAY JODIE Administration Nutrition/Malnutrition Assess - Dietary Evaluation Nutrition/Malnutrition Findings: Nutrition Notes Start: 07/19/20 09:53 Freq: Status: Active Protocol: Document 08/06/20 12:37 CW (Rec: 08/06/20 12:45 CW [email or web address]) Nutrition Notes Initial or Follow up Reassessment Current Diagnosis CKD(stage I-IV),Diabetes, Sepsis,Heart Failure, Respiratory Failure,Stroke Other Pertinent Diagnosis AMS, On HD,Acute toxic metabolic encephalopathy, Bradycardia, (R) LE wound, Current Diet Nepro 1.8 at 50 ml/hr Labs/Tests BUN 63 Cr 4.3 BG 138 Pertinent Medications Reviewed Height 5 ft 9 in Weight 91 kg [place] Body Weight (kg) 72.72 BMI 29.6 Weight change and time frame Wt change noted on HD Weight Status Overweight Subjective/Other Information Pt tolerating TF at goal rate. Percent of energy/protein needs met: 100%/67% Burn Absent Trauma Absent GI Symptoms Diarrhea Difficulty In Swallowing Skin Integrity/Comment Diabetic ulcers to BLE Current % PO Negligible Minimum of two criteria Yes Body Fat Depletion Mild depletion (non-severe) Muscle Mass Mild Depletion (non-severe) Fluid Accumulation Moderate to Severe (severe) #2 Nutrition Diagnosis Malnutrition Diagnosis Progress(for reassessment Continues documentation) #1 Nutrition Diagnosis Inadequate oral intake Diagnosis Progress(for reassessment Continues documentation) Is patient on ventilator? Yes Is Patient Ambulatory and/or Out of Bed No REE-([place]-confined to bed) 2045.316 Kcal/Kg value to use for calculation 20 Approximate Energy Requirements Using 1820 kcal/Kg Calculation Used for Recommendations Kcal/kg Additional Notes Protein needs: >144g (>2.0 g/ kgIBW) Fluid needs 1000 - 1500 ml/day Nutrition Intervention Change Diet Order: TF Nutrition Support: Nepro at 50 ml/h with a free water flush of 125 ml q4h. Kcal 2,160 Protein (gm) 97 Fluid (mL) 872 Add Supplement/Snack (indicate name/kcal Pawel BID /protein ) Provides kCal: 190 Provides Protein (gm) 5 Goal #1 TF tolerance Goal #2 Meet at estimated energy and protein needs as best as possible. Anticipated Discharge Needs: Unable to determine at this time Follow-Up By: 08/09/20 Additional Comments Follow for stable TF, weight
[2020-08-06] MEDS: INSULIN GLARGINE 100 UNITS/ML SUB-Q SCH (21:06)
[2020-08-07] MEDS: INSULIN LISPRO 100 UNIT/ML SUB-Q SCH ×4 (00:12→18:03)
[2020-08-07 05:31] LABS: Hematocrit 21.8 % (35.5-45.6); Hemoglobin 7.3 gm/dl (11.8-15.2); Mean Corpuscular HGB Conc 34 % (32-34); Mean Corpuscular Volume 92 fl (84-94); Platelet Count 172 K/mm3 (140-440); Red Blood Count 2.37 M/mm3 (3.65-5.03); Red Cell Distribution Width 16.5 % (13.2-15.2)
[2020-08-07] MEDS: hydrALAZINE 25 MG TAB PO SCH ×3 (06:25→21:24)
--- NOTE | 2020-08-07 08:32 | Progress Note ---
Assessment and Plan - Patient Problems (1) Acute on chronic renal failure Current Visit: Yes Status: Acute Qualifiers: Acute renal failure type: unspecified Chronic kidney disease stage: stage 3 (moderate) Chronic kidney disease stage 3 subtype: stage 3a (GFR 45-59) Qualified Code(s): N17.9 - Acute kidney failure, unspecified; N18.31 - Chronic kidney disease, stage 3a Plan to address problem: Acute on chronic kidney disease which was still worsening. Patient did not respond to IV diuretics. Hyperkalemia and metabolic acidosis were persisting. Dialysis was started 07/23/20. Tolerating dialysis with no complications. Continue Hemodialysis and monitor response (2) Anasarca Current Visit: Yes Status: Acute Plan to address problem: Patient did not respond to aggressive IV diuretics. Volume status is improved with intensive dialysis/ultrafiltration. Continue dialysis 3 times a week and only do ultrafiltration as indicated. We will do ultrafiltration today only this week. Discussed with RN (3) Hyperkalemia Current Visit: Yes Status: Acute Plan to address problem: Hyperkalemia persisted despite medical management consult patient was started on dialysis for solute control. 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 Patient did not respond to intravenous diuretics. Dialysis was started for fluid removal. (5) Sepsis Current Visit: Yes Status: Suspected Qualifiers: Sepsis type: sepsis due to unspecified organism Sepsis acute organ dysfunction status: with acute organ dysfunction Severe sepsis acute organ dysfunction type: acute renal failure Acute renal failure type: unspecified Severe sepsis shock status: without septic shock Qualified Code(s): A41.9 - Sepsis, unspecified organism; R65.20 - Severe sepsis without septic shock; N17.9 - Acute kidney failure, unspecified Plan to address problem: Continue empiric antibiotic. Follow-up cultures. (6) Hypertensive chronic kidney disease with stage 1 through stage 4 chronic kidney disease, or unspecified chronic kidney disease Current Visit: No Status: Acute Plan to address problem: Blood pressure is improving. Follow-up (7) Type 2 diabetes mellitus with diabetic nephropathy Current Visit: No Status: Acute Plan to address problem: Blood sugar management by primary attending (8) Anoxic encephalopathy Current Visit: Yes Status: Acute Plan to address problem: No significant improvement. MRI findings appreciated. Poor prognosis. Awaiting family decision Subjective Date of service: 08/07/20 Principal diagnosis: RACQUEL Interval history: Patient seen lying in bed. Intubated on the ventilator. Not interacting. On Dialysis -isolated ultrafiltration on 2.5 L Objective - Exam Narrative Exam: Middle-aged -[place] male lying in bed intubated on ventilator HEENT: NCAT, endotracheal tube intact Neck: Supple, no venous distention CVS: S1S2 RRR with no murmur, rub or gallop Chest: Coarse breath sounds Abdomen: Protuberant, soft, nontender, no organomegaly, bowel sounds are present Extremities: mild edema thighs, wrinkled skin in both legs with hyperpigmentation Genitourinary deferred Skin with hyperpigmentation especially in the legs and feet, dressing right leg Neuro: Unresponsive - Vital Signs Vital signs: Vital Signs - 12hr 08/06/20 08/06/20 08/06/20 21:00 21:07 21:41 Temperature Pulse Rate 79 78 83 Pulse Rate [ From Monitor] Respiratory 23 Rate Blood Pressure 103/60 103/60 102/59 O2 Sat by Pulse 100 99 Oximetry O2 Sat by Pulse Oximetry [ Anterior Bilateral Throughout] 08/06/20 08/06/20 08/06/20 22:00 23:00 23:24 Temperature Pulse Rate 80 77 77 Pulse Rate [ From Monitor] Respiratory 23 19 20 Rate Blood Pressure 100/56 112/64 108/64 O2 Sat by Pulse 96 100 100 Oximetry O2 Sat by Pulse Oximetry [ Anterior Bilateral Throughout] 08/06/20 08/07/20 08/07/20 23:52 00:00 01:00 Temperature 99 F Pulse Rate 82 81 Pulse Rate [ 82 From Monitor] Respiratory 20 20 Rate Blood Pressure 118/66 109/63 O2 Sat by Pulse 97 98 Oximetry O2 Sat by Pulse Oximetry [ Anterior Bilateral Throughout] 08/07/20 08/07/20 08/07/20 01:02 02:00 03:00 Temperature Pulse Rate 82 87 92 H Pulse Rate [ From Monitor] Respiratory 19 17 Rate Blood Pressure 109/63 110/65 111/72 O2 Sat by Pulse 98 100 100 Oximetry O2 Sat by Pulse Oximetry [ Anterior Bilateral Throughout] 08/07/20 08/07/20 08/07/20 03:27 04:00 04:41 Temperature 98.7 F Pulse Rate 87 89 Pulse Rate [ 87 From Monitor] Respiratory 19 Rate Blood Pressure 116/66 110/65 O2 Sat by Pulse 100 99 Oximetry O2 Sat by Pulse Oximetry [ Anterior Bilateral Throughout] 08/07/20 08/07/20 08/07/20 05:00 06:00 06:25 Temperature Pulse Rate 87 83 78 Pulse Rate [ From Monitor] Respiratory 19 20 Rate Blood Pressure 122/70 119/67 123/67 O2 Sat by Pulse 100 100 Oximetry O2 Sat by Pulse Oximetry [ Anterior Bilateral Throughout] 08/07/20 08/07/20 08/07/20 07:30 07:40 07:45 Temperature 97.7 F Pulse Rate 77 77 79 Pulse Rate [ From Monitor] Respiratory 20 Rate Blood Pressure 102/58 102/58 106/60 O2 Sat by Pulse Oximetry O2 Sat by Pulse 100 Oximetry [ Anterior Bilateral Throughout] 08/07/20 08/07/20 08:00 08:15 Temperature 97.9 F Pulse Rate 77 75 Pulse Rate [ From Monitor] Respiratory Rate Blood Pressure 101/59 102/60 O2 Sat by Pulse Oximetry O2 Sat by Pulse Oximetry [ Anterior Bilateral Throughout] - Lab 08/07/20 05:15 08/06/20 05:53 Most recent lab results ABG pH 7.520 pH Units (7.350-7.450) H 07/27/20 05:20 ABG pCO2 33.5 mm Hg 07/27/20 05:20 ABG pO2 64.2 mm Hg (80.0-90.0) L 07/27/20 05:20 ABG HCO3 26.8 mmol/L (20.0-26.0) H 07/27/20 05:20 ABG O2 Saturation 95.8 % (95.0-99.0) 07/27/20 05:20 Calcium 8.3 mg/dL (8.4-10.2) L 08/06/20 05:53 Phosphorus 3.40 mg/dL (2.5-4.5) 08/03/20 04:00 Magnesium 1.80 mg/dL (1.7-2.3) 08/03/20 04:00 Medications & Allergies - Medications Allergies/Adverse Reactions: Allergies No Known Allergies Allergy (Verified 06/19/19 17:53) Home Medications: Home Medications Medication Instructions Recorded Confirmed Last Taken Type FLUoxetine [PROzac] 20 mg PO QDAY #14 capsule 06/23/19 06/21/20 Unknown Rx traZODone [Desyrel] 50 mg PO QHS #10 tablet 06/23/19 06/21/20 Unknown Rx Folic Acid 1 mg PO DAILY #30 tablet 06/25/19 06/21/20 Unknown Rx Nicotine [Habitrol] 14 mg TD DAILY #30 patch 06/25/19 06/21/20 Unknown Rx Thiamine [Vitamin B-1] 100 mg PO QDAY #30 tablet 06/25/19 06/21/20 Unknown Rx Aspirin EC [Halfprin EC] 81 mg PO QDAY #30 tablet. 07/26/19 06/21/20 Unknown Rx levETIRAcetam [Keppra TAB] 750 mg PO BID #60 tablet 07/26/19 06/21/20 Unknown Rx Furosemide [Lasix TAB] 40 mg PO QDAY #30 tablet 04/28/20 06/21/20 Unknown Rx Famotidine [Pepcid] 20 mg PO BID #60 tablet 07/05/20 Unknown Rx Insulin NPH, Human [NovoLIN N] 5 unit SUB-Q BIDDIAB 30 Days #10 ml 07/05/20 06/21/20 Unknown Rx amLODIPine 10 mg PO QDAY #30 tablet 07/05/20 Unknown Rx carvediloL [Coreg] 12.5 mg PO BID #60 tablet 07/05/20 Unknown Rx hydrALAZINE [Apresoline TAB] 50 mg PO Q8HR #30 tablet 07/06/20 Unknown Rx Active Medications: Generic Name Dose Route Start Last Admin Trade Name Freq PRN Reason Stop Dose Admin Lipase/Protease/Amylase 1 each 07/23/20 14:17 Lipase 10,500/Protease 25,000/Amylase 43,750 (Units) Dr Shell FEEDTUBE PRN PRN For Clogged Feeding Tube Aspirin 81 mg 08/01/20 10:00 08/06/20 09:26 Aspirin 81 Mg Tab Chew PO 81 mg QDAY JODIE Administration Atropine Sulfate 1 mg 07/23/20 09:03 07/23/20 22:15 Atropine 0.1% (1 Mg/10 Ml) Cardiac Syringe IV 1 mg PRN PRN Administration Bradycardia Dextrose 50 ml 07/23/20 03:28 07/23/20 06:00 Dextrose 50% In Water (25gm) 50 Ml Syringe IV 50 ml Q30MIN PRN Administration Hypoglycemia Protocol Famotidine 20 mg 07/18/20 22:00 08/06/20 09:26 Famotidine 20 Mg Tab PO 20 mg DAILY JODIE Administration Folic Acid 1 mg 07/19/20 10:00 08/06/20 09:26 Folic Acid 1 Mg Tab PO 1 mg DAILY JODIE Administration Hydralazine HCl 50 mg 07/18/20 14:00 08/07/20 06:25 Hydralazine 25 Mg Tab PO Not Given Q8HR [facility] Hydralazine HCl 20 mg 07/22/20 14:02 Hydralazine 20 Mg/1 Ml Inj IV Q4HR PRN Blood Pressure Hydrophilic Ointment 1 applic 07/22/20 10:02 Lip Therapy Vaseline TP Q2HR PRN Dry Lips Norepinephrine 4 mg in 250 mls @ 7.5 mls/hr 07/24/20 10:00 07/24/20 15:35 Levophed Drip 4 Mg/Ns 250 Ml IV 0 mcg/min TITR JODIE 0 mls/hr Titration Protocol 2 MCG/MIN Sodium Chloride 100 mls @ 999 mls/hr 08/03/20 15:05 Nacl 0.9% IV FRANCISCO PRN Hypotension Insulin Glargine 5 units 08/03/20 22:00 08/06/20 21:06 Insulin Glargine 100 Units/Ml SUB-Q 5 units QHS [facility] Administration Insulin Human Lispro 0 unit 07/26/20 10:00 08/07/20 06:29 Insulin Lispro 100 Unit/Ml SUB-Q 2 unit Q6HR JODIE Administration Protocol Levetiracetam 750 mg 07/18/20 22:00 08/06/20 21:07 Levetiracetam 500 Mg/5 Ml Oral Liqd PO 750 mg BID JODIE Administration Multi-Ingred Cream/Lotion/Oil/Oint 1 applic 07/22/20 10:02 Mineral Oil/Petrolatum, White Ophth Oint 3.5 Gm OU Q4HR PRN Dry Eye(s) Scopolamine 1 each 07/31/20 10:00 08/06/20 09:26 Scopolamine Transdermal Patch 72 Hr TD 1 each Q3D JODIE Administration Simple Syrup 15 ml 07/23/20 14:17 Simple Syrup 15 Ml FEEDTUBE PRN PRN Hypoglycemia Simple Syrup 30 ml 07/23/20 14:17 Simple Syrup 15 Ml FEEDTUBE PRN PRN Hypoglycemia Sodium Bicarbonate 325 mg 07/23/20 14:17 Sodium Bicarbonate 325 Mg Tab FEEDTUBE PRN PRN For Clogged Feeding Tube Thiamine HCl 100 mg 07/19/20 10:00 08/06/20 09:26 Thiamine 100 Mg Tab PO 100 mg QDAY JODIE Administration
[2020-08-07] MEDS: FOLIC ACID 1 MG TAB PO SCH (10:20)
[2020-08-07] MEDS: FAMOTIDINE 20 MG TAB PO SCH (10:20)
[2020-08-07] MEDS: ASPIRIN 81 MG TAB CHEW PO SCH (10:20)
[2020-08-07] MEDS: levETIRAcetam 500 MG/5 ML ORAL LIQD PO SCH ×2 (10:20→21:24)
[2020-08-07] MEDS: THIAMINE 100 MG TAB PO SCH (10:21)
--- NOTE | 2020-08-07 11:25 | Progress Note ---
Assessment and Plan 8 y/o male with acute respiratory failure secondary to worsening renal failure, volume overload and altered mental state 08/07/20: Follow up post visit from daughter today. Hospice appropriate. Continue supportive measures. 08/06/20: CM to call daughter today. would like for her to visit her father so she can see his clinical state for herself. Continue supportive measures. Brain MRI has been done but not read yet. No neuro follow up since repeat EEG read. Goals of care to be discussed with family once all information has been assessed and interpreted. 08/05/20: Will call daughter back tomorrow to assess where we are as far as goals of care. It does not appear that she visited this weekend. Will continue supportive measures. Overall prognosis is appears poor. 08/04/20: Long discussion with daughter over the phone. Explained overall poor prognosis. Per daughter, patient would not want to exist like this. She is going to come visit and at that time I will discuss with her about future plans (hospice, vs withdrawal of care and comfort measures). Continue all supportive therapy for now and await daughter visit and her speaking with family. 08/03/20: Reviewed repeat EEG. Getting MRI today. Will ask Neuro to see patient again after MRI. Given current state and now reading on EEG, will need to have family discussion once MRI is done. Likely will need trach and peg placement. Transfuse today during HD. 08/02/20: Will consider ordering repeat EEG today tomorrow. Neuro has not re- evaluated the patient since initial consult. Hold on transfusion today as bp is stable and HD is not until tomorrow. Overall prognosis is guarded to poor. May need to start looking into LTACH if not able to wean. Currently on minimal settings but mental state will not allow traditional extubation. 08/01/20: Will repeat EEG at request of neurology. No MRI requested. CT and EEG report not equivalent. Trial of narcan given but no improvement. Does have urine in the bladder but no jones and prior history of obstruction requiring urology to place jones. May need to consider asking them to re-evaluate. Pro gnosis remains guarded to poor. 07/31/20: Will obtain, EEG and neuro consult. They will likely ask for MRI so will speak with family about obtaining screening form info. Continue PSV trials. HD per renal. Guarded to poor prognosis. 07/30/20: Mental state continues to prevent conventional extubation. HD per renal. Need to repeat Head CT to check for other damage. 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 Very very guarded prognosis. If repeat head CT is negative, will need neuro eval and EEG 07/27/20: Mental state continues to prevent conventional extubation. Currently stable on minimal vent settings. HD per renal, does not appear he was dialyzed yesterday so may get it today. If not more awake by tomorrow, suggest repeat head CT. Continue all other supportive measures. 07/26/20: Drop PEEP down to 6. Once more awake PSV trials. HD per renal. Ap pears to be helping, maybe they will dialyze again today. Prognosis still remains guarded. 1. Needs HD 2. Wean FiO2 and PEEP as tolerated 3. Guarded prognosis CCT 31 minutes. Subjective Date of service: 08/07/20 Principal diagnosis: RACQUEL Interval history: No acute events. Remains unresponsive. Had HD this am. Daughter to visit soon. Objective Vital Signs - 12hr 08/06/20 08/06/20 08/07/20 23:24 23:52 00:00 Temperature 99 F Pulse Rate 77 82 Pulse Rate [ 82 From Monitor] Respiratory 20 20 Rate Blood Pressure 108/64 118/66 O2 Sat by Pulse 100 97 Oximetry O2 Sat by Pulse Oximetry [ Anterior Bilateral Throughout] 08/07/20 08/07/20 08/07/20 01:00 01:02 02:00 Temperature Pulse Rate 81 82 87 Pulse Rate [ From Monitor] Respiratory 20 19 Rate Blood Pressure 109/63 109/63 110/65 O2 Sat by Pulse 98 98 100 Oximetry O2 Sat by Pulse Oximetry [ Anterior Bilateral Throughout] 08/07/20 08/07/20 08/07/20 03:00 03:27 04:00 Temperature 98.7 F Pulse Rate 92 H 87 Pulse Rate [ 87 From Monitor] Respiratory 17 19 Rate Blood Pressure 111/72 116/66 O2 Sat by Pulse 100 100 Oximetry O2 Sat by Pulse Oximetry [ Anterior Bilateral Throughout] 08/07/20 08/07/20 08/07/20 04:41 05:00 06:00 Temperature Pulse Rate 89 87 83 Pulse Rate [ From Monitor] Respiratory 19 20 Rate Blood Pressure 110/65 122/70 119/67 O2 Sat by Pulse 99 100 100 Oximetry O2 Sat by Pulse Oximetry [ Anterior Bilateral Throughout] 08/07/20 08/07/20 08/07/20 06:25 07:00 07:30 Temperature 97.7 F Pulse Rate 78 77 77 Pulse Rate [ From Monitor] Respiratory 20 20 Rate Blood Pressure 123/67 104/61 102/58 O2 Sat by Pulse 100 Oximetry O2 Sat by Pulse 100 Oximetry [ Anterior Bilateral Throughout] 08/07/20 08/07/20 08/07/20 07:40 07:45 08:00 Temperature 97.9 F Pulse Rate 77 79 77 Pulse Rate [ 81 From Monitor] Respiratory 21 Rate Blood Pressure 102/58 106/60 101/59 O2 Sat by Pulse 100 Oximetry O2 Sat by Pulse Oximetry [ Anterior Bilateral Throughout] 08/07/20 08/07/20 08/07/20 08:15 08:30 08:45 Temperature Pulse Rate 75 75 73 Pulse Rate [ From Monitor] Respiratory Rate Blood Pressure 102/60 97/57 98/61 O2 Sat by Pulse Oximetry O2 Sat by Pulse Oximetry [ Anterior Bilateral Throughout] 08/07/20 08/07/20 08/07/20 08:52 09:00 09:15 Temperature Pulse Rate 75 72 74 Pulse Rate [ From Monitor] Respiratory 20 Rate Blood Pressure 97/57 80/49 96/56 O2 Sat by Pulse 100 100 Oximetry O2 Sat by Pulse Oximetry [ Anterior Bilateral Throughout] 08/07/20 08/07/20 08/07/20 09:30 09:40 09:49 Temperature 97.9 F Pulse Rate 75 75 77 Pulse Rate [ From Monitor] Respiratory 20 Rate Blood Pressure 98/57 95/50 99/59 O2 Sat by Pulse Oximetry O2 Sat by Pulse 100 Oximetry [ Anterior Bilateral Throughout] 08/07/20 08/07/20 10:00 11:00 Temperature Pulse Rate 74 74 Pulse Rate [ From Monitor] Respiratory 20 18 Rate Blood Pressure 93/54 114/70 O2 Sat by Pulse 100 100 Oximetry O2 Sat by Pulse Oximetry [ Anterior Bilateral Throughout] Constitutional: appears uncomfortable (cpap, orally intubated), other (on vent orally intubated) Eyes: non-icteric ENT: epistaxis Neck: other (large in circumference) Effort: mildly labored Ascultation: Bilateral: diminished breath sounds Neurologic: non-focal exam, unable to assess CBC and BMP: 08/07/20 05:15 08/06/20 05:53 ABG, PT/INR, D-dimer: ABG ABG pH 7.520 pH Units (7.350-7.450) H 07/27/20 05:20 POC ABG pCO2 32.7 mmHg (32.0-48.0) 07/25/20 03:57 ABG pCO2 33.5 mm Hg 07/27/20 05:20 POC ABG pO2 62.7 mmHg (83-108) L 07/25/20 03:57 ABG pO2 64.2 mm Hg (80.0-90.0) L 07/27/20 05:20 POC ABG HCO3 24.8 07/25/20 03:57 ABG O2 Saturation 95.8 % (95.0-99.0) 07/27/20 05:20 PT/INR, D-dimer PT 15.9 Sec. (12.2-14.9) H 07/22/20 10:30 INR 1.27 (0.87-1.13) H 07/22/20 10:30 D-Dimer 1036.46 ng/mlDDU (0-234) H 07/18/20 08:56 Abnormal lab findings: Abnormal Labs 07/18/20 07/18/20 07/18/20 08:56 08:56 08:56 WBC 3.5 L RBC 2.51 L Hgb 8.0 L Hct 24.5 L MCV 98 H RDW 18.3 H Plt Count 58 L Lymph % (Auto) [place] % (Auto) 11.1 H Lymph # (Auto) [place] # (Auto) Seg Neutrophils % Seg Neuts % (Manual) Lymphocytes % (Manual) Nucleated RBC % Seg Neutrophils # Man Lymphocytes # (Manual) PT INR 1.18 H APTT D-Dimer ABG pH POC ABG pCO2 POC ABG pO2 ABG pO2 ABG HCO3 ABG Base Excess ABG Hemoglobin ABG Oxyhemoglobin ABG Potassium ABG Chloride ABG Glucose Oxyhemoglobin Carboxyhemoglobin Sodium 146 H Potassium 5.2 H Chloride 117.3 H Carbon Dioxide 21 L BUN 52 H Creatinine 3.1 H Glucose 118 H POC Glucose Calcium 8.1 L Phosphorus AST ALT Alkaline Phosphatase Lactate Dehydrogenase CK-MB (CK-2) CK-MB (CK-2) Rel Index Troponin T 0.057 H C-Reactive Protein NT-Pro-B Natriuret Pep Albumin HDL Cholesterol 67 H TSH Arterial Blood Glucose Arterial Blood Ionized Calcium Hepatitis C Antibody Crossmatch 07/18/20 07/18/20 07/18/20 08:56 08:56 08:56 WBC RBC Hgb Hct MCV RDW Plt Count Lymph % (Auto) [place] % (Auto) Lymph # (Auto) [place] # (Auto) Seg Neutrophils % Seg Neuts % (Manual) Lymphocytes % (Manual) Nucleated RBC % Seg Neutrophils # Man Lymphocytes # (Manual) PT INR APTT D-Dimer 1036.46 H ABG pH POC ABG pCO2 POC ABG pO2 ABG pO2 ABG HCO3 ABG Base Excess ABG Hemoglobin ABG Oxyhemoglobin ABG Potassium ABG Chloride ABG Glucose Oxyhemoglobin Carboxyhemoglobin Sodium Potassium Chloride Carbon Dioxide BUN Creatinine Glucose POC Glucose Calcium Phosphorus AST ALT Alkaline Phosphatase Lactate Dehydrogenase CK-MB (CK-2) CK-MB (CK-2) Rel Index Troponin T C-Reactive Protein NT-Pro-B Natriuret Pep 4777 H Albumin HDL Cholesterol TSH 5.520 H Arterial Blood Glucose Arterial Blood Ionized Calcium Hepatitis C Antibody Crossmatch 07/18/20 07/18/20 07/18/20 10:36 18:56 19:00 WBC RBC Hgb Hct MCV RDW Plt Count Lymph % (Auto) [place] % (Auto) Lymph # (Auto) [place] # (Auto) Seg Neutrophils % Seg Neuts % (Manual) Lymphocytes % (Manual) Nucleated RBC % Seg Neutrophils # Man Lymphocytes # (Manual) PT INR APTT D-Dimer ABG pH POC ABG pCO2 POC ABG pO2 ABG pO2 ABG HCO3 ABG Base Excess ABG Hemoglobin ABG Oxyhemoglobin ABG Potassium ABG Chloride ABG Glucose Oxyhemoglobin Carboxyhemoglobin Sodium Potassium Chloride Carbon Dioxide BUN Creatinine Glucose 101 H POC Glucose 66 L 63 L Calcium Phosphorus AST ALT Alkaline Phosphatase Lactate Dehydrogenase 212 H CK-MB (CK-2) CK-MB (CK-2) Rel Index Troponin T C-Reactive Protein 2.10 H NT-Pro-B Natriuret Pep Albumin HDL Cholesterol TSH Arterial Blood Glucose Arterial Blood Ionized Calcium Hepatitis C Antibody Crossmatch 07/19/20 07/19/20 07/19/20 06:00 06:00 16:26 WBC 3.9 L RBC 2.34 L Hgb 7.5 L Hct 23.1 L MCV 99 H RDW 18.6 H Plt Count 52 L Lymph % (Auto) [place] % (Auto) 9.4 H Lymph # (Auto) 1.0 L [place] # (Auto) Seg Neutrophils % Seg Neuts % (Manual) Lymphocytes % (Manual) Nucleated RBC % Seg Neutrophils # Man Lymphocytes # (Manual) PT INR APTT D-Dimer ABG pH POC ABG pCO2 POC ABG pO2 ABG pO2 ABG HCO3 ABG Base Excess ABG Hemoglobin ABG Oxyhemoglobin ABG Potassium ABG Chloride ABG Glucose Oxyhemoglobin Carboxyhemoglobin Sodium Potassium 5.3 H Chloride 115.8 H Carbon Dioxide BUN 52 H Creatinine 3.4 H Glucose 114 H POC Glucose 123 H Calcium 7.7 L Phosphorus AST 77 H ALT < 5 L Alkaline Phosphatase 678 H Lactate Dehydrogenase CK-MB (CK-2) CK-MB (CK-2) Rel Index Troponin T C-Reactive Protein NT-Pro-B Natriuret Pep Albumin 2.2 L HDL Cholesterol TSH Arterial Blood Glucose Arterial Blood Ionized Calcium Hepatitis C Antibody Crossmatch 07/19/20 07/20/20 07/20/20 21:20 08:25 08:25 WBC 3.6 L RBC 2.54 L Hgb 8.0 L Hct 24.6 L MCV 97 H RDW 18.0 H Plt Count 47 L Lymph % (Auto) [place] % (Auto) 9.8 H Lymph # (Auto) 0.9 L [place] # (Auto) Seg Neutrophils % Seg Neuts % (Manual) Lymphocytes % (Manual) Nucleated RBC % Seg Neutrophils # Man Lymphocytes # (Manual) PT INR APTT D-Dimer ABG pH POC ABG pCO2 POC ABG pO2 ABG pO2 ABG HCO3 ABG Base Excess ABG Hemoglobin ABG Oxyhemoglobin ABG Potassium ABG Chloride ABG Glucose Oxyhemoglobin Carboxyhemoglobin Sodium Potassium 5.4 H Chloride 115.8 H Carbon Dioxide BUN 56 H Creatinine 3.8 H Glucose 110 H POC Glucose 142 H Calcium 7.9 L Phosphorus AST ALT Alkaline Phosphatase Lactate Dehydrogenase CK-MB (CK-2) CK-MB (CK-2) Rel Index Troponin T C-Reactive Protein NT-Pro-B Natriuret Pep Albumin HDL Cholesterol TSH Arterial Blood Glucose Arterial Blood Ionized Calcium Hepatitis C Antibody Crossmatch 07/20/20 07/20/20 07/20/20 11:27 16:34 21:27 WBC RBC Hgb Hct MCV RDW Plt Count Lymph % (Auto) [place] % (Auto) Lymph # (Auto) [place] # (Auto) Seg Neutrophils % Seg Neuts % (Manual) Lymphocytes % (Manual) Nucleated RBC % Seg Neutrophils # Man Lymphocytes # (Manual) PT INR APTT D-Dimer ABG pH POC ABG pCO2 POC ABG pO2 ABG pO2 ABG HCO3 ABG Base Excess ABG Hemoglobin ABG Oxyhemoglobin ABG Potassium ABG Chloride ABG Glucose Oxyhemoglobin Carboxyhemoglobin Sodium Potassium Chloride Carbon Dioxide BUN Creatinine Glucose POC Glucose 136 H 186 H 175 H Calcium Phosphorus AST ALT Alkaline Phosphatase Lactate Dehydrogenase CK-MB (CK-2) CK-MB (CK-2) Rel Index Troponin T C-Reactive Protein NT-Pro-B Natriuret Pep Albumin HDL Cholesterol TSH Arterial Blood Glucose Arterial Blood Ionized Calcium Hepatitis C Antibody Crossmatch 07/21/20 07/22/20 07/22/20 10:31 07:25 10:30 WBC 3.8 L RBC 2.53 L Hgb 7.9 L Hct 24.7 L MCV 98 H RDW 18.7 H Plt Count 35 L Lymph % (Auto) [place] % (Auto) Lymph # (Auto) [place] # (Auto) Seg Neutrophils % Seg Neuts % (Manual) 92.0 H Lymphocytes % (Manual) 6.0 L Nucleated RBC % 13.0 H Seg Neutrophils # Man Lymphocytes # (Manual) 0.2 L PT INR APTT D-Dimer ABG pH POC ABG pCO2 POC ABG pO2 ABG pO2 ABG HCO3 ABG Base Excess ABG Hemoglobin ABG Oxyhemoglobin ABG Potassium ABG Chloride ABG Glucose Oxyhemoglobin Carboxyhemoglobin Sodium Potassium 5.3 H 5.6 H Chloride 115.0 H 115.1 H Carbon Dioxide 18 L BUN 59 H 61 H Creatinine 4.3 H 4.6 H Glucose 109 H POC Glucose Calcium 7.6 L 7.6 L Phosphorus AST ALT Alkaline Phosphatase Lactate Dehydrogenase CK-MB (CK-2) CK-MB (CK-2) Rel Index Troponin T C-Reactive Protein NT-Pro-B Natriuret Pep Albumin HDL Cholesterol TSH Arterial Blood Glucose Arterial Blood Ionized Calcium Hepatitis C Antibody Crossmatch 07/22/20 07/22/20 07/22/20 10:30 10:30 10:30 WBC RBC Hgb Hct MCV RDW Plt Count Lymph % (Auto) [place] % (Auto) Lymph # (Auto) [place] # (Auto) Seg Neutrophils % Seg Neuts % (Manual) Lymphocytes % (Manual) Nucleated RBC % Seg Neutrophils # Man Lymphocytes # (Manual) PT 15.9 H INR 1.27 H APTT 38.3 H D-Dimer ABG pH POC ABG pCO2 POC ABG pO2 ABG pO2 ABG HCO3 ABG Base Excess ABG Hemoglobin ABG Oxyhemoglobin ABG Potassium ABG Chloride ABG Glucose Oxyhemoglobin Carboxyhemoglobin Sodium 146 H Potassium 5.4 H Chloride 116.4 H Carbon Dioxide BUN 61 H Creatinine 4.6 H Glucose 115 H POC Glucose Calcium 7.5 L Phosphorus 5.80 H AST 66 H ALT < 5 L Alkaline Phosphatase 604 H Lactate Dehydrogenase CK-MB (CK-2) 10.9 H CK-MB (CK-2) Rel Index 16.2 H Troponin T 0.047 H C-Reactive Protein NT-Pro-B Natriuret Pep Albumin 2.1 L HDL Cholesterol TSH Arterial Blood Glucose Arterial Blood Ionized Calcium Hepatitis C Antibody Crossmatch 07/22/20 07/23/20 07/23/20 11:10 03:38 03:47 WBC RBC Hgb Hct MCV RDW Plt Count Lymph % (Auto) [place] % (Auto) Lymph # (Auto) [place] # (Auto) Seg Neutrophils % Seg Neuts % (Manual) Lymphocytes % (Manual) Nucleated RBC % Seg Neutrophils # Man Lymphocytes # (Manual) PT INR APTT D-Dimer ABG pH 7.203 L POC ABG pCO2 48.7 H 29.7 L POC ABG pO2 80.6 L 267.3 H ABG pO2 ABG HCO3 ABG Base Excess ABG Hemoglobin 8.6 L 8.2 L ABG Oxyhemoglobin 91.1 L 98.2 H ABG Potassium 5.4 H 5.4 H ABG Chloride 122.0 H 122.0 H ABG Glucose 105 H 101 H Oxyhemoglobin Carboxyhemoglobin 2.0 H Sodium Potassium Chloride Carbon Dioxide BUN Creatinine Glucose POC Glucose 65 L Calcium Phosphorus AST ALT Alkaline Phosphatase Lactate Dehydrogenase CK-MB (CK-2) CK-MB (CK-2) Rel Index Troponin T C-Reactive Protein NT-Pro-B Natriuret Pep Albumin HDL Cholesterol TSH Arterial Blood Glucose 105 H 101 H Arterial Blood Ionized Calcium 4.5 L 4.4 L Hepatitis C Antibody Crossmatch 07/23/20 07/23/20 07/23/20 06:05 06:05 06:27 WBC RBC 2.36 L Hgb 7.5 L Hct 22.7 L MCV 96 H RDW 18.9 H Plt Count 42 L Lymph % (Auto) [place] % (Auto) Lymph # (Auto) [place] # (Auto) Seg Neutrophils % Seg Neuts % (Manual) Lymphocytes % (Manual) Nucleated RBC % Seg Neutrophils # Man Lymphocytes # (Manual) PT INR APTT D-Dimer ABG pH POC ABG pCO2 POC ABG pO2 ABG pO2 ABG HCO3 ABG Base Excess ABG Hemoglobin ABG Oxyhemoglobin ABG Potassium ABG Chloride ABG Glucose Oxyhemoglobin Carboxyhemoglobin Sodium Potassium 5.6 H Chloride 114.1 H Carbon Dioxide 17 L BUN 62 H Creatinine 5.1 H Glucose 215 H POC Glucose 114 H Calcium 7.3 L Phosphorus AST ALT Alkaline Phosphatase Lactate Dehydrogenase CK-MB (CK-2) CK-MB (CK-2) Rel Index Troponin T C-Reactive Protein NT-Pro-B Natriuret Pep Albumin HDL Cholesterol TSH Arterial Blood Glucose Arterial Blood Ionized Calcium Hepatitis C Antibody Crossmatch 07/23/20 07/23/20 07/24/20 11:36 19:20 04:00 WBC RBC Hgb Hct MCV RDW Plt Count Lymph % (Auto) [place] % (Auto) Lymph # (Auto) [place] # (Auto) Seg Neutrophils % Seg Neuts % (Manual) Lymphocytes % (Manual) Nucleated RBC % Seg Neutrophils # Man Lymphocytes # (Manual) PT INR APTT D-Dimer ABG pH POC ABG pCO2 POC ABG pO2 ABG pO2 ABG HCO3 ABG Base Excess ABG Hemoglobin ABG Oxyhemoglobin ABG Potassium ABG Chloride ABG Glucose Oxyhemoglobin Carboxyhemoglobin Sodium Potassium Chloride 110.8 H Carbon Dioxide BUN 47 H Creatinine 4.4 H Glucose POC Glucose 66 L Calcium 7.3 L Phosphorus AST ALT Alkaline Phosphatase Lactate Dehydrogenase CK-MB (CK-2) CK-MB (CK-2) Rel Index Troponin T C-Reactive Protein NT-Pro-B Natriuret Pep Albumin HDL Cholesterol TSH Arterial Blood Glucose Arterial Blood Ionized Calcium Hepatitis C Antibody Reactive A Crossmatch 07/24/20 07/24/20 07/24/20 04:25 11:37 Unknown WBC RBC 2.36 L Hgb 7.5 L Hct 22.5 L MCV 95 H RDW 18.4 H Plt Count 38 L Lymph % (Auto) [place] % (Auto) Lymph # (Auto) [place] # (Auto) Seg Neutrophils % Seg Neuts % (Manual) Lymphocytes % (Manual) Nucleated RBC % Seg Neutrophils # Man Lymphocytes # (Manual) PT INR APTT D-Dimer ABG pH POC ABG pCO2 POC ABG pO2 64.8 L ABG pO2 ABG HCO3 ABG Base Excess ABG Hemoglobin 7.9 L ABG Oxyhemoglobin ABG Potassium ABG Chloride 114.0 H ABG Glucose Oxyhemoglobin Carboxyhemoglobin Sodium Potassium Chloride Carbon Dioxide BUN Creatinine Glucose POC Glucose 109 H Calcium Phosphorus AST ALT Alkaline Phosphatase Lactate Dehydrogenase CK-MB (CK-2) CK-MB (CK-2) Rel Index Troponin T C-Reactive Protein NT-Pro-B Natriuret Pep Albumin HDL Cholesterol TSH Arterial Blood Glucose Arterial Blood Ionized Calcium 4.2 L Hepatitis C Antibody Crossmatch 07/25/20 07/25/20 07/25/20 00:12 03:57 04:00 WBC RBC Hgb Hct MCV RDW Plt Count Lymph % (Auto) [place] % (Auto) Lymph # (Auto) [place] # (Auto) Seg Neutrophils % Seg Neuts % (Manual) Lymphocytes % (Manual) Nucleated RBC % Seg Neutrophils # Man Lymphocytes # (Manual) PT INR APTT D-Dimer ABG pH 7.497 H POC ABG pCO2 POC ABG pO2 62.7 L ABG pO2 ABG HCO3 ABG Base Excess ABG Hemoglobin 8.5 L ABG Oxyhemoglobin 90.1 L ABG Potassium ABG Chloride 110.0 H ABG Glucose 157 H Oxyhemoglobin Carboxyhemoglobin Sodium Potassium Chloride Carbon Dioxide BUN 38 H Creatinine 4.1 H Glucose 160 H POC Glucose 140 H Calcium 7.9 L Phosphorus AST ALT Alkaline Phosphatase Lactate Dehydrogenase CK-MB (CK-2) CK-MB (CK-2) Rel Index Troponin T C-Reactive Protein NT-Pro-B Natriuret Pep Albumin HDL Cholesterol TSH Arterial Blood Glucose 157 H Arterial Blood Ionized Calcium 4.3 L Hepatitis C Antibody Crossmatch 07/25/20 07/25/20 07/25/20 04:00 06:24 12:11 WBC RBC 2.48 L Hgb 7.7 L Hct 23.2 L MCV RDW 18.4 H Plt Count 44 L Lymph % (Auto) [place] % (Auto) 8.5 H Lymph # (Auto) [place] # (Auto) Seg Neutrophils % 76.7 H Seg Neuts % (Manual) Lymphocytes % (Manual) Nucleated RBC % Seg Neutrophils # Man Lymphocytes # (Manual) PT INR APTT D-Dimer ABG pH POC ABG pCO2 POC ABG pO2 ABG pO2 ABG HCO3 ABG Base Excess ABG Hemoglobin ABG Oxyhemoglobin ABG Potassium ABG Chloride ABG Glucose Oxyhemoglobin Carboxyhemoglobin Sodium Potassium Chloride Carbon Dioxide BUN Creatinine Glucose POC Glucose 155 H 205 H Calcium Phosphorus AST ALT Alkaline Phosphatase Lactate Dehydrogenase CK-MB (CK-2) CK-MB (CK-2) Rel Index Troponin T C-Reactive Protein NT-Pro-B Natriuret Pep Albumin HDL Cholesterol TSH Arterial Blood Glucose Arterial Blood Ionized Calcium Hepatitis C Antibody Crossmatch 07/25/20 07/26/20 07/26/20 17:41 00:18 03:54 WBC RBC Hgb Hct MCV RDW Plt Count Lymph % (Auto) [place] % (Auto) Lymph # (Auto) [place] # (Auto) Seg Neutrophils % Seg Neuts % (Manual) Lymphocytes % (Manual) Nucleated RBC % Seg Neutrophils # Man Lymphocytes # (Manual) PT INR APTT D-Dimer ABG pH 7.512 H POC ABG pCO2 POC ABG pO2 ABG pO2 121.2 H ABG HCO3 27.1 H ABG Base Excess 3.6 H ABG Hemoglobin < 5.1 L ABG Oxyhemoglobin ABG Potassium ABG Chloride ABG Glucose Oxyhemoglobin Carboxyhemoglobin Sodium Potassium Chloride Carbon Dioxide BUN Creatinine Glucose POC Glucose 227 H 198 H Calcium Phosphorus AST ALT Alkaline Phosphatase Lactate Dehydrogenase CK-MB (CK-2) CK-MB (CK-2) Rel Index Troponin T C-Reactive Protein NT-Pro-B Natriuret Pep Albumin HDL Cholesterol TSH Arterial Blood Glucose Arterial Blood Ionized Calcium Hepatitis C Antibody Crossmatch 07/26/20 07/26/20 07/26/20 06:31 07:00 12:09 WBC RBC 2.33 L Hgb 7.4 L Hct 21.6 L MCV RDW 18.0 H Plt Count 50 L Lymph % (Auto) 13.0 L [place] % (Auto) Lymph # (Auto) [place] # (Auto) Seg Neutrophils % 79.8 H Seg Neuts % (Manual) Lymphocytes % (Manual) Nucleated RBC % Seg Neutrophils # Man Lymphocytes # (Manual) PT INR APTT D-Dimer ABG pH POC ABG pCO2 POC ABG pO2 ABG pO2 ABG HCO3 ABG Base Excess ABG Hemoglobin ABG Oxyhemoglobin ABG Potassium ABG Chloride ABG Glucose Oxyhemoglobin Carboxyhemoglobin Sodium Potassium Chloride Carbon Dioxide BUN Creatinine Glucose POC Glucose 223 H 250 H Calcium Phosphorus AST ALT Alkaline Phosphatase Lactate Dehydrogenase CK-MB (CK-2) CK-MB (CK-2) Rel Index Troponin T C-Reactive Protein NT-Pro-B Natriuret Pep Albumin HDL Cholesterol TSH Arterial Blood Glucose Arterial Blood Ionized Calcium Hepatitis C Antibody Crossmatch 07/26/20 07/26/20 07/27/20 17:40 23:26 05:20 WBC RBC Hgb Hct MCV RDW Plt Count Lymph % (Auto) [place] % (Auto) Lymph # (Auto) [place] # (Auto) Seg Neutrophils % Seg Neuts % (Manual) Lymphocytes % (Manual) Nucleated RBC % Seg Neutrophils # Man Lymphocytes # (Manual) PT INR APTT D-Dimer ABG pH 7.520 H POC ABG pCO2 POC ABG pO2 ABG pO2 64.2 L ABG HCO3 26.8 H ABG Base Excess 3.7 H ABG Hemoglobin 7.2 L ABG Oxyhemoglobin ABG Potassium ABG Chloride ABG Glucose Oxyhemoglobin 93.2 L Carboxyhemoglobin Sodium Potassium Chloride Carbon Dioxide BUN Creatinine Glucose POC Glucose 226 H 176 H Calcium Phosphorus AST ALT Alkaline Phosphatase Lactate Dehydrogenase CK-MB (CK-2) CK-MB (CK-2) Rel Index Troponin T C-Reactive Protein NT-Pro-B Natriuret Pep Albumin HDL Cholesterol TSH Arterial Blood Glucose Arterial Blood Ionized Calcium Hepatitis C Antibody Crossmatch 07/27/20 07/27/20 07/27/20 05:42 06:36 06:36 WBC RBC 2.23 L Hgb 7.0 L Hct 20.7 L MCV RDW 18.4 H Plt Count 56 L Lymph % (Auto) [place] % (Auto) Lymph # (Auto) [place] # (Auto) Seg Neutrophils % Seg Neuts % (Manual) 88.0 H Lymphocytes % (Manual) 11.0 L Nucleated RBC % 2.0 H Seg Neutrophils # Man 8.9 H Lymphocytes # (Manual) 1.1 L PT INR APTT D-Dimer ABG pH POC ABG pCO2 POC ABG pO2 ABG pO2 ABG HCO3 ABG Base Excess ABG Hemoglobin ABG Oxyhemoglobin ABG Potassium ABG Chloride ABG Glucose Oxyhemoglobin Carboxyhemoglobin Sodium Potassium Chloride Carbon Dioxide BUN 43 H Creatinine 4.4 H Glucose 162 H POC Glucose 142 H Calcium 8.2 L Phosphorus AST ALT Alkaline Phosphatase Lactate Dehydrogenase CK-MB (CK-2) CK-MB (CK-2) Rel Index Troponin T C-Reactive Protein NT-Pro-B Natriuret Pep Albumin HDL Cholesterol TSH Arterial Blood Glucose Arterial Blood Ionized Calcium Hepatitis C Antibody Crossmatch 07/27/20 07/27/20 07/27/20 11:42 17:37 23:15 WBC RBC Hgb Hct MCV RDW Plt Count Lymph % (Auto) [place] % (Auto) Lymph # (Auto) [place] # (Auto) Seg Neutrophils % Seg Neuts % (Manual) Lymphocytes % (Manual) Nucleated RBC % Seg Neutrophils # Man Lymphocytes # (Manual) PT INR APTT D-Dimer ABG pH POC ABG pCO2 POC ABG pO2 ABG pO2 ABG HCO3 ABG Base Excess ABG Hemoglobin ABG Oxyhemoglobin ABG Potassium ABG Chloride ABG Glucose Oxyhemoglobin Carboxyhemoglobin Sodium Potassium Chloride Carbon Dioxide BUN Creatinine Glucose POC Glucose 134 H 169 H 173 H Calcium Phosphorus AST ALT Alkaline Phosphatase Lactate Dehydrogenase CK-MB (CK-2) CK-MB (CK-2) Rel Index Troponin T C-Reactive Protein NT-Pro-B Natriuret Pep Albumin HDL Cholesterol TSH Arterial Blood Glucose Arterial Blood Ionized Calcium Hepatitis C Antibody Crossmatch 07/28/20 07/28/20 07/28/20 04:00 05:14 10:15 WBC RBC 2.13 L Hgb 6.8 L Hct 19.9 L* MCV RDW 18.4 H Plt Count 55 L Lymph % (Auto) [place] % (Auto) 9.1 H Lymph # (Auto) [place] # (Auto) 0.9 H Seg Neutrophils % 74.5 H Seg Neuts % (Manual) Lymphocytes % (Manual) Nucleated RBC % Seg Neutrophils # Man Lymphocytes # (Manual) PT INR APTT D-Dimer ABG pH POC ABG pCO2 POC ABG pO2 ABG pO2 ABG HCO3 ABG Base Excess ABG Hemoglobin ABG Oxyhemoglobin ABG Potassium ABG Chloride ABG Glucose Oxyhemoglobin Carboxyhemoglobin Sodium Potassium Chloride Carbon Dioxide BUN Creatinine Glucose POC Glucose 169 H Calcium Phosphorus AST ALT Alkaline Phosphatase Lactate Dehydrogenase CK-MB (CK-2) CK-MB (CK-2) Rel Index Troponin T C-Reactive Protein NT-Pro-B Natriuret Pep Albumin HDL Cholesterol TSH Arterial Blood Glucose Arterial Blood Ionized Calcium Hepatitis C Antibody Crossmatch See Detail 07/28/20 07/28/20 07/28/20 11:32 17:28 23:58 WBC RBC Hgb Hct MCV RDW Plt Count Lymph % (Auto) [place] % (Auto) Lymph # (Auto) [place] # (Auto) Seg Neutrophils % Seg Neuts % (Manual) Lymphocytes % (Manual) Nucleated RBC % Seg Neutrophils # Man Lymphocytes # (Manual) PT INR APTT D-Dimer ABG pH POC ABG pCO2 POC ABG pO2 ABG pO2 ABG HCO3 ABG Base Excess ABG Hemoglobin ABG Oxyhemoglobin ABG Potassium ABG Chloride ABG Glucose Oxyhemoglobin Carboxyhemoglobin Sodium Potassium Chloride Carbon Dioxide BUN Creatinine Glucose POC Glucose 185 H 208 H 227 H Calcium Phosphorus AST ALT Alkaline Phosphatase Lactate Dehydrogenase CK-MB (CK-2) CK-MB (CK-2) Rel Index Troponin T C-Reactive Protein NT-Pro-B Natriuret Pep Albumin HDL Cholesterol TSH Arterial Blood Glucose Arterial Blood Ionized Calcium Hepatitis C Antibody Crossmatch 07/29/20 07/29/20 07/29/20 05:37 12:04 17:11 WBC RBC Hgb Hct MCV RDW Plt Count Lymph % (Auto) [place] % (Auto) Lymph # (Auto) [place] # (Auto) Seg Neutrophils % Seg Neuts % (Manual) Lymphocytes % (Manual) Nucleated RBC % Seg Neutrophils # Man Lymphocytes # (Manual) PT INR APTT D-Dimer ABG pH POC ABG pCO2 POC ABG pO2 ABG pO2 ABG HCO3 ABG Base Excess ABG Hemoglobin ABG Oxyhemoglobin ABG Potassium ABG Chloride ABG Glucose Oxyhemoglobin Carboxyhemoglobin Sodium Potassium Chloride Carbon Dioxide BUN Creatinine Glucose POC Glucose 225 H 201 H 185 H Calcium Phosphorus AST ALT Alkaline Phosphatase Lactate Dehydrogenase CK-MB (CK-2) CK-MB (CK-2) Rel Index Troponin T C-Reactive Protein NT-Pro-B Natriuret Pep Albumin HDL Cholesterol TSH Arterial Blood Glucose Arterial Blood Ionized Calcium Hepatitis C Antibody Crossmatch 07/29/20 07/30/20 07/30/20 23:48 05:38 09:05 WBC RBC 2.49 L Hgb 7.7 L Hct 23.1 L MCV RDW 20.5 H Plt Count 54 L Lymph % (Auto) [place] % (Auto) Lymph # (Auto) [place] # (Auto) Seg Neutrophils % Seg Neuts % (Manual) Lymphocytes % (Manual) Nucleated RBC % Seg Neutrophils # Man Lymphocytes # (Manual) PT INR APTT D-Dimer ABG pH POC ABG pCO2 POC ABG pO2 ABG pO2 ABG HCO3 ABG Base Excess ABG Hemoglobin ABG Oxyhemoglobin ABG Potassium ABG Chloride ABG Glucose Oxyhemoglobin Carboxyhemoglobin Sodium Potassium Chloride Carbon Dioxide BUN Creatinine Glucose POC Glucose 209 H 205 H Calcium Phosphorus AST ALT Alkaline Phosphatase Lactate Dehydrogenase CK-MB (CK-2) CK-MB (CK-2) Rel Index Troponin T C-Reactive Protein NT-Pro-B Natriuret Pep Albumin HDL Cholesterol TSH Arterial Blood Glucose Arterial Blood Ionized Calcium Hepatitis C Antibody Crossmatch 07/30/20 07/30/20 07/30/20 09:05 11:42 17:46 WBC RBC Hgb Hct MCV RDW Plt Count Lymph % (Auto) [place] % (Auto) Lymph # (Auto) [place] # (Auto) Seg Neutrophils % Seg Neuts % (Manual) Lymphocytes % (Manual) Nucleated RBC % Seg Neutrophils # Man Lymphocytes # (Manual) PT INR APTT D-Dimer ABG pH POC ABG pCO2 POC ABG pO2 ABG pO2 ABG HCO3 ABG Base Excess ABG Hemoglobin ABG Oxyhemoglobin ABG Potassium ABG Chloride ABG Glucose Oxyhemoglobin Carboxyhemoglobin Sodium 135 L Potassium Chloride Carbon Dioxide BUN 52 H Creatinine 4.1 H Glucose 236 H POC Glucose 224 H 195 H Calcium Phosphorus AST ALT Alkaline Phosphatase Lactate Dehydrogenase CK-MB (CK-2) CK-MB (CK-2) Rel Index Troponin T C-Reactive Protein NT-Pro-B Natriuret Pep Albumin HDL Cholesterol TSH Arterial Blood Glucose Arterial Blood Ionized Calcium Hepatitis C Antibody Crossmatch 07/30/20 07/30/20 07/31/20 21:09 23:45 05:10 WBC RBC 2.46 L Hgb 7.6 L Hct 22.6 L MCV RDW 19.4 H Plt Count 77 L Lymph % (Auto) [place] % (Auto) Lymph # (Auto) [place] # (Auto) Seg Neutrophils % Seg Neuts % (Manual) Lymphocytes % (Manual) Nucleated RBC % Seg Neutrophils # Man Lymphocytes # (Manual) PT INR APTT D-Dimer ABG pH POC ABG pCO2 POC ABG pO2 ABG pO2 ABG HCO3 ABG Base Excess ABG Hemoglobin ABG Oxyhemoglobin ABG Potassium ABG Chloride ABG Glucose Oxyhemoglobin Carboxyhemoglobin Sodium Potassium Chloride Carbon Dioxide BUN Creatinine Glucose POC Glucose 153 H 185 H Calcium Phosphorus AST ALT Alkaline Phosphatase Lactate Dehydrogenase CK-MB (CK-2) CK-MB (CK-2) Rel Index Troponin T C-Reactive Protein NT-Pro-B Natriuret Pep Albumin HDL Cholesterol TSH Arterial Blood Glucose Arterial Blood Ionized Calcium Hepatitis C Antibody Crossmatch 07/31/20 07/31/20 07/31/20 05:17 11:48 17:20 WBC RBC Hgb Hct MCV RDW Plt Count Lymph % (Auto) [place] % (Auto) Lymph # (Auto) [place] # (Auto) Seg Neutrophils % Seg Neuts % (Manual) Lymphocytes % (Manual) Nucleated RBC % Seg Neutrophils # Man Lymphocytes # (Manual) PT INR APTT D-Dimer ABG pH POC ABG pCO2 POC ABG pO2 ABG pO2 ABG HCO3 ABG Base Excess ABG Hemoglobin ABG Oxyhemoglobin ABG Potassium ABG Chloride ABG Glucose Oxyhemoglobin Carboxyhemoglobin Sodium Potassium Chloride Carbon Dioxide BUN Creatinine Glucose POC Glucose 163 H 144 H 133 H Calcium Phosphorus AST ALT Alkaline Phosphatase Lactate Dehydrogenase CK-MB (CK-2) CK-MB (CK-2) Rel Index Troponin T C-Reactive Protein NT-Pro-B Natriuret Pep Albumin HDL Cholesterol TSH Arterial Blood Glucose Arterial Blood Ionized Calcium Hepatitis C Antibody Crossmatch 07/31/20 08/01/20 08/01/20 23:04 05:22 05:22 WBC RBC 2.26 L Hgb 7.0 L Hct 21.0 L MCV RDW 19.6 H Plt Count 85 L Lymph % (Auto) [place] % (Auto) Lymph # (Auto) [place] # (Auto) Seg Neutrophils % Seg Neuts % (Manual) Lymphocytes % (Manual) Nucleated RBC % Seg Neutrophils # Man Lymphocytes # (Manual) PT INR APTT D-Dimer ABG pH POC ABG pCO2 POC ABG pO2 ABG pO2 ABG HCO3 ABG Base Excess ABG Hemoglobin ABG Oxyhemoglobin ABG Potassium ABG Chloride ABG Glucose Oxyhemoglobin Carboxyhemoglobin Sodium 133 L Potassium Chloride Carbon Dioxide BUN 57 H Creatinine 4.4 H Glucose 166 H POC Glucose 140 H Calcium 7.8 L Phosphorus 5.10 H AST ALT Alkaline Phosphatase Lactate Dehydrogenase CK-MB (CK-2) CK-MB (CK-2) Rel Index Troponin T C-Reactive Protein NT-Pro-B Natriuret Pep Albumin HDL Cholesterol TSH Arterial Blood Glucose Arterial Blood Ionized Calcium Hepatitis C Antibody Crossmatch 08/01/20 08/01/20 08/01/20 05:49 11:18 17:33 WBC RBC Hgb Hct MCV RDW Plt Count Lymph % (Auto) [place] % (Auto) Lymph # (Auto) [place] # (Auto) Seg Neutrophils % Seg Neuts % (Manual) Lymphocytes % (Manual) Nucleated RBC % Seg Neutrophils # Man Lymphocytes # (Manual) PT INR APTT D-Dimer ABG pH POC ABG pCO2 POC ABG pO2 ABG pO2 ABG HCO3 ABG Base Excess ABG Hemoglobin ABG Oxyhemoglobin ABG Potassium ABG Chloride ABG Glucose Oxyhemoglobin Carboxyhemoglobin Sodium Potassium Chloride Carbon Dioxide BUN Creatinine Glucose POC Glucose 154 H 128 H 133 H Calcium Phosphorus AST ALT Alkaline Phosphatase Lactate Dehydrogenase CK-MB (CK-2) CK-MB (CK-2) Rel Index Troponin T C-Reactive Protein NT-Pro-B Natriuret Pep Albumin HDL Cholesterol TSH Arterial Blood Glucose Arterial Blood Ionized Calcium Hepatitis C Antibody Crossmatch 08/01/20 08/02/20 08/02/20 21:32 05:25 05:29 WBC RBC 2.14 L Hgb 6.7 L Hct 20.0 L MCV RDW 19.4 H Plt Count 104 L Lymph % (Auto) [place] % (Auto) Lymph # (Auto) [place] # (Auto) Seg Neutrophils % Seg Neuts % (Manual) Lymphocytes % (Manual) Nucleated RBC % Seg Neutrophils # Man Lymphocytes # (Manual) PT INR APTT D-Dimer ABG pH POC ABG pCO2 POC ABG pO2 ABG pO2 ABG HCO3 ABG Base Excess ABG Hemoglobin ABG Oxyhemoglobin ABG Potassium ABG Chloride ABG Glucose Oxyhemoglobin Carboxyhemoglobin Sodium Potassium Chloride Carbon Dioxide BUN Creatinine Glucose POC Glucose 139 H 145 H Calcium Phosphorus AST ALT Alkaline Phosphatase Lactate Dehydrogenase CK-MB (CK-2) CK-MB (CK-2) Rel Index Troponin T C-Reactive Protein NT-Pro-B Natriuret Pep Albumin HDL Cholesterol TSH Arterial Blood Glucose Arterial Blood Ionized Calcium Hepatitis C Antibody Crossmatch 08/02/20 08/03/20 08/03/20 18:09 04:00 04:00 WBC 11.6 H RBC 2.20 L Hgb 6.7 L Hct 20.4 L MCV RDW 18.8 H Plt Count 127 L Lymph % (Auto) [place] % (Auto) Lymph # (Auto) [place] # (Auto) Seg Neutrophils % Seg Neuts % (Manual) Lymphocytes % (Manual) Nucleated RBC % Seg Neutrophils # Man Lymphocytes # (Manual) PT INR APTT D-Dimer ABG pH POC ABG pCO2 POC ABG pO2 ABG pO2 ABG HCO3 ABG Base Excess ABG Hemoglobin ABG Oxyhemoglobin ABG Potassium ABG Chloride ABG Glucose Oxyhemoglobin Carboxyhemoglobin Sodium Potassium Chloride Carbon Dioxide BUN Creatinine Glucose POC Glucose 141 H Calcium Phosphorus AST ALT Alkaline Phosphatase Lactate Dehydrogenase CK-MB (CK-2) CK-MB (CK-2) Rel Index Troponin T C-Reactive Protein NT-Pro-B Natriuret Pep Albumin HDL Cholesterol TSH Arterial Blood Glucose Arterial Blood Ionized Calcium Hepatitis C Antibody Crossmatch See Detail 08/03/20 08/03/20 08/03/20 04:00 05:33 09:30 WBC RBC Hgb 6.6 L Hct 19.6 L* MCV RDW Plt Count Lymph % (Auto) [place] % (Auto) Lymph # (Auto) [place] # (Auto) Seg Neutrophils % Seg Neuts % (Manual) Lymphocytes % (Manual) Nucleated RBC % Seg Neutrophils # Man Lymphocytes # (Manual) PT INR APTT D-Dimer ABG pH POC ABG pCO2 POC ABG pO2 ABG pO2 ABG HCO3 ABG Base Excess ABG Hemoglobin ABG Oxyhemoglobin ABG Potassium ABG Chloride ABG Glucose Oxyhemoglobin Carboxyhemoglobin Sodium Potassium Chloride Carbon Dioxide BUN 33 H Creatinine 2.7 H Glucose 101 H POC Glucose 117 H Calcium 8.0 L Phosphorus AST ALT Alkaline Phosphatase Lactate Dehydrogenase CK-MB (CK-2) CK-MB (CK-2) Rel Index Troponin T C-Reactive Protein NT-Pro-B Natriuret Pep Albumin HDL Cholesterol TSH Arterial Blood Glucose Arterial Blood Ionized Calcium Hepatitis C Antibody Crossmatch 08/03/20 08/03/20 08/03/20 13:07 17:10 21:18 WBC RBC Hgb Hct MCV RDW Plt Count Lymph % (Auto) [place] % (Auto) Lymph # (Auto) [place] # (Auto) Seg Neutrophils % Seg Neuts % (Manual) Lymphocytes % (Manual) Nucleated RBC % Seg Neutrophils # Man Lymphocytes # (Manual) PT INR APTT D-Dimer ABG pH POC ABG pCO2 POC ABG pO2 ABG pO2 ABG HCO3 ABG Base Excess ABG Hemoglobin ABG Oxyhemoglobin ABG Potassium ABG Chloride ABG Glucose Oxyhemoglobin Carboxyhemoglobin Sodium Potassium Chloride Carbon Dioxide BUN Creatinine Glucose POC Glucose 121 H 139 H 134 H Calcium Phosphorus AST ALT Alkaline Phosphatase Lactate Dehydrogenase CK-MB (CK-2) CK-MB (CK-2) Rel Index Troponin T C-Reactive Protein NT-Pro-B Natriuret Pep Albumin HDL Cholesterol TSH Arterial Blood Glucose Arterial Blood Ionized Calcium Hepatitis C Antibody Crossmatch 08/03/20 08/04/20 08/04/20 23:31 05:21 05:24 WBC 12.8 H RBC 2.59 L Hgb 8.0 L Hct 24.1 L MCV RDW 17.4 H Plt Count Lymph % (Auto) [place] % (Auto) Lymph # (Auto) [place] # (Auto) Seg Neutrophils % Seg Neuts % (Manual) Lymphocytes % (Manual) Nucleated RBC % Seg Neutrophils # Man Lymphocytes # (Manual) PT INR APTT D-Dimer ABG pH POC ABG pCO2 POC ABG pO2 ABG pO2 ABG HCO3 ABG Base Excess ABG Hemoglobin ABG Oxyhemoglobin ABG Potassium ABG Chloride ABG Glucose Oxyhemoglobin Carboxyhemoglobin Sodium Potassium Chloride Carbon Dioxide BUN Creatinine Glucose POC Glucose 124 H 128 H Calcium Phosphorus AST ALT Alkaline Phosphatase Lactate Dehydrogenase CK-MB (CK-2) CK-MB (CK-2) Rel Index Troponin T C-Reactive Protein NT-Pro-B Natriuret Pep Albumin HDL Cholesterol TSH Arterial Blood Glucose Arterial Blood Ionized Calcium Hepatitis C Antibody Crossmatch 08/04/20 08/04/20 08/05/20 12:31 23:22 05:35 WBC RBC 2.27 L Hgb 7.1 L Hct 21.3 L MCV RDW 17.1 H Plt Count Lymph % (Auto) [place] % (Auto) Lymph # (Auto) [place] # (Auto) Seg Neutrophils % 76.3 H Seg Neuts % (Manual) Lymphocytes % (Manual) Nucleated RBC % Seg Neutrophils # Man Lymphocytes # (Manual) PT INR APTT D-Dimer ABG pH POC ABG pCO2 POC ABG pO2 ABG pO2 ABG HCO3 ABG Base Excess ABG Hemoglobin ABG Oxyhemoglobin ABG Potassium ABG Chloride ABG Glucose Oxyhemoglobin Carboxyhemoglobin Sodium Potassium Chloride Carbon Dioxide BUN Creatinine Glucose POC Glucose 196 H 162 H Calcium Phosphorus AST ALT Alkaline Phosphatase Lactate Dehydrogenase CK-MB (CK-2) CK-MB (CK-2) Rel Index Troponin T C-Reactive Protein NT-Pro-B Natriuret Pep Albumin HDL Cholesterol TSH Arterial Blood Glucose Arterial Blood Ionized Calcium Hepatitis C Antibody Crossmatch 08/05/20 08/05/20 08/05/20 05:35 06:06 12:04 WBC RBC Hgb Hct MCV RDW Plt Count Lymph % (Auto) [place] % (Auto) Lymph # (Auto) [place] # (Auto) Seg Neutrophils % Seg Neuts % (Manual) Lymphocytes % (Manual) Nucleated RBC % Seg Neutrophils # Man Lymphocytes # (Manual) PT INR APTT D-Dimer ABG pH POC ABG pCO2 POC ABG pO2 ABG pO2 ABG HCO3 ABG Base Excess ABG Hemoglobin ABG Oxyhemoglobin ABG Potassium ABG Chloride ABG Glucose Oxyhemoglobin Carboxyhemoglobin Sodium Potassium Chloride Carbon Dioxide 31 H BUN 41 H Creatinine 3.2 H Glucose 178 H POC Glucose 166 H 173 H Calcium 7.9 L Phosphorus AST ALT Alkaline Phosphatase Lactate Dehydrogenase CK-MB (CK-2) CK-MB (CK-2) Rel Index Troponin T C-Reactive Protein NT-Pro-B Natriuret Pep Albumin HDL Cholesterol TSH Arterial Blood Glucose Arterial Blood Ionized Calcium Hepatitis C Antibody Crossmatch 08/05/20 08/05/20 08/06/20 17:42 23:31 05:53 WBC RBC 2.10 L Hgb 6.6 L Hct 20.0 L MCV RDW 17.0 H Plt Count Lymph % (Auto) [place] % (Auto) 7.5 H Lymph # (Auto) [place] # (Auto) Seg Neutrophils % 72.7 H Seg Neuts % (Manual) Lymphocytes % (Manual) Nucleated RBC % Seg Neutrophils # Man Lymphocytes # (Manual) PT INR APTT D-Dimer ABG pH POC ABG pCO2 POC ABG pO2 ABG pO2 ABG HCO3 ABG Base Excess ABG Hemoglobin ABG Oxyhemoglobin ABG Potassium ABG Chloride ABG Glucose Oxyhemoglobin Carboxyhemoglobin Sodium Potassium Chloride Carbon Dioxide BUN Creatinine Glucose POC Glucose 189 H 173 H Calcium Phosphorus AST ALT Alkaline Phosphatase Lactate Dehydrogenase CK-MB (CK-2) CK-MB (CK-2) Rel Index Troponin T C-Reactive Protein NT-Pro-B Natriuret Pep Albumin HDL Cholesterol TSH Arterial Blood Glucose Arterial Blood Ionized Calcium Hepatitis C Antibody Crossmatch 08/06/20 08/06/20 08/06/20 05:53 05:54 09:00 WBC RBC Hgb Hct MCV RDW Plt Count Lymph % (Auto) [place] % (Auto) Lymph # (Auto) [place] # (Auto) Seg Neutrophils % Seg Neuts % (Manual) Lymphocytes % (Manual) Nucleated RBC % Seg Neutrophils # Man Lymphocytes # (Manual) PT INR APTT D-Dimer ABG pH POC ABG pCO2 POC ABG pO2 ABG pO2 ABG HCO3 ABG Base Excess ABG Hemoglobin ABG Oxyhemoglobin ABG Potassium ABG Chloride ABG Glucose Oxyhemoglobin Carboxyhemoglobin Sodium Potassium Chloride Carbon Dioxide 31 H BUN 63 H Creatinine 4.3 H Glucose 138 H POC Glucose 126 H Calcium 8.3 L Phosphorus AST ALT Alkaline Phosphatase Lactate Dehydrogenase CK-MB (CK-2) CK-MB (CK-2) Rel Index Troponin T C-Reactive Protein NT-Pro-B Natriuret Pep Albumin HDL Cholesterol TSH Arterial Blood Glucose Arterial Blood Ionized Calcium Hepatitis C Antibody Crossmatch See Detail 08/06/20 08/06/20 08/06/20 11:52 17:39 23:17 WBC RBC Hgb Hct MCV RDW Plt Count Lymph % (Auto) [place] % (Auto) Lymph # (Auto) [place] # (Auto) Seg Neutrophils % Seg Neuts % (Manual) Lymphocytes % (Manual) Nucleated RBC % Seg Neutrophils # Man Lymphocytes # (Manual) PT INR APTT D-Dimer ABG pH POC ABG pCO2 POC ABG pO2 ABG pO2 ABG HCO3 ABG Base Excess ABG Hemoglobin ABG Oxyhemoglobin ABG Potassium ABG Chloride ABG Glucose Oxyhemoglobin Carboxyhemoglobin Sodium Potassium Chloride Carbon Dioxide BUN Creatinine Glucose POC Glucose 177 H 190 H 184 H Calcium Phosphorus AST ALT Alkaline Phosphatase Lactate Dehydrogenase CK-MB (CK-2) CK-MB (CK-2) Rel Index Troponin T C-Reactive Protein NT-Pro-B Natriuret Pep Albumin HDL Cholesterol TSH Arterial Blood Glucose Arterial Blood Ionized Calcium Hepatitis C Antibody Crossmatch 08/07/20 08/07/20 05:15 05:37 WBC RBC 2.37 L Hgb 7.3 L Hct 21.8 L MCV RDW 16.5 H Plt Count Lymph % (Auto) [place] % (Auto) Lymph # (Auto) [place] # (Auto) Seg Neutrophils % Seg Neuts % (Manual) Lymphocytes % (Manual) Nucleated RBC % Seg Neutrophils # Man Lymphocytes # (Manual) PT INR APTT D-Dimer ABG pH POC ABG pCO2 POC ABG pO2 ABG pO2 ABG HCO3 ABG Base Excess ABG Hemoglobin ABG Oxyhemoglobin ABG Potassium ABG Chloride ABG Glucose Oxyhemoglobin Carboxyhemoglobin Sodium Potassium Chloride Carbon Dioxide BUN Creatinine Glucose POC Glucose 173 H Calcium Phosphorus AST ALT Alkaline Phosphatase Lactate Dehydrogenase CK-MB (CK-2) CK-MB (CK-2) Rel Index Troponin T C-Reactive Protein NT-Pro-B Natriuret Pep Albumin HDL Cholesterol TSH Arterial Blood Glucose Arterial Blood Ionized Calcium Hepatitis C Antibody Crossmatch Allied health notes reviewed: nursing
--- NOTE | 2020-08-07 11:44 | Progress Note ---
<JUVENTINO MOYATori - Last Filed: 08/07/20 11:59> Assessment and Plan Assessment and plan: -08/02 MRI brain shows extensive confluent restricted diffusion in the cerebral white matter, corpus callosum, brainstem and cerebellar dentate nuclei keeping with severe global hypoxic ischemic event/injury with no hemorrhage or adverse mass-effect. -CCM/nephrology/neurology/infectious disease consulted, appreciate recommendations -HD per nephrology -VAP bundle -Trend CBC and BMP -Tube feeding/nutrition supplements -SSI, long-acting insulin -Keppra DVT prophylaxis: thrombocytopenia, no anticoagulation. Continue SCDs GI prophylaxis: PPI Dispo: ICU The high probability of a clinically significant, sudden or life threatening deterioration of the [multi] system(s) required my full and direct attention, intervention and personal management. The aggregate critical care time was [35] minutes. This time is in addition to time spent performing reported procedures but includes the following: [x] Data Review and interpretation [x] Patient assessment and monitoring of vital signs [x] Documentation [x] Medication orders and management History Interval history: This is 65-year-old male with diabetes mellitus, chronic kidney disease, CVA with residual weakness admitted to the hospitalist service with altered level consciousness and unresponsiveness. Patient started to be in sepsis secondary to MSSA bacteremia long-term antibiotics and his renal function progressively deteriorated. Patient initially refused outpatient dialysis then went into respiratory arrest requiring intubation and mechanical ventilation and was transferred to ICU. Patient family gave consent for hemodialysis and the patient remains intubated in the ICU. CCM, nephrology, cardiology and vascular surgery were consulted for care. Sepsis Acute on chronic kidney disease stage III Acute hypoxic respiratory failure NSTEMI type II Hyponatremia Anemia of chronic disease Acute toxic metabolic encephalopathy Severe protein calorie malnutrition/hypoalbuminemia Thrombocytopenia MSSA sepsis Type 2 diabetes mellitus Acute on chronic systolic congestive heart failure, EF 30 to 45% Seizure disorder CVA 07/19/2020; unable to pass Ayala catheter, consulted urology, continue supportive care, COVID-19 test negative 07/20/2020; urology evaluation recommendation noted and appreciated. Ayala catheter was inserted by urology, draining well, MSSA bacteremia on long-term antibiotics 07/21/2020; patient is lethargic, CT head without contrast, no acute abnormality, Patient is afebrile 07/22/2020; patient had acute respiratory failure this morning. EJFFERY IBARRA was called, patient was intubated on ventilatory support, pulmonary critical consulted, family patients aunt informed 07/23/2020; patient has severe bradycardia this morning, received atropine, Cardiology following. Beta-blockers held, electrolytes corrected. Patient's heart rate improved to 50s and 60s Cardiology following. Nephrology planning hemodialysis trying to get consent from family 07/24/2020; patient received hemodialysis yesterday. Remains intubated on ventilatory support. Bradycardia significantly improved heart rate in 60s. Com pleted 6 weeks of Unasyn for MSSA sepsis today 07/25/2020; patient remains on ventilatory support. Receiving HD per schedule dual. Wean as tolerated and extubate 07/26/2020; patient remains on ventilatory support, wean as tolerated and extubate. Initiated hemodialysis, HD per schedule, new set of blood culture sent 07/30: No acute events reported overnight. Patient remains unresponsive without sedation in the CT head was obtained which showed interval development of extensive hypoattenuation in the cerebral white matter, corpus callosum, globus thalami and probable indented nuclei finding likely test of global hypoxic ischemic injury with no acute hemorrhage or mass-effect. We consulted neurology and ordered an EEG for further work-up. no acute events reported overnight. He remains on MV. 07/31: PSV trials, HD per renal, bear hugger in place is unable to obtain temperature. Neurology consult and EEG pending. No acute events reported overnight. No acute events reported overnight. 08/01: This morning patient still has his giuseppe hugger in place, remains hyponatremic and hypokalemic and hypophosphatemic. Patient's H/H is 7. Patient remains on CMV 450-12-6/0.25 at the time of examination. Patient's CT head showed hypoxia/ischemic brain injury however his EEG was interpreted as normal awake and sleep pattern. Patient was given a trial dose of Narcan for CCM without improvement. Will order repeat EEG per neurology. No acute events reported overnight. 08/02: Patient had a repeat EEG which showed depressed activity and an MRI brain is pending. Patient's H/H is 6.7/20 and we will transfuse PRBC with HD to avoid volume overload. At the time of my examination patient was on CMV 450/12/6/0.25. Patient was given 1 mg Ativan for relaxation to better assess source of bloody secretions in mouth. 08/03: MRI of brain pending, hemoglobin remained at 6.7 and patient will be tr ansfused 1 unit PRBC today with hemodialysis we will obtain a posttransfusion H/H. At the time my examination patient remains on CMV 450/12/6/0.40 with no improvement to neuro status. 08/04/2020; MRI of the brain was done but reading is pending. He was transfused a unit of blood and hemoglobin this morning was 8. Patient has low-grade fever. Neurology is following. Prognosis very poor 08/05/2020;MRI of the brain was done but reading is pending. He was transfused a unit of blood and hemoglobin this morning was 8. Patient has low-grade fever. Neurology is following. Prognosis very poor 08/06: MRI brain was read which is consistent with anoxic brain injury, CCM had a conversation with the patient's family regarding goals of care. Patient remains on CMV 450/12/6/0.40 and received 1 unit of PRBC with HD today as H/H was 6.6/20. 08/07: Patient is on CPAP trail and has no acute events overnight. Daughter is to visit today at bedside. Hospitalist Physical - Constitutional Vitals: Temp Pulse Resp BP Pulse Ox 97.9 F 74 18 114/70 100 08/07/20 09:49 08/07/20 11:00 08/07/20 11:00 08/07/20 11:00 08/07/20 11:00 General appearance: Present: no acute distress, well-nourished - EENT Eyes: Present: PERRL ENT: poor dentition - Neck Neck: Absent: carotid bruits - Respiratory Respiratory effort: normal Respiratory: bilateral: diminished - Cardiovascular Rhythm: regular Heart Sounds: Present: S1 & S2. Absent: systolic murmur, diastolic murmur - Extremities Extremities: no ischemia, pulses intact, pulses symmetrical, normal temperature, normal color Extremity abnormal: edema Peripheral Pulses: within normal limits - Abdominal General gastrointestinal: soft, non-tender, non-distended, normal bowel sounds - Integumentary Integumentary: Present: warm, dry - Psychiatric Psychiatric: cooperative HEART Score - HEART Score Troponin: Troponin T 0.047 ng/mL (0.00-0.029) H 07/22/20 10:30 Results - Labs CBC & Chem 7: 08/07/20 05:15 08/06/20 05:53 Labs: Laboratory Last Values WBC 7.2 K/mm3 (4.5-11.0) 08/07/20 05:15 RBC 2.37 M/mm3 (3.65-5.03) L 08/07/20 05:15 Hgb 7.3 gm/dl (11.8-15.2) L 08/07/20 05:15 Hct 21.8 % (35.5-45.6) L 08/07/20 05:15 MCV 92 fl (84-94) 08/07/20 05:15 MCH 31 pg (28-32) 08/07/20 05:15 MCHC 34 % (32-34) 08/07/20 05:15 RDW 16.5 % (13.2-15.2) H 08/07/20 05:15 Plt Count 172 K/mm3 (140-440) 08/07/20 05:15 Lymph % (Auto) 17.8 % (13.4-35.0) 08/06/20 05:53 [place] % (Auto) 7.5 % (0.0-7.3) H 08/06/20 05:53 Eos % (Auto) 1.3 % (0.0-4.3) 08/06/20 05:53 Baso % (Auto) 0.7 % (0.0-1.8) 08/06/20 05:53 Lymph # (Auto) 1.6 K/mm3 (1.2-5.4) 08/06/20 05:53 [place] # (Auto) 0.7 K/mm3 (0.0-0.8) 08/06/20 05:53 Eos # (Auto) 0.1 K/mm3 (0.0-0.4) 08/06/20 05:53 Baso # (Auto) 0.1 K/mm3 (0.0-0.1) 08/06/20 05:53 Add Manual Diff Complete 07/27/20 06:36 Total Counted 100 07/27/20 06:36 Seg Neutrophils % 72.7 % (40.0-70.0) H 08/06/20 05:53 Seg Neuts % (Manual) 88.0 % (40.0-70.0) H 07/27/20 06:36 Lymphocytes % (Manual) 11.0 % (13.4-35.0) L 07/27/20 06:36 Monocytes % (Manual) 1.0 % (0.0-7.3) 07/27/20 06:36 Nucleated RBC % 2.0 % (0.0-0.9) H 07/27/20 06:36 Seg Neutrophils # 6.7 K/mm3 (1.8-7.7) 08/06/20 05:53 Seg Neutrophils # Man 8.9 K/mm3 (1.8-7.7) H 07/27/20 06:36 Band Neutrophils # 0.0 K/mm3 07/27/20 06:36 Lymphocytes # (Manual) 1.1 K/mm3 (1.2-5.4) L 07/27/20 06:36 Abs React Lymphs (Man) 0.0 K/mm3 07/27/20 06:36 Monocytes # (Manual) 0.1 K/mm3 (0.0-0.8) 07/27/20 06:36 Eosinophils # (Manual) 0.0 K/mm3 (0.0-0.4) 07/27/20 06:36 Basophils # (Manual) 0.0 K/mm3 (0.0-0.1) 07/27/20 06:36 Metamyelocytes # 0.0 K/mm3 07/27/20 06:36 Myelocytes # 0.0 K/mm3 07/27/20 06:36 Promyelocytes # 0.0 K/mm3 07/27/20 06:36 Blast Cells # 0.0 K/mm3 07/27/20 06:36 WBC Morphology Not Reportable 07/27/20 06:36 Hypersegmented Neuts Not Reportable 07/27/20 06:36 Hyposegmented Neuts Not Reportable 07/27/20 06:36 Hypogranular Neuts Not Reportable 07/27/20 06:36 Smudge Cells Not Reportable 07/27/20 06:36 Toxic Granulation Not Reportable 07/27/20 06:36 Toxic Vacuolation Not Reportable 07/27/20 06:36 Dohle Bodies Not Reportable 07/27/20 06:36 Pelger-Huet Anomaly Not Reportable 07/27/20 06:36 Clint Rods Not Reportable 07/27/20 06:36 Platelet Estimate Consistent w auto 07/27/20 06:36 Clumped Platelets Not Reportable 07/27/20 06:36 Plt Clumps, EDTA Not Reportable 07/27/20 06:36 Large Platelets Not Reportable 07/27/20 06:36 Giant Platelets Not Reportable 07/27/20 06:36 Platelet Satelliting Not Reportable 07/27/20 06:36 Plt Morphology Comment Not Reportable 07/27/20 06:36 RBC Morphology Not Reportable 07/27/20 06:36 Dimorphic RBCs Not Reportable 07/27/20 06:36 Polychromasia Not Reportable 07/27/20 06:36 Hypochromasia Not Reportable 07/27/20 06:36 Poikilocytosis Not Reportable 07/27/20 06:36 Anisocytosis Few 07/27/20 06:36 Microcytosis Not Reportable 07/27/20 06:36 Macrocytosis Not Reportable 07/27/20 06:36 Spherocytes Not Reportable 07/27/20 06:36 Pappenheimer Bodies Not Reportable 07/27/20 06:36 Sickle Cells Not Reportable 07/27/20 06:36 Target Cells Not Reportable 07/27/20 06:36 Tear Drop Cells Not Reportable 07/27/20 06:36 Ovalocytes Not Reportable 07/27/20 06:36 Helmet Cells Not Reportable 07/27/20 06:36 [place] Bodies Not Reportable 07/27/20 06:36 [place] Rings Not Reportable 07/27/20 06:36 Sae Cells Not Reportable 07/27/20 06:36 Bite Cells Not Reportable 07/27/20 06:36 Crenated Cell Not Reportable 07/27/20 06:36 Elliptocytes Not Reportable 07/27/20 06:36 Acanthocytes (Spur) Not Reportable 07/27/20 06:36 Rouleaux Not Reportable 07/27/20 06:36 Hemoglobin C Crystals Not Reportable 07/27/20 06:36 Schistocytes Rare 07/27/20 06:36 Malaria parasites Not Reportable 07/27/20 06:36 Carl Bodies Not Reportable 07/27/20 06:36 Hem Pathologist Commnt No 07/27/20 06:36 PT 15.9 Sec. (12.2-14.9) H 07/22/20 10:30 INR 1.27 (0.87-1.13) H 07/22/20 10:30 APTT 38.3 Sec. (24.2-36.6) H 07/22/20 10:30 D-Dimer 1036.46 ng/mlDDU (0-234) H 07/18/20 08:56 Heparin Anti-Xa, Unfract Negative (Negative) 07/23/20 08:54 ABG pH 7.520 pH Units (7.350-7.450) H 07/27/20 05:20 POC ABG pCO2 32.7 mmHg (32.0-48.0) 07/25/20 03:57 ABG pCO2 33.5 mm Hg 07/27/20 05:20 POC ABG pO2 62.7 mmHg (83-108) L 07/25/20 03:57 ABG pO2 64.2 mm Hg (80.0-90.0) L 07/27/20 05:20 POC ABG HCO3 24.8 07/25/20 03:57 ABG HCO3 26.8 mmol/L (20.0-26.0) H 07/27/20 05:20 ABG O2 Saturation 95.8 % (95.0-99.0) 07/27/20 05:20 ABG O2 Content 9.5 (0.0-44) 07/27/20 05:20 POC ABG Base Excess 1.7 07/25/20 03:57 ABG Base Excess 3.7 mmol/L (-2.0-3.0) H 07/27/20 05:20 ABG Hemoglobin 7.2 gm/dl (14.0-18.0) L 07/27/20 05:20 ABG Oxyhemoglobin 90.1 (94-98) L 07/25/20 03:57 ABG Carboxyhemoglobin 2.3 % (0.0-5.0) 07/27/20 05:20 ABG Methemoglobin 0.5 % (0.0-1.5) 07/27/20 05:20 ABG Sodium 138.7 mmol/L (136.0-145.0) 07/25/20 03:57 ABG Potassium 4.0 mmol/L (3.40-4.50) 07/25/20 03:57 ABG Chloride 110.0 mmol/L (98-107) H 07/25/20 03:57 ABG Glucose 157 mg/dL (65-95) H 07/25/20 03:57 Oxyhemoglobin 93.2 % (95.0-99.0) L 07/27/20 05:20 Carboxyhemoglobin 1.1 (0.5-1.5) 07/25/20 03:57 FiO2 25 % 07/27/20 05:20 FiO2 % 40 07/25/20 03:57 Sodium 138 mmol/L (137-145) 08/06/20 05:53 Potassium 4.0 mmol/L (3.6-5.0) 08/06/20 05:53 Chloride 98.1 mmol/L (98-107) 08/06/20 05:53 Carbon Dioxide 31 mmol/L (22-30) H 08/06/20 05:53 Anion Gap 13 mmol/L 08/06/20 05:53 BUN 63 mg/dL (9-20) H 08/06/20 05:53 Creatinine 4.3 mg/dL (0.8-1.3) H 08/06/20 05:53 Estimated GFR 17 ml/min 08/06/20 05:53 BUN/Creatinine Ratio 15 % 08/06/20 05:53 Glucose 138 mg/dL (75-100) H 08/06/20 05:53 POC Glucose 173 mg/dL (70-105) H 08/07/20 05:37 Lactic Acid 0.80 mmol/L (0.7-2.0) 07/18/20 08:56 Calcium 8.3 mg/dL (8.4-10.2) L 08/06/20 05:53 Phosphorus 3.40 mg/dL (2.5-4.5) 08/03/20 04:00 Magnesium 1.80 mg/dL (1.7-2.3) 08/03/20 04:00 Ferritin 198.6 ng/mL (30.0-300.0) 07/18/20 10:36 Total Bilirubin 0.30 mg/dL (0.1-1.2) 07/22/20 10:30 Direct Bilirubin 0.2 mg/dL (0-0.2) 07/19/20 06:00 Indirect Bilirubin 0.2 mg/dL 07/19/20 06:00 AST 66 units/L (5-40) H 07/22/20 10:30 ALT < 5 units/L (7-56) L 07/22/20 10:30 Alkaline Phosphatase 604 units/L (35-129) H 07/22/20 10:30 Ammonia 41.0 umol/L (25-60) 07/18/20 08:56 Lactate Dehydrogenase 212 units/L (91-180) H 07/18/20 10:36 Total Creatine Kinase 67 units/L (55-170) 07/22/20 10:30 CK-MB (CK-2) 10.9 ng/mL (0.0-4.0) H 07/22/20 10:30 CK-MB (CK-2) Rel Index 16.2 (0-4) H 07/22/20 10:30 Troponin T 0.047 ng/mL (0.00-0.029) H 07/22/20 10:30 C-Reactive Protein 2.10 mg/dL (0.00-1.30) H 07/18/20 10:36 NT-Pro-B Natriuret Pep 4777 pg/mL (0-900) H 07/18/20 08:56 Total Protein 6.4 g/dL (6.3-8.2) 07/22/20 10:30 Albumin 2.1 g/dL (3.9-5) L 07/22/20 10:30 Albumin/Globulin Ratio 0.5 % 07/22/20 10:30 Triglycerides 65 mg/dL (2-149) 07/18/20 08:56 Cholesterol 157 mg/dL (50-199) 07/18/20 08:56 LDL Cholesterol Direct 95 mg/dL (50-130) 07/18/20 08:56 HDL Cholesterol 67 mg/dL (40-59) H 07/18/20 08:56 Cholesterol/HDL Ratio 2.34 % 07/18/20 08:56 Procalcitonin 0.10 ng/mL (<0.15) 07/18/20 10:36 TSH 5.520 mlU/mL (0.270-4.200) H 07/18/20 08:56 Free T4 0.84 ng/dL (0.76-1.46) 07/18/20 08:56 Arterial Blood Glucose 157 mg/dL (65-95) H 07/25/20 03:57 Arterial Blood Ionized Calcium 4.3 mg/dL (4.6-5.3) L 07/25/20 03:57 Random Vancomycin 11.5 ug/mL (0-40.0) 07/28/20 05:00 Heparin-induced Plt Ab Negative (Negative) 07/23/20 08:54 UF Heparin High Dose 0 % Release 07/23/20 08:54 MAGEN UFH Low Dose 0.1 0 % Release 07/23/20 08:54 MAGEN UFH Low Dose 0.5 0 % Release 07/23/20 08:54 Coronavirus (PCR) Negative (Negative) 08/06/20 Unknown Hepatitis A IgM Ab Non-reactive (NonReactive) 07/23/20 19:20 Hep Bs Antigen Non-reactive (Negative) 07/23/20 19:20 Hep B Core IgM Ab Non-reactive (NonReactive) 07/23/20 19:20 Hepatitis C Antibody Reactive (NonReactive) A 07/23/20 19:20 Blood Type A POSITIVE 08/06/20 09:00 Antibody Screen Negative 08/06/20 09:00 Crossmatch See Detail 08/06/20 09:00 Microbiology: Microbiology 08/06/20 09:00 Stool Stool Occult Blood (PREMA) - Final Ayala/IV: Voiding Method Incontinent Active Medications - Current Medications Current Medications: Generic Name Dose Route Start Last Admin Trade Name Freq PRN Reason Stop Dose Admin Lipase/Protease/Amylase 1 each 07/23/20 14:17 Lipase 10,500/Protease 25,000/Amylase 43,750 (Units) Dr Shell FEEDTUBE PRN PRN For Clogged Feeding Tube Aspirin 81 mg 08/01/20 10:00 08/07/20 10:20 Aspirin 81 Mg Tab Chew PO 81 mg QDAY JODIE Administration Atropine Sulfate 1 mg 07/23/20 09:03 07/23/20 22:15 Atropine 0.1% (1 Mg/10 Ml) Cardiac Syringe IV 1 mg PRN PRN Administration Bradycardia Dextrose 50 ml 07/23/20 03:28 07/23/20 06:00 Dextrose 50% In Water (25gm) 50 Ml Syringe IV 50 ml Q30MIN PRN Administration Hypoglycemia Protocol Famotidine 20 mg 07/18/20 22:00 08/07/20 10:20 Famotidine 20 Mg Tab PO 20 mg DAILY JODIE Administration Folic Acid 1 mg 07/19/20 10:00 08/07/20 10:20 Folic Acid 1 Mg Tab PO 1 mg DAILY JODIE Administration Hydralazine HCl 50 mg 07/18/20 14:00 08/07/20 06:25 Hydralazine 25 Mg Tab PO Not Given Q8HR JODIE Hydralazine HCl 20 mg 07/22/20 14:02 Hydralazine 20 Mg/1 Ml Inj IV Q4HR PRN Blood Pressure Hydrophilic Ointment 1 applic 07/22/20 10:02 Lip Therapy Vaseline TP Q2HR PRN Dry Lips Norepinephrine 4 mg in 250 mls @ 7.5 mls/hr 07/24/20 10:00 07/24/20 15:35 Levophed Drip 4 Mg/Ns 250 Ml IV 0 mcg/min TITR JODIE 0 mls/hr Titration Protocol 2 MCG/MIN Sodium Chloride 100 mls @ 999 mls/hr 08/03/20 15:05 Nacl 0.9% IV FRANCISCO PRN Hypotension Insulin Glargine 5 units 08/03/20 22:00 08/06/20 21:06 Insulin Glargine 100 Units/Ml SUB-Q 5 units QHS [facility] Administration Insulin Human Lispro 0 unit 07/26/20 10:00 08/07/20 06:29 Insulin Lispro 100 Unit/Ml SUB-Q 2 unit Q6HR JODIE Administration Protocol Levetiracetam 750 mg 07/18/20 22:00 08/07/20 10:20 Levetiracetam 500 Mg/5 Ml Oral Liqd PO 750 mg BID JODIE Administration Multi-Ingred Cream/Lotion/Oil/Oint 1 applic 07/22/20 10:02 Mineral Oil/Petrolatum, White Ophth Oint 3.5 Gm OU Q4HR PRN Dry Eye(s) Scopolamine 1 each 07/31/20 10:00 08/06/20 09:26 Scopolamine Transdermal Patch 72 Hr TD 1 each Q3D JODIE Administration Simple Syrup 15 ml 07/23/20 14:17 Simple Syrup 15 Ml FEEDTUBE PRN PRN Hypoglycemia Simple Syrup 30 ml 03/15/21 14:17 Simple Syrup 15 Ml FEEDTUBE PRN PRN Hypoglycemia Sodium Bicarbonate 325 mg 07/23/20 14:17 Sodium Bicarbonate 325 Mg Tab FEEDTUBE PRN PRN For Clogged Feeding Tube Thiamine HCl 100 mg 07/19/20 10:00 08/07/20 10:21 Thiamine 100 Mg Tab PO 100 mg QDAY JODIE Administration Nutrition/Malnutrition Assess - Dietary Evaluation Nutrition/Malnutrition Findings: Nutrition Notes Start: 07/19/20 09:53 Freq: Status: Active Protocol: Document 08/06/20 12:37 CW (Rec: 08/06/20 12:45 CW [email or web address]) Nutrition Notes Initial or Follow up Reassessment Current Diagnosis CKD(stage I-IV),Diabetes, Sepsis,Heart Failure, Respiratory Failure,Stroke Other Pertinent Diagnosis AMS, On HD,Acute toxic metabolic encephalopathy, Bradycardia, (R) LE wound, Current Diet Nepro 1.8 at 50 ml/hr Labs/Tests BUN 63 Cr 4.3 BG 138 Pertinent Medications Reviewed Height 5 ft 9 in Weight 91 kg [place] Body Weight (kg) 72.72 BMI 29.6 Weight change and time frame Wt change noted on HD Weight Status Overweight Subjective/Other Information Pt tolerating TF at goal rate. Percent of energy/protein needs met: 100%/67% Burn Absent Trauma Absent GI Symptoms Diarrhea Difficulty In Swallowing Skin Integrity/Comment Diabetic ulcers to BLE Current % PO Negligible Minimum of two criteria Yes Body Fat Depletion Mild depletion (non-severe) Muscle Mass Mild Depletion (non-severe) Fluid Accumulation Moderate to Severe (severe) #2 Nutrition Diagnosis Malnutrition Diagnosis Progress(for reassessment Continues documentation) #1 Nutrition Diagnosis Inadequate oral intake Diagnosis Progress(for reassessment Continues documentation) Is patient on ventilator? Yes Is Patient Ambulatory and/or Out of Bed No REE-([place]-confined to bed) 2045.316 Kcal/Kg value to use for calculation 20 Approximate Energy Requirements Using 1820 kcal/Kg Calculation Used for Recommendations Kcal/kg Additional Notes Protein needs: >144g (>2.0 g/ kgIBW) Fluid needs 1000 - 1500 ml/day Nutrition Intervention Change Diet Order: TF Nutrition Support: Nepro at 50 ml/h with a free water flush of 125 ml q4h. Kcal 2,160 Protein (gm) 97 Fluid (mL) 872 Add Supplement/Snack (indicate name/kcal Pawel BID /protein ) Provides kCal: 190 Provides Protein (gm) 5 Goal #1 TF tolerance Goal #2 Meet at estimated energy and protein needs as best as possible. Anticipated Discharge Needs: Unable to determine at this time Follow-Up By: 08/09/20 Additional Comments Follow for stable TF, weight <SHE YUEN - Last Filed: 08/08/20 07:21> Assessment and Plan Assessment and plan: I saw and evaluated the patient. I agree with the findings and the plan of care as documented in the Nurse Practitioner's~note, with the following corrections and additions. Hospitalist Physical - Constitutional Vitals: Temp Pulse Resp BP Pulse Ox 100.6 F H 101 H 19 99/48 99 08/08/20 04:00 08/08/20 06:08 08/08/20 06:00 08/08/20 06:08 08/08/20 06:00 HEART Score - HEART Score Troponin: Troponin T 0.047 ng/mL (0.00-0.029) H 07/22/20 10:30 Results - Labs CBC & Chem 7: 08/07/20 05:15 08/08/20 04:00 Labs: Laboratory Last Values WBC 7.2 K/mm3 (4.5-11.0) 08/07/20 05:15 RBC 2.37 M/mm3 (3.65-5.03) L 08/07/20 05:15 Hgb 7.3 gm/dl (11.8-15.2) L 08/07/20 05:15 Hct 21.8 % (35.5-45.6) L 08/07/20 05:15 MCV 92 fl (84-94) 08/07/20 05:15 MCH 31 pg (28-32) 08/07/20 05:15 MCHC 34 % (32-34) 08/07/20 05:15 RDW 16.5 % (13.2-15.2) H 08/07/20 05:15 Plt Count 172 K/mm3 (140-440) 08/07/20 05:15 Lymph % (Auto) 17.8 % (13.4-35.0) 08/06/20 05:53 [place] % (Auto) 7.5 % (0.0-7.3) H 08/06/20 05:53 Eos % (Auto) 1.3 % (0.0-4.3) 08/06/20 05:53 Baso % (Auto) 0.7 % (0.0-1.8) 08/06/20 05:53 Lymph # (Auto) 1.6 K/mm3 (1.2-5.4) 08/06/20 05:53 [place] # (Auto) 0.7 K/mm3 (0.0-0.8) 08/06/20 05:53 Eos # (Auto) 0.1 K/mm3 (0.0-0.4) 08/06/20 05:53 Baso # (Auto) 0.1 K/mm3 (0.0-0.1) 08/06/20 05:53 Add Manual Diff Complete 07/27/20 06:36 Total Counted 100 07/27/20 06:36 Seg Neutrophils % 72.7 % (40.0-70.0) H 08/06/20 05:53 Seg Neuts % (Manual) 88.0 % (40.0-70.0) H 07/27/20 06:36 Lymphocytes % (Manual) 11.0 % (13.4-35.0) L 07/27/20 06:36 Monocytes % (Manual) 1.0 % (0.0-7.3) 07/27/20 06:36 Nucleated RBC % 2.0 % (0.0-0.9) H 07/27/20 06:36 Seg Neutrophils # 6.7 K/mm3 (1.8-7.7) 08/06/20 05:53 Seg Neutrophils # Man 8.9 K/mm3 (1.8-7.7) H 07/27/20 06:36 Band Neutrophils # 0.0 K/mm3 07/27/20 06:36 Lymphocytes # (Manual) 1.1 K/mm3 (1.2-5.4) L 07/27/20 06:36 Abs React Lymphs (Man) 0.0 K/mm3 07/27/20 06:36 Monocytes # (Manual) 0.1 K/mm3 (0.0-0.8) 07/27/20 06:36 Eosinophils # (Manual) 0.0 K/mm3 (0.0-0.4) 07/27/20 06:36 Basophils # (Manual) 0.0 K/mm3 (0.0-0.1) 07/27/20 06:36 Metamyelocytes # 0.0 K/mm3 07/27/20 06:36 Myelocytes # 0.0 K/mm3 07/27/20 06:36 Promyelocytes # 0.0 K/mm3 07/27/20 06:36 Blast Cells # 0.0 K/mm3 07/27/20 06:36 WBC Morphology Not Reportable 07/27/20 06:36 Hypersegmented Neuts Not Reportable 07/27/20 06:36 Hyposegmented Neuts Not Reportable 07/27/20 06:36 Hypogranular Neuts Not Reportable 07/27/20 06:36 Smudge Cells Not Reportable 07/27/20 06:36 Toxic Granulation Not Reportable 07/27/20 06:36 Toxic Vacuolation Not Reportable 07/27/20 06:36 Dohle Bodies Not Reportable 07/27/20 06:36 Pelger-Huet Anomaly Not Reportable 07/27/20 06:36 Clint Rods Not Reportable 07/27/20 06:36 Platelet Estimate Consistent w auto 07/27/20 06:36 Clumped Platelets Not Reportable 07/27/20 06:36 Plt Clumps, EDTA Not Reportable 07/27/20 06:36 Large Platelets Not Reportable 07/27/20 06:36 Giant Platelets Not Reportable 07/27/20 06:36 Platelet Satelliting Not Reportable 07/27/20 06:36 Plt Morphology Comment Not Reportable 07/27/20 06:36 RBC Morphology Not Reportable 07/27/20 06:36 Dimorphic RBCs Not Reportable 07/27/20 06:36 Polychromasia Not Reportable 07/27/20 06:36 Hypochromasia Not Reportable 07/27/20 06:36 Poikilocytosis Not Reportable 07/27/20 06:36 Anisocytosis Few 07/27/20 06:36 Microcytosis Not Reportable 07/27/20 06:36 Macrocytosis Not Reportable 07/27/20 06:36 Spherocytes Not Reportable 07/27/20 06:36 Pappenheimer Bodies Not Reportable 07/27/20 06:36 Sickle Cells Not Reportable 07/27/20 06:36 Target Cells Not Reportable 07/27/20 06:36 Tear Drop Cells Not Reportable 07/27/20 06:36 Ovalocytes Not Reportable 07/27/20 06:36 Helmet Cells Not Reportable 07/27/20 06:36 [place] Bodies Not Reportable 07/27/20 06:36 [place] Rings Not Reportable 07/27/20 06:36 Sae Cells Not Reportable 07/27/20 06:36 Bite Cells Not Reportable 07/27/20 06:36 Crenated Cell Not Reportable 07/27/20 06:36 Elliptocytes Not Reportable 07/27/20 06:36 Acanthocytes (Spur) Not Reportable 07/27/20 06:36 Rouleaux Not Reportable 07/27/20 06:36 Hemoglobin C Crystals Not Reportable 07/27/20 06:36 Schistocytes Rare 07/27/20 06:36 Malaria parasites Not Reportable 07/27/20 06:36 Carl Bodies Not Reportable 07/27/20 06:36 Hem Pathologist Commnt No 07/27/20 06:36 PT 15.9 Sec. (12.2-14.9) H 07/22/20 10:30 INR 1.27 (0.87-1.13) H 07/22/20 10:30 APTT 38.3 Sec. (24.2-36.6) H 07/22/20 10:30 D-Dimer 1036.46 ng/mlDDU (0-234) H 07/18/20 08:56 Heparin Anti-Xa, Unfract Negative (Negative) 07/23/20 08:54 ABG pH 7.520 pH Units (7.350-7.450) H 07/27/20 05:20 POC ABG pCO2 32.7 mmHg (32.0-48.0) 07/25/20 03:57 ABG pCO2 33.5 mm Hg 07/27/20 05:20 POC ABG pO2 62.7 mmHg (83-108) L 07/25/20 03:57 ABG pO2 64.2 mm Hg (80.0-90.0) L 07/27/20 05:20 POC ABG HCO3 24.8 07/25/20 03:57 ABG HCO3 26.8 mmol/L (20.0-26.0) H 07/27/20 05:20 ABG O2 Saturation 95.8 % (95.0-99.0) 07/27/20 05:20 ABG O2 Content 9.5 (0.0-44) 07/27/20 05:20 POC ABG Base Excess 1.7 07/25/20 03:57 ABG Base Excess 3.7 mmol/L (-2.0-3.0) H 07/27/20 05:20 ABG Hemoglobin 7.2 gm/dl (14.0-18.0) L 07/27/20 05:20 ABG Oxyhemoglobin 90.1 (94-98) L 07/25/20 03:57 ABG Carboxyhemoglobin 2.3 % (0.0-5.0) 07/27/20 05:20 ABG Methemoglobin 0.5 % (0.0-1.5) 07/27/20 05:20 ABG Sodium 138.7 mmol/L (136.0-145.0) 07/25/20 03:57 ABG Potassium 4.0 mmol/L (3.40-4.50) 07/25/20 03:57 ABG Chloride 110.0 mmol/L (98-107) H 07/25/20 03:57 ABG Glucose 157 mg/dL (65-95) H 07/25/20 03:57 Oxyhemoglobin 93.2 % (95.0-99.0) L 07/27/20 05:20 Carboxyhemoglobin 1.1 (0.5-1.5) 07/25/20 03:57 FiO2 25 % 07/27/20 05:20 FiO2 % 40 07/25/20 03:57 Sodium 136 mmol/L (137-145) L 08/08/20 04:00 Potassium 4.2 mmol/L (3.6-5.0) 08/08/20 04:00 Chloride 97.4 mmol/L (98-107) L 08/08/20 04:00 Carbon Dioxide 30 mmol/L (22-30) 08/08/20 04:00 Anion Gap 13 mmol/L 08/08/20 04:00 BUN 67 mg/dL (9-20) H 08/08/20 04:00 Creatinine 4.4 mg/dL (0.8-1.3) H 08/08/20 04:00 Estimated GFR 17 ml/min 08/08/20 04:00 BUN/Creatinine Ratio 15 % 08/08/20 04:00 Glucose 120 mg/dL (75-100) H 08/08/20 04:00 POC Glucose 117 mg/dL (70-105) H 08/08/20 05:30 Lactic Acid 0.80 mmol/L (0.7-2.0) 07/18/20 08:56 Calcium 7.9 mg/dL (8.4-10.2) L 08/08/20 04:00 Phosphorus 3.40 mg/dL (2.5-4.5) 08/03/20 04:00 Magnesium 1.80 mg/dL (1.7-2.3) 08/03/20 04:00 Ferritin 198.6 ng/mL (30.0-300.0) 07/18/20 10:36 Total Bilirubin 0.30 mg/dL (0.1-1.2) 07/22/20 10:30 Direct Bilirubin 0.2 mg/dL (0-0.2) 07/19/20 06:00 Indirect Bilirubin 0.2 mg/dL 07/19/20 06:00 AST 66 units/L (5-40) H 07/22/20 10:30 ALT < 5 units/L (7-56) L 07/22/20 10:30 Alkaline Phosphatase 604 units/L (35-129) H 07/22/20 10:30 Ammonia 41.0 umol/L (25-60) 07/18/20 08:56 Lactate Dehydrogenase 212 units/L (91-180) H 07/18/20 10:36 Total Creatine Kinase 67 units/L (55-170) 07/22/20 10:30 CK-MB (CK-2) 10.9 ng/mL (0.0-4.0) H 07/22/20 10:30 CK-MB (CK-2) Rel Index 16.2 (0-4) H 07/22/20 10:30 Troponin T 0.047 ng/mL (0.00-0.029) H 07/22/20 10:30 C-Reactive Protein 2.10 mg/dL (0.00-1.30) H 07/18/20 10:36 NT-Pro-B Natriuret Pep 4777 pg/mL (0-900) H 07/18/20 08:56 Total Protein 6.4 g/dL (6.3-8.2) 07/22/20 10:30 Albumin 2.1 g/dL (3.9-5) L 07/22/20 10:30 Albumin/Globulin Ratio 0.5 % 07/22/20 10:30 Triglycerides 65 mg/dL (2-149) 07/18/20 08:56 Cholesterol 157 mg/dL (50-199) 07/18/20 08:56 LDL Cholesterol Direct 95 mg/dL (50-130) 07/18/20 08:56 HDL Cholesterol 67 mg/dL (40-59) H 07/18/20 08:56 Cholesterol/HDL Ratio 2.34 % 07/18/20 08:56 Procalcitonin 0.10 ng/mL (<0.15) 07/18/20 10:36 TSH 5.520 mlU/mL (0.270-4.200) H 07/18/20 08:56 Free T4 0.84 ng/dL (0.76-1.46) 07/18/20 08:56 Arterial Blood Glucose 157 mg/dL (65-95) H 07/25/20 03:57 Arterial Blood Ionized Calcium 4.3 mg/dL (4.6-5.3) L 07/25/20 03:57 Random Vancomycin 11.5 ug/mL (0-40.0) 07/28/20 05:00 Heparin-induced Plt Ab Negative (Negative) 07/23/20 08:54 UF Heparin High Dose 0 % Release 07/23/20 08:54 MAGEN UFH Low Dose 0.1 0 % Release 07/23/20 08:54 MAGEN UFH Low Dose 0.5 0 % Release 07/23/20 08:54 Coronavirus (PCR) Negative (Negative) 08/06/20 Unknown Hepatitis A IgM Ab Non-reactive (NonReactive) 07/23/20 19:20 Hep Bs Antigen Non-reactive (Negative) 07/23/20 19:20 Hep B Core IgM Ab Non-reactive (NonReactive) 07/23/20 19:20 Hepatitis C Antibody Reactive (NonReactive) A 07/23/20 19:20 Blood Type A POSITIVE 08/06/20 09:00 Antibody Screen Negative 08/06/20 09:00 Crossmatch See Detail 08/06/20 09:00 Ayala/IV: Voiding Method Incontinent Active Medications - Current Medications Current Medications: Generic Name Dose Route Start Last Admin Trade Name Freq PRN Reason Stop Dose Admin Lipase/Protease/Amylase 1 each 07/23/20 14:17 Lipase 10,500/Protease 25,000/Amylase 43,750 (Units) Dr Cap FEEDTUBE PRN PRN For Clogged Feeding Tube Aspirin 81 mg 08/01/20 10:00 08/07/20 10:20 Aspirin 81 Mg Tab Chew PO 81 mg QDAY JODIE Administration Atropine Sulfate 1 mg 07/23/20 09:03 07/23/20 22:15 Atropine 0.1% (1 Mg/10 Ml) Cardiac Syringe IV 1 mg PRN PRN Administration Bradycardia Dextrose 50 ml 07/23/20 03:28 07/23/20 06:00 Dextrose 50% In Water (25gm) 50 Ml Syringe IV 50 ml Q30MIN PRN Administration Hypoglycemia Protocol Famotidine 20 mg 07/18/20 22:00 08/07/20 10:20 Famotidine 20 Mg Tab PO 20 mg DAILY JODIE Administration Folic Acid 1 mg 07/19/20 10:00 08/07/20 10:20 Folic Acid 1 Mg Tab PO 1 mg DAILY JODIE Administration Hydralazine HCl 50 mg 07/18/20 14:00 08/08/20 06:08 Hydralazine 25 Mg Tab PO Not Given Q8HR JODIE Hydralazine HCl 20 mg 07/22/20 14:02 Hydralazine 20 Mg/1 Ml Inj IV Q4HR PRN Blood Pressure Hydrophilic Ointment 1 applic 07/22/20 10:02 Lip Therapy Vaseline TP Q2HR PRN Dry Lips Norepinephrine 4 mg in 250 mls @ 7.5 mls/hr 07/24/20 10:00 07/24/20 15:35 Levophed Drip 4 Mg/Ns 250 Ml IV 0 mcg/min TITR JODIE 0 mls/hr Titration Protocol 2 MCG/MIN Sodium Chloride 100 mls @ 999 mls/hr 08/03/20 15:05 Nacl 0.9% IV FRANCISCO PRN Hypotension Insulin Glargine 5 units 08/03/20 22:00 08/07/20 21:35 Insulin Glargine 100 Units/Ml SUB-Q 5 units QHS JODIE Administration Insulin Human Lispro 0 unit 07/26/20 10:00 08/08/20 06:07 Insulin Lispro 100 Unit/Ml SUB-Q Not Given Q6HR [facility] Protocol Levetiracetam 750 mg 07/18/20 22:00 08/07/20 21:24 Levetiracetam 500 Mg/5 Ml Oral Liqd PO 750 mg BID JODIE Administration Multi-Ingred Cream/Lotion/Oil/Oint 1 applic 07/22/20 10:02 Mineral Oil/Petrolatum, White Ophth Oint 3.5 Gm OU Q4HR PRN Dry Eye(s) Scopolamine 1 each 07/31/20 10:00 08/06/20 09:26 Scopolamine Transdermal Patch 72 Hr TD 1 each Q3D JODIE Administration Simple Syrup 15 ml 07/23/20 14:17 Simple Syrup 15 Ml FEEDTUBE PRN PRN Hypoglycemia Simple Syrup 30 ml 07/23/20 14:17 Simple Syrup 15 Ml FEEDTUBE PRN PRN Hypoglycemia Sodium Bicarbonate 325 mg 07/23/20 14:17 Sodium Bicarbonate 325 Mg Tab FEEDTUBE PRN PRN For Clogged Feeding Tube Thiamine HCl 100 mg 07/19/20 10:00 08/07/20 10:21 Thiamine 100 Mg Tab PO 100 mg QDAY JODIE Administration Nutrition/Malnutrition Assess - Dietary Evaluation Nutrition/Malnutrition Findings: Nutrition Notes Start: 07/19/20 09:53 Freq: Status: Active Protocol: Document 08/06/20 12:37 CW (Rec: 08/06/20 12:45 CW [email or web address]) Nutrition Notes Initial or Follow up Reassessment Current Diagnosis CKD(stage I-IV),Diabetes, Sepsis,Heart Failure, Respiratory Failure,Stroke Other Pertinent Diagnosis AMS, On HD,Acute toxic metabolic encephalopathy, Bradycardia, (R) LE wound, Current Diet Nepro 1.8 at 50 ml/hr Labs/Tests BUN 63 Cr 4.3 BG 138 Pertinent Medications Reviewed Height 5 ft 9 in Weight 91 kg [place] Body Weight (kg) 72.72 BMI 29.6 Weight change and time frame Wt change noted on HD Weight Status Overweight Subjective/Other Information Pt tolerating TF at goal rate. Percent of energy/protein needs met: 100%/67% Burn Absent Trauma Absent GI Symptoms Diarrhea Difficulty In Swallowing Skin Integrity/Comment Diabetic ulcers to BLE Current % PO Negligible Minimum of two criteria Yes Body Fat Depletion Mild depletion (non-severe) Muscle Mass Mild Depletion (non-severe) Fluid Accumulation Moderate to Severe (severe) #2 Nutrition Diagnosis Malnutrition Diagnosis Progress(for reassessment Continues documentation) #1 Nutrition Diagnosis Inadequate oral intake Diagnosis Progress(for reassessment Continues documentation) Is patient on ventilator? Yes Is Patient Ambulatory and/or Out of Bed No REE-([place] [place]-confined to bed) 2045.316 Kcal/Kg value to use for calculation 20 Approximate Energy Requirements Using 1820 kcal/Kg Calculation Used for Recommendations Kcal/kg Additional Notes Protein needs: >144g (>2.0 g/ kgIBW) Fluid needs 1000 - 1500 ml/day Nutrition Intervention Change Diet Order: TF Nutrition Support: Nepro at 50 ml/h with a free water flush of 125 ml q4h. Kcal 2,160 Protein (gm) 97 Fluid (mL) 872 Add Supplement/Snack (indicate name/kcal Pawel BID /protein ) Provides kCal: 190 Provides Protein (gm) 5 Goal #1 TF tolerance Goal #2 Meet at estimated energy and protein needs as best as possible. Anticipated Discharge Needs: Unable to determine at this time Follow-Up By: 08/09/20 Additional Comments Follow for stable TF, weight
[2020-08-07] MEDS: INSULIN GLARGINE 100 UNITS/ML SUB-Q SCH (21:35)
[2020-08-08] MEDS: INSULIN LISPRO 100 UNIT/ML SUB-Q SCH ×3 (00:30→13:02)
[2020-08-08] MEDS: hydrALAZINE 25 MG TAB PO SCH ×2 (06:08→15:45)
[2020-08-08 06:52] LABS: Calcium 7.9 mg/dL (8.4-10.2)
[2020-08-08] MEDS: levETIRAcetam 500 MG/5 ML ORAL LIQD PO SCH (09:23)
[2020-08-08] MEDS: ASPIRIN 81 MG TAB CHEW PO SCH (09:24)
[2020-08-08] MEDS: THIAMINE 100 MG TAB PO SCH (09:27)
[2020-08-08] MEDS: FAMOTIDINE 20 MG TAB PO SCH (09:27)
[2020-08-08] MEDS: FOLIC ACID 1 MG TAB PO SCH (09:27)
--- NOTE | 2020-08-08 10:59 | Discharge Summary ---
Providers - Providers Date of Admission: 07/18/20 10:01 Date of discharge: 08/08/20 Attending physician: SHE YUEN MD 07/18/20 09:51 Consult to Physician [CONS] Urgent Comment: dr. rowley saw patient/ antoni Consulting Provider: WALESKA JOSUE Physician Instructions: Reason For Exam: acute on chronic renal failure 07/19/20 14:15 Consult to Physician [CONS] Routine Comment: Consulting Provider: CARSON WISLON Physician Instructions: Reason For Exam: difficult to place jones catheter 07/19/20 18:18 Consult to Wound/ET Nurse [CONS] Routine Reason For Exam: sacrum and testes 07/22/20 10:02 Consult to Dietitian/Nutrition [CONS] Routine Physician Instructions: Reason For Exam: Reason for Consult: Write/Manage Tube Feeding 07/22/20 10:32 Consult to Physician [CONS] Urgent Comment: Consulting Provider: PELON GONZALEZ Physician Instructions: Reason For Exam: Resp arrest/requiring intubation/CC,Pul consult 07/22/20 11:27 Consult to Physician [CONS] Routine Comment: Consulting Provider: JOSUE MALDONADO Physician Instructions: Reason For Exam: Bradycardia/respiratory failure intubated 07/23/20 11:12 Consult to Physician [CONS] Routine Comment: Consulting Provider: PEREZ FAY Physician Instructions: Reason For Exam: RACQUEL needs Permacath for HD 07/29/20 19:06 Consult to Wound/ET Nurse [CONS] Routine Reason For Exam: sacral wound and penile shaft 07/30/20 16:36 Consult to Physician [CONS] Routine Comment: Consulting Provider: JUAN PACKER Physician Instructions: Reason For Exam: ams 08/01/20 18:44 Consult to Wound/ET Nurse [CONS] Routine Reason For Exam: wound eval, sacrum Primary care physician: JANICE REED Hospitalization Condition: Stable Hospital course: This is 65-year-old male with diabetes mellitus, chronic kidney disease, CVA with residual weakness admitted to the hospitalist service with altered level consciousness and unresponsiveness. Patient started to be in sepsis secondary to MSSA bacteremia long-term antibiotics and his renal function progressively deteriorated. Patient initially refused outpatient dialysis then went into respiratory arrest requiring intubation and mechanical ventilation and was transferred to ICU. Patient family gave consent for hemodialysis and the patient remains intubated in the ICU. CCM, nephrology, cardiology and vascular surgery were consulted for care. On 07/19 they were unable to pass a Jones catheter and urology was consulted and his Covid test was negative. On 07/20 patient's blood culture grew out MSSA bacteremia. On 07/21 he was lethargic and a CT head without contrast was obtained. On 07/22 patient had a respiratory arrest and was intubated admitted to the ICU. On 07/23 patient had severe bradycardia and received atropine and nephrology was planning dialysis. On 07/23 patient was initiated on hemodialysis and he completed Unasyn for his MSSA sepsis. On 07/[address] head revealed interval development of extensive hypoattenuation in the cerebral white matter, corpus callosum, bulbous thalami and probable in the Perez nuclei finding may be residential sales representative of global hypoxic ischemic injury with no acute infarct or mass. Neurology was consulted and EEG was obtained which showed a normal sleep-wake cycle. Patient remained hypothermic throughout his stay and did bear hugger was used symptomatically. Patient had an MRI brain which showed findings consistent with anoxic brain injury and a repeat EEG showed depressed activity. Patient was transfused with PRBCs during his stay for symptomatic anemia. Patient will be transferred to hospice today. Sepsis Acute on chronic kidney disease stage III Acute hypoxic respiratory failure NSTEMI type II Hyponatremia Anemia of chronic disease Acute toxic metabolic encephalopathy Severe protein calorie malnutrition/hypoalbuminemia Thrombocytopenia MSSA sepsis Type 2 diabetes mellitus Acute on chronic systolic congestive heart failure, EF 30 to 45% Seizure disorder CVA Assessment and Plan -08/02 MRI brain shows extensive confluent restricted diffusion in the cerebral white matter, corpus callosum, brainstem and cerebellar dentate nuclei keeping with severe global hypoxic ischemic event/injury with no hemorrhage or adverse mass-effect. -CCM/nephrology/neurology/infectious disease consulted, appreciate re commendations -HD per nephrology -VAP bundle -Trend CBC and BMP -Tube feeding/nutrition supplements -SSI, long-acting insulin -Keppra DVT prophylaxis: thrombocytopenia, no anticoagulation. Continue SCDs GI prophylaxis: PPI Dispo: Hospice Disposition: [id number]PICE ([facility]) Final Discharge Diagnosis (Prints w/discharge instructions): Sepsis, acute hypoxic respiratory failure, acute kidney injury which progressed to hemodialysis, MSSA bacteremia Time spent for discharge: 35 Core Measure Documentation - Palliative Care Palliative Care/ Comfort Measures: Hospice Care - Core Measures Any of the following diagnoses?: history only Exam - Constitutional Vitals: Temp Pulse Resp BP Pulse Ox 97.5 F L 86 23 105/58 100 08/08/20 09:43 08/08/20 10:45 08/08/20 09:43 08/08/20 10:45 08/08/20 09:43 General appearance: Present: no acute distress - Neck Neck: Present: normal ROM - Respiratory Respiratory effort: normal Respiratory: bilateral: CTA - Cardiovascular Rhythm: regular Heart Sounds: Present: S1 & S2 - Extremities Extremities: no ischemia, pulses intact, pulses symmetrical, normal color Extremity abnormal: edema, cold Peripheral Pulses: within normal limits - Abdominal General gastrointestinal: Present: soft, non-tender, non-distended, hypoactive bowel sounds - Integumentary Integumentary: Present: warm, dry - Psychiatric Psychiatric: other (Unresponsive) - Neurologic Neurologic: other (Unresponsive) Plan Activity: no restrictions Diet: per dietitian instruction Follow up with: PRIMARY CARE, [Referring] - 3-5 Days
--- NOTE | 2020-08-08 11:45 | Progress Note ---
Assessment and Plan - Patient Problems (1) Acute on chronic renal failure Current Visit: Yes Status: Acute Qualifiers: Acute renal failure type: unspecified Chronic kidney disease stage: stage 3 (moderate) Chronic kidney disease stage 3 subtype: stage 3a (GFR 45-59) Qualified Code(s): N17.9 - Acute kidney failure, unspecified; N18.31 - Chronic kidney disease, stage 3a Plan to address problem: Acute on chronic kidney disease which was still worsening. Patient did not respond to IV diuretics. Hyperkalemia and metabolic acidosis were persisting. Dialysis was started 07/23/20. Tolerating dialysis with no complications. Continue Hemodialysis today. (2) Anasarca Current Visit: Yes Status: Acute Plan to address problem: Patient did not respond to aggressive IV diuretics. Volume status has improved with intensive dialysis/ultrafiltration. No more dialysis after today. Okay to discharge to hospice from my standpoint (3) Hyperkalemia Current Visit: Yes Status: Acute Plan to address problem: Hyperkalemia persisted despite medical management consult patient was started on dialysis for solute control. 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 Patient did not respond to intravenous diuretics. Dialysis was started for fluid removal. (5) Sepsis Current Visit: Yes Status: Suspected Qualifiers: Sepsis type: sepsis due to unspecified organism Sepsis acute organ dysfunction status: with acute organ dysfunction Severe sepsis acute organ dysfunction type: acute renal failure Acute renal failure type: unspecified Severe sepsis shock status: without septic shock Qualified Code(s): A41.9 - Sepsis, unspecified organism; R65.20 - Severe sepsis without septic shock; N17.9 - Acute kidney failure, unspecified Plan to address problem: Continue empiric antibiotic. Follow-up cultures. (6) Hypertensive chronic kidney disease with stage 1 through stage 4 chronic kidney disease, or unspecified chronic kidney disease Current Visit: No Status: Acute Plan to address problem: Blood pressure is improving. Follow-up (7) Type 2 diabetes mellitus with diabetic nephropathy Current Visit: No Status: Acute Plan to address problem: Blood sugar management by primary attending (8) Anoxic encephalopathy Current Visit: Yes Status: Acute Plan to address problem: No significant improvement. MRI findings appreciated. Poor prognosis. Family has decided for hospice. Patient to be transferred to hospice today. Subjective Date of service: 08/08/20 Principal diagnosis: RACQUEL Interval history: Patient seen lying in bed. Intubated on the ventilator. Not interacting. On Dialysis -BP 102/57 isolated ultrafiltration goal 3.5 L Objective - Exam Narrative Exam: Middle-aged -[place] male lying in bed intubated on ventilator HEENT: NCAT, endotracheal tube intact Genitourinary deferred Skin with hyperpigmentation especially in the legs and feet, dressing right leg Neuro: Unresponsive - Vital Signs Vital signs: Vital Signs - 12hr 08/08/20 08/08/20 08/08/20 00:00 01:00 02:00 Temperature 95.8 F L Pulse Rate 80 83 89 Pulse Rate [ 79 From Monitor] Respiratory 19 20 21 Rate Blood Pressure 113/68 118/67 112/60 O2 Sat by Pulse 100 100 99 Oximetry O2 Sat by Pulse Oximetry [ Anterior Bilateral Throughout] 08/08/20 08/08/20 08/08/20 03:00 04:00 04:26 Temperature 100.6 F H Pulse Rate 95 H 97 H 97 H Pulse Rate [ 97 H From Monitor] Respiratory 20 15 Rate Blood Pressure 106/60 99/54 99/54 O2 Sat by Pulse 99 94 100 Oximetry O2 Sat by Pulse Oximetry [ Anterior Bilateral Throughout] 08/08/20 08/08/20 08/08/20 05:00 06:00 06:08 Temperature Pulse Rate 101 H 101 H 101 H Pulse Rate [ From Monitor] Respiratory 20 19 Rate Blood Pressure 105/55 99/49 99/48 O2 Sat by Pulse 99 99 Oximetry O2 Sat by Pulse Oximetry [ Anterior Bilateral Throughout] 08/08/20 08/08/20 08/08/20 07:00 08:00 08:52 Temperature 103.1 F H Pulse Rate 104 H 104 H 96 H Pulse Rate [ From Monitor] Respiratory 22 18 Rate Blood Pressure 100/47 104/49 114/55 O2 Sat by Pulse 100 100 100 Oximetry O2 Sat by Pulse Oximetry [ Anterior Bilateral Throughout] 08/08/20 08/08/20 08/08/20 09:00 09:43 09:52 Temperature 97.5 F L Pulse Rate 94 H 96 H 89 Pulse Rate [ From Monitor] Respiratory 23 23 Rate Blood Pressure 100/49 111/58 109/57 O2 Sat by Pulse 100 Oximetry O2 Sat by Pulse 100 Oximetry [ Anterior Bilateral Throughout] 08/08/20 08/08/20 08/08/20 10:15 10:30 10:45 Temperature Pulse Rate 88 86 86 Pulse Rate [ From Monitor] Respiratory Rate Blood Pressure 111/57 106/58 105/58 O2 Sat by Pulse Oximetry O2 Sat by Pulse Oximetry [ Anterior Bilateral Throughout] 08/08/20 08/08/20 08/08/20 11:00 11:15 11:30 Temperature Pulse Rate 83 84 85 Pulse Rate [ From Monitor] Respiratory Rate Blood Pressure 102/57 104/56 104/57 O2 Sat by Pulse Oximetry O2 Sat by Pulse Oximetry [ Anterior Bilateral Throughout] - Lab 08/07/20 05:15 08/08/20 04:00 Most recent lab results ABG pH 7.520 pH Units (7.350-7.450) H 07/27/20 05:20 ABG pCO2 33.5 mm Hg 07/27/20 05:20 ABG pO2 64.2 mm Hg (80.0-90.0) L 07/27/20 05:20 ABG HCO3 26.8 mmol/L (20.0-26.0) H 07/27/20 05:20 ABG O2 Saturation 95.8 % (95.0-99.0) 07/27/20 05:20 Calcium 7.9 mg/dL (8.4-10.2) L 08/08/20 04:00 Phosphorus 3.40 mg/dL (2.5-4.5) 08/03/20 04:00 Magnesium 1.80 mg/dL (1.7-2.3) 08/03/20 04:00 Medications & Allergies - Medications Allergies/Adverse Reactions: Allergies No Known Allergies Allergy (Verified 06/19/19 17:53) Home Medications: Home Medications Medication Instructions Recorded Confirmed Last Taken Type FLUoxetine [PROzac] 20 mg PO QDAY #14 capsule 06/23/19 06/21/20 Unknown Rx traZODone [Desyrel] 50 mg PO QHS #10 tablet 06/23/19 06/21/20 Unknown Rx Folic Acid 1 mg PO DAILY #30 tablet 06/25/19 06/21/20 Unknown Rx Nicotine [Habitrol] 14 mg TD DAILY #30 patch 06/25/19 06/21/20 Unknown Rx Thiamine [Vitamin B-1] 100 mg PO QDAY #30 tablet 06/25/19 06/21/20 Unknown Rx Aspirin EC [Halfprin EC] 81 mg PO QDAY #30 tablet. 07/26/19 06/21/20 Unknown Rx levETIRAcetam [Keppra TAB] 750 mg PO BID #60 tablet 07/26/19 06/21/20 Unknown Rx Furosemide [Lasix TAB] 40 mg PO QDAY #30 tablet 04/28/20 06/21/20 Unknown Rx Famotidine [Pepcid] 20 mg PO BID #60 tablet 07/05/20 Unknown Rx Insulin NPH, Human [NovoLIN N] 5 unit SUB-Q BIDDIAB 30 Days #10 ml 07/05/20 06/21/20 Unknown Rx amLODIPine 10 mg PO QDAY #30 tablet 07/05/20 Unknown Rx carvediloL [Coreg] 12.5 mg PO BID #60 tablet 07/05/20 Unknown Rx hydrALAZINE [Apresoline TAB] 50 mg PO Q8HR #30 tablet 07/06/20 Unknown Rx Active Medications: Generic Name Dose Route Start Last Admin Trade Name Freq PRN Reason Stop Dose Admin Lipase/Protease/Amylase 1 each 07/23/20 14:17 Lipase 10,500/Protease 25,000/Amylase 43,750 (Units) Dr Shell FEEDTUBE PRN PRN For Clogged Feeding Tube Aspirin 81 mg 08/01/20 10:00 08/08/20 09:24 Aspirin 81 Mg Tab Chew PO 81 mg QDAY JODIE Administration Atropine Sulfate 1 mg 07/23/20 09:03 07/23/20 22:15 Atropine 0.1% (1 Mg/10 Ml) Cardiac Syringe IV 1 mg PRN PRN Administration Bradycardia Dextrose 50 ml 07/23/20 03:28 07/23/20 06:00 Dextrose 50% In Water (25gm) 50 Ml Syringe IV 50 ml Q30MIN PRN Administration Hypoglycemia Protocol Famotidine 20 mg 07/18/20 22:00 08/08/20 09:27 Famotidine 20 Mg Tab PO 20 mg DAILY JODIE Administration Folic Acid 1 mg 07/19/20 10:00 08/08/20 09:27 Folic Acid 1 Mg Tab PO 1 mg DAILY JODIE Administration Hydralazine HCl 50 mg 07/18/20 14:00 08/08/20 06:08 Hydralazine 25 Mg Tab PO Not Given Q8HR JODIE Hydralazine HCl 20 mg 07/22/20 14:02 Hydralazine 20 Mg/1 Ml Inj IV Q4HR PRN Blood Pressure Hydrophilic Ointment 1 applic 07/22/20 10:02 Lip Therapy Vaseline TP Q2HR PRN Dry Lips Norepinephrine 4 mg in 250 mls @ 7.5 mls/hr 07/24/20 10:00 07/24/20 15:35 Levophed Drip 4 Mg/Ns 250 Ml IV 0 mcg/min TITR JODIE 0 mls/hr Titration Protocol 2 MCG/MIN Sodium Chloride 100 mls @ 999 mls/hr 08/03/20 15:05 Nacl 0.9% IV FRANCISCO PRN Hypotension Insulin Glargine 5 units 08/03/20 22:00 08/07/20 21:35 Insulin Glargine 100 Units/Ml SUB-Q 5 units QHS JODIE Administration Insulin Human Lispro 0 unit 07/26/20 10:00 08/08/20 06:07 Insulin Lispro 100 Unit/Ml SUB-Q Not Given Q6HR [facility] Protocol Levetiracetam 750 mg 07/18/20 22:00 08/08/20 09:23 Levetiracetam 500 Mg/5 Ml Oral Liqd PO 750 mg BID JODIE Administration Multi-Ingred Cream/Lotion/Oil/Oint 1 applic 07/22/20 10:02 Mineral Oil/Petrolatum, White Ophth Oint 3.5 Gm OU Q4HR PRN Dry Eye(s) Scopolamine 1 each 07/31/20 10:00 08/06/20 09:26 Scopolamine Transdermal Patch 72 Hr TD 1 each Q3D JODIE Administration Simple Syrup 15 ml 07/23/20 14:17 Simple Syrup 15 Ml FEEDTUBE PRN PRN Hypoglycemia Simple Syrup 30 ml 07/23/20 14:17 Simple Syrup 15 Ml FEEDTUBE PRN PRN Hypoglycemia Sodium Bicarbonate 325 mg 07/23/20 14:17 Sodium Bicarbonate 325 Mg Tab FEEDTUBE PRN PRN For Clogged Feeding Tube Thiamine HCl 100 mg 07/19/20 10:00 08/08/20 09:27 Thiamine 100 Mg Tab PO 100 mg QDAY JODIE Administration
--- NOTE | 2020-08-08 14:49 | Progress Note ---
Assessment and Plan 8 y/o male with acute respiratory failure secondary to worsening renal failure, volume overload and altered mental state 08/08/20: continue supportive measures. HD just finished. Agree with hospice transfer. 08/07/20: Follow up post visit from daughter today. Hospice appropriate. Continue supportive measures. 08/06/20: CM to call daughter today. would like for her to visit her father so she can see his clinical state for herself. Continue supportive measures. Brain MRI has been done but not read yet. No neuro follow up since repeat EEG read. Goals of care to be discussed with family once all information has been assessed and interpreted. 08/05/20: Will call daughter back tomorrow to assess where we are as far as goal s of care. It does not appear that she visited this weekend. Will continue supportive measures. Overall prognosis is appears poor. 08/04/20: Long discussion with daughter over the phone. Explained overall poor prognosis. Per daughter, patient would not want to exist like this. She is going to come visit and at that time I will discuss with her about future plans (hospice, vs withdrawal of care and comfort measures). Continue all supportive therapy for now and await daughter visit and her speaking with family. 08/03/20: Reviewed repeat EEG. Getting MRI today. Will ask Neuro to see ac forde again after MRI. Given current state and now reading on EEG, will need to have family discussion once MRI is done. Likely will need trach and peg placement. Transfuse today during HD. 08/02/20: Will consider ordering repeat EEG today tomorrow. Neuro has not re- evaluated the patient since initial consult. Hold on transfusion today as bp is stable and HD is not until tomorrow. Overall prognosis is guarded to poor. May need to start looking into LTACH if not able to wean. Currently on minimal settings but mental state will not allow traditional extubation. 08/01/20: Will repeat EEG at request of neurology. No MRI requested. CT and EEG report not equivalent. Trial of narcan given but no improvement. Does have urine in the bladder but no jones and prior history of obstruction requiring urology to place jones. May need to consider asking them to re-evaluate. Prognosis remains guarded to poor. 07/31/20: Will obtain, EEG and neuro consult. They will likely ask for MRI so will speak with family about obtaining screening form info. Continue PSV trials. HD per renal. Guarded to poor prognosis. 07/30/20: Mental state continues to prevent conventional extubation. HD per renal. Need to repeat Head CT to check for other damage. 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 Very very guarded prognosis. If repeat head CT is negative, will need neuro eval and EEG 07/27/20: Mental state continues to prevent conventional extubation. Currently stable on minimal vent settings. HD per renal, does not appear he was dialyzed yesterday so may get it today. If not more awake by tomorrow, suggest repeat head CT. Continue all other supportive measures. 07/26/20: Drop PEEP down to 6. Once more awake PSV trials. HD per renal. Appears to be helping, maybe they will dialyze again today. Prognosis still remains guarded. 1. Needs HD 2. Wean FiO2 and PEEP as tolerated 3. Guarded prognosis CCT 31 minutes. Subjective Date of service: 08/08/20 Principal diagnosis: RACQUEL Interval history: No acute events. Daughter visited and had family meeting. Everyone agreed with hospice. patient is leaving today. Objective Vital Signs - 12hr 08/08/20 08/08/20 08/08/20 03:00 04:00 04:26 Temperature 100.6 F H Pulse Rate 95 H 97 H 97 H Pulse Rate [ 97 H From Monitor] Respiratory 20 15 Rate Blood Pressure 106/60 99/54 99/54 O2 Sat by Pulse 99 94 100 Oximetry O2 Sat by Pulse Oximetry [ Anterior Bilateral Throughout] 08/08/20 08/08/20 08/08/20 05:00 06:00 06:08 Temperature Pulse Rate 101 H 101 H 101 H Pulse Rate [ From Monitor] Respiratory 20 19 Rate Blood Pressure 105/55 99/49 99/48 O2 Sat by Pulse 99 99 Oximetry O2 Sat by Pulse Oximetry [ Anterior Bilateral Throughout] 08/08/20 08/08/20 08/08/20 07:00 08:00 08:52 Temperature 103.1 F H Pulse Rate 104 H 104 H 96 H Pulse Rate [ From Monitor] Respiratory 22 18 Rate Blood Pressure 100/47 104/49 114/55 O2 Sat by Pulse 100 100 100 Oximetry O2 Sat by Pulse Oximetry [ Anterior Bilateral Throughout] 08/08/20 08/08/20 08/08/20 09:00 09:43 09:52 Temperature 97.5 F L Pulse Rate 94 H 96 H 89 Pulse Rate [ From Monitor] Respiratory 23 23 Rate Blood Pressure 100/49 111/58 109/57 O2 Sat by Pulse 100 Oximetry O2 Sat by Pulse 100 Oximetry [ Anterior Bilateral Throughout] 08/08/20 08/08/20 08/08/20 10:00 10:15 10:30 Temperature Pulse Rate 88 86 Pulse Rate [ From Monitor] Respiratory 21 Rate Blood Pressure 111/57 111/57 106/58 O2 Sat by Pulse 100 Oximetry O2 Sat by Pulse Oximetry [ Anterior Bilateral Throughout] 08/08/20 08/08/20 08/08/20 10:45 11:00 11:15 Temperature Pulse Rate 86 84 84 Pulse Rate [ From Monitor] Respiratory 17 Rate Blood Pressure 105/58 102/57 104/56 O2 Sat by Pulse 100 Oximetry O2 Sat by Pulse Oximetry [ Anterior Bilateral Throughout] 08/08/20 08/08/20 08/08/20 11:30 11:45 12:00 Temperature 98.4 F Pulse Rate 85 84 85 Pulse Rate [ From Monitor] Respiratory 21 Rate Blood Pressure 104/57 104/56 110/56 O2 Sat by Pulse 100 Oximetry O2 Sat by Pulse Oximetry [ Anterior Bilateral Throughout] 08/08/20 08/08/20 08/08/20 12:15 12:20 12:30 Temperature Pulse Rate 82 82 81 Pulse Rate [ From Monitor] Respiratory 18 Rate Blood Pressure 100/54 100/54 101/55 O2 Sat by Pulse 100 Oximetry O2 Sat by Pulse Oximetry [ Anterior Bilateral Throughout] 08/08/20 08/08/20 08/08/20 12:45 13:00 13:15 Temperature Pulse Rate 81 80 79 Pulse Rate [ From Monitor] Respiratory 17 Rate Blood Pressure 99/55 99/55 103/56 O2 Sat by Pulse 100 Oximetry O2 Sat by Pulse Oximetry [ Anterior Bilateral Throughout] 08/08/20 08/08/20 13:22 13:30 Temperature 97.7 F Pulse Rate 79 81 Pulse Rate [ From Monitor] Respiratory 16 Rate Blood Pressure 98/56 111/56 O2 Sat by Pulse Oximetry O2 Sat by Pulse 100 Oximetry [ Anterior Bilateral Throughout] Constitutional: appears uncomfortable (cpap, orally intubated), other (on vent orally intubated) Eyes: non-icteric ENT: epistaxis Neck: other (large in circumference) Effort: mildly labored Ascultation: Bilateral: diminished breath sounds Neurologic: non-focal exam, unable to assess CBC and BMP: 08/07/20 05:15 08/08/20 04:00 ABG, PT/INR, D-dimer: ABG ABG pH 7.520 pH Units (7.350-7.450) H 07/27/20 05:20 POC ABG pCO2 32.7 mmHg (32.0-48.0) 07/25/20 03:57 ABG pCO2 33.5 mm Hg 07/27/20 05:20 POC ABG pO2 62.7 mmHg (83-108) L 07/25/20 03:57 ABG pO2 64.2 mm Hg (80.0-90.0) L 07/27/20 05:20 POC ABG HCO3 24.8 07/25/20 03:57 ABG O2 Saturation 95.8 % (95.0-99.0) 07/27/20 05:20 PT/INR, D-dimer PT 15.9 Sec. (12.2-14.9) H 07/22/20 10:30 INR 1.27 (0.87-1.13) H 07/22/20 10:30 D-Dimer 1036.46 ng/mlDDU (0-234) H 07/18/20 08:56 Abnormal lab findings: Abnormal Labs 07/18/20 07/18/20 07/18/20 08:56 08:56 08:56 WBC 3.5 L RBC 2.51 L Hgb 8.0 L Hct 24.5 L MCV 98 H RDW 18.3 H Plt Count 58 L Lymph % (Auto) Butler % (Auto) 11.1 H Lymph # (Auto) [place] # (Auto) Seg Neutrophils % Seg Neuts % (Manual) Lymphocytes % (Manual) Nucleated RBC % Seg Neutrophils # Man Lymphocytes # (Manual) PT INR 1.18 H APTT D-Dimer ABG pH POC ABG pCO2 POC ABG pO2 ABG pO2 ABG HCO3 ABG Base Excess ABG Hemoglobin ABG Oxyhemoglobin ABG Potassium ABG Chloride ABG Glucose Oxyhemoglobin Carboxyhemoglobin Sodium 146 H Potassium 5.2 H Chloride 117.3 H Carbon Dioxide 21 L BUN 52 H Creatinine 3.1 H Glucose 118 H POC Glucose Calcium 8.1 L Phosphorus AST ALT Alkaline Phosphatase Lactate Dehydrogenase CK-MB (CK-2) CK-MB (CK-2) Rel Index Troponin T 0.057 H C-Reactive Protein NT-Pro-B Natriuret Pep Albumin HDL Cholesterol 67 H TSH Arterial Blood Glucose Arterial Blood Ionized Calcium Hepatitis C Antibody Crossmatch 07/18/20 07/18/20 07/18/20 08:56 08:56 08:56 WBC RBC Hgb Hct MCV RDW Plt Count Lymph % (Auto) [place] % (Auto) Lymph # (Auto) [place] # (Auto) Seg Neutrophils % Seg Neuts % (Manual) Lymphocytes % (Manual) Nucleated RBC % Seg Neutrophils # Man Lymphocytes # (Manual) PT INR APTT D-Dimer 1036.46 H ABG pH POC ABG pCO2 POC ABG pO2 ABG pO2 ABG HCO3 ABG Base Excess ABG Hemoglobin ABG Oxyhemoglobin ABG Potassium ABG Chloride ABG Glucose Oxyhemoglobin Carboxyhemoglobin Sodium Potassium Chloride Carbon Dioxide BUN Creatinine Glucose POC Glucose Calcium Phosphorus AST ALT Alkaline Phosphatase Lactate Dehydrogenase CK-MB (CK-2) CK-MB (CK-2) Rel Index Troponin T C-Reactive Protein NT-Pro-B Natriuret Pep 4777 H Albumin HDL Cholesterol TSH 5.520 H Arterial Blood Glucose Arterial Blood Ionized Calcium Hepatitis C Antibody Crossmatch 07/18/20 07/18/20 07/18/20 10:36 18:56 19:00 WBC RBC Hgb Hct MCV RDW Plt Count Lymph % (Auto) [place] % (Auto) Lymph # (Auto) [place] # (Auto) Seg Neutrophils % Seg Neuts % (Manual) Lymphocytes % (Manual) Nucleated RBC % Seg Neutrophils # Man Lymphocytes # (Manual) PT INR APTT D-Dimer ABG pH POC ABG pCO2 POC ABG pO2 ABG pO2 ABG HCO3 ABG Base Excess ABG Hemoglobin ABG Oxyhemoglobin ABG Potassium ABG Chloride ABG Glucose Oxyhemoglobin Carboxyhemoglobin Sodium Potassium Chloride Carbon Dioxide BUN Creatinine Glucose 101 H POC Glucose 66 L 63 L Calcium Phosphorus AST ALT Alkaline Phosphatase Lactate Dehydrogenase 212 H CK-MB (CK-2) CK-MB (CK-2) Rel Index Troponin T C-Reactive Protein 2.10 H NT-Pro-B Natriuret Pep Albumin HDL Cholesterol TSH Arterial Blood Glucose Arterial Blood Ionized Calcium Hepatitis C Antibody Crossmatch 07/19/20 07/19/20 07/19/20 06:00 06:00 16:26 WBC 3.9 L RBC 2.34 L Hgb 7.5 L Hct 23.1 L MCV 99 H RDW 18.6 H Plt Count 52 L Lymph % (Auto) [place] % (Auto) 9.4 H Lymph # (Auto) 1.0 L [place] # (Auto) Seg Neutrophils % Seg Neuts % (Manual) Lymphocytes % (Manual) Nucleated RBC % Seg Neutrophils # Man Lymphocytes # (Manual) PT INR APTT D-Dimer ABG pH POC ABG pCO2 POC ABG pO2 ABG pO2 ABG HCO3 ABG Base Excess ABG Hemoglobin ABG Oxyhemoglobin ABG Potassium ABG Chloride ABG Glucose Oxyhemoglobin Carboxyhemoglobin Sodium Potassium 5.3 H Chloride 115.8 H Carbon Dioxide BUN 52 H Creatinine 3.4 H Glucose 114 H POC Glucose 123 H Calcium 7.7 L Phosphorus AST 77 H ALT < 5 L Alkaline Phosphatase 678 H Lactate Dehydrogenase CK-MB (CK-2) CK-MB (CK-2) Rel Index Troponin T C-Reactive Protein NT-Pro-B Natriuret Pep Albumin 2.2 L HDL Cholesterol TSH Arterial Blood Glucose Arterial Blood Ionized Calcium Hepatitis C Antibody Crossmatch 07/19/20 07/20/20 07/20/20 21:20 08:25 08:25 WBC 3.6 L RBC 2.54 L Hgb 8.0 L Hct 24.6 L MCV 97 H RDW 18.0 H Plt Count 47 L Lymph % (Auto) [place] % (Auto) 9.8 H Lymph # (Auto) 0.9 L Butler # (Auto) Seg Neutrophils % Seg Neuts % (Manual) Lymphocytes % (Manual) Nucleated RBC % Seg Neutrophils # Man Lymphocytes # (Manual) PT INR APTT D-Dimer ABG pH POC ABG pCO2 POC ABG pO2 ABG pO2 ABG HCO3 ABG Base Excess ABG Hemoglobin ABG Oxyhemoglobin ABG Potassium ABG Chloride ABG Glucose Oxyhemoglobin Carboxyhemoglobin Sodium Potassium 5.4 H Chloride 115.8 H Carbon Dioxide BUN 56 H Creatinine 3.8 H Glucose 110 H POC Glucose 142 H Calcium 7.9 L Phosphorus AST ALT Alkaline Phosphatase Lactate Dehydrogenase CK-MB (CK-2) CK-MB (CK-2) Rel Index Troponin T C-Reactive Protein NT-Pro-B Natriuret Pep Albumin HDL Cholesterol TSH Arterial Blood Glucose Arterial Blood Ionized Calcium Hepatitis C Antibody Crossmatch 07/20/20 07/20/20 07/20/20 11:27 16:34 21:27 WBC RBC Hgb Hct MCV RDW Plt Count Lymph % (Auto) [place] % (Auto) Lymph # (Auto) [place] # (Auto) Seg Neutrophils % Seg Neuts % (Manual) Lymphocytes % (Manual) Nucleated RBC % Seg Neutrophils # Man Lymphocytes # (Manual) PT INR APTT D-Dimer ABG pH POC ABG pCO2 POC ABG pO2 ABG pO2 ABG HCO3 ABG Base Excess ABG Hemoglobin ABG Oxyhemoglobin ABG Potassium ABG Chloride ABG Glucose Oxyhemoglobin Carboxyhemoglobin Sodium Potassium Chloride Carbon Dioxide BUN Creatinine Glucose POC Glucose 136 H 186 H 175 H Calcium Phosphorus AST ALT Alkaline Phosphatase Lactate Dehydrogenase CK-MB (CK-2) CK-MB (CK-2) Rel Index Troponin T C-Reactive Protein NT-Pro-B Natriuret Pep Albumin HDL Cholesterol TSH Arterial Blood Glucose Arterial Blood Ionized Calcium Hepatitis C Antibody Crossmatch 07/21/20 07/22/20 07/22/20 10:31 07:25 10:30 WBC 3.8 L RBC 2.53 L Hgb 7.9 L Hct 24.7 L MCV 98 H RDW 18.7 H Plt Count 35 L Lymph % (Auto) [place] % (Auto) Lymph # (Auto) [place] # (Auto) Seg Neutrophils % Seg Neuts % (Manual) 92.0 H Lymphocytes % (Manual) 6.0 L Nucleated RBC % 13.0 H Seg Neutrophils # Man Lymphocytes # (Manual) 0.2 L PT INR APTT D-Dimer ABG pH POC ABG pCO2 POC ABG pO2 ABG pO2 ABG HCO3 ABG Base Excess ABG Hemoglobin ABG Oxyhemoglobin ABG Potassium ABG Chloride ABG Glucose Oxyhemoglobin Carboxyhemoglobin Sodium Potassium 5.3 H 5.6 H Chloride 115.0 H 115.1 H Carbon Dioxide 18 L BUN 59 H 61 H Creatinine 4.3 H 4.6 H Glucose 109 H POC Glucose Calcium 7.6 L 7.6 L Phosphorus AST ALT Alkaline Phosphatase Lactate Dehydrogenase CK-MB (CK-2) CK-MB (CK-2) Rel Index Troponin T C-Reactive Protein NT-Pro-B Natriuret Pep Albumin HDL Cholesterol TSH Arterial Blood Glucose Arterial Blood Ionized Calcium Hepatitis C Antibody Crossmatch 03/07/22/20 07/22/20 10:30 10:30 10:30 WBC RBC Hgb Hct MCV RDW Plt Count Lymph % (Auto) [place] % (Auto) Lymph # (Auto) [place] # (Auto) Seg Neutrophils % Seg Neuts % (Manual) Lymphocytes % (Manual) Nucleated RBC % Seg Neutrophils # Man Lymphocytes # (Manual) PT 15.9 H INR 1.27 H APTT 38.3 H D-Dimer ABG pH POC ABG pCO2 POC ABG pO2 ABG pO2 ABG HCO3 ABG Base Excess ABG Hemoglobin ABG Oxyhemoglobin ABG Potassium ABG Chloride ABG Glucose Oxyhemoglobin Carboxyhemoglobin Sodium 146 H Potassium 5.4 H Chloride 116.4 H Carbon Dioxide BUN 61 H Creatinine 4.6 H Glucose 115 H POC Glucose Calcium 7.5 L Phosphorus 5.80 H AST 66 H ALT < 5 L Alkaline Phosphatase 604 H Lactate Dehydrogenase CK-MB (CK-2) 10.9 H CK-MB (CK-2) Rel Index 16.2 H Troponin T 0.047 H C-Reactive Protein NT-Pro-B Natriuret Pep Albumin 2.1 L HDL Cholesterol TSH Arterial Blood Glucose Arterial Blood Ionized Calcium Hepatitis C Antibody Crossmatch 07/22/20 07/23/20 07/23/20 11:10 03:38 03:47 WBC RBC Hgb Hct MCV RDW Plt Count Lymph % (Auto) [place] % (Auto) Lymph # (Auto) [place] # (Auto) Seg Neutrophils % Seg Neuts % (Manual) Lymphocytes % (Manual) Nucleated RBC % Seg Neutrophils # Man Lymphocytes # (Manual) PT INR APTT D-Dimer ABG pH 7.203 L POC ABG pCO2 48.7 H 29.7 L POC ABG pO2 80.6 L 267.3 H ABG pO2 ABG HCO3 ABG Base Excess ABG Hemoglobin 8.6 L 8.2 L ABG Oxyhemoglobin 91.1 L 98.2 H ABG Potassium 5.4 H 5.4 H ABG Chloride 122.0 H 122.0 H ABG Glucose 105 H 101 H Oxyhemoglobin Carboxyhemoglobin 2.0 H Sodium Potassium Chloride Carbon Dioxide BUN Creatinine Glucose POC Glucose 65 L Calcium Phosphorus AST ALT Alkaline Phosphatase Lactate Dehydrogenase CK-MB (CK-2) CK-MB (CK-2) Rel Index Troponin T C-Reactive Protein NT-Pro-B Natriuret Pep Albumin HDL Cholesterol TSH Arterial Blood Glucose 105 H 101 H Arterial Blood Ionized Calcium 4.5 L 4.4 L Hepatitis C Antibody Crossmatch 07/23/20 07/23/20 07/23/20 06:05 06:05 06:27 WBC RBC 2.36 L Hgb 7.5 L Hct 22.7 L MCV 96 H RDW 18.9 H Plt Count 42 L Lymph % (Auto) [place] % (Auto) Lymph # (Auto) [place] # (Auto) Seg Neutrophils % Seg Neuts % (Manual) Lymphocytes % (Manual) Nucleated RBC % Seg Neutrophils # Man Lymphocytes # (Manual) PT INR APTT D-Dimer ABG pH POC ABG pCO2 POC ABG pO2 ABG pO2 ABG HCO3 ABG Base Excess ABG Hemoglobin ABG Oxyhemoglobin ABG Potassium ABG Chloride ABG Glucose Oxyhemoglobin Carboxyhemoglobin Sodium Potassium 5.6 H Chloride 114.1 H Carbon Dioxide 17 L BUN 62 H Creatinine 5.1 H Glucose 215 H POC Glucose 114 H Calcium 7.3 L Phosphorus AST ALT Alkaline Phosphatase Lactate Dehydrogenase CK-MB (CK-2) CK-MB (CK-2) Rel Index Troponin T C-Reactive Protein NT-Pro-B Natriuret Pep Albumin HDL Cholesterol TSH Arterial Blood Glucose Arterial Blood Ionized Calcium Hepatitis C Antibody Crossmatch 07/23/20 07/23/20 07/24/20 11:36 19:20 04:00 WBC RBC Hgb Hct MCV RDW Plt Count Lymph % (Auto) [place] % (Auto) Lymph # (Auto) [place] # (Auto) Seg Neutrophils % Seg Neuts % (Manual) Lymphocytes % (Manual) Nucleated RBC % Seg Neutrophils # Man Lymphocytes # (Manual) PT INR APTT D-Dimer ABG pH POC ABG pCO2 POC ABG pO2 ABG pO2 ABG HCO3 ABG Base Excess ABG Hemoglobin ABG Oxyhemoglobin ABG Potassium ABG Chloride ABG Glucose Oxyhemoglobin Carboxyhemoglobin Sodium Potassium Chloride 110.8 H Carbon Dioxide BUN 47 H Creatinine 4.4 H Glucose POC Glucose 66 L Calcium 7.3 L Phosphorus AST ALT Alkaline Phosphatase Lactate Dehydrogenase CK-MB (CK-2) CK-MB (CK-2) Rel Index Troponin T C-Reactive Protein NT-Pro-B Natriuret Pep Albumin HDL Cholesterol TSH Arterial Blood Glucose Arterial Blood Ionized Calcium Hepatitis C Antibody Reactive A Crossmatch 07/24/20 07/24/2021 04:25 11:37 Unknown WBC RBC 2.36 L Hgb 7.5 L Hct 22.5 L MCV 95 H RDW 18.4 H Plt Count 38 L Lymph % (Auto) [place] % (Auto) Lymph # (Auto) [place] # (Auto) Seg Neutrophils % Seg Neuts % (Manual) Lymphocytes % (Manual) Nucleated RBC % Seg Neutrophils # Man Lymphocytes # (Manual) PT INR APTT D-Dimer ABG pH POC ABG pCO2 POC ABG pO2 64.8 L ABG pO2 ABG HCO3 ABG Base Excess ABG Hemoglobin 7.9 L ABG Oxyhemoglobin ABG Potassium ABG Chloride 114.0 H ABG Glucose Oxyhemoglobin Carboxyhemoglobin Sodium Potassium Chloride Carbon Dioxide BUN Creatinine Glucose POC Glucose 109 H Calcium Phosphorus AST ALT Alkaline Phosphatase Lactate Dehydrogenase CK-MB (CK-2) CK-MB (CK-2) Rel Index Troponin T C-Reactive Protein NT-Pro-B Natriuret Pep Albumin HDL Cholesterol TSH Arterial Blood Glucose Arterial Blood Ionized Calcium 4.2 L Hepatitis C Antibody Crossmatch 07/25/20 07/25/20 07/25/20 00:12 03:57 04:00 WBC RBC Hgb Hct MCV RDW Plt Count Lymph % (Auto) [place] % (Auto) Lymph # (Auto) [place] # (Auto) Seg Neutrophils % Seg Neuts % (Manual) Lymphocytes % (Manual) Nucleated RBC % Seg Neutrophils # Man Lymphocytes # (Manual) PT INR APTT D-Dimer ABG pH 7.497 H POC ABG pCO2 POC ABG pO2 62.7 L ABG pO2 ABG HCO3 ABG Base Excess ABG Hemoglobin 8.5 L ABG Oxyhemoglobin 90.1 L ABG Potassium ABG Chloride 110.0 H ABG Glucose 157 H Oxyhemoglobin Carboxyhemoglobin Sodium Potassium Chloride Carbon Dioxide BUN 38 H Creatinine 4.1 H Glucose 160 H POC Glucose 140 H Calcium 7.9 L Phosphorus AST ALT Alkaline Phosphatase Lactate Dehydrogenase CK-MB (CK-2) CK-MB (CK-2) Rel Index Troponin T C-Reactive Protein NT-Pro-B Natriuret Pep Albumin HDL Cholesterol TSH Arterial Blood Glucose 157 H Arterial Blood Ionized Calcium 4.3 L Hepatitis C Antibody Crossmatch 07/25/20 07/25/20 07/25/20 04:00 06:24 12:11 WBC RBC 2.48 L Hgb 7.7 L Hct 23.2 L MCV RDW 18.4 H Plt Count 44 L Lymph % (Auto) [place] % (Auto) 8.5 H Lymph # (Auto) [place] # (Auto) Seg Neutrophils % 76.7 H Seg Neuts % (Manual) Lymphocytes % (Manual) Nucleated RBC % Seg Neutrophils # Man Lymphocytes # (Manual) PT INR APTT D-Dimer ABG pH POC ABG pCO2 POC ABG pO2 ABG pO2 ABG HCO3 ABG Base Excess ABG Hemoglobin ABG Oxyhemoglobin ABG Potassium ABG Chloride ABG Glucose Oxyhemoglobin Carboxyhemoglobin Sodium Potassium Chloride Carbon Dioxide BUN Creatinine Glucose POC Glucose 155 H 205 H Calcium Phosphorus AST ALT Alkaline Phosphatase Lactate Dehydrogenase CK-MB (CK-2) CK-MB (CK-2) Rel Index Troponin T C-Reactive Protein NT-Pro-B Natriuret Pep Albumin HDL Cholesterol TSH Arterial Blood Glucose Arterial Blood Ionized Calcium Hepatitis C Antibody Crossmatch 07/25/20 07/26/20 07/26/20 17:41 00:18 03:54 WBC RBC Hgb Hct MCV RDW Plt Count Lymph % (Auto) [place] % (Auto) Lymph # (Auto) [place] # (Auto) Seg Neutrophils % Seg Neuts % (Manual) Lymphocytes % (Manual) Nucleated RBC % Seg Neutrophils # Man Lymphocytes # (Manual) PT INR APTT D-Dimer ABG pH 7.512 H POC ABG pCO2 POC ABG pO2 ABG pO2 121.2 H ABG HCO3 27.1 H ABG Base Excess 3.6 H ABG Hemoglobin < 5.1 L ABG Oxyhemoglobin ABG Potassium ABG Chloride ABG Glucose Oxyhemoglobin Carboxyhemoglobin Sodium Potassium Chloride Carbon Dioxide BUN Creatinine Glucose POC Glucose 227 H 198 H Calcium Phosphorus AST ALT Alkaline Phosphatase Lactate Dehydrogenase CK-MB (CK-2) CK-MB (CK-2) Rel Index Troponin T C-Reactive Protein NT-Pro-B Natriuret Pep Albumin HDL Cholesterol TSH Arterial Blood Glucose Arterial Blood Ionized Calcium Hepatitis C Antibody Crossmatch 07/26/20 07/26/20 07/26/20 06:31 07:00 12:09 WBC RBC 2.33 L Hgb 7.4 L Hct 21.6 L MCV RDW 18.0 H Plt Count 50 L Lymph % (Auto) 13.0 L [place] % (Auto) Lymph # (Auto) [place] # (Auto) Seg Neutrophils % 79.8 H Seg Neuts % (Manual) Lymphocytes % (Manual) Nucleated RBC % Seg Neutrophils # Man Lymphocytes # (Manual) PT INR APTT D-Dimer ABG pH POC ABG pCO2 POC ABG pO2 ABG pO2 ABG HCO3 ABG Base Excess ABG Hemoglobin ABG Oxyhemoglobin ABG Potassium ABG Chloride ABG Glucose Oxyhemoglobin Carboxyhemoglobin Sodium Potassium Chloride Carbon Dioxide BUN Creatinine Glucose POC Glucose 223 H 250 H Calcium Phosphorus AST ALT Alkaline Phosphatase Lactate Dehydrogenase CK-MB (CK-2) CK-MB (CK-2) Rel Index Troponin T C-Reactive Protein NT-Pro-B Natriuret Pep Albumin HDL Cholesterol TSH Arterial Blood Glucose Arterial Blood Ionized Calcium Hepatitis C Antibody Crossmatch 07/26/20 07/26/20 07/27/20 17:40 23:26 05:20 WBC RBC Hgb Hct MCV RDW Plt Count Lymph % (Auto) [place] % (Auto) Lymph # (Auto) [place] # (Auto) Seg Neutrophils % Seg Neuts % (Manual) Lymphocytes % (Manual) Nucleated RBC % Seg Neutrophils # Man Lymphocytes # (Manual) PT INR APTT D-Dimer ABG pH 7.520 H POC ABG pCO2 POC ABG pO2 ABG pO2 64.2 L ABG HCO3 26.8 H ABG Base Excess 3.7 H ABG Hemoglobin 7.2 L ABG Oxyhemoglobin ABG Potassium ABG Chloride ABG Glucose Oxyhemoglobin 93.2 L Carboxyhemoglobin Sodium Potassium Chloride Carbon Dioxide BUN Creatinine Glucose POC Glucose 226 H 176 H Calcium Phosphorus AST ALT Alkaline Phosphatase Lactate Dehydrogenase CK-MB (CK-2) CK-MB (CK-2) Rel Index Troponin T C-Reactive Protein NT-Pro-B Natriuret Pep Albumin HDL Cholesterol TSH Arterial Blood Glucose Arterial Blood Ionized Calcium Hepatitis C Antibody Crossmatch 07/27/20 07/27/20 07/27/20 05:42 06:36 06:36 WBC RBC 2.23 L Hgb 7.0 L Hct 20.7 L MCV RDW 18.4 H Plt Count 56 L Lymph % (Auto) [place] % (Auto) Lymph # (Auto) [place] # (Auto) Seg Neutrophils % Seg Neuts % (Manual) 88.0 H Lymphocytes % (Manual) 11.0 L Nucleated RBC % 2.0 H Seg Neutrophils # Man 8.9 H Lymphocytes # (Manual) 1.1 L PT INR APTT D-Dimer ABG pH POC ABG pCO2 POC ABG pO2 ABG pO2 ABG HCO3 ABG Base Excess ABG Hemoglobin ABG Oxyhemoglobin ABG Potassium ABG Chloride ABG Glucose Oxyhemoglobin Carboxyhemoglobin Sodium Potassium Chloride Carbon Dioxide BUN 43 H Creatinine 4.4 H Glucose 162 H POC Glucose 142 H Calcium 8.2 L Phosphorus AST ALT Alkaline Phosphatase Lactate Dehydrogenase CK-MB (CK-2) CK-MB (CK-2) Rel Index Troponin T C-Reactive Protein NT-Pro-B Natriuret Pep Albumin HDL Cholesterol TSH Arterial Blood Glucose Arterial Blood Ionized Calcium Hepatitis C Antibody Crossmatch 07/27/20 07/27/20 07/27/20 11:42 17:37 23:15 WBC RBC Hgb Hct MCV RDW Plt Count Lymph % (Auto) [place] % (Auto) Lymph # (Auto) [place] # (Auto) Seg Neutrophils % Seg Neuts % (Manual) Lymphocytes % (Manual) Nucleated RBC % Seg Neutrophils # Man Lymphocytes # (Manual) PT INR APTT D-Dimer ABG pH POC ABG pCO2 POC ABG pO2 ABG pO2 ABG HCO3 ABG Base Excess ABG Hemoglobin ABG Oxyhemoglobin ABG Potassium ABG Chloride ABG Glucose Oxyhemoglobin Carboxyhemoglobin Sodium Potassium Chloride Carbon Dioxide BUN Creatinine Glucose POC Glucose 134 H 169 H 173 H Calcium Phosphorus AST ALT Alkaline Phosphatase Lactate Dehydrogenase CK-MB (CK-2) CK-MB (CK-2) Rel Index Troponin T C-Reactive Protein NT-Pro-B Natriuret Pep Albumin HDL Cholesterol TSH Arterial Blood Glucose Arterial Blood Ionized Calcium Hepatitis C Antibody Crossmatch 07/28/20 07/28/20 07/28/20 04:00 05:14 10:15 WBC RBC 2.13 L Hgb 6.8 L Hct 19.9 L* MCV RDW 18.4 H Plt Count 55 L Lymph % (Auto) [place] % (Auto) 9.1 H Lymph # (Auto) [place] # (Auto) 0.9 H Seg Neutrophils % 74.5 H Seg Neuts % (Manual) Lymphocytes % (Manual) Nucleated RBC % Seg Neutrophils # Man Lymphocytes # (Manual) PT INR APTT D-Dimer ABG pH POC ABG pCO2 POC ABG pO2 ABG pO2 ABG HCO3 ABG Base Excess ABG Hemoglobin ABG Oxyhemoglobin ABG Potassium ABG Chloride ABG Glucose Oxyhemoglobin Carboxyhemoglobin Sodium Potassium Chloride Carbon Dioxide BUN Creatinine Glucose POC Glucose 169 H Calcium Phosphorus AST ALT Alkaline Phosphatase Lactate Dehydrogenase CK-MB (CK-2) CK-MB (CK-2) Rel Index Troponin T C-Reactive Protein NT-Pro-B Natriuret Pep Albumin HDL Cholesterol TSH Arterial Blood Glucose Arterial Blood Ionized Calcium Hepatitis C Antibody Crossmatch See Detail 07/28/20 07/28/20 07/28/20 11:32 17:28 23:58 WBC RBC Hgb Hct MCV RDW Plt Count Lymph % (Auto) [place] % (Auto) Lymph # (Auto) [place] # (Auto) Seg Neutrophils % Seg Neuts % (Manual) Lymphocytes % (Manual) Nucleated RBC % Seg Neutrophils # Man Lymphocytes # (Manual) PT INR APTT D-Dimer ABG pH POC ABG pCO2 POC ABG pO2 ABG pO2 ABG HCO3 ABG Base Excess ABG Hemoglobin ABG Oxyhemoglobin ABG Potassium ABG Chloride ABG Glucose Oxyhemoglobin Carboxyhemoglobin Sodium Potassium Chloride Carbon Dioxide BUN Creatinine Glucose POC Glucose 185 H 208 H 227 H Calcium Phosphorus AST ALT Alkaline Phosphatase Lactate Dehydrogenase CK-MB (CK-2) CK-MB (CK-2) Rel Index Troponin T C-Reactive Protein NT-Pro-B Natriuret Pep Albumin HDL Cholesterol TSH Arterial Blood Glucose Arterial Blood Ionized Calcium Hepatitis C Antibody Crossmatch 07/29/20 07/29/20 07/29/20 05:37 12:04 17:11 WBC RBC Hgb Hct MCV RDW Plt Count Lymph % (Auto) [place] % (Auto) Lymph # (Auto) [place] # (Auto) Seg Neutrophils % Seg Neuts % (Manual) Lymphocytes % (Manual) Nucleated RBC % Seg Neutrophils # Man Lymphocytes # (Manual) PT INR APTT D-Dimer ABG pH POC ABG pCO2 POC ABG pO2 ABG pO2 ABG HCO3 ABG Base Excess ABG Hemoglobin ABG Oxyhemoglobin ABG Potassium ABG Chloride ABG Glucose Oxyhemoglobin Carboxyhemoglobin Sodium Potassium Chloride Carbon Dioxide BUN Creatinine Glucose POC Glucose 225 H 201 H 185 H Calcium Phosphorus AST ALT Alkaline Phosphatase Lactate Dehydrogenase CK-MB (CK-2) CK-MB (CK-2) Rel Index Troponin T C-Reactive Protein NT-Pro-B Natriuret Pep Albumin HDL Cholesterol TSH Arterial Blood Glucose Arterial Blood Ionized Calcium Hepatitis C Antibody Crossmatch 07/29/20 07/30/20 07/30/20 23:48 05:38 09:05 WBC RBC 2.49 L Hgb 7.7 L Hct 23.1 L MCV RDW 20.5 H Plt Count 54 L Lymph % (Auto) [place] % (Auto) Lymph # (Auto) [place] # (Auto) Seg Neutrophils % Seg Neuts % (Manual) Lymphocytes % (Manual) Nucleated RBC % Seg Neutrophils # Man Lymphocytes # (Manual) PT INR APTT D-Dimer ABG pH POC ABG pCO2 POC ABG pO2 ABG pO2 ABG HCO3 ABG Base Excess ABG Hemoglobin ABG Oxyhemoglobin ABG Potassium ABG Chloride ABG Glucose Oxyhemoglobin Carboxyhemoglobin Sodium Potassium Chloride Carbon Dioxide BUN Creatinine Glucose POC Glucose 209 H 205 H Calcium Phosphorus AST ALT Alkaline Phosphatase Lactate Dehydrogenase CK-MB (CK-2) CK-MB (CK-2) Rel Index Troponin T C-Reactive Protein NT-Pro-B Natriuret Pep Albumin HDL Cholesterol TSH Arterial Blood Glucose Arterial Blood Ionized Calcium Hepatitis C Antibody Crossmatch 07/30/20 07/30/20 07/30/20 09:05 11:42 17:46 WBC RBC Hgb Hct MCV RDW Plt Count Lymph % (Auto) [place] % (Auto) Lymph # (Auto) [place] # (Auto) Seg Neutrophils % Seg Neuts % (Manual) Lymphocytes % (Manual) Nucleated RBC % Seg Neutrophils # Man Lymphocytes # (Manual) PT INR APTT D-Dimer ABG pH POC ABG pCO2 POC ABG pO2 ABG pO2 ABG HCO3 ABG Base Excess ABG Hemoglobin ABG Oxyhemoglobin ABG Potassium ABG Chloride ABG Glucose Oxyhemoglobin Carboxyhemoglobin Sodium 135 L Potassium Chloride Carbon Dioxide BUN 52 H Creatinine 4.1 H Glucose 236 H POC Glucose 224 H 195 H Calcium Phosphorus AST ALT Alkaline Phosphatase Lactate Dehydrogenase CK-MB (CK-2) CK-MB (CK-2) Rel Index Troponin T C-Reactive Protein NT-Pro-B Natriuret Pep Albumin HDL Cholesterol TSH Arterial Blood Glucose Arterial Blood Ionized Calcium Hepatitis C Antibody Crossmatch 07/30/20 07/30/20 07/31/20 21:09 23:45 05:10 WBC RBC 2.46 L Hgb 7.6 L Hct 22.6 L MCV RDW 19.4 H Plt Count 77 L Lymph % (Auto) [place] % (Auto) Lymph # (Auto) [place] # (Auto) Seg Neutrophils % Seg Neuts % (Manual) Lymphocytes % (Manual) Nucleated RBC % Seg Neutrophils # Man Lymphocytes # (Manual) PT INR APTT D-Dimer ABG pH POC ABG pCO2 POC ABG pO2 ABG pO2 ABG HCO3 ABG Base Excess ABG Hemoglobin ABG Oxyhemoglobin ABG Potassium ABG Chloride ABG Glucose Oxyhemoglobin Carboxyhemoglobin Sodium Potassium Chloride Carbon Dioxide BUN Creatinine Glucose POC Glucose 153 H 185 H Calcium Phosphorus AST ALT Alkaline Phosphatase Lactate Dehydrogenase CK-MB (CK-2) CK-MB (CK-2) Rel Index Troponin T C-Reactive Protein NT-Pro-B Natriuret Pep Albumin HDL Cholesterol TSH Arterial Blood Glucose Arterial Blood Ionized Calcium Hepatitis C Antibody Crossmatch 07/31/20 07/31/20 07/31/20 05:17 11:48 17:20 WBC RBC Hgb Hct MCV RDW Plt Count Lymph % (Auto) [place] % (Auto) Lymph # (Auto) [place] # (Auto) Seg Neutrophils % Seg Neuts % (Manual) Lymphocytes % (Manual) Nucleated RBC % Seg Neutrophils # Man Lymphocytes # (Manual) PT INR APTT D-Dimer ABG pH POC ABG pCO2 POC ABG pO2 ABG pO2 ABG HCO3 ABG Base Excess ABG Hemoglobin ABG Oxyhemoglobin ABG Potassium ABG Chloride ABG Glucose Oxyhemoglobin Carboxyhemoglobin Sodium Potassium Chloride Carbon Dioxide BUN Creatinine Glucose POC Glucose 163 H 144 H 133 H Calcium Phosphorus AST ALT Alkaline Phosphatase Lactate Dehydrogenase CK-MB (CK-2) CK-MB (CK-2) Rel Index Troponin T C-Reactive Protein NT-Pro-B Natriuret Pep Albumin HDL Cholesterol TSH Arterial Blood Glucose Arterial Blood Ionized Calcium Hepatitis C Antibody Crossmatch 07/31/20 08/01/20 08/01/20 23:04 05:22 05:22 WBC RBC 2.26 L Hgb 7.0 L Hct 21.0 L MCV RDW 19.6 H Plt Count 85 L Lymph % (Auto) [place] % (Auto) Lymph # (Auto) [place] # (Auto) Seg Neutrophils % Seg Neuts % (Manual) Lymphocytes % (Manual) Nucleated RBC % Seg Neutrophils # Man Lymphocytes # (Manual) PT INR APTT D-Dimer ABG pH POC ABG pCO2 POC ABG pO2 ABG pO2 ABG HCO3 ABG Base Excess ABG Hemoglobin ABG Oxyhemoglobin ABG Potassium ABG Chloride ABG Glucose Oxyhemoglobin Carboxyhemoglobin Sodium 133 L Potassium Chloride Carbon Dioxide BUN 57 H Creatinine 4.4 H Glucose 166 H POC Glucose 140 H Calcium 7.8 L Phosphorus 5.10 H AST ALT Alkaline Phosphatase Lactate Dehydrogenase CK-MB (CK-2) CK-MB (CK-2) Rel Index Troponin T C-Reactive Protein NT-Pro-B Natriuret Pep Albumin HDL Cholesterol TSH Arterial Blood Glucose Arterial Blood Ionized Calcium Hepatitis C Antibody Crossmatch 08/01/20 08/01/20 08/01/20 05:49 11:18 17:33 WBC RBC Hgb Hct MCV RDW Plt Count Lymph % (Auto) [place] % (Auto) Lymph # (Auto) [place] # (Auto) Seg Neutrophils % Seg Neuts % (Manual) Lymphocytes % (Manual) Nucleated RBC % Seg Neutrophils # Man Lymphocytes # (Manual) PT INR APTT D-Dimer ABG pH POC ABG pCO2 POC ABG pO2 ABG pO2 ABG HCO3 ABG Base Excess ABG Hemoglobin ABG Oxyhemoglobin ABG Potassium ABG Chloride ABG Glucose Oxyhemoglobin Carboxyhemoglobin Sodium Potassium Chloride Carbon Dioxide BUN Creatinine Glucose POC Glucose 154 H 128 H 133 H Calcium Phosphorus AST ALT Alkaline Phosphatase Lactate Dehydrogenase CK-MB (CK-2) CK-MB (CK-2) Rel Index Troponin T C-Reactive Protein NT-Pro-B Natriuret Pep Albumin HDL Cholesterol TSH Arterial Blood Glucose Arterial Blood Ionized Calcium Hepatitis C Antibody Crossmatch 08/01/20 08/02/20 08/02/20 21:32 05:25 05:29 WBC RBC 2.14 L Hgb 6.7 L Hct 20.0 L MCV RDW 19.4 H Plt Count 104 L Lymph % (Auto) [place] % (Auto) Lymph # (Auto) [place] # (Auto) Seg Neutrophils % Seg Neuts % (Manual) Lymphocytes % (Manual) Nucleated RBC % Seg Neutrophils # Man Lymphocytes # (Manual) PT INR APTT D-Dimer ABG pH POC ABG pCO2 POC ABG pO2 ABG pO2 ABG HCO3 ABG Base Excess ABG Hemoglobin ABG Oxyhemoglobin ABG Potassium ABG Chloride ABG Glucose Oxyhemoglobin Carboxyhemoglobin Sodium Potassium Chloride Carbon Dioxide BUN Creatinine Glucose POC Glucose 139 H 145 H Calcium Phosphorus AST ALT Alkaline Phosphatase Lactate Dehydrogenase CK-MB (CK-2) CK-MB (CK-2) Rel Index Troponin T C-Reactive Protein NT-Pro-B Natriuret Pep Albumin HDL Cholesterol TSH Arterial Blood Glucose Arterial Blood Ionized Calcium Hepatitis C Antibody Crossmatch 08/02/20 08/03/20 08/03/20 18:09 04:00 04:00 WBC 11.6 H RBC 2.20 L Hgb 6.7 L Hct 20.4 L MCV RDW 18.8 H Plt Count 127 L Lymph % (Auto) [place] % (Auto) Lymph # (Auto) [place] # (Auto) Seg Neutrophils % Seg Neuts % (Manual) Lymphocytes % (Manual) Nucleated RBC % Seg Neutrophils # Man Lymphocytes # (Manual) PT INR APTT D-Dimer ABG pH POC ABG pCO2 POC ABG pO2 ABG pO2 ABG HCO3 ABG Base Excess ABG Hemoglobin ABG Oxyhemoglobin ABG Potassium ABG Chloride ABG Glucose Oxyhemoglobin Carboxyhemoglobin Sodium Potassium Chloride Carbon Dioxide BUN Creatinine Glucose POC Glucose 141 H Calcium Phosphorus AST ALT Alkaline Phosphatase Lactate Dehydrogenase CK-MB (CK-2) CK-MB (CK-2) Rel Index Troponin T C-Reactive Protein NT-Pro-B Natriuret Pep Albumin HDL Cholesterol TSH Arterial Blood Glucose Arterial Blood Ionized Calcium Hepatitis C Antibody Crossmatch See Detail 08/03/20 08/03/20 08/03/20 04:00 05:33 09:30 WBC RBC Hgb 6.6 L Hct 19.6 L* MCV RDW Plt Count Lymph % (Auto) [place] % (Auto) Lymph # (Auto) [place] # (Auto) Seg Neutrophils % Seg Neuts % (Manual) Lymphocytes % (Manual) Nucleated RBC % Seg Neutrophils # Man Lymphocytes # (Manual) PT INR APTT D-Dimer ABG pH POC ABG pCO2 POC ABG pO2 ABG pO2 ABG HCO3 ABG Base Excess ABG Hemoglobin ABG Oxyhemoglobin ABG Potassium ABG Chloride ABG Glucose Oxyhemoglobin Carboxyhemoglobin Sodium Potassium Chloride Carbon Dioxide BUN 33 H Creatinine 2.7 H Glucose 101 H POC Glucose 117 H Calcium 8.0 L Phosphorus AST ALT Alkaline Phosphatase Lactate Dehydrogenase CK-MB (CK-2) CK-MB (CK-2) Rel Index Troponin T C-Reactive Protein NT-Pro-B Natriuret Pep Albumin HDL Cholesterol TSH Arterial Blood Glucose Arterial Blood Ionized Calcium Hepatitis C Antibody Crossmatch 08/03/20 08/03/20 08/03/20 13:07 17:10 21:18 WBC RBC Hgb Hct MCV RDW Plt Count Lymph % (Auto) [place] % (Auto) Lymph # (Auto) [place] # (Auto) Seg Neutrophils % Seg Neuts % (Manual) Lymphocytes % (Manual) Nucleated RBC % Seg Neutrophils # Man Lymphocytes # (Manual) PT INR APTT D-Dimer ABG pH POC ABG pCO2 POC ABG pO2 ABG pO2 ABG HCO3 ABG Base Excess ABG Hemoglobin ABG Oxyhemoglobin ABG Potassium ABG Chloride ABG Glucose Oxyhemoglobin Carboxyhemoglobin Sodium Potassium Chloride Carbon Dioxide BUN Creatinine Glucose POC Glucose 121 H 139 H 134 H Calcium Phosphorus AST ALT Alkaline Phosphatase Lactate Dehydrogenase CK-MB (CK-2) CK-MB (CK-2) Rel Index Troponin T C-Reactive Protein NT-Pro-B Natriuret Pep Albumin HDL Cholesterol TSH Arterial Blood Glucose Arterial Blood Ionized Calcium Hepatitis C Antibody Crossmatch 08/03/20 08/04/20 08/04/20 23:31 05:21 05:24 WBC 12.8 H RBC 2.59 L Hgb 8.0 L Hct 24.1 L MCV RDW 17.4 H Plt Count Lymph % (Auto) [place] % (Auto) Lymph # (Auto) [place] # (Auto) Seg Neutrophils % Seg Neuts % (Manual) Lymphocytes % (Manual) Nucleated RBC % Seg Neutrophils # Man Lymphocytes # (Manual) PT INR APTT D-Dimer ABG pH POC ABG pCO2 POC ABG pO2 ABG pO2 ABG HCO3 ABG Base Excess ABG Hemoglobin ABG Oxyhemoglobin ABG Potassium ABG Chloride ABG Glucose Oxyhemoglobin Carboxyhemoglobin Sodium Potassium Chloride Carbon Dioxide BUN Creatinine Glucose POC Glucose 124 H 128 H Calcium Phosphorus AST ALT Alkaline Phosphatase Lactate Dehydrogenase CK-MB (CK-2) CK-MB (CK-2) Rel Index Troponin T C-Reactive Protein NT-Pro-B Natriuret Pep Albumin HDL Cholesterol TSH Arterial Blood Glucose Arterial Blood Ionized Calcium Hepatitis C Antibody Crossmatch 08/04/20 08/04/20 08/05/20 12:31 23:22 05:35 WBC RBC 2.27 L Hgb 7.1 L Hct 21.3 L MCV RDW 17.1 H Plt Count Lymph % (Auto) [place] % (Auto) Lymph # (Auto) [place] # (Auto) Seg Neutrophils % 76.3 H Seg Neuts % (Manual) Lymphocytes % (Manual) Nucleated RBC % Seg Neutrophils # Man Lymphocytes # (Manual) PT INR APTT D-Dimer ABG pH POC ABG pCO2 POC ABG pO2 ABG pO2 ABG HCO3 ABG Base Excess ABG Hemoglobin ABG Oxyhemoglobin ABG Potassium ABG Chloride ABG Glucose Oxyhemoglobin Carboxyhemoglobin Sodium Potassium Chloride Carbon Dioxide BUN Creatinine Glucose POC Glucose 196 H 162 H Calcium Phosphorus AST ALT Alkaline Phosphatase Lactate Dehydrogenase CK-MB (CK-2) CK-MB (CK-2) Rel Index Troponin T C-Reactive Protein NT-Pro-B Natriuret Pep Albumin HDL Cholesterol TSH Arterial Blood Glucose Arterial Blood Ionized Calcium Hepatitis C Antibody Crossmatch 08/05/20 08/05/20 08/05/20 05:35 06:06 12:04 WBC RBC Hgb Hct MCV RDW Plt Count Lymph % (Auto) [place] % (Auto) Lymph # (Auto) [place] # (Auto) Seg Neutrophils % Seg Neuts % (Manual) Lymphocytes % (Manual) Nucleated RBC % Seg Neutrophils # Man Lymphocytes # (Manual) PT INR APTT D-Dimer ABG pH POC ABG pCO2 POC ABG pO2 ABG pO2 ABG HCO3 ABG Base Excess ABG Hemoglobin ABG Oxyhemoglobin ABG Potassium ABG Chloride ABG Glucose Oxyhemoglobin Carboxyhemoglobin Sodium Potassium Chloride Carbon Dioxide 31 H BUN 41 H Creatinine 3.2 H Glucose 178 H POC Glucose 166 H 173 H Calcium 7.9 L Phosphorus AST ALT Alkaline Phosphatase Lactate Dehydrogenase CK-MB (CK-2) CK-MB (CK-2) Rel Index Troponin T C-Reactive Protein NT-Pro-B Natriuret Pep Albumin HDL Cholesterol TSH Arterial Blood Glucose Arterial Blood Ionized Calcium Hepatitis C Antibody Crossmatch 08/05/20 08/05/20 08/06/20 17:42 23:31 05:53 WBC RBC 2.10 L Hgb 6.6 L Hct 20.0 L MCV RDW 17.0 H Plt Count Lymph % (Auto) [place] % (Auto) 7.5 H Lymph # (Auto) [place] # (Auto) Seg Neutrophils % 72.7 H Seg Neuts % (Manual) Lymphocytes % (Manual) Nucleated RBC % Seg Neutrophils # Man Lymphocytes # (Manual) PT INR APTT D-Dimer ABG pH POC ABG pCO2 POC ABG pO2 ABG pO2 ABG HCO3 ABG Base Excess ABG Hemoglobin ABG Oxyhemoglobin ABG Potassium ABG Chloride ABG Glucose Oxyhemoglobin Carboxyhemoglobin Sodium Potassium Chloride Carbon Dioxide BUN Creatinine Glucose POC Glucose 189 H 173 H Calcium Phosphorus AST ALT Alkaline Phosphatase Lactate Dehydrogenase CK-MB (CK-2) CK-MB (CK-2) Rel Index Troponin T C-Reactive Protein NT-Pro-B Natriuret Pep Albumin HDL Cholesterol TSH Arterial Blood Glucose Arterial Blood Ionized Calcium Hepatitis C Antibody Crossmatch 08/06/20 08/06/20 08/06/20 05:53 05:54 09:00 WBC RBC Hgb Hct MCV RDW Plt Count Lymph % (Auto) [place] % (Auto) Lymph # (Auto) [place] # (Auto) Seg Neutrophils % Seg Neuts % (Manual) Lymphocytes % (Manual) Nucleated RBC % Seg Neutrophils # Man Lymphocytes # (Manual) PT INR APTT D-Dimer ABG pH POC ABG pCO2 POC ABG pO2 ABG pO2 ABG HCO3 ABG Base Excess ABG Hemoglobin ABG Oxyhemoglobin ABG Potassium ABG Chloride ABG Glucose Oxyhemoglobin Carboxyhemoglobin Sodium Potassium Chloride Carbon Dioxide 31 H BUN 63 H Creatinine 4.3 H Glucose 138 H POC Glucose 126 H Calcium 8.3 L Phosphorus AST ALT Alkaline Phosphatase Lactate Dehydrogenase CK-MB (CK-2) CK-MB (CK-2) Rel Index Troponin T C-Reactive Protein NT-Pro-B Natriuret Pep Albumin HDL Cholesterol TSH Arterial Blood Glucose Arterial Blood Ionized Calcium Hepatitis C Antibody Crossmatch See Detail 08/06/20 08/06/20 08/06/20 11:52 17:39 23:17 WBC RBC Hgb Hct MCV RDW Plt Count Lymph % (Auto) [place] % (Auto) Lymph # (Auto) [place] # (Auto) Seg Neutrophils % Seg Neuts % (Manual) Lymphocytes % (Manual) Nucleated RBC % Seg Neutrophils # Man Lymphocytes # (Manual) PT INR APTT D-Dimer ABG pH POC ABG pCO2 POC ABG pO2 ABG pO2 ABG HCO3 ABG Base Excess ABG Hemoglobin ABG Oxyhemoglobin ABG Potassium ABG Chloride ABG Glucose Oxyhemoglobin Carboxyhemoglobin Sodium Potassium Chloride Carbon Dioxide BUN Creatinine Glucose POC Glucose 177 H 190 H 184 H Calcium Phosphorus AST ALT Alkaline Phosphatase Lactate Dehydrogenase CK-MB (CK-2) CK-MB (CK-2) Rel Index Troponin T C-Reactive Protein NT-Pro-B Natriuret Pep Albumin HDL Cholesterol TSH Arterial Blood Glucose Arterial Blood Ionized Calcium Hepatitis C Antibody Crossmatch 08/07/20 08/07/20 08/07/20 05:15 05:37 12:09 WBC RBC 2.37 L Hgb 7.3 L Hct 21.8 L MCV RDW 16.5 H Plt Count Lymph % (Auto) [place] % (Auto) Lymph # (Auto) [place] # (Auto) Seg Neutrophils % Seg Neuts % (Manual) Lymphocytes % (Manual) Nucleated RBC % Seg Neutrophils # Man Lymphocytes # (Manual) PT INR APTT D-Dimer ABG pH POC ABG pCO2 POC ABG pO2 ABG pO2 ABG HCO3 ABG Base Excess ABG Hemoglobin ABG Oxyhemoglobin ABG Potassium ABG Chloride ABG Glucose Oxyhemoglobin Carboxyhemoglobin Sodium Potassium Chloride Carbon Dioxide BUN Creatinine Glucose POC Glucose 173 H 192 H Calcium Phosphorus AST ALT Alkaline Phosphatase Lactate Dehydrogenase CK-MB (CK-2) CK-MB (CK-2) Rel Index Troponin T C-Reactive Protein NT-Pro-B Natriuret Pep Albumin HDL Cholesterol TSH Arterial Blood Glucose Arterial Blood Ionized Calcium Hepatitis C Antibody Crossmatch 08/07/20 08/07/20 08/08/20 17:36 23:13 04:00 WBC RBC Hgb Hct MCV RDW Plt Count Lymph % (Auto) [place] % (Auto) Lymph # (Auto) [place] # (Auto) Seg Neutrophils % Seg Neuts % (Manual) Lymphocytes % (Manual) Nucleated RBC % Seg Neutrophils # Man Lymphocytes # (Manual) PT INR APTT D-Dimer ABG pH POC ABG pCO2 POC ABG pO2 ABG pO2 ABG HCO3 ABG Base Excess ABG Hemoglobin ABG Oxyhemoglobin ABG Potassium ABG Chloride ABG Glucose Oxyhemoglobin Carboxyhemoglobin Sodium 136 L Potassium Chloride 97.4 L Carbon Dioxide BUN 67 H Creatinine 4.4 H Glucose 120 H POC Glucose 170 H 193 H Calcium 7.9 L Phosphorus AST ALT Alkaline Phosphatase Lactate Dehydrogenase CK-MB (CK-2) CK-MB (CK-2) Rel Index Troponin T C-Reactive Protein NT-Pro-B Natriuret Pep Albumin HDL Cholesterol TSH Arterial Blood Glucose Arterial Blood Ionized Calcium Hepatitis C Antibody Crossmatch 08/08/20 08/08/20 05:30 11:19 WBC RBC Hgb Hct MCV RDW Plt Count Lymph % (Auto) [place] % (Auto) Lymph # (Auto) [place] # (Auto) Seg Neutrophils % Seg Neuts % (Manual) Lymphocytes % (Manual) Nucleated RBC % Seg Neutrophils # Man Lymphocytes # (Manual) PT INR APTT D-Dimer ABG pH POC ABG pCO2 POC ABG pO2 ABG pO2 ABG HCO3 ABG Base Excess ABG Hemoglobin ABG Oxyhemoglobin ABG Potassium ABG Chloride ABG Glucose Oxyhemoglobin Carboxyhemoglobin Sodium Potassium Chloride Carbon Dioxide BUN Creatinine Glucose POC Glucose 117 H 149 H Calcium Phosphorus AST ALT Alkaline Phosphatase Lactate Dehydrogenase CK-MB (CK-2) CK-MB (CK-2) Rel Index Troponin T C-Reactive Protein NT-Pro-B Natriuret Pep Albumin HDL Cholesterol TSH Arterial Blood Glucose Arterial Blood Ionized Calcium Hepatitis C Antibody Crossmatch Allied health notes reviewed: nursing
[2020-08-08 15:44] VITALS: BP 118/62
== END 2020-08-08 15:30 | disposition hospice, inpatient (51) | DRG 870 ==
LOC: ED 07:08 → IMCU 10:01 → CC1 07-22 10:04
PROVIDERS: ADMIT Internal Medicine; ATTEND Internal Medicine
PROC: 0BH17EZ Insertion of Endotracheal Airway into Trachea, Via Natural or Artificial Opening (ICD-10-PCS; principal; 2020-07-22)
PROC: 4A033R1 Measurement of Arterial Saturation, Peripheral, Percutaneous Approach (ICD-10-PCS; 2020-07-22)
PROC: 5A1955Z Respiratory Ventilation, Greater than 96 Consecutive Hours (ICD-10-PCS; 2020-07-22)
PROC: 02H633Z Insertion of Infusion Device into Right Atrium, Percutaneous Approach (ICD-10-PCS; 2020-07-22)
PROC: B5181ZA Fluoroscopy of Superior Vena Cava using Low Osmolar Contrast, Guidance (ICD-10-PCS; 2020-07-22)
PROC: 5A1D70Z Performance of Urinary Filtration, Intermittent, Less than 6 Hours Per Day (ICD-10-PCS; 2020-07-23)
PROC: 5A1D70Z Performance of Urinary Filtration, Intermittent, Less than 6 Hours Per Day (ICD-10-PCS; 2020-07-24)
PROC: 5A1D70Z Performance of Urinary Filtration, Intermittent, Less than 6 Hours Per Day (ICD-10-PCS; 2020-07-25)
PROC: 02HV33Z Insertion of Infusion Device into Superior Vena Cava, Percutaneous Approach (ICD-10-PCS; 2020-07-26)
PROC: 5A1D70Z Performance of Urinary Filtration, Intermittent, Less than 6 Hours Per Day (ICD-10-PCS; 2020-07-27)
PROC: 5A1D70Z Performance of Urinary Filtration, Intermittent, Less than 6 Hours Per Day (ICD-10-PCS; 2020-07-28)
PROC: 30230N1 Transfusion of Nonautologous Red Blood Cells into Peripheral Vein, Open Approach (ICD-10-PCS; 2020-07-29)
PROC: 5A1D70Z Performance of Urinary Filtration, Intermittent, Less than 6 Hours Per Day (ICD-10-PCS; 2020-07-30)
PROC: 5A1D70Z Performance of Urinary Filtration, Intermittent, Less than 6 Hours Per Day (ICD-10-PCS; 2020-08-01)
PROC: 5A1D70Z Performance of Urinary Filtration, Intermittent, Less than 6 Hours Per Day (ICD-10-PCS; 2020-08-02)
PROC: 5A1D70Z Performance of Urinary Filtration, Intermittent, Less than 6 Hours Per Day (ICD-10-PCS; 2020-08-03)
PROC: 5A1D70Z Performance of Urinary Filtration, Intermittent, Less than 6 Hours Per Day (ICD-10-PCS; 2020-08-04)
PROC: 5A1D70Z Performance of Urinary Filtration, Intermittent, Less than 6 Hours Per Day (ICD-10-PCS; 2020-08-06)
PROC: 5A1D70Z Performance of Urinary Filtration, Intermittent, Less than 6 Hours Per Day (ICD-10-PCS; 2020-08-07)
PROC: 5A1D70Z Performance of Urinary Filtration, Intermittent, Less than 6 Hours Per Day (ICD-10-PCS; 2020-08-08)
DX: A41.01 Sepsis due to Methicillin susceptible Staphylococcus aureus (principal); J96.01 Acute respiratory failure with hypoxia; I21.A1 Myocardial infarction type 2; E43 Unspecified severe protein-calorie malnutrition; Z20.822 Contact with and (suspected) exposure to COVID-19; E87.5 Hyperkalemia; E87.1 Hypo-osmolality and hyponatremia; N17.0 Acute kidney failure with tubular necrosis; E87.70 Fluid overload, unspecified; N18.31 Chronic kidney disease, stage 3a; I42.9 Cardiomyopathy, unspecified; T68.XXXA Hypothermia, initial encounter; D64.9 Anemia, unspecified; G92 Toxic encephalopathy; I13.0 Hypertensive heart and chronic kidney disease with heart failure and stage 1 through stage 4 chronic kidney disease, or unspecified chronic kidney disease; I50.9 Heart failure, unspecified; E78.5 Hyperlipidemia, unspecified; E11.21 Type 2 diabetes mellitus with diabetic nephropathy; E11.22 Type 2 diabetes mellitus with diabetic chronic kidney disease; E66.9 Obesity, unspecified; D61.818 Other pancytopenia; I95.9 Hypotension, unspecified; G40.909 Epilepsy, unspecified, not intractable, without status epilepticus; D72.819 Decreased white blood cell count, unspecified; D69.6 Thrombocytopenia, unspecified; F32.9 Major depressive disorder, single episode, unspecified; Z79.899 Other long term (current) drug therapy; Z79.891 Long term (current) use of opiate analgesic; Z79.01 Long term (current) use of anticoagulants; Z86.73 Personal history of transient ischemic attack (TIA), and cerebral infarction without residual deficits; Z68.37 Body mass index [BMI] 37.0-37.9, adult
CPT/HCPCS: 31500; 36415; 36600; 70450; 70551; 71045; 74018; 76770; 80048; 80053; 80061; 80074; 80076; 80202; 82140; 82270; 82550; 82553; 82728; 82803; 82805; 82947; 82962; 83615; 83735; 83880; 84100; 84145; 84439; 84443; 84484; 85007; 85018; 85025; 85027; 85379; 85610; 85730; 86022; 86140; 86850; 86900; 86901; 86920; 87040; 87070; 87076; 87086; 87205; 93005; 93970; 94002; 94003; 95819; 96365; 99292; G0378; J0171; J0461; J0610; J0690; J0692; J0885; J1205; J1265; J1644; J1815; J1940; J2060; J2250; J2310; J3010; J3370; J7030; J7040; P9016; P9047; U0003